=== PATIENT | female | born 1955 | race Caucasian/White ===

== ENCOUNTER 2023-05-03 12:42 | Emergency (ER) | payer MEDICARE, SELFPAY ==
[2023-05-03 12:50] VITALS: BP 169/110; PULSE 67; RESP 20; TEMP 36.6; O2SAT 98; BMI 42.6
--- NOTE | 2023-05-03 12:56 | ED.GENADUL1 ---
HPI - General Adult General Chief complaint: Recheck/Abnormal Lab/Rx Stated complaint: ABNORMAL LAB READING Time Seen by Provider: 05/03/23 12:55 Source: patient Mode of arrival: walk-in History of Present Illness HPI narrative: Was sent to us by her primary care doctor after her blood work-up shows abnormalities but she has been complaining of generalized weakness tiredness and fogginess that is new, there was no acute symptoms of cough fever chills or any other complaint there was no abdominal pain or diarrhea The patient have a history of breast cancer that got treated few years ago no active cancer at the moment showed he had radiation and surgery The patient denies any other complaints She mentioned that she had this weakness noticed when she was having her vacation a week ago Related Data Home Medications Medication Instructions Recorded Confirmed Lactobacillus acidophilus 100 mg PO DAILY 05/03/23 05/03/23 (Acidophilus capsule) ascorbic acid (vitamin C) 500 mg 500 mg PO DAILY 05/03/23 05/03/23 capsule ashwagandha extract PO 05/03/23 biotin 5,000 mcg sublingual tablet 5,000 mcg sublingual DAILY 05/03/23 05/03/23 bupropion HCl 75 mg tablet 75 mg PO DAILY 05/03/23 05/03/23 calcium carb-ergocalciferol (vit tab PO DAILY 05/03/23 D2) 600 mg calcium-200 unit tablet calcium polycarbophil 625 mg 1,250 mg PO DAILY 05/03/23 05/03/23 tablet (Fiber-Lax) cartilage 40 mg-collagen II 10 tab PO DAILY 05/03/23 mg-boron 5 mg-hyaluronate 3.3 mg tablet ([facility]) cholecalciferol (vitamin D3) 25 5,000 unit PO DAILY 05/03/23 05/03/23 mcg (1,000 unit) capsule omeprazole 20 mg capsule,delayed 20 mg PO DAILY 05/03/23 05/03/23 release zinc sulfate 25 mg zinc (110 mg) 25 mg PO DAILY 05/03/23 05/03/23 tablet (Orazinc) Review of Systems ROS Status of ROS 10 or more systems reviewed and unremarkable except as noted in history and below Exam Narrative Exam Narrative: Nurses notes and vital signs reviewed and patient is not hypoxic. General: Well-appearing and in no apparent distress. Skin: Warm, dry, no pallor noted. No rash. Head: Normocephalic, atraumatic. Neck: Supple, non-tender. Eye: Pupils are equal, round and EOMI. No scleral icterus. Ears, Nose, Mouth, and Throat: TM are clear, no nasal mucosal hypertrophy. Oral mucosa is moist, no posterior oropharynx erythema, uvula is mid-line Cardiovascular: Regular Rate and Rhythm without murmur, gallop or rub. Respiratory: No accessory muscle use or respiratory distress. Lungs are clear to auscultation, no wheezing, rales or rhonchi Chest Wall: no tenderness Back: No midline thoracic or lumbar vertebral tenderness. No CVA tenderness Musculoskeletal: normal ROM, no calf or popliteal tenderness, no lower extremity edema/swelling GI: Abdomen is soft, non-distended. Normal bowel sounds. No masses appreciated. No tenderness to palpation. No rebound, guarding, or rigidity noted. Neurological: A&O x4. No cranial nerve dysfunction observed. No truncal ataxia. Moves all extremities. Sensation intact. Psychiatric: Cooperative and interactive. Normal mood and affect. Constitutional Vital Signs, click to edit/add: Last Vital Signs Temp 98 F 05/03/23 12:50 Pulse 78 05/03/23 15:16 Resp 18 05/03/23 15:16 BP 129/98 H 05/03/23 15:16 Pulse Ox 97 05/03/23 15:16 O2 Del Method Room Air 05/03/23 15:16 Course Vital Signs Vital signs: Vital Signs Temperature 98 F 05/03/23 12:50 Pulse Rate 67 05/03/23 12:50 Respiratory Rate 20 05/03/23 12:50 Blood Pressure 169/110 H 05/03/23 12:50 Pulse Oximetry 98 05/03/23 12:50 Temperature 98 F 05/03/23 12:50 Pulse Rate 78 05/03/23 15:16 Respiratory Rate 18 05/03/23 15:16 Blood Pressure 129/98 H 05/03/23 15:16 Pulse Oximetry 97 05/03/23 15:16 Oxygen Delivery Method Room Air 05/03/23 15:16 Medical Decision Making MDM Narrative Medical decision making narrative: The patient presenting to us with generalized weakness and fogginess and shortness of breath on exertion that is the main reason for the patient to come, she already had a blood work-up done yesterday that showed that her hemoglobin dropped from around 12 as per the pt to 8.9 Platelets of 24 and white blood cells of 1.5 and hg is just above 8 I did speak with the hematology service , Dr Sanabria in hematology service was consulted and he requested that the patient be transferred to [facility] as she might need bone marrow biopsy And I spoke with in [facility] and he requested CAT scan head which came up normal The patient orthostatic negative as well Lab Data Labs: Lab Results 05/03/23 05/03/23 Range/Units 13:11 14:36 WBC 1.5 L (4.0-11.0) 10^3/uL RBC 2.36 L (4.20-5.40) 10^6/uL Hgb 8.4 L (12.0-16.0) g/dL Hct 24.8 L (36.0-48.0) % MCV 105.1 H (81.0-99.0) fL MCH 35.6 H (26.7-34.0) pg MCHC 33.9 (29.9-35.2) g/dL RDW 17.7 H (11.0-15.0) % Plt Count 24 L* (150-450) 10^3/uL Seg Neuts % (Manual) 15.0 Lymphocytes % (Manual) 79.0 H (20.5-60.0) % Monocytes % (Manual) 6.0 (1.7-12.0) % Eosinophils % (Manual) 0.0 L (0.9-7.0) % Basophils % (Manual) 0.0 L (0.2-2.0) % Neutrophils # (Manual) 0.22 L (1.4-6.5) 10^3/uL Lymphocytes # (Manual) 1.18 L (1.20-3.80) 10^3/uL Monocytes # (Manual) 0.09 L (0.30-0.80) 10^3/uL Eosinophils # (Manual) 0.00 (0.00-0.70) 10^3/uL Basophils # (Manual) 0.00 (0.00-0.10) 10^3/uL Poikilocytosis 1+ Anisocytosis 1+ Ovalocytes 1+ Acanthocytes (Spur) 1+ PT 10.7 (9.0-11.6) sec INR 1.01 Sodium 134 L (136-145) mmol/L Potassium 3.7 (3.5-5.1) mmol/L Chloride 104 (98-107) mmol/L Carbon Dioxide 26.1 (21.0-32.0) mmol/L Anion Gap 7.6 BUN 16.0 (7.0-18.0) mg/dL Creatinine 1.04 H (0.55-1.02) mg/dL Est GFR ( Amer) >60 (>=60) Est GFR (Non-Af Amer) 53 L (>=60) BUN/Creatinine Ratio 15.4 Glucose 120 H (74-106) mg/dL Calcium 8.9 (8.5-10.1) mg/dL Total Bilirubin 0.3 (0.2-1.0) mg/dL AST 22 (15-37) U/L ALT 40 (14-59) U/L Alkaline Phosphatase 62 (46-116) U/L Troponin I High Sens 4.8 (4.0-51.3) pg/mL Total Protein 7.3 (6.4-8.2) g/dL Albumin 3.9 (3.4-5.0) g/dL Globulin 3.4 g/dL Albumin/Globulin Ratio 1.1 Stool Occult Blood Negative Blood Type O Positive Antibody Screen Negative Discharge Plan Discharge Chief Complaint: Recheck/Abnormal Lab/Rx Clinical Impression: Pancytopenia, Symptomatic anemia Patient Disposition: [facility]
--- NOTE | 2023-05-03 12:57 | ECG_ITS ---
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
--- NOTE | 2023-05-03 13:04 | XR_ITS ---
The [address] [address] Patient Name: NABIL THOMPSON MRN: [id number] date: 1955 Sex: F Assigned Patient Location: ER Current Patient Location: ER Accession/Order Number: [id number] Exam Date: 05/03/2023 13:15 Report Date: 05/03/2023 13:37 At the request of: ELHAM ESTES Procedure: XR chest 1V EXAMINATION: XR chest 1V 05/03/2023 10:36 AM PDT HISTORY: sob TECHNIQUE: Single frontal view of the chest acquired. COMPARISONS: None. FINDINGS: Lines/tubes/other: None. Heart and mediastinum: The heart and the mediastinum are within normal limits for technique. Bones: No acute osseous abnormality. Lungs: The lungs are clear. There is no evidence of pneumonia or pulmonary edema. Pleura: There is no significant pleural effusion or pneumothorax. Other: None. XR/XR chest 1V IMPRESSION: No acute cardiopulmonary abnormality. Electronically authenticated by: BONNY VALLE Date: 05/03/2023 13:37
[2023-05-03 13:24] LABS: Hematocrit 24.8 % (36.0-48.0); Hemoglobin 8.4 g/dL (12.0-16.0); Mean Corpuscular HGB Conc 33.9 g/dL (29.9-35.2); Mean Corpuscular Hemoglobin 35.6 pg (26.7-34.0); Mean Corpuscular Volume 105.1 fL (81.0-99.0); Red Blood Count 2.36 10^6/uL (4.20-5.40); Red Cell Distribution Width 17.7 % (11.0-15.0); White Blood Count 1.5 10^3/uL (4.0-11.0)
[2023-05-03 13:42] LABS: Alanine Aminotransferase 40 U/L (14-59); Albumin Globulin Ratio 1.1; Albumin Level 3.9 g/dL (3.4-5.0); Alkaline Phosphatase 62 U/L (46-116); Anion Gap 7.6; Aspartate Amino Transferase 22 U/L (15-37); BUN Creatinine Ratio 15.4; Bilirubin Total 0.3 mg/dL (0.2-1.0); Calcium 8.9 mg/dL (8.5-10.1); Carbon Dioxide 26.1 mmol/L (21.0-32.0); Chloride 104 mmol/L (98-107); Estimated GFR (African America >60 (>=60); Estimated GFR (Non-African Ame 53 (>=60); Globulin 3.4 g/dL; Glucose 120 mg/dL (74-106); Potassium 3.7 mmol/L (3.5-5.1); Sodium 134 mmol/L (136-145); Total Protein 7.3 g/dL (6.4-8.2); Troponin I High Sensitivity 4.8 pg/mL (4.0-51.3)
[2023-05-03 14:04] LABS: Platelet Count 24 10^3/uL (150-450)
[2023-05-03 14:21] LABS: Lymphocytes Absolute Manual 1.18 10^3/uL (1.20-3.80); Monocytes Absolute Manual 0.09 10^3/uL (0.30-0.80); Segmented Neut Absolute Manual 0.22 10^3/uL (1.4-6.5)
[2023-05-03 14:23] LABS: Acanthocytes 1+; Anisocytosis 1+; Ovalocytes 1+; Poikilocytosis 1+
[2023-05-03 14:38] LABS: INR 1.01; Prothrombin Time 10.7 sec (9.0-11.6)
[2023-05-03 15:16] VITALS: BP 129/98; PULSE 78; RESP 18; O2SAT 97
[2023-05-03 15:28] LABS: Occult Blood Negative
--- NOTE | 2023-05-03 16:02 | CT_ITS ---
The [address] [address] Patient Name: NABIL THOMPSON MRN: [id number] date: 1955 Sex: F Assigned Patient Location: ER Current Patient Location: ER Accession/Order Number: [id number] Exam Date: 05/03/2023 16:21 Report Date: 05/03/2023 16:35 At the request of: ELHAM ESTES Procedure: CT head/brain wo con EXAM: CT head/brain wo con HISTORY: dizziness COMPARISON: None. TECHNIQUE: Axial CT images were obtained of the head without intravenous contrast. Multiplanar reconstructions were performed. FINDINGS: No acute intracranial hemorrhage. No acute loss of rodriguez/white differentiation. The ventricles and sulci are prominent due to mild parenchymal volume loss The osseous structures are unremarkable. No soft tissue abnormality identified. The paranasal sinuses and mastoid air cells are clear. CT/CT head/brain wo con IMPRESSION: 1. No acute intracranial abnormality. 2. Mild atrophy. Electronically authenticated by: NELSON HAWK Date: 05/03/2023 16:35
[2023-05-03 20:49] VITALS: BP 158/93; PULSE 85; RESP 18; O2SAT 97
== END 2023-05-03 22:04 | disposition short-term general hospital (02) ==
PROVIDERS: Emergency Provider Emergency Medicine; PCP Family Medicine
DX: D61.818 Other pancytopenia (principal); D64.9 Anemia, unspecified; Z85.3 Personal history of malignant neoplasm of breast; Z79.899 Other long term (current) drug therapy; R06.02 Shortness of breath
CPT/HCPCS: 36415; 70450; 71045; 80053; 84484; 85027; 85610; 86850; 86900; 86901; 93005; 99285; G0328

== ENCOUNTER 2023-05-11 10:45 | Outpatient (OUT) | payer MEDICARE, SELFPAY ==
[2023-05-11 11:34] LABS: Hemoglobin 8.4 g/dL (12.0-16.0); Mean Corpuscular HGB Conc 35.3 g/dL (29.9-35.2); Mean Corpuscular Volume 99.2 fL (81.0-99.0); Red Cell Distribution Width 18.4 % (11.0-15.0); White Blood Count 1.6 10^3/uL (4.0-11.0)
[2023-05-11 15:43] LABS: Hematocrit 23.8 % (36.0-48.0); Platelet Count 26 10^3/uL (150-450)
[2023-05-11 15:44] LABS: Eosinophils Absolute Manual 0.03 10^3/uL (0.00-0.70); Lymphocytes Absolute Manual 1.37 10^3/uL (1.20-3.80); Monocytes Absolute Manual 0.06 10^3/uL (0.30-0.80); Segmented Neut Absolute Manual 0.12 10^3/uL (1.4-6.5)
[2023-05-11 15:45] LABS: Polychromasia 1+
[2023-05-11 15:46] LABS: Hypochromasia 1+; Poikilocytosis 2+
[2023-05-11 15:47] LABS: Acanthocytes 1+; Anisocytosis 2+; Ovalocytes 1+; Tear Drop Cells 1+
== END 2023-05-11 23:59 | disposition home or self-care (01) ==
PROVIDERS: PCP Family Medicine
DX: C92.00 Acute myeloblastic leukemia, not having achieved remission (principal)
CPT/HCPCS: 36415; 85027

== ENCOUNTER 2023-05-25 10:50 | Day surgery (SDC) | payer MEDICARE, SELFPAY ==
[2023-05-25] VITALS (12 sets, daily range): BP systolic 134–176; BP diastolic 79–98; PULSE 66–82; RESP 10–19; TEMP 36.1–36.2; O2SAT 96–100; BMI 41.5
[2023-05-25 10:50] LABS: Hematocrit 24.5 % (36.0-48.0); Hemoglobin 8.5 g/dL (12.0-16.0); Mean Corpuscular HGB Conc 34.7 g/dL (29.9-35.2); Mean Corpuscular Hemoglobin 35.1 pg (26.7-34.0); Mean Corpuscular Volume 101.2 fL (81.0-99.0); Platelet Count 59 10^3/uL (150-450); Red Blood Count 2.42 10^6/uL (4.20-5.40); Red Cell Distribution Width 18.1 % (11.0-15.0); White Blood Count 1.4 10^3/uL (4.0-11.0)
[2023-05-25 11:39] LABS: Segmented Neut Absolute Manual 0.07 10^3/uL (1.4-6.5)
[2023-05-25 11:40] LABS: Lymphocytes Absolute Manual 1.26 10^3/uL (1.20-3.80); Monocytes Absolute Manual 0.05 10^3/uL (0.30-0.80)
[2023-05-25] MEDS: LACTATED RINGER'S SOLUTION 1,000 ML 50 ML IV (11:40)
[2023-05-25 11:41] LABS: Anisocytosis 1+; Poikilocytosis 1+
[2023-05-25 11:42] LABS: Acanthocytes 1+; Tear Drop Cells 1+
[2023-05-25] MEDS: CEFAZOLIN SODIUM/DEXTROSE,ISO 2 GM/50 ML PIGGYBACK IV (12:51)
[2023-05-25] MEDS: LIDOCAINE HCL 1%-EPINEPHRINE 1:100,000 10 ML MDV INJ (14:08)
--- NOTE | 2023-05-25 15:29 | XR_ITS ---
The [address] [address] Patient Name: NABIL THOMPSON MRN: [id number] date: 1955 Sex: F Assigned Patient [facility] Current Patient Location: [facility] Accession/Order Number: [id number] Exam Date: 05/25/2023 15:45 Report Date: 05/25/2023 15:58 At the request of: PREM HAWTHORNE Procedure: XR chest 1V EXAM: XR chest 1V at 1511 hours HISTORY: port placement COMPARISON: 05/03/2023 TECHNIQUE: AP upright portable chest x-ray FINDINGS: The heart remains borderline enlarged without evidence of cardiac decompensation. No acute infiltrate, effusion or pneumothorax is identified. There has been interval placement of a right internal jugular central venous catheter with the tip projecting over the upper aspect of the superior vena cava. The osseous structures are grossly intact. XR/XR chest 1V IMPRESSION: No acute infiltrate or evidence of cardiac decompensation. The right-sided central venous catheter has been place without an apparent, a process. The overall appearance of the chest is otherwise unchanged. Electronically authenticated by: ROSALIO SON Date: 05/25/2023 15:58
--- NOTE | 2023-05-25 15:34 | P.GSPRC_ITS ---
Date of procedure: 05/25/23 Indications for Procedure: This patient is a 14-year-old female who was recently diagnosed with acute myelogenous leukemia. She was seen by medical oncology and was recommended to initiate chemotherapy and therefore port placement was requested. The risks benefits options and potential complications of the procedure were discussed in detail with the patient and her and she agreed to proceed and consent was signed. Pre-op diagnosis: acute leukemia, need for long-term IV access Post-op diagnosis: same as pre-op Procedure: port placement with fluoroscopy and intraoperative ultrasound Anesthesia: ARACELISA Surgeon: Neville Lagos Procedure Summary: Patient brought to the operating room placed in the supine position. Gen. anesthesia was induced the patient was intubated. The chest and neck area was prepped and draped in usual sterile fashion. Patient received IV antibiotics preoperatively. Access to the right subclavian vein was initially attempted. Patient's clavicle was quite deep and I was unable to pass the needle below this and attempted this only twice with planned access of the right internal jugular vein. Initial attempts with a twenty-two needle were unsuccessful to localize the vein. At this point intraoperative ultrasound was performed. The vein was identified and appeared to be easily collapsible. This subsequently was able to be accessed and a guidewire placed through the access needle into the superior vena cava with fluoroscopy confirming its position. At this point a site in the right chest was infiltrated with one percent lidocaine with epinephrine. An incision was made and a subcutaneous change pocket for the port reservoir was created with cautery and blunt dissection. The port was then placed into this subcutaneous pocket. A small incision is made at the wire exit site. A tunneling device brought the port catheter from the chest incision out through the neck incision. The catheter was then cut to appropriate length. At this point the dilator and tear-away sheath were placed over the guidewire and advanced. Once again due to a very difficult steep angle I was unable to pass the dilator over the wire. We then obtained a smaller stiffer dilator from a triple-lumen kit which I was able to pass its entire length over the wire passed dilating the tract to some degree. We then obtained a new dilator from a 2nd port kit and this time I was able to advance the dilator completely to its length over the wire. The wire and dilator were then removed and the catheter threaded into the tear-away sheath. The sheath was gradually withdrawn the catheter appearing to be in proper position. I then accessed the port and unfortunately there was no blood return and it did not flush. Using fluoroscopy there appeared to be possibly a slight kink in the neck region. I attempted to loosen this at the neck site. This was unsuccessful. I removed the port from the subcutaneous po cket and retracted the catheter a couple centimeters. I then accessed the port and at this time good blood return and easy flush was noted. We then shortened the catheter at the reservoir site and placed it back into the subcutaneous pocket. Once again we accessed it with good blood return and it flushed easily. The subcutaneous tissue of the chest incision was reapproximated with interrupted sutures of 3-0 Vicryl. The neck incision was closed with interrupted sutures of 4-0 Vicryl. Subcuticular running sutures were placed in the chest incision of 4-0 Vicryl. Sponge and needle instrument counts were correct at the end of the procedure. The patient tolerated the procedure well and was transferred to the recovery area where a chest x-ray will be obtained. Estimated blood loss (mL): 15 Specimens: none Complications: No
[2023-05-25] MEDS: ACETAMINOPHEN 1,000 MG/100 ML PREMIX 400 MG IV (16:21)
== END 2023-05-25 17:37 | disposition home or self-care (01) ==
LOC: SURGOUT 05-28 08:39
PROVIDERS: Anesthesiology; PCP Family Medicine; Visit Provider Surgery
PROC: (CPT 36561; principal; 2023-05-25 10:15)
DX: C92.00 Acute myeloblastic leukemia, not having achieved remission (principal); Z79.899 Other long term (current) drug therapy; Z90.710 Acquired absence of both cervix and uterus; Z85.3 Personal history of malignant neoplasm of breast; D61.818 Other pancytopenia; C92.92 Myeloid leukemia, unspecified in relapse
CPT/HCPCS: 36561; 36415; 36430; 71045; 76000; 85027; 99211; C1778; J2704; P9038

== ENCOUNTER 2023-05-27 08:42 | Emergency (ER) | payer MEDICARE, SELFPAY ==
[2023-05-27] VITALS (19 sets, daily range): BP systolic 130–160; BP diastolic 79–92; PULSE 61–86; RESP 12–26; TEMP 36.7; O2SAT 92–99; BMI 42.3
--- NOTE | 2023-05-27 08:57 | ECG_ITS ---
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
--- NOTE | 2023-05-27 08:57 | XR_ITS ---
The [address] [address] Patient Name: NABIL THOMPSON MRN: [id number] date: 1955 Sex: F Assigned Patient Location: ER Current Patient Location: ER Accession/Order Number: [id number] Exam Date: 05/27/2023 09:05 Report Date: 05/27/2023 09:36 At the request of: SHERMAN PUCKETT Procedure: XR chest 1V HISTORY: General body pain and Weakness. Status post port placement. XR chest 1V: 05/27/2023 9:05 AM EDT COMPARISON: Portable AP chest 05/25/2023 at 3:11 PM FINDINGS: The heart appears negative limits of normal in size allowing for the portable technique. No focal consolidation, pleural effusion, pneumothorax or evidence of congestive heart failure seen. Mild elevation of the right hemidiaphragm is again seen. A right internal jugular port catheter is again seen. The tip of this catheter has pulled back slightly since the prior study and appears to be probably coiled in the region of the right internal jugular vein in the supraclavicular region. XR/XR chest 1V IMPRESSION: 1. The tip of the right internal jugular port catheter has pulled back since the prior study and now appears to be in an abnormal position and is probably coiled in the region of the right internal jugular vein in the supraclavicular region. 2. No radiographic evidence of active cardiopulmonary disease is seen. Electronically authenticated by: COURT MCCURDY Date: 05/27/2023 09:36
--- NOTE | 2023-05-27 08:58 | ED.WEAKNESS1 ---
HPI - Weakness General Chief complaint: Weakness Stated complaint: GENERAL WEAKNESS Time Seen by Provider: 05/27/23 08:45 Source: patient Mode of arrival: walk-in Limitations: no limitations History of Present Illness HPI Narrative: 67-year-old female presents to the emergency department for weakness. 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 She is scheduled to start chemotherapy tomorrow. Last week she had blood transfusion and a platelet transfusion. No fever. No cough or shortness of breath or chest pain. She feels stiff. Related Data Home Medications Medication Instructions Recorded Confirmed Lactobacillus acidophilus 100 mg PO DAILY 05/03/23 05/03/23 (Acidophilus capsule) ascorbic acid (vitamin C) 500 mg 500 mg PO DAILY 05/03/23 05/25/23 capsule ashwagandha extract PO 05/03/23 biotin 5,000 mcg sublingual tablet 5,000 mcg sublingual DAILY 05/03/23 05/03/23 bupropion HCl 75 mg tablet 75 mg PO DAILY 05/03/23 05/03/23 calcium carb-ergocalciferol (vit tab PO DAILY 05/03/23 D2) 600 mg calcium-200 unit tablet calcium polycarbophil 625 mg 1,250 mg PO DAILY 05/03/23 05/03/23 tablet (Fiber-Lax) cartilage 40 mg-collagen II 10 tab PO DAILY 05/03/23 mg-boron 5 mg-hyaluronate 3.3 mg tablet ([facility]) cholecalciferol (vitamin D3) 25 5,000 unit PO DAILY 05/03/23 05/03/23 mcg (1,000 unit) capsule omeprazole 20 mg capsule,delayed 20 mg PO DAILY 05/03/23 05/25/23 release zinc sulfate 25 mg zinc (110 mg) 25 mg PO DAILY 05/03/23 05/03/23 tablet (Orazinc) acyclovir 400 mg tablet 400 mg PO BID 05/25/23 05/25/23 ciprofloxacin HCl 500 mg tablet 500 mg PO BID 05/25/23 05/25/23 (Cipro) Previous Rx's Medication Instructions Recorded acetaminophen 300 mg-codeine 30 mg 1 tab PO Q6H PRN pain #20 tabs 05/27/23 tablet ondansetron 4 mg disintegrating 4 mg PO Q6H PRN nausea and 05/27/23 tablet vomiting #20 tabs Allergies Allergy/AdvReac Type Severity Reaction Status Date / Time acetaminophen [From Vicodin] AdvReac Verified 05/25/23 10:40 hydrocodone [From Vicodin] AdvReac Verified 05/25/23 10:40 [facility] Medical History (Updated 05/27/23 @ 11:49 by Jay Hendricks MD) Surgical History (Updated 05/24/23 @ 15:05 by Steffanie Rutherford) Family History (Updated 05/24/23 @ 15:07 by Steffanie Rutherford) Father Family history of cancer Family history of hypertension Mother Family history of hypertension Grandfather Family history of cancer Grandmother Family history of cancer Aunt Family history of cancer Social History (Updated 05/25/23 @ 10:37 by John Galindo) Within the past year, how often did you have a drink containing alcohol: monthly or less Within the past year, how many standard drinks containing alcohol did you have on a typical day: 1 or 2 Total score: 0 Score interpretation: A score less than 3 is consistent with normal alcohol consumption. Smoking status: Never smoker Exam Narrative Exam Narrative: Nurses note and vital signs reviewed and patient is not hypoxic. General: The patient appears well and in no apparent distress. Patient is resting comfortably on cart. Skin: Warm, dry, no pallor noted. There is no rash noted. Head: Normocephalic, atraumatic Eye: Normal conjunctiva, no drainage Ears, Nose, Mouth, and Throat: oral mucosa is moist. Nares patent. Cardiovascular: Regular Rate and Rhythm Respiratory: Patient is in no distress, no accessory muscle use, lungs are clear to auscultation, no wheezing, rales or rhonchi, port site appears clean without erythema Back: non-tender GI: soft and nontender Musculoskeletal: The patient has no evidence of calf tenderness, no pitting edema, symmetrical pulses noted bilaterally Neurological: A&O, normal speech Psychiatric: Cooperative Constitutional Vital Signs, click to edit/add: Last Vital Signs Temp 98.1 F 05/27/23 08:45 Pulse 66 05/27/23 11:40 Resp 23 05/27/23 11:40 BP 130/81 05/27/23 11:00 Pulse Ox 99 05/27/23 11:40 O2 Del Method Room Air 05/27/23 08:57 Course Vital Signs Vital signs: Vital Signs Temperature 98.1 F 05/27/23 08:45 Pulse Rate 86 05/27/23 08:45 Respiratory Rate 18 05/27/23 08:45 Blood Pressure 160/80 H 05/27/23 08:45 Pulse Oximetry 98 05/27/23 08:45 Oxygen Delivery Method Room Air 05/27/23 08:45 Temperature 98.1 F 05/27/23 08:45 Pulse Rate 66 05/27/23 11:40 Respiratory Rate 23 05/27/23 11:40 Blood Pressure 130/81 05/27/23 11:00 Pulse Oximetry 99 05/27/23 11:40 Oxygen Delivery Method Room Air 05/27/23 08:57 MDM - Weakness MDM Narrative Medical decision making narrative: Hemoglobin is 7.7 and platelet count is thirty-four. It appears that the tip of her porch has migrated to the supraclavicular internal jugular vein. This finding was discussed with the patient and her . I've discussed the case with her oncologist. She'll be discharged home today and she will come back tomorrow for her 1st round of chemotherapy. I've explained to the patient that they may need to use a peripheral IV for the chemotherapy. She does not require admission to the hospital at this point. Treatment diagnosis and follow-up were discussed thoroughly. Differential Diagnosis Differential diagnosis: Likely anemia, hypoglycemia, dehydration and other (urinary tract infection, pneumonia) Lab Data Attestation: I reviewed the patient's lab results. Labs: Lab Results 05/27/23 05/27/23 Range/Units 08:50 09:57 WBC 1.4 L (4.0-11.0) 10^3/uL RBC 2.19 L (4.20-5.40) 10^6/uL Hgb 7.7 L (12.0-16.0) g/dL Hct 22.2 L* (36.0-48.0) % MCV 101.4 H (81.0-99.0) fL MCH 35.2 H (26.7-34.0) pg MCHC 34.7 (29.9-35.2) g/dL RDW 19.2 H (11.0-15.0) % Plt Count 31 L (150-450) 10^3/uL MPV 11.0 (9.5-13.5) fL Seg Neuts % (Manual) Not Reportable Lymphocytes % (Manual) Not Reportable Monocytes % (Manual) Not Reportable Eosinophils % (Manual) Not Reportable Basophils % (Manual) Not Reportable Neutrophils # (Manual) 16.00 H (1.4-6.5) 10^3/uL Lymphocytes # (Manual) 80.00 H (1.20-3.80) 10^3/uL Monocytes # (Manual) 4.00 H (0.30-0.80) 10^3/uL Eosinophils # (Manual) 0.00 (0.00-0.70) 10^3/uL Basophils # (Manual) 0.00 (0.00-0.10) 10^3/uL Hypochromasia 1+ Anisocytosis 2+ Macrocytosis 1+ Sodium 143 (136-145) mmol/L Potassium 3.4 L (3.5-5.1) mmol/L Chloride 107 (98-107) mmol/L Carbon Dioxide 27.2 (21.0-32.0) mmol/L Anion Gap 12.2 BUN 20.0 H (7.0-18.0) mg/dL Creatinine 0.99 (0.55-1.02) mg/dL Est GFR ( Amer) >60 (>=60) Est GFR (Non-Af Amer) 56 L (>=60) BUN/Creatinine Ratio 20.2 Glucose 103 (74-106) mg/dL Calcium 8.6 (8.5-10.1) mg/dL Urine Color Lt. yellow (YELLOW) Urine Clarity Clear (CLEAR) Urine pH 6.0 (5.0-9.0) Ur Specific [place] 1.010 (1.005-1.025) Urine Protein Negative (NEG/TRACE) mg/dL Urine Glucose (UA) Negative (NEGATIVE) mg/dL Urine Ketones Negative (NEGATIVE) mg/dL Urine Occult Blood Negative (NEGATIVE) Urine Nitrite Negative (NEGATIVE) Urine Bilirubin Negative (NEGATIVE) Urine Urobilinogen 0.2 (0.2-1.0) EU/dL Ur Leukocyte Esterase Negative (NEGATIVE) Urine RBC None seen (0-2) #/HPF Urine WBC None seen (NONE SEEN) #/HPF Ur Squamous Epith Cells Rare (NONE/RARE) #/LPF Urine Crystals None seen (None Seen) #/HPF Urine Bacteria None seen (NONE SEEN) #/HPF Urine Casts None seen (NONE SEEN) #/LPF Urine Mucus None seen (NONE SEEN) Ur Culture Indicated? No Imaging Data Chest x-ray: Radiologist's impression: Procedure: XR chest 1V HISTORY: General body pain and Weakness. Status post port placement. XR chest 1V: 05/27/2023 9:05 AM EDT COMPARISON: Portable AP chest 05/25/2023 at 3:11 PM FINDINGS: The heart appears negative limits of normal in size allowing for the portable technique. No focal consolidation, pleural effusion, pneumothorax or evidence of congestive heart failure seen. Mild elevation of the right hemidiaphragm is again seen. A right internal jugular port catheter is again seen. The tip of this catheter has pulled back slightly since the prior study and appears to be probably coiled in the region of the right internal jugular vein in the supraclavicular region. IMPRESSION: 1. The tip of the right internal jugular port catheter has pulled back since the prior study and now appears to be in an abnormal position and is probably coiled in the region of the right internal jugular vein in the supraclavicular region. 2. No radiographic evidence of active cardiopulmonary disease is seen. Electronically authenticated by: COURT MCCURDY Date: 05/27/2023 09:36 Discharge Plan Discharge Chief Complaint: Weakness Clinical Impression: Anemia, Thrombocytopenia, Generalized pain Patient Disposition: Home, Self-Care Time of Disposition Decision: 11:45 Condition: Good Mode of Transportation: Private Vehicle Prescriptions / Home Meds: New acetaminophen-codeine 300-30 mg tablet 1 tab PO Q6H PRN (Reason: pain) Qty: 20 0RF ondansetron 4 mg tablet,disintegrating 4 mg PO Q6H PRN (Reason: nausea and vomiting) Qty: 20 0RF No Action ascorbic acid (vitamin C) 500 mg capsule 500 mg PO DAILY Hold Instructions: hold ashwagandha extract capsule PO Hold Instructions: hold biotin 5,000 mcg tablet, sublingual 5,000 mcg sublingual DAILY bupropion HCl 75 mg tablet 75 mg PO DAILY calcium carbonate-vitamin D2 600 mg calcium- 200 unit tablet PO DAILY cholecalciferol (vitamin D3) 25 mcg (1,000 unit) capsule 5,000 unit PO DAILY Acidophilus Capsule 100 mg PO DAILY [facility] 40-10-5-3.3 mg tablet PO DAILY omeprazole 20 mg capsule,delayed release(DR/EC) 20 mg PO DAILY calcium polycarbophil [Fiber-Lax] 625 mg tablet 1,250 mg PO DAILY Orazinc 25 mg zinc (110 mg) tablet 25 mg PO DAILY acyclovir 400 mg tablet 400 mg PO BID ciprofloxacin HCl [Cipro] 500 mg tablet 500 mg PO BID Instructions: Anemia (ED), Thrombocytopenia (ED) Stand Alone Forms: Portal Instructions Referrals: PEDRO PIERCE [Primary Care Provider] - 1 week
[2023-05-27 09:11] LABS: Anion Gap 12.2; BUN Creatinine Ratio 20.2; Calcium 8.6 mg/dL (8.5-10.1); Carbon Dioxide 27.2 mmol/L (21.0-32.0); Chloride 107 mmol/L (98-107); Estimated GFR (African America >60 (>=60); Estimated GFR (Non-African Ame 56 (>=60); Glucose 103 mg/dL (74-106); Hemoglobin 7.7 g/dL (12.0-16.0); Mean Corpuscular HGB Conc 34.7 g/dL (29.9-35.2); Mean Corpuscular Hemoglobin 35.2 pg (26.7-34.0); Mean Corpuscular Volume 101.4 fL (81.0-99.0); Platelet Count 31 10^3/uL (150-450); Potassium 3.4 mmol/L (3.5-5.1); Red Blood Count 2.19 10^6/uL (4.20-5.40); Red Cell Distribution Width 19.2 % (11.0-15.0); Sodium 143 mmol/L (136-145); White Blood Count 1.4 10^3/uL (4.0-11.0)
[2023-05-27 09:19] LABS: Hematocrit 22.2 % (36.0-48.0)
[2023-05-27 09:25] LABS: Anisocytosis 2+; Macrocytosis 1+
[2023-05-27 09:26] LABS: Hypochromasia 1+
[2023-05-27 10:05] LABS: Bilirubin Urine NEGATIVE (NEGATIVE); Blood Urine NEGATIVE (NEGATIVE); Clarity Urine CLEAR (CLEAR); Color Urine LT. YELLOW (YELLOW); Glucose Urine UA NEGATIVE (NEGATIVE); Ketones Urine NEGATIVE (NEGATIVE); Leukocyte Esterase Urine NEGATIVE (NEGATIVE); Nitrite Urine NEGATIVE (NEGATIVE); Protein Urine NEGATIVE (NEG/TRACE); Urobilinogen Urine 0.2 EU/dL (0.2-1.0)
[2023-05-27 10:10] LABS: Bacteria Urine NONE SEEN #/HPF (NONE SEEN); Crystals Seen? None Seen #/HPF (None Seen); Mucus Urine NONE SEEN (NONE SEEN); RBC Urine NONE SEEN #/HPF (0-2); Squamous Epithelial Cell Urine RARE #/LPF (NONE/RARE); WBC Urine NONE SEEN #/HPF (NONE SEEN)
[2023-05-27 10:11] LABS: Cast Seen? NONE SEEN #/LPF (NONE SEEN); Urine Culture Indicated NO
[2023-05-27] MEDS: 0.9 % SODIUM CHLORIDE 1,000 ML 1000 ML IV (10:20)
[2023-05-27] MEDS: MORPHINE SULFATE 4 MG/ML VIAL IV (10:21)
== END 2023-05-27 12:12 | disposition home or self-care (01) ==
PROVIDERS: Emergency Provider Emergency Medicine; PCP Family Medicine
DX: D64.9 Anemia, unspecified (principal); D69.6 Thrombocytopenia, unspecified; R52 Pain, unspecified; C92.00 Acute myeloblastic leukemia, not having achieved remission; Z79.899 Other long term (current) drug therapy
CPT/HCPCS: 36415; 71045; 80048; 81001; 85027; 93005; 96374; 99285

== ENCOUNTER 2023-05-28 07:33 | Outpatient (RCR) | payer MEDICARE, SELFPAY ==
[2023-05-22 11:51] LABS: Hemoglobin 8.9 g/dL (12.0-16.0); Mean Corpuscular HGB Conc 35.6 g/dL (29.9-35.2); Mean Corpuscular Hemoglobin 36.8 pg (26.7-34.0); Mean Corpuscular Volume 103.3 fL (81.0-99.0); Red Blood Count 2.42 10^6/uL (4.20-5.40); White Blood Count 1.5 10^3/uL (4.0-11.0)
[2023-05-22 11:57] LABS: Platelet Count 15 10^3/uL (150-450)
[2023-05-22 11:59] LABS: Alanine Aminotransferase 18 U/L (14-59); Albumin Globulin Ratio 1.1; Alkaline Phosphatase 66 U/L (46-116); Anion Gap 14.2; Aspartate Amino Transferase 15 U/L (15-37); BUN Creatinine Ratio 16.3; Bilirubin Total 0.4 mg/dL (0.2-1.0); Calcium 8.8 mg/dL (8.5-10.1); Carbon Dioxide 24.5 mmol/L (21.0-32.0); Chloride 105 mmol/L (98-107); Estimated GFR (African America >60 (>=60); Estimated GFR (Non-African Ame >60 (>=60); Globulin 3.5 g/dL; Glucose 109 mg/dL (74-106); Lactate Dehydrogenase 188 U/L (81-234); Potassium 3.7 mmol/L (3.5-5.1); Sodium 140 mmol/L (136-145); Total Protein 7.5 g/dL (6.4-8.2); Uric Acid 4.1 mg/dL (2.6-6.0)
[2023-05-22 12:55] LABS: Atypical Lymphocytes Abs Man 0.2; Eosinophils Absolute Manual 0.01 10^3/uL (0.00-0.70); Lymphocytes Absolute Manual 1.23 10^3/uL (1.20-3.80); Monocytes Absolute Manual 0.03 10^3/uL (0.30-0.80); Segmented Neut Absolute Manual 0.07 10^3/uL (1.4-6.5)
[2023-05-22 12:56] LABS: Anisocytosis 2+; Hypochromasia 2+; Macrocytosis 1+
[2023-05-22 12:57] LABS: Ovalocytes 1+; Poikilocytosis 1+
[2023-05-23 05:07] LABS: HBsAg Screen Negative (Negative); Hep B Core Ab, Tot Negative (Negative); Hep B Surface Ab Non Reactive (.)
[2023-05-24] MEDS: ACETAMINOPHEN 325 MG TABLET 650 MG PO (12:32)
[2023-05-24] MEDS: DIPHENHYDRAMINE HCL 25 MG CAPSULE PO (12:33)
[2023-05-24] MEDS: 0.9 % SODIUM CHLORIDE 250 ML 20 ML IV (12:35)
[2023-05-24 12:58] VITALS: BP 149/88; PULSE 85; RESP 16; TEMP 36.6; O2SAT 95
[2023-05-24 13:56] VITALS: BP 124/78; PULSE 73; RESP 16; TEMP 36.8; O2SAT 98
[2023-05-24 14:55] VITALS: BP 149/88; PULSE 87; RESP 16; TEMP 36.9; O2SAT 95
--- NOTE | 2023-05-24 14:55 | PC.NURSE ---
1210: Pt. to [facility] amb. accompanied by . Seated in recliner. VSS. #22 gauge IV initiated to right AC on first attempt without difficulty. Flushes easily with good blood return. Pt. tolerated without c/o. Pt. given water and warm blanket. Consent obtained for platelet infusion. Pt. denies questions. 1301: First unit platelets initiated at this time. 1316: Pt. without s&s of transfusion reaction. Denies needs or c/o. Chemo teach done at this time. Both patient and relay understanding. Multiple questions addressed. Consent for chemo will be obtained on Sunday05/28/2023. Pt. education packet provided regarding medications, chemotherapy, potential adverse reactions and information on supportive care. 1346: First unit platelets completed without s&s of reaction. VSS. 1400: Second unit platelets initiated at this time. Pt. teaching continues. More questions addressed. 1448: Second unit platelets completed without s&s of reaction. VSS. Blood drawn from IV for ordered labs. IV d/c'd, pressure to site. 1455: Pt. without c/o. Pt. d/c'd amb. to home with .
[2023-05-24 15:11] LABS: Eosinophils Percent Auto 0.7 % (0.9-7.0); Lymphocytes Absolute Auto 1.1 10^3/uL (1.2-3.8); Lymphocytes Percent Auto 75.3 % (20.5-60.0); Mean Corpuscular HGB Conc 34.7 g/dL (29.9-35.2); Mean Corpuscular Hemoglobin 36.1 pg (26.7-34.0); Mean Corpuscular Volume 103.8 fL (81.0-99.0); Mean Platelet Volume 9.6 fL (9.5-13.5); Monocytes Absolute Auto 0.1 10^3/uL (0.3-0.8); Monocytes Percent Auto 3.4 % (1.7-12.0); Neutrophils Absolute Auto 0.3 10^3/uL (1.4-6.5); Neutrophils Percent Auto 20.6 % (43.0-75.0); Platelet Count 48 10^3/uL (150-450); Red Blood Count 1.83 10^6/uL (4.20-5.40); Red Cell Distribution Width 18.1 % (11.0-15.0); White Blood Count 1.5 10^3/uL (4.0-11.0)
[2023-05-24 16:46] LABS: Hemoglobin 6.6 g/dL (12.0-16.0)
[2023-05-25] MEDS: ACETAMINOPHEN 325 MG TABLET 650 MG PO (07:54)
[2023-05-25] MEDS: 0.9 % SODIUM CHLORIDE 250 ML 20 ML IV (07:54)
[2023-05-25] MEDS: DIPHENHYDRAMINE HCL 25 MG CAPSULE PO (07:54)
[2023-05-25 08:15] VITALS: BP 136/84; PULSE 84; RESP 18; TEMP 36.6; O2SAT 93
[2023-05-25 08:17] VITALS: BP 136/84; PULSE 84; RESP 18; TEMP 36.6; O2SAT 93
[2023-05-25 08:31] VITALS: BP 139/78; PULSE 74; RESP 18; TEMP 36.9; O2SAT 95
[2023-05-25 09:29] VITALS: BP 132/82; RESP 18; TEMP 36.8; O2SAT 94
--- NOTE | 2023-05-25 10:35 | PC.NURSE ---
unit of irradiated PRBC's initiated at 0800 and transfusion completed [id number]. blood product verified per protocol per jigna/roberto unable to get TAR to initiate transfusion. all vital signs obtained per protocol, see vs section. patient tolerated transfusion without any problems. Lungs clear throughout posteriorly. IV to SLF and released by wheelchair to PACU.
== END 2023-06-02 23:59 | disposition home or self-care (01) ==
LOC: INF 07:33
PROVIDERS: PCP Family Medicine; Visit Provider Internal Medicine Hematology & Oncology
DX: C92.00 Acute myeloblastic leukemia, not having achieved remission (principal); D61.818 Other pancytopenia
CPT/HCPCS: 36415; 36430; 80053; 83615; 84550; 85025; 85027; 86704; 86706; 86850; 86900; 86901; 87340; 99195; 99211; G0463; P9035; P9038

== ENCOUNTER 2023-06-18 09:29 | Inpatient (IN) | payer MEDICARE, SELFPAY ==
[2023-06-18] VITALS (9 sets, daily range): BP systolic 120–162; BP diastolic 68–101; PULSE 66–82; RESP 18–20; TEMP 36.3–36.7; O2SAT 93–97; BMI 41.6; BMI 41.4
[2023-06-18 09:59] LABS: Bilirubin Urine NEGATIVE (NEGATIVE); Blood Urine TRACE-I (NEGATIVE); Clarity Urine CLEAR (CLEAR); Color Urine LT. YELLOW (YELLOW); Glucose Urine UA NEGATIVE (NEGATIVE); Ketones Urine NEGATIVE (NEGATIVE); Leukocyte Esterase Urine NEGATIVE (NEGATIVE); Nitrite Urine NEGATIVE (NEGATIVE); Protein Urine NEGATIVE (NEG/TRACE); Specific Gravity Urine 1.015 (1.005-1.025); Urobilinogen Urine 0.2 EU/dL (0.2-1.0); pH Urine 6.5 (5.0-9.0)
[2023-06-18 10:02] LABS: Urine Microscopic Indicated YES
--- NOTE | 2023-06-18 10:03 | CT_ITS ---
[address] [address] Patient Name: NABIL THOMPSON MRN: [id number] date: 1955 Sex: F Assigned Patient Location: ER Current Patient Location: ER Accession/Order Number: [id number] Exam Date: 06/18/2023 10:30 Report Date: 06/18/2023 11:39 At the request of: NICOLE BREAUX Procedure: CT abdomen pelvis w con EXAM: CT abdomen pelvis w con HISTORY: left lower quadrant pain rule out diverticulitis COMPARISON: None. TECHNIQUE: Axial CT images were obtained of the abdomen and pelvis with intravenous contrast. Multiplanar reconstructions were performed. ABDOMEN/PELVIS FINDINGS: Lower Chest: Unremarkable. Liver: Normal enhancement and contour. There is a tiny cyst in the left hepatic lobe. Biliary/Gallbladder: Numerous gallstones are present in the gallbladder lumen. Pancreas: Unremarkable. Spleen: Unremarkable. Adrenal Glands: Unremarkable. Kidneys: There is a punctate nonobstructive calculus in the left kidney. Gastrointestinal/Peritoneum: No acute abnormality. Mild colonic diverticulosis is present. The appendix is unremarkable. No free air or free fluid. Vascular: Unremarkable. Lymph Nodes: No enlarged lymph nodes by CT size criteria. Pelvic Organs: Unremarkable. Bladder: Unremarkable. Bones: No acute osseous abnormality. 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 Moderate degenerative changes are present at L5-S1. There is a mild chronic vertebral compression fracture at the superior endplate of T12. Soft tissues: Unremarkable. CT/CT abdomen pelvis w con IMPRESSION: 1. No acute abnormality of the abdomen and pelvis. 2. Cholelithiasis. 3. Punctate nonobstructive calculus in the left kidney. 4. Mild colonic diverticulosis. 5. 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 Electronically authenticated by: NELSON HAWK Date: 06/18/2023 11:39
--- NOTE | 2023-06-18 10:04 | ED_ITS ---
HPI - Abdominal Pain General Chief Complaint: Abdominal Pain Stated Complaint: ABDOMINAL PAIN Time Seen by Provider: 06/18/23 10:03 Source: patient and family Mode of arrival: walk-in Limitations: no limitations History of Present Illness HPI narrative: patient's here for evaluation of left lower quadrant pain. Began yesterday. She currently is undergoing treatment for AML at the [facility]. Our local oncologist also follows her clinically. She has routine outpatient lab and her white blood cell count today is 1.1. Last it was actually low but lower. Her hemoglobin today is 8.3. Platelet count is six. She has had several colonoscopies in the past and has a history of diverticular disease. She is not vomiting or having diarrhea. Normal bowel movements were noted. She's not seen any blood. She also has had left breast cancer. She currently has a PICC line in the right arm does placed by the [facility]. A port had been placed here but it had to be removed. She is not had a surgery on her abdomen previously. After further discussion the family disclosed that she's been taking Levaquin since she had her port removed the [facility]. I was not aware that when we initiated Cipro therapy. Related Data Home Medications Medication Instructions Recorded Confirmed bupropion HCl 75 mg tablet 75 mg PO DAILY 05/03/23 06/18/23 omeprazole 20 mg capsule,delayed 20 mg PO DAILY 05/03/23 06/18/23 release acyclovir 400 mg tablet 400 mg PO BID 05/25/23 06/18/23 levofloxacin 500 mg tablet 500 mg PO DAILY 06/18/23 06/18/23 olanzapine 2.5 mg tablet 2.5 mg PO DAILY 06/18/23 06/18/23 posaconazole 100 mg tablet,delayed 300 mg PO DAILY 06/18/23 06/18/23 release (Noxafil) Previous Rx's Medication Instructions Recorded acetaminophen 300 mg-codeine 30 mg 1 tab PO Q6H PRN pain #20 tabs 05/27/23 tablet ondansetron 4 mg disintegrating 4 mg PO Q6H PRN nausea and 05/27/23 tablet vomiting #20 tabs Allergies Allergy/AdvReac Type Severity Reaction Status Date / Time acetaminophen [From Vicodin] AdvReac Verified 05/25/23 10:40 hydrocodone [From Vicodin] AdvReac Verified 05/25/23 10:40 [facility] Medical History (Updated 06/18/23 @ 12:45 by Lenin Jc MD) History of blood transfusion ?Z92.89 - Personal history of other medical treatment (ICD-10) 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 - Intraductal carcinoma in situ of left breast (ICD-10) Myeloid leukemia ?C92.90 - Myeloid leukemia, unspecified, not having achieved remission (ICD- 10) Pancytopenia ?D61.818 - Other pancytopenia (ICD-10) Symptomatic anemia ?D64.9 - Anemia, unspecified (ICD-10) Surgical History (Updated 05/24/23 @ 15:05 by Steffanie Rutherford) History of bone marrow biopsy ?Z98.890 - Other specified postprocedural states (ICD-10) History of hysterectomy ?Z90.710 - Acquired absence of both cervix and uterus (ICD-10) S/P excision of lipoma ?Z98.890 - Other specified postprocedural states (ICD-10) ?Z86.018 - Personal history of other benign neoplasm (ICD-10) Family History (Updated 05/24/23 @ 15:07 by Steffanie Rutherford) Father Family history of cancer Family history of hypertension Mother Family history of hypertension Grandfather Family history of cancer Grandmother Family history of cancer Aunt Family history of cancer Social History (Updated 05/25/23 @ 10:37 by John Galindo) Within the past year, how often did you have a drink containing alcohol: monthly or less Within the past year, how many standard drinks containing alcohol did you have on a typical day: 1 or 2 Total score: 0 Score interpretation: A score less than 3 is consistent with normal alcohol consumption. Smoking status: Never smoker Exam Narrative Exam Narrative: awake alert good historian as is her . She does not appear ill or toxic. She does have discomfort when she lies down to the left lower quadrant. Constitutional asscleral icterus but there is mild pallor of the conjunctival areas. He has memories are moist and pink. Neck is soft and supple no meningeal irritation she has no neck pain. Respiratory her lungs are clear with no wheeze rales rhonchi or labored respiratory effort. Heart sounds are normal no click rub or murmur. Abdomen no surgical incisions are noted. There is no peritoneal findings but she does have mild to moderate tenderness to palpation left lower quadrant. The bowel sounds are noted. Extremities show no evidence of cellulitis or other infectious process. Constitutional Vital Signs, click to edit/add: Last Vital Signs Temp 97.4 F L 06/18/23 09:32 Pulse 82 06/18/23 09:32 Resp 20 06/18/23 09:32 BP 162/92 H 06/18/23 11:05 Pulse Ox 97 06/18/23 09:32 Course Vital Signs Vital signs: Vital Signs Temperature 97.4 F L 06/18/23 09:32 Pulse Rate 82 06/18/23 09:32 Respiratory Rate 20 06/18/23 09:32 Blood Pressure 120/101 H 06/18/23 09:32 Pulse Oximetry 97 06/18/23 09:32 Temperature 97.4 F L 06/18/23 09:32 Pulse Rate 82 06/18/23 09:32 Respiratory Rate 20 06/18/23 09:32 Blood Pressure 162/92 H 06/18/23 11:05 Pulse Oximetry 97 06/18/23 09:32 MDM - Abdominal Pain MDM Narrative Medical decision making narrative: this patient presents with history of AML and currently has severe neutropenia and thrombocytopenia. I spoke with her local oncologist Dr. Ansari here and I also spoke with the on-call hospitalist. We've tried calling the [facility] to consider transfer to that facility but they have no beds available for several days. She was started on IV antibiotic therapy here in the Emergency Room. She is in agreement the treatment recommendations. Lab Data Labs: Lab Results 06/18/23 Range/Units 09:41 Urine Color Lt. yellow (YELLOW) Urine Clarity Clear (CLEAR) Urine pH 6.5 (5.0-9.0) Ur Specific [place] 1.015 (1.005-1.025) Urine Protein Negative (NEG/TRACE) mg/dL Urine Glucose (UA) Negative (NEGATIVE) mg/dL Urine Ketones Negative (NEGATIVE) mg/dL Urine Occult Blood Trace-i (NEGATIVE) Urine Nitrite Negative (NEGATIVE) Urine Bilirubin Negative (NEGATIVE) Urine Urobilinogen 0.2 (0.2-1.0) EU/dL Ur Leukocyte Esterase Negative (NEGATIVE) Urine RBC 0-2 (0-2) #/HPF Urine WBC None seen (NONE SEEN) #/HPF Ur Squamous Epith Cells Few A (NONE/RARE) #/LPF Urine Crystals None seen (None Seen) #/HPF Urine Bacteria Trace A (NONE SEEN) #/HPF Urine Casts None seen (NONE SEEN) #/LPF Urine Mucus None seen (NONE SEEN) Ur Culture Indicated? No Discharge Plan Discharge Chief Complaint: Abdominal Pain Clinical Impression: AML (acute myeloblastic leukemia), Abdominal pain Patient Disposition: Admitted as Observation Time of Disposition Decision: 12:45 Prescriptions / Home Meds: No Action bupropion HCl 75 mg tablet 75 mg PO DAILY omeprazole 20 mg capsule,delayed release(DR/EC) 20 mg PO DAILY levofloxacin 500 mg tablet 500 mg PO DAILY posaconazole [Noxafil] 100 mg tablet,delayed release (DR/EC) 300 mg PO DAILY olanzapine 2.5 mg tablet 2.5 mg PO DAILY acyclovir 400 mg tablet 400 mg PO BID acetaminophen-codeine 300-30 mg tablet 1 tab PO Q6H PRN (Reason: pain) Qty: 20 0RF ondansetron 4 mg tablet,disintegrating 4 mg PO Q6H PRN (Reason: nausea and vomiting) Qty: 20 0RF Referrals: PEDRO PIERCE [Primary Care Provider] - 1 week
[2023-06-18 10:31] LABS: Bacteria Urine TRACE #/HPF (NONE SEEN); Cast Seen? NONE SEEN #/LPF (NONE SEEN); Crystals Seen? None Seen #/HPF (None Seen); Mucus Urine NONE SEEN (NONE SEEN); RBC Urine 0-2 #/HPF (0-2); Squamous Epithelial Cell Urine FEW #/LPF (NONE/RARE); Urine Culture Indicated NO; WBC Urine NONE SEEN #/HPF (NONE SEEN)
[2023-06-18] MEDS: CIPROFLOXACIN IN 5 % DEXTROSE 400 MG/200 ML PIGGYBACK IV (12:17)
[2023-06-18] MEDS: MORPHINE SULFATE 4 MG/ML VIAL IV (12:17)
[2023-06-18] MEDS: ONDANSETRON PF 4 MG/2 ML VIAL IV (14:01)
--- NOTE | 2023-06-18 14:03 | P.HP_ITS ---
patient also seen and evaluated by me at time of admission. I have reviewed patient's chart including lab findings, radiology studies, and H&P. I agree with findings and Assessment & Plan. H&P: HPI History of Present Illness Chief complaint: ABDOMINAL PAIN R/O DIVERTICULITIS Narrative: DateTime of Exam: 06/18/23 0495 This is a 68-year-old female patient with a past medical history as outlined below including recent diagnosis with acute myelogenous leukemia currently undergoing chemotherapy per the [facility] (Dr Hughes) and pancytopenia management per Dr. Macdonald at [facility] Heme/Onc Infusion clinic, who presented to the ED earlier today complaining of acute LLQ abdominal pain with onset yesterday at noon after eating lunch. The patient presented to the infusion clinic for her routine labs this morning which revealed pancytopenia, predominantly leukocytopenia and thrombocytopenia. A platelet transfusion was ordered for this morning but as the patient was experiencing worsening abdominal discomfort she was sent to the ED for further work-up. A CT of the abdomen obtained in the ED was nonspecific but did note diverticulosis and cholelithiasis without acute cholecystitis. Outpatient labs this morning were significant for leukocytopenia (1.1), Anemia (8.3), Thrombocytopenia (6). As the patient's symptoms are consistent with acute diverticulitis she is being admitted as an inpatient with pancytopenia and suspected diverticulitis in an immunocompromise patient by the hospitalist service. Of note, the patient was recently admitted to the [facility] for a an infected port. This port was discontinued during that admission and a dual PICC line was placed to the RUE. She was initiated on chemotherapy treatment during that admission and was discharged approximately 10 days ago. She was prescribed p.o. Levaquin at discharge for the port infection which she reports taking as prescribed. At the time of my exam the patient is resting in bed, she is complaining of new onset nausea and vomiting since arrival on the floor from the ED. She denies any fevers or chills, diarrhea, chest pain, shortness of breath or any other acute complaint not already noted. Her abdominal pain is to the low lateral left lower quadrant. She describes the pain as sharp and constant but waxing and waning in intensity. It is exacerbated by movement. A narrow area of focal tenderness is identified on exam without rebound or guarding noted. We will order transfusion of platelets as previously ordered as an outpatient per Dr. Macdonald. We will monitor her blood counts closely during this admission and consult Dr Macdonald for further management of her pancytopenia/AML. We will initiate antibacterial therapy with Zosyn for broader gram neg and anaerobic coverage in an immunocompromised pt. BCx2 have been drawn and are pending. The pt has been placed in neutropenic precautions. Review of Systems ROS Status of ROS 10 or more systems reviewed and unremarkable except as noted in history and below [facility] Medical History (Updated 06/18/23 @ 14:54 by Ranjana Jenkins NP) Depression ?F32.A - Depression, unspecified (ICD-10) GERD (gastroesophageal reflux disease) ?K21.9 - Gastro-esophageal reflux disease without esophagitis (ICD-10) History of blood transfusion ?Z92.89 - Personal history of other medical treatment (ICD-10) 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 - Intraductal carcinoma in situ of left breast (ICD-10) Myeloid leukemia ?C92.90 - Myeloid leukemia, unspecified, not having achieved remission (ICD- 10) Symptomatic anemia ?D64.9 - Anemia, unspecified (ICD-10) Surgical History History of bone marrow biopsy ?Z98.890 - Other specified postprocedural states (ICD-10) History of hysterectomy ?Z90.710 - Acquired absence of both cervix and uterus (ICD-10) S/P excision of lipoma ?Z98.890 - Other specified postprocedural states (ICD-10) ?Z86.018 - Personal history of other benign neoplasm (ICD-10) Family History Father Family history of cancer Family history of hypertension Mother Family history of hypertension Grandfather Family history of cancer Grandmother Family history of cancer Aunt Family history of cancer Social History Within the past year, how often did you have a drink containing alcohol: monthly or less Within the past year, how many standard drinks containing alcohol did you have on a typical day: 1 or 2 Total score: 0 Score interpretation: A score less than 3 is consistent with normal alcohol consumption. Smoking status: Never smoker Gender Identity: female Meds Home Medications and Allergies Home Medications Medication Instructions Recorded Confirmed Type bupropion HCl 75 mg tablet 75 mg PO DAILY 05/03/23 06/18/23 History omeprazole 20 mg capsule,delayed 20 mg PO DAILY 05/03/23 06/18/23 History release acyclovir 400 mg tablet 400 mg PO BID 05/25/23 06/18/23 History levofloxacin 500 mg tablet 500 mg PO DAILY 06/18/23 06/18/23 History olanzapine 2.5 mg tablet 2.5 mg PO .QHS 06/18/23 06/18/23 History posaconazole 100 mg tablet,delayed 300 mg PO DAILY 06/18/23 06/18/23 History release (Noxafil) Allergies Allergy/AdvReac Type Severity Reaction Status Date / Time acetaminophen [From Vicodin] AdvReac Verified 05/25/23 10:40 hydrocodone [From Vicodin] AdvReac Verified 05/25/23 10:40 Exam Constitutional Vital Signs, click to edit/add: Last Vital Signs Temp 98.1 F 06/18/23 13:13 Pulse 67 06/18/23 13:13 Resp 20 06/18/23 13:13 BP 135/83 06/18/23 13:13 Pulse Ox 94 L 06/18/23 13:13 O2 Del Method Room Air 06/18/23 13:13 Common normals: no apparent distress, oriented x3, alert and well nourished General appearance: cooperative Orientation/consciousness: Yes awake [facility] Common normals: normocephalic, head/scalp atraumatic, hearing grossly normal bilaterally, external ears normal, external nose normal and moist oral mucous membranes Head and scalp: normocephalic and atraumatic Face and sinus: normal facial exam Nose: external nose normal External ear: external ears normal Eye Common normals: PERRL, EOMs intact bilaterally and no scleral icterus General eye: normal appearance of both eyes Alignment: alignment normal Eyelid: eyelids normal Conjunctiva: conjunctiva abnormal (Pale, anicteric) Pupil: PERRL Neck & C-Spine Common normals: full ROM, supple and no JVD Chest Common normals: inspection of chest normal Chest: symmetrical chest wall rise Respiratory Common normals: normal respiratory effort, no retractions, no use of accessory muscles and clear to auscultation bilaterally Effort & inspection: able to speak in complete sentences Auscultation: clear to auscultation bilaterally Cardio Common normals: no JVD, regular rate, regular rhythm, S1 normal heart sound, S2 normal heart sound, no gallops, no clicks, no murmurs, no rub and peripheral pulses 2+ throughout Rate: regular rate Rhythm: regular rhythm Heart sounds: S1 normal and S2 normal Peripheral pulses: pulses 2+ throughout GI Common normals: Normal to inspection, nondistended, normoactive bowel sounds present, soft to palpation, no hepatosplenomegaly, no masses and no bruits Palpation: soft, tender Details: LLQ (Low, far lateral); negative for Brandt's sign and no hepatosplenomegaly; no guarding, not rigid and no rebound tenderness present Bladder/kidney exam: bladder normal to palpation Back & Pelvis Common normals: thoracic and lumbar spine normal to inspection Extremity Common normals: normal capillary refill General: normal exam except as noted and edema (tr-1+ bilat insteps); no clubbing and no cyanosis Neuro [place] Coma Scale: GCS not evaluated Common normals: oriented x3, CN's II-XII intact bilaterally, moves all extremities, no focal motor deficits and no sensory deficits noted Sensorium/orientation: awake and alert Speech: speech normal Motor exam: strength 5/5 throughout Psych Common normals: mental status grossly normal, thought process normal, affect normal and activity/motor behavior normal Thought process: normal thought process Results Labs Labs: Urine 06/18/23 Range/Units 09:41 Urine Color Lt. yellow (YELLOW) Urine Clarity Clear (CLEAR) Urine pH 6.5 (5.0-9.0) Ur Specific [place] 1.015 (1.005-1.025) Urine Protein Negative (NEG/TRACE) mg/dL Urine Glucose (UA) Negative (NEGATIVE) mg/dL Pulse Oximetry Attestation: I have reviewed the pertinent pulse oximetry results. Imaging CT scan - abdomen: Attestation: I have reviewed the pertinent imaging results. Radiologist's impression: IMPRESSION: 1. No acute abnormality of the abdomen and pelvis. 2. Cholelithiasis. 3. Punctate nonobstructive calculus in the left kidney. 4. Mild colonic diverticulosis. 5. 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 Assessment and Plan Assessment and Plan (1) Diverticulitis: Assessment and Plan: SUSPECTED, ACUTE * Adm inpatient * Sx concerning for diverticulitis in setting of known diverticulosis in an immunocompromised pt * Stop PO Levaquin - consider failed OP as she has been taking this for > 10 days * Initiate IVPB Zosyn for broader gram neg & anaerobic coverage * Consider repeat imaging pending clinical course * Consider general surgery consult pending clinical course * CBC, CMP daily (2) Pancytopenia: Assessment and Plan: CHRONIC * Predominant leukocytopenia (1.1) and thrombocytopenia (6) * Neutropenic precautions for pt protection * Transfuse [address] Macdonald AM outpatient order * c/s Dr Macdonald, hem/onc - we appreciate his assistance with this pt's care * Monitor w/ CBC daily * Consider PRBC transfusion for Hgb < 7 (3) AML (acute myeloblastic leukemia): Assessment and Plan: CHRONIC * Defer to Dr Macdonald managment and outpatient tx per [facility] * Continue Acyclovir, olanzapine, posaconazole as recently added by heme/onc * Levaquin PO has been replaced w/ IVPB Zosyn * PO Zofran replaced w/ IVP zofran (4) Depression: Assessment and Plan: CHRONIC * Continue home bupropion (5) GERD (gastroesophageal reflux disease): Assessment and Plan: CHRONIC * Continue home PPI
[2023-06-18] MEDS: PIPERACILLIN SODIUM/TAZOBACTAM 3.375 GM in 0.9 % SODIUM CHLORIDE 50 ML IV ×2 (14:26→21:03)
[2023-06-18 14:56] LABS: Hemoglobin 7.8 g/dL (12.0-16.0); Mean Corpuscular HGB Conc 35.5 g/dL (29.9-35.2); Mean Corpuscular Hemoglobin 32.9 pg (26.7-34.0); Mean Corpuscular Volume 92.8 fL (81.0-99.0); Red Blood Count 2.37 10^6/uL (4.20-5.40); Red Cell Distribution Width 16.1 % (11.0-15.0)
[2023-06-18 15:02] LABS: Platelet Count 10 10^3/uL (150-450); White Blood Count 1.2 10^3/uL (4.0-11.0)
[2023-06-18 15:34] LABS: Monocytes Absolute Manual 0.01 10^3/uL (0.30-0.80); Segmented Neut Absolute Manual 0.08 10^3/uL (1.4-6.5)
[2023-06-18] MEDS: DIPHENHYDRAMINE HCL 25 MG CAPSULE PO (15:41)
[2023-06-18] MEDS: ACETAMINOPHEN 325 MG TABLET 650 MG PO ×2 (15:41→23:04)
[2023-06-18] MEDS: ACYCLOVIR 200 MG CAPSULE 400 MG PO (20:41)
[2023-06-18] MEDS: OLANZapine 5 MG TABLET 2.5 MG PO (21:03)
[2023-06-19] VITALS (7 sets, daily range): BP systolic 108–164; BP diastolic 64–89; PULSE 66–71; RESP 16–18; TEMP 36.4–37.1; O2SAT 93–99
[2023-06-19 04:47] LABS: Lymphocytes Absolute Auto 1.2 10^3/uL (1.2-3.8); Lymphocytes Percent Auto 92.5 % (20.5-60.0); Mean Corpuscular Hemoglobin 30.9 pg (26.7-34.0); Mean Corpuscular Volume 93.6 fL (81.0-99.0); Neutrophils Absolute Auto 0.1 10^3/uL (1.4-6.5); Neutrophils Percent Auto 7.5 % (43.0-75.0); Red Cell Distribution Width 15.9 % (11.0-15.0)
[2023-06-19 05:00] LABS: Hematocrit 20.6 % (36.0-48.0); Hemoglobin 6.8 g/dL (12.0-16.0); Platelet Count 15 10^3/uL (150-450); White Blood Count 1.3 10^3/uL (4.0-11.0)
[2023-06-19 05:18] LABS: Alanine Aminotransferase 54 U/L (14-59); Albumin Level 2.7 g/dL (3.4-5.0); Alkaline Phosphatase 65 U/L (46-116); Anion Gap 9.9; Aspartate Amino Transferase 25 U/L (15-37); Bilirubin Total 0.4 mg/dL (0.2-1.0); Calcium 8.3 mg/dL (8.5-10.1); Carbon Dioxide 26.7 mmol/L (21.0-32.0); Chloride 109 mmol/L (98-107); Estimated GFR (African America >60 (>=60); Estimated GFR (Non-African Ame >60 (>=60); Globulin 2.7 g/dL; Glucose 93 mg/dL (74-106); Potassium 3.6 mmol/L (3.5-5.1); Sodium 142 mmol/L (136-145); Total Protein 5.4 g/dL (6.4-8.2)
[2023-06-19] MEDS: OMEPRAZOLE 20 MG CAPSULE.DR PO (05:37)
[2023-06-19] MEDS: PIPERACILLIN SODIUM/TAZOBACTAM 3.375 GM in 0.9 % SODIUM CHLORIDE 50 ML IV ×3 (05:37→21:02)
[2023-06-19] MEDS: BUPROPION HCL 75 MG TABLET PO (08:29)
[2023-06-19] MEDS: ACYCLOVIR 200 MG CAPSULE 400 MG PO ×2 (08:29→20:04)
[2023-06-19 08:34] LABS: A. calcoaceticus-baumannii Cpx NOT DETECTED (NOT DETECTE); Bacteroides fragilis NOT DETECTED (NOT DETECTE); Candida albicans NOT DETECTED (NOT DETECTE); Candida auris NOT DETECTED (NOT DETECTE); Candida glabrata NOT DETECTED (NOT DETECTE); Candida krusei NOT DETECTED (NOT DETECTE); Candida parapsilosis NOT DETECTED (NOT DETECTE); Candida tropicalis NOT DETECTED (NOT DETECTE); Cryptococcus neoformans/gattii NOT DETECTED (NOT DETECTE); Enterobacter cloacae complex NOT DETECTED (NOT DETECTE); Enterobacterales NOT DETECTED (NOT DETECTE); Enterococcus faecalis NOT DETECTED (NOT DETECTE); Enterococcus faecium NOT DETECTED (NOT DETECTE); Haemophilus influenzae NOT DETECTED (NOT DETECTE); Klebsiella aerogenes NOT DETECTED (NOT DETECTE); Klebsiella pneumoniae group NOT DETECTED (NOT DETECTE); Listeria monocytogenes NOT DETECTED (NOT DETECTE); Neisseria meningitidis NOT DETECTED (NOT DETECTE); Proteus spp. NOT DETECTED (NOT DETECTE); Pseudomonas aeruginosa NOT DETECTED (NOT DETECTE); Salmonella spp. NOT DETECTED (NOT DETECTE); Serratia marcescens NOT DETECTED (NOT DETECTE); Staphylococcus epidermidis NOT DETECTED (NOT DETECTE); Staphylococcus lugdunensis NOT DETECTED (NOT DETECTE); Staphylococcus spp. NOT DETECTED (NOT DETECTE); Stenotrophomonas maltophilia NOT DETECTED (NOT DETECTE); Streptococcus agalactiae NOT DETECTED (NOT DETECTE); Streptococcus pneumoniae NOT DETECTED (NOT DETECTE); Streptococcus pyogenes NOT DETECTED (NOT DETECTE); Streptococcus spp. NOT DETECTED (NOT DETECTE)
--- NOTE | 2023-06-19 08:42 | PM.CN ---
Consult Note: HPI Data of Consult Requesting Physician: Deanna Mason DO Primary Care Provider: PEDRO PIERCE Consult Narrative Reason for consult: AML, on chemotherapy with Vidaza and Venclexta Narrative: This is a 68-year-old female patient who notes a remote hx of breast cancer, dx in Aug 2013. She underwent lumpectomy and radiation therapy. She did not require chemotherapy. She completed 5 years of letrozole therapy. She also reports hx of JE-BSO. She developed fairly rapid onset fatigue and exhaustion. She noted prominent decline in her activity level. She developed DE [place] CRUZ and ecchymoses. Her blood work from late Apr 2023 showed WBC 1.5, Hgb 8.4, MCV 105.1, plt 24K. She had severely abnormal differential. She underwent bone marrow biopsy coordinated by our office, on May 08, 2023. 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 Her case was discussed with Dr Hughes at [facility]. She initiated cycle #1 Vidaza and Venclexta on 06/01/2023 via PICC line. She receives prophylaxis with levaquin, acyclovir, and posaconazole antifungal. Her plans involve day 21 bone marrow on 06/25/2023. She will receive cycle #2 with us locally, at [place]. She presented to [place] ER acutely, complaining of acute LLQ abdominal pain after eating lunch. The patient presented to the infusion clinic for her routine labs which revealed pancytopenia, predominantly leukocytopenia and thrombocytopenia. A platelet transfusion was ordered for this morning but as the patient was experiencing worsening abdominal discomfort she was sent to the ED for further work-up. A CT of the abdomen obtained in the ED was nonspecific but did note diverticulosis and cholelithiasis without acute cholecystitis. Outpatient labs this morning were significant for leukocytopenia (1.1), Anemia (8.3), Thrombocytopenia (6). As the patient's symptoms are consistent with acute diverticulitis she is being admitted as an inpatient with pancytopenia and suspected diverticulitis in an immunocompromise patient by the hospitalist service. Of note, the patient was recently admitted to the [facility] for a an infected port. This port was discontinued during that admission and a dual PICC line was placed to the RUE. As above, she was initiated on chemotherapy treatment during that admission and was discharged approximately 10 days ago. As above, she has been on Levaquin for neutropenia prophylaxis, prior to admission. Today, at the bedside, patient notes significant improvement in her pain with IV Zosyn. She reports to me that she was eating popcorn, during the football game, prior to her development of left sided abdominal pain. She does have positive blood culture, and is awaiting identification. She is on neutropenic precautions. I discussed that we will likely transition to oral Abx on discharge (e.g. augmentin), and then eventually back to her ppx levofloxacin. She will receive irradiated blood / platelets to maintain Hgb > 7 g/dL, and plt > 10K. She will see us on , for repeat labs, and again, has BM biopsy planned next week. Her cycle #2 is planned tentatively for 07/02/2023, with us locally in [place]. ECOG PS 2. cc:: CC: Deanna Mason, DO Review of Systems ROS Narrative A comprehensive 12 point review of systems was conducted and is negative other than that reported in the history of present illness. [facility] Medical History (Updated 06/18/23 @ 14:54 by Ranjana Jenkins NP) Depression ?F32.A - Depression, unspecified (ICD-10) GERD (gastroesophageal reflux disease) ?K21.9 - Gastro-esophageal reflux disease without esophagitis (ICD-10) History of blood transfusion ?Z92.89 - Personal history of other medical treatment (ICD-10) 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 - Intraductal carcinoma in situ of left breast (ICD-10) Myeloid leukemia ?C92.90 - Myeloid leukemia, unspecified, not having achieved remission (ICD-10) Symptomatic anemia ?D64.9 - Anemia, unspecified (ICD-10) Surgical History History of bone marrow biopsy ?Z98.890 - Other specified postprocedural states (ICD-10) History of hysterectomy ?Z90.710 - Acquired absence of both cervix and uterus (ICD-10) S/P excision of lipoma ?Z98.890 - Other specified postprocedural states (ICD-10) ?Z86.018 - Personal history of other benign neoplasm (ICD-10) Family History Father Family history of cancer Family history of hypertension Mother Family history of hypertension Grandfather Family history of cancer Grandmother Family history of cancer Aunt Family history of cancer Social History Within the past year, how often did you have a drink containing alcohol: monthly or less Within the past year, how many standard drinks containing alcohol did you have on a typical day: 1 or 2 Total score: 0 Score interpretation: A score less than 3 is consistent with normal alcohol consumption. Smoking status: Never smoker Gender Identity: female Meds Home Medications and Allergies Home Medications Medication Instructions Recorded Confirmed Type bupropion HCl 75 mg tablet 75 mg PO DAILY 05/03/23 06/18/23 History omeprazole 20 mg capsule,delayed 20 mg PO DAILY 05/03/23 06/18/23 History release acyclovir 400 mg tablet 400 mg PO BID 05/25/23 06/18/23 History levofloxacin 500 mg tablet 500 mg PO DAILY 06/18/23 06/18/23 History olanzapine 2.5 mg tablet 2.5 mg PO .QHS 06/18/23 06/18/23 History posaconazole 100 mg tablet,delayed 300 mg PO DAILY 06/18/23 06/18/23 History release (Noxafil) Allergies Allergy/AdvReac Type Severity Reaction Status Date / Time acetaminophen [From Vicodin] AdvReac Verified 05/25/23 10:40 hydrocodone [From Vicodin] AdvReac Verified 05/25/23 10:40 Exam Narrative Exam Narrative: Common normals: no apparent distress, oriented x3, alert and well nourished General appearance: cooperative Orientation/consciousness: Yes awake [facility] Common normals: normocephalic, head/scalp atraumatic, hearing grossly normal bilaterally, external ears normal, external nose normal and moist oral mucous membranes Head and scalp: normocephalic and atraumatic Face and sinus: normal facial exam Nose: external nose normal External ear: external ears normal Eye Common normals: PERRL, EOMs intact bilaterally and no scleral icterus General eye: normal appearance of both eyes Alignment: alignment normal Eyelid: eyelids normal Conjunctiva: conjunctiva abnormal (Pale, anicteric) Pupil: PERRL Neck & C-Spine Common normals: full ROM, supple and no JVD Chest Common normals: inspection of chest normal Chest: symmetrical chest wall rise Respiratory Common normals: normal respiratory effort, no retractions, no use of accessory muscles and clear to auscultation bilaterally Effort & inspection: able to speak in complete sentences Auscultation: clear to auscultation bilaterally Cardio Common normals: no JVD, regular rate, regular rhythm, S1 normal heart sound, S2 normal heart sound, no gallops, no clicks, no murmurs, no rub and peripheral pulses 2+ throughout Rate: regular rate Rhythm: regular rhythm Heart sounds: S1 normal and S2 normal Peripheral pulses: pulses 2+ throughout GI Common normals: Normal to inspection, nondistended, normoactive bowel sounds present, soft to palpation, no hepatosplenomegaly, no masses and no bruits Palpation: soft, tender Details: LLQ (Low, far lateral); negative for Brandt's sign and no hepatosplenomegaly; no guarding, not rigid and no rebound tenderness present Bladder/kidney exam: bladder normal to palpation Back & Pelvis Common normals: thoracic and lumbar spine normal to inspection Extremity Common normals: normal capillary refill General: normal exam except as noted and edema (tr-1+ bilat insteps); no clubbing and no cyanosis Neuro [place] Coma Scale: GCS not evaluated Common normals: oriented x3, CN's II-XII intact bilaterally, moves all extremities, no focal motor deficits and no sensory deficits noted Sensorium/orientation: awake and alert Speech: speech normal Motor exam: strength 5/5 throughout Psych Common normals: mental status grossly normal, thought process normal, affect normal and activity/motor behavior normal Thought process: normal thought process Constitutional Vital Signs, click to edit/add: Last Vital Signs Temp 98.1 F 06/19/23 03:55 Pulse 71 06/19/23 03:55 Resp 18 06/19/23 03:55 BP 108/64 06/19/23 03:55 Pulse Ox 93 L 06/19/23 03:55 O2 Del Method Room Air 06/19/23 03:55 Results Labs Labs: Short CBC 06/18/23 06/19/23 Range/Units 13:35 04:04 WBC 1.2 L* 1.3 L* (4.0-11.0) 10^3/uL Hgb 7.8 L 6.8 L* (12.0-16.0) g/dL Hct 22.0 L* 20.6 L* (36.0-48.0) % Plt Count 10 L* 15 L* (150-450) 10^3/uL BMP 06/19/23 04:04 Sodium 142 Potassium 3.6 Chloride 109 H Carbon Dioxide 26.7 BUN 12.0 Creatinine 0.92 Glucose 93 Calcium 8.3 L Liver Function 06/19/23 Range/Units 04:04 Total Bilirubin 0.4 (0.2-1.0) mg/dL AST 25 (15-37) U/L ALT 54 (14-59) U/L Alkaline Phosphatase 65 (46-116) U/L Albumin 2.7 L (3.4-5.0) g/dL Urine 06/18/23 Range/Units 09:41 Urine Color Lt. yellow (YELLOW) Urine Clarity Clear (CLEAR) Urine pH 6.5 (5.0-9.0) Ur Specific [place] 1.015 (1.005-1.025) Urine Protein Negative (NEG/TRACE) mg/dL Urine Glucose (UA) Negative (NEGATIVE) mg/dL Assessment and Plan Assessment and Plan (1) Diverticulitis: (2) Pancytopenia: (3) AML (acute myeloblastic leukemia): (4) Depression: (5) GERD (gastroesophageal reflux disease): Plan Princess Wilkes is a 68-year-old female with remote hx of breast cancer (in remission), now undergoing treatment for AML leukemia (with complex cytogenetics), with Vidaza and Venclexta. She has pancytopenia from leukemia (and chemotherapy), and is now admitted with LLQ pain / probable diverticulitis. Impression: # AML leukemia, with complex cytogenetics # Pancytopenia from AML # LLQ pain / diverticulitis # Hx of breast cancer in remission # Positive blood culture, awaiting identification PLAN: - labs, imaging, microbiology data reviewed. - discussed with Dr Hughes at [facility], and also RN at the bedside. - agree with IV Zosyn as ordered - await identification of bacteria on positive blood culture - can likely transition to oral Abx on discharge tomorrow (e.g. augmentin, total 10-14 days) - she can hold levaquin while on augmentin. When she completes augmentin, return to ppx levaquin dosing - continue other ppx meds, including acyclovir and posaconazole antifungal - she will have labs checked with us 06/21/2023 - she has bone marrow biopsy planned on 06/25/2023. This is called day 21 bone marrow and will guide cycle #2 - she will receive cycle #2 with us locally, at [place]. I will coordinate her Vidaza and Venclexta dosing. Tentative start date = 07/02/2023 - agree with irradiated blood / platelets to maintain Hgb > 7 g/dL, and plt > 10K. - i informed her to eliminate foods that can increase risk of diverticulitis, including popcorn and nuts Thank you for the consult. Will continue to follow. Sherry Macdonald MD Hematology Oncology
--- NOTE | 2023-06-19 09:50 | P.PN_ITS ---
patient also seen and examined by me. Note, labs and results also reviewed. I agree with the above findings. Progress Note: Subjective Subjective Interval history: Date/time of exam: 06/19/23 0920 The patient is resting in bed visiting with her . She reports feeling much improved today with significant reduction in left lower quadrant pain. She reports that her pain is very mild today and not significantly worsened with movement. She has experienced no further episodes of nausea and vomiting since my exam yesterday. She continues to feel somewhat fatigued and she is slightly pale. Her hemoglobin dropped to 6.8 today and we will transfuse 1 unit irradiated PRBCs. Platelets are up to 15. Dr. Macdonald's standing orders require platelet transfusion for less than 10. We defer any further platelet transfusion to Dr. Macdonald if he feels it is indicated today. Exam Constitutional Vital Signs, click to edit/add: Last Vital Signs Temp 98.1 F 06/19/23 03:55 Pulse 71 06/19/23 03:55 Resp 18 06/19/23 03:55 BP 108/64 06/19/23 03:55 Pulse Ox 93 L 06/19/23 03:55 O2 Del Method Room Air 06/19/23 03:55 Common normals: no apparent distress, oriented x3 and alert General appearance: cooperative Orientation/consciousness: Yes awake HENIA Common normals: normocephalic, head/scalp atraumatic and hearing grossly normal bilaterally Head and scalp: normocephalic and atraumatic Eye Common normals: PERRL, EOMs intact bilaterally, conjunctivae normal and no scleral icterus General eye: normal appearance of both eyes Conjunctiva: conjunctiva(e) normal Pupil: PERRL Neck & C-Spine Common normals: no JVD Chest Common normals: inspection of chest normal Chest: symmetrical chest wall rise Respiratory Common normals: normal respiratory effort, no use of accessory muscles and clear to auscultation bilaterally Effort & inspection: able to speak in complete sentences Auscultation: clear to auscultation bilaterally Cardio Common normals: no JVD, regular rate, regular rhythm, S1 normal heart sound, S2 normal heart sound, no gallops, no clicks, no murmurs, no rub and peripheral pulses 2+ throughout Rate: regular rate Rhythm: regular rhythm Heart sounds: S1 normal and S2 normal Peripheral pulses: pulses 2+ throughout GI Common normals: Normal to inspection, nondistended, normoactive bowel sounds present, soft to palpation and no hepatosplenomegaly Palpation: soft, tender (Mild LLQ) and no hepatosplenomegaly; no guarding, not rigid and no rebound tenderness present Bladder/kidney exam: bladder normal to palpation Extremity Common normals: normal to inspection and no calf tenderness General: edema (Trace bilat insteps); no clubbing and no cyanosis Neuro Common normals: oriented x3, CN's II-XII intact bilaterally, moves all extremities, no focal motor deficits and no sensory deficits noted Sensorium/orientation: awake and alert Psych Common normals: mental status grossly normal Progress Note: Objective Labs Labs: Short CBC 06/18/23 06/19/23 Range/Units 13:35 04:04 WBC 1.2 L* 1.3 L* (4.0-11.0) 10^3/uL Hgb 7.8 L 6.8 L* (12.0-16.0) g/dL Hct 22.0 L* 20.6 L* (36.0-48.0) % Plt Count 10 L* 15 L* (150-450) 10^3/uL BMP 06/19/23 04:04 Sodium 142 Potassium 3.6 Chloride 109 H Carbon Dioxide 26.7 BUN 12.0 Creatinine 0.92 Glucose 93 Calcium 8.3 L Liver Function 06/19/23 Range/Units 04:04 Total Bilirubin 0.4 (0.2-1.0) mg/dL AST 25 (15-37) U/L ALT 54 (14-59) U/L Alkaline Phosphatase 65 (46-116) U/L Albumin 2.7 L (3.4-5.0) g/dL Urine 06/18/23 Range/Units 09:41 Urine Color Lt. yellow (YELLOW) Urine Clarity Clear (CLEAR) Urine pH 6.5 (5.0-9.0) Ur Specific [place] 1.015 (1.005-1.025) Urine Protein Negative (NEG/TRACE) mg/dL Urine Glucose (UA) Negative (NEGATIVE) mg/dL Progress Note: A&P Assessment and Plan (1) Diverticulitis: Assessment and Plan: SUSPECTED, ACUTE * Improving * Sx concerning for diverticulitis in setting of known diverticulosis in an immunocompromised pt * Stop PO Levaquin - consider failed OP as she has been taking this for > 10 days * Continue IVPB Zosyn for broader gram neg & anaerobic coverage * Consider repeat imaging pending clinical course * Consider general surgery consult pending clinical course * CBC, CMP daily (2) Pancytopenia: Assessment and Plan: CHRONIC Laboratory Tests 06/18/23 06/19/23 09:24 04:04 WBC 1.1 L* 1.3 L* Hgb 8.3 L 6.8 L* Plt Count 6 L* 15 L* * Worsening anemia today * Transfuse 1 un irradiated PRBCs as soon as blood bank can procure * Improved leukocytopenia and thrombocytopenia today * Continue neutropenic precautions for pt protection (Reverse isolation) * Defer further platelet transfusions to Dr Macdonald. 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
--- NOTE | 2023-06-19 11:43 | CM.NOTE ---
Rounds made with Dr. Mason, pt up ad livia in room. Pt voices feeling better today, will await recommendations from Dr. Macdonald (oncologist).
[2023-06-19] MEDS: ACETAMINOPHEN 325 MG TABLET 650 MG PO ×2 (12:17→20:04)
[2023-06-19] MEDS: DIPHENHYDRAMINE HCL 25 MG CAPSULE PO (12:17)
--- NOTE | 2023-06-19 12:36 | CM.NOTE ---
Important Message From Medicare discussed with pt, pt verbalizes understanding and signs paper. Original given to pt and copy placed on pt's chart.
[2023-06-19] MEDS: OLANZapine 5 MG TABLET 2.5 MG PO (20:03)
[2023-06-20 04:42] LABS: Hemoglobin 7.5 g/dL (12.0-16.0); Lymphocytes Absolute Auto 1.3 10^3/uL (1.2-3.8); Lymphocytes Percent Auto 93.6 % (20.5-60.0); Mean Corpuscular HGB Conc 34.9 g/dL (29.9-35.2); Mean Corpuscular Hemoglobin 31.6 pg (26.7-34.0); Mean Corpuscular Volume 90.7 fL (81.0-99.0); Monocytes Percent Auto 0.7 % (1.7-12.0); Neutrophils Absolute Auto 0.1 10^3/uL (1.4-6.5); Neutrophils Percent Auto 5.7 % (43.0-75.0); Red Blood Count 2.37 10^6/uL (4.20-5.40); Red Cell Distribution Width 16.5 % (11.0-15.0); White Blood Count 1.4 10^3/uL (4.0-11.0)
[2023-06-20 04:47] VITALS: BP 168/88; PULSE 68; RESP 18; TEMP 36.6; O2SAT 94
[2023-06-20 05:04] LABS: Hematocrit 21.5 % (36.0-48.0)
[2023-06-20 05:06] LABS: Platelet Count 7 10^3/uL (150-450)
[2023-06-20 05:09] LABS: Alanine Aminotransferase 36 U/L (14-59); Albumin Level 2.7 g/dL (3.4-5.0); Alkaline Phosphatase 69 U/L (46-116); Anion Gap 10.6; Aspartate Amino Transferase 30 U/L (15-37); BUN Creatinine Ratio 16.1; Bilirubin Total 0.6 mg/dL (0.2-1.0); Calcium 8.3 mg/dL (8.5-10.1); Chloride 108 mmol/L (98-107); Estimated GFR (African America >60 (>=60); Estimated GFR (Non-African Ame 60 (>=60); Globulin 2.7 g/dL; Glucose 92 mg/dL (74-106); Potassium 3.6 mmol/L (3.5-5.1); Sodium 142 mmol/L (136-145); Total Protein 5.4 g/dL (6.4-8.2)
[2023-06-20] MEDS: PIPERACILLIN SODIUM/TAZOBACTAM 3.375 GM in 0.9 % SODIUM CHLORIDE 50 ML IV ×2 (05:31→13:31)
[2023-06-20] MEDS: OMEPRAZOLE 20 MG CAPSULE.DR PO (05:31)
[2023-06-20] MEDS: ACETAMINOPHEN 325 MG TABLET 650 MG PO ×2 (05:32→14:23)
[2023-06-20 08:00] VITALS: RESP 18
[2023-06-20] MEDS: ACYCLOVIR 200 MG CAPSULE 400 MG PO (08:36)
[2023-06-20] MEDS: BUPROPION HCL 75 MG TABLET PO (08:43)
--- NOTE | 2023-06-20 09:44 | P.DS_ITS ---
patient was also seen and examined by me at the time of discharge. Notes, labs, results reviewed. I agree with findings above. DS: Providers Provider Date of admission: 06/18/23 13:18 Primary care physician: PEDRO PIERCE Admitting clinician: Ranjana Jenkins Attending physician on admission: Deanna Mason Consults: 06/18/23 13:15 Consult to Oncology Routine Consulting Provider: Sherry Macdonald Reason for consultation: Pancytopenia. Hx of AML Has provider been notified: No 06/18/23 13:21 Physical Therapy Eval and Treat Routine Reason for consultation: generalized weakness Has provider been notified: No Attending physician on discharge: Deanna Mason Discharging clinician: Ranjana Jenkins Anticipated date of discharge: 06/20/23 DS: Diagnosis Discharge Diagnosis (1) Diverticulitis: (2) Pancytopenia: (3) Bacteremia: Assessment and plan: Suspect contaminant - / bottles acinetobacter lwoffii, BCID - no pathogen detected (4) AML (acute myeloblastic leukemia): DS: Summary Hospital Course Hospital Course: The patient was admitted with acute left lower quadrant abdominal pain suspected to indicate acute diverticulitis in an immunocompromise patient despite unremarkable CT imaging of the abdomen. She was initiated on IVPB Zosyn for broad gram-negative and anaerobic coverage as her condition developed while taking prophylactic Levaquin. Her symptoms significantly improved during her stay and in fact her pain has resolved and she has had a normal bowel movement today. In addition she had persistent pancytopenia secondary to her known AML. She received PRBC and platelet transfusions during this admission. She was seen in consult by Dr. Macdonald, oncologist, and he managed her pancytopenia. She will follow-up with Dr. Macdonald as an outpatient tomorrow for further close management and transfusions if indicated. Of note, 1 out of 4 bottles of blood cultures has grown gram-positive bacteria, but the pathogen was identified as acinetobacter lwoffii on day of discharge which is actually gram neg. The BC ID test has shown no pathogen growth to date. This is still most likely a skin pathogen contaminant but repeat BC x2 were drawn on the day of discharge for difinitive diagnosis. Final cultures w/ I&D are still pending. She has adequate gram neg coverage on her current antibiotic regimen and will be followed closely by Dr Macdonald. The patient is being discharged home in stable but guarded condition considering her severely immunocompromise state. She has been instructed to monitor her PICC line site closely for any signs of infection as the insertion site is slightly reddened during this stay, but no significant tenderness, warmth noted and no sign of purulence. She's prescribed Augmentin BID x 12 more days (14 day total course) for full treatment of diverticulitis. She should follow-up with her PCP within 5 to [address] Macdonald as previously scheduled tomorrow. Status at Discharge Overall status at discharge: patient is back to baseline Time Spent with Patient Time attestation: Total time spent providing and/or coordinating discharge services: Time spent: greater than 30 minutes Specific discharge activities: Discharge medications and plan of care. Follow up with oncology clinic. Questions regarding persistent pancytopenia. Exam Constitutional Vital Signs, click to edit/add: Last Vital Signs Temp 97.8 F 06/20/23 04:47 Pulse 68 06/20/23 04:47 Resp 18 06/20/23 04:47 BP 168/88 H 06/20/23 04:47 Pulse Ox 94 L 06/20/23 04:47 O2 Del Method Room Air 06/20/23 04:47 Common normals: no apparent distress, oriented x3 and alert General appearance: cooperative Orientation/consciousness: Yes awake HENMT Common normals: normocephalic and head/scalp atraumatic Head and scalp: normocephalic and atraumatic Eye Common normals: PERRL, EOMs intact bilaterally, conjunctivae normal and no scleral icterus Conjunctiva: conjunctiva(e) normal Pupil: PERRL Neck & C-Spine Common normals: no JVD Respiratory Common normals: normal respiratory effort, no use of accessory muscles and clear to auscultation bilaterally Effort & inspection: able to speak in complete sentences and symmetric chest movement Auscultation: clear to auscultation bilaterally Cardio Common normals: no JVD, regular rate, regular rhythm, S1 normal heart sound, S2 normal heart sound, no gallops, no clicks, no murmurs, no rub and peripheral pulses 2+ throughout Rate: regular rate Rhythm: regular rhythm Heart sounds: S1 normal and S2 normal Peripheral pulses: pulses 2+ throughout GI Common normals: Normal to inspection, nondistended, normoactive bowel sounds present, soft to palpation and non-tender Palpation: soft Bladder/kidney exam: bladder normal to palpation Bimanual exam- vagina & uterus: bladder normal to palpation Extremity Common normals: normal to inspection, full ROM and normal capillary refill General: edema (Trace bilat insteps); no clubbing and no cyanosis Neuro Common normals: oriented x3, CN's II-XII intact bilaterally, moves all extremities, no focal motor deficits and no sensory deficits noted Sensorium/orientation: awake and alert Speech: speech normal Psych Common normals: mental status grossly normal and activity/motor behavior normal Appearance: grossly normal DS: Data Data Completed and Pending Completed studies during hospitalization: CT Abdomen/Pelvis Labs on day of discharge: Labs from last 24 hours 06/20/23 06/18/23 06/18/23 04:10 13:28 09:24 WBC 1.4 L RBC 2.37 L Hgb 7.5 L Hct 21.5 L* MCV 90.7 MCH 31.6 MCHC 34.9 RDW 16.5 H Plt Count 7 L* MPV 0.0 L Neut % (Auto) 5.7 L Lymph % (Auto) 93.6 H [place] % (Auto) 0.7 L Eos % (Auto) 0.0 L Baso % (Auto) 0.0 L Neut # (Auto) 0.1 L Lymph # (Auto) 1.3 [place] # (Auto) 0.0 L Eos # (Auto) 0.0 Baso # (Auto) 0.0 Abs Immat Gran (auto) 0.00 Imm/Tot Granulo (auto) 0.0 Sodium 142 Potassium 3.6 Chloride 108 H Carbon Dioxide 27.0 Anion Gap 10.6 BUN 15.0 Creatinine 0.93 Est GFR ( Amer) >60 Est GFR (Non-Af Amer) 60 BUN/Creatinine Ratio 16.1 Glucose 92 Calcium 8.3 L Total Bilirubin 0.6 AST 30 ALT 36 Alkaline Phosphatase 69 Total Protein 5.4 L Albumin 2.7 L Globulin 2.7 Albumin/Globulin Ratio 1.0 Ry H. influenza (PCR) Not detected A.calcoaceticus-baumannii cmplx PCR Not detected Bacteroides fragilis Not detected Liliane albicans (PCR) Not detected Liliane auris (PCR) Not detected C. glabrata (PCR) Not detected C. krusei (PCR) Not detected C. parapsilosis (PCR) Not detected C. tropicalis (PCR) Not detected C. neoform/gattii (PCR) Not detected Enterobacterales (PCR) Not detected E. cloacae complex PCR Not detected Enterococc faecalis PCR Not detected Enterococc faecium PCR Not detected E. coli (PCR) Not detected Klebsiella aerogenes (PCR) Not detected Klebsiella oxytoca PCR Not detected K. pneumoniae group (PCR) Not detected List. monocytogenes PCR Not detected N. meningitidis (PCR) Not detected Proteus spp. (copies/mL) Not detected Salmonella spp. (PCR) Not detected Serratia marcescens PCR Not detected Staphylococcus sp PCR Not detected Staph aureus (PCR) Not detected mecA/C & MREJ Resist Gene Not applicable mecA/C-Methicil Resis Gene Not applicable mcr-1 Colistin Res Gene PCR Not applicable Staph epidermidis (PCR) Not detected Staph lugdunensis (TEM-PCR) Not detected S. maltophilia (PCR) Not detected Streptococcus sp PCR Not detected Strep agalactiae (PCR) Not detected Strep pneumoniae (PCR) Not detected S. pyogenes (PCR) Not detected P. aeruginosa (PCR) Not detected Cirilo/B-Vanco Res Genes Not applicable blaIMP Car res Gene PCR Not applicable KPC (blaKPC) Detect PCR Not applicable NDM (blaNDM) Detect PCR Not applicable OXA-48 Carbapenem Resis Gene (PCR) Not applicable blaVIM Car Res Gene PCR Not applicable CTX-M ESBL (PCR) Not applicable Blood Type O Positive Antibody Screen Negative Crossmatch See Detail Preliminary micro results at discharge 06/18/23 13:28 - Preliminary Blood Imaging CT scan - abdomen: Attestation: I have reviewed the pertinent imaging results. Radiologist's impression: IMPRESSION: 1. No acute abnormality of the abdomen and pelvis. 2. Cholelithiasis. 3. Punctate nonobstructive calculus in the left kidney. 4. Mild colonic diverticulosis. 5. 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 Discharge Plan Discharge Disposition: Home, Self-Care Condition: Fair Discharge Medications: New amoxicillin-pot clavulanate 875-125 mg tablet 1 tab PO BID 12 Days Qty: 24 0RF Continued bupropion HCl 75 mg tablet 75 mg PO DAILY omeprazole 20 mg capsule,delayed release(DR/EC) 20 mg PO DAILY posaconazole [Noxafil] 100 mg tablet,delayed release (DR/EC) 300 mg PO DAILY olanzapine 2.5 mg tablet 2.5 mg PO .QHS acyclovir 400 mg tablet 400 mg PO BID Held levofloxacin 500 mg tablet 500 mg PO DAILY Hold Instructions: Until instructed to resume by Dr Macdonald Forms: Portal Instructions Follow Up Appointments: - Patient has appt. with a leukemia specialist at [facility] on - Patient has appt. with Dr. Macdonald on - Follow up with PCP in 5-7 days
--- NOTE | 2023-06-20 10:46 | CM.NOTE ---
Rounds made with yuri Romo for discharge after platelets infused. Pt will f/u with oncology and family doctor. No discharge needs identified.
[2023-06-20 14:00] VITALS: BP 131/75; PULSE 63; RESP 16; TEMP 36.4; O2SAT 94
[2023-06-20] MEDS: DIPHENHYDRAMINE HCL 25 MG CAPSULE PO (14:23)
[2023-06-20 14:32] VITALS: BP 131/75; PULSE 63; RESP 16; TEMP 36.4; O2SAT 94
[2023-06-20 14:48] VITALS: BP 148/83; PULSE 71; RESP 16; TEMP 36.4; O2SAT 92
[2023-06-20 15:47] VITALS: BP 119/71; PULSE 68; RESP 18; TEMP 36.7
--- NOTE | 2023-06-21 15:47 | CM.DCFOLLOWU ---
No answer 1st attempt.
--- NOTE | 2023-06-22 13:07 | CM.DCFOLLOWU ---
No answer 3rd attempt
--- NOTE | 2023-06-25 14:05 | CM.DCFOLLOWU ---
Person spoke with: Princess How are you feeling? Better How is your pain? No pain Did you understand your discharge instructions? Yes Do you have any questions about your discharge instructions? No Were you given any prescriptions at discharge? Yes Were you able to get your prescriptions filled? Yes Do you understand how to take your medications as ordered? Yes Do you have any questions about your follow up appointment and do you plan to keep your follow up appointment? Just leaving [facility] had Bone Marrow Biopsy, and heading to [place] for more blood work. Pt will see Renae adame. Is there anything else that you would like to discuss? Not at this time Questions/Comments/Concerns/Other:
== END 2023-06-20 16:30 | disposition home or self-care (01) | DRG 392 ==
LOC: ER 12:45 → MS 12:51
PROVIDERS: Nurse Practitioner; Admitting Provider Family Medicine; Emergency Provider Emergency Medicine Emergency Medical Services; PCP Family Medicine
DX: K57.92 Diverticulitis of intestine, part unspecified, without perforation or abscess without bleeding (principal); C92.00 Acute myeloblastic leukemia, not having achieved remission; R78.81 Bacteremia; D61.818 Other pancytopenia; F32.A Depression, unspecified; K21.9 Gastro-esophageal reflux disease without esophagitis; K80.20 Calculus of gallbladder without cholecystitis without obstruction; Z79.899 Other long term (current) drug therapy; Z85.3 Personal history of malignant neoplasm of breast; Z86.018 Personal history of other benign neoplasm; Z90.710 Acquired absence of both cervix and uterus; Z90.722 Acquired absence of ovaries, bilateral; Z92.3 Personal history of irradiation; Z88.5 Allergy status to narcotic agent; Z80.9 Family history of malignant neoplasm, unspecified; Z82.49 Family history of ischemic heart disease and other diseases of the circulatory system
CPT/HCPCS: 36415; 36430; 36591; 36592; 74177; 80053; 81001; 83735; 84100; 85025; 85027; 86850; 86900; 86901; 87040; 87150; 87186; 96365; 96366; 96375; 96376; 99285; P9035; P9038; Q9967

== ENCOUNTER 2023-07-03 07:27 | Outpatient (RCR) | payer MEDICARE, SELFPAY ==
[2023-06-08 09:20] VITALS: BP 120/75; PULSE 78; RESP 18; TEMP 36.6; O2SAT 96
[2023-06-08 09:56] LABS: Alanine Aminotransferase 16 U/L (14-59); Albumin Level 3.2 g/dL (3.4-5.0); Alkaline Phosphatase 66 U/L (46-116); Anion Gap 8.5; Aspartate Amino Transferase 17 U/L (15-37); BUN Creatinine Ratio 9.9; Bilirubin Total 0.4 mg/dL (0.2-1.0); Calcium 8.4 mg/dL (8.5-10.1); Carbon Dioxide 26.2 mmol/L (21.0-32.0); Chloride 106 mmol/L (98-107); Estimated GFR (African America 53 (>=60); Estimated GFR (Non-African Ame 44 (>=60); Globulin 3.1 g/dL; Glucose 119 mg/dL (74-106); Phosphorus 2.8 mg/dL (2.6-4.7); Potassium 3.7 mmol/L (3.5-5.1); Sodium 137 mmol/L (136-145); Total Protein 6.3 g/dL (6.4-8.2)
[2023-06-08 10:00] LABS: Hematocrit 26.5 % (36.0-48.0); Mean Corpuscular Hemoglobin 32.7 pg (26.7-34.0); Mean Corpuscular Volume 96.4 fL (81.0-99.0); Platelet Count 52 10^3/uL (150-450); Red Blood Count 2.75 10^6/uL (4.20-5.40); Red Cell Distribution Width 17.2 % (11.0-15.0)
--- NOTE | 2023-06-08 10:01 | PC.NURSE ---
0915 Arrival ambulatory to chair 3 with accompanying. Alert oriented, cheerful, talkative. Rt PICC intact Site clear, patient and state he is flushing PICC at home daily. noted chlorhexadine caps on both ports of picc. states he didn't flush purple port because he met resistance, Both port able to obtain excellent blood return, labs drawn and sent to lab. Both ports flushed with 20 ml of NSS solution. Reinforced PICC care with patient and . Patient and state she due for chemo the end of the month and at this port they would like to have the chemo here at [place]. Educated patient and that we will notify them of blood work results if and when they need to return if either platelets of PRBC's need to be transfused. Verbalize understanding. Released ambulatory
[2023-06-08 10:12] LABS: White Blood Count 0.8 10^3/uL (4.0-11.0)
[2023-06-08 10:37] LABS: Eosinophils Absolute Manual 0.01 10^3/uL (0.00-0.70); Lymphocytes Absolute Manual 0.57 10^3/uL (1.20-3.80); Monocytes Absolute Manual 0.01 10^3/uL (0.30-0.80); Segmented Neut Absolute Manual 0.16 10^3/uL (1.4-6.5)
[2023-06-08 10:38] LABS: Anisocytosis 1+; Hypochromasia 2+; Ovalocytes 1+; Poikilocytosis 1+
[2023-06-12 09:28] LABS: Hematocrit 27.1 % (36.0-48.0); Hemoglobin 9.3 g/dL (12.0-16.0); Mean Corpuscular HGB Conc 34.3 g/dL (29.9-35.2); Mean Corpuscular Hemoglobin 32.3 pg (26.7-34.0); Mean Corpuscular Volume 94.1 fL (81.0-99.0); Red Blood Count 2.88 10^6/uL (4.20-5.40); Red Cell Distribution Width 16.2 % (11.0-15.0)
[2023-06-12 09:29] LABS: White Blood Count 0.9 10^3/uL (4.0-11.0)
[2023-06-12 09:30] LABS: Platelet Count 10 10^3/uL (150-450)
--- NOTE | 2023-06-12 09:43 | PC.NURSE ---
0905: Pt. to [facility] amb. accompanied by . Pt. with PICC line in place to right arm. Site without s&s of infiltration. Flushes easily with good blood returned. Blood obtained for ordered labs. Picc ports flushed with saline, CHG caps placed. Pt. tolerates without c/o.
[2023-06-12 09:48] LABS: Segmented Neut Absolute Manual 0.09 10^3/uL (1.4-6.5)
[2023-06-12 09:49] LABS: Anisocytosis 1+; Hypochromasia 2+; Ovalocytes 1+; Poikilocytosis 1+
[2023-06-12 09:50] LABS: Alanine Aminotransferase 40 U/L (14-59); Albumin Level 3.1 g/dL (3.4-5.0); Alkaline Phosphatase 81 U/L (46-116); Anion Gap 12.6; Aspartate Amino Transferase 26 U/L (15-37); BUN Creatinine Ratio 14.7; Bilirubin Total 0.5 mg/dL (0.2-1.0); Calcium 8.9 mg/dL (8.5-10.1); Carbon Dioxide 25.5 mmol/L (21.0-32.0); Chloride 107 mmol/L (98-107); Estimated GFR (African America >60 (>=60); Estimated GFR (Non-African Ame 58 (>=60); Globulin 3.1 g/dL; Glucose 111 mg/dL (74-106); Lactate Dehydrogenase 190 U/L (81-234); Potassium 3.1 mmol/L (3.5-5.1); Sodium 142 mmol/L (136-145); Total Protein 6.2 g/dL (6.4-8.2); Uric Acid 2.9 mg/dL (2.6-6.0)
[2023-06-13 12:37] VITALS: BP 134/82; PULSE 73; RESP 16; TEMP 36.6; O2SAT 97
[2023-06-13] MEDS: DIPHENHYDRAMINE HCL 25 MG CAPSULE PO (12:45)
[2023-06-13] MEDS: 0.9 % SODIUM CHLORIDE 250 ML 10 ML IV (13:00)
[2023-06-13] MEDS: ACETAMINOPHEN 325 MG TABLET 650 MG PO (13:00)
[2023-06-13 13:17] VITALS: BP 134/82; PULSE 73; RESP 18; TEMP 36.6
--- NOTE | 2023-06-13 13:22 | PC.NURSE ---
1320 prbc initiated patient instructed on s/s of rxn. Notify nurse for chest pain shortness of breath itching hives back pain etc. verbalizes understanding
[2023-06-13 13:35] VITALS: BP 159/96; PULSE 69; RESP 18; TEMP 36.6; O2SAT 93
[2023-06-13 14:42] VITALS: BP 140/63; PULSE 64; RESP 18; TEMP 36.6; O2SAT 95
--- NOTE | 2023-06-14 07:38 | PC.NURSE ---
06/13/2023 1445 platelets transfused, flushed with remainder of 250 cc ns. Blood warmer used for transfusion
[2023-06-14 09:48] LABS: Hematocrit 24.5 % (36.0-48.0); Hemoglobin 8.4 g/dL (12.0-16.0); Mean Corpuscular HGB Conc 34.3 g/dL (29.9-35.2); Mean Corpuscular Hemoglobin 32.3 pg (26.7-34.0); Mean Corpuscular Volume 94.2 fL (81.0-99.0); Platelet Count 35 10^3/uL (150-450); Red Cell Distribution Width 16.1 % (11.0-15.0)
[2023-06-14 09:52] LABS: Alanine Aminotransferase 49 U/L (14-59); Albumin Level 3.2 g/dL (3.4-5.0); Alkaline Phosphatase 78 U/L (46-116); Anion Gap 8.9; Aspartate Amino Transferase 32 U/L (15-37); BUN Creatinine Ratio 13.2; Bilirubin Total 0.4 mg/dL (0.2-1.0); Calcium 8.5 mg/dL (8.5-10.1); Carbon Dioxide 27.8 mmol/L (21.0-32.0); Chloride 107 mmol/L (98-107); Estimated GFR (African America >60 (>=60); Estimated GFR (Non-African Ame >60 (>=60); Globulin 3.1 g/dL; Glucose 96 mg/dL (74-106); Magnesium 2.1 mg/dL (1.8-2.4); Phosphorus 3.8 mg/dL (2.6-4.7); Potassium 3.7 mmol/L (3.5-5.1); Sodium 140 mmol/L (136-145); Total Protein 6.3 g/dL (6.4-8.2)
[2023-06-14 11:59] LABS: Lymphocytes Absolute Manual 0.92 10^3/uL (1.20-3.80); Monocytes Absolute Manual 0.02 10^3/uL (0.30-0.80); Segmented Neut Absolute Manual 0.06 10^3/uL (1.4-6.5)
--- NOTE | 2023-06-14 12:23 | PC.NURSE ---
CBC AND CMP FAXED TO [facility].
--- NOTE | 2023-06-14 13:48 | PC.NURSE ---
labs from 06/12/23 and 06/14/[address] Hughes at [facility] as per patient request
[2023-06-18 09:18] VITALS: BP 142/78; PULSE 72; RESP 18; TEMP 37.2; O2SAT 96
[2023-06-18 09:32] LABS: Hemoglobin 8.3 g/dL (12.0-16.0); Mean Corpuscular HGB Conc 35.3 g/dL (29.9-35.2); Mean Corpuscular Hemoglobin 32.5 pg (26.7-34.0); Mean Corpuscular Volume 92.2 fL (81.0-99.0); Red Blood Count 2.55 10^6/uL (4.20-5.40); Red Cell Distribution Width 15.9 % (11.0-15.0)
--- NOTE | 2023-06-18 09:33 | PC.NURSE ---
0918: Pt. to [facility] amb. accompanied by . Seated in recliner. VSS. Pt. c/o pain in left groin with ambulation only. Rates 9 /10. Denies pain elsewhere. Denies c/o dyspnea or weakness in extremities. Encouraged pt. to go to ED after blood draw. Pt. with existing PICC line to right upper arm. Site without redness or edema or s&s of infection. Flushes easily, able to aspirate blood easily. Blood drawn for labs. PICC flushed with saline. CHG cap applied. 0924: Pt. d/c'd amb. with . States she is going to ED to have left groin pain assessed.
[2023-06-18 09:37] LABS: Hematocrit 23.5 % (36.0-48.0); Platelet Count 6 10^3/uL (150-450); White Blood Count 1.1 10^3/uL (4.0-11.0)
[2023-06-18 09:49] LABS: Alanine Aminotransferase 60 U/L (14-59); Albumin Globulin Ratio 1.1; Albumin Level 3.3 g/dL (3.4-5.0); Alkaline Phosphatase 85 U/L (46-116); Anion Gap 13.2; Aspartate Amino Transferase 34 U/L (15-37); BUN Creatinine Ratio 14.8; Bilirubin Total 0.5 mg/dL (0.2-1.0); Calcium 8.8 mg/dL (8.5-10.1); Carbon Dioxide 26.4 mmol/L (21.0-32.0); Chloride 107 mmol/L (98-107); Estimated GFR (African America >60 (>=60); Estimated GFR (Non-African Ame >60 (>=60); Globulin 3.1 g/dL; Glucose 102 mg/dL (74-106); Magnesium 2.1 mg/dL (1.8-2.4); Phosphorus 3.8 mg/dL (2.6-4.7); Potassium 3.6 mmol/L (3.5-5.1); Sodium 143 mmol/L (136-145); Total Protein 6.4 g/dL (6.4-8.2)
[2023-06-18 10:21] LABS: Lymphocytes Absolute Manual 0.99 10^3/uL (1.20-3.80); Segmented Neut Absolute Manual 0.11 10^3/uL (1.4-6.5)
[2023-06-21 09:36] LABS: Alanine Aminotransferase 55 U/L (14-59); Albumin Level 3.1 g/dL (3.4-5.0); Alkaline Phosphatase 81 U/L (46-116); Anion Gap 12.7; Aspartate Amino Transferase 29 U/L (15-37); BUN Creatinine Ratio 13.3; Bilirubin Total 0.3 mg/dL (0.2-1.0); Calcium 8.4 mg/dL (8.5-10.1); Carbon Dioxide 25.4 mmol/L (21.0-32.0); Chloride 105 mmol/L (98-107); Estimated GFR (African America >60 (>=60); Estimated GFR (Non-African Ame >60 (>=60); Glucose 113 mg/dL (74-106); Magnesium 1.8 mg/dL (1.8-2.4); Potassium 3.1 mmol/L (3.5-5.1); Sodium 140 mmol/L (136-145); Total Protein 6.1 g/dL (6.4-8.2)
[2023-06-21 09:40] LABS: Mean Corpuscular HGB Conc 35.4 g/dL (29.9-35.2); Mean Corpuscular Hemoglobin 32.3 pg (26.7-34.0); Mean Corpuscular Volume 91.1 fL (81.0-99.0); Red Blood Count 2.48 10^6/uL (4.20-5.40); Red Cell Distribution Width 16.1 % (11.0-15.0)
[2023-06-21 09:46] VITALS: BP 170/77; PULSE 72; RESP 20; TEMP 36.6; O2SAT 95
--- NOTE | 2023-06-21 09:49 | PC.NURSE ---
0854: Pt. to [facility] amb accompanied by . Seated in recliner. VSS. PICC line intact to right arm. [place] in color around insertion site. Blood drawn easily for lab work as ordered. Both PICC lines flushed with saline. Using sterile technique, PICC line dressing changed and CHG dressing applied over insertion site. Pt. tolerated with no c/o discomfort. Remains in dept. until labs resulted. Pt. given coffee. 0944: Labs resulted, need for PRBC or PLT transfusion per standing order. Pt. and d/c'd amb. to home.
[2023-06-21 09:52] LABS: White Blood Count 0.9 10^3/uL (4.0-11.0)
[2023-06-21 09:53] LABS: Hematocrit 22.6 % (36.0-48.0); Platelet Count 19 10^3/uL (150-450)
[2023-06-21 10:06] LABS: Lymphocytes Absolute Manual 0.77 10^3/uL (1.20-3.80)
[2023-06-21 10:07] LABS: Monocytes Absolute Manual 0.01 10^3/uL (0.30-0.80)
--- NOTE | 2023-06-25 15:03 | PC.NURSE ---
1453: Pt. to [facility] amb. accompanied by for routine blood draw. PICC line in place to right upper arm. Slightly pink at insertion site. Flushes easily with good blood return. Blood drawn for labs. PICC flushed with saline. CHG cap applied to end of port. 1500: Pt. d/c'd amb. to home with .
[2023-06-25 15:35] LABS: Hemoglobin 7.7 g/dL (12.0-16.0); Lymphocytes Absolute Auto 1.4 10^3/uL (1.2-3.8); Lymphocytes Percent Auto 90.3 % (20.5-60.0); Mean Corpuscular HGB Conc 34.5 g/dL (29.9-35.2); Mean Corpuscular Hemoglobin 31.2 pg (26.7-34.0); Mean Corpuscular Volume 90.3 fL (81.0-99.0); Monocytes Percent Auto 1.9 % (1.7-12.0); Neutrophils Absolute Auto 0.1 10^3/uL (1.4-6.5); Neutrophils Percent Auto 7.8 % (43.0-75.0); Red Blood Count 2.47 10^6/uL (4.20-5.40); Red Cell Distribution Width 15.2 % (11.0-15.0); White Blood Count 1.6 10^3/uL (4.0-11.0)
--- NOTE | 2023-06-25 15:39 | PC.NURSE ---
1539: Ruth from lab calls with critical labs. HCT 22.3 and Platelets 8. Standing orders in place to transfuse platelets if less than 10. supply tech notified, will have irradiated platelets by tomorrow 06/26/23.
[2023-06-25 15:40] LABS: Hematocrit 22.3 % (36.0-48.0); Platelet Count 8 10^3/uL (150-450)
[2023-06-25 15:54] LABS: Alanine Aminotransferase 51 U/L (14-59); Albumin Globulin Ratio 1.1; Albumin Level 3.2 g/dL (3.4-5.0); Alkaline Phosphatase 89 U/L (46-116); Anion Gap 12.3; Aspartate Amino Transferase 26 U/L (15-37); BUN Creatinine Ratio 22.7; Bilirubin Total 0.2 mg/dL (0.2-1.0); Calcium 8.4 mg/dL (8.5-10.1); Carbon Dioxide 26.4 mmol/L (21.0-32.0); Chloride 108 mmol/L (98-107); Estimated GFR (African America >60 (>=60); Estimated GFR (Non-African Ame >60 (>=60); Glucose 88 mg/dL (74-106); Phosphorus 4.2 mg/dL (2.6-4.7); Potassium 3.7 mmol/L (3.5-5.1); Sodium 143 mmol/L (136-145); Total Protein 6.2 g/dL (6.4-8.2)
[2023-06-26 09:30] VITALS: BP 165/98; PULSE 76; RESP 16; TEMP 36.1; O2SAT 97
[2023-06-26 09:34] VITALS: BP 131/84; PULSE 78; RESP 18; TEMP 36.3; O2SAT 98
[2023-06-26] MEDS: 0.9 % SODIUM CHLORIDE 250 ML 120 ML IV (09:49)
--- NOTE | 2023-06-26 09:51 | PC.NURSE ---
0930 Arrive chair 2 from oncology appt. Alert oriented, no complaints. with patient. Alert oriented. PICC intact rt upper arm, site without reddness or edema. [id number]
[2023-06-26 09:53] VITALS: BP 152/92; PULSE 65; RESP 16; TEMP 36.6; O2SAT 98
[2023-06-26] MEDS: DIPHENHYDRAMINE HCL 25 MG CAPSULE PO (09:54)
[2023-06-26] MEDS: ACETAMINOPHEN 325 MG TABLET 650 MG PO (09:55)
--- NOTE | 2023-06-26 10:09 | PC.NURSE ---
platelets transfusing without difficulty. at bedside. Instructed on on s/s of rxn. ie chest pait ithing chills etc.
[2023-06-26 10:53] VITALS: BP 148/84; PULSE 63; RESP 94; TEMP 36.4
--- NOTE | 2023-06-26 11:18 | PC.NURSE ---
1100 Platelets infused. ns flush began 1120 ns flush finished. Both ports of picc flushed. Released ambulatory
[2023-06-28 08:52] LABS: Anion Gap 12.3; BUN Creatinine Ratio 14.3; Calcium 8.2 mg/dL (8.5-10.1); Carbon Dioxide 26.4 mmol/L (21.0-32.0); Chloride 107 mmol/L (98-107); Estimated GFR (African America >60 (>=60); Estimated GFR (Non-African Ame >60 (>=60); Glucose 99 mg/dL (74-106); Potassium 3.7 mmol/L (3.5-5.1); Sodium 142 mmol/L (136-145)
[2023-06-28 08:54] LABS: Hemoglobin 7.4 g/dL (12.0-16.0); Mean Corpuscular HGB Conc 35.1 g/dL (29.9-35.2); Mean Corpuscular Hemoglobin 31.4 pg (26.7-34.0); Mean Corpuscular Volume 89.4 fL (81.0-99.0); Platelet Count 31 10^3/uL (150-450); Red Blood Count 2.36 10^6/uL (4.20-5.40)
[2023-06-28 09:01] LABS: Hematocrit 21.1 % (36.0-48.0); White Blood Count 1.1 10^3/uL (4.0-11.0)
[2023-06-28 09:17] LABS: Lymphocytes Absolute Manual 0.99 10^3/uL (1.20-3.80); Monocytes Absolute Manual 0.02 10^3/uL (0.30-0.80); Segmented Neut Absolute Manual 0.08 10^3/uL (1.4-6.5)
--- NOTE | 2023-06-28 09:48 | PC.NURSE ---
0826: Pt. to [facility] for blood draw and PICC dressing change. PICC line intact and secure to right arm. Flushes easily with good blood return. Blood drawn for ordered labs. Using sterile technique, PICC line insertion site cleansed with chlorhexadine. Site pink in color without drainage or edema. Pt. denies pain to site. Sterile CHG and stat lock applied. Caps changed and lines flushed with saline. Pt. tolerated without c/o discomfort. 0910: Lab work resulted and relayed to pt. and . No need for plt or prbc transfusion at this time. Pt. d/c'd to home with .
[2023-07-02 09:39] VITALS: BP 166/87; PULSE 73; RESP 16; TEMP 36.1; O2SAT 98
[2023-07-02 09:54] LABS: Hemoglobin 7.4 g/dL (12.0-16.0); Mean Corpuscular HGB Conc 35.6 g/dL (29.9-35.2); Mean Corpuscular Hemoglobin 31.4 pg (26.7-34.0); Mean Corpuscular Volume 88.1 fL (81.0-99.0); Red Blood Count 2.36 10^6/uL (4.20-5.40); Red Cell Distribution Width 14.8 % (11.0-15.0)
[2023-07-02] MEDS: 0.9 % SODIUM CHLORIDE 250 ML 10 ML IV (10:00)
[2023-07-02 10:02] LABS: Hematocrit 20.8 % (36.0-48.0)
[2023-07-02 10:03] LABS: Platelet Count 13 10^3/uL (150-450)
[2023-07-02 10:14] LABS: Alanine Aminotransferase 64 U/L (14-59); Albumin Globulin Ratio 1.1; Albumin Level 3.4 g/dL (3.4-5.0); Alkaline Phosphatase 91 U/L (46-116); Aspartate Amino Transferase 31 U/L (15-37); BUN Creatinine Ratio 11.9; Bilirubin Total 0.4 mg/dL (0.2-1.0); Calcium 8.5 mg/dL (8.5-10.1); Carbon Dioxide 24.3 mmol/L (21.0-32.0); Chloride 106 mmol/L (98-107); Estimated GFR (African America >60 (>=60); Estimated GFR (Non-African Ame >60 (>=60); Globulin 3.2 g/dL; Glucose 100 mg/dL (74-106); Lactate Dehydrogenase 185 U/L (81-234); Potassium 3.3 mmol/L (3.5-5.1); Sodium 140 mmol/L (136-145); Total Protein 6.6 g/dL (6.4-8.2); Uric Acid 3.1 mg/dL (2.6-6.0)
[2023-07-02 10:56] LABS: Segmented Neut Absolute Manual 0.08 10^3/uL (1.4-6.5)
[2023-07-02 10:57] LABS: Band Neutrophils Absolute 0.1 10^3/uL (0.0-0.3); Lymphocytes Absolute Manual 0.88 10^3/uL (1.20-3.80)
[2023-07-02] MEDS: PALONOSETRON HCL 0.25 MG/5 ML VIAL IV (11:18)
[2023-07-02] MEDS: DEXAMETHASONE SODIUM PHOSPHATE 10 MG in 0.9 % SODIUM CHLORIDE 100 ML 200 MG IV (11:23)
--- NOTE | 2023-07-02 14:21 | PC.NURSE ---
0939: Pt. to [facility] amb. accompanied by . Weight obtained. Seated in recliner. VSS. Pt. denie c/o. Assessment complete. PICC line intact to right upper arm and without s&s of infiltration or infection. Flushes easily with good blood return on aspiration. Blood obtained for ordered labs. Pt. tolerates without c/o pain or burning to PICC site. 1000: Critical labs called. Dr. Macdonald notified. New orders obtained. Gives OK to proceed with chemo. 1118: Pt. medicated with Aloxi 0.25mg IVP as ordered. 1123: Medicated with Decadron 10mg IVPB. Pt declines wanting food or beverage. Warm blankets provided. 1201: IV Vidaza 100mg initiated at this time. Pt. instructed to notify this RN if chills, dyspnea, N/V or other adverse effects occur. Pt. relays understanding. 1211: Pt without c/o. Denies needs. 1231: IV Vidaza completed without s&s of adverse reaction. Reminded pt. and pt.'s to observe for any adverse reaction and to seek medical help if needed. Both relay understanding. PICC line flushed with saline. VSS. 1240: Pt d/c'd amb to home with . Prescriptions provided for Ondansetron and Olanzapine due to pharmacy not receiving script via computer. Reminded of oral potassium called in per Dr. Macdonald for low K+.
[2023-07-03 11:12] LABS: Hemoglobin 7.1 g/dL (12.0-16.0); Mean Corpuscular HGB Conc 35.5 g/dL (29.9-35.2); Mean Corpuscular Hemoglobin 31.3 pg (26.7-34.0); Mean Corpuscular Volume 88.1 fL (81.0-99.0); Red Blood Count 2.27 10^6/uL (4.20-5.40); Red Cell Distribution Width 14.7 % (11.0-15.0)
[2023-07-03 11:18] LABS: Platelet Count 7 10^3/uL (150-450)
[2023-07-03 11:20] LABS: Alanine Aminotransferase 55 U/L (14-59); Albumin Globulin Ratio 1.1; Albumin Level 3.4 g/dL (3.4-5.0); Alkaline Phosphatase 89 U/L (46-116); Anion Gap 18.1; Aspartate Amino Transferase 28 U/L (15-37); BUN Creatinine Ratio 14.2; Bilirubin Total 0.3 mg/dL (0.2-1.0); Calcium 8.7 mg/dL (8.5-10.1); Carbon Dioxide 22.2 mmol/L (21.0-32.0); Chloride 102 mmol/L (98-107); Estimated GFR (African America 50 (>=60); Estimated GFR (Non-African Ame 42 (>=60); Globulin 3.2 g/dL; Glucose 170 mg/dL (74-106); Potassium 3.3 mmol/L (3.5-5.1); Sodium 139 mmol/L (136-145); Total Protein 6.6 g/dL (6.4-8.2)
[2023-07-03 11:23] LABS: Band Neutrophils Absolute 0.1 10^3/uL (0.0-0.3); Segmented Neut Absolute Manual 0.92 10^3/uL (1.4-6.5)
[2023-07-03 11:24] LABS: Anisocytosis 1+; Lymphocytes Absolute Manual 0.84 10^3/uL (1.20-3.80); Monocytes Absolute Manual 0.12 10^3/uL (0.30-0.80)
[2023-07-03 11:45] VITALS: BP 156/96; PULSE 84; RESP 16; TEMP 36.6; O2SAT 96
[2023-07-03] MEDS: DEXAMETHASONE SODIUM PHOSPHATE 10 MG in 0.9 % SODIUM CHLORIDE 100 ML 303 MG IV (11:50)
[2023-07-03 12:50] VITALS: BP 144/81; PULSE 84; RESP 16; TEMP 36.6; O2SAT 94
--- NOTE | 2023-07-03 13:41 | PC.NURSE ---
1145: Pt. to [facility] amb. accompanied by . Seated in recliner. Pt. just ended office visit with Dr. Macdonald. No new changes in overall status. Dr. Macdonald aware of todays lab results. PICC line intact to right upper arm. Covered with CHG transparent dressing. No edema or drainage to site. Flushes easily with good blood return. 1150: IV Decadron initiated at this time. Pt. given warm blanket and bottled water. 1213: Decadron completed at this time. 1216: IV Vidaza initiated as ordered. Pt. cont. to deny needs or c/o. 1250: IV Vidaza completed without s&s of adverse reaction. VSS. PICC flushed with saline, and to SLF. Reminded pt to watch closely for elevated temp., chills, n/v or other adverse reactions. Instructed to seek medical help for chest pain, dyspnea or anaphylaxis. Pt. relays understanding. 1300: Pt. and pt's d/c'd amb to home.
== END 2023-07-03 23:59 | disposition home or self-care (01) ==
LOC: INF 07:27
PROVIDERS: PCP Family Medicine; Visit Provider Internal Medicine Hematology & Oncology
DX: Z51.11 Encounter for antineoplastic chemotherapy (principal); D61.818 Other pancytopenia; C92.00 Acute myeloblastic leukemia, not having achieved remission; R11.2 Nausea with vomiting, unspecified; Z85.3 Personal history of malignant neoplasm of breast; Z90.710 Acquired absence of both cervix and uterus; Z90.721 Acquired absence of ovaries, unilateral
CPT/HCPCS: 36415; 36430; 36591; 36592; 80048; 80053; 83615; 83735; 84100; 84550; 85025; 85027; 86850; 86900; 86901; 96361; 96367; 96375; 96413; G0463; J1100; J2469; J9025; P9035

== ENCOUNTER 2023-07-09 13:09 | Outpatient (OUT) | payer MEDICARE, SELFPAY ==
--- NOTE | 2023-07-09 13:37 | CT_ITS ---
The [address] [address] Patient Name: NABIL THOMPSON MRN: [id number] date: 1955 Sex: F Assigned Patient Location: CT Current Patient Location: CT Accession/Order Number: [id number] Exam Date: 07/09/2023 13:30 Report Date: 07/09/2023 13:52 At the request of: DEMETRI ALAS Procedure: CT head/brain wo con CT head/brain wo con, 07/09/2023 1:30 PM EST, OH001 INDICATION: Dizziness COMPARISON: Head CT from 05/03/2023 TECHNIQUE: CT images of the brain from skull base to vertex, including portions of the face and sinuses, were obtained without contrast. Supplemental 2D reformatted images were generated and reviewed as needed. Dose reduction techniques were achieved by using automated exposure control and/or adjustment of mA and/or kV according to patient size and/or use of iterative reconstruction technique. FINDINGS: The ventricles and sulci appear unchanged. No significant white matter disease or acute ischemia. No mass effect, acute hemorrhage, midline shift, hydrocephalus or exta-axial fluid collection. The basal cisterns are patent. The calvarium appears intact. The visualized paranasal sinuses are clear. The mastoids are clear. CT/CT head/brain wo con IMPRESSION: No CT evidence of acute intracranial abnormality. No significant interval change is seen. Electronically authenticated by: BRITTNEE OTERO Date: 07/09/2023 13:52
== END 2023-07-09 13:10 | disposition home or self-care (01) ==
LOC: CT 13:09
PROVIDERS: PCP Family Medicine; Visit Provider Internal Medicine Hematology & Oncology
DX: C92.00 Acute myeloblastic leukemia, not having achieved remission (principal); C92.92 Myeloid leukemia, unspecified in relapse
CPT/HCPCS: 70450

== ENCOUNTER 2023-07-11 17:19 | Inpatient (IN) | payer MEDICARE, SELFPAY ==
[2023-07-11] VITALS (36 sets, daily range): BP systolic 122–138; BP diastolic 84–89; PULSE 68–90; RESP 7–28; TEMP 36.4; O2SAT 76–99; BMI 41.3
--- NOTE | 2023-07-11 17:34 | CT_ITS ---
The [address] [address] Patient Name: NABIL THOMPSON MRN: [id number] date: 1955 Sex: F Assigned Patient Location: ER Current Patient Location: .[facility] Accession/Order Number: [id number] Exam Date: 07/11/2023 18:53 Report Date: 07/11/2023 20:01 At the request of: SHERMAN PUCKETT Procedure: CT abdomen pelvis w con EXAM: CT abdomen pelvis w con HISTORY: low abd pain COMPARISON: 06/18/2023. TECHNIQUE: Axial CT imaging was performed through the abdomen and pelvis with intravenous contrast. Multiplanar reformats were performed. Dose reduction techniques were achieved by using automated exposure control and/or adjustment of mA and/or kV according to patient size and/or use of iterative reconstruction technique. FINDINGS: Lung bases: Lung bases are clear. No pleural effusion. GI upper: Small hiatal hernia. Liver: Normal size and contour. A small left hepatic cyst is again noted. Gallbladder: Cholelithiasis. Biliary system: No intra or extrahepatic biliary ductal dilatation. Pancreas: Unremarkable. Spleen: Normal size. Adrenal glands: Normal adrenal glands. Kidneys/ureters: Normal contours. No hydronephrosis or visible mass. There is a 3 mm nonobstructing left intrarenal calculus, stable in appearance. Both ureters are normal in caliber and course to the bladder. Vessels: No aneurysm. Retroperitoneum: No lymphadenopathy. Small bowel: No wall thickening or dilatation. Colon: There is wall thickening of the descending colon with associated adjacent fat stranding. Scattered colonic diverticuli are noted. Appendix: Appendix is identified with normal appearance. Peritoneal cavity: No free fluid or pneumoperitoneum. Lower : Unremarkable. Bones:L5-S1 degenerative disc disease. Early spondylosis at other levels. Left L5 pars defect, stable in appearance. No acute bony abnormality. Soft tissues: No acute finding. Additional findings: None. CT/CT abdomen pelvis w con IMPRESSION: 1. Wall thickening of the descending colon with adjacent fat stranding. This is an interval development since prior study of 3 weeks ago. The appearance is compatible with colitis, either infectious or inflammatory. 2. Cholelithiasis. 3. Nonobstructing left intrarenal calculus. Electronically authenticated by: Alberto LANDA Date: 07/11/2023 20:01
--- NOTE | 2023-07-11 17:34 | ECG_ITS ---
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
--- NOTE | 2023-07-11 17:36 | ED_ITS ---
HPI - Abdominal Pain General Chief Complaint: Abdominal Pain Stated Complaint: ABD PAIN Time Seen by Provider: 07/11/23 17:23 Source: patient and family Mode of arrival: Wheelchair History of Present Illness HPI narrative: 68-year-old female presents for lower abdominal pain and cramping. She just finished a round of chemotherapy, she has AML. No persistent vomiting but she's been nauseous. No constipation or diarrhea or fever. the pain is moderate to severe and continuous. No blood in her stool. Related Data Home Medications Medication Instructions Recorded Confirmed bupropion HCl 75 mg tablet 75 mg PO DAILY 05/03/23 06/18/23 omeprazole 20 mg capsule,delayed 20 mg PO DAILY 05/03/23 06/18/23 release acyclovir 400 mg tablet 400 mg PO BID 05/25/23 06/18/23 levofloxacin 500 mg tablet 500 mg PO DAILY 06/18/23 06/18/23 olanzapine 2.5 mg tablet 2.5 mg PO .QHS 06/18/23 06/18/23 posaconazole 100 mg tablet,delayed 300 mg PO DAILY 06/18/23 06/18/23 release (Noxafil) Previous Rx's Medication Instructions Recorded amoxicillin 875 mg-potassium 1 tab PO BID 12 days #24 tabs 06/20/23 clavulanate 125 mg tablet Allergies Allergy/AdvReac Type Severity Reaction Status Date / Time hydrocodone [From Vicodin] AdvReac Verified 07/11/23 17:31 Review of Systems ROS Narrative A ten point review of systems is negative except as noted above. 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 - Intraductal carcinoma in situ of left breast (ICD-10) Myeloid leukemia ?C92.90 - Myeloid leukemia, unspecified, not having achieved remission (ICD- 10) Symptomatic anemia ?D64.9 - Anemia, unspecified (ICD-10) Surgical History History of bone marrow biopsy ?Z98.890 - Other specified postprocedural states (ICD-10) History of hysterectomy ?Z90.710 - Acquired absence of both cervix and uterus (ICD-10) S/P excision of lipoma ?Z98.890 - Other specified postprocedural states (ICD-10) ?Z86.018 - Personal history of other benign neoplasm (ICD-10) Family History Father Family history of cancer Family history of hypertension Mother Family history of hypertension Grandfather Family history of cancer Grandmother Family history of cancer Aunt Family history of cancer Social History Within the past year, how often did you have a drink containing alcohol: monthly or less Within the past year, how many standard drinks containing alcohol did you have on a typical day: 1 or 2 Total score: 0 Score interpretation: A score less than 3 is consistent with normal alcohol consumption. Smoking status: Never smoker Gender Identity: female Exam Narrative Exam Narrative: Nurses note and vital signs reviewed and patient is not hypoxic. General: The patient seems to prefer to keep her eyes closed. She is in no distress. She appears uncomfortable. Skin: Warm, dry, no pallor noted. There is no rash noted. Head: Normocephalic, atraumatic Eye: Normal conjunctiva, no drainage Ears, Nose, Mouth, and Throat: oral mucosa is moist. Nares patent. Cardiovascular: Regular Rate and Rhythm Respiratory: Patient is in no distress, no accessory muscle use, lungs are clear to auscultation, no wheezing, rales or rhonchi Back: non-tender GI: low abdominal tenderness present Musculoskeletal: The patient has no evidence of calf tenderness, no pitting kenny ma, symmetrical pulses noted bilaterally Neurological: A&O, normal speech Psychiatric: Cooperative Constitutional Vital Signs, click to edit/add: Last Vital Signs Temp 97.6 F 07/11/23 17:25 Pulse 79 07/11/23 17:25 Resp 18 07/11/23 17:25 BP 138/89 07/11/23 17:25 Pulse Ox 99 07/11/23 17:25 O2 Del Method Room Air 07/11/23 17:25 Course Vital Signs Vital signs: Vital Signs Temperature 97.6 F 07/11/23 17:25 Pulse Rate 79 07/11/23 17:25 Respiratory Rate 18 07/11/23 17:25 Blood Pressure 138/89 07/11/23 17:25 Pulse Oximetry 99 07/11/23 17:25 Oxygen Delivery Method Room Air 07/11/23 17:25 Temperature 97.6 F 07/11/23 17:25 Pulse Rate 79 07/11/23 17:25 Respiratory Rate 18 07/11/23 17:25 Blood Pressure 138/89 07/11/23 17:25 Pulse Oximetry 99 07/11/23 17:25 Oxygen Delivery Method Room Air 07/11/23 17:25 MDM - Abdominal Pain MDM Narrative Medical decision making narrative: tests are ordered including CAT scan and the patient signout to Dr. Nunez at change of shift at 7 PM. Differential Diagnosis Differential diagnosis: Likely abdominal pain, constipation, diverticulitis, gastroenteritis and small bowel obstruction Lab Data Attestation: I reviewed the patient's lab results. Labs: Lab Results 07/11/23 Range/Units 18:00 WBC 0.9 L* (4.0-11.0) 10^3/uL RBC 2.96 L (4.20-5.40) 10^6/uL Hgb 9.1 L (12.0-16.0) g/dL Hct 26.4 L (36.0-48.0) % MCV 89.2 (81.0-99.0) fL MCH 30.7 (26.7-34.0) pg MCHC 34.5 (29.9-35.2) g/dL RDW 15.1 H (11.0-15.0) % Plt Count 9 L* (150-450) 10^3/uL Sodium 133 L (136-145) mmol/L Potassium 3.4 L (3.5-5.1) mmol/L Chloride 100 (98-107) mmol/L Carbon Dioxide 23.2 (21.0-32.0) mmol/L Anion Gap 13.2 BUN 31.0 H (7.0-18.0) mg/dL Creatinine 1.19 H (0.55-1.02) mg/dL Est GFR ( Amer) 54 L (>=60) Est GFR (Non-Af Amer) 45 L (>=60) BUN/Creatinine Ratio 26.1 Glucose 146 H (74-106) mg/dL Calcium 9.1 (8.5-10.1) mg/dL Total Bilirubin 0.6 (0.2-1.0) mg/dL Direct Bilirubin 0.2 (0.0-0.2) mg/dL AST 16 (15-37) U/L ALT 33 (14-59) U/L Alkaline Phosphatase 77 (46-116) U/L Total Protein 5.8 L (6.4-8.2) g/dL Albumin 3.1 L (3.4-5.0) g/dL Globulin 2.7 g/dL Albumin/Globulin Ratio 1.1 Amylase 79 (25-115) U/L Discharge Plan Discharge Patient Disposition: Still a Patient
--- NOTE | 2023-07-11 17:37 | XR_ITS ---
The [address] [address] Patient Name: NABIL THOMPSON MRN: [id number] date: 1955 Sex: F Assigned Patient Location: ER Current Patient Location: ER Accession/Order Number: [id number] Exam Date: 07/11/2023 17:40 Report Date: 07/11/2023 17:56 At the request of: SHERMAN PUCKETT Procedure: XR chest 1V Exam: Radiographs: XR chest 1V Reason for exam: aml, abd pain Comparison: Chest x-ray dated 05/27/2023 XR/XR chest 1V IMPRESSION: Right PICC with tip in the low SVC. Left chest wall surgical clips. Remainder of the chest is unremarkable. Electronically authenticated by: LOBITO HUERTA Date: 07/11/2023 17:56
[2023-07-11] MEDS: 0.9 % SODIUM CHLORIDE 1,000 ML 1000 ML IV (18:11)
[2023-07-11] MEDS: ONDANSETRON PF 4 MG/2 ML VIAL IV ×2 (18:13→20:17)
[2023-07-11] MEDS: MORPHINE SULFATE 4 MG/ML VIAL IV (18:13)
[2023-07-11 18:26] LABS: Hematocrit 26.4 % (36.0-48.0); Hemoglobin 9.1 g/dL (12.0-16.0); Mean Corpuscular HGB Conc 34.5 g/dL (29.9-35.2); Mean Corpuscular Hemoglobin 30.7 pg (26.7-34.0); Mean Corpuscular Volume 89.2 fL (81.0-99.0); Red Blood Count 2.96 10^6/uL (4.20-5.40); Red Cell Distribution Width 15.1 % (11.0-15.0)
[2023-07-11 18:30] LABS: Platelet Count 9 10^3/uL (150-450); White Blood Count 0.9 10^3/uL (4.0-11.0)
[2023-07-11 18:43] LABS: Alanine Aminotransferase 33 U/L (14-59); Albumin Globulin Ratio 1.1; Albumin Level 3.1 g/dL (3.4-5.0); Alkaline Phosphatase 77 U/L (46-116); Amylase 79 U/L (25-115); Anion Gap 13.2; Aspartate Amino Transferase 16 U/L (15-37); BUN Creatinine Ratio 26.1; Bilirubin Direct 0.2 mg/dL (0.0-0.2); Bilirubin Total 0.6 mg/dL (0.2-1.0); Calcium 9.1 mg/dL (8.5-10.1); Carbon Dioxide 23.2 mmol/L (21.0-32.0); Chloride 100 mmol/L (98-107); Estimated GFR (African America 54 (>=60); Estimated GFR (Non-African Ame 45 (>=60); Globulin 2.7 g/dL; Glucose 146 mg/dL (74-106); Potassium 3.4 mmol/L (3.5-5.1); Sodium 133 mmol/L (136-145); Total Protein 5.8 g/dL (6.4-8.2)
[2023-07-11 18:46] LABS: Segmented Neut Absolute Manual 0.33 10^3/uL (1.4-6.5)
[2023-07-11 18:47] LABS: Band Neutrophils Absolute 0.1 10^3/uL (0.0-0.3); Lymphocytes Absolute Manual 0.45 10^3/uL (1.20-3.80); Monocytes Absolute Manual 0.05 10^3/uL (0.30-0.80)
[2023-07-11] MEDS: HYDROMORPHONE HCL 2 MG/ML VIAL 1 MG IV (20:45)
[2023-07-11] MEDS: BISACODYL 10 MG RECTAL SUPPOSITORY PR (22:04)
[2023-07-11] MEDS: 0.9 % SODIUM CHLORIDE 1,000 ML 125 ML IV (22:28)
--- NOTE | 2023-07-11 22:47 | ED_ITS ---
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 Macdonald, presents for evaluation of lower abdominal pain with nausea. She states that her last bowel movement was approximately 3 days ago. During her last chemotherapy treatment she received IV steroids which was something new for her according to her . He thinks this may have caused her to have become constipated. The patient states she started feeling something hard in her abdomen 2 days ago and has not had a bowel movement since that time. She has not had a fever. Routine labs showed a platelet count of 9 and white count of 0.9. This is apparently not new for her and she is scheduled to have platelets tomorrow. The patient was seen and evaluated. She is uncomfortable after receiving morphine and still nauseated despite getting Zofran. She was remedicated with a dose of Dilaudid and Zofran and is continually receiving IV fluids. CT scan of the abdomen and pelvis shows wall thickening of the descending colon with adjacent fat stranding which was an interval development since the prior study 3 weeks ago. The appearance was noted to be compatible with colitis either infectious or inflammatory. It also showed cholelithiasis and a nonobstructing left intrarenal calculus. it does not show a bowel obstruction. I discussed the results of this can and labs with Dr. Macdonald, he requests that she be given a suppository and something orally to stimulate her bowels and admitted for further treatment. He suggested IV Zosyn antibiotic as she is on Levaquin prophylactically. Platelets are ordered for tomorrow morning but i called and ordered them to be given HATTIE. This was discussed with the hospitalist who does not feel comfortable admitting her to his service due to her thrombocytopenia and neutropenia. He suggests that she be transferred to a tertiary care center for her treatment. Dr Macdonald was updated and [facility], oncology was consulted for transfer I spoke with Dr Mccrary who disagrees with the suppository due to the patient's neutropenia, as it could introduce infection, but otherwise agrees with her management. She was accepted for transfer to the Leukemia floor at [facility], however there is a wait at this time for a bed. Platelets were available at 0230: she was given 650 mg po tylenol and 25 mo benadryl and the platelets were transfused. signed consent at patients request. She has remained stable during the night without any development of fever and platelets were administered in the ER 0605: Case discussed with DR VARGAS who will accept the patient until a bed is available at [facility]. Critical care time 60 minutes Related Data Home Medications Medication Instructions Recorded Confirmed bupropion HCl 75 mg tablet 75 mg PO DAILY 05/03/23 07/11/23 omeprazole 20 mg capsule,delayed 20 mg PO DAILY 05/03/23 07/11/23 release acyclovir 400 mg tablet 400 mg PO BID 05/25/23 07/11/23 levofloxacin 500 mg tablet 500 mg PO DAILY 06/18/23 07/11/23 olanzapine 2.5 mg tablet 2.5 mg PO .QHS 06/18/23 07/11/23 posaconazole 100 mg tablet,delayed 300 mg PO DAILY 06/18/23 07/11/23 release (Noxafil) loratadine 10 mg tablet (Claritin) 10 mg PO Q24H 07/11/23 07/11/23 ondansetron 4 mg disintegrating 4 mg PO Q6H PRN nausea and vomiting 07/11/23 07/11/23 tablet Allergies Allergy/AdvReac Type Severity Reaction Status Date / Time hydrocodone [From Vicodin] AdvReac Verified 07/11/23 17:31 [facility] Medical History (Updated 07/12/23 @ 06:14 by Melvi Nunez MD) Depression ?F32.A - Depression, unspecified (ICD-10) GERD (gastroesophageal reflux disease) ?K21.9 - Gastro-esophageal reflux disease without esophagitis (ICD-10) History of blood transfusion ?Z92.89 - Personal history of other medical treatment (ICD-10) 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 - Intraductal carcinoma in situ of left breast (ICD-10) Myeloid leukemia ?C92.90 - Myeloid leukemia, unspecified, not having achieved remission (ICD- 10) Symptomatic anemia ?D64.9 - Anemia, unspecified (ICD-10) Surgical History History of bone marrow biopsy ?Z98.890 - Other specified postprocedural states (ICD-10) History of hysterectomy ?Z90.710 - Acquired absence of both cervix and uterus (ICD-10) S/P excision of lipoma ?Z98.890 - Other specified postprocedural states (ICD-10) ?Z86.018 - Personal history of other benign neoplasm (ICD-10) Family History Father Family history of cancer Family history of hypertension Mother Family history of hypertension Grandfather Family history of cancer Grandmother Family history of cancer Aunt Family history of cancer Social History Within the past year, how often did you have a drink containing alcohol: monthly or less Within the past year, how many standard drinks containing alcohol did you have on a typical day: 1 or 2 Total score: 0 Score interpretation: A score less than 3 is consistent with normal alcohol consumption. Smoking status: Never smoker Gender Identity: female Exam Constitutional Vital Signs, click to edit/add: Last Vital Signs Temp 97.3 F L 07/12/23 06:05 Pulse 108 H 07/12/23 06:05 Resp 18 07/12/23 06:05 BP 159/89 H 07/12/23 06:05 Pulse Ox 97 07/12/23 06:05 O2 Del Method Nasal Cannula 07/12/23 03:08 O2 Flow Rate 2 07/12/23 03:08 Course Vital Signs Vital signs: Vital Signs Temperature 97.6 F 07/11/23 17:25 Pulse Rate 79 07/11/23 17:25 Respiratory Rate 18 07/11/23 17:25 Blood Pressure 138/89 07/11/23 17:25 Pulse Oximetry 99 07/11/23 17:25 Oxygen Delivery Method Room Air 07/11/23 17:25 Temperature 97.3 F L 07/12/23 06:05 Pulse Rate 108 H 07/12/23 06:05 Respiratory Rate 18 07/12/23 06:05 Blood Pressure 159/89 H 07/12/23 06:05 Pulse Oximetry 97 07/12/23 06:05 Oxygen Delivery Method Nasal Cannula 07/12/23 03:08 Oxygen Delivery Flow Rate 2 07/12/23 03:08 MDM - Abdominal Pain Lab Data Labs: Lab Results 07/11/23 07/12/23 07/12/23 Range/Units 18:00 00:10 04:40 WBC 0.9 L* (4.0-11.0) 10^3/uL RBC 2.96 L (4.20-5.40) 10^6/uL Hgb 9.1 L (12.0-16.0) g/dL Hct 26.4 L (36.0-48.0) % MCV 89.2 (81.0-99.0) fL MCH 30.7 (26.7-34.0) pg MCHC 34.5 (29.9-35.2) g/dL RDW 15.1 H (11.0-15.0) % Plt Count 9 L* (150-450) 10^3/uL Seg Neuts % (Manual) 37.0 Band Neutrophils % 6.0 H (0-5) % Lymphocytes % (Manual) 51.0 (20.5-60.0) % Monocytes % (Manual) 6.0 (1.7-12.0) % Eosinophils % (Manual) 0.0 L (0.9-7.0) % Basophils % (Manual) 0.0 L (0.2-2.0) % Neutrophils # (Manual) 0.33 L (1.4-6.5) 10^3/uL Band Neutrophils # 0.1 (0.0-0.3) 10^3/uL Lymphocytes # (Manual) 0.45 L (1.20-3.80) 10^3/uL Monocytes # (Manual) 0.05 L (0.30-0.80) 10^3/uL Eosinophils # (Manual) 0.00 (0.00-0.70) 10^3/uL Basophils # (Manual) 0.00 (0.00-0.10) 10^3/uL Sodium 133 L (136-145) mmol/L Potassium 3.4 L (3.5-5.1) mmol/L Chloride 100 (98-107) mmol/L Carbon Dioxide 23.2 (21.0-32.0) mmol/L Anion Gap 13.2 BUN 31.0 H (7.0-18.0) mg/dL Creatinine 1.19 H (0.55-1.02) mg/dL Est GFR ( Amer) 54 L (>=60) Est GFR (Non-Af Amer) 45 L (>=60) BUN/Creatinine Ratio 26.1 Glucose 146 H (74-106) mg/dL Calcium 9.1 (8.5-10.1) mg/dL Total Bilirubin 0.6 (0.2-1.0) mg/dL Direct Bilirubin 0.2 (0.0-0.2) mg/dL AST 16 (15-37) U/L ALT 33 (14-59) U/L Alkaline Phosphatase 77 (46-116) U/L Total Protein 5.8 L (6.4-8.2) g/dL Albumin 3.1 L (3.4-5.0) g/dL Globulin 2.7 g/dL Albumin/Globulin Ratio 1.1 Amylase 79 (25-115) U/L Lipase 60.0 (16.0-77.0) U/L Urine Color Yellow (YELLOW) Urine Clarity Clear (CLEAR) Urine pH 5.5 (5.0-9.0) Ur Specific [place] 1.025 (1.005-1.025) Urine Protein Negative (NEG/TRACE) mg/dL Urine Glucose (UA) Negative (NEGATIVE) mg/dL Urine Ketones Negative (NEGATIVE) mg/dL Urine Occult Blood Negative (NEGATIVE) Urine Nitrite Negative (NEGATIVE) Urine Bilirubin Negative (NEGATIVE) Urine Urobilinogen 0.2 (0.2-1.0) EU/dL Ur Leukocyte Esterase Negative (NEGATIVE) Urine RBC 0-2 (0-2) #/HPF Urine WBC 2-5 A (NONE SEEN) #/HPF Ur Squamous Epith Cells Moderate A (NONE/RARE) #/LPF Ur Transition Epith Cell Rare A (NONE SEEN) #/LPF Urine Crystals None seen (None Seen) #/HPF Urine Bacteria None seen (NONE SEEN) #/HPF Urine Casts None seen (NONE SEEN) #/LPF Urine Mucus None seen (NONE SEEN) Ur Culture Indicated? No Blood Type O Positive Antibody Screen Negative Discharge Plan Discharge Chief Complaint: Abdominal Pain Clinical Impression: Abdominal pain, AML (acute myeloblastic leukemia), Colitis, Pancytopenia, Thrombocytopenia Patient Disposition: Admitted as Observation Time of Disposition Decision: :13 Condition: Fair
[2023-07-11] MEDS: PROMETHAZINE HCL 25 MG/ML VIAL 12.5 MG IV (23:50)
[2023-07-12] VITALS (61 sets, daily range): BP systolic 109–159; BP diastolic 63–105; PULSE 84–127; RESP 9–42; TEMP 36.3–37.1; O2SAT 86–98; BMI 42.7
[2023-07-12] MEDS: PIPERACILLIN SODIUM/TAZOBACTAM 3.375 GM in 0.9 % SODIUM CHLORIDE 50 ML IV ×3 (00:13→17:08)
[2023-07-12 00:44] LABS: Bilirubin Urine NEGATIVE (NEGATIVE); Blood Urine NEGATIVE (NEGATIVE); Clarity Urine CLEAR (CLEAR); Color Urine YELLOW (YELLOW); Glucose Urine UA NEGATIVE (NEGATIVE); Ketones Urine NEGATIVE (NEGATIVE); Leukocyte Esterase Urine NEGATIVE (NEGATIVE); Nitrite Urine NEGATIVE (NEGATIVE); Protein Urine NEGATIVE (NEG/TRACE); Specific Gravity Urine 1.025 (1.005-1.025); Urobilinogen Urine 0.2 EU/dL (0.2-1.0); pH Urine 5.5 (5.0-9.0)
[2023-07-12 00:53] LABS: Bacteria Urine NONE SEEN #/HPF (NONE SEEN); Cast Seen? NONE SEEN #/LPF (NONE SEEN); Crystals Seen? None Seen #/HPF (None Seen); Mucus Urine NONE SEEN (NONE SEEN); RBC Urine 0-2 #/HPF (0-2); Squamous Epithelial Cell Urine MODERATE #/LPF (NONE/RARE); Transitional Epi Cells Urine RARE #/LPF (NONE SEEN)
[2023-07-12 00:54] LABS: Urine Culture Indicated NO
[2023-07-12] MEDS: ACETAMINOPHEN 325 MG TABLET 650 MG PO (02:41)
[2023-07-12] MEDS: DIPHENHYDRAMINE HCL 50 MG/ML (1ML) VIAL 25 MG IV (03:02)
--- NOTE | 2023-07-12 03:09 | PC.NURSE ---
Pt had small soft BM at this time time
[2023-07-12] MEDS: MAGNESIUM HYDROXIDE 2,400 MG/10 ML ORAL.SUSP 2400 MG PO (06:46)
[2023-07-12] MEDS: LACTATED RINGER'S SOLUTION 1,000 ML 125 ML IV ×2 (09:19→17:08)
[2023-07-12] MEDS: MORPHINE SULFATE 2 MG/ML SYRINGE IV (09:19)
--- NOTE | 2023-07-12 10:15 | CM.NOTE ---
Important Message From Medicare discussed with pt, pt verbalizes understanding and signs paper. Original given to pt and copy placed on pt's chart.
--- NOTE | 2023-07-12 11:41 | CM.NOTE ---
Rounded with Dr. Osuna this AM. Pt. continues to [facility]. Pt. very lethargic and uncomfortable at this time.
--- NOTE | 2023-07-12 12:23 | P.HP_ITS ---
H&P: HPI History of Present Illness Chief complaint: Abdominal pain Narrative: 68 y o female with hx of AML, finished second course of chemo past sunday. Was doing well until last morning when she started to feel nauseous, abdominal discomfort and inability to pass stools. She called her oncologist who recommen ded her to go to ED. In ED, W/u indicated sepsis sec to left sided colitis, pancytopenia. Patient was accepted for transfer to [facility] but due to bed availability, admitted until a bed becomes available at [facility] She reports feeling tired, weak, nauseous with poor appetite, persistent abdominal pain along with constipation. No diarrhea. no vomiting. Review of Systems ROS Status of ROS 10 or more systems reviewed and unremarkable except as noted in history and below [facility] Medical History (Updated 07/12/23 @ 12:32 by Shaikh Enrrique MD) Depression ?F32.A - Depression, unspecified (ICD-10) GERD (gastroesophageal reflux disease) ?K21.9 - Gastro-esophageal reflux disease without esophagitis (ICD-10) History of blood transfusion ?Z92.89 - Personal history of other medical treatment (ICD-10) 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 - Intraductal carcinoma in situ of left breast (ICD-10) Myeloid leukemia ?C92.90 - Myeloid leukemia, unspecified, not having achieved remission (ICD- 10) Symptomatic anemia ?D64.9 - Anemia, unspecified (ICD-10) Surgical History History of bone marrow biopsy ?Z98.890 - Other specified postprocedural states (ICD-10) History of hysterectomy ?Z90.710 - Acquired absence of both cervix and uterus (ICD-10) S/P excision of lipoma ?Z98.890 - Other specified postprocedural states (ICD-10) ?Z86.018 - Personal history of other benign neoplasm (ICD-10) Family History Father Family history of cancer Family history of hypertension Mother Family history of hypertension Grandfather Family history of cancer Grandmother Family history of cancer Aunt Family history of cancer Social History Within the past year, how often did you have a drink containing alcohol: monthly or less Within the past year, how many standard drinks containing alcohol did you have on a typical day: 1 or 2 Total score: 0 Score interpretation: A score less than 3 is consistent with normal alcohol consumption. Smoking status: Never smoker Do you think of yourself as: straight/heterosexual Gender Identity: female Meds Home Medications and Allergies Home Medications Medication Instructions Recorded Confirmed Type bupropion HCl 75 mg tablet 75 mg PO DAILY 05/03/23 07/11/23 History omeprazole 20 mg capsule,delayed 20 mg PO DAILY 05/03/23 07/11/23 History release acyclovir 400 mg tablet 400 mg PO BID 05/25/23 07/11/23 History levofloxacin 500 mg tablet 500 mg PO DAILY 06/18/23 07/11/23 History olanzapine 2.5 mg tablet 2.5 mg PO .QHS 06/18/23 07/11/23 History posaconazole 100 mg tablet,delayed 300 mg PO DAILY 06/18/23 07/11/23 History release (Noxafil) loratadine 10 mg tablet (Claritin) 10 mg PO Q24H 07/11/23 07/11/23 History ondansetron 4 mg disintegrating 4 mg PO Q6H PRN nausea and vomiting 07/11/23 07/11/23 History tablet Allergies Allergy/AdvReac Type Severity Reaction Status Date / Time hydrocodone [From Vicodin] AdvReac Verified 07/11/23 17:31 Exam Constitutional Vital Signs, click to edit/add: Last Vital Signs Temp 98.8 F 07/12/23 06:43 Pulse 127 H 07/12/23 11:54 Resp 20 07/12/23 06:43 BP 150/99 H 07/12/23 06:43 Pulse Ox 86 L 07/12/23 11:54 O2 Del Method Room Air 07/12/23 06:43 O2 Flow Rate 2 07/12/23 06:16 Documenting provider has reviewed patient's vital signs: yes Common normals: oriented x3 General appearance: cooperative, lethargic and ill appearing Nutritional appearance: obese HENMT Common normals: normocephalic and head/scalp atraumatic Respiratory Common normals: normal respiratory effort and no use of accessory muscles Effort & inspection: able to speak in complete sentences Cardio Common normals: regular rhythm, S1 normal heart sound and S2 normal heart sound Rate: tachycardic GI Common normals: Normal to inspection, nondistended, normoactive bowel sounds present Palpation: soft Extremity Common normals: no clubbing, cyanosis or edema Neuro Common normals: oriented x3, moves all extremities and no focal motor deficits Psych Common normals: mental status grossly normal, denies homicidal ideation and denies suicidal ideation Results Labs Labs: Short CBC 07/11/23 Range/Units 18:00 WBC 0.9 L* (4.0-11.0) 10^3/uL Hgb 9.1 L (12.0-16.0) g/dL Hct 26.4 L (36.0-48.0) % Plt Count 9 L* (150-450) 10^3/uL BMP 07/11/23 18:00 Sodium 133 L Potassium 3.4 L Chloride 100 Carbon Dioxide 23.2 BUN 31.0 H Creatinine 1.19 H Glucose 146 H Calcium 9.1 Liver Function 07/11/23 Range/Units 18:00 Total Bilirubin 0.6 (0.2-1.0) mg/dL Direct Bilirubin 0.2 (0.0-0.2) mg/dL AST 16 (15-37) U/L ALT 33 (14-59) U/L Alkaline Phosphatase 77 (46-116) U/L Albumin 3.1 L (3.4-5.0) g/dL Urine 07/12/23 Range/Units 00:10 Urine Color Yellow (YELLOW) Urine Clarity Clear (CLEAR) Urine pH 5.5 (5.0-9.0) Ur Specific [place] 1.025 (1.005-1.025) Urine Protein Negative (NEG/TRACE) mg/dL Urine Glucose (UA) Negative (NEGATIVE) mg/dL Assessment and Plan Assessment and Plan (1) Sepsis: Assessment and Plan: HR > 120, RR > 3O, WBC less than 1, source is colitis. Still tachycardic - c/w IVF. BP is stable. C/w IV zosyn. Qualifiers: Sepsis type: sepsis due to unspecified organism Sepsis acute organ dysfunction status: without acute organ dysfunction Qualified Code(s): A41.9 - Sepsis, unspecified organism (2) Colitis: Assessment and Plan: Left sided colitis on CT. Has nausea, poor appetite and abdominal pain. C/w zosyn, use zofran as needed. (3) Pancytopenia: Assessment and Plan: due to chemotherapy. on neutrophilic precautions. On acyclovir, pesconazole and levaquin for px. C/w same, switch from Levaquin to zosyn. No active bleeding - had platelet tx last night. Consult oncology. (4) AML (acute myeloblastic leukemia): Assessment and Plan: finished second round of chemo past sunday. Oncology consulted. (5) Depression: Assessment and Plan: C/w home meds Plan C/w IVF, IV abx. Awaiting bed at [facility]. Close monitoring, at high risk of clinical detioriation.
[2023-07-12] MEDS: HYDROMORPHONE HCL 0.5 MG/0.5 ML SYRINGE IV ×2 (13:00→17:09)
[2023-07-12] MEDS: PANTOPRAZOLE SODIUM 40 MG VIAL IV (14:27)
[2023-07-12] MEDS: CETIRIZINE HCL 10 MG TABLET PO (21:12)
[2023-07-12] MEDS: ONDANSETRON PF 4 MG/2 ML VIAL IV (21:12)
[2023-07-12] MEDS: ACYCLOVIR 200 MG CAPSULE 400 MG PO (21:12)
[2023-07-12] MEDS: OLANZapine 5 MG TABLET 2.5 MG PO (21:12)
[2023-07-12] MEDS: HYDROMORPHONE HCL 1 MG/ML CARTRIDGE IVP (21:12)
[2023-07-13] VITALS (17 sets, daily range): BP systolic 117–138; BP diastolic 73–79; PULSE 82–113; RESP 18–20; TEMP 36.4–36.8; O2SAT 91–97
[2023-07-13] MEDS: PIPERACILLIN SODIUM/TAZOBACTAM 3.375 GM in 0.9 % SODIUM CHLORIDE 50 ML IV ×2 (01:52→09:11)
[2023-07-13] MEDS: LACTATED RINGER'S SOLUTION 1,000 ML 125 ML IV ×2 (01:53→08:47)
[2023-07-13] MEDS: ONDANSETRON PF 4 MG/2 ML VIAL IV ×2 (03:51→09:11)
[2023-07-13] MEDS: HYDROMORPHONE HCL 1 MG/ML CARTRIDGE IVP ×3 (03:51→14:16)
[2023-07-13 05:13] LABS: Immature Granulocytes Abs Auto 0.11 10^3/uL (0.00-0.03); Immature Granulocytes Pct Auto 15.9 % (0.0-0.5); Lymphocytes Absolute Auto 0.3 10^3/uL (1.2-3.8); Lymphocytes Percent Auto 39.1 % (20.5-60.0); Mean Corpuscular HGB Conc 33.7 g/dL (29.9-35.2); Mean Corpuscular Hemoglobin 30.7 pg (26.7-34.0); Mean Corpuscular Volume 91.1 fL (81.0-99.0); Monocytes Absolute Auto 0.1 10^3/uL (0.3-0.8); Neutrophils Absolute Auto 0.2 10^3/uL (1.4-6.5); Red Blood Count 2.25 10^6/uL (4.20-5.40); Red Cell Distribution Width 15.7 % (11.0-15.0)
[2023-07-13 05:32] LABS: Alanine Aminotransferase 23 U/L (14-59); Albumin Globulin Ratio 0.7; Albumin Level 2.1 g/dL (3.4-5.0); Alkaline Phosphatase 50 U/L (46-116); Anion Gap 8.2; Aspartate Amino Transferase 15 U/L (15-37); BUN Creatinine Ratio 28.9; Bilirubin Total 0.7 mg/dL (0.2-1.0); Calcium 8.3 mg/dL (8.5-10.1); Carbon Dioxide 26.1 mmol/L (21.0-32.0); Chloride 102 mmol/L (98-107); Estimated GFR (African America 53 (>=60); Estimated GFR (Non-African Ame 44 (>=60); Globulin 2.9 g/dL; Glucose 140 mg/dL (74-106); Potassium 4.3 mmol/L (3.5-5.1); Sodium 132 mmol/L (136-145)
[2023-07-13 06:08] LABS: Hematocrit 20.5 % (36.0-48.0); Hemoglobin 6.9 g/dL (12.0-16.0); White Blood Count 0.7 10^3/uL (4.0-11.0)
[2023-07-13 06:09] LABS: Platelet Count 19 10^3/uL (150-450)
[2023-07-13] MEDS: BUPROPION HCL 75 MG TABLET PO (08:47)
[2023-07-13] MEDS: ACYCLOVIR 200 MG CAPSULE 400 MG PO (08:47)
--- NOTE | 2023-07-13 12:02 | CM.NOTE ---
Rounds made with Dr. Osuna. Awaiting bed at [facility] for transfer. Discharge when bed available.
--- NOTE | 2023-07-13 12:16 | P.IMPN_ITS ---
Progress Note: A&P Assessment and Plan (1) Sepsis: Assessment and Plan: Stable hemodynamics now. Decrease IVF to 100 ml/hr C/w zosyn for colitis. Qualifiers: Sepsis type: sepsis due to unspecified organism Sepsis acute organ dysfunction status: without acute organ dysfunction Qualified Code(s): A41.9 - Sepsis, unspecified organism (2) Colitis: Assessment and Plan: Descending colon colitis on CT scan. Pain and nausea is better. Patient now drinking liquid. Still feels nauseous but improved from before. C/w IVF, Anti emetics as needed, c/w zosyn (3) MANOJ (acute kidney injury): Assessment and Plan: Normal renal function at baseline. Cr above baseline likley due to sepsis, colitis and poor PO intake resulting in pre renal MANOJ Monitor I/O, c/w IVF. (4) Pancytopenia: Assessment and Plan: due to chemotherapy. Monitor. Hb below 7 today - ordered one unit PRBC. Repeat H&H later today. On acyclovir and antifungal for px because of neutropenia (5) AML (acute myeloblastic leukemia): Assessment and Plan: s/p second round of chemo past Sunday. (6) Depression: Assessment and Plan: C/w home meds. Internal Medicine - PN: Subj Subjective Interval history: Seen and examined. Feeling better than before. no overnight events. Still only can barely drink liquid. has poor PO intake due to nausea. Exam Constitutional Vital Signs, click to edit/add: Last Vital Signs Temp 97.6 F 07/13/23 04:06 Pulse 87 07/13/23 10:12 Resp 20 07/13/23 04:06 BP 120/73 07/13/23 04:06 Pulse Ox 91 L 07/13/23 10:12 O2 Del Method Nasal Cannula 07/13/23 04:45 O2 Flow Rate 1 07/13/23 04:45 Documenting provider has reviewed patient's vital signs: yes Common normals: oriented x3 General appearance: cooperative and ill appearing Nutritional appearance: obese Respiratory Common normals: normal respiratory effort and no use of accessory muscles Effort & inspection: able to speak in complete sentences Cardio Common normals: regular rhythm, S1 normal heart sound and S2 normal heart sound Rate: tachycardic GI Inspection: abdominal distension Palpation: soft and tender Details: LLQ Neuro Common normals: oriented x3, moves all extremities and no focal motor deficits Internal Medicine - PN: Obj Da Labs Labs: Laboratory Results - last 24 hr 07/12/23 07/13/23 04:40 05:04 WBC 0.7 L* RBC 2.25 L Hgb 6.9 L* D Hct 20.5 L* MCV 91.1 MCH 30.7 MCHC 33.7 RDW 15.7 H Plt Count 19 L* MPV 0.0 L Neut % (Auto) 32.0 L Lymph % (Auto) 39.1 [place] % (Auto) 13.0 H Eos % (Auto) 0.0 L Baso % (Auto) 0.0 L Neut # (Auto) 0.2 L Lymph # (Auto) 0.3 L [place] # (Auto) 0.1 L Eos # (Auto) 0.0 Baso # (Auto) 0.0 Abs Immat Gran (auto) 0.11 H Imm/Tot Granulo (auto) 15.9 H Sodium 132 L Potassium 4.3 Chloride 102 Carbon Dioxide 26.1 Anion Gap 8.2 BUN 35.0 H Creatinine 1.21 H Est GFR ( Amer) 53 L Est GFR (Non-Af Amer) 44 L BUN/Creatinine Ratio 28.9 Glucose 140 H Calcium 8.3 L Total Bilirubin 0.7 AST 15 ALT 23 Alkaline Phosphatase 50 Total Protein 5.0 L Albumin 2.1 L Globulin 2.9 Albumin/Globulin Ratio 0.7 Blood Type O Positive Antibody Screen Negative Crossmatch See Detail Urinary Catheter Management Urinary Catheter Management Urethral: Cath placed during this visit: yes Urethral indwelling: Yes Reason for continuing: measure accurate output Insertion date: 07/12/23 Insertion time: 13:00
[2023-07-13] MEDS: DIPHENHYDRAMINE HCL 50 MG/ML (1ML) VIAL 25 MG IV (14:15)
[2023-07-13] MEDS: ACETAMINOPHEN 500 MG TABLET 1000 MG PO (14:15)
--- NOTE | 2023-07-13 17:41 | PC.NURSE ---
Report called to MAMTA Sidhu at the [facility]. RN gave full report with estimated departure time from hospital.
--- OUTSIDE RECORDS SUMMARY | 2023-08-21 16:09 | XMS_ITS | CCD ---
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 Name Role Phone KARI, MELISSA SHAHID Primary Care Unavailable WONDERHOUSTON, MELISSA SHAHID Consulting Unavailable ELE PANIAGUA Attending Brenna vailable WONDERLY, DR MELISSA Banuelos Attending Unavailable WONDERLY, DR MELISSA Banuelos Consulting Unavailable WONDERLY, DR MELISSA Banuelos Primary Care Unavailable WONDERLY, DR MELISSA Banuelos Admitting Unavailable Melissa Pierce MD Primary Care Provider MARTHA MALIK I Admitting Unavailable MARTHA MALIK I Attending Unavailable WONDERMELISSA CONRAD Primary Care Unavailable Melissa Pierce MD Primary Care Provider [phone] Saul DANG, Mike Joseph Unavailable Liz OLEARY, Dania Unavailable Unavailable Stacy OLEARY, Georgina Unavailable Brianna Pham MD Unavailable Sharmaine OLEARY, Sofya Unavailable Fidelina Dominguez Unavailable Liz OLEARY, Dania Unavailable Unavailable MIKE HUGHES Attending Unavailable MIKE HUGHES Referring Unavailable WONDERLY, [facility] Primary Care Unavailable BISHOP, SHERRY Referring Unavailable WONDERLY, [facility] Primary Care Unavailable WONDERLY, [facility] Primary Care Unavailable LJ LIZ Admitting Unavailable LJ LIZ Attending Unavailable BISHOP, SHERRY Referring Unavailable WONDERLY, [facility] Primary Care Unavailable BRIANNA PHAM Attending Unavailable BISHOP, SHERRY Referring Unavailable WONDERLY, [facility] Primary Care Unavailable WONDERLY, [facility] Primary Care Unavailable BISHOP, SHERRY Referring Unavailable MIKE HUGHES Attending Unavailable WONDERLY, [facility] Primary Care Unavailable GERDCINDI Rosales Attending Unavailable SMITH HDEZ Admitting Unavailabl e WONDERLY, [facility] Primary Care Unavailable WONDERLY, [facility] Referring Unavailable ABDI CONTEH Referring Unavailable MARY, ZAID S Admitting Unavailable MARY, ZAID S Attending Unavailable WONDERLY, [facility] Primary Care Unavailable MIKE HUGHES Attending Unavailable WONDERLY, [facility] Primary Care Unavailable WONDERLY, [facility] Primary Care Unavailable MIKE HUGHES Attending Unavailable WONDERLY, [facility] Primary Care Unavailable HUGHES, MIKE JOSEPH Attending Unavailable HUGHES, ORALIARILYLA JOSEPH Referring Unavailable Allergies Allergy Classification Reported Allergen(s) Allergy Type Date of Onset Reaction(s) Facility (20 sources) Acetaminophen / HYDROcodone; Translations: [HYDROCODONE-ACET AMINOPHEN] Drug Allergy 4 Other (See Comments), Mental Status Change [facility] (1 source) Acetaminophen / HYDROcodone; Translations: [Vicodin] Drug Allergy [facility] Repository Medications Current Medications Medication Drug Class(es) Dates Sig (Normalized) Sig (Original) calcium chloride 0.0014 meq/ml / potassium chloride 0.004 meq/ml / sodium chloride 0.103 meq/ml / sodium lactate 0.028 meq/ml injectable solution (1 source) Start: 12-22-2022 lactated ringers IV soln infusion loperamide hydrochloride 2 mg oral capsule (11 sources) Opioid Agonist Start: 07-18-2023 End: 08-17-2023 take 1 capsule by mouth every twelve hours as needed loperamide (IMODIUM) 2 mg cap(s) Take 1 capsule by mouth two times a day as needed for diarrhea. 60 capsule 0 07/18/2023 08/17/2023 Active Comment on above: Take 1 capsule by [facility] two times a day as needed for diarrhea. Multiple Vitamins-Minerals (THERAPEUTIC MULTIVITAMIN-MINERALS) tablet (1 source) take 1 tablet by mouth once daily Multiple Vitamins-Minerals (THERAPEUTIC MULTIVITAMIN-MINERALS) tablet Take 1 tablet by mouth daily 0 Active posaconazole 100 mg delayed release oral tablet (20 sources) Azole Antifungal Start : 06-01 End: 11-06 take 3 tablets by mouth once daily posaconazole DR (NOXAFIL) 100 mg tablet Take 3 tablets by mouth once daily. 90 tablet 2 08/09/2023 11/07/2023 Active Comment on above: Take 3 tablets by mo [facility] once daily. simethicone 80 mg chewable tablet (11 sources) Start: 07-18-2023 End: 08-17-2023 take 1 tablet by mouth every six hours as needed simethicone, chewable (MYLICON) 80 mg chewable tablet Take 1 tablet by mouth every 6 hours as needed. 60 tablet 0 07/18/2023 08/17/2023 Active Comment on above: Take 1 tablet by teto every 6 hours as needed. traMADol hydrochloride 50 mg oral tablet (1 source) Opioid Agonist Start: 12-22-2022 End: 12-26-2022 take 1 tablet by mouth every eight hours as needed for pain traMADol (ULTRAM) 50 MG tablet Indications: Acute postoperative pain Take 1 tablet by mouth every 8 hours as needed for Pain for up to 4 days. Intended supply: 3 days. Take lowest dose possible to manage pain Max Daily Amount: 150 mg 12 tablet 0 12/22/2022 12/26/2022 Active Completed/Discontinued Medications Medication Drug Class(es) Dates Sig (Normalized) Sig (Original) acetaminophen 325 mg oral tablet (1 source) Start: 12-22-2022 End: 12-22-2022 acetaminophen (TYLENOL) tablet 650 mg acetaminophen 300 mg / codeine phosphate 30 mg oral tablet (3 sources) Opioid Agonist take 1 tablet by mouth every four hours as needed acetaminophen-codei ne (TYLENOL-COD #3) 300-30 mg per tablet Take 1 tablet by mouth every 4 hours as needed. 0 Suspended Comment on above: Take 1 tablet by teto every 4 hours as needed. acyclovir 400 mg oral tablet (20 sources) Herpesvirus Nucleoside Analog DNA Polymerase Inhibitor, Herpes Simplex Virus Nucleoside Analog DNA Polymerase Inhibitor, Herpes Zoster Virus Nucleoside Analog DNA Polymerase Inhibitor Start: 06-07-2023 End: 06-25-2023 take 1 tablet by mouth twice daily acyclovir (ZOVIRAX) 400 mg tablet Take 1 tablet by mouth two times a day. 60 tablet 0 06/25/2023 Active Start: 05-08-2023 take 1 tablet by teto th twice daily acyclovir (ZOVIRAX) 400 mg tablet Take 400 mg by mouth twice daily. 0 05/08/2023 Suspended Comment on above: Take 400 mg by mouth twice daily. Take 1 tablet by teto th two times a day. buPROPion hydrochloride 75 mg oral tablet (20 sources) Aminoketone take 1 tablet by mouth once daily buPROPion (WELLBUTRIN) 75 mg tablet Take 75 mg by mouth once daily. 0 Active Comment on above: Take 75 mg by mouth once daily. ceFAZolin (ANCEF) 3000 mg in sodium chloride 0.9% 100 mL IVPB (1 source) Start: 12-22-2022 End: 12-22-2022 ceFAZolin (ANCEF) 3000 mg in sodium chloride 0.9% 100 mL IVPB ciprofloxacin 500 mg oral tablet (3 sources) Quinolone Antimicrobial Start: 05-08-2023 take 1 tablet by mouth twice daily ciprofloxacin HCl (CIPRO) 500 mg tablet Take 500 mg by mouth twice daily. 0 05/08/2023 Suspended Comment on above: Take 500 mg by mouth twice daily. dimenhyDRINATE 50 mg oral tablet (1 source) Start: 12-22-2022 End: 12-22-2022 dimenhyDRINATE (DRAMAMINE) tablet 50 mg ibuprofen 200 mg oral capsule (3 sources) Nonsteroidal Anti-inflammatory Drug Ibuprofen 200 mg cap Take 200 mg by mouth as needed. 0 Suspended Comment on above: Take 200 mg by mouth as needed. Lactobac no.41/Bifidobact no.7 (PROBIOTIC-10 ORAL) (3 sources) Start: 09-22-2020 Lactobac no.41/Bifidobact no.7 (PROBIOTIC-10 ORAL) levoFLOXacin 500 mg oral tablet (20 sources) Quinolone Antimicrobial Start: 07-18-2023 take 1 tablet by mouth once daily levoFLOXacin (LEVAQUIN) 500 mg tablet Take 1 tablet by mouth once daily. Do not take while taking the 750mg tablets, resume this dose on 07/29/23 30 tablet 1 07/18/2023 Active Start: 06-07-2023 End: 06-25-2023 take 1 tablet by mouth once daily levoFLOXacin (LEVAQUIN) 500 mg tablet Take 1 tablet by mouth once daily. 30 tablet 1 06/25/2023 Active Comment on above: Take 1 tablet by teto th once daily. Take 1 tablet by teto th once daily. Do not take while taking the 750mg tablets, resume this dose on 07/29/23 Multivitamin capsule (3 sources) take 1 capsule by mo ut once daily Multivitamin capsule Take 1 capsule by mouth once daily. 0 Suspended Comment on above: Take 1 capsule by mo uth once daily. OLANZapine 2.5 mg oral tablet (19 sources) Atypical Antipsychotic Start: 06-07-2023 take 1 tablet by mouth once daily at bedtime OLANZapine (ZYPREXA) 2.5 mg tablet Take 1 tablet by mouth daily at bedtime. 30 tablet 0 06/07/2023 Active Comment on above: Take 1 tablet by teto th daily at bedtime. omeprazole 20 mg delayed release oral capsule (20 sources) Proton Pump Inhibitor Start: 09-22-2022 take 1 capsule by mouth once daily omeprazole (PRILOSEC) 20 mg capsule Take 20 mg by mouth once daily. 0 09/22/2022 Active Comment on above: Take 20 mg by mouth once daily. ondansetron 4 mg disintegrating oral tablet (20 sources) Serotonin-3 Receptor Antagonist take 1 tablet by mouth every eight hours as needed ondansetron orally disintegrating (ZOFRAN ODT) 4 mg disintegrating tablet Take 4 mg by mouth every 8 hours as needed for nausea/vomiting. 0 Active Comment on above: Take 4 mg by mouth e very 8 hours as needed for nausea/vomiting. 125 ml sodium chloride 9 mg/ml prefilled syringe (19 sources) Start: 07-18-2023 inject 10 mL intravenously once daily, then inject 10 mL intravenously once daily sodium chloride 0.9 %, flush, (BD POSIFLUSH) syringe Inject 10 mL intravenously once daily. Flush each lumen with 10mL NS once daily. 600 mL 2 07/18/2023 Active Start: 06-07-2023 inject 10 mL intrave nously once daily, then inject 10 mL intravenously once daily sodium chloride 0.9 %, flush, (BD POSIFLUSH) syringe Inject 10 mL intravenously once daily. Flush each lumen with 10mL NS once daily. 600 mL 2 06/07/2023 Active Comment on above: Inject 10 mL intrave nously once daily. Flush each lumen with 10mL NS once daily. Problems Active Problems Problem Classification Problem Date Documented Da te Episodic/Chronic Cancer of breast (20 sources) History of malignant neoplasm of breast; Translations: [Personal history of malignant neoplasm of breast] Onset: 10-17-2017 10-17-2017 Episodic Complications of surgical procedures or medical care (20 sources) Infection associated with totally implantable venous access device; Translations: [Unspecified infection due to central venous catheter, initial encounter] Onset: 05-28-2023 05-28-2023 Episodic Deficiency and other anemia (20 sources) Pancytopenia; Translations: [Other pancytopenia] Onset: 05-29-2023 05-31-2023 Chronic Fever of unknown origin (1 source) Fever, unspecified; Translations: [Fever, unspecified fever cause] Onset: 05-28-2023 Episodic Immunity disorders (20 sources) Patient immunocompromised; Translations: [Immunodeficiency, unspecified] Onset: 05-29-2023 05-31-2023 Chronic Immunizations and screening for infectious disease (1 source) Encounter for immunization; Translations: [ENCOUNTER FOR IMMUNIZATION] Onset: 08-16-2021 Episodic Leukemias (20 sources) Acute myeloid leukemia, disease; 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, not having achieved remission] Onset: 05-28-2023 05-28-2023 Chronic Mood disorders (20 sources) Depressive disorder; Translations: [Depression] Onset: 02-26-2023 05-28-2023 Chronic Nausea and vomiting (19 sources) Chemotherapy-induced nausea and vomiting; Translations: [Nausea with vomiting, unspecified] Onset: 06-02-2023 06-07-2023 Episodic Noninfectious gastroenteritis (13 sources) Colitis; Translations: [Noninfective gastroenteritis and colitis, unspecified] Onset: 07-13-2023 07-30-2023 Episodic Other aftercare (20 sources) Post-discharge follow-up; Translations: [Encounter for follow-up examination after completed treatment for conditions other than malignant neoplasm] Onset: 05-29-2023 05-31-2023 Episodic Other and unspecified benign neoplasm (1 source) Lipoma of forearm; Translations: [Benign lipomatous neoplasm of skin and subcutaneous tissue of left arm] Episodic Other and unspecified benign neoplasm (1 source) Benign lipomatous neoplasm of skin and subcutaneous tissue of left arm; Translations: [Benign lipomatous neoplasm of skin and subcutaneous tissue of left arm] Onset: 12-22-2022 Episodic Other gastrointestinal disorders (1 source) Diarrhea; Translations: [Diarrhea, unspecified] Onset: 05-31-2023 05-31-2023 Episodic Other nervous system disorders (1 source) Acute postoperative pain; Translations: [Other acute postprocedural pain] Episodic Other nervous system disorders (1 source) Other acute postprocedural pain; Translations: [Other acute postprocedural pain] Onset: 12-22-2022 Episodic Other nutritional; endocrine; and metabolic disorders (20 sources) Body mass index 40+ - severely obese; Translations: [Morbid (severe) obesity due to excess calories] Onset: 05-30-2023 05-31-2023 Chronic Residual codes; unclassified (11 sources) At risk of disease; Translations: [Other specified personal risk factors, not elsewhere classified] Onset: 07-14-2023 07-18-2023 Episodic Skin and subcutaneous tissue infections (1 source) Cellulitis of chest wall; Translations: [Cellulitis of chest wall] Onset: 05-28-2023 Episodic Viral infection (4 sources) COVID-19; Translations: [COVID-19] Onset: 08-11-2021 Past or Other Problems Problem Classification Problem Date Documented Da te Episodic/Chronic Other bone disease and musculoskeletal deformities (20 sources) Osteopenia; Translations: [Other specified disorders of bone density and structure, unspecified site] Onset: 06-15-2016 06-15-2016 Episodic Other lower respiratory disease (20 sources) Nodule of lung; Translations: [Solitary pulmonary nodule] Onset: 09-29-2013 09-29-2013 Episodic Results Test Name Value Interpretation Reference Range Facil ity CNPNon 08-15-2023 CNPN Normal [facility] CNSWon 08-15-2023 CNSW Normal [facility] CNPNon 08-13-2023 CNPN Normal [facility] CNPNon 08-09-2023 CNPN Normal [facility] CNPNon 08-08-2023 CNPN Normal [facility] CNPNon 08-07-2023 CNPN Normal [facility] CNCOon 08-06-2023 CNCO [facility] CASE MANAGEMon 07-18-2023 CASE MANAGEM [facility] [place] CBC W Auto Differential pane l (Bld)on 07-18-2023 Basophils (Bld) [#/Vol] Normal [facility] Comment on above: Order Comment: Speci men Type: BLOOD SPECIMENOrdering Facility: [facility] Address: [address] [place] [address] Result Comment: Too Few Cells To Do Differential. Performed By: #### 5 7021-8 ####[facility] LABCLIA [id number] [place] [address] [place] Basophils/100 WBC (Bld) Normal [facility] Comment on above: Order Comment: Speci men Type: BLOOD SPECIMENOrdering Facility: [facility] Address: [address] [place] [address] Result Comment: Too Few Cells To Do Differential. Performed By: #### 5 7021-8 ####[facility] LABCLIA [id number] [place] [address] [place] Differential cell count method Nom (Bld) Auto Normal [facility] Comment on above: Order Comment: Speci men Type: BLOOD SPECIMENOrdering Facility: [facility] Address: [address] [place] [address] Performed By: #### 5 7021-8 ####[facility] LABCLIA [id number] [place] [address] [place] Eosinophils (Bld) [#/Vol] Normal [facility] Comment on above: Order Comment: Speci men Type: BLOOD SPECIMENOrdering Facility: [facility] Address: [address] [place] [address] Result Comment: Too Few Cells To Do Differential. Performed By: #### 5 7021-8 ####[facility] LABCLIA [id number] [place] [address] [place] Eosinophils/100 WBC (Bld) Normal [facility] Comment on above: Order Comment: Speci men Type: BLOOD SPECIMENOrdering Facility: [facility] Address: [address] [place] [address] Result Comment: Too Few Cells To Do Differential. Performed By: #### 5 7021-8 ####[facility] LABIA [id number] [place] [address] [place] Erythrocyte distribution wid th (RBC) [Ratio] 15.8 % High 11.5-15.0 [facility] Comment on above: Order Comment: Speci men Type: BLOOD SPECIMENOrdering Facility: [facility] Address: [address] [place] [address] Performed By: #### 5 7021-8 ####[facility] LABIA [id number] [place] [address] [place] Hematocrit (Bld) [Volume fraction] 22.8 % Low 3 6.0-46.0 [facility] Comment on above: Order Comment: Speci men Type: BLOOD SPECIMENOrdering Facility: [facility] Address: [address] [place] [address] Performed By: #### 5 7021-8 ####[facility] LABIA [id number] [place] [address] [place] Hemoglobin (Bld) [Mass/Vol] 7.8 g/dL Low 11.5-15. 5 [facility] Comment on above: Order Comment: Speci men Type: BLOOD SPECIMENOrdering Facility: [facility] Address: [address] [place] [address] Performed By: #### 5 7021-8 ####[facility] LABIA [id number] [place] [address] [place] Immature granulocytes (Bld) [#/Vol] Normal [facility] Comment on above: Order Comment: Speci men Type: BLOOD SPECIMENOrdering Facility: [facility] Address: [address] [place] [address] Result Comment: Too Few Cells To Do Differential. Performed By: #### 5 7021-8 ####[facility] LABIA [id number] [place] [address] [place] Immature granulocytes/100 WBC (Bld) Normal [facility] Comment on above: Order Comment: Speci men Type: BLOOD SPECIMENOrdering Facility: [facility] Address: [address] [place] [address] Result Comment: Too Few Cells To Do Differential. Performed By: #### 5 7021-8 ####[facility] LABCLIA [id number] [place] [address] [place] Lymphocytes (Bld) [#/Vol] Normal [facility] Comment on above: Order Comment: Speci men Type: BLOOD SPECIMENOrdering Facility: [facility] Address: [address] [place] [address] Result Comment: Too Few Cells To Do Differential. Performed By: #### 5 7021-8 ####[facility] LABCLIA [id number] [place] [address] [place] Lymphocytes/100 WBC (Bld) Normal [facility] Comment on above: Order Comment: Speci men Type: BLOOD SPECIMENOrdering Facility: [facility] Address: [address] [place] [address] Result Comment: Too Few Cells To Do Differential. Performed By: #### 5 7021-8 ####[facility] LABCLIA [id number] [place] [address] [place] MCH (RBC) [Entitic mass] 30.1 pg Normal 26.0-34.0 [facility] Comment on above: Order Comment: Speci men Type: BLOOD SPECIMENOrdering Facility: [facility] Address: [address] [place] [address] Performed By: #### 5 7021-8 ####[facility] LABCLIA [id number] [place] [address] [place] MCHC (RBC) [Mass/Vol] 34.2 g/dL Normal 30.5-36.0 [facility] Comment on above: Order Comment: Speci men Type: BLOOD SPECIMENOrdering Facility: [facility] Address: [address] [place] [address] Performed By: #### 5 7021-8 ####[facility] LABCLIA [id number] [place] [address] [place] MCV (RBC) [Entitic vol] 88.0 fL Normal 80.0-100.0 [facility] Comment on above: Order Comment: Speci men Type: BLOOD SPECIMENOrdering Facility: [facility] Address: [address] [place] [address] Performed By: #### 5 7021-8 ####[facility] LABCLIA [id number] [place] [address] [place] Monocytes (Bld) [#/Vol] Normal C [facility] Comment on above: Order Comment: Speci men Type: BLOOD SPECIMENOrdering Facility: [facility] Address: [address] [place] [address] Result Comment: Too Few Cells To Do Differential. Performed By: #### 5 7021-8 ####[facility] LABCLIA [id number] [place] [address] [place] Monocytes/100 WBC (Bld) [facility] Comment on above: Order Comment: Speci men Type: BLOOD SPECIMENOrdering Facility: [facility] Address: [address] [place] [address] Result Comment: Too Few Cells To Do Differential. Performed By: #### 5 7021-8 ####[facility] LABCLIA [id number] [place] [address] [place] Neutrophils (Bld) [#/Vol] Normal [facility] Comment on above: Order Comment: Speci men Type: BLOOD SPECIMENOrdering Facility: [facility] Address: [address] [place] [address] Result Comment: Too Few Cells To Do Differential. Performed By: #### 5 7021-8 ####[facility] LABCLIA [id number] [place] [address] [place] Neutrophils/100 WBC (Bld) Normal [facility] Comment on above: Order Comment: Speci men Type: BLOOD SPECIMENOrdering Facility: [facility] Address: [address] [place] [address] Result Comment: Too Few Cells To Do Differential. Performed By: #### 5 7021-8 ####[facility] LABCLIA [id number] [place] [address] [place] Nucleated RBC (Bld) [#/Vol] 10*3/uL Normal <0.01 [facility] Comment on above: Order Comment: Speci men Type: BLOOD SPECIMENOrdering Facility: [facility] Address: [address] [place] [address] Performed By: #### 5 7021-8 ####[facility] LABCLIA [id number] [place] [address] [place] Nucleated RBC/100 WBC (Bld) [Ratio] 0.0 /100 WBC Normal [facility] Comment on above: Order Comment: Speci men Type: BLOOD SPECIMENOrdering Facility: [facility] Address: [address] [place] [address] Performed By: #### 5 7021-8 ####[facility] LABCLIA [id number] [place] [address] [place] Platelet mean volume (Bld) [Entitic vol] Normal [facility] Comment on above: Order Comment: Speci men Type: BLOOD SPECIMENOrdering Facility: [facility] Address: [address] [place] [address] Result Comment: Unab le to Report. Performed By: #### 5 7021-8 ####[facility] LABCLIA [id number] [place] [address] [place] Platelets (Bld) [#/Vol] 18 10*3/uL Low 150-400 C [facility] Comment on above: Order Comment: Speci men Type: BLOOD SPECIMENOrdering Facility: [facility] Address: [address] [place] [address] Result Comment: Resu lts checked and verified.No clot detected. Performed By: #### 5 7021-8 ####[facility] LABCLIA [id number] [place] [address] [place] RBC (Bld) [#/Vol] 2.59 10*6/uL Low 3.90-5.20 [facility] Comment on above: Order Comment: Speci men Type: BLOOD SPECIMENOrdering Facility: [facility] Address: [address] [place] [address] Performed By: #### 5 7021-8 ####[facility] LABCLIA [id number] [place] [address] [place] WBC (Bld) [#/Vol] 0.47 10*3/uL Low 3.70-11.00 [facility] Comment on above: Order Comment: Speci men Type: BLOOD SPECIMENOrdering Facility: [facility] Address: [address] [place] [address] Result Comment: No c lot detected. Too Few Cells To Do Differential Performed By: #### 5 7021-8 ####[facility] LABCLIA [id number] [place] [address] [place] CNCOon 07-18-2023 CNCO Letter Text Normal [facility] CNDSon 07-18-2023 CNDS Normal [place] [facility] [place] CONSULT PROGon 07-18-2023 CONSULT PROG Normal [place] [facility] [place] Comprehensive metabolic 2000 panelon 07-18-2023 Albumin [Mass/Vol] 2.3 g/dL Low 3.9-4.[address] [facility] Comment on above: Order Comment: Speci men Type: BLOOD SPECIMENOrdering Facility: [facility] Address: [address] [place] [address] Performed By: #### 2 4323-8, 63739-6 ####[facility] LABCLIA [id number] [place] [address] [place] ALP [Catalytic activity/Vol] 50 U/L Normal 34-123 [facility] Comment on above: Order Comment: Speci men Type: BLOOD SPECIMENOrdering Facility: [facility] Address: [address] [place] [address] Performed By: #### 2 4323-8, ####[facility] LABCLIA [id number] [place] [address] [place] ALT [Catalytic activity/Vol] 14 U/L Normal 7-38 [facility] Comment on above: Order Comment: Speci men Type: BLOOD SPECIMENOrdering Facility: [facility] Address: [address] [place] [address] Performed By: #### 2 4323-8, ####[facility] LABCLIA [id number] [place] [address] [place] Anion gap [Moles/Vol] 8 mmol/L Low 9-18 [facility] Comment on above: Order Comment: Speci men Type: BLOOD SPECIMENOrdering Facility: [facility] Address: [address] [place] [address] Performed By: #### 2 4323-8, ####[facility] LABCLIA [id number] [place] [address] [place] AST [Catalytic activity/Vol] 14 U/L Normal 13-35 [facility] Comment on above: Order Comment: Speci men Type: BLOOD SPECIMENOrdering Facility: [facility] Address: [address] [place] [address] Performed By: #### 2 4323-8, ####[facility] LABCLIA [id number] [place] [id number] [place] Bilirubin [Mass/Vol] 0.3 mg/dL Normal 0.2-1.3 [facility] Comment on above: Order Comment: Speci men Type: BLOOD SPECIMENOrdering Facility: [facility] Address: [address] [place] [address] Performed By: #### 2 432-8, ####[facility] LABCLIA [id number] [address] [address] [place] Calcium [Mass/Vol] 7.2 mg/dL Low 8.5-10.[address] [facility] Comment on above: Order Comment: Speci men Type: BLOOD SPECIMENOrdering Facility: [facility] Address: [address] [place] [address] Performed By: #### 2 432-8, ####[facility] LABCLIA [id number] [place] [address] [place] Chloride [Moles/Vol] 110 mmol/L High 97-105 [facility] Comment on above: Order Comment: Speci men Type: BLOOD SPECIMENOrdering Facility: [facility] Address: [address] [place] [address] Performed By: #### 2 432-8, ####[facility] LABCLIA [id number] [place] [address] [place] CO2 [Moles/Vol] 23 mmol/L Normal 22-30 [facility] Comment on above: Order Comment: Speci men Type: BLOOD SPECIMENOrdering Facility: [facility] Address: [address] [place] [address] Performed By: #### 2 4323-8, ####[facility] LABCLIA [id number] [place] [address] [place] Creatinine [Mass/Vol] 0.66 mg/dL Normal 0.58-0.96 [facility] Comment on above: Order Comment: Speci men Type: BLOOD SPECIMENOrdering Facility: [facility] Address: [address] [place] [id number] Performed By: #### 2 4323-8, ####[facility] LABCLIA [id number] [place] [address] [place] Creatinine and Glomerular filtration rate.predicted panel (S/P/Bld) 95 mL/min/1.73m??? Normal >=60 [facility] Comment on above: Order Comment: Elvia escobar Type: BLOOD SPECIMENOrdering Facility: [facility] Address: [address] [place] [address] Result Comment: Berenice mated Glomerular Filtration Rate (eGFR) is calculated using the 2020 CKD-EPI creatinine equation. This equation utilizes serum creatinine, sex, and age as parameters. The creatinine assay has traceable calibration to isotope dilution-mass spectrometry. Refer to KDIGO guidelines for clinical interpretation. In patients with unstable renal function, e.g. those with acute kidney injury, the eGFR may not accurately reflect actual GFR. Performed By: #### 2 4323-8, ####[facility] LABIA [id number] [place] [address] [place] Glucose [Mass/Vol] 85 mg/dL Normal 74-[address] [facility] Comment on above: Order Comment: Elvia escobar Type: BLOOD SPECIMENOrdering Facility: [facility] Address: [address] [place] [address] Result Comment: The [place] Diabetes [employer] (ADA) provides guidance for cutoff values for fasting glucose and random glucose. The ADA defines fasting as no caloric intake for at least 8 hours. Fasting plasma glucose results between 100 to 125 mg/dL indicate increased risk for diabetes (prediabetes).Fasting plasma glucose results greater than or equal to 126 mg/dL meet the criteria for diagnosis of diabetes. In the absence of unequivocal hyperglycemia, results should be confirmed by repeat testing. In a patient with classic symptoms of hyperglycemia or hyperglycemic crisis, random plasma glucose results greater than or equal to 200 mg/dL meet the criteria for diagnosis of diabetes.Reference: Standards of Medical Care in Diabetes 2016, [place] [employer]. Diabetes Care. 2016.39(Suppl 1). Performed By: #### 2 4323-8, ####[facility] LABCLIA [id number] [place] [address] [place] Potassium [Moles/Vol] 2.9 mmol/L Low 3.7-5.1 [facility] Comment on above: Order Comment: Speci men Type: BLOOD SPECIMENOrdering Facility: [facility] Address: [address] [place] [address] Performed By: #### 2 4323-8, ####[facility] LABCLIA [id number] [place] [address] [place] Protein [Mass/Vol] 4.1 g/dL Low 6.3-8.[address] [facility] Comment on above: Order Comment: Speci men Type: BLOOD SPECIMENOrdering Facility: [facility] Address: [address] [place] [address] Performed By: #### 2 4323-8, ####[facility] LABCLIA [id number] [place] [address] [place] Sodium [Moles/Vol] 141 mmol/L Normal 136-[address] [facility] Comment on above: Order Comment: Speci men Type: BLOOD SPECIMENOrdering Facility: [facility] Address: [address] [place] [address] Performed By: #### 2 432-8, ####[facility] LABCLIA [id number] [place] [address] [place] Urea nitrogen [Mass/Vol] 5 mg/dL Low 7-21 [facility] Comment on above: Order Comment: Speci men Type: BLOOD SPECIMENOrdering Facility: [facility] Address: [address] [place] [address] Performed By: #### 2 432-8, ####[facility] LABCLIA [id number] [place] [id number] [place] Magnesium [facility] Magnesium [Mass/Vol] 1.9 mg/dL Normal 1.7-2.3 [facility] Comment on above: Order Comment: Speci men Type: BLOOD SPECIMENOrdering Facility: [facility] Address: [address] [place] [address] Performed By: #### 2 4323-8, 49989-9 ####[facility] LABCLIA [id number] [place] [address] [place] POTASSIUM BLDon 07-18-2023 Potassium [Moles/Vol] 4.0 mmol/L Normal 3.7-5.1 [facility] Comment on above: Order Comment: Speci men Type: BLOOD SPECIMENOrdering Facility: [facility] Address: [address] [place] [address] Performed By: #### K 1 ####[facility] LABCLIA [id number] [place] [address] [place] CASE MGT INIT ASSESon 2022 CASE MGT INIT ASSES Normal [facility] CASE MGT INIT ASSES Normal [facility] CBC W Auto Differential pane l (Bld)on 07-17-2023 Basophils (Bld) [#/Vol] Normal C [facility] Comment on above: Order Comment: Speci men Type: BLOOD SPECIMENOrdering Facility: [facility] Address: [address] [place] [address] Result Comment: Too Few Cells To Do Differential. Performed By: #### 5 7021-8 ####[facility] LABCLIA [id number] [place] [address] [place] Basophils/100 WBC (Bld) Normal C [facility] Comment on above: Order Comment: Speci men Type: BLOOD SPECIMENOrdering Facility: [facility] Address: [address] [place] [address] Result Comment: Too Few Cells To Do Differential. Performed By: #### 5 7021-8 ####[facility] LABCLIA [id number] [place] [address] [place] Differential cell count method Nom (Bld) Auto Normal [facility] Comment on above: Order Comment: Speci men Type: BLOOD SPECIMENOrdering Facility: [facility] Address: [address] [place] [address] Performed By: #### 5 7021-8 ####[facility] LABCLIA [id number] [place] [address] [place] Eosinophils (Bld) [#/Vol] Normal [facility] Comment on above: Order Comment: Speci men Type: BLOOD SPECIMENOrdering Facility: [facility] Address: [address] [place] [address] Result Comment: Too Few Cells To Do Differential. Performed By: #### 5 7021-8 ####[facility] LABCLIA [id number] [place] [address] [place] Eosinophils/100 WBC (Bld) Normal [facility] Comment on above: Order Comment: Speci men Type: BLOOD SPECIMENOrdering Facility: [facility] Address: [address] [place] [address] Result Comment: Too Few Cells To Do Differential. Performed By: #### 5 7021-8 ####[facility] LABCLIA [id number] [place] [address] [place] Erythrocyte distribution wid th (RBC) [Ratio] 15.9 % High 11.5-15.0 [facility] Comment on above: Order Comment: Speci men Type: BLOOD SPECIMENOrdering Facility: [facility] Address: [address] [place] [address] Performed By: #### 5 7021-8 ####[facility] LABCLIA [id number] [place] [address] [place] Hematocrit (Bld) [Volume fraction] 23.0 % Low 3 6.0-46.0 [facility] Comment on above: Order Comment: Speci men Type: BLOOD SPECIMENOrdering Facility: [facility] Address: [address] [place] [address] Performed By: #### 5 7021-8 ####[facility] LABCLIA [id number] [place] [address] [place] Hemoglobin (Bld) [Mass/Vol] 7.9 g/dL Low 11.5-15. 5 [facility] Comment on above: Order Comment: Speci men Type: BLOOD SPECIMENOrdering Facility: [facility] Address: [address] [place] [address] Performed By: #### 5 7021-8 ####[facility] LABCLIA [id number] [place] [address] [place] Immature granulocytes (Bld) [#/Vol] Normal [facility] Comment on above: Order Comment: Speci men Type: BLOOD SPECIMENOrdering Facility: [facility] Address: [address] [place] [address] Result Comment: Too Few Cells To Do Differential. Performed By: #### 5 7021-8 ####[facility] LABCLIA [id number] [place] [address] [place] Immature granulocytes/100 WBC (Bld) Normal [facility] Comment on above: Order Comment: Speci men Type: BLOOD SPECIMENOrdering Facility: [facility] Address: [address] [place] [address] Result Comment: Too Few Cells To Do Differential. Performed By: #### 5 7021-8 ####[facility] LABCLIA [id number] [place] [address] [place] Lymphocytes (Bld) [#/Vol] Normal [facility] Comment on above: Order Comment: Speci men Type: BLOOD SPECIMENOrdering Facility: [facility] Address: [address] [place] [address] Result Comment: Too Few Cells To Do Differential. Performed By: #### 5 7021-8 ####[facility] LABCLIA [id number] [place] [address] [place] Lymphocytes/100 WBC (Bld) Normal [facility] Comment on above: Order Comment: Speci men Type: BLOOD SPECIMENOrdering Facility: [facility] Address: [address] [place] [address] Result Comment: Too Few Cells To Do Differential. Performed By: #### 5 7021-8 ####[facility] LABIA [id number] [place] [address] [place] MCH (RBC) [Entitic mass] 29.9 pg Normal 26.0-34.0 [facility] Comment on above: Order Comment: Speci men Type: BLOOD SPECIMENOrdering Facility: [facility] Address: [address] [place] [address] Performed By: #### 5 7021-8 ####[facility] LABIA [id number] [place] [address] [place] MCHC (RBC) [Mass/Vol] 34.3 g/dL Normal 30.5-36.0 [facility] Comment on above: Order Comment: Speci men Type: BLOOD SPECIMENOrdering Facility: [facility] Address: [address] [place] [address] Performed By: #### 5 7021-8 ####[facility] LABIA [id number] [place] [address] [place] MCV (RBC) [Entitic vol] 87.1 fL Normal 80.0-100.0 C [facility] Comment on above: Order Comment: Speci men Type: BLOOD SPECIMENOrdering Facility: [facility] Address: [address] [place] [address] Performed By: #### 5 7021-8 ####[facility] LABCLIA [id number] [place] [address] [place] Monocytes (Bld) [#/Vol] Normal C [facility] Comment on above: Order Comment: Speci men Type: BLOOD SPECIMENOrdering Facility: [facility] Address: [address] [place] [address] Result Comment: Too Few Cells To Do Differential. Performed By: #### 5 7021-8 ####[facility] LABCLIA [id number] [place] [address] [place] Monocytes/100 WBC (Bld) Normal [facility] Comment on above: Order Comment: Speci men Type: BLOOD SPECIMENOrdering Facility: [facility] Address: [address] [place] [address] Result Comment: Too Few Cells To Do Differential. Performed By: #### 5 7021-8 ####[facility] LABCLIA [id number] [place] [address] [place] Neutrophils (Bld) [#/Vol] Normal [facility] Comment on above: Order Comment: Speci men Type: BLOOD SPECIMENOrdering Facility: [facility] Address: [address] [place] [address] Result Comment: Too Few Cells To Do Differential. Performed By: #### 5 7021-8 ####[facility] LABCLIA [id number] [place] [address] [place] Neutrophils/100 WBC (Bld) Normal [facility] Comment on above: Order Comment: Speci men Type: BLOOD SPECIMENOrdering Facility: [facility] Address: [address] [place] [address] Result Comment: Too Few Cells To Do Differential. Performed By: #### 5 7021-8 ####[facility] LABCLIA [id number] [place] [address] [place] Nucleated RBC (Bld) [#/Vol] 10*3/uL Normal <0.01 [facility] Comment on above: Order Comment: Speci men Type: BLOOD SPECIMENOrdering Facility: [facility] Address: [address] [place] [address] Performed By: #### 5 7021-8 ####[facility] LABCLIA [id number] [place] [address] [place] Nucleated RBC/100 WBC (Bld) [Ratio] 0.0 /100 WBC Normal [facility] Comment on above: Order Comment: Speci men Type: BLOOD SPECIMENOrdering Facility: [facility] Address: [address] [place] [address] Performed By: #### 5 7021-8 ####[facility] [id number] [place] [address] [place] Platelet mean volume (Bld) [Entitic vol] Normal [facility] Comment on above: Order Comment: Speci men Type: BLOOD SPECIMENOrdering Facility: [facility] Address: [address] [place] [address] Result Comment: Unab le to Report. Performed By: #### 5 7021-8 ####[facility] [id number] [place] [address] [place] Platelets (Bld) [#/Vol] 8 10*3/uL Critically low 150-400 [facility] Comment on above: Order Comment: Speci men Type: BLOOD SPECIMENOrdering Facility: [facility] Address: [address] [place] [address] Result Comment: Resu lts checked and verified.No clot detected. Performed By: #### 5 7021-8 ####[facility] [id number] [place] [address] [place] RBC (Bld) [#/Vol] 2.64 10*6/uL Low 3.90-5.20 [facility] Comment on above: Order Comment: Speci men Type: BLOOD SPECIMENOrdering Facility: [facility] Address: [address] [place] [address] Performed By: #### 5 7021-8 ####[facility] [id number] [place] [address] [place] WBC (Bld) [#/Vol] 0.48 10*3/uL Low 3.70-11.00 [facility] Comment on above: Order Comment: Speci men Type: BLOOD SPECIMENOrdering Facility: [facility] Address: [address] [place] [address] Result Comment: Resu lts checked and verified.No clot detected. Too Few Cells To Do Differential Performed By: #### 5 7021-8 ####[facility] LABCLIA [id number] [place] [address] [place] Comprehensive metabolic 2000 panelon 07-17-2023 Albumin [Mass/Vol] 2.3 g/dL Low 3.9-4.[address] [facility] Comment on above: Order Comment: Speci men Type: BLOOD SPECIMENOrdering Facility: [facility] Address: [address] [place] [address] Performed By: #### 2 4323-8, 31659-4 ####[facility] LABCLIA [id number] [place] [address] [place] ALP [Catalytic activity/Vol] 61 U/L Normal 34-123 [facility] Comment on above: Order Comment: Speci men Type: BLOOD SPECIMENOrdering Facility: [facility] Address: [address] [place] [address] Performed By: #### 2 4323-8, ####[facility] LABCLIA [id number] [place] [address] [place] ALT [Catalytic activity/Vol] 15 U/L Normal 7-38 [facility] Comment on above: Order Comment: Speci men Type: BLOOD SPECIMENOrdering Facility: [facility] Address: [address] [place] [address] Performed By: #### 2 4323-8, ####[facility] LABCLIA [id number] [place] [id number] [place] Anion gap [Moles/Vol] 11 mmol/L Normal 9-18 [facility] Comment on above: Order Comment: Speci men Type: BLOOD SPECIMENOrdering Facility: [facility] Address: [address] [place] [address] Performed By: #### 2 4323-8, ####[facility] LABCLIA [id number] [address] [address] [place] AST [Catalytic activity/Vol] 15 U/L Normal 13-35 [facility] Comment on above: Order Comment: Speci men Type: BLOOD SPECIMENOrdering Facility: [facility] Address: [address] [place] [address] Performed By: #### 2 8, ####[facility] LABCLIA [id number] [place] [address] [place] Bilirubin [Mass/Vol] 0.6 mg/dL Normal 0.2-1.3 [facility] Comment on above: Order Comment: Speci men Type: BLOOD SPECIMENOrdering Facility: [facility] Address: [address] [place] [address] Performed By: #### 2 8, ####[facility] LABCLIA [id number] [place] [address] [place] Calcium [Mass/Vol] 8.1 mg/dL Low 8.5-10.[address] [facility] Comment on above: Order Comment: Speci men Type: BLOOD SPECIMENOrdering Facility: [facility] Address: [address] [place] [address] Performed By: #### 2 4323-8, ####[facility] LABCLIA [id number] [place] [id number] [place] Chloride [Moles/Vol] 106 mmol/L High 97-105 [facility] Comment on above: Order Comment: Speci men Type: BLOOD SPECIMENOrdering Facility: [facility] Address: [address] [place] [address] Performed By: #### 2 4323-8, ####[facility] LABCLIA [id number] [place] [id number] [place] CO2 [Moles/Vol] 21 mmol/L Low 22-30 [facility] Comment on above: Order Comment: Speci men Type: BLOOD SPECIMENOrdering Facility: [facility] Address: [address] [place] [address] Performed By: #### 2 43211-08, ####[facility] LABIA [id number] [place] [address] [place] Creatinine [Mass/Vol] 0.78 mg/dL Normal 0.58-0.96 [facility] Comment on above: Order Comment: Speci men Type: BLOOD SPECIMENOrdering Facility: [facility] Address: [address] [place] [address] Performed By: #### 2 43211-08, ####[facility] LABIA [id number] [place] [address] [place] Creatinine and Glomerular filtration rate.predicted panel (S/P/Bld) 82 mL/min/1.73m??? Normal >=60 [facility] Comment on above: Order Comment: Speci men Type: BLOOD SPECIMENOrdering Facility: [facility] Address: [address] [place] [address] Result Comment: Berenice mated Glomerular Filtration Rate (eGFR) is calculated using the 2020 CKD-EPI creatinine equation. This equation utilizes serum creatinine, sex, and age as parameters. The creatinine assay has traceable calibration to isotope dilution-mass spectrometry. Refer to KDIGO guidelines for clinical interpretation. In patients with unstable renal function, e.g. those with acute kidney injury, the eGFR may not accurately reflect actual GFR. Performed By: #### 2 4323-8, ####[facility] LABIA [id number] [place] [id number] [place] Glucose [Mass/Vol] 104 mg/dL High 74-[address] [facility] Comment on above: Order Comment: Speci men Type: BLOOD SPECIMENOrdering Facility: [facility] Address: [address] [place] [address] Result Comment: The [place] [employer] (ADA) provides guidance for cutoff values for fasting glucose and random glucose. The ADA defines fasting as no caloric intake for at least 8 hours. Fasting plasma glucose results between 100 to 125 mg/dL indicate increased risk for diabetes (prediabetes).Fasting plasma glucose results greater than or equal to 126 mg/dL meet the criteria for diagnosis of diabetes. In the absence of unequivocal hyperglycemia, results should be confirmed by repeat testing. In a patient with classic symptoms of hyperglycemia or hyperglycemic crisis, random plasma glucose results greater than or equal to 200 mg/dL meet the criteria for diagnosis of diabetes.Reference: Standards of Medical Care in Diabetes 2016, [place] Diabetes Association. Diabetes Care. 2016.39(Suppl 1). Performed By: #### 2 43211-08, ####[facility] LABCLIA [id number] [place] [address] [place] Potassium [Moles/Vol] 3.5 mmol/L Low 3.7-5.1 [facility] Comment on above: Order Comment: Speci men Type: BLOOD SPECIMENOrdering Facility: [facility] Address: [address] [place] [address] Performed By: #### 2 43211-08, ####[facility] LABCLIA [id number] [place] [address] [place] Protein [Mass/Vol] 4.5 g/dL Low 6.3-8.[address] [facility] Comment on above: Order Comment: Speci men Type: BLOOD SPECIMENOrdering Facility: [facility] Address: [address] [place] [address] Performed By: #### 2 43211-08, ####[facility] LABCLIA [id number] [place] [address] [place] Sodium [Moles/Vol] 138 mmol/L Normal 136-[address] [facility] Comment on above: Order Comment: Speci men Type: BLOOD SPECIMENOrdering Facility: [facility] Address: [address] [place] [address] Performed By: #### 2 4323-8, ####[facility] LABCLIA [id number] [place] [address] [place] Urea nitrogen [Mass/Vol] 7 mg/dL Normal 7-21 [facility] Comment on above: Order Comment: Speci men Type: BLOOD SPECIMENOrdering Facility: [facility] Address: [address] [place] [address] Performed By: #### 2 4323-8, ####[facility] LABCLIA [id number] [place] [address] [place] Magnesium SerPl-mCncon 07-17 Magnesium [Mass/Vol] 2.0 mg/dL Normal 1.7-2.3 [facility] Comment on above: Order Comment: Speci men Type: BLOOD SPECIMENOrdering Facility: [facility] Address: [address] [place] [address] Performed By: #### 2 4323-8, ####[facility] LABCLIA [id number] [place] [address] [place] SOCIAL WORKon 07-17-2023 SOCIAL WORK Normal [place] [facility] [place] THERAPY NTon 07-17-2023 THERAPY NT Normal [facility] CBC W Auto Differential pane l (Bld)on 07-16-2023 Basophils (Bld) [#/Vol] Normal C [facility] Comment on above: Order Comment: Speci men Type: BLOOD SPECIMENOrdering Facility: [facility] Address: [address] [place] [address] Result Comment: Too Few Cells To Do Differential. Performed By: #### 5 7021-8 ####[facility] LABCLIA [id number] [place] [address] [place] Basophils/100 WBC (Bld) Normal C [facility] Comment on above: Order Comment: Speci men Type: BLOOD SPECIMENOrdering Facility: [facility] Address: [address] [place] [address] Result Comment: Too Few Cells To Do Differential. Performed By: #### 5 7021-8 ####[facility] LABCLIA [id number] [place] [address] [place] Differential cell count method Nom (Bld) Auto Normal [facility] Comment on above: Order Comment: Speci men Type: BLOOD SPECIMENOrdering Facility: [facility] Address: [address] [place] [address] Performed By: #### 5 7021-8 ####[facility] LABCLIA [id number] [place] [address] [place] Eosinophils (Bld) [#/Vol] Normal [facility] Comment on above: Order Comment: Speci men Type: BLOOD SPECIMENOrdering Facility: [facility] Address: [address] [place] [address] Result Comment: Too Few Cells To Do Differential. Performed By: #### 5 7021-8 ####[facility] LABCLIA [id number] [place] [address] [place] Eosinophils/100 WBC (Bld) Normal [facility] Comment on above: Order Comment: Speci men Type: BLOOD SPECIMENOrdering Facility: [facility] Address: [address] [place] [address] Result Comment: Too Few Cells To Do Differential. Performed By: #### 5 7021-8 ####[facility] LABCLIA [id number] [place] [address] [place] Erythrocyte distribution wid th (RBC) [Ratio] 14.8 % Normal 11.5-15.0 [facility] Comment on above: Order Comment: Speci men Type: BLOOD SPECIMENOrdering Facility: [facility] Address: [address] [place] [address] Performed By: #### 5 7021-8 ####[facility] LABCLIA [id number] [place] [address] [place] Hematocrit (Bld) [Volume fraction] 20.0 % Low 3 6.0-46.0 [facility] Comment on above: Order Comment: Speci men Type: BLOOD SPECIMENOrdering Facility: [facility] Address: [address] [place] [address] Performed By: #### 5 7021-8 ####[facility] LABCLIA [id number] [place] [address] [place] Hemoglobin (Bld) [Mass/Vol] 6.9 g/dL Low 11.5-15. 5 [facility] Comment on above: Order Comment: Speci men Type: BLOOD SPECIMENOrdering Facility: [facility] Address: [address] [place] [address] Performed By: #### 5 7021-8 ####[facility] LABIA [id number] [place] [address] [place] Immature granulocytes (Bld) [#/Vol] Normal [facility] Comment on above: Order Comment: Speci men Type: BLOOD SPECIMENOrdering Facility: [facility] Address: [address] [place] [address] Result Comment: Too Few Cells To Do Differential. Performed By: #### 5 7021-8 ####[facility] LABCLIA [id number] [place] [address] [place] Immature granulocytes/100 WBC (Bld) Normal [facility] Comment on above: Order Comment: Speci men Type: BLOOD SPECIMENOrdering Facility: [facility] Address: [address] [place] [address] Result Comment: Too Few Cells To Do Differential. Performed By: #### 5 7021-8 ####[facility] LABCLIA [id number] [place] [address] [place] Lymphocytes (Bld) [#/Vol] Normal [facility] Comment on above: Order Comment: Speci men Type: BLOOD SPECIMENOrdering Facility: [facility] Address: [address] [place] [address] Result Comment: Too Few Cells To Do Differential. Performed By: #### 5 7021-8 ####[facility] LABCLIA [id number] [place] [address] [place] Lymphocytes/100 WBC (Bld) Normal [facility] Comment on above: Order Comment: Speci men Type: BLOOD SPECIMENOrdering Facility: [facility] Address: [address] [place] [address] Result Comment: Too Few Cells To Do Differential. Performed By: #### 5 7021-8 ####[facility] LABCLIA [id number] [place] [address] [place] MCH (RBC) [Entitic mass] 30.4 pg Normal 26.0-34.0 [facility] Comment on above: Order Comment: Speci men Type: BLOOD SPECIMENOrdering Facility: [facility] Address: [address] [place] [address] Performed By: #### 5 7021-8 ####[facility] LABIA [id number] [place] [address] [place] MCHC (RBC) [Mass/Vol] 34.5 g/dL Normal 30.5-36.0 [facility] Comment on above: Order Comment: Speci men Type: BLOOD SPECIMENOrdering Facility: [facility] Address: [address] [place] [address] Performed By: #### 5 7021-8 ####[facility] LABCLIA [id number] [place] [address] [place] MCV (RBC) [Entitic vol] 88.1 fL Normal 80.0-100.0 C [facility] Comment on above: Order Comment: Speci men Type: BLOOD SPECIMENOrdering Facility: [facility] Address: [address] [place] [address] Performed By: #### 5 7021-8 ####[facility] LABCLIA [id number] [place] [address] [place] Monocytes (Bld) [#/Vol] Normal C [facility] Comment on above: Order Comment: Speci men Type: BLOOD SPECIMENOrdering Facility: [facility] Address: [address] [place] [address] Result Comment: Too Few Cells To Do Differential. Performed By: #### 5 7021-8 ####[facility] LABCLIA [id number] [place] [address] [place] Monocytes/100 WBC (Bld) Normal C [facility] Comment on above: Order Comment: Speci men Type: BLOOD SPECIMENOrdering Facility: [facility] Address: [address] [place] [address] Result Comment: Too Few Cells To Do Differential. Performed By: #### 5 7021-8 ####[facility] LABCLIA [id number] [place] [address] [place] Neutrophils (Bld) [#/Vol] Normal [facility] Comment on above: Order Comment: Speci men Type: BLOOD SPECIMENOrdering Facility: [facility] Address: [address] [place] [address] Result Comment: Too Few Cells To Do Differential. Performed By: #### 5 7021-8 ####[facility] LABCLIA [id number] [place] [id number] [place] Neutrophils/100 WBC (Bld) Normal [facility] Comment on above: Order Comment: Speci men Type: BLOOD SPECIMENOrdering Facility: [facility] Address: [address] [place] [address] Result Comment: Too Few Cells To Do Differential. Performed By: #### 5 7021-8 ####[facility] LABCLIA [id number] [place] [address] [place] Nucleated RBC (Bld) [#/Vol] 10*3/uL Normal <0.01 [facility] Comment on above: Order Comment: Speci men Type: BLOOD SPECIMENOrdering Facility: [facility] Address: [address] [place] [address] Performed By: #### 5 7021-8 ####[facility] LABIA [id number] [place] [address] [place] Nucleated RBC/100 WBC (Bld) [Ratio] 0.0 /100 WBC Normal [facility] Comment on above: Order Comment: Speci men Type: BLOOD SPECIMENOrdering Facility: [facility] Address: [address] [place] [address] Performed By: #### 5 7021-8 ####[facility] [id number] [place] [address] [place] Platelet mean volume (Bld) [Entitic vol] Normal [facility] Comment on above: Order Comment: Speci men Type: BLOOD SPECIMENOrdering Facility: [facility] Address: [address] [place] [address] Result Comment: Unab le to Report. Performed By: #### 5 7021-8 ####[facility] LABIA [id number] [place] [address] [place] Platelets (Bld) [#/Vol] 10 10*3/uL Low 150-400 C [facility] Comment on above: Order Comment: Speci men Type: BLOOD SPECIMENOrdering Facility: [facility] Address: [address] [place] [address] Result Comment: No c lot detected.Results checked and verified. Performed By: #### 5 7021-8 ####[facility] LABIA [id number] [place] [address] [place] RBC (Bld) [#/Vol] 2.27 10*6/uL Low 3.90-5.20 [facility] Comment on above: Order Comment: Speci men Type: BLOOD SPECIMENOrdering Facility: [facility] Address: [address] [place] [address] Performed By: #### 5 7021-8 ####[facility] LABCLIA [id number] [place] [address] [place] WBC (Bld) [#/Vol] 0.38 10*3/uL Low 3.70-11.00 [facility] Comment on above: Order Comment: Speci men Type: BLOOD SPECIMENOrdering Facility: [facility] Address: [address] [place] [address] Result Comment: No c lot detected. Too Few Cells To Do Differential Performed By: #### 5 7021-8 ####[facility] LABCLIA [id number] [place] [address] [place] Comprehensive metabolic 2000 panelon 07-16-2023 Albumin [Mass/Vol] 2.5 g/dL Low 3.9-4.[address] [facility] Comment on above: Order Comment: Speci men Type: BLOOD SPECIMENOrdering Facility: [facility] Address: [address] [place] [address] Performed By: #### 1 9123-9, 11589-2 ####[facility] LABCLIA [id number] [place] [address] [place] ALP [Catalytic activity/Vol] 60 U/L Normal 34-123 [facility] Comment on above: Order Comment: Speci men Type: BLOOD SPECIMENOrdering Facility: [facility] Address: [address] [place] [address] Performed By: #### 1 9123-9, 49251-5 ####[facility] LABCLIA [id number] [place] [address] [place] ALT [Catalytic activity/Vol] 12 U/L Normal 7-38 [facility] Comment on above: Order Comment: Speci men Type: BLOOD SPECIMENOrdering Facility: [facility] Address: [address] [place] [address] Performed By: #### 1 9123-9, ####[facility] LABCLIA [id number] [address] [address] [place] Anion gap [Moles/Vol] 9 mmol/L Normal 9-18 [facility] Comment on above: Order Comment: Speci men Type: BLOOD SPECIMENOrdering Facility: [facility] Address: [address] [place] [address] Performed By: #### 1 9123-9, 82122-1 ####[facility] LABCLIA [id number] [place] [address] [place] AST [Catalytic activity/Vol] 12 U/L Low 13-35 [facility] Comment on above: Order Comment: Speci men Type: BLOOD SPECIMENOrdering Facility: [facility] Address: [address] [place] [address] Performed By: #### 1 9123-9, 10334-3 ####[facility] LABCLIA [id number] [place] [address] [place] Bilirubin [Mass/Vol] 0.5 mg/dL Normal 0.2-1.3 [facility] Comment on above: Order Comment: Speci men Type: BLOOD SPECIMENOrdering Facility: [facility] Address: [address] [place] [address] Performed By: #### 1 9123-9, 59800-5 ####[facility] LABCLIA [id number] [place] [address] [place] Calcium [Mass/Vol] 7.8 mg/dL Low 8.5-10.[address] [facility] Comment on above: Order Comment: Speci men Type: BLOOD SPECIMENOrdering Facility: [facility] Address: [address] [place] [address] Performed By: #### 1 9123-9, 97610-9 ####[facility] LABCLIA [id number] [place] [address] [place] Chloride [Moles/Vol] 105 mmol/L Normal 97-105 [facility] Comment on above: Order Comment: Speci men Type: BLOOD SPECIMENOrdering Facility: [facility] Address: [address] [place] [address] Performed By: #### 1 9123-9, ####[facility] LABIA [id number] [place] [address] [place] CO2 [Moles/Vol] 23 mmol/L Normal 22-30 [facility] Comment on above: Order Comment: Speci men Type: BLOOD SPECIMENOrdering Facility: [facility] Address: [address] [place] [address] Performed By: #### 1 9123-9, ####[facility] LABIA [id number] [place] [address] [place] Creatinine [Mass/Vol] 0.79 mg/dL Normal 0.58-0.96 [facility] Comment on above: Order Comment: Speci men Type: BLOOD SPECIMENOrdering Facility: [facility] Address: [address] [place] [address] Performed By: #### 1 9123-9, ####[facility] LABIA [id number] [place] [address] [place] Creatinine and Glomerular filtration rate.predicted panel (S/P/Bld) 81 mL/min/1.73m??? Normal >=60 [facility] Comment on above: Order Comment: Speci men Type: BLOOD SPECIMENOrdering Facility: [facility] Address: [address] [place] [address] Result Comment: Berenice mated Glomerular Filtration Rate (eGFR) is calculated using the 2020 CKD-EPI creatinine equation. This equation utilizes serum creatinine, sex, and age as parameters. The creatinine assay has traceable calibration to isotope dilution-mass spectrometry. Refer to KDIGO guidelines for clinical interpretation. In patients with unstable renal function, e.g. those with acute kidney injury, the eGFR may not accurately reflect actual GFR. Performed By: #### 1 23-9, ####[facility] LABCLIA [id number] [address] [address] [place] Glucose [Mass/Vol] 96 mg/dL Normal 74-[address] [facility] Comment on above: Order Comment: Specmaria eugenia escobar Type: BLOOD SPECIMENOrdering Facility: [facility] Address: [address] [place] [address] Result Comment: The [place] [employer] (ADA) provides guidance for cutoff values for fasting glucose and random glucose. The ADA defines fasting as no caloric intake for at least 8 hours. Fasting plasma glucose results between 100 to 125 mg/dL indicate increased risk for diabetes (prediabetes).Fasting plasma glucose results greater than or equal to 126 mg/dL meet the criteria for diagnosis of diabetes. In the absence of unequivocal hyperglycemia, results should be confirmed by repeat testing. In a patient with classic symptoms of hyperglycemia or hyperglycemic crisis, random plasma glucose results greater than or equal to 200 mg/dL meet the criteria for diagnosis of diabetes.Reference: Standards of Medical Care in Diabetes 2016, [place] [employer]. Diabetes Care. 2016.39(Suppl 1). Performed By: #### 1 239, ####[facility] LABCLIA [id number] [place] [id number] [place] Potassium [Moles/Vol] 3.2 mmol/L Low 3.7-5.1 [facility] Comment on above: Order Comment: Elvia men Type: BLOOD SPECIMENOrdering Facility: [facility] Address: [address] [place] [address] Performed By: #### 1 91239, ####[facility] LABCLIA [id number] [address] [address] [place] Protein [Mass/Vol] 4.5 g/dL Low 6.3-8.[address] [facility] Comment on above: Order Comment: Speci men Type: BLOOD SPECIMENOrdering Facility: [facility] Address: [address] [place] [address] Performed By: #### 1 9123-9, ####[facility] LABCLIA [id number] [address] [address] [place] Sodium [Moles/Vol] 137 mmol/L Normal 136-[address] [facility] Comment on above: Order Comment: Speci men Type: BLOOD SPECIMENOrdering Facility: [facility] Address: [address] [place] [address] Performed By: #### 1 9123-9, ####[facility] LABCLIA [id number] [place] [address] [place] Urea nitrogen [Mass/Vol] 9 mg/dL Normal 7-21 [facility] Comment on above: Order Comment: Speci men Type: BLOOD SPECIMENOrdering Facility: [facility] Address: [address] [place] [address] Performed By: #### 1 9123-9, ####[facility] LABCLIA [id number] [place] [address] [place] Gastrointestinal pathogens p jordan KIAH+probe (Stl)on 07-16-2023 ADENOVIRUS F 40/41 Not detected Normal Not Detected Cl [facility] Comment on above: Order Comment: Speci men Type: STOOL SPECIMENOrdering Facility: [facility] Address: [address] [place] [address] Performed By: #### 7 9381-0 ####[facility] LABCLIA [id number] [place] [address] [place] ASTROVIRUS Not detected Normal Not Detected [facility] Comment on above: Order Comment: Speci men Type: STOOL SPECIMENOrdering Facility: [facility] Address: [address] [place] [address] Performed By: #### 7 9381-0 ####[facility] LABCLIA [id number] [place] [address] [place] C. cayetanensis DNA KIAH+probe Ql (Unsp spec) Not detected Normal Not Detected [facility] Comment on above: Order Comment: Speci men Type: STOOL SPECIMENOrdering Facility: [facility] Address: [address] [place] [address] Performed By: #### 7 9381-0 ####[facility] LABCLIA [id number] [place] [address] [place] Campylobacter sp DNA.diarrheagenic KIAH+probe Ql (Stl) Not detected Normal Not Detected [facility] Comment on above: Order Comment: Speci men Type: STOOL SPECIMENOrdering Facility: [facility] Address: [address] [place] [address] Performed By: #### 7 9381-0 ####[facility] LABCLIA [id number] [place] [address] [place] Cryptosporidium sp DNA KIAH+probe Ql (Unsp spec) Not detected Normal Not detected [facility] Comment on above: Order Comment: Speci men Type: STOOL SPECIMENOrdering Facility: [facility] Address: [address] [place] [address] Performed By: #### 7 9381-0 ####[facility] LABCLIA [id number] [place] [address] [place] E. COLI (EAEC) Not detected Normal Not Detected [facility] Comment on above: Order Comment: Speci men Type: STOOL SPECIMENOrdering Facility: [facility] Address: [address] [place] [address] Performed By: #### 7 9381-0 ####[facility] LABCLIA [id number] [place] [address] [place] E. COLI (EPEC) Not detected Normal Not Detected [facility] Comment on above: Order Comment: Speci men Type: STOOL SPECIMENOrdering Facility: [facility] Address: [address] [place] [address] Performed By: #### 7 9381-0 ####[facility] LABCLIA [id number] [place] [address] [place] E. COLI (ETEC) Not detected Normal Not Detected [facility] Comment on above: Order Comment: Speci men Type: STOOL SPECIMENOrdering Facility: [facility] Address: [address] [place] [address] Performed By: #### 7 9381-0 ####[facility] LABCLIA [id number] [place] [address] [place] E. COLI (STEC) Not detected Normal Not Detected [facility] Comment on above: Order Comment: Speci men Type: STOOL SPECIMENOrdering Facility: [facility] Address: [address] [place] [address] Performed By: #### 7 9381-0 ####[facility] LABCLIA [id number] [place] [address] [place] E. coli O157:H7 DNA KIAH+probe Ql (Unsp spec) Not Applicable Normal Not Detected [facility] Comment on above: Order Comment: Speci men Type: STOOL SPECIMENOrdering Facility: [facility] Address: [address] [place] [address] Performed By: #### 7 9381-0 ####[facility] LABCLIA [id number] [place] [address] [place] E. histolytica DNA KIAH+probe Ql (Unsp spec) Not detected Normal Not Detected [facility] Comment on above: Order Comment: Speci men Type: STOOL SPECIMENOrdering Facility: [facility] Address: [address] [place] [address] Performed By: #### 7 9381-0 ####[facility] LABCLIA [id number] [place] [address] [place] G. lamblia DNA KIAH+probe Ql (Unsp spec) Not detected Normal Not Detected [facility] Comment on above: Order Comment: Speci men Type: STOOL SPECIMENOrdering Facility: [facility] Address: [address] [place] [address] Performed By: #### 7 9381-0 ####[facility] LABCLIA [id number] [place] [address] [place] NOROVIRUS GI/GII Not detected Normal Not Detected [facility] Comment on above: Order Comment: Speci men Type: STOOL SPECIMENOrdering Facility: [facility] Address: [address] [place] [address] Performed By: #### 7 9381-0 ####[facility] LABCLIA [id number] [place] [address] [place] PLESIOMONAS SHIGELLOIDES Not detected Normal Not Detec evelyn [facility] Comment on above: Order Comment: Speci men Type: STOOL SPECIMENOrdering Facility: [facility] Address: [address] [place] [address] Performed By: #### 7 9381-0 ####[facility] LABCLIA [id number] [place] [address] [place] ROTOVIRUS A Not detected Normal Not Detected [facility] Comment on above: Order Comment: Speci men Type: STOOL SPECIMENOrdering Facility: [facility] Address: [address] [place] [address] Performed By: #### 7 9381-0 ####[facility] LABCLIA [id number] [place] [address] [place] Salmonella sp DNA KIAH+probe Ql (Unsp spec) Not detected Normal Not Detected [facility] Comment on above: Order Comment: Speci men Type: STOOL SPECIMENOrdering Facility: [facility] Address: [address] [place] [address] Performed By: #### 7 9381-0 ####[facility] LABCLIA [id number] [place] [address] [place] SAPOVIRUS I,II,IV,V Not detected Normal Not Detected [facility] Comment on above: Order Comment: Speci men Type: STOOL SPECIMENOrdering Facility: [facility] Address: [address] [place] [address] Performed By: #### 7 9381-0 ####[facility] LABIA [id number] [place] [address] [place] Shigella species+EIEC invasion plasmid antigen H ipaH gene KIAH+probe Ql (Stl) Not detected Normal Not Detected [facility] Comment on above: Order Comment: Speci men Type: STOOL SPECIMENOrdering Facility: [facility] Address: [address] [place] [address] Performed By: #### 7 9381-0 ####[facility] LABIA [id number] [place] [address] [place] V. cholerae DNA KIAH+probe Ql (Unsp spec) Not detected Normal Not Detected [facility] Comment on above: Order Comment: Speci men Type: STOOL SPECIMENOrdering Facility: [facility] Address: [address] [place] [address] Performed By: #### 7 9381-0 ####[facility] LABCLIA [id number] [place] [address] [place] Vibrio sp DNA KIAH+probe Nom (Unsp spec) Not detected Normal Not Detected [facility] Comment on above: Order Comment: Speci men Type: STOOL SPECIMENOrdering Facility: [facility] Address: [address] [place] [address] Performed By: #### 7 9381-0 ####[facility] LABCLIA [id number] [place] [address] [place] Yersinia sp DNA KIAH+probe Nom (Unsp spec) Not detected Normal Not Detected [facility] Comment on above: Order Comment: Speci men Type: STOOL SPECIMENOrdering Facility: [facility] Address: [address] [place] [address] Performed By: #### 7 9381-0 ####[facility] LABCLIA [id number] [place] [address] [place] Magnesium SerPl-mCncon 07-16 Magnesium [Mass/Vol] 2.0 mg/dL Normal 1.7-2.3 [facility] Comment on above: Order Comment: Speci men Type: BLOOD SPECIMENOrdering Facility: [facility] Address: [address] [place] [address] Performed By: #### 1 9123-9, 25859-8 ####[facility] LABCLIA [id number] [place] [address] [place] SOCIAL WORKon 07-16-2023 SOCIAL WORK Normal [place] [place] THERAPY NTon 07-16-2023 THERAPY NT Normal [facility] THERAPY NT Normal [facility] C diff Tox gens Stl Ql KIAH+p robeon 07-15-2023 C. difficile toxin genes KIAH+probe Ql (Stl) Negative Normal Negative for C. difficile toxin by PCR [facility] Comment on above: Order Comment: Speci men Type: STOOL SPECIMENOrdering Facility: [facility] Address: [address] [place] [address] Performed By: #### 5 4067-4 ####[facility] LABCLIA [id number] [place] [address] [place] CBC W Auto Differential pane l (Bld)on 07-15-2023 Basophils (Bld) [#/Vol] Normal C [facility] Comment on above: Order Comment: Speci men Type: BLOOD SPECIMENOrdering Facility: [facility] Address: [address] [place] [address] Result Comment: Too Few Cells To Do Differential. Performed By: #### 5 7021-8 ####[facility] LABCLIA [id number] [place] [address] [place] Basophils/100 WBC (Bld) Normal C [facility] Comment on above: Order Comment: Speci men Type: BLOOD SPECIMENOrdering Facility: [facility] Address: [address] [place] [address] Result Comment: Too Few Cells To Do Differential. Performed By: #### 5 7021-8 ####[facility] LABCLIA [id number] [place] [address] [place] Differential cell count method Nom (Bld) Auto Normal [facility] Comment on above: Order Comment: Speci men Type: BLOOD SPECIMENOrdering Facility: [facility] Address: [address] [place] [address] Performed By: #### 5 7021-8 ####[facility] LABCLIA [id number] [place] [address] [place] Eosinophils (Bld) [#/Vol] Normal [facility] Comment on above: Order Comment: Speci men Type: BLOOD SPECIMENOrdering Facility: [facility] Address: [address] [place] [address] Result Comment: Too Few Cells To Do Differential. Performed By: #### 5 7021-8 ####[facility] LABCLIA [id number] [place] [address] [place] Eosinophils/100 WBC (Bld) Normal [facility] Comment on above: Order Comment: Speci men Type: BLOOD SPECIMENOrdering Facility: [facility] Address: [address] [place] [address] Result Comment: Too Few Cells To Do Differential. Performed By: #### 5 7021-8 ####[facility] LABCLIA [id number] [place] [address] [place] Erythrocyte distribution wid th (RBC) [Ratio] 15.5 % High 11.5-15.0 [facility] Comment on above: Order Comment: Speci men Type: BLOOD SPECIMENOrdering Facility: [facility] Address: [address] [place] [address] Performed By: #### 5 7021-8 ####[facility] LABCLIA [id number] [place] [address] [place] Hematocrit (Bld) [Volume fraction] 18.5 % Low 3 6.0-46.0 [facility] Comment on above: Order Comment: Speci men Type: BLOOD SPECIMENOrdering Facility: [facility] Address: [address] [place] [address] Performed By: #### 5 7021-8 ####[facility] LABIA [id number] [place] [address] [place] Hemoglobin (Bld) [Mass/Vol] 6.4 g/dL Low 11.5-15. 5 [facility] Comment on above: Order Comment: Speci men Type: BLOOD SPECIMENOrdering Facility: [facility] Address: [address] [place] [address] Performed By: #### 5 7021-8 ####[facility] LABIA [id number] [place] [address] [place] Immature granulocytes (Bld) [#/Vol] Normal [facility] Comment on above: Order Comment: Speci men Type: BLOOD SPECIMENOrdering Facility: [facility] Address: [address] [place] [address] Result Comment: Too Few Cells To Do Differential. Performed By: #### 5 7021-8 ####[facility] LABIA [id number] [place] [address] [place] Immature granulocytes/100 WBC (Bld) Normal [facility] Comment on above: Order Comment: Speci men Type: BLOOD SPECIMENOrdering Facility: [facility] Address: [address] [place] [address] Result Comment: Too Few Cells To Do Differential. Performed By: #### 5 7021-8 ####[facility] LABCLIA [id number] [place] [address] [place] Lymphocytes (Bld) [#/Vol] Normal [facility] Comment on above: Order Comment: Speci men Type: BLOOD SPECIMENOrdering Facility: [facility] Address: [address] [place] [address] Result Comment: Too Few Cells To Do Differential. Performed By: #### 5 7021-8 ####[facility] LABCLIA [id number] [place] [address] [place] Lymphocytes/100 WBC (Bld) Normal [facility] Comment on above: Order Comment: Speci men Type: BLOOD SPECIMENOrdering Facility: [facility] Address: [address] [place] [address] Result Comment: Too Few Cells To Do Differential. Performed By: #### 5 7021-8 ####[facility] LABCLIA [id number] [place] [address] [place] MCH (RBC) [Entitic mass] 30.9 pg Normal 26.0-34.0 [facility] Comment on above: Order Comment: Speci men Type: BLOOD SPECIMENOrdering Facility: [facility] Address: [address] [place] [address] Performed By: #### 5 7021-8 ####[facility] LABCLIA [id number] [place] [address] [place] MCHC (RBC) [Mass/Vol] 34.6 g/dL Normal 30.5-36.0 [facility] Comment on above: Order Comment: Speci men Type: BLOOD SPECIMENOrdering Facility: [facility] Address: [address] [place] [address] Performed By: #### 5 7021-8 ####[facility] LABCLIA [id number] [place] [address] [place] MCV (RBC) [Entitic vol] 89.4 fL Normal 80.0-100.0 C [facility] Comment on above: Order Comment: Speci men Type: BLOOD SPECIMENOrdering Facility: [facility] Address: [address] [place] [address] Performed By: #### 5 7021-8 ####[facility] LABCLIA [id number] [place] [address] [place] Monocytes (Bld) [#/Vol] Normal C [facility] Comment on above: Order Comment: Speci men Type: BLOOD SPECIMENOrdering Facility: [facility] Address: [address] [place] [address] Result Comment: Too Few Cells To Do Differential. Performed By: #### 5 7021-8 ####[facility] LABCLIA [id number] [place] [address] [place] Monocytes/100 WBC (Bld) Normal C [facility] Comment on above: Order Comment: Speci men Type: BLOOD SPECIMENOrdering Facility: [facility] Address: [address] [place] [address] Result Comment: Too Few Cells To Do Differential. Performed By: #### 5 7021-8 ####[facility] LABCLIA [id number] [place] [address] [place] Neutrophils (Bld) [#/Vol] Normal [facility] Comment on above: Order Comment: Speci men Type: BLOOD SPECIMENOrdering Facility: [facility] Address: [address] [place] [address] Result Comment: Too Few Cells To Do Differential. Performed By: #### 5 7021-8 ####[facility] LABCLIA [id number] [place] [address] [place] Neutrophils/100 WBC (Bld) Normal [facility] Comment on above: Order Comment: Speci men Type: BLOOD SPECIMENOrdering Facility: [facility] Address: [address] [place] [address] Result Comment: Too Few Cells To Do Differential. Performed By: #### 5 7021-8 ####[facility] LABCLIA [id number] [place] [address] [place] Nucleated RBC (Bld) [#/Vol] 0.02 10*3/uL High <0.01 [facility] Comment on above: Order Comment: Speci men Type: BLOOD SPECIMENOrdering Facility: [facility] Address: [address] [place] [address] Performed By: #### 5 7021-8 ####[facility] LABIA [id number] [place] [address] [place] Nucleated RBC/100 WBC (Bld) [Ratio] 4.7 /100 WBC Normal [facility] Comment on above: Order Comment: Speci men Type: BLOOD SPECIMENOrdering Facility: [facility] Address: [address] [place] [address] Performed By: #### 5 7021-8 ####[facility] LABIA [id number] [place] [address] [place] Platelet mean volume (Bld) [Entitic vol] Normal [facility] Comment on above: Order Comment: Speci men Type: BLOOD SPECIMENOrdering Facility: [facility] Address: [address] [place] [address] Result Comment: Unab le to Report. Performed By: #### 5 7021-8 ####[facility] LABIA [id number] [place] [address] [place] Platelets (Bld) [#/Vol] 8 10*3/uL Critically low 150-400 [facility] Comment on above: Order Comment: Speci men Type: BLOOD SPECIMENOrdering Facility: [facility] Address: [address] [place] [address] Result Comment: Plat elet count confirmed by manual review of peripheral blood smear. Results checked and verified.No clot detected. Performed By: #### 5 7021-8 ####[facility] LABCLIA [id number] [place] [address] [place] RBC (Bld) [#/Vol] 2.07 10*6/uL Low 3.90-5.20 [facility] Comment on above: Order Comment: Speci men Type: BLOOD SPECIMENOrdering Facility: [facility] Address: [address] [place] [address] Performed By: #### 5 7021-8 ####[facility] LABCLIA [id number] [place] [address] [place] WBC (Bld) [#/Vol] 0.43 10*3/uL Low 3.70-11.00 [facility] Comment on above: Order Comment: Speci men Type: BLOOD SPECIMENOrdering Facility: [facility] Address: [address] [place] [address] Result Comment: Resu lts checked and verified.No clot detected. Too Few Cells To Do Differential Performed By: #### 5 7021-8 ####[facility] LABCLIA [id number] [place] [address] [place] Comprehensive metabolic 2000 panelon 07-15-2023 Albumin [Mass/Vol] 2.3 g/dL Low 3.9-4.[address] [facility] Comment on above: Order Comment: Speci men Type: BLOOD SPECIMENOrdering Facility: [facility] Address: [address] [place] [address] Performed By: #### 1 9123-9, 47270-2 ####[facility] LABCLIA [id number] [place] [address] [place] ALP [Catalytic activity/Vol] 56 U/L Normal 34-123 [facility] Comment on above: Order Comment: Speci men Type: BLOOD SPECIMENOrdering Facility: [facility] Address: [address] [place] [address] Performed By: #### 1 9123-9, 52361-4 ####[facility] LABCLIA [id number] [place] [address] [place] ALT [Catalytic activity/Vol] 13 U/L Normal 7-38 [facility] Comment on above: Order Comment: Speci men Type: BLOOD SPECIMENOrdering Facility: [facility] Address: [address] [place] [address] Performed By: #### 1 9123-9, 98762-3 ####[facility] LABCLIA [id number] [place] [address] [place] Anion gap [Moles/Vol] 8 mmol/L Low 9-18 [facility] Comment on above: Order Comment: Speci men Type: BLOOD SPECIMENOrdering Facility: [facility] Address: [address] [place] [address] Performed By: #### 1 9123-9, ####[facility] LABCLIA [id number] [place] [address] [place] AST [Catalytic activity/Vol] 12 U/L Low 13-35 [facility] Comment on above: Order Comment: Speci men Type: BLOOD SPECIMENOrdering Facility: [facility] Address: [address] [place] [address] Performed By: #### 1 9123-9, 97415-7 ####[facility] LABCLIA [id number] [place] [address] [place] Bilirubin [Mass/Vol] 0.7 mg/dL Normal 0.2-1.3 [facility] Comment on above: Order Comment: Speci men Type: BLOOD SPECIMENOrdering Facility: [facility] Address: [address] [place] [address] Performed By: #### 1 9123-9, ####[facility] LABCLIA [id number] [place] [address] [place] Calcium [Mass/Vol] 7.9 mg/dL Low 8.5-10.[address] [facility] Comment on above: Order Comment: Speci men Type: BLOOD SPECIMENOrdering Facility: [facility] Address: [address] [place] [address] Performed By: #### 1 9123-9, ####[facility] LABCLIA [id number] [address] [address] [place] Chloride [Moles/Vol] 103 mmol/L Normal 97-105 [facility] Comment on above: Order Comment: Speci men Type: BLOOD SPECIMENOrdering Facility: [facility] Address: [address] [place] [address] Performed By: #### 1 9123-9, 73408-3 ####[facility] LABCLIA [id number] [place] [address] [place] CO2 [Moles/Vol] 23 mmol/L Normal 22-30 [facility] Comment on above: Order Comment: Speci men Type: BLOOD SPECIMENOrdering Facility: [facility] Address: [address] [place] [address] Performed By: #### 1 9123-9, ####[facility] LABIA [id number] [place] [address] [place] Creatinine [Mass/Vol] 0.81 mg/dL Normal 0.58-0.96 [facility] Comment on above: Order Comment: Speci men Type: BLOOD SPECIMENOrdering Facility: [facility] Address: [address] [place] [address] Performed By: #### 1 9123-9, ####[facility] LABIA [id number] [place] [address] [place] Creatinine and Glomerular filtration rate.predicted panel (S/P/Bld) 78 mL/min/1.73m??? Normal >=60 [facility] Comment on above: Order Comment: Speci men Type: BLOOD SPECIMENOrdering Facility: [facility] Address: [address] [place] [address] Result Comment: Berenice mated Glomerular Filtration Rate (eGFR) is calculated using the 2020 CKD-EPI creatinine equation. This equation utilizes serum creatinine, sex, and age as parameters. The creatinine assay has traceable calibration to isotope dilution-mass spectrometry. Refer to KDIGO guidelines for clinical interpretation. In patients with unstable renal function, e.g. those with acute kidney injury, the eGFR may not accurately reflect actual GFR. Performed By: #### 1 9123-9, 58652-3 ####[facility] LABIA [id number] [place] [address] [place] Glucose [Mass/Vol] 94 mg/dL Normal 74-[address] [facility] Comment on above: Order Comment: Elvia escobar Type: BLOOD SPECIMENOrdering Facility: [facility] Address: [address] [place] [address] Result Comment: The [place] [employer] (ADA) provides guidance for cutoff values for fasting glucose and random glucose. The ADA defines fasting as no caloric intake for at least 8 hours. Fasting plasma glucose results between 100 to 125 mg/dL indicate increased risk for diabetes (prediabetes).Fasting plasma glucose results greater than or equal to 126 mg/dL meet the criteria for diagnosis of diabetes. In the absence of unequivocal hyperglycemia, results should be confirmed by repeat testing. In a patient with classic symptoms of hyperglycemia or hyperglycemic crisis, random plasma glucose results greater than or equal to 200 mg/dL meet the criteria for diagnosis of diabetes.Reference: Standards of Medical Care in Diabetes 2016, [place] [employer]. Diabetes Care. 2016.39(Suppl 1). Performed By: #### 1 9123-9, ####[facility] LABIA [id number] [place] [id number] [place] Potassium [Moles/Vol] 3.6 mmol/L Low 3.7-5.1 [facility] Comment on above: Order Comment: Elvia escobar Type: BLOOD SPECIMENOrdering Facility: [facility] Address: [address] [place] [address] Performed By: #### 1 9123-9, 07299-9 ####[facility] LABCLIA [id number] [place] [address] [place] Protein [Mass/Vol] 4.6 g/dL Low 6.3-8.[address] [facility] Comment on above: Order Comment: Speci men Type: BLOOD SPECIMENOrdering Facility: [facility] Address: [address] [place] [address] Performed By: #### 1 9123-9, 55258-7 ####[facility] LABCLIA [id number] [place] [address] [place] Sodium [Moles/Vol] 134 mmol/L Low 136-[address] [facility] Comment on above: Order Comment: Speci men Type: BLOOD SPECIMENOrdering Facility: [facility] Address: [address] [place] [address] Performed By: #### 1 9123-9, 93161-3 ####[facility] LABCLIA [id number] [place] [address] [place] Urea nitrogen [Mass/Vol] 14 mg/dL Normal 7-21 [facility] Comment on above: Order Comment: Speci men Type: BLOOD SPECIMENOrdering Facility: [facility] Address: [address] [place] [address] Performed By: #### 1 9123-9, 12299-1 ####[facility] LABCLIA [id number] [place] [address] [place] Magnesium SerPl-mCncon 07-15 Magnesium [Mass/Vol] 2.1 mg/dL Normal 1.7-2.3 [facility] Comment on above: Order Comment: Speci men Type: BLOOD SPECIMENOrdering Facility: [facility] Address: [address] [place] [address] Performed By: #### 1 9123-9, 72825-1 ####[facility] LABCLIA [id number] [place] [address] [place] THERAPY NTon 07-15-2023 THERAPY NT Normal [facility] CT ABD/PEL W IVCONon 023 CT ABD/PEL W IVCON Normal [facility] CT CHEST W IVCONon 3 CT CHEST W IVCON Normal [facility] NURSING PROGon 07-14-2023 NURSING PROG [facility] W Auto Differential pane l (Bld)on 07-13-2023 Anisocytosis Ql (Bld) Present Normal [facility] Comment on above: Order Comment: Speci men Type: BLOOD SPECIMENOrdering Facility: [facility] Address: [address] [place] [address] Performed By: #### 5 7021-8 ####[facility] LABCLIA [id number] [place] [address] [place] Basophils (Bld) [#/Vol] 0.00 10*3/uL Normal <0.11 [facility] Comment on above: Order Comment: Speci men Type: BLOOD SPECIMENOrdering Facility: [facility] Address: [address] [place] [address] Performed By: #### 5 7021-8 ####[facility] LABCLIA [id number] [place] [address] [place] Basophils/100 WBC (Bld) 0.0 % Normal [facility] Comment on above: Order Comment: Speci men Type: BLOOD SPECIMENOrdering Facility: [facility] Address: [address] [place] [address] Performed By: #### 5 7021-8 ####[facility] LABCLIA [id number] [place] [address] [place] BLAST% 1.8 % High <=0.0 [facility] Comment on above: Order Comment: Speci men Type: BLOOD SPECIMENOrdering Facility: [facility] Address: [address] [place] [address] Performed By: #### 5 7021-8 ####[facility] LABCLIA [id number] [place] [address] [place] Differential cell count method Nom (Bld) Manual Normal [facility] Comment on above: Order Comment: Speci men Type: BLOOD SPECIMENOrdering Facility: [facility] Address: [address] [place] [address] Performed By: #### 5 7021-8 ####[facility] LABCLIA [id number] [place] [address] [place] Eosinophils (Bld) [#/Vol] 0.00 10*3/uL Normal <0.46 [facility] Comment on above: Order Comment: Speci men Type: BLOOD SPECIMENOrdering Facility: [facility] Address: [address] [place] [address] Performed By: #### 5 7021-8 ####[facility] LABIA [id number] [place] [address] [place] Eosinophils/100 WBC (Bld) 0.0 % Normal [facility] Comment on above: Order Comment: Speci men Type: BLOOD SPECIMENOrdering Facility: [facility] Address: [address] [place] [address] Performed By: #### 5 7021-8 ####[facility] LABIA [id number] [place] [address] [place] Erythrocyte distribution wid th (RBC) [Ratio] 15.3 % High 11.5-15.0 [facility] Comment on above: Order Comment: Speci men Type: BLOOD SPECIMENOrdering Facility: [facility] Address: [address] [place] [address] Performed By: #### 5 7021-8 ####[facility] LABCLIA [id number] [place] [address] [place] Hematocrit (Bld) [Volume fraction] 20.6 % Low 3 6.0-46.0 [facility] Comment on above: Order Comment: Speci men Type: BLOOD SPECIMENOrdering Facility: [facility] Address: [address] [place] [address] Performed By: #### 5 7021-8 ####[facility] LABCLIA [id number] [place] [address] [place] Hemoglobin (Bld) [Mass/Vol] 7.3 g/dL Low 11.5-15. 5 [facility] Comment on above: Order Comment: Speci men Type: BLOOD SPECIMENOrdering Facility: [facility] Address: [address] [place] [address] Performed By: #### 5 7021-8 ####[facility] LABIA [id number] [place] [address] [place] Lymphocytes (Bld) [#/Vol] 0.29 10*3/uL Low 1.00-4.0 0 [facility] Comment on above: Order Comment: Speci men Type: BLOOD SPECIMENOrdering Facility: [facility] Address: [address] [place] [address] Performed By: #### 5 7021-8 ####[facility] LABIA [id number] [place] [address] [place] Lymphocytes/100 WBC (Bld) 47.8 % Normal [facility] Comment on above: Order Comment: Speci men Type: BLOOD SPECIMENOrdering Facility: [facility] Address: [address] [place] [address] Performed By: #### 5 7021-8 ####[facility] LABCLIA [id number] [place] [address] [place] MCH (RBC) [Entitic mass] 30.9 pg Normal 26.0-34.0 [facility] Comment on above: Order Comment: Speci men Type: BLOOD SPECIMENOrdering Facility: [facility] Address: [address] [place] [address] Performed By: #### 5 7021-8 ####[facility] LABCLIA [id number] [place] [address] [place] MCHC (RBC) [Mass/Vol] 35.4 g/dL Normal 30.5-36.0 [facility] Comment on above: Order Comment: Speci men Type: BLOOD SPECIMENOrdering Facility: [facility] Address: [address] [place] [address] Performed By: #### 5 7021-8 ####[facility] LABIA [id number] [place] [address] [place] MCV (RBC) [Entitic vol] 87.3 fL Normal 80.0-100.0 [facility] Comment on above: Order Comment: Speci men Type: BLOOD SPECIMENOrdering Facility: [facility] Address: [address] [place] [address] Performed By: #### 5 7021-8 ####[facility] LABIA [id number] [place] [address] [place] Monocytes (Bld) [#/Vol] 0.07 10*3/uL Normal <0.87 [facility] Comment on above: Order Comment: Speci men Type: BLOOD SPECIMENOrdering Facility: [facility] Address: [address] [place] [address] Performed By: #### 5 7021-8 ####[facility] LABIA [id number] [place] [address] [place] Monocytes/100 WBC (Bld) 10.8 % Normal C [facility] Comment on above: Order Comment: Speci men Type: BLOOD SPECIMENOrdering Facility: [facility] Address: [address] [place] [address] Performed By: #### 5 7021-8 ####[facility] LABCLIA [id number] [place] [address] [place] Neutrophils (Bld) [#/Vol] 0.24 10*3/uL Low 1.45-7.5 0 [facility] Comment on above: Order Comment: Speci men Type: BLOOD SPECIMENOrdering Facility: [facility] Address: [address] [place] [address] Performed By: #### 5 7021-8 ####[facility] LABCLIA [id number] [place] [address] [place] Neutrophils/100 WBC (Bld) 39.6 % Normal [facility] Comment on above: Order Comment: Speci men Type: BLOOD SPECIMENOrdering Facility: [facility] Address: [address] [place] [address] Performed By: #### 5 7021-8 ####[facility] LABCLIA [id number] [place] [address] [place] Nucleated RBC (Bld) [#/Vol] 0.02 10*3/uL High <0.01 [facility] Comment on above: Order Comment: Speci men Type: BLOOD SPECIMENOrdering Facility: [facility] Address: [address] [place] [address] Performed By: #### 5 7021-8 ####[facility] LABIA [id number] [place] [address] [place] Nucleated RBC/100 WBC (Bld) [Ratio] 2.7 /100 WBC Normal [facility] Comment on above: Order Comment: Speci men Type: BLOOD SPECIMENOrdering Facility: [facility] Address: [address] [place] [address] Performed By: #### 5 7021-8 ####[facility] LABCLIA [id number] [place] [address] [place] Ovalocytes LM Ql (Bld) Few Normal [facility] Comment on above: Order Comment: Speci men Type: BLOOD SPECIMENOrdering Facility: [facility] Address: [address] [place] [address] Performed By: #### 5 7021-8 ####[facility] LABCLIA [id number] [place] [address] [place] Platelet mean volume (Bld) [Entitic vol] Normal [facility] Comment on above: Order Comment: Speci men Type: BLOOD SPECIMENOrdering Facility: [facility] Address: [address] [place] [address] Result Comment: Unab le to Report. Performed By: #### 5 7021-8 ####[facility] LABCLIA [id number] [place] [address] [place] Platelets (Bld) [#/Vol] 10 10*3/uL Low 150-400 C [facility] Comment on above: Order Comment: Speci men Type: BLOOD SPECIMENOrdering Facility: [facility] Address: [address] [place] [address] Performed By: #### 5 7021-8 ####[facility] LABCLIA [id number] [place] [address] [place] Platelets Estimate (Bld) [#/Vol] Decreased Normal [facility] Comment on above: Order Comment: Speci men Type: BLOOD SPECIMENOrdering Facility: [facility] Address: [address] [place] [address] Performed By: #### 5 7021-8 ####[facility] LABCLIA [id number] [place] [address] [place] Polychromasia LM Ql (Bld) Slight Normal [facility] Comment on above: Order Comment: Speci men Type: BLOOD SPECIMENOrdering Facility: [facility] Address: [address] [place] [address] Performed By: #### 5 7021-8 ####[facility] LABCLIA [id number] [place] [address] [place] RBC (Bld) [#/Vol] 2.36 10*6/uL Low 3.90-5.20 [facility] Comment on above: Order Comment: Speci men Type: BLOOD SPECIMENOrdering Facility: [facility] Address: [address] [place] [address] Performed By: #### 5 7021-8 ####[facility] LABCLIA [id number] [place] [address] [place] RBC FRAGMENTS Few Abnormal None [facility] [place] Comment on above: Order Comment: Speci men Type: BLOOD SPECIMENOrdering Facility: [facility] Address: [address] [place] [address] Performed By: #### 5 7021-8 ####[facility] LABIA [id number] [place] [address] [place] RED CELL MORPH Reviewed: see result s of individual morphologies Normal [facility] Comment on above: Order Comment: Speci men Type: BLOOD SPECIMENOrdering Facility: [facility] Address: [address] [place] [address] Performed By: #### 5 7021-8 ####[facility] LABIA [id number] [place] [address] [place] WBC (Bld) [#/Vol] 0.61 10*3/uL Low 3.70-11.00 [facility] Comment on above: Order Comment: Speci men Type: BLOOD SPECIMENOrdering Facility: [facility] Address: [address] [place] [address] Result Comment: Resu lts checked and verified.No clot detected. Performed By: #### 5 7021-8 ####[facility] LABIA [id number] [place] [address] [place] Comprehensive metabolic 2000 panelon 07-13-2023 Albumin [Mass/Vol] 2.6 g/dL Low 3.9-4.[address] [facility] Comment on above: Order Comment: Speci men Type: BLOOD SPECIMENOrdering Facility: [facility] Address: [address] [place] [address] Performed By: #### 2 777-1, 65874-7, ####[facility] LABCLIA [id number] [place] [address] [place] ALP [Catalytic activity/Vol] 49 U/L Normal 34-123 [facility] Comment on above: Order Comment: Speci men Type: BLOOD SPECIMENOrdering Facility: [facility] Address: [address] [place] [address] Performed By: #### 2 777-1, , ####[facility] LABCLIA [id number] [place] [address] [place] ALT [Catalytic activity/Vol] 16 U/L Normal 7-38 [facility] Comment on above: Order Comment: Speci men Type: BLOOD SPECIMENOrdering Facility: [facility] Address: [address] [place] [address] Performed By: #### 2 777-1, , ####[facility] LABCLIA [id number] [place] [address] [place] Anion gap [Moles/Vol] 6 mmol/L Low 9-18 [facility] Comment on above: Order Comment: Speci men Type: BLOOD SPECIMENOrdering Facility: [facility] Address: [address] [place] [address] Performed By: #### 2 777-1, , ####[facility] LABCLIA [id number] [place] [address] [place] AST [Catalytic activity/Vol] 13 U/L Normal 13-35 [facility] Comment on above: Order Comment: Speci men Type: BLOOD SPECIMENOrdering Facility: [facility] Address: [address] [place] [address] Performed By: #### 2 777-1, , ####[facility] LABCLIA [id number] [place] [id number] [place] Bilirubin [Mass/Vol] 0.8 mg/dL Normal 0.2-1.3 [facility] Comment on above: Order Comment: Speci men Type: BLOOD SPECIMENOrdering Facility: [facility] Address: [address] [place] [address] Performed By: #### 2 777-1, , ####[facility] LABCLIA [id number] [place] [address] [place] Calcium [Mass/Vol] 8.1 mg/dL Low 8.5-10.[address] [facility] Comment on above: Order Comment: Speci men Type: BLOOD SPECIMENOrdering Facility: [facility] Address: [address] [place] [address] Performed By: #### 2 777-1, , ####[facility] LABCLIA [id number] [place] [address] [place] Chloride [Moles/Vol] 103 mmol/L Normal 97-105 [facility] Comment on above: Order Comment: Speci men Type: BLOOD SPECIMENOrdering Facility: [facility] Address: [address] [place] [address] Performed By: #### 2 777-1, , ####[facility] LABCLIA [id number] [place] [address] [place] CO2 [Moles/Vol] 25 mmol/L Normal 22-30 [facility] Comment on above: Order Comment: Speci men Type: BLOOD SPECIMENOrdering Facility: [facility] Address: [address] [place] [address] Performed By: #### 2 777-1, , ####[facility] LABCLIA [id number] [place] [address] [place] Creatinine [Mass/Vol] 0.82 mg/dL Normal 0.58-0.96 [facility] Comment on above: Order Comment: Elvia escobar Type: BLOOD SPECIMENOrdering Facility: [facility] Address: [address] [place] [address] Performed By: #### 2 777-1, , ####[facility] LABCLIA [id number] [place] [address] [place] Creatinine and Glomerular filtration rate.predicted panel (S/P/Bld) 77 mL/min/1.73m??? Normal >=60 [facility] Comment on above: Order Comment: Elvia escobar Type: BLOOD SPECIMENOrdering Facility: [facility] Address: [address] [place] [address] Result Comment: Berenice mated Glomerular Filtration Rate (eGFR) is calculated using the 2020 CKD-EPI creatinine equation. This equation utilizes serum creatinine, sex, and age as parameters. The creatinine assay has traceable calibration to isotope dilution-mass spectrometry. Refer to KDIGO guidelines for clinical interpretation. In patients with unstable renal function, e.g. those with acute kidney injury, the eGFR may not accurately reflect actual GFR. Performed By: #### 2 777-1, , ####[facility] LABCLIA [id number] [place] [address] [place] Glucose [Mass/Vol] 112 mg/dL High 74-[address] [facility] Comment on above: Order Comment: Elvia escobar Type: BLOOD SPECIMENOrdering Facility: [facility] Address: [address] [place] [address] Result Comment: The [place] [employer] (ADA) provides guidance for cutoff values for fasting glucose and random glucose. The ADA defines fasting as no caloric intake for at least 8 hours. Fasting plasma glucose results between 100 to 125 mg/dL indicate increased risk for diabetes (prediabetes).Fasting plasma glucose results greater than or equal to 126 mg/dL meet the criteria for diagnosis of diabetes. In the absence of unequivocal hyperglycemia, results should be confirmed by repeat testing. In a patient with classic symptoms of hyperglycemia or hyperglycemic crisis, random plasma glucose results greater than or equal to 200 mg/dL meet the criteria for diagnosis of diabetes.Reference: Standards of Medical Care in Diabetes 2016, [place] [employer]. Diabetes Care. 2016.39(Suppl 1). Performed By: #### 2 777-1, , ####[facility] LABCLIA [id number] [address] [address] [place] Potassium [Moles/Vol] 3.9 mmol/L Normal 3.7-5.1 [facility] Comment on above: Order Comment: Speci men Type: BLOOD SPECIMENOrdering Facility: [facility] Address: [address] [place] [address] Performed By: #### 2 777-1, , ####[facility] LABCLIA [id number] [address] [address] [place] Protein [Mass/Vol] 4.8 g/dL Low 6.3-8.[address] [facility] Comment on above: Order Comment: Speci men Type: BLOOD SPECIMENOrdering Facility: [facility] Address: [address] [place] [address] Performed By: #### 2 777-1, , ####[facility] LABIA [id number] [address] [address] [place] Sodium [Moles/Vol] 134 mmol/L Low 136-[address] [facility] Comment on above: Order Comment: Speci men Type: BLOOD SPECIMENOrdering Facility: [facility] Address: [address] [place] [address] Performed By: #### 2 777-1, , ####[facility] LABCLIA [id number] [address] [address] [place] Urea nitrogen [Mass/Vol] 26 mg/dL High 7-21 [facility] Comment on above: Order Comment: Speci men Type: BLOOD SPECIMENOrdering Facility: [facility] Address: [address] [place] [address] Performed By: #### 2 777-1, , ####[facility] LABCLIA [id number] [place] [address] [place] HISTORY PHYSICALon 3 HISTORY PHYSICAL Normal [facility] Magnesium SerPl-[facility] of Americaon 07-13 Magnesium [Mass/Vol] 2.2 mg/dL Normal 1.7-2.3 [facility] Comment on above: Order Comment: Speci men Type: BLOOD SPECIMENOrdering Facility: [facility] Address: [address] [place] [address] Performed By: #### 2 777-1, , ####[facility] LABCLIA [id number] [place] [address] [place] Phosphate SerPl-ncon 07-13 Phosphate [Mass/Vol] 2.8 mg/dL Normal 2.7-4.8 [facility] Comment on above: Order Comment: Speci men Type: BLOOD SPECIMENOrdering Facility: [facility] Address: [address] [place] [address] Performed By: #### 2 777-1, , ####[facility] LABCLIA [id number] [place] [address] [place] TYPE + SCREENon 07-13-2023 ABO O Normal [facility] Comment on above: Order Comment: Speci men Type: BLOOD SPECIMENOrdering Facility: [facility] Address: [address] [place] [address] Performed By: #### T SCR ####[facility] BLOOD BANKCLIA [id number] [place] [address] [place] HISTORICAL AB SCR STATUS Negative Normal [facility] Comment on above: Order Comment: Speci men Type: BLOOD SPECIMENOrdering Facility: [facility] Address: [address] [place] [address] Performed By: #### T SCR ####[facility] BLOOD BANKCLIA [id number] [address] [address] [place] Rh Nom (Bld) Positive Normal [facility] [place] Comment on above: Order Comment: Speci men Type: BLOOD SPECIMENOrdering Facility: [facility] Address: [address] [place] [address] Performed By: #### T SCR ####[facility] BLOOD BANKIA [id number] [address] [address] [place] TYPE AND SCREEN EXPIRATION 07/16/2023 23:59 Normal [facility] Comment on above: Order Comment: Speci men Type: BLOOD SPECIMENOrdering Facility: [facility] Address: [address] [place] [address] Performed By: #### T SCR ####[facility] BLOOD BANKIA [id number] [address] [address] [place] CNPNon 07-06-2023 CNPN Normal [facility] AML MRD BY FCon 06-25-2023 AML MRD BY FC View results in Scan talia Documents link when available. Normal [facility] Comment on above: Order Comment: Speci men Type: BONE MARROW SPECIMENOrdering Facility: [facility] Address: [address] [place] [address] Performed By: #### A MLMRD ####[facility] MOLECULAR MICROCLIA [id number] [place] [address] BONE MARROW ANALYSISon 06-25 ADDENDUM 1: [facility] Comment on above: Order Comment: Speci men Type: BONE MARROW SPECIMENOrdering Facility: [facility] Address: [address] [place] [address] Result Comment: Conv entional cytogenetic studies showed a complex female karyotype.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 In addition, the variant of unknown clinical significance was found in DDX41.The flow cytometry based minimal residual disease (MRD) studies performed on the bone marrow aspirate at [facility], [place], [place] are reported to show an abnormal myeloid blast population (6.4% of white cells) and were overall consistent with persistent acute myeloid leukemia by flow cytometry.These results are consistent with persistent acute myeloid leukemia and do not change the previously rendered final diagnosis.See separate scanned reports in [facility] for detailed results.July 17ddendum electronically signed by Mihaela Flowers MD on 07/17/2023 at 10:10 AM Performed By: #### B MRT ####[facility] LABIA [id number] [address] [place] CASE REPORT Normal [facility] Comment on above: Order Comment: Speci men Type: BONE MARROW SPECIMENOrdering Facility: [facility] Address: [address] [place] [address] Result Comment: Bone Marrow Pathology Report Case: [id number] Provider: Miek Hughes MD Collected: 06/25/2023 08:55 AMOrdering Location: [place] [address] Received: 06/25/2023 09:18 AMPathologist: Mihaela Flowers MDSpecimens: A) - BONE MARROW ASPIRATE RIGHT POSTERIOR ILIAC CREST B) - BONE MARROW BIOPSY RIGHT POSTERIOR ILIAC CREST C) - BONE MARROW CLOT RIGHT POSTERIOR ILIAC CREST Performed By: #### B MRT ####[facility] LABIA [id number] [address] [place] DIAGNOSIS COMMENT Normal [facility] Comment on above: Order Comment: Speci men Type: BONE MARROW SPECIMENOrdering Facility: [facility] Address: [address] [place] [address] Result Comment: The patient is a 68-year-old female with history of acute myeloid leukemia with mutated TP53, therapy-related (ICC 2021), status post therapy.Evaluation is limited due to the very suboptimal aspicular and hemodilute aspirate smears. Morphologic review demonstrates a relatively normocellular to mildly hypercellular marrow (~30-40%) showing trilineage hematopoiesis with dysmegakaryopoiesis and left shifted granulopoiesis including increased blasts, estimated to be 7% on manual differential counts and approximately 5-10% on the CD34 immunohistochemical stain. 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 Correlation with the clinical findings and the results of the pending cytogenetic, molecular NGS and the send out flow cytometry based acute myeloid leukemia minimal residual disease (AML MRD) studies is recommended.Parts of this case were also reviewed by Dr.James Hernandez from the hematopathology section at the [facility], and he concurs with the above rendered final diagnosis and interpretation.Laboratory Developed Test (LDT) Disclaimer:Performance characteristics of immunohistochemical, immunofluorescent and chromogenic in-situ hybridization tests have been determined by the performing laboratory within [facility]???s Aurelio Dominguez [facility] [place] [facility] [place] ([facility], [facility], [facility], [facility], [facility], [facility], or [facility]) in a manner consistent with CLIA requirements. One or more of these tests have not been cleared or approved by the FDA. RT-PLMI is regulated under CLIA as qualified to perform high-complexity testing. These tests are used for clinical purposes. They should not be regarded as investigational or for research. Positive and negative controls stain appropriately. Performed By: #### B MRT ####[facility] LABCLIA [id number] [facility] [id number] [place] [address] [place] FINAL DIAGNOSIS Normal [facility] Comment on above: Order Comment: Speci men Type: BONE MARROW SPECIMENOrdering Facility: [facility] Address: [address] [place] [address] Result Comment: A-C. 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).- Cellular marrow (~30-40%) showing trilineage hematopoiesis with dysmegakaryopoiesis.- See comment./ June 26, 2023 Performed By: #### B MRT ####[facility] LABCLIA [id number] [place] [address] [place] FINAL PERFORMING LAB Normal [facility] Comment on above: Order Comment: Speci men Type: BONE MARROW SPECIMENOrdering Facility: [facility] Address: [address] [place] [address] Result Comment: Diag nostic interpretation performed at [facility], [address] [address] CLIA# [id number] Director: Boris Wood M.D. Performed By: #### B MRT ####[facility] LABCLIA [id number] [place] [address] [place] GROSS DESCRIPTION Normal [facility] Comment on above: Order Comment: Speci men Type: BONE MARROW SPECIMENOrdering Facility: [facility] Address: [address] [place] [address] Result Comment: A. B ONE MARROW ASPIRATE RIGHT POSTERIOR ILIAC CRESTReceived are air-dried bone marrow aspirate smears. Submitted for light microscopy.B. BONE MARROW BIOPSY RIGHT POSTERIOR ILIAC CRESTReceived in formalin are two segments of cylindrical tissue aggregating to 2.5 x 0.3 x 0.3 cm, payne to red-brown and of a firm consistency. Totally submitted in formalin in one cassette after decalcification. Bone marrow touch imprints also received. Submitted for light microscopy.C. BONE MARROW CLOT RIGHT POSTERIOR ILIAC CRESTReceived in formalin is a segment of red- brown hemorrhagic material measuring 2.0 x 1.4 x 0.6 cm. Totally submitted in one cassette. Performed By: #### B MRT ####[facility] LABCLIA [id number] [place] [address] [place] MICROSCOPIC DESCRIPTION Normal [facility] Comment on above: Order Comment: Speci men Type: BONE MARROW SPECIMENOrdering Facility: [facility] Address: [address] [place] [address] Result Comment: GENNY PHERAL BLOOD: N0 CBC data or peripheral blood smear available for review.BONE MARROW ASPIRATE: Differential counts performed on the aspicular, hemodilute touch imprint may not be entirely auto claim representative of the true marrow cellularity.Result Normal Range7 % Blasts 0-21 % Promyelocytes 1-530 % Myelos/Metas/Bands/Segs 32-720 % Eosinophils 1-61 % Basophils 0-11 % Monocytes 0-415 % Erythroid precursors 13-3743 % Lymphocytes 7-232 % Plasma cells 0-2 Myeloid/Erythro (1.5-4): 2.6. Cells counted: 300. Iron stain result: Aspicular, hypocellular iron stain smear is inadequate for evaluation of stainable iron and ring sideroblasts. Specimen Quality: Markedly hemodilute, aspicular and hypocellular aspirate smears and touch imprint. Differential count performed on the touch imprint Megakaryocytes: Not seen. Erythropoiesis: Too few erythroid precursors seen to assess morphology and maturation. Granulopoiesis: Left shifted with increased blasts, abnormally granulated and hypogranular myeloid precursors seen. Other: Scattered plasma cells.BONE MARROW BIOPSY: Adequacy: Suboptimal (fragmented, crush and aspiration artifact. Cellularity: Normal , approximately 30-40%. ME ratio: Normal. Hematopoiesis: Trilineage hematopoiesis. Megakaryocytes: Decreased. Megakaryocyte morphology: Very few megakaryocytes are seen showing unremarkable morphology. Lymphoid infiltrate: Very small interstitial lymphoid aggregate is seen predominantly mostly small lymphocytes Bone trabeculae: Bone remodeling changes present in few areas. Other: Scattered macrophages, including pigment laden macrophages and plasma cells present.Immunohistochemical and special stains were performed on sections from the core biopsy (block B1) for further evaluation of the bone marrow. CD34 highlights increased scattered positive blasts, approximately 5-10%. CD61 highlights many positive megakaryocytic cells, including many very small hypolobated forms and micromegkaryoctes, with possible coexpression on some of the CD34 positive cells. Reticulin stain highlights increased reticulin fibrosis, MF-1 (scale 0-3).CLOT SECTION: Marrow particles: Rare small cellular particle is seen. Morphology: Not evaluable.ANCILLARY TESTS: Flow cytometry: In-house flow cytometry not performed. Send out AML MRD studies pending Cytogenetics: Pending. FISH: Not performed. Molecular: Buffy coat stored. Performed By: #### B MRT ####[facility] LABIA [id number] [address] [id number], [place] [address] [place] BONE MARROW CHROMOSOME ANALo n 06-25-2023 CHROMOSOME BM Normal [place] Margie arreola [place] Comment on above: Order Comment: Order ing Facility: [facility] Address: [place] [address] Result Comment: Edel knight Accession Number: [id number]: Yara Hughesologist: Janki Pathology No: [id number] diagnosis: Acute Myeloid Leukemia Not Having AchievedRemissionSpecimen Type: Bone MarrowReceived Date: 06/25/2023Number of cells counted: 10Number of cells analyzed: 10Number of cells karyotyped: 10Banding resolution: <375Banding method: G- bandingDIAGNOSIS: 44,XX,-5,add(7)(q32),-12,-16,+mar[1]/43,idem,nehemiah(1)add(1)(q22)inv(1)(p13q21),add (2)(q37),add(3)(q21),ad d(4)(q12),nehemiah(6)add(6)(p11.2)del(6)(q23q25),-add(7)(q32),add(7)(q11.2),-9,nehemiah(11 )t(1;11)(q21;q23),+mar[ 7]/46,XX[2]INTERPRETATION: Abnormal, female karyotypeCOMMENT: Ten metaphase cells were analyzed from the culturesupplemented with GM-CSF. A mixture of apparently normal cells and anabnormal clone was observed. Two out of the 10 cells analyzed showed a46,XX karyotype or had random chromosomal loss, attributed to cultureartifact. In the remaining eight cells, there were two relatedabnormal clones. One of the abnormal cell was characterized by a lossof one chromosome 5, additional material of unknown origin on the longarm of one chromosome 7 with the breakpoint estimated to be in 7q32,losses of chromosomes 12, 16, and gain of a marker. In seven of theabnormal cells, they were characterized by both numerical andstructural rearrangements. The numerical changes included: losses ofchromosomes 5, 9, 12, 16, and gains of two markers. The structuralchanges included: a derivative chromosome 1 with additional materialof unknown origin on the long arm and a pericentric inversion,additional material of unknown origin on the long arm of onechromosome 2, additional material of unknown origin on the long arm ofone chromosome 3, additional material of unknown origin on the longarm of one chromosome 4, a derivative chromosome 6 with additionalmaterial of unknown origin on the short arm and an interstitialdeletion on the long arm, additional material of unknown origin on thelong arm of one chromosome 7 with the breakpoint estimated to be in7q11.2, a derivative chromosome 11 consisting of an unbalancedtranslocation between the long arms of one chromosome 1 and onechromosome 11.The same abnormal clones were observed in the May 2023 analysis.The presence of these abnormalities in the current analysis isconsistent with persistence or recurrence of disease.Clinical and pathologic correlation is recommended.As reviewed by Jovanny Hooper, PhD, FACMGPerformed by [facility]Pathology and Laboratory Medicine InstituteDivision of Molecular PathologyCytogenetics Lab, [id number] [place], [place] [address]Phone: Toll free: Performed By: #### C [facility] ####[facility] [id number] [place] [address] [place] BRIEF OP NOTon 06-25-2023 BRIEF OP NOT Normal [place] [facility] [place] CNOVSPon 06-25-2023 CNOVSP Normal [facility] CT BIOPSY BONE MARROW (HEMO) on 06-25-2023 CT BIOPSY BONE MARROW (HEMO) Normal [facility] DNA EXTRACTION BONE MARROW ( BUFFY COAT)on 06-25-2023 DNA EXTRACTION BONE MARROW (BUFFY COAT) Normal [facility] Comment on above: Order Comment: Speci men Type: BONE MARROW SPECIMENOrdering Facility: [facility] Address: [address] [place] [address] Result Comment: This specimen was received and successfully processed for future DNA purification should molecular testing be needed. Specimens will be available for 3 years from date of collection.To order testing on this specimen for [facility] patients, please place an [facility] order for DNA and RNA Clinical Testing ([id number]). To order testing for patients outside of the [facility] system, please request DNA and RNA for Clinical Testing, order code [id number].If additional paperwork is required for testing, please send completed forms via secure email to [email or web address]. Performed By: #### N UCBUF ####[facility] LIMSCLIA [id number] [address] [place] FLOW CYTOMETRY FOR LEUKEMIA/ LYMPHOMA (FCLL) PERFORMABLEon 06-25-2023 FLOW CYTOMETRY ORDER STATUS A bone marrow sample was received for potential flow cytometry studies. Following morphologic review, flow cytometric studies will be ordered by the hematopathologist if testing is indicated. Normal [facility] Comment on above: Order Comment: Speci men Type: BONE MARROW SPECIMENOrdering Facility: [facility] Address: [address] [place] [address] Performed By: #### F CLLP ####[facility] LABCLIA [id number] [address] Flow Cytometry Order Status A bone marro w sample was received for potential flow cytometry studies. Following morphologic review, flow cytometric studies will be ordered by the hematopathologist if testing is indicated. [place] [facility] FLT3 ITD HN BONE MARROWon [facility] SIGNOUT PATHOLOGIST [id number] Normal [facility] Comment on above: Order Comment: Elvia escobar Type: BONE MARROW SPECIMENOrdering Facility: [facility] Address: [address] [place] [address] Performed By: #### F 3IM, MYNGSM ####[facility] LIMSCLIA [id number] [address] STATES OF [facility] FLT3 ITD HN PANEL BONE MARROW Normal [facility] Comment on above: Order Comment: Elvia escobar Type: BONE MARROW SPECIMENOrdering Facility: [facility] Address: [address] [place] [address] Result Comment: FLT3 Internal Tandem Duplication (ITD) Mutation TestingLaboratory Accession Number: [id number] Internal Tandem Duplication (ITD) mutation: Not DetectedComment:FLT3/ITD is found in approx. 20-30% of adult patients and in approx.5-12% of infants and children with acute myeloid leukemia (AML).FLT3/ITD are most often associated with a normal karyotype, t(15;17),and t(6;9). FLT3/ITD is associated with leukocytosis and a poorprognosis in both children and adults. In cytogenetically normal AML,FLT3/ITD has been associated with a poor prognosis. FLT3 mutationstatus has been reported to change between diagnosis and relapse; thismay relate to the instability of FLT3 mutations.Methodology:DNA is isolated from the specimen provided. Regions of the QJE0iicvvdlw kinase receptor gene are subjected to the polymerase chainreaction (PCR) using fluorescently labeled forward PCR primers. PCRproducts are analyzed by capillary gel electrophoresis for in- framelength mutations (ITD mutations). This assay can detect ITD mutantalleles which represent approx. 5-10% of the total alleles. The ITDratio is calculated as the area under the curve of the ITD signal tothe area under the curve of the wild type signal.Limitations:Due to the diversity of potential ITD mutations, standardizedcalibration material is not available and calculated ITD peak ratiosmay therefore not be directly comparable across laboratories. As PCRefficiency varies with the size of the insertion mutation, calculatedpeak ratios may not necessarily correlate with percentage of mutantalleles. ITD ratio information should be interpreted with caution, inconjunction with other cytogenetic and molecular findings to assessprognosis within myeloid neoplasms.References:1) Veda MP, Lisbeth P, Tiacci E, et al. Mutational landscapeof AML with normal cytogenetics: biological and clinical implications.Blood Rev.2013;27:13-22.2) Juan KRISHNA, Ros M, Aly ME, et al. Prognostic relevance ofintegrated genetic profiling in acute myeloid leukemia. N Engl J Med.2012 Nov 22;366 (12):1079-89.3) Sandra H, Dee E, Sharon Vaughan, et al. Diagnosis and mangement ofAML in adults: 2017 ELN recommendations from an international expertpanel. Blood 129,424-448 (2017).Disclaimer:This test was developed and its performance characteristics determinedby [facility]'s [facility] LaboratoryMedicine [place] ([facility]-PLTX). It has not been cleared or approved bythe FDA. RT[facility] is regulated under CLIA as certified to perform high-complexity testing. This test is used for clinical purposes. It shouldnot be regarded as investigational or for research.Testing and interpretation performed at [facility], [address] [place] [address]. CLIA Number: [id number] reviewed by Zenia Mae, PhD, HCLD Performed By: #### F 3IM, IVONNE ####[facility] LIMSCLIA [id number] [place] [address] [place] HISTORY PHYSICALon HISTORY PHYSICAL Normal [facility] MYELOID NGS PANEL BONE MARRO Won 06-25-2023 MYELOID NGS PANEL BONE MARROW Normal [facility] Comment on above: Order Comment: Speci men Type: BONE MARROW SPECIMENOrdering Facility: [facility] Address: [address] [place] [address] Result Comment: Myel oid NGS Panel Bone MarrowLaboratory Accession Number: [id number]:Please see linked document and/or separate report for full result whenavailable.As reviewed by Zenia Mae, PhD, HCLD Performed By: #### F 3IM, IVONNE ####[facility] LIMSCLIA [id number] [place] [address] [place] NURSING PROGon 06-25-2023 NURSING PROG Normal [facility] PT EDon 06-25-2023 PT ED Normal [facility] CNPNon 06-22-2023 CNPN Normal [facility] NURSING PROGon 06-20-2023 NURSING PROG Normal [place] [facility] CNPNon 06-14-2023 CNPN Normal [facility] CNCOon 06-08-2023 CNCO Letter Text [facility] CASE MANAGEMon 06-07-2023 CASE MANAGEM Normal [facility] CBC W Auto Differential pane l (Bld)on 06-07-2023 Anisocytosis Ql (Bld) Present Normal [facility] Comment on above: Order Comment: Speci men Type: BLOOD SPECIMENOrdering Facility: [facility] Address: [address] [place] [address] Performed By: #### 5 7021-8 ####[facility] LABCLIA [id number] [place] [address] [place] Basophils (Bld) [#/Vol] 0.00 10*3/uL Normal <0.11 [facility] Comment on above: Order Comment: Speci men Type: BLOOD SPECIMENOrdering Facility: [facility] Address: [address] [place] [address] Performed By: #### 5 7021-8 ####[facility] LABCLIA [id number] [place] [address] [place] Basophils/100 WBC (Bld) 0.0 % Normal [facility] Comment on above: Order Comment: Speci men Type: BLOOD SPECIMENOrdering Facility: [facility] Address: [address] [place] [address] Performed By: #### 5 7021-8 ####[facility] LABCLIA [id number] [place] [address] [place] Dacrocytes LM Ql (Bld) Few Normal Cl [facility] Comment on above: Order Comment: Speci men Type: BLOOD SPECIMENOrdering Facility: [facility] Address: [address] [place] [address] Performed By: #### 5 7021-8 ####[facility] LABCLIA [id number] [place] [address] [place] Differential cell count method Nom (Bld) Manual Normal [facility] Comment on above: Order Comment: Speci men Type: BLOOD SPECIMENOrdering Facility: [facility] Address: [address] [place] [address] Performed By: #### 5 7021-8 ####[facility] LABCLIA [id number] [place] [address] [place] Eosinophils (Bld) [#/Vol] 0.07 10*3/uL Normal <0.46 [facility] Comment on above: Order Comment: Speci men Type: BLOOD SPECIMENOrdering Facility: [facility] Address: [address] [place] [address] Performed By: #### 5 7021-8 ####[facility] LABCLIA [id number] [place] [address] [place] Eosinophils/100 WBC (Bld) 6.0 % Normal [facility] Comment on above: Order Comment: Speci men Type: BLOOD SPECIMENOrdering Facility: [facility] Address: [address] [place] [address] Performed By: #### 5 7021-8 ####[facility] LABCLIA [id number] [place] [address] [place] Erythrocyte distribution wid th (RBC) [Ratio] 18.3 % High 11.5-15.0 [facility] Comment on above: Order Comment: Speci men Type: BLOOD SPECIMENOrdering Facility: [facility] Address: [address] [place] [address] Performed By: #### 5 7021-8 ####[facility] LABCLIA [id number] [place] [address] [place] Hematocrit (Bld) [Volume fraction] 21.4 % Low 3 6.0-46.0 [facility] Comment on above: Order Comment: Speci men Type: BLOOD SPECIMENOrdering Facility: [facility] Address: [address] [place] [address] Performed By: #### 5 7021-8 ####[facility] LABCLIA [id number] [place] [address] [place] Hemoglobin (Bld) [Mass/Vol] 7.3 g/dL Low 11.5-15. 5 [facility] Comment on above: Order Comment: Speci men Type: BLOOD SPECIMENOrdering Facility: [facility] Address: [address] [place] [address] Performed By: #### 5 7021-8 ####[facility] LABCLIA [id number] [place] [address] [place] Lymphocytes (Bld) [#/Vol] 0.96 10*3/uL Low 1.00-4.0 0 [facility] Comment on above: Order Comment: Speci men Type: BLOOD SPECIMENOrdering Facility: [facility] Address: [address] [place] [address] Performed By: #### 5 7021-8 ####[facility] LABCLIA [id number] [place] [address] [place] Lymphocytes/100 WBC (Bld) 82.0 % Normal [facility] Comment on above: Order Comment: Speci men Type: BLOOD SPECIMENOrdering Facility: [facility] Address: [address] [place] [address] Performed By: #### 5 7021-8 ####[facility] LABCLIA [id number] [place] [address] [place] MCH (RBC) [Entitic mass] 32.2 pg Normal 26.0-34.0 [facility] Comment on above: Order Comment: Speci men Type: BLOOD SPECIMENOrdering Facility: [facility] Address: [address] [place] [address] Performed By: #### 5 7021-8 ####[facility] LABCLIA [id number] [place] [address] [place] MCHC (RBC) [Mass/Vol] 34.1 g/dL Normal 30.5-36.0 [facility] Comment on above: Order Comment: Speci men Type: BLOOD SPECIMENOrdering Facility: [facility] Address: [address] [place] [address] Performed By: #### 5 7021-8 ####[facility] LABCLIA [id number] [place] [address] [place] MCV (RBC) [Entitic vol] 94.3 fL Normal 80.0-100.0 C [facility] Comment on above: Order Comment: Speci men Type: BLOOD SPECIMENOrdering Facility: [facility] Address: [address] [place] [address] Performed By: #### 5 7021-8 ####[facility] LABIA [id number] [place] [address] [place] Monocytes (Bld) [#/Vol] 0.00 10*3/uL Normal <0.87 [facility] Comment on above: Order Comment: Speci men Type: BLOOD SPECIMENOrdering Facility: [facility] Address: [address] [place] [address] Performed By: #### 5 7021-8 ####[facility] LABIA [id number] [place] [address] [place] Monocytes/100 WBC (Bld) 0.0 % Normal C [facility] Comment on above: Order Comment: Speci men Type: BLOOD SPECIMENOrdering Facility: [facility] Address: [address] [place] [address] Performed By: #### 5 7021-8 ####[facility] LABIA [id number] [place] [address] [place] Neutrophils (Bld) [#/Vol] 0.14 10*3/uL Low 1.45-7.5 0 [facility] Comment on above: Order Comment: Speci men Type: BLOOD SPECIMENOrdering Facility: [facility] Address: [address] [place] [address] Performed By: #### 5 7021-8 ####[facility] LABCLIA [id number] [place] [address] [place] Neutrophils/100 WBC (Bld) 12.0 % Normal [facility] Comment on above: Order Comment: Speci men Type: BLOOD SPECIMENOrdering Facility: [facility] Address: [address] [place] [address] Performed By: #### 5 7021-8 ####[facility] LABCLIA [id number] [place] [address] [place] Nucleated RBC (Bld) [#/Vol] 10*3/uL Normal <0.01 [facility] Comment on above: Order Comment: Speci men Type: BLOOD SPECIMENOrdering Facility: [facility] Address: [address] [place] [address] Performed By: #### 5 7021-8 ####[facility] LABIA [id number] [place] [address] [place] Nucleated RBC/100 WBC (Bld) [Ratio] 0.0 /100 WBC Normal [facility] Comment on above: Order Comment: Speci men Type: BLOOD SPECIMENOrdering Facility: [facility] Address: [address] [place] [address] Performed By: #### 5 7021-8 ####[facility] LABCLIA [id number] [place] [address] [place] Ovalocytes LM Ql (Bld) Few Normal [facility] Comment on above: Order Comment: Speci men Type: BLOOD SPECIMENOrdering Facility: [facility] Address: [address] [place] [address] Performed By: #### 5 7021-8 ####[facility] LABCLIA [id number] [place] [address] [place] Platelet mean volume (Bld) [Entitic vol] Normal [facility] Comment on above: Order Comment: Speci men Type: BLOOD SPECIMENOrdering Facility: [facility] Address: [address] [place] [address] Result Comment: Unab le to Report. Performed By: #### 5 7021-8 ####[facility] LABCLIA [id number] [place] [address] [place] Platelets (Bld) [#/Vol] 9 10*3/uL Critically low 150-400 [facility] Comment on above: Order Comment: Speci men Type: BLOOD SPECIMENOrdering Facility: [facility] Address: [address] [place] [address] Result Comment: Resu lts checked and verified.No clot detected. Performed By: #### 5 7021-8 ####[facility] LABCLIA [id number] [place] [address] [place] Platelets Estimate (Bld) [#/Vol] Decreased Normal [facility] Comment on above: Order Comment: Speci men Type: BLOOD SPECIMENOrdering Facility: [facility] Address: [address] [place] [address] Performed By: #### 5 7021-8 ####[facility] LABCLIA [id number] [place] [address] [place] Polychromasia LM Ql (Bld) Slight Normal [facility] Comment on above: Order Comment: Speci men Type: BLOOD SPECIMENOrdering Facility: [facility] Address: [address] [place] [address] Performed By: #### 5 7021-8 ####[facility] LABCLIA [id number] [place] [address] [place] RBC (Bld) [#/Vol] 2.27 10*6/uL Low 3.90-5.20 [facility] Comment on above: Order Comment: Speci men Type: BLOOD SPECIMENOrdering Facility: [facility] Address: [address] [place] [address] Performed By: #### 5 7021-8 ####[facility] LABCLIA [id number] [place] [address] [place] RBC FRAGMENTS Few Abnormal None Seen [facility] Comment on above: Order Comment: Speci men Type: BLOOD SPECIMENOrdering Facility: [facility] Address: [address] [place] [address] Performed By: #### 5 7021-8 ####[facility] LABIA [id number] [place] [address] [place] RED CELL MORPH Reviewed: see result s of individual morphologies Normal [facility] Comment on above: Order Comment: Speci men Type: BLOOD SPECIMENOrdering Facility: [facility] Address: [address] [place] [address] Performed By: #### 5 7021-8 ####[facility] [id number] [place] [address] [place] WBC (Bld) [#/Vol] 1.17 10*3/uL Low 3.70-11.00 [facility] Comment on above: Order Comment: Speci men Type: BLOOD SPECIMENOrdering Facility: [facility] Address: [address] [place] [address] Result Comment: No c lot detected. Performed By: #### 5 7021-8 ####[facility] [id number] [place] [address] [place] CNDSon 06-07-2023 CNDS Normal [facility] Comprehensive metabolic 2000 panelon 06-07-2023 Albumin [Mass/Vol] 3.2 g/dL Low 3.9-4.[address] [facility] Comment on above: Order Comment: Speci men Type: BLOOD SPECIMENOrdering Facility: [facility] Address: [address] [place] [address] Performed By: #### 2 4323-8, 16561-8, 3084-1, 2777-1 ####[facility] [id number] [place] [address] [place] ALP [Catalytic activity/Vol] 63 U/L Normal 34-123 [facility] Comment on above: Order Comment: Speci men Type: BLOOD SPECIMENOrdering Facility: [facility] Address: [address] [place] [address] Performed By: #### 2 4323-8, 40016-8, 3084-1, 2777-1 ####[facility] LABCLIA [id number] [place] [address] [place] ALT [Catalytic activity/Vol] 18 U/L Normal 7-38 [facility] Comment on above: Order Comment: Speci men Type: BLOOD SPECIMENOrdering Facility: [facility] Address: [address] [place] [address] Performed By: #### 2 4323-8, 24808-9, 3084-1, 2777-1 ####[facility] LABIA [id number] [place] [address] [place] Anion gap [Moles/Vol] 10 mmol/L Normal 9-18 [facility] Comment on above: Order Comment: Speci men Type: BLOOD SPECIMENOrdering Facility: [facility] Address: [address] [place] [address] Performed By: #### 2 4323-8, 59240-0, 3084-1, 2777-1 ####[facility] LABIA [id number] [place] [address] [place] AST [Catalytic activity/Vol] 15 U/L Normal 13-35 [facility] Comment on above: Order Comment: Speci men Type: BLOOD SPECIMENOrdering Facility: [facility] Address: [address] [place] [address] Performed By: #### 2 4323-8, 57153-2, 3084-1, 2777-1 ####[facility] LABIA [id number] [place] [address] [place] Bilirubin [Mass/Vol] 0.3 mg/dL Normal 0.2-1.3 [facility] Comment on above: Order Comment: Speci men Type: BLOOD SPECIMENOrdering Facility: [facility] Address: [address] [place] [address] Performed By: #### 2 4323-8, 96708-1, 3084-1, 2777-1 ####[facility] LABCLIA [id number] [address] [address] [place] Calcium [Mass/Vol] 8.7 mg/dL Normal 8.5-10.[address] [facility] Comment on above: Order Comment: Speci men Type: BLOOD SPECIMENOrdering Facility: [facility] Address: [address] [place] [address] Performed By: #### 2 4323-8, 35972-0, 3084-1, 2777-1 ####[facility] LABIA [id number] [place] [address] [place] Chloride [Moles/Vol] 110 mmol/L High 97-105 [facility] Comment on above: Order Comment: Speci men Type: BLOOD SPECIMENOrdering Facility: [facility] Address: [address] [place] [address] Performed By: #### 2 4323-8, 50125-7, 3084-1, 2777-1 ####[facility] LABIA [id number] [place] [address] [place] CO2 [Moles/Vol] 21 mmol/L Low 22-30 [facility] Comment on above: Order Comment: Speci men Type: BLOOD SPECIMENOrdering Facility: [facility] Address: [address] [place] [address] Performed By: #### 2 4323-8, 59811-4, 3084-1, 2777-1 ####[facility] LABIA [id number] [place] [address] [place] Creatinine [Mass/Vol] 1.09 mg/dL High 0.58-0.96 [facility] Comment on above: Order Comment: Speci men Type: BLOOD SPECIMENOrdering Facility: [facility] Address: [address] [place] [address] Performed By: #### 2 4323-8, 01421-8, 3084-1, 2777-1 ####[facility] LABIA [id number] [place] [address] [place] Creatinine and Glomerular filtration rate.predicted panel (S/P/Bld) 55 mL/min/1.73m??? Low >=60 [facility] Comment on above: Order Comment: Elvia escobar Type: BLOOD SPECIMENOrdering Facility: [facility] Address: [address] [place] [address] Result Comment: Berenice mated Glomerular Filtration Rate (eGFR) is calculated using the 2020 CKD-EPI creatinine equation. This equation utilizes serum creatinine, sex, and age as parameters. The creatinine assay has traceable calibration to isotope dilution-mass spectrometry. Refer to KDIGO guidelines for clinical interpretation. In patients with unstable renal function, e.g. those with acute kidney injury, the eGFR may not accurately reflect actual GFR. Performed By: #### 2 4323-8, 28252-7, 3084-1, 2777-1 ####[facility] LABIA [id number] [place] [address] [place] Glucose [Mass/Vol] 107 mg/dL High 74-[address] [facility] Comment on above: Order Comment: Elvia escobar Type: BLOOD SPECIMENOrdering Facility: [facility] Address: [address] [place] [address] Result Comment: The [place] [employer] (ADA) provides guidance for cutoff values for fasting glucose and random glucose. The ADA defines fasting as no caloric intake for at least 8 hours. Fasting plasma glucose results between 100 to 125 mg/dL indicate increased risk for diabetes (prediabetes).Fasting plasma glucose results greater than or equal to 126 mg/dL meet the criteria for diagnosis of diabetes. In the absence of unequivocal hyperglycemia, results should be confirmed by repeat testing. In a patient with classic symptoms of hyperglycemia or hyperglycemic crisis, random plasma glucose results greater than or equal to 200 mg/dL meet the criteria for diagnosis of diabetes.Reference: Standards of Medical Care in Diabetes 2016, [place] [employer]. Diabetes Care. 2016.39(Suppl 1). Performed By: #### 2 4323-8, 25363-5, 3084-1, 2777-1 ####[facility] LABCLIA [id number] [address] [address] [place] Potassium [Moles/Vol] 3.8 mmol/L Normal 3.7-5.1 [facility] Comment on above: Order Comment: Speci men Type: BLOOD SPECIMENOrdering Facility: [facility] Address: [address] [place] [address] Performed By: #### 2 4323-8, 13962-8, 3084-1, 277-1 ####[facility] LABIA [id number] [place] [address] [place] Protein [Mass/Vol] 5.4 g/dL Low 6.3-8.[address] [facility] Comment on above: Order Comment: Speci men Type: BLOOD SPECIMENOrdering Facility: [facility] Address: [address] [place] [address] Performed By: #### 2 4323-8, 33447-0, 3084-1, 277-1 ####[facility] LABIA [id number] [place] [id number] [place] Sodium [Moles/Vol] 141 mmol/L Normal 136-[address] [facility] Comment on above: Order Comment: Speci men Type: BLOOD SPECIMENOrdering Facility: [facility] Address: [address] [place] [address] Performed By: #### 2 4323-8, 49488-5, 3084-1, 277-1 ####[facility] LABIA [id number] [place] [id number] [place] Urea nitrogen [Mass/Vol] 14 mg/dL Normal 7-21 [facility] Comment on above: Order Comment: Speci men Type: BLOOD SPECIMENOrdering Facility: [facility] Address: [address] [place] [address] Performed By: #### 2 4323-8, 94044-0, 3084-1, 2776-1 ####[facility] LABCLIA [id number] [address] [address] [place] Magnesium SerPl-mCncon 06-07 Magnesium [Mass/Vol] 2.1 mg/dL Normal 1.7-2.3 [facility] Comment on above: Order Comment: Speci men Type: BLOOD SPECIMENOrdering Facility: [facility] Address: [address] [place] [address] Performed By: #### 2 4323-8, 96225-9, 3083-1, 2776- ####[facility] LABCLIA [id number] [place] [address] [place] Phosphate SerPl-mCncon 06-07 Phosphate [Mass/Vol] 2.5 mg/dL Low 2.7-4.8 [facility] Comment on above: Order Comment: Speci men Type: BLOOD SPECIMENOrdering Facility: [facility] Address: [address] [place] [address] Performed By: #### 2 4323-8, 27266-4, 3083-09, 2776- ####[facility] LABCLIA [id number] [place] [address] [place] SOCIAL WORKon 06-07-2023 SOCIAL WORK Normal [place] [facility] [place] SOCIAL WORK Normal [place] [facility] [place] Urate SerPl-ncon Urate [Mass/Vol] 2.8 mg/dL Normal 2.5-6.6 [facility] Comment on above: Order Comment: Speci men Type: BLOOD SPECIMENOrdering Facility: [facility] Address: [address] [place] [address] Performed By: #### 2 4323-8, 69280-5, 3084-1, 277-1 ####[facility] LABCLIA [id number] [place] [address] [place] CBC W Auto Differential pane l (Bld)on 06-06-2023 Anisocytosis Ql (Bld) Present Normal [facility] Comment on above: Order Comment: Speci men Type: BLOOD SPECIMENOrdering Facility: [facility] Address: [address] [place] [address] Performed By: #### 5 7021-8 ####[facility] LABIA [id number] [place] [address] [place] Basophils (Bld) [#/Vol] 0.00 10*3/uL Normal <0.11 [facility] Comment on above: Order Comment: Speci men Type: BLOOD SPECIMENOrdering Facility: [facility] Address: [address] [place] [address] Performed By: #### 5 7021-8 ####[facility] LABCLIA [id number] [place] [address] [place] Basophils/100 WBC (Bld) 0.0 % Normal [facility] Comment on above: Order Comment: Speci men Type: BLOOD SPECIMENOrdering Facility: [facility] Address: [address] [place] [address] Performed By: #### 5 7021-8 ####[facility] LABIA [id number] [place] [address] [place] Dacrocytes LM Ql (Bld) Few Normal Cl [facility] Comment on above: Order Comment: Speci men Type: BLOOD SPECIMENOrdering Facility: [facility] Address: [address] [place] [address] Performed By: #### 5 7021-8 ####[facility] LABIA [id number] [place] [address] [place] Differential cell count method Nom (Bld) Manual Normal [facility] Comment on above: Order Comment: Speci men Type: BLOOD SPECIMENOrdering Facility: [facility] Address: [address] [place] [address] Performed By: #### 5 7021-8 ####[facility] LABCLIA [id number] [place] [address] [place] Eosinophils (Bld) [#/Vol] 0.00 10*3/uL Normal <0.46 [facility] Comment on above: Order Comment: Speci men Type: BLOOD SPECIMENOrdering Facility: [facility] Address: [address] [place] [address] Performed By: #### 5 7021-8 ####[facility] LABCLIA [id number] [place] [address] [place] Eosinophils/100 WBC (Bld) 0.4 % Normal [facility] Comment on above: Order Comment: Speci men Type: BLOOD SPECIMENOrdering Facility: [facility] Address: [address] [place] [address] Performed By: #### 5 7021-8 ####[facility] LABIA [id number] [place] [address] [place] Erythrocyte distribution wid th (RBC) [Ratio] 18.8 % High 11.5-15.0 [facility] Comment on above: Order Comment: Speci men Type: BLOOD SPECIMENOrdering Facility: [facility] Address: [address] [place] [address] Performed By: #### 5 7021-8 ####[facility] LABIA [id number] [place] [address] [place] Hematocrit (Bld) [Volume fraction] 28.5 % Low 3 6.0-46.0 [facility] Comment on above: Order Comment: Speci men Type: BLOOD SPECIMENOrdering Facility: [facility] Address: [address] [place] [address] Performed By: #### 5 7021-8 ####[facility] LABCLIA [id number] [id number] [address] [place] Hemoglobin (Bld) [Mass/Vol] 9.6 g/dL Low 11.5-15. 5 [facility] Comment on above: Order Comment: Speci men Type: BLOOD SPECIMENOrdering Facility: [facility] Address: [address] [place] [address] Performed By: #### 5 7021-8 ####[facility] LABCLIA [id number] [place] [address] [place] Lymphocytes (Bld) [#/Vol] 0.86 10*3/uL Low 1.00-4.0 0 [facility] Comment on above: Order Comment: Speci men Type: BLOOD SPECIMENOrdering Facility: [facility] Address: [address] [place] [address] Performed By: #### 5 7021-8 ####[facility] LABCLIA [id number] [place] [address] [place] Lymphocytes/100 WBC (Bld) 91.2 % Normal [facility] Comment on above: Order Comment: Speci men Type: BLOOD SPECIMENOrdering Facility: [facility] Address: [address] [place] [address] Performed By: #### 5 7021-8 ####[facility] LABCLIA [id number] [place] [address] [place] MCH (RBC) [Entitic mass] 32.0 pg Normal 26.0-34.0 [facility] Comment on above: Order Comment: Speci men Type: BLOOD SPECIMENOrdering Facility: [facility] Address: [address] [place] [address] Performed By: #### 5 7021-8 ####[facility] LABCLIA [id number] [place] [address] [place] MCHC (RBC) [Mass/Vol] 33.7 g/dL Normal 30.5-36.0 [facility] Comment on above: Order Comment: Speci men Type: BLOOD SPECIMENOrdering Facility: [facility] Address: [address] [place] [address] Performed By: #### 5 7021-8 ####[facility] LABIA [id number] [place] [address] [place] MCV (RBC) [Entitic vol] 95.0 fL Normal 80.0-100.0 C [facility] Comment on above: Order Comment: Speci men Type: BLOOD SPECIMENOrdering Facility: [facility] Address: [address] [place] [address] Performed By: #### 5 7021-8 ####[facility] LABIA [id number] [place] [address] [place] Monocytes (Bld) [#/Vol] 0.00 10*3/uL Normal <0.87 [facility] Comment on above: Order Comment: Speci men Type: BLOOD SPECIMENOrdering Facility: [facility] Address: [address] [place] [address] Performed By: #### 5 7021-8 ####[facility] LABIA [id number] [place] [address] [place] Monocytes/100 WBC (Bld) 0.0 % Normal C [facility] Comment on above: Order Comment: Speci men Type: BLOOD SPECIMENOrdering Facility: [facility] Address: [address] [place] [address] Performed By: #### 5 7021-8 ####[facility] LABCLIA [id number] [place] [address] [place] Neutrophils (Bld) [#/Vol] 0.08 10*3/uL Low 1.45-7.5 0 [facility] Comment on above: Order Comment: Speci men Type: BLOOD SPECIMENOrdering Facility: [facility] Address: [address] [place] [address] Performed By: #### 5 7021-8 ####[facility] LABCLIA [id number] [place] [address] [place] Neutrophils/100 WBC (Bld) 8.4 % Normal [facility] Comment on above: Order Comment: Speci men Type: BLOOD SPECIMENOrdering Facility: [facility] Address: [address] [place] [address] Performed By: #### 5 7021-8 ####[facility] LABCLIA [id number] [place] [address] [place] Nucleated RBC (Bld) [#/Vol] 10*3/uL Normal <0.01 [facility] Comment on above: Order Comment: Speci men Type: BLOOD SPECIMENOrdering Facility: [facility] Address: [address] [place] [address] Performed By: #### 5 7021-8 ####[facility] LABCLIA [id number] [place] [address] [place] Nucleated RBC/100 WBC (Bld) [Ratio] 0.0 /100 WBC Normal [facility] Comment on above: Order Comment: Speci men Type: BLOOD SPECIMENOrdering Facility: [facility] Address: [address] [place] [address] Performed By: #### 5 7021-8 ####[facility] LABCLIA [id number] [place] [address] [place] Ovalocytes LM Ql (Bld) Few Normal Cl [facility] Comment on above: Order Comment: Speci men Type: BLOOD SPECIMENOrdering Facility: [facility] Address: [address] [place] [address] Performed By: #### 5 7021-8 ####[facility] LABCLIA [id number] [place] [address] [place] Platelet mean volume (Bld) [Entitic vol] Normal [facility] Comment on above: Order Comment: Speci men Type: BLOOD SPECIMENOrdering Facility: [facility] Address: [address] [place] [address] Result Comment: Unab le to Report. Performed By: #### 5 7021-8 ####[facility] LABCLIA [id number] [place] [address] [place] Platelets (Bld) [#/Vol] 12 10*3/uL Low 150-400 C [facility] Comment on above: Order Comment: Speci men Type: BLOOD SPECIMENOrdering Facility: [facility] Address: [address] [place] [address] Result Comment: Resu lts checked and verified.No clot detected. Performed By: #### 5 7021-8 ####[facility] LABCLIA [id number] [place] [address] [place] Platelets Estimate (Bld) [#/Vol] Decreased Normal [facility] Comment on above: Order Comment: Speci men Type: BLOOD SPECIMENOrdering Facility: [facility] Address: [address] [place] [address] Performed By: #### 5 7021-8 ####[facility] LABIA [id number] [place] [address] [place] RBC (Bld) [#/Vol] 3.00 10*6/uL Low 3.90-5.20 [facility] Comment on above: Order Comment: Speci men Type: BLOOD SPECIMENOrdering Facility: [facility] Address: [address] [place] [address] Performed By: #### 5 7021-8 ####[facility] LABCLIA [id number] [place] [id number] [place] RBC FRAGMENTS Few Abnormal None Seen [facility] Comment on above: Order Comment: Speci men Type: BLOOD SPECIMENOrdering Facility: [facility] Address: [address] [place] [address] Performed By: #### 5 7021-8 ####[facility] LABCLIA [id number] [place] [address] [place] RED CELL MORPH Reviewed: see result s of individual morphologies Normal [facility] Comment on above: Order Comment: Speci men Type: BLOOD SPECIMENOrdering Facility: [facility] Address: [address] [place] [address] Performed By: #### 5 7021-8 ####[facility] LABCLIA [id number] [place] [address] [place] WBC (Bld) [#/Vol] 0.94 10*3/uL Low 3.70-11.00 [facility] Comment on above: Order Comment: Speci men Type: BLOOD SPECIMENOrdering Facility: [facility] Address: [address] [place] [address] Result Comment: No c lot detected. Performed By: #### 5 7021-8 ####[facility] LABCLIA [id number] [place] [address] [place] CBC panel Auto (Bld)on 06-06 Erythrocyte distribution wid th (RBC) [Ratio] 18.6 % High 11.5-15.0 [facility] Comment on above: Order Comment: Speci men Type: BLOOD SPECIMENOrdering Facility: [facility] Address: [address] [place] [address] Performed By: #### 5 8410-2 ####[facility] LABCLIA [id number] [place] [address] [place] Hematocrit (Bld) [Volume fraction] 21.7 % Low 3 6.0-46.0 [facility] Comment on above: Order Comment: Speci men Type: BLOOD SPECIMENOrdering Facility: [facility] Address: [address] [place] [address] Performed By: #### 5 8410-2 ####[facility] LABCLIA [id number] [place] [address] [place] Hemoglobin (Bld) [Mass/Vol] 7.3 g/dL Low 11.5-15. 5 [facility] Comment on above: Order Comment: Speci men Type: BLOOD SPECIMENOrdering Facility: [facility] Address: [address] [place] [address] Performed By: #### 5 8410-2 ####[facility] LABIA [id number] [address] [place] MCH (RBC) [Entitic mass] 32.2 pg Normal 26.0-34.0 [facility] Comment on above: Order Comment: Speci men Type: BLOOD SPECIMENOrdering Facility: [facility] Address: [address] [place] [address] Performed By: #### 5 8410-2 ####[facility] LABIA [id number] [address] [place] MCHC (RBC) [Mass/Vol] 33.6 g/dL Normal 30.5-36.0 [facility] Comment on above: Order Comment: Speci men Type: BLOOD SPECIMENOrdering Facility: [facility] Address: [address] [place], [place] [address] Performed By: #### 5 8410-2 ####[facility] LABIA [id number] [address] [place] MCV (RBC) [Entitic vol] 95.6 fL Normal 80.0-100.0 C [facility] Comment on above: Order Comment: Speci men Type: BLOOD SPECIMENOrdering Facility: [facility] Address: [address] Performed By: #### 5 8410-2 ####[facility] LABIA [id number] [address] [place] Nucleated RBC (Bld) [#/Vol] 0.02 10*3/uL High <0.01 [facility] Comment on above: Order Comment: Speci men Type: BLOOD SPECIMENOrdering Facility: [facility] Address: [address] Performed By: #### 5 8410-2 ####[facility] LABIA [id number] [place] [address] [place] Platelet mean volume (Bld) [Entitic vol] Normal [facility] Comment on above: Order Comment: Speci men Type: BLOOD SPECIMENOrdering Facility: [facility] Address: [address] [place] [address] Result Comment: Unab le to Report. Performed By: #### 5 8410-2 ####[facility] LABIA [id number] [place] [address] [place] Platelets (Bld) [#/Vol] 14 10*3/uL Low 150-400 C [facility] Comment on above: Order Comment: Speci men Type: BLOOD SPECIMENOrdering Facility: [facility] Address: [address] [place] [address] Result Comment: Resu lts checked and verified.No clot detected. Performed By: #### 5 8410-2 ####[facility] LABIA [id number] [place] [address] [place] RBC (Bld) [#/Vol] 2.27 10*6/uL Low 3.90-5.20 [facility] Comment on above: Order Comment: Speci men Type: BLOOD SPECIMENOrdering Facility: [facility] Address: [address] [place], [place] [address] Performed By: #### 5 8410-2 ####[facility] [id number] [place] [address] [place] WBC (Bld) [#/Vol] 1.17 10*3/uL Low 3.70-11.00 [facility] Comment on above: Order Comment: Speci men Type: BLOOD SPECIMENOrdering Facility: [facility] Address: [address] [place] [address] Result Comment: No c lot detected. Performed By: #### 5 8410-2 ####[facility] LABIA [id number] [place] [address] [place] Comprehensive metabolic 2000 panelon 06-06-2023 Albumin [Mass/Vol] 3.6 g/dL Low 3.9-4.[address] [facility] Comment on above: Order Comment: Speci men Type: BLOOD SPECIMENOrdering Facility: [facility] Address: [address] [place] [address] Performed By: #### 3 084-1, 2777-1, 34346-6, 99576-0 ####[facility] LABIA [id number] [place] [address] [place] ALP [Catalytic activity/Vol] 59 U/L Normal 34-123 [facility] Comment on above: Order Comment: Speci men Type: BLOOD SPECIMENOrdering Facility: [facility] Address: [address] [place] [address] Performed By: #### 3 084-1, 2777-1, 63599-8, 67881-5 ####[facility] [id number] [address] [place] ALT [Catalytic activity/Vol] 21 U/L Normal 7-38 [facility] Comment on above: Order Comment: Speci men Type: BLOOD SPECIMENOrdering Facility: [facility] Address: [address] [place] [address] Performed By: #### 3 084-1, 2777-1, 22684-2, 50798-4 ####[facility] LABIA [id number] [address] [place] Anion gap [Moles/Vol] 11 mmol/L Normal 9-18 [facility] Comment on above: Order Comment: Speci men Type: BLOOD SPECIMENOrdering Facility: [facility] Address: [address] [place] [address] Performed By: #### 3 084-1, 2777-1, 63024-6, 44571-2 ####[facility] LABCLIA [id number] [place] [address] [place] AST [Catalytic activity/Vol] 15 U/L Normal 13-35 [facility] Comment on above: Order Comment: Speci men Type: BLOOD SPECIMENOrdering Facility: [facility] Address: [address] [place], [place] [address] Performed By: #### 3 084-1, 2777-1, 64825-1, 63404-8 ####[facility] LABIA [id number] [place] [address] [place] Bilirubin [Mass/Vol] 0.4 mg/dL Normal 0.2-1.3 [facility] Comment on above: Order Comment: Speci men Type: BLOOD SPECIMENOrdering Facility: [facility] Address: [address] [place], [place] [address] Performed By: #### 3 084-1, 2777-1, 49932-5, 71373-8 ####[facility] LABIA [id number] [place] [address] [place] Calcium [Mass/Vol] 8.8 mg/dL Normal 8.5-10.[address] [facility] Comment on above: Order Comment: Speci men Type: BLOOD SPECIMENOrdering Facility: [facility] Address: [address] [place] [address] Performed By: #### 3 084-1, 2777-1, 89006-9, 82138-7 ####[facility] [id number] [place] [address] [place] Chloride [Moles/Vol] 108 mmol/L High 97-105 [facility] Comment on above: Order Comment: Speci men Type: BLOOD SPECIMENOrdering Facility: [facility] Address: [address] Performed By: #### 3 084-1, 2777-1, , 85108-4 ####[facility] [id number] [place] [address] [place] CO2 [Moles/Vol] 21 mmol/L Low 22-30 [facility] Comment on above: Order Comment: Speci men Type: BLOOD SPECIMENOrdering Facility: [facility] Address: [address] [place] [address] Performed By: #### 3 084-1, 2777-1, , ####[facility] [id number] [address] [place] Creatinine [Mass/Vol] 1.06 mg/dL High 0.58-0.96 [facility] Comment on above: Order Comment: Speci men Type: BLOOD SPECIMENOrdering Facility: [facility] Address: [address] [place] [address] Performed By: #### 3 084-1, 2777-, , ####[facility] [id number] [address] [place] Creatinine and Glomerular filtration rate.predicted panel (S/P/Bld) 57 mL/min/1.73m??? Low >=60 [facility] Comment on above: Order Comment: Speci men Type: BLOOD SPECIMENOrdering Facility: [facility] Address: [address] [place] [address] Result Comment: Berenice mated Glomerular Filtration Rate (eGFR) is calculated using the 2020 CKD-EPI creatinine equation. This equation utilizes serum creatinine, sex, and age as parameters. The creatinine assay has traceable calibration to isotope dilution-mass spectrometry. Refer to KDIGO guidelines for clinical interpretation. In patients with unstable renal function, e.g. those with acute kidney injury, the eGFR may not accurately reflect actual GFR. Performed By: #### 3 084-1, 2776-1, , ####[facility] LABCLIA [id number] [place] [id number] [place] Glucose [Mass/Vol] 107 mg/dL High 74-[address] [facility] Comment on above: Order Comment: Speci men Type: BLOOD SPECIMENOrdering Facility: [facility] Address: [address] [place], [place] [address] Result Comment: The [place] [employer] (ADA) provides guidance for cutoff values for fasting glucose and random glucose. The ADA defines fasting as no caloric intake for at least 8 hours. Fasting plasma glucose results between 100 to 125 mg/dL indicate increased risk for diabetes (prediabetes).Fasting plasma glucose results greater than or equal to 126 mg/dL meet the criteria for diagnosis of diabetes. In the absence of unequivocal hyperglycemia, results should be confirmed by repeat testing. In a patient with classic symptoms of hyperglycemia or hyperglycemic crisis, random plasma glucose results greater than or equal to 200 mg/dL meet the criteria for diagnosis of diabetes.Reference: Standards of Medical Care in Diabetes 2016, [place] [employer]. Diabetes Care. 2016.39(Suppl 1). Performed By: #### 3 084-1, 2777-, , ####[facility] LABCLIA [id number] [place] [id number] [place] Potassium [Moles/Vol] 3.4 mmol/L Low 3.7-5.1 [facility] Comment on above: Order Comment: Speci men Type: BLOOD SPECIMENOrdering Facility: [facility] Address: [address] [place] [phone] Performed By: #### 3 084-1, 2777-, , ####[facility] LABIA [id number] [place] [id number] [place] Protein [Mass/Vol] 5.6 g/dL Low 6.3-8.[address] [facility] Comment on above: Order Comment: Speci men Type: BLOOD SPECIMENOrdering Facility: [facility] Address: [address] [place] [address] Performed By: #### 3 084-1, 277-1, , ####[facility] LABCLIA [id number] [place] [address] [place] Sodium [Moles/Vol] 140 mmol/L Normal 136-[address] [facility] Comment on above: Order Comment: Speci men Type: BLOOD SPECIMENOrdering Facility: [facility] Address: [address] [place] [address] Performed By: #### 3 084-1, 277-, , ####[facility] LABCLIA [id number] [place] [address] [place] Urea nitrogen [Mass/Vol] 16 mg/dL Normal 7-21 [facility] Comment on above: Order Comment: Speci men Type: BLOOD SPECIMENOrdering Facility: [facility] Address: [address] [place] [address] Performed By: #### 3 084-1, 27703-03, , ####[facility] LABCLIA [id number] [place] [address] [place] Magnesium SerPl-mCncon 06-06 Magnesium [Mass/Vol] 2.0 mg/dL Normal 1.7-2.3 [facility] Comment on above: Order Comment: Speci men Type: BLOOD SPECIMENOrdering Facility: [facility] Address: [address] Performed By: #### 3 084-1, 2776-09, , ####[facility] LABCLIA [id number] [place] [address] [place] Phosphate SerPl-mCncon 06-06 Phosphate [Mass/Vol] 2.8 mg/dL Normal 2.7-4.8 [facility] Comment on above: Order Comment: Speci men Type: BLOOD SPECIMENOrdering Facility: [facility] Address: [address] [place] [address] Performed By: #### 3 084-1, 2777-1, 84371-6, 85944-7 ####[facility] LABCLIA [id number] [place] [address] [place] TYPE + SCREENon 06-06-2023 ABO O Normal [facility] Comment on above: Order Comment: Speci men Type: BLOOD SPECIMENOrdering Facility: [facility] Address: [address] [place] [address] Performed By: #### T SCR ####[facility] BLO[facility] BANKCLIA [id number] [place] [address] [place] HISTORICAL AB SCR STATUS Negative Normal [facility] Comment on above: Order Comment: Speci men Type: BLOOD SPECIMENOrdering Facility: [facility] Address: [address] [place] [address] Performed By: #### T SCR ####[facility] BLOOD BANKCLIA [id number] [place] [address] [place] Rh Nom (Bld) Positive Normal [facility] Comment on above: Order Comment: Speci men Type: BLOOD SPECIMENOrdering Facility: [facility] Address: [address] [place], [place] [address] Performed By: #### T SCR ####[facility] BLOOD BANKCLIA [id number] [place] [address] [place] TYPE AND SCREEN EXPIRATION 06/09/2023 23:59 Normal [facility] Comment on above: Order Comment: Speci men Type: BLOOD SPECIMENOrdering Facility: [facility] Address: [address] [place] [address] Performed By: #### T SCR ####[facility] BLOOD BANKCLIA [id number] [address] [place] Urate SerPl-mCncon Urate [Mass/Vol] 2.9 mg/dL Normal 2.5-6.6 [facility] Comment on above: Order Comment: Speci men Type: BLOOD SPECIMENOrdering Facility: [facility] Address: [address] [place] [address] Performed By: #### 3 084-1, 2777-1, 52255-2, 00985-5 ####[facility] LABCLIA [id number] [place] [address] [place] CBC W Auto Differential pane l (Bld)on 06-05-2023 Anisocytosis Ql (Bld) Present Normal [facility] Comment on above: Order Comment: Speci men Type: BLOOD SPECIMENOrdering Facility: [facility] Address: [address] [place], [place] [address] Performed By: #### 5 7021-8 ####[facility] LABCLIA [id number] [place] [address] [place] Basophils (Bld) [#/Vol] 0.00 10*3/uL Normal <0.11 [facility] Comment on above: Order Comment: Speci men Type: BLOOD SPECIMENOrdering Facility: [facility] Address: [address] [place], [place] [address] Performed By: #### 5 7021-8 ####[facility] LABCLIA [id number] [address] [place] Basophils/100 WBC (Bld) 0.0 % Normal [facility] Comment on above: Order Comment: Speci men Type: BLOOD SPECIMENOrdering Facility: [facility] Address: [address] Performed By: #### 5 7021-8 ####[facility] LABCLIA [id number] [place] [id number] [place] Dacrocytes LM Ql (Bld) Few Normal Cl [facility] Comment on above: Order Comment: Speci men Type: BLOOD SPECIMENOrdering Facility: [facility] Address: [address] [place] [address] Performed By: #### 5 7021-8 ####[facility] LABCLIA [id number] [place] [address] [place] Differential cell count method Nom (Bld) Manual Normal [facility] Comment on above: Order Comment: Speci men Type: BLOOD SPECIMENOrdering Facility: [facility] Address: [address] [place] [address] Performed By: #### 5 7021-8 ####[facility] LABCLIA [id number] [place] [address] [place] Eosinophils (Bld) [#/Vol] 0.02 10*3/uL Normal <0.46 [facility] Comment on above: Order Comment: Speci men Type: BLOOD SPECIMENOrdering Facility: [facility] Address: [address] [place] [address] Performed By: #### 5 7021-8 ####[facility] LABCLIA [id number] [address] [place] Eosinophils/100 WBC (Bld) 1.7 % Normal [facility] Comment on above: Order Comment: Speci men Type: BLOOD SPECIMENOrdering Facility: [facility] Address: [address] Performed By: #### 5 7021-8 ####[facility] LABIA [id number] [place] [address] [place] Erythrocyte distribution wid th (RBC) [Ratio] 19.0 % High 11.5-15.0 [facility] Comment on above: Order Comment: Speci men Type: BLOOD SPECIMENOrdering Facility: [facility] Address: [address] [place], [place] [address] Performed By: #### 5 7021-8 ####[facility] LABCLIA [id number] [place] [address] [place] Hematocrit (Bld) [Volume fraction] 21.7 % Low 3 6.0-46.0 [facility] Comment on above: Order Comment: Speci men Type: BLOOD SPECIMENOrdering Facility: [facility] Address: [address] Performed By: #### 5 7021-8 ####[facility] LABIA [id number] [place] [address] [place] Hemoglobin (Bld) [Mass/Vol] 7.4 g/dL Low 11.5-15. 5 [facility] Comment on above: Order Comment: Speci men Type: BLOOD SPECIMENOrdering Facility: [facility] Address: [address] Performed By: #### 5 7021-8 ####[facility] LABIA [id number] [place] [address] [place] Lymphocytes (Bld) [#/Vol] 1.09 10*3/uL Normal 1.00-4.0 0 [facility] Comment on above: Order Comment: Speci men Type: BLOOD SPECIMENOrdering Facility: [facility] Address: [address] [place] [address] Performed By: #### 5 7021-8 ####[facility] LABIA [id number] [place] [address] [place] Lymphocytes/100 WBC (Bld) 85.2 % Normal [facility] Comment on above: Order Comment: Speci men Type: BLOOD SPECIMENOrdering Facility: [facility] Address: [address] Performed By: #### 5 7021-8 ####[facility] LABCLIA [id number] [address] MCH (RBC) [Entitic mass] 32.2 pg Normal 26.0-34.0 [facility] Comment on above: Order Comment: Speci men Type: BLOOD SPECIMENOrdering Facility: [facility] Address: [address] [place] [address] Performed By: #### 5 7021-8 ####[facility] LABCLIA [id number] [address] [place] OF [facility] MCHC (RBC) [Mass/Vol] 34.1 g/dL Normal 30.5-36.0 [facility] Comment on above: Order Comment: Speci men Type: BLOOD SPECIMENOrdering Facility: [facility] Address: [address] [place] [address] Performed By: #### 5 7021-8 ####[facility] LABCLIA [id number] [place] [address] [place] MCV (RBC) [Entitic vol] 94.3 fL Normal 80.0-100.0 C [facility] Comment on above: Order Comment: Speci men Type: BLOOD SPECIMENOrdering Facility: [facility] Address: [address] [place] [address] Performed By: #### 5 7021-8 ####[facility] LABCLIA [id number] [place] [address] [place] Monocytes (Bld) [#/Vol] 0.01 10*3/uL Normal <0.87 [facility] Comment on above: Order Comment: Speci men Type: BLOOD SPECIMENOrdering Facility: [facility] Address: [address] [place], [place] [address] Performed By: #### 5 7021-8 ####[facility] LABCLIA [id number] [address] [place] Monocytes/100 WBC (Bld) 0.9 % Normal C [facility] Comment on above: Order Comment: Speci men Type: BLOOD SPECIMENOrdering Facility: [facility] Address: [address] Performed By: #### 5 7021-8 ####[facility] LABCLIA [id number] [place] [address] [place] Neutrophils (Bld) [#/Vol] 0.16 10*3/uL Low 1.45-7.5 0 [facility] Comment on above: Order Comment: Speci men Type: BLOOD SPECIMENOrdering Facility: [facility] Address: [address] Performed By: #### 5 7021-8 ####[facility] LABCLIA [id number] [place] [address] [place] Neutrophils/100 WBC (Bld) 12.2 % Normal [facility] Comment on above: Order Comment: Speci men Type: BLOOD SPECIMENOrdering Facility: [facility] Address: [address] Performed By: #### 5 7021-8 ####[facility] LABIA [id number] [place] [address] [place] Nucleated RBC (Bld) [#/Vol] 0.01 10*3/uL High <0.01 [facility] Comment on above: Order Comment: Speci men Type: BLOOD SPECIMENOrdering Facility: [facility] Address: [address] Performed By: #### 5 7021-8 ####[facility] LABCLIA [id number] [place] [address] [place] Nucleated RBC/100 WBC (Bld) [Ratio] 0.9 /100 WBC Normal [facility] Comment on above: Order Comment: Speci men Type: BLOOD SPECIMENOrdering Facility: [facility] Address: [address] Performed By: #### 5 7021-8 ####[facility] LABCLIA [id number] [place] [address] [place] Ovalocytes LM Ql (Bld) Few Normal Cl [facility] Comment on above: Order Comment: Speci men Type: BLOOD SPECIMENOrdering Facility: [facility] Address: [address] [place] [address] Performed By: #### 5 7021-8 ####[facility] LABIA [id number] [place] [address] [place] Platelet mean volume (Bld) [Entitic vol] Normal [facility] Comment on above: Order Comment: Speci men Type: BLOOD SPECIMENOrdering Facility: [facility] Address: [address] [place] [address] Result Comment: Unab le to Report. Performed By: #### 5 7021-8 ####[facility] [id number] [place] [address] [place] Platelets (Bld) [#/Vol] 7 10*3/uL Critically low 150-400 [facility] Comment on above: Order Comment: Speci men Type: BLOOD SPECIMENOrdering Facility: [facility] Address: [address] [place], [place] [address] Result Comment: Plat elet count confirmed by manual review of peripheral blood smear. No clot detected.Results checked and verified. Performed By: #### 5 7021-8 ####[facility] LABIA [id number] [place] [address] [place] Platelets Estimate (Bld) [#/Vol] Adequate Normal [facility] Comment on above: Order Comment: Speci men Type: BLOOD SPECIMENOrdering Facility: [facility] Address: [address] [place], [place] [address] Performed By: #### 5 7021-8 ####[facility] LABIA [id number] [place] [address] [place] RBC (Bld) [#/Vol] 2.30 10*6/uL Low 3.90-5.20 [facility] Comment on above: Order Comment: Speci men Type: BLOOD SPECIMENOrdering Facility: [facility] Address: [address] [place] [address] Performed By: #### 5 7021-8 ####[facility] LABCLIA [id number] [place] [address] [place] RED CELL MORPH Reviewed: see result s of individual morphologies Normal [facility] Comment on above: Order Comment: Speci men Type: BLOOD SPECIMENOrdering Facility: [facility] Address: [address] [place] [address] Performed By: #### 5 7021-8 ####[facility] LABCLIA [id number] [place] [address] [place] WBC (Bld) [#/Vol] 1.28 10*3/uL Low 3.70-11.00 [facility] Comment on above: Order Comment: Speci men Type: BLOOD SPECIMENOrdering Facility: [facility] Address: [address] [place] [address] Result Comment: No c lot detected. Performed By: #### 5 7021-8 ####[facility] LABIA [id number] [place] [address] [place] Comprehensive metabolic 2000 panelon 06-05-2023 Albumin [Mass/Vol] 3.3 g/dL Low 3.9-4.[address] [facility] Comment on above: Order Comment: Speci men Type: BLOOD SPECIMENOrdering Facility: [facility] Address: [address] [place] [address] Performed By: #### 1 9123-9, 69936-0, 2777-1, 3084-1 ####[facility] LABCLIA [id number] [place] [address] [place] ALP [Catalytic activity/Vol] 51 U/L Normal 34-123 [facility] Comment on above: Order Comment: Speci men Type: BLOOD SPECIMENOrdering Facility: [facility] Address: [address] [place] [address] Performed By: #### 1 9123-9, 65798-1, 2777-1, 3084-1 ####[facility] LABCLIA [id number] [address] STATES OF [facility] ALT [Catalytic activity/Vol] 19 U/L Normal 7-38 [facility] Comment on above: Order Comment: Speci men Type: BLOOD SPECIMENOrdering Facility: [facility] Address: [address] [place] [address] Performed By: #### 1 9123-9, 45464-0, 7-1, 3084-1 ####[facility] LABCLIA [id number] [place] [address] [place] Anion gap [Moles/Vol] 11 mmol/L Normal 9-18 [facility] Comment on above: Order Comment: Speci men Type: BLOOD SPECIMENOrdering Facility: [facility] Address: [address] [place], [place] [address] Performed By: #### 1 9123-9, 40898-3, 7-1, 3084-1 ####[facility] LABCLIA [id number] [address] [place] AST [Catalytic activity/Vol] 21 U/L Normal 13-35 [facility] Comment on above: Order Comment: Speci men Type: BLOOD SPECIMENOrdering Facility: [facility] Address: [address] [place], [place] [address] Performed By: #### 1 9123-9, 24772-4, 2777-1, 3084-1 ####[facility] LABCLIA [id number] [place] [address] [place] Bilirubin [Mass/Vol] 0.4 mg/dL Normal 0.2-1.3 [facility] Comment on above: Order Comment: Speci men Type: BLOOD SPECIMENOrdering Facility: [facility] Address: [address] [place] [address] Performed By: #### 1 9123-9, 21739-6, 2777-1, 3084-1 ####[facility] LABCLIA [id number] [place] [address] [place] Calcium [Mass/Vol] 8.7 mg/dL Normal 8.5-10.[address] [facility] Comment on above: Order Comment: Speci men Type: BLOOD SPECIMENOrdering Facility: [facility] Address: [address] [place] [address] Performed By: #### 1 9123-9, 49035-0, 7-1, 3084-1 ####[facility] LABCLIA [id number] [place] [address] [place] Chloride [Moles/Vol] 108 mmol/L High 97-105 [facility] Comment on above: Order Comment: Speci men Type: BLOOD SPECIMENOrdering Facility: [facility] Address: [address] [place] [address] Performed By: #### 1 9123-9, 22155-1, 2777-1, 3084-1 ####[facility] LABCLIA [id number] [place] [address] [place] CO2 [Moles/Vol] 22 mmol/L Normal 22-30 [facility] Comment on above: Order Comment: Speci men Type: BLOOD SPECIMENOrdering Facility: [facility] Address: [address] [place], [place] [address] Performed By: #### 1 9123-9, 09201-4, 2777-1, 3084-1 ####[facility] LABCLIA [id number] [place] [address] [place] Creatinine [Mass/Vol] 1.06 mg/dL High 0.58-0.96 [facility] Comment on above: Order Comment: Elvia escobar Type: BLOOD SPECIMENOrdering Facility: [facility] Address: [address] [id number] Performed By: #### 1 9123-9, 29975-0, 7-1, 3084-1 ####[facility] LABIA [id number] [place] [address] [place] [facility] Creatinine and Glomerular filtration rate.predicted panel (S/P/Bld) 57 mL/min/1.73m??? Low >=60 [facility] Comment on above: Order Comment: Elvia escobar Type: BLOOD SPECIMENOrdering Facility: [facility] Address: [address] [id number] Result Comment: Berenice mated Glomerular Filtration Rate (eGFR) is calculated using the 2020 CKD-EPI creatinine equation. This equation utilizes serum creatinine, sex, and age as parameters. The creatinine assay has traceable calibration to isotope dilution-mass spectrometry. Refer to KDIGO guidelines for clinical interpretation. In patients with unstable renal function, e.g. those with acute kidney injury, the eGFR may not accurately reflect actual GFR. Performed By: #### 1 9123-9, 12503-0, 2776-, 3083-1 ####[facility] LABIA [id number] [place] [id number] [place] Glucose [Mass/Vol] 99 mg/dL Normal 74-[address] [facility] Comment on above: Order Comment: Elvia escobar Type: BLOOD SPECIMENOrdering Facility: [facility] Address: [address] [id number] Result Comment: The [place] Diabetes Association (ADA) provides guidance for cutoff values for fasting glucose and random glucose. The ADA defines fasting as no caloric intake for at least 8 hours. Fasting plasma glucose results between 100 to 125 mg/dL indicate increased risk for diabetes (prediabetes).Fasting plasma glucose results greater than or equal to 126 mg/dL meet the criteria for diagnosis of diabetes. In the absence of unequivocal hyperglycemia, results should be confirmed by repeat testing. In a patient with classic symptoms of hyperglycemia or hyperglycemic crisis, random plasma glucose results greater than or equal to 200 mg/dL meet the criteria for diagnosis of diabetes.Reference: Standards of Medical Care in Diabetes 2016, [place] [employer]. Diabetes Care. 2016.39(Suppl 1). Performed By: #### 1 9123-9, 84277-5, 2777-1, 3084-1 ####[facility] LABCLIA [id number] [place] [address] [place] Potassium [Moles/Vol] 3.5 mmol/L Low 3.7-5.1 [facility] Comment on above: Order Comment: Elvia escobar Type: BLOOD SPECIMENOrdering Facility: [facility] Address: [address] [place] [address] Performed By: #### 1 9123-9, 62692-2, 2776-, 3083-1 ####[facility] LABIA [id number] [place] [address] [place] Protein [Mass/Vol] 5.5 g/dL Low 6.3-8.[address] [facility] Comment on above: Order Comment: Elvia escobar Type: BLOOD SPECIMENOrdering Facility: [facility] Address: [address] [place] [address] Performed By: #### 1 9123-9, 96711-9, 2776-, 3083- ####[facility] LABCLIA [id number] [place] [address] [place] Sodium [Moles/Vol] 141 mmol/L Normal 136-[address] [facility] Comment on above: Order Comment: Elvia escobar Type: BLOOD SPECIMENOrdering Facility: [facility] Address: [address] [place] [address] Performed By: #### 1 9123-9, 35958-7, 2777-1, 3084-1 ####[facility] LABCLIA [id number] [place] [address] [place] Urea nitrogen [Mass/Vol] 12 mg/dL Normal 7-21 [facility] Comment on above: Order Comment: Speci men Type: BLOOD SPECIMENOrdering Facility: [facility] Address: [address] [place] [address] Performed By: #### 1 9123-9, 35898-6, 2777-1, 3084-1 ####[facility] LABCLIA [id number] [place] [address] [place] Magnesium SerPl-mCncon 06-05 Magnesium [Mass/Vol] 2.0 mg/dL Normal 1.7-2.3 [facility] Comment on above: Order Comment: Speci men Type: BLOOD SPECIMENOrdering Facility: [facility] Address: [address] [place] [address] Performed By: #### 1 9123-9, 96256-4, 2777-1, 3084-1 ####[facility] LABCLIA [id number] [place] [address] [place] NURSING PROGon 06-05-2023 NURSING PROG [facility] [place] NUTRITION[place] 06-05-2023 NUTRITION Normal [facility] OUTSIDE BONE MARROW SLIDE RE VIEWon 06-05-2023 CASE REPORT Normal [place] [facility] [place] Comment on above: Order Comment: Speci men Type: FORMALIN-FIXED PARAFFIN-EMBEDDED TISSUE SPECIMENOrdering Facility: AP Outside Review Address: , , Result Comment: Bone Marrow Pathology Report Case: [id number] Provider: Mike Hughes MD Collected: 06/05/2023 04:00 PMOrdering Location: [facility] Received: 06/05/2023 03:57 PMPathologist: Mihaela Flowers MDSpecimen: SLIDE(S), 26 SLIDES (BM23-11) Performed By: #### L [id number] ####[facility] LABCLIA [id number] [place] [address] [address] DIAGNOSIS COMMENT Normal [facility] Comment on above: Order Comment: Speci men Type: FORMALIN-FIXED PARAFFIN-EMBEDDED TISSUE SPECIMENOrdering Facility: AP Outside Review Address: , , Result Comment: The patient is a 67-year-old female with history of breast cancer, status post resection and adjuvant radiation therapy (2013) who was noted to have leukopenia in November 2022 during a routine physical exam.Evaluation is limited on the suboptimal aspirate smears and core biopsy specimens. Morphologic review demonstrates a variably cellular bone marrow (~30- 40% based on the clot section) showing trilineage hematopoiesis with left shift and increased blasts, as supported by the CD34 and CD117 immunohistochemical stains. Flow cytometric immunophenotypic studies performed outside showed a 29.8% CD34 positive myeloid blasts. 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 Correlation with the clinical findings is suggested.This case was also reviewed by Dr.Claudiu Dixon from the hematopathology section at the [facility], and he concurs with the above rendered final diagnosis and interpretation. 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 2016)- Increased stainable iron.- Lymphoid aggregates present, favor benign.Peripheral blood smear:- Pancytopenia with macrocytic anemia, absolute neutropenia and few circulating blasts./ June 13, 2023 Performed By: #### L [id number] ####[facility] LABCLIA [id number] [address] [place] FINAL PERFORMING LAB Normal [facility] Comment on above: Order Comment: Speci men Type: FORMALIN-FIXED PARAFFIN-EMBEDDED TISSUE SPECIMENOrdering Facility: AP Outside Review Address: , , Result Comment: Diag nostic interpretation performed at [facility], [address] [id number] CLIA# [id number] Director: Boris Wood M.D. Performed By: #### L [id number] ####[facility] LABCLIA [id number] [address] [place] MICROSCOPIC DESCRIPTION Normal C [facility] Comment on above: Order Comment: Speci men Type: FORMALIN-FIXED PARAFFIN-EMBEDDED TISSUE SPECIMENOrdering Facility: AP Outside Review Address: , , Result Comment: GENNY PHERAL BLOOD:CBC (05/08/23) Diff: ManualWBC 1.42 k/uL Neutrophils % 12Hemoglobin 8.3 g/dL Lymphocytes % 82MCV 102.2 fL Monocytes % 3RDW-SD 62.3 fL Eosinophils % 0Platelet Count 20 k/uL Basophils % 0 Blasts % 3Morphology/Interpretation: Macrocytic anemia with anisocytosis and few ovalocytes. Leukopenia with absolute neutropenia, few circulating blasts and few hypogranular neutrophils. Thrombocytopenia.BONE MARROW ASPIRATE:Result Normal Range20 % Blasts 0-21 % Promyelocytes 1-526 % Myelos/Metas/Bands/Segs 32-721 % Eosinophils 1-60 % Basophils 0-11 % Monocytes 0-433 % Erythroid precursors 13-3717 % Lymphocytes 7-231 % Plasma cells 0-2 Myeloid/Erythro (1.5-4): 1.4. Cells counted: 500. Iron stain result: Increased stainable iron with few ring sideroblasts (~3/100 erythroid precursors). Specimen Quality: Spicular and cellular aspirate smears, but the staining is suboptimal and the morphology is poorly preserved is large areas, making morphologic evaluation very challenging. Megakaryocytes: Few seen. Morphology cannot be adequately assessed. Erythropoiesis: Progressive maturation. Few abnormal forms with nuclear budding and nuclear membrane irregularity are seen. Granulopoiesis: Left shift granulopoiesis with increased blasts that are small to intermediate in size with high N:C ratio, fine chromatin and scant cytoplasm.BONE MARROW BIOPSY: Adequacy: Inadequate predominantly showing blood and very scant evaluable marrow. Deeper sections on IHC have few evaluable marrow elements. Cellularity: Not evaluable ME ratio: Not evaluable Hematopoiesis: Not evaluable Megakaryocytes: Not seen Megakaryocyte morphology: Cannot be assessed. Lymphoid infiltrate: Not seen. Bone trabeculae: Not evaluable Other: Immunohistochemical and special stains received from the outside institution performed on the core biopsy (block [id number]) were reviewed at the [facility]. CD34 is difficult to interpret due to variable number of positive cells, but shows increased blasts with some areas showing greater than 20% blasts. CD117 shows greater than 20% positive cells including immature myeloid and erythroid precursors. CD3 shows scattered positive small T cells. CD20 shows a small aggregate of B cells. Stainable iron is present on the iron stain performed on the core biopsy.CLOT SECTION: Marrow particles: Many. Morphology: Superior to biopsy. Variably cellular bone marrow (~30-40%) showing trilineage hematopoiesis with left shift showing increased immature appearing mononuclear cells with fine nuclear chromatin and scant cytoplasm. Megakaryocytes are decreased and include morphologically normal forms and few small and hyperchromatic forms. Other: Immunohistochemical and special stains received from the outside institution performed on the clot section (block [id number]) were reviewed at the [facility]. CD3 highlights moderate numbers scattered positive T cells. CD20 highlights a small lymphoid aggregate and few scattered positive B cells otherwise. CD117 highlights approximately 20 to 25% positive cells, including immature mononuclear cells. CD34 is difficult to interpret due to variable staining and variable number of positive cells in different areas, overall at least greater than 10%. Stainable iron is present on the iron stain performed on the clot section.ANCILLARY TESTS: Ancillary studies were performed at [facility] (see complete scanned reports in [facility] for detailed results). Flow cytometry: ([id number]) Reported to show CD34 positive blasts, comprising 29.8% of total cells that show expression of CD13, CD33, CD34 mod, CD117, HLA-DR, dim CD123, and are negative for cMPO, cCD3, cCD22, cCD79a, Tdt and CD11b. 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 FISH: N/A. Molecular: ([id number]) Molecular NGS studies were reported to show the following clinically significant variants:DNMT3A R635W (VAF 34.4%)RUNX1 F40Wfs*14 (VAF 20.9%)TP53 C238Y (VAF 63.9%) Performed By: #### L [id number] ####[facility] [id number] [place] [address] [place] Phosphate SerPl-mCncon 06-05 Phosphate [Mass/Vol] 2.6 mg/dL Low 2.7-4.8 [facility] Comment on above: Order Comment: Speci luz Type: BLOOD SPECIMENOrdering Facility: [facility] Address: [address] [address] Performed By: #### 1 9123-9, 35464-8, 2777-1, 3084-1 ####[facility] [id number] [place] [address] [place] Urate SerPl-mCncon 3 Urate [Mass/Vol] 3.0 mg/dL Normal 2.5-6.6 [facility] Comment on above: Order Comment: Elvia [facility] Type: BLOOD SPECIMENOrdering Facility: [facility] Address: [address] [address] Performed By: #### 1 9123-9, 20715-8, 2777-1, 3084-1 ####[facility] LABCLIA [id number] [place] [address] [place] CASE MANAGEMon 06-04-2023 CASE MANAGEM [facility] [place] W Auto Differential pane l (Bld)on 06-04-2023 Anisocytosis Ql (Bld) Present Normal [facility] Comment on above: Order Comment: Speci men Type: BLOOD SPECIMENOrdering Facility: [facility] Address: [address] [address] Performed By: #### 5 7021-8 ####[facility] LABCLIA [id number] [place] [address] [place] Basophils (Bld) [#/Vol] 0.00 10*3/uL Normal <0.11 [facility] Comment on above: Order Comment: Speci men Type: BLOOD SPECIMENOrdering Facility: [facility] Address: [address] [address] Performed By: #### 5 7021-8 ####[facility] LABCLIA [id number] [place] [address] [place] Basophils/100 WBC (Bld) 0.0 % Normal [facility] Comment on above: Order Comment: Speci men Type: BLOOD SPECIMENOrdering Facility: [facility] Address: [address] Performed By: #### 5 7021-8 ####[facility] LABCLIA [id number] [place] [address] [place] BLAST% 1.0 % High <=0.0 [facility] Comment on above: Order Comment: Speci men Type: BLOOD SPECIMENOrdering Facility: [facility] Address: [address] Performed By: #### 5 7021-8 ####[facility] LABCLIA [id number] [place] [address] [place] Differential cell count method Nom (Bld) Manual Normal [facility] Comment on above: Order Comment: Speci men Type: BLOOD SPECIMENOrdering Facility: [facility] Address: [address] [place] [address] Performed By: #### 5 7021-8 ####[facility] LABIA [id number] [place] [address] [place] Eosinophils (Bld) [#/Vol] 0.01 10*3/uL Normal <0.46 [facility] Comment on above: Order Comment: Speci men Type: BLOOD SPECIMENOrdering Facility: [facility] Address: [address] [place] [address] Performed By: #### 5 7021-8 ####[facility] [id number] [place] [address] [place] Eosinophils/100 WBC (Bld) 1.0 % Normal [facility] Comment on above: Order Comment: Speci men Type: BLOOD SPECIMENOrdering Facility: [facility] Address: [address] [place] [address] Performed By: #### 5 7021-8 ####[facility] [id number] [place] [address] [place] Erythrocyte distribution wid th (RBC) [Ratio] 19.4 % High 11.5-15.0 [facility] Comment on above: Order Comment: Speci men Type: BLOOD SPECIMENOrdering Facility: [facility] Address: [address] [place] [address] Performed By: #### 5 7021-8 ####[facility] LABIA [id number] [place] [address] [place] Hematocrit (Bld) [Volume fraction] 22.8 % Low 3 6.0-46.0 [facility] Comment on above: Order Comment: Speci men Type: BLOOD SPECIMENOrdering Facility: [facility] Address: [address] Performed By: #### 5 7021-8 ####[facility] LABIA [id number] [place] [address] [place] Hemoglobin (Bld) [Mass/Vol] 7.9 g/dL Low 11.5-15. 5 [facility] Comment on above: Order Comment: Speci men Type: BLOOD SPECIMENOrdering Facility: [facility] Address: [address] Performed By: #### 5 7021-8 ####[facility] LABIA [id number] [place] [address] [place] Lymphocytes (Bld) [#/Vol] 1.06 10*3/uL Normal 1.00-4.0 0 [facility] Comment on above: Order Comment: Speci men Type: BLOOD SPECIMENOrdering Facility: [facility] Address: [address] Performed By: #### 5 7021-8 ####[facility] LABIA [id number] [address] [place] Lymphocytes/100 WBC (Bld) 87.0 % Normal [facility] Comment on above: Order Comment: Speci men Type: BLOOD SPECIMENOrdering Facility: [facility] Address: [address] Performed By: #### 5 7021-8 ####[facility] LABIA [id number] [place] [address] [place] MCH (RBC) [Entitic mass] 32.6 pg Normal 26.0-34.0 [facility] Comment on above: Order Comment: Speci men Type: BLOOD SPECIMENOrdering Facility: [facility] Address: [address] Performed By: #### 5 7021-8 ####[facility] LABCLIA [id number] [place] [address] [place] MCHC (RBC) [Mass/Vol] 34.6 g/dL Normal 30.5-36.0 [facility] Comment on above: Order Comment: Speci men Type: BLOOD SPECIMENOrdering Facility: [facility] Address: [address] [place] [address] Performed By: #### 5 7021-8 ####[facility] LABIA [id number] [place] [address] [place] MCV (RBC) [Entitic vol] 94.2 fL Normal 80.0-100.0 C [facility] Comment on above: Order Comment: Speci men Type: BLOOD SPECIMENOrdering Facility: [facility] Address: [address] [place] [address] Performed By: #### 5 7021-8 ####[facility] LABIA [id number] [place] [address] [place] Monocytes (Bld) [#/Vol] 0.00 10*3/uL Normal <0.87 [facility] Comment on above: Order Comment: Speci men Type: BLOOD SPECIMENOrdering Facility: [facility] Address: [address] [place], [place] [address] Performed By: #### 5 7021-8 ####[facility] LABIA [id number] [place] [address] [place] Monocytes/100 WBC (Bld) 0.0 % Normal C [facility] Comment on above: Order Comment: Speci men Type: BLOOD SPECIMENOrdering Facility: [facility] Address: [address] [place], [place] [address] Performed By: #### 5 7021-8 ####[facility] LABIA [id number] [place] [address] [place] Neutrophils (Bld) [#/Vol] 0.13 10*3/uL Low 1.45-7.5 0 [facility] Comment on above: Order Comment: Speci men Type: BLOOD SPECIMENOrdering Facility: [facility] Address: [address] [address] Performed By: #### 5 7021-8 ####[facility] LABCLIA [id number] [address] [place] Neutrophils/100 WBC (Bld) 11.0 % Normal [facility] Comment on above: Order Comment: Speci men Type: BLOOD SPECIMENOrdering Facility: [facility] Address: [address] [place] [address] Performed By: #### 5 7021-8 ####[facility] LABCLIA [id number] [place] [address] [place] Nucleated RBC (Bld) [#/Vol] 0.01 10*3/uL High <0.01 [facility] Comment on above: Order Comment: Speci men Type: BLOOD SPECIMENOrdering Facility: [facility] Address: [address] [place], [place] [address] Performed By: #### 5 7021-8 ####[facility] LABCLIA [id number] [address] [place] Nucleated RBC/100 WBC (Bld) [Ratio] 1.0 /100 WBC Normal [facility] Comment on above: Order Comment: Speci men Type: BLOOD SPECIMENOrdering Facility: [facility] Address: [address] Performed By: #### 5 7021-8 ####[facility] LABCLIA [id number] [place] [address] [place] Ovalocytes LM Ql (Bld) Few Normal [facility] Comment on above: Order Comment: Speci men Type: BLOOD SPECIMENOrdering Facility: [facility] Address: [address] [place], [place] [address] Performed By: #### 5 7021-8 ####[facility] LABCLIA [id number] [place] [address] [place] Platelet mean volume (Bld) [Entitic vol] Normal [facility] Comment on above: Order Comment: Speci men Type: BLOOD SPECIMENOrdering Facility: [facility] Address: [address] [place], [place] [address] Result Comment: Unab le to Report. Performed By: #### 5 7021-8 ####[facility] LABIA [id number] [place] [address] [place] Platelets (Bld) [#/Vol] 11 10*3/uL Low 150-400 C [facility] Comment on above: Order Comment: Speci men Type: BLOOD SPECIMENOrdering Facility: [facility] Address: [address] [place], [place] [address] Result Comment: No c lot detected.Results checked and verified. Performed By: #### 5 7021-8 ####[facility] LABIA [id number] [place] [address] [place] Platelets Estimate (Bld) [#/Vol] Decreased Normal [facility] Comment on above: Order Comment: Speci men Type: BLOOD SPECIMENOrdering Facility: [facility] Address: [address] [place], [place] [address] Performed By: #### 5 7021-8 ####[facility] LABIA [id number] [place] [address] [place] RBC (Bld) [#/Vol] 2.42 10*6/uL Low 3.90-5.20 [facility] Comment on above: Order Comment: Speci men Type: BLOOD SPECIMENOrdering Facility: [facility] Address: [address] [place] [address] Performed By: #### 5 7021-8 ####[facility] LABCLIA [id number] [place] [address] [place] RBC FRAGMENTS Few Abnormal None Seen [place] [facility] [place] Comment on above: Order Comment: Speci men Type: BLOOD SPECIMENOrdering Facility: [facility] Address: [address] [place] [address] Performed By: #### 5 7021-8 ####[facility] LABCLIA [id number] [place] [address] [place] RED CELL MORPH Reviewed: see result s of individual morphologies Normal [facility] Comment on above: Order Comment: Speci men Type: BLOOD SPECIMENOrdering Facility: [facility] Address: [address] [place] [address] Performed By: #### 5 7021-8 ####[facility] LABCLIA [id number] [place] [address] [place] WBC (Bld) [#/Vol] 1.22 10*3/uL Low 3.70-11.00 [facility] Comment on above: Order Comment: Speci men Type: BLOOD SPECIMENOrdering Facility: [facility] Address: [address] [place] [address] Result Comment: No c lot detected. Performed By: #### 5 7021-8 ####[facility] LABCLIA [id number] [place] [address] [place] Comprehensive metabolic 2000 panelon 06-04-2023 Albumin [Mass/Vol] 3.7 g/dL Low 3.9-4.[address] [facility] Comment on above: Order Comment: Speci men Type: BLOOD SPECIMENOrdering Facility: [facility] Address: [address] [place] [address] Performed By: #### 1 9123-9, 2777-1, 3084-1, 34443-4 ####[facility] LABCLIA [id number] [place] [address] [place] ALP [Catalytic activity/Vol] 55 U/L Normal 34-123 [facility] Comment on above: Order Comment: Speci men Type: BLOOD SPECIMENOrdering Facility: [facility] Address: [place] [address] Performed By: #### 1 9123-9, 2777-1, 308-1, 41834-0 ####[facility] LABCLIA [id number] [place] [address] [place] ALT [Catalytic activity/Vol] 17 U/L Normal 7-38 [facility] Comment on above: Order Comment: Speci men Type: BLOOD SPECIMENOrdering Facility: [facility] Address: [address] [place] [address] Performed By: #### 1 9123-9, 277-1, 308-, 30348-7 ####[facility] LABCLIA [id number] [place] [address] [place] Anion gap [Moles/Vol] 11 mmol/L Normal 9-18 [facility] Comment on above: Order Comment: Speci men Type: BLOOD SPECIMENOrdering Facility: [facility] Address: [address] [place], [place] [address] Performed By: #### 1 9123-9, 277-1, 308-, 56391-0 ####[facility] LABCLIA [id number] [place] [address] [place] AST [Catalytic activity/Vol] 14 U/L Normal 13-35 [facility] Comment on above: Order Comment: Speci men Type: BLOOD SPECIMENOrdering Facility: [facility] Address: [address] [place], [place] [address] Performed By: #### 1 9123-9, 277-1, 3084-1, 63027-1 ####[facility] LABCLIA [id number] [place] [address] [place] Bilirubin [Mass/Vol] 0.5 mg/dL Normal 0.2-1.3 [facility] Comment on above: Order Comment: Speci men Type: BLOOD SPECIMENOrdering Facility: [facility] Address: [address] [place] [address] Performed By: #### 1 9123-9, 2777-1, 3084-1, 72240-2 ####[facility] LABCLIA [id number] [place] [address] [place] Calcium [Mass/Vol] 9.0 mg/dL Normal 8.5-10.[address] [facility] Comment on above: Order Comment: Speci men Type: BLOOD SPECIMENOrdering Facility: [facility] Address: [address] [place] [address] Performed By: #### 1 9123-9, 277-1, 308-, 04907-8 ####[facility] LABCLIA [id number] [place] [address] [place] Chloride [Moles/Vol] 107 mmol/L High 97-105 [facility] Comment on above: Order Comment: Speci men Type: BLOOD SPECIMENOrdering Facility: [facility] Address: [address] [place] [address] Performed By: #### 1 9123-9, 277-1, 308-, 99750-9 ####[facility] LABCLIA [id number] [place] [address] [place] CO2 [Moles/Vol] 23 mmol/L Normal 22-30 [facility] Comment on above: Order Comment: Speci men Type: BLOOD SPECIMENOrdering Facility: [facility] Address: [address] [place], [place] [address] Performed By: #### 1 9123-9, 2777-1, 3084-, 01553-3 ####[facility] LABCLIA [id number] [place] [address] [place] Creatinine [Mass/Vol] 0.99 mg/dL High 0.58-0.96 [facility] Comment on above: Order Comment: Elvia escobar Type: BLOOD SPECIMENOrdering Facility: [facility] Address: [address] [id number] Performed By: #### 1 9123-9, 2777-1, 3084-1, 13554-3 ####[facility] LABIA [id number] [place] [id number] [place] [facility] Creatinine and Glomerular filtration rate.predicted panel (S/P/Bld) 62 mL/min/1.73m??? Normal >=60 [facility] Comment on above: Order Comment: Elvia escobar Type: BLOOD SPECIMENOrdering Facility: [facility] Address: [address] [id number] Result Comment: Berenice mated Glomerular Filtration Rate (eGFR) is calculated using the 2020 CKD-EPI creatinine equation. This equation utilizes serum creatinine, sex, and age as parameters. The creatinine assay has traceable calibration to isotope dilution-mass spectrometry. Refer to KDIGO guidelines for clinical interpretation. In patients with unstable renal function, e.g. those with acute kidney injury, the eGFR may not accurately reflect actual GFR. Performed By: #### 1 9123-9, 2777-1, 3084-1, 94044-3 ####[facility] LABIA [id number] [place] [id number] [place] Glucose [Mass/Vol] 106 mg/dL High 74-[address] [facility] Comment on above: Order Comment: Elvia escobar Type: BLOOD SPECIMENOrdering Facility: [facility] Address: [address] [phone] Result Comment: The [place] Diabetes [employer] (ADA) provides guidance for cutoff values for fasting glucose and random glucose. The ADA defines fasting as no caloric intake for at least 8 hours. Fasting plasma glucose results between 100 to 125 mg/dL indicate increased risk for diabetes (prediabetes).Fasting plasma glucose results greater than or equal to 126 mg/dL meet the criteria for diagnosis of diabetes. In the absence of unequivocal hyperglycemia, results should be confirmed by repeat testing. In a patient with classic symptoms of hyperglycemia or hyperglycemic crisis, random plasma glucose results greater than or equal to 200 mg/dL meet the criteria for diagnosis of diabetes.Reference: Standards of Medical Care in Diabetes 2016, [place] [employer]. Diabetes Care. 2016.39(Suppl 1). Performed By: #### 1 9123-9, 2777-1, 3084-1, 89120-5 ####[facility] LABCLIA [id number] [place] [address] [place] Potassium [Moles/Vol] 3.3 mmol/L Low 3.7-5.1 [facility] Comment on above: Order Comment: Elvia escobar Type: BLOOD SPECIMENOrdering Facility: [facility] Address: [address] [place] [address] Performed By: #### 1 9123-9, 277-, 3083-09, 62858-5 ####[facility] LABIA [id number] [place] [address] [place] Protein [Mass/Vol] 5.7 g/dL Low 6.3-8.[address] [facility] Comment on above: Order Comment: Elvia escobar Type: BLOOD SPECIMENOrdering Facility: [facility] Address: [address] [place] [address] Performed By: #### 1 9123-9, 277-, 3083-09, 71081-2 ####[facility] LABCLIA [id number] [place] [address] [place] Sodium [Moles/Vol] 141 mmol/L Normal 136-[address] [facility] Comment on above: Order Comment: Elvia escobar Type: BLOOD SPECIMENOrdering Facility: [facility] Address: [address] [place] [address] Performed By: #### 1 9123-9, 2777-1, 3084-, 35040-5 ####[facility] LABCLIA [id number] [place] [address] [place] Urea nitrogen [Mass/Vol] 11 mg/dL Normal 7-21 [facility] Comment on above: Order Comment: Speci men Type: BLOOD SPECIMENOrdering Facility: [facility] Address: [address] [place] [address] Performed By: #### 1 9123-9, 2777-1, 3084-1, 67143-6 ####[facility] LABCLIA [id number] [place] [address] [place] ECG COMPLETEon 06-04-2023 ECG COMPLETE Normal [place] [facility] [place] Magnesium SerPl-mCncon 06-04 Magnesium [Mass/Vol] 2.0 mg/dL Normal 1.7-2.3 [facility] Comment on above: Order Comment: Speci men Type: BLOOD SPECIMENOrdering Facility: [facility] Address: [address] [place] [address] Performed By: #### 1 9123-9, 2777-1, 3084-1, 06645-4 ####[facility] LABCLIA [id number] [place] [address] [place] Phosphate SerPl-ncon 06-04 Phosphate [Mass/Vol] 2.7 mg/dL Normal 2.7-4.8 [facility] Comment on above: Order Comment: Speci men Type: BLOOD SPECIMENOrdering Facility: [facility] Address: [address] [place] [address] Performed By: #### 1 9123-9, 2777-1, 3084-1, 00915-8 ####[facility] LABCLIA [id number] [place] [id number] [place] SOCIAL WORKon 06-04-2023 SOCIAL WORK Normal [place] [facility] chris [place] Urate SerPl-mCncon Urate [Mass/Vol] 3.1 mg/dL Normal 2.5-6.6 [facility] Comment on above: Order Comment: Elvia escobar Type: BLOOD SPECIMENOrdering Facility: [facility] Address: [address] [place] [address] Performed By: #### 1 9123-9, 2777-1, 3084-1, 57341-1 ####[facility] LABCLIA [id number] [address] BLOOD BANK PLACEHOLDER, CHANDLER [employer] REACTION PATHOLOGY REPORTon 06-03-2023 BLOOD BANK REPORT, TRANSFUSION REACTION PATHOLOGY REPORT See Pathology Report Normal [facility] Comment on above: Order Comment: Elvia escobar Type: BLOOD SPECIMENOrdering Facility: [facility] Address: [address] [place] [address] Performed By: #### T SCR, [id number], [id number] ####[facility] BLOOD BANKCLIA [id number] [address]#### [id number] ####[facility] LABCLIA [id number] [address] BLOOD BANK REPORT, TRANSFUSI ON REACTION PATHOLOGY REPORTon 06-03-2023 PATHOLOGY INTERPRETATION Normal [facility] Comment on above: Order Comment: Elvia escobar Type: BLOOD SPECIMENOrdering Facility: [facility] Address: [address] [place] [address] Result Comment: Date of symptom onset:June 05ertinent medical history:67-year-old female with past medical history of breast cancer status post lumpectomy and adjuvant radiation therapy and recent diagnosis of acute myeloid leukemia. Patient labs demonstrate pancytopenia and need for platelet transfusion.Transfusion Information:Date Component DIN Start time (h) End time (h) Amount transfused (mL)Monday, June 05, 2023 Platelet [id number] 0328 0440 300 mLSymptoms, signs, and onset:Itching around neck and a hive around lips were noted at 0440 on 06/05/2023. Vital signs remain stable.Treatment and post-transfusion course:50mg IV diphenhydramine was given at 0443 on 06/05/2023. At 0510 per chart review, patient stated ???I believe the hives are going away.??? Vitals remain stable at time of written report.Dr. Cali Porter MD, discussed this case with Rashawn Kinsey RN, at 0455h on Monday, June 05, 2023.Results of Investigation:A clerical check shows no discrepancies. Further workup is not indicated.Diagnosis:Allergic transfusion reaction (non- severe)Summary prepared by Dr. Neo Gunderson DO, Pathology Resident.Discussed with, reviewed, and revised by Dr. Javier Koenig MD, Transfusion Medicine Staff Physician. Performed By: #### T SCR, [id number], [id number] ####[facility] BLOOD BANKIA [id number] [address] [place]#### [id number] ####[facility] LABCLIA [id number] [place] [address] [place] C diff Tox gens Stl Ql KIAH+p robeon 06-03-2023 C. difficile toxin genes KIAH+probe Ql (Stl) Negative Normal Negative for C. difficile toxin by PCR [facility] Comment on above: Order Comment: Speci men Type: STOOL SPECIMENOrdering Facility: [facility] Address: [address] [place] [address] Performed By: #### 5 4067-4 ####[facility] LABIA [id number] [place] [address] [place] CBC W Auto Differential pane l (Bld)on 06-03-2023 Anisocytosis Ql (Bld) Present Normal [facility] Comment on above: Order Comment: Speci men Type: BLOOD SPECIMENOrdering Facility: [facility] Address: [address] [place] [address] Performed By: #### 5 7021-8 ####[facility] LABCLIA [id number] [place] [address] [place] Basophils (Bld) [#/Vol] 0.00 10*3/uL Normal <0.11 [facility] Comment on above: Order Comment: Speci men Type: BLOOD SPECIMENOrdering Facility: [facility] Address: [address] [place] [address] Performed By: #### 5 7021-8 ####[facility] LABCLIA [id number] [place] [address] [place] Basophils/100 WBC (Bld) 0.0 % Normal [facility] Comment on above: Order Comment: Speci men Type: BLOOD SPECIMENOrdering Facility: [facility] Address: [address] [place] [address] Performed By: #### 5 7021-8 ####[facility] LABCLIA [id number] [place] [address] [place] BLAST% 3.0 % High <=0.0 [facility] Comment on above: Order Comment: Speci men Type: BLOOD SPECIMENOrdering Facility: [facility] Address: [address] [place] [address] Performed By: #### 5 7021-8 ####[facility] LABCLIA [id number] [place] [address] [place] Differential cell count method Nom (Bld) Manual Normal [facility] Comment on above: Order Comment: Speci men Type: BLOOD SPECIMENOrdering Facility: [facility] Address: [address] [place] [address] Performed By: #### 5 7021-8 ####[facility] LABCLIA [id number] [place] [address] [place] Eosinophils (Bld) [#/Vol] 0.02 10*3/uL Normal <0.46 [facility] Comment on above: Order Comment: Speci men Type: BLOOD SPECIMENOrdering Facility: [facility] Address: [address] [place] [address] Performed By: #### 5 7021-8 ####[facility] LABIA [id number] [address] [place] Eosinophils/100 WBC (Bld) 2.0 % Normal [facility] Comment on above: Order Comment: Speci men Type: BLOOD SPECIMENOrdering Facility: [facility] Address: [address] Performed By: #### 5 7021-8 ####[facility] LABIA [id number] [place] [address] [place] Erythrocyte distribution wid th (RBC) [Ratio] 19.9 % High 11.5-15.0 [facility] Comment on above: Order Comment: Speci men Type: BLOOD SPECIMENOrdering Facility: [facility] Address: [address] Performed By: #### 5 7021-8 ####[facility] LABIA [id number] [place] [address] [place] Hematocrit (Bld) [Volume fraction] 19.0 % Low 3 6.0-46.0 [facility] Comment on above: Order Comment: Speci men Type: BLOOD SPECIMENOrdering Facility: [facility] Address: [address] Performed By: #### 5 7021-8 ####[facility] LABIA [id number] [place] [address] [place] Hemoglobin (Bld) [Mass/Vol] 6.5 g/dL Low 11.5-15. 5 [facility] Comment on above: Order Comment: Speci men Type: BLOOD SPECIMENOrdering Facility: [facility] Address: [address] Performed By: #### 5 7021-8 ####[facility] LABCLIA [id number] [place] [address] [place] Lymphocytes (Bld) [#/Vol] 0.90 10*3/uL Low 1.00-4.0 0 [facility] Comment on above: Order Comment: Speci men Type: BLOOD SPECIMENOrdering Facility: [facility] Address: [address] [place] [address] Performed By: #### 5 7021-8 ####[facility] LABIA [id number] [place] [address] [place] Lymphocytes/100 WBC (Bld) 76.0 % Normal [facility] Comment on above: Order Comment: Speci men Type: BLOOD SPECIMENOrdering Facility: [facility] Address: [address] [place] [address] Performed By: #### 5 7021-8 ####[facility] LABIA [id number] [place] [address] [place] MCH (RBC) [Entitic mass] 33.2 pg Normal 26.0-34.0 [facility] Comment on above: Order Comment: Speci men Type: BLOOD SPECIMENOrdering Facility: [facility] Address: [address] [place] [address] Performed By: #### 5 7021-8 ####[facility] LABIA [id number] [place] [address] [place] MCHC (RBC) [Mass/Vol] 34.2 g/dL Normal 30.5-36.0 [facility] Comment on above: Order Comment: Speci men Type: BLOOD SPECIMENOrdering Facility: [facility] Address: [address] [place] [address] Performed By: #### 5 7021-8 ####[facility] LABIA [id number] [place] [address] [place] MCV (RBC) [Entitic vol] 96.9 fL Normal 80.0-100.0 C [facility] Comment on above: Order Comment: Speci men Type: BLOOD SPECIMENOrdering Facility: [facility] Address: [address] [place], [place] [address] Performed By: #### 5 7021-8 ####[facility] LABCLIA [id number] [place] [address] [place] Monocytes (Bld) [#/Vol] 0.02 10*3/uL Normal <0.87 [facility] Comment on above: Order Comment: Speci men Type: BLOOD SPECIMENOrdering Facility: [facility] Address: [address] [place] [address] Performed By: #### 5 7021-8 ####[facility] LABCLIA [id number] [address] [place] Monocytes/100 WBC (Bld) 2.0 % Normal C [facility] Comment on above: Order Comment: Speci men Type: BLOOD SPECIMENOrdering Facility: [facility] Address: [address] [place], [place] [address] Performed By: #### 5 7021-8 ####[facility] LABCLIA [id number] [place] [address] [place] Neutrophils (Bld) [#/Vol] 0.20 10*3/uL Low 1.45-7.5 0 [facility] Comment on above: Order Comment: Speci men Type: BLOOD SPECIMENOrdering Facility: [facility] Address: [address] [place], [place] [address] Performed By: #### 5 7021-8 ####[facility] LABCLIA [id number] [place] [address] [place] Neutrophils/100 WBC (Bld) 17.0 % Normal [facility] Comment on above: Order Comment: Speci men Type: BLOOD SPECIMENOrdering Facility: [facility] Address: [address] [place] [address] Performed By: #### 5 7021-8 ####[facility] LABCLIA [id number] [place] [address] [place] Nucleated RBC (Bld) [#/Vol] 10*3/uL Normal <0.01 [facility] Comment on above: Order Comment: Speci men Type: BLOOD SPECIMENOrdering Facility: [facility] Address: [address] Performed By: #### 5 7021-8 ####[facility] LABIA [id number] [address] OF [facility] Nucleated RBC/100 WBC (Bld) [Ratio] 0.0 /100 WBC Normal [facility] Comment on above: Order Comment: Speci men Type: BLOOD SPECIMENOrdering Facility: [facility] Address: [address] [place], [place] [address] Performed By: #### 5 7021-8 ####[facility] LABIA [id number] [place] [address] [place] Ovalocytes LM Ql (Bld) Few Normal Cl [facility] Comment on above: Order Comment: Speci men Type: BLOOD SPECIMENOrdering Facility: [facility] Address: [address] [place], [place] [address] Performed By: #### 5 7021-8 ####[facility] LABIA [id number] [place] [address] [place] Platelet mean volume (Bld) [Entitic vol] Normal [facility] Comment on above: Order Comment: Speci men Type: BLOOD SPECIMENOrdering Facility: [facility] Address: [address] [place], [place] [address] Result Comment: Unab le to Report. Performed By: #### 5 7021-8 ####[facility] LABIA [id number] [place] [address] [place] Platelets (Bld) [#/Vol] 14 10*3/uL Low 150-400 [facility] [facility] Comment on above: Order Comment: Speci men Type: BLOOD SPECIMENOrdering Facility: [facility] Address: [address] [place], [place] [address] Result Comment: Resu lts checked and verified.No clot detected. Performed By: #### 5 7021-8 ####[facility] LABCLIA [id number] [place] [address] [place] Platelets Estimate (Bld) [#/Vol] Decreased Normal [facility] Comment on above: Order Comment: Speci men Type: BLOOD SPECIMENOrdering Facility: [facility] Address: [address] [place] [address] Performed By: #### 5 7021-8 ####[facility] LABIA [id number] [place] [address] [place] RBC (Bld) [#/Vol] 1.96 10*6/uL Low 3.90-5.20 [facility] Comment on above: Order Comment: Speci men Type: BLOOD SPECIMENOrdering Facility: [facility] Address: [address] [place] [address] Performed By: #### 5 7021-8 ####[facility] LABCLIA [id number] [address] [place] RBC FRAGMENTS Few Abnormal None Seen [facility] Comment on above: Order Comment: Speci men Type: BLOOD SPECIMENOrdering Facility: [facility] Address: [address] [place] [address] Performed By: #### 5 7021-8 ####[facility] LABIA [id number] [address] [place] Reviewed: see result s of individual morphologies Normal [facility] Comment on above: Order Comment: Speci men Type: BLOOD SPECIMENOrdering Facility: [facility] Address: [address] [place] [address] Performed By: #### 5 7021-8 ####[facility] LABIA [id number] [place] [address] [place] WBC (Bld) [#/Vol] 1.18 10*3/uL Low 3.70-11.00 [facility] Comment on above: Order Comment: Speci men Type: BLOOD SPECIMENOrdering Facility: [facility] Address: [address] [place] [address] Result Comment: No c lot detected. Performed By: #### 5 7021-8 ####[facility] LABIA [id number] [place] [address] [place] [facility] [place] Comprehensive metabolic 2000 panelon 06-03-2023 Albumin [Mass/Vol] 3.3 g/dL Low 3.9-4.[address] [facility] Comment on above: Order Comment: Speci men Type: BLOOD SPECIMENOrdering Facility: [facility] Address: [address] [place] [address] Performed By: #### 2 777-1, 3084-1, 03919-4, 97622-4 ####[facility] LABIA [id number] [address] [place] ALP [Catalytic activity/Vol] 50 U/L Normal 34-123 [facility] Comment on above: Order Comment: Speci men Type: BLOOD SPECIMENOrdering Facility: [facility] Address: [address] [place] [address] Performed By: #### 2 777-1, 3084-1, 67957-6, 36841-5 ####[facility] LABIA [id number] [address] [place] ALT [Catalytic activity/Vol] 12 U/L Normal 7-38 [facility] Comment on above: Order Comment: Speci men Type: BLOOD SPECIMENOrdering Facility: [facility] Address: [address] [place], [place] [address] Performed By: #### 2 777-1, 3084-1, 30487-8, ####[facility] LABCLIA [id number] [place] [address] [place] Anion gap [Moles/Vol] 12 mmol/L Normal 9-18 [facility] Comment on above: Order Comment: Speci men Type: BLOOD SPECIMENOrdering Facility: [facility] Address: [address] [place], [place] [address] Performed By: #### 2 777-1, 3084-1, 98238-6, ####[facility] LABCLIA [id number] [place] [address] [place] AST [Catalytic activity/Vol] 12 U/L Low 13-35 [facility] Comment on above: Order Comment: Speci men Type: BLOOD SPECIMENOrdering Facility: [facility] Address: [address] [place], [place] [address] Performed By: #### 2 777-1, 3084-1, 82479-8, ####[facility] LABCLIA [id number] [place] [address] [place] Bilirubin [Mass/Vol] 0.4 mg/dL Normal 0.2-1.3 [facility] Comment on above: Order Comment: Speci men Type: BLOOD SPECIMENOrdering Facility: [facility] Address: [address] [place], [place] [address] Performed By: #### 2 777-1, 3084-1, 05132-9, ####[facility] LABCLIA [id number] [address] [address] [place] Calcium [Mass/Vol] 9.0 mg/dL Normal 8.5-10.[address] [facility] Comment on above: Order Comment: Speci men Type: BLOOD SPECIMENOrdering Facility: [facility] Address: [address] [id number] Performed By: #### 2 777-1, 3084-1, 77093-5, 01400-2 ####[facility] LABCLIA [id number] [place] [address] [place] Chloride [Moles/Vol] 108 mmol/L High 97-105 [facility] Comment on above: Order Comment: Speci men Type: BLOOD SPECIMENOrdering Facility: [facility] Address: [address] [place], [place] [address] Performed By: #### 2 777-1, 3084-1, 75848-2, ####[facility] LABCLIA [id number] [place] [address] [place] CO2 [Moles/Vol] 21 mmol/L Low 22-30 [facility] Comment on above: Order Comment: Speci men Type: BLOOD SPECIMENOrdering Facility: [facility] Address: [address] [place] [address] Performed By: #### 2 777-1, 3084-1, 46799-6, ####[facility] LABCLIA [id number] [place] [address] [place] Creatinine [Mass/Vol] 0.93 mg/dL Normal 0.58-0.96 [facility] Comment on above: Order Comment: Speci men Type: BLOOD SPECIMENOrdering Facility: [facility] Address: [address] [place], [place] [address] Performed By: #### 2 777-1, 3084-1, 34036-1, 58198-3 ####[facility] LABCLIA [id number] [place] [address] [place] Creatinine and Glomerular filtration rate.predicted panel (S/P/Bld) 67 mL/min/1.73m??? Normal >=60 [facility] Comment on above: Order Comment: Elvia escobar Type: BLOOD SPECIMENOrdering Facility: [facility] Address: [address] [place], [place] [address] Result Comment: Berenice mated Glomerular Filtration Rate (eGFR) is calculated using the 2020 CKD-EPI creatinine equation. This equation utilizes serum creatinine, sex, and age as parameters. The creatinine assay has traceable calibration to isotope dilution-mass spectrometry. Refer to KDIGO guidelines for clinical interpretation. In patients with unstable renal function, e.g. those with acute kidney injury, the eGFR may not accurately reflect actual GFR. Performed By: #### 2 777-1, 3084-1, 82618-6, 22175-0 ####[facility] [id number] [place] [address] [place] Glucose [Mass/Vol] 111 mg/dL High 74-[address] [facility] Comment on above: Order Comment: Elvia escobar Type: BLOOD SPECIMENOrdering Facility: [facility] Address: [address] [place] [address] Result Comment: The [place] [employer] (ADA) provides guidance for cutoff values for fasting glucose and random glucose. The ADA defines fasting as no caloric intake for at least 8 hours. Fasting plasma glucose results between 100 to 125 mg/dL indicate increased risk for diabetes (prediabetes).Fasting plasma glucose results greater than or equal to 126 mg/dL meet the criteria for diagnosis of diabetes. In the absence of unequivocal hyperglycemia, results should be confirmed by repeat testing. In a patient with classic symptoms of hyperglycemia or hyperglycemic crisis, random plasma glucose results greater than or equal to 200 mg/dL meet the criteria for diagnosis of diabetes.Reference: Standards of Medical Care in Diabetes 2016, [place] [employer]. Diabetes Care. 2016.39(Suppl 1). Performed By: #### 2 777-1, 3084-1, 03572-1, 73865-9 ####[facility] LABIA [id number] [place] [id number] [place] Potassium [Moles/Vol] 3.3 mmol/L Low 3.7-5.1 [facility] Comment on above: Order Comment: Speci men Type: BLOOD SPECIMENOrdering Facility: [facility] Address: [address] [phone] Performed By: #### 2 777-1, 3084-1, 45048-3, ####[facility] LABCLIA [id number] [place] [id number] [place] Protein [Mass/Vol] 5.3 g/dL Low 6.3-8.[address] [facility] Comment on above: Order Comment: Speci men Type: BLOOD SPECIMENOrdering Facility: [facility] Address: [address] [address] Performed By: #### 2 777-1, 3084-1, 37755-2, ####[facility] LABIA [id number] [place] [address] [place] Sodium [Moles/Vol] 141 mmol/L Normal 136-[address] [facility] Comment on above: Order Comment: Speci men Type: BLOOD SPECIMENOrdering Facility: [facility] Address: [address] [address] Performed By: #### 2 777-1, 3084-1, , ####[facility] LABIA [id number] [place] [address] [place] Urea nitrogen [Mass/Vol] 9 mg/dL Normal 7-21 [facility] Comment on above: Order Comment: Speci men Type: BLOOD SPECIMENOrdering Facility: [facility] Address: [address] [phone] Performed By: #### 2 777-1, 308-1, 09967-6, ####[facility] LABIA [id number] [address] [address] [place] Magnesium SerPl-mCncon 06-03 Magnesium [Mass/Vol] 1.9 mg/dL Normal 1.7-2.3 [facility] Comment on above: Order Comment: Speci men Type: BLOOD SPECIMENOrdering Facility: [facility] Address: [address] [place] [address] Performed By: #### 2 777-1, 3084-1, 19260-8, 58384-8 ####[facility] LABCLIA [id number] [place] [address] [place] Phosphate SerPl-mCncon 06-03 Phosphate [Mass/Vol] 3.0 mg/dL Normal 2.7-4.8 [facility] Comment on above: Order Comment: Speci men Type: BLOOD SPECIMENOrdering Facility: [facility] Address: [address] [place] [address] Performed By: #### 2 777-1, 3084-1, 07560-4, 39376-9 ####[facility] LABCLIA [id number] [place] [address] [place] TYPE + SCREENon 06-03-2023 ABO O Normal [facility] Comment on above: Order Comment: Speci men Type: BLOOD SPECIMENOrdering Facility: [facility] Address: [address] [place] [address] Performed By: #### T SCR, [id number], [id number] ####[facility] BLOOD BANKCLIA [id number] [place] [address] [place]#### [id number] ####[facility] LABCLIA [id number] [place] [address] [place] HISTORICAL AB SCR STATUS Negative Normal [facility] Comment on above: Order Comment: Speci men Type: BLOOD SPECIMENOrdering Facility: [facility] Address: [address] [place] [address] Performed By: #### T SCR, [id number], [id number] ####[facility] BLOOD BANKCLIA [id number] [place] [address] [place]#### [id number] ####[facility] LABCLIA [id number] [place] [address] [place] Rh Nom (Bld) Positive Normal [facility] Comment on above: Order Comment: Speci men Type: BLOOD SPECIMENOrdering Facility: [facility] Address: [address] [place], [place] [address] Performed By: #### T SCR, [id number], [id number] ####[facility] BLOOD BANKCLIA [id number] [place] [address] [place]#### [id number] ####[facility] LABCLIA [id number] [place] [address] [place] TYPE AND SCREEN EXPIRATION 06/06/2023 23:59 Normal [facility] Comment on above: Order Comment: Speci men Type: BLOOD SPECIMENOrdering Facility: [facility] Address: [address] [place] [address] Performed By: #### T SCR, [id number], [id number] ####[facility] BLOOD BANKCLIA [id number] [place] [address] [place]#### [id number] ####[facility] LABCLIA [id number] [place] [address] [place] URTICARIAL REACTIONon 2022 OK TO TRANSFUSE Yes Normal [facility] Comment on above: Order Comment: Speci men Type: BLOOD SPECIMENOrdering Facility: [facility] Address: [address] [place] [address] Performed By: #### T SCR, [id number], [id number] ####[facility] BLOOD BANKCLIA [id number] [place] [address] [place]#### [id number] ####[facility] LABCLIA [id number] [address] [place] Urate SerPl-mCncon 3 Urate [Mass/Vol] 3.4 mg/dL Normal 2.5-6.6 [facility] Comment on above: Order Comment: Speci men Type: BLOOD SPECIMENOrdering Facility: [facility] Address: [address] [place] [address] Performed By: #### 2 777-1, 3084-1, 63209-2, 08617-7 ####[facility] LABCLIA [id number] [place] [address] [place] BMT REC INIT W/Uon 3 ALLOGEN RESULTS TO FOLLOW See Allogen re port to follow Normal [facility] Comment on above: Order Comment: Speci men Type: BLOOD SPECIMENOrdering Facility: [facility] Address: [address] [place] [address] Performed By: #### B MTRIW ####[facility] [id number] [place] [address] [place] CBC W Auto Differential pane l (Bld)on 06-02-2023 Anisocytosis Ql (Bld) Present Normal [facility] Comment on above: Order Comment: Speci men Type: BLOOD SPECIMENOrdering Facility: [facility] Address: [address] [place] [address] Performed By: #### 5 7021-8 ####[facility] LABCLIA [id number] [place] [address] [place] Basophils (Bld) [#/Vol] 0.00 10*3/uL Normal <0.11 [facility] Comment on above: Order Comment: Speci men Type: BLOOD SPECIMENOrdering Facility: [facility] Address: [address] [place] [address] Performed By: #### 5 7021-8 ####[facility] LABCLIA [id number] [place] [address] [place] Basophils/100 WBC (Bld) 0.0 % Normal [facility] Comment on above: Order Comment: Speci men Type: BLOOD SPECIMENOrdering Facility: [facility] Address: [address] [address] Performed By: #### 5 7021-8 ####[facility] LABCLIA [id number] [place] [address] [place] BLAST% 2.0 % High <=0.0 [facility] Comment on above: Order Comment: Speci men Type: BLOOD SPECIMENOrdering Facility: [facility] Address: [address] [place] [address] Performed By: #### 5 7021-8 ####[facility] LABCLIA [id number] [place] [address] [place] Differential cell count method Nom (Bld) Manual Normal [facility] Comment on above: Order Comment: Speci men Type: BLOOD SPECIMENOrdering Facility: [facility] Address: [address] [place] [address] Performed By: #### 5 7021-8 ####[facility] LABCLIA [id number] [place] [address] [place] Eosinophils (Bld) [#/Vol] 0.02 10*3/uL Normal <0.46 [facility] Comment on above: Order Comment: Speci men Type: BLOOD SPECIMENOrdering Facility: [facility] Address: [address] [place] [address] Performed By: #### 5 7021-8 ####[facility] LABCLIA [id number] [place] [address] [place] Eosinophils/100 WBC (Bld) 1.0 % Normal [facility] Comment on above: Order Comment: Speci men Type: BLOOD SPECIMENOrdering Facility: [facility] Address: [address] Performed By: #### 5 7021-8 ####[facility] LABCLIA [id number] [place] [address] [place] Erythrocyte distribution wid th (RBC) [Ratio] 20.5 % High 11.5-15.0 [facility] Comment on above: Order Comment: Speci men Type: BLOOD SPECIMENOrdering Facility: [facility] Address: [address] Performed By: #### 5 7021-8 ####[facility] LABIA [id number] [place] [address] [place] Hematocrit (Bld) [Volume fraction] 20.6 % Low 3 6.0-46.0 [facility] Comment on above: Order Comment: Speci men Type: BLOOD SPECIMENOrdering Facility: [facility] Address: [address] Performed By: #### 5 7021-8 ####[facility] LABIA [id number] [place] [address] [place] Hemoglobin (Bld) [Mass/Vol] 7.0 g/dL Low 11.5-15. 5 [facility] Comment on above: Order Comment: Speci men Type: BLOOD SPECIMENOrdering Facility: [facility] Address: [address] Performed By: #### 5 7021-8 ####[facility] LABCLIA [id number] [place] [address] [place] Lymphocytes (Bld) [#/Vol] 1.46 10*3/uL Normal 1.00-4.0 0 [facility] Comment on above: Order Comment: Speci men Type: BLOOD SPECIMENOrdering Facility: [facility] Address: [address] Performed By: #### 5 7021-8 ####[facility] LABCLIA [id number] [place] [address] [place] Lymphocytes/100 WBC (Bld) 87.0 % Normal [facility] Comment on above: Order Comment: Speci men Type: BLOOD SPECIMENOrdering Facility: [facility] Address: [address] [place] [address] Performed By: #### 5 7021-8 ####[facility] LABIA [id number] [address] [place] MCH (RBC) [Entitic mass] 33.0 pg Normal 26.0-34.0 [facility] Comment on above: Order Comment: Speci men Type: BLOOD SPECIMENOrdering Facility: [facility] Address: [address] [place] [address] Performed By: #### 5 7021-8 ####[facility] LABIA [id number] [address] [place] [facility] MCHC (RBC) [Mass/Vol] 34.0 g/dL Normal 30.5-36.0 [facility] Comment on above: Order Comment: Speci men Type: BLOOD SPECIMENOrdering Facility: [facility] Address: [address] [place], [place] [address] Performed By: #### 5 7021-8 ####[facility] LABIA [id number] [place] [address] [place] MCV (RBC) [Entitic vol] 97.2 fL Normal 80.0-100.0 C [facility] Comment on above: Order Comment: Speci men Type: BLOOD SPECIMENOrdering Facility: [facility] Address: [address] [place], [place] [address] Performed By: #### 5 7021-8 ####[facility] LABIA [id number] [address] [place] Monocytes (Bld) [#/Vol] 0.00 10*3/uL Normal <0.87 [facility] Comment on above: Order Comment: Speci men Type: BLOOD SPECIMENOrdering Facility: [facility] Address: [address] Performed By: #### 5 7021-8 ####[facility] LABCLIA [id number] [place] [address] [place] Monocytes/100 WBC (Bld) 0.0 % Normal [facility] Comment on above: Order Comment: Speci men Type: BLOOD SPECIMENOrdering Facility: [facility] Address: [address] Performed By: #### 5 7021-8 ####[facility] LABIA [id number] [place] [address] [place] Neutrophils (Bld) [#/Vol] 0.17 10*3/uL Low 1.45-7.5 0 [facility] Comment on above: Order Comment: Speci men Type: BLOOD SPECIMENOrdering Facility: [facility] Address: [address] Performed By: #### 5 7021-8 ####[facility] LABIA [id number] [place] [address] [place] Neutrophils/100 WBC (Bld) 10.0 % Normal [facility] Comment on above: Order Comment: Speci men Type: BLOOD SPECIMENOrdering Facility: [facility] Address: [address] Performed By: #### 5 7021-8 ####[facility] LABIA [id number] [place] [address] [place] Nucleated RBC (Bld) [#/Vol] 10*3/uL Normal <0.01 [facility] Comment on above: Order Comment: Speci men Type: BLOOD SPECIMENOrdering Facility: [facility] Address: [address] Performed By: #### 5 7021-8 ####[facility] LABCLIA [id number] [address] [place] Nucleated RBC/100 WBC (Bld) [Ratio] 0.0 /100 WBC Normal [facility] Comment on above: Order Comment: Speci men Type: BLOOD SPECIMENOrdering Facility: [facility] Address: [address] [place] [address] Performed By: #### 5 7021-8 ####[facility] LABCLIA [id number] [place] [address] [place] Ovalocytes LM Ql (Bld) Few Normal Cl [facility] Comment on above: Order Comment: Speci men Type: BLOOD SPECIMENOrdering Facility: [facility] Address: [address] [place] [address] Performed By: #### 5 7021-8 ####[facility] [id number] [place] [address] [place] Platelet mean volume (Bld) [Entitic vol] Normal [facility] Comment on above: Order Comment: Speci men Type: BLOOD SPECIMENOrdering Facility: [facility] Address: [address] [place] [address] Result Comment: Unab le to Report. Performed By: #### 5 7021-8 ####[facility] LABIA [id number] [place] [address] [place] Platelets (Bld) [#/Vol] 26 10*3/uL Low 150-400 C [facility] Comment on above: Order Comment: Speci men Type: BLOOD SPECIMENOrdering Facility: [facility] Address: [address] [place] [address] Result Comment: Resu lts checked and verified.No clot detected. Performed By: #### 5 7021-8 ####[facility] LABIA [id number] [address] [place] Platelets Estimate (Bld) [#/Vol] Decreased Normal [facility] Comment on above: Order Comment: Speci men Type: BLOOD SPECIMENOrdering Facility: [facility] Address: [address] Performed By: #### 5 7021-8 ####[facility] LABCLIA [id number] [place] [address] [place] Polychromasia LM Ql (Bld) Slight Normal [facility] Comment on above: Order Comment: Speci men Type: BLOOD SPECIMENOrdering Facility: [facility] Address: [address] Performed By: #### 5 7021-8 ####[facility] LABCLIA [id number] [place] [address] [place] RBC (Bld) [#/Vol] 2.12 10*6/uL Low 3.90-5.20 [facility] Comment on above: Order Comment: Speci men Type: BLOOD SPECIMENOrdering Facility: [facility] Address: [address] Performed By: #### 5 7021-8 ####[facility] LABCLIA [id number] [place] [address] [place] RBC FRAGMENTS Few Abnormal None Seen [facility] Comment on above: Order Comment: Speci men Type: BLOOD SPECIMENOrdering Facility: [facility] Address: [address] [place] [address] Performed By: #### 5 7021-8 ####[facility] LABCLIA [id number] [address] [place] RED CELL MORPH Reviewed: see result s of individual morphologies Normal [facility] Comment on above: Order Comment: Speci men Type: BLOOD SPECIMENOrdering Facility: [facility] Address: [address] Performed By: #### 5 7021-8 ####[facility] LABCLIA [id number] [place] [address] [place] WBC (Bld) [#/Vol] 1.68 10*3/uL Low 3.70-11.00 [facility] Comment on above: Order Comment: Speci men Type: BLOOD SPECIMENOrdering Facility: [facility] Address: [address] [place] [address] Result Comment: No c lot detected. Performed By: #### 5 7021-8 ####[facility] LABCLIA [id number] [place] [address] [place] CMV IgG Qnon 06-02-2023 CMV IGG QUAL Negative Normal Negative [facility] Comment on above: Order Comment: Speci men Type: BLOOD SPECIMENOrdering Facility: [facility] Address: [address] [place] [address] Result Comment: No s erological evidence of past exposure to Cytomegalovirus. Cannot exclude recent infection if the specimen collected within 4-6 weeks after infection. Performed By: #### 7 852-7 ####[facility] LABIA [id number] [place] [address] [place] CMV IgG SerPl-aCncon 023 CMV IgG Qn <0.20 Normal [facility] Comment on above: Order Comment: Speci men Type: BLOOD SPECIMENOrdering Facility: [facility] Address: [address] [place] [address] Result Comment: The magnitude of the measured result is not indicative of the amount of antibody present.U/mL values are interpreted as follows:Negative <0.6Equivocal 0.6 to <0.70Positive >=0.70 Performed By: #### 7 852-7 ####[facility] LABCLIA [id number] [place] [address] [place] Comprehensive metabolic 2000 panelon 06-02-2023 Albumin [Mass/Vol] 3.4 g/dL Low 3.9-4.[address] [facility] Comment on above: Order Comment: Speci men Type: BLOOD SPECIMENOrdering Facility: [facility] Address: [address] [place] [address] Performed By: #### 1 9123-9, 2777-1, 21998-1, 3084-1 ####[facility] LABCLIA [id number] [place] [address] [place] ALP [Catalytic activity/Vol] 58 U/L Normal 34-123 [facility] Comment on above: Order Comment: Speci men Type: BLOOD SPECIMENOrdering Facility: [facility] Address: [address] [place] [address] Performed By: #### 1 9123-9, 2777-1, 66965-4, 3084-1 ####[facility] LABCLIA [id number] [place] [address] [place] ALT [Catalytic activity/Vol] 15 U/L Normal 7-38 [facility] Comment on above: Order Comment: Speci men Type: BLOOD SPECIMENOrdering Facility: [facility] Address: [address] [place] [address] Performed By: #### 1 9123-9, 2777-1, 66083-4, 3084-1 ####[facility] LABCLIA [id number] [place] [address] [place] Anion gap [Moles/Vol] 11 mmol/L Normal 9-18 [facility] Comment on above: Order Comment: Speci men Type: BLOOD SPECIMENOrdering Facility: [facility] Address: [address] [place] [address] Performed By: #### 1 9123-9, 2777-1, 07356-7, 3084-1 ####[facility] LABCLIA [id number] [place] [address] [place] AST [Catalytic activity/Vol] 15 U/L Normal 13-35 [facility] Comment on above: Order Comment: Speci men Type: BLOOD SPECIMENOrdering Facility: [facility] Address: [address] [place] [address] Performed By: #### 1 9123-9, 2777-1, 94921-6, 3084-1 ####[facility] LABCLIA [id number] [place] [address] [place] Bilirubin [Mass/Vol] 0.3 mg/dL Normal 0.2-1.3 [facility] Comment on above: Order Comment: Speci men Type: BLOOD SPECIMENOrdering Facility: [facility] Address: [address] [place] [address] Performed By: #### 1 9123-9, 2777-1, 06516-3, 3083- ####[facility] LABCLIA [id number] [place] [address] [place] Calcium [Mass/Vol] 8.2 mg/dL Low 8.5-10.[address] [facility] Comment on above: Order Comment: Speci men Type: BLOOD SPECIMENOrdering Facility: [facility] Address: [address] [place] [address] Performed By: #### 1 9123-9, 2777-1, 42711-5, 3083- ####[facility] LABCLIA [id number] [place] [address] [place] Chloride [Moles/Vol] 107 mmol/L High 97-105 [facility] Comment on above: Order Comment: Speci men Type: BLOOD SPECIMENOrdering Facility: [facility] Address: [address] [place] [address] Performed By: #### 1 9123-9, 2777-1, 60339-1, 3084-1 ####[facility] LABCLIA [id number] [place] [address] [place] CO2 [Moles/Vol] 22 mmol/L Normal 22-30 [facility] Comment on above: Order Comment: Elvia escobar Type: BLOOD SPECIMENOrdering Facility: [facility] Address: [address] [place] [address] Performed By: #### 1 9123-9, 2777-1, 03588-8, 3083- ####[facility] LABCLIA [id number] [place] [address] [place] Creatinine [Mass/Vol] 0.96 mg/dL Normal 0.58-0.96 [facility] Comment on above: Order Comment: Elvia escobar Type: BLOOD SPECIMENOrdering Facility: [facility] Address: [address] [place] [address] Performed By: #### 1 9123-9, 277-1, 29599-7, 3083- ####[facility] LABIA [id number] [place] [address] [place] Creatinine and Glomerular filtration rate.predicted panel (S/P/Bld) 64 mL/min/1.73m??? Normal >=60 [facility] Comment on above: Order Comment: Elvia escobar Type: BLOOD SPECIMENOrdering Facility: [facility] Address: [address] [place] [address] Result Comment: Berenice mated Glomerular Filtration Rate (eGFR) is calculated using the 2020 CKD-EPI creatinine equation. This equation utilizes serum creatinine, sex, and age as parameters. The creatinine assay has traceable calibration to isotope dilution-mass spectrometry. Refer to KDIGO guidelines for clinical interpretation. In patients with unstable renal function, e.g. those with acute kidney injury, the eGFR may not accurately reflect actual GFR. Performed By: #### 1 9123-9, 2777-1, 41178-8, 3083- ####[facility] LABCLIA [id number] [place] [id number] [place] Glucose [Mass/Vol] 105 mg/dL High 74-[address] [facility] Comment on above: Order Comment: Speci men Type: BLOOD SPECIMENOrdering Facility: [facility] Address: [address] [place], [place] [address] Result Comment: The [place] Diabetes Association (ADA) provides guidance for cutoff values for fasting glucose and random glucose. The ADA defines fasting as no caloric intake for at least 8 hours. Fasting plasma glucose results between 100 to 125 mg/dL indicate increased risk for diabetes (prediabetes).Fasting plasma glucose results greater than or equal to 126 mg/dL meet the criteria for diagnosis of diabetes. In the absence of unequivocal hyperglycemia, results should be confirmed by repeat testing. In a patient with classic symptoms of hyperglycemia or hyperglycemic crisis, random plasma glucose results greater than or equal to 200 mg/dL meet the criteria for diagnosis of diabetes.Reference: Standards of Medical Care in Diabetes 2016, [place] [employer]. Diabetes Care. 2016.39(Suppl 1). Performed By: #### 1 9123-9, 2777-1, 98640-8, 3084-1 ####[facility] LABCLIA [id number] [place] [address] [place] Potassium [Moles/Vol] 3.3 mmol/L Low 3.7-5.1 [facility] Comment on above: Order Comment: Elvia escobar Type: BLOOD SPECIMENOrdering Facility: [facility] Address: [address] [place] [address] Performed By: #### 1 9123-9, 2777-1, 09325-6, 3084-1 ####[facility] LABCLIA [id number] [place] [address] [place] Protein [Mass/Vol] 5.4 g/dL Low 6.3-8.[address] [facility] Comment on above: Order Comment: Rochellei luz Type: BLOOD SPECIMENOrdering Facility: [facility] Address: [address] [place], [place] [address] Performed By: #### 1 9123-9, 2777-1, 70849-2, 3084-1 ####[facility] LABCLIA [id number] [place] [id number] [place] Sodium [Moles/Vol] 140 mmol/L Normal 136-[address] [facility] Comment on above: Order Comment: Speci men Type: BLOOD SPECIMENOrdering Facility: [facility] Address: [address] [place] [address] Performed By: #### 1 9123-9, 2777-1, 27152-2, 308-1 ####[facility] LABCLIA [id number] [place] [address] [place] Urea nitrogen [Mass/Vol] 13 mg/dL Normal 7-21 [facility] Comment on above: Order Comment: Speci men Type: BLOOD SPECIMENOrdering Facility: [facility] Address: [address] [place] [address] Performed By: #### 1 9123-9, 2777-1, 27628-1, 308-1 ####[facility] LABCLIA [id number] [place] [address] [place] Magnesium SerPl-mCncon 06-02 Magnesium [Mass/Vol] 2.0 mg/dL Normal 1.7-2.3 [facility] Comment on above: Order Comment: Speci men Type: BLOOD SPECIMENOrdering Facility: [facility] Address: [address] [place] [address] Performed By: #### 1 9123-9, 2777-1, 98063-8, 308-1 ####[facility] LABCLIA [id number] [place] [address] [place] Phosphate SerPl-mCncon 06-02 Phosphate [Mass/Vol] 3.8 mg/dL Normal 2.7-4.8 [facility] Comment on above: Order Comment: Speci men Type: BLOOD SPECIMENOrdering Facility: [facility] Address: [address] [place] [address] Performed By: #### 1 9123-9, 2777-1, 06237-5, 3084-1 ####[facility] LABCLIA [id number] [place] [address] [place] Urate SerPl-mCncon 3 Urate [Mass/Vol] 3.1 mg/dL Normal 2.5-6.6 [facility] Comment on above: Order Comment: Speci men Type: BLOOD SPECIMENOrdering Facility: [facility] Address: [address] [place] [address] Performed By: #### 1 9123-9, 2777-1, 63532-1, 3084-1 ####[facility] LABCLIA [id number] [address] OF [facility] ACUTE LEUKEMIA NGS PANEL, ZEENAT NE MARROWon 06-01-2023 ACUTE LEUK NGS PANEL, BONE MARROW Normal [facility] Comment on above: Order Comment: Speci men Type: BONE MARROW SPECIMENOrdering Facility: [facility] Address: [address] [place] [address] Result Comment: Acut e Leukemia NGS Panel, Bone MarrowLaboratory Accession Number: [id number]:Please see linked document and/or separate report for full result whenavailable.As reviewed by Zenia Mae, PhD, [facility] Performed By: #### H DMNGS, F3IM ####[facility] LIMSCLIA [id number] [address] [place] AML MRD BY FCon 06-01-2023 AML MRD BY FC View results in Scan talia Documents link when available. Normal [facility] Comment on above: Order Comment: Speci men Type: BONE MARROW SPECIMENOrdering Facility: [facility] Address: [address] [place] [address] Performed By: #### A MLMRD ####[facility] MOLECULAR MICROCLIA [id number] [place] [address] BONE MARROW ANALYSISon 06-01 ADDENDUM 1: [facility] Comment on above: Order Comment: Speci men Type: BONE MARROW SPECIMENOrdering Facility: [facility] Address: [address] [place] [address] Result Comment: Markus tional immunohistochemistry is performed to evaluate the B- cell rich lymphoid aggregates. The B-cells show no abnormal co-expression of CD5, LEF1, or cyclinD1. Bcl-2 stains the majority of the lymphocytes but does not show an abnormal intensity. BCL6 is negative.In summary, the lymphoid aggregates are considered to be reactive. There is no evidence of lymphoma.Note: Immunohistochemical stains were performed in addition to flow cytometry in this case to further characterize the hematolymphoid elements in the context of cell morphology and tissue architecture. Discrepancies between flow cytometric results and morphology can occur due to sampling differences, preferential loss of specific cell populations, or hemodilution.Addendum electronically signed by Janet Saba DO on 06/07/2023 at 3:24 PM Performed By: #### B MRT ####[facility] LABCLIA [id number] [address] [place] CASE REPORT Normal [facility] Comment on above: Order Comment: Elvia escobar Type: BONE MARROW SPECIMENOrdering Facility: [facility] Address: [address] [place] [address] Result Comment: Bone Marrow Pathology Report Case: [id number] Provider: Smith Hdez MD Collected: 06/01/2023 09:00 AMOrdering Location: [place] [address] Received: 06/01/2023 09:20 AMPathologist: Janet Saba, DOSpecimens: A) - BONE MARROW ASPIRATE RIGHT POSTERIOR ILIAC CREST B) - BONE MARROW BIOPSY RIGHT POSTERIOR ILIAC CREST C) - BONE MARROW CLOT RIGHT POSTERIOR ILIAC CREST D) - Peripheral blood smear Performed By: #### B MRT ####[facility] LABCLIA [id number] [address] DIAGNOSIS COMMENT Normal [facility] Comment on above: Order Comment: Elvia escobar Type: BONE MARROW SPECIMENOrdering Facility: [facility] Address: [address] [place] [address] Result Comment: The patient is 67 years old female with past medical history of breast cancer status post treatment and recent diagnosis of acute myeloid leukemia with complex cytogenetics. According to the clinical note on [facility], NGS showed mutation in RUNX1 (VAF 20.9%), TP53 (VAF 63.9%) and DNMT3A (VAF 34.4%). The treatment for the acute myeloid leukemia was not started yet on the day of bone marrow biopsy.The hypercellular bone marrow shows increased blasts (28% by manual count) and multilineage dysplasia. Flow cytometry on this bone marrow (MRD; send out) reported an increased CD34 positive myeloid blast population (~24%; see separate report).There are few small lymphoid aggregates, which are more B-cells than T-cells. Flow cytometry on this specimen shows no immunophenotypic evidence of lymphoprolfierative disorder (see flow report). Additional immunostains remain pending and will be reported as a separate addendum.Overall, the findings are consistent with the diagnosis of acute myeloid leukemia with mutated TP53, therapy related (ICC 2021). However, correlation with the clinical findings and the pending cytogenetic result is suggested.Laboratory Developed Test (LDT) Disclaimer:Performance characteristics of immunohistochemical, immunofluorescent and chromogenic in-situ hybridization tests have been determined by the performing laboratory within [facility]???s Aurelio Dominguez [facility] [place] [facility] [place] ([facility], [facility], [facility], [facility], [facility], [facility], or [facility]) in a manner consistent with CLIA requirements. One or more of these tests have not been cleared or approved by the FDA. [facility] is regulated under CLIA as qualified to perform high-complexity testing. These tests are used for clinical purposes. They should not be regarded as investigational or for research. Positive and negative controls stain appropriately. Performed By: #### B MRT ####[facility] LABCLIA [id number] [facility] [place] [address] [place] FINAL DIAGNOSIS Normal [facility] Comment on above: Order Comment: Speci men Type: BONE MARROW SPECIMENOrdering Facility: [facility] Address: [address] [place] [address] Result Comment: A-C: Bone marrow, aspirate smears, touch imprint, clot section and biopsy:- Acute myeloid leukemia.- Hypercellular marrow (50-60%) with trilineage hematopoiesis, granulocytic left shift, 28% blasts and multilineage dysplasia.- Few B-cell rich lymphoid aggregates.- See comment.D: Peripheral blood smear:- Pancytopenia with circulating blasts.HJR/AMENA 06/05/2023 Performed By: #### B MRT ####[facility] LABCLIA [id number] [address] FINAL PERFORMING LAB Normal [facility] Comment on above: Order Comment: Elvia escobar Type: BONE MARROW SPECIMENOrdering Facility: [facility] Address: [address] [place] [address] Result Comment: Diag nostic interpretation performed at [facility], [address] [place] [address] CLIA# [id number] Director: Boris Wood M.D. Performed By: #### B MRT ####[facility] LABIA [id number] [address] Order Comment: Elvia escobar Type: BONE MARROW SPECIMENOrdering Facility: [facility] Address: [address] [place] [address] Performed By: #### F CLLP, FCLLRFLX ####[facility] LABIA [id number] [address] GROSS DESCRIPTION Normal [facility] Comment on above: Order Comment: Elvia escobar Type: BONE MARROW SPECIMENOrdering Facility: [facility] Address: [address] [place] [address] Result Comment: A. B ONE MARROW ASPIRATE RIGHT POSTERIOR ILIAC CRESTReceived are air-dried bone marrow aspirate smears. Submitted for light microscopy.B. BONE MARROW BIOPSY RIGHT POSTERIOR ILIAC CRESTReceived in formalin is one segment of cylindrical tissue admixed with hemorrhagic material aggregating to 2.8 x 0.3 x 0.3 cm, red-brown and of a firm consistency. Totally submitted in formalin in one cassette after decalcification.C. BONE MARROW CLOT RIGHT POSTERIOR ILIAC CRESTReceived in formalin is a segment of red-brown hemorrhagic material measuring 2.0 x 1.5 x 0.7 cm. Totally submitted in one cassette.D. Peripheral blood smearReceived is a peripheral blood smear. Submitted for light microscopy.Gross examination performed at [facility], [address] June 01, 2023 7:34 PM Performed By: #### B MRT ####[facility] LABCLIA [id number] [place] [id number] [place] MICROSCOPIC DESCRIPTION Normal [facility] Comment on above: Order Comment: Speci men Type: BONE MARROW SPECIMENOrdering Facility: [facility] Address: [address] [place] [address] Result Comment: GENNY PHERAL BLOOD:CBC (06/01/2023 12:35 AM) Diff: ManualWBC 1.73 k/uL Neutrophils % 10Hemoglobin 6.6 g/dL Lymphocytes % 87MCV 101.1 fL Monocytes % 0RDW-CV 18.3 % Eosinophils % 10Platelet Count 10 k/uL Basophils % 0 Blasts % 2Morphology/Interpretation: Pancytopenia with circulating blasts. Microcytic red cells with anisopoikilocytosis. Few ovalocytes and teardrop cells seen.BONE MARROW ASPIRATE:Result Normal Range28 % Blasts 0-20 % Promyelocytes 1-518 % Myelos/Metas/Bands/Segs 32-721 % Eosinophils 1-60 % Basophils 0-12 % Monocytes 0-414 % Erythroid precursors 13- 3737 % Lymphocytes 7-230 % Plasma cells 0-2 Myeloid/Erythro (1.5-4): 3.5 cells counted: 500. Iron stain result: Cannot be evaluated due to absence of spicules. Ring sideroblasts are seen (<5%). Specimen Quality: Hemodiluted and aspicular aspirate. Megakaryocytes: Rare megakaryocytes seen on touch imprints. Hypolobated forms present. Erythropoiesis: Progressive maturation with dysplastic budding nuclei or irregular nuclear outlines. Granulopoiesis: Left shift with increased blasts. Hypogranular adhered and hypolobated neutrophils are seen. Other: The blasts are intermediate in size with scant to moderate amount of cytoplasm and fine chromatin with variably prominent nucleoli.BONE MARROW BIOPSY: Adequacy: Adequate. Cellularity: Increased (50-60%). ME ratio: Normal. Hematopoiesis: Trilineage maturation. Granulocytic left shift and increased blasts Megakaryocytes: Increased and clustered. Megakaryocyte morphology: Abnormal with small and hypolobated forms Lymphoid infiltrate: Few small lymphoid aggregates composed of small lymphocytes are seen. Bone trabeculae: Normal. Other: Blasts are increased in number.Immunohistochemical stains were performed at the [facility] with appropriate controls for further characterization of the process. CD34 highlights blasts occupying 30% of the total bone marrow cellularity. CD117 also stains few scattered mast cells and erythroid precurosrs. CD61 highlights increased abnormal and normal megakaryocytes. Lymphoid aggregates show more CD20 positive B cells than CD3 positive T cells. CD20 and CD3 also highlights background scattered B and T cells respectively.Immunostains for CD5, Bcl-2, BCL6, cyclin D1 and LEF1 are additionally requested and will be reported as a separate addendum.CLOT SECTION: Marrow particles: Many. Morphology: Similar to biopsy.ANCILLARY TESTS: Flow cytometry: Performed. AML MRD by flow cytometry (send out test). Cytogenetics: Pending. FISH: N/A. Molecular: FLT ITD assay. Buffy coat stored. Performed By: #### B MRT ####[facility] LABCLIA [id number] [place] [address] [place] BONE MARROW CHROMOSOME ANALo n 06-01-2023 CHROMOSOME BM Normal [facility] [place] Comment on above: Order Comment: Order ing Facility: [facility] Address: [address] [place] [address] Result Comment: Edel knight Accession Number: [id number]: Hortencia Hdezathologist: Beatrice Pathology No: [id number] diagnosis: AMLSpecimen Type: Bone MarrowReceived Date: 06/01/2023Number of cells counted: 20Number of cells analyzed: 20Number of cells karyotyped: 20Banding resolution: 400Banding method: G-bandingDIAGNOSIS: 44,XX,-5,add(7)(q32),-12,-16,+mar[4]/44,idem,nehemiah(1)add(1)(q22)inv(1)(p13q21),add (2)(q37),add(3)(q21),ad d(4)(q12),nehemiah(6)add(6)(p11.2)del(6)(q23q25),-add(7)(q32),add(7)(q11.2),-9,nehemiah(11 )t(1;11)(q21;q23),+mar[ 16]INTERPRETATION: Abnormal, female karyotypeCOMMENT: Ten metaphase cells were analyzed from the culturesupplemented with GM-CSF and ten metaphase cells were analyzed fromthe 24 hour unstimulated culture. All twenty cells were abnormal. Fourof these cells were characterized by a loss of one chromosome 5,additional material of unknown origin on the long arm of onechromosome 7 with the breakpoint estimated to be in 7q32, losses ofchromosomes 12, 16, and gain of a marker. In sixteen of these abnormalcells, there were characterized by both numerical and structuralrearrangements. The numerical changes included: losses of chromosomes5, 9, 12, 16, and gains of two markers. The structural changesincluded: a derivative chromosome 1 with additional material ofunknown origin on the long arm and a pericentric inversion, additionalmaterial of unknown origin on the long arm of one chromosome 2,additional material of unknown origin on the long arm of onechromosome 3, additional material of unknown origin on the long arm ofone chromosome 4, a derivative chromosome 6 with additional materialof unknown origin on the short arm and an interstitial deletion on thelong arm, additional material of unknown origin on the long arm of onechromosome 7 with the breakpoint estimated to be in 7q11.2, aderivative chromosome 11 consisting of an unbalanced translocationbetween the long arms of one chromosome 1 and one chromosome 11.These findings may be classified as both a monosomal karyotype(defined as the presence of at least 2 autosomal monosomies or asingle autosomal monosomy associated with at least one structuralabnormality) and a complex karyotype (defined as greater than or equalto 3 or more unrelated anomalies). In the context of acute myeloidleukemia, these findings often involving abnormalities of chromosomes5 and 7, are associated with a very poor prognosis.Clinical and pathologic correlation is recommended.As reviewed by Jovanny Hooper, PhD, FACMGPerformed by [facility] CampusPathology and Laboratory Medicine InstituteDivision of Molecular PathologyCytogenetics Lab, [facility]-[id number] [place], [place] [address]Phone: Toll free: Performed By: #### C [facility] ####[facility] LIMSCLIA [id number] [place] [address] [place] CBC W Auto Differential pane l (Bld)on 06-01-2023 Anisocytosis Ql (Bld) Present Normal [facility] Comment on above: Order Comment: Speci men Type: BLOOD SPECIMENOrdering Facility: [facility] Address: [address] [place] [address] Performed By: #### 5 7021-8 ####[facility] LABIA [id number] [place] [address] [place] Basophils (Bld) [#/Vol] 0.00 10*3/uL Normal <0.11 [facility] Comment on above: Order Comment: Speci men Type: BLOOD SPECIMENOrdering Facility: [facility] Address: [address] [address] Performed By: #### 5 7021-8 ####[facility] LABCLIA [id number] [address] [place] Basophils/100 WBC (Bld) 0.0 % Normal [facility] Comment on above: Order Comment: Speci men Type: BLOOD SPECIMENOrdering Facility: [facility] Address: [address] [place] [address] Performed By: #### 5 7021-8 ####[facility] LABCLIA [id number] [place] [address] [place] BLAST% 7.1 % High <=0.0 [facility] Comment on above: Order Comment: Speci men Type: BLOOD SPECIMENOrdering Facility: [facility] Address: [address] [place] [address] Performed By: #### 5 7021-8 ####[facility] LABCLIA [id number] [place] [address] [place] Differential cell count method Nom (Bld) Manual Normal [facility] Comment on above: Order Comment: Speci men Type: BLOOD SPECIMENOrdering Facility: [facility] Address: [address] [place] [address] Performed By: #### 5 7021-8 ####[facility] LABCLIA [id number] [place] [address] [place] Eosinophils (Bld) [#/Vol] 0.03 10*3/uL Normal <0.46 [facility] Comment on above: Order Comment: Speci men Type: BLOOD SPECIMENOrdering Facility: [facility] Address: [address] [place], [place] [address] Performed By: #### 5 7021-8 ####[facility] LABCLIA [id number] [place] [address] [place] Eosinophils/100 WBC (Bld) 1.8 % Normal [facility] Comment on above: Order Comment: Speci men Type: BLOOD SPECIMENOrdering Facility: [facility] Address: [address] [place], [place] [address] Performed By: #### 5 7021-8 ####[facility] LABCLIA [id number] [place] [address] [place] Erythrocyte distribution wid th (RBC) [Ratio] 18.3 % High 11.5-15.0 [facility] Comment on above: Order Comment: Speci men Type: BLOOD SPECIMENOrdering Facility: [facility] Address: [address] [place] [address] Performed By: #### 5 7021-8 ####[facility] LABIA [id number] [place] [address] [place] Hematocrit (Bld) [Volume fraction] 19.2 % Low 3 6.0-46.0 [facility] Comment on above: Order Comment: Speci men Type: BLOOD SPECIMENOrdering Facility: [facility] Address: [address] [place] [address] Performed By: #### 5 7021-8 ####[facility] LABIA [id number] [place] [address] [place] Hemoglobin (Bld) [Mass/Vol] 6.6 g/dL Low 11.5-15. 5 [facility] Comment on above: Order Comment: Speci men Type: BLOOD SPECIMENOrdering Facility: [facility] Address: [address] [place] [address] Performed By: #### 5 7021-8 ####[facility] LABIA [id number] [place] [address] [place] HYPOGRANULATED PMNS Present Normal [facility] Comment on above: Order Comment: Speci men Type: BLOOD SPECIMENOrdering Facility: [facility] Address: [address] [place] [address] Performed By: #### 5 7021-8 ####[facility] LABIA [id number] [place] [address] [place] Lymphocytes (Bld) [#/Vol] 1.33 10*3/uL Normal 1.00-4.0 0 [facility] Comment on above: Order Comment: Speci men Type: BLOOD SPECIMENOrdering Facility: [facility] Address: [address] [place] [address] Performed By: #### 5 7021-8 ####[facility] LABCLIA [id number] [address] [place] Lymphocytes/100 WBC (Bld) 76.8 % Normal [facility] Comment on above: Order Comment: Speci men Type: BLOOD SPECIMENOrdering Facility: [facility] Address: [address] [place] [address] Performed By: #### 5 7021-8 ####[facility] LABCLIA [id number] [address] [place] [facility] MCH (RBC) [Entitic mass] 34.7 pg High 26.0-34.0 [facility] Comment on above: Order Comment: Speci men Type: BLOOD SPECIMENOrdering Facility: [facility] Address: [address] [place] [address] Performed By: #### 5 7021-8 ####[facility] LABIA [id number] [address] [place] MCHC (RBC) [Mass/Vol] 34.4 g/dL Normal 30.5-36.0 [facility] Comment on above: Order Comment: Speci men Type: BLOOD SPECIMENOrdering Facility: [facility] Address: [address] [place], [place] [address] Performed By: #### 5 7021-8 ####[facility] LABIA [id number] [address] [place] MCV (RBC) [Entitic vol] 101.1 fL High 80.0-100.0 C [facility] Comment on above: Order Comment: Speci men Type: BLOOD SPECIMENOrdering Facility: [facility] Address: [address] [place], [place] [address] Performed By: #### 5 7021-8 ####[facility] LABCLIA [id number] [address] [place] Monocytes (Bld) [#/Vol] 0.00 10*3/uL Normal <0.87 [facility] Comment on above: Order Comment: Speci men Type: BLOOD SPECIMENOrdering Facility: [facility] Address: [address] [address] Performed By: #### 5 7021-8 ####[facility] LABCLIA [id number] [place] [address] [place] Monocytes/100 WBC (Bld) 0.0 % Normal [facility] Comment on above: Order Comment: Speci men Type: BLOOD SPECIMENOrdering Facility: [facility] Address: [address] Performed By: #### 5 7021-8 ####[facility] LABCLIA [id number] [place] [address] [place] MYELO% 0.9 % Normal [facility] Comment on above: Order Comment: Speci men Type: BLOOD SPECIMENOrdering Facility: [facility] Address: [address] Performed By: #### 5 7021-8 ####[facility] LABCLIA [id number] [place] [address] [place] Neutrophils (Bld) [#/Vol] 0.23 10*3/uL Low 1.45-7.5 0 [facility] Comment on above: Order Comment: Speci men Type: BLOOD SPECIMENOrdering Facility: [facility] Address: [address] Performed By: #### 5 7021-8 ####[facility] LABCLIA [id number] [address] [place] Neutrophils/100 WBC (Bld) 13.4 % Normal [facility] Comment on above: Order Comment: Speci men Type: BLOOD SPECIMENOrdering Facility: [facility] Address: [address] Performed By: #### 5 7021-8 ####[facility] LABCLIA [id number] [place] [address] [place] Nucleated RBC (Bld) [#/Vol] 10*3/uL Normal <0.01 [facility] Comment on above: Order Comment: Speci men Type: BLOOD SPECIMENOrdering Facility: [facility] Address: [address] [place] [address] Performed By: #### 5 7021-8 ####[facility] LABCLIA [id number] [place] [address] [place] Nucleated RBC/100 WBC (Bld) [Ratio] 0.0 /100 WBC Normal [facility] Comment on above: Order Comment: Speci men Type: BLOOD SPECIMENOrdering Facility: [facility] Address: [address] [place] [address] Performed By: #### 5 7021-8 ####[facility] LABCLIA [id number] [place] [address] [place] Ovalocytes LM Ql (Bld) Few Normal [facility] Comment on above: Order Comment: Speci men Type: BLOOD SPECIMENOrdering Facility: [facility] Address: [address] [place] [address] Performed By: #### 5 7021-8 ####[facility] LABCLIA [id number] [place] [address] [place] Platelet mean volume (Bld) [Entitic vol] Normal [facility] Comment on above: Order Comment: Speci men Type: BLOOD SPECIMENOrdering Facility: [facility] Address: [address] [place], [place] [address] Result Comment: Unab le to Report. Performed By: #### 5 7021-8 ####[facility] LABCLIA [id number] [place] [address] [place] Platelets (Bld) [#/Vol] 10 10*3/uL Low 150-400 C [facility] Comment on above: Order Comment: Speci men Type: BLOOD SPECIMENOrdering Facility: [facility] Address: [address] [address] Result Comment: Resu lts checked and verified.No clot detected. Performed By: #### 5 7021-8 ####[facility] LABCLIA [id number] [place] [address] [place] Platelets Estimate (Bld) [#/Vol] Decreased Normal [facility] Comment on above: Order Comment: Speci men Type: BLOOD SPECIMENOrdering Facility: [facility] Address: [address] [address] Performed By: #### 5 7021-8 ####[facility] LABCLIA [id number] [place] [address] [place] Polychromasia LM Ql (Bld) Slight Normal [facility] Comment on above: Order Comment: Speci men Type: BLOOD SPECIMENOrdering Facility: [facility] Address: [address] [address] Performed By: #### 5 7021-8 ####[facility] LABCLIA [id number] [place] [address] [place] RBC (Bld) [#/Vol] 1.90 10*6/uL Low 3.90-5.20 [facility] Comment on above: Order Comment: Speci men Type: BLOOD SPECIMENOrdering Facility: [facility] Address: [address] Performed By: #### 5 7021-8 ####[facility] LABCLIA [id number] [place] [address] [place] RBC FRAGMENTS Few Abnormal None Seen [facility] Comment on above: Order Comment: Speci men Type: BLOOD SPECIMENOrdering Facility: [facility] Address: [address] [address] Performed By: #### 5 7021-8 ####[facility] LABCLIA [id number] [place] [address] [place] RED CELL MORPH Reviewed: see result s of individual morphologies Normal [facility] Comment on above: Order Comment: Speci men Type: BLOOD SPECIMENOrdering Facility: [facility] Address: [address] [place] [address] Performed By: #### 5 7021-8 ####[facility] LABIA [id number] [place] [address] [place] WBC (Bld) [#/Vol] 1.73 10*3/uL Low 3.70-11.00 [facility] Comment on above: Order Comment: Speci men Type: BLOOD SPECIMENOrdering Facility: [facility] Address: [address] [place] [address] Performed By: #### 5 7021-8 ####[facility] LABNORTHEAST[facility] [id number] [address] [place] WBC Left Shift Ql (Bld) Present [facility] Comment on above: Order Comment: Speci men Type: BLOOD SPECIMENOrdering Facility: [facility] Address: [address] [place] [address] Performed By: #### 5 7021-8 ####[facility] [id number] [place] [address] [place] CONSULT PROGon 06-01-2023 CONSULT PROG Normal [facility] [place] [facility] BIOPSY BONE MARROW (HEMO) on 06-01-2023 CT BIOPSY BONE MARROW (HEMO) Normal [facility] Comprehensive metabolic 2000 panelon 06-01-2023 Albumin [Mass/Vol] 3.4 g/dL Low 3.9-4.[address] [facility] Comment on above: Order Comment: Speci men Type: BLOOD SPECIMENOrdering Facility: [facility] Address: [address] [place] [address] Performed By: #### 2 777-1, 01767-9, 3084-1, ####[facility] LABCLIA [id number] [place] [address] [place] ALP [Catalytic activity/Vol] 53 U/L Normal 34-123 [facility] Comment on above: Order Comment: Speci men Type: BLOOD SPECIMENOrdering Facility: [facility] Address: [address] [address] Performed By: #### 2 777-1, 20012-6, 3083-09, ####[facility] LABIA [id number] [place] [address] [place] ALT [Catalytic activity/Vol] 14 U/L Normal 7-38 [facility] Comment on above: Order Comment: Speci men Type: BLOOD SPECIMENOrdering Facility: [facility] Address: [address] [place] [address] Performed By: #### 2 777-1, 54895-1, 3083-09, ####[facility] LABIA [id number] [place] [address] [place] Anion gap [Moles/Vol] 11 mmol/L Normal 9-18 [facility] Comment on above: Order Comment: Speci men Type: BLOOD SPECIMENOrdering Facility: [facility] Address: [address] [place] [address] Performed By: #### 2 777-1, 48847-7, 3083-09, ####[facility] LABIA [id number] [address] [id number] [place] AST [Catalytic activity/Vol] 12 U/L Low 13-35 [facility] Comment on above: Order Comment: Speci men Type: BLOOD SPECIMENOrdering Facility: [facility] Address: [address] [place] [address] Performed By: #### 2 777-1, 00961-8, 3083-09, ####[facility] LABCLIA [id number] [place] [id number] [place] Bilirubin [Mass/Vol] 0.2 mg/dL Normal 0.2-1.3 [facility] Comment on above: Order Comment: Speci men Type: BLOOD SPECIMENOrdering Facility: [facility] Address: [address] [place], [place] [address] Performed By: #### 2 777-1, 66382-3, 3083-09, ####[facility] LABCLIA [id number] [place] [address] [place] Calcium [Mass/Vol] 8.7 mg/dL Normal 8.5-10.[address] [facility] Comment on above: Order Comment: Speci men Type: BLOOD SPECIMENOrdering Facility: [facility] Address: [address] [place], [place] [address] Performed By: #### 2 777-1, 62843-9, 3083-09, ####[facility] LABCLIA [id number] [place] [id number] [place] Chloride [Moles/Vol] 109 mmol/L High 97-105 [facility] Comment on above: Order Comment: Speci men Type: BLOOD SPECIMENOrdering Facility: [facility] Address: [address] [place] [address] Performed By: #### 2 777-1, 26162-5, 3083-09, ####[facility] LABCLIA [id number] [place] [id number] [place] CO2 [Moles/Vol] 21 mmol/L Low 22-30 [facility] Comment on above: Order Comment: Speci men Type: BLOOD SPECIMENOrdering Facility: [facility] Address: [address] [place], [place] [address] Performed By: #### 2 777-1, 95885-2, 3083-09, ####[facility] LABIA [id number] [place] [address] [place] Creatinine [Mass/Vol] 1.03 mg/dL High 0.58-0.96 [facility] Comment on above: Order Comment: Elvia escobar Type: BLOOD SPECIMENOrdering Facility: [facility] Address: [address] [address] Performed By: #### 2 777-1, 85158-5, 3083-09, ####[facility] LABIA [id number] [place] [address] [place] Creatinine and Glomerular filtration rate.predicted panel (S/P/Bld) 59 mL/min/1.73m??? Low >=60 [facility] Comment on above: Order Comment: Elvia escobar Type: BLOOD SPECIMENOrdering Facility: [facility] Address: [address] [place] [address] Result Comment: Berenice mated Glomerular Filtration Rate (eGFR) is calculated using the 2020 CKD-EPI creatinine equation. This equation utilizes serum creatinine, sex, and age as parameters. The creatinine assay has traceable calibration to isotope dilution-mass spectrometry. Refer to KDIGO guidelines for clinical interpretation. In patients with unstable renal function, e.g. those with acute kidney injury, the eGFR may not accurately reflect actual GFR. Performed By: #### 2 777-1, 79738-0, 3083-09, ####[facility] LABIA [id number] [place] [id number] [place] Glucose [Mass/Vol] 106 mg/dL High 74-[address] [facility] Comment on above: Order Comment: Elvia escobar Type: BLOOD SPECIMENOrdering Facility: [facility] Address: [address] [address] Result Comment: The [place] [employer] (ADA) provides guidance for cutoff values for fasting glucose and random glucose. The ADA defines fasting as no caloric intake for at least 8 hours. Fasting plasma glucose results between 100 to 125 mg/dL indicate increased risk for diabetes (prediabetes).Fasting plasma glucose results greater than or equal to 126 mg/dL meet the criteria for diagnosis of diabetes. In the absence of unequivocal hyperglycemia, results should be confirmed by repeat testing. In a patient with classic symptoms of hyperglycemia or hyperglycemic crisis, random plasma glucose results greater than or equal to 200 mg/dL meet the criteria for diagnosis of diabetes.Reference: Standards of Medical Care in Diabetes 2016, [place] [employer]. Diabetes Care. 2016.39(Suppl 1). Performed By: #### 2 777-1, 83255-6, 3084-1, ####[facility] LABIA [id number] [place] [address] [place] Potassium [Moles/Vol] 3.7 mmol/L Normal 3.7-5.1 [facility] Comment on above: Order Comment: Speci men Type: BLOOD SPECIMENOrdering Facility: [facility] Address: [address] [place] [address] Performed By: #### 2 777-1, 64750-9, 3083-09, ####[facility] [id number] [place] [address] [place] Protein [Mass/Vol] 5.4 g/dL Low 6.3-8.[address] [facility] Comment on above: Order Comment: Elvia escobar Type: BLOOD SPECIMENOrdering Facility: [facility] Address: [address] [place] [address] Performed By: #### 2 777-1, 51807-5, 30812-02, ####[facility] LABNORT[facility] [id number] [place] [address] [place] Sodium [Moles/Vol] 141 mmol/L Normal 136-[address] [facility] Comment on above: Order Comment: Speci men Type: BLOOD SPECIMENOrdering Facility: [facility] Address: [address] [address] Performed By: #### 2 777-1, 39678-6, 3084-1, 25148-5 ####[facility] LABCLIA [id number] [place] [address] [place] Urea nitrogen [Mass/Vol] 16 mg/dL Normal 7-21 [facility] Comment on above: Order Comment: Speci men Type: BLOOD SPECIMENOrdering Facility: [facility] Address: [address] [place] [address] Performed By: #### 2 777-1, 00915-4, 3084-1, 92083-6 ####[facility] LABCLIA [id number] [address] [place] DNA EXTRACTION BONE MARROW ( BUFFY COAT)on 06-01-2023 DNA EXTRACTION BONE MARROW (BUFFY COAT) Normal [facility] Comment on above: Order Comment: Speci men Type: BONE MARROW SPECIMENOrdering Facility: [facility] Address: [address] [place] [address] Result Comment: This specimen was received and successfully processed for future DNA purification should molecular testing be needed. Specimens will be available for 3 years from date of collection.To order testing on this specimen for [facility] patients, please place an [facility] order for DNA and RNA Clinical Testing ([id number]). To order testing for patients outside of the [facility] system, please request DNA and RNA for Clinical Testing, order code [id number].If additional paperwork is required for testing, please send completed forms via secure email to . Performed By: #### N UCBUF ####[facility] LIMSCLIA [id number] [place] [id number] [place] FLOW CYTOMETRY FOR LEUKEMIA/ LYMPHOMA (FCLL) PERFORMABLEon 06-01-2023 FLOW CYTOMETRY ORDER STATUS See Results in chart under F case ID Normal [facility] Comment on above: Order Comment: Speci men Type: BONE MARROW SPECIMENOrdering Facility: [facility] Address: [address] [place], [place] [address] Result Comment: Vero ected result: Previously reported as A bone marrow sample was received for potential flow cytometry studies. Following morphologic review, flow cytometric studies will be ordered by the hematopathologist if testing is indicated. on 06/01/2023 at9:31 AM EDT. Performed By: #### F CLLP, FCLLRFLX ####[facility] LABCLIA [id number] [address] OF [facility] FLOW CYTOMETRY FOR LEUKEMIA/ LYMPHOMA (FCLL) REFLEXon 06-01-[address] [facility] Comment on above: Order Comment: Elvia escobar Type: BONE MARROW SPECIMENOrdering Facility: [facility] Address: [address] [place] [address] Performed By: #### F CLLP, FCLLRFLX ####[facility] LABCLIA [id number] [address] FLOW CYTOMETRY RESULTS Normal [facility] Comment on above: Order Comment: Elvia men Type: BONE MARROW SPECIMENOrdering Facility: [facility] Address: [address] [address] Result Comment: Spec imen type: Bone marrow aspirateViability: 99%Morphology comments: See associated bone marrow biopsy report.Results:Marker Normal Cell Result (Lymph) Type CD2 T-cell Normal patternCD3 T-cell Normal patternCD4 T-cell subset Normal patternCD5 T-cell Normal patternCD7 T-cell Normal patternCD8 T-cell subset Normal dhfjifhUS31 B-cell Normal ehiekdrJL12 Myeloid Normal diwojypPU65/56 NK-cell Normal ywomkrfEV13 B-cell Normal dxgmxtvWT11 B-cell Normal imanpwiOM86 B-cell Normal zygfbifMT09 Hough-leukocyte Normal ykydwmdGD803 B-cell Normal xigbnjdYP113 B-cell Normal patternKappa/Lambda B-cell subset PolytypicTRBC1 T-cell Normal, polytypicFlow cytometric analysis of the bone marrow aspirate reveals that 13% of total events have the CD45 and light scatter properties of lymphocytes. The lymphocytes are composed of T-cells (91%, CD4:CD8 ratio = 3.2), NK cells (1%), and polytypic B- cells (8%). Performed By: #### F CLLP, FCLLRFLX ####[facility] LABCLIA [id number] [place] [address] [place] GROSS DESCRIPTION A. Bone Marrow Normal [facility] Comment on above: Order Comment: Specmaria eugenia escobar Type: BONE MARROW SPECIMENOrdering Facility: [facility] Address: [address] [place] [address] Result Comment: Rece ived 3 ml BM in heparin. Performed By: #### F CLLP, FCLLRFLX ####[facility] LABCLIA [id number] [address] [place] INTERPRETATION Normal [facility] Comment on above: Order Comment: Elvia escobar Type: BONE MARROW SPECIMENOrdering Facility: [facility] Address: [address] [place] [address] Result Comment: The lymphoproliferative disorder panel is performed on this bone marrow by flow cytometry. There is no immunophenotypic evidence of involvement by a lymphoproliferative disorder. Correlation with the clinical and bone marrow histopathologic findings is suggested. Performed By: #### F CLLJose, FCLLRFLX ####[facility] LABCLIA [id number] [address] [place] FLT3 ITD HN BONE MARROWon CLARITY SIGNOUT PATHOLOGIST [id number] Normal [facility] Comment on above: Order Comment: Elvia escobar Type: BONE MARROW SPECIMENOrdering Facility: [facility] Address: [address] [place] [address] Performed By: #### H DMNGS, F3IM ####[facility] LIMSCLIA [id number] [address] [place] FLT3 ITD HN PANEL BONE MARROW Normal [facility] Comment on above: Order Comment: Speci men Type: BONE MARROW SPECIMENOrdering Facility: [facility] Address: [address], [place] [address] Result Comment: FLT3 Internal Tandem Duplication (ITD) Mutation TestingLaboratory Accession Number: [id number] Internal Tandem Duplication (ITD) mutation: Not DetectedComment:FLT3/ITD is found in approx. 20-30% of adult patients and in approx.5-12% of infants and children with acute myeloid leukemia (AML).FLT3/ITD are most often associated with a normal karyotype, t(15;17),and t(6;9). FLT3/ITD is associated with leukocytosis and a poorprognosis in both children and adults. In cytogenetically normal AML,FLT3/ITD has been associated with a poor prognosis. FLT3 mutationstatus has been reported to change between diagnosis and relapse; thismay relate to the instability of FLT3 mutations.Methodology:DNA is isolated from the specimen provided. Regions of the EZE7buvuzaby kinase receptor gene are subjected to the polymerase chainreaction (PCR) using fluorescently labeled forward PCR primers. PCRproducts are analyzed by capillary gel electrophoresis for in- framelength mutations (ITD mutations). This assay can detect ITD mutantalleles which represent approx. 5-10% of the total alleles. The ITDratio is calculated as the area under the curve of the ITD signal tothe area under the curve of the wild type signal.Limitations:Due to the diversity of potential ITD mutations, standardizedcalibration material is not available and calculated ITD peak ratiosmay therefore not be directly comparable across laboratories. As PCRefficiency varies with the size of the insertion mutation, calculatedpeak ratios may not necessarily correlate with percentage of mutantalleles. ITD ratio information should be interpreted with caution, inconjunction with other cytogenetic and molecular findings to assessprognosis within myeloid neoplasms.References:1) Veda MP, Lisbeth P, Susie E, et al. Mutational landscapeof AML with normal cytogenetics: biological and clinical implications.Blood Rev.2013;27:13-22.2) Juan KRISHNA, Ros M, Aly ME, et al. Prognostic relevance ofintegrated genetic profiling in acute myeloid leukemia. N Engl J Med.2012 Mar 22;366 (12):1079-89.3) Sandra H, Dee E, Sharon Vaughan, et al. Diagnosis and mangement ofAML in adults: 2017 ELN recommendations from an international expertpanel. Blood [phone] (2017).Disclaimer:This test was developed and its performance characteristics determinedby [facility] [place] ([facility]). It has not been cleared or approved bythe FDA. [facility] is regulated under CLIA as certified to perform high-complexity testing. This test is used for clinical purposes. It shouldnot be regarded as investigational or for research.[place] [address]. [place] Number: [id number] reviewed by Leslye Ha MD, PhD Performed By: #### H DMNGS, F3 ####[facility] LIMSCLIA [id number] [address] [place] HISTORY PHYSICALon 3 HISTORY PHYSICAL Normal [facility] Magnesium SerPl-ncon 06-01 Magnesium [Mass/Vol] 2.1 mg/dL Normal 1.7-2.3 [facility] Comment on above: Order Comment: Speci men Type: BLOOD SPECIMENOrdering Facility: [facility] Address: [address] [place] [address] Performed By: #### 2 777-1, 74205-4, 3084-1, 71968-1 ####[facility] LABCLIA [id number] [address] [place] PT EDon 06-01-2023 PT ED Normal [facility] [place] Phosphate SerPl-mCncon 06-01 Phosphate [Mass/Vol] 4.4 mg/dL Normal 2.7-4.8 [facility] Comment on above: Order Comment: Speci men Type: BLOOD SPECIMENOrdering Facility: [facility] Address: [address] [place] [address] Performed By: #### 2 777-1, 20848-5, 308-1, 90131-3 ####[facility] LABCLIA [id number] [place] [address] [place] Urate SerPl-mCncon 3 Urate [Mass/Vol] 3.2 mg/dL Normal 2.5-6.6 [facility] Comment on above: Order Comment: Speci men Type: BLOOD SPECIMENOrdering Facility: [facility] Address: [address] [address] Performed By: #### 2 777-1, 89930-8, 3083-1, ####[facility] LABCLIA [id number] [place] [address] [place] ALLIED HEALTHon 05-31-2023 ALLIED HEALTH Normal [facility] CBC W Auto Differential pane l (Bld)on 05-31-2023 Anisocytosis Ql (Bld) Present Normal [facility] Comment on above: Order Comment: Speci men Type: BLOOD SPECIMENOrdering Facility: [facility] Address: [address] [address] Performed By: #### 5 7021-8 ####[facility] LABCLIA [id number] [place] [address] [place] Basophils (Bld) [#/Vol] 0.00 10*3/uL Normal <0.11 [facility] Comment on above: Order Comment: Speci men Type: BLOOD SPECIMENOrdering Facility: [facility] Address: [address] [address] Performed By: #### 5 7021-8 ####[facility] LABCLIA [id number] [place] [address] [place] Basophils/100 WBC (Bld) 0.0 % Normal [facility] Comment on above: Order Comment: Speci men Type: BLOOD SPECIMENOrdering Facility: [facility] Address: [address] Performed By: #### 5 7021-8 ####[facility] LABCLIA [id number] [place] [address] [place] BLAST% 1.8 % High <=0.0 [facility] Comment on above: Order Comment: Speci men Type: BLOOD SPECIMENOrdering Facility: [facility] Address: [address] Performed By: #### 5 7021-8 ####[facility] LABCLIA [id number] [place] [address] [place] Differential cell count method Nom (Bld) Manual Normal [facility] Comment on above: Order Comment: Speci men Type: BLOOD SPECIMENOrdering Facility: [facility] Address: [address] Performed By: #### 5 7021-8 ####[facility] LABCLIA [id number] [place] [address] [place] Eosinophils (Bld) [#/Vol] 0.06 10*3/uL Normal <0.46 [facility] Comment on above: Order Comment: Speci men Type: BLOOD SPECIMENOrdering Facility: [facility] Address: [address] Performed By: #### 5 7021-8 ####[facility] LABCLIA [id number] [place] [address] [place] Eosinophils/100 WBC (Bld) 3.5 % Normal [facility] Comment on above: Order Comment: Speci men Type: BLOOD SPECIMENOrdering Facility: [facility] Address: [address] Performed By: #### 5 7021-8 ####[facility] LABCLIA [id number] [place] [id number] [place] Erythrocyte distribution wid th (RBC) [Ratio] 17.7 % High 11.5-15.0 [facility] Comment on above: Order Comment: Speci men Type: BLOOD SPECIMENOrdering Facility: [facility] Address: [address] [place] [address] Performed By: #### 5 7021-8 ####[facility] LABIA [id number] [place] [address] [place] Hematocrit (Bld) [Volume fraction] 21.1 % Low 3 6.0-46.0 [facility] Comment on above: Order Comment: Speci men Type: BLOOD SPECIMENOrdering Facility: [facility] Address: [address] [place] [address] Performed By: #### 5 7021-8 ####[facility] LABIA [id number] [place] [address] [place] Hemoglobin (Bld) [Mass/Vol] 7.2 g/dL Low 11.5-15. 5 [facility] Comment on above: Order Comment: Speci men Type: BLOOD SPECIMENOrdering Facility: [facility] Address: [address] [place] [address] Performed By: #### 5 7021-8 ####[facility] LABIA [id number] [place] [address] [place] HYPOGRANULATED PMNS Present Normal [facility] Comment on above: Order Comment: Speci men Type: BLOOD SPECIMENOrdering Facility: [facility] Address: [address] [place] [address] Performed By: #### 5 7021-8 ####[facility] LABIA [id number] [place] [address] [place] Lymphocytes (Bld) [#/Vol] 1.43 10*3/uL Normal 1.00-4.0 0 [facility] Comment on above: Order Comment: Speci men Type: BLOOD SPECIMENOrdering Facility: [facility] Address: [address] Performed By: #### 5 7021-8 ####[facility] LABCLIA [id number] [address] STATES [facility] Lymphocytes/100 WBC (Bld) 85.9 % Normal [facility] Comment on above: Order Comment: Speci men Type: BLOOD SPECIMENOrdering Facility: [facility] Address: [address] Performed By: #### 5 7021-8 ####[facility] LABCLIA [id number] [place] [address] [place] MCH (RBC) [Entitic mass] 34.0 pg Normal 26.0-34.0 [facility] Comment on above: Order Comment: Speci men Type: BLOOD SPECIMENOrdering Facility: [facility] Address: [address] [place], [place] [address] Performed By: #### 5 7021-8 ####[facility] LABCLIA [id number] [address] [place] MCHC (RBC) [Mass/Vol] 34.1 g/dL Normal 30.5-36.0 [facility] Comment on above: Order Comment: Speci men Type: BLOOD SPECIMENOrdering Facility: [facility] Address: [address] [place] [address] Performed By: #### 5 7021-8 ####[facility] LABCLIA [id number] [place] [address] [place] MCV (RBC) [Entitic vol] 99.5 fL Normal 80.0-100.0 C [facility] Comment on above: Order Comment: Speci men Type: BLOOD SPECIMENOrdering Facility: [facility] Address: [address] [place], [place] [address] Performed By: #### 5 7021-8 ####[facility] LABCLIA [id number] [place] [address] [place] Monocytes (Bld) [#/Vol] 0.00 10*3/uL Normal <0.87 [facility] Comment on above: Order Comment: Speci men Type: BLOOD SPECIMENOrdering Facility: [facility] Address: [address] [place] [address] Performed By: #### 5 7021-8 ####[facility] LABCLIA [id number] [place] [address] [place] Monocytes/100 WBC (Bld) 0.0 % Normal [facility] Comment on above: Order Comment: Speci men Type: BLOOD SPECIMENOrdering Facility: [facility] Address: [address] [place] [address] Performed By: #### 5 7021-8 ####[facility] LABCLIA [id number] [place] [address] [place] Neutrophils (Bld) [#/Vol] 0.15 10*3/uL Low 1.45-7.5 0 [facility] Comment on above: Order Comment: Speci men Type: BLOOD SPECIMENOrdering Facility: [facility] Address: [address] [place], [place] [address] Performed By: #### 5 7021-8 ####[facility] LABIA [id number] [place] [address] [place] Neutrophils/100 WBC (Bld) 8.8 % Normal [facility] Comment on above: Order Comment: Speci men Type: BLOOD SPECIMENOrdering Facility: [facility] Address: [address] [place], [place] [address] Performed By: #### 5 7021-8 ####[facility] LABCLIA [id number] [place] [address] [place] Nucleated RBC (Bld) [#/Vol] 0.01 10*3/uL High <0.01 [facility] Comment on above: Order Comment: Speci men Type: BLOOD SPECIMENOrdering Facility: [facility] Address: [address] Performed By: #### 5 7021-8 ####[facility] LABIA [id number] [address] [place] Nucleated RBC/100 WBC (Bld) [Ratio] 0.9 /100 WBC Normal [facility] Comment on above: Order Comment: Speci men Type: BLOOD SPECIMENOrdering Facility: [facility] Address: [address] [place] [address] Performed By: #### 5 7021-8 ####[facility] LABIA [id number] [place] [address] [place] Ovalocytes LM Ql (Bld) Few Normal Cl [facility] Comment on above: Order Comment: Speci men Type: BLOOD SPECIMENOrdering Facility: [facility] Address: [address] [place], [place] [address] Performed By: #### 5 7021-8 ####[facility] LABIA [id number] [place] [address] [place] Platelet mean volume (Bld) [Entitic vol] Normal [facility] Comment on above: Order Comment: Speci men Type: BLOOD SPECIMENOrdering Facility: [facility] Address: [address] [place], [place] [address] Result Comment: Unab le to Report. Performed By: #### 5 7021-8 ####[facility] LABIA [id number] [place] [address] [place] Platelets (Bld) [#/Vol] 13 10*3/uL Low 150-400 C [facility] Comment on above: Order Comment: Speci men Type: BLOOD SPECIMENOrdering Facility: [facility] Address: [address] [place], [place] [address] Result Comment: No c lot detected.Results checked and verified. Performed By: #### 5 7021-8 ####[facility] LABCLIA [id number] [place] [address] [place] Platelets Estimate (Bld) [#/Vol] Decreased Normal [facility] Comment on above: Order Comment: Speci men Type: BLOOD SPECIMENOrdering Facility: [facility] Address: [address] [place] [address] Performed By: #### 5 7021-8 ####[facility] LABCLIA [id number] [place] [address] [place] Polychromasia LM Ql (Bld) Slight Normal [facility] Comment on above: Order Comment: Speci men Type: BLOOD SPECIMENOrdering Facility: [facility] Address: [address] [place] [address] Performed By: #### 5 7021-8 ####[facility] LABCLIA [id number] [place] [address] [place] RBC (Bld) [#/Vol] 2.12 10*6/uL Low 3.90-5.20 [facility] Comment on above: Order Comment: Speci men Type: BLOOD SPECIMENOrdering Facility: [facility] Address: [address] [place], [place] [address] Performed By: #### 5 7021-8 ####[facility] LABIA [id number] [place] [address] [place] RBC FRAGMENTS Few Abnormal None [facility] [place] Comment on above: Order Comment: Speci men Type: BLOOD SPECIMENOrdering Facility: [facility] Address: [address] [place], [place] [address] Performed By: #### 5 7021-8 ####[facility] LABCLIA [id number] [place] [address] [place] RED CELL MORPH Reviewed: see result s of individual morphologies Normal [facility] Comment on above: Order Comment: Speci men Type: BLOOD SPECIMENOrdering Facility: [facility] Address: [address] [address] Performed By: #### 5 7021-8 ####[facility] LABCLIA [id number] [place] [address] [place] WBC (Bld) [#/Vol] 1.66 10*3/uL Low 3.70-11.00 [facility] Comment on above: Order Comment: Speci men Type: BLOOD SPECIMENOrdering Facility: [facility] Address: [address] [address] Result Comment: No c lot detected. Performed By: #### 5 7021-8 ####[facility] LABCLIA [id number] [place] [address] [place] CNPNon 05-31-2023 CNPN Normal [facility] [place] CONSULT PROGon 05-31-2023 CONSULT PROG Normal [place] [facility] metabolic 2000 panelon 05-31-2023 Albumin [Mass/Vol] 3.5 g/dL Low 3.9-4.[address] [facility] Comment on above: Order Comment: Speci men Type: BLOOD SPECIMENOrdering Facility: [facility] Address: [address] [address] Performed By: #### 2 4323-8, 84478-6, 3084-1, 2777-1 ####[facility] LABCLIA [id number] [place] [address] [place] ALP [Catalytic activity/Vol] 53 U/L Normal 34-123 [facility] Comment on above: Order Comment: Speci men Type: BLOOD SPECIMENOrdering Facility: [facility] Address: [address] [address] Performed By: #### 2 4323-8, 56987-7, 3084-1, 2777-1 ####[facility] LABCLIA [id number] [place] [address] [place] ALT [Catalytic activity/Vol] 17 U/L Normal 7-38 [facility] Comment on above: Order Comment: Speci men Type: BLOOD SPECIMENOrdering Facility: [facility] Address: [address] [place] [address] Performed By: #### 2 4323-8, 78596-4, 308-1, 277-1 ####[facility] LABCLIA [id number] [place] [address] [place] Anion gap [Moles/Vol] 10 mmol/L Normal 9-18 [facility] Comment on above: Order Comment: Speci men Type: BLOOD SPECIMENOrdering Facility: [facility] Address: [address] [place] [address] Performed By: #### 2 4323-8, 03838-1, 3083-, 2776- ####[facility] LABCLIA [id number] [place] [address] [place] AST [Catalytic activity/Vol] 16 U/L Normal 13-35 [facility] Comment on above: Order Comment: Speci men Type: BLOOD SPECIMENOrdering Facility: [facility] Address: [address] [place] [address] Performed By: #### 2 4323-8, 14020-5, 3083-, 277- ####[facility] LABCLIA [id number] [place] [address] [place] Bilirubin [Mass/Vol] 0.3 mg/dL Normal 0.2-1.3 [facility] Comment on above: Order Comment: Speci men Type: BLOOD SPECIMENOrdering Facility: [facility] Address: [address] [place] [address] Performed By: #### 2 4323-8, 05530-9, 3083-1, 277-1 ####[facility] LABCLIA [id number] [address] [address] [place] Calcium [Mass/Vol] 9.2 mg/dL Normal 8.5-10.[address] [facility] Comment on above: Order Comment: Speci men Type: BLOOD SPECIMENOrdering Facility: [facility] Address: [address] [place] [address] Performed By: #### 2 4323-8, 17763-4, 3083-, 277-1 ####[facility] LABCLIA [id number] [place] [address] [place] Chloride [Moles/Vol] 108 mmol/L High 97-105 [facility] Comment on above: Order Comment: Speci men Type: BLOOD SPECIMENOrdering Facility: [facility] Address: [address] [place] [address] Performed By: #### 2 4323-8, , 3083-, 277- ####[facility] LABCLIA [id number] [place] [address] [place] CO2 [Moles/Vol] 23 mmol/L Normal 22-30 [facility] Comment on above: Order Comment: Speci men Type: BLOOD SPECIMENOrdering Facility: [facility] Address: [address] [place] [address] Performed By: #### 2 4323-8, 50202-5, 3083-09, 277- ####[facility] LABCLIA [id number] [address] [address] [place] Creatinine [Mass/Vol] 0.96 mg/dL Normal 0.58-0.96 [facility] Comment on above: Order Comment: Speci men Type: BLOOD SPECIMENOrdering Facility: [facility] Address: [address] [place] [address] Performed By: #### 2 4323-8, 85445-5, 3083-1, 277-1 ####[facility] LABCLIA [id number] [place] [address] [place] Creatinine and Glomerular filtration rate.predicted panel (S/P/Bld) 64 mL/min/1.73m??? Normal >=60 [facility] Comment on above: Order Comment: Elvia escobar Type: BLOOD SPECIMENOrdering Facility: [facility] Address: [address] [address] Result Comment: Berenice mated Glomerular Filtration Rate (eGFR) is calculated using the 2020 CKD-EPI creatinine equation. This equation utilizes serum creatinine, sex, and age as parameters. The creatinine assay has traceable calibration to isotope dilution-mass spectrometry. Refer to KDIGO guidelines for clinical interpretation. In patients with unstable renal function, e.g. those with acute kidney injury, the eGFR may not accurately reflect actual GFR. Performed By: #### 2 4323-8, 22630-8, 3084-1, 2777-1 ####[facility] [id number] [place] [address] [place] Glucose [Mass/Vol] 106 mg/dL High 74-[address] [facility] Comment on above: Order Comment: Elvia escobar Type: BLOOD SPECIMENOrdering Facility: [facility] Address: [address] [place] [address] Result Comment: The [place] [employer] (ADA) provides guidance for cutoff values for fasting glucose and random glucose. The ADA defines fasting as no caloric intake for at least 8 hours. Fasting plasma glucose results between 100 to 125 mg/dL indicate increased risk for diabetes (prediabetes).Fasting plasma glucose results greater than or equal to 126 mg/dL meet the criteria for diagnosis of diabetes. In the absence of unequivocal hyperglycemia, results should be confirmed by repeat testing. In a patient with classic symptoms of hyperglycemia or hyperglycemic crisis, random plasma glucose results greater than or equal to 200 mg/dL meet the criteria for diagnosis of diabetes.Reference: Standards of Medical Care in Diabetes 2016, [place] [employer]. Diabetes Care. 2016.39(Suppl 1). Performed By: #### 2 4323-8, 71305-2, 3084-1, 2777-1 ####[facility] LABCLIA [id number] [address] [address] [place] Potassium [Moles/Vol] 4.0 mmol/L Normal 3.7-5.1 [facility] Comment on above: Order Comment: Speci men Type: BLOOD SPECIMENOrdering Facility: [facility] Address: [address] [place] [address] Performed By: #### 2 4323-8, 69463-8, 3083-1, 2776-1 ####[facility] LABCLIA [id number] [place] [address] [place] Protein [Mass/Vol] 5.7 g/dL Low 6.3-8.[address] [facility] Comment on above: Order Comment: Speci men Type: BLOOD SPECIMENOrdering Facility: [facility] Address: [address] [place] [address] Performed By: #### 2 4323-8, 07684-6, 3083-, 277-1 ####[facility] LABIA [id number] [place] [address] [place] Sodium [Moles/Vol] 141 mmol/L Normal 136-[address] [facility] Comment on above: Order Comment: Speci men Type: BLOOD SPECIMENOrdering Facility: [facility] Address: [address] [place] [address] Performed By: #### 2 4323-8, 85134-5, 308-1, 277- ####[facility] LABIA [id number] [address] [address] [place] Urea nitrogen [Mass/Vol] 13 mg/dL Normal 7-21 [facility] Comment on above: Order Comment: Speci men Type: BLOOD SPECIMENOrdering Facility: [facility] Address: [address] [place] [address] Performed By: #### 2 4323-8, 60793-9, 308-1, 277-1 ####[facility] LABCLIA [id number] [place] [id number] [place] Magnesium SerPl-mCncon 05-31 Magnesium [Mass/Vol] 2.1 mg/dL Normal 1.7-2.3 [facility] Comment on above: Order Comment: Speci men Type: BLOOD SPECIMENOrdering Facility: [facility] Address: [address] [place] [address] Performed By: #### 2 4323-8, 77461-5, 3084-1, 2777-1 ####[facility] LABCLIA [id number] [place] [address] [place] PT EDon 05-31-2023 PT ED Normal [facility] PT panel Coag (PPP)on 2022 INR Coag (PPP) [Relative time] 1.1 {INR} Normal 0.9-1 .3 [facility] Comment on above: Order Comment: Speci men Type: BLOOD SPECIMENOrdering Facility: [facility] Address: [address] [place] [address] Result Comment: Rajwinder min K Antagonist (VKA) Therapeutic Range: INR 2 to 3 (Target INR of 2.5)Note: For patients treated with VKA drugs, such as warfarin, the [place] [employer] 2012 Guideline recommends a therapeutic INR range of 2 to 3 (target INR of 2.5). This recommendation includes high-risk patients with antiphospholipid syndrome with previous arterial or venous thromboembolism, current-generation mechanical or bioprosthetic aortic heart valve replacement.Note: Patients with mechanical aortic valve replacement and additional risk factors for thromboembolic events (atrial fibrillation, previous thromboembolism, LV dysfunction, hypercoagulable conditions) or an older generation mechanical AVR (i.e., ball in-Cage) or any mechanical MVR should have a INR therapeutic range of 2.5 to 3.5 (target INR of 3).Beltran CASTELLANOS, et al. Chest 2012, 141:7S-47SMargo RA, et al. JACC 2017, 70: 252-289 Performed By: #### 3 4528-0 ####[facility] LABCLIA [id number] [place] [address] [place] PT Coag (PPP) [Time] 11.3 s Normal 9.7-13.0 [facility] Comment on above: Order Comment: Speci men Type: BLOOD SPECIMENOrdering Facility: [facility] Address: [address] [place] [address] Performed By: #### 3 4528-0 ####[facility] LABCLIA [id number] [place] [address] [place] Phosphate SerPl-mCncon 05-31 Phosphate [Mass/Vol] 4.0 mg/dL Normal 2.7-4.8 [facility] Comment on above: Order Comment: Speci men Type: BLOOD SPECIMENOrdering Facility: [facility] Address: [address] [place] [address] Performed By: #### 2 4323-8, 27088-2, 3084-1, 2777-1 ####[facility] LABCLIA [id number] [place] [address] [place] SOCIAL WORKon 05-31-2023 SOCIAL WORK Normal [place] [facility] [place] TYPE + SCREENon 05-31-2023 ABO O Normal [facility] Comment on above: Order Comment: Speci men Type: BLOOD SPECIMENOrdering Facility: [facility] Address: [address] [place] [address] Performed By: #### T SCR ####[facility] BLOOD BANKIA [id number] [place] [address] [place] HISTORICAL AB SCR STATUS Negative Normal [facility] Comment on above: Order Comment: Speci men Type: BLOOD SPECIMENOrdering Facility: [facility] Address: [address] [place] [address] Performed By: #### T SCR ####[facility] BLOOD BANKIA [id number] [place] [address] [place] Rh Nom (Bld) Positive [facility] [place] [facility] Comment on above: Order Comment: Speci men Type: BLOOD SPECIMENOrdering Facility: [facility] Address: [address] [place] [address] Performed By: #### T SCR ####[facility] BLOOD BANKCLIA [id number] [address] STATES OF [facility] TYPE AND SCREEN EXPIRATION 06/03/2023 23:59 Normal [facility] Comment on above: Order Comment: Speci men Type: BLOOD SPECIMENOrdering Facility: [facility] Address: [address] [place] [address] Performed By: #### T SCR ####[facility] BLOOD BANKCLIA [id number] [place] [address] [place] Urate SerPl-ncon Urate [Mass/Vol] 2.4 mg/dL Low 2.5-6.6 [facility] Comment on above: Order Comment: Speci men Type: BLOOD SPECIMENOrdering Facility: [facility] Address: [address] [place] [address] Performed By: #### 2 4323-8, 50852-1, 3084-1, 2777-1 ####[facility] LABCLIA [id number] [place] [address] [place] Vancomycin [place] SerPl-mCncon 05-31-2023 Vancomycin random [Mass/Vol] 19.2 ug/mL Normal 10.0-20 .0 [facility] Comment on above: Order Comment: Speci men Type: BLOOD SPECIMENOrdering Facility: [facility] Address: [address] [place] [address] Result Comment: Refe rence ranges and high/low indicator flags are provided as general guidelines only. The treating physician must determine appropriate target levels/dosing based on the specific clinical situation. Performed By: #### 4 091-5 ####[facility] LABCLIA [id number] [place] [address] [place] XR CHEST 1V PORT POST PICC - NBon 05-31-2023 XR CHEST 1V PORT POST PICC -NB Normal [facility] CBC W Auto Differential pane l (Bld)on 05-30-2023 Anisocytosis Ql (Bld) Present Normal [facility] Comment on above: Order Comment: Speci men Type: BLOOD SPECIMENOrdering Facility: [facility] Address: [address] [place] [address] Performed By: #### 5 7021-8 ####[facility] LABCLIA [id number] [place] [address] [place] Basophils (Bld) [#/Vol] 0.00 10*3/uL Normal <0.11 [facility] Comment on above: Order Comment: Speci men Type: BLOOD SPECIMENOrdering Facility: [facility] Address: [address] [place] [address] Performed By: #### 5 7021-8 ####[facility] LABCLIA [id number] [place] [address] [place] Basophils/100 WBC (Bld) 0.0 % Normal [facility] Comment on above: Order Comment: Speci men Type: BLOOD SPECIMENOrdering Facility: [facility] Address: [address] Performed By: #### 5 7021-8 ####[facility] LABCLIA [id number] [place] [address] [place] BLAST% 2.3 % High <=0.0 [facility] Comment on above: Order Comment: Speci men Type: BLOOD SPECIMENOrdering Facility: [facility] Address: [address] Performed By: #### 5 7021-8 ####[facility] LABCLIA [id number] [place] [address] [place] Differential cell count method Nom (Bld) Manual Normal [facility] Comment on above: Order Comment: Speci men Type: BLOOD SPECIMENOrdering Facility: [facility] Address: [address] [place] [address] Performed By: #### 5 7021-8 ####[facility] LABCLIA [id number] [place] [address] [place] Eosinophils (Bld) [#/Vol] 0.01 10*3/uL Normal <0.46 [facility] Comment on above: Order Comment: Speci men Type: BLOOD SPECIMENOrdering Facility: [facility] Address: [address] [place] [address] Performed By: #### 5 7021-8 ####[facility] LABIA [id number] [place] [address] [place] Eosinophils/100 WBC (Bld) 0.6 % Normal [facility] Comment on above: Order Comment: Speci men Type: BLOOD SPECIMENOrdering Facility: [facility] Address: [address] [place] [address] Performed By: #### 5 7021-8 ####[facility] LABIA [id number] [place] [address] [place] Erythrocyte distribution wid th (RBC) [Ratio] 17.8 % High 11.5-15.0 [facility] Comment on above: Order Comment: Speci men Type: BLOOD SPECIMENOrdering Facility: [facility] Address: [address] [place], [place] [address] Performed By: #### 5 7021-8 ####[facility] LABCLIA [id number] [place] [address] [place] Hematocrit (Bld) [Volume fraction] 20.9 % Low 3 6.0-46.0 [facility] Comment on above: Order Comment: Speci men Type: BLOOD SPECIMENOrdering Facility: [facility] Address: [address] Performed By: #### 5 7021-8 ####[facility] LABCLIA [id number] [place] [address] [place] Hemoglobin (Bld) [Mass/Vol] 7.1 g/dL Low 11.5-15. 5 [facility] Comment on above: Order Comment: Speci men Type: BLOOD SPECIMENOrdering Facility: [facility] Address: [address] [place], [place] [address] Performed By: #### 5 7021-8 ####[facility] LABCLIA [id number] [place] [address] [place] Lymphocytes (Bld) [#/Vol] 1.29 10*3/uL Normal 1.00-4.0 0 [facility] Comment on above: Order Comment: Speci men Type: BLOOD SPECIMENOrdering Facility: [facility] Address: [address] [place], [place] [address] Performed By: #### 5 7021-8 ####[facility] LABCLIA [id number] [place] [address] [place] Lymphocytes/100 WBC (Bld) 77.2 % Normal [facility] Comment on above: Order Comment: Speci men Type: BLOOD SPECIMENOrdering Facility: [facility] Address: [address] [place] [address] Performed By: #### 5 7021-8 ####[facility] LABCLIA [id number] [place] [address] [place] MCH (RBC) [Entitic mass] 33.5 pg Normal 26.0-34.0 [facility] Comment on above: Order Comment: Speci men Type: BLOOD SPECIMENOrdering Facility: [facility] Address: [address] [place], [place] [address] Performed By: #### 5 7021-8 ####[facility] LABCLIA [id number] [place] [address] [place] MCHC (RBC) [Mass/Vol] 34.0 g/dL Normal 30.5-36.0 [facility] Comment on above: Order Comment: Speci men Type: BLOOD SPECIMENOrdering Facility: [facility] Address: [address] [place], [place] [address] Performed By: #### 5 7021-8 ####[facility] LABCLIA [id number] [place] [address] [place] MCV (RBC) [Entitic vol] 98.6 fL Normal 80.0-100.0 [facility] Comment on above: Order Comment: Speci men Type: BLOOD SPECIMENOrdering Facility: [facility] Address: [address] [place] [address] Performed By: #### 5 7021-8 ####[facility] LABIA [id number] [place] [address] [place] Metamyelocytes/100 WBC (Bld) 4.0 % Normal [facility] Comment on above: Order Comment: Speci men Type: BLOOD SPECIMENOrdering Facility: [facility] Address: [address] [place], [place] [address] Performed By: #### 5 7021-8 ####[facility] LABIA [id number] [place] [address] [place] Monocytes (Bld) [#/Vol] 0.02 10*3/uL Normal <0.87 [facility] Comment on above: Order Comment: Speci men Type: BLOOD SPECIMENOrdering Facility: [facility] Address: [address] [place], [place] [address] Performed By: #### 5 7021-8 ####[facility] LABCLIA [id number] [place] [address] [place] Monocytes/100 WBC (Bld) 1.1 % Normal C [facility] Comment on above: Order Comment: Speci men Type: BLOOD SPECIMENOrdering Facility: [facility] Address: [address] Performed By: #### 5 7021-8 ####[facility] LABCLIA [id number] [place] [address] [place] Neutrophils (Bld) [#/Vol] 0.25 10*3/uL Low 1.45-7.5 0 [facility] Comment on above: Order Comment: Speci men Type: BLOOD SPECIMENOrdering Facility: [facility] Address: [address] Performed By: #### 5 7021-8 ####[facility] LABCLIA [id number] [address] [place] Neutrophils/100 WBC (Bld) 14.8 % Normal [facility] Comment on above: Order Comment: Speci men Type: BLOOD SPECIMENOrdering Facility: [facility] Address: [address] Performed By: #### 5 7021-8 ####[facility] LABCLIA [id number] [place] [address] [place] Nucleated RBC (Bld) [#/Vol] 0.03 10*3/uL High <0.01 [facility] Comment on above: Order Comment: Speci men Type: BLOOD SPECIMENOrdering Facility: [facility] Address: [address] Performed By: #### 5 7021-8 ####[facility] LABCLIA [id number] [place] [address] [place] Nucleated RBC/100 WBC (Bld) [Ratio] 1.7 /100 WBC Normal [facility] Comment on above: Order Comment: Speci men Type: BLOOD SPECIMENOrdering Facility: [facility] Address: [address] [place], [place] [address] Performed By: #### 5 7021-8 ####[facility] LABCLIA [id number] [place] [address] [place] Ovalocytes LM Ql (Bld) Few Normal Cl [facility] Comment on above: Order Comment: Speci men Type: BLOOD SPECIMENOrdering Facility: [facility] Address: [address] [place] [address] Performed By: #### 5 7021-8 ####[facility] LABIA [id number] [place] [address] [place] Platelet mean volume (Bld) [Entitic vol] Normal [facility] Comment on above: Order Comment: Speci men Type: BLOOD SPECIMENOrdering Facility: [facility] Address: [address] [place] [address] Result Comment: Unab le to Report. Performed By: #### 5 7021-8 ####[facility] [id number] [address] Platelets (Bld) [#/Vol] 16 10*3/uL Low 150-400 C [facility] Comment on above: Order Comment: Speci men Type: BLOOD SPECIMENOrdering Facility: [facility] Address: [address] [place] [address] Result Comment: No c lot detected.Results checked and verified. Performed By: #### 5 7021-8 ####[facility] LABIA [id number] [place] [address] [place] Platelets Estimate (Bld) [#/Vol] Decreased Normal [facility] Comment on above: Order Comment: Speci men Type: BLOOD SPECIMENOrdering Facility: [facility] Address: [address] [place] [address] Performed By: #### 5 7021-8 ####[facility] LABIA [id number] [place] [address] [place] Polychromasia LM Ql (Bld) Slight Normal [facility] Comment on above: Order Comment: Speci men Type: BLOOD SPECIMENOrdering Facility: [facility] Address: [address] [place], [place] [address] Performed By: #### 5 7021-8 ####[facility] LABCLIA [id number] [place] [address] [place] RBC (Bld) [#/Vol] 2.12 10*6/uL Low 3.90-5.20 [facility] Comment on above: Order Comment: Speci men Type: BLOOD SPECIMENOrdering Facility: [facility] Address: [address] [place], [place] [address] Performed By: #### 5 7021-8 ####[facility] LABCLIA [id number] [place] [address] [place] RBC FRAGMENTS Few Abnormal None Seen [facility] Comment on above: Order Comment: Speci men Type: BLOOD SPECIMENOrdering Facility: [facility] Address: [address] [place], [place] [address] Performed By: #### 5 7021-8 ####[facility] LABCLIA [id number] [place] [address] [place] RED CELL MORPH Reviewed: see result s of individual morphologies Normal [facility] Comment on above: Order Comment: Speci men Type: BLOOD SPECIMENOrdering Facility: [facility] Address: [address] [place], [place] [address] Performed By: #### 5 7021-8 ####[facility] LABCLIA [id number] [place] [address] [place] WBC (Bld) [#/Vol] 1.67 10*3/uL Low 3.70-11.00 [facility] Comment on above: Order Comment: Speci men Type: BLOOD SPECIMENOrdering Facility: [facility] Address: [address] [place], [place] [address] Result Comment: No c lot detected. Performed By: #### 5 7021-8 ####[facility] LABCLIA [id number] [place] [address] [place] WBC Left Shift Ql (Bld) Present [facility] Comment on above: Order Comment: Speci men Type: BLOOD SPECIMENOrdering Facility: [facility] Address: [address] Performed By: #### 5 7021-8 ####[facility] LABCLIA [id number] [place] [address] [place] CNCOon 05-30-2023 CNCO Letter Text Normal [place] CONSULT PROGon 05-30-2023 CONSULT PROG Normal [place] [facility] inic [place] Comprehensive metabolic 2000 panelon 05-30-2023 Albumin [Mass/Vol] 3.5 g/dL Low 3.9-4.[address] [facility] Comment on above: Order Comment: Speci men Type: BLOOD SPECIMENOrdering Facility: [facility] Address: [address] [place] [address] Performed By: #### 2 4323-8, 81204-5, 2777-1, 3084-1 ####[facility] LABIA [id number] [place] [address] [place] ALP [Catalytic activity/Vol] 54 U/L Normal 34-123 [facility] Comment on above: Order Comment: Speci men Type: BLOOD SPECIMENOrdering Facility: [facility] Address: [address] Performed By: #### 2 4323-8, 08097-1, 2776-1, 3084-1 ####[facility] LABCLIA [id number] [place] [id number] [place] ALT [Catalytic activity/Vol] 18 U/L Normal 7-38 [facility] Comment on above: Order Comment: Speci men Type: BLOOD SPECIMENOrdering Facility: [facility] Address: [address] [place], [place] [address] Performed By: #### 2 4323-8, 41185-1, 2776-1, 3084-1 ####[facility] LABCLIA [id number] [place] [address] [place] Anion gap [Moles/Vol] 9 mmol/L Normal 9-18 [facility] Comment on above: Order Comment: Speci men Type: BLOOD SPECIMENOrdering Facility: [facility] Address: [address] [place] [address] Performed By: #### 2 4323-8, 59896-9, 2776-, 3084-1 ####[facility] LABCLIA [id number] [place] [address] [place] AST [Catalytic activity/Vol] 17 U/L Normal 13-35 [facility] Comment on above: Order Comment: Speci men Type: BLOOD SPECIMENOrdering Facility: [facility] Address: [address] [place] [address] Performed By: #### 2 4323-8, 30335-1, 2776-, 3084-1 ####[facility] LABCLIA [id number] [place] [address] [place] Bilirubin [Mass/Vol] 0.4 mg/dL Normal 0.2-1.3 [facility] Comment on above: Order Comment: Speci men Type: BLOOD SPECIMENOrdering Facility: [facility] Address: [address] [place], [place] [address] Performed By: #### 2 4323-8, 38165-2, 2776-, 3084-1 ####[facility] LABCLIA [id number] [place] [address] [place] Calcium [Mass/Vol] 8.7 mg/dL Normal 8.5-10.[address] [facility] Comment on above: Order Comment: Speci men Type: BLOOD SPECIMENOrdering Facility: [facility] Address: [address] [id number] Performed By: #### 2 4323-8, 27845-5, 2776-, 308-1 ####[facility] LABCLIA [id number] [address] [address] [place] Chloride [Moles/Vol] 107 mmol/L High 97-105 [facility] Comment on above: Order Comment: Speci men Type: BLOOD SPECIMENOrdering Facility: [facility] Address: [address] [place], [place] [address] Performed By: #### 2 4323-8, 74271-4, 2776-, 308-1 ####[facility] LABCLIA [id number] [place] [address] [place] CO2 [Moles/Vol] 25 mmol/L Normal 22-30 [facility] Comment on above: Order Comment: Speci men Type: BLOOD SPECIMENOrdering Facility: [facility] Address: [address] Performed By: #### 2 4323-8, 64531-3, 2776-09, 308-1 ####[facility] LABCLIA [id number] [place] [address] [place] Creatinine [Mass/Vol] 0.93 mg/dL Normal 0.58-0.96 [facility] Comment on above: Order Comment: Speci men Type: BLOOD SPECIMENOrdering Facility: [facility] Address: [address] [place] [address] Performed By: #### 2 4323-8, 17393-7, 2776-09, 308-1 ####[facility] LABCLIA [id number] [address] [address] [place] Creatinine and Glomerular filtration rate.predicted panel (S/P/Bld) 67 mL/min/1.73m??? Normal >=60 [facility] Comment on above: Order Comment: Elvia escobar Type: BLOOD SPECIMENOrdering Facility: [facility] Address: [address] [place] [address] Result Comment: Berenice mated Glomerular Filtration Rate (eGFR) is calculated using the 2020 CKD-EPI creatinine equation. This equation utilizes serum creatinine, sex, and age as parameters. The creatinine assay has traceable calibration to isotope dilution-mass spectrometry. Refer to KDIGO guidelines for clinical interpretation. In patients with unstable renal function, e.g. those with acute kidney injury, the eGFR may not accurately reflect actual GFR. Performed By: #### 2 4323-8, 30454-4, 2776-, 3083- ####[facility] LABIA [id number] [place] [address] [place] Glucose [Mass/Vol] 119 mg/dL High 74-[address] [facility] Comment on above: Order Comment: Elvia escobar Type: BLOOD SPECIMENOrdering Facility: [facility] Address: [address] [place], [place] [address] Result Comment: The [place] Diabetes Association (ADA) provides guidance for cutoff values for fasting glucose and random glucose. The ADA defines fasting as no caloric intake for at least 8 hours. Fasting plasma glucose results between 100 to 125 mg/dL indicate increased risk for diabetes (prediabetes).Fasting plasma glucose results greater than or equal to 126 mg/dL meet the criteria for diagnosis of diabetes. In the absence of unequivocal hyperglycemia, results should be confirmed by repeat testing. In a patient with classic symptoms of hyperglycemia or hyperglycemic crisis, random plasma glucose results greater than or equal to 200 mg/dL meet the criteria for diagnosis of diabetes.Reference: Standards of Medical Care in Diabetes 2016, [place] [employer] Association. Diabetes Care. 2016.39(Suppl 1). Performed By: #### 2 4323-8, 40446-8, 2776-, 3083- ####[facility] LABIA [id number] [address] [address] [place] Potassium [Moles/Vol] 3.9 mmol/L Normal 3.7-5.1 [facility] Comment on above: Order Comment: Speci men Type: BLOOD SPECIMENOrdering Facility: [facility] Address: [place] [address] Performed By: #### 2 4323-8, 22268-6, 2776-, 3084-1 ####[facility] LABCLIA [id number] [place] [address] [place] Protein [Mass/Vol] 5.7 g/dL Low 6.3-8.[address] [facility] Comment on above: Order Comment: Speci men Type: BLOOD SPECIMENOrdering Facility: [facility] Address: [place] [address] Performed By: #### 2 4323-8, 93129-9, 2776-, 3084-1 ####[facility] LABIA [id number] [place] [address] [place] Sodium [Moles/Vol] 141 mmol/L Normal 136-[address] [facility] Comment on above: Order Comment: Speci men Type: BLOOD SPECIMENOrdering Facility: [facility] Address: [place] [address] Performed By: #### 2 4323-8, 06419-3, 2776-, 3084-1 ####[facility] LABIA [id number] [place] [address] [place] Urea nitrogen [Mass/Vol] 15 mg/dL Normal 7-21 [facility] Comment on above: Order Comment: Speci men Type: BLOOD SPECIMENOrdering Facility: [facility] Address: [place] [address] Performed By: #### 2 4323-8, 05173-7, 2776-, 3084-1 ####[facility] LABIA [id number] [address] [address] [place] MEDICAL EMERon 05-30-2023 MEDICAL RUFUS [facility] Magn[facility] SerPl-mCncon 05-30 Magnesium [Mass/Vol] 2.1 mg/dL Normal 1.7-2.3 [facility] Comment on above: Order Comment: Speci men Type: BLOOD SPECIMENOrdering Facility: [facility] Address: [place] [id number] Performed By: #### 2 4323-8, 95431-8, 2776-1, 3084-1 ####[facility] LABCLIA [id number] [address] [address] [place] NUTRITIONon 05-30-2023 NUTRITION Normal [facility] ic De PT EDon 05-30-2023 PT ED Normal [facility] Phosphate SerPl-mCncon 05-30 Phosphate [Mass/Vol] 4.0 mg/dL Normal 2.7-4.8 [facility] Comment on above: Order Comment: Speci men Type: BLOOD SPECIMENOrdering Facility: [facility] Address: [place] [address] Performed By: #### 2 4323-8, 30608-4, 2776-09, 3084-1 ####[facility] LABCLIA [id number] [address] [address] [place] SOCIAL WORKon 05-30-2023 SOCIAL WORK Normal [place] [facility] [place] SOCIAL WORK Normal [place] [facility] [place] Urate SerPl-mCncon Urate [Mass/Vol] 2.2 mg/dL Low 2.5-6.6 [facility] Comment on above: Order Comment: Speci men Type: BLOOD SPECIMENOrdering Facility: [facility] Address: [place] [id number] Performed By: #### 2 4323-8, 77299-6, 2776-1, 3084-1 ####[facility] LABCLIA [id number] [address] [address] [place] BMT REC INIT W/Uon ALLOGEN RESULTS TO FOLLOW See Allogen re port to follow Normal [facility] Comment on above: Order Comment: Speci men Type: BLOOD SPECIMENOrdering Facility: [facility] Address: [address] [place] [address] Performed By: #### B MTRIW ####[facility] LABCLIA [id number] [place] [address] [place] BRIEF OP NOTon 05-29-2023 BRIEF OP NOT Normal [place] [facility] [place] CASE MGT INIT ASSESon 2022 CASE MGT INIT ASSES Normal [facility] CBC W Auto Differential pane l (Bld)on 05-29-2023 Anisocytosis Ql (Bld) Present Normal [facility] Comment on above: Order Comment: Speci men Type: BLOOD SPECIMENOrdering Facility: [facility] Address: [address] [place] [address] Performed By: #### 5 7021-8 ####[facility] LABCLIA [id number] [place] [address] [place] Basophils (Bld) [#/Vol] 0.00 10*3/uL Normal <0.11 [facility] Comment on above: Order Comment: Speci men Type: BLOOD SPECIMENOrdering Facility: [facility] Address: [address] [place] [address] Performed By: #### 5 7021-8 ####[facility] LABCLIA [id number] [place] [address] [place] Basophils/100 WBC (Bld) 0.0 % Normal [facility] Comment on above: Order Comment: Speci men Type: BLOOD SPECIMENOrdering Facility: [facility] Address: [address] [place] [address] Performed By: #### 5 7021-8 ####[facility] LABCLIA [id number] [address] [place] BLAST% 4.9 % High <=0.0 [facility] Comment on above: Order Comment: Speci men Type: BLOOD SPECIMENOrdering Facility: [facility] Address: [address] Performed By: #### 5 7021-8 ####[facility] LABCLIA [id number] [place] [address] [place] Dacrocytes LM Ql (Bld) Few Normal Cl [facility] Comment on above: Order Comment: Speci men Type: BLOOD SPECIMENOrdering Facility: [facility] Address: [address] Performed By: #### 5 7021-8 ####[facility] LABCLIA [id number] [place] [address] [place] Differential cell count method Nom (Bld) Manual Normal [facility] Comment on above: Order Comment: Speci men Type: BLOOD SPECIMENOrdering Facility: [facility] Address: [address] Performed By: #### 5 7021-8 ####[facility] LABCLIA [id number] [place] [address] [place] Eosinophils (Bld) [#/Vol] 0.03 10*3/uL Normal <0.46 [facility] Comment on above: Order Comment: Speci men Type: BLOOD SPECIMENOrdering Facility: [facility] Address: [address] Performed By: #### 5 7021-8 ####[facility] LABCLIA [id number] [place] [address] [place] Eosinophils/100 WBC (Bld) 2.2 % Normal [facility] Comment on above: Order Comment: Speci men Type: BLOOD SPECIMENOrdering Facility: [facility] Address: [address] Performed By: #### 5 7021-8 ####[facility] LABIA [id number] [place] [address] [place] Erythrocyte distribution wid th (RBC) [Ratio] 18.3 % High 11.5-15.0 [facility] Comment on above: Order Comment: Speci men Type: BLOOD SPECIMENOrdering Facility: [facility] Address: [address] [place] [address] Performed By: #### 5 7021-8 ####[facility] [id number] [place] [address] [place] Hematocrit (Bld) [Volume fraction] 18.6 % Low 3 6.0-46.0 [facility] Comment on above: Order Comment: Speci men Type: BLOOD SPECIMENOrdering Facility: [facility] Address: [address] [place] [address] Performed By: #### 5 7021-8 ####[facility] [id number] [place] [address] [place] Hemoglobin (Bld) [Mass/Vol] 6.6 g/dL Low 11.5-15. 5 [facility] Comment on above: Order Comment: Speci men Type: BLOOD SPECIMENOrdering Facility: [facility] Address: [address] [place], [place] [address] Performed By: #### 5 7021-8 ####[facility] [id number] [place] [address] [place] Lymphocytes (Bld) [#/Vol] 1.08 10*3/uL Normal 1.00-4.0 0 [facility] Comment on above: Order Comment: Speci men Type: BLOOD SPECIMENOrdering Facility: [facility] Address: [address] [place], [place] [address] Performed By: #### 5 7021-8 ####[facility] [id number] [place] [address] [place] [facility] Lymphocytes/100 WBC (Bld) 75.2 % Normal [facility] Comment on above: Order Comment: Speci men Type: BLOOD SPECIMENOrdering Facility: [facility] Address: [address] [place] [address] Performed By: #### 5 7021-8 ####[facility] LABCLIA [id number] [address] [place] MCH (RBC) [Entitic mass] 35.1 pg High 26.0-34.0 [facility] Comment on above: Order Comment: Speci men Type: BLOOD SPECIMENOrdering Facility: [facility] Address: [address] [place], [place] [address] Performed By: #### 5 7021-8 ####[facility] LABCLIA [id number] [address] [place] MCHC (RBC) [Mass/Vol] 35.5 g/dL Normal 30.5-36.0 [facility] Comment on above: Order Comment: Speci men Type: BLOOD SPECIMENOrdering Facility: [facility] Address: [address] [place], [place] [address] Performed By: #### 5 7021-8 ####[facility] LABCLIA [id number] [address] [place] MCV (RBC) [Entitic vol] 98.9 fL Normal 80.0-100.0 C [facility] Comment on above: Order Comment: Speci men Type: BLOOD SPECIMENOrdering Facility: [facility] Address: [address] [place], [place] [address] Performed By: #### 5 7021-8 ####[facility] LABCLIA [id number] [place] [address] [place] Monocytes (Bld) [#/Vol] 0.01 10*3/uL Normal <0.87 [facility] Comment on above: Order Comment: Speci men Type: BLOOD SPECIMENOrdering Facility: [facility] Address: [address] Performed By: #### 5 7021-8 ####[facility] LABCLIA [id number] [place] [address] [place] Monocytes/100 WBC (Bld) 0.4 % Normal [facility] Comment on above: Order Comment: Speci men Type: BLOOD SPECIMENOrdering Facility: [facility] Address: [address] Performed By: #### 5 7021-8 ####[facility] LABIA [id number] [place] [address] [place] MYELO% 0.4 % Normal [facility] Comment on above: Order Comment: Speci men Type: BLOOD SPECIMENOrdering Facility: [facility] Address: [address] [place], [place] [address] Performed By: #### 5 7021-8 ####[facility] LABIA [id number] [place] [address] [place] Neutrophils (Bld) [#/Vol] 0.24 10*3/uL Low 1.45-7.5 0 [facility] Comment on above: Order Comment: Speci men Type: BLOOD SPECIMENOrdering Facility: [facility] Address: [address] Performed By: #### 5 7021-8 ####[facility] LABCLIA [id number] [address] [place] Neutrophils/100 WBC (Bld) 16.9 % Normal [facility] Comment on above: Order Comment: Speci men Type: BLOOD SPECIMENOrdering Facility: [facility] Address: [address] Performed By: #### 5 7021-8 ####[facility] LABCLIA [id number] [place] [address] [place] Nucleated RBC (Bld) [#/Vol] 0.02 10*3/uL High <0.01 [facility] Comment on above: Order Comment: Speci men Type: BLOOD SPECIMENOrdering Facility: [facility] Address: [address] [place] [address] Performed By: #### 5 7021-8 ####[facility] LABCLIA [id number] [place] [address] [place] Nucleated RBC/100 WBC (Bld) [Ratio] 1.3 /100 WBC Normal [facility] Comment on above: Order Comment: Speci men Type: BLOOD SPECIMENOrdering Facility: [facility] Address: [address] [place] [address] Performed By: #### 5 7021-8 ####[facility] LABCLIA [id number] [place] [address] [place] Ovalocytes LM Ql (Bld) Few Normal Cl [facility] Comment on above: Order Comment: Speci men Type: BLOOD SPECIMENOrdering Facility: [facility] Address: [address] [place] [address] Performed By: #### 5 7021-8 ####[facility] LABCLIA [id number] [place] [address] [place] Platelet mean volume (Bld) [Entitic vol] Normal [facility] Comment on above: Order Comment: Speci men Type: BLOOD SPECIMENOrdering Facility: [facility] Address: [address] [place], [place] [address] Result Comment: Unab le to Report. Performed By: #### 5 7021-8 ####[facility] LABCLIA [id number] [place] [address] [place] Platelets (Bld) [#/Vol] 14 10*3/uL Low 150-400 C [facility] Comment on above: Order Comment: Speci men Type: BLOOD SPECIMENOrdering Facility: [facility] Address: [address] [place] [address] Result Comment: Resu lts checked and verified.No clot detected. Performed By: #### 5 7021-8 ####[facility] LABCLIA [id number] [place] [address] [place] Platelets Estimate (Bld) [#/Vol] Decreased Normal [facility] Comment on above: Order Comment: Speci men Type: BLOOD SPECIMENOrdering Facility: [facility] Address: [address] [place] [address] Performed By: #### 5 7021-8 ####[facility] LABCLIA [id number] [place] [address] [place] Polychromasia LM Ql (Bld) Slight Normal [facility] Comment on above: Order Comment: Speci men Type: BLOOD SPECIMENOrdering Facility: [facility] Address: [address] [place] [address] Performed By: #### 5 7021-8 ####[facility] LABCLIA [id number] [place] [address] [place] RBC (Bld) [#/Vol] 1.88 10*6/uL Low 3.90-5.20 [facility] Comment on above: Order Comment: Speci men Type: BLOOD SPECIMENOrdering Facility: [facility] Address: [address] [place] [address] Performed By: #### 5 7021-8 ####[facility] LABCLIA [id number] [place] [address] [place] RBC FRAGMENTS Few Abnormal None Seen [facility] Comment on above: Order Comment: Speci men Type: BLOOD SPECIMENOrdering Facility: [facility] Address: [address] [place] [address] Performed By: #### 5 7021-8 ####[facility] LABCLIA [id number] [place] [address] [place] RED CELL MORPH Reviewed: see result s of individual morphologies Normal [facility] Comment on above: Order Comment: Speci men Type: BLOOD SPECIMENOrdering Facility: [facility] Address: [address] [place] [address] Performed By: #### 5 7021-8 ####[facility] LABIA [id number] [place] [address] [place] WBC (Bld) [#/Vol] 1.43 10*3/uL Low 3.70-11.00 [facility] Comment on above: Order Comment: Speci men Type: BLOOD SPECIMENOrdering Facility: [facility] Address: [address] [place] [address] Result Comment: No c lot detected. Performed By: #### 5 7021-8 ####[facility] LABIA [id number] [address] [place] WBC Left Shift Ql (Bld) Present [facility] Comment on above: Order Comment: Speci men Type: BLOOD SPECIMENOrdering Facility: [facility] Address: [address] [place] [address] Performed By: #### 5 7021-8 ####[facility] LABIA [id number] [place] [address] [place] CMV IgG Qnon 05-29-2023 CMV IGG QUAL Negative Normal Negative [facility] Comment on above: Order Comment: Speci men Type: BLOOD SPECIMENOrdering Facility: [facility] Address: [address] [place] [address] Result Comment: No s erological evidence of past exposure to Cytomegalovirus. Cannot exclude recent infection if the specimen collected within 4-6 weeks after infection. Performed By: #### 7 852-7 ####[facility] LABCLIA [id number] [place] [address] [place] [address] [place] CMV IgG SerPl-aCncon 023 CMV IgG Qn 0.24 U/mL Normal [facility] Comment on above: Order Comment: Speci men Type: BLOOD SPECIMENOrdering Facility: [facility] Address: [address] [place] [address] Result Comment: The magnitude of the measured result is not indicative of the amount of antibody present.U/mL values are interpreted as follows:Negative <0.6Equivocal 0.6 to <0.70Positive >=0.70 Performed By: #### 7 852-7 ####[facility] LABCLIA [id number] [address] [place] CONSULTon 05-29-2023 CONSULT Normal [facility] metabolic 2000 panelon 05-29-2023 Albumin [Mass/Vol] 3.5 g/dL Low 3.9-4.[address] [facility] Comment on above: Order Comment: Speci men Type: BLOOD SPECIMENOrdering Facility: [facility] Address: [address] [place], [place] [address] Performed By: #### 2 4323-8 ####[facility] LABCLIA [id number] [place] [address] [place] ALP [Catalytic activity/Vol] 50 U/L Normal 34-123 [facility] Comment on above: Order Comment: Speci men Type: BLOOD SPECIMENOrdering Facility: [facility] Address: [address] [place], [place] [address] Performed By: #### 2 4323-8 ####[facility] LABCLIA [id number] [place] [address] [place] ALT [Catalytic activity/Vol] 11 U/L Normal 7-38 [facility] Comment on above: Order Comment: Speci men Type: BLOOD SPECIMENOrdering Facility: [facility] Address: [address] [place] [address] Performed By: #### 2 4323-8 ####[facility] LABCLIA [id number] [place] [address] [place] Anion gap [Moles/Vol] 10 mmol/L Normal 9-18 [facility] Comment on above: Order Comment: Speci men Type: BLOOD SPECIMENOrdering Facility: [facility] Address: [address] [place] [address] Performed By: #### 2 4323-8 ####[facility] LABCLIA [id number] [place] [address] [place] AST [Catalytic activity/Vol] 12 U/L Low 13-35 [facility] Comment on above: Order Comment: Speci men Type: BLOOD SPECIMENOrdering Facility: [facility] Address: [address] [place] [address] Performed By: #### 2 4323-8 ####[facility] LABCLIA [id number] [place] [address] [place] Bilirubin [Mass/Vol] 0.4 mg/dL Normal 0.2-1.3 [facility] Comment on above: Order Comment: Speci men Type: BLOOD SPECIMENOrdering Facility: [facility] Address: [address] [place] [address] Performed By: #### 2 4323-8 ####[facility] LABCLIA [id number] [place] [address] [place] Calcium [Mass/Vol] 8.5 mg/dL Normal 8.5-10.[address] [facility] Comment on above: Order Comment: Speci men Type: BLOOD SPECIMENOrdering Facility: [facility] Address: [address] [place], [place] [address] Performed By: #### 2 4323-8 ####[facility] LABCLIA [id number] [place] [address] [place] Chloride [Moles/Vol] 107 mmol/L High 97-105 [facility] Comment on above: Order Comment: Speci men Type: BLOOD SPECIMENOrdering Facility: [facility] Address: [address] [place] [address] Performed By: #### 2 4323-8 ####[facility] LABCLIA [id number] [address] CO2 [Moles/Vol] 25 mmol/L Normal 22-30 [facility] Comment on above: Order Comment: Speci men Type: BLOOD SPECIMENOrdering Facility: [facility] Address: [address] [place] [address] Performed By: #### 2 4323-8 ####[facility] LABIA [id number] [address] Creatinine [Mass/Vol] 0.92 mg/dL Normal 0.58-0.96 [facility] Comment on above: Order Comment: Speci men Type: BLOOD SPECIMENOrdering Facility: [facility] Address: [address] [place] [address] Performed By: #### 2 4323-8 ####[facility] LABIA [id number] [address] Creatinine and Glomerular filtration rate.predicted panel (S/P/Bld) 68 mL/min/1.73m??? Normal >=60 [facility] Comment on above: Order Comment: Speci men Type: BLOOD SPECIMENOrdering Facility: [facility] Address: [address] [place] [address] Result Comment: Berenice mated Glomerular Filtration Rate (eGFR) is calculated using the 2020 CKD-EPI creatinine equation. This equation utilizes serum creatinine, sex, and age as parameters. The creatinine assay has traceable calibration to isotope dilution-mass spectrometry. Refer to KDIGO guidelines for clinical interpretation. In patients with unstable renal function, e.g. those with acute kidney injury, the eGFR may not accurately reflect actual GFR. Performed By: #### 2 4323-8 ####[facility] LABCLIA [id number] [place] [address] [place] Glucose [Mass/Vol] 110 mg/dL High 74-[address] [facility] Comment on above: Order Comment: Speci men Type: BLOOD SPECIMENOrdering Facility: [facility] Address: [address] [place] [address] Result Comment: The [place] [employer] (ADA) provides guidance for cutoff values for fasting glucose and random glucose. The ADA defines fasting as no caloric intake for at least 8 hours. Fasting plasma glucose results between 100 to 125 mg/dL indicate increased risk for diabetes (prediabetes).Fasting plasma glucose results greater than or equal to 126 mg/dL meet the criteria for diagnosis of diabetes. In the absence of unequivocal hyperglycemia, results should be confirmed by repeat testing. In a patient with classic symptoms of hyperglycemia or hyperglycemic crisis, random plasma glucose results greater than or equal to 200 mg/dL meet the criteria for diagnosis of diabetes.Reference: Standards of Medical Care in Diabetes 2016, [place] [employer]. Diabetes Care. 2016.39(Suppl 1). Performed By: #### 2 4323-8 ####[facility] LABIA [id number] [place] [address] [place] Potassium [Moles/Vol] 3.9 mmol/L Normal 3.7-5.1 [facility] Comment on above: Order Comment: Speci men Type: BLOOD SPECIMENOrdering Facility: [facility] Address: [address] [place] [address] Performed By: #### 2 4323-8 ####[facility] LABCLIA [id number] [place] [address] [place] Protein [Mass/Vol] 5.6 g/dL Low 6.3-8.[address] [facility] Comment on above: Order Comment: Speci men Type: BLOOD SPECIMENOrdering Facility: [facility] Address: [address] [address] Performed By: #### 2 4323-8 ####[facility] LABIA [id number] [address] [id number] [address] [place] Sodium [Moles/Vol] 142 mmol/L Normal 136-[address] [facility] Comment on above: Order Comment: Speci men Type: BLOOD SPECIMENOrdering Facility: [facility] Address: [address] [place] [address] Performed By: #### 2 4323-8 ####[facility] LABCLIA [id number] [place] [address] [place] Urea nitrogen [Mass/Vol] 16 mg/dL Normal 7-21 [facility] Comment on above: Order Comment: Speci men Type: BLOOD SPECIMENOrdering Facility: [facility] Address: [address] [place] [address] Performed By: #### 2 4323-8 ####[facility] LABCLIA [id number] [place] [address] [place] IR CENTRAL LINE REMOVALon IR CENTRAL LINE REMOVAL Normal C [facility] MEDICAL EMERon 05-29-2023 MEDICAL RUFUS Normal [place] [facility] [place] SOCIAL WORKon 05-29-2023 SOCIAL WORK Normal [place] [facility]ris [place] SURGICAL PATHOLOGYon 023 CASE REPORT Normal [place] [facility] Comment on above: Order Comment: Speci men Type: TISSUE SPECIMENOrdering Facility: [facility] Address: [address] [place] [address] Result Comment: Surg ical Pathology Report Case: [id number] Provider: Brandy Castro, Collected: 05/29/2023 03:21 PM CRYPTOGRAPHIC VULNERABILITY ANALYST.CNPOrdering Location: [place] [address] Received: 05/29/2023 10:53 PMPathologist: Rosalia Gaytan MDSpecimen: HARDWARE Performed By: #### S ####[facility] LABCLIA [id number] [place] [address] [place] CLINICAL HISTORY infected port Normal [facility] Comment on above: Order Comment: Speci men Type: TISSUE SPECIMENOrdering Facility: [facility] Address: [address] [address] Performed By: #### S ####[facility] LABCLIA [id number] [address] FINAL DIAGNOSIS Normal [facility] Comment on above: Order Comment: Speci men Type: TISSUE SPECIMENOrdering Facility: [facility] Address: [address] [place] [address] Result Comment: A. S ite not specified, port removal:-Unremarkable port (gross diagnosis only).ME/JXKim 05/30/2023 Performed By: #### S ####[facility] LABCLIA [id number] [address] FINAL PERFORMING LAB Normal [facility] Comment on above: Order Comment: Speci men Type: TISSUE SPECIMENOrdering Facility: [facility] Address: [address] [address] Result Comment: Diag nostic interpretation performed at [facility], [address] [place] [address] CLIA# [id number] Director: Boris Wood M.D. Performed By: #### S ####[facility] LABIA [id number] [address] GROSS DESCRIPTION A. HARDWARE Normal [facility] Comment on above: Order Comment: Speci men Type: TISSUE SPECIMENOrdering Facility: [facility] Address: [address] [address] Result Comment: Rece ived fresh labeled hardware a 3.0 x 2.8 x 1.6 cm port inscribed with the following: Bard [id number] . A 25.5 cm in length, 0.3 cm in diameter patent, flexible segment of tubing is attached to the port. No tissue is present. No sections are submitted. The specimen is reviewed with Dr. Cesar Massey and is for gross examination only.Gross examination performed at [address] [id number] [place], [place] [address]N[place] 05/30/23 10:43 AM Performed By: #### S ####[facility] LABCLIA [id number] [place] [id number] [place] TYPE + SCREENon 05-29-2023 ABO O Normal [facility] Comment on above: Order Comment: Speci men Type: BLOOD SPECIMENOrdering Facility: [facility] Address: [address] [place] [address] Performed By: #### T SCR ####[facility] BLOOD BANKCLIA [id number] [place] [address] [place] HISTORICAL AB SCR STATUS Negative Normal [facility] Comment on above: Order Comment: Speci men Type: BLOOD SPECIMENOrdering Facility: [facility] Address: [address] [place] [address] Performed By: #### T SCR ####[facility] BLOOD BANKCLIA [id number] [place] [address] [place] Rh Nom (Bld) Positive Normal [facility] Comment on above: Order Comment: Speci men Type: BLOOD SPECIMENOrdering Facility: [facility] Address: [address] [place] [address] Performed By: #### T SCR ####[facility] BLOOD BANKCLIA [id number] [place] [address] [place] TYPE AND SCREEN EXPIRATION 06/01/2023 23:59 Normal [facility] Comment on above: Order Comment: Speci men Type: BLOOD SPECIMENOrdering Facility: [facility] Address: [address] [place] [address] Performed By: #### T SCR ####[facility] BLOOD BANKCLIA [id number] [place] [address] [place] Bacteria Bld Culton 05-28-20 23 Bacteria identified Cx Nom (Bld) CULTURE, BLOOD: No growth 5 days Normal [facility] Comment on above: Performed By: #### 6 00-7 ####[facility] LABCLIA [id number] [address] STATES OF [facility] Bacteria identified Cx Nom (Bld) CULTURE, BLOOD: No growth 5 days Normal [facility] Comment on above: Performed By: #### 6 00-7 ####[facility] LABCLIA [id number] [place] [address] [place] CBC W Auto Differential pane l (Bld)on 05-28-2023 Anisocytosis Ql (Bld) Present Normal [facility] Comment on above: Order Comment: Speci men Type: BLOOD SPECIMENOrdering Facility: [facility] Address: [address] [place] [address] Performed By: #### 5 7021-8, [id number] ####[facility] LABCLIA [id number] [address] STATES OF [facility] Basophils (Bld) [#/Vol] 0.00 10*3/uL Normal <0.11 [facility] Comment on above: Order Comment: Speci men Type: BLOOD SPECIMENOrdering Facility: [facility] Address: [address] [place] [address] Performed By: #### 5 7021-8, [id number] ####[facility] LABCLIA [id number] [address] OF [place] Basophils/100 WBC (Bld) 0.0 % Normal [facility] Comment on above: Order Comment: Speci men Type: BLOOD SPECIMENOrdering Facility: [facility] Address: [address] [place] [address] Performed By: #### 5 7021-8, [id number] ####[facility] LABCLIA [id number] [address] STATES [place] BLAST% 7.0 % High <=0.0 [facility] Comment on above: Order Comment: Speci men Type: BLOOD SPECIMENOrdering Facility: [facility] Address: [address] Performed By: #### 5 7021-8, [id number] ####[facility] LABCLIA [id number] [place] [address] [place] Differential cell count method Nom (Bld) Manual Normal [facility] Comment on above: Order Comment: Speci men Type: BLOOD SPECIMENOrdering Facility: [facility] Address: [address] Performed By: #### 5 7021-8, [id number] ####[facility] LABCLIA [id number] [place] [address] [place] Eosinophils (Bld) [#/Vol] 0.03 10*3/uL Normal <0.46 [facility] Comment on above: Order Comment: Speci men Type: BLOOD SPECIMENOrdering Facility: [facility] Address: [address] [place], [place] [address] Performed By: #### 5 7021-8, [id number] ####[facility] LABCLIA [id number] [place] [address] [place] Eosinophils/100 WBC (Bld) 2.0 % Normal [facility] Comment on above: Order Comment: Speci men Type: BLOOD SPECIMENOrdering Facility: [facility] Address: [address] [place] [address] Performed By: #### 5 7021-8, [id number] ####[facility] LABCLIA [id number] [place] [address] [place] Erythrocyte distribution wid th (RBC) [Ratio] 18.3 % High 11.5-15.0 [facility] Comment on above: Order Comment: Speci men Type: BLOOD SPECIMENOrdering Facility: [facility] Address: [address] Performed By: #### 5 7021-8, [id number] ####[facility] LABCLIA [id number] [place] [address] [place] Hematocrit (Bld) [Volume fraction] 21.7 % Low 3 6.0-46.0 [facility] Comment on above: Order Comment: Speci men Type: BLOOD SPECIMENOrdering Facility: [facility] Address: [address] [place], [place] [address] Performed By: #### 5 7021-8, [id number] ####[facility] LABCLIA [id number] [place] [address] [place] Hemoglobin (Bld) [Mass/Vol] 7.5 g/dL Low 11.5-15. 5 [facility] Comment on above: Order Comment: Speci men Type: BLOOD SPECIMENOrdering Facility: [facility] Address: [address] [place], [place] [address] Performed By: #### 5 7021-8, [id number] ####[facility] LABCLIA [id number] [place] [address] [place] HYPOGRANULATED PMNS Present Normal [facility] Comment on above: Order Comment: Speci men Type: BLOOD SPECIMENOrdering Facility: [facility] Address: [address] [place], [place] [address] Performed By: #### 5 7021-8, [id number] ####[facility] LABCLIA [id number] [place] [address] [place] Lymphocytes (Bld) [#/Vol] 0.94 10*3/uL Low 1.00-4.0 0 [facility] Comment on above: Order Comment: Speci men Type: BLOOD SPECIMENOrdering Facility: [facility] Address: [address] Performed By: #### 5 7021-8, [id number] ####[facility] LABCLIA [id number] [place] [address] [place] Lymphocytes/100 WBC (Bld) 62.0 % Normal [facility] Comment on above: Order Comment: Speci men Type: BLOOD SPECIMENOrdering Facility: [facility] Address: [address] [place] [address] Performed By: #### 5 7021-8, [id number] ####[facility] LABIA [id number] [place] [address] [place] MCH (RBC) [Entitic mass] 34.9 pg High 26.0-34.0 [facility] Comment on above: Order Comment: Speci men Type: BLOOD SPECIMENOrdering Facility: [facility] Address: [address] [place] [address] Performed By: #### 5 7021-8, [id number] ####[facility] LABIA [id number] [place] [address] [place] MCHC (RBC) [Mass/Vol] 34.6 g/dL Normal 30.5-36.0 [facility] Comment on above: Order Comment: Speci men Type: BLOOD SPECIMENOrdering Facility: [facility] Address: [address] [place], [place] [address] Performed By: #### 5 7021-8, [id number] ####[facility] LABIA [id number] [place] [address] [place] MCV (RBC) [Entitic vol] 100.9 fL High 80.0-100.0 C [facility] Comment on above: Order Comment: Speci men Type: BLOOD SPECIMENOrdering Facility: [facility] Address: [address] [place], [place] [address] Performed By: #### 5 7021-8, [id number] ####[facility] LABCLIA [id number] [place] [address] [place] Monocytes (Bld) [#/Vol] 0.03 10*3/uL Normal <0.87 [facility] Comment on above: Order Comment: Speci men Type: BLOOD SPECIMENOrdering Facility: [facility] Address: [address] [place], [place] [address] Performed By: #### 5 7021-8, [id number] ####[facility] LABCLIA [id number] [place] [address] [place] Monocytes/100 WBC (Bld) 2.0 % Normal C [facility] Comment on above: Order Comment: Speci men Type: BLOOD SPECIMENOrdering Facility: [facility] Address: [address] [place], [place] [address] Performed By: #### 5 7021-8, [id number] ####[facility] LABCLIA [id number] [place] [address] [place] Neutrophils (Bld) [#/Vol] 0.41 10*3/uL Low 1.45-7.5 0 [facility] Comment on above: Order Comment: Speci men Type: BLOOD SPECIMENOrdering Facility: [facility] Address: [address] [place], [place] [address] Performed By: #### 5 7021-8, [id number] ####[facility] LABCLIA [id number] [place] [address] [place] Neutrophils/100 WBC (Bld) 27.0 % Normal [facility] Comment on above: Order Comment: Speci men Type: BLOOD SPECIMENOrdering Facility: [facility] Address: [address] [place] [address] Performed By: #### 5 7021-8, [id number] ####[facility] LABCLIA [id number] [place] [address] [place] Nucleated RBC (Bld) [#/Vol] 0.02 10*3/uL High <0.01 [facility] Comment on above: Order Comment: Speci men Type: BLOOD SPECIMENOrdering Facility: [facility] Address: [address] Performed By: #### 5 7021-8, [id number] ####[facility] LABCLIA [id number] [place] [address] [place] Nucleated RBC/100 WBC (Bld) [Ratio] 1.0 /100 WBC Normal [facility] Comment on above: Order Comment: Speci men Type: BLOOD SPECIMENOrdering Facility: [facility] Address: [address] [place] [address] Performed By: #### 5 7021-8, [id number] ####[facility] LABCLIA [id number] [place] [address] [place] Ovalocytes LM Ql (Bld) Few Normal Cl [facility] Comment on above: Order Comment: Speci men Type: BLOOD SPECIMENOrdering Facility: [facility] Address: [address] [place] [address] Performed By: #### 5 7021-8, [id number] ####[facility] LABCLIA [id number] [place] [address] [place] Platelet mean volume (Bld) [Entitic vol] Normal [facility] Comment on above: Order Comment: Speci men Type: BLOOD SPECIMENOrdering Facility: [facility] Address: [address] [place] [address] Result Comment: Unab le to Report. Performed By: #### 5 7021-8, [id number] ####[facility] LABCLIA [id number] [place] [address] [place] Platelets (Bld) [#/Vol] 17 10*3/uL Low 150-400 C [facility] Comment on above: Order Comment: Speci men Type: BLOOD SPECIMENOrdering Facility: [facility] Address: [address] [place], [place] [address] Result Comment: Resu lts checked and verified.No clot detected. Performed By: #### 5 7021-8, [id number] ####[facility] LABCLIA [id number] [place] [address] [place] Platelets Estimate (Bld) [#/Vol] Decreased Normal [facility] Comment on above: Order Comment: Speci men Type: BLOOD SPECIMENOrdering Facility: [facility] Address: [address] [place] [address] Performed By: #### 5 7021-8, [id number] ####[facility] LABCLIA [id number] [place] [address] [place] Polychromasia LM Ql (Bld) Slight Normal [facility] Comment on above: Order Comment: Speci men Type: BLOOD SPECIMENOrdering Facility: [facility] Address: [address] Performed By: #### 5 7021-8, [id number] ####[facility] LABCLIA [id number] [place] [address] [place] RBC (Bld) [#/Vol] 2.15 10*6/uL Low 3.90-5.20 [facility] Comment on above: Order Comment: Speci men Type: BLOOD SPECIMENOrdering Facility: [facility] Address: [address] [place] [address] Performed By: #### 5 7021-8, [id number] ####[facility] LABCLIA [id number] [place] [address] [place] RBC FRAGMENTS Few Abnormal None Seen [facility] Comment on above: Order Comment: Speci men Type: BLOOD SPECIMENOrdering Facility: [facility] Address: [address] [place] [address] Performed By: #### 5 7021-8, [id number] ####[facility] LABCLIA [id number] [place] [id number] [place] RED CELL MORPH Reviewed: see result s of individual morphologies Normal [facility] Comment on above: Order Comment: Speci men Type: BLOOD SPECIMENOrdering Facility: [facility] Address: [address] Performed By: #### 5 7021-8, [id number] ####[facility] LABCLIA [id number] [place] [address] [place] Target cells LM Ql (Bld) Few Normal [facility] Comment on above: Order Comment: Speci men Type: BLOOD SPECIMENOrdering Facility: [facility] Address: [address] Performed By: #### 5 7021-8, [id number] ####[facility] LABCLIA [id number] [place] [address] [place] WBC (Bld) [#/Vol] 1.52 10*3/uL Low 3.70-11.00 [facility] Comment on above: Order Comment: Speci men Type: BLOOD SPECIMENOrdering Facility: [facility] Address: [address] [place] [address] Performed By: #### 5 7021-8, [id number] ####[facility] LABCLIA [id number] [place] [address] [place] CNNURSEon 05-28-2023 CNNURSE Normal [facility] CNOVSPon 05-28-2023 CNOVSP Normal [facility] CONSULT PROGon 05-28-2023 CONSULT PROG Normal [place] [facility] metabolic 2000 panelon 05-28-2023 Albumin [Mass/Vol] 4.1 g/dL Normal 3.9-4.[address] [facility] Comment on above: Order Comment: Speci men Type: BLOOD SPECIMENOrdering Facility: [facility] Address: [address] Performed By: #### 2 4323-8 ####[facility] LABCLIA [id number] [place] [address] [place] ALP [Catalytic activity/Vol] 60 U/L Normal 34-123 [facility] Comment on above: Order Comment: Speci men Type: BLOOD SPECIMENOrdering Facility: [facility] Address: [address] [place] [address] Performed By: #### 2 4323-8 ####[facility] LABCLIA [id number] [place] [address] [place] ALT [Catalytic activity/Vol] 12 U/L Normal 7-38 [facility] Comment on above: Order Comment: Speci men Type: BLOOD SPECIMENOrdering Facility: [facility] Address: [address] [place] [address] Performed By: #### 2 4323-8 ####[facility] LABCLIA [id number] [place] [address] [place] Anion gap [Moles/Vol] 10 mmol/L Normal 9-18 [facility] Comment on above: Order Comment: Speci men Type: BLOOD SPECIMENOrdering Facility: [facility] Address: [address] [place] [address] Performed By: #### 2 4323-8 ####[facility] LABCLIA [id number] [place] [address] [place] AST [Catalytic activity/Vol] 12 U/L Low 13-35 [facility] Comment on above: Order Comment: Speci men Type: BLOOD SPECIMENOrdering Facility: [facility] Address: [address] [place] [address] Performed By: #### 2 4323-8 ####[facility] LABCLIA [id number] [place] [address] [place] Bilirubin [Mass/Vol] 0.4 mg/dL Normal 0.2-1.3 [facility] Comment on above: Order Comment: Speci men Type: BLOOD SPECIMENOrdering Facility: [facility] Address: [address] [place] [address] Performed By: #### 2 4323-8 ####[facility] LABCLIA [id number] [place] [address] [place] Calcium [Mass/Vol] 9.0 mg/dL Normal 8.5-10.[address] [facility] Comment on above: Order Comment: Speci men Type: BLOOD SPECIMENOrdering Facility: [facility] Address: [address] Performed By: #### 2 4323-8 ####[facility] LABCLIA [id number] [place] [address] [place] Chloride [Moles/Vol] 104 mmol/L Normal 97-105 [facility] Comment on above: Order Comment: Speci men Type: BLOOD SPECIMENOrdering Facility: [facility] Address: [address] Performed By: #### 2 4323-8 ####[facility] LABCLIA [id number] [place] [address] [place] CO2 [Moles/Vol] 24 mmol/L Normal 22-30 [facility] Comment on above: Order Comment: Speci men Type: BLOOD SPECIMENOrdering Facility: [facility] Address: [address] Performed By: #### 2 4323-8 ####[facility] LABCLIA [id number] [place] [address] [place] Creatinine [Mass/Vol] 0.84 mg/dL Normal 0.58-0.96 [facility] Comment on above: Order Comment: Speci men Type: BLOOD SPECIMENOrdering Facility: [facility] Address: [address] Performed By: #### 2 4323-8 ####[facility] LABCLIA [id number] [place] [address] [place] Creatinine and Glomerular filtration rate.predicted panel (S/P/Bld) 75 mL/min/1.73m??? Normal >=60 [facility] Comment on above: Order Comment: Elvia escobar Type: BLOOD SPECIMENOrdering Facility: [facility] Address: [address] [place] [address] Result Comment: Berenice mated Glomerular Filtration Rate (eGFR) is calculated using the 2020 CKD-EPI creatinine equation. This equation utilizes serum creatinine, sex, and age as parameters. The creatinine assay has traceable calibration to isotope dilution-mass spectrometry. Refer to KDIGO guidelines for clinical interpretation. In patients with unstable renal function, e.g. those with acute kidney injury, the eGFR may not accurately reflect actual GFR. Performed By: #### 2 4323-8 ####[facility] [id number] [place] [address] [place] Glucose [Mass/Vol] 130 mg/dL High 74-[address] [facility] Comment on above: Order Comment: Elvia escobar Type: BLOOD SPECIMENOrdering Facility: [facility] Address: [address] [place] [address] Result Comment: The [place] Diabetes Association (ADA) provides guidance for cutoff values for fasting glucose and random glucose. The ADA defines fasting as no caloric intake for at least 8 hours. Fasting plasma glucose results between 100 to 125 mg/dL indicate increased risk for diabetes (prediabetes).Fasting plasma glucose results greater than or equal to 126 mg/dL meet the criteria for diagnosis of diabetes. In the absence of unequivocal hyperglycemia, results should be confirmed by repeat testing. In a patient with classic symptoms of hyperglycemia or hyperglycemic crisis, random plasma glucose results greater than or equal to 200 mg/dL meet the criteria for diagnosis of diabetes.Reference: Standards of Medical Care in Diabetes 2016, [place] [employer] Association. Diabetes Care. 2016.39(Suppl 1). Performed By: #### 2 4323-8 ####[facility] [id number] [place] [address] [place] Potassium [Moles/Vol] 3.7 mmol/L Normal 3.7-5.1 [facility] Comment on above: Order Comment: Speci men Type: BLOOD SPECIMENOrdering Facility: [facility] Address: [address] [place] [address] Performed By: #### 2 4323-8 ####[facility] LABCLIA [id number] [place] [address] [place] Protein [Mass/Vol] 6.4 g/dL Normal 6.3-8.[address] [facility] Comment on above: Order Comment: Speci men Type: BLOOD SPECIMENOrdering Facility: [facility] Address: [address] [place] [address] Performed By: #### 2 4323-8 ####[facility] LABCLIA [id number] [address] [place] Sodium [Moles/Vol] 138 mmol/L Normal 136-[address] [facility] Comment on above: Order Comment: Speci men Type: BLOOD SPECIMENOrdering Facility: [facility] Address: [address] [place] [address] Performed By: #### 2 4323-8 ####[facility] LABCLIA [id number] [address] [place] Urea nitrogen [Mass/Vol] 17 mg/dL Normal 7-21 [facility] Comment on above: Order Comment: Speci men Type: BLOOD SPECIMENOrdering Facility: [facility] Address: [address] [place], [place] [address] Performed By: #### 2 4323-8 ####[facility] LABCLIA [id number] [place] [address] [place] ED NOTEon 05-28-2023 ED NOTE HNO ID: [id number] Author: Whit Herron RN Service: Emergency Medicine Author Type: Registered Nurse Type: ED Notes Filed: 05/28/2023 8:24 PM Note Text: Report Given to Daysi OLEARY Normal [facility] ED NOTE HNO ID: [id number] Author: Alyce James, MAMTA Service: Emergency Medicine Author Type: Registered Nurse Type: ED Notes Filed: 05/28/2023 7:08 PM Note Text: Report to Whit OLEARY Normal [facility] ED NOTE Normal [facility] ED NOTE Normal [facility] ED NOTE HNO ID: [id number] Author: Sam Andre RN Service: ? Author Type: Registered Nurse Type: ED Notes Filed: 05/28/2023 3:59 PM Note Text: Bed: E12-17 Expected date: 05/28/23 Expected time: Means of arrival: Comments: Normal [facility] ED PROV NOTEon 05-28-2023 ED PROV NOTE Normal [facility] HISTORY PHYSICALon HISTORY PHYSICAL Normal [facility] PATH INTERP CBCDIF (LAB REFL EX ORDER-NO BILL)on 05-28-2023 Compliance Advisor review Pino (Unsp spec) [Interp] Reviewed by Vikki Griffin M.D., Ph.D Normal [facility] Comment on above: Order Comment: Speci men Type: BLOOD SPECIMENOrdering Facility: [facility] Address: [address] [place] [address] Performed By: #### 5 7021-8, [id number] ####[facility] LABCLIA [id number] [address] [place] STAFF REVIEW, CBCDIF Normal [facility] Comment on above: Order Comment: Speci men Type: BLOOD SPECIMENOrdering Facility: [facility] Address: [address] [place] [address] Result Comment: Macr ocytic anemia without hypersegmented PMNsLeukopenia with absolute neutropeniaThrombocytopeniaCirculating blasts, consistent with patient's known history diagnosis of AML. Performed By: #### 5 7021-8, [id number] ####[facility] LABCLIA [id number] [place] [address] [place] Lab Reportson 05-23-2023 Lab Reports [id number]#1.00CD :127 Normal [facility] Lab Reportson 05-22-2023 Lab Reports [id number] D:127 Normal [facility] Operative Reporton 3 Operative Report [id number]:127 Normal [facility] Outside Hospital Correspo ndenceon 05-22-2023 Outside Hospital Correspondence [id number]:127 Normal [facility] Physician Referralon 023 Physician Referral [id number]:127 Normal [facility] Surgical Pathologyon 023 Surgical Pathology (NOTE) -- Diagnosis -- LIPOMA, LEFT ARM, EXCISION:-LIPOMA. Marnie Joseph Electronically Signed Out ag/12/26/2022 Clinical Information Pre-op Diagnosis: LARGE LIPOMA Operative Findings: INNER LEFT ARM Operation Performed: EXCISION tm Source of Specimen A: LIPOMA LARGE LEFT ARM Gross Description PRINCESS WILKES, LIPOMA LARGE LEFT ARM 5.8 x 4.5 x 3.8 cm circumscribed portion of fatty tissue with a few small areas of possible hemorrhage. There is no necrosis. Veterinary Milk Specialist sections 1cs. tm Microscopic Description Microscopic examination performed. SURGICAL PATHOLOGY CONSULTATION Patient Name: PRINCESS WILKES Med Rec: [id number] Path Number: [id number] CONS[facility] PATHOLOGISTS [employer] ANATOMIC PATHOLOGY [address] [place] [id number] [facility] Comment on above: Performed By: #### P PPVS #### [employer] [address] [place] [id number] Food Cooking Machine Operator: Nghia Casas MD VL Extremity Venous Duplex L monika Herrera 06-14-2021 VL Extremity Venous Duplex Lower Left Preliminary Technologist Report Right comparison appeared normal Left lower extremity: There appeared to be no evidence of acute or chronic DVT, all vessels appeared compressible and patent. Results called to Deanna in [facility] [place] office at 4:00pm Pacs Administrator: Beau Rocha, RVT Radiologist Report CLINICAL HISTORY: Left lower extremity swelling. EXAMINATION: Real-time sonogram of the left lower extremity was performed and supplemented with compression, augmentation and color flow Doppler. FINDINGS: Deep Veins: No thrombus. Compression and augmentation: Normal. Venous blood flow: Normal phasic flow. Superficial Veins: No superficial thrombus. Varicosities: None. Collaterals: Unremarkable. Other: Unremarkable. CONCLUSIONS: Negative study for acute or chronic deep vein thrombosis on the left. Final Signed by: Rocael Moreno MD Signed (Electronic Signature): 06.14.2021 5:11 pm Transcribed by: Beau Rocha Transcribed DT/TM: 06.14.2021 4:02 (If Report is Signed, Electronically Signed in Other Vendor System) Normal [facility] Vital Signs Date Time Vital Sign Value Performing Clinician Facility 06-25-2023 11:29040 Body temperature 97.7 [degF] Mike Hughes MD Work Phone: [facility] 06-25-2023 11:29040 Body weight 116.1 kg Mike Hughes MD Work Phone: [facility] 06-25-2023 11:290400 Diastolic blood pressure 54 mm[Hg] Mike Hughes MD Work Phone: [facility] 06-25-2023 11:29040 Heart rate 77 /min Mike Hughes MD Work Phone: [facility] 06-25-2023 11:29-0400 Respiratory rate 18 /min Mike Hughes MD Work Phone: [facility] 06-25-2023 11:29-0400 Systolic blood pressure 134 mm[Hg] Mike Hughes MD Work Phone: [facility] 06-25-2023 10:00-0400 Diastolic blood pressure 80 mm[Hg] Lj Liz MD Work Phone: [facility] 06-25-2023 10:00-0400 Heart rate 71 /min Lj Liz MD Work Phone: [facility] 06-25-2023 10:00-0400 Respiratory rate 16 /min Lj Liz MD Work Phone: [facility] 06-25-2023 10:00-0400 SaO2% (BldA) [Mass fraction] 97 % Lj Liz MD Work Phone: [facility] 06-25-2023 10:00-0400 Systolic blood pressure 153 mm[Hg] Lj Liz MD Work Phone: [facility] 06-25-2023 06:40-0400 Body temperature 97.7 [degF] Lj Liz MD Work Phone: [facility] 12-22-2022 15:00-0400 Diastolic blood pressure 88 mm[Hg] Martha Nazemi DO Work Phone: [employer] 12-22-2022 15:00-0400 Heart rate 62 /min Martha Nazemi DO Work Phone: [facility] [employer] 12-22-2022 15:00-0400 Respiratory rate 16 /min Martha Nazemi DO Work Phone: [facility] [employer] 12-22-2022 15:00-0400 SaO2% (BldA) [Mass fraction] 96 % Martha Nazemi DO Work Phone: [employer] 12-22-2022 15:00-0400 Systolic blood pressure 129 mm[Hg] Martha Malik DO Work Phone: [employer] 12-22-2022 14:32-0400 Body temperature 96.91 [degF] Martha Malik DO Work Phone: [employer] 12-22-2022 11:47-0400 Body height 166.4 cm Martha Malik DO Work Phone: [employer] 12-22-2022 11:47-0400 Body mass index (BMI) [Ratio] 43.43 kg/m2 Martha Malik DO Work Phone: [employer] 12-22-2022 11:47-0400 Body weight 120.2 kg Martha Malik DO Work Phone: [employer] Encounters Encounter Date Encounter Type Care Provider Facility Start: 08-15-2023 Social Work Britany DRAKE W Work Phone: Hematology/Oncology Start: 08-13-2023 Telephone encounter Georgina armas RN Work Phone: Hematology/Oncology Comment on above: Appointment Start: 08-09-2023 Refill Mike valencia MD Work Phone: Hematology/Oncology Comment on above: Refill Request Consent Presentation (IRB [phone] [id number]) Start: 08-08-2023 Telephone encounter Georgina armas RN Work Phone: Hematology/Oncology Comment on above: Patient Education (T ransplant) (BMT Planning) 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) Start: 08-07-2023 Refill Mike valencia MD Work Phone: Hematology/Oncology Comment on above: Refill Request Transplant Info Biopsy Request Start: 07-30-2023 End: 07-30-2023 ambulatory MIKE HUGHES Facility:[facility] Start: 07-30-2023 End: 07-30-2023 Follow-up encounter Mike Hughes MD Work Phone: Hematology/Oncology Comment on above: 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); Immunocompromised (HCC); Hospital discharge follow-up; Pancytopenia (HCC); Colitis Start: 07-30-2023 End: 07-30-2023 Telemedicine consultation with patient Mike Hughes MD Work Phone: [facility] Start: 07-18-2023 End: 07-18-2023 Evaluation and management of inpatient MELISSA PIERCE Facility:[facility] Start: 07-13-2023 End: 07-18-2023 Evaluation and management of inpatient ABDI CONTEH Facility:[facility] Start: 07-06-2023 Telephone encounter Aurelia valerio RN Work Phone: Hematology/Oncology Start: 07-02-2023 End: 07-02-2023 ambulatory MABELShelley PIERCE Facility:[facility] Start: 07-02-2023 End: 07-02-2023 ambulatory Mike Hughes MD Work Phone: Hematology/Oncology Comment on above: 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); Immunocompromised (HCC); Pancytopenia (HCC) Start: 07-02-2023 End: 07-02-2023 Telemedicine consultation with patient iMke Hughes MD Work Phone: [facility] Start: 06-27-2023 Orders Only Mike valencia MD Work Phone: Hematology/Oncology Comment on above: 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) Start: 06-25-2023 End: 06-25-2023 Patient encounter procedure Mike Hughes MD Work Phone: [facility] Start: 06-25-2023 End: 06-25-2023 ambulatory Mike Hughes MD Work Phone: Hematology/Oncology Comment on above: 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); Pancytopenia (HCC); History of breast cancer; Immunocompromised (HCC) Start: 06-25-2023 End: 06-25-2023 Subsequent hospital visit by physician Lj Liz MD Work Phone: [phone] Comment on above: 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) [C92.00] Start: 06-22-2023 Telephone encounter Agustina Quevedo MS W Hematology/Oncology Comment on above: Patient Question Start: 06-14-2023 End: 06-14-2023 ambulatory MIKE HUGHES Facility:[facility] Start: 06-14-2023 Telephone encounter Mary ramachandran [facility] Work Phone: [facility] Comment on above: Biopsy Request Start: 05-31-2023 Telephone encounter Chika Lagos Hem atology/Oncology Start: 05-28-2023 End: 06-07-2023 Evaluation and management of inpatient CINDI GONZALES Facility:[facility] Start: 05-28-2023 End: 05-29-2023 ambulatory Brianna Pham MD Work Phone: Hematology/Oncology Comment on above: 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); Infection due to Port-A-Cath, initial encounter Start: 05-28-2023 End: 05-28-2023 Patient encounter procedure Brianna Pham MD Work Phone: [facility] Start: 05-28-2023 End: 05-28-2023 Nursing evaluation of patient and report Aurelia Hines RN Work Phone: Hematology/Oncology Comment on above: 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) Start: 05-22-2023 ambulatory Facility:[facility] Start: 05-18-2023 ambulatory Facility:[facility] Start: 12-22-2022 End: 12-22-2022 ambulatory [facility] Start: 12-22-2022 End: 04-21-2023 Subsequent hospital visit by physician Martha Malik DO Work Phone: [facility] Comment on above: Acute postoperative pain (Primary Dx); Lipoma of left forearm Start: 08-11-2021 End: 08-11-[address] MELISSA PIERCE Facility:[facility] Start: 06-14-2021 End: 06-15-2021 ambulatory MELISSA PIERCE Facility:[facility] Procedures Date Procedure Procedure Detail Performing Clinician Start: 07-13-2023 Antibody screen MIKE HUGHES Comment on above: Order Comment: Speci men Type: BLOOD SPECIMENOrdering Facility: [facility] Address: [address] [place] [address] Performed By: #### T SCR ####[facility] BLOOD BANKCLIA [id number] [address] Start: 06-25-2023 FLOW CYTOMETRY FOR L EUKEMIA/LYMPHOMA (FCLL) PERFORMABLE Mike Hughes MD Work Phone: Start: 06-06-2023 Antibody screen MIKE HUGHES Comment on above: Order Comment: Speci men Type: BLOOD SPECIMENOrdering Facility: [facility] Address: [address] [place] [address] Performed By: #### T SCR ####[facility] BLOOD BANKCLIA [id number] [address] Start: 06-03-2023 Antibody screen MIKE HUGHES Comment on above: Order Comment: Speci men Type: BLOOD SPECIMENOrdering Facility: [facility] Address: [address] [address] Performed By: #### T SCR, [id number] ####CC [facility] BLOOD BANKCLIA [id number] [address] [place]#### [id number] ####[facility] LABCLIA [id number] [address] [place] Start: 05-31-2023 Antibody screen MIKE HUGHES Comment on above: Order Comment: Speci men Type: BLOOD SPECIMENOrdering Facility: [facility] Address: [address] [address] Performed By: #### T SCR ####CC [facility] BLOOD BANKCLIA [id number] [address] Start: 05-29-2023 Antibody screen MIKE HUGHES Comment on above: Order Comment: Speci men Type: BLOOD SPECIMENOrdering Facility: [facility] Address: [address] [address] Performed By: #### T SCR ####CC [facility] BLOOD BANKIA [id number] [address] Start: 05-02-2023 Lipid 1996 panel - Serum or Plasma Aurelia Hines RN Work Phone: Plan of Treatment Date Care Activity Detail Author Start: 05-22-2033 Urine microalbumin profile DTaP,Tdap,Td Vaccine (2 - Td or Tdap) [facility] Start: 05-02-2028 Lipid 1996 panel - S efra or Plasma Lipid Screening [facility] Start: 05-02-2028 Lipid panel Lipid Screening [facility] Start: 07-18-2026 Diabetes Screening Diabetes Screenin [facility] Start: 06-07-2026 [facility] Start: 05-31-2026 [facility] Start: 05-28-2026 Diabetes Screening Diabetes Screenin g [facility] Start: 11-22-2023 Mammography Mammogram Screening [facility] Start: 11-22-2023 Screening for malign ant neoplasm of breast Mammogram Screening [facility] Start: 08-28-2023 End: 11-27-2023 ACUTE LEUKEMIA NGS PANEL, BONE MARROW ACUTE LEUKEMIA NGS PANEL, BONE MARROW Lab Routine 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) Expected: 08/28/2023, Expires: 11/27/2023 [facility] Work Phone: Comment on above: Expected: 08/28/2023 , Expires: 11/27/2023 Start: 08-28-2023 End: 11-27-2023 BONE MARROW ANALYSIS BONE MARROW ANALYSIS Lab Routine 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) Expected: 08/28/2023, Expires: 11/27/2023 [facility] Work Phone: Comment on above: Expected: 08/28/2023 , Expires: 11/27/2023 Start: 08-28-2023 End: 11-27-2023 CBC W Auto Differential panel - Blood CBC + DIFF Lab Routine 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) Expected: 08/28/2023, Expires: 11/27/2023 [facility] Work Phone: Comment on above: Expected: 08/28/2023 , Expires: 11/27/2023 Start: 04-03-2023 Influenza vaccination Flu vacc ine (Season Ended) [facility] Start: 01-03-2023 End: 01-03-2023 Patient encounter procedure 01/03/2023 Office Visit General Surgery Martha Malik I, [address] [place] [address] [place] [phone] [facility] Start: 12-22-2022 End: 12-22-2022 Exc b9 lesion mrgn xcp sk tg t/a/l 0.5 cm/< ARM LESION BIOPSY EXCISION Lipoma of left forearm 12/22/2022 1:52 PM EDT [facility] Start: 11-17-2022 Annual Wellness Visi t (AWV) Annual Wellness Visit (AWV) [facility] Start: 09-03-2022 Advance Directive Discussion Advance Directive Discussion [facility] Start: 01-13-2021 COVID-19 Vaccine (3 - Booster for Pfizer series) COVID-19 Vaccine (3 - Booster for Pfizer series) [facility] Start: 12-16-2020 Covid-19 Vaccine (3 - Pfizer risk series) Covid-19 Vaccine (3 - Pfizer risk series) [facility] Start: 2018 Bone Density Screening Bone Density Screening [facility] Start: 2018 Screening for osteoporosis Bone Density Screening [facility] Start: 05-22-2016 Shingles vaccine (2 of 3) Shingles vaccine (2 of 3) [facility] Start: 05-22-2016 Shingrix Vaccine (1 of 2) Shingrix Vaccine (1 of 2) [facility] Start: 2013 RSV Vaccine (1 - 1-d ose 60+ series) RSV Vaccine (1 - 1-dose 60+ series) [facility] Start: 2008 Screening for osteoporosis DEXA (modify frequency per FRAX score) [facility] Start: 2003 Screening for malign ant neoplasm of breast Breast cancer screen [facility] Start: 1998 Cologuard (FIT-DNA) Cologuard (FIT-D NA) [facility] Start: 1998 Colonoscopy Colonoscopy [facility] Start: 1998 Colorectal Cancer Screening Colorectal Cancer Screening [facility] Start: [address] COLONOGRAPHY [facility] Start: 1998 Fecal Occult Blood Fecal Occult Bloo d [facility] Start: 1998 Screening for malign ant neoplasm of colon [facility] Start: 1998 SIGMOIDOSCOPY SIGMOIDOSCOPY [facility] Start: 1993 Lipid panel Lipids [facility] Start: 1988 Diabetes screen Diabetes screen [facility] Start: 1972 DTaP/Tdap/Td vaccine (1 - Tdap) DTaP/Tdap/Td vaccine (1 - Tdap) [facility] Start: 1971 Hepatitis C screening Hepatitis C sc reen [facility] Start: 1965 Depression Screen Depression Screen [facility] AML MRD BY FC AML MRD BY FC La b Routine 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) 06/25/2023 8:27 AM EDT [facility] Work Phone: BONE MARROW ANALYSIS BONE MARROW ANALYSIS Lab Routine 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) 06/25/2023 8:55 AM EDT [facility] Work Phone: BONE MARROW CHROMOSO ME ANAL BONE MARROW CHROMOSOME ANAL Lab Routine 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) 06/25/2023 8:27 AM EDT [facility] Work Phone: Diagnostic bone jaylon ow biopsies IMAGING GUIDED BIOPSY BONE MARROW (HEMATOLOGY) Radiology Routine 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) Ordered: 08/08/2023 [facility] Work Phone: Comment on above: Ordered: 08/08/2023 DNA EXTRACTION BONE MARROW (BUFFY COAT) DNA EXTRACTION BONE MARROW (BUFFY COAT) Lab Routine 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) 06/25/2023 8:27 AM EDT [facility] Work Phone: FLT3 ITD HN BONE MARROW FLT3 ITD HN BONE MARROW Lab Routine 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) 06/25/2023 8:27 AM EDT [facility] Work Phone: MYELOID NGS PANEL ZEENAT NE MARROW MYELOID NGS PANEL BONE MARROW Lab Routine 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) 06/25/2023 8:27 AM EDT [facility] Work Phone: Surgical Pathology Surgical Path ology Lab Routine Lipoma of left forearm Release Upon Ordering for 1 Occurrences starting 12/22/2022 [facility] Work Phone: Comment on above: Release Upon Orderin g for 1 Occurrences starting 12/22/2022 [facility] MC ANGIO HB6 [facility] Immunizations Immunization Date Immunization Notes Care Provider Fa [facility] 05-22-2023 influenza (HD-IIV4) vaccine, age 65+ yr, high dose, quadrivalent, PF (FLUZONE HIGH-DOSE) Aurelia Hines RN Work Phone: [facility] 05-22-2023 tetanus toxoid, redu armaan diphtheria toxoid, and acellular pertussis vaccine, adsorbed Aurelia Hines RN Work Phone: [facility] 08-04-2019 pneumococcal polysaccharide vaccine, 23 valent Aurelia Hines RN Work Phone: [facility] 06-17-2018 influenza, injectabl e, quadrivalent, preservative free Aurelia Hines RN Work Phone: [facility] 06-17-2018 pneumococcal conjuga te vaccine, 13 valent Aurelia Hines RN Work Phone: [facility] 06-03-2017 influenza, injectabl e, quadrivalent, preservative free Aurelia Hines RN Work Phone: [facility] 07-17-2016 influenza, injectabl e, quadrivalent, preservative free Aurelia Hines RN Work Phone: [facility] 06-03-2016 seasonal influenza, intradermal, preservative free Aurelia Hines RN Work Phone: [facility] 03-27-2016 zoster vaccine, live Aurelia moser RN Work Phone: [facility] Payers Date Payer Category Payer Medicare [id number] 2023 Private Health Insurance AET[employer] A ETNA MEDICARE SUPPLEMENT [id number] 2023-Present [phone] [address] [address] [place] [address] Indemnity [id number] 2021 Unknown 2018 Medicare 1961 Medicare [id number] 1959 Unknown [id number] 1955 Unknown [id number] 1955 Unknown [id number] 1955 Unknown [id number] Social History Date Type Detail Facility Start: 12-07-2022 Tobacco smoking stat us [facility] Tobacco smoking consumption unknown [facility] [employer] Start: 09-04-2013 End: 12-07-2022 Tobacco use and exposure Smokeless tobacco non-user [employer] Phone: Start: 12-22-2022 End: 07-16-2023 Alcohol intake Current drinker of alcohol (finding) [employer] Phone: Start: 12-22-2022 End: 05-28-2023 Alcohol intake [facility] Start: 1955 Sex Assigned At Not on file [facility] [employer] Phone: Start: 12-12-2022 End: 12-22-2022 Exposure to SARS-CoV-2 (event) Not sure [employer] Start: 09-04-2013 Tobacco smoking stat [facility] Never smoked tobacco [facility] Start: 05-28-2023 End: 06-11-2023 Tobacco use panel [facility] Adult Depression Screening Assessment 0 [facility] Start: 09-04-2013 Alcohol Comment social [facility] Start: 1955 Sex Assigned At Female C [facility] Start: 05-22-2023 Gender identity Identifies as female gender (finding) [facility] Clinical Notes 09-11-2013 to 08-15-2023 Britany Lozada LSW - 08/15/2023 1:38 PM ESTTelephone Encounter - Amrita Pelaez - 08/14/2023 8:56 AM ESTTelephone Encounter - Robinson Benito MD - 08/08/2023 5:09 PM EST Note Date & Type Note Facility 08-15-2023 Note [facility] 08-15-2023 History of Present illness Narrative SOCIAL WORK FOLLOW UP NOTE: [facility] Date of service:07/16/2023 Princess Wilkes is being seen for a follow up social work visit. Today's visit includes: spouse and patient TOPICS ADDRESSED: coping/support and community resources PLAN: Provide emotional support to patient/family, Referral to community resource , and Monitor patient response to treatment F/U APPOINTMENT: PRN Assigned SW listed in Care Team tab: Yes Recieved message from team asking that we reach out to patient for lodging concerns. Patient is a 68 year old female with AML. Spoke with patient and . Both stated they stayed at [facility] in the past and needed to stay for the visit in August (message sent to network operations manager regarding same). stated a referral has been sent to [facility] for the September stay. Mickie will meet with the BMT social insurance specialist at the August visit. Therefore, message sent to her regarding above. Provided support and encouragement. FREDRICK Morgan documented in this encounter [facility] 08-14-2023 Miscellaneous Notes Spoke to pt and scheduled biopsy for 08/30/23. RADIOLOGIST REQUEST / APPROVAL FORM STAFF RADIOLOGIST:Dr. Chauhan PROCEDURE TO BE DONE UNDER: CT PROCEDURE REQUESTED: CORE Requested PROCEDURE: Approved TIME SLOT NEEDED: 1 Hour NOTES: Bone marrow biopsy SPECIAL LABS/ PROCESSING: To be placed by heme/onc Pre-procedure labs: CBC: not needed INR: not needed COVID: not needed SIR Bleeding risk category for this procedure: low risk. Reference from [facility] Paralegal: [email or web address].[email or web address] STAFF SIGNATURE: Robinson Benito MD DATE: August 08, 2023 TIME: 5:09 PM BX. COORDINATOR INFORMATION LAB RESULTS: PT INR (no units) Date Value 10/30/2013 1.0 INR (no units) Date Value 05/31/2023 1.1 APTT (sec) Date Value 10/30/2013 32.2 Platelet Count (k/uL) Date Value 07/18/2023 18 12/25/2013 235 Current Outpatient Medications Medication Sig posaconazole DR (NOXAFIL) 100 mg tablet Take 3 tablets by mouth once daily. sodium chloride 0.9 %, flush, (BD POSIFLUSH) syringe Inject 10 mL intravenously once daily. Flush each lumen with 10mL NS once daily. loperamide (IMODIUM) 2 mg cap(s) Take 1 capsule by mouth two times a day as needed for diarrhea. simethicone, chewable (MYLICON) 80 mg chewable tablet Take 1 tablet by mouth every 6 hours as needed. levoFLOXacin (LEVAQUIN) 500 mg tablet Take 1 tablet by mouth once daily. Do not take while taking the 750mg tablets, resume this dose on 07/29/23 acyclovir (ZOVIRAX) 400 mg tablet Take 1 tablet by mouth two times a day. OLANZapine (ZYPREXA) 2.5 mg tablet Take 1 tablet by mouth daily at bedtime. omeprazole (PRILOSEC) 20 mg capsule Take 20 mg by mouth once daily. ondansetron orally disintegrating (ZOFRAN ODT) 4 mg disintegrating tablet Take 4 mg by mouth every 8 hours as needed for nausea/vomiting. buPROPion (WELLBUTRIN) 75 mg tablet Take 75 mg by mouth once daily. No current facility-administered medications for this visit. ALLERGIES Allergen Reactions Vicodin [Hydrocodon* Mental Status Change FILMS SENT TO WORKSTATION: GUIDELINES FOR HOLDING ANTI-PLATELET AND ANTI- COAGULATION THERAPY: none on file NURSE SIGNATURE: Edel Hobbs LPN DATE: August 08, 2023 TIME: 7:16 AM STAFF-INITIATED RADIOLOGY BIOPSY / ASPIRATION / DRAIN REQUEST FORM Date: August 07, 2023 Time: 3:23 PM PATIENT CONTACT INFORMATION: Best way to reach patient [phone]. SCHEDULING: Date: 08/28/23 (Specific requests must be greater than 10 business days from the date of request) RADIOLOGY SERVICE GROUP (Abdominal / Thoracic / MSK / Neuro): Bone- Biopsy Site: Bone, iliac crest SPECIFICS OF THE REQUEST (Please be as detailed as possible): BIOPSY of MASS - BONE (Specify) iliac crest / Biopsy Type: Core Biopsy, 11cm/fine needle aspiration SPECIAL REQUESTS: TISSUE SAMPLE, LABWORK: Routine Evaluation MEDICAL DIAGNOSIS: Acute Myeloid Leukemia (i.e. Known primary cancer or suspected diagnosis) IMAGING STUDY AND DATE THAT IS THE BASIS OF THE REQUEST: CT Date: 08/28/23 (Note: Requests for random organ biopsies, specifically liver and kidney random biopsies do not need imaging.) IMAGING: [facility] (If the imaging was obtained outside the [facility] system, PLEASE upload for review prior to approval.) Note to all persons requesting biopsies: All biopsy requests will be scheduled as quickly as possible, based on the clinical urgency, availability of appointment times, the need to hold anti-thrombolytic therapy (aspirin and other blood thinners) and the patient s schedule, including the need for an available full service vending driver. If a percutaneous biopsy or drainage is not felt to be safe or an alternative method for establishing a diagnosis is possible, this will be discussed directly with the requesting physician. documented in this encounter [facility] 08-13-2023 Miscellaneous Notes Princess's , De, called to clarify lab needed the week of 09/04/2023. He is aware the lab will be scheduled on the same day Princess paula's Dr. Pham. Also informed De that per BMT BUSINESS ANALYSIS SPECIALIST, Princess's bone density done in October 2021 will be her baseline prior to BMT. De confirmed Princess has received and been reading through the [facility] BMT study consent, and they do not have questions at this time. He verbalized understanding of all the above and is aware to call with questions or concerns. Georgina Kumar RN documented in this encounter [facility] 08-09-2023 Miscellaneous Notes Pt's copay to get posaconazole through [facility] is $4k. Previously it was sent through [employer], will change script to [employer] instead. Estephanie Parada RN documented in this encounter [facility] 08-08-2023 Miscellaneous Notes [facility] INITIAL TELEPHONE CONTACT Spoke with Princess Wilkes and her , De, on the telephone on 08/08/2023 at 10:10. Princess Wilkes informed that hard copy of education binder will be given to patient at pre-transplant evaluation and link to education binder provided to patient via [employer] secure patient message. Princess Wilkes is currently receiving chemotherapy. Cycle 3 of Vidaza/Milton began on 08/06/2023. Princess Wilkes is aware to call me if there are any changes in health condition or scheduled chemotherapy dates. Reviewed pre-transplant screening tests, need to meet BMT criteria, and insurance approval process. Princess Wilkes aware to contact us if there are any updates or changes to her health insurance. Her De confirmed insurance will be Medicare A&B for and they also have picked up prescription coverage for 2023. Princess Wilkes agrees to HIV testing. Reinforced need to see dentist for dental clearance, and that all dental work needs to be completed prior to transplant admission. She will be seeing her local dentist on 08/15/23 and discussed need for antibiotic prophylaxis with any cleaning or dental work. Also reviewed that when her WBC or platelets are low, dental cleaning or dental work might be contraindicated. Discussed central line placement (CYR OR PORT) and NPO requirements. Discussed requirement to have 24 hour caregiver post-transplant and to reside within one hour driving distance from [facility] for at least 100 days post-transplant. Her De will be her primary caregiver and they might stay at [facility] post BMT. Female fertile? No Ovarian suppression indicated? No Received blood products? Yes Blood product reactions? Yes, 1 tiny hive. Gets benadryl and tylenol premeds. HTN?No Any type of line? Yes, type: PICC Anticoagulations? No CPAP? No Patient instructed to bring nausea medications and pain medications to outpatient appointments just in case they are needed. Notified Princess Wilkes that she will be receiving a treatment calendar in the mail. Contact information for RN was given. All questions answered and patient verbalized understanding. Georgina Kumar RN documented in this encounter [facility] 07-30-2023 Note [facility] 07-30-2023 History of Present illness Narrative Images from the original note were not included. This is a virtual visit using The [employer] Video Visit. It required patient-provider interaction for the medical decision making as documented below. I have communicated my name and active licensure. The patient's identity and physical location were verified at the time of this visit. Either the patient or their legal auto claim representative has been informed of the risks and benefits of -- and alternatives to -- treatment through a remote evaluation and consents to proceed with the evaluation remotely. 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 RUNX1 (F40Wfs*14; 20.9%); TP53 (C238Y; 63.9%); DNMT3A (R635W; 34.4%) 06/01/23 - C1D1 Aza (7days) + Milton 100 mg (7 days) with concomitant Posa (WBC 1.73, Hb 6.6, Plt 10, ANC 0.23) 07/02/23 - C2D1 Aza (7days) + Milton 100 mg (7 days) with concomitant Posa (WBC 1.0, Hb 7.4, plt 13, ANC 0.18) Complications: - Aza/Milton was initiated inpatient at [facility] main (admitted due to concern for port infection) - Diverticulitis - hospitalized 06/18/23 - treated with abx - discharged on 06/20/23 - platelet transfusions 06/13/23 and 06/26/23 - After C2 was admitted again for fever, abdominal infection, transferred to [facility] And was treated with Zosyn, needed PRBCs and platelets when hospitalized Interval history: Today Princess is C2D29 of Aza + Milton (7 days). She was scheduled to start C3 today however her ANC last week was 0.[address] Macdonald and I discussed delaying her next cycle by a week. After C2 she had another bout of fever and was admitted (transferred to [facility]) and treated with Zosyn. She needed platelet transfusions and RBC while hospitalized - last 07/17/23 - has not needed transfusions since then. Labs at Dr. Escobar office - 07/24/23 - WBC 0.6, ANC 0.1, Plt 69 and Hb 8.7. She is set up for twice weekly labs with Dr. Macdonald. History Of Present Illness: Ms. Princess Wilkes is a 67 year old female with prior Stage 1 ([id number]) L breast invasive and DCIS, 1.5 cm, grade 2, ER/VA positive and HER2 negative s/p L lumpectomy Sep 2013 followed by adjuvant RT to L breast completed 01/06/14. Oncotype Dx 13 - so no chemo was offered. She then completed 5 years of endocrine therapy from 01/2014 - 01/2019 - letrozole followed by tamoxifen (x1 year). She presented to the ER on 05/03/23 at [facility] with generalized weakness, dizziness, exertional dyspnea for a few weeks. Prior to this she was feeling well, did take a couple extra naps during the summer. Work up including CXR, trop, COVID/flu swab, Hep panel, HIV was negative. She remained afebrile. CBC showed WBC 2.1 with no blasts, 89% lymphocytes, Hb 8.9, plt 20. CT TAP was done, CT chest was negative for any metastatic disease to thorax and showed L breast postoperative changes. R breast inferior medial soft tissue nodule was seen 1.2 cm - indeterminate. CT AP was normal. She was discharged with a plan to get OP BMBx. She was discharged on cipro 500 mg BID. She then saw Dr. Sherry Macdonald outpatient and a BM Bx was done on 05/08/23. BMBx - 05/08/23 - hemodilute specimen, clot sections with foci of hematopoietic marrow effaced by an immature/blastic population (morphologic eval) and flow cytometry significant for 29.8% CD34 positive myeloblasts, consistent with AML. CBC WBC 1.42, ANC 0.14, Hb 8.3, plt 20 Cytogenetics 43~45,XX,add(1)(q21),del(3)(q21q25 ),add(4)(q21),-5,add(7)(q11.2),del (7)(q32),-9,add(9)(q13),nehemiah(11)t(1 ;11)(q21;q23),-12,-16,+mar[cp17] NGS showed RUNX1 (F40Wfs*14; 20.9%); TP53 (C238Y; 63.9%); DNMT3A (R635W; 34.4%) After she had the bone marrow bx on 05/08/23 - she had another ER visit for syncope. CBC showed WBC 1.2, Hb 7.3, plt 20. She was transfused one unit PRBC and discharged home. 05/03/23 2.1 0.1 8.9 20 05/11/23 1.6 0.12 8.4 26 05/25/23 1.4 8.5 59 She presented on 05/28/23 to establish care with us. There was concern for line related infection so she was admitted, her port was removed and treatment was initiated inpatient. 06/01/32 - C1D1 of Aza + Milton (7 days) Labs: 06/12/23 CBC - 0.9 0.09 9.3 10 Darlyn - [phone] Past MHx: PAST MEDICAL HISTORY Diagnosis Date AML (acute myeloid leukemia) (HCC) 05/28/2023 Ankle fracture Depression Hypoxia 07/14/2023 -Patient with new oxygen requirement 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 -On physical exam, diminished lung sounds in the lower lobes -CT Chest - bibasilar atelectasis, no signs of infection -Now weaned to RA Plan: -Continue to monitor ---now resolved Malignant neoplasm of breast (female), unspecified site 09/2013 left breast Prolapsed uterus ALLERGIES Allergen Reactions Vicodin [Hydrocodon* Mental Status Change Current Medications: sodium chloride 0.9 %, flush, (BD POSIFLUSH) syringe Inject 10 mL intravenously once daily. Flush each lumen with 10mL NS once daily. loperamide (IMODIUM) 2 mg cap(s) Take 1 capsule by mouth two times a day as needed for diarrhea. simethicone, chewable (MYLICON) 80 mg chewable tablet Take 1 tablet by mouth every 6 hours as needed. levoFLOXacin (LEVAQUIN) 500 mg tablet Take 1 tablet by mouth once daily. Do not take while taking the 750mg tablets, resume this dose on 07/29/23 acyclovir (ZOVIRAX) 400 mg tablet Take 1 tablet by mouth two times a day. OLANZapine (ZYPREXA) 2.5 mg tablet Take 1 tablet by mouth daily at bedtime. posaconazole DR (NOXAFIL) 100 mg tablet Take 3 tablets by mouth once daily. omeprazole (PRILOSEC) 20 mg capsule Take 20 mg by mouth once daily. ondansetron orally disintegrating (ZOFRAN ODT) 4 mg disintegrating tablet Take 4 mg by mouth every 8 hours as needed for nausea/vomiting. buPROPion (WELLBUTRIN) 75 mg tablet Take 75 mg by mouth once daily. ROS: 12 point ROS negative other than HPI. Physical Exam: Performance Status: 0- Fully active, able to carry on all pre-disease performance w/o restriction. General appearance: alert, in no acute distress Skin: No rashes, no lumps Head: normocephalic, atraumatic Eyes: Anicteric sclera. Labs Imaging/ Pathology Reports: CBC Latest Ref Rng & Units 07/18/2023 WBC 3.70 - 11.00 k/uL 0.47(L) RBC 3.90 - 5.20 m/uL 2.59(L) HEMOGLOBIN 11.5 - 15.5 g/dL 7.8(L) HEMATOCRIT 36.0 - 46.0 % 22.8(L) MCV 80.0 - 100.0 fL 88.0 MCH 26.0 - 34.0 pg 30.1 MCHC 30.5 - 36.0 g/dL 34.2 RDW-CV 11.5 - 15.0 % 15.8(H) PLATELETS 150 - 400 k/uL 18(L) MPV 9.0 - 12.7 fL - BASO% % - ABS NEUT (ANC) 1.45 - 7.50 k/uL - ABS LYMPH 1.00 - 4.00 k/uL - ABS MONO <0.87 k/uL - ABS EOSIN <0.46 k/uL - ABS BASO <0.11 k/uL - NRBC /100 WBC 0.0 META% % - MYELO% % - ANISOCYTOSIS - - LEFT SHIFT - - OVALOCYTES - - POLYCHROMASIA - - RBC FRAGMENTS None Seen - TARGET CELLS - - PLATELET ESTIMATE - - CMP Latest Ref Rng & Units 07/18/2023 SODIUM 136 - 144 mmol/L - POTASSIUM 3.7 - 5.1 mmol/L 4.0 CHLORIDE 97 - 105 mmol/L - CO2 22 - 30 mmol/L - GLUCOSE 74 - 99 mg/dL - BUN 7 - 21 mg/dL - CREATININE 0.58 - 0.96 mg/dL - EGFR >=60 mL/min/1.73m - EGFR-ALL OTHER RACES . - EGFR- - - PROTEIN, TOTAL 6.3 - 8.0 g/dL - ALBUMIN 3.9 - 4.9 g/dL - CALCIUM, TOTAL 8.5 - 10.2 mg/dL - BILIRUBIN, TOTAL 0.2 - 1.3 mg/dL - AST 13 - 35 U/L - ALT 7 - 38 U/L - ALKALINE PHOSPHATASE 34 - 123 U/L - INR Date Value Ref Range Status 05/31/2023 1.1 0.9 - 1.3 Final Comment: Vitamin K Antagonist (VKA) Therapeutic Range: INR 2 to 3 (Target INR of 2.5) Note: For patients treated with VKA drugs, such as warfarin, the [place] [employer] 2012 Guideline recommends a therapeutic INR range of 2 to 3 (target INR of 2.5). This recommendation includes high-risk patients with antiphospholipid syndrome with previous arterial or venous thromboembolism, current-generation mechanical or bioprosthetic aortic heart valve replacement. Note: Patients with mechanical aortic valve replacement and additional risk factors for thromboembolic events (atrial fibrillation, previous thromboembolism, LV dysfunction, hypercoagulable conditions) or an older generation mechanical AVR (i.e., ball in-Cage) or any mechanical MVR should have a INR therapeutic range of 2.5 to 3.5 (target INR of 3). Beltran GH, et al. Chest 2012, 141:7S-47S Margo RA, et al. [facility] 2017, 70: 252-289 BONE MARROW ANALYSIS: [id number] Order: [id number] Collected 06/25/2023 8:55 AM Status: Final result Visible to patient: No (scheduled for 07/02/2023 4:43 PM) Dx: 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 ach... 0 Result Notes Component FINAL DIAGNOSIS A-C. Bone marrow, aspirate smear, touch imprint and core biopsy, with clot section: - Persistent acute myeloid leukemia with 7% blasts and increased reticulin fibrosis (MF-1). - Cellular marrow (~30-40%) showing trilineage hematopoiesis with dysmegakaryopoiesis. - See comment. / June 26, 2023 Diagnosis Comment The patient is a 68-year-old female with history of acute myeloid leukemia with mutated TP53, therapy-related (ICC 2021), status post therapy. Evaluation is limited due to the very suboptimal aspicular and hemodilute aspirate smears. Morphologic review demonstrates a relatively normocellular to mildly hypercellular marrow (~30-40%) showing trilineage hematopoiesis with dysmegakaryopoiesis and left shifted granulopoiesis including increased blasts, estimated to be 7% on manual differential counts and approximately 5-10% on the CD34 immunohistochemical stain. Reticulin stain highlights increased reticulin fibrosis (MF-1, scale 0-3). Overall, the findings are consistent with persistent acute myeloid leukemia. Correlation with the clinical findings and the results of the pending cytogenetic, molecular NGS and the send out flow cytometry based acute myeloid leukemia minimal residual disease (AML MRD) studies is recommended. Parts of this case were also reviewed by Dr.James Hernandez from the hematopathology section at the [facility], and he concurs with the above rendered final diagnosis and interpretation. Laboratory Developed Test (LDT) Disclaimer: Performance characteristics of immunohistochemical, immunofluorescent and chromogenic in-situ hybridization tests have been determined by the performing laboratory within [facility] s Aurelio Alberto [facility] [place] [facility] [place] ([facility], [facility], [facility], [facility], [facility], [facility], or [facility]) in a manner consistent with CLIA requirements. One or more of these tests have not been cleared or approved by the FDA. [facility] is regulated under CLIA as qualified to perform high-complexity testing. These tests are used for clinical purposes. They should not be regarded as investigational or for research. Positive and negative controls stain appropriately. Microscopic Description PERIPHERAL BLOOD: N0 CBC data or peripheral blood smear available for review. BONE MARROW ASPIRATE: Differential counts performed on the aspicular, hemodilute touch imprint may not be entirely auto claim representative of the true marrow cellularity. Result Normal Range 7 % Blasts 0-2 1 % Promyelocytes 1-5 30 % Myelos/Metas/Bands/Segs 32-72 0 % Eosinophils 1-6 1 % Basophils 0-1 1 % Monocytes 0-4 15 % Erythroid precursors 13-37 43 % Lymphocytes 7-23 2 % Plasma cells 0-2 Myeloid/Erythro (1.5-4): 2.6. Cells counted: 300. Iron stain result: Aspicular, hypocellular iron stain smear is inadequate for evaluation of stainable iron and ring sideroblasts. Specimen Quality: Markedly hemodilute, aspicular and hypocellular aspirate smears and touch imprint. Differential count performed on the touch imprint Megakaryocytes: Not seen. Erythropoiesis: Too few erythroid precursors seen to assess morphology and maturation. Granulopoiesis: Left shifted with increased blasts, abnormally granulated and hypogranular myeloid precursors seen. Other: Scattered plasma cells. BONE MARROW BIOPSY: Adequacy: Suboptimal (fragmented, crush and aspiration artifact. Cellularity: Normal , approximately 30-40%. ME ratio: Normal. Hematopoiesis: Trilineage hematopoiesis. Megakaryocytes: Decreased. Megakaryocyte morphology: Very few megakaryocytes are seen showing unremarkable morphology. Lymphoid infiltrate: Very small interstitial lymphoid aggregate is seen predominantly mostly small lymphocytes Bone trabeculae: Bone remodeling changes present in few areas. Other: Scattered macrophages, including pigment laden macrophages and plasma cells present. Immunohistochemical and special stains were performed on sections from the core biopsy (block B1) for further evaluation of the bone marrow. CD34 highlights increased scattered positive blasts, approximately 5-10%. CD61 highlights many positive megakaryocytic cells, including many very small hypolobated forms and micromegkaryoctes, with possible coexpression on some of the CD34 positive cells. Reticulin stain highlights increased reticulin fibrosis, MF-1 (scale 0-3). CLOT SECTION: Marrow particles: Rare small cellular particle is seen. Morphology: Not evaluable. ANCILLARY TESTS: Flow cytometry: In-house flow cytometry not performed. Send out AML MRD studies pending Cytogenetics: Pending. FISH: Not performed. Molecular: Buffy coat stored. Gross Description A. BONE MARROW ASPIRATE RIGHT POSTERIOR ILIAC CREST Received are air-dried bone marrow aspirate smears. Submitted for light microscopy. B. BONE MARROW BIOPSY RIGHT POSTERIOR ILIAC CREST Received in formalin are two segments of cylindrical tissue aggregating to 2.5 x 0.3 x 0.3 cm, payne to red-brown and of a firm consistency. Totally submitted in formalin in one cassette after decalcification. Bone marrow touch imprints also received. Submitted for light microscopy. C. BONE MARROW CLOT RIGHT POSTERIOR ILIAC CREST Received in formalin is a segment of red-brown hemorrhagic material measuring 2.0 x 1.4 x 0.6 cm. Totally submitted in one cassette. Performing Lab Diagnostic interpretation performed at [facility], [facility] [address] [facility]# [id number] Disease Education Specialist: Boris Wood M.D. Assessment and Plan: Ms. Princess Wilkes is a 67 year old female with prior Stage 1 ([id number]) L breast invasive and DCIS, 1.5 cm, grade 2, ER/VA positive and HER2 negative s/p L lumpectomy Sep 2013 followed by adjuvant RT to L breast completed 01/06/14. Oncotype Dx 13 - so no chemo was offered. She then completed 5 years of endocrine therapy from 01/2014 - 01/2019 - letrozole followed by tamoxifen. # t-AML with TP53 Complex cytogenetics, NGS showed RUNX1 (F40Wfs*14; 20.9%); TP53 (C238Y; 63.9%); DNMT3A (R635W; 34.4%) ELN 2021 - Adverse Risk Reviewed repeat BMBx from 06/05/23, cytogenetics and NGS results with the patient 20% blasts on aspirate. Same TP53 was again noted on our NGS panel Patient was admitted to our hospital for concern for line related infection and discharged on 06/07/23. 06/01/23 C1D1 Aza (7 days) + Milton 100 mg (7 days) with concomitant Posaconazole She has been doing well since discharge and has not required any blood since discharge, she did get a unit of platelets on 06/13/23 and another unit of platelets on 06/26/23 06/25/23 - C1D25 - bone marrow bx showed reduction in blasts from 20-28% to 7% - >50% reduction however still persistent disease 07/02/23 - C2D1 Aza (7days) + Milton 100 mg (7 days) with concomitant Posa (WBC 1.0, Hb 7.4, plt 13, ANC 0.18) Labs 07/24 - WBC 0.6, ANC 0.1, Plt 69 and Hb 8.7. Last platelet transfusion was 07/17 - platelets are showing recovery, discussed. Plan: We discussed continuing Azacitidine and Venetoclax locally with Dr. Macdonald - next planned cycle delayed by a week (awaiting count recovery - especially ANC at least a 0.5), dose and recommendations for Venetoclax were discussed in details Recommendations as noted prior include: - Further marrows depending on count recovery - Dose of venetoclax should be based on concurrent antimicrobials, our recommendations include posaconazole 300 mg qday, levofloxacin 500 mg qday and acyclovir 400 mg BID along with 100 mg of Venetoclax - Continue twice weekly labs with transfusion support to maintain PRBC>8 and Plt>10. Patient was seen by our BMT team as well - recommend BMT based on MRD negative status RTC in 5 weeks via virtual visit prior to C4 We will also have her see our genetic counselor given TP53 >50% - pending # Infectious: - Patient is immunocompromised - We discussed that if Ms. Sánchez develops single oral temperature of ?38.3 C (101 F) or a temperature of ?38.0 C (100.4 F) sustained over a one-hour period, she should seek medical attention urgently. - Hospitalized two weeks ago and treated with Zosyn, has been afebrile since discharge. Plan: - Anti-bacterial: Levofloxacin - Anti-viral: Acyclovir - Anti-fungal: Posaconazole # Pancytopenia 2/2 to AML Transfuse as needed # Constipation # Colitis Discussed bowel regimen - Senna S and/or miralax Avoid probiotics given neutropenic status # Prior Breast CA Stage 1 ([id number]) L breast invasive and DCIS, 1.5 cm, grade 2, ER/VA positive and HER2 negative s/p L lumpectomy Sep 2013 followed by adjuvant RT to L breast completed 01/06/14. Oncotype Dx 13 - so no chemo was offered. She then completed 5 years of endocrine therapy from 01/2014 - 01/2019 - letrozole followed by tamoxifen (x1 year). F/u with local onc I answered Ms. Wilkes questions. she verbalized understanding the plan, including alternatives. Ms. Wilkes agreed with these recommendations and plan. I spent a total of 40 minutes on the date of the service which included preparing to see the patient, [id number] patient care, completing clinical documentation, obtaining and/or reviewing separately obtained history, and performing a medically appropriate examination. Mike Hughes MD Hematology and Medical Oncology, Leukemia Division 06/25/23 cc: Mike Hughes [address] [place] [address] Melissa Pierce MD [address] [facility] [id number] documented in this encounter [facility] 07-18-2023 Note [facility] 07-17-2023 Note [facility] 07-16-2023 Note [facility] 07-16-2023 Note [facility] 07-15-2023 Note [facility] 07-14-2023 Note [facility] 07-14-2023 History of Past i llness Narrative Problem Noted Date Diagnosed Date Resolved Date Hypoxia 07/14/2023 07/16/2023 Overview: -Patient with new oxygen requirement 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 -On physical exam, diminished lung sounds in the lower lobes -CT Chest - bibasilar atelectasis, no signs of infection -Now weaned to RA Plan: -Continue to monitor ---now resolved Diarrhea 05/31/2023 06/07/2023 Overview: > Reporting diarrhea starting 05/30 > no abd pain or fevers > C diff negative 06/03 >Improving with imodium as of 06/05/23 Plan: - Imodium PRN Central line infection, initial encounter 05/28/2023 06/07/2023 Overview: > port placed at OSH on 05/25/23; pain, redness tracking up neck noted on 05/26 -- presented to OSH ED on 05/27, given pain medication, Tylenol and d/c'd home > seen at [facility] on 05/28 by heme/onc and BMT who recommended admission for concerns for port infection > blood cxs x2 obtained -- NGTD > no fevers BLOOD TYPER, 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; 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 > ID consulted, appreciate assistance; now signed off > started vanc and Zosyn 05/28; Zosyn d/c'd 05/30 per ID recs > port removed 05/29 > port site now much improved w/remaining erythema and tenderness at venotomy site > Vanc (05/28-06/01) transitioned to PO doxy on 06/01 in setting of rising sCr. Completed course of abx 06/03/23. > Site improved w/abx w/mild residual erythema at venotomy site Plan: - monitor port site - Has completed full course of abx Breast cancer 09/11/2013 05/28/2023 documented as of this encounter (statuses as of 07/30/2023) [facility]11-11-2023 History of Past illness Narrative* Problem Noted Date Diagnosed Date Resolved Date Hypoxia 07/14/2023 07/16/2023 Overview: -Patient with new oxygen requirement 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 -On physical exam, diminished lung sounds in the lower lobes -CT Chest - bibasilar atelectasis, no signs of infection -Now weaned to RA Plan: -Continue to monitor ---now resolved Diarrhea 05/31/2023 06/07/2023 Overview: > Reporting diarrhea starting 05/30 > no abd pain or fevers > C diff negative 06/03 >Improving with imodium as of 06/05/23 Plan: - Imodium PRN Central line infection, initial encounter 05/28/2023 06/07/2023 Overview: > port placed at OSH on 05/25/23; pain, redness tracking up neck noted on 05/26 -- presented to OSH ED on 05/27, given pain medication, Tylenol and d/c'd home > seen at [facility] on 05/28 by heme/onc and BMT who recommended admission for concerns for port infection > blood cxs x2 obtained -- NGTD > no fevers BLOOD TYPER, 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; 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 > ID consulted, appreciate assistance; now signed off > started vanc and Zosyn 05/28; Zosyn d/c'd 05/30 per ID recs > port removed 05/29 > port site now much improved w/remaining erythema and tenderness at venotomy site > Vanc (05/28-06/01) transitioned to PO doxy on 06/01 in setting of rising sCr. Completed course of abx 06/03/23. > Site improved w/abx w/mild residual erythema at venotomy site Plan: - monitor port site - Has completed full course of abx Breast cancer 09/11/2013 05/28/2023 documented as of this encounter (statuses as of 08/08/2023) [facility]11-11-2023 History of Past illness Narrative* Problem Noted Date Diagnosed Date Resolved Date Hypoxia 07/14/2023 07/16/2023 Overview: -Patient with new oxygen requirement 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 -On physical exam, diminished lung sounds in the lower lobes -CT Chest - bibasilar atelectasis, no signs of infection -Now weaned to RA Plan: -Continue to monitor ---now resolved Diarrhea 05/31/2023 06/07/2023 Overview: > Reporting diarrhea starting 05/30 > no abd pain or fevers > C diff negative 06/03 >Improving with imodium as of 06/05/23 Plan: - Imodium PRN Central line infection, initial encounter 05/28/2023 06/07/2023 Overview: > port placed at OSH on 05/25/23; pain, redness tracking up neck noted on 05/26 -- presented to OSH ED on 05/27, given pain medication, Tylenol and d/c'd home > seen at [facility] on 05/28 by heme/onc and BMT who recommended admission for concerns for port infection > blood cxs x2 obtained -- NGTD > no fevers BLOOD TYPER, 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; 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 > ID consulted, appreciate assistance; now signed off > started vanc and Zosyn 05/28; Zosyn d/c'd 05/30 per ID recs > port removed 05/29 > port site now much improved w/remaining erythema and tenderness at venotomy site > Vanc (05/28-06/01) transitioned to PO doxy on 06/01 in setting of rising sCr. Completed course of abx 06/03/23. > Site improved w/abx w/mild residual erythema at venotomy site Plan: - monitor port site - Has completed full course of abx Breast cancer 09/11/2013 05/28/2023 documented as of this encounter (statuses as of 08/08/2023) [facility]11-[facility] History of Past illness Narrative* Problem Noted Date Diagnosed Date Resolved Date Hypoxia 07/14/2023 07/16/2023 Overview: -Patient with new oxygen requirement 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 -On physical exam, diminished lung sounds in the lower lobes -CT Chest - bibasilar atelectasis, no signs of infection -Now weaned to RA Plan: -Continue to monitor ---now resolved Diarrhea 05/31/2023 06/07/2023 Overview: > Reporting diarrhea starting 05/30 > no abd pain or fevers > C diff negative 06/03 >Improving with imodium as of 06/05/23 Plan: - Imodium PRN Central line infection, initial encounter 05/28/2023 06/07/2023 Overview: > port placed at OSH on 05/25/23; pain, redness tracking up neck noted on 05/26 -- presented to OSH ED on 05/27, given pain medication, Tylenol and d/c'd home > seen at [facility] on 05/28 by heme/onc and BMT who recommended admission for concerns for port infection > blood cxs x2 obtained -- NGTD > no fevers BLOOD TYPER, 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; 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 > ID consulted, appreciate assistance; now signed off > started vanc and Zosyn 05/28; Zosyn d/c'd 05/30 per ID recs > port removed 05/29 > port site now much improved w/remaining erythema and tenderness at venotomy site > Vanc (05/28-06/01) transitioned to PO doxy on 06/01 in setting of rising sCr. Completed course of abx 06/03/23. > Site improved w/abx w/mild residual erythema at venotomy site Plan: - monitor port site - Has completed full course of abx Breast cancer 09/11/2013 05/28/2023 documented as of this encounter (statuses as of 08/08/2023) [facility]11-11-2023 History of Past illness Narrative* Problem Noted Date Diagnosed Date Resolved Date Hypoxia 07/14/2023 07/16/2023 Overview: -Patient with new oxygen requirement 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 -On physical exam, diminished lung sounds in the lower lobes -CT Chest - bibasilar atelectasis, no signs of infection -Now weaned to RA Plan: -Continue to monitor ---now resolved Diarrhea 05/31/2023 06/07/2023 Overview: > Reporting diarrhea starting 05/30 > no abd pain or fevers > C diff negative 06/03 >Improving with imodium as of 06/05/23 Plan: - Imodium PRN Central line infection, initial encounter 05/28/2023 06/07/2023 Overview: > port placed at OSH on 05/25/23; pain, redness tracking up neck noted on 05/26 -- presented to OSH ED on 05/27, given pain medication, Tylenol and d/c'd home > seen at [facility] on 05/28 by heme/onc and BMT who recommended admission for concerns for port infection > blood cxs x2 obtained -- NGTD > no fevers BLOOD TYPER, 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; 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 > ID consulted, appreciate assistance; now signed off > started vanc and Zosyn 05/28; Zosyn d/c'd 05/30 per ID recs > port removed 05/29 > port site now much improved w/remaining erythema and tenderness at venotomy site > Vanc (05/28-06/01) transitioned to PO doxy on 06/01 in setting of rising sCr. Completed course of abx 06/03/23. > Site improved w/abx w/mild residual erythema at venotomy site Plan: - monitor port site - Has completed full course of abx Breast cancer 09/11/2013 05/28/2023 documented as of this encounter (statuses as of 08/09/2023) [facility]11-[facility] History of Past illness Narrative* Problem Noted Date Diagnosed Date Resolved Date Hypoxia 07/14/2023 07/16/2023 Overview: -Patient with new oxygen requirement 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 -On physical exam, diminished lung sounds in the lower lobes -CT Chest - bibasilar atelectasis, no signs of infection -Now weaned to RA Plan: -Continue to monitor ---now resolved Diarrhea 05/31/2023 06/07/2023 Overview: > Reporting diarrhea starting 05/30 > no abd pain or fevers > C diff negative 06/03 >Improving with imodium as of 06/05/23 Plan: - Imodium PRN Central line infection, initial encounter 05/28/2023 06/07/2023 Overview: > port placed at OSH on 05/25/23; pain, redness tracking up neck noted on 05/26 -- presented to OSH ED on 05/27, given pain medication, Tylenol and d/c'd home > seen at [facility] on 05/28 by heme/onc and BMT who recommended admission for concerns for port infection > blood cxs x2 obtained -- NGTD > no fevers BLOOD TYPER, 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; 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 > ID consulted, appreciate assistance; now signed off > started vanc and Zosyn 05/28; Zosyn d/c'd 05/30 per ID recs > port removed 05/29 > port site now much improved w/remaining erythema and tenderness at venotomy site > Vanc (05/28-06/01) transitioned to PO doxy on 06/01 in setting of rising sCr. Completed course of abx 06/03/23. > Site improved w/abx w/mild residual erythema at venotomy site Plan: - monitor port site - Has completed full course of abx Breast cancer 09/11/2013 05/28/2023 documented as of this encounter (statuses as of 08/09/2023) [facility]11-11-[facility] History of Past illness Narrative* Problem Noted Date Diagnosed Date Resolved Date Hypoxia 07/14/2023 07/16/2023 Overview: -Patient with new oxygen requirement 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 -On physical exam, diminished lung sounds in the lower lobes -CT Chest - bibasilar atelectasis, no signs of infection -Now weaned to RA Plan: -Continue to monitor ---now resolved Diarrhea 05/31/2023 06/07/2023 Overview: > Reporting diarrhea starting 05/30 > no abd pain or fevers > C diff negative 06/03 >Improving with imodium as of 06/05/23 Plan: - Imodium PRN Central line infection, initial encounter 05/28/2023 06/07/2023 Overview: > port placed at OSH on 05/25/23; pain, redness tracking up neck noted on 05/26 -- presented to OSH ED on 05/27, given pain medication, Tylenol and d/c'd home > seen at [facility] on 05/28 by heme/onc and BMT who recommended admission for concerns for port infection > blood cxs x2 obtained -- NGTD > no fevers BLOOD TYPER, 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; 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 > ID consulted, appreciate assistance; now signed off > started vanc and Zosyn 05/28; Zosyn d/c'd 05/30 per ID recs > port removed 05/29 > port site now much improved w/remaining erythema and tenderness at venotomy site > Vanc (05/28-06/01) transitioned to PO doxy on 06/01 in setting of rising sCr. Completed course of abx 06/03/23. > Site improved w/abx w/mild residual erythema at venotomy site Plan: - monitor port site - Has completed full course of abx Breast cancer 09/11/2013 05/28/2023 documented as of this encounter (statuses as of 08/10/2023) [facility]11-11-[facility] History of Past illness Narrative* Problem Noted Date Diagnosed Date Resolved Date Hypoxia 07/14/2023 07/16/2023 Overview: -Patient with new oxygen requirement 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 -On physical exam, diminished lung sounds in the lower lobes -CT Chest - bibasilar atelectasis, no signs of infection -Now weaned to RA Plan: -Continue to monitor ---now resolved Diarrhea 05/31/2023 06/07/2023 Overview: > Reporting diarrhea starting 05/30 > no abd pain or fevers > C diff negative 06/03 >Improving with imodium as of 06/05/23 Plan: - Imodium PRN Central line infection, initial encounter 05/28/2023 06/07/2023 Overview: > port placed at OSH on 05/25/23; pain, redness tracking up neck noted on 05/26 -- presented to OSH ED on 05/27, given pain medication, Tylenol and d/c'd home > seen at [facility] on 05/28 by heme/onc and BMT who recommended admission for concerns for port infection > blood cxs x2 obtained -- NGTD > no fevers BLOOD TYPER, 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; 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 > ID consulted, appreciate assistance; now signed off > started vanc and Zosyn 05/28; Zosyn d/c'd 05/30 per ID recs > port removed 05/29 > port site now much improved w/remaining erythema and tenderness at venotomy site > Vanc (05/28-06/01) transitioned to PO doxy on 06/01 in setting of rising sCr. Completed course of abx 06/03/23. > Site improved w/abx w/mild residual erythema at venotomy site Plan: - monitor port site - Has completed full course of abx Breast cancer 09/11/2013 05/28/2023 documented as of this encounter (statuses as of 08/10/2023) [facility]11-11-[facility] History of Past illness Narrative* Problem Noted Date Diagnosed Date Resolved Date Hypoxia 07/14/2023 07/16/2023 Overview: -Patient with new oxygen requirement 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 -On physical exam, diminished lung sounds in the lower lobes -CT Chest - bibasilar atelectasis, no signs of infection -Now weaned to RA Plan: -Continue to monitor ---now resolved Diarrhea 05/31/2023 06/07/2023 Overview: > Reporting diarrhea starting 05/30 > no abd pain or fevers > C diff negative 06/03 >Improving with imodium as of 06/05/23 Plan: - Imodium PRN Central line infection, initial encounter 05/28/2023 06/07/2023 Overview: > port placed at OSH on 05/25/23; pain, redness tracking up neck noted on 05/26 -- presented to OSH ED on 05/27, given pain medication, Tylenol and d/c'd home > seen at [facility] on 05/28 by heme/onc and BMT who recommended admission for concerns for port infection > blood cxs x2 obtained -- NGTD > no fevers BLOOD TYPER, 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; 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 > ID consulted, appreciate assistance; now signed off > started vanc and Zosyn 05/28; Zosyn d/c'd 05/30 per ID recs > port removed 05/29 > port site now much improved w/remaining erythema and tenderness at venotomy site > Vanc (05/28-06/01) transitioned to PO doxy on 06/01 in setting of rising sCr. Completed course of abx 06/03/23. > Site improved w/abx w/mild residual erythema at venotomy site Plan: - monitor port site - Has completed full course of abx Breast cancer 09/11/2013 05/28/2023 documented as of this encounter (statuses as of 08/13/2023) [facility] History of Past illness Narrative* Problem Noted Date Diagnosed Date Resolved Date Hypoxia 07/14/2023 07/16/2023 Overview: -Patient with new oxygen requirement 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 -On physical exam, diminished lung sounds in the lower lobes -CT Chest - bibasilar atelectasis, no signs of infection -Now weaned to RA Plan: -Continue to monitor ---now resolved Diarrhea 05/31/2023 06/07/2023 Overview: > Reporting diarrhea starting 05/30 > no abd pain or fevers > C diff negative 06/03 >Improving with imodium as of 06/05/23 Plan: - Imodium PRN Central line infection, initial encounter 05/28/2023 06/07/2023 Overview: > port placed at OSH on 05/25/23; pain, redness tracking up neck noted on 05/26 -- presented to OSH ED on 05/27, given pain medication, Tylenol and d/c'd home > seen at [facility] on 05/28 by heme/onc and BMT who recommended admission for concerns for port infection > blood cxs x2 obtained -- NGTD > no fevers BLOOD TYPER, 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; 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 > ID consulted, appreciate assistance; now signed off > started vanc and Zosyn 05/28; Zosyn d/c'd 05/30 per ID recs > port removed 05/29 > port site now much improved w/remaining erythema and tenderness at venotomy site > Vanc (05/28-06/01) transitioned to PO doxy on 06/01 in setting of rising sCr. Completed course of abx 06/03/23. > Site improved w/abx w/mild residual erythema at venotomy site Plan: - monitor port site - Has completed full course of abx Breast cancer 09/11/2013 05/28/2023 documented as of this encounter (statuses as of 08/14/2023) [facility] History of Past illness Narrative* Problem Noted Date Diagnosed Date Resolved Date Hypoxia 07/14/2023 07/16/2023 Overview: -Patient with new oxygen requirement 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 -On physical exam, diminished lung sounds in the lower lobes -CT Chest - bibasilar atelectasis, no signs of infection -Now weaned to RA Plan: -Continue to monitor ---now resolved Diarrhea 05/31/2023 06/07/2023 Overview: > Reporting diarrhea starting 05/30 > no abd pain or fevers > C diff negative 06/03 >Improving with imodium as of 06/05/23 Plan: - Imodium PRN Central line infection, initial encounter 05/28/2023 06/07/2023 Overview: > port placed at OSH on 05/25/23; pain, redness tracking up neck noted on 05/26 -- presented to OSH ED on 05/27, given pain medication, Tylenol and d/c'd home > seen at [facility] on 05/28 by heme/onc and BMT who recommended admission for concerns for port infection > blood cxs x2 obtained -- NGTD > no fevers BLOOD TYPER, 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; 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 > ID consulted, appreciate assistance; now signed off > started vanc and Zosyn 05/28; Zosyn d/c'd 05/30 per ID recs > port removed 05/29 > port site now much improved w/remaining erythema and tenderness at venotomy site > Vanc (05/28-06/01) transitioned to PO doxy on 06/01 in setting of rising sCr. Completed course of abx 06/03/23. > Site improved w/abx w/mild residual erythema at venotomy site Plan: - monitor port site - Has completed full course of abx Breast cancer 09/11/2013 05/28/2023 documented as of this encounter (statuses as of 08/16/2023) [facility] Miscellaneous Notes* Telephone Encounter - Aurelia Hines RN - 07/06/2023 12:17 PM EDT HLA match notification: Ms. Wilkes was notified that a suitably matched donor has been identified. Donor is sibling name, Pierre Ferrari who is an 08/14 DNA HLA match. Patient verbalized understandingof above. Brianna Pham MD has been notified via electronic chart documentation. Ms. Wilkes is aware that if a match meeting has been requested with the BMT physician they will receive a call with the appointment information. Order Date: 06/26/2023 Physician of Record: Efrem Sheth Reported Date: 06/27/2023 8:55:33 AM Test Name: Bone Marrow with Donor Patient Name: PRINCESS WILKES Donor Name: PIERRE FERRARI Donor ID: [id number] Relationship: Sibling Report Status: Final Patient HLA Specimen Date: 05/29/2023 DNA ID: [id number] Patient HLA Typing: HLA-A* 02:01 , 68:02 HLA-B* 14:02 , 15:01 HLA-C* 03:04 , 08:02 HLA-DRB1* 01:01 , 13:03 HLA-DRB3* 01:01 , - HLA-DRB4* - , - HLA-DRB5* - , - HLA-DQA1* 01:01 , 05:05 HLA-DQB1* 03:01 , 05:01 HLA-DPA1* 01:03 , - HLA-DPB1* 02:/416:01 , 04:02/105:01 COMMENTS: none Donor HLA Specimen Date: 06/19/2023 DNA ID: [id number] Donor HLA Typing: HLA-A* 02:01 , 68:02 HLA-B* 14:02 , 15:01 HLA-C* 03:04 , 08:02 HLA-DRB1* 01:01 , 13:03 HLA-DRB3* 01:01 , - HLA-DRB4* - , - HLA-DRB5* - , - HLA-DQA1* 01:01 , 05:05 HLA-DQB1* 03:01 , 05:01 HLA-DPA1* 01:03 , - HLA-DPB1* 02:/416:01 , 04:02/105:01 COMMENTS: none NOT RULED OUT: A*02:614; A*68:278 Match Grade: A - A , A B - A , A Cw - A , A DRB1 - A , A DRB3 - A , DRB4 - , DRB5 - , DQA1 - A , A DQB1 - A , A DPA1 - A , DPB1 - P , P ANTIBODY SUMMARY: Serum date: 05/29/2023 Combined Class I & II cPRA: 31 Combined Strong Class I & II cPRA: 0 Class I cPRA: 31 Class I specificities: A23, A24, A32, B49 Strong Class I cPRA: 0 Strong Class I specificities: none Comments: none Class II cPRA: 0 Class II specificities: none Strong Class II cPRA: 0 Strong Class II specificities: none Comments: none ANTIBODY CONCLUSION: No Donor Specific Antibody (DSA) present. Patient Samples: Sample Date SpecimenTypeCd Status Code Comments 06/01/2023 WB Active 05/29/2023 WE Active 05/29/2023 WB Active Donor Samples: Sample Date SpecimenTypeCd Status Code Comments 06/19/2023 WE Active Comments: Testing is complete on the patient and the donor. Conclusion: The patient and the donor appear to be HLA identical at all tested loci. Validated By: Ugo Huang Date: 06/27/2023 Aurelia Hines RN documented in this encounterSumma Health Barberton Campus10-30-2023 NoteMain [facility] Center10-30-2023 History of Present illness Narrative* Mike Hughes MD - 07/02/2023 8:49 AM EDT Images from the original note were not included. This is a virtual visit using The [employer] Video Visit. It required patient- provider interaction for the medical decision making as documented below. I have communicated my name and active licensure. The patient's identity and physical location wereverified at the time of this visit. Either the patient or their legal auto claim representative has been informed of the risks and benefits of -- and alternatives to -- treatment through a remote evaluation andconsents to proceed with the evaluation remotely. 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 She is scheduled to start C2 of Aza Milton today. She feelswell. She denies any pain today. No bleeding bruising, fatigue, no fever. Her last platelet transfusion on 06/16/23. She has not required blood since discharge from [facility] (06/07/23) She is set up for twice weekly labs with Dr. Macdonald. History Of Present Illness: Ms. 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 Oncotype Dx 13 - so no chemo was offered. She then completed 5 years of endocrine therapy from 01/2014 - 01/2019 - letrozole followed by tamoxifen (x1 year). She presented to the ER on 05/03/23 at [facility] with generalized weakness, dizziness, exertional dyspnea for a few weeks. Prior to this she was feeling well, did take a couple extra naps duringthe summer. Work up including CXR, trop, COVID/flu swab, Hep panel, HIV was negative. She remained afebrile. CBC showed WBC 2.1 with no blasts, 89% lymphocytes, Hb 8.9, plt 20. CT TAP was done, CT chest was negative for any metastatic disease to thorax and showed L breast postoperative changes. R breast inferior medial soft tissue nodule was seen 1.2 cm - indeterminate. CT AP was normal. She was discharged with a plan to get OP BMBx. She was discharged on cipro 500 mg BID. She then saw Dr. Sherry Macdonald outpatient and a BM Bx was done on 05/08/23. BMBx - 05/08/23 - hemodilute specimen, clot sections with foci of hematopoietic marrow effaced by an immature/blastic population (morphologic eval) and flow cytometry significant for 29.8% CD34 positive myeloblasts, consistent with AML. CBC WBC 1.42, ANC 0.14, Hb 8.3, plt 20 Cytogenetics 43~45,XX,add(1)(q21),del(3)(q21q25),add(4)(q21),-5,add(7)(q11.2),del(7)(q32),-9, add(9)(q13),nehemiah(11)t(1;11)(q21;q23),-12,-16,+mar[cp17] NGS showed RUNX1 (F40Wfs*14; 20.9%); TP53 (C238Y; 63.9%); DNMT3A (R635W; 34.4%) After she had the bone marrow bx on 05/08/23 - she had another ER visit for syncope. CBC showed WBC 1.2, Hb 7.3, plt 20. She was transfused one unit PRBC and discharged home. 05/03/23 2.1 0.1 8.9 20 05/11/23 1.6 0.12 8.4 26 05/25/23 1.4 8.5 59 She presented on 05/28/23 to establish care with us. There was concern for line related infection soshe was admitted, her port was removed and treatment was initiated inpatient. 06/01/32 - C1D1 of Aza + Milton (7 days) Since discharge on 06/07/23 she has been doing well and being followed by Dr. Macdonald. Labs: 06/12/23 CBC - 0.9 0.09 9.3 10 [facility] [phone] Past MHx: PAST MEDICAL HISTORY Diagnosis Date AML (acute myeloid leukemia) (HCC) 05/28/2023 Ankle fracture Depression Malignant neoplasm of breast (female), unspecified site 09/2013 left breast Prolapsed uterus ALLERGIES Allergen Reactions Vicodin [Hydrocodon* Mental Status Change Current Medications: levoFLOXacin (LEVAQUIN) 500 mg tablet Take 1 tablet by mouth once daily. acyclovir (ZOVIRAX) 400 mg tablet Take 1 tablet by mouth two times a day. OLANZapine (ZYPREXA) 2.5 mg tablet Take 1 tablet by mouth daily at bedtime. sodium chloride 0.9 %, flush, (BD POSIFLUSH) syringe Inject 10 mL intravenously once daily. Flush each lumen with 10mL NS once daily. posaconazole DR (NOXAFIL) 100 mg tablet Take 3 tablets by mouth once daily. omeprazole (PRILOSEC) 20 mg capsule Take 20 mg by mouth once daily. ondansetron orally disintegrating (ZOFRAN ODT) 4 mg disintegrating tablet Take 4 mg by mouth every 8 hours as needed for nausea/vomiting. buPROPion (WELLBUTRIN) 75 mg tablet Take 75 mg by mouth once daily. ROS: 12 point ROS negative other than HPI. Physical Exam: Performance Status: 0- Fully active, able to carry on all pre-disease performance w/o restriction. General appearance: alert, in no acute distress Skin: No rashes, no lumps Head: normocephalic, atraumatic Eyes: Anicteric sclera. Labs Imaging/ Pathology Reports: CBC Latest Ref Rng & Units 06/07/2023 WBC 3.70 - 11.00 k/uL 1.17(L) RBC 3.90 - 5.20 m/uL 2.27(L) HEMOGLOBIN 11.5 - 15.5 g/dL 7.3(L) HEMATOCRIT 36.0 - 46.0 % 21.4(L) MCV 80.0 - 100.0 fL 94.3 MCH 26.0 - 34.0 pg 32.2 MCHC 30.5 - 36.0 g/dL 34.1 RDW-CV 11.5 - 15.0 % 18.3(H) PLATELETS 150 - 400 k/uL 9(LL) MPV 9.0 - 12.7 fL - BASO% % 0.0 ABS NEUT (ANC) 1.45 - 7.50 k/uL 0.14(L) ABS LYMPH 1.00 - 4.00 k/uL 0.96(L) ABS MONO <0.87 k/uL 0.00 ABS EOSIN <0.46 k/uL 0.07 ABS BASO <0.11 k/uL 0.00 NRBC /100 WBC 0.0 META% % - MYELO% % - ANISOCYTOSIS - Present LEFT SHIFT - - OVALOCYTES - Few POLYCHROMASIA - Slight RBC FRAGMENTS None Seen Few(A) TARGET CELLS - - PLATELET ESTIMATE - Decreased CMP Latest Ref Rng & Units 06/07/2023 SODIUM 136 - 144 mmol/L 141 POTASSIUM 3.7 - 5.1 mmol/L 3.8 CHLORIDE 97 - 105 mmol/L 110(H) CO2 22 - 30 mmol/L 21(L) GLUCOSE 74 - 99 mg/dL 107(H) BUN 7 - 21 mg/dL 14 CREATININE 0.58 - 0.96 mg/dL 1.09(H) EGFR >=60 mL/min/1.73m 55(L) EGFR-ALL OTHER RACES . - EGFR- - - PROTEIN, TOTAL 6.3 - 8.0 g/dL 5.4(L) ALBUMIN 3.9 - 4.9 g/dL 3.2(L) CALCIUM, TOTAL 8.5 - 10.2 mg/dL 8.7 BILIRUBIN, TOTAL 0.2 - 1.3 mg/dL 0.3 AST 13 - 35 U/L 15 ALT 7 - 38 U/L 18 ALKALINE PHOSPHATASE 34 - 123 U/L 63 INR Date Value Ref Range Status 05/31/2023 1.1 0.9 - 1.3 Final Comment: Vitamin K Antagonist (VKA) Therapeutic Range: INR 2 to 3 (Target INR of 2.5) Note: For patients treated with VKA drugs, such as warfarin, the [employer] 2012 Guideline recommends a therapeutic INR range of 2 to 3 (target INR of 2.5). This recommendation includes high-risk patients with antiphospholipid syndrome with previous arterial or venous thromboembolism, current-generation mechanical or bioprosthetic aortic heart valve replacement. Note: Patients with mechanical aortic valve replacement and additional risk factors for thromboembolic events (atrial fibrillation, previous thromboembolism, LV dysfunction, hypercoagulable conditions) or an older generation mechanical AVR (i.e., ball in-Cage) or any mechanical MVR should have a INR therapeutic range of 2.5 to 3.5 (target INR of 3). Beltran GH, et al. Chest 2012, 141:7S-47S Margo RA, et al. [facility] 2017, 70: 252-289 BONE MARROW ANALYSIS: [id number] Order: [id number] Collected 06/25/2023 8:55 AM Status: Final result Visible to patient: No (scheduled for 07/02/2023 4:43 PM) Dx: 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 ach... 0 Result Notes Component FINAL DIAGNOSIS A-C. Bone marrow, aspirate smear, touch imprint and core biopsy, with clot section: - Persistent acute myeloid leukemia with 7% blasts and increased reticulin fibrosis (MF-1). - Cellular marrow (~30-40%) showing trilineage hematopoiesis with dysmegakaryopoiesis. - See comment. June 26, 2023 Diagnosis Comment The patient is a 68-year-old female with history of acute myeloid leukemia with mutated TP53, therapy-related (ICC 2021), status post therapy. Evaluation is limited due to the very suboptimal aspicular and hemodilute aspirate smears. Morphologic review demonstrates a relatively normocellular to mildly hypercellular marrow (~30-40%) showing trilineage hematopoiesis with dysmegakaryopoiesis and left shifted granulopoiesis including increased blasts, estimated to be 7% on manual differential counts and approximately 5-10% on the CD34 immunohistochemical stain. Reticulin stain highlights increased reticulin fibrosis (MF-1, scale 0-3). Overall, the findings are consistent with persistent acute myeloid leukemia. Correlation with the clinical findings and the results of the pending cytogenetic, molecular NGS and the send out flow cytometry based acute myeloid leukemia minimal residual disease (AML MRD) studies is recommended. Parts of this case were also reviewed by Dr.James Hernandez from the hematopathology section at the [facility], and he concurs with the above rendered final diagnosis and interpretation. Laboratory Developed Test (LDT) Disclaimer: Performance characteristics of immunohistochemical, immunofluorescent and chromogenic in-situ hybridization tests have been determined by the performing laboratory within [facility] [place] [facility] [place] ([facility], [facility], [facility], [facility], [facility], [facility], or [facility]) in a manner consistent with CLIA requirements. One or more of these tests have not been cleared or approved by the FDA. [facility] is regulated under CLIA as qualified to perform high-complexity testing. These tests are used for clinical purposes. They should not be regarded as invest igational or for research. Positive and negative controls stain appropriately. Microscopic Description PERIPHERAL BLOOD: N0 CBC data or peripheral blood smear available for review. BONE MARROW ASPIRATE: Differential counts performed on the aspicular, hemodilute touch imprint may not be entirely auto claim representative of the true marrow cellularity. Result Normal Range 7 % Blasts 0-2 1 % Promyelocytes 1-5 30 % Myelos/Metas/Bands/Segs 32-72 0 % Eosinophils 1-6 1 % Basophils 0-1 1 % Monocytes 0-4 15 % Erythroid precursors 13-37 43 % Lymphocytes 7-23 2 % Plasma cells 0-2 Myeloid/Erythro (1.5-4): 2.6. Cells counted: 300. Iron stain result: Aspicular, hypocellular iron stain smear is inadequate for evaluation of stainable iron and ring sideroblasts. Specimen Quality: Markedly hemodilute, aspicular and hypocellular aspirate smears and touch imprint. Differential count performed on the touch imprint Megakaryocytes: Not seen. Erythropoiesis: Too few erythroid precursors seen to assess morphology and maturation. Granulopoiesis: Left shifted with increased blasts, abnormally granulated and hypogranular myeloid precursors seen. Other: Scattered plasma cells. BONE MARROW BIOPSY: Adequacy: Suboptimal (fragmented, crush and aspiration artifact. Cellularity: Normal , approximately 30-40%. ME ratio: Normal. Hematopoiesis: Trilineage hematopoiesis. Megakaryocytes: Decreased. Megakaryocyte morphology: Very few megakaryocytes are seen showing unremarkable morphology. Lymphoid infiltrate: Very small interstitial lymphoid aggregate is seen predominantly mostly small lymphocytes Bone trabeculae: Bone remodeling changes present in few areas. Other: Scattered macrophages, including pigment laden macrophages and plasma cells present. Immunohistochemical and special stains were performed on sections from the core biopsy (block B1) for further evaluation of the bone marrow. CD34 highlights increased scattered positive blasts, approximately 5-10%. CD61 highlights many positive megakaryocytic cells, including many very small hypolobated forms and micromegkaryoctes, with possible coexpression on some of the CD34 positive cells. Reticulin stain highlights increased reticulin fibrosis, MF-1 (scale 0-3). CLOT SECTION: Marrow particles: Rare small cellular particle is seen. Morphology: Not evaluable. ANCILLARY TESTS: Flow cytometry: In-house flow cytometry not performed. Send out AML MRD studies pending Cytogenetics: Pending. FISH: Not performed. Molecular: Buffy coat stored. Gross Description A. BONE MARROW ASPIRATE RIGHT POSTERIOR ILIAC CREST Received are air-dried bone marrow aspirate smears. Submitted for light microscopy. B. BONE MARROW BIOPSY RIGHT POSTERIOR ILIAC CREST Received in formalin are two segments of cylindrical tissue aggregating to 2.5 x 0.3 x 0.3 cm, payne to red-brown and of a firm consistency. Totally submitted in formalin in one cassette after decalcification. Bone marrow touch imprints also received. Submitted for light microscopy. C. BONE MARROW CLOT RIGHT POSTERIOR ILIAC CREST Received in formalin is a segment of red-brown hemorrhagic material measuring 2.0 x 1.4 x 0.6 cm. Totally submitted in one cassette. Performing Lab Diagnostic interpretation performed at [facility], [address] [place] [id number] [place] [address]# [id number] Disease Education Specialist: Boris Wood M.D. Assessment and Plan: Ms. Princess Wilkes is a 67 year old female with prior Stage 1 ([id number]) L breast invasive and DCIS,1.5 cm, grade 2, ER/VA positive and HER2 negative s/p L lumpectomy Sep 2013 followed by adjuvant RTto L breast completed 01/06/14. Oncotype Dx 13 - so no chemo was offered. She then completed 5 years of endocrine therapy from 01/2014 - 01/2019 - letrozole followed by tamoxifen. # t-AML with TP53 Complex cytogenetics, NGS showed RUNX1 (F40Wfs*14; 20.9%); TP53 (C238Y; 63.9%); DNMT3A (R635W; 34.4%) ELN 2021 - Adverse Risk Reviewed repeat BMBx from 06/05/23, cytogenetics and NGS results with the patient 20% blasts on aspirate. Same TP53 was again noted on our NGS panel Patient was admitted to our hospital for concern for line related infection and discharged on 06/07/23. 06/01/23 C1D1 Aza (7 days) + Milton 100 mg (7 days) with concomitant Posaconazole She has been doing well since discharge and has not required any blood since discharge, she did geta unit of platelets on 06/13/23 and another unit of platelets on 06/26/23 06/25/23 - C1D25 - bone marrow bx showed reduction in blasts from 20-28% to 7% - >50% reduction however still persistent disease, we discussed the bone marrow in details today and the patient willstart C2 today with Dr. Macdonald, CBC from today pending. Plan: We discussed continuing Azacitidine and Venetoclax locally with Dr. Macdonald - next planned for 07/02/23 (today), dose and recommendations for Venetoclax were discussed in details Recommendations as noted prior include: - Bone Marrow (BMBx) Assessment done, 06/25/23 BMBx showed residual disease, commence the next cycle without treatment dose interruption - on 07/02/23 (today) - Further marrows depending on count recovery - Dose of venetoclax should be based on concurrent antimicrobials, our recommendations include posaconazole 300 mg qday, levofloxacin 500 mg qday and acyclovir 400 mg BID along with 100 mg of Venetoclax (no ramp up) - Continue twice weekly labs with transfusion support to maintain PRBC>8 and Plt>10. Patient was seen by our BMT team as well - recommend BMT based on MRD negative status RTC in 4 weeks via virtual visit prior to C3 We will also have her see our genetic counselor given TP53 >50% - pending # Infectious: - Patient is immunocompromised - We discussed that if Ms. Sánchez develops single oral temperature of ?38.3 C (101 F) or a temperature of ?38.0 C (100.4 F) sustained over a one-hour period, she should seek medical attention urgently. 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 Oncotype Dx 13 - so nochemo was offered. She then completed 5 years of endocrine therapy from 01/2014 - 01/2019 - letrozolefollowed by tamoxifen (x1 year). F/u with local onc I answered Ms. Wilkes questions. she verbalized understanding the plan, including alternatives. Ms. Wilkes agreed with these recommendations and plan. I spent a total of 30 minutes on the date of the service which included preparing to see the patient, [id number] patient care, completing clinical documentation, obtaining and/or reviewing separately obtained history, and performing a medically appropriate examination. Mike Hughes MD Hematology and Medical Oncology, Leukemia Division 06/25/23 cc: Mike Hughes [id number] [facility] [id number] Melissa Pierce MD [address] [place] [id number] documented in this encounterSumma Health Barberton Campus10-23-2023 NoteMain Campus Medical Center10-23-2023 Nurse Note* Neo Ruiz LPN - 06/25/2023 11:28 AM EDT Additional intake questions: Has the patient had fever, nausea, vomiting, diarrhea, constipation, fatigue for > 1 week? Yes, vomiting Does the patient have a decreased appetite? No Does patient want to see a Diesel Bus Mechanic? No (yes to any of above refer patient to schedulers for dietitian appointment) ) Does patient have any new or increased numbness or tingling of extremities? No Is patient interested in fertility information? NA Does patient need any prescription refills? No Does patient have an advanced directive in place? Yes, no copy found in [facility] Patient referred to Social Work and Patient referred to [facility] documented in this encounterSumma Health [facility]10-23-2023 NoteMain Campus [facility] Center10-23-2023 Surgical operation note* Brief Op Note - Robinson Benito MD - 06/25/2023 9:06 AM EDT BRIEF OPERATIVE / PROCEDURE NOTE LOG ID: [id number] SURGERY/PROCEDURE DATE: 06/25/2023 INCISION/PROCEDURE START TIME: 8:40 AM INCISION CLOSE/PROCEDURE END TIME: 8:59 AM SURGEON(S)/PROCEDURALIST(S) AND EXPANDING MACHINE OPERATOR(S): Surgeon(s) and Role: * Lj Liz MD - Primary * Robinson Benito MD No Additional Staff SURGERY/PROCEDURE(S): Bone marrow biopsy and aspiration ANESTHESIA: Procedural Sedation FINDINGS: none ESTIMATED BLOOD LOSS: 0 ml SPECIMENS: 20 cc bone marrow aspirate and one 1.8 cm core sample COMPLICATIONS: None PRE-OP/PRE-PROCEDURE DIAGNOSIS: AML POST-OP/POST-PROCEDURE DIAGNOSIS: Same as Preop SIGNATURE: Robinson Benito MD PATIENT NAME: Princess Wilkes DATE: June 25, 2023 TIME: 9:06 AM documented in this encounterSumma Health Barberton Campus10-23-2023 History of Present illness Narrative* Marry Modi, RT(R) - 06/25/2023 8:33 AM EDT Radiology Service Progress Note PATIENT NAME: Princess Wilkes DATE OF SERVICE: June 25, 2023 TIME: 8:33 AM PATIENT IDENTITY VERIFICATION COMPLETED USING TWO (2) IDENTIFIERS: Name and Date of confirmedby patient verbally and Name and Date of confirmed by identification band. FALL SCREENING: Has the patient had 2 falls in the last year or 1 fall with injury or currently using an Ambulatory Assistive Device (Walker, Cane, Wheelchair, Crutches, etc.)? Yes, Patient High Riskfor Falls What interventions were put in place to prevent falls during this visit? Yellow Falls Risk Wristband Applied PATIENT GENDER DATA: Female. status: : No status: NO. PATIENT RELEVANT IMPLANT DATA REVIEWED: Yes RADIOLOGY DEPARTMENT: Biopsy PERIPHERAL IV DATA: Not applicable SIGNED BY: KRISHNA Oneil RT(R) June 25, 2023 8:33 AM documented in this encounterSumma Health Barberton Campus10-23-2023 Miscellaneous Notes* Patient Education - Carmen Agudelo RN - 06/25/2023 8:13 AM EDT AMBULATORY PATIENT EDUCATION TOPIC: Survival Skills: Procedure, bone marrow biopsy READINESS TO LEARN COGNITIVE ABILITY: Alert and oriented MOTIVATION TO LEARN: Interested FAMILY SUPPORT: High - Very involved in pt care INSTRUCTION PROVIDED TO: Patient PATIENT LEARNS BEST BY: Individual Instruction FACTORS AFFECTING LEARNING: Unable to assess PHYSICAL LIMITATIONS AFFECTING LEARNING: Fatigue LEARNING RESPONSE DIAGNOSIS: AML, not having achieved remissioin METHOD OF INSTRUCTION: Individual instruction PATIENT / FAMILY RESPONSE: Information received as demonstrated by interest and questions FOLLOW-UP PLAN: Patient instructed to call with any further issues SUPPLEMENTAL MATERIAL: None REFERRAL (RECOMMENDATION): None Electronically Signed By: Carmen Aguiar RN In Department: HOSP MAIN [id number] documented in this encounterSumma Health [facility] Campus10-23-2023 History and physical note * Robinson Benito MD - 06/25/2023 8:01 AM EDT UPDATED PROCEDURAL SEDATION HISTORY AND PHYSICAL EXAMINATION SERVICE DATE: 06/25/2023 SERVICE TIME: 8:02 AM PHYSICAL EXAM MUST BE COMPLETED ON ADMISSION PROCEDURE SCHEDULED: Procedure(s) with comments: DIAGNOSTIC BONE MARROW BIOPSY(IES) (N/A) - CT BONE MARROW BIOPSY / DR. HUGHES / LABS- PLT- 9 INR - WNL / RADIOLOGY ORDER PLACED: Radiology (1440h ago, onward) Start Ordered 06/14/23 0000 IMAGING GUIDED BIOPSY BONE MARROW (HEMATOLOGY) Routine 06/14/23 1527 The History and Physical (completed in the past 30 days) has been reviewed and the patient has beenexamined. The contents accurately reflect the patient's condition with the following additions or revisions since the H&P was completed. ASA Class: ASA Class:: Patient with mild systemic disease Examination indicates no changes. AIRWAY: Airway Visualization of Uvula: Yes Mouth opening greater than 2 fingerbreadths: Yes Neck Full Range of Motion: Yes LUNGS: Lungs clear to auscultation CARDIAC: Regular rhythm,Regular rate Provisional Diagnosis/Treatment Plan: AML SEDATION GOAL: Moderate This H&P can be found in the Electronic Medical Record dated 06/21/2023. SIGNATURE: Robinson Benito MD PATIENT NAME: Princess Wilkes DATE: June 25, 2023 TIME: 8:01 AM PAGER: documented in this encounterSumma Health Barberton Campus10-23-2023 History of Present illness Narrative* Mike Hughes MD - 06/25/2023 12:00 AM EDT Images from the original note were not included. [facility] Department of Hematology and Medical Oncology Leukemia Program Princess Wilkes ID: [id number] 06/26/2023 PRIMARY CARE PHYSICIAN: Melissa Pierce MD Chief Complaint: f/u AML Diagnosis: AML, therapy related (prior XRT for breast CA) Complex cytogenetics RUNX1 (F40Wfs*14; 20.9%); TP53 (C238Y; 63.9%); DNMT3A (R635W; 34.4%) 9/29/23 - C1D1 Aza (7days) + Milton 100 mg (7 days) with concomitant Posa Complications: - Aza/Milton was initiated inpatient at [facility] main (admitted due to concern for port infection) - Diverticulitis - hospitalized 06/18/23 - treated with abx - discharged on 06/20/23 Interval history: Today Princess is C1D25 of Aza + Milton (7 days). She got a CT guided bone marrow bx today. She feels well. She celebrated her birthday with her son this past week and did well except that one night she was eating popcorn and she had pain in her L lower abdomen and needed to go to the ER. She was found to have diverticulitis which was treated with abx. She denies any pain today. No bleeding bruising, fatigue, no fever. Her last platelet transfusion on 06/13/23. She has not required blood since discharge from [facility] (06/07/23) She is set up for twice weekly labs with Dr. Macdonald. History Of Present Illness: Ms. Princess Wilkes is a 67 year old female with prior Stage 1 ([id number]) L breast invasive and DCIS,1.5 cm, grade 2, ER/VA positive and HER2 negative s/p L lumpectomy Sep 2013 followed by adjuvant RTto L breast completed 01/06/14. Oncotype Dx 13 - so no chemo was offered. She then completed 5 years of endocrine therapy from 01/2014 - 01/2019 - letrozole followed by tamoxifen (x1 year). She presented to the ER on 05/03/23 at [facility] with generalized weakness, dizziness, exertional dyspnea for a few weeks. Prior to this she was feeling well, did take a couple extra naps duringthe summer. Work up including CXR, trop, COVID/flu swab, Hep panel, HIV was negative. She remained afebrile. CBC showed WBC 2.1 with no blasts, 89% lymphocytes, Hb 8.9, plt 20. CT TAP was done, CT chest was negative for any metastatic disease to thorax and showed L breast postoperative changes. R breast inferior medial soft tissue nodule was seen 1.2 cm - indeterminate. CT AP was normal. She was discharged with a plan to get OP BMBx. She was discharged on cipro 500 mg BID. She then saw Dr. Sherry Macdonald outpatient and a BM Bx was done on 05/08/23. BMBx - 05/08/23 - hemodilute specimen, clot sections with foci of hematopoietic marrow effaced by an immature/blastic population (morphologic eval) and flow cytometry significant for 29.8% CD34 positive myeloblasts, consistent with AML. CBC WBC 1.42, ANC 0.14, Hb 8.3, plt 20 Cytogenetics 43~45,XX,add(1)(q21),del(3)(q21q25),add(4)(q21),-5,add(7)(q11.2),del(7)(q32),-9, add(9)(q13),nehemiah(11)t(1;11)(q21;q23),-12,-16,+mar[cp17] NGS showed RUNX1 (F40Wfs*14; 20.9%); TP53 (C238Y; 63.9%); DNMT3A (R635W; 34.4%) After she had the bone marrow bx on 05/08/23 - she had another ER visit for syncope. CBC showed WBC 1.2, Hb 7.3, plt 20. She was transfused one unit PRBC and discharged home. 05/03/23 2.1 0.1 8.9 20 05/11/23 1.6 0.12 8.4 26 05/25/23 1.4 8.5 59 She presented on 05/28/23 to establish care with us. There was concern for line related infection soshe was admitted, her port was removed and treatment was initiated inpatient. 06/01/32 - C1D1 of Aza + Milton (7 days) Since discharge on 06/07/23 she has been doing well and being followed by Dr. Macdonald. Labs: 06/12/23 CBC - 0.9 0.09 9.3 10 Darlyn [phone] [id number] Past MHx: PAST MEDICAL HISTORY Diagnosis Date AML (acute myeloid leukemia) (HCC) 05/28/2023 Ankle fracture Depression Malignant neoplasm of breast (female), unspecified site 09/2013 left breast Prolapsed uterus ALLERGIES Allergen Reactions Vicodin [Hydrocodon* Mental Status Change Current Medications: OLANZapine (ZYPREXA) 2.5 mg tablet Take 1 tablet by mouth daily at bedtime. sodium chloride 0.9 %, flush, (BD POSIFLUSH) syringe Inject 10 mL intravenously once daily. Flush each lumen with 10mL NS once daily. posaconazole DR (NOXAFIL) 100 mg tablet Take 3 tablets by mouth once daily. omeprazole (PRILOSEC) 20 mg capsule Take 20 mg by mouth once daily. ondansetron orally disintegrating (ZOFRAN ODT) 4 mg disintegrating tablet Take 4 mg by mouth every 8 hours as needed for nausea/vomiting. buPROPion (WELLBUTRIN) 75 mg tablet Take 75 mg by mouth once daily. levoFLOXacin (LEVAQUIN) 500 mg tablet Take 1 tablet by mouth once daily. acyclovir (ZOVIRAX) 400 mg tablet Take 1 tablet by mouth two times a day. ROS: 12 point ROS negative other than HPI. Physical Exam: BP 134/54 Pulse 77 Temp 36.5 C (97.7 F) (Oral) Resp 18 Wt 116.1 kg (255 lb 15.3 oz) BMI 43.70 kg/m Performance Status: 0- Fully active, able to carry on all pre-disease performance w/o restriction. General appearance: alert, in no acute distress Skin: No rashes, no lumps Head: normocephalic, atraumatic Eyes: Anicteric sclera. Oropharynx: MMM Neck: Supple, no adenopathy Lungs: clear to auscultation, no wheezing or rhonchi Heart: RRR without murmur, gallop, or rubs. No ectopy Extremities: Extremities normal. No deformities or edema. Neuro: Oriented X 3, non-focal Psych: normal insight, normal perception, normal affect Hem/Lymph: No lymphoadenopathy, no splenomegaly. Labs Imaging/ Pathology Reports: CBC Latest Ref Rng & Units 06/07/2023 WBC 3.70 - 11.00 k/uL 1.17(L) RBC 3.90 - 5.20 m/uL 2.27(L) HEMOGLOBIN 11.5 - 15.5 g/dL 7.3(L) HEMATOCRIT 36.0 - 46.0 % 21.4(L) MCV 80.0 - 100.0 fL 94.3 MCH 26.0 - 34.0 pg 32.2 MCHC 30.5 - 36.0 g/dL 34.1 RDW-CV 11.5 - 15.0 % 18.3(H) PLATELETS 150 - 400 k/uL 9(LL) MPV 9.0 - 12.7 fL - BASO% % 0.0 ABS NEUT (ANC) 1.45 - 7.50 k/uL 0.14(L) ABS LYMPH 1.00 - 4.00 k/uL 0.96(L) ABS MONO <0.87 k/uL 0.00 ABS EOSIN <0.46 k/uL 0.07 ABS BASO <0.11 k/uL 0.00 NRBC /100 WBC 0.0 META% % - MYELO% % - ANISOCYTOSIS - Present LEFT SHIFT - - OVALOCYTES - Few POLYCHROMASIA - Slight RBC FRAGMENTS None Seen Few(A) TARGET CELLS - - PLATELET ESTIMATE - Decreased CMP Latest Ref Rng & Units 06/07/2023 SODIUM 136 - 144 mmol/L 141 POTASSIUM 3.7 - 5.1 mmol/L 3.8 CHLORIDE 97 - 105 mmol/L 110(H) CO2 22 - 30 mmol/L 21(L) GLUCOSE 74 - 99 mg/dL 107(H) BUN 7 - 21 mg/dL 14 CREATININE 0.58 - 0.96 mg/dL 1.09(H) EGFR >=60 mL/min/1.73m 55(L) EGFR-ALL OTHER RACES . - EGFR- - - PROTEIN, TOTAL 6.3 - 8.0 g/dL 5.4(L) ALBUMIN 3.9 - 4.9 g/dL 3.2(L) CALCIUM, TOTAL 8.5 - 10.2 mg/dL 8.7 BILIRUBIN, TOTAL 0.2 - 1.3 mg/dL 0.3 AST 13 - 35 U/L 15 ALT 7 - 38 U/L 18 ALKALINE PHOSPHATASE 34 - 123 U/L 63 INR Date Value Ref Range Status 05/31/2023 1.1 0.9 - 1.3 Final Comment: Vitamin K Antagonist (VKA) Therapeutic Range: INR 2 to 3 (Target INR of 2.5) Note: For patients treated with VKA drugs, such as warfarin, the [place] 2012 Guideline recommends a therapeutic INR range of 2 to 3 (target INR of 2.5). This recommendation includes high-risk patients with antiphospholipid syndrome with previous arterial or venous thromboembolism, current-generation mechanical or bioprosthetic aortic heart valve replacement. Note: Patients with mechanical aortic valve replacement and additional risk factors for thromboembolic events (atrial fibrillation, previous thromboembolism, LV dysfunction, hypercoagulable conditions) or an older generation mechanical AVR (i.e., ball in-Cage) or any mechanical MVR should have a INR therapeutic range of 2.5 to 3.5 (target INR of 3). Beltran GH, et al. Chest 2012, 141:7S-47S Margo RA, et al. [facility] 2017, 70: 252-289 Assessment and Plan: Ms. Princess Wilkes is a 67 year old female with prior Stage 1 ([id number]) L breast invasive and DCIS,1.5 cm, grade 2, ER/VA positive and HER2 negative s/p L lumpectomy Sep 2013 followed by adjuvant RTto L breast completed 01/06/14. Oncotype Dx 13 - so no chemo was offered. She then completed 5 years of endocrine therapy from 01/2014 - 01/2019 - letrozole followed by tamoxifen. # t-AML with TP53 Complex cytogenetics, NGS showed RUNX1 (F40Wfs*14; 20.9%); TP53 (C238Y; 63.9%); DNMT3A (R635W; 34.4%) ELN 2021 - Adverse Risk Reviewed repeat BMBx from 06/05/23, cytogenetics and NGS results with the patient 20% blasts on aspirate. Same TP53 was again noted on our NGS panel Patient was admitted to our hospital for concern for line related infection and discharged on 06/07/23. 06/01/23 C1D1 Aza (7 days) + Milton 100 mg (7 days) with concomitant Posaconazole She has been doing well since discharge and has not required any blood since discharge, she did geta unit of platelets on 06/13/23 06/25/23 - C1D25 - bone marrow bx was done today Plan: We discussed continuing Azacitidine and Venetoclax locally with Dr. Macdonald - next planned for 07/02/23, dose and recommendations for Venetoclax were discussed in details Recommendations as noted prior include: - Bone Marrow (BMBx) Assessment done today, 06/25/23 If cellularity ? 10% and/or blasts ? 5%, then treatment until count recovery. For those who have responded to venetoclax based therapy, Cycle 2 should not be started until ANC ?500/mcL and platelets ? 50,000/mcL. For subsequent cycles monitor blood counts (minimum weekly; can increase frequency based on provider preference). If treatment-related grade 4 neutropenia persists for ? 7 days or severe complications develop (i.e. febrile neutropenia), interrupt venetoclax dosing If BMBx shows residual disease, commence the next cycle without treatment dose interruption - on 07/02/23 - Further marrows depending on results of the BMBx done on 07/02/23 and count recovery - Dose of venetoclax should be based on concurrent antimicrobials, our recommendations include posaconazole 300 mg qday, levofloxacin 500 mg qday and acyclovir 400 mg BID along with 100 mg of Venetoclax (no ramp up) - In addition patient will need twice weekly labs with transfusion support to maintain PRBC>8 and Plt>10. Patient was seen by our BMT team as well - recommend BMT based on MRD negative status RTC in 1 weeks via virtual visit to discuss results of BMBx prior to initiating next cycle on 07/02/23 We will also have her see our genetic counselor given TP53 >50% - pending # Infectious: - Patient is immunocompromised - We discussed that if Ms. Sánchez develops single oral temperature of ?38.3 C (101 F) or a temperature of ?38.0 C (100.4 F) sustained over a one-hour period, she should seek medical attention urgently. 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 Oncotype Dx 13 - so nochemo was offered. She then completed 5 years of endocrine therapy from 01/2014 - 01/2019 - letrozolefollowed by tamoxifen (x1 year). F/u with local onc I answered Ms. Wilkes questions. she verbalized understanding the plan, including alternatives. Ms. Wilkes agreed with these recommendations and plan. I spent a total of 40 minutes on the date of the service which included preparing to see the patient, [id number] patient care, completing clinical documentation, obtaining and/or reviewing separately obtained history, and performing a medically appropriate examination. Mike Hughes MD Hematology and Medical Oncology, Leukemia Division 06/25/23 cc: Mike Hughes [phone] [id number] Melissa Pierce MD [address] [place] [phone] documented in this encounterSumma Health Barber[facility]10-20-2023 Miscellaneous Notes* Telephone Encounter - Agustina Quevedo MSW - 06/22/2023 2:17 PM EDT SW returned phone call from patient's spouse, De, regarding difficulties they were having using patient's [employer] copay assistance card. SW learned that patient still does not have Rx coverage via Medicare. SW reminded spouse that the giacomo only covers copays, not the cost of the drug before insurance. Spouse acknowledged his understanding of same. Spouse expressed concern that patient will not have any relevant copays before the 90-day expiration (if not used within the first 90 days of approval, the giacomo can be closed). SW opened patient's [employer]LS account and informed spouse that it appeared that $45 of the giacomo had already been used, so he shouldn't have to be concerned about patient's account being closed early. SW also encouraged the spouse to call LLS directly, if he has any further questions about use of the giacomo. SW also informed spouse that she would make a referral to a [employer] PFN for future assistance with claims. Spouse thanked REEMA for her assistance. documented in this encounterSumma Health Barberton Campus10-18-2023 Nurse Note* Edel Hobbs LPN - 06/20/2023 11:11 AM EDT Pre- e instructions: Contacted patient and confirmed appt. for bone marrow biopsy scheduled on 06/25/23, at [facility]. Diet: Do not eat solid food after midnight the night before your procedure. You may have water until your arrival time. Medications: IF ok with your Prescribing Provider: RADIOLOGY RECOMMENDS THESE MEDICATION RESTRICTIONS : None Medication pumps: Insulin pumps must be removed before entering the procedure room. Do you wear Neulasta Onpro? No If yes, the devise must be removed before entering the procedure room. Contrast Dye Prep: Do you have a contrast dye allergy? No Labs: Labs completed on 06/07/23 Arrival: Please bring your Photo ID and Insurance Card. A general consent may need to be signed. Arrival at 6:30am to desk [id number] ([facility]) and check in for your procedure. Chief Solution Architect/Transportation: How will you be arriving for your procedure? Private car. If you will be arriving [facility] via ambulance or public transportation, please call to discuss. You will need a responsible adult to accompany you to and from the procedure. Your full service vending driver is required to stay with you until you are taken into the Procedure room. Recovery expectations: You can expect to be at the hospital for the majority of the day. Please do not schedule any other appointments the day of your procedure. Written instructions provided to patient via [employer] If you have any questions please call [phone] documented in this encounterSumma Health Barberton Campus10-17-2023 Miscellaneous Notes* Telephone Encounter - Amrita Pelaez - 06/19/2023 4:00 PM EDT Spoke to pt and scheduled biopsy for 06/25/23. * Telephone Encounter - Gurmeet Webb MD, PhD - 06/15/2023 5:00 PM EDT RADIOLOGIST REQUEST / APPROVAL FORM STAFF RADIOLOGIST: Saumya PROCEDURE TO BE DONE UNDER: CT PROCEDURE REQUESTED: CORE Requested PROCEDURE: Approved TIME SLOT NEEDED: 1 Hour NOTES: Platelet count 9 on most recent labs FYI SPECIAL LABS/ PROCESSING: N/A Pre-procedure labs: CBC: not needed INR: not needed COVID: not needed SIR Bleeding risk category for this procedure: low risk. Reference from [facility] Immigration Paralegal: [email or web address] STAFF SIGNATURE: Gurmeet Webb MD DATE: June 15, 2023 TIME: 5:00 PM * Telephone Encounter - Edel Hobbs LPN - 06/15/2023 8:53 AM EDT BX. COORDINATOR INFORMATION LAB RESULTS: PT INR (no units) Date Value 10/30/2013 1.0 INR (no units) Date Value 05/31/2023 1.1 APTT (sec) Date Value 10/30/2013 32.2 Platelet Count (k/uL) Date Value 06/07/2023 9 12/25/2013 235 Current Outpatient Medications Medication Sig acyclovir (ZOVIRAX) 400 mg tablet Take 1 tablet by mouth two times a day. buPROPion (WELLBUTRIN) 75 mg tablet Take 75 mg by mouth once daily. levoFLOXacin (LEVAQUIN) 500 mg tablet Take 1 tablet by mouth once daily. OLANZapine (ZYPREXA) 2.5 mg tablet Take 1 tablet by mouth daily at bedtime. omeprazole (PRILOSEC) 20 mg capsule Take 20 mg by mouth once daily. ondansetron orally disintegrating (ZOFRAN ODT) 4 mg disintegrating tablet Take 4 mg by mouth every 8 hours as needed for nausea/vomiting. posaconazole DR (NOXAFIL) 100 mg tablet Take 3 tablets by mouth once daily. sodium chloride 0.9 %, flush, (BD POSIFLUSH) syringe Inject 10 mL intravenously once daily. Flush each lumen with 10mL NS once daily. No current facility-administered medications for this visit. ALLERGIES Allergen Reactions Vicodin [Hydrocodon* Mental Status Change FILMS SENT TO WORKSTATION: GUIDELINES FOR HOLDING ANTI-PLATELET AND ANTI- COAGULATION THERAPY: none on file NURSE SIGNATURE: Edel Hobbs LPN DATE: June 15, 2023 TIME: 8:53 AM * Telephone Encounter - Estephanie Parada RN - 06/14/2023 1:06 PM EDT STAFF-INITIATED RADIOLOGY BIOPSY / ASPIRATION / DRAIN REQUEST FORM Date: June 14, 2023 Time: 1:06 PM PATIENT CONTACT INFORMATION: Best way to reach [phone] SCHEDULING: Date: 06/25/2023 patient is scheduled for a standard marrow this day but required CT guided last time. Please call Estephanie OLEARY at [phone] if any questions. (Specific requests must be greater than 10 business days from the date of request) RADIOLOGY SERVICE GROUP (Abdominal / Thoracic / MSK / Neuro): Bone marrow biopsy SPECIFICS OF THE REQUEST (Please be as detailed as possible): FLUID COLLECTION - ASPIRATION/DRAINAGE CATHETER PLACEMENT (Location) bone marrow biopsy and aspirate SPECIAL REQUESTS: TISSUE SAMPLE, LABWORK: Special Requests: biopsy orders placed on 05/28 MEDICAL DIAGNOSIS: AML (i.e. Known primary cancer or suspected diagnosis) IMAGING STUDY AND DATE THAT IS THE BASIS OF THE REQUEST: CT Date: CT guided biopsy done on 06/01 dueto failed bedside biopsy (Note: Requests for random organ biopsies, specifically liver and kidney random biopsies do not need imaging.) IMAGING: [facility] (If the imaging was obtained outside the [facility] system, PLEASE upload for review prior to approval.) Note to all persons requesting biopsies: All biopsy requests will be scheduled as quickly as possible, based on the clinical urgency, availability of appointment times, the need to hold anti-thrombolytic therapy (aspirin and other blood thinners) and the patient s schedule, including the need for an available full service vending driver. If a percutaneous biopsy or drainage is not felt to be safe or an alternative method for establishing a diagnosis is possible, this will be discussed directly with the requesting physician. documented in this encounterSumma Health Barber[facility] Campus10-14-2023 NoteHNO ID: [id number] Author: Note, Interface Service: ? Author Type: ? Type: Progress Notes Filed: 2023 2:15 AM Note Text: Epic Scheduled Downtime: 2023 1:00:00 AM to 2023 1:28:00 [facility]10-12-2023 NoteMain [facility]10-12-2023 Miscellaneous Notes* Telephone Encounter - Mary Ohara LGC - 06/14/2023 1:24 PM EDT I left a voicemail for the patient including my contact information requesting that she return my call to discuss options for scheduling a genetic counseling visit. Mary Ohara MS, [facility], PhD Licensed, Certified Genetic Counselor documented in this encounterSumma Health Barber[facility] Campus10-05-2023 NoteMain [facility]10-04-2023 [facility]10-03-2023 Note[facility]10-03-2023 [facility]10-02-2023 Note [facility]-02-20[facility]10-01-2023 [facility]09-30-2023 [facility] 06-01-2023 [facility]09-29-2023 [facility]09-29-2023 [facility]09-29-2023 Note[facility]09-28-2023 Miscellaneous Notes* Telephone Encounter - Chika Lagos - 05/31/2023 2:54 PM EDT THE COMPLETED [employer] PATIENT ASSISTANCE APPLICATION FOR POSACONAZOLE WAS FAXED FOR CONSIDERATION. RECEIVED CALL FROM [employer] AND MORENITA SEARS, THE PATIENT WAS APPROVED FOR ASSISTANCE UNDER FOR THE DATES: 05/31/2023 - AT NO COST TO THE PATIENT. THE MEDICATION WILL BE MAILED DIRECTLY TO THE PATIENTS HOME ADDRESS WITHIN 3 TO 5 BUSINESS DAYS. EMAILED THE INFORMATION TO PRESCRIBER. documented in this encounterSumma Health Barberton Campus09-28-2023 NoteMain [facility] Center09-28-2023 Note[facility]09-28-2023 History of Past illness Narrative* Problem Noted Date Diagnosed Date Resolved Date Diarrhea 05/31/2023 06/07/2023 Overview: > Reporting diarrhea starting 05/30 > no abd pain or fevers > C diff negative 06/03 >Improving with imodium as of 06/05/23 Plan: - Imodium PRN Central line infection, initial encounter 05/28/2023 06/07/2023 Overview: > port placed at OSH on 05/25/23; pain, redness tracking up neck noted on 05/26 -- presented to OSH ED on 05/27, given pain medication, Tylenol and d/c'd home > [facility] by heme/onc and BMT who recommended admission for concerns for port infection > blood cxs x2 obtained -- NGTD > no fevers BLOOD TYPER, 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; 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 > ID consulted, appreciate assistance; now signed off > started vanc and Zosyn 05/28; Zosyn d/c'd 05/30 per ID recs > port removed 05/29 > port site now much improved w/remaining erythema and tenderness at venotomy site > Vanc (05/28-06/01) transitioned to PO doxy on 06/01 in setting of rising sCr. Completed course of abx 06/03/23. > Site improved w/abx w/mild residual erythema at venotomy site Plan: - monitor port site - Has completed full course of abx Breast cancer 09/11/2013 05/28/2023 documented as of this encounter (statuses as of 06/14/2023) [facility]09-28-2023 History of Past illness Narrative* Problem Noted Date Diagnosed Date Resolved Date Diarrhea 05/31/2023 06/07/2023 Overview: > Reporting diarrhea starting 05/30 > no abd pain or fevers > C diff negative 06/03 >Improving with imodium as of 06/05/23 Plan: - Imodium PRN Central line infection, initial encounter 05/28/2023 06/07/2023 Overview: > port placed at OSH on 05/25/23; pain, redness tracking up neck noted on 05/26 -- presented to OSH ED on 05/27, given pain medication, Tylenol and d/c'd home > seen at [facility] on 05/28 by heme/onc and BMT who recommended admission for concerns for port infection > blood cxs x2 obtained -- NGTD > no fevers BLOOD TYPER, 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; 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 > ID consulted, appreciate assistance; now signed off > started vanc and Zosyn 05/28; Zosyn d/c'd 05/30 per ID recs > port removed 05/29 > port site now much improved w/remaining erythema and tenderness at venotomy site > Vanc (05/28-06/01) transitioned to PO doxy on 06/01 in setting of rising sCr. Completed course of abx 06/03/23. > Site improved w/abx w/mild residual erythema at venotomy site Plan: - monitor port site - Has completed full course of abx Breast cancer 09/11/2013 05/28/2023 documented as of this encounter (statuses as of 06/20/2023) [facility]09-28-[facility] History of Past illness Narrative* Problem Noted Date Diagnosed Date Resolved Date Diarrhea 05/31/2023 06/07/2023 Overview: > Reporting diarrhea starting 05/30 > no abd pain or fevers > C diff negative 06/03 >Improving with imodium as of 06/05/23 Plan: - Imodium PRN Central line infection, initial encounter 05/28/2023 06/07/2023 Overview: > port placed at OSH on 05/25/23; pain, redness tracking up neck noted on 05/26 -- presented to OSH ED on 05/27, given pain medication, Tylenol and d/c'd home > seen at [facility] on 05/28 by heme/onc and BMT who recommended admission for concerns for port infection > blood cxs x2 obtained -- NGTD > no fevers BLOOD TYPER, 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; 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 > ID consulted, appreciate assistance; now signed off > started vanc and Zosyn 05/28; Zosyn d/c'd 05/30 per ID recs > port removed 05/29 > port site now much improved w/remaining erythema and tenderness at venotomy site > Vanc (05/28-06/01) transitioned to PO doxy on 06/01 in setting of rising sCr. Completed course of abx 06/03/23. > Site improved w/abx w/mild residual erythema at venotomy site Plan: - monitor port site - Has completed full course of abx Breast cancer 09/11/2013 05/28/2023 documented as of this encounter (statuses as of 06/22/2023) [facility] History of Past illness Narrative* Problem Noted Date Diagnosed Date Resolved Date Diarrhea 05/31/2023 06/07/2023 Overview: > Reporting diarrhea starting 05/30 > no abd pain or fevers > C diff negative 06/03 >Improving with imodium as of 06/05/23 Plan: - Imodium PRN Central line infection, initial encounter 05/28/2023 06/07/2023 Overview: > port placed at OSH on 05/25/23; pain, redness tracking up neck noted on 05/26 -- presented to OSH ED on 05/27, given pain medication, Tylenol and d/c'd home > seen at [facility] on 05/28 by heme/onc and BMT who recommended admission for concerns for port infection > blood cxs x2 obtained -- NGTD > no fevers BLOOD TYPER, 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; 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 > ID consulted, appreciate assistance; now signed off > started vanc and Zosyn 05/28; Zosyn d/c'd 05/30 per ID recs > port removed 05/29 > port site now much improved w/remaining erythema and tenderness at venotomy site > Vanc (05/28-06/01) transitioned to PO doxy on 06/01 in setting of rising sCr. Completed course of abx 06/03/23. > Site improved w/abx w/mild residual erythema at venotomy site Plan: - monitor port site - Has completed full course of abx Breast cancer 09/11/2013 05/28/2023 documented as of this encounter (statuses as of 06/26/2023) [facility] History of Past illness Narrative* Problem Noted Date Diagnosed Date Resolved Date Diarrhea 05/31/2023 06/07/2023 Overview: > Reporting diarrhea starting 05/30 > no abd pain or fevers > C diff negative 06/03 >Improving with imodium as of 06/05/23 Plan: - Imodium PRN Central line infection, initial encounter 05/28/2023 06/07/2023 Overview: > port placed at OSH on 05/25/23; pain, redness tracking up neck noted on 05/26 -- presented to OSH ED on 05/27, given pain medication, Tylenol and d/c'd home > seen at [facility] on 05/28 by heme/onc and BMT who recommended admission for concerns for port infection > blood cxs x2 obtained -- NGTD > no fevers BLOOD TYPER, 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; 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 > ID consulted, appreciate assistance; now signed off > started vanc and Zosyn 05/28; Zosyn d/c'd 05/30 per ID recs > port removed 05/29 > port site now much improved w/remaining erythema and tenderness at venotomy site > Vanc (05/28-06/01) transitioned to PO doxy on 06/01 in setting of rising sCr. Completed course of abx 06/03/23. > Site improved w/abx w/mild residual erythema at venotomy site Plan: - monitor port site - Has completed full course of abx Breast cancer 09/11/2013 05/28/2023 documented as of this encounter (statuses as of 06/26/2023) [facility] History of Past illness Narrative* Problem Noted Date Diagnosed Date Resolved Date Diarrhea 05/31/2023 06/07/2023 Overview: > Reporting diarrhea starting 05/30 > no abd pain or fevers > C diff negative 06/03 >Improving with imodium as of 06/05/23 Plan: - Imodium PRN Central line infection, initial encounter 05/28/2023 06/07/2023 Overview: > port placed at OSH on 05/25/23; pain, redness tracking up neck noted on 05/26 -- presented to OSH ED on 05/27, given pain medication, Tylenol and d/c'd home > seen at [facility] on 05/28 by heme/onc and BMT who recommended admission for concerns for port infection > blood cxs x2 obtained -- NGTD > no fevers BLOOD TYPER, 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; 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 > ID consulted, appreciate assistance; now signed off > started vanc and Zosyn 05/28; Zosyn d/c'd 05/30 per ID recs > port removed 05/29 > port site now much improved w/remaining erythema and tenderness at venotomy site > Vanc (05/28-06/01) transitioned to PO doxy on 06/01 in setting of rising sCr. Completed course of abx 06/03/23. > Site improved w/abx w/mild residual erythema at venotomy site Plan: - monitor port site - Has completed full course of abx Breast cancer 09/11/2013 05/28/2023 documented as of this encounter (statuses as of 07/02/2023) [facility] History of Past illness Narrative* Problem Noted Date Diagnosed Date Resolved Date Diarrhea 05/31/2023 06/07/2023 Overview: > Reporting diarrhea starting 05/30 > no abd pain or fevers > C diff negative 06/03 >Improving with imodium as of 06/05/23 Plan: - Imodium PRN Central line infection, initial encounter 05/28/2023 06/07/2023 Overview: > port placed at OSH on 05/25/23; pain, redness tracking up neck noted on 05/26 -- presented to OSH ED on 05/27, given pain medication, Tylenol and d/c'd home > seen at [facility] on 05/28 by heme/onc and BMT who recommended admission for concerns for port infection > blood cxs x2 obtained -- NGTD > no fevers BLOOD TYPER, 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; 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 > ID consulted, appreciate assistance; now signed off > started vanc and Zosyn 05/28; Zosyn d/c'd 05/30 per ID recs > port removed 05/29 > port site now much improved w/remaining erythema and tenderness at venotomy site > Vanc (05/28-06/01) transitioned to PO doxy on 06/01 in setting of rising sCr. Completed course of abx 06/03/23. > Site improved w/abx w/mild residual erythema at venotomy site Plan: - monitor port site - Has completed full course of abx Breast cancer 09/11/2013 05/28/2023 documented as of this encounter (statuses as of 07/07/2023) [facility] History of Past illness Narrative* Problem Noted Date Diagnosed Date Resolved Date Diarrhea 05/31/2023 06/07/2023 Overview: > Reporting diarrhea starting 05/30 > no abd pain or fevers > C diff negative 06/03 >Improving with imodium as of 06/05/23 Plan: - Imodium PRN Central line infection, initial encounter 05/28/2023 06/07/2023 Overview: > port placed at OSH on 05/25/23; pain, redness tracking up neck noted on 05/26 -- presented to OSH ED on 05/27, given pain medication, Tylenol and d/c'd home > seen at [facility] on 05/28 by heme/onc and BMT who recommended admission for concerns for port infection > blood cxs x2 obtained -- NGTD > no fevers BLOOD TYPER, 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; 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 > ID consulted, appreciate assistance; now signed off > started vanc and Zosyn 05/28; Zosyn d/c'd 05/30 per ID recs > port removed 05/29 > port site now much improved w/remaining erythema and tenderness at venotomy site > Vanc (05/28-06/01) transitioned to PO doxy on 06/01 in setting of rising sCr. Completed course of abx 06/03/23. > Site improved w/abx w/mild residual erythema at venotomy site Plan: - monitor port site - Has completed full course of abx Breast cancer 09/11/2013 05/28/2023 documented as of this encounter (statuses as of 07/11/2023) [facility] History of Present illness Narrative* Brianna Pham MD - 05/28/2023 3:51 PM EDT Chief complaint: 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 Oncotype Dx 13 and therefore she did not receive chemotherapy. She completed 5 years of end ocrine therapy from January 2014 through January 2019 with letrozole followed by tamoxifen for 1 year. She noted in November 2022 at the time of her routine physical she had some leukopenia. In February and March 2023 she reportedly experienced some bronchitis for which she received 2 courses of antibiotics. The patient noted having further fatigue and increased by May 03, 2023 at which time she also experienced easy bruising. She initially presented to [place] emergency department and was subsequently transferred to [facility] for further evaluation. She was noted to have a WBC of 2.1 with no circulating blasts, 89% lymphocytes, hemoglobin 8.9 and platelet count 20. A chest x-ray reportedly was unrevealing. Testing for COVID-19 and influenza along with viral hepatitis and HIV were negative. A CT scan of the chest was without evidence to suggest metastatic disease, but showed left breast postoperative changes. A 1.2 cm indeterminate soft tissue nodule was noted in the inferior medial right breast. A CT scan of the abdomen/pelvis reportedly was unremarkable. She has been discharged on a course of ciprofloxacin. The patient later had a bone marrow examination performed on 05/08/2023 that was hemodilute, but the outside pathology report indicated clot sections with foci of hematopoietic marrow replaced by an immature/blastic population and flow cytometric analysis revealed 29.8% CD34 positive myeloblasts consistent with AML. The bone marrow cytogenetics revealed complex cytogenetics/an NGS AML profile by [employer] revealed the following mutations:RUNK1 F40Wfs*14, TP53 C238Y, and DNMT3A R635W. The patient had a right sided Port-A-Cath placed on 05/26/2023 and was initially anticipated to start Vidaza and venetoclax next week. However, the Port-A-Cath site became extremely tender with surrounding erythema. She was evaluated earlier today by Dr. Mike Hughes and our Leukemia Program here at the [facility] and subsequently was referred to me for a transplant regarding allogenic hematopoietic cell transplantation. At the time of her visit she noted having some prior diffuse pain for which she had been in [facility]'s emergency department yesterday and received an injection of morphine and was dischargedon Tylenol #3. She has had an occasional cough as well as some residual fatigue that improves afterblood transfusions. She has some residual contusions on her extremities as well, but denied having o ther complaints. Past medical history: Therapy-related AML Left breast carcinoma status post lumpectomy and radiation therapy followed by letrozole and tamoxifen as above (2013) Status post vaginal hysterectomy/BSO for fibroids and endometriosis (2011) Left ankle fracture status post surgical placement of a plate and screws (2008) were subsequently removed Right wrist fracture status post surgery (2019) Status post left knee arthroscopic surgery Status post right Port-A-Cath placement (05/26/2023) Allergies: NKDA, but she noted having an intolerance to Vicodin Medications: See list in epic Social history: The patient is and previously worked as a [employer] for 42 years and has been retired more recently. She occasionally consumes alcohol but denied any cigarette or illicit drug use. Family history: The patient's brother has a chronic leukemia (age 75), her father had prostate carcinoma in his 60s. Her paternal grandfather had gastric carcinoma at age 84 and her paternal grandmother had ovarian carcinoma at age 69 while a paternal aunt had breast carcinoma age 76. She has 3 sisters (ages 65, 61 and 58) as well as a 46-year-old daughter and a 41-year-old son. KPS: 70% ECOG PS: 1 REVIEW OF SYSTEMS: Constitutional: + Fatigue no fevers, chills, night sweats, or weight loss. HEENT: unremarkable. Neck: No pain. Pulmonary: Has experienced some dyspnea on exertion with worsening anemia, but currently no complaints of shortness of breath; occasional cough after her recent Port-A-Cath placement. Cardiac: No chest pain. GI: No nausea, vomiting, diarrhea, or blood loss. Back: No pain. Lymphatics: No palpable lymphadenopathy. : No hematuria or dysuria. Extremities: No edema. Neurologic:unremarkable. Skin: Few scattered contusions on her extremities, erythema/tenderness around the right Port-A-Cath site tracking down to the right upper breast but no other rash. PHYSICAL EXAMINATION: GENERAL: Pleasant, obese white woman alert in no apparent distress. HEENT: Atraumatic, PERRLA/EOMI, no epistaxis and a normal oral mucosa. NECK: Supple without lymphadenopathy. LUNGS: Clear to auscultation. CARDIAC: Regular rate and rhythm. ABDOMEN: Active bowel sounds, soft, nondistended, nontender, without appreciable hepatosplenomegaly. BACK: No tenderness. LYMPHATICS: No appreciable lymphadenopathy. EXTREMITIES: No edema. NEUROLOGIC: Alert and oriented, without gross focal deficits. SKIN: Few scattered contusions on her extremities, erythema/tenderness around the right Fmok-O-Ruslqglx tracking down to the right upper breast but no other rash. . Impression/recommendation: In summary, Mrs. Wilkes is a woman with a history of stage I ([id number]) invasive breast carcinoma and DCIS of the left breast, 1.5 cm, grade 2, ER/VA positive and HER2 negative status post lumpectomy in September 2013 followed by adjuvant radiation therapy completed on January 06, 2014. Oncotype Dx 13 and therefore she did not receive chemotherapy. She completed 5 years of endocrine therapy from January 2014 through January 2019 with letrozole followed by tamoxifen for 1 year. In November 2022 she was noted to have some leukopenia and subsequently developed increasing fatigue and easybruising. Due to the development of worsening cytopenias a bone marrow examination had been obtained on 05/08/2023 that per the outside report established a diagnosis of AML with complex cytogenetics and the following mutations:RUNK1 F40Wfs*14, TP53 C238Y, and DNMT3A R635W. She has received some blood product transfusion support and initially was planned to locally start Vidaza today and venetoclax, but she did not receive this therapy yet. At the time of my consultation I discussed the nature of her therapy-related AML and the potential role of an allogeneic hematopoietic cell transplant with the associated risks, benefits, alternatives, equipment and personnel involved of which she and her expressed a good understanding. We will obtain HLA typing on the patient and potentially her younger siblings and children. We also maysearch the National Marrow Donor Program/ [employer] registry for a potential matched unrelated donor. If she has no HLA matched related or unrelated donors then alternative donor sources for transplant would include either an HLA mismatched unrelated donor or a haploidentical or umbilical cord blood unit(s) graft. Given her very poor risk disease with complex cytogenetics and a TP53 mutation she is at very high risk of relapse after transplant, particularly with a reduced intensity conditioning approach given her older age. As such, for this to even be a consideration she will need to achieve a complete remission with AML MRD negative testing. Her case will need to be presented at and approved by our Transplant Selection Committee and she will need to have acceptable pre-transplant test results before she may proceed with a transplant at our institution. We will be in contact with the patient when the HLA results are available. For now she will continue to follow with Dr. Macdonald and her other physicians for the remainder of her non-transplant medical care. She and her hadtheir questions answered, they understand my recommendations and are in agreement with the proposedplan. If they have further questions they may contact me, the BMT office or one of his other physicians. Of note, since her new right Port-A-Cath site was extremely tender with erythema tracking down through her right breast consistent with a cellulitis I sent the patient to our emergency department forfurther evaluation and management. She potentially may be admitted to our inpatient Leukemia service. I discussed her case today with her local oncologist, Dr. Sherry Macdonald, as well as with Dr. Hughes here in our Leukemia program who saw the patient today and Dr. Mahesh Cantor the attending physicianon our inpatient Leukemia service. Brianna Pham MD CC: Sherry Macdonald MD office phone: , cell: office MD Melissa Hill MD (PCP) documented in this encounter[facility]09-[facility]-2023 History of Present illness Narrative* Aurelia Hines RN - 05/28/2023 1:50 PM EDT HLA initial tissue typing: Met with Princess Wilkes on May 28, 2023 to discuss the test of HLA tissue typing requested by Dr Hughes . Patient identified by name and date of : yes. I discussed the need to obtain blood from them today as well as from any siblings to try to identify a blood or marrow donor. Patient was given printed information regarding tissue typing (ie: about the tissue typing test) as well as planning for a potential allogeneic BMT and the transplant basics book provided by [facility]. Instructions provided to have siblings register online or call with provided information. Patient instructed to call Aurelia Hines RN , pager [phone] with any questions. Business card provided. Patient verbalized understanding of above. Brianna Pham M.D. notified via electronic chart documentation that contact has been made. Princess Wilkes has 1 siblings and 2 children. If the BMT physician recommends a search for an unrelated blood or marrow donor via the National Marrow Donor Program and any other donor registries because there are no suitable related donors available, the patient has given verbal permission to initiate this unrelated donor search. Aurelia Hines RN documented in this encounter[facility] Nurse Note* Cathleen Schuster LPN - 05/28/2023 1:26 PM EDT Reviewed and discussed nursing notes,vital signs,recent tests,,medications with the patient. documented in this encounterSum[facility]09-25-2023 [facility]04-21-2023 History of Present illness Narrative* Lynnette Malcolm RN - 12/22/2022 3:15 PM EDT Patient verbalizes readiness for discharge. Discharge instructions given to patient and responsibleadult, answered all questions, and verbalized understanding of discharge instructions. Discharge Criteria Inpatients must meet Criteria 1 through 7. All other patients are either YES or N/A. If a NO is chosen then Anesthesia or Surgeon must be notified. 1. Minimum 30 minutes after last dose of sedative medication, minimum 120 minutes after last dose of reversal agent. Yes 2. Systolic BP stable within 20 mmHg for 30 minutes & systolic BP between 90 & 180 or within 10 mmHg of baseline. Yes 3. Pulse between 60 and 100 or within 10 bpm of baseline. Yes 4. Spontaneous respiratory rate >/= 10 per minute. Yes 5. SaO2 >/= 95 or >/= baseline. Yes 6. Able to cough and swallow or return to baseline function. Yes 7. Alert and oriented or return to baseline mental status. Yes 8. Demonstrates controlled, coordinated movements, ambulates with steady gait, or return to baseline activity function. Yes 9. Minimal or no pain or nausea, or at a level tolerable and acceptable to patient. Yes 10. Takes and retains oral fluids as allowed. Yes 11. Procedural / perioperative site stable. Minimal or no bleeding. Yes 12. If GI endoscopy procedure, minimal or no abdominal distention or passing flatus. N/A 13. Written discharge instructions and emergency telephone number provided. Yes 14. Accompanied by a responsible adult. Yes * Lynnette Malcolm RN - 12/22/2022 2:[address] Malik at bedside to speak with patient and . Small amount of oozing noted in between steri-strips. Dr. Malik held pressure to incision, folded 4x4 dressing placed, and secured with coban. Dr. Malik instructed patient and to leave dressing on until tomorrow, then okay to removeand shower. * New Marks RN - 12/07/2022 1:42 PM EDT Patient instructed per phone interview on the pre-operative, intra-operative, and post-operative process, as well as NPO status. Pre-operative instruction sheet reviewed as well as G skin prep instructions. Verbalizes understanding. Patient had wellness lab and EKG completed 12/06/22 at [facility]. * New Marks RN - 12/07/2022 1:28 PM EDT Attempted PAT phone call; no answer; message left to return PAT phone call. [facility] [employer] Phone: 1(679) 287-771404-21-2023 Hospital Discharge instructions* Discharge Instructions* Lynnette Malcolm RN - 12/22/2022 2:49 PM EDT SAME DAY SURGERY DISCHARGE INSTRUCTIONS 1. Do not drive or operate hazardous machinery for 24 hours. 2. Do not make important personal or business decisions for 24 hours. 3. Do not drink alcoholic beverages for 24 hours. 4. Do not smoke tobacco products for 24 hours. 5. Eat light foods (Jell-O, soups, etc....) and drink plenty of fluids (water, Sprite, etc...) up to 8 glasses per day, as you can tolerate. 6. If your bandages become soaked with bright red blood, place another dressing pad over your bandages. (DO NOT remove original bandage.) Call your surgeon for further instructions. A small amount ofbright red blood is to be expected. 7. Limit your activities for 24 hours. Do not engage in heavy work until your surgeon gives you permission. 8. Patient should not be left alone for 12-24 hours following surgical procedure. 9. Report the following signs or any questions regarding your physical condition to your surgeon immediately: Excessive swelling of, or around the wound area. Redness. Temperature of 100 degrees (F) or above. Excessive pain. 10. Call your surgeon for any questions regarding your surgery. 11. Wash hands before and after incision care. It is important to practice good personal hygiene during the post op period. 12. Keep your appointment to see your surgeon for follow-up. Dr. Malik's Instructions: Remove the outer wrap dressing tomorrow at anytime. Leave the steristrips on. Ok to shower with thesteristrips. No heavy lifting with the left arm over 20 pounds for 2 weeks. Ice pack to area as needed. Ok to lay on the wound. Expect bruising, swelling, numbness, tenderness for 1-2 weeks. Call the office if questions [phone] documented [facility] [employer] Phone: 1(153) 775-781801-09-2014 History of Past illness Narrative* Problem Noted Date Diagnosed Date Resolved Date Breast cancer 09/11/2013 05/28/2023 documented as of this encounter (statuses as of 05/28/2023) [facility]01[facility] History of Past illness Narrative* Problem Noted Date Diagnosed Date Resolved Date Breast cancer 09/11/2013 05/28/2023 documented as of this encounter (statuses as of 05/29/2023) [facility] History of Past illness Narrative* Problem Noted Date Diagnosed Date Resolved Date Breast cancer 09/11/2013 05/28/2023 documented as of this encounter (statuses as of 06/01/2023) [facility] note* Diagnosis Acute postoperative pain- Primary Other acute postoperative pain Lipoma of left forearm documented in this encounter [facility] [employer] 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 Pancytopenia (HCC) Other pancytopenia History of breast cancer Personal history of malignant neoplasm of breast 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) [facility] Diagnosis 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 Pancytopenia (HCC) Other pancytopenia [facility]* Diagnosis 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) [facility] Diagnosis 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 Hospital discharge follow-up Other follow-up examination Pancytopenia (HCC) Other pancytopenia Colitis Other and unspecified noninfectious gastroenteritis and colitis [facility] Diagnosis 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 [facility] Diagnosis 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 documented in this [facility] Diagnosis 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) documented in this encounter [facility] Summary Purpose Family History No Family History Records FoundNo Family History Records FoundNo Family History Records FoundNo Family History Records FoundNo Family History Records Found Advance Directives No Advanced Directives Records FoundNo Advanced Directives Records FoundNo Advanced Directives Records FoundNo Advanced Directives Records FoundNo Advanced Directives Records Found Medications Administered Section Inactive Administered Medications - up to 3 most recent administrations Medication Order MAR Action Action Date Dose Rate Site ondansetron (PF) 4 mg injection (ZOFRAN) 4 mg, INTRAVENOUS, EVERY 6 HOURS NEEDED, Starting on Sun06/25/23 at 0925, Until Sun06/26/23 at 0303, Nausea/Vomiting - First Line - Parenteral, Give IV push over 2 minutes Additional Source Comments INFORMATION SOURCE (unrecogn ized section and content) DATE CREATED AUTHOR 06/15/2021 [facility] DATE CREATED AUTHOR AUTHOR'S ORGANIZ ATION 08/17/2021 [facility] DATE CREATED AUTHOR AUTHOR'S ORGANIZ ATION [facility] DATE CREATED AUTHOR AUTHOR'S ORGANIZ ATION 05/25/2023 [facility] DATE CREATED AUTHOR AUTHOR'S ORGANIZ ATION 08/18/2023 [facility] Reason for Visit (unrecogniz ed section and content) Specialty Diagnoses / Procedures Referred By Katerin james Referred To Contact Diagnoses 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 Procedures VA EXC B9 LESION MRGN XCP SK TG T/A/L 0.5 CM/< ARM LESION BIOPSY EXCISION-INNER ARM LIPOMA Martha Malik DO [address] [place] [address] [facility] [address] [place] [address] Referral ID Status Reason Start Date Expiration Date Visits Re quested Visits Authorized [id number] 1 1 Reason Comments Consult Reason Comments Biopsy Request Reason Comments Patient Question Reason Comments Established Patient Reason Comments Leukemia Reason Onset Date Comments Refill Request 08/07/2023 Reason Comments Patient Education (Transplant) BMT Plann ing Reason Onset Date Comments Refill Request 08/09/2023 Reason Comments Consent Presentation IRB [id number] Reason Comments Appointment Ordered Prescriptions (unrec ognized section and content) Prescription Sig Dispensed Refills Start Date End Da te traMADol (ULTRAM) 50 MG tabletIndications:Acute postoperative pain Take 1 tablet by mouth every 8 hours as needed for Pain for up to 4 days. Intended supply: 3 days. Take lowest dose possible to manage pain Max Daily Amount: 150 mg 12 tablet 0 12/22/2022 12/26/2022 Scheduled Active and Recently Administ ered Medications (unrecognized section and content) Medication Order 12/20/2022 12/21/2022 12/22/2022 acetaminophen (TYLENOL) tablet 650 mg (COMPLETED) 650 mg, Oral, ONCE, 1 dose, On Sun12/22/22 at 1145, Maximum dose of acetaminophen is 4000 mg from all sources in 24 hours., Pre-op (day of surgery) 1153 (Given - Provid er: Charity Ge RN) ceFAZolin (ANCEF) 3000 mg in sodium chloride 0.9% 100 mL IVPB (COMPLETED) 3,000 mg, IntraVENous, ONCE, 1 dose, On Sun12/22/22 at 1145, Antimicrobial Indications: Surgical Prophylaxis, Pre-op (day of surgery) 1338 (New Bag - Prov ider: Faye Larsen, RN)1408 (Due: Stopped - Provider: Faye Larsen RN) dimenhyDRINATE (DRAMAMINE) tablet 50 mg (COMPLETED) 50 mg, Oral, ONCE, 1 dose, On Sun12/22/22 at 1145, Pre-op (day of surgery) 1153 (Given - Provid er: Charity Ge RN) Continuous Medication Order 12/20/2022 12/21/2022 12/22/2022 lactated ringers IV soln infusion IntraVENous, at 100 mL/hr, CONTINUOUS, Starting on Sun12/22/22 at 1145, Pre-op (day of surgery) 1154 (New Bag - Prov ider: Charity Ge RN)1505 (Stopped - Provider: Lynnette Malcolm RN) PRN Medication Order 12/20/2022 12/21/2022 12/22/2022 bupivacaine-EPINEPHrine PF (MARCAINE-w/EPINEPHRINE) 0.5% -[id number] injection (CANCELED) PRN, Starting on Sun12/22/22 at 1425, Until Sun12/22/22 at 1430, Intra-op 1425 (Given - Provid er: Martha Malik DO) PRN Medication Order 06/23/2023 06/24/2023 06/25/2023 fentaNYL 50 mcg/mL injection (SUBLIMAZE) (CANCELED) INTRAVENOUS, X (OR/PROCEDURE) PRN, Starting on Sun06/25/23 at 0838, Until Sun06/25/23 at 0910, Intraprocedure 0838 (Given - Provid er: Carmen Agudelo RN)0847 (Given - Provider: Carmen Agudelo RN) lidocaine (PF) 20 mg/mL (2 %) injection (XYLOCAINE) (CANCELED) SUBCUTANEOUS, X (OR/PROCEDURE) PRN, Starting on Sun06/25/23 at 0840, Until Sun06/25/23 at 0910, Intraprocedure 0840 (Given - Provid er: Robinson Benito MD - Comment: site) midazolam (PF) injection (VERSED) (CANCELED) INTRAVENOUS, X (OR/PROCEDURE) PRN, Starting on Sun06/25/23 at 0838, Until Sun06/25/23 at 0910, Intraprocedure 0838 (Given - Provid er: Carmen Agudelo, MAMTA)0847 (Given - Provider: Carmen Agudelo, MAMTA) ondansetron (PF) 4 mg injection (ZOFRAN) 4 mg, INTRAVENOUS, EVERY 6 HOURS NEEDED, Starting on Sun06/25/23 at 0925, Until Sun06/26/23 at 0303, Nausea/Vomiting - First Line - Parenteral, Give IV push over 2 minutes Care Teams (unrecognized sec tion and content) Tape Folding Machine Operator Relationship Specialty Start Date End Date Wonderly, Melissa Banuelos MD [address] [place] [address] PCP - General Family Medicine 11/17/22 Tape Folding Machine Operator Relationship Specialty Start Date End Date Wonderly, Melissa Shahid MD PCP - General Family Medicine 08/25/13 Tape Folding Machine Operator Relationship Specialty Start Date End Date Wonderly, Melissa Shahid MD PCP - General Family Medicine 08/25/13 Tape Folding Machine Operator Relationship Specialty Start Date End Date Wonderly, Melissa Shahid MD PCP - General Family Medicine 08/25/13 Tape Folding Machine Operator Relationship Specialty Start Date End Date Wonderly, Melissa Shahid MD PCP - General Family Medicine 08/25/13 Tape Folding Machine Operator Relationship Specialty Start Date End Date Wonderly, Melissa Shahid MD PCP - General Family Medicine 08/25/13 Mike Hughes MD [address] [place] [address] Physician Hematology/Oncology 06/19/23 Tape Folding Machine Operator Relationship Specialty Start Date End Date WonderMelissa conrad MD PCP - General Family Medicine 08/25/13 Mike Hughes MD [address] [place] [address] Physician Hematology/Oncology 06/19/23 Tape Folding Machine Operator Relationship Specialty Start Date End Date Wonderhouston, Melissa Shahid MD PCP - General Family Medicine 08/25/13 Mike Hughes MD [address] [place] [address] Physician Hematology/Oncology 06/19/23 Tape Folding Machine Operator Relationship Specialty Start Date End Date Melissa Pierce MD PCP - General Family Medicine 08/25/13 Mike Hughes MD [address] [place] [address] Physician Hematology/Oncology 06/19/23 Tape Folding Machine Operator Relationship Specialty Start Date End Date Melissa Pierce MD PCP - General Family Medicine 08/25/13 Mike Hughes MD [address] [place] [address] Physician Hematology/Oncology 06/19/23 Dania Hill, MAMTA Specialty Commercial Cleaner Hematology/Oncology 06/28/23 Tape Folding Machine Operator Relationship Specialty Start Date End Date Melissa Pierce MD PCP - General Family Medicine 08/25/13 Mike Hughes MD [address] [place], [place] [phone] Physician Hematology/Oncology 06/19/23 Dania Hill, MAMTA Specialty Commercial Cleaner Hematology/Oncology 06/28/23 Tape Folding Machine Operator Relationship Specialty Start Date End Date Melissa Pierce MD PCP - General Family Medicine 08/25/13 Mike Hughes MD [address] [place], [place] [phone] Physician Hematology/Oncology 06/19/23 Dania Hill RN Specialty Commercial Cleaner Hematology/Oncology 06/28/23 Tape Folding Machine Operator Relationship Specialty Start Date End Date Melissa Pierce MD PCP - General Family Medicine 08/25/13 Mike Hughes MD [address] [place] [address] Physician Hematology/Oncology 06/19/23 Dania Hill, RN Specialty Commercial Cleaner Hematology/Oncology 06/28/23 [place] [address] [place] [id number] Specialty Commercial Cleaner Blood and Marrow Transplant 08/06/23 [place] [address] [place] [id number] Transplant Physician Blood and Marrow Transplant 08/06/23 Tape Folding Machine Operator Relationship Specialty Start Date End Date Melissa Pierce MD PCP - General Family Medicine 08/25/13 Mike Hughes MD [address] [place], [place] [id number] Physician Hematology/Oncology 06/19/23 Dania Hill, MAMTA Specialty Commercial Cleaner Hematology/Oncology 06/28/23 Georgina Kumar, MAMAT [address] [place] [address] Specialty Commercial Cleaner Blood and Marrow Transplant 08/06/23 [place] [address] [place] [address] Transplant Physician Blood and Marrow Transplant 08/06/23 Tape Folding Machine Operator Relationship Specialty Start Date End Date Melissa Pierce MD PCP - General Family Medicine 08/25/13 Mike Hughes MD [address] [place] [id number] Physician Hematology/Oncology 06/19/23 Dania Hill, MAMTA Specialty Commercial Cleaner Hematology/Oncology 06/28/23 Georgina Kumar, MAMTA [address] [place] [address] Specialty Commercial Cleaner Blood and Marrow Transplant 08/06/23 [place] [address] [place] [address] Transplant Physician Blood and Marrow Transplant 08/06/23 Tape Folding Machine Operator Relationship Specialty Start Date End Date Melissa Pierce MD PCP - General Family Medicine 08/25/13 Mike Hughes MD [address] [place], [place] [id number] Physician Hematology/Oncology 06/19/23 Dania Hill RN Specialty Commercial Cleaner Hematology/Oncology 06/28/23 [place] [address] [place] [address] Specialty Commercial Cleaner Blood and Marrow Transplant 08/06/23 [place] Ph[place] [id number] [place] [address] Transplant Physician Blood and Marrow Transplant 08/06/23 Tape Folding Machine Operator Relationship Specialty Start Date End Date Melissa Pierce MD PCP - General Family Medicine 08/25/13 Mike Hughes MD [address] [place] [address] Physician Hematology/Oncology 06/19/23 Dania Hill RN Specialty Commercial Cleaner Hematology/Oncology 06/28/23 Georgina Kumar, MAMTA [address] [place] [address] Specialty Commercial Cleaner Blood and Marrow Transplant 08/06/23 Brianna Pham MD [address] [place] [address] Transplant Physician Blood and Marrow Transplant 08/06/23 Tape Folding Machine Operator Relationship Specialty Start Date End Date Melissa Pierce MD PCP - General Family Medicine 08/25/13 Mike Hughes MD [address] [place], [place] [phone] Physician Hematology/Oncology 06/19/23 [place] [address] [place] [address] Specialty Commercial Cleaner Blood and Marrow Transplant 08/06/23 Brianna Pham MD [address] [place] [address] Transplant Physician Blood and Marrow Transplant 08/06/23 Sofya Schmdi RN Specialty Commercial Cleaner Hematology/Oncology 08/09/23 Fidelina Shearer LISW [address] [place] [address] Blood and Marrow Transplant 08/09/23 Tape Folding Machine Operator Relationship Specialty Start Date End Date Melissa Pierce MD PCP - General Family Medicine 08/25/13 [place] [address] [place] [address] Physician Hematology/Oncology 06/19/23 [place] [address] [place] [address] Specialty Commercial Cleaner Blood and Marrow Transplant 08/06/23 Brianna Pham MD [address] [place] [address] Transplant Physician Blood and Marrow Transplant 08/06/23 Sofya Schmid RN Specialty Commercial Cleaner Hematology/Oncology 08/09/23 Fidelina Shearer LISW [address] [place] [address] Blood and Marrow Transplant 08/09/23 Tape Folding Machine Operator Relationship Specialty Start Date End Date Melissa Pierce MD PCP - General Family Medicine 08/25/13 Mike Hughes MD [address] [place] [address] Physician Hematology/Oncology 06/19/23 Georgina Kumar, MAMTA [address] [place] [address] Specialty Commercial Cleaner Blood and Marrow Transplant 08/06/23 [place] [address] [place] [address] Transplant Physician Blood and Marrow Transplant 08/06/23 Sofya Schmid RN Specialty Commercial Cleaner Hematology/Oncology 08/09/23 Fidelina Shearer LISW [address] [place], [place] [phone] Blood and Marrow Transplant 08/09/23 Tape Folding Machine Operator Relationship Specialty Start Date End Date Wonderly, Melissa Shhaid MD PCP - General Family Medicine 08/25/13 Mike Hughes MD [address] [place] [address] Physician Hematology/Oncology 06/19/23 Dania Hill, RN Specialty Commercial Cleaner Hematology/Oncology 06/28/23 08/08/23 Georgina Kumar, MAMTA [address] [place] [address] Specialty Commercial Cleaner Blood and Marrow Transplant 08/06/23 [place] [address] [place] [address] Transplant Physician Blood and Marrow Transplant 08/06/23 Sofya Schmid, MAMTA Specialty Commercial Cleaner Hematology/Oncology 08/09/23 Fidelina Shearer LISW [address] [place], [place] [id number] Blood and Marrow Transplant 08/09/23 Tape Folding Machine Operator Relationship Specialty Start Date End Date Kari, Melissa Shahid MD PCP - General Family Medicine 08/25/13 Mike Hughes MD [address] [place] [address] Physician Hematology/Oncology 06/19/23 [place] [address] [place] [address] Specialty Commercial Cleaner Blood and Marrow Transplant 08/06/23 [place] [address] [place], [place] [phone] Transplant Physician Blood and Marrow Transplant 08/06/23 Sofya Schmid, MAMTA Specialty Commercial Cleaner Hematology/Oncology 08/09/23 Fidelina Shearer LISW [address] [place] [address] Blood and Marrow Transplant 08/09/23 Source Comments (unrecognize d section and content) In the event this informatio n is protected by the Federal Confidentiality of Alcohol and Drug Abuse Patient Records regulations: The Federal rules restrict any use of the information to criminally investigate or prosecute any alcohol or drug abuse patient.[facility] the event this information is protected by the Federal Confidentiality of Alcohol and Drug Abuse Patient Records regulations: The Federal rules restrict any use of the information to criminally investigate or prosecute any alcohol or drug abuse patient.[facility] the event this information is protected by the Federal Confidentiality of Alcohol and Drug Abuse Patient Records regulations: The Federal rules restrict any use of the information to criminally investigate or prosecute any alcohol or drug abuse patient.[facility] Campus[facility] the event this information is protected by the Federal Confidentiality of Alcohol and Drug Abuse Patient Records regulations: The Federal rules restrict any use of the information to criminally investigate or prosecute any alcohol or drug abuse patient.[facility] CampusIn the event this information is protected by the Federal Confidentiality of Alcohol and Drug Abuse Patient Records regulations: The Federal rules restrict any use of the information to criminally investigate or prosecute any alcohol or drug abuse patient.[facility] CampusIn the event this information is protected by the Federal Confidentiality of Alcohol and Drug Abuse Patient Records regulations: The Federal rules restrict any use of the information to criminally investigate or prosecute any alcohol or drug abuse patient.[facility] CampusIn the event this information is protected by the Federal Confidentiality of Alcohol and Drug Abuse Patient Records regulations: The Federal rules restrict any use of the information to criminally investigate or prosecute any alcohol or drug abuse patient.[facility] the event this information is protected by the Federal Confidentiality of Alcohol and Drug Abuse Patient Records regulations: The Federal rules restrict any use of the information to criminally investigate or prosecute any alcohol or drug abuse patient.[facility] Campus[facility] the event this information is protected by the Federal Confidentiality of Alcohol and Drug Abuse Patient Records regulations: The Federal rules restrict any use of the information to criminally investigate or prosecute any alcohol or drug abuse patient.[facility] Campus[facility] the event this information is protected by the Federal Confidentiality of Alcohol and Drug Abuse Patient Records regulations: The Federal rules restrict any use of the information to criminally investigate or prosecute any alcohol or drug abuse patient.[facility] Campus[facility] the event this information is protected by the Federal Confidentiality of Alcohol and Drug Abuse Patient Records regulations: The Federal rules restrict any use of the information to criminally investigate or prosecute any alcohol or drug abuse patient.[facility] CampusIn the event this information is protected by the Federal Confidentiality of Alcohol and Drug Abuse Patient Records regulations: The Federal rules restrict any use of the information to criminally investigate or prosecute any alcohol or drug abuse patient.[facility] CampusIn the event this information is protected by the Federal Confidentiality of Alcohol and Drug Abuse Patient Records regulations: The Federal rules restrict any use of the information to criminally investigate or prosecute any alcohol or drug abuse patient.[facility] CampusIn the event this information is protected by the Federal Confidentiality of Alcohol and Drug Abuse Patient Records regulations: The Federal rules restrict any use of the information to criminally investigate or prosecute any alcohol or drug abuse patient.[facility] CampusIn the event this information is protected by the Federal Confidentiality of Alcohol and Drug Abuse Patient Records regulations: The Federal rules restrict any use of the information to criminally investigate or prosecute any alcohol or drug abuse patient.[facility] CampusIn the event this information is protected by the Federal Confidentiality of Alcohol and Drug Abuse Patient Records regulations: The Federal rules restrict any use of the information to criminally investigate or prosecute any alcohol or drug abuse patient.[facility] CampusIn the event this information is protected by the Federal Confidentiality of Alcohol and Drug Abuse Patient Records regulations: The Federal rules restrict any use of the information to criminally investigate or prosecute any alcohol or drug abuse patient.[facility] CampusIn the event this information is protected by the Federal Confidentiality of Alcohol and Drug Abuse Patient Records regulations: The Federal rules restrict any use of the information to criminally investigate or prosecute any alcohol or drug abuse patient.[facility] CampusIn the event this information is protected by the Federal Confidentiality of Alcohol and Drug Abuse Patient Records regulations: The Federal rules restrict any use of the information to criminally investigate or prosecute any alcohol or drug abuse patient.[facility] CampusIn the event this information is protected by the Federal Confidentiality of Alcohol and Drug Abuse Patient Records regulations: The Federal rules restrict any use of the information to criminally investigate or prosecute any alcohol or drug abuse patient.[facility] CampusIn the event this information is protected by the Federal Confidentiality of Alcohol and Drug Abuse Patient Records regulations: The Federal rules restrict any use of the information to criminally investigate or prosecute any alcohol or drug abuse patient.[facility] CampusIn the event this information is protected by the Federal Confidentiality of Alcohol and Drug Abuse Patient Records regulations: The Federal rules restrict any use of the information to criminally investigate or prosecute any alcohol or drug abuse patient.[facility] FOR RECORDS PERTAINING TO PATIENTS WHO ARE OR HAVE BEEN ENROLLED IN A CHEMICAL DEPENDENCY/SUBSTANCEABUSE PROGRAM, SOME INFORMATION MAY BE OMITTED. This clinical summary was aggregated from multiple sources. Caution should be exercised in using it in the provision of clinical care. This summary normalizes information from multiple sources, and as a consequence, information in this document may materially change the coding, format and clinical context of patient data. In addition, data may be omitted in some cases. CLINICAL DECISIONS SHOULD BE BASED ON THE PRIMARY CLINICAL RECORDS. [facility] [employer] [facility]. provides no warranty or guarantee of the accuracy or completeness of information in this document.
== END 2023-07-13 18:25 | disposition short-term general hospital (02) | DRG 871 ==
LOC: ER 07-12 06:14 → MS 07-12 08:30
PROVIDERS: Emergency Medicine; Admitting Provider Internal Medicine; Emergency Provider Emergency Medicine; PCP Family Medicine; Visit Provider Internal Medicine
DX: A41.9 Sepsis, unspecified organism (principal); D61.810 Antineoplastic chemotherapy induced pancytopenia; C92.00 Acute myeloblastic leukemia, not having achieved remission; N17.9 Acute kidney failure, unspecified; A09 Infectious gastroenteritis and colitis, unspecified; T45.1X5A Adverse effect of antineoplastic and immunosuppressive drugs, initial encounter; K21.9 Gastro-esophageal reflux disease without esophagitis; Z90.710 Acquired absence of both cervix and uterus; F32.A Depression, unspecified; Z88.5 Allergy status to narcotic agent; Z82.49 Family history of ischemic heart disease and other diseases of the circulatory system; Z79.899 Other long term (current) drug therapy
CPT/HCPCS: 36415; 36430; 36591; 36592; 51702; 70450; 71045; 74177; 80048; 80053; 80076; 81001; 81003; 82150; 83615; 83690; 84439; 84443; 84550; 85014; 85018; 85025; 85027; 86850; 86900; 86901; 87086; 93005; 94761; 96361; 96365; 96366; 96367; 96375; 96376; 96413; 97165; 97530; 99285; G0463; J1170; J2469; J9025; P9035; P9038; Q9967

== ENCOUNTER 2023-08-02 07:28 | Outpatient (RCR) | payer MEDICARE, SELFPAY ==
[2023-07-04] VITALS (7 sets, daily range): BP systolic 128–144; BP diastolic 65–83; PULSE 60–70; RESP 16–18; TEMP 36.1–36.6; O2SAT 95–97
[2023-07-04 11:09] LABS: Mean Corpuscular HGB Conc 34.8 g/dL (29.9-35.2); Mean Corpuscular Hemoglobin 30.8 pg (26.7-34.0); Mean Corpuscular Volume 88.4 fL (81.0-99.0); Red Blood Count 2.24 10^6/uL (4.20-5.40); Red Cell Distribution Width 15.2 % (11.0-15.0); White Blood Count 2.2 10^3/uL (4.0-11.0)
[2023-07-04 11:13] LABS: Hematocrit 19.8 % (36.0-48.0); Hemoglobin 6.9 g/dL (12.0-16.0); Platelet Count 10 10^3/uL (150-450)
[2023-07-04 11:19] LABS: Anion Gap 11.2; BUN Creatinine Ratio 21.6; Calcium 8.9 mg/dL (8.5-10.1); Carbon Dioxide 25.5 mmol/L (21.0-32.0); Chloride 105 mmol/L (98-107); Estimated GFR (African America >60 (>=60); Estimated GFR (Non-African Ame 54 (>=60); Glucose 130 mg/dL (74-106); Potassium 3.7 mmol/L (3.5-5.1); Sodium 138 mmol/L (136-145)
[2023-07-04] MEDS: DEXAMETHASONE SODIUM PHOSPHATE 8 MG in 0.9 % SODIUM CHLORIDE 100 ML 306 MG IV (11:31)
[2023-07-04] MEDS: 0.9 % SODIUM CHLORIDE 250 ML 10 ML IV (11:34)
[2023-07-04 11:37] LABS: Lymphocytes Absolute Manual 0.46 10^3/uL (1.20-3.80); Monocytes Absolute Manual 0.06 10^3/uL (0.30-0.80); Segmented Neut Absolute Manual 1.67 10^3/uL (1.4-6.5)
--- NOTE | 2023-07-04 11:40 | PC.NURSE ---
1100: Pt. to [facility] amb. accompanied by . Weight obtained, seated in recliner. PICC line to right upper arm intact and without s&s of infection or infiltration. Flushes easily with good blood return. Blood obtained for labs. 0.9%NS initiated at [facility]. Pt. tolerates without c/o. 1117: Dr. Macdonald notified of current Hgb and Plt. count. Instructs to infuse 1unit of PRBC and 1 unit Platelets. OK to proceed with chemo. Pt. aware. Platelets to be given tomorrow due to unavailable at this time. 1131: IV Decadron initiated at this time. Pt. given warm blanket and water.
[2023-07-04] MEDS: ACETAMINOPHEN 325 MG TABLET 650 MG PO (12:30)
[2023-07-04] MEDS: DIPHENHYDRAMINE HCL 25 MG CAPSULE PO (12:32)
--- NOTE | 2023-07-04 17:04 | PC.NURSE ---
1217: IV Vidaza initiated as ordered. Pt. without c/o. Warm blankets provided. Drinking water. 1230: Pt medicated with tylenol 650mg and Benadryl 25mg po pre-blood transfusion. 1247: Vidaza infusion completed with no signs or symptoms of adverse reaction. VSS. 1318: 1 unit PRBC initiated at this time. Instructed pt on s&s of transfusion reaction and to notify this RN if occurs. Pt relays understanding. remains at chairside. Pt. given lunch tray. 1333: VSS. Denies c/o. Warm blanket provided. 1418: No new changes. VSS. 1509: PRBC completed. No transfusion reaction observed. 1515: 1 Unit Platelets started at this time. No changes in overall status. 1530: VSS: Pt. without c/o or needs. 1615: Platelet infusion completed. Pt. denies chills, dyspnea or n/v. Picc line flushed with saline, chg cap applied. 1625: Pt d/c'd to home amb with
[2023-07-05 11:07] LABS: Hemoglobin 8.2 g/dL (12.0-16.0); Mean Corpuscular HGB Conc 35.2 g/dL (29.9-35.2); Mean Corpuscular Hemoglobin 31.2 pg (26.7-34.0); Mean Corpuscular Volume 88.6 fL (81.0-99.0); Red Blood Count 2.63 10^6/uL (4.20-5.40); Red Cell Distribution Width 15.2 % (11.0-15.0); White Blood Count 1.6 10^3/uL (4.0-11.0)
[2023-07-05] MEDS: DEXAMETHASONE SODIUM PHOSPHATE 8 MG in 0.9 % SODIUM CHLORIDE 100 ML 306 MG IV (11:09)
[2023-07-05 11:11] LABS: Hematocrit 23.3 % (36.0-48.0)
[2023-07-05 11:12] LABS: Platelet Count 16 10^3/uL (150-450)
[2023-07-05] MEDS: PALONOSETRON HCL 0.25 MG/5 ML VIAL IV (11:29)
[2023-07-05 11:39] LABS: Segmented Neut Absolute Manual 1.28 10^3/uL (1.4-6.5)
[2023-07-05 11:40] LABS: Lymphocytes Absolute Manual 0.25 10^3/uL (1.20-3.80); Monocytes Absolute Manual 0.06 10^3/uL (0.30-0.80)
[2023-07-05 11:41] LABS: Anisocytosis 1+
[2023-07-05] MEDS: 0.9 % SODIUM CHLORIDE 250 ML 30 ML IV (12:15)
[2023-07-05 12:34] VITALS: BP 140/68; PULSE 58; RESP 16; TEMP 36.6; O2SAT 91
[2023-07-05 13:40] VITALS: BP 137/68; PULSE 58; RESP 16; TEMP 36.5; O2SAT 92
--- NOTE | 2023-07-05 13:44 | PC.NURSE ---
1045: Pt to [facility] amb accompanied by . Weight obtained. Seated in recliner. VSS. Blood drawn from PICC line to right upper arm, without difficulty. Blood sent to lab. Picc line flushed with saline. 0.9% NS intitiated at [facility]. Using sterile technique, PICC line dressing changed. Insertion site pink in color with small amount dried blood noted on catheter. Site cleansed with CHG. Sterile CHG dressing applied after PICC secured with stat lock. Pt. tolerated with no c/o discomfort. 1109: IV Decadron initiated as ordered and pt. medicated with Aloxi as ordered. Pt. given warm blanket and water. 1146: Vidaza infusion initiated at this time. Will continue to monitor closely. Pt. given lunch tray. 1216: Vidaza completed without pt. c/o. Denies n/v, dyspnea, chills or other adverse effects.VSS. PICC line to F. Pt. up to bathroom. 1234: Pt. without changes denies needs or c/o. D/c'd amb. to home with .
[2023-07-06 11:01] LABS: Hemoglobin 8.3 g/dL (12.0-16.0); Mean Corpuscular HGB Conc 35.8 g/dL (29.9-35.2); Mean Corpuscular Hemoglobin 31.7 pg (26.7-34.0); Mean Corpuscular Volume 88.5 fL (81.0-99.0); Red Blood Count 2.62 10^6/uL (4.20-5.40)
[2023-07-06] MEDS: DEXAMETHASONE SODIUM PHOSPHATE 8 MG in 0.9 % SODIUM CHLORIDE 100 ML 306 MG IV (11:06)
[2023-07-06 11:13] LABS: Hematocrit 23.2 % (36.0-48.0); Platelet Count 18 10^3/uL (150-450); White Blood Count 1.1 10^3/uL (4.0-11.0)
[2023-07-06 11:18] LABS: Lymphocytes Absolute Manual 0.38 10^3/uL (1.20-3.80); Monocytes Absolute Manual 0.05 10^3/uL (0.30-0.80)
[2023-07-06 11:19] LABS: Anisocytosis 1+; Band Neutrophils Absolute 0.1 10^3/uL (0.0-0.3); Rouleaux SEEN
[2023-07-06 11:36] VITALS: BP 146/69; PULSE 67; RESP 16; TEMP 36.2; O2SAT 94
--- NOTE | 2023-07-06 11:38 | PC.NURSE ---
1045: Pt. to [facility] amb. accompanied by . Weight obtained. Seated in recliner. VSS. PICC line to right upper arm intact with CHG dressing in place. Flushes easily with good blood return. Slightly pink at insertion site. No drainage observed. Pt. denies pain to site. Blood drawn for ordered labs. Pt. given warm blankets and water.
[2023-07-06] MEDS: 0.9 % SODIUM CHLORIDE 250 ML 30 ML IV (11:49)
--- NOTE | 2023-07-06 11:52 | PC.NURSE ---
1106: IV Decadron initiated at this time. Pt. without c/o. Relays fatigue.
--- NOTE | 2023-07-06 11:53 | PC.NURSE ---
1126: IV Decadron complete. Pt. without change. 1144: IV Vidaza started after double check with MAMTA Becerra.
[2023-07-06 12:31] VITALS: BP 134/68; PULSE 66; RESP 16; TEMP 36.6; O2SAT 94
--- NOTE | 2023-07-06 12:33 | PC.NURSE ---
1220: Vidaza infusion completed at this time. Pt without s&s of adverse reaction. VSS. Picc line flushed with saline. 1230: Pt d/c'd amb to home with . Instructed to call or come to ED if delayed reactions occur. Both relay understanding.
[2023-07-09 11:13] LABS: Hemoglobin 8.3 g/dL (12.0-16.0); Lymphocytes Absolute Auto 0.5 10^3/uL (1.2-3.8); Lymphocytes Percent Auto 59.3 % (20.5-60.0); Mean Corpuscular HGB Conc 34.6 g/dL (29.9-35.2); Mean Corpuscular Hemoglobin 30.7 pg (26.7-34.0); Mean Corpuscular Volume 88.9 fL (81.0-99.0); Monocytes Absolute Auto 0.1 10^3/uL (0.3-0.8); Monocytes Percent Auto 12.3 % (1.7-12.0); Neutrophils Absolute Auto 0.2 10^3/uL (1.4-6.5); Neutrophils Percent Auto 28.4 % (43.0-75.0); Red Cell Distribution Width 14.7 % (11.0-15.0)
[2023-07-09 11:16] LABS: Platelet Count 9 10^3/uL (150-450); White Blood Count 0.8 10^3/uL (4.0-11.0)
[2023-07-09 11:29] LABS: Lactate Dehydrogenase 152 U/L (81-234); Uric Acid 2.8 mg/dL (2.6-6.0)
[2023-07-09] MEDS: DEXAMETHASONE SODIUM PHOSPHATE 8 MG in 0.9 % SODIUM CHLORIDE 100 ML 309 MG IV (11:55)
[2023-07-09] MEDS: PALONOSETRON HCL 0.25 MG/5 ML VIAL IV (11:55)
[2023-07-09] MEDS: 0.9 % SODIUM CHLORIDE 250 ML 50 ML IV (12:25)
[2023-07-09 13:00] VITALS: BP 120/74; PULSE 76; RESP 16; TEMP 36.4; O2SAT 92
[2023-07-09 13:23] LABS: Thyroid Stimulating Hormone 2.419 uIU/mL (0.358-3.740)
[2023-07-09 13:36] LABS: Free T4 0.85 ng/dL (0.76-1.46)
[2023-07-09 14:29] VITALS: BP 145/88; PULSE 74; RESP 16; TEMP 36.4; O2SAT 97
--- NOTE | 2023-07-09 14:34 | PC.NURSE ---
1045: Pt. to [facility] amb. accompanied by . Weight obtained, seated in recliner. Pt. relays feeling extremely fatigued and dizzy over the weekend. VSS. Denies c/o pain, dyspnea, neuropathy, blurred vision, or nausea. Relays eating and drinking without difficulty and no problems with urinating or bowel movements. PICC line to right upper arm intact with small amount red blood noted around insertion site. Denies pain with flushing and able to aspirate blood easily. Blood drawn for ordered labs. 1125: Dr. Macdonald notified of labs and current condition. New orders obtained. Instructs this RN to proceed with chemo as ordered. Pt. aware.
--- NOTE | 2023-07-09 14:42 | PC.NURSE ---
1155: Pre-meds given at this time. Pt. orders lunch. a chair side. 1214: IV Vidaza initiated at this time. Pt without needs or c/o. 1245: Vidaza infused. Pt. without adverse reaction at this time. PICC line flushed with saline. Reminded pt. to seek medical help if fever develops, pain, increased dizziness or dyspnea. Pt. relays understanding. 1303: Pt. d/c'd via w/c and taken to radiology for CT scan of brain as ordered.
[2023-07-10 11:01] LABS: Hematocrit 24.6 % (36.0-48.0); Hemoglobin 8.7 g/dL (12.0-16.0); Mean Corpuscular HGB Conc 35.4 g/dL (29.9-35.2); Mean Corpuscular Hemoglobin 31.1 pg (26.7-34.0); Mean Corpuscular Volume 87.9 fL (81.0-99.0); Red Cell Distribution Width 14.7 % (11.0-15.0)
[2023-07-10 11:06] LABS: Platelet Count 10 10^3/uL (150-450); White Blood Count 1.2 10^3/uL (4.0-11.0)
[2023-07-10 11:45] LABS: Lymphocytes Absolute Manual 0.36 10^3/uL (1.20-3.80); Monocytes Absolute Manual 0.02 10^3/uL (0.30-0.80)
[2023-07-10 13:30] LABS: Bilirubin Urine NEGATIVE (NEGATIVE); Blood Urine NEGATIVE (NEGATIVE); Clarity Urine CLEAR (CLEAR); Color Urine YELLOW (YELLOW); Glucose Urine UA NEGATIVE (NEGATIVE); Ketones Urine NEGATIVE (NEGATIVE); Leukocyte Esterase Urine NEGATIVE (NEGATIVE); Nitrite Urine NEGATIVE (NEGATIVE); Protein Urine TRACE mg/dL (NEG/TRACE); Specific Gravity Urine 1.025 (1.005-1.025); Urobilinogen Urine 0.2 EU/dL (0.2-1.0); pH Urine 6.5 (5.0-9.0)
[2023-07-10 14:08] VITALS: BP 141/84; PULSE 80; RESP 20; TEMP 36.5; O2SAT 92
--- NOTE | 2023-07-10 14:17 | PC.NURSE ---
1150: Pt. to [facility] amb. accompanied by after visit completed with Dr. Macdonald. Seated in recliner. PICC line to right upper arm intact. Small amount dried blood noted around insertion site. Pt. denies pain. Flushes easily with good blood return. IV NS infusing at KVO. 1212: IV dexamethasone d/c'd this day per Dr. Macdonald. IV Vidaza initiated at this time as ordered. Pt. given water and warm blanket. Denies needs. 1242:Vidaza completed at this time. Pt. without s&s of adverse reaction. VSS. PICC line flushed. 1255: Pt. d/c'd amb. to home with .
[2023-07-19 12:05] VITALS: BP 123/74; PULSE 73; RESP 18; TEMP 36.7; O2SAT 95
[2023-07-19 12:09] LABS: Hematocrit 25.5 % (36.0-48.0); Hemoglobin 8.4 g/dL (12.0-16.0); Mean Corpuscular HGB Conc 32.9 g/dL (29.9-35.2); Mean Corpuscular Hemoglobin 29.8 pg (26.7-34.0); Mean Corpuscular Volume 90.4 fL (81.0-99.0); Mean Platelet Volume 13.7 fL (9.5-13.5); Red Blood Count 2.82 10^6/uL (4.20-5.40); Red Cell Distribution Width 15.7 % (11.0-15.0)
[2023-07-19 12:13] LABS: Anion Gap 14.1; BUN Creatinine Ratio 7.5; Carbon Dioxide 25.7 mmol/L (21.0-32.0); Chloride 105 mmol/L (98-107); Estimated GFR (African America >60 (>=60); Estimated GFR (Non-African Ame >60 (>=60); Glucose 103 mg/dL (74-106); Platelet Count 28 10^3/uL (150-450); Potassium 3.8 mmol/L (3.5-5.1); Sodium 141 mmol/L (136-145); White Blood Count 0.4 10^3/uL (4.0-11.0)
[2023-07-19 12:32] LABS: Monocytes Absolute Manual 0.02 10^3/uL (0.30-0.80); Segmented Neut Absolute Manual 0.07 10^3/uL (1.4-6.5)
[2023-07-19 12:34] LABS: Anisocytosis 1+; Hypochromasia 2+
--- NOTE | 2023-07-19 12:44 | PC.NURSE ---
1130 Arrival ambulatory to chair 1. picc intacct rt arm, labs drawn from picc, sent to lab. both ports of picc have an excellent blood return, both flushed with 20 ml of normal saline. Picc site dressing intact. patient has no complaints complaints.Released ambulatory. 1230 Called patient to inform her that she did not need to come for transfusion tomorrow. She should return next Sunday for lab draw.
[2023-07-23] MEDS: ALTEPLASE 2 MG VIAL IVP (10:43)
[2023-07-23 10:53] VITALS: BP 142/80; PULSE 72; RESP 16; TEMP 36.6; O2SAT 97
--- NOTE | 2023-07-23 10:55 | PC.NURSE ---
1020: Pt. to [facility] amb. accompanied by for bi-weekly blood draw. Seated in recliner. VSS. PICC line in place to right upper arm and site without s&s of redness, edema or infection. Attempt made to flush purple PICC line port without success. Unable to aspirate blood from same port. Able to flush red port easily, unable to aspirate blood after several attempts and several flushes with Normal saline. Pt denies pain with flushing. 1024: Dr. Macdonald messaged regarding PICC line, gives order to use Cath juan pablo. Order placed per this RN. 1043: Unable to instill Cath Juan Pablo into purple port. Cath Juan Pablo instilled into red port. Informed pt. med must dwell x's 30min. Pt. given blanket and water.
[2023-07-23 11:51] LABS: Hemoglobin 8.7 g/dL (12.0-16.0); Mean Corpuscular HGB Conc 33.5 g/dL (29.9-35.2); Mean Corpuscular Hemoglobin 30.6 pg (26.7-34.0); Mean Corpuscular Volume 91.5 fL (81.0-99.0); Mean Platelet Volume 9.9 fL (9.5-13.5); Platelet Count 46 10^3/uL (150-450); Red Blood Count 2.84 10^6/uL (4.20-5.40); Red Cell Distribution Width 15.9 % (11.0-15.0)
[2023-07-23 12:00] LABS: Alanine Aminotransferase 66 U/L (14-59); Albumin Globulin Ratio 0.8; Albumin Level 2.5 g/dL (3.4-5.0); Alkaline Phosphatase 68 U/L (46-116); Anion Gap 12.2; Aspartate Amino Transferase 52 U/L (15-37); BUN Creatinine Ratio 8.5; Bilirubin Total 0.3 mg/dL (0.2-1.0); Calcium 8.5 mg/dL (8.5-10.1); Carbon Dioxide 25.3 mmol/L (21.0-32.0); Chloride 106 mmol/L (98-107); Estimated GFR (African America >60 (>=60); Estimated GFR (Non-African Ame >60 (>=60); Globulin 3.2 g/dL; Glucose 96 mg/dL (74-106); Phosphorus 3.2 mg/dL (2.6-4.7); Potassium 3.5 mmol/L (3.5-5.1); Sodium 140 mmol/L (136-145); Total Protein 5.7 g/dL (6.4-8.2)
--- NOTE | 2023-07-23 12:19 | PC.NURSE ---
1115: Attempt made to aspirate blood from red port. Able to obtain 5mL only. Port flushed with saline, unable to obtain any blood return with aspiration. Purple port remains completely occluded. Unable to flush or aspirate. analytical tech called for peripheral blood draw at this time. 1145: Discussed with patient potential need for new PICC line or port placement as indicated. Pt. jen understanding. Pt. in tomorrow to see Dr. Macdonald. Will discuss options with M.Alexus. at scheduled appt. Pt. jen understanding. Departs unit with to home. Tolerated all with no c/o.
[2023-07-23 12:21] LABS: White Blood Count 0.5 10^3/uL (4.0-11.0)
[2023-07-23 12:31] LABS: Segmented Neut Absolute Manual 0.03 10^3/uL (1.4-6.5)
[2023-07-23 12:32] LABS: Lymphocytes Absolute Manual 0.39 10^3/uL (1.20-3.80); Metamyelocytes Absolute Manual 0.01; Monocytes Absolute Manual 0.06 10^3/uL (0.30-0.80); Myelocytes Absolute Manual 0
[2023-07-25 13:15] LABS: Hematocrit 25.9 % (36.0-48.0); Hemoglobin 8.7 g/dL (12.0-16.0); Lymphocytes Absolute Auto 0.5 10^3/uL (1.2-3.8); Lymphocytes Percent Auto 71.9 % (20.5-60.0); Mean Corpuscular HGB Conc 33.6 g/dL (29.9-35.2); Mean Corpuscular Hemoglobin 30.9 pg (26.7-34.0); Mean Corpuscular Volume 91.8 fL (81.0-99.0); Mean Platelet Volume 10.7 fL (9.5-13.5); Monocytes Absolute Auto 0.1 10^3/uL (0.3-0.8); Monocytes Percent Auto 12.5 % (1.7-12.0); Neutrophils Absolute Auto 0.1 10^3/uL (1.4-6.5); Neutrophils Percent Auto 15.6 % (43.0-75.0); Platelet Count 69 10^3/uL (150-450); Red Blood Count 2.82 10^6/uL (4.20-5.40); Red Cell Distribution Width 16.8 % (11.0-15.0)
[2023-07-25 13:21] LABS: White Blood Count 0.6 10^3/uL (4.0-11.0)
[2023-07-25 13:30] LABS: Anion Gap 11.3; Carbon Dioxide 25.5 mmol/L (21.0-32.0); Chloride 106 mmol/L (98-107); Potassium 3.8 mmol/L (3.5-5.1); Sodium 139 mmol/L (136-145)
[2023-07-25 13:31] LABS: Calcium 8.6 mg/dL (8.5-10.1); Estimated GFR (African America >60 (>=60); Estimated GFR (Non-African Ame >60 (>=60); Glucose 105 mg/dL (74-106)
--- NOTE | 2023-07-25 14:06 | PC.NURSE ---
1250: Pt. to [facility] for blood draw and possible new PICC line placement. Pt. changes into gown and to semi-fowlers position on bed. Yobani Miguel RN from [employer] to bedside. Pt. with existing PICC line in place to RUE. Attempt made per. MAMTA Lerner to flush both ports with saline. Able to flush and aspirate both ports without difficulty. Cathflo instilled into line 2 days ago per this RN. MAMTA Lerner states it may have cleared clots or occlusions that prevented ability to flush or aspirate blood from line. New PICC line not needed at this time. This RN aspirates blood for ordered labs. Both ports flushed with Saline. Old dressing removed from PICC line to right upper arm. Using sterile technique, site cleansed with CHG. Slight redness at insertion site. No drainage or edema observed. Stat lock and CHG opsite dressing applied. Pt. tolerates all without c/o pain. 1330: Labs resulted and reported to patient and patients . Will not need blood or platelet transfusion this week per protocol. Both pt. and express understanding and d/c'd home amb.
--- NOTE | 2023-07-30 10:01 | PC.NURSE ---
0943: Pt. to [facility] amb. for bi-weekly lab draw. Picc line intact to right upper arm. Insertion site slightly pink. No edema or drainage observed. Flushes easily and able to aspirate blood without difficulty. Labs obtained. Picc line flushed with NSS. New caps applied to both ports. Pt. tolerated without c/o. D/c'd to home with .
[2023-07-30 10:07] LABS: Hematocrit 27.3 % (36.0-48.0); Hemoglobin 8.9 g/dL (12.0-16.0); Mean Corpuscular HGB Conc 32.6 g/dL (29.9-35.2); Mean Corpuscular Hemoglobin 30.4 pg (26.7-34.0); Mean Corpuscular Volume 93.2 fL (81.0-99.0); Mean Platelet Volume 11.1 fL (9.5-13.5); Platelet Count 78 10^3/uL (150-450); Red Blood Count 2.93 10^6/uL (4.20-5.40); Red Cell Distribution Width 18.3 % (11.0-15.0)
[2023-07-30 10:15] LABS: White Blood Count 0.7 10^3/uL (4.0-11.0)
[2023-07-30 10:22] LABS: Alanine Aminotransferase 52 U/L (14-59); Albumin Level 2.8 g/dL (3.4-5.0); Alkaline Phosphatase 79 U/L (46-116); Anion Gap 10.8; Aspartate Amino Transferase 35 U/L (15-37); Bilirubin Total 0.3 mg/dL (0.2-1.0); Calcium 8.2 mg/dL (8.5-10.1); Carbon Dioxide 28.4 mmol/L (21.0-32.0); Chloride 107 mmol/L (98-107); Estimated GFR (African America >60 (>=60); Estimated GFR (Non-African Ame >60 (>=60); Globulin 2.8 g/dL; Glucose 122 mg/dL (74-106); Phosphorus 3.3 mg/dL (2.6-4.7); Potassium 3.2 mmol/L (3.5-5.1); Sodium 143 mmol/L (136-145); Total Protein 5.6 g/dL (6.4-8.2)
[2023-07-30 11:12] LABS: Lymphocytes Absolute Manual 0.42 10^3/uL (1.20-3.80); Metamyelocytes Absolute Manual 0.01; Monocytes Absolute Manual 0.09 10^3/uL (0.30-0.80); Myelocytes Absolute Manual 0.01; Segmented Neut Absolute Manual 0.15 10^3/uL (1.4-6.5)
[2023-08-02 09:49] LABS: Hematocrit 27.3 % (36.0-48.0); Hemoglobin 8.9 g/dL (12.0-16.0); Immature Granulocytes Abs Auto 0.01 10^3/uL (0.00-0.03); Immature Granulocytes Pct Auto 1.1 % (0.0-0.5); Lymphocytes Absolute Auto 0.5 10^3/uL (1.2-3.8); Lymphocytes Percent Auto 56.7 % (20.5-60.0); Mean Corpuscular HGB Conc 32.6 g/dL (29.9-35.2); Mean Corpuscular Volume 95.1 fL (81.0-99.0); Mean Platelet Volume 9.5 fL (9.5-13.5); Monocytes Absolute Auto 0.2 10^3/uL (0.3-0.8); Monocytes Percent Auto 23.3 % (1.7-12.0); Neutrophils Absolute Auto 0.2 10^3/uL (1.4-6.5); Neutrophils Percent Auto 18.9 % (43.0-75.0); Platelet Count 57 10^3/uL (150-450); Red Blood Count 2.87 10^6/uL (4.20-5.40); Red Cell Distribution Width 19.5 % (11.0-15.0)
[2023-08-02 09:59] LABS: Anion Gap 12.6; BUN Creatinine Ratio 10.2; Calcium 8.3 mg/dL (8.5-10.1); Carbon Dioxide 27.6 mmol/L (21.0-32.0); Chloride 106 mmol/L (98-107); Estimated GFR (African America >60 (>=60); Estimated GFR (Non-African Ame >60 (>=60); Glucose 125 mg/dL (74-106); Potassium 3.2 mmol/L (3.5-5.1); Sodium 143 mmol/L (136-145); White Blood Count 0.9 10^3/uL (4.0-11.0)
--- NOTE | 2023-08-02 10:12 | PC.NURSE ---
1110 repositioned from abdomen to rt side
--- NOTE | 2023-08-02 10:26 | PC.NURSE ---
0935: Pt. to [facility] amb. for blood draw and PICC line dressing change. Accompanied by . Seated in recliner. Picc line in place to right upper arm. Slightly red/pink at insertion site. Pt. denies c/o pain or irritation. Able to flush and aspirate blood easily from picc. Blood obtained for labs. Both lumens flushed with saline. Using sterile technique, Picc line dressing changed. Pt. tolerated without c/o. 0950: Pt. d/c'd amb. to home with .
--- NOTE | 2023-08-02 10:32 | PC.NURSE ---
1025 Repositioned, tolerating procedure well.
== END 2023-08-02 23:59 | disposition home or self-care (01) ==
LOC: INF 07:28
PROVIDERS: PCP Family Medicine; Visit Provider Internal Medicine Hematology & Oncology
DX: Z51.11 Encounter for antineoplastic chemotherapy (principal); C92.00 Acute myeloblastic leukemia, not having achieved remission; C92.92 Myeloid leukemia, unspecified in relapse; D61.818 Other pancytopenia; R11.2 Nausea with vomiting, unspecified; C92.02 Acute myeloblastic leukemia, in relapse; Z90.710 Acquired absence of both cervix and uterus; Z85.3 Personal history of malignant neoplasm of breast
CPT/HCPCS: 36415; 36430; 36591; 36592; 36593; 70450; 80048; 80053; 81003; 83615; 83735; 84100; 84439; 84443; 84550; 85007; 85025; 85027; 86850; 86900; 86901; 87086; 96367; 96368; 96372; 96375; 96413; G0463; J2469; J2997; J9025; P9035; P9038

== ENCOUNTER 2023-08-30 14:00 | Outpatient (RCR) | payer MEDICARE, SELFPAY ==
[2023-08-06 11:04] LABS: Hematocrit 28.1 % (36.0-48.0); Hemoglobin 9.3 g/dL (12.0-16.0); Mean Corpuscular HGB Conc 33.1 g/dL (29.9-35.2); Mean Corpuscular Hemoglobin 31.5 pg (26.7-34.0); Mean Corpuscular Volume 95.3 fL (81.0-99.0); Mean Platelet Volume 8.5 fL (9.5-13.5); Platelet Count 42 10^3/uL (150-450); Red Blood Count 2.95 10^6/uL (4.20-5.40); Red Cell Distribution Width 20.9 % (11.0-15.0)
[2023-08-06 11:09] LABS: White Blood Count 1.2 10^3/uL (4.0-11.0)
[2023-08-06 11:18] LABS: Alanine Aminotransferase 47 U/L (14-59); Alkaline Phosphatase 86 U/L (46-116); Anion Gap 12.4; Aspartate Amino Transferase 32 U/L (15-37); Bilirubin Total 0.4 mg/dL (0.2-1.0); Calcium 8.5 mg/dL (8.5-10.1); Carbon Dioxide 27.1 mmol/L (21.0-32.0); Chloride 106 mmol/L (98-107); Estimated GFR (African America >60 (>=60); Estimated GFR (Non-African Ame >60 (>=60); Globulin 3.1 g/dL; Glucose 113 mg/dL (74-106); Lactate Dehydrogenase 219 U/L (81-234); Potassium 3.5 mmol/L (3.5-5.1); Sodium 142 mmol/L (136-145); Total Protein 6.1 g/dL (6.4-8.2); Uric Acid 3.5 mg/dL (2.6-6.0)
[2023-08-06 11:31] LABS: Anisocytosis 3+; Lymphocytes Absolute Manual 0.79 10^3/uL (1.20-3.80); Monocytes Absolute Manual 0.19 10^3/uL (0.30-0.80); Segmented Neut Absolute Manual 0.21 10^3/uL (1.4-6.5)
[2023-08-06] MEDS: PALONOSETRON HCL 0.25 MG/5 ML VIAL IV (11:57)
[2023-08-06 13:44] VITALS: BP 148/85; PULSE 77; RESP 16; TEMP 36.6; O2SAT 95
--- NOTE | 2023-08-06 13:48 | PC.NURSE ---
1048: Pt. to [facility] amb. accompanied by . Weight obtained. Seated in recliner. VSS. PICC line in place to right upper arm. [place] in color around insertion site. Pt. denies c/o discomfort. Flushes easily with good blood return. Labs obtained. Pt. given blanket, pillow and water. Denies further needs or c/o. 1138: Labs reviewed, OK to proceed with chemo treatment. 1157: Medicated with Aloxi IVP slow as ordered. 1214: IV Vidaza initiated at this time after double checked with Carola Becerra. 1225: Pt. denies c/o. Offered snack, pt. declines. 1250: IV Vidaza completed at this time. Pt. without s&s of adverse reaction. PICC line flushed with saline. End caps changed. Reminded pt. to watch for delayed adverse reactions. Pt. relays understanding. 1300: Pt. d/c'd amb. to home with .
[2023-08-07] MEDS: 0.9 % SODIUM CHLORIDE 250 ML 20 ML IV (10:15)
[2023-08-07 11:20] VITALS: BP 133/87; PULSE 73; RESP 18; TEMP 36.2; O2SAT 95
--- NOTE | 2023-08-07 11:21 | PC.NURSE ---
1002: Pt. to [facility] after appointment with Dr. Macdonald. Seated in recliner. VSS. Picc line intact to right upper arm. [place] around insertion site. Denies c/o pain or irritation at site. Flushes easily and able to aspirate blood easily. IV Normal saline at kvo. 1015: IV Vidaza initiated at this time. Pt. given warm blanket and pillow. Drinking water. 1025: Tolerating infusion without c/o. Denies need. 1050: IV Vidaza completed at this time. Pt. without s&s of adverse reaction. Reminded to watch for temp. or delayed reaction later in day. Pt. relays understanding. 1055: Pt. d/c'd amb. to home with .
[2023-08-08 11:41] VITALS: BP 146/90; PULSE 74; RESP 18; TEMP 36.5; O2SAT 97
--- NOTE | 2023-08-08 11:48 | PC.NURSE ---
1120 Arrival ambulatory to chair 1. alert oriented, no complaints offered. Patient and state they were contacted regarding bone marrow transplant, currently planning for september. PICC intact rt upper arm. site sl reddened around insertion site, patient and say this is its normal. denies any pain, no induration noted. both ports flushed withoutdifficulty. NS initated at kvo.
[2023-08-08] MEDS: 0.9 % SODIUM CHLORIDE 250 ML 20 ML IV (11:51)
--- NOTE | 2023-08-08 12:00 | PC.NURSE ---
1200 chemo infusion initiated. watches tablet,no complaints offered.
--- NOTE | 2023-08-08 12:40 | PC.NURSE ---
1235 infusion completed, PICC flushed with NSS, cap change, tolerated well.Released ambulatory
[2023-08-09] MEDS: PALONOSETRON HCL 0.25 MG/5 ML VIAL IV (11:04)
[2023-08-09] MEDS: 0.9 % SODIUM CHLORIDE 250 ML 20 ML IV (11:05)
[2023-08-09 11:12] LABS: Hematocrit 26.5 % (36.0-48.0); Hemoglobin 8.7 g/dL (12.0-16.0); Mean Corpuscular HGB Conc 32.8 g/dL (29.9-35.2); Mean Corpuscular Volume 97.4 fL (81.0-99.0); Mean Platelet Volume 10.2 fL (9.5-13.5); Platelet Count 36 10^3/uL (150-450); Red Blood Count 2.72 10^6/uL (4.20-5.40); Red Cell Distribution Width 21.4 % (11.0-15.0)
[2023-08-09 11:21] LABS: Anion Gap 14.5; Calcium 8.6 mg/dL (8.5-10.1); Carbon Dioxide 26.9 mmol/L (21.0-32.0); Chloride 104 mmol/L (98-107); Estimated GFR (African America >60 (>=60); Estimated GFR (Non-African Ame 55 (>=60); Glucose 135 mg/dL (74-106); Potassium 3.4 mmol/L (3.5-5.1); Sodium 142 mmol/L (136-145)
[2023-08-09 11:34] LABS: Segmented Neut Absolute Manual 0.36 10^3/uL (1.4-6.5)
[2023-08-09 11:35] LABS: Lymphocytes Absolute Manual 0.56 10^3/uL (1.20-3.80); Monocytes Absolute Manual 0.08 10^3/uL (0.30-0.80)
[2023-08-09 11:37] VITALS: BP 135/76; PULSE 82; RESP 16; TEMP 36.8; O2SAT 93
--- NOTE | 2023-08-09 11:41 | PC.NURSE ---
1050: Pt. to [facility] amb. accompanied by . Weight obtained. Seated in recliner. VSS. PICC line to right upper arm intact. Blood drawn easily for ordered labs. Both ports flush easily and able to aspirate blood from both ports. Using sterile technique, PICC line dressing changed. Site cleansed with CHG prep and sterile CHG tegaderm applied over insertion site. Slightly red around site. No edema, drainage or c/o pain noted. Pt. tolerates without c/o. 1104: Medicated with Aloxi 0.25mg ivp slow as ordered pre-chemo. 1124: IV Vidaza initiated at this time. Pt. given water and warm blanket. Denies further needs or c/o.
--- NOTE | 2023-08-09 12:12 | PC.NURSE ---
1210: infusion completed at this time. Pt. without s&s of adverse reaction. Reminded pt. to watch for delayed reaction and temp. Pt. relays understanding. Picc line flushed with saline. D/c'd amb. to home with .
[2023-08-10] MEDS: 0.9 % SODIUM CHLORIDE 250 ML 20 ML IV (11:00)
[2023-08-10 11:02] VITALS: BP 142/88; PULSE 70; RESP 18; TEMP 36.4; O2SAT 93
[2023-08-13] MEDS: 0.9 % SODIUM CHLORIDE 250 ML 30 ML IV (11:19)
[2023-08-13] MEDS: PALONOSETRON HCL 0.25 MG/5 ML VIAL IV (11:19)
[2023-08-13 11:23] LABS: Hemoglobin 8.7 g/dL (12.0-16.0); Mean Corpuscular HGB Conc 33.5 g/dL (29.9-35.2); Mean Corpuscular Hemoglobin 32.1 pg (26.7-34.0); Mean Corpuscular Volume 95.9 fL (81.0-99.0); Mean Platelet Volume 10.9 fL (9.5-13.5); Platelet Count 31 10^3/uL (150-450); Red Blood Count 2.71 10^6/uL (4.20-5.40); Red Cell Distribution Width 20.6 % (11.0-15.0)
[2023-08-13 11:44] LABS: BUN Creatinine Ratio 10.6; Calcium 8.9 mg/dL (8.5-10.1); Carbon Dioxide 26.5 mmol/L (21.0-32.0); Chloride 107 mmol/L (98-107); Estimated GFR (African America >60 (>=60); Estimated GFR (Non-African Ame >60 (>=60); Glucose 113 mg/dL (74-106); Potassium 3.5 mmol/L (3.5-5.1); Sodium 141 mmol/L (136-145)
[2023-08-13 11:55] LABS: Band Neutrophils Absolute 0.1 10^3/uL (0.0-0.3); Lymphocytes Absolute Manual 0.53 10^3/uL (1.20-3.80); Monocytes Absolute Manual 0.06 10^3/uL (0.30-0.80); Segmented Neut Absolute Manual 0.65 10^3/uL (1.4-6.5); White Blood Count 1.3 10^3/uL (4.0-11.0)
[2023-08-13 12:18] VITALS: BP 130/78; PULSE 75; RESP 16; TEMP 36.6; O2SAT 94
--- NOTE | 2023-08-13 12:24 | PC.NURSE ---
1050: Pt. to [facility] amb. accompanied by . Weight obtained. Seated in recliner. PICC line in place to right upper arm. Site without redness or edema. Slightly pink around insertion site. Pt. denies c/o. Both ports flush easily. Able to aspirate blood easily from PICC. Labs obtained as ordered. VSS. 1119: Medicated with Aloxi IVP as ordered. Given warm blanket and water. 1143: IV Vidaza initiated at this time. Denies c/o or needs. 1153: Pt. without c/o or needs. 1225: IV Vidaza completed without s&s of adverse effects. VSS. Port flushed with normal saline. 1238: Pt.d/c'd amb to home with .
[2023-08-13 12:37] VITALS: BP 145/82; PULSE 73; RESP 16; TEMP 36.6; O2SAT 96
[2023-08-14 10:57] VITALS: BP 138/80; PULSE 74; RESP 18; TEMP 36.7; O2SAT 96
--- NOTE | 2023-08-14 11:47 | PC.NURSE ---
tolerating infusion without difficulty.
--- NOTE | 2023-08-14 12:12 | PC.NURSE ---
1200 infusion completed. PICC flushed with NSS both ports. Released ambulatory
[2023-08-16 11:38] LABS: Hematocrit 25.5 % (36.0-48.0); Hemoglobin 8.4 g/dL (12.0-16.0); Mean Corpuscular HGB Conc 32.9 g/dL (29.9-35.2); Mean Corpuscular Hemoglobin 31.7 pg (26.7-34.0); Mean Corpuscular Volume 96.2 fL (81.0-99.0); Mean Platelet Volume 10.5 fL (9.5-13.5); Red Blood Count 2.65 10^6/uL (4.20-5.40); Red Cell Distribution Width 21.2 % (11.0-15.0)
[2023-08-16 11:44] LABS: Anion Gap 9.7; BUN Creatinine Ratio 10.5; Calcium 8.7 mg/dL (8.5-10.1); Carbon Dioxide 28.6 mmol/L (21.0-32.0); Chloride 104 mmol/L (98-107); Estimated GFR (African America >60 (>=60); Estimated GFR (Non-African Ame 58 (>=60); Glucose 127 mg/dL (74-106); Lactate Dehydrogenase 224 U/L (81-234); Potassium 3.3 mmol/L (3.5-5.1); Sodium 139 mmol/L (136-145); Uric Acid 3.6 mg/dL (2.6-6.0)
[2023-08-16 12:05] LABS: Platelet Count 28 10^3/uL (150-450)
[2023-08-16 12:09] VITALS: BP 132/86; PULSE 79; RESP 18; TEMP 36.8; O2SAT 96
--- NOTE | 2023-08-16 12:10 | PC.NURSE ---
1100 arrival ambulatory. Picc rt upper arm accessedusing sterile techinique, excellent blood return from both ports, 10 ml waste, labs drawn and sent to laboratory. both ports flushed with 20 ml of NS. both port caps changed, chlorhexadine capsapplipicc dressing changed using sterile technique, sl reddened around insertion site, only under chlorhexadine patch. Released ambulatory
[2023-08-16 13:00] LABS: Monocytes Absolute Manual 0.08 10^3/uL (0.30-0.80); Segmented Neut Absolute Manual 0.52 10^3/uL (1.4-6.5)
[2023-08-16 13:01] LABS: Anisocytosis 2+; Hypochromasia 2+; Ovalocytes 1+
[2023-08-20 10:20] LABS: Mean Corpuscular HGB Conc 33.8 g/dL (29.9-35.2); Mean Corpuscular Hemoglobin 32.5 pg (26.7-34.0); Mean Corpuscular Volume 96.3 fL (81.0-99.0); Mean Platelet Volume 10.2 fL (9.5-13.5); Red Blood Count 2.46 10^6/uL (4.20-5.40); Red Cell Distribution Width 20.9 % (11.0-15.0)
[2023-08-20 10:31] LABS: Hematocrit 23.7 % (36.0-48.0)
[2023-08-20 10:32] LABS: Platelet Count 20 10^3/uL (150-450)
[2023-08-20 10:38] LABS: Alanine Aminotransferase 27 U/L (14-59); Alkaline Phosphatase 75 U/L (46-116); Anion Gap 13.1; Aspartate Amino Transferase 23 U/L (15-37); BUN Creatinine Ratio 8.2; Bilirubin Total 0.5 mg/dL (0.2-1.0); Calcium 8.7 mg/dL (8.5-10.1); Carbon Dioxide 26.5 mmol/L (21.0-32.0); Chloride 106 mmol/L (98-107); Estimated GFR (African America >60 (>=60); Estimated GFR (Non-African Ame >60 (>=60); Glucose 109 mg/dL (74-106); Phosphorus 3.8 mg/dL (2.6-4.7); Potassium 3.6 mmol/L (3.5-5.1); Sodium 142 mmol/L (136-145)
[2023-08-20 10:53] LABS: Lymphocytes Absolute Manual 0.48 10^3/uL (1.20-3.80); Monocytes Absolute Manual 0.06 10^3/uL (0.30-0.80); Segmented Neut Absolute Manual 0.42 10^3/uL (1.4-6.5)
[2023-08-20 10:55] LABS: Anisocytosis 1+; Poikilocytosis 1+
[2023-08-20 10:56] LABS: Ovalocytes 1+
[2023-08-20 10:57] LABS: Acanthocytes 1+; Tear Drop Cells 1+
[2023-08-20 11:28] VITALS: BP 134/84; PULSE 78; RESP 16; TEMP 36.9; O2SAT 95
--- NOTE | 2023-08-20 11:38 | PC.NURSE ---
1005: Pt. to [facility] for scheduled blood draw. Accompanied by . Pt. relays area around right upper arm PICC line insertion site mauricio and itches. Area very red and irritated with purulent drainage noted under dressing. Blood drawn and sent for ordered labs. Dressing removed from PICC line site. Mod amount of mucopurulent drainage noted around insertion site. Skin flaming red with notable breakdown in multiple areas. Dr. Macdonald notified of assessment. Culture of drainage around insertion site sent to lab. Site gently cleansed with soap and water. Pt. relays tenderness and mild pain to area. Order received from Dr. Macdonald to remove PICC and obtain cultures. Blood obtained peripherally and from PICC line for cultures as ordered. Explained procedure of removal of PICC line to pt. Denies questions.Pt. placed in supine position. Using sterile technique PICC line removed while pt. performs Valsalva maneuver. Pressure held to site approximately 1minute. Sterile Vaseline gauze, telfa and 4x4 dressing applied over site. Secured with Coban. Pt. tolerated with no c/o discomfort. Length of PICC line 43cm and no breakdown of integrity of line observed. Tip of PICC sent for culture. 1114: VSS. Pt. without needs or c/o. D/c'd home with amb.
[2023-08-23 10:45] VITALS: BP 155/79; PULSE 85; RESP 18; TEMP 36.9; O2SAT 97
[2023-08-23 11:13] LABS: Hemoglobin 7.7 g/dL (12.0-16.0); Mean Corpuscular HGB Conc 33.3 g/dL (29.9-35.2); Mean Corpuscular Hemoglobin 32.8 pg (26.7-34.0); Mean Corpuscular Volume 98.3 fL (81.0-99.0); Red Blood Count 2.35 10^6/uL (4.20-5.40); Red Cell Distribution Width 21.8 % (11.0-15.0)
--- NOTE | 2023-08-23 11:14 | PC.NURSE ---
1045 Arrival amblatory to chair 1. alert oriented no complaints offered. 1050 vs obtained. 1055 labs drawn peripherally, tolerated.1110 released ambulatory.
[2023-08-23 11:16] LABS: Hematocrit 23.1 % (36.0-48.0); White Blood Count 0.6 10^3/uL (4.0-11.0)
[2023-08-23 11:17] LABS: Mean Platelet Volume 10.2 fL (9.5-13.5); Platelet Count 21 10^3/uL (150-450)
[2023-08-23 11:23] LABS: BUN Creatinine Ratio 10.9; Calcium 8.9 mg/dL (8.5-10.1); Carbon Dioxide 25.4 mmol/L (21.0-32.0); Chloride 106 mmol/L (98-107); Estimated GFR (African America >60 (>=60); Estimated GFR (Non-African Ame >60 (>=60); Glucose 127 mg/dL (74-106); Lactate Dehydrogenase 220 U/L (81-234); Potassium 3.4 mmol/L (3.5-5.1); Sodium 140 mmol/L (136-145); Uric Acid 3.6 mg/dL (2.6-6.0)
[2023-08-23 11:29] LABS: Atypical Lymphocytes Abs Man 0.02; Lymphocytes Absolute Manual 0.38 10^3/uL (1.20-3.80); Monocytes Absolute Manual 0.03 10^3/uL (0.30-0.80); Segmented Neut Absolute Manual 0.15 10^3/uL (1.4-6.5)
[2023-08-23 11:30] LABS: Anisocytosis 1+
[2023-08-28 10:49] LABS: Hemoglobin 7.8 g/dL (12.0-16.0); Mean Corpuscular HGB Conc 34.1 g/dL (29.9-35.2); Mean Corpuscular Hemoglobin 33.9 pg (26.7-34.0); Mean Corpuscular Volume 99.6 fL (81.0-99.0); Mean Platelet Volume 11.8 fL (9.5-13.5)
[2023-08-28 10:52] LABS: Anion Gap 11.8; Calcium 8.8 mg/dL (8.5-10.1); Carbon Dioxide 27.5 mmol/L (21.0-32.0); Chloride 107 mmol/L (98-107); Estimated GFR (African America >60 (>=60); Estimated GFR (Non-African Ame >60 (>=60); Glucose 116 mg/dL (74-106); Potassium 3.3 mmol/L (3.5-5.1); Sodium 143 mmol/L (136-145)
[2023-08-28 11:27] LABS: White Blood Count 0.6 10^3/uL (4.0-11.0)
[2023-08-28 11:28] LABS: Hematocrit 22.9 % (36.0-48.0); Platelet Count 27 10^3/uL (150-450)
[2023-08-28 12:30] LABS: Lymphocytes Absolute Manual 0.46 10^3/uL (1.20-3.80); Segmented Neut Absolute Manual 0.09 10^3/uL (1.4-6.5)
[2023-08-28 12:31] LABS: Monocytes Absolute Manual 0.03 10^3/uL (0.30-0.80)
[2023-08-28 12:32] LABS: Anisocytosis 1+; Ovalocytes 1+; Poikilocytosis 1+; Tear Drop Cells 1+
[2023-08-30 14:24] LABS: Hemoglobin 7.6 g/dL (12.0-16.0); Mean Corpuscular HGB Conc 33.5 g/dL (29.9-35.2); Mean Corpuscular Hemoglobin 33.8 pg (26.7-34.0); Mean Corpuscular Volume 100.9 fL (81.0-99.0); Red Blood Count 2.25 10^6/uL (4.20-5.40)
[2023-08-30 14:33] LABS: Hematocrit 22.7 % (36.0-48.0); Platelet Count 22 10^3/uL (150-450); White Blood Count 0.8 10^3/uL (4.0-11.0)
[2023-08-30 14:37] LABS: Alanine Aminotransferase 40 U/L (14-59); Albumin Globulin Ratio 1.1; Albumin Level 3.1 g/dL (3.4-5.0); Alkaline Phosphatase 78 U/L (46-116); Anion Gap 13.3; Aspartate Amino Transferase 28 U/L (15-37); BUN Creatinine Ratio 13.3; Bilirubin Total 0.4 mg/dL (0.2-1.0); Calcium 8.9 mg/dL (8.5-10.1); Carbon Dioxide 27.2 mmol/L (21.0-32.0); Chloride 109 mmol/L (98-107); Estimated GFR (African America >60 (>=60); Estimated GFR (Non-African Ame >60 (>=60); Globulin 2.9 g/dL; Glucose 138 mg/dL (74-106); Magnesium 1.8 mg/dL (1.8-2.4); Phosphorus 3.8 mg/dL (2.6-4.7); Potassium 3.5 mmol/L (3.5-5.1); Sodium 146 mmol/L (136-145)
[2023-08-30 15:09] LABS: Segmented Neut Absolute Manual 0.06 10^3/uL (1.4-6.5)
[2023-08-30 15:10] LABS: Anisocytosis 2+; Monocytes Absolute Manual 0.03 10^3/uL (0.30-0.80)
== END 2023-09-02 23:59 | disposition home or self-care (01) ==
LOC: INF 14:00
PROVIDERS: PCP Family Medicine; Visit Provider Internal Medicine Hematology & Oncology
DX: Z51.11 Encounter for antineoplastic chemotherapy (principal); C92.00 Acute myeloblastic leukemia, not having achieved remission; C92.92 Myeloid leukemia, unspecified in relapse; D61.818 Other pancytopenia; Z85.3 Personal history of malignant neoplasm of breast; Z90.710 Acquired absence of both cervix and uterus; Z90.722 Acquired absence of ovaries, bilateral; T80.218A Other infection due to central venous catheter, initial encounter
CPT/HCPCS: 36415; 36591; 36592; 80048; 80053; 83615; 83735; 84100; 84550; 85007; 85025; 85027; 87040; 87070; 96375; 96413; G0463; J2469; J9025

== ENCOUNTER 2023-09-21 08:50 | Outpatient (OUT) | payer MEDICARE, SELFPAY ==
--- OUTSIDE RECORDS SUMMARY | 2023-10-18 08:11 | XMS_ITS | CCD ---
Author Name Unknown Address [address] [facility] [place] [address] Organization [facility] Care Team Providers Care Claim Approver Name Role Phone MELISSA PIERCE Primary Care Unavailable MELISSA PIERCE Consulting Unavailable ELE PANIAGUA Attending Brenna vailable WONDERCECELIA, DR MELISSA Banuelos Attending Unavailable WONDERCECELIA, DR MELISAS Banuelos Consulting Unavailable DR MELISSA PIERCE Primary Care Unavailable DR MELISSA PIERCE Admitting Unavailable Melissa Pierce MD Primary Care Provider MARTHA MALIK I Admitting Unavailable MARTHA MALIK I Attending Unavailable MELISSA PIERCE Primary Care Unavailable Melissa Pierce MD Primary Care Provider [phone] Saul DANG, Mike Joseph Unavailable Dania Hill RN Unavailable Unavailable Georgina Kumar RN Unavailable Brianna Pham MD Unavailable Sofya Schmid RN Unavailable Fidelina Dominguez Unavailable [phone] Liz OLEARY, Dania Unavailable Unavailable Melissa Pierce MD Primary Care Provider MELISSA PIERCE Attending Unavailable CHARITY PAGE Attending Unavailable ANANDA MARIEE Attending Unavailable ANANDA MARIEE Admitting Unavailable KARI [facility] Primary Care Unavailable KARI [facility] Primary Care Unavailable BISHOP, SHERRY Referring Unavailable KARI [facility] Primary Care Unavailable BISHOP, SHERRY Referring Unavailable KARI [facility] Primary Care Unavailable MIKE HUGHES Referring Unavailable MIKE HUGHES Attending Unavailable WONDERLY, [facility] Primary Care Unavailable KALAYCIO, BETH Referring Unavailable WONDERLY, [facility] Primary Care Unavailable HUGHES, MIKE JOSEPH Attending Unavailable WONDERLY, [facility] Care Unavailable HUGHES, AKRITI JOSEPH Referring Unavailable WONDERLY, [facility] Care Unavailable LJ LIZ Attending Unavailable LJ LIZ Admitting Unavailable WONDERLY, [facility] Primary Care Unavailable KALWILLIAMCIO, BETH Referring Unavailable CHARLENE MARTINEZ Attending Unavailable CHARLENE MARTINEZ Admitting Unavailable HUGHES, ORALIARILYLA JOSEPH Attending Unavailable WONDERLY, [facility] Primary Care Unavailable WONDERLY, [facility] Primary Care Unavailable HUGHES, ORALIARILYLA MARIEPTA Attending Unavailable WONDERLY, [facility] Care Unavailable HUGHES, ORALIARILYLA MARIEPTA Attending Unavailable WONDERLY, [facility] Care Unavailable HUGHES, ORALIARITI JOSEPH Attending Unavailable WONDERLY, [facility] Care Unavailable WONDERLY, [facility] Referring Unavailable SMITH HDEZ Admitting UnavailCINDI Ordoñez Attending Unavailable ZAID HERNANDEZ Attending Unavailable ZAID HERNANDEZ Admitting Unavailable WONDERLY, [facility] Care Unavailable WERO ABDI WRIGHT Referring Unavailable WONDERLY, [facility] Care Unavailable HUHGES, ORALIARILYLA MARIEPTA Attending Unavailable WONDERLY, [facility] Care Unavailable HUGHES, ORALIARILYLA MARIEPTA Attending Unavailable WONDERLY, [facility] Care Unavailable BISHOP, SHERRY Referring Unavailable HUGHES, ORALIARILYLA MARIEPTA Attending Unavailable WONDERLY, [facility] Care Unavailable BRIANNA PHAM Attending Unavailable BISHOP, SHERRY Referring Unavailable Allergies Allergy Classification Reported Allergen(s) Allergy Type Date of Onset Reaction(s) Facility (20 sources) Acetaminophen / HYDROcodone; Translations: [HYDROCODONE-ACET AMINOPHEN] Drug Allergy 4 Other (See Comments), Mental Status Change, Other [facility] (1 source) Acetaminophen / HYDROcodone; Translations: [Vicodin] Drug Allergy [facility] (4 sources) Melatonin Drug Allergy 3 GI intolerance [facility] Medications Current Medications Medication Drug Class(es) Dates Sig (Normalized) Sig (Original) acyclovir 400 mg oral tablet (20 sources) Herpesvirus Nucleoside Analog DNA Polymerase Inhibitor, Herpes Simplex Virus Nucleoside Analog DNA Polymerase Inhibitor, Herpes Zoster Virus Nucleoside Analog DNA Polymerase Inhibitor Start: 06-07-2023 End: 06-25-2023 take 1 tablet by mouth in the morning acyclovir (Zovirax) 400 MG tablet Take 400 mg by mouth in the morning and 400 mg in the evening. 0 06/07/2023 Active Start: 05-08-2023 take 1 tablet by teto th twice daily acyclovir (ZOVIRAX) 400 mg tablet Take 400 mg by mouth twice daily. 0 05/08/2023 Suspended Comment on above: Take 400 mg by mouth twice daily. Take 1 tablet by teto th two times a day. buPROPion hydrochloride 75 mg oral tablet (20 sources) Aminoketone Start: End: take 2 tablets by mouth in the morning buPROPion (Wellbutrin) 75 MG tablet Indications: Reactive depression (CMS/HCC) , Anxiety Take 2 tablets (150 mg) by mouth in the morning for 360 doses. 90 tablet 1 10/11/2023 10/05/2024 Active Start: 04-09-2023 End: 07-06-2024 take 1 tablet by mouth in the morning buPROPion (Wellbutrin) 75 MG tablet Indications: Reactive depression (CMS/HCC) , Anxiety Take 1 tablet (75 mg) by mouth in the morning and 1 tablet (75 mg) before bedtime. 270 tablet 0 10/10/2023 10/11/2023 Discontinued (Dose adjustment) Comment on above: Take 75 mg by mouth once daily. calcium chloride 0.0014 meq/ml / potassium chloride 0.004 meq/ml / sodium chloride 0.103 meq/ml / sodium lactate 0.028 meq/ml injectable solution (1 source) Start: lactated ringers IV soln infusion levoFLOXacin 500 mg oral tablet (20 sources) Quinolone Antimicrobial Start: End: take 1 tablet by mouth in the morning levoFLOXacin (Levaquin) 500 MG tablet Take 500 mg by mouth in the morning. 0 06/07/2023 Active Comment on above: Take 1 tablet by teto th once daily. Take 1 tablet by teto th once daily. Do not take while taking the 750mg tablets, resume this dose on 07/29/23 loperamide hydrochloride 2 mg oral capsule (11 sources) Opioid Agonist Start: End: take 1 capsule by mouth every twelve hours as needed loperamide (IMODIUM) 2 mg cap(s) Take 1 capsule by mouth two times a day as needed for diarrhea. 60 capsule 0 07/18/2023 08/17/2023 Active Comment on above: Take 1 capsule by mo uth two times a day as needed for diarrhea. loratadine 10 mg disintegrating oral tablet (4 sources) take 1 tablet by mouth in the morning as needed loratadine (Claritin Reditabs) 10 MG disintegrating tablet Take 10 mg by mouth in the morning. prn. 0 Active Multiple Vitamins-Minerals (THERAPEUTIC MULTIVITAMIN-MINERALS) tablet (1 source) take 1 tablet by mouth once daily Multiple Vitamins-Minerals (THERAPEUTIC MULTIVITAMIN-MINERALS ) tablet Take 1 tablet by mouth daily 0 Active OLANZapine 2.5 mg oral tablet (20 sources) Atypical Antipsychotic Start: take 1 tablet by mouth at bedtime OLANZapine (ZyPREXA) 2.5 MG tablet Take 2.5 mg by mouth at bedtime. 0 06/07/2023 Active Comment on above: Take 1 tablet by teto daily at bedtime. ondansetron 4 mg disintegrating oral tablet (20 sources) Serotonin-3 Receptor Antagonist take 1 tablet by mouth every eight hours as needed for nausea and vomiting ondansetron ODT (Zofran-ODT) 4 MG disintegrating tablet Take 4 mg by mouth every 8 (eight) hours if needed for nausea or vomiting. 0 Active Comment on above: Take 4 mg by mouth e very 8 hours as needed for nausea/vomiting. posaconazole 100 mg delayed release oral tablet (20 sources) Azole Antifungal Start: End: take 3 tablets by mouth in the morning posaconazole (Noxafil) [address] tablet Take 300 mg by mouth in the morning. 0 06/01/2023 Active Comment on above: Take 3 tablets by mo ut once daily. simethicone 80 mg chewable tablet (11 sources) Start: End: take 1 tablet by mouth every six hours as needed simethicone, chewable (MYLICON) 80 mg chewable tablet Take 1 tablet by mouth every 6 hours as needed. 60 tablet 0 07/18/2023 08/17/2023 Active Comment on above: Take 1 tablet by teto th every 6 hours as needed. traMADol hydrochloride 50 mg oral tablet (1 source) Opioid Agonist Start: End: take 1 tablet by mouth every eight [...] teto th every 4 hours as needed. ceFAZolin (ANCEF) 3000 mg in sodium chloride [...] Start: 09-22-2020 Lactobac no.41/Bifidobact no.7 (PROBIOTIC-10 ORAL) Multivitamin capsule (3 sources) take 1 capsule by mouth once daily Multivitamin capsule Take 1 capsule by mouth once daily. 0 Suspended Comment on above: Take 1 capsule by [facility] once daily. omeprazole 20 mg delayed release oral capsule (20 sources) Proton Pump Inhibitor Start: 09-22-2022 take 1 capsule by mouth once daily omeprazole (PRILOSEC) 20 mg capsule Take 20 mg by mouth once daily. 0 09/22/2022 Active Comment on above: Take 20 mg by mouth once daily. 125 ml sodium chloride 9 mg/ml prefilled syringe (20 sources) Start: 07-18-2023 inject 10 mL intravenously once daily, then inject 10 mL intravenously once daily sodium chloride 0.9 %, flush, (BD POSIFLUSH) syringe Inject 10 mL intravenously once daily. Flush each lumen with 10mL NS once daily. 600 mL 2 07/18/2023 Active Start: 06-07-2023 sodium chlorid e (NS) 0.9 % flush Infuse 10 mL into a venous catheter in the morning. 0 06/07/2023 Active Start: 06-07-2023 inject 10 mL intrave [...] Active Problems Problem Classification Problem Date Documented Date Episodic/Chronic Acquired foot deformities (4 sources) Hammer toe; Translations: [Other hammer toe(s) (acquired), right foot] Onset: 02-26-2023 02-26-2023 Chronic Anxiety disorders (5 sources) Anxiety; Translations: [Anxiety disorder, unspecified] Onset: 02-26-2023 02-26-2023 Chronic Cancer of breast (4 sources) Infiltrating duct carcinoma of breast; Translations: [Malignant neoplasm of unspecified site of unspecified female breast] Onset: 02-26-2023 02-26-2023 Chronic Cancer of breast (20 sources) History of malignant neoplasm of breast; Translations: [Personal history of malignant neoplasm of breast] Onset: 10-17-2017 10-17-2017 Episodic Cardiac dysrhythmias (1 source) Ventricular premature complex; Translations: [Ventricular premature depolarization] Onset: 10-16-2023 10-16-2023 Chronic Deficiency and other anemia (20 sources) Pancytopenia; Translations: [Other pancytopenia] Onset: 05-03-2023 05-31-2023 Chronic Deficiency and other anemia (1 source) Other pancytopenia; Translations: [Pancytopenia (HCC)] Onset: 07-18-2023 Chronic Disorders of lipid metabolism (4 sources) Hyperlipidemia; Translations: [Hyperlipidemia, unspecified] Onset: 02-26-2023 02-26-2023 Chronic Diverticulosis and diverticulitis (8 sources) Diverticular disease; Translations: [Diverticulosis of intestine, part unspecified, without perforation or abscess without bleeding] Onset: 02-26-2023 02-26-2023 Chronic Esophageal disorders (5 sources) Gastroesophageal reflux disease; Translations: [Gastro-esophageal reflux disease without esophagitis] Onset: 02-26-2023 02-26-2023 Chronic Genitourinary symptoms and ill-defined conditions (4 sources) Incontinence; Translations: [Unspecified urinary incontinence] Onset: 02-26-2023 02-26-2023 Chronic Immunity disorders (20 sources) Patient immunocompromised; Translations: [Immunodeficiency, unspecified] Onset: 05-29-2023 05-31-2023 Chronic Immunizations and screening for infectious disease (1 source) Encounter for immunization; Translations: [ENCOUNTER FOR IMMUNIZATION] Onset: 08-16-2021 Episodic Joint disorders and dislocations; trauma-related (4 sources) Derangement of posterior horn of medial meniscus; Translations: [Other meniscus derangements, posterior horn of medial meniscus, unspecified knee] Onset: 02-26-2023 02-26-2023 Chronic Leukemias (20 sources) Acute myeloid leukemia, disease; 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, not having achieved remission] Onset: 05-28-2023 05-28-2023 Chronic Menopausal disorders (4 sources) Menopausal syndrome; Translations: [Menopausal and female climacteric states] Onset: 02-26-2023 02-26-2023 Chronic Mood disorders (20 sources) Depressive disorder; Translations: [Depression] Onset: 02-26-2023 05-28-2023 Chronic Nutritional deficiencies (4 sources) Vitamin D deficiency; Translations: [Vitamin D deficiency, unspecified] Onset: 02-26-2023 02-26-2023 Chronic Osteoarthritis (4 sources) Osteoarthritis of left knee joint; Translations: [Unilateral primary osteoarthritis, left knee] Onset: 02-26-2023 02-26-2023 Chronic Other and unspecified benign neoplasm (1 source) Lipoma of forearm; Translations: [Benign lipomatous neoplasm of skin and subcutaneous tissue of left arm] Episodic Other and unspecified benign neoplasm (1 source) Benign lipomatous neoplasm of skin and subcutaneous tissue of left arm; Translations: [Benign lipomatous neoplasm of skin and subcutaneous tissue of left arm] Onset: 12-22-2022 Episodic Other inflammatory condition of skin (4 sources) Rosacea; Translations: [Rosacea, unspecified] Onset: 02-26-2023 02-26-2023 Chronic Other lower respiratory disease (1 source) Other [...] to excess calories] Onset: 05-30-2023 05-31-2023 Chronic Other nutritional; endocrine; and metabolic disorders (4 sources) Obesity caused by energy imbalance; Translations: [Morbid (severe) obesity due to excess calories] Onset: 02-26-2023 02-26-2023 Chronic Regional enteritis and ulcerative colitis (1 source) Crohn's disease of large intestine without complications; Translations: [Segmental colitis without complication (HCC)] Onset: 08-30-2023 Chronic Spondylosis; intervertebral disc disorders; other back problems (4 sources) Degeneration of lumbar intervertebral disc; Translations: [Other intervertebral disc degeneration, lumbar region] Onset: 06-28-2023 06-28-2023 Chronic Viral infection (4 sources) COVID-19; Translations: [COVID-19] Onset: 08-11-2021 Past or Other Problems Problem Classification Problem Date Documented Da te Episodic/Chronic Anal and rectal conditions (4 sources) Rectal polyp; Translations: [Rectal polyp] Onset: 02-26-2023 02-26-2023 Episodic Biliary tract disease (4 sources) Cholelithiasis without obstruction; Translations: [Calculus of gallbladder without cholecystitis without obstruction] Onset: 06-28-2023 06-28-2023 Episodic Calculus of urinary tract (4 sources) Kidney stone; Translations: [Calculus of kidney] Onset: 06-28-2023 06-28-2023 Episodic Complications of surgical procedures or medical care (20 sources) Infection associated with totally implantable venous access device; Translations: [Unspecified infection due to central venous catheter, initial encounter] Onset: 05-28-2023 Resolved: 09-06-2023 05-28-2023 Episodic Fever of unknown origin (1 source) Fever, unspecified; Translations: [Fever, unspecified fever cause] Onset: 05-28-2023 Episodic Fracture of upper limb (4 sources) Closed fracture of right wrist; Translations: [Fracture of unspecified carpal bone, right wrist, initial encounter for closed fracture] Onset: 02-26-2023 02-26-2023 Episodic Nausea and vomiting (20 sources) Chemotherapy-induced nausea and vomiting; Translations: [Nausea with vomiting, unspecified] Onset: 06-02-2023 06-07-2023 Episodic Noninfectious gastroenteritis (18 sources) Colitis; Translations: [Noninfective gastroenteritis and colitis, unspecified] Onset: 07-13-2023 07-30-2023 Episodic Other aftercare (20 sources) Post-discharge follow-up; Translations: [Encounter for follow-up examination after completed treatment for conditions other than malignant neoplasm] Onset: 05-29-2023 05-31-2023 Episodic Other and unspecified benign neoplasm (4 sources) Melanocytic nevus of trunk; Translations: [Melanocytic nevi of trunk] Onset: 02-26-2023 02-26-2023 Episodic Other and unspecified benign neoplasm (4 sources) Polyp of transverse colon; Translations: [Polyp of colon] Onset: 02-26-2023 02-26-2023 Episodic Other bone disease and musculoskeletal deformities (20 sources) Osteopenia; Translations: [Other specified disorders of bone density and structure, unspecified site] Onset: 06-15-2016 06-15-2016 Episodic Other gastrointestinal disorders (5 sources) Diarrhea; Translations: [Diarrhea, unspecified] Onset: 05-31-2023 05-31-2023 Episodic Other lower respiratory disease (20 sources) Nodule of lung; Translations: [Solitary pulmonary nodule] Onset: 09-29-2013 09-29-2013 Episodic Other skin disorders (4 sources) Seborrheic keratosis; Translations: [Other seborrheic keratosis] Onset: 02-26-2023 02-26-2023 Episodic Residual codes; unclassified (16 sources) At risk of disease; Translations: [Other specified personal risk factors, not elsewhere classified] Onset: 07-14-2023 07-18-2023 Episodic Skin and subcutaneous tissue infections (1 source) Cellulitis of chest wall; Translations: [Cellulitis of chest wall] Onset: 05-28-2023 Episodic Results Test Name Value Interpretation Reference Range Facility BONE MARROW ANALYSISon 10-[address] [facility] Comment on above: Order Comment: Elvia escobar Type: BONE MARROW SPECIMEN Ordering Facility: [facility] Address: [address] [place] [address] Result Comment: Bone Marrow Pathology Report Case: [id number] Authorizing Provider: Mike Hughes MD Collected: 10/11/2023 12:06 PM Ordering Location: Hematology/Oncology Received: 10/11/2023 01:05 PM Pathologist: Fabricio Hernandez MD, PhD Specimens: A) - BONE MARROW ASPIRATE RIGHT POSTERIOR ILIAC CREST B) - BONE MARROW BIOPSY RIGHT POSTERIOR ILIAC CREST C) - BONE MARROW CLOT RIGHT POSTERIOR ILIAC CREST D) - Peripheral blood smear Performed By: #### B MRT #### [facility] CLIA [id number] [address] [place] [address] [place] DIAGNOSIS COMMENT [facility] Comment on above: Order Comment: Elvia escobar Type: BONE MARROW SPECIMEN Ordering Facility: [facility] Address: [address] [place] [address] Result Comment: The patient has a history of an acute myeloid leukemia with mutated TP53, therapy related (see report [id number]). The morphologic findings show persistent/recurrent disease with approximately 30% blasts noted by immunohistochemistry performed on the core biopsy. Send out MRD flow cytometry studies remain pending, as well as myeloid NGS and metaphase cytogenetic analysis. An addendum will follow upon completion of the ancillary studies. Laboratory Developed Test (LDT) Disclaimer: Performance characteristics of immunohistochemical, immunofluorescent and chromogenic in-situ hybridization tests have been determined by the performing laboratory within [facility]???s [facility] Pathology and Laboratory Medicine [place] ([facility], [facility], [facility], [facility], [facility], [facility], [facility], or [facility]) in a manner consistent with CLIA requirements. One or more of these tests have not been cleared or approved by the FDA. [facility] is regulated under CLIA as qualified to perform high-complexity testing. These tests are used for clinical purposes. They should not be regarded as investigational or for research. Positive and negative controls stain appropriately. Performed By: #### B MRT #### [facility] CLIA [id number] [address] [place] [address] OF [facility] FINAL DIAGNOSIS Normal [facility] Comment on above: Order Comment: Speci men Type: BONE MARROW SPECIMEN Ordering Facility: [facility] Address: [address] [place] [address] Result Comment: A-C. Bone marrow, aspirate smear and core biopsy, with clot section: - Persistent/recurrent acute myeloid leukemia with approximately 30% blasts. - Variably cellular bone marrow (overall 10%) with decreased trilineage hematopoiesis. - Stainable iron present. - See comment. D. Peripheral blood smear: - Pancytopenia. [facility] 10/12/2023 Performed By: #### B MRT #### [facility] CLIA [id number] [address] [place] [address] STATES OF [facility] FINAL PERFORMING LAB [facility] Comment on above: Order Comment: Speci men Type: BONE MARROW SPECIMEN Ordering Facility: [facility] Address: [address] [place] [address] Result Comment: Diag nostic interpretation performed at [facility], [address] [place] [address] CLIA# [id number] Information Systems Project Manager: Boris Wood M.D. Performed By: #### B MRT #### [facility] CLIA [id number] [address] [place] [address] [place] GROSS DESCRIPTION Normal [facility] Comment on above: Order Comment: Speci men Type: BONE MARROW SPECIMEN Ordering Facility: [facility] Address: [address] [place] [address] Result Comment: A. B ONE MARROW ASPIRATE RIGHT POSTERIOR ILIAC CREST Received are air-dried bone marrow aspirate smears. Submitted for light microscopy. B. BONE MARROW BIOPSY RIGHT POSTERIOR ILIAC CREST Received in formalin is one segment of cylindrical tissue measuring to 2.2 x 0.4 x 0.3 cm, red-brown and of a firm consistency. Totally submitted in formalin in one cassette after decalcification. C. BONE MARROW CLOT RIGHT POSTERIOR ILIAC CREST Received in formalin is a segment of red-brown hemorrhagic material measuring to 2.0 x 1.7 x 0.7 cm. Totally submitted in one cassette. D. Peripheral blood smear Received is a peripheral blood smear. Submitted for light microscopy. Gross examination performed at [facility], [address] [place] [address] October 11, 2023 7:12 PM Performed By: #### B MRT #### [facility] CLIA [id number] [address] [place] [address] [place] MICROSCOPIC DESCRIPTION Normal [facility] Comment on above: Order Comment: Speci men Type: BONE MARROW SPECIMEN Ordering Facility: [facility] Address: [address] [place] [address] Result Comment: GENNY PHERAL BLOOD: CBC (10/11/2023 8:33 AM) Diff WBC 0.41 k/uL Neutrophils % Too few Hemoglobin 10.1 g/dL Lymphocytes % Too few MCV 88.8 fL Monocytes % Too few RDW-CV 15.2 % Eosinophils % Too few Platelet Count 16 k/uL Basophils % Too few Immature Granulocytes % Too few Morphology/Interpretation: There is pancytopenia. Too few white cells are present for a differential count. BONE MARROW ASPIRATE: Iron stain result: Increased storage iron is present. Ring sideroblasts are not identified. Specimen Quality: The aspirate smears are a particulate with thick preparation, precluding a differential count. Megakaryocytes: Cannot assess. Erythropoiesis: Cannot assess. Granulopoiesis: Cannot assess. BONE MARROW BIOPSY: Adequacy: Suboptimal (fragmented with aspiration artifact). Cellularity: Decreased for age (variable from 5-30%, overall 10%). ME ratio: Normal. Hematopoiesis: Trilineage maturation with increased immature mononuclear cells. Megakaryocytes: Present. Megakaryocyte morphology: Small hypolobated forms are identified. Lymphoid infiltrate: Interstitial lymphoid aggregates present composed predominantly of small lymphocytes. Bone trabeculae: Normal. Other: An immunostain for CD34 demonstrates numerous positive mononuclear cells representing approximately 30% of the total cellularity. A CD61 stain is similar to the CD34, highlighting numerous small mononuclear cells as well as occasional hypolobated megakaryocytes. CLOT SECTION: Marrow particles: Absent. Morphology: N/A. ANCILLARY TESTS: Flow cytometry: Send out MRD flow cytometry pending. Cytogenetics: Pending. FISH: N/A. Molecular: Myeloid NGS pending. Performed By: #### B MRT #### [facility] CLIA [id number] [address] [place] [address] [place] CBC W Auto Differential pane l (Bld)on 10-11-2023 Anisocytosis Ql (Bld) Present Normal [facility] Comment on above: Order Comment: Specmaria eugenia escobar Type: BLOOD SPECIMEN Ordering Facility: [facility] Address: [address] [place] [address] Performed By: #### 5 7021-8 #### [facility] CLIA [id number] [address] [place] [address] [place] Basophils (Bld) [#/Vol] Normal [facility] Comment on above: Order Comment: Elvia escobar Type: BLOOD SPECIMEN Ordering Facility: [facility] Address: [address] [place] [address] Result Comment: Too Few Cells To Do Differential. Performed By: #### 5 7021-8 #### [facility] CLIA [id number] [place] [address] [place] Basophils/100 WBC (Bld) [facility] Comment on above: Order Comment: Speci men Type: BLOOD SPECIMEN Ordering Facility: [facility] Address: [address] [place] [address] Result Comment: Too Few Cells To Do Differential. Performed By: #### 5 7021-8 #### [facility] CLIA [id number] [place] [address] [place] Dacrocytes LM Ql (Bld) Few [facility] Comment on above: Order Comment: Speci men Type: BLOOD SPECIMEN Ordering Facility: [facility] Address: [address] [place] [address] Performed By: #### 5 7021-8 #### [facility] CLIA [id number] [place] [address] [place] Differential cell count method Nom (Bld) Auto [facility] Comment on above: Order Comment: Speci men Type: BLOOD SPECIMEN Ordering Facility: [facility] Address: [address] [place] [address] Performed By: #### 5 7021-8 #### [facility] CLIA [id number] [place] [address] [place] Eosinophils (Bld) [#/Vol] [facility] Comment on above: Order Comment: Speci men Type: BLOOD SPECIMEN Ordering Facility: [facility] Address: [address] [place] [address] Result Comment: Too Few Cells To Do Differential. Performed By: #### 5 7021-8 #### [facility] CLIA [id number] [place] [address] [place] Eosinophils/100 WBC (Bld) [facility] Comment on above: Order Comment: Speci men Type: BLOOD SPECIMEN Ordering Facility: [facility] Address: [address] [place] [address] Result Comment: Too Few Cells To Do Differential. Performed By: #### 5 7021-8 #### [facility] CLIA [id number] [place] [address] [place] Erythrocyte distribution width (RBC) [Ratio] 15.2 % High 11.5-15.0 [facility] Comment on above: Order Comment: Speci men Type: BLOOD SPECIMEN Ordering Facility: [facility] Address: [address] [place] [address] Performed By: #### 5 7021-8 #### [facility] CLIA [id number] [place] [address] [place] Hematocrit (Bld) [Volume fraction] 29.4 % Low 36.0-46.0 [facility] Comment on above: Order Comment: Speci men Type: BLOOD SPECIMEN Ordering Facility: [facility] Address: [address] [place] [address] Performed By: #### 5 7021-8 #### [facility] CLIA [id number] [place] [address] [place] Hemoglobin (Bld) [Mass/Vol] 10.1 g/dL Low 11.5-15.5 [facility] Comment on above: Order Comment: Speci men Type: BLOOD SPECIMEN Ordering Facility: [facility] Address: [address] [place] [address] Performed By: #### 5 7021-8 #### [facility] CLIA [id number] [place] [address] [place] Immature granulocytes (Bld) [#/Vol] Normal [facility] Comment on above: Order Comment: Speci men Type: BLOOD SPECIMEN Ordering Facility: [facility] Address: [address] [place] [address] Result Comment: Too Few Cells To Do Differential. Performed By: #### 5 7021-8 #### [facility] CLIA [id number] [place] [address] [place] Immature granulocytes/100 WBC (Bld) Normal [facility] Comment on above: Order Comment: Speci men Type: BLOOD SPECIMEN Ordering Facility: [facility] Address: [address] [place] [address] Result Comment: Too Few Cells To Do Differential. Performed By: #### 5 7021-8 #### [facility] CLIA [id number] [place] [address] [place] Lymphocytes (Bld) [#/Vol] Normal [facility] Comment on above: Order Comment: Speci men Type: BLOOD SPECIMEN Ordering Facility: [facility] Address: [address] [place] [address] Result Comment: Too Few Cells To Do Differential. Performed By: #### 5 7021-8 #### [facility] CLIA [id number] [place] [address] [place] [facility] Lymphocytes/100 WBC (Bld) Normal [facility] Comment on above: Order Comment: Speci men Type: BLOOD SPECIMEN Ordering Facility: [facility] Address: [address] [place] [address] Result Comment: Too Few Cells To Do Differential. Performed By: #### 5 7021-8 #### [facility] CLIA [id number] [place] [address] [place] MCH (RBC) [Entitic mass] 30.5 pg Normal 26.0-34.0 [facility] Comment on above: Order Comment: Speci men Type: BLOOD SPECIMEN Ordering Facility: [facility] Address: [address] [place] [address] Performed By: #### 5 7021-8 #### [facility] CLIA [id number] [place] [address] [place] MCHC (RBC) [Mass/Vol] 34.4 g/dL Normal 30.5-36.0 [facility] Comment on above: Order Comment: Speci men Type: BLOOD SPECIMEN Ordering Facility: [facility] Address: [address] [place] [address] Performed By: #### 5 7021-8 #### [facility] CLIA [id number] [place] [address] [place] MCV (RBC) [Entitic vol] 88.8 fL Normal 80.0-100.0 [facility] Comment on above: Order Comment: Speci men Type: BLOOD SPECIMEN Ordering Facility: [facility] Address: [address] [place] [address] Performed By: #### 5 7021-8 #### [facility] CLIA [id number] [place] [address] [place] Monocytes (Bld) [#/Vol] Normal [facility] Comment on above: Order Comment: Speci men Type: BLOOD SPECIMEN Ordering Facility: [facility] Address: [address] [place] [address] Result Comment: Too Few Cells To Do Differential. Performed By: #### 5 7021-8 #### [facility] CLIA [id number] [place] [address] [place] Monocytes/100 WBC (Bld) Normal [facility] Comment on above: Order Comment: Speci men Type: BLOOD SPECIMEN Ordering Facility: [facility] Address: [address] [place] [address] Result Comment: Too Few Cells To Do Differential. Performed By: #### 5 7021-8 #### [facility] CLIA [id number] [place] [address] [place] Neutrophils (Bld) [#/Vol] Normal [facility] Comment on above: Order Comment: Speci men Type: BLOOD SPECIMEN Ordering Facility: [facility] Address: [address] [place] [address] Result Comment: Too Few Cells To Do Differential. Performed By: #### 5 7021-8 #### [facility] CLIA [id number] [place] [address] [place] Neutrophils/100 WBC (Bld) Normal [facility] Comment on above: Order Comment: Speci men Type: BLOOD SPECIMEN Ordering Facility: [facility] Address: [address] [place] [address] Result Comment: Too Few Cells To Do Differential. Performed By: #### 5 7021-8 #### [facility] CLIA [id number] [place] [address] [place] Nucleated RBC (Bld) [#/Vol] 10*3/uL Normal <0.01 [facility] Comment on above: Order Comment: Speci men Type: BLOOD SPECIMEN Ordering Facility: [facility] Address: [address] [place] [address] Performed By: #### 5 7021-8 #### [facility] CLIA [id number] [place] [address] [place] Nucleated RBC/100 WBC (Bld) [Ratio] 0.0 /100 WBC Normal [facility] Comment on above: Order Comment: Speci men Type: BLOOD SPECIMEN Ordering Facility: [facility] Address: [address] [place] [address] Performed By: #### 5 7021-8 #### [facility] CLIA [id number] [place] [address] [place] Platelet mean volume (Bld) [Entitic vol] 10.9 fL Normal 9.0-12.7 [facility] Comment on above: Order Comment: Speci men Type: BLOOD SPECIMEN Ordering Facility: [facility] Address: [address] [place] [address] Performed By: #### 5 7021-8 #### [facility] CLIA [id number] [place] [address] [place] Platelets (Bld) [#/Vol] 16 10*3/uL Low 150-400 [facility] Comment on above: Order Comment: Speci men Type: BLOOD SPECIMEN Ordering Facility: [facility] Address: [address] [place] [address] Result Comment: Resu lts checked and verified.No clot detected. Performed By: #### 5 7021-8 #### [facility] CLIA [id number] [place] [address] [place] Platelets Estimate (Bld) [#/Vol] Decreased Normal [facility] Comment on above: Order Comment: Speci men Type: BLOOD SPECIMEN Ordering Facility: [facility] Address: [address] [place] [address] Performed By: #### 5 7021-8 #### [facility] CLIA [id number] [place] [address] [place] [facility] RBC (Bld) [#/Vol] 3.31 10*6/uL Low 3.90-5.20 [facility] Comment on above: Order Comment: Speci men Type: BLOOD SPECIMEN Ordering Facility: [facility] Address: [address] [place] [address] Performed By: #### 5 7021-8 #### [facility] CLIA [id number] [address] [place] [facility] RBC FRAGMENTS Few Abnormal None Seen [facility] Comment on above: Order Comment: Speci men Type: BLOOD SPECIMEN Ordering Facility: [facility] Address: [address] [place] [address] Performed By: #### 5 7021-8 #### [facility] CLIA [id number] [address] [place]PH Reviewed: see result s of individual morphologies Normal [facility] Comment on above: Order Comment: Speci men Type: BLOOD SPECIMEN Ordering Facility: [facility] Address: [address] [place] [address] Performed By: #### 5 7021-8 #### [facility] CLIA [id number] [place] [address] [place] WBC (Bld) [#/Vol] 0.41 10*3/uL Low 3.70-11.00 [facility] Comment on above: Order Comment: Speci men Type: BLOOD SPECIMEN Ordering Facility: [facility] Address: [address] [place] [address] Result Comment: Too Few Cells To Do Differential Performed By: #### 5 7021-8 #### [facility] CLIA [id number] [place] [address] [place] CBC W Ordered Manual Differe ntial panel (Bld)on 10-11-2023 ANISOCYTOSIS Present Normal [facility] Comment on above: Order Comment: Speci men Type: BLOOD SPECIMEN Ordering Facility: [facility] Address: [address] [place] [address] Performed By: #### 5 7782-5, STFREV #### [facility] CLIA [id number] [address] [place] [address] [place] Basophils (Bld) [#/Vol] Normal [facility] Comment on above: Order Comment: Speci men Type: BLOOD SPECIMEN Ordering Facility: [facility] Address: [address] [place] [address] Result Comment: Too few cells to do differential. Performed By: #### 5 7782-5, STFREV #### [facility] CLIA [id number] [address] [place] [address] [place] Basophils/100 WBC (Bld) Normal [facility] Comment on above: Order Comment: Speci men Type: BLOOD SPECIMEN Ordering Facility: [facility] Address: [address] [place] [address] Result Comment: Too few cells to do differential. Performed By: #### 5 7782-5, STFREV #### [facility] CLIA [id number] [address] [place] [address] [place] Dacrocytes LM Ql (Bld) Few Normal [facility] Comment on above: Order Comment: Speci men Type: BLOOD SPECIMEN Ordering Facility: [facility] Address: [address] [place] [address] Performed By: #### 5 7782-5, STFREV #### [facility] CLIA [id number] [address] [place] [address] [place] Eosinophils (Bld) [#/Vol] [facility] Comment on above: Order Comment: Speci men Type: BLOOD SPECIMEN Ordering Facility: [facility] Address: [address] [place] [address] Result Comment: Too few cells to do differential. Performed By: #### 5 7782-5, STFREV #### [facility] CLIA [id number] [address] [place] [address] [place] Eosinophils/100 WBC (Bld) Normal [facility] Comment on above: Order Comment: Speci men Type: BLOOD SPECIMEN Ordering Facility: [facility] Address: [address] [place] [address] Result Comment: Too few cells to do differential. Performed By: #### 5 7782-5, STFREV #### [facility] CLIA [id number] [address] [place] [address] [place] Erythrocyte distribution width (RBC) [Ratio] 15.2 % High 11.5-15.0 [facility] Comment on above: Order Comment: Speci men Type: BLOOD SPECIMEN Ordering Facility: [facility] Address: [address] [place] [address] Performed By: #### 5 7782-5, STFREV #### [facility] CLIA [id number] [address] [place] [address] [place] Hematocrit (Bld) [Volume fraction] 29.4 % Low 36.0-46.0 [facility] Comment on above: Order Comment: Speci men Type: BLOOD SPECIMEN Ordering Facility: [facility] Address: [address] [place] [address] Performed By: #### 5 7782-5, STFREV #### [facility] CLIA [id number] [address] [place] [address] [place] Hemoglobin (Bld) [Mass/Vol] 10.1 g/dL Low 11.5-15.5 [facility] Comment on above: Order Comment: Speci men Type: BLOOD SPECIMEN Ordering Facility: [facility] Address: [address] [place] [address] Performed By: #### 5 7782-5, STFREV #### [facility] CLIA [id number] [address] [place] [address] [place] Immature granulocytes (Bld) [#/Vol] Normal [facility] Comment on above: Order Comment: Speci men Type: BLOOD SPECIMEN Ordering Facility: [facility] Address: [address] [place] [address] Result Comment: Too few cells to do differential. Performed By: #### 5 7782-5, STFREV #### [facility] CLIA [id number] [address] [place] [address] [place] Immature granulocytes/100 WBC (Bld) Normal [facility] Comment on above: Order Comment: Speci men Type: BLOOD SPECIMEN Ordering Facility: [facility] Address: [address] [place] [address] Result Comment: Too few cells to do differential. Performed By: #### 5 7782-5, STFREV #### [facility] CLIA [id number] [address] [place] [address] [place] Lymphocytes (Bld) [#/Vol] Normal [facility] Comment on above: Order Comment: Speci men Type: BLOOD SPECIMEN Ordering Facility: [facility] Address: [address] [place] [address] Result Comment: Too few cells to do differential. Performed By: #### 5 7782-5, STFREV #### [facility] CLIA [id number] [address] [place] [address] [place] Lymphocytes/100 WBC (Bld) Normal [facility] Comment on above: Order Comment: Speci men Type: BLOOD SPECIMEN Ordering Facility: [facility] Address: [address] [place] [address] Result Comment: Too few cells to do differential. Performed By: #### 5 7782-5, STFREV #### [facility] CLIA [id number] [address] [place] [address] [place] MCH (RBC) [Entitic mass] 30.5 pg Normal 26.0-34.0 [facility] Comment on above: Order Comment: Speci men Type: BLOOD SPECIMEN Ordering Facility: [facility] Address: [address] [place] [address] Performed By: #### 5 7782-5, STFRBHAVIN #### [facility] CLIA [id number] [address] [place] [address] [place] MCHC (RBC) [Mass/Vol] 34.4 g/dL Normal 30.5-36.0 [facility] Comment on above: Order Comment: Speci men Type: BLOOD SPECIMEN Ordering Facility: [facility] Address: [address] [place] [address] Performed By: #### 5 7782-5, STJAVI #### [facility] CLIA [id number] [address] [place] [address] [place] MCV (RBC) [Entitic vol] 88.8 fL Normal 80.0-100.0 [facility] Comment on above: Order Comment: Speci men Type: BLOOD SPECIMEN Ordering Facility: [facility] Address: [address] [place] [address] Performed By: #### 5 7782-5, STFREV #### [facility] CLIA [id number] [address] [place] [address] [place] Monocytes (Bld) [#/Vol] Normal [facility] Comment on above: Order Comment: Speci men Type: BLOOD SPECIMEN Ordering Facility: [facility] Address: [address] [place] [address] Result Comment: Too few cells to do differential. Performed By: #### 5 7782-5, STFREV #### [facility] CLIA [id number] [address] [place] [address] [place] Monocytes/100 WBC (Bld) Normal [facility] Comment on above: Order Comment: Speci men Type: BLOOD SPECIMEN Ordering Facility: [facility] Address: [address] [place] [address] Result Comment: Too few cells to do differential. Performed By: #### 5 7782-5, STFREV #### [facility] CLIA [id number] [address] [place] [address] [place] Neutrophils (Bld) [#/Vol] Normal [facility] Comment on above: Order Comment: Speci men Type: BLOOD SPECIMEN Ordering Facility: [facility] Address: [address] [place] [address] Result Comment: Too few cells to do differential. Performed By: #### 5 7782-5, STFREV #### [facility] CLIA [id number] [address] [place] [address] [place] Neutrophils/100 WBC (Bld) Normal [facility] Comment on above: Order Comment: Speci men Type: BLOOD SPECIMEN Ordering Facility: [facility] Address: [address] [place] [address] Result Comment: Too few cells to do differential. Performed By: #### 5 7782-5, STFREV #### [facility] CLIA [id number] [address] [place] [address] [place] Platelet mean volume (Bld) [Entitic vol] 10.9 fL Normal 9.0-12.7 [facility] Comment on above: Order Comment: Speci men Type: BLOOD SPECIMEN Ordering Facility: [facility] Address: [address] [place] [address] Performed By: #### 5 7782-5, STFREV #### [facility] CLIA [id number] [address] [place] [address] [place] Platelets (Bld) [#/Vol] 16 10*3/uL Low 150-400 [facility] Comment on above: Order Comment: Speci men Type: BLOOD SPECIMEN Ordering Facility: [facility] Address: [address] [place] [address] Performed By: #### 5 7782-5, STFREV #### [facility] CLIA [id number] [address] [place] [address] [place] Platelets Estimate (Bld) [#/Vol] Decreased Normal [facility] Comment on above: Order Comment: Speci men Type: BLOOD SPECIMEN Ordering Facility: [facility] Address: [address] [place] [address] Performed By: #### 5 7782-5, STFREV #### [facility] CLIA [id number] [address] [place] [address] [place] RBC (Bld) [#/Vol] 3.31 10*6/uL Low 3.90-5.20 [facility] Comment on above: Order Comment: Speci men Type: BLOOD SPECIMEN Ordering Facility: [facility] Address: [address] [place] [address] Performed By: #### 5 7782-5, STFREV #### [facility] CLIA [id number] [address] [place] [address] [place] RBC FRAGMENTS Few Abnormal None Seen [facility] Comment on above: Order Comment: Speci men Type: BLOOD SPECIMEN Ordering Facility: [facility] Address: [address] [place] [address] Performed By: #### 5 7782-5, STFREV #### [facility] CLIA [id number] [address] [place] [address] [place] RED CELL MORPH Reviewed: see result s of individual morphologies Normal [facility] Comment on above: Order Comment: Speci men Type: BLOOD SPECIMEN Ordering Facility: [facility] Address: [address] [place] [address] Performed By: #### 5 7782-5, STFREV #### [facility] CLIA [id number] [address] [place] [address] [place] WBC (Bld) [#/Vol] 0.41 10*3/uL Low 3.70-11.00 [facility] Comment on above: Order Comment: Speci men Type: BLOOD SPECIMEN Ordering Facility: [facility] Address: [address] [place] [address] Performed By: #### 5 7782-5, RAMON #### [facility] CLIA [id number] [address] [facility] [place] [address] [place] [facility] CBC W AUTO DIFF BLDon [facility] ANISOCYTOSIS Present [facility] BASOPHILS # BLD AUTO [facility] Comment on above: Too Few Cells To Do Differential. [facility] BASOPHILS/LE[place] NFR BLD AUTO [facility] Comment on above: Too Few Cells To Do Differential. [facility] DACRYOCYTES BLD QL SMEAR Few [facility] DIFFERENTIAL METHOD BLD Auto [facility] EOSINOPHIL # BLD AUTO [facility] Comment on above: Too Few Cells To Do Differential. [facility] EOSINOPHIL/[place] NFR BLD AUTO [facility] Comment on above: Too Few Cells To Do Differential. [facility] LYMPHOCYTES # BLD AUTO [facility] Comment on above: Too Few Cells To Do Differential. [facility] LYMPHOCYTES/[place] NFR BLD AUTO [facility] Comment on above: Too Few Cells To Do Differential. [facility] MONOCYTES # BLD AUTO [facility] Comment on above: Too Few Cells To Do Differential. [facility] MONOCYTES/[place] NFR BLD AUTO [facility] Comment on above: Too Few Cells To Do Differential. [facility] NEUTROPHILS # BLD AUTO [facility] Comment on above: Too Few Cells To Do Differential. [facility] NEUTROPHILS/[place] NFR BLD AUTO [facility] Comment on above: Too Few Cells To Do Differential. [facility] NRBC # BLD AUTO <0.01 NINF [facility] NRBC/100 WBC BLD-RTO 0.0 /100 WBC [facility] PLATELET # BLD AUTO 16 Low [facility] Comment on above: Results checked and verified.No clot detected. [facility] PMV BLD AUTO 10.9 fL 9.0 - 12.7 fL [facility] RBC FRAGMENTS Few Abnormal None Seen [facility] RED CELL MORPH Reviewed: see results of individual morphologies [facility] WBC # BLD AUTO 0.41 Low [facility] Comment on above: Too Few Cells To Do Differential Erythrocyte distribution width (RBC) [Ratio] 15.2 % High 11.5 - 15.0 % [facility] Hematocrit (Bld) [Volume fraction] 29.4 % Low 36.0 - 46.0 % [facility] Hemoglobin (Bld) [Mass/Vol] 10.1 g/dL Low 11.5 - 15.5 g/dL [facility] IMM GRANULOCYTES # BLD AUTO [facility] Comment on above: Too Few Cells To Do Differential. IMM GRANULOCYTES/LEUK NFR BLD AUTO [facility] Comment on above: Too Few Cells To Do Differential. Interpretation and review of laboratory results Abnormal [facility] MCH (RBC) [Entitic mass] 30.5 pg 26.0 - 34.0 pg [facility] MCHC (RBC) [Mass/Vol] 34.4 g/dL 30.5 - 36.0 g/dL [facility] MCV (RBC) [Entitic vol] 88.8 fL 80.0 - 100.0 fL [facility] PLATELET # BLD EST Decreased [facility] RBC (Bld) [#/Vol] 3.31 10*6/uL Low 3.90 - 5.20 m/uL [facility] Specimen Type: BLOOD SPECIMEN Ordering Facility: [facility] Address: [address] [place] [address] Original Ordering Provider: ANANDA HUMMEL [facility] CT BIOPSY BONE MARROW (HEMO) on 10-11-2023 CT BIOPSY BONE MARROW (HEMO) * * *Final Report* * * DATE OF EXAM: Oct 11 2023 12:15PM [facility] 2037 - CT BIOPSY BONE MARROW (HEMO) / PROCEDURE REASON: Hematologic malignancy, assess treatment response * * * * Physician Interpretation * * * * RESULT: CT GUIDED GUIDED BONE MARROW BIOPSY 1. INDICATION: The patient is a 68-year-old female with hematologic malignancy, assess treatment response; here for bone biopsy. 2. CONSENT: The risks, benefits, treatment options, potential complications and personnel to be involved were discussed (including the risks of radiation exposure, contrast and anesthesia administration) with the All questions were answered and consent was obtained from the patient. The patient indicated willingness to proceed. 3. GENERAL: a) Medication Reconciliation: The patient's medications and allergies were reviewed in the electronic medical record and reconciled to the proposed procedure/treatment. Pre-procedure Sign-in: Safety Checklist Performed Yes b) Positioning: The patient was placed on the table. c) The posterior upper pelvis was then sterilely prepped and draped. d) Time Out: A time out was performed immediately prior to procedure start with the nursing, anesthesia and interventional team, correctly identifying the patient name, date of , procedure, anatomy (including marking of site and side), patient position, procedure consent form, relevant diagnostic and radiology test results, antibiotic administration, safety precautions, and procedure-specific equipment needs. Time Out: 1147 hours Procedure Start Time: 1156 hours Procedure End Time: 1209 hours e) Anesthesia Type: moderate procedural sedation. Local anesthesia: 10 mL 1% lidocaine. f) Anesthesia was administered for a total of None using 2 mg of Versed and 100 mcg of Fentanyl. g) Patient monitoring: Performed by registered nurse. 4. PROCEDURE: a) Procedure Details: Under CT guidance an 11 gauge On-control was advanced into the posterior superior iliac spine bone. Bone marrow aspiration was performed and using same 11 gauge needle, a single core biopsy sample of obtained in single pass b) Devices used: Biopsy/Aspiration Needle: 11 Gauge On Control c) Estimated Blood Loss: Minimal mL d) Number and Type of Removed Specimens: 11 cc of bone marrow aspirate and 2 cm bone core. 6. CONTRAST CT Contrast CT imaging was performed without contrast. 7. RADIATION DOSE a) Image guidance: CT guidance b) Radiation: CT Radiation dose: Integrated Dose-length product (DLP) for this visit = 187 mGy*cm. CT Dose Reduction Employed: Automated exposure control(AEC) and iterative recon 8. POST PROCEDURE: a) Hemostasis: Hemostasis was achieved using light manual compression. c) Sign-out: Communication Performed Yes d) Conclusion: The patient was transferred to the biopsy recovery room in stable condition. 9. COMPLICATIONS: a) Significant Patient Complication: None If other, explain: b) Complications during the procedure: None If other, explain: 10. RESULTS: CT-guided bone marrow aspiration and biopsy performed. 11. IMPRESSION: CT-guided bone marrow aspiration and core biopsy as described. Additional procedure details described in the report. Transcribed Using Voice Recognition Transcribe Date/Time: Oct 11 2023 12:36P Dictated by: ANADNA MARIEE MD This examination was interpreted and the report reviewed and electronically signed by: ANANDA MARIEE MD on Oct 11 2023 12:38PM EST [id number] [facility] FLOW CYTOMETRY FOR LEUKEMIA/ LYMPHOMA (FCLL) PERFORMABLEon 10-11-2023 FLOW CYTOMETRY ORDER STATUS A bone marrow sample was received for potential flow cytometry studies. Following morphologic review, flow cytometric studies will be ordered by the hematopathologist if testing is indicated. [facility] Comment on above: Order Comment: Speci men Type: BONE MARROW SPECIMEN [facility]ing Facility: [facility] Address: [address] [place] [address] Performed By: #### F CLLP #### [facility] CLIA [id number] [address] [place] [address] [place] [address] [place] HISTORY PHYSICALon HISTORY PHYSICAL HNO ID: [id number] Author: JUAN SIMS PA-C Service: Radiology Author Type: Physician Supervisor Sanding Type: H&P Filed: 10/11/2023 08:47 Note Text: HISTORY AND PHYSICAL EXAMINATION SERVICE DATE: 10/11/2023 SERVICE TIME: 8:25 AM PRIMARY CARE PHYSICIAN: Melissa Pierce MD HPI: This is a 68 year old female who presents with a PMH significant for AML and Hypoxia who presents for a planned DIAGNOSTIC BONE MARROW BIOPSY(IES) AND ASPIRATION(S). Patient currently being treated for Bacteremia. Discharged from hospital on 10/04/2023. She currently denies any Chest Pain, palpitations, SOB, headache, dizziness, lightheadedness, change in vision or hearing, numbness or tingling in the hands or feet, abdominal pain, N/V/C/D, dysuria or hematuria, seizures or syncope. PAST MEDICAL HISTORY Diagnosis Date AML (acute [...] unspecified site 09/2013 left breast Prolapsed uterus PAST SURGICAL HISTORY Procedure Laterality Date COLONOSCOPY PAST SURGICAL HISTORY OF 09/2012 JE/BSO/ pelvic sling PAST SURGICAL HISTORY OF 02/2013 Left compound fracture - ankle PAST SURGICAL HISTORY OF 09/2012 hysterectomy/oophrectomy PICC LINE INSERT/CONSULT 05/31/2023 FAMILY HISTORY Problem Relation Age of Onset Hypertension Mother Prostate Cancer Father Hypertension Father Venous Thromboembolism Sister other (chronic myeloid leukemia) Brother Ovarian cancer Paternal Grandmother 65 other (Gastric Cancer [Other]) Paternal Grandfather 70 Breast Cancer Paternal Aunt 66 Social History Tobacco Use Smoking status: Never Smokeless tobacco: Never Substance Use Topics Alcohol use: Yes Alcohol/week: 2.0 standard drinks of alcohol Types: 2 Glasses of wine per week Comment: social Drug use: No posaconazole DR (NOXAFIL) 100 mg tablet, Take 3 tablets by mouth once daily., Disp: 90 tablet, Rfl: 2, 10/10/2023 levoFLOXacin (LEVAQUIN) 500 mg tablet, Take 1 tablet by mouth once daily. Do not take while taking the 750mg tablets, resume this dose on 07/29/23, Disp: 30 tablet, Rfl: 1, 10/10/2023 acyclovir (ZOVIRAX) 400 mg tablet, Take 1 tablet by mouth two times a day., Disp: 60 tablet, Rfl: 0, 10/11/2023 OLANZapine (ZYPREXA) 2.5 mg tablet, Take 1 tablet by mouth daily at bedtime., Disp: 30 tablet, Rfl: 0, 10/10/2023 omeprazole (PRILOSEC) 20 mg capsule, Take 20 mg by mouth once daily., Disp: , Rfl: , 10/10/2023 ondansetron orally disintegrating (ZOFRAN ODT) 4 mg disintegrating tablet, Take 4 mg by mouth every 8 hours as needed for nausea/vomiting., Disp: , Rfl: , 10/11/2023 buPROPion (WELLBUTRIN) 75 mg tablet, Take 75 mg by mouth once daily., Disp: , Rfl: , 10/11/2023 sodium chloride 0.9 %, flush, (BD POSIFLUSH) syringe, Inject 10 mL intravenously once daily. Flush each lumen with 10mL NS once daily., Disp: 600 mL, Rfl: 2 loperamide (IMODIUM) 2 mg cap(s), Take 1 capsule by mouth two times a day as needed for diarrhea., Disp: 60 capsule, Rfl: 0 ALLERGIES Allergen Reactions Vicodin [Hydrocodon* Mental Status Change Current Facility-Administered Medications Medication Dose Route Frequency Provider Last Rate Last Admin NaCl 0.9% iv infusion 5-30 mL/hr INTRAVENOUS Pre-Op Once Amanda Valadez PA COMPLETE REVIEW OF SYSTEMS: REVIEW OF SYSTEMS: GENERAL: No weight loss, malaise or fevers HEENT: Negative for frequent or significant headaches, No changes in hearing or vision, no nose bleeds or other nasal problems NECK: Negative for lumps, goiter, pain and significant neck swelling RESPIRATORY: Negative for cough, hemoptysis, wheezing, dyspnea or shortness of breath CARDIOVASCULAR: Negative for chest pain, leg swelling, claudication, palpitations GI: No abdominal pain, nausea, vomiting, black or tarry stools, diarrhea, or heartburn. : No history of dysuria, frequency or incontinence MUSCULOSKELETAL: Negative for joint pain or swelling, back pain or muscle pain SKIN: Negative for lesions, rash, and itching PSYCH: Negative for hallucination, depression, anxiety. HEMATOLOGY/LYMPHOLOGY: Negative for prolonged bleeding, bruising easily or swollen nodes ENDOCRINE: Negative for cold or heat intolerance, polyuria, polydipsia and goiter NEURO: No history of headaches, syncope, paralysis, seizures or tremors OBJECTIVE BP 134/85 Pulse 85 Temp 36.2 ?C (97.2 ?F) (Temporal) Resp 16 Ht 152.4 cm (5') Wt 102.5 kg (226 lb) SpO2 95% BMI 44.14 kg/m? PHYSICAL EXAM: GENERAL: AANDOx3, No Acute distress, cooperative SKIN: Skin color, texture, turgor normal. No rashes or lesions HEAD/SINUSES: No significant findings LUNGS: Lungs clear to auscultation bilate (more content not included)... Normal [facility] PATHOLOGIST INTERPRETATION C BC/DIFFon 10-11-2023 Complaints Coordinator review Pino (Unsp spec) [Interp] Reviewed by Dilan Frazier MD Normal So [facility] Comment on above: Order Comment: Speci men Type: BLOOD SPECIMEN Ordering Facility: [facility] Address: [address] [place], [place] [address] Performed By: #### 5 7782-5, RAMON #### [facility] CLIA [id number] [place] STAFF REVIEW, CBCDIF Normal [facility] Comment on above: Order Comment: Elvia escobar Type: BLOOD SPECIMEN Ordering Facility: [facility] Address: [address] [place] [address] Result Comment: Norm ocytic anemia without polychromasia Leukopenia with absolute neutropenia and lymphopenia Thrombocytopenia Performed By: #### 5 7782-5, STJAVI #### [facility] CLIA [id number] [address] [place] [address] [place] PT panel Coag (PPP)on 2023 INR Coag (PPP) [Relative time] 1.0 {INR} Normal 0.9-1.3 [facility] Comment on above: Order Comment: Elvia escobar Type: BLOOD SPECIMEN Ordering Facility: [facility] Address: [address] [place] [address] Result Comment: Rajwinder min K Antagonist (VKA) Therapeutic Range: INR 2 to 3 (Target INR of 2.5) Note: For patients treated with VKA drugs, such as warfarin, the [place] [employer] 2012 Guideline recommends [...] Chest 2012, 141:7S-47S Margo RA, et al. JAC 2017, 70: 252-289 Performed By: #### 3 4528-0 #### [facility] CLIA [id number] [place] PT Coag (PPP) [Time] 11.4 s Normal 9.7-13.0 [facility] Comment on above: Order Comment: Speci men Type: BLOOD SPECIMEN Order[facility] Facility: [facility] Address: [address] [place] [address] Performed By: #### 3 4528-0 #### [facility] CLIA [id number] [place] [address] [place] TYPE + SCREENon 10-11-[address] [facility] Comment on above: Order Comment: Speci men Type: BLOOD SPECIMEN Ordering Facility: [facility] Address: [address] [place] [address] Performed By: #### T SCR #### [facility] CLIA [id number] [place] [address] [place] HISTORICAL AB SCR STATUS Negative [facility] Comment on above: Order Comment: Speci men Type: BLOOD SPECIMEN Order[facility] Facility: [facility] Address: [address] [place] [address] Performed By: #### T SCR #### [facility] CLIA [id number] [place] [address] [place] Rh Nom (Bld) Positive [facility] Comment on above: Order Comment: Speci men Type: BLOOD SPECIMEN Order[facility] Facility: [facility] Address: [address] [place] [address] Performed By: #### T SCR #### [facility] CLIA [id number] [place] [address] [place] TYPE AND SCREEN EXPIRATION 10/14/2023 23:59 [facility] Comment on above: Order Comment: Speci men Type: BLOOD SPECIMEN Order[facility] Facility: [facility] Address: [address] [place] [address] Performed By: #### T SCR #### [facility] CLIA [id number] [place] [id number] [place] CNPNon 10-03-2023 CNPN Normal [facility] CNPNon 09-28-2023 CNPN Normal [facility] CNPNon 09-25-2023 CNPN Normal [facility] CNPNon 09-19-2023 CNPN Normal [facility] CNPNon 09-13-2023 CNPN Normal [facility] CNSWon 09-13-2023 CNSW Normal [facility] CNPNon 09-06-2023 CNPN Normal [facility] ACUTE LEUKEMIA NGS PANEL, ZEENAT NE MARROWon 08-30-2023 ACUTE LEUK NGS PANEL, BONE MARROW Normal [facility] Comment on above: Order Comment: Order ing Facility: [facility] Address: [address] [place] [address] Result Comment: Acut e Leukemia NGS Panel, Bone MarrowLaboratory Accession Number: [id number]:Please see linked document and/or separate report for full result whenavailable.As reviewed by Leslye Ha MD, PhD Performed By: #### F 3IM, HDMNGS ####[facility] LIMSCLIA [id number] [place] [address] [place] [facility] AML MRD BY FCon 08-30-2023 AML MRD BY FC View results in Scan talia Documents link when available. Normal [facility] Comment on above: Order Comment: Speci men Type: BONE MARROW SPECIMENOrdering Facility: [facility] Address: [address] [place] [address] Performed By: #### A MLMRD ####[facility] MICROCLIA [id number] [place] [address] BONE MARROW ANALYSISon 08-30 ADDENDUM 1: Normal [facility] Comment on above: Order Comment: Speci men Type: BONE MARROW SPECIMENOrdering Facility: [facility] Address: [address] [place] [address] Result Comment: Markus tional stains were performed [...] 4:58 PM Performed By: #### B MRT ####[facility] [id number] [address] ADDENDUM 2: Normal [facility] Comment on above: Order Comment: Speci men Type: BONE MARROW SPECIMENOrdering Facility: [facility] Address: [address] [place] [address] Result Comment: Stai ns were performed on both block B1, as described in the prior addendum, and block C1. The CD34 stain on block C1 shows increased staining, at least 10% of cellularity. 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 Flow cytometry MRD testing performed outside shows an abnormal myeloid blast population comprising ~6% of white cells.QDOI6Ta.R635W, NM_022552.4, c.1903C>TVAF: 17.3%RUNX1p.F40Wfs*14, NM_001754.4, c.119_173del55VAF: 9.4%TP53p.C238Y, NM_000546.5, c.713G>AVAF: 27.7%Addendum electronically signed by Phyllis Montanez MD, PhD on 09/10/2023 at 7:16 PM Performed By: #### B MRT ####[facility] LABCLIA [id number] [address] CASE REPORT Normal [facility] Comment on above: Order Comment: Speci men Type: BONE MARROW SPECIMENOrdering Facility: [facility] Address: [address] [place] [address] Result Comment: Bone Marrow Pathology Report Case: [id number] Provider: Mike Hughes MD Collected: 08/30/2023 09:12 AMOrdering Location: Hematology/Oncology Received: 08/30/2023 09:41 AMPathologist: Phyllis Montanez MD, PhDSpecimens: A) - BONE MARROW ASPIRATE RIGHT POSTERIOR ILIAC CREST B) - BONE MARROW BIOPSY RIGHT POSTERIOR ILIAC CREST C) - BONE MARROW CLOT RIGHT POSTERIOR ILIAC CREST Performed By: #### B MRT ####[facility]IA [id number] [place] [address] [place] DIAGNOSIS COMMENT Normal [facility] Comment on above: Order Comment: Rochellei luz Type: BONE MARROW SPECIMENOrdering Facility: [facility] Address: [address] [place] [address] Result Comment: The patient is a 68-year-old [...] been determined by the performing laboratory within [facility]???s Aurelio Noguera [facility] [place] ([facility], [facility], [facility], [facility], [facility], [facility], [facility], or [facility]) in a manner consistent with CLIA requirements. One or more of these tests have not been cleared or approved by the FDA. [facility] is regulated under CLIA as qualified to perform high-complexity testing. These tests are used for clinical purposes. They should not be regarded as investigational or for research. Positive and negative controls stain appropriately. Performed By: #### B MRT ####[facility] LABCLIA [id number] [place] [address] [place] FINAL DIAGNOSIS Normal [facility] Comment on above: Order Comment: Speci men Type: BONE MARROW SPECIMENOrdering Facility: [facility] Address: [address] [place] [address] Result Comment: A-C. 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, [address] [place] [address] CLIA# [id number] Director: Boris Wood M.D. Performed By: #### B MRT ####[facility] LABCLIA [id number] [address] [place] GROSS DESCRIPTION Normal [facility] Comment on above: Order Comment: Speci men Type: BONE MARROW SPECIMENOrdering Facility: [facility] Address: [address] [place] [address] Result Comment: A. B ONE MARROW ASPIRATE [...] submitted in one cassette.Gross examination performed at [facility], [address] [place] [id number] August 30, 2023 6:48 PM Performed By: #### B MRT ####[facility] LABCLIA [id number] [facility] [id number] [address] [place] MICROSCOPIC DESCRIPTION Normal [facility] Comment on above: Order Comment: Speci men Type: BONE MARROW SPECIMENOrdering Facility: [facility] Address: [address] [place] [address] Result Comment: GENNY PHERAL BLOOD: Not providedBONE [...] panel pending. Performed By: #### B MRT ####[facility] LABCLIA [id number] [facility] [id number] [address] [place] BONE MARROW CHROMOSOME ANALo n 08-30-2023 CHROMOSOME BM Normal [facility] Comment on above: Order Comment: Order ing Facility: [facility] Address: [address] [place] [address] Result Comment: Edel knight Accession Number: [id number]: Avila MoorePathologist: Jeet Pathology No: [id number] diagnosis: AMLSpecimen Type: Bone MarrowReceived Date: 08/30/2023Number [...] recommended.As reviewed by Dilan Frazier MDPerformed by [facility] CenterPathology and Laboratory Medicine InstituteDivision of Molecular PathologyCytogenetics Lab, [id number] [place], [place] [address]Phone: Toll free: Performed By: #### C HRBM ####[facility] LIMSCLIA [id number] [place] [address] [place] BRIEF OP NOTon 08-30-2023 BRIEF OP NOT Normal [facility] CT ABD/PEL WO IVCONon 2022 CT ABD/PEL WO IVCON Normal [facility] CT BIOPSY BONE MARROW (HEMO) on 08-30-2023 CT BIOPSY BONE MARROW (HEMO) Normal [facility] CT CHEST WO IVCONon 08-30-20 CT CHEST WO IVCON Normal [facility] DNA EXTRACTION BONE MARROW ( BUFFY COAT)on 08-30-2023 DNA EXTRACTION BONE MARROW (BUFFY COAT) Normal [facility] Comment on above: Order Comment: Speci men Type: BONE MARROW SPECIMENOrdering Facility: [facility] Address: [address] [place] [address] Result Comment: This specimen was received and successfully processed for future DNA purification should molecular testing be needed. Specimens will be available for 3 years from date of collection.To order testing on this specimen for [facility] patients, please place an [facility] order for DNA and RNA Clinical Testing ([id number]). To order testing for patients outside of the [facility] system, please request DNA and RNA for Clinical Testing, order code [id number].If additional paperwork is required for testing, please send completed forms via secure email to . Performed By: #### N UCBUF ####[facility] LIMSCLIA [id number] [place] [id number] [place] FLOW CYTOMETRY FOR LEUKEMIA/ LYMPHOMA (FCLL) PERFORMABLEon 08-30-2023 FLOW CYTOMETRY ORDER STATUS See Results in chart under F case ID Normal [facility] Comment on above: Order Comment: Speci men Type: BONE MARROW SPECIMENOrdering Facility: [facility] Address: [address] [place] [address] Performed By: #### F CLLP, FCLLRFLX ####[facility] LABCLIA [id number] [place] [address] [place] FLOW CYTOMETRY FOR LEUKEMIA/ LYMPHOMA (FCLL) REFLEXon 08-30-2023 DIAGNOSIS COMMENT Normal [facility] Comment on above: Order Comment: Speci men Type: BONE MARROW SPECIMENOrdering Facility: [facility] Address: [address] [place] [address] Result Comment: This test was developed and its performance characteristics determined by [facility]'s [facility] Pathology and Laboratory Medicine [place] ([facility]). It has not been cleared or approved by the FDA. -[facility] is regulated under CLIA as qualified to perform high-complexity testing. This test is used for clinical purposes. It should not be regarded as investigational or for research. Performed By: #### F CLLP, FCLLRFLX ####[facility] LABCLIA [id number] [address] [place] FINAL PERFORMING LAB Normal [facility] Comment on above: Order Comment: Speci men Type: BONE MARROW SPECIMENOrdering Facility: [facility] Address: [address] [place] [address] Result Comment: Diag nostic interpretation performed at [facility], [address] [address] CLIA# [id number] Director: Boris Wood M.D. Performed By: #### F CLLP, FCLLRFLX ####[facility] LABCLIA [id number] [place] [address] [place] FLOW CYTOMETRY RESULTS Normal [facility] Comment on above: Order Comment: Speci men Type: BONE MARROW SPECIMENOrdering Facility: [facility] Address: [address] [place] [address] Result Comment: Spec imen type: Bone marrow aspirateViability: 96%Results: % total eventsLymphocyte gate: 66Granulocyte gate: 5Monocyte gate: 1Blast gate: 6Flow Cytometry Bone Marrow ImmunophenotypingMarker Normal Cell Type Result (Blasts)CD2 T/NK cells NegativeCD3 T-cells NegativeCD4 T-cell subset NegativeCD5 T-cells NegativeCD7 T/NK-cells Dim (subset)CD8 T-cell subset AjdpzormCE82 B-cell subset FjlowkhsBU54c Myeloid KvbaougdGH33 Myeloid UprkvqvcUQ91 Monocytes ShbueagmSV90 Myeloid XvevyocpAZ16 B-cells IwyiquccWC12 B-cells NbcfuhnkCJ44 B-cells UwgajxymHF09 Myeloid FygwdmvhLH66 Blasts WfwwxzwcDT12 Activation UjredvktOM90 Hough-leukocyte Positive (dim)CD56 T/NK-cells DzqjlrduTV33 Myeloid IkfnvwtxLR45 Myeloid AdiotfxrRL596 Blasts Positive (subset)HLA-DR B-cells Positivekappa/lambda B-cells NegativeFlow [...] assay. Performed By: #### F CLLP, FCLLRFLX ####[facility] LABIA [id number] [place] [address] [place] GROSS DESCRIPTION A. Bone Marrow Normal [facility] Comment on above: Order Comment: Speci men Type: BONE MARROW SPECIMENOrdering Facility: [facility] Address: [address] [place] [address] Result Comment: Rece ived 1 mL of bone marrow in heparin. Clots removed. Performed By: #### F CLLP, FCLLRFLX ####[facility] LABCLIA [id number] [place] [address] [place] INTERPRETATION Normal [facility] Comment on above: Order Comment: Elvia escobar Type: BONE MARROW SPECIMENOrdering Facility: [facility] Address: [address] [place] [address] Result Comment: An i ncreased, atypical myeloid [...] 08/30/2023 Performed By: #### F CLLP, FCLLRFLX ####[facility] LABCLIA [id number] [place] [address] [place] FLT3 ITD HN BONE MARROWon CLARITY SIGNOUT PATHOLOGIST [id number] Normal [facility] Comment on above: Order Comment: Elvia escobar Type: BONE MARROW SPECIMENOrdering Facility: [facility] Address: [address] [place] [address] Performed By: #### F 3IM, HDMNGS ####[facility] LIMSCLIA [id number] [place] [address] [place] FLT3 ITD HN PANEL BONE MARROW Normal [facility] Comment on above: Order Comment: Elvia escobar Type: BONE MARROW SPECIMENOrdering Facility: [facility] Address: [address] [place] [address] Result Comment: FLT3 Internal Tandem Duplication (ITD) Mutation TestingLaboratory Accession Number: [id number] Internal Tandem Duplication (ITD) mutation: Not DetectedComment:FLT3/ITD [...] from the specimen provided. Regions of the YTK6oqhmeueq kinase receptor gene are subjected to the [...] within myeloid neoplasms.References:1) Veda MP, Lisbeth P, Rosa Mariai E, et al. Mutational landscapeof AML with normal cytogenetics: biological and clinical implications.Blood Rev.2013;27:13-22.2) Juan KRISHNA, Ros M, Lu ME, et al. Prognostic relevance ofintegrated genetic profiling in acute myeloid leukemia. N Engl J Med.2011Nov 22;366 (12):1079-89.3) Cristianer H, Dee E, Sharon D, et al. Diagnosis and mangement ofAML in adults: 2017 ELN recommendations from an international expertpanel. Blood 129,424-448 (2017).Disclaimer:This test was developed and its performance characteristics determinedby [facility]'s [facility] Pathology and LaboratoryMedicine [place] ([facility]). It has not been cleared or approved bythe FDA. -[facility] is regulated under CLIA as certified to perform high-complexity testing. This test is used for clinical purposes. It shouldnot be regarded as investigational or for research.Testing and interpretation performed at [facility], [address] [place] [address]. CLIA Number: [id number] reviewed by Mihaela Flowers MD Performed By: #### F 3IM, HDMNGS ####[facility] LIMSCLIA [id number] [place] [address] [place] HISTORY PHYSICALon HISTORY PHYSICAL Normal [facility] NURSING PROGon 08-30-2023 NURSING PROG Normal [facility] PT EDon 08-30-2023 PT ED Normal [facility] CNPNon 08-22-2023 CNPN Normal [facility] NURSING PROGon 08-22-2023 NURSING PROG Normal [facility] CNPNon 08-20-2023 CNPN Normal [facility] CNCOon 08-15-2023 CNCO Clinical report post ed in error Void Comment: BMT CALENDAR Letter Text Letter Text Normal [facility] CNPNon 08-15-2023 CNPN Normal [facility] CNSWon 08-15-2023 CNSW Normal [facility] CNPNon 08-13-2023 CNPN Normal [facility] CNPNon 08-09-2023 CNPN Normal [facility] CNPNon 08-08-2023 CNPN Normal [facility] CNPNon 08-07-2023 CNPN Normal [facility] CNCOon 08-06-2023 CNCO Clinical report post ed in error Void Comment: HPC Transplant LMN Letter Text Letter Text Normal [facility] CNCO Letter Text Normal [facility] CASE MANAGEMon 07-18-2023 CASE MANAGEM Normal [facility] CBC W Auto Differential pane l (Bld)on 07-18-2023 Basophils (Bld) [#/Vol] Normal [facility] Comment on above: Order Comment: Speci men Type: BLOOD SPECIMENOrdering Facility: [facility] Address: [address] [place] [address] Result Comment: Too Few Cells To Do Differential. Performed By: #### 5 7021-8 ####[facility] LABCLIA [id number] [place] [address] [place] Basophils/100 WBC (Bld) Normal [facility] Comment on above: Order Comment: Speci men Type: BLOOD SPECIMENOrdering Facility: [facility] Address: [address] [place] [address] Result Comment: Too Few Cells To Do Differential. Performed By: #### 5 7021-8 ####[facility] LABCLIA [id number] [place] [address] [place] Differential cell count method Nom (Bld) Auto Normal [facility] Comment on above: Order Comment: Speci men Type: BLOOD SPECIMENOrdering Facility: [facility] Address: [address] [place] [address] Performed By: #### 5 7021-8 ####[facility] LABCLIA [id number] [place] [address] [place] Eosinophils (Bld) [#/Vol] Normal [facility] Comment on above: Order Comment: Speci men Type: BLOOD SPECIMENOrdering Facility: [facility] Address: [address] [place] [address] Result Comment: Too Few Cells To Do Differential. Performed By: #### 5 7021-8 ####[facility] LABCLIA [id number] [place] [address] [place] Eosinophils/100 WBC (Bld) Normal [facility] Comment on above: Order Comment: Speci men Type: BLOOD SPECIMENOrdering Facility: [facility] Address: [address] [place] [address] Result Comment: Too Few Cells To Do Differential. Performed By: #### 5 7021-8 ####[facility] LABCLIA [id number] [place] [address] [place] Erythrocyte distribution width (RBC) [Ratio] 15.8 % High 11.5-15.0 [facility] Comment on above: Order Comment: Speci men Type: BLOOD SPECIMENOrdering Facility: [facility] Address: [address] [place] [address] Performed By: #### 5 7021-8 ####[facility] LABCLIA [id number] [place] [address] [place] Hematocrit (Bld) [Volume fraction] 22.8 % Low 36.0-46.0 [facility] Comment on above: Order Comment: Speci men Type: BLOOD SPECIMENOrdering Facility: [facility] Address: [address] [place] [address] Performed By: #### 5 7021-8 ####[facility] LABCLIA [id number] [place] [address] [place] Hemoglobin (Bld) [Mass/Vol] 7.8 g/dL Low 11.5-15.5 [facility] Comment on above: Order Comment: Speci men Type: BLOOD SPECIMENOrdering Facility: [facility] Address: [address] [place] [address] Performed By: #### 5 7021-8 ####[facility] LABCLIA [id number] [place] [address] [place] Immature granulocytes (Bld) [#/Vol] Normal [facility] Comment on above: Order Comment: Speci men Type: BLOOD SPECIMENOrdering Facility: [facility] Address: [address] [place] [address] Result Comment: Too Few Cells To Do Differential. Performed By: #### 5 7021-8 ####[facility] LABIA [id number] [place] [address] [place] Immature granulocytes/100 WBC (Bld) Normal [facility] Comment on above: Order Comment: Speci men Type: BLOOD SPECIMENOrdering Facility: [facility] Address: [address] [place] [address] Result Comment: Too Few Cells To Do Differential. Performed By: #### 5 7021-8 ####[facility] LABCLIA [id number] [place] [address] [place] Lymphocytes (Bld) [#/Vol] Normal [facility] Comment on above: Order Comment: Speci men Type: BLOOD SPECIMENOrdering Facility: [facility] Address: [address] [place] [address] Result Comment: Too Few Cells To Do Differential. Performed By: #### 5 7021-8 ####[facility] LABCLIA [id number] [place] [address] [place] Lymphocytes/100 WBC (Bld) Normal [facility] Comment on above: Order Comment: Speci men Type: BLOOD SPECIMENOrdering Facility: [facility] Address: [address] [place] [address] Result Comment: Too Few Cells To Do Differential. Performed By: #### 5 7021-8 ####[facility] LABCLIA [id number] [place] [address] [place] MCH (RBC) [Entitic mass] 30.1 pg Normal 26.0-34.0 [facility] Comment on above: Order Comment: Speci men Type: BLOOD SPECIMENOrdering Facility: [facility] Address: [address] [place] [address] Performed By: #### 5 7021-8 ####[facility] LABIA [id number] [place] [address] [place] MCHC (RBC) [Mass/Vol] 34.2 g/dL Normal 30.5-36.0 [facility] Comment on above: Order Comment: Speci men Type: BLOOD SPECIMENOrdering Facility: [facility] Address: [address] [place] [address] Performed By: #### 5 7021-8 ####[facility] LABIA [id number] [place] [address] [place] MCV (RBC) [Entitic vol] 88.0 fL Normal 80.0-100.0 [facility] Comment on above: Order Comment: Speci men Type: BLOOD SPECIMENOrdering Facility: [facility] Address: [address] [place] [address] Performed By: #### 5 7021-8 ####[facility] LABCLIA [id number] [place] [address] [place] Monocytes (Bld) [#/Vol] Normal [facility] Comment on above: Order Comment: Speci men Type: BLOOD SPECIMENOrdering Facility: [facility] Address: [address] [place] [address] Result Comment: Too Few Cells To Do Differential. Performed By: #### 5 7021-8 ####[facility] LABCLIA [id number] [place] [address] [place] Monocytes/100 WBC (Bld) Normal [facility] Comment on above: Order Comment: Speci men Type: BLOOD SPECIMENOrdering Facility: [facility] Address: [address] [place] [address] Result Comment: Too Few Cells To Do Differential. Performed By: #### 5 7021-8 ####[facility] LABCLIA [id number] [place] [address] [place] Neutrophils (Bld) [#/Vol] Normal [facility] Comment on above: Order Comment: Speci men Type: BLOOD SPECIMENOrdering Facility: [facility] Address: [address] [place] [address] Result Comment: Too Few Cells To Do Differential. Performed By: #### 5 7021-8 ####[facility] LABCLIA [id number] [place] [address] [place] Neutrophils/100 WBC (Bld) Normal [facility] Comment on above: Order Comment: Speci men Type: BLOOD SPECIMENOrdering Facility: [facility] Address: [address] [place] [address] Result Comment: Too Few Cells To Do Differential. Performed By: #### 5 7021-8 ####[facility] LABCLIA [id number] [place] [address] [place] Nucleated RBC (Bld) [#/Vol] 10*3/uL Normal <0.01 [facility] Comment on above: Order Comment: Speci men Type: BLOOD SPECIMENOrdering Facility: [facility] Address: [address] [place] [address] Performed By: #### 5 7021-8 ####[facility] LABCLIA [id number] [place] [address] [place] Nucleated RBC/100 WBC (Bld) [Ratio] 0.0 /100 WBC Normal [facility] Comment on above: Order Comment: Speci men Type: BLOOD SPECIMENOrdering Facility: [facility] Address: [address] [place] [address] Performed By: #### 5 7021-8 ####[facility] LABIA [id number] [place] [address] [place] Platelet mean volume (Bld) [Entitic vol] Normal [facility] Comment on above: Order Comment: Speci men Type: BLOOD SPECIMENOrdering Facility: [facility] Address: [address] [place] [address] Result Comment: Unab le to Report. Performed By: #### 5 7021-8 ####[facility] LABIA [id number] [place] [address] [place] Platelets (Bld) [#/Vol] 18 10*3/uL Low 150-400 [facility] Comment on above: Order Comment: Speci men Type: BLOOD SPECIMENOrdering Facility: [facility] Address: [address] [place] [address] Result Comment: Resu lts checked and verified.No clot detected. Performed By: #### 5 7021-8 ####[facility] LABIA [id number] [place] [address] [place] RBC (Bld) [#/Vol] 2.59 10*6/uL Low 3.90-5.20 [facility] Comment on above: Order Comment: Speci men Type: BLOOD SPECIMENOrdering Facility: [facility] Address: [address] [place] [address] Performed By: #### 5 7021-8 ####[facility] LABCLIA [id number] [place] [address] [place] WBC (Bld) [#/Vol] 0.47 10*3/uL Low 3.70-11.00 [facility] Comment on above: Order Comment: Speci men Type: BLOOD SPECIMENOrdering Facility: [facility] Address: [address] [place] [address] Result Comment: No c lot detected. Too Few Cells To Do Differential Performed By: #### 5 7021-8 ####[facility] LABIA [id number] [place] [address] [place] CNCOon 07-18-2023 CNCO Letter Text Normal [facility] CNDSon 07-18-2023 CNDS Normal [facility] CONSULT PROGon 07-18-2023 CONSULT PROG Normal [facility] Comprehensive metabolic 2000 panelon 07-18-2023 Albumin [Mass/Vol] 2.3 g/dL Low 3.9-4.9 [facility] Comment on above: Order Comment: Speci men Type: BLOOD SPECIMENOrdering Facility: [facility] Address: [address] [place] [address] Performed By: #### 2 4323-8, ####[facility] LABCLIA [id number] [place] [address] [place] ALP [Catalytic activity/Vol] 50 U/L Normal 34-123 [facility] Comment on above: Order Comment: Speci men Type: BLOOD SPECIMENOrdering Facility: [facility] Address: [address] [place] [address] Performed By: #### 2 4323-8, ####[facility] LABCLIA [id number] [place] [address] [place] ALT [Catalytic activity/Vol] 14 U/L Normal 7-38 [facility] Comment on above: Order Comment: Speci men Type: BLOOD SPECIMENOrdering Facility: [facility] Address: [address] [place] [address] Performed By: #### 2 432-8, ####[facility] LABCLIA [id number] [address] [address] [place] Anion gap [Moles/Vol] 8 mmol/L Low 9-18 [facility] Comment on above: Order Comment: Speci men Type: BLOOD SPECIMENOrdering Facility: [facility] Address: [address] [place] [address] Performed By: #### 2 432-8, ####[facility] LABCLIA [id number] [place] [address] [place] AST [Catalytic activity/Vol] 14 U/L Normal 13-35 [facility] Comment on above: Order Comment: Speci men Type: BLOOD SPECIMENOrdering Facility: [facility] Address: [address] [place] [address] Performed By: #### 2 432-8, ####[facility] LABCLIA [id number] [place] [address] [place] Bilirubin [Mass/Vol] 0.3 mg/dL Normal 0.2-1.3 [facility] Comment on above: Order Comment: Speci men Type: BLOOD SPECIMENOrdering Facility: [facility] Address: [address] [place] [address] Performed By: #### 2 4323-8, ####[facility] LABCLIA [id number] [place] [id number] [place] Calcium [Mass/Vol] 7.2 mg/dL Low 8.5-10.2 [facility] Comment on above: Order Comment: Speci men Type: BLOOD SPECIMENOrdering Facility: [facility] Address: [address] [place] [address] Performed By: #### 2 4323-8, ####[facility] LABCLIA [id number] [address] [address] [place] Chloride [Moles/Vol] 110 mmol/L High 97-105 [facility] Comment on above: Order Comment: Speci men Type: BLOOD SPECIMENOrdering Facility: [facility] Address: [address] [place] [address] Performed By: #### 2 4323-8, ####[facility] LABCLIA [id number] [place] [address] [place] CO2 [Moles/Vol] 23 mmol/L Normal 22-30 [facility] Comment on above: Order Comment: Speci men Type: BLOOD SPECIMENOrdering Facility: [facility] Address: [address] [place] [address] Performed By: #### 2 4323-8, ####[facility] LABCLIA [id number] [place] [address] [place] Creatinine [Mass/Vol] 0.66 mg/dL Normal 0.58-0.96 [facility] Comment on above: Order Comment: Speci men Type: BLOOD SPECIMENOrdering Facility: [facility] Address: [address] [place] [address] Performed By: #### 2 4323-8, ####[facility] LABCLIA [id number] [place] [id number] [place] Creatinine and Glomerular filtration rate.predicted panel (S/P/Bld) 95 mL/min/1.73m??? Normal >=60 [facility] Comment on above: Order Comment: Speci men Type: BLOOD SPECIMENOrdering Facility: [facility] Address: [address] [place] [address] Result Comment: Berenice mated Glomerular Filtration Rate [...] reflect actual GFR. Performed By: #### 2 432-8, ####[facility] LABCLIA [id number] [place] [address] [place] Glucose [Mass/Vol] 85 mg/dL Normal 74-99 [facility] Comment on above: Order Comment: Speci men Type: BLOOD SPECIMENOrdering Facility: [facility] Address: [address] [place] [address] Result Comment: The [place] Diabetes Association (ADA) provides guidance for cutoff [...] Standards of Medical Care in Diabetes 2016, [place] Diabetes Association. Diabetes Care. 2016.39(Suppl 1). Performed By: #### 2 43211-08, ####[facility] LABCLIA [id number] [place] [id number] [place] Potassium [Moles/Vol] 2.9 mmol/L Low 3.7-5.1 [facility] Comment on above: Order Comment: Speci men Type: BLOOD SPECIMENOrdering Facility: [facility] Address: [address] [place] [address] Performed By: #### 2 43211-08, ####[facility] LABCLIA [id number] [place] [id number] [place] Protein [Mass/Vol] 4.1 g/dL Low 6.3-8.0 [facility] Comment on above: Order Comment: Speci men Type: BLOOD SPECIMENOrdering Facility: [facility] Address: [address] [place] [address] Performed By: #### 2 4323-8, ####[facility] LABCLIA [id number] [place] [address] [place] Sodium [Moles/Vol] 141 mmol/L Normal 136-144 [facility] Comment on above: Order Comment: Speci men Type: BLOOD SPECIMENOrdering Facility: [facility] Address: [address] [place] [address] Performed By: #### 2 4323-8, ####[facility] LABCLIA [id number] [place] [address] [place] Urea nitrogen [Mass/Vol] 5 mg/dL Low 7-21 [facility] Comment on above: Order Comment: Speci men Type: BLOOD SPECIMENOrdering Facility: [facility] Address: [address] [place] [address] Performed By: #### 2 432-8, ####[facility] LABCLIA [id number] [place] [address] [place] Magnesium SerPl-mCncon 07-18 Magnesium [Mass/Vol] 1.9 mg/dL Normal 1.7-2.3 [facility] Comment on above: Order Comment: Speci men Type: BLOOD SPECIMENOrdering Facility: [facility] Address: [address] [place] [address] Performed By: #### 2 4323-8, ####[facility] LABCLIA [id number] [place] [address] [place] POTASSIUM BLDon 07-18-2023 Potassium [Moles/Vol] 4.0 mmol/L Normal 3.7-5.1 [facility] Comment on above: Order Comment: Speci men Type: BLOOD SPECIMENOrdering Facility: [facility] Address: [address] [place] [address] Performed By: #### K 1 ####[facility] LABCLIA [id number] [place] [address] [place] CASE MGT INIT ASSESon 2022 CASE MGT INIT ASSES Normal [facility] CASE MGT INIT ASSES Normal [facility] CBC W Auto Differential pane l (Bld)on 07-17-2023 Basophils (Bld) [#/Vol] Normal [facility] Comment on above: Order Comment: Speci men Type: BLOOD SPECIMENOrdering Facility: [facility] Address: [address] [place] [address] Result Comment: Too Few Cells To Do Differential. Performed By: #### 5 7021-8 ####[facility] LABCLIA [id number] [place] [address] [place] Basophils/100 WBC (Bld) Normal [facility] Comment on above: Order Comment: Speci men Type: BLOOD SPECIMENOrdering Facility: [facility] Address: [address] [place] [address] Result Comment: Too Few Cells To Do Differential. Performed By: #### 5 7021-8 ####[facility] LABCLIA [id number] [place] [address] [place] Differential cell count method Nom (Bld) Auto Normal [facility] Comment on above: Order Comment: Speci men Type: BLOOD SPECIMENOrdering Facility: [facility] Address: [address] [place] [address] Performed By: #### 5 7021-8 ####[facility] LABCLIA [id number] [place] [address] [place] Eosinophils (Bld) [#/Vol] Normal [facility] Comment on above: Order Comment: Speci men Type: BLOOD SPECIMENOrdering Facility: [facility] Address: [address] [place] [address] Result Comment: Too Few Cells To Do Differential. Performed By: #### 5 7021-8 ####[facility] LABCLIA [id number] [place] [address] [place] Eosinophils/100 WBC (Bld) Normal [facility] Comment on above: Order Comment: Speci men Type: BLOOD SPECIMENOrdering Facility: [facility] Address: [address] [place] [address] Result Comment: Too Few Cells To Do Differential. Performed By: #### 5 7021-8 ####[facility] LABCLIA [id number] [place] [address] [place] Erythrocyte distribution width (RBC) [Ratio] 15.9 % High 11.5-15.0 [facility] Comment on above: Order Comment: Speci men Type: BLOOD SPECIMENOrdering Facility: [facility] Address: [address] [place] [address] Performed By: #### 5 7021-8 ####[facility] LABIA [id number] [place] [address] [place] Hematocrit (Bld) [Volume fraction] 23.0 % Low 36.0-46.0 [facility] Comment on above: Order Comment: Speci men Type: BLOOD SPECIMENOrdering Facility: [facility] Address: [address] [place] [address] Performed By: #### 5 7021-8 ####[facility] LABCLIA [id number] [place] [address] [place] Hemoglobin (Bld) [Mass/Vol] 7.9 g/dL Low 11.5-15.5 [facility] Comment on above: Order Comment: Speci men Type: BLOOD SPECIMENOrdering Facility: [facility] Address: [address] [place] [address] Performed By: #### 5 7021-8 ####[facility] LABCLIA [id number] [place] [address] [place] Immature granulocytes (Bld) [#/Vol] Normal [facility] Comment on above: Order Comment: Speci men Type: BLOOD SPECIMENOrdering Facility: [facility] Address: [address] [place] [address] Result Comment: Too Few Cells To Do Differential. Performed By: #### 5 7021-8 ####[facility] LABCLIA [id number] [place] [address] [place] Immature granulocytes/100 WBC (Bld) Normal [facility] Comment on above: Order Comment: Speci men Type: BLOOD SPECIMENOrdering Facility: [facility] Address: [address] [place] [address] Result Comment: Too Few Cells To Do Differential. Performed By: #### 5 7021-8 ####[facility] LABCLIA [id number] [place] [address] [place] Lymphocytes (Bld) [#/Vol] Normal [facility] Comment on above: Order Comment: Speci men Type: BLOOD SPECIMENOrdering Facility: [facility] Address: [address] [place] [address] Result Comment: Too Few Cells To Do Differential. Performed By: #### 5 7021-8 ####[facility] LABCLIA [id number] [place] [address] [place] Lymphocytes/100 WBC (Bld) Normal [facility] Comment on above: Order Comment: Speci men Type: BLOOD SPECIMENOrdering Facility: [facility] Address: [address] [place] [address] Result Comment: Too Few Cells To Do Differential. Performed By: #### 5 7021-8 ####[facility] LABCLIA [id number] [place] [address] [place] MCH (RBC) [Entitic mass] 29.9 pg Normal 26.0-34.0 [facility] Comment on above: Order Comment: Speci men Type: BLOOD SPECIMENOrdering Facility: [facility] Address: [address] [place] [address] Performed By: #### 5 7021-8 ####[facility] LABCLIA [id number] [place] [address] [place] MCHC (RBC) [Mass/Vol] 34.3 g/dL Normal 30.5-36.0 [facility] Comment on above: Order Comment: Speci men Type: BLOOD SPECIMENOrdering Facility: [facility] Address: [address] [place] [address] Performed By: #### 5 7021-8 ####[facility] LABIA [id number] [place] [address] [place] MCV (RBC) [Entitic vol] 87.1 fL Normal 80.0-100.0 [facility] Comment on above: Order Comment: Speci men Type: BLOOD SPECIMENOrdering Facility: [facility] Address: [address] [place] [address] Performed By: #### 5 7021-8 ####[facility] LABCLIA [id number] [place] [address] [place] Monocytes (Bld) [#/Vol] Normal [facility] Comment on above: Order Comment: Speci men Type: BLOOD SPECIMENOrdering Facility: [facility] Address: [address] [place] [address] Result Comment: Too Few Cells To Do Differential. Performed By: #### 5 7021-8 ####[facility] LABCLIA [id number] [place] [address] [place] Monocytes/100 WBC (Bld) Normal [facility] Comment on above: Order Comment: Speci men Type: BLOOD SPECIMENOrdering Facility: [facility] Address: [address] [place] [address] Result Comment: Too Few Cells To Do Differential. Performed By: #### 5 7021-8 ####[facility] LABCLIA [id number] [place] [address] [place] Neutrophils (Bld) [#/Vol] Normal [facility] Comment on above: Order Comment: Speci men Type: BLOOD SPECIMENOrdering Facility: [facility] Address: [address] [place] [address] Result Comment: Too Few Cells To Do Differential. Performed By: #### 5 7021-8 ####[facility] LABIA [id number] [place] [address] [place] Neutrophils/100 WBC (Bld) Normal [facility] Comment on above: Order Comment: Speci men Type: BLOOD SPECIMENOrdering Facility: [facility] Address: [address] [place] [address] Result Comment: Too Few Cells To Do Differential. Performed By: #### 5 7021-8 ####[facility] LABIA [id number] [place] [address] [place] Nucleated RBC (Bld) [#/Vol] 10*3/uL Normal <0.01 [facility] Comment on above: Order Comment: Speci men Type: BLOOD SPECIMENOrdering Facility: [facility] Address: [address] [place] [address] Performed By: #### 5 7021-8 ####[facility] LABIA [id number] [place] [address] [place] Nucleated RBC/100 WBC (Bld) [Ratio] 0.0 /100 WBC Normal [facility] Comment on above: Order Comment: Speci men Type: BLOOD SPECIMENOrdering Facility: [facility] Address: [address] [place] [address] Performed By: #### 5 7021-8 ####[facility] LABIA [id number] [place] [address] [place] Platelet mean volume (Bld) [Entitic vol] Normal [facility] Comment on above: Order Comment: Speci men Type: BLOOD SPECIMENOrdering Facility: [facility] Address: [address] [place] [address] Result Comment: Unab le to Report. Performed By: #### 5 7021-8 ####[facility] LABCLIA [id number] [place] [address] [place] Platelets (Bld) [#/Vol] 8 10*3/uL Critically low 150-400 [facility] Comment on above: Order Comment: Speci men Type: BLOOD SPECIMENOrdering Facility: [facility] Address: [address] [place] [address] Result Comment: Resu lts checked and verified.No clot detected. Performed By: #### 5 7021-8 ####[facility] LABCLIA [id number] [place] [address] [place] RBC (Bld) [#/Vol] 2.64 10*6/uL Low 3.90-5.20 [facility] Comment on above: Order Comment: Speci men Type: BLOOD SPECIMENOrdering Facility: [facility] Address: [address] [place] [address] Performed By: #### 5 7021-8 ####[facility] LABCLIA [id number] [place] [address] [place] WBC (Bld) [#/Vol] 0.48 10*3/uL Low 3.70-11.00 [facility] Comment on above: Order Comment: Speci men Type: BLOOD SPECIMENOrdering Facility: [facility] Address: [address] [place] [address] Result Comment: Resu lts checked and verified.No clot detected. Too Few Cells To Do Differential Performed By: #### 5 7021-8 ####[facility] LABCLIA [id number] [place] [address] [place] Comprehensive metabolic 2000 panelon 07-17-2023 Albumin [Mass/Vol] 2.3 g/dL Low 3.9-4.9 [facility] Comment on above: Order Comment: Speci men Type: BLOOD SPECIMENOrdering Facility: [facility] Address: [address] [place] [address] Performed By: #### 1 9123-9, ####[facility] LABCLIA [id number] [place] [address] [place] ALP [Catalytic activity/Vol] 61 U/L Normal 34-123 [facility] Comment on above: Order Comment: Speci men Type: BLOOD SPECIMENOrdering Facility: [facility] Address: [address] [place] [address] Performed By: #### 1 9123-9, ####[facility] LABCLIA [id number] [place] [address] [place] ALT [Catalytic activity/Vol] 15 U/L Normal 7-38 [facility] Comment on above: Order Comment: Speci men Type: BLOOD SPECIMENOrdering Facility: [facility] Address: [address] [place] [address] Performed By: #### 1 9123-9, ####[facility] LABCLIA [id number] [place] [address] [place] Anion gap [Moles/Vol] 11 mmol/L Normal 9-18 [facility] Comment on above: Order Comment: Speci men Type: BLOOD SPECIMENOrdering Facility: [facility] Address: [address] [place] [address] Performed By: #### 1 9123-9, ####[facility] LABCLIA [id number] [place] [address] [place] AST [Catalytic activity/Vol] 15 U/L Normal 13-35 [facility] Comment on above: Order Comment: Speci men Type: BLOOD SPECIMENOrdering Facility: [facility] Address: [address] [place] [address] Performed By: #### 1 9123-9, ####[facility] LABCLIA [id number] [place] [address] [place] Bilirubin [Mass/Vol] 0.6 mg/dL Normal 0.2-1.3 [facility] Comment on above: Order Comment: Speci men Type: BLOOD SPECIMENOrdering Facility: [facility] Address: [address] [place] [address] Performed By: #### 1 23-9, ####[facility] LABCLIA [id number] [place] [address] [place] Calcium [Mass/Vol] 8.1 mg/dL Low 8.5-10.2 [facility] Comment on above: Order Comment: Speci men Type: BLOOD SPECIMENOrdering Facility: [facility] Address: [address] [place] [address] Performed By: #### 1 239, ####[facility] LABCLIA [id number] [place] [address] [place] Chloride [Moles/Vol] 106 mmol/L High 97-105 [facility] Comment on above: Order Comment: Speci men Type: BLOOD SPECIMENOrdering Facility: [facility] Address: [address] [place] [address] Performed By: #### 1 23-9, ####[facility] LABCLIA [id number] [place] [address] [place] CO2 [Moles/Vol] 21 mmol/L Low 22-30 [facility] Comment on above: Order Comment: Speci men Type: BLOOD SPECIMENOrdering Facility: [facility] Address: [address] [place] [address] Performed By: #### 1 9123-9, ####[facility] LABCLIA [id number] [place] [address] [place] Creatinine [Mass/Vol] 0.78 mg/dL Normal 0.58-0.96 [facility] Comment on above: Order Comment: Elvia escobar Type: BLOOD SPECIMENOrdering Facility: [facility] Address: [address] [place] [address] Performed By: #### 1 9123-9, 65634-5 ####[facility] LABCLIA [id number] [place] [address] [place] Creatinine and Glomerular filtration rate.predicted panel (S/P/Bld) 82 mL/min/1.73m??? Normal >=60 [facility] Comment on above: Order Comment: Elvia escobar Type: BLOOD SPECIMENOrdering Facility: [facility] Address: [address] [place] [address] Result Comment: Berenice mated Glomerular Filtration Rate [...] actual GFR. Performed By: #### 1 9123-9, 11500-8 ####[facility] LABCLIA [id number] [place] [address] [place] Glucose [Mass/Vol] 104 mg/dL High 74-99 [facility] Comment on above: Order Comment: Elvia escobar Type: BLOOD SPECIMENOrdering Facility: [facility] Address: [address] [place] [address] Result Comment: The [place] [employer] Association (ADA) provides guidance for cutoff [...] Standards of Medical Care in Diabetes 2016, [place] [employer] Association. Diabetes Care. 2016.39(Suppl 1). Performed By: #### 1 23-9, ####[facility] LABCLIA [id number] [place] [address] [place] Potassium [Moles/Vol] 3.5 mmol/L Low 3.7-5.1 [facility] Comment on above: Order Comment: Speci men Type: BLOOD SPECIMENOrdering Facility: [facility] Address: [address] [place] [address] Performed By: #### 1 9122-9, ####[facility] LABIA [id number] [place] [address] [place] Protein [Mass/Vol] 4.5 g/dL Low 6.3-8.0 [facility] Comment on above: Order Comment: Speci men Type: BLOOD SPECIMENOrdering Facility: [facility] Address: [address] [place] [address] Performed By: #### 1 239, ####[facility] LABIA [id number] [place] [address] [place] Sodium [Moles/Vol] 138 mmol/L Normal 136-144 [facility] Comment on above: Order Comment: Speci men Type: BLOOD SPECIMENOrdering Facility: [facility] Address: [address] [place] [address] Performed By: #### 1 239, ####[facility] LABIA [id number] [place] [address] [place] Urea nitrogen [Mass/Vol] 7 mg/dL Normal 7-21 [facility] Comment on above: Order Comment: Speci men Type: BLOOD SPECIMENOrdering Facility: [facility] Address: [address] [place] [address] Performed By: #### 1 239, ####[facility] LABCLIA [id number] [place] [address] [place] Magnesium SerPl-mCncon 07-17 Magnesium [Mass/Vol] 2.0 mg/dL Normal 1.7-2.3 [facility] Comment on above: Order Comment: Speci men Type: BLOOD SPECIMENOrdering Facility: [facility] Address: [address] [place] [address] Performed By: #### 1 9123-9, ####[facility] LABCLIA [id number] [place] [address] [place] SOCIAL WORKon 07-17-2023 SOCIAL WORK Normal [facility] THERAPY NTon 07-17-2023 THERAPY NT Normal [facility] CBC W Auto Differential pane l (Bld)on 07-16-2023 Basophils (Bld) [#/Vol] Normal [facility] Comment on above: Order Comment: Speci men Type: BLOOD SPECIMENOrdering Facility: [facility] Address: [address] [place] [address] Result Comment: Too Few Cells To Do Differential. Performed By: #### 5 7021-8 ####[facility] LABIA [id number] [place] [address] [place] Basophils/100 WBC (Bld) Normal [facility] Comment on above: Order Comment: Speci men Type: BLOOD SPECIMENOrdering Facility: [facility] Address: [address] [place] [address] Result Comment: Too Few Cells To Do Differential. Performed By: #### 5 7021-8 ####[facility] LABCLIA [id number] [place] [address] [place] Differential cell count method Nom (Bld) Auto Normal [facility] Comment on above: Order Comment: Speci men Type: BLOOD SPECIMENOrdering Facility: [facility] Address: [address] [place] [address] Performed By: #### 5 7021-8 ####[facility] LABCLIA [id number] [place] [address] [place] Eosinophils (Bld) [#/Vol] Normal [facility] Comment on above: Order Comment: Speci men Type: BLOOD SPECIMENOrdering Facility: [facility] Address: [address] [place] [address] Result Comment: Too Few Cells To Do Differential. Performed By: #### 5 7021-8 ####[facility] LABCLIA [id number] [place] [address] [place] Eosinophils/100 WBC (Bld) Normal [facility] Comment on above: Order Comment: Speci men Type: BLOOD SPECIMENOrdering Facility: [facility] Address: [address] [place] [address] Result Comment: Too Few Cells To Do Differential. Performed By: #### 5 7021-8 ####[facility] LABIA [id number] [place] [address] [place] Erythrocyte distribution width (RBC) [Ratio] 14.8 % Normal 11.5-15.0 [facility] Comment on above: Order Comment: Speci men Type: BLOOD SPECIMENOrdering Facility: [facility] Address: [address] [place] [address] Performed By: #### 5 7021-8 ####[facility] LABIA [id number] [place] [address] [place] Hematocrit (Bld) [Volume fraction] 20.0 % Low 36.0-46.0 [facility] Comment on above: Order Comment: Speci men Type: BLOOD SPECIMENOrdering Facility: [facility] Address: [address] [place] [address] Performed By: #### 5 7021-8 ####[facility] LABIA [id number] [place] [address] [place] Hemoglobin (Bld) [Mass/Vol] 6.9 g/dL Low 11.5-15.5 [facility] Comment on above: Order Comment: Speci men Type: BLOOD SPECIMENOrdering Facility: [facility] Address: [address] [place] [address] Performed By: #### 5 7021-8 ####[facility] LABCLIA [id number] [place] [address] [place] Immature granulocytes (Bld) [#/Vol] Normal [facility] Comment on above: Order Comment: Speci men Type: BLOOD SPECIMENOrdering Facility: [facility] Address: [address] [place] [address] Result Comment: Too Few Cells To Do Differential. Performed By: #### 5 7021-8 ####[facility] LABCLIA [id number] [place] [address] [place] Immature granulocytes/100 WBC (Bld) Normal [facility] Comment on above: Order Comment: Speci men Type: BLOOD SPECIMENOrdering Facility: [facility] Address: [address] [place] [address] Result Comment: Too Few Cells To Do Differential. Performed By: #### 5 7021-8 ####[facility] LABCLIA [id number] [place] [address] [place] Lymphocytes (Bld) [#/Vol] Normal [facility] Comment on above: Order Comment: Speci men Type: BLOOD SPECIMENOrdering Facility: [facility] Address: [address] [place] [address] Result Comment: Too Few Cells To Do Differential. Performed By: #### 5 7021-8 ####[facility] LABCLIA [id number] [place] [address] [place] Lymphocytes/100 WBC (Bld) Normal [facility] Comment on above: Order Comment: Speci men Type: BLOOD SPECIMENOrdering Facility: [facility] Address: [address] [place] [address] Result Comment: Too Few Cells To Do Differential. Performed By: #### 5 7021-8 ####[facility] LABCLIA [id number] [place] [address] [place] MCH (RBC) [Entitic mass] 30.4 pg Normal 26.0-34.0 [facility] Comment on above: Order Comment: Speci men Type: BLOOD SPECIMENOrdering Facility: [facility] Address: [address] [place] [address] Performed By: #### 5 7021-8 ####[facility] LABIA [id number] [place] [address] [place] MCHC (RBC) [Mass/Vol] 34.5 g/dL Normal 30.5-36.0 [facility] Comment on above: Order Comment: Speci men Type: BLOOD SPECIMENOrdering Facility: [facility] Address: [address] [place] [address] Performed By: #### 5 7021-8 ####[facility] LABIA [id number] [place] [address] [place] MCV (RBC) [Entitic vol] 88.1 fL Normal 80.0-100.0 [facility] Comment on above: Order Comment: Speci men Type: BLOOD SPECIMENOrdering Facility: [facility] Address: [address] [place] [address] Performed By: #### 5 7021-8 ####[facility] LABIA [id number] [place] [address] [place] Monocytes (Bld) [#/Vol] Normal [facility] Comment on above: Order Comment: Speci men Type: BLOOD SPECIMENOrdering Facility: [facility] Address: [address] [place] [address] Result Comment: Too Few Cells To Do Differential. Performed By: #### 5 7021-8 ####[facility] LABIA [id number] [place] [address] [place] Monocytes/100 WBC (Bld) Normal [facility] Comment on above: Order Comment: Speci men Type: BLOOD SPECIMENOrdering Facility: [facility] Address: [address] [place] [address] Result Comment: Too Few Cells To Do Differential. Performed By: #### 5 7021-8 ####[facility] LABCLIA [id number] [place] [address] [place] Neutrophils (Bld) [#/Vol] Normal [facility] Comment on above: Order Comment: Speci men Type: BLOOD SPECIMENOrdering Facility: [facility] Address: [address] [place] [address] Result Comment: Too Few Cells To Do Differential. Performed By: #### 5 7021-8 ####[facility] LABCLIA [id number] [place] [address] [place] Neutrophils/100 WBC (Bld) Normal [facility] Comment on above: Order Comment: Speci men Type: BLOOD SPECIMENOrdering Facility: [facility] Address: [address] [place] [address] Result Comment: Too Few Cells To Do Differential. Performed By: #### 5 7021-8 ####[facility] LABCLIA [id number] [place] [address] [place] Nucleated RBC (Bld) [#/Vol] 10*3/uL Normal <0.01 [facility] Comment on above: Order Comment: Speci men Type: BLOOD SPECIMENOrdering Facility: [facility] Address: [address] [place] [address] Performed By: #### 5 7021-8 ####[facility] LABCLIA [id number] [place] [address] [place] Nucleated RBC/100 WBC (Bld) [Ratio] 0.0 /100 WBC Normal [facility] Comment on above: Order Comment: Speci men Type: BLOOD SPECIMENOrdering Facility: [facility] Address: [address] [place] [address] Performed By: #### 5 7021-8 ####[facility] LABIA [id number] [place] [address] [place] Platelet mean volume (Bld) [Entitic vol] Normal [facility] Comment on above: Order Comment: Speci men Type: BLOOD SPECIMENOrdering Facility: [facility] Address: [address] [place] [address] Result Comment: Unab le to Report. Performed By: #### 5 7021-8 ####[facility] [id number] [place] [address] [place] Platelets (Bld) [#/Vol] 10 10*3/uL Low 150-400 [facility] Comment on above: Order Comment: Speci men Type: BLOOD SPECIMENOrdering Facility: [facility] Address: [address] [place] [address] Result Comment: No c lot detected.Results checked and verified. Performed By: #### 5 7021-8 ####[facility] [id number] [place] [address] [place] RBC (Bld) [#/Vol] 2.27 10*6/uL Low 3.90-5.20 [facility] Comment on above: Order Comment: Speci men Type: BLOOD SPECIMENOrdering Facility: [facility] Address: [address] [place] [address] Performed By: #### 5 7021-8 ####[facility] [id number] [place] [address] [place] WBC (Bld) [#/Vol] 0.38 10*3/uL Low 3.70-11.00 [facility] Comment on above: Order Comment: Speci men Type: BLOOD SPECIMENOrdering Facility: [facility] Address: [address] [place] [address] Result Comment: No c lot detected. Too Few Cells To Do Differential Performed By: #### 5 7021-8 ####[facility] LABCLIA [id number] [place] [address] [place] Comprehensive metabolic 2000 panelon 07-16-2023 Albumin [Mass/Vol] 2.5 g/dL Low 3.9-4.9 [facility] Comment on above: Order Comment: Speci men Type: BLOOD SPECIMENOrdering Facility: [facility] Address: [address] [place] [address] Performed By: #### 2 432-8, ####[facility] LABCLIA [id number] [place] [address] [place] ALP [Catalytic activity/Vol] 60 U/L Normal 34-123 [facility] Comment on above: Order Comment: Speci men Type: BLOOD SPECIMENOrdering Facility: [facility] Address: [address] [place] [address] Performed By: #### 2 432-8, ####[facility] LABCLIA [id number] [place] [address] [place] ALT [Catalytic activity/Vol] 12 U/L Normal 7-38 [facility] Comment on above: Order Comment: Speci men Type: BLOOD SPECIMENOrdering Facility: [facility] Address: [address] [place] [address] Performed By: #### 2 4323-8, ####[facility] LABCLIA [id number] [place] [id number] [place] Anion gap [Moles/Vol] 9 mmol/L Normal 9-18 [facility] Comment on above: Order Comment: Speci men Type: BLOOD SPECIMENOrdering Facility: [facility] Address: [address] [place] [address] Performed By: #### 2 4323-8, ####[facility] LABCLIA [id number] [place] [id number] [place] AST [Catalytic activity/Vol] 12 U/L Low 13-35 [facility] Comment on above: Order Comment: Speci men Type: BLOOD SPECIMENOrdering Facility: [facility] Address: [address] [place] [address] Performed By: #### 2 4323-8, ####[facility] LABCLIA [id number] [place] [address] [place] Bilirubin [Mass/Vol] 0.5 mg/dL Normal 0.2-1.3 [facility] Comment on above: Order Comment: Speci men Type: BLOOD SPECIMENOrdering Facility: [facility] Address: [address] [place] [address] Performed By: #### 2 432-8, ####[facility] LABCLIA [id number] [place] [address] [place] Calcium [Mass/Vol] 7.8 mg/dL Low 8.5-10.2 [facility] Comment on above: Order Comment: Speci men Type: BLOOD SPECIMENOrdering Facility: [facility] Address: [address] [place] [address] Performed By: #### 2 4328, ####[facility] LABCLIA [id number] [place] [address] [place] Chloride [Moles/Vol] 105 mmol/L Normal 97-105 [facility] Comment on above: Order Comment: Speci men Type: BLOOD SPECIMENOrdering Facility: [facility] Address: [address] [place] [address] Performed By: #### 2 4323-8, ####[facility] LABCLIA [id number] [place] [address] [place] CO2 [Moles/Vol] 23 mmol/L Normal 22-30 [facility] Comment on above: Order Comment: Speci men Type: BLOOD SPECIMENOrdering Facility: [facility] Address: [address] [place] [address] Performed By: #### 2 4323-8, ####[facility] LABIA [id number] [place] [address] [place] Creatinine [Mass/Vol] 0.79 mg/dL Normal 0.58-0.96 [facility] Comment on above: Order Comment: Speci men Type: BLOOD SPECIMENOrdering Facility: [facility] Address: [address] [place] [address] Performed By: #### 2 4323-8, ####[facility] LABIA [id number] [place] [address] [place] Creatinine and Glomerular filtration rate.predicted panel (S/P/Bld) 81 mL/min/1.73m??? Normal >=60 [facility] Comment on above: Order Comment: Elvia men Type: BLOOD SPECIMENOrdering Facility: [facility] Address: [address] [place] [address] Result Comment: Berenice mated Glomerular Filtration Rate [...] actual GFR. Performed By: #### 2 4323-8, ####[facility] LABIA [id number] [place] [address] [place] Glucose [Mass/Vol] 96 mg/dL Normal 74-99 [facility] Comment on above: Order Comment: Speci men Type: BLOOD SPECIMENOrdering Facility: [facility] Address: [address] [place] [address] Result Comment: The [place] Diabetes Association (ADA) provides guidance for cutoff [...] Standards of Medical Care in Diabetes 2016, [place] Diabetes Association. Diabetes Care. 2016.39(Suppl 1). Performed By: #### 2 4323-04, ####[facility] LABCLIA [id number] [place] [address] [place] Potassium [Moles/Vol] 3.2 mmol/L Low 3.7-5.1 [facility] Comment on above: Order Comment: Speci men Type: BLOOD SPECIMENOrdering Facility: [facility] Address: [address] [place] [address] Performed By: #### 2 4323-04, ####[facility] LABCLIA [id number] [place] [address] [place] Protein [Mass/Vol] 4.5 g/dL Low 6.3-8.0 [facility] Comment on above: Order Comment: Rochellei men Type: BLOOD SPECIMENOrdering Facility: [facility] Address: [address] [place] [address] Performed By: #### 2 4323-04, ####[facility] LABCLIA [id number] [place] [id number] [place] Sodium [Moles/Vol] 137 mmol/L Normal 136-144 [facility] Comment on above: Order Comment: Speci men Type: BLOOD SPECIMENOrdering Facility: [facility] Address: [address] [place] [address] Performed By: #### 2 4323-04, ####[facility] LABCLIA [id number] [address] [address] [place] Urea nitrogen [Mass/Vol] 9 mg/dL Normal 7-21 [facility] Comment on above: Order Comment: Speci men Type: BLOOD SPECIMENOrdering Facility: [facility] Address: [address] [place] [address] Performed By: #### 2 4323-8, 89804-5 ####[facility] LABCLIA [id number] [place] [address] [place] Gastrointestinal pathogens p jordan KIAH+probe (Stl)on 07-16-2023 ADENOVIRUS F 40/41 Not detected Normal Not Detected [facility] Comment on above: Order Comment: Speci men Type: STOOL SPECIMENOrdering Facility: [facility] Address: [address] [place] [address] Performed By: #### 7 9381-0 ####[facility] LABCLIA [id number] [place] [address] [place] ASTROVIRUS Not detected Normal Not Detected [facility] Comment on above: Order Comment: Speci men Type: STOOL SPECIMENOrdering Facility: [facility] Address: [address] [place] [address] Performed By: #### 7 9381-0 ####[facility] LABCLIA [id number] [place] [address] [place] C. cayetanensis DNA KIAH+probe Ql (Unsp spec) Not detected Normal Not Detected [facility] Comment on above: Order Comment: Speci men Type: STOOL SPECIMENOrdering Facility: [facility] Address: [address] [place] [address] Performed By: #### 7 9381-0 ####[facility] LABCLIA [id number] [place] [address] [place] Campylobacter sp DNA.diarrheagenic KIAH+probe Ql (Stl) Not detected Normal Not Detected [facility] Comment on above: Order Comment: Speci men Type: STOOL SPECIMENOrdering Facility: [facility] Address: [address] [place] [address] Performed By: #### 7 9381-0 ####[facility] LABCLIA [id number] [place] [address] [place] Cryptosporidium sp DNA KIAH+probe Ql (Unsp spec) Not detected Normal Not detected [facility] Comment on above: Order Comment: Speci men Type: STOOL SPECIMENOrdering Facility: [facility] Address: [address] [place] [address] Performed By: #### 7 9381-0 ####[facility] LABCLIA [id number] [place] [address] [place] E. COLI (EAEC) Not detected Normal Not Detected [facility] Comment on above: Order Comment: Speci men Type: STOOL SPECIMENOrdering Facility: [facility] Address: [address] [place] [address] Performed By: #### 7 9381-0 ####[facility] LABCLIA [id number] [place] [address] [place] E. COLI (EPEC) Not detected Normal Not Detected [facility] Comment on above: Order Comment: Speci men Type: STOOL SPECIMENOrdering Facility: [facility] Address: [address] [place] [address] Performed By: #### 7 9381-0 ####[facility] LABCLIA [id number] [place] [address] [place] E. COLI (ETEC) Not detected Normal Not Detected [facility] Comment on above: Order Comment: Speci men Type: STOOL SPECIMENOrdering Facility: [facility] Address: [address] [place] [address] Performed By: #### 7 9381-0 ####[facility] LABCLIA [id number] [place] [address] [place] E. COLI (STEC) Not detected Normal Not Detected [facility] Comment on above: Order Comment: Speci men Type: STOOL SPECIMENOrdering Facility: [facility] Address: [address] [place] [address] Performed By: #### 7 9381-0 ####[facility] LABCLIA [id number] [place] [address] [place] E. coli O157:H7 DNA KIAH+probe Ql (Unsp spec) Not Applicable Normal Not Detected [facility] Comment on above: Order Comment: Speci men Type: STOOL SPECIMENOrdering Facility: [facility] Address: [address] [place] [address] Performed By: #### 7 9381-0 ####[facility] LABCLIA [id number] [place] [address] [place] E. histolytica DNA KIAH+probe Ql (Unsp spec) Not detected Normal Not Detected [facility] Comment on above: Order Comment: Speci men Type: STOOL SPECIMENOrdering Facility: [facility] Address: [address] [place] [address] Performed By: #### 7 9381-0 ####[facility] LABCLIA [id number] [place] [address] [place] G. lamblia DNA KIAH+probe Ql (Unsp spec) Not detected Normal Not Detected [facility] Comment on above: Order Comment: Speci men Type: STOOL SPECIMENOrdering Facility: [facility] Address: [address] [place] [address] Performed By: #### 7 9381-0 ####[facility] LABCLIA [id number] [place] [address] [place] NOROVIRUS GI/GII Not detected Normal Not Detected [facility] Comment on above: Order Comment: Speci men Type: STOOL SPECIMENOrdering Facility: [facility] Address: [address] [place] [address] Performed By: #### 7 9381-0 ####[facility] LABCLIA [id number] [place] [address] [place] PLESIOMONAS SHIGELLOIDES Not detected Normal Not Detected [facility] Comment on above: Order Comment: Speci men Type: STOOL SPECIMENOrdering Facility: [facility] Address: [address] [place] [address] Performed By: #### 7 9381-0 ####[facility] LABCLIA [id number] [place] [address] [place] ROTOVIRUS A Not detected Normal Not Detected [facility] Comment on above: Order Comment: Speci men Type: STOOL SPECIMENOrdering Facility: [facility] Address: [address] [place] [address] Performed By: #### 7 9381-0 ####[facility] LABCLIA [id number] [place] [address] [place] Salmonella sp DNA KIAH+probe Ql (Unsp spec) Not detected Normal Not Detected [facility] Comment on above: Order Comment: Speci men Type: STOOL SPECIMENOrdering Facility: [facility] Address: [address] [place] [address] Performed By: #### 7 9381-0 ####[facility] LABCLIA [id number] [place] [address] [place] SAPOVIRUS I,II,IV,V Not detected Normal Not Detected [facility] Comment on above: Order Comment: Speci men Type: STOOL SPECIMENOrdering Facility: [facility] Address: [address] [place] [address] Performed By: #### 7 9381-0 ####[facility] LABCLIA [id number] [place] [address] [place] Shigella species+EIEC invasion plasmid antigen H ipaH gene KIAH+probe Ql (Stl) Not detected Normal Not Detected [facility] Comment on above: Order Comment: Speci men Type: STOOL SPECIMENOrdering Facility: [facility] Address: [address] [place] [address] Performed By: #### 7 9381-0 ####[facility] LABCLIA [id number] [place] [address] [place] V. cholerae DNA KIAH+probe Ql (Unsp spec) Not detected Normal Not Detected [facility] Comment on above: Order Comment: Speci men Type: STOOL SPECIMENOrdering Facility: [facility] Address: [address] [place] [address] Performed By: #### 7 9381-0 ####[facility] LABCLIA [id number] [place] [address] [place] Vibrio sp DNA KIAH+probe Nom (Unsp spec) Not detected Normal Not Detected [facility] Comment on above: Order Comment: Speci men Type: STOOL SPECIMENOrdering Facility: [facility] Address: [address] [place] [address] Performed By: #### 7 9381-0 ####[facility] LABCLIA [id number] [place] [address] [place] Yersinia sp DNA KIAH+probe Nom (Unsp spec) Not detected Normal Not Detected [facility] Comment on above: Order Comment: Speci men Type: STOOL SPECIMENOrdering Facility: [facility] Address: [address] [place] [address] Performed By: #### 7 9381-0 ####[facility] LABIA [id number] [place] [address] [place] Magnesium SerPl-mCncon 07-16 Magnesium [Mass/Vol] 2.0 mg/dL Normal 1.7-2.3 [facility] Comment on above: Order Comment: Speci men Type: BLOOD SPECIMENOrdering Facility: [facility] Address: [address] [place] [address] Performed By: #### 2 4323-8, 30943-1 ####[facility] LABCLIA [id number] [place] [address] [place] SOCIAL WORKon 07-16-2023 SOCIAL WORK Normal [facility] THERAPY NTon 07-16-2023 THERAPY NT Normal [facility] THERAPY NT Normal [facility] C diff Tox gens Stl Ql KIAH+p robeon 07-15-2023 C. difficile toxin genes KIAH+probe Ql (Stl) Negative Normal Negative for C. difficile toxin by PCR [facility] Comment on above: Order Comment: Speci men Type: STOOL SPECIMENOrdering Facility: [facility] Address: [address] [place] [address] Performed By: #### 5 4067-4 ####[facility] LABCLIA [id number] [place] [address] [place] CBC W Auto Differential pane l (Bld)on 07-15-2023 Basophils (Bld) [#/Vol] Normal [facility] Comment on above: Order Comment: Speci men Type: BLOOD SPECIMENOrdering Facility: [facility] Address: [address] [place] [address] Result Comment: Too Few Cells To Do Differential. Performed By: #### 5 7021-8 ####[facility] LABCLIA [id number] [place] [address] [place] Basophils/100 WBC (Bld) Normal [facility] Comment on above: Order Comment: Speci men Type: BLOOD SPECIMENOrdering Facility: [facility] Address: [address] [place] [address] Result Comment: Too Few Cells To Do Differential. Performed By: #### 5 7021-8 ####[facility] LABCLIA [id number] [place] [address] [place] Differential cell count method Nom (Bld) Auto Normal [facility] Comment on above: Order Comment: Speci men Type: BLOOD SPECIMENOrdering Facility: [facility] Address: [address] [place] [address] Performed By: #### 5 7021-8 ####[facility] LABCLIA [id number] [place] [address] [place] Eosinophils (Bld) [#/Vol] Normal [facility] Comment on above: Order Comment: Speci men Type: BLOOD SPECIMENOrdering Facility: [facility] Address: [address] [place] [address] Result Comment: Too Few Cells To Do Differential. Performed By: #### 5 7021-8 ####[facility] LABCLIA [id number] [place] [address] [place] Eosinophils/100 WBC (Bld) Normal [facility] Comment on above: Order Comment: Speci men Type: BLOOD SPECIMENOrdering Facility: [facility] Address: [address] [place] [address] Result Comment: Too Few Cells To Do Differential. Performed By: #### 5 7021-8 ####[facility] LABCLIA [id number] [place] [address] [place] Erythrocyte distribution width (RBC) [Ratio] 15.5 % High 11.5-15.0 [facility] Comment on above: Order Comment: Speci men Type: BLOOD SPECIMENOrdering Facility: [facility] Address: [address] [place] [address] Performed By: #### 5 7021-8 ####[facility] LABCLIA [id number] [place] [address] [place] Hematocrit (Bld) [Volume fraction] 18.5 % Low 36.0-46.0 [facility] Comment on above: Order Comment: Speci men Type: BLOOD SPECIMENOrdering Facility: [facility] Address: [address] [place] [address] Performed By: #### 5 7021-8 ####[facility] LABCLIA [id number] [place] [address] [place] Hemoglobin (Bld) [Mass/Vol] 6.4 g/dL Low 11.5-15.5 [facility] Comment on above: Order Comment: Speci men Type: BLOOD SPECIMENOrdering Facility: [facility] Address: [address] [place] [address] Performed By: #### 5 7021-8 ####[facility] LABCLIA [id number] [place] [address] [place] Immature granulocytes (Bld) [#/Vol] Normal [facility] Comment on above: Order Comment: Speci men Type: BLOOD SPECIMENOrdering Facility: [facility] Address: [address] [place] [address] Result Comment: Too Few Cells To Do Differential. Performed By: #### 5 7021-8 ####[facility] LABCLIA [id number] [place] [address] [place] Immature granulocytes/100 WBC (Bld) Normal [facility] Comment on above: Order Comment: Speci men Type: BLOOD SPECIMENOrdering Facility: [facility] Address: [address] [place] [address] Result Comment: Too Few Cells To Do Differential. Performed By: #### 5 7021-8 ####[facility] LABCLIA [id number] [place] [address] [place] Lymphocytes (Bld) [#/Vol] Normal [facility] Comment on above: Order Comment: Speci men Type: BLOOD SPECIMENOrdering Facility: [facility] Address: [address] [place] [address] Result Comment: Too Few Cells To Do Differential. Performed By: #### 5 7021-8 ####[facility] LABCLIA [id number] [place] [address] [place] Lymphocytes/100 WBC (Bld) Normal [facility] Comment on above: Order Comment: Speci men Type: BLOOD SPECIMENOrdering Facility: [facility] Address: [address] [place] [address] Result Comment: Too Few Cells To Do Differential. Performed By: #### 5 7021-8 ####[facility] LABCLIA [id number] [place] [address] [place] MCH (RBC) [Entitic mass] 30.9 pg Normal 26.0-34.0 [facility] Comment on above: Order Comment: Speci men Type: BLOOD SPECIMENOrdering Facility: [facility] Address: [address] [place] [address] Performed By: #### 5 7021-8 ####[facility] LABIA [id number] [place] [address] [place] MCHC (RBC) [Mass/Vol] 34.6 g/dL Normal 30.5-36.0 [facility] Comment on above: Order Comment: Speci men Type: BLOOD SPECIMENOrdering Facility: [facility] Address: [address] [place] [address] Performed By: #### 5 7021-8 ####[facility] LABIA [id number] [place] [address] [place] MCV (RBC) [Entitic vol] 89.4 fL Normal 80.0-100.0 [facility] Comment on above: Order Comment: Speci men Type: BLOOD SPECIMENOrdering Facility: [facility] Address: [address] [place] [address] Performed By: #### 5 7021-8 ####[facility] LABIA [id number] [place] [address] [place] Monocytes (Bld) [#/Vol] Normal [facility] Comment on above: Order Comment: Speci men Type: BLOOD SPECIMENOrdering Facility: [facility] Address: [address] [place] [address] Result Comment: Too Few Cells To Do Differential. Performed By: #### 5 7021-8 ####[facility] LABCLIA [id number] [place] [address] [place] Monocytes/100 WBC (Bld) Normal [facility] Comment on above: Order Comment: Speci men Type: BLOOD SPECIMENOrdering Facility: [facility] Address: [address] [place] [address] Result Comment: Too Few Cells To Do Differential. Performed By: #### 5 7021-8 ####[facility] LABCLIA [id number] [place] [address] [place] Neutrophils (Bld) [#/Vol] Normal [facility] Comment on above: Order Comment: Speci men Type: BLOOD SPECIMENOrdering Facility: [facility] Address: [address] [place] [address] Result Comment: Too Few Cells To Do Differential. Performed By: #### 5 7021-8 ####[facility] LABCLIA [id number] [place] [address] [place] Neutrophils/100 WBC (Bld) Normal [facility] Comment on above: Order Comment: Speci men Type: BLOOD SPECIMENOrdering Facility: [facility] Address: [address] [place] [address] Result Comment: Too Few Cells To Do Differential. Performed By: #### 5 7021-8 ####[facility] LABCLIA [id number] [place] [address] [place] Nucleated RBC (Bld) [#/Vol] 0.02 10*3/uL High <0.01 [facility] Comment on above: Order Comment: Speci men Type: BLOOD SPECIMENOrdering Facility: [facility] Address: [address] [place] [address] Performed By: #### 5 7021-8 ####[facility] LABCLIA [id number] [place] [address] [place] Nucleated RBC/100 WBC (Bld) [Ratio] 4.7 /100 WBC Normal [facility] Comment on above: Order Comment: Speci men Type: BLOOD SPECIMENOrdering Facility: [facility] Address: [address] [place] [address] Performed By: #### 5 7021-8 ####[facility] LABCLIA [id number] [place] [address] [place] Platelet mean volume (Bld) [Entitic vol] Normal [facility] Comment on above: Order Comment: Speci men Type: BLOOD SPECIMENOrdering Facility: [facility] Address: [address] [place] [address] Result Comment: Unab le to Report. Performed By: #### 5 7021-8 ####[facility] [id number] [place] [address] [place] Platelets (Bld) [#/Vol] 8 10*3/uL Critically low 150-400 [facility] Comment on above: Order Comment: Speci men Type: BLOOD SPECIMENOrdering Facility: [facility] Address: [address] [place] [address] Result Comment: Plat elet count confirmed by manual review of peripheral blood smear. Results checked and verified.No clot detected. Performed By: #### 5 7021-8 ####[facility] [id number] [place] [address] [place] RBC (Bld) [#/Vol] 2.07 10*6/uL Low 3.90-5.20 [facility] Comment on above: Order Comment: Speci men Type: BLOOD SPECIMENOrdering Facility: [facility] Address: [address] [place] [address] Performed By: #### 5 7021-8 ####[facility] [id number] [place] [address] [place] WBC (Bld) [#/Vol] 0.43 10*3/uL Low 3.70-11.00 [facility] Comment on above: Order Comment: Speci men Type: BLOOD SPECIMENOrdering Facility: [facility] Address: [address] [place] [address] Result Comment: Resu lts checked and verified.No clot detected. Too Few Cells To Do Differential Performed By: #### 5 7021-8 ####[facility] LABCLIA [id number] [place] [id number] [place] Comprehensive metabolic 2000 panelon 07-15-2023 Albumin [Mass/Vol] 2.3 g/dL Low 3.9-4.9 [facility] Comment on above: Order Comment: Speci men Type: BLOOD SPECIMENOrdering Facility: [facility] Address: [address] [place] [address] Performed By: #### 2 4323-8, ####[facility] LABCLIA [id number] [place] [address] [place] ALP [Catalytic activity/Vol] 56 U/L Normal 34-123 [facility] Comment on above: Order Comment: Speci men Type: BLOOD SPECIMENOrdering Facility: [facility] Address: [address] [place] [address] Performed By: #### 2 432-8, ####[facility] LABIA [id number] [place] [address] [place] ALT [Catalytic activity/Vol] 13 U/L Normal 7-38 [facility] Comment on above: Order Comment: Speci men Type: BLOOD SPECIMENOrdering Facility: [facility] Address: [address] [place] [address] Performed By: #### 2 4323-8, ####[facility] LABCLIA [id number] [place] [id number] [place] Anion gap [Moles/Vol] 8 mmol/L Low 9-18 [facility] Comment on above: Order Comment: Speci men Type: BLOOD SPECIMENOrdering Facility: [facility] Address: [address] [place] [address] Performed By: #### 2 4323-8, ####[facility] LABCLIA [id number] [place] [id number] [place] AST [Catalytic activity/Vol] 12 U/L Low 13-35 [facility] Comment on above: Order Comment: Speci men Type: BLOOD SPECIMENOrdering Facility: [facility] Address: [address] [place] [address] Performed By: #### 2 432-8, ####[facility] LABCLIA [id number] [place] [address] [place] Bilirubin [Mass/Vol] 0.7 mg/dL Normal 0.2-1.3 [facility] Comment on above: Order Comment: Speci men Type: BLOOD SPECIMENOrdering Facility: [facility] Address: [address] [place] [address] Performed By: #### 2 432-8, ####[facility] LABCLIA [id number] [place] [address] [place] Calcium [Mass/Vol] 7.9 mg/dL Low 8.5-10.2 [facility] Comment on above: Order Comment: Speci men Type: BLOOD SPECIMENOrdering Facility: [facility] Address: [address] [place] [address] Performed By: #### 2 432-8, ####[facility] LABCLIA [id number] [place] [address] [place] Chloride [Moles/Vol] 103 mmol/L Normal 97-105 [facility] Comment on above: Order Comment: Speci men Type: BLOOD SPECIMENOrdering Facility: [facility] Address: [address] [place] [address] Performed By: #### 2 4323-8, ####[facility] LABCLIA [id number] [place] [address] [place] CO2 [Moles/Vol] 23 mmol/L Normal 22-30 [facility] Comment on above: Order Comment: Speci men Type: BLOOD SPECIMENOrdering Facility: [facility] Address: [address] [place] [id number] Performed By: #### 2 4323-8, ####[facility] LABCLIA [id number] [place] [id number] [place] Creatinine [Mass/Vol] 0.81 mg/dL Normal 0.58-0.96 [facility] Comment on above: Order Comment: Elvia escobar Type: BLOOD SPECIMENOrdering Facility: [facility] Address: [address] [place] [address] Performed By: #### 2 4323-8, ####[facility] LABIA [id number] [place] [address] [place] Creatinine and Glomerular filtration rate.predicted panel (S/P/Bld) 78 mL/min/1.73m??? Normal >=60 [facility] Comment on above: Order Comment: Elvia escobar Type: BLOOD SPECIMENOrdering Facility: [facility] Address: [address] [place] [address] Result Comment: Berenice mated Glomerular Filtration Rate [...] actual GFR. Performed By: #### 2 4323-8, ####[facility] LABIA [id number] [place] [id number] [place] Glucose [Mass/Vol] 94 mg/dL Normal 74-99 [facility] Comment on above: Order Comment: Elvia escobar Type: BLOOD SPECIMENOrdering Facility: [facility] Address: [address] [place] [address] Result Comment: The [place] Diabetes Association (ADA) provides guidance for cutoff [...] Standards of Medical Care in Diabetes 2016, [place] Diabetes Association. Diabetes Care. 2016.39(Suppl 1). Performed By: #### 2 4323-04, ####[facility] LABCLIA [id number] [address] [address] [place] Potassium [Moles/Vol] 3.6 mmol/L Low 3.7-5.1 [facility] Comment on above: Order Comment: Speci men Type: BLOOD SPECIMENOrdering Facility: [facility] Address: [address] [place] [address] Performed By: #### 2 4323-04, ####[facility] LABCLIA [id number] [place] [address] [place] Protein [Mass/Vol] 4.6 g/dL Low 6.3-8.0 [facility] Comment on above: Order Comment: Rochellei men Type: BLOOD SPECIMENOrdering Facility: [facility] Address: [address] [place] [address] Performed By: #### 2 4323-04, ####[facility] LABCLIA [id number] [place] [id number] [place] Sodium [Moles/Vol] 134 mmol/L Low 136-144 [facility] Comment on above: Order Comment: Speci men Type: BLOOD SPECIMENOrdering Facility: [facility] Address: [address] [place] [address] Performed By: #### 2 4323-04, ####[facility] LABCLIA [id number] [address] [address] [place] Urea nitrogen [Mass/Vol] 14 mg/dL Normal 7-21 [facility] Comment on above: Order Comment: Speci men Type: BLOOD SPECIMENOrdering Facility: [facility] Address: [place] [address] Performed By: #### 2 4323-8, 94013-5 ####[facility] LABCLIA [id number] [place] [address] [place] Magnesium SerPl-mCncon 07-15 Magnesium [Mass/Vol] 2.1 mg/dL Normal 1.7-2.3 [facility] Comment on above: Order Comment: Speci men Type: BLOOD SPECIMENOrdering Facility: [facility] Address: [address] [place] [address] Performed By: #### 2 4323-8, ####[facility] LABCLIA [id number] [place] [address] [place] THERAPY NTon 07-15-2023 THERAPY NT Normal [facility] CT ABD/PEL W IVCONon 023 CT ABD/PEL W IVCON Normal [facility] CT CHEST W IVCONon 3 CT CHEST W IVCON Normal [facility] NURSING PROGon 07-14-2023 NURSING PROG Normal [facility] CBC W Auto Differential pane l (Bld)on 07-13-2023 Anisocytosis Ql (Bld) Present Normal [facility] Comment on above: Order Comment: Speci men Type: BLOOD SPECIMENOrdering Facility: [facility] Address: [address] [place] [address] Performed By: #### 5 7021-8 ####[facility] LABCLIA [id number] [place] [address] [place] Basophils (Bld) [#/Vol] 0.00 10*3/uL Normal <0.11 [facility] Comment on above: Order Comment: Speci men Type: BLOOD SPECIMENOrdering Facility: [facility] Address: [address] [place] [address] Performed By: #### 5 7021-8 ####[facility] LABCLIA [id number] [place] [address] [place] Basophils/100 WBC (Bld) 0.0 % Normal [facility] Comment on above: Order Comment: Speci men Type: BLOOD SPECIMENOrdering Facility: [facility] Address: [address] [place] [address] Performed By: #### 5 7021-8 ####[facility] LABCLIA [id number] [place] [address] [place] BLAST% 1.8 % High <=0.0 [facility] Comment on above: Order Comment: Speci men Type: BLOOD SPECIMENOrdering Facility: [facility] Address: [address] [place] [address] Performed By: #### 5 7021-8 ####[facility] LABCLIA [id number] [place] [address] [place] Differential cell count method Nom (Bld) Manual Normal [facility] Comment on above: Order Comment: Speci men Type: BLOOD SPECIMENOrdering Facility: [facility] Address: [address] [place] [address] Performed By: #### 5 7021-8 ####[facility] LABCLIA [id number] [place] [address] [place] Eosinophils (Bld) [#/Vol] 0.00 10*3/uL Normal <0.46 [facility] Comment on above: Order Comment: Speci men Type: BLOOD SPECIMENOrdering Facility: [facility] Address: [address] [place] [address] Performed By: #### 5 7021-8 ####[facility] LABCLIA [id number] [place] [address] [place] Eosinophils/100 WBC (Bld) 0.0 % Normal [facility] Comment on above: Order Comment: Speci men Type: BLOOD SPECIMENOrdering Facility: [facility] Address: [address] [place] [address] Performed By: #### 5 7021-8 ####[facility] LABIA [id number] [place] [address] [place] Erythrocyte distribution width (RBC) [Ratio] 15.3 % High 11.5-15.0 [facility] Comment on above: Order Comment: Speci men Type: BLOOD SPECIMENOrdering Facility: [facility] Address: [address] [place] [address] Performed By: #### 5 7021-8 ####[facility] LABIA [id number] [place] [address] [place] Hematocrit (Bld) [Volume fraction] 20.6 % Low 36.0-46.0 [facility] Comment on above: Order Comment: Speci men Type: BLOOD SPECIMENOrdering Facility: [facility] Address: [address] [place] [address] Performed By: #### 5 7021-8 ####[facility] LABIA [id number] [place] [address] [place] Hemoglobin (Bld) [Mass/Vol] 7.3 g/dL Low 11.5-15.5 [facility] Comment on above: Order Comment: Speci men Type: BLOOD SPECIMENOrdering Facility: [facility] Address: [address] [place] [address] Performed By: #### 5 7021-8 ####[facility] LABIA [id number] [place] [address] [place] Lymphocytes (Bld) [#/Vol] 0.29 10*3/uL Low 1.00-4.00 [facility] Comment on above: Order Comment: Speci men Type: BLOOD SPECIMENOrdering Facility: [facility] Address: [address] [place] [address] Performed By: #### 5 7021-8 ####[facility] LABCLIA [id number] [place] [address] [place] Lymphocytes/100 WBC (Bld) 47.8 % Normal [facility] Comment on above: Order Comment: Speci men Type: BLOOD SPECIMENOrdering Facility: [facility] Address: [address] [place] [address] Performed By: #### 5 7021-8 ####[facility] LABIA [id number] [place] [address] [place] MCH (RBC) [Entitic mass] 30.9 pg Normal 26.0-34.0 [facility] Comment on above: Order Comment: Speci men Type: BLOOD SPECIMENOrdering Facility: [facility] Address: [address] [place] [address] Performed By: #### 5 7021-8 ####[facility] LABIA [id number] [place] [address] [place] MCHC (RBC) [Mass/Vol] 35.4 g/dL Normal 30.5-36.0 [facility] Comment on above: Order Comment: Speci men Type: BLOOD SPECIMENOrdering Facility: [facility] Address: [address] [place] [address] Performed By: #### 5 7021-8 ####[facility] LABIA [id number] [place] [address] [place] MCV (RBC) [Entitic vol] 87.3 fL Normal 80.0-100.0 [facility] Comment on above: Order Comment: Speci men Type: BLOOD SPECIMENOrdering Facility: [facility] Address: [address] [place] [address] Performed By: #### 5 7021-8 ####[facility] LABCLIA [id number] [place] [address] [place] Monocytes (Bld) [#/Vol] 0.07 10*3/uL Normal <0.87 [facility] Comment on above: Order Comment: Speci men Type: BLOOD SPECIMENOrdering Facility: [facility] Address: [address] [place] [address] Performed By: #### 5 7021-8 ####[facility] LABCLIA [id number] [place] [address] [place] Monocytes/100 WBC (Bld) 10.8 % Normal [facility] Comment on above: Order Comment: Speci men Type: BLOOD SPECIMENOrdering Facility: [facility] Address: [address] [place] [address] Performed By: #### 5 7021-8 ####[facility] LABCLIA [id number] [place] [address] [place] Neutrophils (Bld) [#/Vol] 0.24 10*3/uL Low 1.45-7.50 [facility] Comment on above: Order Comment: Speci men Type: BLOOD SPECIMENOrdering Facility: [facility] Address: [address] [place] [address] Performed By: #### 5 7021-8 ####[facility] LABIA [id number] [place] [address] [place] Neutrophils/100 WBC (Bld) 39.6 % Normal [facility] Comment on above: Order Comment: Speci men Type: BLOOD SPECIMENOrdering Facility: [facility] Address: [address] [place] [address] Performed By: #### 5 7021-8 ####[facility] LABCLIA [id number] [place] [address] [place] Nucleated RBC (Bld) [#/Vol] 0.02 10*3/uL High <0.01 [facility] Comment on above: Order Comment: Speci men Type: BLOOD SPECIMENOrdering Facility: [facility] Address: [address] [place] [address] Performed By: #### 5 7021-8 ####[facility] LABCLIA [id number] [place] [address] [place] Nucleated RBC/100 WBC (Bld) [Ratio] 2.7 /100 WBC Normal [facility] Comment on above: Order Comment: Speci men Type: BLOOD SPECIMENOrdering Facility: [facility] Address: [address] [place] [address] Performed By: #### 5 7021-8 ####[facility] LABCLIA [id number] [place] [address] [place] Ovalocytes LM Ql (Bld) Few Normal [facility] Comment on above: Order Comment: Speci men Type: BLOOD SPECIMENOrdering Facility: [facility] Address: [address] [place] [address] Performed By: #### 5 7021-8 ####[facility] LABCLIA [id number] [place] [address] [place] Platelet mean volume (Bld) [Entitic vol] Normal [facility] Comment on above: Order Comment: Speci men Type: BLOOD SPECIMENOrdering Facility: [facility] Address: [address] [place] [address] Result Comment: Unab le to Report. Performed By: #### 5 7021-8 ####[facility] LABCLIA [id number] [place] [address] [place] Platelets (Bld) [#/Vol] 10 10*3/uL Low 150-400 [facility] Comment on above: Order Comment: Speci men Type: BLOOD SPECIMENOrdering Facility: [facility] Address: [address] [place] [address] Performed By: #### 5 7021-8 ####[facility] LABCLIA [id number] [place] [address] [place] Platelets Estimate (Bld) [#/Vol] Decreased Normal [facility] Comment on above: Order Comment: Speci men Type: BLOOD SPECIMENOrdering Facility: [facility] Address: [address] [place] [address] Performed By: #### 5 7021-8 ####[facility] LABCLIA [id number] [place] [address] [place] Polychromasia LM Ql (Bld) Slight Normal [facility] Comment on above: Order Comment: Speci men Type: BLOOD SPECIMENOrdering Facility: [facility] Address: [address] [place] [address] Performed By: #### 5 7021-8 ####[facility] LABCLIA [id number] [place] [address] [place] RBC (Bld) [#/Vol] 2.36 10*6/uL Low 3.90-5.20 [facility] Comment on above: Order Comment: Speci men Type: BLOOD SPECIMENOrdering Facility: [facility] Address: [address] [place] [address] Performed By: #### 5 7021-8 ####[facility] LABCLIA [id number] [place] [address] [place] RBC FRAGMENTS Few Abnormal None Seen [facility] Comment on above: Order Comment: Speci men Type: BLOOD SPECIMENOrdering Facility: [facility] Address: [address] [place] [address] Performed By: #### 5 7021-8 ####[facility] LABCLIA [id number] [place] [address] [place] RED CELL MORPH Reviewed: see result s of individual morphologies Normal [facility] Comment on above: Order Comment: Speci men Type: BLOOD SPECIMENOrdering Facility: [facility] Address: [address] [place] [address] Performed By: #### 5 7021-8 ####[facility] LABCLIA [id number] [place] [address] [place] WBC (Bld) [#/Vol] 0.61 10*3/uL Low 3.70-11.00 [facility] Comment on above: Order Comment: Speci men Type: BLOOD SPECIMENOrdering Facility: [facility] Address: [address] [place] [address] Result Comment: Resu lts checked and verified.No clot detected. Performed By: #### 5 7021-8 ####[facility] LABCLIA [id number] [place] [address] [place] [facility] Comprehensive metabolic 2000 panelon 07-13-2023 Albumin [Mass/Vol] 2.6 g/dL Low 3.9-4.9 [facility] Comment on above: Order Comment: Speci men Type: BLOOD SPECIMENOrdering Facility: [facility] Address: [address] [place] [address] Performed By: #### 1 9123-9, 2777-, 41290-9 ####[facility] LABCLIA [id number] [place] [address] [place] ALP [Catalytic activity/Vol] 49 U/L Normal 34-123 [facility] Comment on above: Order Comment: Speci men Type: BLOOD SPECIMENOrdering Facility: [facility] Address: [address] [place] [address] Performed By: #### 1 9123-9, 2777-, 94357-8 ####[facility] LABCLIA [id number] [place] [address] [place] ALT [Catalytic activity/Vol] 16 U/L Normal 7-38 [facility] Comment on above: Order Comment: Speci men Type: BLOOD SPECIMENOrdering Facility: [facility] Address: [address] [place] [address] Performed By: #### 1 9123-9, 2777-, 79175-2 ####[facility] LABCLIA [id number] [place] [address] [place] Anion gap [Moles/Vol] 6 mmol/L Low 9-18 [facility] Comment on above: Order Comment: Speci men Type: BLOOD SPECIMENOrdering Facility: [facility] Address: [address] [place] [address] Performed By: #### 1 9123-9, 2776-09, ####[facility] LABCLIA [id number] [place] [address] [place] AST [Catalytic activity/Vol] 13 U/L Normal 13-35 [facility] Comment on above: Order Comment: Speci men Type: BLOOD SPECIMENOrdering Facility: [facility] Address: [address] [place] [address] Performed By: #### 1 9123-9, 2776-09, ####[facility] LABCLIA [id number] [place] [address] [place] Bilirubin [Mass/Vol] 0.8 mg/dL Normal 0.2-1.3 [facility] Comment on above: Order Comment: Speci men Type: BLOOD SPECIMENOrdering Facility: [facility] Address: [address] [place] [address] Performed By: #### 1 9123-9, 2776-09, ####[facility] LABCLIA [id number] [place] [address] [place] Calcium [Mass/Vol] 8.1 mg/dL Low 8.5-10.2 [facility] Comment on above: Order Comment: Speci men Type: BLOOD SPECIMENOrdering Facility: [facility] Address: [address] [place] [address] Performed By: #### 1 9123-9, 2776-09, ####[facility] LABCLIA [id number] [place] [id number] [place] Chloride [Moles/Vol] 103 mmol/L Normal 97-105 [facility] Comment on above: Order Comment: Speci men Type: BLOOD SPECIMENOrdering Facility: [facility] Address: [address] [place] [address] Performed By: #### 1 9123-9, 2776-09, ####[facility] LABCLIA [id number] [place] [address] [place] CO2 [Moles/Vol] 25 mmol/L Normal 22-30 [facility] Comment on above: Order Comment: Speci men Type: BLOOD SPECIMENOrdering Facility: [facility] Address: [address] [place] [address] Performed By: #### 1 9123-9, 27703-03, ####[facility] LABIA [id number] [place] [address] [place] Creatinine [Mass/Vol] 0.82 mg/dL Normal 0.58-0.96 [facility] Comment on above: Order Comment: Speci men Type: BLOOD SPECIMENOrdering Facility: [facility] Address: [address] [place] [address] Performed By: #### 1 9123-9, 27703-03, ####[facility] LABIA [id number] [address] [place] Creatinine and Glomerular filtration rate.predicted panel (S/P/Bld) 77 mL/min/1.73m??? Normal >=60 [facility] Comment on above: Order Comment: Speci men Type: BLOOD SPECIMENOrdering Facility: [facility] Address: [address] [place] [address] Result Comment: Berenice mated Glomerular Filtration Rate [...] GFR. Performed By: #### 1 9123-9, 2776-09, ####[facility] LABCLIA [id number] [place] [address] [place] Glucose [Mass/Vol] 112 mg/dL High 74-99 [facility] Comment on above: Order Comment: Speci men Type: BLOOD SPECIMENOrdering Facility: [facility] Address: [address] [place] [address] Result Comment: The [place] Diabetes Association (ADA) provides guidance for cutoff [...] Standards of Medical Care in Diabetes 2016, [place] Diabetes Association. Diabetes Care. 2016.39(Suppl 1). Performed By: #### 1 9123-9, 2777-, 77314-0 ####[facility] LABIA [id number] [place] [address] [place] Potassium [Moles/Vol] 3.9 mmol/L Normal 3.7-5.1 [facility] Comment on above: Order Comment: Speci men Type: BLOOD SPECIMENOrdering Facility: [facility] Address: [address] [place] [address] Performed By: #### 1 9123-9, 2777-, 76266-2 ####[facility] LABIA [id number] [place] [id number] [place] Protein [Mass/Vol] 4.8 g/dL Low 6.3-8.0 [facility] Comment on above: Order Comment: Speci men Type: BLOOD SPECIMENOrdering Facility: [facility] Address: [address] [place] [address] Performed By: #### 1 9123-9, 2777-1, 34936-8 ####[facility] LABCLIA [id number] [place] [id number] [place] Sodium [Moles/Vol] 134 mmol/L Low 136-144 [facility] Comment on above: Order Comment: Speci men Type: BLOOD SPECIMENOrdering Facility: [facility] Address: [address] [place] [address] Performed By: #### 1 9123-9, 2777, 21087-7 ####[facility] LABIA [id number] [place] [address] [place] Urea nitrogen [Mass/Vol] 26 mg/dL High 7-21 [facility] Comment on above: Order Comment: Speci men Type: BLOOD SPECIMENOrdering Facility: [facility] Address: [address] [place] [address] Performed By: #### 1 9123-9, 2777, 09156-7 ####[facility] LABIA [id number] [place] [id number] [place] HISTORY PHYSICALon HISTORY PHYSICAL Normal [facility] Magnesium SerPl-mCncon 07-13 Magnesium [Mass/Vol] 2.2 mg/dL Normal 1.7-2.3 [facility] Comment on above: Order Comment: Speci men Type: BLOOD SPECIMENOrdering Facility: [facility] Address: [address] [place] [address] Performed By: #### 1 9123-9, 2777-, 29275-0 ####[facility] LABIA [id number] [place] [id number] [place] Phosphate SerPl-mCncon 07-13 Phosphate [Mass/Vol] 2.8 mg/dL Normal 2.7-4.8 [facility] Comment on above: Order Comment: Speci men Type: BLOOD SPECIMENOrdering Facility: [facility] Address: [address] [place] [address] Performed By: #### 1 9123-9, 2777-1, 76721-4 ####[facility] LABCLIA [id number] [place] [address] [place] TYPE + SCREENon 07-13-2023 ABO O Normal [facility] Comment on above: Order Comment: Speci men Type: BLOOD SPECIMENOrdering Facility: [facility] Address: [address] [place] [address] Performed By: #### T SCR ####[facility] BLOOD BANKCLIA [id number] [place] [address] [place] HISTORICAL AB SCR STATUS Negative Normal [facility] Comment on above: Order Comment: Speci men Type: BLOOD SPECIMENOrdering Facility: [facility] Address: [address] [place] [address] Performed By: #### T SCR ####[facility] BLOOD BANKCLIA [id number] [place] [address] [place] Rh Nom (Bld) Positive Normal [facility] Comment on above: Order Comment: Speci men Type: BLOOD SPECIMENOrdering Facility: [facility] Address: [address] [place] [address] Performed By: #### T SCR ####[facility] BLOOD BANKCLIA [id number] [place] [address] [place] TYPE AND SCREEN EXPIRATION 07/16/2023 23:59 Normal [facility] Comment on above: Order Comment: Speci men Type: BLOOD SPECIMENOrdering Facility: [facility] Address: [address] [place] [address] Performed By: #### T SCR ####CC [facility] BLOOD BANKCLIA [id number] [place] [id number] [place] CNPNon 07-06-2023 CNPN Normal [facility] AML MRD BY FCon 06-25-2023 AML MRD BY FC View results in Scan talia Documents link when available. Normal [facility] Comment on above: Order Comment: Speci men Type: BONE MARROW SPECIMENOrdering Facility: [facility] Address: [address] [place] [address] Performed By: #### A MLMRD ####[facility] MOLECULAR MICROCLIA [id number] [place] [address] BONE MARROW ANALYSISon 06-25 ADDENDUM 1: Normal [facility] Comment on above: Order Comment: Speci men Type: BONE MARROW SPECIMENOrdering Facility: [facility] Address: [address] [place] [address] Result Comment: Conv entional cytogenetic studies showed a complex female karyotype.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 In addition, the variant of unknown clinical significance was found in DDX41.The flow cytometry based minimal residual disease (MRD) studies performed on the bone marrow aspirate at [facility], [place], [place] are reported to show an abnormal [...] 10:10 AM Performed By: #### B MRT ####[facility] LABCLIA [id number] [address] [place] CASE REPORT Normal [facility] Comment on above: Order Comment: Speci men Type: BONE MARROW SPECIMENOrdering Facility: [facility] Address: [address] [place] [address] Result Comment: Bone Marrow Pathology Report Case: [id number] Provider: Mike Hughes MD Collected: 06/25/2023 08:55 AMOrdering Location: [place] [address] Received: 06/25/2023 09:18 AMPathologist: Mihaela Flowers MDSpecimens: A) - BONE MARROW ASPIRATE RIGHT POSTERIOR ILIAC CREST B) - BONE MARROW BIOPSY RIGHT POSTERIOR ILIAC CREST C) - BONE MARROW CLOT RIGHT POSTERIOR ILIAC CREST Performed By: #### B MRT ####[facility] LABCLIA [id number] [facility] SOLIMAN [id number] [place] [address] [place] DIAGNOSIS COMMENT Normal [facility] Comment on above: Order Comment: Speci men Type: BONE MARROW SPECIMENOrdering Facility: [facility] Address: [address] [place] [address] Result Comment: The patient is a 68-year-old [...] Hernandez from the hematopathology section at the [facility], and he concurs with the above rendered final diagnosis and interpretation.Laboratory Developed Test (LDT) Disclaimer:Performance characteristics of immunohistochemical, immunofluorescent and chromogenic in-situ hybridization tests have been determined by the performing laboratory within [facility]???s Aurelio Noguera Pathology and Laboratory Medicine [place] ([facility], [facility], [facility], [facility], [facility], [facility], [facility], or [facility]) in a manner consistent with CLIA requirements. One or more of these tests have not been cleared or approved by the FDA. [facility] is regulated under CLIA as qualified to perform high-complexity testing. These tests are used for clinical purposes. They should not be regarded as investigational or for research. Positive and negative controls stain appropriately. Performed By: #### B MRT ####[facility] LABCLIA [id number] [address] OF [place] FINAL DIAGNOSIS Normal [facility] Comment on above: Order Comment: Elvia escobar Type: BONE MARROW SPECIMENOrdering Facility: [facility] Address: [address] [place] [address] Result Comment: A-C. 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, [address] [place] [address] CLIA# [id number] Director: Boris Wood M.D. Performed By: #### B MRT ####[facility] LABCLIA [id number] [address] [place] GROSS DESCRIPTION Normal [facility] Comment on above: Order Comment: Rochellei luz Type: BONE MARROW SPECIMENOrdering Facility: [facility] Address: [address] [place] [address] Result Comment: A. B ONE MARROW ASPIRATE [...] one cassette. Performed By: #### B MRT ####[facility] LABCLIA [id number] [facility] [id number] STATES [place] MICROSCOPIC DESCRIPTION Normal [facility] Comment on above: Order Comment: Speci men Type: BONE MARROW SPECIMENOrdering Facility: [facility] Address: [address] [place] [address] Result Comment: GENNY PHERAL BLOOD: N0 CBC data or peripheral blood smear available for review.BONE MARROW ASPIRATE: Differential counts performed on the aspicular, hemodilute touch imprint may not be entirely advertising account representative of the true marrow cellularity.Result Normal [...] coat stored. Performed By: #### B MRT ####[facility] LABCLIA [id number] [place] [address] [place] BONE MARROW CHROMOSOME ANALo n 06-25-2023 CHROMOSOME BM Normal [facility] Comment on above: Order Comment: Order ing Facility: [facility] Address: [address] [place] [address] Result Comment: Edel knight Accession Number: [id number]: Yara Hughesologist: Janki Pathology No: [id number] diagnosis: Acute Myeloid Leukemia Not Having AchievedRemissionSpecimen [...] reviewed by Jovanny Hooper, PhD, FACMGPerformed by [facility] CenterPathology and Laboratory Medicine InstituteDivision of Molecular PathologyCytogenetics Lab, [id number] [facility]. [place], [place] [address]Phone: Toll free: Performed By: #### C [facility] ####[facility] [id number] [address] OF [facility] BRIEF OP NOTon 06-25-2023 BRIEF OP NOT Normal [facility] CNOVSPon 06-25-2023 CNOVSP Normal [facility] CT BIOPSY BONE MARROW (HEMO) on 06-25-2023 CT BIOPSY BONE MARROW (HEMO) Normal [facility] DNA EXTRACTION BONE MARROW ( BUFFY COAT)on 06-25-2023 DNA EXTRACTION BONE MARROW (BUFFY COAT) Normal [facility] Comment on above: Order Comment: Speci men Type: BONE MARROW SPECIMENOrdering Facility: [facility] Address: [address] [place] [address] Result Comment: This specimen was received and successfully processed for future DNA purification should molecular testing be needed. Specimens will be available for 3 years from date of collection.To order testing on this specimen for [facility] patients, please place an [facility] order for DNA and RNA Clinical Testing (SQNUCADD). To order testing for patients outside of the [facility] system, please request DNA and RNA for Clinical Testing, order code [id number].If additional paperwork is required for testing, please send completed forms via secure email to . Performed By: #### N UCBUF ####[facility]LLUMINA LIMSCLIA [id number] [address] FLOW CYTOMETRY FOR LEUKEMIA/ LYMPHOMA (FCLL) PERFORMABLEon 06-25-2023 FLOW CYTOMETRY ORDER STATUS A bone marrow sample was received for potential flow cytometry studies. Following morphologic review, flow cytometric studies will be ordered by the hematopathologist if testing is indicated. Normal [facility] Comment on above: Order Comment: Speci men Type: BONE MARROW SPECIMENOrdering Facility: [facility] Address: [address] [place] [address] Performed By: #### F CLLP ####[facility] LABCLIA [id number] [address] Flow Cytometry Order Status A bone marrow sample was received for potential flow cytometry studies. Following morphologic review, flow cytometric studies will be ordered by the hematopathologist if testing is indicated. [facility] FLT3 ITD HN BONE MARROWon [facility] SIGNOUT PATHOLOGIST [id number] Normal [facility] Comment on above: Order Comment: Speci men Type: BONE MARROW SPECIMENOrdering Facility: [facility] Address: [address] [place] [address] Performed By: #### F IVONNE FRANKLIN ####[facility] ILLUM[facility] LIMSCLIA [id number] [place] [address] [place] FLT3 ITD HN PANEL BONE MARROW Normal [facility] Comment on above: Order Comment: Specmaria eugenia men Type: BONE MARROW SPECIMENOrdering Facility: [facility] Address: [address] [place] [address] Result Comment: FLT3 Internal Tandem Duplication (ITD) Mutation TestingLaboratory Accession Number: [id number] Internal Tandem Duplication (ITD) mutation: Not DetectedComment:FLT3/ITD [...] from the specimen provided. Regions of the GZN8icsoqssz kinase receptor gene are subjected to the [...] was developed and its performance characteristics determinedby [facility]'s [facility] Pathology and LaboratoryMedicine [place] ([facility]ITALPLWY). It has not been cleared or approved bythe FDA. -[facility] is regulated under CLIA as certified to perform high-complexity testing. This test is used for clinical purposes. It shouldnot be regarded as investigational or for research.Testing and interpretation performed at [facility], [address] [place] [address]. CLIA Number: [id number] reviewed by Zenia Mae, PhD, HCLD Performed By: #### F 3IKim, IVONNE ####[facility] [address] GiveSCLIA [id number] [place] [address] [place] HISTORY PHYSICALon HISTORY PHYSICAL Normal [facility] MYELOID NGS PANEL BONE MARRO Won 06-25-2023 MYELOID NGS PANEL BONE MARROW Normal [facility] Comment on above: Order Comment: Speci men Type: BONE MARROW SPECIMENOrdering Facility: [facility] Address: [address] [place] [address] Result Comment: Myel oid NGS Panel Bone MarrowLaboratory Accession Number: [id number]:Please see linked document and/or separate report for full result whenavailable.As reviewed by Zenia Mae, PhD, HCLD Performed By: #### F 3IM, PATELSM ####[facility] Instagram LIMSCLIA [id number] [place] [address] [place] NURSING PROGon 06-25-2023 NURSING PROG Normal [facility] PT EDon 06-25-2023 PT ED Normal [facility] CNPNon 06-22-2023 CNPN Normal [facility] NURSING PROGon 06-20-2023 NURSING PROG Normal [facility] CNPNon 06-14-2023 CNPN Normal [facility] CNCOon 06-08-2023 CNCO Letter Text Normal [facility] CASE MANAGEMon 06-07-2023 CASE MANAGEM Normal [facility] CBC W Auto Differential pane l (Bld)on 06-07-2023 Anisocytosis Ql (Bld) Present Normal [facility] Comment on above: Order Comment: Speci men Type: BLOOD SPECIMENOrdering Facility: [facility] Address: [address] [place] [address] Performed By: #### 5 7021-8 ####[facility] LABCLIA [id number] [place] [address] [place] Basophils (Bld) [#/Vol] 0.00 10*3/uL Normal <0.11 [facility] Comment on above: Order Comment: Speci men Type: BLOOD SPECIMENOrdering Facility: [facility] Address: [address] [place] [address] Performed By: #### 5 7021-8 ####[facility] LABCLIA [id number] [place] [address] [place] Basophils/100 WBC (Bld) 0.0 % Normal [facility] Comment on above: Order Comment: Speci men Type: BLOOD SPECIMENOrdering Facility: [facility] Address: [address] [place] [address] Performed By: #### 5 7021-8 ####[facility] LABCLIA [id number] [place] [address] [place] Dacrocytes LM Ql (Bld) Few Normal [facility] Comment on above: Order Comment: Speci men Type: BLOOD SPECIMENOrdering Facility: [facility] Address: [address] [place] [address] Performed By: #### 5 7021-8 ####[facility] LABCLIA [id number] [place] [address] [place] Differential cell count method Nom (Bld) Manual Normal [facility] Comment on above: Order Comment: Speci men Type: BLOOD SPECIMENOrdering Facility: [facility] Address: [address] [place] [address] Performed By: #### 5 7021-8 ####[facility] LABCLIA [id number] [place] [address] [place] Eosinophils (Bld) [#/Vol] 0.07 10*3/uL Normal <0.46 [facility] Comment on above: Order Comment: Speci men Type: BLOOD SPECIMENOrdering Facility: [facility] Address: [address] [place] [address] Performed By: #### 5 7021-8 ####[facility] LABCLIA [id number] [place] [address] [place] Eosinophils/100 WBC (Bld) 6.0 % Normal [facility] Comment on above: Order Comment: Speci men Type: BLOOD SPECIMENOrdering Facility: [facility] Address: [address] [place] [address] Performed By: #### 5 7021-8 ####[facility] LABCLIA [id number] [place] [address] [place] Erythrocyte distribution width (RBC) [Ratio] 18.3 % High 11.5-15.0 [facility] Comment on above: Order Comment: Speci men Type: BLOOD SPECIMENOrdering Facility: [facility] Address: [address] [place] [address] Performed By: #### 5 7021-8 ####[facility] LABCLIA [id number] [place] [address] [place] Hematocrit (Bld) [Volume fraction] 21.4 % Low 36.0-46.0 [facility] Comment on above: Order Comment: Speci men Type: BLOOD SPECIMENOrdering Facility: [facility] Address: [address] [place] [address] Performed By: #### 5 7021-8 ####[facility] LABIA [id number] [place] [address] [place] Hemoglobin (Bld) [Mass/Vol] 7.3 g/dL Low 11.5-15.5 [facility] Comment on above: Order Comment: Speci men Type: BLOOD SPECIMENOrdering Facility: [facility] Address: [address] [place] [address] Performed By: #### 5 7021-8 ####[facility] LABIA [id number] [place] [address] [place] Lymphocytes (Bld) [#/Vol] 0.96 10*3/uL Low 1.00-4.00 [facility] Comment on above: Order Comment: Speci men Type: BLOOD SPECIMENOrdering Facility: [facility] Address: [address] [place] [address] Performed By: #### 5 7021-8 ####[facility] LABIA [id number] [place] [address] [place] Lymphocytes/100 WBC (Bld) 82.0 % Normal [facility] Comment on above: Order Comment: Speci men Type: BLOOD SPECIMENOrdering Facility: [facility] Address: [address] [place] [address] Performed By: #### 5 7021-8 ####[facility] LABIA [id number] [place] [address] [place] MCH (RBC) [Entitic mass] 32.2 pg Normal 26.0-34.0 [facility] Comment on above: Order Comment: Speci men Type: BLOOD SPECIMENOrdering Facility: [facility] Address: [address] [place] [address] Performed By: #### 5 7021-8 ####[facility] LABCLIA [id number] [place] [address] [place] MCHC (RBC) [Mass/Vol] 34.1 g/dL Normal 30.5-36.0 [facility] Comment on above: Order Comment: Speci men Type: BLOOD SPECIMENOrdering Facility: [facility] Address: [address] [place] [address] Performed By: #### 5 7021-8 ####[facility] LABIA [id number] [place] [address] [place] MCV (RBC) [Entitic vol] 94.3 fL Normal 80.0-100.0 [facility] Comment on above: Order Comment: Speci men Type: BLOOD SPECIMENOrdering Facility: [facility] Address: [address] [place] [address] Performed By: #### 5 7021-8 ####[facility] LABIA [id number] [place] [address] [place] Monocytes (Bld) [#/Vol] 0.00 10*3/uL Normal <0.87 [facility] Comment on above: Order Comment: Speci men Type: BLOOD SPECIMENOrdering Facility: [facility] Address: [address] [place] [address] Performed By: #### 5 7021-8 ####[facility] LABCLIA [id number] [place] [address] [place] Monocytes/100 WBC (Bld) 0.0 % Normal [facility] Comment on above: Order Comment: Speci men Type: BLOOD SPECIMENOrdering Facility: [facility] Address: [address] [place] [address] Performed By: #### 5 7021-8 ####[facility] LABCLIA [id number] [place] [address] [place] Neutrophils (Bld) [#/Vol] 0.14 10*3/uL Low 1.45-7.50 [facility] Comment on above: Order Comment: Speci men Type: BLOOD SPECIMENOrdering Facility: [facility] Address: [address] [place] [address] Performed By: #### 5 7021-8 ####[facility] LABCLIA [id number] [place] [address] [place] Neutrophils/100 WBC (Bld) 12.0 % Normal [facility] Comment on above: Order Comment: Speci men Type: BLOOD SPECIMENOrdering Facility: [facility] Address: [address] [place] [address] Performed By: #### 5 7021-8 ####[facility] LABCLIA [id number] [place] [address] [place] Nucleated RBC (Bld) [#/Vol] 10*3/uL Normal <0.01 [facility] Comment on above: Order Comment: Speci men Type: BLOOD SPECIMENOrdering Facility: [facility] Address: [address] [place] [address] Performed By: #### 5 7021-8 ####[facility] LABCLIA [id number] [place] [address] [place] Nucleated RBC/100 WBC (Bld) [Ratio] 0.0 /100 WBC Normal [facility] Comment on above: Order Comment: Speci men Type: BLOOD SPECIMENOrdering Facility: [facility] Address: [address] [place] [address] Performed By: #### 5 7021-8 ####[facility] LABCLIA [id number] [place] [address] [place] Ovalocytes LM Ql (Bld) Few Normal [facility] Comment on above: Order Comment: Speci men Type: BLOOD SPECIMENOrdering Facility: [facility] Address: [address] [place] [address] Performed By: #### 5 7021-8 ####[facility] LABCLIA [id number] [place] [address] [place] Platelet mean volume (Bld) [Entitic vol] Normal [facility] Comment on above: Order Comment: Speci men Type: BLOOD SPECIMENOrdering Facility: [facility] Address: [address] [place] [address] Result Comment: Unab le to Report. Performed By: #### 5 7021-8 ####[facility] LABIA [id number] [place] [address] [place] Platelets (Bld) [#/Vol] 9 10*3/uL Critically low 150-400 [facility] Comment on above: Order Comment: Speci men Type: BLOOD SPECIMENOrdering Facility: [facility] Address: [address] [place] [address] Result Comment: Resu lts checked and verified.No clot detected. Performed By: #### 5 7021-8 ####[facility] LABIA [id number] [place] [address] [place] Platelets Estimate (Bld) [#/Vol] Decreased Normal [facility] Comment on above: Order Comment: Speci men Type: BLOOD SPECIMENOrdering Facility: [facility] Address: [address] [place] [address] Performed By: #### 5 7021-8 ####[facility] LABCLIA [id number] [place] [address] [place] Polychromasia LM Ql (Bld) Slight Normal [facility] Comment on above: Order Comment: Speci men Type: BLOOD SPECIMENOrdering Facility: [facility] Address: [address] [place] [address] Performed By: #### 5 7021-8 ####[facility] LABCLIA [id number] [place] [address] [place] RBC (Bld) [#/Vol] 2.27 10*6/uL Low 3.90-5.20 [facility] Comment on above: Order Comment: Speci men Type: BLOOD SPECIMENOrdering Facility: [facility] Address: [address] [place] [address] Performed By: #### 5 7021-8 ####[facility] LABCLIA [id number] [place] [address] [place] RBC FRAGMENTS Few Abnormal None Seen [facility] Comment on above: Order Comment: Speci men Type: BLOOD SPECIMENOrdering Facility: [facility] Address: [address] [place] [address] Performed By: #### 5 7021-8 ####[facility] LABCLIA [id number] [place] [address] [place] RED CELL MORPH Reviewed: see result s of individual morphologies Normal [facility] Comment on above: Order Comment: Speci men Type: BLOOD SPECIMENOrdering Facility: [facility] Address: [address] [place] [address] Performed By: #### 5 7021-8 ####[facility] LABCLIA [id number] [place] [address] [place] WBC (Bld) [#/Vol] 1.17 10*3/uL Low 3.70-11.00 [facility] Comment on above: Order Comment: Speci men Type: BLOOD SPECIMENOrdering Facility: [facility] Address: [address] [place] [address] Result Comment: No c lot detected. Performed By: #### 5 7021-8 ####[facility] LABCLIA [id number] [place] [address] [place] CNDSon 06-07-2023 CNDS Normal [facility] Comprehensive metabolic 2000 panelon 06-07-2023 Albumin [Mass/Vol] 3.2 g/dL Low 3.9-4.9 [facility] Comment on above: Order Comment: Speci men Type: BLOOD SPECIMENOrdering Facility: [facility] Address: [address] [place] [address] Performed By: #### 2 4323-8, 34028-2, 3083-, 2776- ####[facility] LABCLIA [id number] [place] [address] [place] ALP [Catalytic activity/Vol] 63 U/L Normal 34-123 [facility] Comment on above: Order Comment: Speci men Type: BLOOD SPECIMENOrdering Facility: [facility] Address: [address] [place] [address] Performed By: #### 2 4323-8, 23996-6, 3083-, 2776- ####[facility] LABCLIA [id number] [place] [address] [place] ALT [Catalytic activity/Vol] 18 U/L Normal 7-38 [facility] Comment on above: Order Comment: Speci men Type: BLOOD SPECIMENOrdering Facility: [facility] Address: [address] [place] [address] Performed By: #### 2 4323-8, 92349-2, 3083-, 2776-09 ####[facility] LABCLIA [id number] [place] [address] [place] Anion gap [Moles/Vol] 10 mmol/L Normal 9-18 [facility] Comment on above: Order Comment: Speci men Type: BLOOD SPECIMENOrdering Facility: [facility] Address: [address] [place] [address] Performed By: #### 2 4323-8, 06269-6, 3083-, 2776- ####[facility] LABCLIA [id number] [place] [id number] [place] AST [Catalytic activity/Vol] 15 U/L Normal 13-35 [facility] Comment on above: Order Comment: Speci men Type: BLOOD SPECIMENOrdering Facility: [facility] Address: [address] [place] [address] Performed By: #### 2 4323-8, 07761-3, 3083-, 2776- ####[facility] LABCLIA [id number] [address] [address] [place] Bilirubin [Mass/Vol] 0.3 mg/dL Normal 0.2-1.3 [facility] Comment on above: Order Comment: Speci men Type: BLOOD SPECIMENOrdering Facility: [facility] Address: [address] [place] [address] Performed By: #### 2 4323-8, 01828-0, 3083-, 2776- ####[facility] LABCLIA [id number] [place] [address] [place] Calcium [Mass/Vol] 8.7 mg/dL Normal 8.5-10.2 [facility] Comment on above: Order Comment: Speci men Type: BLOOD SPECIMENOrdering Facility: [facility] Address: [address] [place] [address] Performed By: #### 2 4323-8, 70949-0, 3083-09, 2776-09 ####[facility] LABCLIA [id number] [place] [address] [place] Chloride [Moles/Vol] 110 mmol/L High 97-105 [facility] Comment on above: Order Comment: Speci men Type: BLOOD SPECIMENOrdering Facility: [facility] Address: [address] [place] [address] Performed By: #### 2 4323-8, 47925-8, 3083-, 2776-09 ####[facility] LABCLIA [id number] [place] [id number] [place] CO2 [Moles/Vol] 21 mmol/L Low 22-30 [facility] Comment on above: Order Comment: Speci men Type: BLOOD SPECIMENOrdering Facility: [facility] Address: [address] [place] [address] Performed By: #### 2 4323-8, 14607-2, 3083-1, 2776- ####[facility] LABCLIA [id number] [place] [address] [place] Creatinine [Mass/Vol] 1.09 mg/dL High 0.58-0.96 [facility] Comment on above: Order Comment: Speci men Type: BLOOD SPECIMENOrdering Facility: [facility] Address: [address] [place] [address] Performed By: #### 2 4323-8, 53694-9, 3083-, 2776- ####[facility] LABIA [id number] [place] [address] [place] Creatinine and Glomerular filtration rate.predicted panel (S/P/Bld) 55 mL/min/1.73m??? Low >=60 [facility] Comment on above: Order Comment: Speci men Type: BLOOD SPECIMENOrdering Facility: [facility] Address: [address] [place] [address] Result Comment: Berenice mated Glomerular Filtration Rate [...] actual GFR. Performed By: #### 2 4323-8, 42101-6, 3083-, 2776- ####[facility] LABIA [id number] [place] [id number] [place] Glucose [Mass/Vol] 107 mg/dL High 74-99 [facility] Comment on above: Order Comment: Speci men Type: BLOOD SPECIMENOrdering Facility: [facility] Address: [address] [place] [address] Result Comment: The [place] Diabetes Association (ADA) provides guidance for cutoff [...] Standards of Medical Care in Diabetes 2016, [place] Diabetes Association. Diabetes Care. 2016.39(Suppl 1). Performed By: #### 2 4323-8, 86831-1, 3083-, 2776-09 ####[facility] LABCLIA [id number] [place] [address] [place] Potassium [Moles/Vol] 3.8 mmol/L Normal 3.7-5.1 [facility] Comment on above: Order Comment: Speci men Type: BLOOD SPECIMENOrdering Facility: [facility] Address: [address] [place] [address] Performed By: #### 2 4323-8, , 3083-09, 2776-09 ####[facility] LABIA [id number] [place] [address] [place] Protein [Mass/Vol] 5.4 g/dL Low 6.3-8.0 [facility] Comment on above: Order Comment: Speci men Type: BLOOD SPECIMENOrdering Facility: [facility] Address: [address] [place] [address] Performed By: #### 2 4323-8, 62237-7, 3083-09, 2776-09 ####[facility] LABIA [id number] [place] [address] [place] Sodium [Moles/Vol] 141 mmol/L Normal 136-144 [facility] Comment on above: Order Comment: Speci men Type: BLOOD SPECIMENOrdering Facility: [facility] Address: [address] [place] [address] Performed By: #### 2 4323-8, 25247-2, 3083-09, 2776-09 ####[facility] LABCLIA [id number] [address] [address] [place] Urea nitrogen [Mass/Vol] 14 mg/dL Normal 7-21 [facility] Comment on above: Order Comment: Speci men Type: BLOOD SPECIMENOrdering Facility: [facility] Address: [address] [place], [place] [address] Performed By: #### 2 4323-8, 78397-2, 3083-09, 2776-09 ####[facility] LABCLIA [id number] [address] [address] [place] Magnesium SerPl-nc 06-07 Magnesium [Mass/Vol] 2.1 mg/dL Normal 1.7-2.3 [facility] Comment on above: Order Comment: Speci men Type: BLOOD SPECIMENOrdering Facility: [facility] Address: [address] [place], [place] [address] Performed By: #### 2 4323-8, 08879-8, 3083-09, 2776-09 ####[facility] LABCLIA [id number] [place] [id number] [place] Phosphate SerPl-mCncon 06-07 Phosphate [Mass/Vol] 2.5 mg/dL Low 2.7-4.8 [facility] Comment on above: Order Comment: Speci men Type: BLOOD SPECIMENOrdering Facility: [facility] Address: [address] [place], [place] [address] Performed By: #### 2 4323-8, 97225-2, 3083-09, 2776- ####[facility] LABCLIA [id number] [address] [address] [place] SOCIAL WORKon 06-07-2023 SOCIAL WORK Normal [facility] SOCIAL WORK Normal [facility] Urate SerPl-mCncon Urate [Mass/Vol] 2.8 mg/dL Normal 2.5-6.6 [facility] Comment on above: Order Comment: Speci men Type: BLOOD SPECIMENOrdering Facility: [facility] Address: [address] [place] [address] Performed By: #### 2 4323-8, 72040-9, 3084-1, 2777-1 ####[facility] LABCLIA [id number] [place] [address] [place] CBC W Auto Differential pane l (Bld)on 06-06-2023 Anisocytosis Ql (Bld) Present Normal [facility] Comment on above: Order Comment: Speci men Type: BLOOD SPECIMENOrdering Facility: [facility] Address: [address] [place] [address] Performed By: #### 5 7021-8 ####[facility] LABCLIA [id number] [place] [address] [place] Basophils (Bld) [#/Vol] 0.00 10*3/uL Normal <0.11 [facility] Comment on above: Order Comment: Speci men Type: BLOOD SPECIMENOrdering Facility: [facility] Address: [address] [place] [address] Performed By: #### 5 7021-8 ####[facility] LABCLIA [id number] [place] [address] [place] Basophils/100 WBC (Bld) 0.0 % Normal [facility] Comment on above: Order Comment: Speci men Type: BLOOD SPECIMENOrdering Facility: [facility] Address: [address] [place] [address] Performed By: #### 5 7021-8 ####[facility] LABCLIA [id number] [place] [address] [place] Dacrocytes LM Ql (Bld) Few Normal [facility] Comment on above: Order Comment: Speci men Type: BLOOD SPECIMENOrdering Facility: [facility] Address: [address] [place] [address] Performed By: #### 5 7021-8 ####[facility] LABCLIA [id number] [place] [address] [place] Differential cell count method Nom (Bld) Manual Normal [facility] Comment on above: Order Comment: Speci men Type: BLOOD SPECIMENOrdering Facility: [facility] Address: [address] [place] [address] Performed By: #### 5 7021-8 ####[facility] LABCLIA [id number] [place] [address] [place] Eosinophils (Bld) [#/Vol] 0.00 10*3/uL Normal <0.46 [facility] Comment on above: Order Comment: Speci men Type: BLOOD SPECIMENOrdering Facility: [facility] Address: [address] [place] [address] Performed By: #### 5 7021-8 ####[facility] LABCLIA [id number] [place] [address] [place] Eosinophils/100 WBC (Bld) 0.4 % Normal [facility] Comment on above: Order Comment: Speci men Type: BLOOD SPECIMENOrdering Facility: [facility] Address: [address] [place] [address] Performed By: #### 5 7021-8 ####[facility] LABCLIA [id number] [place] [address] [place] Erythrocyte distribution width (RBC) [Ratio] 18.8 % High 11.5-15.0 [facility] Comment on above: Order Comment: Speci men Type: BLOOD SPECIMENOrdering Facility: [facility] Address: [address] [place] [address] Performed By: #### 5 7021-8 ####[facility] LABCLIA [id number] [place] [address] [place] Hematocrit (Bld) [Volume fraction] 28.5 % Low 36.0-46.0 [facility] Comment on above: Order Comment: Speci men Type: BLOOD SPECIMENOrdering Facility: [facility] Address: [address] [place] [address] Performed By: #### 5 7021-8 ####[facility] LABIA [id number] [place] [address] [place] Hemoglobin (Bld) [Mass/Vol] 9.6 g/dL Low 11.5-15.5 [facility] Comment on above: Order Comment: Speci men Type: BLOOD SPECIMENOrdering Facility: [facility] Address: [address] [place] [address] Performed By: #### 5 7021-8 ####[facility] LABIA [id number] [place] [address] [place] Lymphocytes (Bld) [#/Vol] 0.86 10*3/uL Low 1.00-4.00 [facility] Comment on above: Order Comment: Speci men Type: BLOOD SPECIMENOrdering Facility: [facility] Address: [address] [place] [address] Performed By: #### 5 7021-8 ####[facility] LABIA [id number] [place] [address] [place] Lymphocytes/100 WBC (Bld) 91.2 % Normal [facility] Comment on above: Order Comment: Speci men Type: BLOOD SPECIMENOrdering Facility: [facility] Address: [address] [place] [address] Performed By: #### 5 7021-8 ####[facility] LABIA [id number] [place] [address] [place] MCH (RBC) [Entitic mass] 32.0 pg Normal 26.0-34.0 [facility] Comment on above: Order Comment: Speci men Type: BLOOD SPECIMENOrdering Facility: [facility] Address: [address] [place] [address] Performed By: #### 5 7021-8 ####[facility] LABIA [id number] [place] [address] [place] MCHC (RBC) [Mass/Vol] 33.7 g/dL Normal 30.5-36.0 [facility] Comment on above: Order Comment: Speci men Type: BLOOD SPECIMENOrdering Facility: [facility] Address: [address] [place] [address] Performed By: #### 5 7021-8 ####[facility] LABIA [id number] [place] [address] [place] MCV (RBC) [Entitic vol] 95.0 fL Normal 80.0-100.0 [facility] Comment on above: Order Comment: Speci men Type: BLOOD SPECIMENOrdering Facility: [facility] Address: [address] [place] [address] Performed By: #### 5 7021-8 ####[facility] LABIA [id number] [place] [address] [place] Monocytes (Bld) [#/Vol] 0.00 10*3/uL Normal <0.87 [facility] Comment on above: Order Comment: Speci men Type: BLOOD SPECIMENOrdering Facility: [facility] Address: [address] [place] [address] Performed By: #### 5 7021-8 ####[facility] LABCLIA [id number] [place] [address] [place] Monocytes/100 WBC (Bld) 0.0 % Normal [facility] Comment on above: Order Comment: Speci men Type: BLOOD SPECIMENOrdering Facility: [facility] Address: [address] [place] [address] Performed By: #### 5 7021-8 ####[facility] LABCLIA [id number] [place] [address] [place] Neutrophils (Bld) [#/Vol] 0.08 10*3/uL Low 1.45-7.50 [facility] Comment on above: Order Comment: Speci men Type: BLOOD SPECIMENOrdering Facility: [facility] Address: [address] [place] [address] Performed By: #### 5 7021-8 ####[facility] LABCLIA [id number] [place] [address] [place] Neutrophils/100 WBC (Bld) 8.4 % Normal [facility] Comment on above: Order Comment: Speci men Type: BLOOD SPECIMENOrdering Facility: [facility] Address: [address] [place] [address] Performed By: #### 5 7021-8 ####[facility] LABCLIA [id number] [place] [address] [place] Nucleated RBC (Bld) [#/Vol] 10*3/uL Normal <0.01 [facility] Comment on above: Order Comment: Speci men Type: BLOOD SPECIMENOrdering Facility: [facility] Address: [address] [place] [address] Performed By: #### 5 7021-8 ####[facility] LABCLIA [id number] [place] [address] [place] Nucleated RBC/100 WBC (Bld) [Ratio] 0.0 /100 WBC Normal [facility] Comment on above: Order Comment: Speci men Type: BLOOD SPECIMENOrdering Facility: [facility] Address: [address] [place] [address] Performed By: #### 5 7021-8 ####[facility] LABCLIA [id number] [place] [address] [place] Ovalocytes LM Ql (Bld) Few Normal [facility] Comment on above: Order Comment: Speci men Type: BLOOD SPECIMENOrdering Facility: [facility] Address: [address] [place] [address] Performed By: #### 5 7021-8 ####[facility] LABIA [id number] [place] [address] [place] Platelet mean volume (Bld) [Entitic vol] Normal [facility] Comment on above: Order Comment: Speci men Type: BLOOD SPECIMENOrdering Facility: [facility] Address: [address] [place] [address] Result Comment: Unab le to Report. Performed By: #### 5 7021-8 ####[facility] LABIA [id number] [place] [address] [place] Platelets (Bld) [#/Vol] 12 10*3/uL Low 150-400 [facility] Comment on above: Order Comment: Speci men Type: BLOOD SPECIMENOrdering Facility: [facility] Address: [address] [place] [address] Result Comment: Resu lts checked and verified.No clot detected. Performed By: #### 5 7021-8 ####[facility] LABIA [id number] [place] [address] [place] Platelets Estimate (Bld) [#/Vol] Decreased Normal [facility] Comment on above: Order Comment: Speci men Type: BLOOD SPECIMENOrdering Facility: [facility] Address: [address] [place] [address] Performed By: #### 5 7021-8 ####[facility] LABIA [id number] [place] [address] [place] RBC (Bld) [#/Vol] 3.00 10*6/uL Low 3.90-5.20 [facility] Comment on above: Order Comment: Speci men Type: BLOOD SPECIMENOrdering Facility: [facility] Address: [address] [place] [address] Performed By: #### 5 7021-8 ####[facility] LABCLIA [id number] [place] [address] [place] RBC FRAGMENTS Few Abnormal None Seen [facility] Comment on above: Order Comment: Speci men Type: BLOOD SPECIMENOrdering Facility: [facility] Address: [address] [place] [address] Performed By: #### 5 7021-8 ####[facility] LABCLIA [id number] [place] [address] [place] RED CELL MORPH Reviewed: see result s of individual morphologies Normal [facility] Comment on above: Order Comment: Speci men Type: BLOOD SPECIMENOrdering Facility: [facility] Address: [address] [place] [address] Performed By: #### 5 7021-8 ####[facility] LABIA [id number] [place] [address] [place] WBC (Bld) [#/Vol] 0.94 10*3/uL Low 3.70-11.00 [facility] Comment on above: Order Comment: Speci men Type: BLOOD SPECIMENOrdering Facility: [facility] Address: [address] [place] [address] Result Comment: No c lot detected. Performed By: #### 5 7021-8 ####[facility] LABIA [id number] [place] [address] [place] CBC panel Auto (Bld)on 06-06 Erythrocyte distribution width (RBC) [Ratio] 18.6 % High 11.5-15.0 [facility] Comment on above: Order Comment: Speci men Type: BLOOD SPECIMENOrdering Facility: [facility] Address: [address] [place] [address] Performed By: #### 5 8410-2 ####[facility] LABCLIA [id number] [place] [address] [place] Hematocrit (Bld) [Volume fraction] 21.7 % Low 36.0-46.0 [facility] Comment on above: Order Comment: Speci men Type: BLOOD SPECIMENOrdering Facility: [facility] Address: [address] [place] [address] Performed By: #### 5 8410-2 ####[facility] LABIA [id number] [place] [address] [place] Hemoglobin (Bld) [Mass/Vol] 7.3 g/dL Low 11.5-15.5 [facility] Comment on above: Order Comment: Speci men Type: BLOOD SPECIMENOrdering Facility: [facility] Address: [address] [place] [address] Performed By: #### 5 8410-2 ####[facility] LABIA [id number] [address] [place] MCH (RBC) [Entitic mass] 32.2 pg Normal 26.0-34.0 [facility] Comment on above: Order Comment: Speci men Type: BLOOD SPECIMENOrdering Facility: [facility] Address: [address] [place] [address] Performed By: #### 5 8410-2 ####[facility] LABIA [id number] [address] [place] MCHC (RBC) [Mass/Vol] 33.6 g/dL Normal 30.5-36.0 [facility] Comment on above: Order Comment: Speci men Type: BLOOD SPECIMENOrdering Facility: [facility] Address: [address] [place], [place] [address] Performed By: #### 5 8410-2 ####[facility] LABIA [id number] [address] [place] MCV (RBC) [Entitic vol] 95.6 fL Normal 80.0-100.0 [facility] Comment on above: Order Comment: Speci men Type: BLOOD SPECIMENOrdering Facility: [facility] Address: [address] [place] [address] Performed By: #### 5 8410-2 ####[facility] [id number] [place] [address] [place] Nucleated RBC (Bld) [#/Vol] 0.02 10*3/uL High <0.01 [facility] Comment on above: Order Comment: Speci men Type: BLOOD SPECIMENOrdering Facility: [facility] Address: [address] [place] [address] Performed By: #### 5 8410-2 ####[facility] [id number] [place] [address] [place] Platelet mean volume (Bld) [Entitic vol] Normal [facility] Comment on above: Order Comment: Speci men Type: BLOOD SPECIMENOrdering Facility: [facility] Address: [address] [place] [address] Result Comment: Unab le to Report. Performed By: #### 5 8410-2 ####[facility] [id number] [place] [address] [place] Platelets (Bld) [#/Vol] 14 10*3/uL Low 150-400 [facility] Comment on above: Order Comment: Speci men Type: BLOOD SPECIMENOrdering Facility: [facility] Address: [address] [place] [address] Result Comment: Resu lts checked and verified.No clot detected. Performed By: #### 5 8410-2 ####[facility] [id number] [place] [address] [place] RBC (Bld) [#/Vol] 2.27 10*6/uL Low 3.90-5.20 [facility] Comment on above: Order Comment: Speci men Type: BLOOD SPECIMENOrdering Facility: [facility] Address: [address] [place] [address] Performed By: #### 5 8410-2 ####[facility] LABCLIA [id number] [place] [address] [place] WBC (Bld) [#/Vol] 1.17 10*3/uL Low 3.70-11.00 [facility] Comment on above: Order Comment: Speci men Type: BLOOD SPECIMENOrdering Facility: [facility] Address: [address] [place] [address] Result Comment: No c lot detected. Performed By: #### 5 8410-2 ####[facility] LABCLIA [id number] [place] [address] [facility] Comprehensive metabolic 2000 panelon 06-06-2023 Albumin [Mass/Vol] 3.6 g/dL Low 3.9-4.9 [facility] Comment on above: Order Comment: Speci men Type: BLOOD SPECIMENOrdering Facility: [facility] Address: [address] [place] [address] Performed By: #### 2 777-1, 3084-1, 31849-4, 52108-9 ####[facility] LABIA [id number] [place] [address] [place] ALP [Catalytic activity/Vol] 59 U/L Normal 34-123 [facility] Comment on above: Order Comment: Speci men Type: BLOOD SPECIMENOrdering Facility: [facility] Address: [address] [place], [place] [address] Performed By: #### 2 777-1, 3084-1, 97973-4, 91953-4 ####[facility] LABCLIA [id number] [address] [place] ALT [Catalytic activity/Vol] 21 U/L Normal 7-38 [facility] Comment on above: Order Comment: Speci men Type: BLOOD SPECIMENOrdering Facility: [facility] Address: [address] [place] [address] Performed By: #### 2 777-1, 3084-1, 20814-4, 84663-8 ####[facility] LABCLIA [id number] [address] [address] [place] Anion gap [Moles/Vol] 11 mmol/L Normal 9-18 [facility] Comment on above: Order Comment: Speci men Type: BLOOD SPECIMENOrdering Facility: [facility] Address: [address] [place], [place] [address] Performed By: #### 2 777-1, 3084-1, 30765-6, ####[facility] LABCLIA [id number] [place] [address] [place] AST [Catalytic activity/Vol] 15 U/L Normal 13-35 [facility] Comment on above: Order Comment: Speci men Type: BLOOD SPECIMENOrdering Facility: [facility] Address: [address] [place], [place] [address] Performed By: #### 2 777-1, 3084-1, 81475-0, ####[facility] LABCLIA [id number] [place] [address] [place] Bilirubin [Mass/Vol] 0.4 mg/dL Normal 0.2-1.3 [facility] Comment on above: Order Comment: Speci men Type: BLOOD SPECIMENOrdering Facility: [facility] Address: [address] [place], [place] [address] Performed By: #### 2 777-1, 3084-1, 15688-2, ####[facility] LABCLIA [id number] [place] [id number] [place] Calcium [Mass/Vol] 8.8 mg/dL Normal 8.5-10.2 [facility] Comment on above: Order Comment: Speci men Type: BLOOD SPECIMENOrdering Facility: [facility] Address: [address] [place], [place] [address] Performed By: #### 2 777-1, 3084-1, 02085-2, 41077-6 ####[facility] LABCLIA [id number] [place] [id number] [place] Chloride [Moles/Vol] 108 mmol/L High 97-105 [facility] Comment on above: Order Comment: Speci men Type: BLOOD SPECIMENOrdering Facility: [facility] Address: [address] [place] [address] Performed By: #### 2 777-1, 3084-1, 27969-3, 31391-4 ####[facility] LABCLIA [id number] [place] [address] [place] CO2 [Moles/Vol] 21 mmol/L Low 22-30 [facility] Comment on above: Order Comment: Speci men Type: BLOOD SPECIMENOrdering Facility: [facility] Address: [address] [place] [address] Performed By: #### 2 777-1, 3084-1, 63899-7, 41174-6 ####[facility] LABCLIA [id number] [place] [address] [place] Creatinine [Mass/Vol] 1.06 mg/dL High 0.58-0.96 [facility] Comment on above: Order Comment: Speci men Type: BLOOD SPECIMENOrdering Facility: [facility] Address: [address] [place], [place] [address] Performed By: #### 2 777-1, 3084-1, 63287-0, 57047-9 ####[facility] LABCLIA [id number] [place] [id number] [place] Creatinine and Glomerular filtration rate.predicted panel (S/P/Bld) 57 mL/min/1.73m??? Low >=60 [facility] Comment on above: Order Comment: Speci men Type: BLOOD SPECIMENOrdering Facility: [facility] Address: [address] [place] [address] Result Comment: Berenice mated Glomerular Filtration Rate [...] GFR. Performed By: #### 2 777-1, 3084-1, 11302-8, ####[facility] LABIA [id number] [address] [address] [place] Glucose [Mass/Vol] 107 mg/dL High 74-99 [facility] Comment on above: Order Comment: Elvia escobar Type: BLOOD SPECIMENOrdering Facility: [facility] Address: [address] Result Comment: The [place] Diabetes Association (ADA) provides guidance for cutoff [...] Standards of Medical Care in Diabetes 2016, [place] Diabetes Association. Diabetes Care. 2016.39(Suppl 1). Performed By: #### 2 777-1, 3084-1, 90461-8, ####[facility] LABIA [id number] [place] [id number] [place] Potassium [Moles/Vol] 3.4 mmol/L Low 3.7-5.1 [facility] Comment on above: Order Comment: Specmaria eugenia men Type: BLOOD SPECIMENOrdering Facility: [facility] Address: [address] [place] [phone] Performed By: #### 2 777-1, 3084-1, 54971-7, 31880-3 ####[facility] LABIA [id number] [place] [id number] [place] Protein [Mass/Vol] 5.6 g/dL Low 6.3-8.0 [facility] Comment on above: Order Comment: Speci men Type: BLOOD SPECIMENOrdering Facility: [facility] Address: [address] [place] [address] Performed By: #### 2 777-1, 3084-1, 47125-2, 99003-1 ####[facility] [id number] [place] [address] [place] Sodium [Moles/Vol] 140 mmol/L Normal 136-144 [facility] Comment on above: Order Comment: Speci men Type: BLOOD SPECIMENOrdering Facility: [facility] Address: [address] [place] [address] Performed By: #### 2 777-1, 3084-1, 65206-5, 68025-0 ####[facility] [id number] [place] [address] [place] Urea nitrogen [Mass/Vol] 16 mg/dL Normal 7-21 [facility] Comment on above: Order Comment: Speci men Type: BLOOD SPECIMENOrdering Facility: [facility] Address: [address] [place], [place] [address] Performed By: #### 2 777-1, 3084-1, 73453-9, 05679-3 ####[facility] [id number] [place] [id number] [place] Magnesium SerPl-mCncon 06-06 Magnesium [Mass/Vol] 2.0 mg/dL Normal 1.7-2.3 [facility] Comment on above: Order Comment: Speci men Type: BLOOD SPECIMENOrdering Facility: [facility] Address: [address] [place] [address] Performed By: #### 2 777-1, 3084-1, 65682-8, ####[facility] LABCLIA [id number] [place] [address] [place] Phosphate SerPl-mCncon 06-06 Phosphate [Mass/Vol] 2.8 mg/dL Normal 2.7-4.8 [facility] Comment on above: Order Comment: Speci men Type: BLOOD SPECIMENOrdering Facility: [facility] Address: [address] [place] [address] Performed By: #### 2 777-1, 3084-1, 13572-8, ####[facility] LABCLIA [id number] [place] [address] [place] TYPE + SCREENon 06-06-2023 ABO O Normal [facility] Comment on above: Order Comment: Speci men Type: BLOOD SPECIMENOrdering Facility: [facility] Address: [address] [place] [address] Performed By: #### T SCR ####[facility] BANKCL[facility] [id number] [place] [address] [place] HISTORICAL AB SCR STATUS Negative Normal [facility] Comment on above: Order Comment: Speci men Type: BLOOD SPECIMENOrdering Facility: [facility] Address: [address] [place] [address] Performed By: #### T SCR ####[facility] BANKCLIA [id number] [place] [address] [place] Rh Nom (Bld) Positive Normal [facility] Comment on above: Order Comment: Speci men Type: BLOOD SPECIMENOrdering Facility: [facility] Address: [address] [place] [address] Performed By: #### T SCR ####[facility] BLO[facility] BANKCLIA [id number] [address] STATES OF [facility] TYPE AND SCREEN EXPIRATION 06/09/2023 23:59 Normal [facility] Comment on above: Order Comment: Speci men Type: BLOOD SPECIMENOrdering Facility: [facility] Address: [address] [place] [address] Performed By: #### T SCR ####[facility] BLOOD BANKCLIA [id number] [place] [address] [place] Urate SerPl-mCncon 3 Urate [Mass/Vol] 2.9 mg/dL Normal 2.5-6.6 [facility] Comment on above: Order Comment: Speci men Type: BLOOD SPECIMENOrdering Facility: [facility] Address: [address] [place] [address] Performed By: #### 2 777-1, 3084-1, 30855-8, 01470-9 ####[facility] LABCLIA [id number] [place] [address] [place] CBC W Auto Differential pane l (Bld)on 06-05-2023 Anisocytosis Ql (Bld) Present Normal [facility] Comment on above: Order Comment: Speci men Type: BLOOD SPECIMENOrdering Facility: [facility] Address: [address] [place] [address] Performed By: #### 5 7021-8 ####[facility] LABCLIA [id number] [address] [place] Basophils (Bld) [#/Vol] 0.00 10*3/uL Normal <0.11 [facility] Comment on above: Order Comment: Speci men Type: BLOOD SPECIMENOrdering Facility: [facility] Address: [address] [place] [address] Performed By: #### 5 7021-8 ####[facility] LABCLIA [id number] [address] Basophils/100 WBC (Bld) 0.0 % Normal [facility] Comment on above: Order Comment: Speci men Type: BLOOD SPECIMENOrdering Facility: [facility] Address: [address] Performed By: #### 5 7021-8 ####[facility] LABCLIA [id number] [place] [address] [place] Dacrocytes LM Ql (Bld) Few Normal [facility] Comment on above: Order Comment: Speci men Type: BLOOD SPECIMENOrdering Facility: [facility] Address: [address] [place], [place] [address] Performed By: #### 5 7021-8 ####[facility] LABCLIA [id number] [address] [place] Differential cell count method Nom (Bld) Manual Normal [facility] Comment on above: Order Comment: Speci men Type: BLOOD SPECIMENOrdering Facility: [facility] Address: [address] [place], [place] [address] Performed By: #### 5 7021-8 ####[facility] LABCLIA [id number] [address] [place] Eosinophils (Bld) [#/Vol] 0.02 10*3/uL Normal <0.46 [facility] Comment on above: Order Comment: Speci men Type: BLOOD SPECIMENOrdering Facility: [facility] Address: [address] Performed By: #### 5 7021-8 ####[facility] LABCLIA [id number] [address] [place] Eosinophils/100 WBC (Bld) 1.7 % Normal [facility] Comment on above: Order Comment: Speci men Type: BLOOD SPECIMENOrdering Facility: [facility] Address: [address] [place], [place] [address] Performed By: #### 5 7021-8 ####[facility] LABCLIA [id number] [place] [address] [place] Erythrocyte distribution width (RBC) [Ratio] 19.0 % High 11.5-15.0 [facility] Comment on above: Order Comment: Speci men Type: BLOOD SPECIMENOrdering Facility: [facility] Address: [address] [place] [address] Performed By: #### 5 7021-8 ####[facility] LABIA [id number] [place] [address] [place] Hematocrit (Bld) [Volume fraction] 21.7 % Low 36.0-46.0 [facility] Comment on above: Order Comment: Speci men Type: BLOOD SPECIMENOrdering Facility: [facility] Address: [address] [place] [address] Performed By: #### 5 7021-8 ####[facility] LABIA [id number] [place] [address] [place] Hemoglobin (Bld) [Mass/Vol] 7.4 g/dL Low 11.5-15.5 [facility] Comment on above: Order Comment: Speci men Type: BLOOD SPECIMENOrdering Facility: [facility] Address: [address] [place] [address] Performed By: #### 5 7021-8 ####[facility] LABIA [id number] [place] [address] [place] Lymphocytes (Bld) [#/Vol] 1.09 10*3/uL Normal 1.00-4.00 [facility] Comment on above: Order Comment: Speci men Type: BLOOD SPECIMENOrdering Facility: [facility] Address: [address] [place] [address] Performed By: #### 5 7021-8 ####[facility] LABIA [id number] [place] [address] [place] Lymphocytes/100 WBC (Bld) 85.2 % Normal [facility] Comment on above: Order Comment: Speci men Type: BLOOD SPECIMENOrdering Facility: [facility] Address: [address] [place], [place] [address] Performed By: #### 5 7021-8 ####[facility] LABIA [id number] [address] STATES [facility] MCH (RBC) [Entitic mass] 32.2 pg Normal 26.0-34.0 [facility] Comment on above: Order Comment: Speci men Type: BLOOD SPECIMENOrdering Facility: [facility] Address: [address] [place], [place] [address] Performed By: #### 5 7021-8 ####[facility] LABIA [id number] [address] [place] MCHC (RBC) [Mass/Vol] 34.1 g/dL Normal 30.5-36.0 [facility] Comment on above: Order Comment: Speci men Type: BLOOD SPECIMENOrdering Facility: [facility] Address: [address] [place], [place] [address] Performed By: #### 5 7021-8 ####[facility] LABIA [id number] [place] [address] [place] MCV (RBC) [Entitic vol] 94.3 fL Normal 80.0-100.0 [facility] Comment on above: Order Comment: Speci men Type: BLOOD SPECIMENOrdering Facility: [facility] Address: [address] [place], [place] [address] Performed By: #### 5 7021-8 ####[facility] LABIA [id number] [place] [address] [place] Monocytes (Bld) [#/Vol] 0.01 10*3/uL Normal <0.87 [facility] Comment on above: Order Comment: Speci men Type: BLOOD SPECIMENOrdering Facility: [facility] Address: [address] Performed By: #### 5 7021-8 ####[facility] LABCLIA [id number] [address] [place] Monocytes/100 WBC (Bld) 0.9 % Normal [facility] Comment on above: Order Comment: Speci men Type: BLOOD SPECIMENOrdering Facility: [facility] Address: [address] Performed By: #### 5 7021-8 ####[facility] LABIA [id number] [place] [address] [place] Neutrophils (Bld) [#/Vol] 0.16 10*3/uL Low 1.45-7.50 [facility] Comment on above: Order Comment: Speci men Type: BLOOD SPECIMENOrdering Facility: [facility] Address: [address] Performed By: #### 5 7021-8 ####[facility] LABIA [id number] [address] [place] Neutrophils/100 WBC (Bld) 12.2 % Normal [facility] Comment on above: Order Comment: Speci men Type: BLOOD SPECIMENOrdering Facility: [facility] Address: [address] Performed By: #### 5 7021-8 ####[facility] LABIA [id number] [place] [address] [place] Nucleated RBC (Bld) [#/Vol] 0.01 10*3/uL High <0.01 [facility] Comment on above: Order Comment: Speci men Type: BLOOD SPECIMENOrdering Facility: [facility] Address: [address] Performed By: #### 5 7021-8 ####[facility] LABCLIA [id number] [address] [place] Nucleated RBC/100 WBC (Bld) [Ratio] 0.9 /100 WBC Normal [facility] Comment on above: Order Comment: Speci men Type: BLOOD SPECIMENOrdering Facility: [facility] Address: [address] [place] [address] Performed By: #### 5 7021-8 ####[facility] LABCLIA [id number] [place] [address] [place] Ovalocytes LM Ql (Bld) Few Normal [facility] Comment on above: Order Comment: Speci men Type: BLOOD SPECIMENOrdering Facility: [facility] Address: [address] [place] [address] Performed By: #### 5 7021-8 ####[facility] [id number] [place] [address] [place] Platelet mean volume (Bld) [Entitic vol] Normal [facility] Comment on above: Order Comment: Speci men Type: BLOOD SPECIMENOrdering Facility: [facility] Address: [address] [place] [address] Result Comment: Unab le to Report. Performed By: #### 5 7021-8 ####[facility] LABIA [id number] [place] [address] [place] Platelets (Bld) [#/Vol] 7 10*3/uL Critically low 150-400 [facility] Comment on above: Order Comment: Speci men Type: BLOOD SPECIMENOrdering Facility: [facility] Address: [address] [place] [address] Result Comment: Plat elet count confirmed by manual review of peripheral blood smear. No clot detected.Results checked and verified. Performed By: #### 5 7021-8 ####[facility] LABIA [id number] [place] [address] [place] Platelets Estimate (Bld) [#/Vol] Adequate Normal [facility] Comment on above: Order Comment: Speci men Type: BLOOD SPECIMENOrdering Facility: [facility] Address: [address] [place] [address] Performed By: #### 5 7021-8 ####[facility] LABCLIA [id number] [address] [place] RBC (Bld) [#/Vol] 2.30 10*6/uL Low 3.90-5.20 [facility] Comment on above: Order Comment: Speci men Type: BLOOD SPECIMENOrdering Facility: [facility] Address: [address] [place] [address] Performed By: #### 5 7021-8 ####[facility] LABIA [id number] [address] STATES OF [facility] RED CELL MORPH Reviewed: see result s of individual morphologies Normal [facility] Comment on above: Order Comment: Speci men Type: BLOOD SPECIMENOrdering Facility: [facility] Address: [address] [place] [address] Performed By: #### 5 7021-8 ####[facility] LABIA [id number] [address] WBC (Bld) [#/Vol] 1.28 10*3/uL Low 3.70-11.00 [facility] Comment on above: Order Comment: Speci men Type: BLOOD SPECIMENOrdering Facility: [facility] Address: [address] [place], [place] [address] Result Comment: No c lot detected. Performed By: #### 5 7021-8 ####[facility] LABIA [id number] [place] [address] [place] Comprehensive metabolic 2000 panelon 06-05-2023 Albumin [Mass/Vol] 3.3 g/dL Low 3.9-4.9 [facility] Comment on above: Order Comment: Speci men Type: BLOOD SPECIMENOrdering Facility: [facility] Address: [address] Performed By: #### 2 4323-8, 72229-3, 2776-, 3084-1 ####[facility] LABCLIA [id number] [place] [address] [place] ALP [Catalytic activity/Vol] 51 U/L Normal 34-123 [facility] Comment on above: Order Comment: Speci men Type: BLOOD SPECIMENOrdering Facility: [facility] Address: [address] [place] [address] Performed By: #### 2 4323-8, 11930-5, 2776-, 3084- ####[facility] LABCLIA [id number] [place] [address] [place] ALT [Catalytic activity/Vol] 19 U/L Normal 7-38 [facility] Comment on above: Order Comment: Speci men Type: BLOOD SPECIMENOrdering Facility: [facility] Address: [address] [place] [address] Performed By: #### 2 4323-8, 45203-4, 2776-, 308- ####[facility] LABCLIA [id number] [place] [address] [place] Anion gap [Moles/Vol] 11 mmol/L Normal 9-18 [facility] Comment on above: Order Comment: Speci men Type: BLOOD SPECIMENOrdering Facility: [facility] Address: [address] [place] [address] Performed By: #### 2 4323-8, 16306-7, 2776-, 308- ####[facility] LABCLIA [id number] [place] [address] [place] AST [Catalytic activity/Vol] 21 U/L Normal 13-35 [facility] Comment on above: Order Comment: Speci men Type: BLOOD SPECIMENOrdering Facility: [facility] Address: [address] Performed By: #### 2 4323-8, 99885-2, 2776-1, 3084-1 ####[facility] LABCLIA [id number] [place] [address] [place] Bilirubin [Mass/Vol] 0.4 mg/dL Normal 0.2-1.3 [facility] Comment on above: Order Comment: Speci men Type: BLOOD SPECIMENOrdering Facility: [facility] Address: [address] [place] [address] Performed By: #### 2 4323-8, 92801-4, 2776-, 3084-1 ####[facility] LABIA [id number] [place] [address] [place] Calcium [Mass/Vol] 8.7 mg/dL Normal 8.5-10.2 [facility] Comment on above: Order Comment: Speci men Type: BLOOD SPECIMENOrdering Facility: [facility] Address: [address] [place] [address] Performed By: #### 2 4323-8, 17444-0, 2776-, 308-1 ####[facility] LABIA [id number] [place] [address] [place] Chloride [Moles/Vol] 108 mmol/L High 97-105 [facility] Comment on above: Order Comment: Speci men Type: BLOOD SPECIMENOrdering Facility: [facility] Address: [address] [place], [place] [address] Performed By: #### 2 4323-8, 55055-8, 2776-, 3084-1 ####[facility] LABCLIA [id number] [place] [address] [place] CO2 [Moles/Vol] 22 mmol/L Normal 22-30 [facility] Comment on above: Order Comment: Speci men Type: BLOOD SPECIMENOrdering Facility: [facility] Address: [address] [place], [place] [address] Performed By: #### 2 4323-8, 73722-8, 2776-, 3083- ####[facility] LABIA [id number] [place] [address] [place] Creatinine [Mass/Vol] 1.06 mg/dL High 0.58-0.96 [facility] Comment on above: Order Comment: Speci men Type: BLOOD SPECIMENOrdering Facility: [facility] Address: [address] [place] [address] Performed By: #### 2 4323-8, 31962-3, 2776-09, 3083- ####[facility] [id number] [place] [address] [place] Creatinine and Glomerular filtration rate.predicted panel (S/P/Bld) 57 mL/min/1.73m??? Low >=60 [facility] Comment on above: Order Comment: Speci men Type: BLOOD SPECIMENOrdering Facility: [facility] Address: [address] [place] [address] Result Comment: Berenice mated Glomerular Filtration Rate [...] actual GFR. Performed By: #### 2 4323-8, 31972-2, 2776-09, 3083- ####[facility] LABIA [id number] [place] [address] [place] Glucose [Mass/Vol] 99 mg/dL Normal 74-99 [facility] Comment on above: Order Comment: Speci men Type: BLOOD SPECIMENOrdering Facility: [facility] Address: [address] [place] [address] Result Comment: The [place] Diabetes Association (ADA) provides guidance for cutoff [...] Standards of Medical Care in Diabetes 2016, [place] Diabetes Association. Diabetes Care. 2016.39(Suppl 1). Performed By: #### 2 4323-8, 84960-7, 2776-, 3083- ####[facility] LABCLIA [id number] [address] [address] [place] Potassium [Moles/Vol] 3.5 mmol/L Low 3.7-5.1 [facility] Comment on above: Order Comment: Elvia men Type: BLOOD SPECIMENOrdering Facility: [facility] Address: [address] [place] [address] Performed By: #### 2 4323-8, 45596-3, 2776-09, 3083-09 ####[facility] LABIA [id number] [place] [address] [place] Protein [Mass/Vol] 5.5 g/dL Low 6.3-8.0 [facility] Comment on above: Order Comment: Elvia escobar Type: BLOOD SPECIMENOrdering Facility: [facility] Address: [address] [place] [phone] Performed By: #### 2 4323-8, 11945-0, 2776-09, 3083- ####[facility] LABCLIA [id number] [address] [address] [place] Sodium [Moles/Vol] 141 mmol/L Normal 136-144 [facility] Comment on above: Order Comment: Rochellei men Type: BLOOD SPECIMENOrdering Facility: [facility] Address: [address] [place], [place] [address] Performed By: #### 2 4323-8, 47497-3, 2776-, 3084-1 ####[facility] LABCLIA [id number] [place] [id number] [place] Urea nitrogen [Mass/Vol] 12 mg/dL Normal 7-21 [facility] Comment on above: Order Comment: Speci men Type: BLOOD SPECIMENOrdering Facility: [facility] Address: [address] [place] [address] Performed By: #### 2 4323-8, 72071-9, 2776-, 3084-1 ####[facility] LABCLIA [id number] [place] [address] [place] Magnesium SerPl-mCncon 06-05 Magnesium [Mass/Vol] 2.0 mg/dL Normal 1.7-2.3 [facility] Comment on above: Order Comment: Speci men Type: BLOOD SPECIMENOrdering Facility: [facility] Address: [address] [place] [address] Performed By: #### 2 4323-8, 01441-4, 27703-03, 308-1 ####[facility] LABCLIA [id number] [place] [address] [place] NURSING PROGon 06-05-2023 NURSING PROG Normal [facility] NUTRITIONon 06-05-2023 NUTRITION Normal [facility] OUTSIDE BONE MARROW SLIDE RE VIEWon 06-05-2023 CASE REPORT Normal [facility] Comment on above: Order Comment: Speci men Type: FORMALIN-FIXED PARAFFIN-EMBEDDED TISSUE SPECIMENOrdering Facility: [facility] Review Address: , , Result Comment: Bone Marrow Pathology Report Case: [id number] Provider: Mike Hughes MD Collected: 06/05/2023 04:00 PMOrdering Location: [facility] Received: 06/05/2023 03:57 PMPathologist: Mihaela Flowers MDSpecimen: SLIDE(S), 26 SLIDES (BM23-11) Performed By: #### L [id number] ####[facility] LABIA [id number] [place] [id number] [place] DIAGNOSIS COMMENT Normal [facility] Comment on above: Order Comment: Speci [...] Dixon from the hematopathology section at the [facility], and he concurs with the above rendered final diagnosis and interpretation. 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)- Increased stainable iron.- Lymphoid aggregates present, favor benign.Peripheral blood smear:- Pancytopenia with macrocytic anemia, absolute neutropenia and few circulating blasts.June 13, 2023 Performed By: #### L [id number] ####[facility] LABCLIA [id number] [address] OF [place] FINAL PERFORMING LAB Normal [facility] Comment on above: Order Comment: Speci men Type: FORMALIN-FIXED PARAFFIN-EMBEDDED TISSUE SPECIMENOrdering Facility: [facility] Review Address: , , Result Comment: Diag nostic interpretation performed at [facility], [address] [place] [address] CLIA# [id number] Director: Boris Wood M.D. Performed By: #### L [id number] ####[facility] LABCLIA [id number] [address] MICROSCOPIC DESCRIPTION Normal [facility] Comment on above: Order Comment: Speci men [...] institution performed on the core biopsy (block [id number]) were reviewed at the [facility]. CD34 is difficult to interpret due to [...] institution performed on the clot section (block [id number]) were reviewed at the [facility]. CD3 highlights moderate numbers scattered positive T [...] section.ANCILLARY TESTS: Ancillary studies were performed at [facility] (see complete scanned reports in [facility] for detailed results). Flow cytometry: ([id number]) Reported to show CD34 positive blasts, comprising 29.8% of total cells that show expression of CD13, CD33, CD34 mod, CD117, HLA-DR, dim CD123, and are negative for cMPO, cCD3, cCD22, cCD79a, Tdt and CD11b. Cytogenetics: ([id number], 05/08/2023) were reported to show an abnormal complex female karyotype.43~45,XX,add(1)(q21),del(3)(q21q25),add(4)(q21),-5,add(7)( q11.2),del(7)(q32),-9,add(9)(q13),nehemiah(11)t(1;11)(q21;q23).-12.-16,+m ar[cp17]. FISH: N/A. Molecular: ([id number]) Molecular NGS studies were reported to show the following clinically significant variants:DNMT3A R635W (VAF 34.4%)RUNX1 F40Wfs*14 (VAF 20.9%)TP53 C238Y (VAF 63.9%) Performed By: #### L [id number] ####[facility] [id number] [place] [address] [place] Phosphate SerPl-mCncon 06-05 Phosphate [Mass/Vol] 2.6 mg/dL Low 2.7-4.8 [facility] Comment on above: Order Comment: Speci men Type: BLOOD SPECIMENOrdering Facility: [facility] Address: [address] [place], [place] [phone] Performed By: #### 2 4323-8, 00207-3, 2777-1, 3084-1 ####[facility] LABIA [id number] [place] [address] [place] Urate SerPl-mCncon 3 Urate [Mass/Vol] 3.0 mg/dL Normal 2.5-6.6 [facility] Comment on above: Order Comment: Speci men Type: BLOOD SPECIMENOrdering Facility: [facility] Address: [address] [place] [address] Performed By: #### 2 4323-8, 45747-2, 2777-1, 3084-1 ####[facility] LABCLIA [id number] [place] [address] [place] CASE MANAGEMon 06-04-2023 CASE MANAGEM Normal [facility] CBC W Auto Differential pane l (Bld)on 06-04-2023 Anisocytosis Ql (Bld) Present Normal [facility] Comment on above: Order Comment: Speci men Type: BLOOD SPECIMENOrdering Facility: [facility] Address: [address] [place] [address] Performed By: #### 5 7021-8 ####[facility] LABCLIA [id number] [place] [address] [place] Basophils (Bld) [#/Vol] 0.00 10*3/uL Normal <0.11 [facility] Comment on above: Order Comment: Speci men Type: BLOOD SPECIMENOrdering Facility: [facility] Address: [address] [place] [address] Performed By: #### 5 7021-8 ####[facility] LABCLIA [id number] [place] [address] [place] Basophils/100 WBC (Bld) 0.0 % Normal [facility] Comment on above: Order Comment: Speci men Type: BLOOD SPECIMENOrdering Facility: [facility] Address: [address] [place] [address] Performed By: #### 5 7021-8 ####[facility] LABCLIA [id number] [address] [place] BLAST% 1.0 % High <=0.0 [facility] Comment on above: Order Comment: Speci men Type: BLOOD SPECIMENOrdering Facility: [facility] Address: [address] Performed By: #### 5 7021-8 ####[facility] LABCLIA [id number] [place] [address] [place] Differential cell count method Nom (Bld) Manual Normal [facility] Comment on above: Order Comment: Speci men Type: BLOOD SPECIMENOrdering Facility: [facility] Address: [address] [place], [place] [address] Performed By: #### 5 7021-8 ####[facility] LABCLIA [id number] [place] [address] [place] Eosinophils (Bld) [#/Vol] 0.01 10*3/uL Normal <0.46 [facility] Comment on above: Order Comment: Speci men Type: BLOOD SPECIMENOrdering Facility: [facility] Address: [address] [place], [place] [address] Performed By: #### 5 7021-8 ####[facility] LABCLIA [id number] [place] [address] [place] Eosinophils/100 WBC (Bld) 1.0 % Normal [facility] Comment on above: Order Comment: Speci men Type: BLOOD SPECIMENOrdering Facility: [facility] Address: [address] [place], [place] [address] Performed By: #### 5 7021-8 ####[facility] LABCLIA [id number] [place] [address] [place] Erythrocyte distribution width (RBC) [Ratio] 19.4 % High 11.5-15.0 [facility] Comment on above: Order Comment: Speci men Type: BLOOD SPECIMENOrdering Facility: [facility] Address: [address] [place], [place] [address] Performed By: #### 5 7021-8 ####[facility] LABCLIA [id number] [place] [address] [place] Hematocrit (Bld) [Volume fraction] 22.8 % Low 36.0-46.0 [facility] Comment on above: Order Comment: Speci men Type: BLOOD SPECIMENOrdering Facility: [facility] Address: [address] [place] [address] Performed By: #### 5 7021-8 ####[facility] LABIA [id number] [place] [address] [place] Hemoglobin (Bld) [Mass/Vol] 7.9 g/dL Low 11.5-15.5 [facility] Comment on above: Order Comment: Speci men Type: BLOOD SPECIMENOrdering Facility: [facility] Address: [address] [place] [address] Performed By: #### 5 7021-8 ####[facility] LABIA [id number] [place] [address] [place] Lymphocytes (Bld) [#/Vol] 1.06 10*3/uL Normal 1.00-4.00 [facility] Comment on above: Order Comment: Speci men Type: BLOOD SPECIMENOrdering Facility: [facility] Address: [address] [place] [address] Performed By: #### 5 7021-8 ####[facility] LABIA [id number] [place] [address] [place] Lymphocytes/100 WBC (Bld) 87.0 % Normal [facility] Comment on above: Order Comment: Speci men Type: BLOOD SPECIMENOrdering Facility: [facility] Address: [address] [place], [place] [address] Performed By: #### 5 7021-8 ####[facility] LABIA [id number] [place] [address] [place] MCH (RBC) [Entitic mass] 32.6 pg Normal 26.0-34.0 [facility] Comment on above: Order Comment: Speci men Type: BLOOD SPECIMENOrdering Facility: [facility] Address: [address] Performed By: #### 5 7021-8 ####[facility] LABCLIA [id number] [place] [address] [place] MCHC (RBC) [Mass/Vol] 34.6 g/dL Normal 30.5-36.0 [facility] Comment on above: Order Comment: Speci men Type: BLOOD SPECIMENOrdering Facility: [facility] Address: [address] [place], [place] [address] Performed By: #### 5 7021-8 ####[facility] LABIA [id number] [place] [address] [place] MCV (RBC) [Entitic vol] 94.2 fL Normal 80.0-100.0 [facility] Comment on above: Order Comment: Speci men Type: BLOOD SPECIMENOrdering Facility: [facility] Address: [address] [place], [place] [address] Performed By: #### 5 7021-8 ####[facility] LABIA [id number] [place] [address] [place] Monocytes (Bld) [#/Vol] 0.00 10*3/uL Normal <0.87 [facility] Comment on above: Order Comment: Speci men Type: BLOOD SPECIMENOrdering Facility: [facility] Address: [address] Performed By: #### 5 7021-8 ####[facility] LABIA [id number] [address] [place] Monocytes/100 WBC (Bld) 0.0 % Normal [facility] Comment on above: Order Comment: Speci men Type: BLOOD SPECIMENOrdering Facility: [facility] Address: [address] [place], [place] [address] Performed By: #### 5 7021-8 ####[facility] LABCLIA [id number] [place] [address] [place] Neutrophils (Bld) [#/Vol] 0.13 10*3/uL Low 1.45-7.50 [facility] Comment on above: Order Comment: Speci men Type: BLOOD SPECIMENOrdering Facility: [facility] Address: [address] [place], [place] [address] Performed By: #### 5 7021-8 ####[facility] LABCLIA [id number] [place] [address] [place] Neutrophils/100 WBC (Bld) 11.0 % Normal [facility] Comment on above: Order Comment: Speci men Type: BLOOD SPECIMENOrdering Facility: [facility] Address: [address] [place], [place] [address] Performed By: #### 5 7021-8 ####[facility] LABCLIA [id number] [place] [address] [place] Nucleated RBC (Bld) [#/Vol] 0.01 10*3/uL High <0.01 [facility] Comment on above: Order Comment: Speci men Type: BLOOD SPECIMENOrdering Facility: [facility] Address: [address] [place], [place] [address] Performed By: #### 5 7021-8 ####[facility] LABCLIA [id number] [place] [address] [place] Nucleated RBC/100 WBC (Bld) [Ratio] 1.0 /100 WBC Normal [facility] Comment on above: Order Comment: Speci men Type: BLOOD SPECIMENOrdering Facility: [facility] Address: [address] [place], [place] [address] Performed By: #### 5 7021-8 ####[facility] LABCLIA [id number] [place] [address] [place] Ovalocytes LM Ql (Bld) Few Normal [facility] Comment on above: Order Comment: Speci men Type: BLOOD SPECIMENOrdering Facility: [facility] Address: [address] [place] [address] Performed By: #### 5 7021-8 ####[facility] LABCLIA [id number] [place] [address] [place] Platelet mean volume (Bld) [Entitic vol] Normal [facility] Comment on above: Order Comment: Speci men Type: BLOOD SPECIMENOrdering Facility: [facility] Address: [address] [place] [address] Result Comment: Unab le to Report. Performed By: #### 5 7021-8 ####[facility] LABCLIA [id number] [place] [address] [place] Platelets (Bld) [#/Vol] 11 10*3/uL Low 150-400 [facility] Comment on above: Order Comment: Speci men Type: BLOOD SPECIMENOrdering Facility: [facility] Address: [address] [place] [address] Result Comment: No c lot detected.Results checked and verified. Performed By: #### 5 7021-8 ####[facility] LABCLIA [id number] [place] [address] [place] Platelets Estimate (Bld) [#/Vol] Decreased Normal [facility] Comment on above: Order Comment: Speci men Type: BLOOD SPECIMENOrdering Facility: [facility] Address: [address] [place] [address] Performed By: #### 5 7021-8 ####[facility] LABCLIA [id number] [place] [address] [place] RBC (Bld) [#/Vol] 2.42 10*6/uL Low 3.90-5.20 [facility] Comment on above: Order Comment: Speci men Type: BLOOD SPECIMENOrdering Facility: [facility] Address: [address] [address] Performed By: #### 5 7021-8 ####[facility] LABCLIA [id number] [place] [address] [place] RBC FRAGMENTS Few Abnormal None Seen [facility] Comment on above: Order Comment: Speci men Type: BLOOD SPECIMENOrdering Facility: [facility] Address: [address] [place] [address] Performed By: #### 5 7021-8 ####[facility] LABIA [id number] [place] [address] [place] RED CELL MORPH Reviewed: see result s of individual morphologies Normal [facility] Comment on above: Order Comment: Speci men Type: BLOOD SPECIMENOrdering Facility: [facility] Address: [address] [place] [address] Performed By: #### 5 7021-8 ####[facility] LABIA [id number] [place] [address] [place] WBC (Bld) [#/Vol] 1.22 10*3/uL Low 3.70-11.00 [facility] Comment on above: Order Comment: Speci men Type: BLOOD SPECIMENOrdering Facility: [facility] Address: [address] [place] [address] Result Comment: No c lot detected. Performed By: #### 5 7021-8 ####[facility] LABIA [id number] [place] [address] [place] Comprehensive metabolic 2000 panelon 06-04-2023 Albumin [Mass/Vol] 3.7 g/dL Low 3.9-4.9 [facility] Comment on above: Order Comment: Speci men Type: BLOOD SPECIMENOrdering Facility: [facility] Address: [address] [place] [address] Performed By: #### 1 9123-9, 2777-1, 30812-02, 98575-6 ####[facility] LABCLIA [id number] [place] [address] [place] ALP [Catalytic activity/Vol] 55 U/L Normal 34-123 [facility] Comment on above: Order Comment: Speci men Type: BLOOD SPECIMENOrdering Facility: [facility] Address: [address] [place] [address] Performed By: #### 1 9123-9, 277-, 3083-09, 23063-4 ####[facility] LABCLIA [id number] [place] [address] [place] ALT [Catalytic activity/Vol] 17 U/L Normal 7-38 [facility] Comment on above: Order Comment: Speci men Type: BLOOD SPECIMENOrdering Facility: [facility] Address: [address] [place] [address] Performed By: #### 1 9123-9, 277-, 3083-09, 94566-2 ####[facility] LABIA [id number] [place] [address] [place] Anion gap [Moles/Vol] 11 mmol/L Normal 9-18 [facility] Comment on above: Order Comment: Speci men Type: BLOOD SPECIMENOrdering Facility: [facility] Address: [address] [place], [place] [address] Performed By: #### 1 9123-9, 277-, 3083-09, 65336-6 ####[facility] LABCLIA [id number] [place] [id number] [place] AST [Catalytic activity/Vol] 14 U/L Normal 13-35 [facility] Comment on above: Order Comment: Speci men Type: BLOOD SPECIMENOrdering Facility: [facility] Address: [address] [place], [place] [address] Performed By: #### 1 9123-9, 277-1, 3083-09, 16402-2 ####[facility] LABCLIA [id number] [place] [address] [place] Bilirubin [Mass/Vol] 0.5 mg/dL Normal 0.2-1.3 [facility] Comment on above: Order Comment: Speci men Type: BLOOD SPECIMENOrdering Facility: [facility] Address: [address] [place] [address] Performed By: #### 1 9123-9, 277-, 3083-09, 02184-9 ####[facility] LABIA [id number] [place] [address] [place] Calcium [Mass/Vol] 9.0 mg/dL Normal 8.5-10.2 [facility] Comment on above: Order Comment: Speci men Type: BLOOD SPECIMENOrdering Facility: [facility] Address: [address] [place] [address] Performed By: #### 1 9123-9, 277-, 3083-09, 98918-6 ####[facility] [id number] [place] [address] [place] Chloride [Moles/Vol] 107 mmol/L High 97-105 [facility] Comment on above: Order Comment: Speci men Type: BLOOD SPECIMENOrdering Facility: [facility] Address: [address] [place], [place] [address] Performed By: #### 1 9123-9, 277-, 3083-09, 20736-7 ####[facility] LABIA [id number] [place] [id number] [place] CO2 [Moles/Vol] 23 mmol/L Normal 22-30 [facility] Comment on above: Order Comment: Speci men Type: BLOOD SPECIMENOrdering Facility: [facility] Address: [address] [place] [address] Performed By: #### 1 9123-9, 277-1, 3083-09, 94536-7 ####[facility] LABIA [id number] [place] [id number] [place] Creatinine [Mass/Vol] 0.99 mg/dL High 0.58-0.96 [facility] Comment on above: Order Comment: Elvia escobar Type: BLOOD SPECIMENOrdering Facility: [facility] Address: [address] [address] Performed By: #### 1 9123-9, 2777-1, 3083-09, ####[facility] LABIA [id number] [place] [address] [place] Creatinine and Glomerular filtration rate.predicted panel (S/P/Bld) 62 mL/min/1.73m??? Normal >=60 [facility] Comment on above: Order Comment: Elvia escobar Type: BLOOD SPECIMENOrdering Facility: [facility] Address: [address] [place] [address] Result Comment: Berenice mated Glomerular Filtration Rate [...] actual GFR. Performed By: #### 1 9123-9, 2777-, 3083-09, ####[facility] LABIA [id number] [place] [id number] [place] Glucose [Mass/Vol] 106 mg/dL High 74-99 [facility] Comment on above: Order Comment: Elvia escobar Type: BLOOD SPECIMENOrdering Facility: [facility] Address: [address] [address] Result Comment: The [place] Diabetes Association (ADA) provides guidance for cutoff [...] Standards of Medical Care in Diabetes 2016, [place] Diabetes Association. Diabetes Care. 2016.39(Suppl 1). Performed By: #### 1 9123-9, 277-, 3083-09, ####[facility] LABIA [id number] [place] [address] [place] Potassium [Moles/Vol] 3.3 mmol/L Low 3.7-5.1 [facility] Comment on above: Order Comment: Speci men Type: BLOOD SPECIMENOrdering Facility: [facility] Address: [address] [place] [address] Performed By: #### 1 9123-9, 27703-03, 3083-09, 12531-4 ####[facility] [id number] [place] [address] [place] Protein [Mass/Vol] 5.7 g/dL Low 6.3-8.0 [facility] Comment on above: Order Comment: Elvia escobar Type: BLOOD SPECIMENOrdering Facility: [facility] Address: [address] [place] [address] Performed By: #### 1 9123-9, 27703-03, 3083-09, 95790-5 ####[facility] [id number] [place] [address] [place] Sodium [Moles/Vol] 141 mmol/L Normal 136-144 [facility] Comment on above: Order Comment: Rochellei men Type: BLOOD SPECIMENOrdering Facility: [facility] Address: [address] [address] Performed By: #### 1 9123-9, 277-1, 308-, 85432-8 ####[facility] LABCLIA [id number] [place] [address] [place] Urea nitrogen [Mass/Vol] 11 mg/dL Normal 7-21 [facility] Comment on above: Order Comment: Speci men Type: BLOOD SPECIMENOrdering Facility: [facility] Address: [address] [address] Performed By: #### 1 9123-9, 2777-1, 308-, 32963-2 ####[facility] LABIA [id number] [place] [address] [place] ECG COMPLETEon 06-04-2023 ECG COMPLETE Normal [facility] Magnesium SerPl-mCncon 06-04 Magnesium [Mass/Vol] 2.0 mg/dL Normal 1.7-2.3 [facility] Comment on above: Order Comment: Speci men Type: BLOOD SPECIMENOrdering Facility: [facility] Address: [address] [place], [place] [address] Performed By: #### 1 9123-9, 2777-1, 308-, 74821-7 ####[facility] LABIA [id number] [place] [address] [place] Phosphate SerPl-mCncon 06-04 Phosphate [Mass/Vol] 2.7 mg/dL Normal 2.7-4.8 [facility] Comment on above: Order Comment: Speci men Type: BLOOD SPECIMENOrdering Facility: [facility] Address: [address] Performed By: #### 1 9123-9, 2777-1, 308-, 75318-6 ####[facility] LABCLIA [id number] [place] [id number] [place] SOCIAL WORKon 06-04-2023 SOCIAL WORK Normal [facility] Urate SerPl-mCncon Urate [Mass/Vol] 3.1 mg/dL Normal 2.5-6.6 [facility] Comment on above: Order Comment: Elvia escobar Type: BLOOD SPECIMENOrdering Facility: [facility] Address: [address] [place] [address] Performed By: #### 1 9123-9, 2777-1, 3084-1, 06885-8 ####[facility] LABCLIA [id number] [address] BLOOD BANK PLACEHOLDER, CHANDLER SFUSION REACTION PATHOLOGY REPORTon 06-03-2023 BLOOD BANK REPORT, TRANSFUSION REACTION PATHOLOGY REPORT See Pathology Report Normal [facility] Comment on above: Order Comment: Elvia escobar Type: BLOOD SPECIMENOrdering Facility: [facility] Address: [address] [place] [address] Performed By: #### T SCR, [id number], [id number] ####[facility]ANKCL[facility] [id number] [address]#### [id number] ####[facility] LABCLIA [id number] [address] BLOOD BANK REPORT, TRANSFUSI ON REACTION PATHOLOGY REPORTon 06-03-2023 PATHOLOGY INTERPRETATION Normal [facility] Comment on above: Order Comment: Elvia escobar Type: BLOOD SPECIMENOrdering Facility: [facility] Address: [address] [place] [address] Result Comment: Date of symptom onset:June 05ertinent medical history:67-year-old female with past medical history of breast cancer status post lumpectomy and adjuvant radiation therapy and recent diagnosis of acute myeloid leukemia. Patient labs demonstrate pancytopenia and need for platelet transfusion.Transfusion Information:Date Component DIN Start time (h) End time (h) Amount transfused (mL)Monday, June 05, 2023 Platelet [id number] 0328 0440 300 mLSymptoms, signs, and onset:Itching [...] Physician. Performed By: #### T SCR, TRXNU, [id number] ####[facility] BANKCLIA [id number] [place] [address] [place]#### [id number] ####[facility] LABCLIA [id number] [place] [address] [place] C diff Tox gens Stl Ql KIAH+p robeon 06-03-2023 C. difficile toxin genes KIAH+probe Ql (Stl) Negative Normal Negative for C. difficile toxin by PCR [facility] Comment on above: Order Comment: Speci men Type: STOOL SPECIMENOrdering Facility: [facility] Address: [address] [place] [address] Performed By: #### 5 4067-4 ####[facility] LABCLIA [id number] [place] [address] [place] CBC W Auto Differential pane l (Bld)on 06-03-2023 Anisocytosis Ql (Bld) Present Normal [facility] Comment on above: Order Comment: Speci men Type: BLOOD SPECIMENOrdering Facility: [facility] Address: [address] [place] [address] Performed By: #### 5 7021-8 ####[facility] LABCLIA [id number] [place] [address] [place] Basophils (Bld) [#/Vol] 0.00 10*3/uL Normal <0.11 [facility] Comment on above: Order Comment: Speci men Type: BLOOD SPECIMENOrdering Facility: [facility] Address: [address] [address] Performed By: #### 5 7021-8 ####[facility] LABCLIA [id number] [address] [place] Basophils/100 WBC (Bld) 0.0 % Normal [facility] Comment on above: Order Comment: Speci men Type: BLOOD SPECIMENOrdering Facility: [facility] Address: [address] [place], [place] [address] Performed By: #### 5 7021-8 ####[facility] LABCLIA [id number] [place] [address] [place] BLAST% 3.0 % High <=0.0 [facility] Comment on above: Order Comment: Speci men Type: BLOOD SPECIMENOrdering Facility: [facility] Address: [address] [place] [address] Performed By: #### 5 7021-8 ####[facility] LABCLIA [id number] [place] [address] [place] Differential cell count method Nom (Bld) Manual Normal [facility] Comment on above: Order Comment: Speci men Type: BLOOD SPECIMENOrdering Facility: [facility] Address: [address] Performed By: #### 5 7021-8 ####[facility] LABCLIA [id number] [place] [address] [place] Eosinophils (Bld) [#/Vol] 0.02 10*3/uL Normal <0.46 [facility] Comment on above: Order Comment: Speci men Type: BLOOD SPECIMENOrdering Facility: [facility] Address: [address] Performed By: #### 5 7021-8 ####[facility] LABCLIA [id number] [place] [address] [place] Eosinophils/100 WBC (Bld) 2.0 % Normal [facility] Comment on above: Order Comment: Speci men Type: BLOOD SPECIMENOrdering Facility: [facility] Address: [address] Performed By: #### 5 7021-8 ####[facility] LABIA [id number] [place] [address] [place] Erythrocyte distribution width (RBC) [Ratio] 19.9 % High 11.5-15.0 [facility] Comment on above: Order Comment: Speci men Type: BLOOD SPECIMENOrdering Facility: [facility] Address: [address] [place], [place] [address] Performed By: #### 5 7021-8 ####[facility] LABIA [id number] [place] [address] [place] Hematocrit (Bld) [Volume fraction] 19.0 % Low 36.0-46.0 [facility] Comment on above: Order Comment: Speci men Type: BLOOD SPECIMENOrdering Facility: [facility] Address: [address] Performed By: #### 5 7021-8 ####[facility] LABIA [id number] [place] [address] [place] Hemoglobin (Bld) [Mass/Vol] 6.5 g/dL Low 11.5-15.5 [facility] Comment on above: Order Comment: Speci men Type: BLOOD SPECIMENOrdering Facility: [facility] Address: [address] [place], [place] [address] Performed By: #### 5 7021-8 ####[facility] LABCLIA [id number] [place] [address] [place] Lymphocytes (Bld) [#/Vol] 0.90 10*3/uL Low 1.00-4.00 [facility] Comment on above: Order Comment: Speci men Type: BLOOD SPECIMENOrdering Facility: [facility] Address: [address] Performed By: #### 5 7021-8 ####[facility] LABIA [id number] [address] [place] Lymphocytes/100 WBC (Bld) 76.0 % Normal [facility] Comment on above: Order Comment: Speci men Type: BLOOD SPECIMENOrdering Facility: [facility] Address: [address] [place], [place] [address] Performed By: #### 5 7021-8 ####[facility] LABIA [id number] [place] [address] [place] MCH (RBC) [Entitic mass] 33.2 pg Normal 26.0-34.0 [facility] Comment on above: Order Comment: Speci men Type: BLOOD SPECIMENOrdering Facility: [facility] Address: [address] [place] [address] Performed By: #### 5 7021-8 ####[facility] LABCLIA [id number] [place] [address] [place] MCHC (RBC) [Mass/Vol] 34.2 g/dL Normal 30.5-36.0 [facility] Comment on above: Order Comment: Speci men Type: BLOOD SPECIMENOrdering Facility: [facility] Address: [address] [address] Performed By: #### 5 7021-8 ####[facility] LABIA [id number] [place] [id number] [place] MCV (RBC) [Entitic vol] 96.9 fL Normal 80.0-100.0 [facility] Comment on above: Order Comment: Speci men Type: BLOOD SPECIMENOrdering Facility: [facility] Address: [address] [place] [address] Performed By: #### 5 7021-8 ####[facility] LABCLIA [id number] [place] [address] [place] Monocytes (Bld) [#/Vol] 0.02 10*3/uL Normal <0.87 [facility] Comment on above: Order Comment: Speci men Type: BLOOD SPECIMENOrdering Facility: [facility] Address: [address] [place] [address] Performed By: #### 5 7021-8 ####[facility] LABCLIA [id number] [address] [place] Monocytes/100 WBC (Bld) 2.0 % Normal [facility] Comment on above: Order Comment: Speci men Type: BLOOD SPECIMENOrdering Facility: [facility] Address: [address] [place], [place] [address] Performed By: #### 5 7021-8 ####[facility] LABCLIA [id number] [place] [address] [place] Neutrophils (Bld) [#/Vol] 0.20 10*3/uL Low 1.45-7.50 [facility] Comment on above: Order Comment: Speci men Type: BLOOD SPECIMENOrdering Facility: [facility] Address: [address] [place], [place] [address] Performed By: #### 5 7021-8 ####[facility] LABCLIA [id number] [place] [address] [place] Neutrophils/100 WBC (Bld) 17.0 % Normal [facility] Comment on above: Order Comment: Speci men Type: BLOOD SPECIMENOrdering Facility: [facility] Address: [address] Performed By: #### 5 7021-8 ####[facility] LABCLIA [id number] [address] Nucleated RBC (Bld) [#/Vol] 10*3/uL Normal <0.01 [facility] Comment on above: Order Comment: Speci men Type: BLOOD SPECIMENOrdering Facility: [facility] Address: [address] [place], [place] [address] Performed By: #### 5 7021-8 ####[facility] LABIA [id number] [place] [address] [place] Nucleated RBC/100 WBC (Bld) [Ratio] 0.0 /100 WBC Normal [facility] Comment on above: Order Comment: Speci men Type: BLOOD SPECIMENOrdering Facility: [facility] Address: [address] [place], [place] [address] Performed By: #### 5 7021-8 ####[facility] LABCLIA [id number] [place] [address] [place] Ovalocytes LM Ql (Bld) Few Normal [facility] Comment on above: Order Comment: Speci men Type: BLOOD SPECIMENOrdering Facility: [facility] Address: [address] [place], [place] [address] Performed By: #### 5 7021-8 ####[facility] LABCLIA [id number] [address] [place] Platelet mean volume (Bld) [Entitic vol] Normal [facility] Comment on above: Order Comment: Speci men Type: BLOOD SPECIMENOrdering Facility: [facility] Address: [address] [place], [place] [address] Result Comment: Unab le to Report. Performed By: #### 5 7021-8 ####[facility] LABCLIA [id number] [place] [address] [place] Platelets (Bld) [#/Vol] 14 10*3/uL Low 150-400 [facility] Comment on above: Order Comment: Speci men Type: BLOOD SPECIMENOrdering Facility: [facility] Address: [address] [place] [address] Result Comment: Resu lts checked and verified.No clot detected. Performed By: #### 5 7021-8 ####[facility] LABCLIA [id number] [place] [address] [place] Platelets Estimate (Bld) [#/Vol] Decreased Normal [facility] Comment on above: Order Comment: Speci men Type: BLOOD SPECIMENOrdering Facility: [facility] Address: [address] [place] [address] Performed By: #### 5 7021-8 ####[facility] LABIA [id number] [place] [address] [place] RBC (Bld) [#/Vol] 1.96 10*6/uL Low 3.90-5.20 [facility] Comment on above: Order Comment: Speci men Type: BLOOD SPECIMENOrdering Facility: [facility] Address: [address] [place] [address] Performed By: #### 5 7021-8 ####[facility] LABCLIA [id number] [place] [address] [place] RBC FRAGMENTS Few Abnormal None Seen [facility] Comment on above: Order Comment: Speci men Type: BLOOD SPECIMENOrdering Facility: [facility] Address: [address] [place] [address] Performed By: #### 5 7021-8 ####[facility] LABIA [id number] [place] [address] [place] RED CELL MORPH Reviewed: see result s of individual morphologies Normal [facility] Comment on above: Order Comment: Speci men Type: BLOOD SPECIMENOrdering Facility: [facility] Address: [address] [place] [address] Performed By: #### 5 7021-8 ####[facility] LABIA [id number] [place] [address] [facility] [place] WBC (Bld) [#/Vol] 1.18 10*3/uL Low 3.70-11.00 [facility] Comment on above: Order Comment: Speci men Type: BLOOD SPECIMENOrdering Facility: [facility] Address: [address] [place] [address] Result Comment: No c lot detected. Performed By: #### 5 7021-8 ####[facility] LABIA [id number] [address] OF [facility] Comprehensive metabolic 2000 panelon 06-03-2023 Albumin [Mass/Vol] 3.3 g/dL Low 3.9-4.9 [facility] Comment on above: Order Comment: Speci men Type: BLOOD SPECIMENOrdering Facility: [facility] Address: [address] [place] [address] Performed By: #### 2 777-1, 3084-1, 47959-9, 13843-5 ####[facility] LABIA [id number] [address] [place] ALP [Catalytic activity/Vol] 50 U/L Normal 34-123 [facility] Comment on above: Order Comment: Speci men Type: BLOOD SPECIMENOrdering Facility: [facility] Address: [address] [place] [address] Performed By: #### 2 777-1, 3084-1, 89231-3, 63988-0 ####[facility] LABIA [id number] [address] [place] ALT [Catalytic activity/Vol] 12 U/L Normal 7-38 [facility] Comment on above: Order Comment: Speci men Type: BLOOD SPECIMENOrdering Facility: [facility] Address: [address] [place], [place] [address] Performed By: #### 2 777-1, 3084-1, 25096-8, ####[facility] LABCLIA [id number] [place] [address] [place] Anion gap [Moles/Vol] 12 mmol/L Normal 9-18 [facility] Comment on above: Order Comment: Speci men Type: BLOOD SPECIMENOrdering Facility: [facility] Address: [address] [place], [place] [address] Performed By: #### 2 777-1, 3084-1, 13542-3, ####[facility] LABCLIA [id number] [place] [address] [place] AST [Catalytic activity/Vol] 12 U/L Low 13-35 [facility] Comment on above: Order Comment: Speci men Type: BLOOD SPECIMENOrdering Facility: [facility] Address: [address] [place], [place] [address] Performed By: #### 2 777-1, 3084-1, 22581-0, ####[facility] LABCLIA [id number] [address] [address] [place] Bilirubin [Mass/Vol] 0.4 mg/dL Normal 0.2-1.3 [facility] Comment on above: Order Comment: Speci men Type: BLOOD SPECIMENOrdering Facility: [facility] Address: [address] [place], [place] [address] Performed By: #### 2 777-1, 3084-1, 42177-8, ####[facility] LABCLIA [id number] [address] [address] [place] Calcium [Mass/Vol] 9.0 mg/dL Normal 8.5-10.2 [facility] Comment on above: Order Comment: Speci men Type: BLOOD SPECIMENOrdering Facility: [facility] Address: [address] [place], [place] [address] Performed By: #### 2 777-1, 3084-1, 04236-5, ####[facility] LABCLIA [id number] [place] [address] [place] Chloride [Moles/Vol] 108 mmol/L High 97-105 [facility] Comment on above: Order Comment: Speci men Type: BLOOD SPECIMENOrdering Facility: [facility] Address: [address] [place] [address] Performed By: #### 2 777-1, 3084-1, 55942-0, ####[facility] LABCLIA [id number] [place] [address] [place] CO2 [Moles/Vol] 21 mmol/L Low 22-30 [facility] Comment on above: Order Comment: Speci men Type: BLOOD SPECIMENOrdering Facility: [facility] Address: [address] [place] [address] Performed By: #### 2 777-1, 3084-1, 96124-2, ####[facility] LABCLIA [id number] [place] [address] [place] Creatinine [Mass/Vol] 0.93 mg/dL Normal 0.58-0.96 [facility] Comment on above: Order Comment: Speci men Type: BLOOD SPECIMENOrdering Facility: [facility] Address: [address] [place] [address] Performed By: #### 2 777-1, 3084-1, 11417-5, ####[facility] LABCLIA [id number] [place] [address] [place] Creatinine and Glomerular filtration rate.predicted panel (S/P/Bld) 67 mL/min/1.73m??? Normal >=60 [facility] Comment on above: Order Comment: Elvia escobar Type: BLOOD SPECIMENOrdering Facility: [facility] Address: [address] [place], [place] [address] Result Comment: Berenice mated Glomerular Filtration Rate [...] GFR. Performed By: #### 2 777-1, 3084-1, 35942-4, 66492-6 ####[facility] LABIA [id number] [place] [address] [place] Glucose [Mass/Vol] 111 mg/dL High 74-99 [facility] Comment on above: Order Comment: Elvia escobar Type: BLOOD SPECIMENOrdering Facility: [facility] Address: [address] [place] [address] Result Comment: The [place] Diabetes Association (ADA) provides guidance for cutoff [...] Standards of Medical Care in Diabetes 2016, [place] Diabetes Association. Diabetes Care. 2016.39(Suppl 1). Performed By: #### 2 777-1, 3084-1, 44752-5, ####[facility] LABCLIA [id number] [address] [address] [place] Potassium [Moles/Vol] 3.3 mmol/L Low 3.7-5.1 [facility] Comment on above: Order Comment: Speci men Type: BLOOD SPECIMENOrdering Facility: [facility] Address: [address] [place], [place] [phone] Performed By: #### 2 777-1, 3084-1, 18384-2, ####[facility] LABCLIA [id number] [place] [address] [place] Protein [Mass/Vol] 5.3 g/dL Low 6.3-8.0 [facility] Comment on above: Order Comment: Speci men Type: BLOOD SPECIMENOrdering Facility: [facility] Address: [address] [place] [address] Performed By: #### 2 777-1, 3084-1, 96409-4, ####[facility] [id number] [place] [address] [place] Sodium [Moles/Vol] 141 mmol/L Normal 136-144 [facility] Comment on above: Order Comment: Speci men Type: BLOOD SPECIMENOrdering Facility: [facility] Address: [address] [place] [address] Performed By: #### 2 777-1, 3084-1, 03576-1, ####[facility] [id number] [place] [address] [place] Urea nitrogen [Mass/Vol] 9 mg/dL Normal 7-21 [facility] Comment on above: Order Comment: Speci men Type: BLOOD SPECIMENOrdering Facility: [facility] Address: [address] [place], [place] [address] Performed By: #### 2 777-1, 3084-1, 19674-8, 90789-0 ####[facility] LABIA [id number] [place] [id number] [place] Magnesium SerPl-mCncon 06-03 Magnesium [Mass/Vol] 1.9 mg/dL Normal 1.7-2.3 [facility] Comment on above: Order Comment: Speci men Type: BLOOD SPECIMENOrdering Facility: [facility] Address: [address] [place] [address] Performed By: #### 2 777-1, 3084-1, 21412-0, 97401-1 ####[facility] LABCLIA [id number] [address] [place] Phosphate SerPl-mCncon 06-03 Phosphate [Mass/Vol] 3.0 mg/dL Normal 2.7-4.8 [facility] Comment on above: Order Comment: Speci men Type: BLOOD SPECIMENOrdering Facility: [facility] Address: [address] [place] [address] Performed By: #### 2 777-1, 3084-1, 28155-8, 25729-1 ####[facility] LABCLIA [id number] [address] OF [facility] TYPE + SCREENon 06-03-2023 ABO O Normal [facility] Comment on above: Order Comment: Speci men Type: BLOOD SPECIMENOrdering Facility: [facility] Address: [address] [place] [address] Performed By: #### T SCR, TRXNU, [id number] ####[facility]ANKCL[facility] [id number] [address] [place]#### [id number] ####[facility] LABCLIA [id number] [place] [address] [place] HISTORICAL AB SCR STATUS Negative Normal [facility] Comment on above: Order Comment: Speci men Type: BLOOD SPECIMENOrdering Facility: [facility] Address: [address] [place] [address] Performed By: #### T SCR, TRXNU, [id number] ####[facility]CL[facility] [id number] [address] [place]#### [id number] ####[facility] LABCLIA [id number] [place] [address] [place] Rh Nom (Bld) Positive Normal [facility] Comment on above: Order Comment: Speci men Type: BLOOD SPECIMENOrdering Facility: [facility] Address: [address] [place] [address] Performed By: #### T SCR, TRXNU, [id number] ####[facility]ANKCL[facility] [id number] [place] [address] [place]#### [id number] ####[facility] LABCLIA [id number] [place] [address] [place] TYPE AND SCREEN EXPIRATION 06/06/2023 23:59 Normal [facility] Comment on above: Order Comment: Speci men Type: BLOOD SPECIMENOrdering Facility: [facility] Address: [address] [place] [address] Performed By: #### T SCR, TRXNU, [id number] ####[facility] [id number] [place] [address] [place]#### [id number] ####[facility] LABCLIA [id number] [place] [address] [place] URTICARIAL REACTIONon 2022 OK TO TRANSFUSE Yes Normal [facility] Comment on above: Order Comment: Speci men Type: BLOOD SPECIMENOrdering Facility: [facility] Address: [address] [place] [phone] Performed By: #### T SCR, TRXNU, [id number] ####[facility]CL[facility] [id number] [place] [address] [place]#### [id number] ####[facility] LABCLIA [id number] [address] OF [place] Urate SerPl-mCncon 3 Urate [Mass/Vol] 3.4 mg/dL Normal 2.5-6.6 [facility] Comment on above: Order Comment: Speci men Type: BLOOD SPECIMENOrdering Facility: [facility] Address: [address] [place] [address] Performed By: #### 2 777-1, 3084-1, 91671-3, 20200-2 ####[facility] LABCLIA [id number] [place] [address] [place] BMT REC INIT W/Uon 3 ALLOGEN RESULTS TO FOLLOW See Allogen report to follow Normal [facility] Comment on above: Order Comment: Speci men Type: BLOOD SPECIMENOrdering Facility: [facility] Address: [address] [place] [address] Performed By: #### B MTRIW ####[facility]IES[facility]IA [id number] [address] [place] CBC W Auto Differential pane l (Bld)on 06-02-2023 Anisocytosis Ql (Bld) Present Normal [facility] Comment on above: Order Comment: Speci men Type: BLOOD SPECIMENOrdering Facility: [facility] Address: [address] [place] [address] Performed By: #### 5 7021-8 ####[facility] LABCLIA [id number] [address] STATES OF [facility] Basophils (Bld) [#/Vol] 0.00 10*3/uL Normal <0.11 [facility] Comment on above: Order Comment: Speci men Type: BLOOD SPECIMENOrdering Facility: [facility] Address: [address] [place], [place] [address] Performed By: #### 5 7021-8 ####[facility] LABCLIA [id number] [place] [address] [place] Basophils/100 WBC (Bld) 0.0 % Normal [facility] Comment on above: Order Comment: Speci men Type: BLOOD SPECIMENOrdering Facility: [facility] Address: [address] [place] [address] Performed By: #### 5 7021-8 ####[facility] LABCLIA [id number] [place] [address] [place] BLAST% 2.0 % High <=0.0 [facility] Comment on above: Order Comment: Speci men Type: BLOOD SPECIMENOrdering Facility: [facility] Address: [address] [place] [address] Performed By: #### 5 7021-8 ####[facility] LABCLIA [id number] [place] [address] [place] Differential cell count method Nom (Bld) Manual Normal [facility] Comment on above: Order Comment: Speci men Type: BLOOD SPECIMENOrdering Facility: [facility] Address: [address] [place], [place] [address] Performed By: #### 5 7021-8 ####[facility] LABCLIA [id number] [place] [address] [place] Eosinophils (Bld) [#/Vol] 0.02 10*3/uL Normal <0.46 [facility] Comment on above: Order Comment: Speci men Type: BLOOD SPECIMENOrdering Facility: [facility] Address: [address] Performed By: #### 5 7021-8 ####[facility] LABCLIA [id number] [place] [address] [place] Eosinophils/100 WBC (Bld) 1.0 % Normal [facility] Comment on above: Order Comment: Speci men Type: BLOOD SPECIMENOrdering Facility: [facility] Address: [address] [place], [place] [address] Performed By: #### 5 7021-8 ####[facility] LABIA [id number] [place] [address] [place] Erythrocyte distribution width (RBC) [Ratio] 20.5 % High 11.5-15.0 [facility] Comment on above: Order Comment: Speci men Type: BLOOD SPECIMENOrdering Facility: [facility] Address: [address] [place], [place] [address] Performed By: #### 5 7021-8 ####[facility] LABIA [id number] [place] [address] [place] Hematocrit (Bld) [Volume fraction] 20.6 % Low 36.0-46.0 [facility] Comment on above: Order Comment: Speci men Type: BLOOD SPECIMENOrdering Facility: [facility] Address: [address] [place], [place] [address] Performed By: #### 5 7021-8 ####[facility] LABIA [id number] [place] [address] [place] Hemoglobin (Bld) [Mass/Vol] 7.0 g/dL Low 11.5-15.5 [facility] Comment on above: Order Comment: Speci men Type: BLOOD SPECIMENOrdering Facility: [facility] Address: [address] [place], [place] [address] Performed By: #### 5 7021-8 ####[facility] LABIA [id number] [place] [address] [place] Lymphocytes (Bld) [#/Vol] 1.46 10*3/uL Normal 1.00-4.00 [facility] Comment on above: Order Comment: Speci men Type: BLOOD SPECIMENOrdering Facility: [facility] Address: [address] [place] [address] Performed By: #### 5 7021-8 ####[facility] LABIA [id number] [place] [address] [place] Lymphocytes/100 WBC (Bld) 87.0 % Normal [facility] Comment on above: Order Comment: Speci men Type: BLOOD SPECIMENOrdering Facility: [facility] Address: [address] [place], [place] [address] Performed By: #### 5 7021-8 ####[facility] LABCLIA [id number] [address] STATES [facility] MCH (RBC) [Entitic mass] 33.0 pg Normal 26.0-34.0 [facility] Comment on above: Order Comment: Speci men Type: BLOOD SPECIMENOrdering Facility: [facility] Address: [address] [place], [place] [address] Performed By: #### 5 7021-8 ####[facility] LABCLIA [id number] [address] [place] MCHC (RBC) [Mass/Vol] 34.0 g/dL Normal 30.5-36.0 [facility] Comment on above: Order Comment: Speci men Type: BLOOD SPECIMENOrdering Facility: [facility] Address: [address] [place], [place] [address] Performed By: #### 5 7021-8 ####[facility] LABCLIA [id number] [address] [place] MCV (RBC) [Entitic vol] 97.2 fL Normal 80.0-100.0 [facility] Comment on above: Order Comment: Speci men Type: BLOOD SPECIMENOrdering Facility: [facility] Address: [address] [place], [place] [address] Performed By: #### 5 7021-8 ####[facility] LABCLIA [id number] [place] [address] [place] Monocytes (Bld) [#/Vol] 0.00 10*3/uL Normal <0.87 [facility] Comment on above: Order Comment: Speci men Type: BLOOD SPECIMENOrdering Facility: [facility] Address: [address] Performed By: #### 5 7021-8 ####[facility] LABCLIA [id number] [address] STATES OF [facility] Monocytes/100 WBC (Bld) 0.0 % Normal [facility] Comment on above: Order Comment: Speci men Type: BLOOD SPECIMENOrdering Facility: [facility] Address: [address] Performed By: #### 5 7021-8 ####[facility] LABCLIA [id number] [place] [address] [place] Neutrophils (Bld) [#/Vol] 0.17 10*3/uL Low 1.45-7.50 [facility] Comment on above: Order Comment: Speci men Type: BLOOD SPECIMENOrdering Facility: [facility] Address: [address] [place], [place] [address] Performed By: #### 5 7021-8 ####[facility] LABCLIA [id number] [address] [place] Neutrophils/100 WBC (Bld) 10.0 % Normal [facility] Comment on above: Order Comment: Speci men Type: BLOOD SPECIMENOrdering Facility: [facility] Address: [address] [place], [place] [address] Performed By: #### 5 7021-8 ####[facility] LABCLIA [id number] [place] [address] [place] Nucleated RBC (Bld) [#/Vol] 10*3/uL Normal <0.01 [facility] Comment on above: Order Comment: Speci men Type: BLOOD SPECIMENOrdering Facility: [facility] Address: [address] [place], [place] [address] Performed By: #### 5 7021-8 ####[facility] LABCLIA [id number] [address] [place] Nucleated RBC/100 WBC (Bld) [Ratio] 0.0 /100 WBC Normal [facility] Comment on above: Order Comment: Speci men Type: BLOOD SPECIMENOrdering Facility: [facility] Address: [address] [place] [address] Performed By: #### 5 7021-8 ####[facility] LABCLIA [id number] [place] [address] [place] Ovalocytes LM Ql (Bld) Few Normal [facility] Comment on above: Order Comment: Speci men Type: BLOOD SPECIMENOrdering Facility: [facility] Address: [address] [place] [address] Performed By: #### 5 7021-8 ####[facility] LABCLIA [id number] [place] [address] [place] Platelet mean volume (Bld) [Entitic vol] Normal [facility] Comment on above: Order Comment: Speci men Type: BLOOD SPECIMENOrdering Facility: [facility] Address: [address] [place] [address] Result Comment: Unab le to Report. Performed By: #### 5 7021-8 ####[facility] LABCLIA [id number] [place] [address] [place] Platelets (Bld) [#/Vol] 26 10*3/uL Low 150-400 [facility] Comment on above: Order Comment: Speci men Type: BLOOD SPECIMENOrdering Facility: [facility] Address: [address] [place] [address] Result Comment: Resu lts checked and verified.No clot detected. Performed By: #### 5 7021-8 ####[facility] LABCLIA [id number] [place] [address] [place] Platelets Estimate (Bld) [#/Vol] Decreased Normal [facility] Comment on above: Order Comment: Speci men Type: BLOOD SPECIMENOrdering Facility: [facility] Address: [address] [place] [address] Performed By: #### 5 7021-8 ####[facility] LABCLIA [id number] [place] [address] [place] Polychromasia LM Ql (Bld) Slight Normal [facility] Comment on above: Order Comment: Speci men Type: BLOOD SPECIMENOrdering Facility: [facility] Address: [address] Performed By: #### 5 7021-8 ####[facility] LABIA [id number] [place] [address] [place] RBC (Bld) [#/Vol] 2.12 10*6/uL Low 3.90-5.20 [facility] Comment on above: Order Comment: Speci men Type: BLOOD SPECIMENOrdering Facility: [facility] Address: [address] [place] [address] Performed By: #### 5 7021-8 ####[facility] LABIA [id number] [place] [address] [place] RBC FRAGMENTS Few Abnormal None Seen [facility] Comment on above: Order Comment: Speci men Type: BLOOD SPECIMENOrdering Facility: [facility] Address: [address] [place] [address] Performed By: #### 5 7021-8 ####[facility] LABCLIA [id number] [place] [address] [place] RED CELL MORPH Reviewed: see result s of individual morphologies Normal [facility] Comment on above: Order Comment: Speci men Type: BLOOD SPECIMENOrdering Facility: [facility] Address: [address] [place] [address] Performed By: #### 5 7021-8 ####[facility] LABCLIA [id number] [place] [address] [place] WBC (Bld) [#/Vol] 1.68 10*3/uL Low 3.70-11.00 [facility] Comment on above: Order Comment: Speci men Type: BLOOD SPECIMENOrdering Facility: [facility] Address: [address] [place] [address] Result Comment: No c lot detected. Performed By: #### 5 7021-8 ####[facility] LABCLIA [id number] [place] [address] [place] CMV IgG Qnon 06-02-2023 CMV IGG QUAL Negative Normal Negative [facility] Comment on above: Order Comment: Speci men Type: BLOOD SPECIMENOrdering Facility: [facility] Address: [address] [place] [address] Result Comment: No s erological evidence of past exposure to Cytomegalovirus. Cannot exclude recent infection if the specimen collected within 4-6 weeks after infection. Performed By: #### 7 852-7 ####[facility] LABCLIA [id number] [place] [address] [place] CMV IgG SerPl-aCncon 023 CMV IgG Qn <0.20 Normal [facility] Comment on above: Order Comment: Speci men Type: BLOOD SPECIMENOrdering Facility: [facility] Address: [address] [place] [address] Result Comment: The magnitude of the measured result is not indicative of the amount of antibody present.U/mL values are interpreted as follows:Negative <0.6Equivocal 0.6 to <0.70Positive >=0.70 Performed By: #### 7 852-7 ####[facility] LABCLIA [id number] [place] [address] [place] Comprehensive metabolic 2000 panelon 06-02-2023 Albumin [Mass/Vol] 3.4 g/dL Low 3.9-4.9 [facility] Comment on above: Order Comment: Speci men Type: BLOOD SPECIMENOrdering Facility: [facility] Address: [address] [place] [address] Performed By: #### 2 4323-8, 36014-5, 2776-09, 308-1 ####[facility] LABCLIA [id number] [place] [address] [place] ALP [Catalytic activity/Vol] 58 U/L Normal 34-123 [facility] Comment on above: Order Comment: Speci men Type: BLOOD SPECIMENOrdering Facility: [facility] Address: [address] [place] [address] Performed By: #### 2 4323-8, 91613-7, 2776-, 308- ####[facility] LABCLIA [id number] [place] [address] [place] ALT [Catalytic activity/Vol] 15 U/L Normal 7-38 [facility] Comment on above: Order Comment: Speci men Type: BLOOD SPECIMENOrdering Facility: [facility] Address: [address] [place] [address] Performed By: #### 2 4323-8, 86324-9, 2776-09, 308- ####[facility] LABIA [id number] [place] [address] [place] Anion gap [Moles/Vol] 11 mmol/L Normal 9-18 [facility] Comment on above: Order Comment: Speci men Type: BLOOD SPECIMENOrdering Facility: [facility] Address: [address] [place] [address] Performed By: #### 2 4323-8, 12157-9, 2776-09, 308- ####[facility] LABIA [id number] [place] [address] [place] AST [Catalytic activity/Vol] 15 U/L Normal 13-35 [facility] Comment on above: Order Comment: Speci men Type: BLOOD SPECIMENOrdering Facility: [facility] Address: [address] [place], [place] [address] Performed By: #### 2 4323-8, 22029-7, 2776-, 308-1 ####[facility] LABIA [id number] [place] [address] [place] Bilirubin [Mass/Vol] 0.3 mg/dL Normal 0.2-1.3 [facility] Comment on above: Order Comment: Speci men Type: BLOOD SPECIMENOrdering Facility: [facility] Address: [address] [place], [place] [address] Performed By: #### 2 4323-8, 02744-9, 2776-, 3083- ####[facility] LABIA [id number] [place] [address] [place] Calcium [Mass/Vol] 8.2 mg/dL Low 8.5-10.2 [facility] Comment on above: Order Comment: Speci men Type: BLOOD SPECIMENOrdering Facility: [facility] Address: [address] [place] [address] Performed By: #### 2 4323-8, 68924-7, 2776-09, 3083- ####[facility] LABIA [id number] [place] [address] [place] Chloride [Moles/Vol] 107 mmol/L High 97-105 [facility] Comment on above: Order Comment: Speci men Type: BLOOD SPECIMENOrdering Facility: [facility] Address: [address] [place], [place] [address] Performed By: #### 2 4323-8, 62538-6, 2776-09, 308- ####[facility] LABIA [id number] [place] [address] [place] CO2 [Moles/Vol] 22 mmol/L Normal 22-30 [facility] Comment on above: Order Comment: Speci men Type: BLOOD SPECIMENOrdering Facility: [facility] Address: [address] [address] Performed By: #### 2 4323-8, 72681-9, 2776-, 3083- ####[facility] LABIA [id number] [place] [address] [place] Creatinine [Mass/Vol] 0.96 mg/dL Normal 0.58-0.96 [facility] Comment on above: Order Comment: Speci men Type: BLOOD SPECIMENOrdering Facility: [facility] Address: [address] Performed By: #### 2 4323-8, 85477-7, 2776-09, 3083- ####[facility] [id number] [address] [place] Creatinine and Glomerular filtration rate.predicted panel (S/P/Bld) 64 mL/min/1.73m??? Normal >=60 [facility] Comment on above: Order Comment: Speci men Type: BLOOD SPECIMENOrdering Facility: [facility] Address: [address] [address] Result Comment: Berenice mated Glomerular Filtration Rate [...] actual GFR. Performed By: #### 2 4323-8, 24641-8, 2776-09, 3083- ####[facility] LABIA [id number] [place] [address] [place] Glucose [Mass/Vol] 105 mg/dL High 74-99 [facility] Comment on above: Order Comment: Speci men Type: BLOOD SPECIMENOrdering Facility: [facility] Address: [address] [address] Result Comment: The [place] Diabetes Association (ADA) provides guidance for cutoff [...] Standards of Medical Care in Diabetes 2016, [place] Diabetes Association. Diabetes Care. 2016.39(Suppl 1). Performed By: #### 2 4323-8, 79924-9, 2776-09, 3083- ####[facility] LABCLIA [id number] [place] [address] [place] Potassium [Moles/Vol] 3.3 mmol/L Low 3.7-5.1 [facility] Comment on above: Order Comment: Speci men Type: BLOOD SPECIMENOrdering Facility: [facility] Address: [address] [place] [address] Performed By: #### 2 4323-8, 33460-6, 2776-09, 3083-09 ####[facility] LABIA [id number] [place] [address] [place] Protein [Mass/Vol] 5.4 g/dL Low 6.3-8.0 [facility] Comment on above: Order Comment: Speci men Type: BLOOD SPECIMENOrdering Facility: [facility] Address: [address] [place] [address] Performed By: #### 2 4323-8, 41866-8, 2776-09, 3083-09 ####[facility] LABCLIA [id number] [address] [address] [place] Sodium [Moles/Vol] 140 mmol/L Normal 136-144 [facility] Comment on above: Order Comment: Speci men Type: BLOOD SPECIMENOrdering Facility: [facility] Address: [address] [place] [address] Performed By: #### 2 3-8, , 2776-09, 3083- ####[facility] LABCLIA [id number] [place] [address] [place] Urea nitrogen [Mass/Vol] 13 mg/dL Normal 7-21 [facility] Comment on above: Order Comment: Speci men Type: BLOOD SPECIMENOrdering Facility: [facility] Address: [address] [place] [address] Performed By: #### 2 4322-8, , 2776-09, 308- ####[facility] LABCLIA [id number] [place] [address] [place] Magnesium SerPl-mCncon 06-02 Magnesium [Mass/Vol] 2.0 mg/dL Normal 1.7-2.3 [facility] Comment on above: Order Comment: Speci men Type: BLOOD SPECIMENOrdering Facility: [facility] Address: [address] [place] [address] Performed By: #### 2 4322-8, , 2776-09, 308- ####[facility] LABCLIA [id number] [place] [address] [place] Phosphate SerPl-mCncon 06-02 Phosphate [Mass/Vol] 3.8 mg/dL Normal 2.7-4.8 [facility] Comment on above: Order Comment: Speci men Type: BLOOD SPECIMENOrdering Facility: [facility] Address: [address] [place], [place] [address] Performed By: #### 2 4323-8, 91919-6, 2776-09, 308-1 ####[facility] LABCLIA [id number] [place] [address] [place] Urate SerPl-mCncon 3 Urate [Mass/Vol] 3.1 mg/dL Normal 2.5-6.6 [facility] Comment on above: Order Comment: Elvia escobar Type: BLOOD SPECIMENOrdering Facility: [facility] Address: [address] [place] [address] Performed By: #### 2 4323-8, 93771-2, 2777-1, 3084-1 ####[facility] LABCLIA [id number] [place] [address] [place] ACUTE LEUKEMIA NGS PANEL, ZEENAT NE MARROWon 06-01-2023 ACUTE LEUK NGS PANEL, BONE MARROW Normal [facility] Comment on above: Order Comment: Elvia escobar Type: BONE MARROW SPECIMENOrdering Facility: [facility] Address: [address] [place] [address] Result Comment: Acut e Leukemia NGS Panel, Bone MarrowLaboratory Accession Number: [id number]:Please see linked document and/or separate report for full result whenavailable.As reviewed by Zenia Mae, PhD, HCLD Performed By: #### H DMNGS, F3IM ####[facility] LIMSCLIA [id number] [address] [place] AML MRD BY FCon 06-01-2023 AML MRD BY FC View results in Scan talia Documents link when available. Normal [facility] Comment on above: Order Comment: Elvia escobar Type: BONE MARROW SPECIMENOrdering Facility: [facility] Address: [address] [place] [address] Performed By: #### A MLMRD ####[facility] MOLECULAR MICROCLIA [id number] [place] [address] BONE MARROW ANALYSISon 06-01 ADDENDUM 1: Normal [facility] Comment on above: Order Comment: Elvia escobar Type: BONE MARROW SPECIMENOrdering Facility: [facility] Address: [address] [place] [address] Result Comment: Markus tional immunohistochemistry is performed [...] 3:24 PM Performed By: #### B MRT ####[facility] [id number] [address] [place] CASE REPORT Normal [facility] Comment on above: Order Comment: Speci men Type: BONE MARROW SPECIMENOrdering Facility: [facility] Address: [address] [place] [address] Result Comment: Bone Marrow Pathology Report Case: [id number] Provider: Smith Hdez MD Collected: 06/01/2023 09:00 AMOrdering Location: [place] [address] Received: 06/01/2023 09:20 AMPathologist: Janet Saba, DOSpecimens: A) - BONE MARROW ASPIRATE RIGHT POSTERIOR ILIAC CREST B) - BONE MARROW BIOPSY RIGHT POSTERIOR ILIAC CREST C) - BONE MARROW CLOT RIGHT POSTERIOR ILIAC CREST D) - Peripheral blood smear Performed By: #### B MRT ####[facility] LABIA [id number] [address] [place] DIAGNOSIS COMMENT Normal [facility] Comment on above: Order Comment: Speci men Type: BONE MARROW SPECIMENOrdering Facility: [facility] Address: [address] [place] [address] Result Comment: The patient is 67 years old female with past medical history of breast cancer status post treatment and recent diagnosis of acute myeloid leukemia with complex cytogenetics. 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???s Aurelio Dominguez [facility] Pathology and Laboratory Medicine [place] ([facility], [facility], [facility], [facility], [facility], [facility], [facility], or [facility]) in a manner consistent with CLIA requirements. One or more of these tests have not been cleared or approved by the FDA. [facility] is regulated under CLIA as qualified to perform high-complexity testing. These tests are used for clinical purposes. They should not be regarded as investigational or for research. Positive and negative controls stain appropriately. Performed By: #### B MRT ####[facility] LABCLIA [id number] [facility] [id number] [place] [address] [place] FINAL DIAGNOSIS Normal [facility] Comment on above: Order Comment: Speci men Type: BONE MARROW SPECIMENOrdering Facility: [facility] Address: [address] [place] [address] Result Comment: A-C: Bone marrow, aspirate smears, touch imprint, clot section and biopsy:- Acute myeloid leukemia.- Hypercellular marrow (50-60%) with trilineage hematopoiesis, granulocytic left shift, 28% blasts and multilineage dysplasia.- Few B-cell rich lymphoid aggregates.- See comment.D: Peripheral blood smear:- Pancytopenia with circulating blasts.HJR/AMENA 06/05/2023 Performed By: #### B MRT ####[facility] LABCLIA [id number] [address] OF [facility] FINAL PERFORMING LAB Normal [facility] Comment on above: Order Comment: Speci men Type: BONE MARROW SPECIMENOrdering Facility: [facility] Address: [address] [place] [address] Result Comment: Diag nostic interpretation performed at [facility], [address] [address] CLIA# [id number] Director: Boris Wood M.D. Performed By: #### B MRT ####[facility] LABCLIA [id number] [address] Order Comment: Speci men Type: BONE MARROW SPECIMENOrdering Facility: [facility] Address: [address] [place] [address] Performed By: #### F CLLP, FCLLRFLX ####[facility] LABCLIA [id number] [address] GROSS DESCRIPTION Normal [facility] Comment on above: Order Comment: Speci men Type: BONE MARROW SPECIMENOrdering Facility: [facility] Address: [address] [place] [address] Result Comment: A. B ONE MARROW ASPIRATE [...] Submitted for light microscopy.Gross examination performed at [facility], [address], [place] [id number] June 01, 2023 7:34 PM Performed By: #### B MRT ####[facility] LABCLIA [id number] [facility] [id number] [place] MICROSCOPIC DESCRIPTION Normal [facility] Comment on above: Order Comment: Speci men Type: BONE MARROW SPECIMENOrdering Facility: [facility] Address: [address] [place] [address] Result Comment: GENNY PHERAL BLOOD:CBC (06/01/2023 12:35 [...] in number.Immunohistochemical stains were performed at the [facility] with appropriate controls for further characterization of [...] coat stored. Performed By: #### B MRT ####[facility] LABMATTHEW [id number] [place] [address] [place] BONE MARROW CHROMOSOME ANALo n 06-01-2023 CHROMOSOME BM Normal [facility] Comment on above: Order Comment: Order ing Facility: [facility] Address: [address] [place] [address] Result Comment: Edel knight Accession Number: [id number]: Hortencia Hdezathologist: Beatrice Pathology No: [id number] diagnosis: AMLSpecimen Type: Bone MarrowReceived Date: 06/01/2023Number [...] reviewed by Jovanny Hooper, PhD, FACMGPerformed by [facility] CenterPathology and Laboratory Medicine InstituteDivision of Molecular PathologyCytogenetics Lab, [facility]-[id number] [place], [place] [address]Phone: Toll free: Performed By: #### C [facility] ####[facility] LIMSCLIA [id number] [place] [address] [place] CBC W Auto Differential pane l (Bld)on 06-01-2023 Anisocytosis Ql (Bld) Present Normal [facility] Comment on above: Order Comment: Speci men Type: BLOOD SPECIMENOrdering Facility: [facility] Address: [address] [place] [address] Performed By: #### 5 7021-8 ####[facility] LABCLIA [id number] [place] [address] [place] Basophils (Bld) [#/Vol] 0.00 10*3/uL Normal <0.11 [facility] Comment on above: Order Comment: Speci men Type: BLOOD SPECIMENOrdering Facility: [facility] Address: [address] [place] [address] Performed By: #### 5 7021-8 ####[facility] LABCLIA [id number] [address] [place] Basophils/100 WBC (Bld) 0.0 % Normal [facility] Comment on above: Order Comment: Speci men Type: BLOOD SPECIMENOrdering Facility: [facility] Address: [address] [place] [address] Performed By: #### 5 7021-8 ####[facility] LABCLIA [id number] [address] [place] BLAST% 7.1 % High <=0.0 [facility] Comment on above: Order Comment: Speci men Type: BLOOD SPECIMENOrdering Facility: [facility] Address: [address] Performed By: #### 5 7021-8 ####[facility] LABCLIA [id number] [place] [address] [place] Differential cell count method Nom (Bld) Manual Normal [facility] Comment on above: Order Comment: Speci men Type: BLOOD SPECIMENOrdering Facility: [facility] Address: [address] [place], [place] [address] Performed By: #### 5 7021-8 ####[facility] LABCLIA [id number] [place] [address] [place] Eosinophils (Bld) [#/Vol] 0.03 10*3/uL Normal <0.46 [facility] Comment on above: Order Comment: Speci men Type: BLOOD SPECIMENOrdering Facility: [facility] Address: [address] [place], [place] [address] Performed By: #### 5 7021-8 ####[facility] LABIA [id number] [place] [address] [place] Eosinophils/100 WBC (Bld) 1.8 % Normal [facility] Comment on above: Order Comment: Speci men Type: BLOOD SPECIMENOrdering Facility: [facility] Address: [address] [place], [place] [address] Performed By: #### 5 7021-8 ####[facility] LABIA [id number] [place] [address] [place] Erythrocyte distribution width (RBC) [Ratio] 18.3 % High 11.5-15.0 [facility] Comment on above: Order Comment: Speci men Type: BLOOD SPECIMENOrdering Facility: [facility] Address: [address] [place], [place] [address] Performed By: #### 5 7021-8 ####[facility] LABCLIA [id number] [place] [address] [place] Hematocrit (Bld) [Volume fraction] 19.2 % Low 36.0-46.0 [facility] Comment on above: Order Comment: Speci men Type: BLOOD SPECIMENOrdering Facility: [facility] Address: [address] [place] [address] Performed By: #### 5 7021-8 ####[facility] LABCLIA [id number] [place] [address] [place] Hemoglobin (Bld) [Mass/Vol] 6.6 g/dL Low 11.5-15.5 [facility] Comment on above: Order Comment: Speci men Type: BLOOD SPECIMENOrdering Facility: [facility] Address: [address] [place] [address] Performed By: #### 5 7021-8 ####[facility] LABCLIA [id number] [place] [address] [place] HYPOGRANULATED PMNS Present Normal [facility] Comment on above: Order Comment: Speci men Type: BLOOD SPECIMENOrdering Facility: [facility] Address: [address] [place], [place] [address] Performed By: #### 5 7021-8 ####[facility] LABCLIA [id number] [place] [address] [place] Lymphocytes (Bld) [#/Vol] 1.33 10*3/uL Normal 1.00-4.00 [facility] Comment on above: Order Comment: Speci men Type: BLOOD SPECIMENOrdering Facility: [facility] Address: [address] [place], [place] [address] Performed By: #### 5 7021-8 ####[facility] LABCLIA [id number] [address] [place] Lymphocytes/100 WBC (Bld) 76.8 % Normal [facility] Comment on above: Order Comment: Speci men Type: BLOOD SPECIMENOrdering Facility: [facility] Address: [address] [place] [address] Performed By: #### 5 7021-8 ####[facility] [id number] [address] MCH (RBC) [Entitic mass] 34.7 pg High 26.0-34.0 [facility] Comment on above: Order Comment: Speci men Type: BLOOD SPECIMENOrdering Facility: [facility] Address: [address] Performed By: #### 5 7021-8 ####[facility] [id number] [address] [place] MCHC (RBC) [Mass/Vol] 34.4 g/dL Normal 30.5-36.0 [facility] Comment on above: Order Comment: Speci men Type: BLOOD SPECIMENOrdering Facility: [facility] Address: [address] Performed By: #### 5 7021-8 ####[facility] [id number] [address] [place] MCV (RBC) [Entitic vol] 101.1 fL High 80.0-100.0 [facility] Comment on above: Order Comment: Speci men Type: BLOOD SPECIMENOrdering Facility: [facility] Address: [address] Performed By: #### 5 7021-8 ####[facility] [id number] [place] [address] [place] Monocytes (Bld) [#/Vol] 0.00 10*3/uL Normal <0.87 [facility] Comment on above: Order Comment: Speci men Type: BLOOD SPECIMENOrdering Facility: [facility] Address: [address] Performed By: #### 5 7021-8 ####[facility] [id number] [place] [address] [place] Monocytes/100 WBC (Bld) 0.0 % Normal [facility] Comment on above: Order Comment: Speci men Type: BLOOD SPECIMENOrdering Facility: [facility] Address: [address] [place] [address] Performed By: #### 5 7021-8 ####[facility] LABCLIA [id number] [place] [address] [place] MYELO% 0.9 % Normal [facility] Comment on above: Order Comment: Speci men Type: BLOOD SPECIMENOrdering Facility: [facility] Address: [address] [place] [address] Performed By: #### 5 7021-8 ####[facility] LABCLIA [id number] [place] [address] [place] Neutrophils (Bld) [#/Vol] 0.23 10*3/uL Low 1.45-7.50 [facility] Comment on above: Order Comment: Speci men Type: BLOOD SPECIMENOrdering Facility: [facility] Address: [address] [place], [place] [address] Performed By: #### 5 7021-8 ####[facility] LABCLIA [id number] [place] [address] [place] Neutrophils/100 WBC (Bld) 13.4 % Normal [facility] Comment on above: Order Comment: Speci men Type: BLOOD SPECIMENOrdering Facility: [facility] Address: [address] [place], [place] [address] Performed By: #### 5 7021-8 ####[facility] LABCLIA [id number] [place] [address] [place] Nucleated RBC (Bld) [#/Vol] 10*3/uL Normal <0.01 [facility] Comment on above: Order Comment: Speci men Type: BLOOD SPECIMENOrdering Facility: [facility] Address: [address] [place] [address] Performed By: #### 5 7021-8 ####[facility] LABCLIA [id number] [place] [address] [place] Nucleated RBC/100 WBC (Bld) [Ratio] 0.0 /100 WBC Normal [facility] Comment on above: Order Comment: Speci men Type: BLOOD SPECIMENOrdering Facility: [facility] Address: [address] [place] [address] Performed By: #### 5 7021-8 ####[facility] LABIA [id number] [place] [address] [place] Ovalocytes LM Ql (Bld) Few Normal [facility] Comment on above: Order Comment: Speci men Type: BLOOD SPECIMENOrdering Facility: [facility] Address: [address] [place] [address] Performed By: #### 5 7021-8 ####[facility] LABIA [id number] [place] [address] [place] Platelet mean volume (Bld) [Entitic vol] Normal [facility] Comment on above: Order Comment: Speci men Type: BLOOD SPECIMENOrdering Facility: [facility] Address: [address] [place] [address] Result Comment: Unab le to Report. Performed By: #### 5 7021-8 ####[facility] LABIA [id number] [place] [address] [place] Platelets (Bld) [#/Vol] 10 10*3/uL Low 150-400 [facility] Comment on above: Order Comment: Speci men Type: BLOOD SPECIMENOrdering Facility: [facility] Address: [address] [place] [address] Result Comment: Resu lts checked and verified.No clot detected. Performed By: #### 5 7021-8 ####[facility] LABCLIA [id number] [place] [address] [place] Platelets Estimate (Bld) [#/Vol] Decreased Normal [facility] Comment on above: Order Comment: Speci men Type: BLOOD SPECIMENOrdering Facility: [facility] Address: [address] [place] [address] Performed By: #### 5 7021-8 ####[facility] LABCLIA [id number] [place] [address] [place] Polychromasia LM Ql (Bld) Slight Normal [facility] Comment on above: Order Comment: Speci men Type: BLOOD SPECIMENOrdering Facility: [facility] Address: [address] [place], [place] [address] Performed By: #### 5 7021-8 ####[facility] LABCLIA [id number] [place] [address] [place] RBC (Bld) [#/Vol] 1.90 10*6/uL Low 3.90-5.20 [facility] Comment on above: Order Comment: Speci men Type: BLOOD SPECIMENOrdering Facility: [facility] Address: [address] [place] [address] Performed By: #### 5 7021-8 ####[facility] LABCLIA [id number] [address] [place] RBC FRAGMENTS Few Abnormal None Seen [facility] Comment on above: Order Comment: Speci men Type: BLOOD SPECIMENOrdering Facility: [facility] Address: [address] [place] [address] Performed By: #### 5 7021-8 ####[facility] LABCLIA [id number] [address] [place] RED CELL MORPH Reviewed: see result s of individual morphologies Normal [facility] Comment on above: Order Comment: Speci men Type: BLOOD SPECIMENOrdering Facility: [facility] Address: [address] [place], [place] [address] Performed By: #### 5 7021-8 ####[facility] LABCLIA [id number] [place] [address] [place] WBC (Bld) [#/Vol] 1.73 10*3/uL Low 3.70-11.00 [facility] Comment on above: Order Comment: Speci men Type: BLOOD SPECIMENOrdering Facility: [facility] Address: [address] Performed By: #### 5 7021-8 ####[facility] LABIA [id number] [place] [address] [place] WBC Left Shift Ql (Bld) Present Normal [facility] Comment on above: Order Comment: Speci men Type: BLOOD SPECIMENOrdering Facility: [facility] Address: [address] [place], [place] [address] Performed By: #### 5 7021-8 ####[facility] LABIA [id number] [place] [address] [place] CONSULT PROGon 06-01-2023 CONSULT PROG Normal [facility] CT BIOPSY BONE MARROW (HEMO) on 06-01-2023 CT BIOPSY BONE MARROW (HEMO) Normal [facility] Comprehensive metabolic 2000 panelon 06-01-2023 Albumin [Mass/Vol] 3.4 g/dL Low 3.9-4.9 [facility] Comment on above: Order Comment: Speci men Type: BLOOD SPECIMENOrdering Facility: [facility] Address: [address] Performed By: #### 2 777-1, 20240-9, 3084-1, 37813-0 ####[facility] LABIA [id number] [place] [address] [place] ALP [Catalytic activity/Vol] 53 U/L Normal 34-123 [facility] Comment on above: Order Comment: Speci men Type: BLOOD SPECIMENOrdering Facility: [facility] Address: [address] Performed By: #### 2 777-1, 81929-1, 3083-, ####[facility] LABCLIA [id number] [place] [address] [place] ALT [Catalytic activity/Vol] 14 U/L Normal 7-38 [facility] Comment on above: Order Comment: Speci men Type: BLOOD SPECIMENOrdering Facility: [facility] Address: [address] [place] [address] Performed By: #### 2 777-1, 30955-6, 3083-, ####[facility] LABCLIA [id number] [place] [address] [place] Anion gap [Moles/Vol] 11 mmol/L Normal 9-18 [facility] Comment on above: Order Comment: Speci men Type: BLOOD SPECIMENOrdering Facility: [facility] Address: [address] [place] [address] Performed By: #### 2 777-1, 87576-6, 3083-09, ####[facility] LABCLIA [id number] [place] [address] [place] AST [Catalytic activity/Vol] 12 U/L Low 13-35 [facility] Comment on above: Order Comment: Speci men Type: BLOOD SPECIMENOrdering Facility: [facility] Address: [address] [place], [place] [address] Performed By: #### 2 777-1, 21152-0, 3083-09, ####[facility] LABCLIA [id number] [place] [address] [place] Bilirubin [Mass/Vol] 0.2 mg/dL Normal 0.2-1.3 [facility] Comment on above: Order Comment: Speci men Type: BLOOD SPECIMENOrdering Facility: [facility] Address: [address] [place], [place] [address] Performed By: #### 2 777-1, 55233-5, 3083-09, ####[facility] LABCLIA [id number] [place] [address] [place] Calcium [Mass/Vol] 8.7 mg/dL Normal 8.5-10.2 [facility] Comment on above: Order Comment: Speci men Type: BLOOD SPECIMENOrdering Facility: [facility] Address: [address] [place], [place] [address] Performed By: #### 2 777-1, 07874-4, 3083-09, ####[facility] LABIA [id number] [place] [address] [place] Chloride [Moles/Vol] 109 mmol/L High 97-105 [facility] Comment on above: Order Comment: Speci men Type: BLOOD SPECIMENOrdering Facility: [facility] Address: [address] [place], [place] [address] Performed By: #### 2 777-1, 90030-3, 3083-09, ####[facility] LABIA [id number] [place] [address] [place] CO2 [Moles/Vol] 21 mmol/L Low 22-30 [facility] Comment on above: Order Comment: Speci men Type: BLOOD SPECIMENOrdering Facility: [facility] Address: [address] [place], [place] [address] Performed By: #### 2 777-1, 80077-7, 3083-09, 71257-6 ####[facility] LABCLIA [id number] [place] [id number] [place] Creatinine [Mass/Vol] 1.03 mg/dL High 0.58-0.96 [facility] Comment on above: Order Comment: Speci men Type: BLOOD SPECIMENOrdering Facility: [facility] Address: [address] [address] Performed By: #### 2 777-1, 80512-9, 3084-1, 43315-7 ####[facility] LABIA [id number] [address] [place] Creatinine and Glomerular filtration rate.predicted panel (S/P/Bld) 59 mL/min/1.73m??? Low >=60 [facility] Comment on above: Order Comment: Elvia escobar Type: BLOOD SPECIMENOrdering Facility: [facility] Address: [address] Result Comment: Berenice mated Glomerular Filtration Rate [...] actual GFR. Performed By: #### 2 777-1, 64473-1, 3084-1, 85657-3 ####[facility] LABCLIA [id number] [place] [address] [place] Glucose [Mass/Vol] 106 mg/dL High 74-99 [facility] Comment on above: Order Comment: Elvia escobar Type: BLOOD SPECIMENOrdering Facility: [facility] Address: [address] [place] [address] Result Comment: The [place] Diabetes Association (ADA) provides guidance for cutoff [...] Standards of Medical Care in Diabetes 2016, [place] Diabetes Association. Diabetes Care. 2016.39(Suppl 1). Performed By: #### 2 777-1, 14761-7, 3083-09, ####[facility] LABCLIA [id number] [address] [address] [place] Potassium [Moles/Vol] 3.7 mmol/L Normal 3.7-5.1 [facility] Comment on above: Order Comment: Speci men Type: BLOOD SPECIMENOrdering Facility: [facility] Address: [address] [place] [address] Performed By: #### 2 777-1, 42165-2, 3083-09, ####[facility] LABIA [id number] [place] [address] [place] Protein [Mass/Vol] 5.4 g/dL Low 6.3-8.0 [facility] Comment on above: Order Comment: Speci men Type: BLOOD SPECIMENOrdering Facility: [facility] Address: [address] [place] [address] Performed By: #### 2 777-1, 62259-3, 3083-09, ####[facility] LABIA [id number] [place] [address] [place] Sodium [Moles/Vol] 141 mmol/L Normal 136-144 [facility] Comment on above: Order Comment: Speci men Type: BLOOD SPECIMENOrdering Facility: [facility] Address: [address] [place], [place] [address] Performed By: #### 2 777-1, 35320-9, 3083-09, ####[facility] LABCLIA [id number] [address] [address] [place] Urea nitrogen [Mass/Vol] 16 mg/dL Normal 7-21 [facility] Comment on above: Order Comment: Speci men Type: BLOOD SPECIMENOrdering Facility: [facility] Address: [address] [place] [address] Performed By: #### 2 777-1, 95350-9, 3084-1, 35858-5 ####[facility] LABCLIA [id number] [address] [place] DNA EXTRACTION BONE MARROW ( BUFFY COAT)on 06-01-2023 DNA EXTRACTION BONE MARROW (BUFFY COAT) Normal [facility] Comment on above: Order Comment: Rochellei [facility] Type: BONE MARROW SPECIMENOrdering Facility: [facility] Address: [address] [place] [address] Result Comment: This specimen was received and successfully processed for future DNA purification should molecular testing be needed. Specimens will be available for 3 years from date of collection.To order testing on this specimen for [facility] patients, please place an [facility] order for DNA and RNA Clinical Testing (SQNUCADD). To order testing for patients outside of the [facility] system, please request DNA and RNA for Clinical Testing, order code [id number].If additional paperwork is required for testing, please send completed forms via secure email to . Performed By: #### N UCBUF ####[facility] LIMSCLIA [id number] [address] FLOW CYTOMETRY FOR LEUKEMIA/ LYMPHOMA (FCLL) PERFORMABLEon 06-01-2023 FLOW CYTOMETRY ORDER STATUS See Results in chart under F case ID Normal [facility] Comment on above: Order Comment: Speci men Type: BONE MARROW SPECIMENOrdering Facility: [facility] Address: [address] [place] [address] Result Comment: Vero ected result: Previously reported as A bone marrow sample was received for potential flow cytometry studies. Following morphologic review, flow cytometric studies will be ordered by the hematopathologist if testing is indicated. on 06/01/2023 at9:31 AM EDT. Performed By: #### F CLLP, FCLLRFLX ####[facility] LABCLIA [id number] [address] [place] FLOW CYTOMETRY FOR LEUKEMIA/ LYMPHOMA (FCLL) REFLEXon 06-01-2023 DIAGNOSIS COMMENT Normal [facility] Comment on above: Order Comment: Speci men Type: BONE MARROW SPECIMENOrdering Facility: [facility] Address: [address] [place] [address] Performed By: #### F CLLP, FCLLRFLX ####[facility] LABCLIA [id number] [address] FLOW CYTOMETRY RESULTS Normal [facility] Comment on above: Order Comment: Speci men Type: BONE MARROW SPECIMENOrdering Facility: [facility] Address: [address] [place] [address] Result Comment: Spec imen type: Bone marrow aspirateViability: 99%Morphology comments: See associated bone marrow biopsy report.Results:Marker Normal Cell Result (Lymph) Type CD2 T-cell Normal patternCD3 T-cell Normal patternCD4 T-cell subset Normal patternCD5 T-cell Normal patternCD7 T-cell Normal patternCD8 T-cell subset Normal dcrqwurCZ18 B-cell Normal msbzujcCU09 Myeloid Normal hobugtzHL64/56 NK-cell Normal khxbmhrSS91 B-cell Normal fzepszqAF17 B-cell Normal atntfopRG38 B-cell Normal whibzogTR64 Hough-leukocyte Normal xvgbfmbHN781 B-cell Normal auhgkyhDK473 B-cell Normal patternKappa/Lambda B-cell subset PolytypicTRBC1 T-cell Normal, polytypicFlow cytometric analysis of the bone marrow aspirate reveals that 13% of total events have the CD45 and light scatter properties of lymphocytes. The lymphocytes are composed of T-cells (91%, CD4:CD8 ratio = 3.2), NK cells (1%), and polytypic B-cells (8%). Performed By: #### F CLLP, FCLLRFLX ####[facility] LABCLIA [id number] [place] [address] [place] GROSS DESCRIPTION A. Bone Marrow Normal [facility] Comment on above: Order Comment: Elvia escobar Type: BONE MARROW SPECIMENOrdering Facility: [facility] Address: [address] [place] [address] Result Comment: Rece ived 3 ml BM in heparin. Performed By: #### F CLLP, FCLLRFLX ####[facility] LABCLIA [id number] [place] [address] [place] INTERPRETATION Normal [facility] Comment on above: Order Comment: Elvia escobar Type: BONE MARROW SPECIMENOrdering Facility: [facility] Address: [address] [place] [address] Result Comment: The lymphoproliferative disorder panel is performed on this bone marrow by flow cytometry. There is no immunophenotypic evidence of involvement by a lymphoproliferative disorder. Correlation with the clinical and bone marrow histopathologic findings is suggested. Performed By: #### F CLLP, FCLLRFLX ####[facility] LABCLIA [id number] [place] [address] [place] FLT3 ITD HN BONE MARROWon CLARITY SIGNOUT PATHOLOGIST [id number] Normal [facility] Comment on above: Order Comment: Elvia escobar Type: BONE MARROW SPECIMENOrdering Facility: [facility] Address: [address] [place] [address] Performed By: #### H DMNGS, F3IM ####[facility] LIMSCLIA [id number] [place] [address] [place] FLT3 ITD HN PANEL BONE MARROW Normal [facility] Comment on above: Order Comment: Elvia escobar Type: BONE MARROW SPECIMENOrdering Facility: [facility] Address: [address] [place] [address] Result Comment: FLT3 Internal Tandem Duplication (ITD) Mutation TestingLaboratory Accession Number: [id number] Internal Tandem Duplication (ITD) mutation: Not DetectedComment:FLT3/ITD [...] from the specimen provided. Regions of the JJZ1hbrdmkkm kinase receptor gene are subjected to the [...] was developed and its performance characteristics determinedby [facility]'s [facility] Pathology and LaboratoryMedicine [place] (-PLWY). It has not been cleared or approved bythe FDA. RT-PLMI is regulated under CLIA as certified to perform high-complexity testing. This test is used for clinical purposes. It shouldnot be regarded as investigational or for research.Testing and interpretation performed at [facility], [address] [place] [address]. CLIA Number: [id number] reviewed by Leslye Ha MD, PhD Performed By: #### H DMN, F3 ####[facility] LIMSCLIA [id number] [place] [address] [place] HISTORY PHYSICALon 3 HISTORY PHYSICAL Normal [facility] Magnesium SerPl-mCncon 06-01 Magnesium [Mass/Vol] 2.1 mg/dL Normal 1.7-2.3 [facility] Comment on above: Order Comment: Speci men Type: BLOOD SPECIMENOrdering Facility: [facility] Address: [address] [address] Performed By: #### 2 777-1, 13571-2, 308-1, 04474-7 ####[facility] LABCLIA [id number] [place] [address] [place] PT EDon 06-01-2023 PT ED Normal [facility] Phosphate SerPl-mCncon 06-01 Phosphate [Mass/Vol] 4.4 mg/dL Normal 2.7-4.8 [facility] Comment on above: Order Comment: Speci men Type: BLOOD SPECIMENOrdering Facility: [facility] Address: [address] [address] Performed By: #### 2 777-1, 34347-4, 3084-1, 77871-4 ####[facility] LABCLIA [id number] [place] [address] [place] Urate SerPl-mCncon 3 Urate [Mass/Vol] 3.2 mg/dL Normal 2.5-6.6 [facility] Comment on above: Order Comment: Speci men Type: BLOOD SPECIMENOrdering Facility: [facility] Address: [address] [place] [address] Performed By: #### 2 777-1, 08476-8, 3084-1, 07406-5 ####[facility] LABCLIA [id number] [place] [address] [place] ALLIED HEALTHon 05-31-2023 ALLIED HEALTH Normal [facility] CBC W Auto Differential pane l (Bld)on 05-31-2023 Anisocytosis Ql (Bld) Present Normal [facility] Comment on above: Order Comment: Speci men Type: BLOOD SPECIMENOrdering Facility: [facility] Address: [address] [place] [address] Performed By: #### 5 7021-8 ####[facility] LABCLIA [id number] [place] [address] [place] Basophils (Bld) [#/Vol] 0.00 10*3/uL Normal <0.11 [facility] Comment on above: Order Comment: Speci men Type: BLOOD SPECIMENOrdering Facility: [facility] Address: [address] [place] [address] Performed By: #### 5 7021-8 ####[facility] LABCLIA [id number] [place] [address] [place] Basophils/100 WBC (Bld) 0.0 % Normal [facility] Comment on above: Order Comment: Speci men Type: BLOOD SPECIMENOrdering Facility: [facility] Address: [address] [place] [address] Performed By: #### 5 7021-8 ####[facility] LABCLIA [id number] [address] [place] BLAST% 1.8 % High <=0.0 [facility] Comment on above: Order Comment: Speci men Type: BLOOD SPECIMENOrdering Facility: [facility] Address: [address] [place], [place] [address] Performed By: #### 5 7021-8 ####[facility] LABCLIA [id number] [place] [address] [place] Differential cell count method Nom (Bld) Manual Normal [facility] Comment on above: Order Comment: Speci men Type: BLOOD SPECIMENOrdering Facility: [facility] Address: [address] [place], [place] [address] Performed By: #### 5 7021-8 ####[facility] LABCLIA [id number] [place] [address] [place] Eosinophils (Bld) [#/Vol] 0.06 10*3/uL Normal <0.46 [facility] Comment on above: Order Comment: Speci men Type: BLOOD SPECIMENOrdering Facility: [facility] Address: [address] [place], [place] [address] Performed By: #### 5 7021-8 ####[facility] LABCLIA [id number] [place] [address] [place] Eosinophils/100 WBC (Bld) 3.5 % Normal [facility] Comment on above: Order Comment: Speci men Type: BLOOD SPECIMENOrdering Facility: [facility] Address: [address] [place], [place] [address] Performed By: #### 5 7021-8 ####[facility] LABCLIA [id number] [place] [address] [place] Erythrocyte distribution width (RBC) [Ratio] 17.7 % High 11.5-15.0 [facility] Comment on above: Order Comment: Speci men Type: BLOOD SPECIMENOrdering Facility: [facility] Address: [address] [place], [place] [address] Performed By: #### 5 7021-8 ####[facility] LABCLIA [id number] [place] [address] [place] Hematocrit (Bld) [Volume fraction] 21.1 % Low 36.0-46.0 [facility] Comment on above: Order Comment: Speci men Type: BLOOD SPECIMENOrdering Facility: [facility] Address: [address] [place] [address] Performed By: #### 5 7021-8 ####[facility] LABCLIA [id number] [place] [address] [place] Hemoglobin (Bld) [Mass/Vol] 7.2 g/dL Low 11.5-15.5 [facility] Comment on above: Order Comment: Speci men Type: BLOOD SPECIMENOrdering Facility: [facility] Address: [address] [place] [address] Performed By: #### 5 7021-8 ####[facility] LABCLIA [id number] [place] [address] [place] HYPOGRANULATED PMNS Present Normal [facility] Comment on above: Order Comment: Speci men Type: BLOOD SPECIMENOrdering Facility: [facility] Address: [address] [place] [address] Performed By: #### 5 7021-8 ####[facility] LABIA [id number] [place] [address] [place] Lymphocytes (Bld) [#/Vol] 1.43 10*3/uL Normal 1.00-4.00 [facility] Comment on above: Order Comment: Speci men Type: BLOOD SPECIMENOrdering Facility: [facility] Address: [address] [place], [place] [address] Performed By: #### 5 7021-8 ####[facility] LABCLIA [id number] [place] [address] [place] Lymphocytes/100 WBC (Bld) 85.9 % Normal [facility] Comment on above: Order Comment: Speci men Type: BLOOD SPECIMENOrdering Facility: [facility] Address: [address] Performed By: #### 5 7021-8 ####[facility] [id number] [address] MCH (RBC) [Entitic mass] 34.0 pg Normal 26.0-34.0 [facility] Comment on above: Order Comment: Speci men Type: BLOOD SPECIMENOrdering Facility: [facility] Address: [address] Performed By: #### 5 7021-8 ####[facility] [id number] [address] [place] [facility] MCHC (RBC) [Mass/Vol] 34.1 g/dL Normal 30.5-36.0 [facility] Comment on above: Order Comment: Speci men Type: BLOOD SPECIMENOrdering Facility: [facility] Address: [address] [place], [place] [address] Performed By: #### 5 7021-8 ####[facility] [id number] [address] [place] MCV (RBC) [Entitic vol] 99.5 fL Normal 80.0-100.0 [facility] Comment on above: Order Comment: Speci men Type: BLOOD SPECIMENOrdering Facility: [facility] Address: [address] [place], [place] [address] Performed By: #### 5 7021-8 ####[facility] [id number] [place] [address] [place] Monocytes (Bld) [#/Vol] 0.00 10*3/uL Normal <0.87 [facility] Comment on above: Order Comment: Speci men Type: BLOOD SPECIMENOrdering Facility: [facility] Address: [address] [place], [place] [address] Performed By: #### 5 7021-8 ####[facility] LABCLIA [id number] [place] [address] [place] Monocytes/100 WBC (Bld) 0.0 % Normal [facility] Comment on above: Order Comment: Speci men Type: BLOOD SPECIMENOrdering Facility: [facility] Address: [address] [place] [address] Performed By: #### 5 7021-8 ####[facility] LABCLIA [id number] [place] [address] [place] Neutrophils (Bld) [#/Vol] 0.15 10*3/uL Low 1.45-7.50 [facility] Comment on above: Order Comment: Speci men Type: BLOOD SPECIMENOrdering Facility: [facility] Address: [address] [place] [address] Performed By: #### 5 7021-8 ####[facility] LABCLIA [id number] [place] [address] [place] Neutrophils/100 WBC (Bld) 8.8 % Normal [facility] Comment on above: Order Comment: Speci men Type: BLOOD SPECIMENOrdering Facility: [facility] Address: [address] [place], [place] [address] Performed By: #### 5 7021-8 ####[facility] LABCLIA [id number] [place] [address] [place] Nucleated RBC (Bld) [#/Vol] 0.01 10*3/uL High <0.01 [facility] Comment on above: Order Comment: Speci men Type: BLOOD SPECIMENOrdering Facility: [facility] Address: [address] [place], [place] [address] Performed By: #### 5 7021-8 ####[facility] LABCLIA [id number] [place] [address] [place] Nucleated RBC/100 WBC (Bld) [Ratio] 0.9 /100 WBC Normal [facility] Comment on above: Order Comment: Speci men Type: BLOOD SPECIMENOrdering Facility: [facility] Address: [address] [place] [address] Performed By: #### 5 7021-8 ####[facility] LABIA [id number] [place] [address] [place] Ovalocytes LM Ql (Bld) Few Normal [facility] Comment on above: Order Comment: Speci men Type: BLOOD SPECIMENOrdering Facility: [facility] Address: [address] [place] [address] Performed By: #### 5 7021-8 ####[facility] LABIA [id number] [place] [address] [place] Platelet mean volume (Bld) [Entitic vol] Normal [facility] Comment on above: Order Comment: Speci men Type: BLOOD SPECIMENOrdering Facility: [facility] Address: [address] [place], [place] [address] Result Comment: Unab le to Report. Performed By: #### 5 7021-8 ####[facility] [id number] [place] [address] [place] Platelets (Bld) [#/Vol] 13 10*3/uL Low 150-400 [facility] Comment on above: Order Comment: Speci men Type: BLOOD SPECIMENOrdering Facility: [facility] Address: [address] [place], [place] [address] Result Comment: No c lot detected.Results checked and verified. Performed By: #### 5 7021-8 ####[facility] LABIA [id number] [place] [address] [place] Platelets Estimate (Bld) [#/Vol] Decreased Normal [facility] Comment on above: Order Comment: Speci men Type: BLOOD SPECIMENOrdering Facility: [facility] Address: [address] [place] [address] Performed By: #### 5 7021-8 ####[facility] LABCLIA [id number] [place] [address] [place] Polychromasia LM Ql (Bld) Slight Normal [facility] Comment on above: Order Comment: Speci men Type: BLOOD SPECIMENOrdering Facility: [facility] Address: [address] [place] [address] Performed By: #### 5 7021-8 ####[facility] LABCLIA [id number] [address] [place] RBC (Bld) [#/Vol] 2.12 10*6/uL Low 3.90-5.20 [facility] Comment on above: Order Comment: Speci men Type: BLOOD SPECIMENOrdering Facility: [facility] Address: [address] [place] [address] Performed By: #### 5 7021-8 ####[facility] LABCLIA [id number] [place] [address] [place] RBC FRAGMENTS Few Abnormal None Seen [facility] Comment on above: Order Comment: Speci men Type: BLOOD SPECIMENOrdering Facility: [facility] Address: [address] [place] [address] Performed By: #### 5 7021-8 ####[facility] LABIA [id number] [place] [address] [place] RED CELL MORPH Reviewed: see result s of individual morphologies Normal [facility] Comment on above: Order Comment: Speci men Type: BLOOD SPECIMENOrdering Facility: [facility] Address: [address] [place] [address] Performed By: #### 5 7021-8 ####[facility] LABCLIA [id number] [place] [address] [place] WBC (Bld) [#/Vol] 1.66 10*3/uL Low 3.70-11.00 [facility] Comment on above: Order Comment: Speci men Type: BLOOD SPECIMENOrdering Facility: [facility] Address: [address] [place] [address] Result Comment: No c lot detected. Performed By: #### 5 7021-8 ####[facility] LABCLIA [id number] [place] [address] [place] CNPNon 05-31-2023 CNPN Normal [facility] CONSULT PROGon 05-31-2023 CONSULT PROG Normal [facility] metabolic 2000 panelon 05-31-2023 Albumin [Mass/Vol] 3.5 g/dL Low 3.9-4.9 [facility] Comment on above: Order Comment: Speci men Type: BLOOD SPECIMENOrdering Facility: [facility] Address: [address] [place] [address] Performed By: #### 2 4323-8, 70889-7, 277-1, 3084-1 ####[facility] LABCLIA [id number] [place] [address] [place] ALP [Catalytic activity/Vol] 53 U/L Normal 34-123 [facility] Comment on above: Order Comment: Speci men Type: BLOOD SPECIMENOrdering Facility: [facility] Address: [address] [place] [address] Performed By: #### 2 4323-8, 60556-2, 277-1, 3084-1 ####[facility] LABCLIA [id number] [place] [id number] [place] ALT [Catalytic activity/Vol] 17 U/L Normal 7-38 [facility] Comment on above: Order Comment: Speci men Type: BLOOD SPECIMENOrdering Facility: [facility] Address: [address] [place] [address] Performed By: #### 2 4323-8, 68262-9, 277-1, 3084-1 ####[facility] LABCLIA [id number] [place] [address] [place] Anion gap [Moles/Vol] 10 mmol/L Normal 9-18 [facility] Comment on above: Order Comment: Speci men Type: BLOOD SPECIMENOrdering Facility: [facility] Address: [address] [place] [address] Performed By: #### 2 4323-8, 82732-1, 2776-, 3083-1 ####[facility] LABCLIA [id number] [place] [address] [place] AST [Catalytic activity/Vol] 16 U/L Normal 13-35 [facility] Comment on above: Order Comment: Speci men Type: BLOOD SPECIMENOrdering Facility: [facility] Address: [address] [place] [address] Performed By: #### 2 4323-8, 89508-0, 2776-09, 3083-1 ####[facility] LABCLIA [id number] [place] [address] [place] Bilirubin [Mass/Vol] 0.3 mg/dL Normal 0.2-1.3 [facility] Comment on above: Order Comment: Speci men Type: BLOOD SPECIMENOrdering Facility: [facility] Address: [address] [place] [address] Performed By: #### 2 4323-8, 94106-7, 2776-09, 3083-1 ####[facility] LABCLIA [id number] [place] [address] [place] Calcium [Mass/Vol] 9.2 mg/dL Normal 8.5-10.2 [facility] Comment on above: Order Comment: Speci men Type: BLOOD SPECIMENOrdering Facility: [facility] Address: [address] [place] [address] Performed By: #### 2 4323-8, 03192-4, 2776-, 3083-1 ####[facility] LABCLIA [id number] [place] [address] [place] Chloride [Moles/Vol] 108 mmol/L High 97-105 [facility] Comment on above: Order Comment: Speci men Type: BLOOD SPECIMENOrdering Facility: [facility] Address: [address] [place] [address] Performed By: #### 2 4323-8, 69455-6, 2776-, 3084-1 ####[facility] LABIA [id number] [place] [address] [place] CO2 [Moles/Vol] 23 mmol/L Normal 22-30 [facility] Comment on above: Order Comment: Speci men Type: BLOOD SPECIMENOrdering Facility: [facility] Address: [address] [place] [address] Performed By: #### 2 4323-8, 17438-3, 2776-, 3084-1 ####[facility] LABIA [id number] [place] [address] [place] Creatinine [Mass/Vol] 0.96 mg/dL Normal 0.58-0.96 [facility] Comment on above: Order Comment: Speci men Type: BLOOD SPECIMENOrdering Facility: [facility] Address: [address] [place] [address] Performed By: #### 2 4323-8, 31550-7, 277-, 3084-1 ####[facility] LABIA [id number] [place] [address] [place] Creatinine and Glomerular filtration rate.predicted panel (S/P/Bld) 64 mL/min/1.73m??? Normal >=60 [facility] Comment on above: Order Comment: Speci men Type: BLOOD SPECIMENOrdering Facility: [facility] Address: [address] [place] [address] Result Comment: Berenice mated Glomerular Filtration Rate [...] GFR. Performed By: #### 2 4323-8, , 2776-, 3083- ####[facility] LABCLIA [id number] [place] [address] [place] Glucose [Mass/Vol] 106 mg/dL High 74-99 [facility] Comment on above: Order Comment: Elvia escobar Type: BLOOD SPECIMENOrdering Facility: [facility] Address: [address] [address] Result Comment: The [place] Diabetes Association (ADA) provides guidance for cutoff [...] Standards of Medical Care in Diabetes 2016, [place] Diabetes Association. Diabetes Care. 2016.39(Suppl 1). Performed By: #### 2 4323-8, , 2776-09, 3083-09 ####[facility] LABCLIA [id number] [place] [id number] [place] Potassium [Moles/Vol] 4.0 mmol/L Normal 3.7-5.1 [facility] Comment on above: Order Comment: Elvia escobar Type: BLOOD SPECIMENOrdering Facility: [facility] Address: [address] [phone] Performed By: #### 2 4323-8, , 2776-09, 3083- ####[facility] LABCLIA [id number] [address] [address] [place] Protein [Mass/Vol] 5.7 g/dL Low 6.3-8.0 [facility] Comment on above: Order Comment: Speci men Type: BLOOD SPECIMENOrdering Facility: [facility] Address: [address] [place] [address] Performed By: #### 2 4323-8, 49179-6, 2776-, 3083-1 ####[facility] LABIA [id number] [place] [address] [place] Sodium [Moles/Vol] 141 mmol/L Normal 136-144 [facility] Comment on above: Order Comment: Speci men Type: BLOOD SPECIMENOrdering Facility: [facility] Address: [address] [place] [address] Performed By: #### 2 4323-8, 02876-1, 2776-, 308-1 ####[facility] LABIA [id number] [place] [address] [place] Urea nitrogen [Mass/Vol] 13 mg/dL Normal 7-21 [facility] Comment on above: Order Comment: Speci men Type: BLOOD SPECIMENOrdering Facility: [facility] Address: [address] [place] [address] Performed By: #### 2 4323-8, 84536-4, 2776-09, 3083-1 ####[facility] LABIA [id number] [address] [address] [place] Magnesium SerPl-mCncon 05-31 Magnesium [Mass/Vol] 2.1 mg/dL Normal 1.7-2.3 [facility] Comment on above: Order Comment: Speci men Type: BLOOD SPECIMENOrdering Facility: [facility] Address: [address] [place] [address] Performed By: #### 2 4323-8, 34852-4, 2776-1, 3084-1 ####[facility] LABCLIA [id number] [place] [address] [place] PT EDon 05-31-2023 PT ED Normal [facility] PT panel Coag (PPP)on 2022 INR Coag (PPP) [Relative time] 1.1 {INR} Normal 0.9-1.3 [facility] Comment on above: Order Comment: Speci men Type: BLOOD SPECIMENOrdering Facility: [facility] Address: [address] [address] Result Comment: Rajwinder min K Antagonist (VKA) Therapeutic Range: INR 2 to 3 (Target INR of 2.5)Note: For patients treated with VKA drugs, such as warfarin, the [place] [employer] 2012 Guideline recommends [...] of 3).Beltran GH, et al. Chest 2012, 141:7S-47SNishcristina RA, et al. [facility] 2017, 70: 252-289 Performed By: #### 3 4528-0 ####[facility] LABCLIA [id number] [place] [id number] [place] PT Coag (PPP) [Time] 11.3 s Normal 9.7-13.0 [facility] Comment on above: Order Comment: Speci men Type: BLOOD SPECIMENOrdering Facility: [facility] Address: [address] [phone] Performed By: #### 3 4528-0 ####[facility] LABCLIA [id number] [place] [address] [place] Phosphate SerPl-mCncon 05-31 Phosphate [Mass/Vol] 4.0 mg/dL Normal 2.7-4.8 [facility] Comment on above: Order Comment: Speci men Type: BLOOD SPECIMENOrdering Facility: [facility] Address: [address] [place] [address] Performed By: #### 2 4323-8, 25032-8, 2777-1, 3084-1 ####[facility] LABCLIA [id number] [place] [address] [place] SOCIAL WORKon 05-31-2023 SOCIAL WORK Normal [facility] TYPE + SCREENon 05-31-2023 ABO O Normal [facility] Comment on above: Order Comment: Speci men Type: BLOOD SPECIMENOrdering Facility: [facility] Address: [address] [place] [address] Performed By: #### T SCR ####CC MAIN BLOOD BANKCLIA [id number] [place] [address] [place] HISTORICAL AB SCR STATUS Negative Normal [facility] Comment on above: Order Comment: Speci men Type: BLOOD SPECIMENOrdering Facility: [facility] Address: [address] [place] [address] Performed By: #### T SCR ####CC MA[facility] BLOOD BANKCLIA [id number] [place] [address] [place] Rh Nom (Bld) Positive Normal [facility] Comment on above: Order Comment: Speci men Type: BLOOD SPECIMENOrdering Facility: [facility] Address: [address] [place] [address] Performed By: #### T SCR ####CC MA[facility] BLOOD BANKCLIA [id number] [place] [address] [place] TYPE AND SCREEN EXPIRATION 06/03/2023 23:59 Normal [facility] Comment on above: Order Comment: Speci men Type: BLOOD SPECIMENOrdering Facility: [facility] Address: [address] [address] Performed By: #### T SCR ####CC [facility] BLOOD BANKCLIA [id number] [place] [address] [place] Urate SerPl-mCncon Urate [Mass/Vol] 2.4 mg/dL Low 2.5-6.6 [facility] Comment on above: Order Comment: Speci men Type: BLOOD SPECIMENOrdering Facility: [facility] Address: [address] [address] Performed By: #### 2 4323-8, 85847-0, 2777-1, 3084-1 ####[facility] LABCLIA [id number] [place] [address] [place] Vancomycin [place] SerPl-mCncon 05-31-2023 Vancomycin random [Mass/Vol] 19.2 ug/mL Normal 10.0-20.0 [facility] Comment on above: Order Comment: Speci men Type: BLOOD SPECIMENOrdering Facility: [facility] Address: [address] [place] [address] Result Comment: Refe rence ranges and high/low indicator flags are provided as general guidelines only. The treating physician must determine appropriate target levels/dosing based on the specific clinical situation. Performed By: #### 4 091-5 ####[facility] LABCLIA [id number] [place] [address] [place] XR CHEST 1V PORT POST PICC - NBon 05-31-2023 XR CHEST 1V PORT POST PICC -NB Normal [facility] CBC W Auto Differential pane l (Bld)on 05-30-2023 Anisocytosis Ql (Bld) Present Normal [facility] Comment on above: Order Comment: Speci men Type: BLOOD SPECIMENOrdering Facility: [facility] Address: [address] [address] Performed By: #### 5 7021-8 ####[facility] LABCLIA [id number] [place] [address] [place] Basophils (Bld) [#/Vol] 0.00 10*3/uL Normal <0.11 [facility] Comment on above: Order Comment: Speci men Type: BLOOD SPECIMENOrdering Facility: [facility] Address: [address] [place] [address] Performed By: #### 5 7021-8 ####[facility] LABCLIA [id number] [place] [address] [place] Basophils/100 WBC (Bld) 0.0 % Normal [facility] Comment on above: Order Comment: Speci men Type: BLOOD SPECIMENOrdering Facility: [facility] Address: [address] [place] [address] Performed By: #### 5 7021-8 ####[facility] LABCLIA [id number] [place] [address] [place] BLAST% 2.3 % High <=0.0 [facility] Comment on above: Order Comment: Speci men Type: BLOOD SPECIMENOrdering Facility: [facility] Address: [address] [place] [address] Performed By: #### 5 7021-8 ####[facility] LABCLIA [id number] [place] [address] [place] Differential cell count method Nom (Bld) Manual Normal [facility] Comment on above: Order Comment: Speci men Type: BLOOD SPECIMENOrdering Facility: [facility] Address: [address] [place], [place] [address] Performed By: #### 5 7021-8 ####[facility] LABCLIA [id number] [place] [address] [place] Eosinophils (Bld) [#/Vol] 0.01 10*3/uL Normal <0.46 [facility] Comment on above: Order Comment: Speci men Type: BLOOD SPECIMENOrdering Facility: [facility] Address: [address] [address] Performed By: #### 5 7021-8 ####[facility] LABCLIA [id number] [place] [address] [place] Eosinophils/100 WBC (Bld) 0.6 % Normal [facility] Comment on above: Order Comment: Speci men Type: BLOOD SPECIMENOrdering Facility: [facility] Address: [address] [address] Performed By: #### 5 7021-8 ####[facility] LABIA [id number] [place] [address] [place] Erythrocyte distribution width (RBC) [Ratio] 17.8 % High 11.5-15.0 [facility] Comment on above: Order Comment: Speci men Type: BLOOD SPECIMENOrdering Facility: [facility] Address: [address] Performed By: #### 5 7021-8 ####[facility] LABIA [id number] [place] [address] [place] Hematocrit (Bld) [Volume fraction] 20.9 % Low 36.0-46.0 [facility] Comment on above: Order Comment: Speci men Type: BLOOD SPECIMENOrdering Facility: [facility] Address: [address] [place], [place] [address] Performed By: #### 5 7021-8 ####[facility] LABIA [id number] [place] [address] [place] Hemoglobin (Bld) [Mass/Vol] 7.1 g/dL Low 11.5-15.5 [facility] Comment on above: Order Comment: Speci men Type: BLOOD SPECIMENOrdering Facility: [facility] Address: [address] Performed By: #### 5 7021-8 ####[facility] LABCLIA [id number] [place] [address] [place] Lymphocytes (Bld) [#/Vol] 1.29 10*3/uL Normal 1.00-4.00 [facility] Comment on above: Order Comment: Speci men Type: BLOOD SPECIMENOrdering Facility: [facility] Address: [address] [place] [address] Performed By: #### 5 7021-8 ####[facility] LABIA [id number] [place] [address] [place] Lymphocytes/100 WBC (Bld) 77.2 % Normal [facility] Comment on above: Order Comment: Speci men Type: BLOOD SPECIMENOrdering Facility: [facility] Address: [address] [place] [address] Performed By: #### 5 7021-8 ####[facility] LABIA [id number] [address] [place] MCH (RBC) [Entitic mass] 33.5 pg Normal 26.0-34.0 [facility] Comment on above: Order Comment: Speci men Type: BLOOD SPECIMENOrdering Facility: [facility] Address: [address] [place] [address] Performed By: #### 5 7021-8 ####[facility] LABIA [id number] [address] [place] MCHC (RBC) [Mass/Vol] 34.0 g/dL Normal 30.5-36.0 [facility] Comment on above: Order Comment: Speci men Type: BLOOD SPECIMENOrdering Facility: [facility] Address: [address] [place] [address] Performed By: #### 5 7021-8 ####[facility] LABIA [id number] [place] [address] [place] MCV (RBC) [Entitic vol] 98.6 fL Normal 80.0-100.0 [facility] Comment on above: Order Comment: Speci men Type: BLOOD SPECIMENOrdering Facility: [facility] Address: [address] [place], [place] [address] Performed By: #### 5 7021-8 ####[facility] LABCLIA [id number] [place] [address] [place] Metamyelocytes/10 0 WBC (Bld) 4.0 % Normal [facility] Comment on above: Order Comment: Speci men Type: BLOOD SPECIMENOrdering Facility: [facility] Address: [address] [place], [place] [address] Performed By: #### 5 7021-8 ####[facility] LABCLIA [id number] [place] [address] [place] Monocytes (Bld) [#/Vol] 0.02 10*3/uL Normal <0.87 [facility] Comment on above: Order Comment: Speci men Type: BLOOD SPECIMENOrdering Facility: [facility] Address: [address] [place], [place] [address] Performed By: #### 5 7021-8 ####[facility] LABIA [id number] [place] [address] [place] Monocytes/100 WBC (Bld) 1.1 % Normal [facility] Comment on above: Order Comment: Speci men Type: BLOOD SPECIMENOrdering Facility: [facility] Address: [address] [place], [place] [address] Performed By: #### 5 7021-8 ####[facility] LABIA [id number] [place] [address] [place] Neutrophils (Bld) [#/Vol] 0.25 10*3/uL Low 1.45-7.50 [facility] Comment on above: Order Comment: Speci men Type: BLOOD SPECIMENOrdering Facility: [facility] Address: [address] [place] [address] Performed By: #### 5 7021-8 ####[facility] LABCLIA [id number] [place] [address] [place] Neutrophils/100 WBC (Bld) 14.8 % Normal [facility] Comment on above: Order Comment: Speci men Type: BLOOD SPECIMENOrdering Facility: [facility] Address: [address] Performed By: #### 5 7021-8 ####[facility] LABCLIA [id number] [place] [address] [place] Nucleated RBC (Bld) [#/Vol] 0.03 10*3/uL High <0.01 [facility] Comment on above: Order Comment: Speci men Type: BLOOD SPECIMENOrdering Facility: [facility] Address: [address] Performed By: #### 5 7021-8 ####[facility] LABIA [id number] [place] [address] [place] Nucleated RBC/100 WBC (Bld) [Ratio] 1.7 /100 WBC Normal [facility] Comment on above: Order Comment: Speci men Type: BLOOD SPECIMENOrdering Facility: [facility] Address: [address] Performed By: #### 5 7021-8 ####[facility] LABCLIA [id number] [place] [address] [place] Ovalocytes LM Ql (Bld) Few Normal [facility] Comment on above: Order Comment: Speci men Type: BLOOD SPECIMENOrdering Facility: [facility] Address: [address] Performed By: #### 5 7021-8 ####[facility] LABCLIA [id number] [place] [address] [place] Platelet mean volume (Bld) [Entitic vol] Normal [facility] Comment on above: Order Comment: Speci men Type: BLOOD SPECIMENOrdering Facility: [facility] Address: [address] [place] [address] Result Comment: Unab le to Report. Performed By: #### 5 7021-8 ####[facility] LABCLIA [id number] [place] [address] [place] Platelets (Bld) [#/Vol] 16 10*3/uL Low 150-400 [facility] Comment on above: Order Comment: Speci men Type: BLOOD SPECIMENOrdering Facility: [facility] Address: [address] [place] [address] Result Comment: No c lot detected.Results checked and verified. Performed By: #### 5 7021-8 ####[facility] LABCLIA [id number] [place] [address] [place] Platelets Estimate (Bld) [#/Vol] Decreased Normal [facility] Comment on above: Order Comment: Speci men Type: BLOOD SPECIMENOrdering Facility: [facility] Address: [address] [place] [address] Performed By: #### 5 7021-8 ####[facility] LABCLIA [id number] [place] [address] [place] Polychromasia LM Ql (Bld) Slight Normal [facility] Comment on above: Order Comment: Speci men Type: BLOOD SPECIMENOrdering Facility: [facility] Address: [address] [place] [address] Performed By: #### 5 7021-8 ####[facility] LABCLIA [id number] [place] [address] [place] RBC (Bld) [#/Vol] 2.12 10*6/uL Low 3.90-5.20 [facility] Comment on above: Order Comment: Speci men Type: BLOOD SPECIMENOrdering Facility: [facility] Address: [address] Performed By: #### 5 7021-8 ####[facility] LABCLIA [id number] [place] [address] [place] RBC FRAGMENTS Few Abnormal None Seen [facility] Comment on above: Order Comment: Speci men Type: BLOOD SPECIMENOrdering Facility: [facility] Address: [address] [place], [place] [address] Performed By: #### 5 7021-8 ####[facility] LABCLIA [id number] [place] [address] [place] RED CELL MORPH Reviewed: see result s of individual morphologies Normal [facility] Comment on above: Order Comment: Speci men Type: BLOOD SPECIMENOrdering Facility: [facility] Address: [address] [place] [address] Performed By: #### 5 7021-8 ####[facility] LABCLIA [id number] [place] [address] [place] WBC (Bld) [#/Vol] 1.67 10*3/uL Low 3.70-11.00 [facility] Comment on above: Order Comment: Speci men Type: BLOOD SPECIMENOrdering Facility: [facility] Address: [address] [place], [place] [address] Result Comment: No c lot detected. Performed By: #### 5 7021-8 ####[facility] LABCLIA [id number] [address] [place] WBC Left Shift Ql (Bld) Present Normal [facility] Comment on above: Order Comment: Speci men Type: BLOOD SPECIMENOrdering Facility: [facility] Address: [address] [place], [place] [address] Performed By: #### 5 7021-8 ####[facility] LABCLIA [id number] [place] [address] [place] CNCOon 05-30-2023 CNCO Letter Text Normal [facility] CONSULT PROGon 05-30-2023 CONSULT PROG Normal [facility] Comprehensive metabolic 2000 panelon 05-30-2023 Albumin [Mass/Vol] 3.5 g/dL Low 3.9-4.9 [facility] Comment on above: Order Comment: Speci men Type: BLOOD SPECIMENOrdering Facility: [facility] Address: [address] [place], [place] [address] Performed By: #### 1 9123-9, 3084-1, 47223-3, 7- ####[facility] LABIA [id number] [place] [address] [place] ALP [Catalytic activity/Vol] 54 U/L Normal 34-123 [facility] Comment on above: Order Comment: Speci men Type: BLOOD SPECIMENOrdering Facility: [facility] Address: [address] [place], [place] [address] Performed By: #### 1 9123-9, 3084-1, 57373-2, 2776- ####[facility] LABIA [id number] [place] [address] [place] ALT [Catalytic activity/Vol] 18 U/L Normal 7-38 [facility] Comment on above: Order Comment: Speci men Type: BLOOD SPECIMENOrdering Facility: [facility] Address: [address] [place] [address] Performed By: #### 1 9123-9, 3084-1, 14568-8, 2776- ####[facility] LABIA [id number] [place] [address] [place] Anion gap [Moles/Vol] 9 mmol/L Normal 9-18 [facility] Comment on above: Order Comment: Speci men Type: BLOOD SPECIMENOrdering Facility: [facility] Address: [address] [place], [place] [address] Performed By: #### 1 9123-9, 3084-1, 62331-1, 2776-09 ####[facility] LABCLIA [id number] [place] [address] [place] AST [Catalytic activity/Vol] 17 U/L Normal 13-35 [facility] Comment on above: Order Comment: Speci men Type: BLOOD SPECIMENOrdering Facility: [facility] Address: [address] [place] [address] Performed By: #### 1 9123-9, 3083-, 53013-2, 2776- ####[facility] LABIA [id number] [place] [address] [place] Bilirubin [Mass/Vol] 0.4 mg/dL Normal 0.2-1.3 [facility] Comment on above: Order Comment: Speci men Type: BLOOD SPECIMENOrdering Facility: [facility] Address: [address] [place] [address] Performed By: #### 1 9123-9, 3083-09, 69924-1, 2776-09 ####[facility] [id number] [place] [address] [place] Calcium [Mass/Vol] 8.7 mg/dL Normal 8.5-10.2 [facility] Comment on above: Order Comment: Speci men Type: BLOOD SPECIMENOrdering Facility: [facility] Address: [address] [place] [address] Performed By: #### 1 9123-9, 3083-09, 90930-3, 2776-09 ####[facility] LABIA [id number] [place] [address] [place] Chloride [Moles/Vol] 107 mmol/L High 97-105 [facility] Comment on above: Order Comment: Speci men Type: BLOOD SPECIMENOrdering Facility: [facility] Address: [address] [place] [address] Performed By: #### 1 9123-9, 3084-1, 63629-3, 2776-09 ####[facility] LABCLIA [id number] [place] [address] [place] CO2 [Moles/Vol] 25 mmol/L Normal 22-30 [facility] Comment on above: Order Comment: Speci men Type: BLOOD SPECIMENOrdering Facility: [facility] Address: [address] [place] [address] Performed By: #### 1 9123-9, 3083-, 66899-1, 2776- ####[facility] LABIA [id number] [place] [address] [place] Creatinine [Mass/Vol] 0.93 mg/dL Normal 0.58-0.96 [facility] Comment on above: Order Comment: Speci men Type: BLOOD SPECIMENOrdering Facility: [facility] Address: [address] [place] [address] Performed By: #### 1 9123-9, 3083-, 31001-7, 2776-09 ####[facility] LABIA [id number] [address] [place] Creatinine and Glomerular filtration rate.predicted panel (S/P/Bld) 67 mL/min/1.73m??? Normal >=60 [facility] Comment on above: Order Comment: Speci men Type: BLOOD SPECIMENOrdering Facility: [facility] Address: [address] [place] [address] Result Comment: Berenice mated Glomerular Filtration Rate [...] actual GFR. Performed By: #### 1 9123-9, 4-1, 25231-4, 2776- ####[facility] LABCLIA [id number] [place] [address] [place] Glucose [Mass/Vol] 119 mg/dL High 74-99 [facility] Comment on above: Order Comment: Rochellei men Type: BLOOD SPECIMENOrdering Facility: [facility] Address: [address] [place] [address] Result Comment: The [place] Diabetes Association (ADA) provides guidance for cutoff [...] Standards of Medical Care in Diabetes 2016, [place] Diabetes Association. Diabetes Care. 2016.39(Suppl 1). Performed By: #### 1 9123-9, 3084-1, 28725-0, 2777-1 ####[facility] LABIA [id number] [place] [address] [place] Potassium [Moles/Vol] 3.9 mmol/L Normal 3.7-5.1 [facility] Comment on above: Order Comment: Speci men Type: BLOOD SPECIMENOrdering Facility: [facility] Address: [address] [place] [address] Performed By: #### 1 9123-9, 3084-1, 17773-8, 2777-1 ####[facility] LABIA [id number] [place] [address] [place] Protein [Mass/Vol] 5.7 g/dL Low 6.3-8.0 [facility] Comment on above: Order Comment: Speci men Type: BLOOD SPECIMENOrdering Facility: [facility] Address: [address] [place] [address] Performed By: #### 1 9123-9, 3084-1, 59883-6, 2776- ####[facility] LABCLIA [id number] [place] [id number] [place] Sodium [Moles/Vol] 141 mmol/L Normal 136-144 [facility] Comment on above: Order Comment: Speci men Type: BLOOD SPECIMENOrdering Facility: [facility] Address: [address] [address] Performed By: #### 1 9123-9, 3084-1, 73479-9, 2776- ####[facility] LABCLIA [id number] [place] [address] [place] Urea nitrogen [Mass/Vol] 15 mg/dL Normal 7-21 [facility] Comment on above: Order Comment: Speci men Type: BLOOD SPECIMENOrdering Facility: [facility] Address: [place] [address] Performed By: #### 1 9123-9, 3084-1, 08198-8, 2776- ####[facility] LABCLIA [id number] [place] [id number] [place] MEDICAL EMERon 05-30-2023 MEDICAL RUFUS Normal [facility] Magnesium SerPl-mCncon 05-30 Magnesium [Mass/Vol] 2.1 mg/dL Normal 1.7-2.3 [facility] Comment on above: Order Comment: Speci men Type: BLOOD SPECIMENOrdering Facility: [facility] Address: [address] [place] [address] Performed By: #### 1 9123-9, 3084-1, 32288-0, 277- ####[facility] LABCLIA [id number] [address] [address] [place] NUTRITIONon 05-30-2023 NUTRITION Normal [facility] PT EDon 05-30-2023 PT ED Normal [facility] Phosphate SerPl-mCncon 05-30 Phosphate [Mass/Vol] 4.0 mg/dL Normal 2.7-4.8 [facility] Comment on above: Order Comment: Speci men Type: BLOOD SPECIMENOrdering Facility: [facility] Address: [address] [place] [address] Performed By: #### 1 9123-9, 3084-1, 16492-7, 2777-1 ####[facility] LABCLIA [id number] [address] [place] SOCIAL WORKon 05-30-2023 SOCIAL WORK Normal [facility] SOCIAL WORK Normal [facility] Urate [facility] 3 Urate [Mass/Vol] 2.2 mg/dL Low 2.5-6.6 [facility] Comment on above: Order Comment: Speci men Type: BLOOD SPECIMENOrdering Facility: [facility] Address: [address] [place] [address] Performed By: #### 1 9123-9, 3084-1, 48867-3, 2777-1 ####[facility] LABIA [id number] [place] [address] [place] BMT REC INIT W/Uon 3 ALLOGEN RESULTS TO FOLLOW See Allogen report to follow Normal [facility] Comment on above: Order Comment: Speci men Type: BLOOD SPECIMENOrdering Facility: [facility] Address: [address] [place] [address] Performed By: #### B MTRIW ####[facility] LABIA [id number] [address] [place] BRIEF OP NOTon 05-29-2023 BRIEF OP NOT Normal [facility] CASE MGT INIT ASSESon 2022 CASE MGT INIT ASSES Normal [facility] CBC W Auto Differential pane l (Bld)on 05-29-2023 Anisocytosis Ql (Bld) Present Normal [facility] Comment on above: Order Comment: Speci men Type: BLOOD SPECIMENOrdering Facility: [facility] Address: [address] [address] Performed By: #### 5 7021-8 ####[facility] LABCLIA [id number] [address] [place] Basophils (Bld) [#/Vol] 0.00 10*3/uL Normal <0.11 [facility] Comment on above: Order Comment: Speci men Type: BLOOD SPECIMENOrdering Facility: [facility] Address: [address] Performed By: #### 5 7021-8 ####[facility] LABCLIA [id number] [address] [place] Basophils/100 WBC (Bld) 0.0 % Normal [facility] Comment on above: Order Comment: Speci men Type: BLOOD SPECIMENOrdering Facility: [facility] Address: [address] Performed By: #### 5 7021-8 ####[facility] LABCLIA [id number] [address] [place] BLAST% 4.9 % High <=0.0 [facility] Comment on above: Order Comment: Speci men Type: BLOOD SPECIMENOrdering Facility: [facility] Address: [address] Performed By: #### 5 7021-8 ####[facility] LABCLIA [id number] [place] [address] [place] Dacrocytes LM Ql (Bld) Few Normal [facility] Comment on above: Order Comment: Speci men Type: BLOOD SPECIMENOrdering Facility: [facility] Address: [address] Performed By: #### 5 7021-8 ####[facility] LABCLIA [id number] [place] [address] [place] Differential cell count method Nom (Bld) Manual Normal [facility] Comment on above: Order Comment: Speci men Type: BLOOD SPECIMENOrdering Facility: [facility] Address: [address] [place] [address] Performed By: #### 5 7021-8 ####[facility] LABCLIA [id number] [place] [address] [place] Eosinophils (Bld) [#/Vol] 0.03 10*3/uL Normal <0.46 [facility] Comment on above: Order Comment: Speci men Type: BLOOD SPECIMENOrdering Facility: [facility] Address: [address] [place] [address] Performed By: #### 5 7021-8 ####[facility] LABCLIA [id number] [place] [address] [place] Eosinophils/100 WBC (Bld) 2.2 % Normal [facility] Comment on above: Order Comment: Speci men Type: BLOOD SPECIMENOrdering Facility: [facility] Address: [address] [place] [address] Performed By: #### 5 7021-8 ####[facility] LABCLIA [id number] [place] [address] [place] Erythrocyte distribution width (RBC) [Ratio] 18.3 % High 11.5-15.0 [facility] Comment on above: Order Comment: Speci men Type: BLOOD SPECIMENOrdering Facility: [facility] Address: [address] [place], [place] [address] Performed By: #### 5 7021-8 ####[facility] LABCLIA [id number] [place] [address] [place] Hematocrit (Bld) [Volume fraction] 18.6 % Low 36.0-46.0 [facility] Comment on above: Order Comment: Speci men Type: BLOOD SPECIMENOrdering Facility: [facility] Address: [address] Performed By: #### 5 7021-8 ####[facility] LABCLIA [id number] [place] [address] [place] Hemoglobin (Bld) [Mass/Vol] 6.6 g/dL Low 11.5-15.5 [facility] Comment on above: Order Comment: Speci men Type: BLOOD SPECIMENOrdering Facility: [facility] Address: [address] Performed By: #### 5 7021-8 ####[facility] LABCLIA [id number] [place] [address] [place] Lymphocytes (Bld) [#/Vol] 1.08 10*3/uL Normal 1.00-4.00 [facility] Comment on above: Order Comment: Speci men Type: BLOOD SPECIMENOrdering Facility: [facility] Address: [address] [place], [place] [address] Performed By: #### 5 7021-8 ####[facility] LABCLIA [id number] [place] [address] [place] Lymphocytes/100 WBC (Bld) 75.2 % Normal [facility] Comment on above: Order Comment: Speci men Type: BLOOD SPECIMENOrdering Facility: [facility] Address: [address] [place] [address] Performed By: #### 5 7021-8 ####[facility] LABCLIA [id number] [place] [address] [place] MCH (RBC) [Entitic mass] 35.1 pg High 26.0-34.0 [facility] Comment on above: Order Comment: Speci men Type: BLOOD SPECIMENOrdering Facility: [facility] Address: [address] Performed By: #### 5 7021-8 ####[facility] LABCLIA [id number] [place] [address] [place] MCHC (RBC) [Mass/Vol] 35.5 g/dL Normal 30.5-36.0 [facility] Comment on above: Order Comment: Speci men Type: BLOOD SPECIMENOrdering Facility: [facility] Address: [address] [place] [address] Performed By: #### 5 7021-8 ####[facility] LABCLIA [id number] [place] [address] [place] MCV (RBC) [Entitic vol] 98.9 fL Normal 80.0-100.0 [facility] Comment on above: Order Comment: Speci men Type: BLOOD SPECIMENOrdering Facility: [facility] Address: [address] [place] [address] Performed By: #### 5 7021-8 ####[facility] LABIA [id number] [place] [address] [place] Monocytes (Bld) [#/Vol] 0.01 10*3/uL Normal <0.87 [facility] Comment on above: Order Comment: Speci men Type: BLOOD SPECIMENOrdering Facility: [facility] Address: [address] [place] [address] Performed By: #### 5 7021-8 ####[facility] LABCLIA [id number] [address] [place] Monocytes/100 WBC (Bld) 0.4 % Normal [facility] Comment on above: Order Comment: Speci men Type: BLOOD SPECIMENOrdering Facility: [facility] Address: [address] [place], [place] [address] Performed By: #### 5 7021-8 ####[facility] LABCLIA [id number] [place] [address] [place] MYELO% 0.4 % Normal [facility] Comment on above: Order Comment: Speci men Type: BLOOD SPECIMENOrdering Facility: [facility] Address: [address] [address] Performed By: #### 5 7021-8 ####[facility] LABCLIA [id number] [place] [address] [place] Neutrophils (Bld) [#/Vol] 0.24 10*3/uL Low 1.45-7.50 [facility] Comment on above: Order Comment: Speci men Type: BLOOD SPECIMENOrdering Facility: [facility] Address: [address] [address] Performed By: #### 5 7021-8 ####[facility] LABCLIA [id number] [place] [address] [place] Neutrophils/100 WBC (Bld) 16.9 % Normal [facility] Comment on above: Order Comment: Speci men Type: BLOOD SPECIMENOrdering Facility: [facility] Address: [address] Performed By: #### 5 7021-8 ####[facility] LABCLIA [id number] [place] [address] [place] Nucleated RBC (Bld) [#/Vol] 0.02 10*3/uL High <0.01 [facility] Comment on above: Order Comment: Speci men Type: BLOOD SPECIMENOrdering Facility: [facility] Address: [address] Performed By: #### 5 7021-8 ####[facility] LABCLIA [id number] [place] [address] [place] Nucleated RBC/100 WBC (Bld) [Ratio] 1.3 /100 WBC Normal [facility] Comment on above: Order Comment: Speci men Type: BLOOD SPECIMENOrdering Facility: [facility] Address: [address] [place], [place] [address] Performed By: #### 5 7021-8 ####[facility] LABCLIA [id number] [place] [address] [place] Ovalocytes LM Ql (Bld) Few Normal [facility] Comment on above: Order Comment: Speci men Type: BLOOD SPECIMENOrdering Facility: [facility] Address: [address] [place] [address] Performed By: #### 5 7021-8 ####[facility] LABCLIA [id number] [place] [address] [place] Platelet mean volume (Bld) [Entitic vol] Normal [facility] Comment on above: Order Comment: Speci men Type: BLOOD SPECIMENOrdering Facility: [facility] Address: [address] [place] [address] Result Comment: Unab le to Report. Performed By: #### 5 7021-8 ####[facility] LABIA [id number] [place] [address] [place] Platelets (Bld) [#/Vol] 14 10*3/uL Low 150-400 [facility] Comment on above: Order Comment: Speci men Type: BLOOD SPECIMENOrdering Facility: [facility] Address: [address] [place] [address] Result Comment: Resu lts checked and verified.No clot detected. Performed By: #### 5 7021-8 ####[facility] LABCLIA [id number] [place] [address] [place] Platelets Estimate (Bld) [#/Vol] Decreased Normal [facility] Comment on above: Order Comment: Speci men Type: BLOOD SPECIMENOrdering Facility: [facility] Address: [address] [place] [address] Performed By: #### 5 7021-8 ####[facility] LABCLIA [id number] [place] [address] [place] Polychromasia LM Ql (Bld) Slight Normal [facility] Comment on above: Order Comment: Speci men Type: BLOOD SPECIMENOrdering Facility: [facility] Address: [address] Performed By: #### 5 7021-8 ####[facility] LABCLIA [id number] [place] [address] [place] RBC (Bld) [#/Vol] 1.88 10*6/uL Low 3.90-5.20 [facility] Comment on above: Order Comment: Speci men Type: BLOOD SPECIMENOrdering Facility: [facility] Address: [address] [place], [place] [address] Performed By: #### 5 7021-8 ####[facility] LABCLIA [id number] [place] [address] [place] RBC FRAGMENTS Few Abnormal None Seen [facility] Comment on above: Order Comment: Speci men Type: BLOOD SPECIMENOrdering Facility: [facility] Address: [address] [place] [address] Performed By: #### 5 7021-8 ####[facility] LABCLIA [id number] [address] [place] [facility] RED CELL MORPH Reviewed: see result s of individual morphologies Normal [facility] Comment on above: Order Comment: Speci men Type: BLOOD SPECIMENOrdering Facility: [facility] Address: [address] Performed By: #### 5 7021-8 ####[facility] LABCLIA [id number] [place] [address] [place] WBC (Bld) [#/Vol] 1.43 10*3/uL Low 3.70-11.00 [facility] Comment on above: Order Comment: Speci men Type: BLOOD SPECIMENOrdering Facility: [facility] Address: [address] [place], [place] [address] Result Comment: No c lot detected. Performed By: #### 5 7021-8 ####[facility] LABCLIA [id number] [place] [address] [place] WBC Left Shift Ql (Bld) Present Normal [facility] Comment on above: Order Comment: Speci men Type: BLOOD SPECIMENOrdering Facility: [facility] Address: [address] [place] [address] Performed By: #### 5 7021-8 ####[facility] LABCLIA [id number] [place] [address] [place] CMV IgG Qnon 05-29-2023 CMV IGG QUAL Negative Normal Negative [facility] Comment on above: Order Comment: Speci men Type: BLOOD SPECIMENOrdering Facility: [facility] Address: [address] [place] [address] Result Comment: No s erological evidence of past exposure to Cytomegalovirus. Cannot exclude recent infection if the specimen collected within 4-6 weeks after infection. Performed By: #### 7 852-7 ####[facility] LABCLIA [id number] [place] [address] [place] CMV IgG SerPl-aCncon 023 CMV IgG Qn 0.24 U/mL Normal [facility] Comment on above: Order Comment: Speci men Type: BLOOD SPECIMENOrdering Facility: [facility] Address: [address] [place] [address] Result Comment: The magnitude of the measured result is not indicative of the amount of antibody present.U/mL values are interpreted as follows:Negative <0.6Equivocal 0.6 to <0.70Positive >=0.70 Performed By: #### 7 852-7 ####[facility] LABCLIA [id number] [place] [address] [place] CONSULTon 05-29-2023 CONSULT Normal [facility] Comprehensive metabolic 2000 panelon 05-29-2023 Albumin [Mass/Vol] 3.5 g/dL Low 3.9-4.9 [facility] Comment on above: Order Comment: Speci men Type: BLOOD SPECIMENOrdering Facility: [facility] Address: [address] Performed By: #### 2 4323-8 ####[facility] LABCLIA [id number] [place] [address] [place] ALP [Catalytic activity/Vol] 50 U/L Normal 34-123 [facility] Comment on above: Order Comment: Speci men Type: BLOOD SPECIMENOrdering Facility: [facility] Address: [address] Performed By: #### 2 4323-8 ####[facility] LABCLIA [id number] [place] [address] [place] ALT [Catalytic activity/Vol] 11 U/L Normal 7-38 [facility] Comment on above: Order Comment: Speci men Type: BLOOD SPECIMENOrdering Facility: [facility] Address: [address] Performed By: #### 2 4323-8 ####[facility] LABCLIA [id number] [place] [address] [place] Anion gap [Moles/Vol] 10 mmol/L Normal 9-18 [facility] Comment on above: Order Comment: Speci men Type: BLOOD SPECIMENOrdering Facility: [facility] Address: [address] Performed By: #### 2 4323-8 ####[facility] LABCLIA [id number] [place] [address] [place] AST [Catalytic activity/Vol] 12 U/L Low 13-35 [facility] Comment on above: Order Comment: Speci men Type: BLOOD SPECIMENOrdering Facility: [facility] Address: [address] Performed By: #### 2 4323-8 ####[facility] LABCLIA [id number] [place] [address] [place] Bilirubin [Mass/Vol] 0.4 mg/dL Normal 0.2-1.3 [facility] Comment on above: Order Comment: Speci men Type: BLOOD SPECIMENOrdering Facility: [facility] Address: [address] [place] [address] Performed By: #### 2 4323-8 ####[facility] LABCLIA [id number] [place] [address] [place] Calcium [Mass/Vol] 8.5 mg/dL Normal 8.5-10.2 [facility] Comment on above: Order Comment: Speci men Type: BLOOD SPECIMENOrdering Facility: [facility] Address: [address] [place] [address] Performed By: #### 2 4323-8 ####[facility] LABCLIA [id number] [place] [address] [place] Chloride [Moles/Vol] 107 mmol/L High 97-105 [facility] Comment on above: Order Comment: Speci men Type: BLOOD SPECIMENOrdering Facility: [facility] Address: [address] [place] [address] Performed By: #### 2 4323-8 ####[facility] LABCLIA [id number] [place] [address] [place] CO2 [Moles/Vol] 25 mmol/L Normal 22-30 [facility] Comment on above: Order Comment: Speci men Type: BLOOD SPECIMENOrdering Facility: [facility] Address: [address] [place] [address] Performed By: #### 2 4323-8 ####[facility] LABCLIA [id number] [place] [address] [place] Creatinine [Mass/Vol] 0.92 mg/dL Normal 0.58-0.96 [facility] Comment on above: Order Comment: Speci men Type: BLOOD SPECIMENOrdering Facility: [facility] Address: [address] [address] Performed By: #### 2 4323-8 ####[facility] LABCLIA [id number] [place] [address] [place] Creatinine and Glomerular filtration rate.predicted panel (S/P/Bld) 68 mL/min/1.73m??? Normal >=60 [facility] Comment on above: Order Comment: Elvia escobar Type: BLOOD SPECIMENOrdering Facility: [facility] Address: [address] [address] [address] Result Comment: Berenice mated Glomerular Filtration Rate [...] actual GFR. Performed By: #### 2 4323-8 ####[facility] LABCLIA [id number] [place] [address] [place] Glucose [Mass/Vol] 110 mg/dL High 74-99 [facility] Comment on above: Order Comment: Elvia escobar Type: BLOOD SPECIMENOrdering Facility: [facility] Address: [address] [place] [address] Result Comment: The [place] Diabetes Association (ADA) provides guidance for cutoff [...] Standards of Medical Care in Diabetes 2016, [place] Diabetes Association. Diabetes Care. 2016.39(Suppl 1). Performed By: #### 2 4323-8 ####[facility] LABCLIA [id number] [place] [address] [place] Potassium [Moles/Vol] 3.9 mmol/L Normal 3.7-5.1 [facility] Comment on above: Order Comment: Speci men Type: BLOOD SPECIMENOrdering Facility: [facility] Address: [address] [place], [place] [address] Performed By: #### 2 4323-8 ####[facility] LABCLIA [id number] [place] [address] [place] Protein [Mass/Vol] 5.6 g/dL Low 6.3-8.0 [facility] Comment on above: Order Comment: Speci men Type: BLOOD SPECIMENOrdering Facility: [facility] Address: [address] [place] [address] Performed By: #### 2 4323-8 ####[facility] LABIA [id number] [place] [address] [place] Sodium [Moles/Vol] 142 mmol/L Normal 136-144 [facility] Comment on above: Order Comment: Speci men Type: BLOOD SPECIMENOrdering Facility: [facility] Address: [address] [place], [place] [address] Performed By: #### 2 4323-8 ####[facility] LABIA [id number] [place] [address] [place] Urea nitrogen [Mass/Vol] 16 mg/dL Normal 7-21 [facility] Comment on above: Order Comment: Speci men Type: BLOOD SPECIMENOrdering Facility: [facility] Address: [address] [place], [place] [address] Performed By: #### 2 4323-8 ####[facility] LABIA [id number] [place] [address] [place] IR CENTRAL LINE REMOVALon IR CENTRAL LINE REMOVAL Normal [facility] MEDICAL EMERon 05-29-2023 MEDICAL RUFUS Normal [facility] SOCIAL WORKon 05-29-2023 SOCIAL WORK Normal [facility] SURGICAL PATHOLOGYon 023 CASE REPORT Normal [facility] Comment on above: Order Comment: Speci men Type: TISSUE SPECIMENOrdering Facility: [facility] Address: [address] [place], [place] [address] Result Comment: Surg ical Pathology Report Case: [id number] Provider: Brandy Castro, Collected: 05/29/2023 03:21 PM [employer].CNPOrdering Location: [place] [address] Received: 05/29/2023 10:53 PMPathologist: Rosalia Gaytan MDSpecimen: HARDWARE Performed By: #### S ####[facility] LABCLIA [id number] [place] [address] [place] CLINICAL HISTORY infected port Normal [facility] Comment on above: Order Comment: Speci men Type: TISSUE SPECIMENOrdering Facility: [facility] Address: [address] [place] [address] Performed By: #### S ####[facility] LABCLIA [id number] [address] [place] FINAL DIAGNOSIS Normal [facility] Comment on above: Order Comment: Speci men Type: TISSUE SPECIMENOrdering Facility: [facility] Address: [address] [place] [address] Result Comment: A. S ite not specified, port removal:-Unremarkable port (gross diagnosis only).ME/JXM 05/30/2023 Performed By: #### S ####[facility] LABCLIA [id number] [place] [address] [place] FINAL PERFORMING LAB Normal [facility] Comment on above: Order Comment: Speci men Type: TISSUE SPECIMENOrdering Facility: [facility] Address: [address] [address] Result Comment: Diag nostic interpretation performed at [facility] [address] CLIA# [id number] Director: Boris Wood M.D. Performed By: #### S ####[facility] LABCLIA [id number] [address] [place] GROSS DESCRIPTION A. HARDWARE Normal [facility] Comment on above: Order Comment: Speci men Type: TISSUE SPECIMENOrdering Facility: [facility] Address: [address] [address] Result Comment: Rece ived fresh labeled hardware [...] for gross examination only.Gross examination performed at [facility] [address] [id number] 05/30/23 10:43 AM Performed By: #### S ####[facility] LABCLIA [id number] [address] [place] TYPE + SCREENon 05-29-2023 ABO O Normal [facility] Comment on above: Order Comment: Speci men Type: BLOOD SPECIMENOrdering Facility: [facility] Address: [address] [address] Performed By: #### T SCR ####[facility] BLOOD BANKIA [id number] [place] [address] [place] HISTORICAL AB SCR STATUS Negative Normal [facility] Comment on above: Order Comment: Speci men Type: BLOOD SPECIMENOrdering Facility: [facility] Address: [address] [address] Performed By: #### T SCR ####CC [facility] BLOOD BANKCLIA [id number] [address] Rh Nom (Bld) Positive Normal [facility] Comment on above: Order Comment: Speci men Type: BLOOD SPECIMENOrdering Facility: [facility] Address: [address] [place] [address] Performed By: #### T SCR ####CC [facility] BLOOD BANKCLIA [id number] [address] TYPE AND SCREEN EXPIRATION 06/01/2023 23:59 Normal [facility] Comment on above: Order Comment: Speci men Type: BLOOD SPECIMENOrdering Facility: [facility] Address: [address] [place] [address] Performed By: #### T SCR ####[facility] BLOOD BANKCLIA [id number] [address] [place] Bacteria Bld Culton 05-28-20 23 Bacteria identified Cx Nom (Bld) CULTURE, BLOOD: No growth 5 days Normal [facility] Comment on above: Performed By: #### 6 00-7 ####[facility] LABCLIA [id number] [address] Bacteria identified Cx Nom (Bld) CULTURE, BLOOD: No growth 5 days Normal [facility] Comment on above: Performed By: #### 6 00-7 ####[facility] LABCLIA [id number] [address] [place] CBC W Auto Differential pane l (Bld)on 05-28-2023 Anisocytosis Ql (Bld) Present Normal [facility] Comment on above: Order Comment: Speci men Type: BLOOD SPECIMENOrdering Facility: [facility] Address: [address] [place] [address] Performed By: #### 5 7021-8, [id number] ####[facility] LABCLIA [id number] [place] [address] [place] Basophils (Bld) [#/Vol] 0.00 10*3/uL Normal <0.11 [facility] Comment on above: Order Comment: Speci men Type: BLOOD SPECIMENOrdering Facility: [facility] Address: [address] [place] [address] Performed By: #### 5 7021-8, [id number] ####[facility] LABCLIA [id number] [place] [address] [place] Basophils/100 WBC (Bld) 0.0 % Normal [facility] Comment on above: Order Comment: Speci men Type: BLOOD SPECIMENOrdering Facility: [facility] Address: [address] [place] [address] Performed By: #### 5 7021-8, [id number] ####[facility] LABCLIA [id number] [place] [address] [place] BLAST% 7.0 % High <=0.0 [facility] Comment on above: Order Comment: Speci men Type: BLOOD SPECIMENOrdering Facility: [facility] Address: [address] [place] [address] Performed By: #### 5 7021-8, [id number] ####[facility] LABCLIA [id number] [place] [address] [place] Differential cell count method Nom (Bld) Manual Normal [facility] Comment on above: Order Comment: Speci men Type: BLOOD SPECIMENOrdering Facility: [facility] Address: [address] [place] [address] Performed By: #### 5 7021-8, [id number] ####[facility] LABCLIA [id number] [place] [address] [place] Eosinophils (Bld) [#/Vol] 0.03 10*3/uL Normal <0.46 [facility] Comment on above: Order Comment: Speci men Type: BLOOD SPECIMENOrdering Facility: [facility] Address: [address] [address] Performed By: #### 5 7021-8, [id number] ####[facility] LABCLIA [id number] [place] [address] [place] Eosinophils/100 WBC (Bld) 2.0 % Normal [facility] Comment on above: Order Comment: Speci men Type: BLOOD SPECIMENOrdering Facility: [facility] Address: [address] [address] Performed By: #### 5 7021-8, [id number] ####[facility] LABCLIA [id number] [place] [address] [place] Erythrocyte distribution width (RBC) [Ratio] 18.3 % High 11.5-15.0 [facility] Comment on above: Order Comment: Speci men Type: BLOOD SPECIMENOrdering Facility: [facility] Address: [address] [place] [address] Performed By: #### 5 7021-8, [id number] ####[facility] LABCLIA [id number] [place] [address] [place] Hematocrit (Bld) [Volume fraction] 21.7 % Low 36.0-46.0 [facility] Comment on above: Order Comment: Speci men Type: BLOOD SPECIMENOrdering Facility: [facility] Address: [address] Performed By: #### 5 7021-8, [id number] ####[facility] LABCLIA [id number] [place] [address] [place] Hemoglobin (Bld) [Mass/Vol] 7.5 g/dL Low 11.5-15.5 [facility] Comment on above: Order Comment: Speci men Type: BLOOD SPECIMENOrdering Facility: [facility] Address: [address] [place], [place] [address] Performed By: #### 5 7021-8, [id number] ####[facility] LABCLIA [id number] [place] [address] [place] HYPOGRANULATED PMNS Present Normal [facility] Comment on above: Order Comment: Speci men Type: BLOOD SPECIMENOrdering Facility: [facility] Address: [address] [place] [address] Performed By: #### 5 7021-8, [id number] ####[facility] LABCLIA [id number] [place] [address] [place] Lymphocytes (Bld) [#/Vol] 0.94 10*3/uL Low 1.00-4.00 [facility] Comment on above: Order Comment: Speci men Type: BLOOD SPECIMENOrdering Facility: [facility] Address: [address] Performed By: #### 5 7021-8, [id number] ####[facility] LABIA [id number] [place] [address] [place] Lymphocytes/100 WBC (Bld) 62.0 % Normal [facility] Comment on above: Order Comment: Speci men Type: BLOOD SPECIMENOrdering Facility: [facility] Address: [address] [place] [address] Performed By: #### 5 7021-8, [id number] ####[facility] LABCLIA [id number] [place] [address] [place] MCH (RBC) [Entitic mass] 34.9 pg High 26.0-34.0 [facility] Comment on above: Order Comment: Speci men Type: BLOOD SPECIMENOrdering Facility: [facility] Address: [address] Performed By: #### 5 7021-8, [id number] ####[facility] LABCLIA [id number] [place] MCHC (RBC) [Mass/Vol] 34.6 g/dL Normal 30.5-36.0 [facility] Comment on above: Order Comment: Speci men Type: BLOOD SPECIMENOrdering Facility: [facility] Address: [address] [place] [address] Performed By: #### 5 7021-8, [id number] ####[facility] LABCLIA [id number] [address] [place] MCV (RBC) [Entitic vol] 100.9 fL High 80.0-100.0 [facility] Comment on above: Order Comment: Speci men Type: BLOOD SPECIMENOrdering Facility: [facility] Address: [address] [place] [address] Performed By: #### 5 7021-8, [id number] ####[facility] LABCLIA [id number] [place] [address] [place] Monocytes (Bld) [#/Vol] 0.03 10*3/uL Normal <0.87 [facility] Comment on above: Order Comment: Speci men Type: BLOOD SPECIMENOrdering Facility: [facility] Address: [address] [place], [place] [address] Performed By: #### 5 7021-8, [id number] ####[facility] LABCLIA [id number] [place] [address] [place] Monocytes/100 WBC (Bld) 2.0 % Normal [facility] Comment on above: Order Comment: Speci men Type: BLOOD SPECIMENOrdering Facility: [facility] Address: [address] [place], [place] [address] Performed By: #### 5 7021-8, [id number] ####[facility] LABCLIA [id number] [place] [address] [place] Neutrophils (Bld) [#/Vol] 0.41 10*3/uL Low 1.45-7.50 [facility] Comment on above: Order Comment: Speci men Type: BLOOD SPECIMENOrdering Facility: [facility] Address: [address] [address] Performed By: #### 5 7021-8, [id number] ####[facility] LABCLIA [id number] [place] [address] [place] Neutrophils/100 WBC (Bld) 27.0 % Normal [facility] Comment on above: Order Comment: Speci men Type: BLOOD SPECIMENOrdering Facility: [facility] Address: [address] [address] Performed By: #### 5 7021-8, [id number] ####[facility] LABCLIA [id number] [place] [address] [place] Nucleated RBC (Bld) [#/Vol] 0.02 10*3/uL High <0.01 [facility] Comment on above: Order Comment: Speci men Type: BLOOD SPECIMENOrdering Facility: [facility] Address: [address] [place] [address] Performed By: #### 5 7021-8, [id number] ####[facility] LABCLIA [id number] [place] [address] [place] Nucleated RBC/100 WBC (Bld) [Ratio] 1.0 /100 WBC Normal [facility] Comment on above: Order Comment: Speci men Type: BLOOD SPECIMENOrdering Facility: [facility] Address: [address] Performed By: #### 5 7021-8, [id number] ####[facility] LABCLIA [id number] [place] [address] [place] Ovalocytes LM Ql (Bld) Few Normal [facility] Comment on above: Order Comment: Speci men Type: BLOOD SPECIMENOrdering Facility: [facility] Address: [address] [address] Performed By: #### 5 7021-8, [id number] ####[facility] LABCLIA [id number] [place] [address] [place] Platelet mean volume (Bld) [Entitic vol] Normal [facility] Comment on above: Order Comment: Speci men Type: BLOOD SPECIMENOrdering Facility: [facility] Address: [address] [place], [place] [address] Result Comment: Unab le to Report. Performed By: #### 5 7021-8, [id number] ####[facility] LABCLIA [id number] [place] [address] [place] Platelets (Bld) [#/Vol] 17 10*3/uL Low 150-400 [facility] Comment on above: Order Comment: Speci men Type: BLOOD SPECIMENOrdering Facility: [facility] Address: [address] [place] [address] Result Comment: Resu lts checked and verified.No clot detected. Performed By: #### 5 7021-8, [id number] ####[facility] LABCLIA [id number] [place] [address] [place] Platelets Estimate (Bld) [#/Vol] Decreased Normal [facility] Comment on above: Order Comment: Speci men Type: BLOOD SPECIMENOrdering Facility: [facility] Address: [address] [place] [address] Performed By: #### 5 7021-8, [id number] ####[facility] LABCLIA [id number] [place] [address] [place] Polychromasia LM Ql (Bld) Slight Normal [facility] Comment on above: Order Comment: Speci men Type: BLOOD SPECIMENOrdering Facility: [facility] Address: [address] Performed By: #### 5 7021-8, [id number] ####[facility] LABCLIA [id number] [place] [address] [place] RBC (Bld) [#/Vol] 2.15 10*6/uL Low 3.90-5.20 [facility] Comment on above: Order Comment: Speci men Type: BLOOD SPECIMENOrdering Facility: [facility] Address: [address] [place] [address] Performed By: #### 5 7021-8, [id number] ####[facility] LABCLIA [id number] [place] [address] [place] RBC FRAGMENTS Few Abnormal None Seen [facility] Comment on above: Order Comment: Speci men Type: BLOOD SPECIMENOrdering Facility: [facility] Address: [address] [place] [address] Performed By: #### 5 7021-8, [id number] ####[facility] LABCLIA [id number] [place] [address] [place] RED CELL MORPH Reviewed: see result s of individual morphologies Normal [facility] Comment on above: Order Comment: Speci men Type: BLOOD SPECIMENOrdering Facility: [facility] Address: [address] [place] [address] Performed By: #### 5 7021-8, [id number] ####[facility] LABCLIA [id number] [place] [address] [place] Target cells LM Ql (Bld) Few Normal [facility] Comment on above: Order Comment: Speci men Type: BLOOD SPECIMENOrdering Facility: [facility] Address: [address] [place] [address] Performed By: #### 5 7021-8, [id number] ####[facility] LABCLIA [id number] [place] [address] [place] WBC (Bld) [#/Vol] 1.52 10*3/uL Low 3.70-11.00 [facility] Comment on above: Order Comment: Speci men Type: BLOOD SPECIMENOrdering Facility: [facility] Address: [address] [place] [address] Performed By: #### 5 7021-8, [id number] ####[facility] LABCLIA [id number] [place] [address] [place] CNNURSEon 05-28-2023 CNNURSE Normal [facility] CNOVSPon 05-28-2023 CNOVSP Normal [facility] CONSULT PROGon 05-28-2023 CONSULT PROG Normal [facility] Comprehensive metabolic 2000 panelon 05-28-2023 Albumin [Mass/Vol] 4.1 g/dL Normal 3.9-4.9 [facility] Comment on above: Order Comment: Speci men Type: BLOOD SPECIMENOrdering Facility: [facility] Address: [address] [place] [address] Performed By: #### 2 4323-8 ####[facility] LABCLIA [id number] [place] [address] [place] ALP [Catalytic activity/Vol] 60 U/L Normal 34-123 [facility] Comment on above: Order Comment: Speci men Type: BLOOD SPECIMENOrdering Facility: [facility] Address: [address] [place] [address] Performed By: #### 2 4323-8 ####[facility] LABCLIA [id number] [place] [address] [place] ALT [Catalytic activity/Vol] 12 U/L Normal 7-38 [facility] Comment on above: Order Comment: Speci men Type: BLOOD SPECIMENOrdering Facility: [facility] Address: [address] [place], [place] [address] Performed By: #### 2 4323-8 ####[facility] LABCLIA [id number] [place] [address] [place] Anion gap [Moles/Vol] 10 mmol/L Normal 9-18 [facility] Comment on above: Order Comment: Speci men Type: BLOOD SPECIMENOrdering Facility: [facility] Address: [address] Performed By: #### 2 4323-8 ####[facility] LABCLIA [id number] [place] [address] [place] AST [Catalytic activity/Vol] 12 U/L Low 13-35 [facility] Comment on above: Order Comment: Speci men Type: BLOOD SPECIMENOrdering Facility: [facility] Address: [address] Performed By: #### 2 4323-8 ####[facility] LABIA [id number] [place] [address] [place] Bilirubin [Mass/Vol] 0.4 mg/dL Normal 0.2-1.3 [facility] Comment on above: Order Comment: Speci men Type: BLOOD SPECIMENOrdering Facility: [facility] Address: [address] Performed By: #### 2 4323-8 ####[facility] LABIA [id number] [place] [address] [place] Calcium [Mass/Vol] 9.0 mg/dL Normal 8.5-10.2 [facility] Comment on above: Order Comment: Speci men Type: BLOOD SPECIMENOrdering Facility: [facility] Address: [address] Performed By: #### 2 4323-8 ####[facility] LABCLIA [id number] [place] [address] [place] Chloride [Moles/Vol] 104 mmol/L Normal 97-105 [facility] Comment on above: Order Comment: Speci men Type: BLOOD SPECIMENOrdering Facility: [facility] Address: [address] Performed By: #### 2 4323-8 ####[facility] LABCLIA [id number] [place] [address] [place] CO2 [Moles/Vol] 24 mmol/L Normal 22-30 [facility] Comment on above: Order Comment: Speci men Type: BLOOD SPECIMENOrdering Facility: [facility] Address: [address] [place] [address] Performed By: #### 2 4323-8 ####[facility] LABCLIA [id number] [address] [place] Creatinine [Mass/Vol] 0.84 mg/dL Normal 0.58-0.96 [facility] Comment on above: Order Comment: Speci men Type: BLOOD SPECIMENOrdering Facility: [facility] Address: [address] [place] [address] Performed By: #### 2 4323-8 ####[facility] LABIA [id number] [address] STATES OF [facility] Creatinine and Glomerular filtration rate.predicted panel (S/P/Bld) 75 mL/min/1.73m??? Normal >=60 [facility] Comment on above: Order Comment: Speci men Type: BLOOD SPECIMENOrdering Facility: [facility] Address: [address] [place] [address] Result Comment: Berenice mated Glomerular Filtration Rate [...] actual GFR. Performed By: #### 2 4323-8 ####[facility] LABCLIA [id number] [place] [address] [place] Glucose [Mass/Vol] 130 mg/dL High 74-99 [facility] Comment on above: Order Comment: Speci men Type: BLOOD SPECIMENOrdering Facility: [facility] Address: [address] [place] [address] Result Comment: The [place] Diabetes Association (ADA) provides guidance for cutoff [...] Standards of Medical Care in Diabetes 2016, [place] Diabetes Association. Diabetes Care. 2016.39(Suppl 1). Performed By: #### 2 4323-8 ####[facility] LABCLIA [id number] [place] [address] [place] Potassium [Moles/Vol] 3.7 mmol/L Normal 3.7-5.1 [facility] Comment on above: Order Comment: Speci men Type: BLOOD SPECIMENOrdering Facility: [facility] Address: [address] [place] [address] Performed By: #### 2 4323-8 ####[facility] LABCLIA [id number] [place] [address] [place] Protein [Mass/Vol] 6.4 g/dL Normal 6.3-8.0 [facility] Comment on above: Order Comment: Speci men Type: BLOOD SPECIMENOrdering Facility: [facility] Address: [address] [place] [address] Performed By: #### 2 4323-8 ####[facility] LABCLIA [id number] [place] [address] [place] Sodium [Moles/Vol] 138 mmol/L Normal 136-144 [facility] Comment on above: Order Comment: Speci men Type: BLOOD SPECIMENOrdering Facility: [facility] Address: [address] [place] [address] Performed By: #### 2 4323-8 ####[facility] LABCLIA [id number] [address] Urea nitrogen [Mass/Vol] 17 mg/dL Normal 7-21 [facility] Comment on above: Order Comment: Speci men Type: BLOOD SPECIMENOrdering Facility: [facility] Address: [address] [address] Performed By: #### 2 4323-8 ####[facility] LABCLIA [id number] [address] ED NOTEon 05-28-2023 ED NOTE HNO ID: [id number] Author: Whit Herron RN Service: Emergency Medicine Author Type: Registered Nurse Type: ED Notes Filed: 05/28/2023 8:24 PM Note Text: Report Given to Daysi OLEARY Normal [facility] ED NOTE HNO ID: [id number] Author: Alyce James RN Service: Emergency Medicine Author Type: Registered Nurse Type: ED Notes Filed: 05/28/2023 7:08 PM Note Text: Report to Whit OLEARY Normal [facility] ED NOTE Normal [facility] ED NOTE Normal [facility] ED NOTE HNO ID: [id number] Author: Sam Andre RN Service: ? Author Type: Registered Nurse Type: ED Notes Filed: 05/28/2023 3:59 PM Note Text: Bed: E12-17 Expected date: 05/28/23 Expected time: Means of arrival: Comments: Normal [facility] ED PROV NOTEon 05-28-2023 ED PROV NOTE Normal [facility] HISTORY PHYSICALon HISTORY PHYSICAL Normal [facility] PATH INTERP CBCDIF (LAB REFL EX ORDER-NO BILL)on 05-28-2023 Complaints Coordinator review Pino (Unsp spec) [Interp] Reviewed by Vikki Griffin M.D., Ph.D Normal [facility] Comment on above: Order Comment: Speci men Type: BLOOD SPECIMENOrdering Facility: [facility] Address: [address] [address] Performed By: #### 5 7021-8, [id number] ####[facility] LABCLIA [id number] [place] [address] [place] STAFF REVIEW, CBCDIF Normal [facility] Comment on above: Order Comment: Speci men Type: BLOOD SPECIMENOrdering Facility: [facility] Address: [address] [address] Result Comment: Macr ocytic anemia without hypersegmented PMNsLeukopenia with absolute neutropeniaThrombocytopeniaCirculating blasts, consistent with patient's known history diagnosis of AML. Performed By: #### 5 7021-8, [id number] ####[facility] LABCLIA [id number] [place] [address] [place] Lab Reportson 05-23-2023 Lab Reports [id number]#1.00CD:127 Normal [facility] Lab Reportson 05-22-2023 Lab Reports [id number]#1.00CD:127 Normal [facility] Operative Reporton Operative Report [id number]#1.00CD:127 Normal [facility] Outside [facility] Correspo ndenceon 05-22-2023 Outside [facility] Correspondence [id number]#1.00CD:127 Normal [facility] Physician Referralon 023 Physician Referral [id number]#1.00CD:127 Normal [facility] Surgical Pathologyon 023 Surgical Pathology (NOTE) -- Diagnosis -- LIPOMA, LEFT ARM, EXCISION:-LIPOMA. Marnie Joseph Electronically Signed Out /12/26/2022 Clinical Information Pre-op Diagnosis: LARGE LIPOMA Operative Findings: INNER LEFT ARM Operation Performed: EXCISION tm Source of Specimen A: LIPOMA LARGE LEFT ARM Gross Description PRINCESS WILKES, LIPOMA LARGE LEFT ARM 5.8 x 4.5 x 3.8 cm circumscribed portion of fatty tissue with a few small areas of possible hemorrhage. There is no necrosis. Mental Health Assistant sections 1cs. tm Microscopic Description Microscopic examination performed. SURGICAL PATHOLOGY CONSULTATION Patient Name: PRINCESS WILKES [facility] Rec: [id number] Path Number: [id number] [facility] ANATOMIC PATHOLOGY [address] [place] [id number] [facility] Comment on above: Performed By: #### P PPVS #### [employer] [address] [id number] Drum Puller: Nghia Casas MD VL Extremity Venous Duplex L [facility] 06-14-2021 VL Extremity Venous Duplex Lower Left Preliminary Technologist Report Right comparison appeared normal Left lower extremity: There appeared to be no evidence of acute or chronic DVT, all vessels appeared compressible and patent. Results called to Deanna in [place] office at 4:00pm Mill Oiler: Beau Rocha RVT Radiologist Report CLINICAL HISTORY: [...] thrombosis on the left. Final Signed by: Tiffanie DANG, Rocael Alvarez Signed (Electronic Signature): 06.14.2021 5:11 pm Transcribed by: Beau Rocha Transcribed DT/TM: 06.14.2021 4:02 (If Report is Signed, Electronically Signed in Other Vendor System) Normal [facility] Vital Signs Date Time Vital Sign Value Performing Clinician Facility 06-25-2023 11:29-0400 Body temperature 97.7 [degF] Mike Hughes MD Work Phone: [facility] 06-25-2023 11:29-0400 Body weight 116.1 kg Mike Hughes MD Work Phone: [facility] 06-25-2023 11:29-0400 Diastolic blood pressure 54 mm[Hg] Mike Hughes MD Work Phone: [facility] 06-25-2023 11:29-0400 Heart rate 77 /min Mike Hughes MD Work Phone: [facility] 06-25-2023 11:29-0400 Respiratory rate 18 /min Mike Hughes MD Work Phone: [facility] 06-25-2023 11:29-0400 Systolic blood pressure 134 mm[Hg] Mike Hughes MD Work Phone: [facility] 06-25-2023 10:00-0400 Diastolic blood pressure 80 mm[Hg] Lj Liz MD Work Phone: [facility] 06-25-2023 10:00-0400 Heart rate 71 /min Lj Liz MD Work Phone: [facility] 06-25-2023 10:00-0400 Respiratory rate 16 /min Lj Liz MD Work Phone: [facility] 06-25-2023 10:00-0400 SaO2% (BldA) [Mass fraction] 97 % Lj Liz MD Work Phone: [facility] 06-25-2023 10:00-0400 Systolic blood pressure 153 mm[Hg] Lj Liz MD Work Phone: [facility] 06-25-2023 06:40-0400 Body temperature 97.7 [degF] Lj Liz MD Work Phone: [facility] 12-22-2022 15:00-0400 Diastolic blood pressure 88 mm[Hg] Martha Nazemi DO Work Phone: [facility] 12-22-2022 15:00-0400 Heart rate 62 /min Martha Nazemi DO Work Phone: [facility] 12-22-2022 15:00-0400 Respiratory rate 16 /min Martha Nazemi DO Work Phone: [facility] 12-22-2022 15:00-0400 SaO2% (BldA) [Mass fraction] 96 % Martha Nazemi DO Work Phone: [facility] 12-22-2022 15:00-0400 Systolic blood pressure 129 mm[Hg] Martha Nazemi DO Work Phone: [facility] 12-22-2022 14:32-0400 Body temperature 96.91 [degF] Martha Nazemi DO Work Phone: [facility] 12-22-2022 11:47-0400 Body height 166.4 cm Martha Nazemi DO Work Phone: [facility] 12-22-2022 11:47-0400 Body mass index (BMI) [Ratio] 43.43 kg/m2 Martha Nazemi DO Work Phone: [facility] 12-22-2022 11:47-0400 Body weight 120.2 kg Martha Nazemi DO Work Phone: [facility] Encounters Encounter Date Encounter Type Care Provider Facility Start: 10-12-2023 End: 10-13-2023 [facility] BETH KARI Facility:[facility] Start: 10-11-2023 [facility] Result Encounter Generic External Data Provider [facility] External Department Unsolicited Start: 10-11-2023 Clinisync Result Encounter Generic External Data Provider [facility] External Department Unsolicited Start: 10-11-2023 End: 10-11-2023 ambulatory ANANDA MARIEE Facility:[facility] Start: 10-10-2023 Bamboo flowsheet Charity hernadez TOLL LINE REPAIRER Work Phone: [facility] Start: 10-10-2023 Bamboo flowsheet Charity hernadez TOLL LINE REPAIRER Work Phone: [facility] Start: 10-10-2023 End: 10-11-2023 ambulatory CHARITY PAGE Not Available Start: 10-10-2023 End: 10-10-2023 Phys/qhp telephone evaluation 11-20 min Charity Page TOLL LINE REPAIRER Work Phone: [facility] Comment on above: Reactive depression (CMS/HCC) (Primary Dx); Anxiety; 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); Pancytopenia (CMS/HCC); Immunocompromised (CMS/HCC); Gastroesophageal reflux disease, unspecified whether esophagitis present Start: 10-09-2023 ambulatory Mike valencia MD Work Phone: Hematology/Oncology Comment on above: [id number] Start: 10-08-2023 Telephone encounter Melissa puri MD Work Phone: [facility] Start: 09-20-2023 ambulatory MELISSA PIERCE Faci lity:[facility] Start: 09-07-2023 End: 09-08-2023 ambulatory MELISSA PIERCE Facility:[facility] Start: 09-06-2023 End: 09-06-2023 ambulatory MELISSA PIERCE Not Available Start: 08-31-2023 End: 09-01-2023 ambulatory MABELShelley PIERCE Facility:[facility] Start: 08-30-2023 End: 08-30-2023 ambulatory MABELZEHRA PIERCE Facility:[facility] Start: 08-30-2023 End: 08-30-2023 ambulatory MABELShelley PIERCE Facility:[facility] Start: 08-15-2023 Social Work Britany DRAKE W Work Phone: Hematology/Oncology Start: 08-13-2023 Telephone encounter Georgina armas RN Work Phone: Hematology/Oncology Comment on above: Appointment Start: 08-09-2023 Refill Mike valencia MD Work Phone: Hematology/Oncology Comment on above: Refill Request Consent Presentation (IRB [id number]) Start: 08-08-2023 Telephone encounter Georgina armas RN Work Phone: Hematology/Oncology Comment on above: Patient Education (T ransplant) (BMT Planning) 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) Start: 08-07-2023 Refill Mike valencia MD Work Phone: Hematology/Oncology Comment on above: Refill Request Transplant Info Biopsy Request Start: 07-30-2023 End: 07-30-2023 ambulatory [facility] Facility:[facility] Start: 07-30-2023 End: 07-30-2023 Follow-up encounter Mike Hughes MD Work Phone: Hematology/Oncology Comment on above: 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); Immunocompromised (HCC); Hospital discharge follow-up; Pancytopenia (HCC); Colitis Start: 07-30-2023 End: 07-30-2023 Telemedicine consultation with patient Mike Hughes MD Work Phone: [facility] Start: 07-18-2023 End: 07-18-2023 Evaluation and management of inpatient [facility] Facility:[facility] Start: 07-13-2023 End: 07-18-2023 Evaluation and management of inpatient ZADI HERNANDEZ Facility:[facility] Start: 07-06-2023 Telephone encounter Aurelia valerio RN Work Phone: Hematology/Oncology Start: 07-02-2023 End: 07-02-2023 ambulatory MIKE HUGHES Facility:[facility] Start: 07-02-2023 End: 07-02-2023 ambulatory Mike Hughes MD Work Phone: Hematology/Oncology Comment on above: 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); Immunocompromised (HCC); Pancytopenia (HCC) Start: 07-02-2023 End: 07-02-2023 Telemedicine consultation with patient Mike Hughes MD Work Phone: [facility] Start: 06-27-2023 Orders Only Mike valencia MD Work Phone: Hematology/Oncology Comment on above: 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) Start: 06-25-2023 End: 06-25-2023 Patient encounter procedure Mike Hughes MD Work Phone: [facility] Start: 06-25-2023 End: 06-25-2023 ambulatory Mike Hughes MD Work Phone: Hematology/Oncology Comment on above: 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); Pancytopenia (HCC); History of breast cancer; Immunocompromised (HCC) Start: 06-25-2023 End: 06-25-2023 Subsequent hospital visit by physician Lj Liz MD Work Phone: [facility] [phone] Comment on above: 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) [C92.00] Start: 06-22-2023 Telephone encounter Agustina Quevedo MS W Hematology/Oncology Comment on above: Patient Question Start: 06-14-2023 End: 06-14-2023 ambulatory [facility] Facility:[facility] Start: 06-14-2023 Telephone encounter Mary ramachandran [facility] Work Phone: [facility] Comment on above: Biopsy Request Start: 05-31-2023 Telephone encounter Chika Burns atology/Oncology Start: 05-28-2023 End: 06-07-2023 Evaluation and management of inpatient [facility] Facility:[facility] Start: 05-28-2023 End: 05-29-2023 ambulatory Brianna Pham MD Work Phone: Hematology/Oncology Comment on above: 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); Infection due to Port-A-Cath, initial encounter Start: 05-28-2023 End: 05-28-2023 Patient encounter procedure Brianna Pham MD Work Phone: [facility] Start: 05-28-2023 End: 05-28-2023 Nursing evaluation of patient and report Aurelia Hines RN Work Phone: Hematology/Oncology Comment on above: 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) Start: 05-22-2023 ambulatory Facility:[facility] Start: 05-18-2023 ambulatory Facility:[facility] Start: 12-22-2022 End: 12-22-2022 [facility] Start: 12-22-2022 End: 12-22-2022 Subsequent hospital visit by physician Martha Malik DO Work Phone: [facility] Comment on above: Acute postoperative pain (Primary Dx); Lipoma of left forearm Start: 08-11-2021 End: 08-11-[address] MELISSA PIERCE Facility: Start: 06-14-2021 End: 06-15-2021 ambulatory MELISSA PIERCE Facility:[facility] Procedures Date Procedure Procedure Detail Performing Clinician Start: 10-11-2023 Antibody screen ANANDA MCKOY Comment on above: Order Comment: Speci men Type: BLOOD SPECIMEN Ordering Facility: [facility] Address: [address] [place] [address] Performed By: #### T [facility] #### [facility] BLOOD BANK [facility] [id number] [address] [place] [address] [place] Start: 10-11-2023 [facility] CBC W AUTO DIFF BLD Generic External Data Provider Start: 07-13-2023 Antibody screen MELISSA TEAGUE Comment on above: Order Comment: Speci men Type: BLOOD SPECIMENOrdering Facility: [facility] Address: [address] [place] [address] Performed By: #### T SCR ####CC [facility] BLOOD BANKCLIA [id number] [address] Start: 06-25-2023 FLOW CYTOMETRY FOR LEUKEMIA/LYMPHOMA (FCLL) PERFORMABLE Mike Hughes MD Work Phone: Start: 06-06-2023 Antibody screen MELISSA TEAGUE Comment on above: Order Comment: Speci men Type: BLOOD SPECIMENOrdering Facility: [facility] Address: [address] [place] [address] Performed By: #### T SCR ####CC [facility] BLOOD BANKCLIA [id number] [address] Start: 06-03-2023 Antibody screen MELISSA TEAGUE Comment on above: Order Comment: Speci men Type: BLOOD SPECIMENOrdering Facility: [facility] Address: [address] [place], [place] [id number] Performed By: #### T SCR, [facility], [id number] ####CC [facility] BLOOD BANKCLIA [id number] [address]#### [id number] ####[facility] LABCLIA [id number] [address] Start: 05-31-2023 Antibody screen MELISSA TEAGUE Comment on above: Order Comment: Speci men Type: BLOOD SPECIMENOrdering Facility: [facility] Address: [address] Performed By: #### T SCR ####CC [facility] BLOOD BANKCLIA [id number] [address] Start: 05-29-2023 Antibody screen MELISSA TEAGUE Comment on above: Order Comment: Speci men Type: BLOOD SPECIMENOrdering Facility: [facility] Address: [address] [place] [id number] Performed By: #### T SCR ####CC [facility]IN BLOOD BANKCLIA [id number] [address] OF [facility] Start: 05-02-2023 Lipid 1996 panel - S efra or Plasma Aurelia Hines RN Work Phone: Start: 02-26-2023 History of total hysterectomy Status post total hysterectomy Charity Page TOLL LINE REPAIRER Work Phone: Start: 04-22-2019 Colonoscopy Charity Page TOLL LINE REPAIRER Work Phone: Plan of Treatment Date Care Activity Detail Author Start: 05-22-2033 Urine microalbumin profile DTaP,Tdap,Td Vaccine (2 - Td or Tdap) [facility] Start: 04-22-2029 Screening for malign ant neoplasm of colon [facility] Start: 05-02-2028 Lipid 1996 panel - S efra or Plasma Lipid Screening [facility] Start: 05-02-2028 Lipid panel Lipid Screening [facility] Start: 07-18-2026 [facility] Start: 06-07-2026 [facility] Start: 05-31-2026 Diabetes Screening Diabetes [facility] Start: 05-28-2026 Diabetes Screening [facility] Start: 12-07-2023 Medicare Annual Well ness (AWV) Medicare Annual Wellness (AWV) [facility] Start: 11-22-[address] [facility] Start: 11-22-2023 Screening for malign ant neoplasm of breast Mammogram Screening [facility] Start: 09-03-2023 Advance Directive Discussion Advance Directive Discussion [facility] Start: 08-28-2023 End: 11-27-2023 ACUTE LEUKEMIA NGS PANEL, BONE MARROW ACUTE LEUKEMIA NGS PANEL, BONE MARROW Lab Routine 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) Expected: 08/28/2023, Expires: 11/27/2023 [facility] Work Phone: Comment on above: Expected: 08/28/2023 , Expires: 11/27/2023 Start: 08-28-2023 End: 11-27-2023 BONE MARROW ANALYSIS BONE MARROW ANALYSIS Lab Routine 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) Expected: 08/28/2023, Expires: 11/27/2023 [facility] Work Phone: Comment on above: Expected: 08/28/2023 , Expires: 11/27/2023 Start: 08-28-2023 End: 11-27-2023 CBC W Auto Differential panel - Blood CBC + DIFF Lab Routine 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) Expected: 08/28/2023, Expires: 11/27/2023 [facility] Work Phone: Comment on above: Expected: 08/28/2023 , Expires: 11/27/2023 Start: 04-03-2023 Influenza vaccination Flu vacc ine (Season Ended) [facility] Start: 01-03-2023 End: 01-03-2023 Patient encounter procedure 01/03/2023 Office Visit General Surgery Martha Malik I, DO [address] [place] [address] [place] [id number] [facility] GENERAL SURGERY Part of [facility] Start: 12-22-2022 End: 12-22-2022 Exc b9 lesion mrgn xcp sk tg t/a/l 0.5 cm/< ARM LESION BIOPSY EXCISION Lipoma of left forearm 12/22/2022 1:52 PM EDT [facility] Start: 11-17-2022 Annual Wellness Visi t (AWV) Annual Wellness Visit (AWV) [facility] Start: 09-03-2022 Advance Directive Discussion Advance Directive Discussion [facility] Start: 01-13-2021 COVID-19 Vaccine (3 - Booster for Pfizer series) COVID-19 Vaccine (3 - Booster for Pfizer series) [facility] Start: 12-16-2020 Covid-19 Vaccine (3 - Pfizer risk series) Covid-19 Vaccine (3 - Pfizer risk series) [facility] Start: 03-07-2020 Screening for malign ant neoplasm of colon [facility] Start: 2018 Bone Density Screening Bone Density Screening [facility] Start: 2018 Screening for osteoporosis Bone Density Screening [facility] Start: 05-22-2016 Shingles vaccine (2 of 3) Shingles vaccine (2 of 3) [facility] Start: 05-22-2016 Shingrix Vaccine (1 of 2) Shingrix Vaccine (1 of 2) [facility] Start: 2013 RSV Vaccine (1 - 1-d ose 60+ series) RSV Vaccine (1 - 1-dose 60+ series) [facility] Start: 2008 Screening for osteoporosis DEXA (modify frequency per FRAX score) [facility] Start: 2003 Screening for malign ant neoplasm of breast Breast cancer screen [facility] Start: 1998 Cologuard (FIT-DNA) Cologuard (FIT-D NA) [facility] Start: 1998 Colonoscopy Colonoscopy [facility] Start: 1998 Colorectal Cancer Screening Colorectal Cancer Screening [facility] Start: [address] COLONOGRAPHY [facility] Start: 1998 Fecal Occult Blood Fecal Occult Bloo d [facility] Start: 1998 Screening for malign ant neoplasm of colon [facility] Start: 1998 SIGMOIDOSCOPY SIGMOIDOSCOPY [facility] Start: 1993 Lipid panel Lipids [place] [employer] Start: 1988 Diabetes screen Diabetes screen [facility] Start: 1972 DTaP/Tdap/Td vaccine (1 - Tdap) DTaP/Tdap/Td vaccine (1 - Tdap) [facility] Start: 1971 Hepatitis C screening Hepatitis C sc reen [facility] Start: 1965 Depression Screen Depression Screen [facility] [employer] Start: 1953 Screening for malign ant neoplasm of colon [facility] AML MRD BY FC AML MRD BY FC La b Routine 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) 06/25/2023 8:27 AM EDT [facility] Work Phone: BONE MARROW ANALYSIS BONE MARROW ANALYSIS Lab Routine 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) 06/25/2023 8:55 AM [facility] Work Phone: BONE MARROW CHROMOSO ME ANAL BONE MARROW CHROMOSOME ANAL Lab Routine 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) 06/25/2023 8:27 AM [facility] Work Phone: Diagnostic bone jaylon ow biopsies IMAGING GUIDED BIOPSY BONE MARROW (HEMATOLOGY) Radiology Routine 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) Ordered: 08/08/2023 [facility] Work Phone: Comment on above: Ordered: 08/08/2023 DNA EXTRACTION BONE MARROW (BUFFY COAT) DNA EXTRACTION BONE MARROW (BUFFY COAT) Lab Routine 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) 06/25/2023 8:27 AM [facility] Work Phone: FLT3 ITD HN BONE MARROW FLT3 ITD HN BONE MARROW Lab Routine 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) 06/25/2023 8:27 AM [facility] Work Phone: MYELOID NGS PANEL ZEENAT NE MARROW MYELOID NGS PANEL BONE MARROW Lab Routine 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) 06/25/2023 8:27 AM [facility] Work Phone: Surgical Pathology Surgical Path ology Lab Routine Lipoma of left forearm Release Upon Ordering for 1 Occurrences starting 12/22/2022 [facility] Work Phone: Comment on above: Release Upon Orderin g for 1 Occurrences starting 12/22/2022 [facility] ANGIO HB6 [facility] SP IR Immunizations Immunization Date Immunization Notes Care Provider Sagrario bowen 05-22-2023 influenza (HD-IIV4) vaccine, age 65+ yr, high dose, quadrivalent, PF (FLUZONE HIGH-DOSE) Aurelia Hines RN Work Phone: [facility] 05-22-2023 tetanus toxoid, redu armaan diphtheria toxoid, and acellular pertussis vaccine, adsorbed Aurelia Hines RN Work Phone: [facility] 08-04-2019 pneumococcal polysaccharide vaccine, 23 valent Aurelia Hines RN Work Phone: [facility] 06-17-2018 influenza, injectabl e, quadrivalent, preservative free Aurelia Hines RN Work Phone: [facility] 06-17-2018 pneumococcal conjuga te vaccine, 13 valent Aurelia Hines RN Work Phone: [facility] 06-03-2017 influenza, injectabl e, quadrivalent, preservative free Aurelia Hines RN Work Phone: [facility] 07-17-2016 influenza, injectabl e, quadrivalent, preservative free Aurelia Hines RN Work Phone: [facility] 06-03-2016 seasonal influenza, intradermal, preservative free Aurelia Hines RN Work Phone: [facility] 03-27-2016 zoster vaccine, live Aurelia moser RN Work Phone: [facility] 07-15-2015 seasonal influenza, intradermal, preservative free Charity Page NP Work Phone: [facility] 05-26-2014 influenza, injectabl e, quadrivalent, preservative free Charity Page TOLL LINE REPAIRER Work Phone: [facility] 02-02-2008 tetanus and diphther ia toxoids, adsorbed, preservative free, for adult use (2 Lf of tetanus toxoid and 2 Lf of diphtheria toxoid) Charity Page TOLL LINE REPAIRER Work Phone: [facility] Payers Date Payer Category Payer Private Health Insurance [id number] 2023 Private Health Insurance CLI [id number] 2021 [facility] 2018 Medicare 1959 Medicare [id number] 1961 Unknown [id number] 1955 Unknown [id number] 1955 Unknown [id number] 1955 Unknown [id number] 1955 Unknown [id number] 1953 Unknown [id number] Social History Date Type Detail Facility Start: 12-07-2022 Tobacco smoking stat [facility] Tobacco smoking consumption unknown [employer] Start: 12-07-2022 End: 05-02-2023 Tobacco use and exposure Smokeless tobacco non-user [employer] Phone: Start: 12-22-2022 End: 09-06-2023 Alcohol intake Current drinker of alcohol (finding) [employer] Phone: Start: 12-22-2022 End: 10-11-2023 Alcohol intake [facility] Start: 1955 Sex Assigned At Not on file B [employer] Phone: Start: 12-12-2022 End: 12-22-2022 Exposure to SARS-CoV-2 (event) Not sure [employer] Start: 09-04-2013 End: 05-02-2023 Tobacco smoking status NHIS Never smoked tobacco [facility] Start: 05-28-2023 End: 10-11-2023 Tobacco use panel [facility] Adult Depression Screening Assessment [address] [facility] Start: 09-04-2013 Alcohol Comment social [facility] Start: 1955 Sex Assigned At Female [facility] Start: 11-15-2022 Gender identity Identifies as female gender (finding) [facility] How often to you hav e a drink containing alcohol? 2-3 time sa week [facility] How many standard drinks containing alcohol do you have on a typical day? 1 or 2 [facility] How often do you hav e 6 or more drinks on 1 occasion? Never [facility] Start: 03-08-2023 Alcohol Comment 1-2 drinks 2-3 x a week in the past year, Caffeine intake: 1-2 cups per day coffee [facility] Clinical Notes 09-11-2013 to 10-16-2023 Telephone Encounter - Leonel Olivares - 10/16/2023 1:53 PM ESTTelephone Encounter - Leonel Olivares - 10/16/2023 1:53 PM ESTTelephone Encounter - Jen Chacko MA - 10/08/2023 4:06 PM EST Note Date & Type Note Facility 10-16-2023 Telephone encounter Note Im so very sorry but I could not understand the Drs name Tammy left on our the voicemail .. But He or she would like to talk to you concerning Princess [phone] . That was all of the message [facility] 10-16-2023 Miscellaneous Notes Im so very sorry but I could not understand the Drs name Tammy left on our the voicemail .. But He or she would like to talk to you concerning Princess [phone] . That was all of the message I checked into pt's chart. Wonderly saw her a month ago for a telephone visit and increased her wellbutrin from 75 mg once a day to BID. Pt was scheduled for an appt tomorrow with Zehra for a recheck, but had to cancel that due to her oncology appt's and treatments. Pt states she is doing well on this dose but is ok with rescheduling appt for a telephone visit due to her schedule with oncology. I rescheduled pt for Sunday morning with Zehra for a telephone call appt. Pt does have enough wellbutrin to get her through to this appt. LA Shahid Pt would like call to discuss her wellbutrin. documented in this encounter [facility] 10-12-2023 Note [facility] 10-11-[address] Hughes, she and Dr. Macdonald spoke on Sunday and confirmed the patient move forward with the bone marrow biopsy. This was communicated to the patient/spouse after the message below was sent. Called and spoke with patient's spouse, De, who confirmed they are at [facility] preparing for the biopsy. Sofya Schmid RN October 11, 2023 10:04 AM documented in this encounter [facility] 10-10-2023 History of Present illness Narrative Images from the original note were not included. Subjective Patient ID: Princess Wilkes is a 68 y.o. female who presents for No chief complaint on file.. HPI: Did phone visit today. Had been in the hospital for Bacteremia last week, doing better now. Yesterday Hgb 10.3 platelets 9. Doing Chemo-will start round Sunday, Stem cell in the future. Today going to [place] for 3rd PICC, had to remove last one r/t thought had bacteria, but it was ok on culture. Tomorrow going to [place] for 5th bone marrow Bx. Appetite average, eats a meal a day. [employer] snacks rest of day ie orange or shake. ENT-nose bloody occ, using gel. Tooth issue-sees Dr Vance above left 2nd tooth from back crown, didn't want to do root canal, prefers extracted. Plans to see Dr Barnett. Bowels ok 2 senna cot a day, while on chemo MOM used and works wll. Taking Wellbutrin 75mg BID helped approx 50%. Leveled her out except when has certain appts. has been very supportive, keeps great notes Review of Systems Constitutional: Positive for appetite change. Negative for chills and fever. Fair appetite , drinking fluids well HENT: WNL except See HPI Respiratory: Negative for cough. Cardiovascular: Negative for chest pain. Gastrointestinal: Negative for abdominal pain. See HPI for bowels Genitourinary: Negative for difficulty urinating and dysuria. Psychiatric/Behavioral: Mood has been anxious r/t dealing with cancer-See HPI Objective Physical Exam Constitutional: General: She is not in acute distress. Pulmonary: Comments: Talking in full sentences, no cough Neurological: Mental Status: She is alert and oriented to person, place, and time. Psychiatric: Comments: Calm and cooperative, pleasant. close by during appt Assessment/Plan Diagnoses and all orders for this visit: Reactive depression (CMS/HCC) Comments: Had increased Wellbutrin to 75mg BID at last appt Orders: - buPROPion (Wellbutrin) 75 MG tablet; Take 1 tablet (75 mg) by mouth in the morning and 1 tablet (75 mg) before bedtime. Anxiety - buPROPion (Wellbutrin) 75 MG tablet; Take 1 tablet (75 mg) by mouth in the morning and 1 tablet (75 mg) before bedtime. 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) Comments: Pt is seeing Oncology Pancytopenia (CMS/HCC) Comments: Stable (last in Jul WBC 0.47), RBC 2.59, Hgb 7.8/Hct 22.8) Immunocompromised (CMS/HCC): Hx of Gastroesophageal reflux disease, unspecified whether esophagitis present: denies at this time Pt will update us on mood in approx 1-2 months-can do telephone visit if desired. 13 in telephone visit today documented in this encounter [facility] 10-08-2023 Telephone encounter Note I checked into pt's chart. Dr. Pierce saw her a month ago for a telephone visit and increased her wellbutrin from 75 mg once a day to BID. Pt was scheduled for an appt tomorrow with Zehra for a recheck, but had to cancel that due to her oncology appt's and treatments. Pt states she is doing well on this dose but is ok with rescheduling appt for a telephone visit due to her schedule with oncology. I rescheduled pt for Sunday morning with Zehra for a telephone call appt. Pt does have enough wellbutrin to get her through to this appt. [facility] 10-08-2023 Telephone encounter Note Pt would like call to discuss her wellbutrin. [facility]2023 Note [facility] 09-13-2023 Note [facility] 09-07-2023 Note [facility] 08-31-2023 Note [facility] 08-30-2023 Note [facility] 08-30-2023 Note [facility] 08-15-2023 Note [facility] 08-15-2023 History of Present illness Narrative SOCIAL [...] . Both stated they stayed at [facility] in the past and needed to stay for the visit in August (message sent to director of hotel regarding same). stated a referral has been sent to [facility] for the September stay. Mickie will meet with the BMT health and social care teacher at the August visit. Therefore, message sent to her regarding above. Provided support and encouragement. FREDRICK Morgan documented in this encounter [facility] 08-14-2023 Miscellaneous Notes Spoke to pt and [...] for this procedure: low risk. Reference from [facility] Service Desk Associate: [email or web address] STAFF SIGNATURE: Robinson Benito MD DATE: August [...] CONTACT INFORMATION: Best way to reach patient [phone]. SCHEDULING: Date: 08/28/23 (Specific requests must be [...] random biopsies do not need imaging.) IMAGING: [facility] (If the imaging was obtained outside the [facility] system, PLEASE upload for review prior to approval.) Note to all persons requesting biopsies: All biopsy requests will be scheduled as quickly as possible, based on the clinical urgency, availability of appointment times, the need to hold anti-thrombolytic therapy (aspirin and other blood thinners) and the patient s schedule, including the need for an available non emergency services ambulance driver. If a percutaneous biopsy or drainage is not felt to be safe or an alternative method for establishing a diagnosis is possible, this will be discussed directly with the requesting physician. documented in this encounter [facility] 08-13-2023 Miscellaneous Notes Princess's , De, called to clarify lab needed the week of 09/04/2023. He is aware the lab will be scheduled on the same day Princess see's Dr. Pham. Also informed De that per BMT TOLL LINE REPAIRER, Princess's bone density done in October 2021 will be her baseline prior to BMT. De confirmed Princess has received and been reading through the [facility] BMT study consent, and they do not have questions at this time. He verbalized understanding of all the above and is aware to call with questions or concerns. Georgina Kumar RN documented in this encounter [facility] 08-09-2023 Miscellaneous Notes Pt's copay to get posaconazole through [facility] home delivery is $4k. Previously it was sent through [facility], will change script to [facility] instead. Estephanie Parada RN documented in this encounter [facility] 08-08-2023 Miscellaneous Notes [facility] INITIAL TELEPHONE CONTACT Spoke with Princess Wilkes and her , De, on the telephone on 08/08/2023 at 10:10. Princess Wilkes informed that hard copy of education binder will be given to patient at pre-transplant evaluation and link to education binder provided to patient via [employer] secure patient message. Princess Wilkes is currently [...] reside within one hour driving distance from [facility] for at least 100 days post-transplant. Her De will be her primary caregiver and they might stay at [facility] post BMT. Female fertile? No Ovarian [...] Georgina Kumar RN documented in this encounter [facility] 07-30-2023 Note [facility] 07-30-2023 History of Present illness Narrative Images from the original note were not included. This is a virtual visit using [employer] Zoom Video Visit. It required patient-provider interaction for the medical decision making as documented below. I have communicated my name and active licensure. The patient's identity and physical location were verified at the time of this visit. Either the patient or their legal advertising account representative has been informed of the risks and benefits of -- and alternatives to -- treatment through a remote evaluation and consents to proceed with the evaluation remotely. [facility] Department of Hematology and Medical Oncology Leukemia Program Princess Wilkes ID: [id number] 07/30/2023 PRIMARY CARE PHYSICIAN: Melissa Pierce MD [...] Complications: - Aza/Milton was initiated inpatient at [facility] main (admitted due to concern for port infection) - Diverticulitis - hospitalized 06/18/23 - treated with abx - discharged on 06/20/23 - platelet transfusions 06/13/23 and 06/26/23 - After C2 was admitted again for fever, abdominal infection, transferred to [facility] And was treated with Zosyn, needed PRBCs and platelets when hospitalized Interval history: Today Princess is C2D29 of Aza + Milton (7 days). She was scheduled to start C3 today however her ANC last week was 0.[address] Macdonald and I discussed delaying her next cycle by a week. After C2 she had another bout of fever and was admitted (transferred to [facility]) and treated with Zosyn. 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 Oncotype Dx 13 - so no chemo was offered. She then completed 5 years of endocrine therapy from 01/2014 - 01/2019 - letrozole followed by tamoxifen (x1 year). 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 Chest 2012, 141:7S-47S Margo HORN et al. [facility] 2017, 70: 252-289 BONE MARROW ANALYSIS: [id number] Order: [id number] Collected 06/25/2023 8:55 AM Status: Final result [...] Hernandez from the hematopathology section at the [facility], and he concurs with the above rendered final diagnosis and interpretation. Laboratory Developed Test (LDT) Disclaimer: Performance characteristics of immunohistochemical, immunofluorescent and chromogenic in-situ hybridization tests have been determined by the performing laboratory within [facility] s [facility] Pathology and Laboratory Medicine [place] ([facility], [facility], [facility], [facility], [facility], [facility], [facility], or [facility]) in a manner consistent with CLIA [...] hemodilute touch imprint may not be entirely advertising account representative of the true marrow cellularity. Result [...] cassette. Performing Lab Diagnostic interpretation performed at [facility], [address] [place], [place] [address]IA# [id number] Information Systems Project Manager: Boris Wood M.D. Assessment and Plan: Ms. Princess Wilkes is a 67 year old female with prior Stage 1 (aE1aU3R6) L breast invasive and DCIS, 1.5 cm, grade 2, ER/WY positive and HER2 negative s/p L lumpectomy [...] status # Prior Breast CA Stage 1 (nF6sR2M3) L breast invasive and DCIS, 1.5 cm, grade 2, ER/WY positive and HER2 negative s/p L lumpectomy [...] which included preparing to see the patient, [id number] patient care, completing clinical documentation, obtaining and/or reviewing separately obtained history, and performing a medically appropriate examination. Mike Hughes MD Hematology and Medical Oncology, Leukemia Division 06/25/23 cc: Mike Hughes [address] [facility] [id number] Melissa Pierce MD [address] [place] [id number] documented in this encounter [facility] 07-18-2023 Note [facility] 07-17-2023 Note [facility] 07-16-2023 Note [facility] 07-16-2023 Note [facility] 07-15-2023 Note [facility] 07-14-2023 Note [facility] 07-14-2023 History of Past i llness Narrative [...] Tylenol and d/c'd home > seen at 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 History of Past illness Narrative* Problem Noted [...] Tylenol and d/c'd home > seen at 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 History of Past illness Narrative* Problem Noted [...] Tylenol and d/c'd home > seen at 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 History of Past illness Narrative* Problem Noted [...] Tylenol and d/c'd home > seen at 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 History of Past illness Narrative* Problem Noted [...] Tylenol and d/c'd home > seen at 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 History of Past illness Narrative* Problem Noted [...] Tylenol and d/c'd home > seen at 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 History of Past illness Narrative* Problem Noted [...] Tylenol and d/c'd home > seen at 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 History of Past illness Narrative* Problem Noted [...] Tylenol and d/c'd home > seen at 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 History of Past illness Narrative* Problem Noted [...] Tylenol and d/c'd home > seen at 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 History of Past illness Narrative* Problem Noted [...] Tylenol and d/c'd home > seen at 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 History of Past illness Narrative* Problem Noted [...] Tylenol and d/c'd home > seen at 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 History of Past illness Narrative* Problem Noted [...] Tylenol and d/c'd home > seen at 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 Miscellaneous Notes* Telephone Encounter - Aurelia Hines, MAMTA - 07/06/2023 12:17 PM EDT HLA match [...] WILKES Donor Name: PIERRE FERRARI Donor ID: [id number] Relationship: Sibling Report Status: Final Patient HLA Specimen Date: 05/29/2023 DNA ID: [id number] Patient HLA Typing: HLA-A* 02:01 , 68:02 HLA-B* 14:02 , 15:01 HLA-C* 03:04 , 08:02 HLA-DRB1* 01:01 , 13:03 HLA-DRB3* 01:01 , - HLA-DRB4* - , - HLA-DRB5* - , - HLA-DQA1* 01:01 , 05:05 HLA-DQB1* 03:01 , 05:01 HLA-DPA1* 01:03 , - HLA-DPB1* 02:01/416:01 , 04:02/105:01 COMMENTS: none Donor HLA Specimen Date: 06/19/2023 DNA ID: [id number] Donor HLA Typing: HLA-A* 02:01 , 68:02 HLA-B* 14:02 , 15:01 HLA-C* 03:04 , 08:02 HLA-DRB1* 01:01 , 13:03 HLA-DRB3* 01:01 , - HLA-DRB4* - , - HLA-DRB5* - , - HLA-DQA1* 01:01 , 05:05 HLA-DQB1* 03:01 , 05:01 HLA-DPA1* 01:03 , - HLA-DPB1* 02:01/416:01 , 04:02/105:01 COMMENTS: none NOT RULED OUT: [...] 06/27/2023 Aurelia Hines RN documented [facility] History of Present illness Narrative* Mike Hughes MD - 07/02/2023 8:49 AM EDT Images from the original note were not included. This is a virtual visit using Lap[employer]om Video Visit. It required patient- provider interaction for the medical decision making as documented below. I have communicated my name and active licensure. The patient's identity and physical location wereverified at the time of this visit. Either the patient or their legal advertising account representative has been informed of the risks and benefits of -- and alternatives to -- treatment through a remote evaluation andconsents to proceed with the evaluation remotely. 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 Macdonald. History Of Present Illness: Ms. Princess Wilkes is a 67 year old female with prior Stage 1 (fM3jI4D0) L breast invasive and DCIS,1.5 cm, grade 2, ER/WY positive and HER2 negative s/p L lumpectomy Sep 2013 followed by adjuvant RTto L breast completed 01/06/14. Oncotype Dx 13 - so no chemo was offered. She then completed 5 years of endocrine therapy from 01/2014 - 01/2019 - letrozole followed by tamoxifen (x1 year). She presented to the ER on 05/03/23 at [facility] with generalized weakness, dizziness, exertional dyspnea [...] CBC - 0.9 0.09 9.3 10 Darlyn [phone] Past MHx: PAST MEDICAL HISTORY Diagnosis Date [...] with VKA drugs, such as warfarin, the [place] [employer] 2012 Guideline recommends [...] Chest 2012, 141:7S-47S Margo RA, et al. [facility] 2017, 70: 252-289 BONE MARROW ANALYSIS: [id number] Order: [id number] Collected 06/25/2023 8:55 AM Status: Final result [...] Hernandez from the hematopathology section at the [facility], and he concurs with the above rendered final diagnosis and interpretation. Laboratory Developed Test (LDT) Disclaimer: Performance characteristics of immunohistochemical, immunofluorescent and chromogenic in-situ hybridization tests have been determined by the performing laboratory within [facility] s [facility] [place] ([facility], [facility], [facility], [facility], [facility], [facility], [facility], or [facility]) in a manner consistent with CLIA [...] hemodilute touch imprint may not be entirely advertising account representative of the true marrow cellularity. Result [...] cassette. Performing Lab Diagnostic interpretation performed at [facility], [address] [place] [address]# [id number] Information Systems Project Manager: Boris Wood M.D. Assessment and Plan: Ms. Princess Wilkes is a 67 year old female with prior Stage 1 (aV6xT9G9) L breast invasive and DCIS,1.5 cm, grade 2, ER/WY positive and HER2 negative s/p L lumpectomy [...] needed # Prior Breast CA Stage 1 (nD3cQ7C1) L breast invasive and DCIS, 1.5 cm, grade 2, ER/WY positive and HER2 negative s/p L lumpectomy [...] which included preparing to see the patient, [id number] patient care, completing clinical documentation, obtaining and/or reviewing separately obtained history, and performing a medically appropriate examination. Mike Hughes MD Hematology and Medical Oncology, Leukemia Division 06/25/23 cc: Mike Hughes [id number] [address] Melissa Pierce MD [address] [place] [address] documented in [address] [facility]23 [facility]10-23-2023 Nurse Note* Charlene Ruiz LPN - 06/25/2023 11:28 AM EDT Additional intake questions: Has the patient had fever, nausea, vomiting, diarrhea, constipation, fatigue for > 1 week? Yes, vomiting Does the patient have a decreased appetite? No Does patient want to see a Maintenance Shop Clerk? No (yes to any of above refer patient to schedulers for dietitian appointment) ) Does patient have any new or increased numbness or tingling of extremities? No Is patient interested in fertility information? NA Does patient need any prescription refills? No Does patient have an advanced directive in place? Yes, no copy found in [facility] Patient referred to Social Work and Patient referred to Resource Center documented in this encounter[facility] Surgical operation note* Brief Op Note - Robinson Benito MD - 06/25/2023 9:06 AM EDT BRIEF OPERATIVE / PROCEDURE NOTE LOG ID: [id number] SURGERY/PROCEDURE DATE: 06/25/2023 INCISION/PROCEDURE START TIME: 8:40 AM INCISION CLOSE/PROCEDURE END TIME: 8:59 AM SURGEON(S)/PROCEDURALIST(S) AND ABSTRACTOR(S): Surgeon(s) and Role: * Lj Liz MD [...] 2023 TIME: 9:06 AM documented in this [facility] History of Present illness Narrative* Marry Modi [...] 25, 2023 8:33 AM documented in this encounter[facility]-2023 Miscellaneous Notes* Patient Education - Carmen Agudelo [...] Department: HOSP MAIN [id number] documented in this encounterMer[facility]23 History and physical note * Robinson Benito [...] TIME: 8:01 AM PAGER: documented in this encounterMer[facility]10[facility] History of Present illness Narrative* Mike Hughes MD - 06/25/2023 12:00 AM EDT Images from the original note were not included. 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 Macdonald. History Of Present Illness: Ms. Princess Wilkes is a 67 year old female with prior Stage 1 (yL3aI6L3) L breast invasive and DCIS,1.5 cm, grade 2, ER/WY positive and HER2 negative s/p L lumpectomy Sep 2013 followed by adjuvant RTto L breast completed 01/06/14. Oncotype Dx 13 - so no chemo was offered. She then completed 5 years of endocrine therapy from 01/2014 - 01/2019 - letrozole followed by tamoxifen (x1 year). She presented to the ER on 05/03/23 at [facility] with generalized weakness, dizziness, exertional dyspnea [...] - 0.9 0.09 9.3 10 Darlyn - [phone] Past MHx: PAST MEDICAL HISTORY Diagnosis [...] with VKA drugs, such as warfarin, the [place] [employer]icians 2012 Guideline recommends [...] Chest 2012, 141:7S-47S Margo RA, et al. [facility] 2017, 70: 252-289 Assessment and Plan: Ms. Princess Wilkes is a 67 year old female with prior Stage 1 (vN6bF6M1) L breast invasive and DCIS,1.5 cm, grade 2, ER/WY positive and HER2 negative s/p L lumpectomy [...] needed # Prior Breast CA Stage 1 ([id number]) L breast invasive and DCIS, 1.5 cm, grade 2, ER/WY positive and HER2 negative s/p L lumpectomy [...] which included preparing to see the patient, [id number] patient care, completing clinical documentation, obtaining and/or reviewing separately obtained history, and performing a medically appropriate examination. Mike Hughes MD Hematology and Medical Oncology, Leukemia Division 06/25/23 cc: Mike Hughes [address] [facility] [address] Melissa Pierce MD [address] [place] [address] documented in this encounterMercy Health St. [facility]10-20-2023 Miscellaneous Notes* Telephone Encounter - Agustina Quevedo [...] REEMA for her assistance. documented in this encounterMercy Health St. [facility]10-18-2023 Nurse Note* Edel Hobbs LPN - 06/20/2023 11:11 AM EDT Pre- e instructions: Contacted patient and confirmed appt. for bone marrow biopsy scheduled on 06/25/23, at [facility]. Diet: Do not eat solid food after [...] signed. Arrival at 6:30am to desk QB-1 ([facility]) and check in for your procedure. [employer] Supervisor/Transportation: How will you be arriving for your procedure? Private car. If you will be arriving at [facility] via ambulance or public transportation, please call to discuss. You will need a responsible adult to accompany you to and from the procedure. Your non emergency services ambulance driver is required to stay with you until you are taken into the Procedure room. Recovery expectations: You can expect to be at the hospital for the majority of the day. Please do not schedule any other appointments the day of your procedure. Written instructions provided to patient via [employer] If you have any questions please call [phone] documented in [address] encounterMercy Health [address]. [facility]10-17-2023 Miscellaneous Notes* Telephone Encounter - Amrita Pelaez - 06/19/2023 4:00 PM EDT Spoke to pt and scheduled biopsy for 06/25/23. * Telephone Encounter - Gurmeet Webb MD, PhD - 06/15/2023 5:00 PM EDT RADIOLOGIST REQUEST / APPROVAL FORM STAFF RADIOLOGIST: Arnaldos PROCEDURE TO BE DONE UNDER: CT PROCEDURE REQUESTED: CORE Requested PROCEDURE: Approved TIME SLOT NEEDED: 1 Hour NOTES: Platelet count 9 on most recent labs FYI SPECIAL LABS/ PROCESSING: N/A Pre-procedure labs: CBC: not needed INR: not needed COVID: not needed SIR Bleeding risk category for this procedure: low risk. Reference from [facility] Service Desk Associate: [email or web address]://[facility].policytech.com/dotNet/[email or web address] STAFF SIGNATURE: Gurmeet Webb MD DATE: June [...] PATIENT CONTACT INFORMATION: Best way to reach [phone] SCHEDULING: Date: 06/25/2023 patient is scheduled for a standard marrow this day but required CT guided last time. Please call Estephanie RN at [phone] if any questions. (Specific requests must be [...] random biopsies do not need imaging.) IMAGING: [facility] (If the imaging was obtained outside the [facility] system, PLEASE upload for review prior to approval.) Note to all persons requesting biopsies: All biopsy requests will be scheduled as quickly as possible, based on the clinical urgency, availability of appointment times, the need to hold anti-thrombolytic therapy (aspirin and other blood thinners) and the patient s schedule, including the need for an available non emergency services ambulance driver. If a percutaneous biopsy or drainage is not felt to be safe or an alternative method for establishing a diagnosis is possible, this will be discussed directly with the requesting physician. documented in this encounterMercy Health St. [facility]10-14-2023 NoteHNO ID: [id number] Author: Note, Interface Service: ? Author Type: ? Type: Progress Notes Filed: 2023 2:15 AM Note Text: Epic Scheduled Downtime: 2023 1:00:00 AM to 2023 1:28:00 [facility]10-12-2023 [facility]10-12-2023 Miscellaneous Notes* Telephone Encounter - Mary Ohara LGC - 06/14/2023 1:24 PM EDT I left a voicemail for the patient including my contact information requesting that she return my call to discuss options for scheduling a genetic counseling visit. Mary Ohara MS, [facility], PhD Licensed, Certified Genetic Counselor documented in this encounterMercy Health St. [facility]10-05-2023 [facility]20[facility]-03-2023 Note[facility]-03-2023 [facility]10-02-2023 Note [facility]-02-2023 [facility]10[facility]01-2023 Note[facility]09-30-2023 [facility] 06-01-2023 Note[facility]09-29-2023 Note[facility]09-29-2023 Note[facility]09-29-2023 Note[facility]09-28-2023 Miscellaneous Notes* Telephone Encounter - Chika Lagos - 05/31/2023 2:54 PM EDT THE COMPLETED [employer] PATIENT ASSISTANCE APPLICATION FOR POSACONAZOLE WAS FAXED FOR CONSIDERATION. RECEIVED CALL FROM [employer] AND MORENITA SEARS, THE PATIENT WAS APPROVED FOR ASSISTANCE UNDER FOR THE DATES: 05/31/2023 - AT NO COST TO THE PATIENT. THE MEDICATION WILL BE MAILED DIRECTLY TO THE PATIENTS HOME ADDRESS WITHIN 3 TO 5 BUSINESS DAYS. EMAILED THE INFORMATION TO PRESCRIBER. documented in this encounterMercy Health St. [facility]09-28-2023 [facility]09-28-2023 NoteSelect [facility]09-28-2023 History of Past illness Narrative* Problem Noted [...] Tylenol and d/c'd home > 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-28-[facility]23 History of Past illness Narrative* [...] Tylenol and d/c'd home > seen at 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-28-[facility] History of Past illness Narrative* [...] Tylenol and d/c'd home > seen at 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09-28-2023 History of Past illness Narrative* [...] Tylenol and d/c'd home > seen at 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-28-[facility] History of Past illness Narrative* [...] Tylenol and d/c'd home > seen at 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-28-[facility] History of Past illness Narrative* [...] Tylenol and d/c'd home > seen at 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 History of Past illness Narrative* [...] Tylenol and d/c'd home > seen at 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 History of Past illness Narrative* [...] Tylenol and d/c'd home > seen at 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09-28-2023 NoteSelect [facility]09-28-2023 Note [facility]09-28-2023 NoteSelect [facility] [place]09-27-2023 NoteSelect [facility] [place]09-26-2023 NoteSelect [facility] [place] 05-28-2023 NoteSelect [facility]09-25-2023 History of Present illness Narrative* Brianna Pham MD - 05/28/2023 3:51 PM EDT Chief complaint: 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 Sherry Macdonald) History of present illness: The patient is a 67-year-old woman with a history of stage I ([id number])invasive breast carcinoma and DCIS of the left breast, 1.5 cm, grade 2, ER/WY positive and HER2 negative status post lumpectomy [...] experienced easy bruising. She initially presented to [place] emergency department and was subsequently transferred to [facility] for further evaluation. She was noted [...] revealed complex cytogenetics/an NGS AML profile by [employer] revealed the following mutations:RUNK1 F40Wfs*14, TP53 C238Y, and DNMT3A R635W. The patient had a right sided Port-A-Cath placed on 05/26/2023 and was initially anticipated to start Vidaza and venetoclax next week. However, the Port-A-Cath site became extremely tender with surrounding erythema. She was evaluated earlier today by Dr. Mike Hughes and our Leukemia Program here at the [facility] and subsequently was referred to me for a transplant regarding allogenic hematopoietic cell transplantation. At the time of her visit she noted having some prior diffuse pain for which she had been in [facility]'s emergency department yesterday and received an injection [...] patient is and previously worked as a [employer] for 42 years and has been retired [...] on her extremities, erythema/tenderness around the right Dkrr-Q-Pgvoshog tracking down to the right upper breast but no other rash. . Impression/recommendation: In summary, Mrs. Wilkes is a woman with a history of stage I ([id number]) invasive breast carcinoma and DCIS of the left breast, 1.5 cm, grade 2, ER/WY positive and HER2 negative status post lumpectomy [...] Melissa Hill MD (PCP) documented in this encounterMercy Health St. [facility]09-25-2023 NoteSelect [facility] [place]09-25-2023 History of Present illness Narrative* Aurelia Hines [...] transplant basics book provided by [facility]. Instructions provided to have siblings register online or call with provided information. Patient instructed to call Aurelia Hines RN , pager [phone] with any questions. Business card provided. Patient [...] search. Aurelia Hines RN documented in this encounterMercy Health St. [facility]09-25-2023 Nurse Note* Cathleen Schuster LPN - 05/28/2023 1:26 PM EDT Reviewed and discussed nursing notes,vital signs,recent tests,,medications with the patient. documented in this encounterMercy Health St. [facility]09-25-2023 NoteSelect [facility]ty [facility] [place]04-21-2023 History of Present illness Narrative* Lynnette Malcolm [...] wellness lab and EKG completed 12/06/22 at [facility]. * New Marks RN - 12/07/2022 1:28 PM EDT Attempted PAT phone call; no answer; message left to return PAT phone call. documented in [facility] encounterB[facility] [place] Phone: 1(877) 929-485804-21-2023 Hospital Discharge instructions* Discharge Instructions* Lynnette Malcolm [...] 1-2 weeks. Call the office if questions [phone] documented in this encounterBON [facility] WESTBioAssets Development Phone: [phone] 851-998301-09-2014 History of Past illness Narrative* Problem Noted Date Diagnosed Date Resolved Date Breast cancer 09/11/2013 05/28/2023 documented as of this encounter (statuses as of 05/28/2023) [facility]01-[facility] History of Past illness Narrative* Problem Noted Date Diagnosed Date Resolved Date Breast cancer 09/11/2013 05/28/2023 documented as of this encounter (statuses as of 05/29/2023) 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* Diagnosis 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) documented in this encounter 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* Diagnosis Reactive depression (CMS/HCC)- Primary Anxiety Anxiety state, unspecified 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) Pancytopenia (CMS/HCC) Immunocompromised (CMS/HCC) Unspecified immunity deficiency Gastroesophageal reflux disease, unspecified whether esophagitis present documented in this encounter [facility] Summary Purpose Family History No Family History [...] section and content) DATE CREATED AUTHOR 06/15/2021 [facility] DATE CREATED AUTHOR AUTHOR'S ORGANIZ ATION 08/17/2021 [facility] DATE CREATED AUTHOR AUTHOR'S ORGANIZ ATION 12/27/2022 [facility] DATE CREATED AUTHOR AUTHOR'S ORGANIZ ATION 05/25/2023 [facility] DATE CREATED AUTHOR AUTHOR'S ORGANIZ ATION 10/15/2023 [facility] EPIC DATE CREATED AUTHOR AUTHOR'S ORGANIZ ATION 10/16/2023 [facility] DATE CREATED AUTHOR AUTHOR'S ORGANIZ ATION 10/17/2023 [facility] Reason for Visit (unrecogniz ed section and content) Specialty Diagnoses / Procedures Referred By Contac t Referred To Contact Diagnoses 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 Procedures WY EXC B9 LESION MRGN XCP SK TG T/A/L 0.5 CM/< ARM LESION BIOPSY EXCISION-INNER ARM LIPOMA Martha Malik DO [address] [place] [address] [facility] [address] [place] [address] Referral ID Status Reason Start Date Expiration Date Visits Re quested Visits Authorized [id number] 1 1 Reason Comments Consult Reason Comments Biopsy Request Reason Comments Patient Question Reason Comments Established Patient Reason Comments Leukemia Reason Onset Date Comments Refill Request 08/07/2023 Reason Comments Patient Education (Transplant) BMT Plann ing Reason Onset Date Comments Refill Request 08/09/2023 Reason Comments Consent Presentation IRB [id number] Reason Comments Appointment Ordered Prescriptions (unrec ognized [...] 12/20/2022 12/21/2022 12/22/2022 bupivacaine-EPINEPHrine PF (MARCAINE-w/EPINEPHRINE) 0.5% -[id number] injection (CANCELED) PRN, Starting on Sun12/22/22 at [...] Care Teams (unrecognized sec tion and content) Claim Approver Relationship Specialty Start Date End Date Wonderly, Melissa Banuelos MD [address] [place] [address] PCP - General Family Medicine 11/17/22 Claim Approver Relationship Specialty Start Date End Date Wonderly, Melissa Shahid MD PCP - General Family Medicine 08/25/13 Claim Approver Relationship Specialty Start Date End Date Wonderly, Melissa Shahid MD PCP - General Family Medicine 08/25/13 Claim Approver Relationship Specialty Start Date End Date Wonderly, Melissa Shahid MD PCP - General Family Medicine 08/25/13 Claim Approver Relationship Specialty Start Date End Date Wonderly, Melissa Shahid MD PCP - General Family Medicine 08/25/13 Claim Approver Relationship Specialty Start Date End Date Wonderly, Melissa Shahid MD PCP - General Family Medicine 08/25/13 Mike Hughes MD [address] [place] [address] Physician Hematology/Oncology 06/19/23 Claim Approver Relationship Specialty Start Date End Date Wonderly, Melissa Shahid MD PCP - General Family Medicine 08/25/13 Mike Hughes MD [address] [place] [address] Physician Hematology/Oncology 06/19/23 Claim Approver Relationship Specialty Start Date End Date Melissa Pierce MD PCP - General Family Medicine 08/25/13 Mike Hughes MD [address] [place] [id number] Physician Hematology/Oncology 06/19/23 Claim Approver Relationship Specialty Start Date End Date Melissa Pierce MD PCP - General Family Medicine 08/25/13 Mike Hughes MD [address] [place] [address] Physician Hematology/Oncology 06/19/23 Claim Approver Relationship Specialty Start Date End Date Melissa Pierce MD PCP - General Family Medicine 08/25/13 Mike Hughes MD [address] [place] [address] Physician Hematology/Oncology 06/19/23 Dania Hill, MAMTA Specialty Motorcycle Racer Hematology/Oncology 06/28/23 Claim Approver Relationship Specialty Start Date End Date Melissa Pierce MD PCP - General Family Medicine 08/25/13 Mike Hughes MD [address] [place] [id number] Physician Hematology/Oncology 06/19/23 Dania Hill, RN Specialty Motorcycle Racer Hematology/Oncology 06/28/23 Claim Approver Relationship Specialty Start Date End Date Melissa Pierce MD PCP - General Family Medicine 08/25/13 Mike Hughes MD [address] [place] [id number] Physician Hematology/Oncology 06/19/23 Dania Hill, RN Specialty Motorcycle Racer Hematology/Oncology 06/28/23 Claim Approver Relationship Specialty Start Date End Date Melissa Pierce MD PCP - General Family Medicine 08/25/13 [place] [address] [place], [place] [phone] Physician Hematology/Oncology 06/19/23 Dania Hill, RN Specialty Motorcycle Racer Hematology/Oncology 06/28/23 [place] [address] [place] [phone] Specialty Motorcycle Racer Blood and Marrow Transplant 08/06/23 [place] [address] [place] [phone] Transplant Physician Blood and Marrow Transplant 08/06/23 Claim Approver Relationship Specialty Start Date End Date Melissa Pierce MD PCP - General Family Medicine 08/25/13 Miek Hughes MD [address] [place], [place] [phone] Physician Hematology/Oncology 06/19/23 Dania Hill, MAMTA Specialty Motorcycle Racer Hematology/Oncology 06/28/23 Georgina Kumar, MAMTA [address] [place] [address] Specialty Motorcycle Racer Blood and Marrow Transplant 08/06/23 [place] [id number] [place] [address] Transplant Physician Blood and Marrow Transplant 08/06/23 Claim Approver Relationship Specialty Start Date End Date Melissa Pierce MD PCP - General Family Medicine 08/25/13 Mike Hughes MD [address] [place], [place] [phone] Physician Hematology/Oncology 06/19/23 Dania Hill RN Specialty Motorcycle Racer Hematology/Oncology 06/28/23 Georgina Kumar, MAMTA [address] [place] [phone] Specialty Motorcycle Racer Blood and Marrow Transplant 08/06/23 Brianna Phma [place] [id number] [place] [address] Transplant Physician Blood and Marrow Transplant 08/06/23 Claim Approver Relationship Specialty Start Date End Date Melissa Pierce MD PCP - General Family Medicine 08/25/13 Mike Hughes MD [address] [place] [id number] Physician Hematology/Oncology 06/19/23 Dania Hill, MAMTA Specialty Motorcycle Racer Hematology/Oncology 06/28/23 Georgina Kumar, MAMTA [address] [place] [address] Specialty Motorcycle Racer Blood and Marrow Transplant 08/06/23 [place] [address] [place] [address] Transplant Physician Blood and Marrow Transplant 08/06/23 Claim Approver Relationship Specialty Start Date End Date Melissa Pierce MD PCP - General Family Medicine 08/25/13 [place] [address] [place] [address] Physician Hematology/Oncology 06/19/23 Dania Hill, MAMTA Specialty Motorcycle Racer Hematology/Oncology 06/28/23 eGorgina Kumar, MAMTA [address] [place] [phone] Specialty Motorcycle Racer Blood and Marrow Transplant 08/06/23 Brianna Pham MD [id number] [place], [place] [id number] Transplant Physician Blood and Marrow Transplant 08/06/23 Claim Approver Relationship Specialty Start Date End Date Melissa Pierce MD PCP - General Family Medicine 08/25/13 Mike Hughes MD [address] [place] [address] Physician Hematology/Oncology 06/19/23 Georgina Kumar, MAMTA [address] [place] [address] Specialty Motorcycle Racer Blood and Marrow Transplant 08/06/23 Brianna Pham MD [id number] [place], [place] [phone] Transplant Physician Blood and Marrow Transplant 08/06/23 Sofya Schmid RN Specialty Motorcycle Racer Hematology/Oncology 08/09/23 Fidelina Shearer LISW [address] [place] [address] Blood and Marrow Transplant 08/09/23 Claim Approver Relationship Specialty Start Date End Date Melissa Pierce MD PCP - General Family Medicine 08/25/13 Mike Hughes MD [address] [place], [place] [id number] Physician Hematology/Oncology 06/19/23 [place] [address] [place] [address] Specialty Motorcycle Racer Blood and Marrow Transplant 08/06/23 [place] [address] [place] [address] Transplant Physician Blood and Marrow Transplant 08/06/23 Sofya Schmid RN Specialty Motorcycle Racer Hematology/Oncology 08/09/23 Fidelina Shearer LISW [address] [place] [address] Blood and Marrow Transplant 08/09/23 Claim Approver Relationship Specialty Start Date End Date Melissa Pierce MD PCP - General Family Medicine 08/25/13 Mike Hughes MD [address] [place] [address] Physician Hematology/Oncology 06/19/23 Georgina Kumar, MAMTA [address] [place] [address] Specialty Motorcycle Racer Blood and Marrow Transplant 08/06/23 [place] [address] [place] [address] Transplant Physician Blood and Marrow Transplant 08/06/23 Sofya Schmid RN Specialty Motorcycle Racer Hematology/Oncology 08/09/23 Fidelina Shearer LISW [address] [place], [place] [id number] Blood and Marrow Transplant 08/09/23 Claim Approver Relationship Specialty Start Date End Date Melissa Pierce MD PCP - General Family Medicine 08/25/13 Mike Hughes MD [address] [place], [place] [id number] Physician Hematology/Oncology 06/19/23 Dania Hill, RN Specialty Motorcycle Racer Hematology/Oncology 06/28/23 08/08/23 Georgina Kumar, MAMTA [address] [place] [address] Specialty Motorcycle Racer Blood and Marrow Transplant 08/06/23 [place] [address] [place], [place] [id number] Transplant Physician Blood and Marrow Transplant 08/06/23 Sofya Schmid RN Specialty Motorcycle Racer Hematology/Oncology 08/09/23 Fidelina Shearer LISW [address] [place], [place] [id number] Blood and Marrow Transplant 08/09/23 Claim Approver Relationship Specialty Start Date End Date Melissa Pierce MD PCP - General Family Medicine 08/25/13 Mike Hughes MD [address] [place], [place] [id number] Physician Hematology/Oncology 06/19/23 [place] [address] [place] [address] Specialty Motorcycle Racer Blood and Marrow Transplant 08/06/23 [place] [address] [place] [address] Transplant Physician Blood and Marrow Transplant 08/06/23 Sofya Schmid RN Specialty Motorcycle Racer Hematology/Oncology 08/09/23 Fidelina Shearer LISW [address] [place] [address] Blood and Marrow Transplant 08/09/23 Claim Approver Relationship Specialty Start Date End Date Melissa Pierce MD PCP - General Family Medicine 08/25/13 Mike Hughes MD [address] [place] [address] Physician Hematology/Oncology 06/19/23 [place] [address] [place] [address] Specialty Motorcycle Racer Blood and Marrow Transplant 08/06/23 [place] [address] [place] [address] Transplant Physician Blood and Marrow Transplant 08/06/23 Sofya Schmid RN Specialty Motorcycle Racer Hematology/Oncology 08/09/23 Fidelina Shearer, JAQUELIN [address] [place] [id number] Blood and Marrow Transplant 08/09/23 Claim Approver Relationship Specialty Start Date End Date Wonderly, Melissa Banuelos MD [address] [place] [address] PCP - General Family Medicine 02/26/23 Claim Approver Relationship Specialty Start Date End Date Wonderly, Melissa Banuelos MD [address] [facility] [place] [address] PCP - General Family Medicine 02/26/23 Claim Approver Relationship Specialty Start Date End Date WonderMelissa conrad MD [address] [place] [address] PCP - General Family Medicine 02/26/23 Claim Approver Relationship Specialty Start Date End Date Wonderly, Melissa Banuelos MD [address] [place] [address] PCP - General Family Medicine 02/26/23 Source Comments (unrecognize d section and content) In the event this informatio n is protected by the Federal Confidentiality of Alcohol and Drug Abuse Patient Records regulations: The Federal rules restrict any use of the information to criminally investigate or prosecute any alcohol or drug abuse patient.[facility] Center[facility] the event this information is protected by the Federal Confidentiality of Alcohol and Drug Abuse Patient Records regulations: The Federal rules restrict any use of the information to criminally investigate or prosecute any alcohol or drug abuse patient.[facility] CenterIn the event this information is protected by the Federal Confidentiality of Alcohol and Drug Abuse Patient Records regulations: The Federal rules restrict any use of the information to criminally investigate or prosecute any alcohol or drug abuse patient.[facility] CenterIn the event this information is protected by the Federal Confidentiality of Alcohol and Drug Abuse Patient Records regulations: The Federal rules restrict any use of the information to criminally investigate or prosecute any alcohol or drug abuse patient.[facility] CenterIn the event this information is protected by the Federal Confidentiality of Alcohol and Drug Abuse Patient Records regulations: The Federal rules restrict any use of the information to criminally investigate or prosecute any alcohol or drug abuse patient.[facility] CenterIn the event this information is protected by the Federal Confidentiality of Alcohol and Drug Abuse Patient Records regulations: The Federal rules restrict any use of the information to criminally investigate or prosecute any alcohol or drug abuse patient.[facility] CenterIn the event this information is protected by the Federal Confidentiality of Alcohol and Drug Abuse Patient Records regulations: The Federal rules restrict any use of the information to criminally investigate or prosecute any alcohol or drug abuse patient.[facility] CenterIn the event this information is protected by the Federal Confidentiality of Alcohol and Drug Abuse Patient Records regulations: The Federal rules restrict any use of the information to criminally investigate or prosecute any alcohol or drug abuse patient.[facility] CenterIn the event this information is protected by the Federal Confidentiality of Alcohol and Drug Abuse Patient Records regulations: The Federal rules restrict any use of the information to criminally investigate or prosecute any alcohol or drug abuse patient.[facility] CenterIn the event this information is protected by the Federal Confidentiality of Alcohol and Drug Abuse Patient Records regulations: The Federal rules restrict any use of the information to criminally investigate or prosecute any alcohol or drug abuse patient.[facility] CenterIn the event this information is protected by the Federal Confidentiality of Alcohol and Drug Abuse Patient Records regulations: The Federal rules restrict any use of the information to criminally investigate or prosecute any alcohol or drug abuse patient.[facility] CenterIn the event this information is protected by the Federal Confidentiality of Alcohol and Drug Abuse Patient Records regulations: The Federal rules restrict any use of the information to criminally investigate or prosecute any alcohol or drug abuse patient.[facility] CenterIn the event this information is protected by the Federal Confidentiality of Alcohol and Drug Abuse Patient Records regulations: The Federal rules restrict any use of the information to criminally investigate or prosecute any alcohol or drug abuse patient.[facility] CenterIn the event this information is protected by the Federal Confidentiality of Alcohol and Drug Abuse Patient Records regulations: The Federal rules restrict any use of the information to criminally investigate or prosecute any alcohol or drug abuse patient.[facility] CenterIn the event this information is protected by the Federal Confidentiality of Alcohol and Drug Abuse Patient Records regulations: The Federal rules restrict any use of the information to criminally investigate or prosecute any alcohol or drug abuse patient.[facility] CenterIn the event this information is protected by the Federal Confidentiality of Alcohol and Drug Abuse Patient Records regulations: The Federal rules restrict any use of the information to criminally investigate or prosecute any alcohol or drug abuse patient.[facility] CenterIn the event this information is protected by the Federal Confidentiality of Alcohol and Drug Abuse Patient Records regulations: The Federal rules restrict any use of the information to criminally investigate or prosecute any alcohol or drug abuse patient.[facility] CenterIn the event this information is protected by the Federal Confidentiality of Alcohol and Drug Abuse Patient Records regulations: The Federal rules restrict any use of the information to criminally investigate or prosecute any alcohol or drug abuse patient.[facility] CenterIn the event this information is protected by the Federal Confidentiality of Alcohol and Drug Abuse Patient Records regulations: The Federal rules restrict any use of the information to criminally investigate or prosecute any alcohol or drug abuse patient.[facility] CenterIn the event this information is protected by the Federal Confidentiality of Alcohol and Drug Abuse Patient Records regulations: The Federal rules restrict any use of the information to criminally investigate or prosecute any alcohol or drug abuse patient.[facility] CenterIn the event this information is protected by the Federal Confidentiality of Alcohol and Drug Abuse Patient Records regulations: The Federal rules restrict any use of the information to criminally investigate or prosecute any alcohol or drug abuse patient.[facility] CenterIn the event this information is protected by the [facility] Confidentiality of Alcohol and Drug Abuse Patient Records regulations: The Federal rules restrict any use of the information to criminally investigate or prosecute any alcohol or drug abuse patient.[facility] CenterIn the event this information is protected by the Federal Confidentiality of Alcohol and Drug Abuse Patient Records regulations: The Federal rules restrict any use of the information to criminally investigate or prosecute any alcohol or drug abuse patient.[facility] FOR RECORDS PERTAINING TO PATIENTS WHO ARE [...] BE BASED ON THE PRIMARY CLINICAL RECORDS. [facility]. provides no warranty or guarantee of the accuracy or completeness of information in this document.
--- OUTSIDE RECORDS SUMMARY | 2023-10-18 08:23 | XMS_ITS | CCD ---
Author Name Unknown Address [address] [place] [address] Organization [facility] Care Team Providers Care Telephone Sales Representative Name Role Phone MELISSA PIERCE Primary Care Unavailable MELISSA PIERCE Consulting Unavailable ELE PANIAGUA Attending Brenna vailable WONDERCECELIA, DR MELISSA Banuelos Attending Unavailable WONDERCECELIA, DR MELISSA Banuelos Consulting Unavailable DR MELISSA PIERCE Primary Care Unavailable DR MELISSA PIERCE Admitting Unavailable Melissa Pierce MD Primary Care Provider MARTHA MALIK I Admitting Unavailable MARTHA MALIK I Attending Unavailable MELISSA PIERCE Primary Care Unavailable Melissa Pierce MD Primary Care Provider [phone] Saul DANG, Mike Joseph Unavailable Dania Hill RN Unavailable Unavailable Georgina Kumar RN Unavailable [phone] Brianna Pham MD Unavailable [phone] Sofya Schmid RN Unavailable Fidelina Dominguez Unavailable [phone] Liz OLEARY, Dania Unavailable Unavailable Melissa Pierce MD Primary Care Provider MELISSA PIERCE Attending Unavailable CHARITY PAGE Attending Unavailable ANANDA MARIEE Attending Unavailable ANANDA MARIEE Admitting Unavailable [facility] Primary Care Unavailable [facility] Primary Care Unavailable BISHOP, SHERRY Referring Unavailable [facility] Primary Care Unavailable BISHOP, SHERRY Referring Unavailable [facility] Primary Care Unavailable MIKE HUGHES Referring Unavailable MIKE HUGHES Attending Unavailable WONDERLY, [facility] Primary Care Unavailable KALAYCIO, BETH Referring Unavailable [facility]ONDER[facility], [facility] Primary Care Unavailable HUGHES, MIKE JOSEPH Attending Unavailable WONDERLY, [facility] Unavailable HUGHES, AKRITI JOSEPH Referring Unavailable WONDERLY, [facility] Unavailable LJ LIZ Attending Unavailable LJ LIZ Admitting Unavailable WONDER[facility], [facility] Primary Care Unavailable KALWILLIAMCIO, BETH Referring Unavailable CHARLENE MARTINEZ Attending Unavailable CHARLENE MARTINEZ Admitting Unavailable HUGHES, ORALIARILYLA JOSEPH Attending Unavailable WONDERLY, [facility] Primary Care Unavailable WONDERLY, [facility] Primary Care Unavailable HUGHES, ORALIARILYLA MARIEPTA Attending Unavailable WONDERLY, [facility] Unavailable HUGHES, ORALIARILYLA MARIEPTA Attending Unavailable WONDERLY, [facility] Unavailable HUGHES, ORALIARITI JOSEPH Attending Unavailable WONDERLY, [facility] Unavailable [facility], [facility] Referring Unavailable SMITH HDEZ Admitting UnavailCINDI Ordoñez Attending Unavailable ZAID HERNANDEZ Attending Unavailable ZAID HERNANDEZ Admitting Unavailable WONDERLY, [facility] Unavailable WERO ABDI WRIGHT Referring Unavailable WONDERLY, [facility] Unavailable HUGHES, ORALIARILYLA MARIEPTA Attending Unavailable WONDERLY, [facility] Unavailable HUGHES, ORALIARILYLA MARIEPTA Attending Unavailable WONDERLY, [facility] Unavailable BISHOP, SHRERY Referring Unavailable HUGHES, ORALIARILYLA MARIEPTA Attending Unavailable WONDERLY, [facility] Unavailable BRIANNA PHAM Attending Unavailable BISHOP, SHERRY Referring Unavailable Allergies Allergy Classification Reported Allergen(s) Allergy Type Date of Onset Reaction(s) Facility (20 sources) Acetaminophen / HYDROcodone; Translations: [HYDROCODONE-ACET AMINOPHEN] Drug Allergy 4 Other (See Comments), Mental Status Change, Other [facility] (1 source) Acetaminophen / HYDROcodone; Translations: [Vicodin] Drug Allergy [facility] Repository (4 sources) Melatonin Drug [...] Comment on above: Take 1 capsule by [facility] once daily. omeprazole 20 mg delayed release [...] Facility BONE MARROW ANALYSISon 10-11 CASE REPORT [facility] Comment on above: Order Comment: Elvia escobar Type: BONE MARROW SPECIMEN Ordering Facility: [facility] Address: [address] [place] [address] Result Comment: Bone Marrow Pathology Report Case: [id number] Authorizing Provider: Mike Hughes MD Collected: 10/11/2023 12:06 PM Ordering Location: Hematology/Oncology Received: 10/11/2023 01:05 PM Pathologist: Fabricio Hernandez MD, PhD Specimens: A) - BONE MARROW ASPIRATE RIGHT POSTERIOR ILIAC CREST B) - BONE MARROW BIOPSY RIGHT POSTERIOR ILIAC CREST C) - BONE MARROW CLOT RIGHT POSTERIOR ILIAC CREST D) - Peripheral blood smear Performed By: #### B MRT #### [facility] CLIA [id number] [address] [place] [address] [place] DIAGNOSIS COMMENT [facility] Comment on above: Order Comment: Elvia escobar Type: BONE MARROW SPECIMEN Ordering Facility: [facility] Address: [address] [place] [address] Result Comment: The patient has a history of an acute myeloid leukemia with mutated TP53, therapy related (see report [id number]). The morphologic findings show persistent/recurrent disease with [...] been determined by the performing laboratory within [facility]???[facility] Pathology and Laboratory Medicine [place] ([facility], [facility], [facility], [facility], [facility], [facility], or [facility]) in a manner consistent with CLIA requirements. One or more of these tests have not been cleared or approved by the FDA. [facility] is regulated under CLIA as qualified to perform high-complexity testing. These tests are used for clinical purposes. They should not be regarded as investigational or for research. Positive and negative controls stain appropriately. Performed By: #### B MRT #### [facility] CLIA [id number] [address] [place] [address] OF [facility] FINAL DIAGNOSIS Normal [facility] Comment on above: Order Comment: Speci men Type: BONE MARROW SPECIMEN Ordering Facility: [facility] Address: [address] [place] [address] Result Comment: A-C. Bone marrow, aspirate smear and core biopsy, with clot section: - Persistent/recurrent acute myeloid leukemia with approximately 30% blasts. - Variably cellular bone marrow (overall 10%) with decreased trilineage hematopoiesis. - Stainable iron present. - See comment. D. Peripheral blood smear: - Pancytopenia. [facility] 10/12/2023 Performed By: #### B MRT #### [facility] CLIA [id number] [address] [place] [address] STATES OF [facility] FINAL PERFORMING LAB [facility] Comment on above: Order Comment: Speci men Type: BONE MARROW SPECIMEN Ordering Facility: [facility] Address: [address] [place] [address] Result Comment: Diag nostic interpretation performed at [facility], [address] [place] [address] CLIA# [id number] Process Plant Operator: Boris Wood M.D. Performed By: #### B MRT #### [facility] CLIA [id number] [address] [place] [address] [place] GROSS DESCRIPTION Normal [facility] Comment on above: Order Comment: Speci men Type: BONE MARROW SPECIMEN Ordering Facility: [facility] Address: [address] [place] [address] Result Comment: A. B ONE MARROW ASPIRATE [...] for light microscopy. Gross examination performed at [facility], [address] [place] [address] October 11, 2023 7:12 PM Performed By: #### B MRT #### [facility] CLIA [id number] [address] [place] [address] [place] MICROSCOPIC DESCRIPTION Normal [facility] Comment on above: Order Comment: Speci men Type: BONE MARROW SPECIMEN Ordering Facility: [facility] Address: [address] [place] [address] Result Comment: GENNY PHERAL BLOOD: CBC (10/11/2023 [...] pending. Performed By: #### B MRT #### [facility] CLIA [id number] [address] [place] [address] [place] CBC W Auto Differential pane l (Bld)on 10-11-2023 Anisocytosis Ql (Bld) Present Normal [facility] Comment on above: Order Comment: Specmaria eugenia escobar Type: BLOOD SPECIMEN Ordering Facility: [facility] Address: [address] [place] [address] Performed By: #### 5 7021-8 #### [facility] CLIA [id number] [address] [place] [address] [place] Basophils (Bld) [#/Vol] Normal [facility] Comment on above: Order Comment: Elvia escobar Type: BLOOD SPECIMEN Ordering Facility: [facility] Address: [address] [place] [address] Result Comment: Too Few Cells To Do Differential. Performed By: #### 5 7021-8 #### [facility] CLIA [id number] [place] [address] [place] Basophils/100 WBC (Bld) [facility] Comment on above: Order Comment: Speci men Type: BLOOD SPECIMEN Ordering Facility: [facility] Address: [address] [place] [address] Result Comment: Too Few Cells To Do Differential. Performed By: #### 5 7021-8 #### [facility] CLIA [id number] [place] [address] [place] Dacrocytes LM Ql (Bld) Few [facility] Comment on above: Order Comment: Speci men Type: BLOOD SPECIMEN Ordering Facility: [facility] Address: [address] [place] [address] Performed By: #### 5 7021-8 #### [facility] CLIA [id number] [place] [address] [place] Differential cell count method Nom (Bld) Auto [facility] Comment on above: Order Comment: Speci men Type: BLOOD SPECIMEN Ordering Facility: [facility] Address: [address] [place] [address] Performed By: #### 5 7021-8 #### [facility] CLIA [id number] [place] [address] [place] Eosinophils (Bld) [#/Vol] [facility] Comment on above: Order Comment: Speci men Type: BLOOD SPECIMEN Ordering Facility: [facility] Address: [address] [place] [address] Result Comment: Too Few Cells To Do Differential. Performed By: #### 5 7021-8 #### [facility] CLIA [id number] [place] [address] [place] Eosinophils/100 WBC (Bld) [facility] Comment on above: Order Comment: Speci men Type: BLOOD SPECIMEN Ordering Facility: [facility] Address: [address] [place] [address] Result Comment: Too Few Cells To Do Differential. Performed By: #### 5 7021-8 #### [facility] CLIA [id number] [place] [address] [place] Erythrocyte distribution width (RBC) [Ratio] 15.2 % High 11.5-15.0 [facility] Comment on above: Order Comment: Speci men Type: BLOOD SPECIMEN Ordering Facility: [facility] Address: [address] [place] [address] Performed By: #### 5 7021-8 #### [facility] CLIA [id number] [place] [address] [place] Hematocrit (Bld) [Volume fraction] 29.4 % Low 36.0-46.0 [facility] Comment on above: Order Comment: Speci men Type: BLOOD SPECIMEN Ordering Facility: [facility] Address: [address] [place] [address] Performed By: #### 5 7021-8 #### [facility] CLIA [id number] [place] [address] [place] Hemoglobin (Bld) [Mass/Vol] 10.1 g/dL Low 11.5-15.5 [facility] Comment on above: Order Comment: Speci men Type: BLOOD SPECIMEN Ordering Facility: [facility] Address: [address] [place] [address] Performed By: #### 5 7021-8 #### [facility] CLIA [id number] [place] [address] [place] Immature granulocytes (Bld) [#/Vol] Normal [facility] Comment on above: Order Comment: Speci men Type: BLOOD SPECIMEN Ordering Facility: [facility] Address: [address] [place] [address] Result Comment: Too Few Cells To Do Differential. Performed By: #### 5 7021-8 #### [facility] CLIA [id number] [place] [address] [place] Immature granulocytes/100 WBC (Bld) Normal [facility] Comment on above: Order Comment: Speci men Type: BLOOD SPECIMEN Ordering Facility: [facility] Address: [address] [place] [address] Result Comment: Too Few Cells To Do Differential. Performed By: #### 5 7021-8 #### [facility] CLIA [id number] [place] [address] [place] Lymphocytes (Bld) [#/Vol] Normal [facility] Comment on above: Order Comment: Speci men Type: BLOOD SPECIMEN Ordering Facility: [facility] Address: [address] [place] [address] Result Comment: Too Few Cells To Do Differential. Performed By: #### 5 7021-8 #### [facility] CLIA [id number] [place] [address] [place] [facility] Lymphocytes/100 WBC (Bld) Normal [facility] Comment on above: Order Comment: Speci men Type: BLOOD SPECIMEN Ordering Facility: [facility] Address: [address] [place] [address] Result Comment: Too Few Cells To Do Differential. Performed By: #### 5 7021-8 #### [facility] CLIA [id number] [place] [address] [place] MCH (RBC) [Entitic mass] 30.5 pg Normal 26.0-34.0 [facility] Comment on above: Order Comment: Speci men Type: BLOOD SPECIMEN Ordering Facility: [facility] Address: [address] [place] [address] Performed By: #### 5 7021-8 #### [facility] CLIA [id number] [place] [address] [place] MCHC (RBC) [Mass/Vol] 34.4 g/dL Normal 30.5-36.0 [facility] Comment on above: Order Comment: Speci men Type: BLOOD SPECIMEN Ordering Facility: [facility] Address: [address] [place] [address] Performed By: #### 5 7021-8 #### [facility] CLIA [id number] [place] [address] [place] MCV (RBC) [Entitic vol] 88.8 fL Normal 80.0-100.0 [facility] Comment on above: Order Comment: Speci men Type: BLOOD SPECIMEN Ordering Facility: [facility] Address: [address] [place] [address] Performed By: #### 5 7021-8 #### [facility] CLIA [id number] [place] [address] [place] Monocytes (Bld) [#/Vol] Normal [facility] Comment on above: Order Comment: Speci men Type: BLOOD SPECIMEN Ordering Facility: [facility] Address: [address] [place] [address] Result Comment: Too Few Cells To Do Differential. Performed By: #### 5 7021-8 #### [facility] CLIA [id number] [place] [address] [place] Monocytes/100 WBC (Bld) Normal [facility] Comment on above: Order Comment: Speci men Type: BLOOD SPECIMEN Ordering Facility: [facility] Address: [address] [place] [address] Result Comment: Too Few Cells To Do Differential. Performed By: #### 5 7021-8 #### [facility] CLIA [id number] [place] [address] [place] Neutrophils (Bld) [#/Vol] Normal [facility] Comment on above: Order Comment: Speci men Type: BLOOD SPECIMEN Ordering Facility: [facility] Address: [address] [place] [address] Result Comment: Too Few Cells To Do Differential. Performed By: #### 5 7021-8 #### [facility] CLIA [id number] [place] [address] [place] Neutrophils/100 WBC (Bld) Normal [facility] Comment on above: Order Comment: Speci men Type: BLOOD SPECIMEN Ordering Facility: [facility] Address: [address] [place] [address] Result Comment: Too Few Cells To Do Differential. Performed By: #### 5 7021-8 #### [facility] CLIA [id number] [place] [address] [place] Nucleated RBC (Bld) [#/Vol] 10*3/uL Normal <0.01 [facility] Comment on above: Order Comment: Speci men Type: BLOOD SPECIMEN Ordering Facility: [facility] Address: [address] [place] [address] Performed By: #### 5 7021-8 #### [facility] CLIA [id number] [place] [address] [place] Nucleated RBC/100 WBC (Bld) [Ratio] 0.0 /100 WBC Normal [facility] Comment on above: Order Comment: Speci men Type: BLOOD SPECIMEN Ordering Facility: [facility] Address: [address] [place] [address] Performed By: #### 5 7021-8 #### [facility] CLIA [id number] [place] [address] [place] Platelet mean volume (Bld) [Entitic vol] 10.9 fL Normal 9.0-12.7 [facility] Comment on above: Order Comment: Speci men Type: BLOOD SPECIMEN Ordering Facility: [facility] Address: [address] [place] [address] Performed By: #### 5 7021-8 #### [facility] CLIA [id number] [place] [address] [place] Platelets (Bld) [#/Vol] 16 10*3/uL Low 150-400 [facility] Comment on above: Order Comment: Speci men Type: BLOOD SPECIMEN Ordering Facility: [facility] Address: [address] [place] [address] Result Comment: Resu lts checked and verified.No clot detected. Performed By: #### 5 7021-8 #### [facility] CLIA [id number] [place] [address] [place] Platelets Estimate (Bld) [#/Vol] Decreased Normal [facility] Comment on above: Order Comment: Speci men Type: BLOOD SPECIMEN Ordering Facility: [facility] Address: [address] [place] [address] Performed By: #### 5 7021-8 #### [facility] CLIA [id number] [place] [address] [place] [facility] RBC (Bld) [#/Vol] 3.31 10*6/uL Low 3.90-5.20 [facility] Comment on above: Order Comment: Speci men Type: BLOOD SPECIMEN Ordering Facility: [facility] Address: [address] [place] [address] Performed By: #### 5 7021-8 #### [facility] CLIA [id number] [address] [place] [facility] RBC FRAGMENTS Few Abnormal None Seen [facility] Comment on above: Order Comment: Speci men Type: BLOOD SPECIMEN Ordering Facility: [facility] Address: [address] [place] [address] Performed By: #### 5 7021-8 #### [facility] CLIA [id number] [address] [place]ORPH Reviewed: see result s of individual morphologies Normal [facility] Comment on above: Order Comment: Speci men Type: BLOOD SPECIMEN Ordering Facility: [facility] Address: [address] [place] [address] Performed By: #### 5 7021-8 #### [facility] CLIA [id number] [place] [address] [place] WBC (Bld) [#/Vol] 0.41 10*3/uL Low 3.70-11.00 [facility] Comment on above: Order Comment: Speci men Type: BLOOD SPECIMEN Ordering Facility: [facility] Address: [address] [place] [address] Result Comment: Too Few Cells To Do Differential Performed By: #### 5 7021-8 #### [facility] CLIA [id number] [place] [address] [place] CBC W Ordered Manual Differe ntial panel (Bld)on 10-11-2023 ANISOCYTOSIS Present Normal [facility] Comment on above: Order Comment: Speci men Type: BLOOD SPECIMEN Ordering Facility: [facility] Address: [address] [place] [address] Performed By: #### 5 7782-5, STFREV #### [facility] CLIA [id number] [address] [place] [address] [place] Basophils (Bld) [#/Vol] Normal [facility] Comment on above: Order Comment: Speci men Type: BLOOD SPECIMEN Ordering Facility: [facility] Address: [address] [place] [address] Result Comment: Too few cells to do differential. Performed By: #### 5 7782-5, STFREV #### [facility] CLIA [id number] [address] [place] [address] [place] Basophils/100 WBC (Bld) Normal [facility] Comment on above: Order Comment: Speci men Type: BLOOD SPECIMEN Ordering Facility: [facility] Address: [address] [place] [address] Result Comment: Too few cells to do differential. Performed By: #### 5 7782-5, STFREV #### [facility] CLIA [id number] [address] [place] [address] [place] Dacrocytes LM Ql (Bld) Few Normal [facility] Comment on above: Order Comment: Speci men Type: BLOOD SPECIMEN Ordering Facility: [facility] Address: [address] [place] [address] Performed By: #### 5 7782-5, STFREV #### [facility] CLIA [id number] [address] [place] [address] [place] Eosinophils (Bld) [#/Vol] [facility] Comment on above: Order Comment: Speci men Type: BLOOD SPECIMEN Ordering Facility: [facility] Address: [address] [place] [address] Result Comment: Too few cells to do differential. Performed By: #### 5 7782-5, STFREV #### [facility] CLIA [id number] [address] [place] [address] [place] Eosinophils/100 WBC (Bld) Normal [facility] Comment on above: Order Comment: Speci men Type: BLOOD SPECIMEN Ordering Facility: [facility] Address: [address] [place] [address] Result Comment: Too few cells to do differential. Performed By: #### 5 7782-5, STFREV #### [facility] CLIA [id number] [address] [place] [address] [place] Erythrocyte distribution width (RBC) [Ratio] 15.2 % High 11.5-15.0 [facility] Comment on above: Order Comment: Speci men Type: BLOOD SPECIMEN Ordering Facility: [facility] Address: [address] [place] [address] Performed By: #### 5 7782-5, STFREV #### [facility] CLIA [id number] [address] [place] [address] [place] Hematocrit (Bld) [Volume fraction] 29.4 % Low 36.0-46.0 [facility] Comment on above: Order Comment: Speci men Type: BLOOD SPECIMEN Ordering Facility: [facility] Address: [address] [place] [address] Performed By: #### 5 7782-5, STFREV #### [facility] CLIA [id number] [address] [place] [address] [place] Hemoglobin (Bld) [Mass/Vol] 10.1 g/dL Low 11.5-15.5 [facility] Comment on above: Order Comment: Speci men Type: BLOOD SPECIMEN Ordering Facility: [facility] Address: [address] [place] [address] Performed By: #### 5 7782-5, STFREV #### [facility] CLIA [id number] [address] [place] [address] [place] Immature granulocytes (Bld) [#/Vol] Normal [facility] Comment on above: Order Comment: Speci men Type: BLOOD SPECIMEN Ordering Facility: [facility] Address: [address] [place] [address] Result Comment: Too few cells to do differential. Performed By: #### 5 7782-5, STFREV #### [facility] CLIA [id number] [address] [place] [address] [place] Immature granulocytes/100 WBC (Bld) Normal [facility] Comment on above: Order Comment: Speci men Type: BLOOD SPECIMEN Ordering Facility: [facility] Address: [address] [place] [address] Result Comment: Too few cells to do differential. Performed By: #### 5 7782-5, STFREV #### [facility] CLIA [id number] [address] [place] [address] [place] Lymphocytes (Bld) [#/Vol] Normal [facility] Comment on above: Order Comment: Speci men Type: BLOOD SPECIMEN Ordering Facility: [facility] Address: [address] [place] [address] Result Comment: Too few cells to do differential. Performed By: #### 5 7782-5, STFREV #### [facility] CLIA [id number] [address] [place] [address] [place] Lymphocytes/100 WBC (Bld) Normal [facility] Comment on above: Order Comment: Speci men Type: BLOOD SPECIMEN Ordering Facility: [facility] Address: [address] [place] [address] Result Comment: Too few cells to do differential. Performed By: #### 5 7782-5, STFREV #### [facility] CLIA [id number] [address] [place] [address] [place] MCH (RBC) [Entitic mass] 30.5 pg Normal 26.0-34.0 [facility] Comment on above: Order Comment: Speci men Type: BLOOD SPECIMEN Ordering Facility: [facility] Address: [address] [place] [address] Performed By: #### 5 7782-5, STFRBHAVIN #### [facility] CLIA [id number] [address] [place] [address] [place] MCHC (RBC) [Mass/Vol] 34.4 g/dL Normal 30.5-36.0 [facility] Comment on above: Order Comment: Speci men Type: BLOOD SPECIMEN Ordering Facility: [facility] Address: [address] [place] [address] Performed By: #### 5 7782-5, STJAVI #### [facility] CLIA [id number] [address] [place] [address] [place] MCV (RBC) [Entitic vol] 88.8 fL Normal 80.0-100.0 [facility] Comment on above: Order Comment: Speci men Type: BLOOD SPECIMEN Ordering Facility: [facility] Address: [address] [place] [address] Performed By: #### 5 7782-5, STFREV #### [facility] CLIA [id number] [address] [place] [address] [place] Monocytes (Bld) [#/Vol] Normal [facility] Comment on above: Order Comment: Speci men Type: BLOOD SPECIMEN Ordering Facility: [facility] Address: [address] [place] [address] Result Comment: Too few cells to do differential. Performed By: #### 5 7782-5, STFREV #### [facility] CLIA [id number] [address] [place] [address] [place] Monocytes/100 WBC (Bld) Normal [facility] Comment on above: Order Comment: Speci men Type: BLOOD SPECIMEN Ordering Facility: [facility] Address: [address] [place] [address] Result Comment: Too few cells to do differential. Performed By: #### 5 7782-5, STFREV #### [facility] CLIA [id number] [address] [place] [address] [place] Neutrophils (Bld) [#/Vol] Normal [facility] Comment on above: Order Comment: Speci men Type: BLOOD SPECIMEN Ordering Facility: [facility] Address: [address] [place] [address] Result Comment: Too few cells to do differential. Performed By: #### 5 7782-5, STFREV #### [facility] CLIA [id number] [address] [place] [address] [place] Neutrophils/100 WBC (Bld) Normal [facility] Comment on above: Order Comment: Speci men Type: BLOOD SPECIMEN Ordering Facility: [facility] Address: [address] [place] [address] Result Comment: Too few cells to do differential. Performed By: #### 5 7782-5, STFREV #### [facility] CLIA [id number] [address] [place] [address] [place] Platelet mean volume (Bld) [Entitic vol] 10.9 fL Normal 9.0-12.7 [facility] Comment on above: Order Comment: Speci men Type: BLOOD SPECIMEN Ordering Facility: [facility] Address: [address] [place] [address] Performed By: #### 5 7782-5, STFREV #### [facility] CLIA [id number] [address] [place] [address] [place] Platelets (Bld) [#/Vol] 16 10*3/uL Low 150-400 [facility] Comment on above: Order Comment: Speci men Type: BLOOD SPECIMEN Ordering Facility: [facility] Address: [address] [place] [address] Performed By: #### 5 7782-5, STFREV #### [facility] CLIA [id number] [address] [place] [address] [place] Platelets Estimate (Bld) [#/Vol] Decreased Normal [facility] Comment on above: Order Comment: Speci men Type: BLOOD SPECIMEN Ordering Facility: [facility] Address: [address] [place] [address] Performed By: #### 5 7782-5, STFREV #### [facility] CLIA [id number] [address] [place] [address] [place] RBC (Bld) [#/Vol] 3.31 10*6/uL Low 3.90-5.20 [facility] Comment on above: Order Comment: Speci men Type: BLOOD SPECIMEN Ordering Facility: [facility] Address: [address] [place] [address] Performed By: #### 5 7782-5, STFREV #### [facility] CLIA [id number] [address] [place] [address] [place] RBC FRAGMENTS Few Abnormal None Seen [facility] Comment on above: Order Comment: Speci men Type: BLOOD SPECIMEN Ordering Facility: [facility] Address: [address] [place] [address] Performed By: #### 5 7782-5, STFREV #### [facility] CLIA [id number] [address] [place] [address] [place] RED CELL MORPH Reviewed: see result s of individual morphologies Normal [facility] Comment on above: Order Comment: Speci men Type: BLOOD SPECIMEN Ordering Facility: [facility] Address: [address] [place] [address] Performed By: #### 5 7782-5, STFREV #### [facility] CLIA [id number] [address] [place] [address] [place] WBC (Bld) [#/Vol] 0.41 10*3/uL Low 3.70-11.00 [facility] Comment on above: Order Comment: Speci men Type: BLOOD SPECIMEN Ordering Facility: [facility] Address: [address] [place] [address] Performed By: #### 5 7782-5, RAMON #### [facility] CLIA [id number] [address] [facility] [place] [place] [address] [place] C[facility] CBC W [...] [facility] NRBC/100 WBC BLD-RTO 0.0 /100 WBC [facility] PLATELET # BLD AUTO 16 Low [facility] Comment on above: Results checked and verified.No clot detected. [facility] PMV BLD AUTO 10.9 fL 9.0 - 12.7 fL [facility] RBC FRAGMENTS Few Abnormal None Seen [facility] CCF RED CELL MORPH Reviewed: see results of individual morphologies [facility] WBC # BLD AUTO 0.41 Low [facility] Comment on above: Too Few Cells To Do Differential Erythrocyte distribution width (RBC) [Ratio] 15.2 % High 11.5 - 15.0 % [facility] Hematocrit (Bld) [Volume fraction] 29.4 % Low 36.0 - 46.0 % [facility] Hemoglobin (Bld) [Mass/Vol] 10.1 g/dL Low 11.5 - 15.5 g/dL [facility] IMM GRANULOCYTES # BLD AUTO [facility] Comment on above: Too Few Cells To Do Differential. IMM GRANULOCYTES/LEUK NFR BLD AUTO [facility] Comment on above: Too Few Cells To Do Differential. Interpretation and review of laboratory results Abnormal [facility] MCH (RBC) [Entitic mass] 30.5 pg 26.0 - 34.[address] [facility] MCHC (RBC) [Mass/Vol] 34.4 g/dL 30.5 - 36.0 g/dL [facility] MCV (RBC) [Entitic vol] 88.8 fL 80.0 - 100.[address] [facility] PLATELET # BLD EST Decreased [facility] RBC (Bld) [#/Vol] 3.31 10*6/uL Low 3.90 - 5.20 m/uL [facility] Specimen Type: BLOOD SPECIMEN Ordering Facility: [facility] Address: [address] [place] [address] Original Ordering Provider: ANANDA HUMMEL [facility] CT BIOPSY BONE MARROW (HEMO) on 10-11-2023 CT BIOPSY BONE MARROW (HEMO) * * *Final Report* * * DATE OF EXAM: Oct 11 2023 12:15PM [facility] 2037 - CT BIOPSY BONE MARROW (HEMO) [...] Date/Time: Oct 11 2023 12:36P Dictated by: ANANDA MARIEE MD This examination was interpreted and the report reviewed and electronically signed by: ANANDA MARIEE MD on Oct 11 2023 12:38PM EST [id number] [facility] FLOW CYTOMETRY FOR LEUKEMIA/ LYMPHOMA (FCLL) PERFORMABLEon 10-11-2023 FLOW CYTOMETRY ORDER STATUS A bone marrow sample was received for potential flow cytometry studies. Following morphologic review, flow cytometric studies will be ordered by the hematopathologist if testing is indicated. [facility] Comment on above: Order Comment: Speci men Type: BONE MARROW SPECIMEN Ordering Facility: [facility] Address: [address] [place] [address] Performed By: #### F CLLP #### [facility] CLIA [id number] [address] [place] [address] [place] [address] [place] HISTORY PHYSICALon HISTORY PHYSICAL HNO ID: [id number] Author: JUAN SIMS PA-C Service: Radiology Author Type: Physician Seo Associate Type: H&P Filed: 10/11/2023 08:47 Note Text: [...] auscultation bilate (more content not included)... Normal [facility] PATHOLOGIST INTERPRETATION C BC/DIFFon 10-11-2023 Burner Technician review Pino (Unsp spec) [Interp] Reviewed by Dilan Frazier MD Normal So [facility] Comment on above: Order Comment: Speci men Type: BLOOD SPECIMEN Ordering Facility: [facility] Address: [address] [place], [place] [address] Performed By: #### 5 7782-5, RAMON #### [facility] CLIA [id number] [address] [place] STAFF REVIEW, CBCDIF Normal [facility] Comment on above: Order Comment: Elvia escobar Type: BLOOD SPECIMEN Ordering Facility: [facility] Address: [address] [place] [address] Result Comment: Norm ocytic anemia without polychromasia Leukopenia with absolute neutropenia and lymphopenia Thrombocytopenia Performed By: #### 5 7782-5, STJAVI #### [facility] CLIA [id number] [address] [place] [address] [place] PT panel Coag (PPP)on 2023 INR Coag (PPP) [Relative time] 1.0 {INR} Normal 0.9-1.3 [facility] Comment on above: Order Comment: Elvia escobar Type: BLOOD SPECIMEN Ordering Facility: [facility] Address: [address] [place] [address] Result Comment: Rajwinder min K Antagonist (VKA) [...] [phone] Performed By: #### 3 4528-0 #### [facility] CLIA [id number] [address] [place] PT Coag (PPP) [Time] 11.4 s Normal 9.7-13.0 [facility] Comment on above: Order Comment: Speci men Type: BLOOD SPECIMEN Ordering Facility: [facility] Address: [address] [place] [address] Performed By: #### 3 4528-0 #### [facility] CLIA [id number] [place] [address] [place] TYPE + SCREENon 10-11-2023 ABO O [facility] Comment on above: Order Comment: Speci men Type: BLOOD SPECIMEN Ordering Facility: [facility] Address: [address] [place] [address] Performed By: #### T SCR #### [facility] CLIA [id number] [place] [address] [place] HISTORICAL AB SCR STATUS Negative [facility] Comment on above: Order Comment: Speci men Type: BLOOD SPECIMEN Ordering Facility: [facility] Address: [address] [place] [address] Performed By: #### T SCR #### [facility] CLIA [id number] [place] [address] [place] Rh Nom (Bld) Positive [facility] Comment on above: Order Comment: Speci men Type: BLOOD SPECIMEN Ordering Facility: [facility] Address: [address] [place] [address] Performed By: #### T SCR #### [facility] CLIA [id number] [place] [address] [place] TYPE AND SCREEN EXPIRATION 10/14/2023 23:59 [facility] Comment on above: Order Comment: Speci men Type: BLOOD SPECIMEN Ordering Facility: [facility] Address: [address] [place] [address] Performed By: #### T SCR #### [facility] CLIA [id number] [place] [address] [place] CNPNon 10-03-2023 CNPN Normal [facility] CNPNon 09-28-2023 CNPN Normal [facility] CNPNon 09-25-2023 CNPN Normal [facility] CNPNon 09-19-2023 CNPN Normal [facility] CNPNon 09-13-2023 CNPN Normal [facility] CNSWon 09-13-2023 CNSW Normal [facility] CNPNon 09-06-2023 CNPN Normal [facility] ACUTE LEUKEMIA NGS PANEL, ZEENAT NE MARROWon 08-30-2023 ACUTE LEUK NGS PANEL, BONE MARROW Normal [facility] Comment on above: Order Comment: Order ing Facility: [facility] Address: [address] [place] [address] Result Comment: Acut e Leukemia NGS Panel, Bone MarrowLaboratory Accession Number: [id number]:Please see linked document and/or separate report for full result whenavailable.As reviewed by Leslye Ha MD, PhD Performed By: #### F 3IM, HDMNGS ####[facility] LIMSCLIA [id number] [place] [address] [place] [facility] AML MRD BY FCon 08-30-2023 AML MRD BY FC View results in Scan talia Documents link when available. Normal [facility] Comment on above: Order Comment: Speci men Type: BONE MARROW SPECIMENOrdering Facility: [facility] Address: [address] [place] [address] Performed By: #### A MLMRD ####[facility] MOLECULAR MICROCLIA [id number] [place] [address] BONE MARROW ANALYSISon 08-30 ADDENDUM 1: Normal [facility] Comment on above: Order Comment: Speci men Type: BONE MARROW SPECIMENOrdering Facility: [facility] Address: [address] [place] [address] Result Comment: Markus tional stains were performed [...] Performed By: #### B MRT ####[facility] [id number] [address] ADDENDUM 2: Normal [facility] Comment on above: Order Comment: Speci men Type: BONE MARROW SPECIMENOrdering Facility: [facility] Address: [address] [place] [address] Result Comment: Stai ns were performed on both block B1, as described in the prior addendum, and block C1. The CD34 stain on block C1 shows increased staining, at least 10% of cellularity. 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 Flow cytometry MRD testing performed outside shows an abnormal myeloid blast population comprising ~6% of white cells.WJNX8Mo.R635W, NM_022552.4, c.1903C>TVAF: 17.3%RUNX1p.F40Wfs*14, NM_001754.4, c.119_173del55VAF: 9.4%TP53p.C238Y, NM_000546.5, c.713G>AVAF: 27.7%Addendum electronically signed by Phyllis Montanez MD, PhD on 09/10/2023 at 7:16 PM Performed By: #### B MRT ####[facility] [id number] [address] CASE REPORT Normal [facility] Comment on above: Order Comment: Speci men Type: BONE MARROW SPECIMENOrdering Facility: [facility] Address: [address] [place] [address] Result Comment: Bone Marrow Pathology Report Case: [id number] Provider: Mike Hughes MD Collected: 08/30/2023 09:12 AMOrdering Location: Hematology/Oncology Received: 08/30/2023 09:41 AMPathologist: Phyllis Montanez MD, PhDSpecimens: A) - BONE MARROW ASPIRATE RIGHT POSTERIOR ILIAC CREST B) - BONE MARROW BIOPSY RIGHT POSTERIOR ILIAC CREST C) - BONE MARROW CLOT RIGHT POSTERIOR ILIAC CREST Performed By: #### B MRT ####[facility] [id number] [place] [address] [place] DIAGNOSIS COMMENT Normal [facility] Comment on above: Order Comment: Rochellei luz Type: BONE MARROW SPECIMENOrdering Facility: [facility] Address: [address] [place] [address] Result Comment: The patient is a 68-year-old [...] been determined by the performing laboratory within [facility]???s [facility] [place] ([facility], [facility], [facility], [facility], [facility], [facility], or [facility]) in a manner consistent with CLIA requirements. One or more of these tests have not been cleared or approved by the FDA. [facility] is regulated under CLIA as qualified to perform high-complexity testing. These tests are used for clinical purposes. They should not be regarded as investigational or for research. Positive and negative controls stain appropriately. Performed By: #### B MRT ####[facility] [id number] [place] [address] [place] FINAL DIAGNOSIS Normal [facility] Comment on above: Order Comment: Speci men Type: BONE MARROW SPECIMENOrdering Facility: [facility] Address: [address] [place] [address] Result Comment: A-C. 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 Performed By: #### B MRT ####[facility] LAB[facility] [id number] [address] [place] GROSS DESCRIPTION Normal [facility] Comment on above: Order Comment: Speci men Type: BONE MARROW SPECIMENOrdering Facility: [facility] Address: [address] [place] [address] Result Comment: A. B ONE MARROW ASPIRATE [...] submitted in one cassette.Gross examination performed at [facility], [address] [place] [id number] August 30, 2023 6:48 PM Performed By: #### B MRT ####[facility] LABCLIA [id number] [facility] INCDESK [id number] [address] [place] MICROSCOPIC DESCRIPTION Normal [facility] Comment on above: Order Comment: Speci men Type: BONE MARROW SPECIMENOrdering Facility: [facility] Address: [address] [place] [address] Result Comment: GENNY PHERAL BLOOD: Not providedBONE [...] panel pending. Performed By: #### B MRT ####[facility] LABCLIA [id number] [facility] [id number] [address] [place] BONE MARROW CHROMOSOME ANALo n 08-30-2023 CHROMOSOME BM Normal [facility] Comment on above: Order Comment: Order ing Facility: [facility] Address: [address] [place] [address] Result Comment: Edel knight Accession Number: [id number]: Avila MoorePathologist: Jeet Pathology No: [id number] diagnosis: AMLSpecimen Type: Bone MarrowReceived Date: 08/30/2023Number [...] recommended.As reviewed by Dilan Frazier MDPerformed by [facility] Laboratory Medicine InstituteDivision of Molecular PathologyCytogenetics Lab, [id number] [place], [place] [address]Phone: Toll free: Performed By: #### C HRBM ####[facility] LIMSCLIA [id number] [place] [address] [place] BRIEF OP NOTon 08-30-2023 BRIEF OP NOT Normal [facility] CT ABD/PEL WO IVCONon 2022 CT ABD/PEL WO IVCON Normal [facility] CT BIOPSY BONE MARROW (HEMO) on 08-30-2023 CT BIOPSY BONE MARROW (HEMO) Normal [facility] CT CHEST WO IVCONon 08-30-20 CT CHEST WO IVCON Normal [facility] DNA EXTRACTION BONE MARROW ( BUFFY COAT)on 08-30-2023 DNA EXTRACTION BONE MARROW (BUFFY COAT) Normal [facility] Comment on above: Order Comment: Speci men Type: BONE MARROW SPECIMENOrdering Facility: [facility] Address: [address] [place] [address] Result Comment: This specimen was received and successfully processed for future DNA purification should molecular testing be needed. Specimens will be available for 3 years from date of collection.To order testing on this specimen for [facility] patients, please place an [facility] order for DNA and RNA Clinical Testing ([id number]). To order testing for patients outside of the [facility] system, please request DNA and RNA for Clinical Testing, order code [id number].If additional paperwork is required for testing, please send completed forms via secure email to . Performed By: #### N UCBUF ####[facility] LIMSCLIA [id number] [place] [id number] [place] FLOW CYTOMETRY FOR LEUKEMIA/ LYMPHOMA (FCLL) PERFORMABLEon 08-30-2023 FLOW CYTOMETRY ORDER STATUS See Results in chart under F case ID Normal [facility] Comment on above: Order Comment: Speci men Type: BONE MARROW SPECIMENOrdering Facility: [facility] Address: [address] [place] [address] Performed By: #### F CLLP, FCLLRFLX ####[facility] LABCLIA [id number] [place] [address] [place] FLOW CYTOMETRY FOR LEUKEMIA/ LYMPHOMA (FCLL) REFLEXon 08-30-2023 DIAGNOSIS COMMENT Normal [facility] Comment on above: Order Comment: Speci men Type: BONE MARROW SPECIMENOrdering Facility: [facility] Address: [address] [place] [address] Result Comment: This test was developed and its performance characteristics determined by [facility] [place] ([facility] It has not been cleared or approved by the FDA. -[facility] is regulated under CLIA as qualified to perform high-complexity testing. This test is used for clinical purposes. It should not be regarded as investigational or for research. Performed By: #### F CLLP, FCLLRFLX ####[facility] LABCLIA [id number] [address] [place] FINAL PERFORMING LAB Normal [facility] Comment on above: Order Comment: Speci men Type: BONE MARROW SPECIMENOrdering Facility: [facility] Address: [address] [place] [address] Result Comment: Diag nostic interpretation performed at [facility], [address] [address] CLIA# [id number] Director: Boris Wood M.D. Performed By: #### F CLLP, FCLLRFLX ####[facility] LABCLIA [id number] [place] [address] [place] FLOW CYTOMETRY RESULTS Normal [facility] Comment on above: Order Comment: Speci men Type: BONE MARROW SPECIMENOrdering Facility: [facility] Address: [address] [place] [address] Result Comment: Spec imen type: Bone marrow aspirateViability: 96%Results: % total eventsLymphocyte gate: 66Granulocyte gate: 5Monocyte gate: 1Blast gate: 6Flow Cytometry Bone Marrow ImmunophenotypingMarker Normal Cell Type Result (Blasts)CD2 T/NK cells NegativeCD3 T-cells NegativeCD4 T-cell subset NegativeCD5 T-cells NegativeCD7 T/NK-cells Dim (subset)CD8 T-cell subset IwaecgbgAV79 B-cell subset UlmvlchuDY15p Myeloid FcvndrlnFV42 Myeloid GglxcsqwDW45 Monocytes MzgfahqsAA00 Myeloid KxgqzbpsQK05 B-cells SyypbjkfDB53 B-cells PaqsdftfLV82 B-cells YphvdpekZS32 Myeloid LleyzdulBZ48 Blasts TqwdmbmqKD23 Activation IadnamvkQJ11 Hough-leukocyte Positive (dim)CD56 T/NK-cells JegfuhdwCR33 Myeloid FutwhaewIF83 Myeloid PgzdyvuxXS878 Blasts Positive (subset)HLA-DR B-cells Positivekappa/lambda B-cells NegativeFlow [...] assay. Performed By: #### F CLLP, FCLLRFLX ####[facility] LABIA [id number] [place] [address] [place] GROSS DESCRIPTION A. Bone Marrow Normal [facility] Comment on above: Order Comment: Speci men Type: BONE MARROW SPECIMENOrdering Facility: [facility] Address: [address] [place] [address] Result Comment: Rece ived 1 mL of bone marrow in heparin. Clots removed. Performed By: #### F CLLP, FCLLRFLX ####[facility] LABCLIA [id number] [place] [address] [place] INTERPRETATION Normal [facility] Comment on above: Order Comment: Elvia escobar Type: BONE MARROW SPECIMENOrdering Facility: [facility] Address: [address] [place] [address] Result Comment: An i ncreased, atypical myeloid [...] 08/30/2023 Performed By: #### F CLLP, FCLLRFLX ####[facility] LABCLIA [id number] [place] [address] [place] FLT3 ITD HN BONE MARROWon CLARITY SIGNOUT PATHOLOGIST [id number] Normal [facility] Comment on above: Order Comment: Elvia escobar Type: BONE MARROW SPECIMENOrdering Facility: [facility] Address: [address] [place] [address] Performed By: #### F 3IM, HDMNGS ####[facility] LIMSCLIA [id number] [place] [address] [place] FLT3 ITD HN PANEL BONE MARROW Normal [facility] Comment on above: Order Comment: Elvia escobar Type: BONE MARROW SPECIMENOrdering Facility: [facility] Address: [address] [place] [address] Result Comment: FLT3 Internal Tandem Duplication (ITD) Mutation TestingLaboratory Accession Number: [id number] Internal Tandem Duplication (ITD) mutation: Not DetectedComment:FLT3/ITD [...] from the specimen provided. Regions of the LCF9pgzzioxe kinase receptor gene are subjected to the [...] was developed and its performance characteristics determinedby [facility] [place] ([facility]). It has not been cleared or approved bythe FDA. -[facility] is regulated under CLIA as certified to perform high-complexity testing. This test is used for clinical purposes. It shouldnot be regarded as investigational or for research.Testing and interpretation performed at [facility], [address] [place] [address]. CLIA Number: [id number] reviewed by Mihaela Flowers MD Performed By: #### F 3IM, HDMNGS ####[facility] LIMSCLIA [id number] [place] [address] [place] HISTORY PHYSICALon HISTORY PHYSICAL Normal [facility] NURSING PROGon 08-30-2023 NURSING PROG Normal [facility] PT EDon 08-30-2023 PT ED Normal [facility] CNPNon 08-22-2023 CNPN Normal [facility] NURSING PROGon 08-22-2023 NURSING PROG Normal [facility] CNPNon 08-20-2023 CNPN Normal [facility] CNCOon 08-15-2023 CNCO Clinical report post ed in error Void Comment: BMT CALENDAR Letter Text Letter Text Normal [facility] CNPNon 08-15-2023 CNPN Normal [facility] CNSWon 08-15-2023 CNSW Normal [facility] CNPNon 08-13-2023 CNPN Normal [facility] CNPNon 08-09-2023 CNPN Normal [facility] CNPNon 08-08-2023 CNPN Normal [facility] CNPNon 08-07-2023 CNPN Normal [facility] CNCOon 08-06-2023 CNCO Clinical report post ed in error Void Comment: HPC Transplant LMN Letter Text Letter Text Normal [facility] CNCO Letter Text Normal [facility] CASE MANAGEMon 07-18-2023 CASE MANAGEM Normal [facility] CBC W Auto Differential pane l (Bld)on 07-18-2023 Basophils (Bld) [#/Vol] Normal [facility] Comment on above: Order Comment: Speci men Type: BLOOD SPECIMENOrdering Facility: [facility] Address: [address] [place] [address] Result Comment: Too Few Cells To Do Differential. Performed By: #### 5 7021-8 ####[facility] LABCLIA [id number] [place] [address] [place] Basophils/100 WBC (Bld) Normal [facility] Comment on above: Order Comment: Speci men Type: BLOOD SPECIMENOrdering Facility: [facility] Address: [address] [place] [address] Result Comment: Too Few Cells To Do Differential. Performed By: #### 5 7021-8 ####[facility] LABCLIA [id number] [place] [address] [place] Differential cell count method Nom (Bld) Auto Normal [facility] Comment on above: Order Comment: Speci men Type: BLOOD SPECIMENOrdering Facility: [facility] Address: [address] [place] [address] Performed By: #### 5 7021-8 ####[facility] LABCLIA [id number] [place] [address] [place] Eosinophils (Bld) [#/Vol] Normal [facility] Comment on above: Order Comment: Speci men Type: BLOOD SPECIMENOrdering Facility: [facility] Address: [address] [place] [address] Result Comment: Too Few Cells To Do Differential. Performed By: #### 5 7021-8 ####[facility] LABCLIA [id number] [place] [address] [place] Eosinophils/100 WBC (Bld) Normal [facility] Comment on above: Order Comment: Speci men Type: BLOOD SPECIMENOrdering Facility: [facility] Address: [address] [place] [address] Result Comment: Too Few Cells To Do Differential. Performed By: #### 5 7021-8 ####[facility] LABCLIA [id number] [place] [address] [place] Erythrocyte distribution width (RBC) [Ratio] 15.8 % High 11.5-15.0 [facility] Comment on above: Order Comment: Speci men Type: BLOOD SPECIMENOrdering Facility: [facility] Address: [address] [place] [address] Performed By: #### 5 7021-8 ####[facility] LABCLIA [id number] [place] [address] [place] Hematocrit (Bld) [Volume fraction] 22.8 % Low 36.0-46.0 [facility] Comment on above: Order Comment: Speci men Type: BLOOD SPECIMENOrdering Facility: [facility] Address: [address] [place] [address] Performed By: #### 5 7021-8 ####[facility] LABCLIA [id number] [place] [address] [place] Hemoglobin (Bld) [Mass/Vol] 7.8 g/dL Low 11.5-15.5 [facility] Comment on above: Order Comment: Speci men Type: BLOOD SPECIMENOrdering Facility: [facility] Address: [address] [place] [address] Performed By: #### 5 7021-8 ####[facility] LABCLIA [id number] [place] [address] [place] Immature granulocytes (Bld) [#/Vol] Normal [facility] Comment on above: Order Comment: Speci men Type: BLOOD SPECIMENOrdering Facility: [facility] Address: [address] [place] [address] Result Comment: Too Few Cells To Do Differential. Performed By: #### 5 7021-8 ####[facility] LABIA [id number] [place] [address] [place] Immature granulocytes/100 WBC (Bld) Normal [facility] Comment on above: Order Comment: Speci men Type: BLOOD SPECIMENOrdering Facility: [facility] Address: [address] [place] [address] Result Comment: Too Few Cells To Do Differential. Performed By: #### 5 7021-8 ####[facility] LABCLIA [id number] [place] [address] [place] Lymphocytes (Bld) [#/Vol] Normal [facility] Comment on above: Order Comment: Speci men Type: BLOOD SPECIMENOrdering Facility: [facility] Address: [address] [place] [address] Result Comment: Too Few Cells To Do Differential. Performed By: #### 5 7021-8 ####[facility] LABCLIA [id number] [place] [address] [place] Lymphocytes/100 WBC (Bld) Normal [facility] Comment on above: Order Comment: Speci men Type: BLOOD SPECIMENOrdering Facility: [facility] Address: [address] [place] [address] Result Comment: Too Few Cells To Do Differential. Performed By: #### 5 7021-8 ####[facility] LABCLIA [id number] [place] [address] [place] MCH (RBC) [Entitic mass] 30.1 pg Normal 26.0-34.0 [facility] Comment on above: Order Comment: Speci men Type: BLOOD SPECIMENOrdering Facility: [facility] Address: [address] [place] [address] Performed By: #### 5 7021-8 ####[facility] LABIA [id number] [place] [address] [place] MCHC (RBC) [Mass/Vol] 34.2 g/dL Normal 30.5-36.0 [facility] Comment on above: Order Comment: Speci men Type: BLOOD SPECIMENOrdering Facility: [facility] Address: [address] [place] [address] Performed By: #### 5 7021-8 ####[facility] LABIA [id number] [place] [address] [place] MCV (RBC) [Entitic vol] 88.0 fL Normal 80.0-100.0 [facility] Comment on above: Order Comment: Speci men Type: BLOOD SPECIMENOrdering Facility: [facility] Address: [address] [place] [address] Performed By: #### 5 7021-8 ####[facility] LABCLIA [id number] [place] [address] [place] Monocytes (Bld) [#/Vol] Normal [facility] Comment on above: Order Comment: Speci men Type: BLOOD SPECIMENOrdering Facility: [facility] Address: [address] [place] [address] Result Comment: Too Few Cells To Do Differential. Performed By: #### 5 7021-8 ####[facility] LABCLIA [id number] [place] [address] [place] Monocytes/100 WBC (Bld) Normal [facility] Comment on above: Order Comment: Speci men Type: BLOOD SPECIMENOrdering Facility: [facility] Address: [address] [place] [address] Result Comment: Too Few Cells To Do Differential. Performed By: #### 5 7021-8 ####[facility] LABCLIA [id number] [place] [address] [place] Neutrophils (Bld) [#/Vol] Normal [facility] Comment on above: Order Comment: Speci men Type: BLOOD SPECIMENOrdering Facility: [facility] Address: [address] [place] [address] Result Comment: Too Few Cells To Do Differential. Performed By: #### 5 7021-8 ####[facility] LABCLIA [id number] [place] [address] [place] Neutrophils/100 WBC (Bld) Normal [facility] Comment on above: Order Comment: Speci men Type: BLOOD SPECIMENOrdering Facility: [facility] Address: [address] [place] [address] Result Comment: Too Few Cells To Do Differential. Performed By: #### 5 7021-8 ####[facility] LABCLIA [id number] [place] [address] [place] Nucleated RBC (Bld) [#/Vol] 10*3/uL Normal <0.01 [facility] Comment on above: Order Comment: Speci men Type: BLOOD SPECIMENOrdering Facility: [facility] Address: [address] [place] [address] Performed By: #### 5 7021-8 ####[facility] LABCLIA [id number] [place] [address] [place] Nucleated RBC/100 WBC (Bld) [Ratio] 0.0 /100 WBC Normal [facility] Comment on above: Order Comment: Speci men Type: BLOOD SPECIMENOrdering Facility: [facility] Address: [address] [place] [address] Performed By: #### 5 7021-8 ####[facility] LABIA [id number] [place] [address] [place] Platelet mean volume (Bld) [Entitic vol] Normal [facility] Comment on above: Order Comment: Speci men Type: BLOOD SPECIMENOrdering Facility: [facility] Address: [address] [place] [address] Result Comment: Unab le to Report. Performed By: #### 5 7021-8 ####[facility] LABIA [id number] [place] [address] [place] Platelets (Bld) [#/Vol] 18 10*3/uL Low 150-400 [facility] Comment on above: Order Comment: Speci men Type: BLOOD SPECIMENOrdering Facility: [facility] Address: [address] [place] [address] Result Comment: Resu lts checked and verified.No clot detected. Performed By: #### 5 7021-8 ####[facility] LABIA [id number] [place] [address] [place] RBC (Bld) [#/Vol] 2.59 10*6/uL Low 3.90-5.20 [facility] Comment on above: Order Comment: Speci men Type: BLOOD SPECIMENOrdering Facility: [facility] Address: [address] [place] [address] Performed By: #### 5 7021-8 ####[facility] LABCLIA [id number] [place] [address] [place] WBC (Bld) [#/Vol] 0.47 10*3/uL Low 3.70-11.00 [facility] Comment on above: Order Comment: Speci men Type: BLOOD SPECIMENOrdering Facility: [facility] Address: [address] [place] [address] Result Comment: No c lot detected. Too Few Cells To Do Differential Performed By: #### 5 7021-8 ####[facility] LABIA [id number] [place] [address] [place] CNCOon 07-18-2023 CNCO Letter Text Normal [facility] CNDSon 07-18-2023 CNDS Normal [facility] CONSULT PROGon 07-18-2023 CONSULT PROG Normal [facility] Comprehensive metabolic 2000 panelon 07-18-2023 Albumin [Mass/Vol] 2.3 g/dL Low 3.9-4.9 [facility] Comment on above: Order Comment: Speci men Type: BLOOD SPECIMENOrdering Facility: [facility] Address: [address] [place] [address] Performed By: #### 2 4323-8, ####[facility] LABCLIA [id number] [place] [address] [place] ALP [Catalytic activity/Vol] 50 U/L Normal 34-123 [facility] Comment on above: Order Comment: Speci men Type: BLOOD SPECIMENOrdering Facility: [facility] Address: [address] [place] [address] Performed By: #### 2 4323-8, ####[facility] LABCLIA [id number] [place] [address] [place] ALT [Catalytic activity/Vol] 14 U/L Normal 7-38 [facility] Comment on above: Order Comment: Speci men Type: BLOOD SPECIMENOrdering Facility: [facility] Address: [address] [place] [address] Performed By: #### 2 432-8, ####[facility] LABCLIA [id number] [address] [address] [place] Anion gap [Moles/Vol] 8 mmol/L Low 9-18 [facility] Comment on above: Order Comment: Speci men Type: BLOOD SPECIMENOrdering Facility: [facility] Address: [address] [place] [address] Performed By: #### 2 432-8, ####[facility] LABCLIA [id number] [place] [address] [place] AST [Catalytic activity/Vol] 14 U/L Normal 13-35 [facility] Comment on above: Order Comment: Speci men Type: BLOOD SPECIMENOrdering Facility: [facility] Address: [address] [place] [address] Performed By: #### 2 432-8, ####[facility] LABCLIA [id number] [place] [address] [place] Bilirubin [Mass/Vol] 0.3 mg/dL Normal 0.2-1.3 [facility] Comment on above: Order Comment: Speci men Type: BLOOD SPECIMENOrdering Facility: [facility] Address: [address] [place] [address] Performed By: #### 2 4323-8, ####[facility] LABCLIA [id number] [place] [id number] [place] Calcium [Mass/Vol] 7.2 mg/dL Low 8.5-10.2 [facility] Comment on above: Order Comment: Speci men Type: BLOOD SPECIMENOrdering Facility: [facility] Address: [address] [place] [address] Performed By: #### 2 4323-8, ####[facility] LABCLIA [id number] [address] [address] [place] Chloride [Moles/Vol] 110 mmol/L High 97-105 [facility] Comment on above: Order Comment: Speci men Type: BLOOD SPECIMENOrdering Facility: [facility] Address: [address] [place] [address] Performed By: #### 2 4323-8, ####[facility] LABCLIA [id number] [place] [address] [place] CO2 [Moles/Vol] 23 mmol/L Normal 22-30 [facility] Comment on above: Order Comment: Speci men Type: BLOOD SPECIMENOrdering Facility: [facility] Address: [address] [place] [address] Performed By: #### 2 4323-8, ####[facility] LABCLIA [id number] [place] [address] [place] Creatinine [Mass/Vol] 0.66 mg/dL Normal 0.58-0.96 [facility] Comment on above: Order Comment: Speci men Type: BLOOD SPECIMENOrdering Facility: [facility] Address: [address] [place] [address] Performed By: #### 2 4323-8, ####[facility] LABCLIA [id number] [place] [id number] [place] Creatinine and Glomerular filtration rate.predicted panel (S/P/Bld) 95 mL/min/1.73m??? Normal >=60 [facility] Comment on above: Order Comment: Speci men Type: BLOOD SPECIMENOrdering Facility: [facility] Address: [address] [place] [address] Result Comment: Berenice mated Glomerular Filtration Rate [...] actual GFR. Performed By: #### 2 432-8, ####[facility] LABCLIA [id number] [place] [address] [place] Glucose [Mass/Vol] 85 mg/dL Normal 74-99 [facility] Comment on above: Order Comment: Speci men Type: BLOOD SPECIMENOrdering Facility: [facility] Address: [address] [place] [address] Result Comment: [place] [...] 2016.39(Suppl 1). Performed By: #### 2 43211-08, ####[facility] LABCLIA [id number] [place] [id number] [place] Potassium [Moles/Vol] 2.9 mmol/L Low 3.7-5.1 [facility] Comment on above: Order Comment: Speci men Type: BLOOD SPECIMENOrdering Facility: [facility] Address: [address] [place] [address] Performed By: #### 2 43211-08, ####[facility] LABCLIA [id number] [place] [id number] [place] Protein [Mass/Vol] 4.1 g/dL Low 6.3-8.0 [facility] Comment on above: Order Comment: Speci men Type: BLOOD SPECIMENOrdering Facility: [facility] Address: [address] [place] [address] Performed By: #### 2 4323-8, ####[facility] LABCLIA [id number] [place] [address] [place] Sodium [Moles/Vol] 141 mmol/L Normal 136-144 [facility] Comment on above: Order Comment: Speci men Type: BLOOD SPECIMENOrdering Facility: [facility] Address: [address] [place] [address] Performed By: #### 2 4323-8, ####[facility] LABCLIA [id number] [place] [address] [place] Urea nitrogen [Mass/Vol] 5 mg/dL Low 7-21 [facility] Comment on above: Order Comment: Speci men Type: BLOOD SPECIMENOrdering Facility: [facility] Address: [address] [place] [address] Performed By: #### 2 432-8, ####[facility] LABCLIA [id number] [place] [address] [place] Magnesium SerPl-mCncon 07-18 Magnesium [Mass/Vol] 1.9 mg/dL Normal 1.7-2.3 [facility] Comment on above: Order Comment: Speci men Type: BLOOD SPECIMENOrdering Facility: [facility] Address: [address] [place] [address] Performed By: #### 2 4323-8, ####[facility] LABCLIA [id number] [place] [address] [place] POTASSIUM BLDon 07-18-2023 Potassium [Moles/Vol] 4.0 mmol/L Normal 3.7-5.1 [facility] Comment on above: Order Comment: Speci men Type: BLOOD SPECIMENOrdering Facility: [facility] Address: [address] [place] [address] Performed By: #### K 1 ####[facility] LABCLIA [id number] [place] [address] [place] CASE MGT INIT ASSESon 2022 CASE MGT INIT ASSES Normal [facility] CASE MGT INIT ASSES Normal [facility] CBC W Auto Differential pane l (Bld)on 07-17-2023 Basophils (Bld) [#/Vol] Normal [facility] Comment on above: Order Comment: Speci men Type: BLOOD SPECIMENOrdering Facility: [facility] Address: [address] [place] [address] Result Comment: Too Few Cells To Do Differential. Performed By: #### 5 7021-8 ####[facility] LABCLIA [id number] [place] [address] [place] Basophils/100 WBC (Bld) Normal [facility] Comment on above: Order Comment: Speci men Type: BLOOD SPECIMENOrdering Facility: [facility] Address: [address] [place] [address] Result Comment: Too Few Cells To Do Differential. Performed By: #### 5 7021-8 ####[facility] LABCLIA [id number] [place] [address] [place] Differential cell count method Nom (Bld) Auto Normal [facility] Comment on above: Order Comment: Speci men Type: BLOOD SPECIMENOrdering Facility: [facility] Address: [address] [place] [address] Performed By: #### 5 7021-8 ####[facility] LABCLIA [id number] [place] [address] [place] Eosinophils (Bld) [#/Vol] Normal [facility] Comment on above: Order Comment: Speci men Type: BLOOD SPECIMENOrdering Facility: [facility] Address: [address] [place] [address] Result Comment: Too Few Cells To Do Differential. Performed By: #### 5 7021-8 ####[facility] LABCLIA [id number] [place] [address] [place] Eosinophils/100 WBC (Bld) Normal [facility] Comment on above: Order Comment: Speci men Type: BLOOD SPECIMENOrdering Facility: [facility] Address: [address] [place] [address] Result Comment: Too Few Cells To Do Differential. Performed By: #### 5 7021-8 ####[facility] LABCLIA [id number] [place] [address] [place] Erythrocyte distribution width (RBC) [Ratio] 15.9 % High 11.5-15.0 [facility] Comment on above: Order Comment: Speci men Type: BLOOD SPECIMENOrdering Facility: [facility] Address: [address] [place] [address] Performed By: #### 5 7021-8 ####[facility] LABIA [id number] [place] [address] [place] Hematocrit (Bld) [Volume fraction] 23.0 % Low 36.0-46.0 [facility] Comment on above: Order Comment: Speci men Type: BLOOD SPECIMENOrdering Facility: [facility] Address: [address] [place] [address] Performed By: #### 5 7021-8 ####[facility] LABCLIA [id number] [place] [address] [place] Hemoglobin (Bld) [Mass/Vol] 7.9 g/dL Low 11.5-15.5 [facility] Comment on above: Order Comment: Speci men Type: BLOOD SPECIMENOrdering Facility: [facility] Address: [address] [place] [address] Performed By: #### 5 7021-8 ####[facility] LABCLIA [id number] [place] [address] [place] Immature granulocytes (Bld) [#/Vol] Normal [facility] Comment on above: Order Comment: Speci men Type: BLOOD SPECIMENOrdering Facility: [facility] Address: [address] [place] [address] Result Comment: Too Few Cells To Do Differential. Performed By: #### 5 7021-8 ####[facility] LABCLIA [id number] [place] [address] [place] Immature granulocytes/100 WBC (Bld) Normal [facility] Comment on above: Order Comment: Speci men Type: BLOOD SPECIMENOrdering Facility: [facility] Address: [address] [place] [address] Result Comment: Too Few Cells To Do Differential. Performed By: #### 5 7021-8 ####[facility] LABCLIA [id number] [place] [address] [place] Lymphocytes (Bld) [#/Vol] Normal [facility] Comment on above: Order Comment: Speci men Type: BLOOD SPECIMENOrdering Facility: [facility] Address: [address] [place] [address] Result Comment: Too Few Cells To Do Differential. Performed By: #### 5 7021-8 ####[facility] LABCLIA [id number] [place] [address] [place] Lymphocytes/100 WBC (Bld) Normal [facility] Comment on above: Order Comment: Speci men Type: BLOOD SPECIMENOrdering Facility: [facility] Address: [address] [place] [address] Result Comment: Too Few Cells To Do Differential. Performed By: #### 5 7021-8 ####[facility] LABCLIA [id number] [place] [address] [place] MCH (RBC) [Entitic mass] 29.9 pg Normal 26.0-34.0 [facility] Comment on above: Order Comment: Speci men Type: BLOOD SPECIMENOrdering Facility: [facility] Address: [address] [place] [address] Performed By: #### 5 7021-8 ####[facility] LABCLIA [id number] [place] [address] [place] MCHC (RBC) [Mass/Vol] 34.3 g/dL Normal 30.5-36.0 [facility] Comment on above: Order Comment: Speci men Type: BLOOD SPECIMENOrdering Facility: [facility] Address: [address] [place] [address] Performed By: #### 5 7021-8 ####[facility] LABIA [id number] [place] [address] [place] MCV (RBC) [Entitic vol] 87.1 fL Normal 80.0-100.0 [facility] Comment on above: Order Comment: Speci men Type: BLOOD SPECIMENOrdering Facility: [facility] Address: [address] [place] [address] Performed By: #### 5 7021-8 ####[facility] LABCLIA [id number] [place] [address] [place] Monocytes (Bld) [#/Vol] Normal [facility] Comment on above: Order Comment: Speci men Type: BLOOD SPECIMENOrdering Facility: [facility] Address: [address] [place] [address] Result Comment: Too Few Cells To Do Differential. Performed By: #### 5 7021-8 ####[facility] LABCLIA [id number] [place] [address] [place] Monocytes/100 WBC (Bld) Normal [facility] Comment on above: Order Comment: Speci men Type: BLOOD SPECIMENOrdering Facility: [facility] Address: [address] [place] [address] Result Comment: Too Few Cells To Do Differential. Performed By: #### 5 7021-8 ####[facility] LABCLIA [id number] [place] [address] [place] Neutrophils (Bld) [#/Vol] Normal [facility] Comment on above: Order Comment: Speci men Type: BLOOD SPECIMENOrdering Facility: [facility] Address: [address] [place] [address] Result Comment: Too Few Cells To Do Differential. Performed By: #### 5 7021-8 ####[facility] LABIA [id number] [place] [address] [place] Neutrophils/100 WBC (Bld) Normal [facility] Comment on above: Order Comment: Speci men Type: BLOOD SPECIMENOrdering Facility: [facility] Address: [address] [place] [address] Result Comment: Too Few Cells To Do Differential. Performed By: #### 5 7021-8 ####[facility] LABIA [id number] [place] [address] [place] Nucleated RBC (Bld) [#/Vol] 10*3/uL Normal <0.01 [facility] Comment on above: Order Comment: Speci men Type: BLOOD SPECIMENOrdering Facility: [facility] Address: [address] [place] [address] Performed By: #### 5 7021-8 ####[facility] LABIA [id number] [place] [address] [place] Nucleated RBC/100 WBC (Bld) [Ratio] 0.0 /100 WBC Normal [facility] Comment on above: Order Comment: Speci men Type: BLOOD SPECIMENOrdering Facility: [facility] Address: [address] [place] [address] Performed By: #### 5 7021-8 ####[facility] LABIA [id number] [place] [address] [place] Platelet mean volume (Bld) [Entitic vol] Normal [facility] Comment on above: Order Comment: Speci men Type: BLOOD SPECIMENOrdering Facility: [facility] Address: [address] [place] [address] Result Comment: Unab le to Report. Performed By: #### 5 7021-8 ####[facility] LABCLIA [id number] [place] [address] [place] Platelets (Bld) [#/Vol] 8 10*3/uL Critically low 150-400 [facility] Comment on above: Order Comment: Speci men Type: BLOOD SPECIMENOrdering Facility: [facility] Address: [address] [place] [address] Result Comment: Resu lts checked and verified.No clot detected. Performed By: #### 5 7021-8 ####[facility] LABCLIA [id number] [place] [address] [place] RBC (Bld) [#/Vol] 2.64 10*6/uL Low 3.90-5.20 [facility] Comment on above: Order Comment: Speci men Type: BLOOD SPECIMENOrdering Facility: [facility] Address: [address] [place] [address] Performed By: #### 5 7021-8 ####[facility] LABCLIA [id number] [place] [address] [place] WBC (Bld) [#/Vol] 0.48 10*3/uL Low 3.70-11.00 [facility] Comment on above: Order Comment: Speci men Type: BLOOD SPECIMENOrdering Facility: [facility] Address: [address] [place] [address] Result Comment: Resu lts checked and verified.No clot detected. Too Few Cells To Do Differential Performed By: #### 5 7021-8 ####[facility] LABCLIA [id number] [place] [address] [place] Comprehensive metabolic 2000 panelon 07-17-2023 Albumin [Mass/Vol] 2.3 g/dL Low 3.9-4.9 [facility] Comment on above: Order Comment: Speci men Type: BLOOD SPECIMENOrdering Facility: [facility] Address: [address] [place] [address] Performed By: #### 1 9123-9, ####[facility] LABCLIA [id number] [place] [address] [place] ALP [Catalytic activity/Vol] 61 U/L Normal 34-123 [facility] Comment on above: Order Comment: Speci men Type: BLOOD SPECIMENOrdering Facility: [facility] Address: [address] [place] [address] Performed By: #### 1 9123-9, ####[facility] LABCLIA [id number] [place] [address] [place] ALT [Catalytic activity/Vol] 15 U/L Normal 7-38 [facility] Comment on above: Order Comment: Speci men Type: BLOOD SPECIMENOrdering Facility: [facility] Address: [address] [place] [address] Performed By: #### 1 9123-9, ####[facility] LABCLIA [id number] [place] [address] [place] Anion gap [Moles/Vol] 11 mmol/L Normal 9-18 [facility] Comment on above: Order Comment: Speci men Type: BLOOD SPECIMENOrdering Facility: [facility] Address: [address] [place] [address] Performed By: #### 1 9123-9, ####[facility] LABCLIA [id number] [place] [address] [place] AST [Catalytic activity/Vol] 15 U/L Normal 13-35 [facility] Comment on above: Order Comment: Speci men Type: BLOOD SPECIMENOrdering Facility: [facility] Address: [address] [place] [address] Performed By: #### 1 9123-9, ####[facility] LABCLIA [id number] [place] [address] [place] Bilirubin [Mass/Vol] 0.6 mg/dL Normal 0.2-1.3 [facility] Comment on above: Order Comment: Speci men Type: BLOOD SPECIMENOrdering Facility: [facility] Address: [address] [place] [address] Performed By: #### 1 23-9, ####[facility] LABCLIA [id number] [place] [address] [place] Calcium [Mass/Vol] 8.1 mg/dL Low 8.5-10.2 [facility] Comment on above: Order Comment: Speci men Type: BLOOD SPECIMENOrdering Facility: [facility] Address: [address] [place] [address] Performed By: #### 1 239, ####[facility] LABCLIA [id number] [place] [address] [place] Chloride [Moles/Vol] 106 mmol/L High 97-105 [facility] Comment on above: Order Comment: Speci men Type: BLOOD SPECIMENOrdering Facility: [facility] Address: [address] [place] [address] Performed By: #### 1 23-9, ####[facility] LABCLIA [id number] [place] [address] [place] CO2 [Moles/Vol] 21 mmol/L Low 22-30 [facility] Comment on above: Order Comment: Speci men Type: BLOOD SPECIMENOrdering Facility: [facility] Address: [address] [place] [address] Performed By: #### 1 9123-9, ####[facility] LABCLIA [id number] [place] [address] [place] Creatinine [Mass/Vol] 0.78 mg/dL Normal 0.58-0.96 [facility] Comment on above: Order Comment: Elvia escobar Type: BLOOD SPECIMENOrdering Facility: [facility] Address: [address] [place] [address] Performed By: #### 1 9123-9, 04960-8 ####[facility] LABCLIA [id number] [place] [address] [place] Creatinine and Glomerular filtration rate.predicted panel (S/P/Bld) 82 mL/min/1.73m??? Normal >=60 [facility] Comment on above: Order Comment: Elvia escobar Type: BLOOD SPECIMENOrdering Facility: [facility] Address: [address] [place] [address] Result Comment: Berenice mated Glomerular Filtration Rate [...] actual GFR. Performed By: #### 1 9123-9, 02563-3 ####[facility] LABCLIA [id number] [place] [address] [place] Glucose [Mass/Vol] 104 mg/dL High 74-99 [facility] Comment on above: Order Comment: Elvia escobar Type: BLOOD SPECIMENOrdering Facility: [facility] Address: [address] [place] [address] Result Comment: [place] [...] 2016.39(Suppl 1). Performed By: #### 1 23-9, ####[facility] LABCLIA [id number] [place] [address] [place] Potassium [Moles/Vol] 3.5 mmol/L Low 3.7-5.1 [facility] Comment on above: Order Comment: Speci men Type: BLOOD SPECIMENOrdering Facility: [facility] Address: [address] [place] [address] Performed By: #### 1 9122-9, ####[facility] LABIA [id number] [place] [address] [place] Protein [Mass/Vol] 4.5 g/dL Low 6.3-8.0 [facility] Comment on above: Order Comment: Speci men Type: BLOOD SPECIMENOrdering Facility: [facility] Address: [address] [place] [address] Performed By: #### 1 239, ####[facility] LABIA [id number] [place] [address] [place] Sodium [Moles/Vol] 138 mmol/L Normal 136-144 [facility] Comment on above: Order Comment: Speci men Type: BLOOD SPECIMENOrdering Facility: [facility] Address: [address] [place] [address] Performed By: #### 1 239, ####[facility] LABIA [id number] [place] [address] [place] Urea nitrogen [Mass/Vol] 7 mg/dL Normal 7-21 [facility] Comment on above: Order Comment: Speci men Type: BLOOD SPECIMENOrdering Facility: [facility] Address: [address] [place] [address] Performed By: #### 1 239, ####[facility] LABCLIA [id number] [place] [address] [place] Magnesium SerPl-mCncon 07-17 Magnesium [Mass/Vol] 2.0 mg/dL Normal 1.7-2.3 [facility] Comment on above: Order Comment: Speci men Type: BLOOD SPECIMENOrdering Facility: [facility] Address: [address] [place] [address] Performed By: #### 1 9123-9, ####[facility] LABCLIA [id number] [place] [address] [place] SOCIAL WORKon 07-17-2023 SOCIAL WORK Normal [facility] THERAPY NTon 07-17-2023 THERAPY NT Normal [facility] CBC W Auto Differential pane l (Bld)on 07-16-2023 Basophils (Bld) [#/Vol] Normal [facility] Comment on above: Order Comment: Speci men Type: BLOOD SPECIMENOrdering Facility: [facility] Address: [address] [place] [address] Result Comment: Too Few Cells To Do Differential. Performed By: #### 5 7021-8 ####[facility] LABIA [id number] [place] [address] [place] Basophils/100 WBC (Bld) Normal [facility] Comment on above: Order Comment: Speci men Type: BLOOD SPECIMENOrdering Facility: [facility] Address: [address] [place] [address] Result Comment: Too Few Cells To Do Differential. Performed By: #### 5 7021-8 ####[facility] LABCLIA [id number] [place] [address] [place] Differential cell count method Nom (Bld) Auto Normal [facility] Comment on above: Order Comment: Speci men Type: BLOOD SPECIMENOrdering Facility: [facility] Address: [address] [place] [address] Performed By: #### 5 7021-8 ####[facility] LABCLIA [id number] [place] [address] [place] Eosinophils (Bld) [#/Vol] Normal [facility] Comment on above: Order Comment: Speci men Type: BLOOD SPECIMENOrdering Facility: [facility] Address: [address] [place] [address] Result Comment: Too Few Cells To Do Differential. Performed By: #### 5 7021-8 ####[facility] LABCLIA [id number] [place] [address] [place] Eosinophils/100 WBC (Bld) Normal [facility] Comment on above: Order Comment: Speci men Type: BLOOD SPECIMENOrdering Facility: [facility] Address: [address] [place] [address] Result Comment: Too Few Cells To Do Differential. Performed By: #### 5 7021-8 ####[facility] LABIA [id number] [place] [address] [place] Erythrocyte distribution width (RBC) [Ratio] 14.8 % Normal 11.5-15.0 [facility] Comment on above: Order Comment: Speci men Type: BLOOD SPECIMENOrdering Facility: [facility] Address: [address] [place] [address] Performed By: #### 5 7021-8 ####[facility] LABIA [id number] [place] [address] [place] Hematocrit (Bld) [Volume fraction] 20.0 % Low 36.0-46.0 [facility] Comment on above: Order Comment: Speci men Type: BLOOD SPECIMENOrdering Facility: [facility] Address: [address] [place] [address] Performed By: #### 5 7021-8 ####[facility] LABIA [id number] [place] [address] [place] Hemoglobin (Bld) [Mass/Vol] 6.9 g/dL Low 11.5-15.5 [facility] Comment on above: Order Comment: Speci men Type: BLOOD SPECIMENOrdering Facility: [facility] Address: [address] [place] [address] Performed By: #### 5 7021-8 ####[facility] LABCLIA [id number] [place] [address] [place] Immature granulocytes (Bld) [#/Vol] Normal [facility] Comment on above: Order Comment: Speci men Type: BLOOD SPECIMENOrdering Facility: [facility] Address: [address] [place] [address] Result Comment: Too Few Cells To Do Differential. Performed By: #### 5 7021-8 ####[facility] LABCLIA [id number] [place] [address] [place] Immature granulocytes/100 WBC (Bld) Normal [facility] Comment on above: Order Comment: Speci men Type: BLOOD SPECIMENOrdering Facility: [facility] Address: [address] [place] [address] Result Comment: Too Few Cells To Do Differential. Performed By: #### 5 7021-8 ####[facility] LABCLIA [id number] [place] [address] [place] Lymphocytes (Bld) [#/Vol] Normal [facility] Comment on above: Order Comment: Speci men Type: BLOOD SPECIMENOrdering Facility: [facility] Address: [address] [place] [address] Result Comment: Too Few Cells To Do Differential. Performed By: #### 5 7021-8 ####[facility] LABCLIA [id number] [place] [address] [place] Lymphocytes/100 WBC (Bld) Normal [facility] Comment on above: Order Comment: Speci men Type: BLOOD SPECIMENOrdering Facility: [facility] Address: [address] [place] [address] Result Comment: Too Few Cells To Do Differential. Performed By: #### 5 7021-8 ####[facility] LABCLIA [id number] [place] [address] [place] MCH (RBC) [Entitic mass] 30.4 pg Normal 26.0-34.0 [facility] Comment on above: Order Comment: Speci men Type: BLOOD SPECIMENOrdering Facility: [facility] Address: [address] [place] [address] Performed By: #### 5 7021-8 ####[facility] LABIA [id number] [place] [address] [place] MCHC (RBC) [Mass/Vol] 34.5 g/dL Normal 30.5-36.0 [facility] Comment on above: Order Comment: Speci men Type: BLOOD SPECIMENOrdering Facility: [facility] Address: [address] [place] [address] Performed By: #### 5 7021-8 ####[facility] LABIA [id number] [place] [address] [place] MCV (RBC) [Entitic vol] 88.1 fL Normal 80.0-100.0 [facility] Comment on above: Order Comment: Speci men Type: BLOOD SPECIMENOrdering Facility: [facility] Address: [address] [place] [address] Performed By: #### 5 7021-8 ####[facility] LABIA [id number] [place] [address] [place] Monocytes (Bld) [#/Vol] Normal [facility] Comment on above: Order Comment: Speci men Type: BLOOD SPECIMENOrdering Facility: [facility] Address: [address] [place] [address] Result Comment: Too Few Cells To Do Differential. Performed By: #### 5 7021-8 ####[facility] LABIA [id number] [place] [address] [place] Monocytes/100 WBC (Bld) Normal [facility] Comment on above: Order Comment: Speci men Type: BLOOD SPECIMENOrdering Facility: [facility] Address: [address] [place] [address] Result Comment: Too Few Cells To Do Differential. Performed By: #### 5 7021-8 ####[facility] LABCLIA [id number] [place] [address] [place] Neutrophils (Bld) [#/Vol] Normal [facility] Comment on above: Order Comment: Speci men Type: BLOOD SPECIMENOrdering Facility: [facility] Address: [address] [place] [address] Result Comment: Too Few Cells To Do Differential. Performed By: #### 5 7021-8 ####[facility] LABCLIA [id number] [place] [address] [place] Neutrophils/100 WBC (Bld) Normal [facility] Comment on above: Order Comment: Speci men Type: BLOOD SPECIMENOrdering Facility: [facility] Address: [address] [place] [address] Result Comment: Too Few Cells To Do Differential. Performed By: #### 5 7021-8 ####[facility] LABCLIA [id number] [place] [address] [place] Nucleated RBC (Bld) [#/Vol] 10*3/uL Normal <0.01 [facility] Comment on above: Order Comment: Speci men Type: BLOOD SPECIMENOrdering Facility: [facility] Address: [address] [place] [address] Performed By: #### 5 7021-8 ####[facility] LABCLIA [id number] [place] [address] [place] Nucleated RBC/100 WBC (Bld) [Ratio] 0.0 /100 WBC Normal [facility] Comment on above: Order Comment: Speci men Type: BLOOD SPECIMENOrdering Facility: [facility] Address: [address] [place] [address] Performed By: #### 5 7021-8 ####[facility] LABIA [id number] [place] [address] [place] Platelet mean volume (Bld) [Entitic vol] Normal [facility] Comment on above: Order Comment: Speci men Type: BLOOD SPECIMENOrdering Facility: [facility] Address: [address] [place] [address] Result Comment: Unab le to Report. Performed By: #### 5 7021-8 ####[facility] [id number] [place] [address] [place] Platelets (Bld) [#/Vol] 10 10*3/uL Low 150-400 [facility] Comment on above: Order Comment: Speci men Type: BLOOD SPECIMENOrdering Facility: [facility] Address: [address] [place] [address] Result Comment: No c lot detected.Results checked and verified. Performed By: #### 5 7021-8 ####[facility] [id number] [place] [address] [place] RBC (Bld) [#/Vol] 2.27 10*6/uL Low 3.90-5.20 [facility] Comment on above: Order Comment: Speci men Type: BLOOD SPECIMENOrdering Facility: [facility] Address: [address] [place] [address] Performed By: #### 5 7021-8 ####[facility] [id number] [place] [address] [place] WBC (Bld) [#/Vol] 0.38 10*3/uL Low 3.70-11.00 [facility] Comment on above: Order Comment: Speci men Type: BLOOD SPECIMENOrdering Facility: [facility] Address: [address] [place] [address] Result Comment: No c lot detected. Too Few Cells To Do Differential Performed By: #### 5 7021-8 ####[facility] LABCLIA [id number] [place] [address] [place] Comprehensive metabolic 2000 panelon 07-16-2023 Albumin [Mass/Vol] 2.5 g/dL Low 3.9-4.9 [facility] Comment on above: Order Comment: Speci men Type: BLOOD SPECIMENOrdering Facility: [facility] [facility] Address: [address] [place] [address] Performed By: #### 2 432-8, ####[facility] LABCLIA [id number] [place] [address] [place] ALP [Catalytic activity/Vol] 60 U/L Normal 34-123 [facility] Comment on above: Order Comment: Speci men Type: BLOOD SPECIMENOrdering Facility: [facility] Address: [address] [place] [address] Performed By: #### 2 432-8, ####[facility] LABCLIA [id number] [place] [address] [place] ALT [Catalytic activity/Vol] 12 U/L Normal 7-38 [facility] Comment on above: Order Comment: Speci men Type: BLOOD SPECIMENOrdering Facility: [facility] Address: [address] [place] [address] Performed By: #### 2 4323-8, ####[facility] LABCLIA [id number] [place] [id number] [place] Anion gap [Moles/Vol] 9 mmol/L Normal 9-18 [facility] Comment on above: Order Comment: Speci men Type: BLOOD SPECIMENOrdering Facility: [facility] Address: [address] [place] [address] Performed By: #### 2 4323-8, ####[facility] LABCLIA [id number] [place] [id number] [place] AST [Catalytic activity/Vol] 12 U/L Low 13-35 [facility] Comment on above: Order Comment: Speci men Type: BLOOD SPECIMENOrdering Facility: [facility] Address: [address] [place] [address] Performed By: #### 2 4323-8, ####[facility] LABCLIA [id number] [place] [address] [place] Bilirubin [Mass/Vol] 0.5 mg/dL Normal 0.2-1.3 [facility] Comment on above: Order Comment: Speci men Type: BLOOD SPECIMENOrdering Facility: [facility] Address: [address] [place] [address] Performed By: #### 2 432-8, ####[facility] LABCLIA [id number] [place] [address] [place] Calcium [Mass/Vol] 7.8 mg/dL Low 8.5-10.2 [facility] Comment on above: Order Comment: Speci men Type: BLOOD SPECIMENOrdering Facility: [facility] Address: [address] [place] [address] Performed By: #### 2 4328, ####[facility] LABCLIA [id number] [place] [address] [place] Chloride [Moles/Vol] 105 mmol/L Normal 97-105 [facility] Comment on above: Order Comment: Speci men Type: BLOOD SPECIMENOrdering Facility: [facility] Address: [address] [place] [address] Performed By: #### 2 4323-8, ####[facility] LABCLIA [id number] [place] [address] [place] CO2 [Moles/Vol] 23 mmol/L Normal 22-30 [facility] Comment on above: Order Comment: Speci men Type: BLOOD SPECIMENOrdering Facility: [facility] Address: [address] [place] [address] Performed By: #### 2 4323-8, ####[facility] LABIA [id number] [place] [address] [place] Creatinine [Mass/Vol] 0.79 mg/dL Normal 0.58-0.96 [facility] Comment on above: Order Comment: Speci men Type: BLOOD SPECIMENOrdering Facility: [facility] Address: [address] [place] [address] Performed By: #### 2 4323-8, ####[facility] LABIA [id number] [place] [address] [place] Creatinine and Glomerular filtration rate.predicted panel (S/P/Bld) 81 mL/min/1.73m??? Normal >=60 [facility] Comment on above: Order Comment: Elvia men Type: BLOOD SPECIMENOrdering Facility: [facility] Address: [address] [place] [address] Result Comment: Berenice mated Glomerular Filtration Rate [...] actual GFR. Performed By: #### 2 4323-8, ####[facility] LABIA [id number] [place] [address] [place] Glucose [Mass/Vol] 96 mg/dL Normal 74-99 [facility] Comment on above: Order Comment: Speci men Type: BLOOD SPECIMENOrdering Facility: [facility] Address: [address] [place] [address] Result Comment: [place] [...] 2016.39(Suppl 1). Performed By: #### 2 4323-04, ####[facility] LABCLIA [id number] [place] [address] [place] Potassium [Moles/Vol] 3.2 mmol/L Low 3.7-5.1 [facility] Comment on above: Order Comment: Speci men Type: BLOOD SPECIMENOrdering Facility: [facility] Address: [address] [place] [address] Performed By: #### 2 4323-04, ####[facility] LABCLIA [id number] [place] [address] [place] Protein [Mass/Vol] 4.5 g/dL Low 6.3-8.0 [facility] Comment on above: Order Comment: Rochellei men Type: BLOOD SPECIMENOrdering Facility: [facility] Address: [address] [place] [address] Performed By: #### 2 4323-04, ####[facility] LABCLIA [id number] [place] [id number] [place] Sodium [Moles/Vol] 137 mmol/L Normal 136-144 [facility] Comment on above: Order Comment: Speci men Type: BLOOD SPECIMENOrdering Facility: [facility] Address: [address] [place] [address] Performed By: #### 2 4323-04, ####[facility] LABCLIA [id number] [address] [address] [place] Urea nitrogen [Mass/Vol] 9 mg/dL Normal 7-21 [facility] Comment on above: Order Comment: Speci men Type: BLOOD SPECIMENOrdering Facility: [facility] Address: [address] [place] [address] Performed By: #### 2 4323-8, 42621-0 ####[facility] LABCLIA [id number] [place] [address] [place] Gastrointestinal pathogens p jordan KIAH+probe (Stl)on 07-16-2023 ADENOVIRUS F 40/41 Not detected Normal Not Detected [facility] Comment on above: Order Comment: Speci men Type: STOOL SPECIMENOrdering Facility: [facility] Address: [address] [place] [address] Performed By: #### 7 9381-0 ####[facility] LABCLIA [id number] [place] [address] [place] ASTROVIRUS Not detected Normal Not Detected [facility] Comment on above: Order Comment: Speci men Type: STOOL SPECIMENOrdering Facility: [facility] Address: [address] [place] [address] Performed By: #### 7 9381-0 ####[facility] LABCLIA [id number] [place] [address] [place] C. cayetanensis DNA KIAH+probe Ql (Unsp spec) Not detected Normal Not Detected [facility] Comment on above: Order Comment: Speci men Type: STOOL SPECIMENOrdering Facility: [facility] Address: [address] [place] [address] Performed By: #### 7 9381-0 ####[facility] LABCLIA [id number] [place] [address] [place] Campylobacter sp DNA.diarrheagenic KIAH+probe Ql (Stl) Not detected Normal Not Detected [facility] Comment on above: Order Comment: Speci men Type: STOOL SPECIMENOrdering Facility: [facility] Address: [address] [place] [address] Performed By: #### 7 9381-0 ####[facility] LABCLIA [id number] [place] [address] [place] Cryptosporidium sp DNA KIAH+probe Ql (Unsp spec) Not detected Normal Not detected [facility] Comment on above: Order Comment: Speci men Type: STOOL SPECIMENOrdering Facility: [facility] Address: [address] [place] [address] Performed By: #### 7 9381-0 ####[facility] LABCLIA [id number] [place] [address] [place] E. COLI (EAEC) Not detected Normal Not Detected [facility] Comment on above: Order Comment: Speci men Type: STOOL SPECIMENOrdering Facility: [facility] Address: [address] [place] [address] Performed By: #### 7 9381-0 ####[facility] LABCLIA [id number] [place] [address] [place] E. COLI (EPEC) Not detected Normal Not Detected [facility] Comment on above: Order Comment: Speci men Type: STOOL SPECIMENOrdering Facility: [facility] Address: [address] [place] [address] Performed By: #### 7 9381-0 ####[facility] LABCLIA [id number] [place] [address] [place] E. COLI (ETEC) Not detected Normal Not Detected [facility] Comment on above: Order Comment: Speci men Type: STOOL SPECIMENOrdering Facility: [facility] Address: [address] [place] [address] Performed By: #### 7 9381-0 ####[facility] LABCLIA [id number] [place] [address] [place] E. COLI (STEC) Not detected Normal Not Detected [facility] Comment on above: Order Comment: Speci men Type: STOOL SPECIMENOrdering Facility: [facility] Address: [address] [place] [address] Performed By: #### 7 9381-0 ####[facility] LABCLIA [id number] [place] [address] [place] E. coli O157:H7 DNA KIAH+probe Ql (Unsp spec) Not Applicable Normal Not Detected [facility] Comment on above: Order Comment: Speci men Type: STOOL SPECIMENOrdering Facility: [facility] Address: [address] [place] [address] Performed By: #### 7 9381-0 ####[facility] LABCLIA [id number] [place] [address] [place] E. histolytica DNA KIAH+probe Ql (Unsp spec) Not detected Normal Not Detected [facility] Comment on above: Order Comment: Speci men Type: STOOL SPECIMENOrdering Facility: [facility] Address: [address] [place] [address] Performed By: #### 7 9381-0 ####[facility] LABCLIA [id number] [place] [address] [place] G. lamblia DNA KIAH+probe Ql (Unsp spec) Not detected Normal Not Detected [facility] Comment on above: Order Comment: Speci men Type: STOOL SPECIMENOrdering Facility: [facility] Address: [address] [place] [address] Performed By: #### 7 9381-0 ####[facility] LABCLIA [id number] [place] [address] [place] NOROVIRUS GI/GII Not detected Normal Not Detected [facility] Comment on above: Order Comment: Speci men Type: STOOL SPECIMENOrdering Facility: [facility] Address: [address] [place] [address] Performed By: #### 7 9381-0 ####[facility] LABCLIA [id number] [place] [address] [place] PLESIOMONAS SHIGELLOIDES Not detected Normal Not Detected [facility] Comment on above: Order Comment: Speci men Type: STOOL SPECIMENOrdering Facility: [facility] Address: [address] [place] [address] Performed By: #### 7 9381-0 ####[facility] LABCLIA [id number] [place] [address] [place] ROTOVIRUS A Not detected Normal Not Detected [facility] Comment on above: Order Comment: Speci men Type: STOOL SPECIMENOrdering Facility: [facility] Address: [address] [place] [address] Performed By: #### 7 9381-0 ####[facility] LABCLIA [id number] [place] [address] [place] Salmonella sp DNA KIAH+probe Ql (Unsp spec) Not detected Normal Not Detected [facility] Comment on above: Order Comment: Speci men Type: STOOL SPECIMENOrdering Facility: [facility] Address: [address] [place] [address] Performed By: #### 7 9381-0 ####[facility] LABCLIA [id number] [place] [address] [place] SAPOVIRUS I,II,IV,V Not detected Normal Not Detected [facility] Comment on above: Order Comment: Speci men Type: STOOL SPECIMENOrdering Facility: [facility] Address: [address] [place] [address] Performed By: #### 7 9381-0 ####[facility] LABCLIA [id number] [place] [address] [place] Shigella species+EIEC invasion plasmid antigen H ipaH gene KIAH+probe Ql (Stl) Not detected Normal Not Detected [facility] Comment on above: Order Comment: Speci men Type: STOOL SPECIMENOrdering Facility: [facility] Address: [address] [place] [address] Performed By: #### 7 9381-0 ####[facility] LABCLIA [id number] [place] [address] [place] V. cholerae DNA KIAH+probe Ql (Unsp spec) Not detected Normal Not Detected [facility] Comment on above: Order Comment: Speci men Type: STOOL SPECIMENOrdering Facility: [facility] Address: [address] [place] [address] Performed By: #### 7 9381-0 ####[facility] LABCLIA [id number] [place] [address] [place] Vibrio sp DNA KIAH+probe Nom (Unsp spec) Not detected Normal Not Detected [facility] Comment on above: Order Comment: Speci men Type: STOOL SPECIMENOrdering Facility: [facility] Address: [address] [place] [address] Performed By: #### 7 9381-0 ####[facility] LABCLIA [id number] [place] [address] [place] Yersinia sp DNA KIAH+probe Nom (Unsp spec) Not detected Normal Not Detected [facility] Comment on above: Order Comment: Speci men Type: STOOL SPECIMENOrdering Facility: [facility] Address: [address] [place] [address] Performed By: #### 7 9381-0 ####[facility] LABIA [id number] [place] [address] [place] Magnesium SerPl-mCncon 07-16 Magnesium [Mass/Vol] 2.0 mg/dL Normal 1.7-2.3 [facility] Comment on above: Order Comment: Speci men Type: BLOOD SPECIMENOrdering Facility: [facility] Address: [address] [place] [address] Performed By: #### 2 4323-8, 11933-4 ####[facility] LABCLIA [id number] [place] [address] [place] SOCIAL WORKon 07-16-2023 SOCIAL WORK Normal [facility] THERAPY NTon 07-16-2023 THERAPY NT Normal [facility] THERAPY NT Normal [facility] C diff Tox gens Stl Ql KAIH+p robeon 07-15-2023 C. difficile toxin genes KIAH+probe Ql (Stl) Negative Normal Negative for C. difficile toxin by PCR [facility] Comment on above: Order Comment: Speci men Type: STOOL SPECIMENOrdering Facility: [facility] Address: [address] [place] [address] Performed By: #### 5 4067-4 ####[facility] LABCLIA [id number] [place] [address] [place] CBC W Auto Differential pane l (Bld)on 07-15-2023 Basophils (Bld) [#/Vol] Normal [facility] Comment on above: Order Comment: Speci men Type: BLOOD SPECIMENOrdering Facility: [facility] Address: [address] [place] [address] Result Comment: Too Few Cells To Do Differential. Performed By: #### 5 7021-8 ####[facility] LABCLIA [id number] [place] [address] [place] Basophils/100 WBC (Bld) Normal [facility] Comment on above: Order Comment: Speci men Type: BLOOD SPECIMENOrdering Facility: [facility] Address: [address] [place] [address] Result Comment: Too Few Cells To Do Differential. Performed By: #### 5 7021-8 ####[facility] LABCLIA [id number] [place] [address] [place] Differential cell count method Nom (Bld) Auto Normal [facility] Comment on above: Order Comment: Speci men Type: BLOOD SPECIMENOrdering Facility: [facility] Address: [address] [place] [address] Performed By: #### 5 7021-8 ####[facility] LABCLIA [id number] [place] [address] [place] Eosinophils (Bld) [#/Vol] Normal [facility] Comment on above: Order Comment: Speci men Type: BLOOD SPECIMENOrdering Facility: [facility] Address: [address] [place] [address] Result Comment: Too Few Cells To Do Differential. Performed By: #### 5 7021-8 ####[facility] LABCLIA [id number] [place] [address] [place] Eosinophils/100 WBC (Bld) Normal [facility] Comment on above: Order Comment: Speci men Type: BLOOD SPECIMENOrdering Facility: [facility] Address: [address] [place] [address] Result Comment: Too Few Cells To Do Differential. Performed By: #### 5 7021-8 ####[facility] LABCLIA [id number] [place] [address] [place] Erythrocyte distribution width (RBC) [Ratio] 15.5 % High 11.5-15.0 [facility] Comment on above: Order Comment: Speci men Type: BLOOD SPECIMENOrdering Facility: [facility] Address: [address] [place] [address] Performed By: #### 5 7021-8 ####[facility] LABCLIA [id number] [place] [address] [place] Hematocrit (Bld) [Volume fraction] 18.5 % Low 36.0-46.0 [facility] Comment on above: Order Comment: Speci men Type: BLOOD SPECIMENOrdering Facility: [facility] Address: [address] [place] [address] Performed By: #### 5 7021-8 ####[facility] LABCLIA [id number] [place] [address] [place] Hemoglobin (Bld) [Mass/Vol] 6.4 g/dL Low 11.5-15.5 [facility] Comment on above: Order Comment: Speci men Type: BLOOD SPECIMENOrdering Facility: [facility] Address: [address] [place] [address] Performed By: #### 5 7021-8 ####[facility] LABCLIA [id number] [place] [address] [place] Immature granulocytes (Bld) [#/Vol] Normal [facility] Comment on above: Order Comment: Speci men Type: BLOOD SPECIMENOrdering Facility: [facility] Address: [address] [place] [address] Result Comment: Too Few Cells To Do Differential. Performed By: #### 5 7021-8 ####[facility] LABCLIA [id number] [place] [address] [place] Immature granulocytes/100 WBC (Bld) Normal [facility] Comment on above: Order Comment: Speci men Type: BLOOD SPECIMENOrdering Facility: [facility] Address: [address] [place] [address] Result Comment: Too Few Cells To Do Differential. Performed By: #### 5 7021-8 ####[facility] LABCLIA [id number] [place] [address] [place] Lymphocytes (Bld) [#/Vol] Normal [facility] Comment on above: Order Comment: Speci men Type: BLOOD SPECIMENOrdering Facility: [facility] Address: [address] [place] [address] Result Comment: Too Few Cells To Do Differential. Performed By: #### 5 7021-8 ####[facility] LABCLIA [id number] [place] [address] [place] Lymphocytes/100 WBC (Bld) Normal [facility] Comment on above: Order Comment: Speci men Type: BLOOD SPECIMENOrdering Facility: [facility] Address: [address] [place] [address] Result Comment: Too Few Cells To Do Differential. Performed By: #### 5 7021-8 ####[facility] LABCLIA [id number] [place] [address] [place] MCH (RBC) [Entitic mass] 30.9 pg Normal 26.0-34.0 [facility] Comment on above: Order Comment: Speci men Type: BLOOD SPECIMENOrdering Facility: [facility] Address: [address] [place] [address] Performed By: #### 5 7021-8 ####[facility] LABIA [id number] [place] [address] [place] MCHC (RBC) [Mass/Vol] 34.6 g/dL Normal 30.5-36.0 [facility] Comment on above: Order Comment: Speci men Type: BLOOD SPECIMENOrdering Facility: [facility] Address: [address] [place] [address] Performed By: #### 5 7021-8 ####[facility] LABIA [id number] [place] [address] [place] MCV (RBC) [Entitic vol] 89.4 fL Normal 80.0-100.0 [facility] Comment on above: Order Comment: Speci men Type: BLOOD SPECIMENOrdering Facility: [facility] Address: [address] [place] [address] Performed By: #### 5 7021-8 ####[facility] LABIA [id number] [place] [address] [place] Monocytes (Bld) [#/Vol] Normal [facility] Comment on above: Order Comment: Speci men Type: BLOOD SPECIMENOrdering Facility: [facility] Address: [address] [place] [address] Result Comment: Too Few Cells To Do Differential. Performed By: #### 5 7021-8 ####[facility] LABCLIA [id number] [place] [address] [place] Monocytes/100 WBC (Bld) Normal [facility] Comment on above: Order Comment: Speci men Type: BLOOD SPECIMENOrdering Facility: [facility] Address: [address] [place] [address] Result Comment: Too Few Cells To Do Differential. Performed By: #### 5 7021-8 ####[facility] LABCLIA [id number] [place] [address] [place] Neutrophils (Bld) [#/Vol] Normal [facility] Comment on above: Order Comment: Speci men Type: BLOOD SPECIMENOrdering Facility: [facility] Address: [address] [place] [address] Result Comment: Too Few Cells To Do Differential. Performed By: #### 5 7021-8 ####[facility] LABCLIA [id number] [place] [address] [place] Neutrophils/100 WBC (Bld) Normal [facility] Comment on above: Order Comment: Speci men Type: BLOOD SPECIMENOrdering Facility: [facility] Address: [address] [place] [address] Result Comment: Too Few Cells To Do Differential. Performed By: #### 5 7021-8 ####[facility] LABCLIA [id number] [place] [address] [place] Nucleated RBC (Bld) [#/Vol] 0.02 10*3/uL High <0.01 [facility] Comment on above: Order Comment: Speci men Type: BLOOD SPECIMENOrdering Facility: [facility] Address: [address] [place] [address] Performed By: #### 5 7021-8 ####[facility] LABCLIA [id number] [place] [address] [place] Nucleated RBC/100 WBC (Bld) [Ratio] 4.7 /100 WBC Normal [facility] Comment on above: Order Comment: Speci men Type: BLOOD SPECIMENOrdering Facility: [facility] Address: [address] [place] [address] Performed By: #### 5 7021-8 ####[facility] LABCLIA [id number] [place] [address] [place] Platelet mean volume (Bld) [Entitic vol] Normal [facility] Comment on above: Order Comment: Speci men Type: BLOOD SPECIMENOrdering Facility: [facility] Address: [address] [place] [address] Result Comment: Unab le to Report. Performed By: #### 5 7021-8 ####[facility] [id number] [place] [address] [place] Platelets (Bld) [#/Vol] 8 10*3/uL Critically low 150-400 [facility] Comment on above: Order Comment: Speci men Type: BLOOD SPECIMENOrdering Facility: [facility] Address: [address] [place] [address] Result Comment: Plat elet count confirmed by manual review of peripheral blood smear. Results checked and verified.No clot detected. Performed By: #### 5 7021-8 ####[facility] [id number] [place] [address] [place] RBC (Bld) [#/Vol] 2.07 10*6/uL Low 3.90-5.20 [facility] Comment on above: Order Comment: Speci men Type: BLOOD SPECIMENOrdering Facility: [facility] Address: [address] [place] [address] Performed By: #### 5 7021-8 ####[facility] [id number] [place] [address] [place] WBC (Bld) [#/Vol] 0.43 10*3/uL Low 3.70-11.00 [facility] Comment on above: Order Comment: Speci men Type: BLOOD SPECIMENOrdering Facility: [facility] Address: [address] [place] [address] Result Comment: Resu lts checked and verified.No clot detected. Too Few Cells To Do Differential Performed By: #### 5 7021-8 ####[facility] LABCLIA [id number] [place] [id number] [place] Comprehensive metabolic 2000 panelon 07-15-2023 Albumin [Mass/Vol] 2.3 g/dL Low 3.9-4.9 [facility] Comment on above: Order Comment: Speci men Type: BLOOD SPECIMENOrdering Facility: [facility] Address: [address] [place] [address] Performed By: #### 2 4323-8, ####[facility] LABCLIA [id number] [place] [address] [place] ALP [Catalytic activity/Vol] 56 U/L Normal 34-123 [facility] Comment on above: Order Comment: Speci men Type: BLOOD SPECIMENOrdering Facility: [facility] Address: [address] [place] [address] Performed By: #### 2 432-8, ####[facility] LABIA [id number] [place] [address] [place] ALT [Catalytic activity/Vol] 13 U/L Normal 7-38 [facility] Comment on above: Order Comment: Speci men Type: BLOOD SPECIMENOrdering Facility: [facility] Address: [address] [place] [address] Performed By: #### 2 4323-8, ####[facility] LABCLIA [id number] [place] [id number] [place] Anion gap [Moles/Vol] 8 mmol/L Low 9-18 [facility] Comment on above: Order Comment: Speci men Type: BLOOD SPECIMENOrdering Facility: [facility] Address: [address] [place] [address] Performed By: #### 2 4323-8, ####[facility] LABCLIA [id number] [place] [id number] [place] AST [Catalytic activity/Vol] 12 U/L Low 13-35 [facility] Comment on above: Order Comment: Speci men Type: BLOOD SPECIMENOrdering Facility: [facility] Address: [address] [place] [address] Performed By: #### 2 432-8, ####[facility] LABCLIA [id number] [place] [address] [place] Bilirubin [Mass/Vol] 0.7 mg/dL Normal 0.2-1.3 [facility] Comment on above: Order Comment: Speci men Type: BLOOD SPECIMENOrdering Facility: [facility] Address: [address] [place] [address] Performed By: #### 2 432-8, ####[facility] LABCLIA [id number] [place] [address] [place] Calcium [Mass/Vol] 7.9 mg/dL Low 8.5-10.2 [facility] Comment on above: Order Comment: Speci men Type: BLOOD SPECIMENOrdering Facility: [facility] Address: [address] [place] [address] Performed By: #### 2 432-8, ####[facility] LABCLIA [id number] [place] [address] [place] Chloride [Moles/Vol] 103 mmol/L Normal 97-105 [facility] Comment on above: Order Comment: Speci men Type: BLOOD SPECIMENOrdering Facility: [facility] Address: [address] [place] [address] Performed By: #### 2 4323-8, ####[facility] LABCLIA [id number] [place] [address] [place] CO2 [Moles/Vol] 23 mmol/L Normal 22-30 [facility] Comment on above: Order Comment: Speci men Type: BLOOD SPECIMENOrdering Facility: [facility] Address: [address] [place] [id number] Performed By: #### 2 4323-8, ####[facility] LABCLIA [id number] [place] [id number] [place] Creatinine [Mass/Vol] 0.81 mg/dL Normal 0.58-0.96 [facility] Comment on above: Order Comment: Elvia escobar Type: BLOOD SPECIMENOrdering Facility: [facility] Address: [address] [place] [address] Performed By: #### 2 4323-8, ####[facility] LABIA [id number] [place] [address] [place] Creatinine and Glomerular filtration rate.predicted panel (S/P/Bld) 78 mL/min/1.73m??? Normal >=60 [facility] Comment on above: Order Comment: Elvia escobar Type: BLOOD SPECIMENOrdering Facility: [facility] Address: [address] [place] [address] Result Comment: Berenice mated Glomerular Filtration Rate [...] actual GFR. Performed By: #### 2 4323-8, ####[facility] LABIA [id number] [place] [id number] [place] Glucose [Mass/Vol] 94 mg/dL Normal 74-99 [facility] Comment on above: Order Comment: Elvia escobar Type: BLOOD SPECIMENOrdering Facility: [facility] Address: [address] [place] [address] Result Comment: [place] [...] 2016.39(Suppl 1). Performed By: #### 2 4323-04, ####[facility] LABCLIA [id number] [address] [address] [place] Potassium [Moles/Vol] 3.6 mmol/L Low 3.7-5.1 [facility] Comment on above: Order Comment: Speci men Type: BLOOD SPECIMENOrdering Facility: [facility] Address: [address] [place] [address] Performed By: #### 2 4323-04, ####[facility] LABCLIA [id number] [place] [address] [place] Protein [Mass/Vol] 4.6 g/dL Low 6.3-8.0 [facility] Comment on above: Order Comment: Rochellei men Type: BLOOD SPECIMENOrdering Facility: [facility] Address: [address] [place] [address] Performed By: #### 2 4323-04, ####[facility] LABCLIA [id number] [place] [id number] [place] Sodium [Moles/Vol] 134 mmol/L Low 136-144 [facility] Comment on above: Order Comment: Speci men Type: BLOOD SPECIMENOrdering Facility: [facility] Address: [address] [place] [address] Performed By: #### 2 4323-04, ####[facility] LABCLIA [id number] [address] [address] [place] Urea nitrogen [Mass/Vol] 14 mg/dL Normal 7-21 [facility] Comment on above: Order Comment: Speci men Type: BLOOD SPECIMENOrdering Facility: [facility] Address: [place] [address] Performed By: #### 2 4323-8, 20368-4 ####[facility] LABCLIA [id number] [place] [address] [place] Magnesium SerPl-mCncon 07-15 Magnesium [Mass/Vol] 2.1 mg/dL Normal 1.7-2.3 [facility] Comment on above: Order Comment: Speci men Type: BLOOD SPECIMENOrdering Facility: [facility] Address: [address] [place] [address] Performed By: #### 2 4323-8, ####[facility] LABCLIA [id number] [place] [address] [place] THERAPY NTon 07-15-2023 THERAPY NT Normal [facility] CT ABD/PEL W IVCONon 023 CT ABD/PEL W IVCON Normal [facility] CT CHEST W IVCONon 3 CT CHEST W IVCON Normal [facility] NURSING PROGon 07-14-2023 NURSING PROG Normal [facility] CBC W Auto Differential pane l (Bld)on 07-13-2023 Anisocytosis Ql (Bld) Present Normal [facility] Comment on above: Order Comment: Speci men Type: BLOOD SPECIMENOrdering Facility: [facility] Address: [address] [place] [address] Performed By: #### 5 7021-8 ####[facility] LABCLIA [id number] [place] [address] [place] Basophils (Bld) [#/Vol] 0.00 10*3/uL Normal <0.11 [facility] Comment on above: Order Comment: Speci men Type: BLOOD SPECIMENOrdering Facility: [facility] Address: [address] [place] [address] Performed By: #### 5 7021-8 ####[facility] LABCLIA [id number] [place] [address] [place] Basophils/100 WBC (Bld) 0.0 % Normal [facility] Comment on above: Order Comment: Speci men Type: BLOOD SPECIMENOrdering Facility: [facility] Address: [address] [place] [address] Performed By: #### 5 7021-8 ####[facility] LABCLIA [id number] [place] [address] [place] BLAST% 1.8 % High <=0.0 [facility] Comment on above: Order Comment: Speci men Type: BLOOD SPECIMENOrdering Facility: [facility] Address: [address] [place] [address] Performed By: #### 5 7021-8 ####[facility] LABCLIA [id number] [place] [address] [place] Differential cell count method Nom (Bld) Manual Normal [facility] Comment on above: Order Comment: Speci men Type: BLOOD SPECIMENOrdering Facility: [facility] Address: [address] [place] [address] Performed By: #### 5 7021-8 ####[facility] LABCLIA [id number] [place] [address] [place] Eosinophils (Bld) [#/Vol] 0.00 10*3/uL Normal <0.46 [facility] Comment on above: Order Comment: Speci men Type: BLOOD SPECIMENOrdering Facility: [facility] Address: [address] [place] [address] Performed By: #### 5 7021-8 ####[facility] LABCLIA [id number] [place] [address] [place] Eosinophils/100 WBC (Bld) 0.0 % Normal [facility] Comment on above: Order Comment: Speci men Type: BLOOD SPECIMENOrdering Facility: [facility] Address: [address] [place] [address] Performed By: #### 5 7021-8 ####[facility] LABIA [id number] [place] [address] [place] Erythrocyte distribution width (RBC) [Ratio] 15.3 % High 11.5-15.0 [facility] Comment on above: Order Comment: Speci men Type: BLOOD SPECIMENOrdering Facility: [facility] Address: [address] [place] [address] Performed By: #### 5 7021-8 ####[facility] LABIA [id number] [place] [address] [place] Hematocrit (Bld) [Volume fraction] 20.6 % Low 36.0-46.0 [facility] Comment on above: Order Comment: Speci men Type: BLOOD SPECIMENOrdering Facility: [facility] Address: [address] [place] [address] Performed By: #### 5 7021-8 ####[facility] LABIA [id number] [place] [address] [place] Hemoglobin (Bld) [Mass/Vol] 7.3 g/dL Low 11.5-15.5 [facility] Comment on above: Order Comment: Speci men Type: BLOOD SPECIMENOrdering Facility: [facility] Address: [address] [place] [address] Performed By: #### 5 7021-8 ####[facility] LABIA [id number] [place] [address] [place] Lymphocytes (Bld) [#/Vol] 0.29 10*3/uL Low 1.00-4.00 [facility] Comment on above: Order Comment: Speci men Type: BLOOD SPECIMENOrdering Facility: [facility] Address: [address] [place] [address] Performed By: #### 5 7021-8 ####[facility] LABCLIA [id number] [place] [address] [place] Lymphocytes/100 WBC (Bld) 47.8 % Normal [facility] Comment on above: Order Comment: Speci men Type: BLOOD SPECIMENOrdering Facility: [facility] Address: [address] [place] [address] Performed By: #### 5 7021-8 ####[facility] LABIA [id number] [place] [address] [place] MCH (RBC) [Entitic mass] 30.9 pg Normal 26.0-34.0 [facility] Comment on above: Order Comment: Speci men Type: BLOOD SPECIMENOrdering Facility: [facility] Address: [address] [place] [address] Performed By: #### 5 7021-8 ####[facility] LABIA [id number] [place] [address] [place] MCHC (RBC) [Mass/Vol] 35.4 g/dL Normal 30.5-36.0 [facility] Comment on above: Order Comment: Speci men Type: BLOOD SPECIMENOrdering Facility: [facility] Address: [address] [place] [address] Performed By: #### 5 7021-8 ####[facility] LABIA [id number] [place] [address] [place] MCV (RBC) [Entitic vol] 87.3 fL Normal 80.0-100.0 [facility] Comment on above: Order Comment: Speci men Type: BLOOD SPECIMENOrdering Facility: [facility] Address: [address] [place] [address] Performed By: #### 5 7021-8 ####[facility] LABCLIA [id number] [place] [address] [place] Monocytes (Bld) [#/Vol] 0.07 10*3/uL Normal <0.87 [facility] Comment on above: Order Comment: Speci men Type: BLOOD SPECIMENOrdering Facility: [facility] Address: [address] [place] [address] Performed By: #### 5 7021-8 ####[facility] LABCLIA [id number] [place] [address] [place] Monocytes/100 WBC (Bld) 10.8 % Normal [facility] Comment on above: Order Comment: Speci men Type: BLOOD SPECIMENOrdering Facility: [facility] Address: [address] [place] [address] Performed By: #### 5 7021-8 ####[facility] LABCLIA [id number] [place] [address] [place] Neutrophils (Bld) [#/Vol] 0.24 10*3/uL Low 1.45-7.50 [facility] Comment on above: Order Comment: Speci men Type: BLOOD SPECIMENOrdering Facility: [facility] Address: [address] [place] [address] Performed By: #### 5 7021-8 ####[facility] LABIA [id number] [place] [address] [place] Neutrophils/100 WBC (Bld) 39.6 % Normal [facility] Comment on above: Order Comment: Speci men Type: BLOOD SPECIMENOrdering Facility: [facility] Address: [address] [place] [address] Performed By: #### 5 7021-8 ####[facility] LABCLIA [id number] [place] [address] [place] Nucleated RBC (Bld) [#/Vol] 0.02 10*3/uL High <0.01 [facility] Comment on above: Order Comment: Speci men Type: BLOOD SPECIMENOrdering Facility: [facility] Address: [address] [place] [address] Performed By: #### 5 7021-8 ####[facility] LABCLIA [id number] [place] [address] [place] Nucleated RBC/100 WBC (Bld) [Ratio] 2.7 /100 WBC Normal [facility] Comment on above: Order Comment: Speci men Type: BLOOD SPECIMENOrdering Facility: [facility] Address: [address] [place] [address] Performed By: #### 5 7021-8 ####[facility] LABCLIA [id number] [place] [address] [place] Ovalocytes LM Ql (Bld) Few Normal [facility] Comment on above: Order Comment: Speci men Type: BLOOD SPECIMENOrdering Facility: [facility] Address: [address] [place] [address] Performed By: #### 5 7021-8 ####[facility] LABCLIA [id number] [place] [address] [place] Platelet mean volume (Bld) [Entitic vol] Normal [facility] Comment on above: Order Comment: Speci men Type: BLOOD SPECIMENOrdering Facility: [facility] Address: [address] [place] [address] Result Comment: Unab le to Report. Performed By: #### 5 7021-8 ####[facility] LABCLIA [id number] [place] [address] [place] Platelets (Bld) [#/Vol] 10 10*3/uL Low 150-400 [facility] Comment on above: Order Comment: Speci men Type: BLOOD SPECIMENOrdering Facility: [facility] Address: [address] [place] [address] Performed By: #### 5 7021-8 ####[facility] LABCLIA [id number] [place] [address] [place] Platelets Estimate (Bld) [#/Vol] Decreased Normal [facility] Comment on above: Order Comment: Speci men Type: BLOOD SPECIMENOrdering Facility: [facility] Address: [address] [place] [address] Performed By: #### 5 7021-8 ####[facility] LABCLIA [id number] [place] [address] [place] Polychromasia LM Ql (Bld) Slight Normal [facility] Comment on above: Order Comment: Speci men Type: BLOOD SPECIMENOrdering Facility: [facility] Address: [address] [place] [address] Performed By: #### 5 7021-8 ####[facility] LABCLIA [id number] [place] [address] [place] RBC (Bld) [#/Vol] 2.36 10*6/uL Low 3.90-5.20 [facility] Comment on above: Order Comment: Speci men Type: BLOOD SPECIMENOrdering Facility: [facility] Address: [address] [place] [address] Performed By: #### 5 7021-8 ####[facility] LABCLIA [id number] [place] [address] [place] RBC FRAGMENTS Few Abnormal None Seen [facility] Comment on above: Order Comment: Speci men Type: BLOOD SPECIMENOrdering Facility: [facility] Address: [address] [place] [address] Performed By: #### 5 7021-8 ####[facility] LABCLIA [id number] [place] [address] [place] RED CELL MORPH Reviewed: see result s of individual morphologies Normal [facility] Comment on above: Order Comment: Speci men Type: BLOOD SPECIMENOrdering Facility: [facility] Address: [address] [place] [address] Performed By: #### 5 7021-8 ####[facility] LABCLIA [id number] [place] [address] [place] WBC (Bld) [#/Vol] 0.61 10*3/uL Low 3.70-11.00 [facility] Comment on above: Order Comment: Speci men Type: BLOOD SPECIMENOrdering Facility: [facility] Address: [address] [place] [address] Result Comment: Resu lts checked and verified.No clot detected. Performed By: #### 5 7021-8 ####[facility] LABCLIA [id number] [place] [address] [place] [facility] Comprehensive metabolic 2000 panelon 07-13-2023 Albumin [Mass/Vol] 2.6 g/dL Low 3.9-4.9 [facility] Comment on above: Order Comment: Speci men Type: BLOOD SPECIMENOrdering Facility: [facility] Address: [address] [place] [address] Performed By: #### 1 9123-9, 2777-, 75642-6 ####[facility] LABCLIA [id number] [place] [address] [place] ALP [Catalytic activity/Vol] 49 U/L Normal 34-123 [facility] Comment on above: Order Comment: Speci men Type: BLOOD SPECIMENOrdering Facility: [facility] Address: [address] [place] [address] Performed By: #### 1 9123-9, 2777-, 04550-0 ####[facility] LABCLIA [id number] [place] [address] [place] ALT [Catalytic activity/Vol] 16 U/L Normal 7-38 [facility] Comment on above: Order Comment: Speci men Type: BLOOD SPECIMENOrdering Facility: [facility] Address: [address] [place] [address] Performed By: #### 1 9123-9, 2777-, 91598-3 ####[facility] LABCLIA [id number] [place] [address] [place] Anion gap [Moles/Vol] 6 mmol/L Low 9-18 [facility] Comment on above: Order Comment: Speci men Type: BLOOD SPECIMENOrdering Facility: [facility] Address: [address] [place] [address] Performed By: #### 1 9123-9, 2776-09, ####[facility] LABCLIA [id number] [place] [address] [place] AST [Catalytic activity/Vol] 13 U/L Normal 13-35 [facility] Comment on above: Order Comment: Speci men Type: BLOOD SPECIMENOrdering Facility: [facility] Address: [address] [place] [address] Performed By: #### 1 9123-9, 2776-09, ####[facility] LABCLIA [id number] [place] [address] [place] Bilirubin [Mass/Vol] 0.8 mg/dL Normal 0.2-1.3 [facility] Comment on above: Order Comment: Speci men Type: BLOOD SPECIMENOrdering Facility: [facility] Address: [address] [place] [address] Performed By: #### 1 9123-9, 2776-09, ####[facility] LABCLIA [id number] [place] [address] [place] Calcium [Mass/Vol] 8.1 mg/dL Low 8.5-10.2 [facility] Comment on above: Order Comment: Speci men Type: BLOOD SPECIMENOrdering Facility: [facility] Address: [address] [place] [address] Performed By: #### 1 9123-9, 2776-09, ####[facility] LABCLIA [id number] [place] [id number] [place] Chloride [Moles/Vol] 103 mmol/L Normal 97-105 [facility] Comment on above: Order Comment: Speci men Type: BLOOD SPECIMENOrdering Facility: [facility] Address: [address] [place] [address] Performed By: #### 1 9123-9, 2776-09, ####[facility] LABCLIA [id number] [place] [address] [place] CO2 [Moles/Vol] 25 mmol/L Normal 22-30 [facility] Comment on above: Order Comment: Speci men Type: BLOOD SPECIMENOrdering Facility: [facility] Address: [address] [place] [address] Performed By: #### 1 9123-9, 27703-03, ####[facility] LABIA [id number] [place] [address] [place] Creatinine [Mass/Vol] 0.82 mg/dL Normal 0.58-0.96 [facility] Comment on above: Order Comment: Speci men Type: BLOOD SPECIMENOrdering Facility: [facility] Address: [address] [place] [address] Performed By: #### 1 9123-9, 27703-03, ####[facility] LABIA [id number] [address] [place] Creatinine and Glomerular filtration rate.predicted panel (S/P/Bld) 77 mL/min/1.73m??? Normal >=60 [facility] Comment on above: Order Comment: Speci men Type: BLOOD SPECIMENOrdering Facility: [facility] Address: [address] [place] [address] Result Comment: Berenice mated Glomerular Filtration Rate [...] GFR. Performed By: #### 1 9123-9, 2776-09, ####[facility] LABCLIA [id number] [place] [address] [place] Glucose [Mass/Vol] 112 mg/dL High 74-99 [facility] Comment on above: Order Comment: Speci men Type: BLOOD SPECIMENOrdering Facility: [facility] Address: [address] [place] [address] Result Comment: [place] [...] 1). Performed By: #### 1 9123-9, 2777-, 30884-4 ####[facility] LABIA [id number] [place] [address] [place] Potassium [Moles/Vol] 3.9 mmol/L Normal 3.7-5.1 [facility] Comment on above: Order Comment: Speci men Type: BLOOD SPECIMENOrdering Facility: [facility] Address: [address] [place] [address] Performed By: #### 1 9123-9, 2777-, 58171-1 ####[facility] LABIA [id number] [place] [id number] [place] Protein [Mass/Vol] 4.8 g/dL Low 6.3-8.0 [facility] Comment on above: Order Comment: Speci men Type: BLOOD SPECIMENOrdering Facility: [facility] Address: [address] [place] [address] Performed By: #### 1 9123-9, 2777-1, 22269-9 ####[facility] LABCLIA [id number] [place] [id number] [place] Sodium [Moles/Vol] 134 mmol/L Low 136-144 [facility] Comment on above: Order Comment: Speci men Type: BLOOD SPECIMENOrdering Facility: [facility] Address: [address] [place] [address] Performed By: #### 1 9123-9, 2777, 26414-1 ####[facility] LABIA [id number] [place] [address] [place] Urea nitrogen [Mass/Vol] 26 mg/dL High 7-21 [facility] Comment on above: Order Comment: Speci men Type: BLOOD SPECIMENOrdering Facility: [facility] Address: [address] [place] [address] Performed By: #### 1 9123-9, 2777, 16170-1 ####[facility] LABIA [id number] [place] [id number] [place] HISTORY PHYSICALon HISTORY PHYSICAL Normal [facility] Magnesium SerPl-mCncon 07-13 Magnesium [Mass/Vol] 2.2 mg/dL Normal 1.7-2.3 [facility] [facility] Comment on above: Order Comment: Speci men Type: BLOOD SPECIMENOrdering Facility: [facility] Address: [address] [place] [address] Performed By: #### 1 9123-9, 2777-, 94080-8 ####[facility] LABIA [id number] [place] [id number] [place] Phosphate SerPl-mCncon 07-13 Phosphate [Mass/Vol] 2.8 mg/dL Normal 2.7-4.8 [facility] Comment on above: Order Comment: Speci men Type: BLOOD SPECIMENOrdering Facility: [facility] Address: [address] [place] [address] Performed By: #### 1 9123-9, 2777-1, 33320-3 ####[facility] LABCLIA [id number] [place] [address] [place] TYPE + SCREENon 07-13-2023 ABO O Normal [facility] Comment on above: Order Comment: Speci men Type: BLOOD SPECIMENOrdering Facility: [facility] Address: [address] [place] [address] Performed By: #### T SCR ####[facility] BLOOD BANKCLIA [id number] [place] [address] [place] HISTORICAL AB SCR STATUS Negative Normal [facility] Comment on above: Order Comment: Speci men Type: BLOOD SPECIMENOrdering Facility: [facility] Address: [address] [place] [address] Performed By: #### T SCR ####[facility] BLOOD BANKCLIA [id number] [place] [address] [place] Rh Nom (Bld) Positive Normal [facility] Comment on above: Order Comment: Speci men Type: BLOOD SPECIMENOrdering Facility: [facility] Address: [address] [place] [address] Performed By: #### T SCR ####[facility] BLOOD BANKCLIA [id number] [place] [address] [place] TYPE AND SCREEN EXPIRATION 07/16/2023 23:59 Normal [facility] Comment on above: Order Comment: Speci men Type: BLOOD SPECIMENOrdering Facility: [facility] Address: [address] [place] [address] Performed By: #### T SCR ####CC [facility] BLOOD BANKCLIA [id number] [place] [id number] [place] CNPNon 07-06-2023 CNPN Normal [facility] AML MRD BY FCon 06-25-2023 AML MRD BY FC View results in Scan talia Documents link when available. Normal [facility] Comment on above: Order Comment: Speci men Type: BONE MARROW SPECIMENOrdering Facility: [facility] Address: [address] [place] [address] Performed By: #### A MLMRD ####[facility] MOLECULAR MICROCLIA [id number] [place] [address] BONE MARROW ANALYSISon 06-25 ADDENDUM 1: Normal [facility] Comment on above: Order Comment: Speci men Type: BONE MARROW SPECIMENOrdering Facility: [facility] Address: [address] [place] [address] Result Comment: Conv entional cytogenetic studies showed a complex female karyotype.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 In addition, the variant of unknown clinical significance was found in DDX41.The flow cytometry based minimal residual disease (MRD) studies performed on the bone marrow aspirate at [facility], [place], [place] are reported to show an abnormal [...] 10:10 AM Performed By: #### B MRT ####[facility] LABCLIA [id number] [address] [place] CASE REPORT Normal [facility] Comment on above: Order Comment: Speci men Type: BONE MARROW SPECIMENOrdering Facility: [facility] Address: [address] [place] [address] Result Comment: Bone Marrow Pathology Report Case: [id number] Provider: Mike Hughes MD Collected: 06/25/2023 08:55 AMOrdering Location: [place] [address] Received: 06/25/2023 09:18 AMPathologist: Mihaela Flowers MDSpecimens: A) - BONE MARROW ASPIRATE RIGHT POSTERIOR ILIAC CREST B) - BONE MARROW BIOPSY RIGHT POSTERIOR ILIAC CREST C) - BONE MARROW CLOT RIGHT POSTERIOR ILIAC CREST Performed By: #### B MRT ####[facility] LABCLIA [id number] GRCAE SOLIMAN [id number] [place] [address] [place] DIAGNOSIS COMMENT Normal [facility] Comment on above: Order Comment: Speci men Type: BONE MARROW SPECIMENOrdering Facility: [facility] Address: [address] [place] [address] Result Comment: The patient is a 68-year-old [...] Hernandez from the hematopathology section at the [facility], and he concurs with the above rendered final diagnosis and interpretation.Laboratory Developed Test (LDT) Disclaimer:Performance characteristics of immunohistochemical, immunofluorescent and chromogenic in-situ hybridization tests have been determined by the performing laboratory within [facility]???s [facility] [place] ([facility], [facility], [facility], [facility], [facility], [facility], or [facility]) in a manner consistent with CLIA requirements. One or more of these tests have not been cleared or approved by the FDA. [facility] is regulated under CLIA as qualified to perform high-complexity testing. These tests are used for clinical purposes. They should not be regarded as investigational or for research. Positive and negative controls stain appropriately. Performed By: #### B MRT ####[facility] LABCLIA [id number] [address] [place] FINAL DIAGNOSIS Normal [facility] Comment on above: Order Comment: Elvia escobar Type: BONE MARROW SPECIMENOrdering Facility: [facility] Address: [address] [place] [address] Result Comment: A-C. 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 Performed By: #### B MRT ####[facility] LABCLIA [id number] [address] [place] GROSS DESCRIPTION Normal [facility] Comment on above: Order Comment: Rochellei luz Type: BONE MARROW SPECIMENOrdering Facility: [facility] Address: [address] [place] [address] Result Comment: A. B ONE MARROW ASPIRATE [...] one cassette. Performed By: #### B MRT ####[facility] LABCLIA [id number] [facility] [id number] [place] MICROSCOPIC DESCRIPTION Normal [facility] Comment on above: Order Comment: Speci men Type: BONE MARROW SPECIMENOrdering Facility: [facility] Address: [address] [place] [address] Result Comment: GENNY PHERAL BLOOD: N0 CBC data or peripheral blood smear available for review.BONE MARROW ASPIRATE: Differential counts performed on the aspicular, hemodilute touch imprint may not be entirely major account representative of the true marrow cellularity.Result [...] coat stored. Performed By: #### B MRT ####[facility] LABCLIA [id number] [place] [address] [place] BONE MARROW CHROMOSOME ANALo n 06-25-2023 CHROMOSOME BM Normal [facility] Comment on above: Order Comment: Order ing Facility: [facility] Address: [address] [place] [address] Result Comment: Edel knight Accession Number: [id number]: Yara Hughesologist: Janki Pathology No: [id number] diagnosis: Acute Myeloid Leukemia Not Having AchievedRemissionSpecimen [...] reviewed by Jovanny Hooper, PhD, FACMGPerformed by [facility]ology and Laboratory Medicine InstituteDivision of Molecular PathologyCytogenetics Lab, [id number] [facility]. [place], [place] [address]Phone: Toll free: Performed By: #### C [facility] ####[facility] [id number] [address] OF [facility] BRIEF OP NOTon 06-25-2023 BRIEF OP NOT Normal [facility] CNOVSPon 06-25-2023 CNOVSP Normal [facility] CT BIOPSY BONE MARROW (HEMO) on 06-25-2023 CT BIOPSY BONE MARROW (HEMO) Normal [facility] DNA EXTRACTION BONE MARROW ( BUFFY COAT)on 06-25-2023 DNA EXTRACTION BONE MARROW (BUFFY COAT) Normal [facility] Comment on above: Order Comment: Speci men Type: BONE MARROW SPECIMENOrdering Facility: [facility] Address: [address] [place] [address] Result Comment: This specimen was received and successfully processed for future DNA purification should molecular testing be needed. Specimens will be available for 3 years from date of collection.To order testing on this specimen for [facility] patients, please place an [facility] order for DNA and RNA Clinical Testing (SQNUCADD). To order testing for patients outside of the [facility] system, please request DNA and RNA for Clinical Testing, order code [id number].If additional paperwork is required for testing, please send completed forms via secure email to . Performed By: #### N UCBUF ####[facility] LIMSCLIA [id number] [address] FLOW CYTOMETRY FOR LEUKEMIA/ LYMPHOMA (FCLL) PERFORMABLEon 06-25-2023 FLOW CYTOMETRY ORDER STATUS A bone marrow sample was received for potential flow cytometry studies. Following morphologic review, flow cytometric studies will be ordered by the hematopathologist if testing is indicated. Normal [facility] Comment on above: Order Comment: Speci men Type: BONE MARROW SPECIMENOrdering Facility: [facility] Address: [address] [place] [address] Performed By: #### F CLLP ####[facility] LABCLIA [id number] [address] Flow Cytometry Order Status A bone marrow sample was received for potential flow cytometry studies. Following morphologic review, flow cytometric studies will be ordered by the hematopathologist if testing is indicated. [facility] FLT3 ITD HN BONE MARROWon [facility] SIGNOUT PATHOLOGIST [id number] Normal [facility] Comment on above: Order Comment: Speci men Type: BONE MARROW SPECIMENOrdering Facility: [facility] Address: [address] [place] [address] Performed By: #### F IVONNE FRANKLIN ####JIM[facility] I[facility]UM[facility] LIMSCLIA [id number] [place] [address] [place] FLT3 ITD HN PANEL BONE MARROW Normal [facility] Comment on above: Order Comment: Specmaria eugenia men Type: BONE MARROW SPECIMENOrdering Facility: [facility] Address: [address] [place] [address] Result Comment: FLT3 Internal Tandem Duplication (ITD) Mutation TestingLaboratory Accession Number: [id number] Internal Tandem Duplication (ITD) mutation: Not DetectedComment:FLT3/ITD [...] from the specimen provided. Regions of the ZTD9zslbskqu kinase receptor gene are subjected to the [...] was developed and its performance characteristics determinedby [facility]'s [facility] [place] ([facility]). It has not been cleared or approved bythe FDA. -[facility] is regulated under CLIA as certified to perform high-complexity testing. This test is used for clinical purposes. It shouldnot be regarded as investigational or for research.Testing and interpretation performed at [facility], [address] [place] [address]. CLIA Number: [id number] reviewed by Zenia Mae, PhD, HCLD Performed By: #### F 3IKim, IVONNE ####[facility] Spark DiagnosticsSCLIA [id number] [place] [address] [place] HISTORY PHYSICALon HISTORY PHYSICAL Normal [facility] MYELOID NGS PANEL BONE MARRO Won 06-25-2023 MYELOID NGS PANEL BONE MARROW Normal [facility] Comment on above: Order Comment: Speci men Type: BONE MARROW SPECIMENOrdering Facility: [facility] Address: [address] [place] [address] Result Comment: Myel oid NGS Panel Bone MarrowLaboratory Accession Number: [id number]:Please see linked document and/or separate report for full result whenavailable.As reviewed by Zenia Mae, PhD, HCLD Performed By: #### F 3IM, PATELSM ####[facility] [employer] LIMSCLIA [id number] [place] [address] [place] NURSING PROGon 06-25-2023 NURSING PROG Normal [facility] PT EDon 06-25-2023 PT ED Normal [facility] CNPNon 06-22-2023 CNPN Normal [facility] NURSING PROGon 06-20-2023 NURSING PROG Normal [facility] CNPNon 06-14-2023 CNPN Normal [facility] CNCOon 06-08-2023 CNCO Letter Text Normal [facility] CASE MANAGEMon 06-07-2023 CASE MANAGEM Normal [facility] CBC W Auto Differential pane l (Bld)on 06-07-2023 Anisocytosis Ql (Bld) Present Normal [facility] Comment on above: Order Comment: Speci men Type: BLOOD SPECIMENOrdering Facility: [facility] Address: [address] [place] [address] Performed By: #### 5 7021-8 ####[facility] LABCLIA [id number] [place] [address] [place] Basophils (Bld) [#/Vol] 0.00 10*3/uL Normal <0.11 [facility] Comment on above: Order Comment: Speci men Type: BLOOD SPECIMENOrdering Facility: [facility] Address: [address] [place] [address] Performed By: #### 5 7021-8 ####[facility] LABCLIA [id number] [place] [address] [place] Basophils/100 WBC (Bld) 0.0 % Normal [facility] Comment on above: Order Comment: Speci men Type: BLOOD SPECIMENOrdering Facility: [facility] Address: [address] [place] [address] Performed By: #### 5 7021-8 ####[facility] LABCLIA [id number] [place] [address] [place] Dacrocytes LM Ql (Bld) Few Normal [facility] Comment on above: Order Comment: Speci men Type: BLOOD SPECIMENOrdering Facility: [facility] Address: [address] [place] [address] Performed By: #### 5 7021-8 ####[facility] LABCLIA [id number] [place] [address] [place] Differential cell count method Nom (Bld) Manual Normal [facility] Comment on above: Order Comment: Speci men Type: BLOOD SPECIMENOrdering Facility: [facility] Address: [address] [place] [address] Performed By: #### 5 7021-8 ####[facility] LABCLIA [id number] [place] [address] [place] Eosinophils (Bld) [#/Vol] 0.07 10*3/uL Normal <0.46 [facility] Comment on above: Order Comment: Speci men Type: BLOOD SPECIMENOrdering Facility: [facility] Address: [address] [place] [address] Performed By: #### 5 7021-8 ####[facility] LABCLIA [id number] [place] [address] [place] Eosinophils/100 WBC (Bld) 6.0 % Normal [facility] Comment on above: Order Comment: Speci men Type: BLOOD SPECIMENOrdering Facility: [facility] Address: [address] [place] [address] Performed By: #### 5 7021-8 ####[facility] LABCLIA [id number] [place] [address] [place] Erythrocyte distribution width (RBC) [Ratio] 18.3 % High 11.5-15.0 [facility] Comment on above: Order Comment: Speci men Type: BLOOD SPECIMENOrdering Facility: [facility] Address: [address] [place] [address] Performed By: #### 5 7021-8 ####[facility] LABCLIA [id number] [place] [address] [place] Hematocrit (Bld) [Volume fraction] 21.4 % Low 36.0-46.0 [facility] Comment on above: Order Comment: Speci men Type: BLOOD SPECIMENOrdering Facility: [facility] Address: [address] [place] [address] Performed By: #### 5 7021-8 ####[facility] LABIA [id number] [place] [address] [place] Hemoglobin (Bld) [Mass/Vol] 7.3 g/dL Low 11.5-15.5 [facility] Comment on above: Order Comment: Speci men Type: BLOOD SPECIMENOrdering Facility: [facility] Address: [address] [place] [address] Performed By: #### 5 7021-8 ####[facility] LABIA [id number] [place] [address] [place] Lymphocytes (Bld) [#/Vol] 0.96 10*3/uL Low 1.00-4.00 [facility] Comment on above: Order Comment: Speci men Type: BLOOD SPECIMENOrdering Facility: [facility] Address: [address] [place] [address] Performed By: #### 5 7021-8 ####[facility] LABIA [id number] [place] [address] [place] Lymphocytes/100 WBC (Bld) 82.0 % Normal [facility] Comment on above: Order Comment: Speci men Type: BLOOD SPECIMENOrdering Facility: [facility] Address: [address] [place] [address] Performed By: #### 5 7021-8 ####[facility] LABIA [id number] [place] [address] [place] MCH (RBC) [Entitic mass] 32.2 pg Normal 26.0-34.0 [facility] Comment on above: Order Comment: Speci men Type: BLOOD SPECIMENOrdering Facility: [facility] Address: [address] [place] [address] Performed By: #### 5 7021-8 ####[facility] LABCLIA [id number] [place] [address] [place] MCHC (RBC) [Mass/Vol] 34.1 g/dL Normal 30.5-36.0 [facility] Comment on above: Order Comment: Speci men Type: BLOOD SPECIMENOrdering Facility: [facility] Address: [address] [place] [address] Performed By: #### 5 7021-8 ####[facility] LABIA [id number] [place] [address] [place] MCV (RBC) [Entitic vol] 94.3 fL Normal 80.0-100.0 [facility] Comment on above: Order Comment: Speci men Type: BLOOD SPECIMENOrdering Facility: [facility] Address: [address] [place] [address] Performed By: #### 5 7021-8 ####[facility] LABIA [id number] [place] [address] [place] Monocytes (Bld) [#/Vol] 0.00 10*3/uL Normal <0.87 [facility] Comment on above: Order Comment: Speci men Type: BLOOD SPECIMENOrdering Facility: [facility] Address: [address] [place] [address] Performed By: #### 5 7021-8 ####[facility] LABCLIA [id number] [place] [address] [place] Monocytes/100 WBC (Bld) 0.0 % Normal [facility] Comment on above: Order Comment: Speci men Type: BLOOD SPECIMENOrdering Facility: [facility] Address: [address] [place] [address] Performed By: #### 5 7021-8 ####[facility] LABCLIA [id number] [place] [address] [place] Neutrophils (Bld) [#/Vol] 0.14 10*3/uL Low 1.45-7.50 [facility] Comment on above: Order Comment: Speci men Type: BLOOD SPECIMENOrdering Facility: [facility] Address: [address] [place] [address] Performed By: #### 5 7021-8 ####[facility] LABCLIA [id number] [place] [address] [place] Neutrophils/100 WBC (Bld) 12.0 % Normal [facility] Comment on above: Order Comment: Speci men Type: BLOOD SPECIMENOrdering Facility: [facility] Address: [address] [place] [address] Performed By: #### 5 7021-8 ####[facility] LABCLIA [id number] [place] [address] [place] Nucleated RBC (Bld) [#/Vol] 10*3/uL Normal <0.01 [facility] Comment on above: Order Comment: Speci men Type: BLOOD SPECIMENOrdering Facility: [facility] Address: [address] [place] [address] Performed By: #### 5 7021-8 ####[facility] LABCLIA [id number] [place] [address] [place] Nucleated RBC/100 WBC (Bld) [Ratio] 0.0 /100 WBC Normal [facility] Comment on above: Order Comment: Speci men Type: BLOOD SPECIMENOrdering Facility: [facility] Address: [address] [place] [address] Performed By: #### 5 7021-8 ####[facility] LABCLIA [id number] [place] [address] [place] Ovalocytes LM Ql (Bld) Few Normal [facility] Comment on above: Order Comment: Speci men Type: BLOOD SPECIMENOrdering Facility: [facility] Address: [address] [place] [address] Performed By: #### 5 7021-8 ####[facility] LABCLIA [id number] [place] [address] [place] Platelet mean volume (Bld) [Entitic vol] Normal [facility] Comment on above: Order Comment: Speci men Type: BLOOD SPECIMENOrdering Facility: [facility] Address: [address] [place] [address] Result Comment: Unab le to Report. Performed By: #### 5 7021-8 ####[facility] LABIA [id number] [place] [address] [place] Platelets (Bld) [#/Vol] 9 10*3/uL Critically low 150-400 [facility] Comment on above: Order Comment: Speci men Type: BLOOD SPECIMENOrdering Facility: [facility] Address: [address] [place] [address] Result Comment: Resu lts checked and verified.No clot detected. Performed By: #### 5 7021-8 ####[facility] LABIA [id number] [place] [address] [place] Platelets Estimate (Bld) [#/Vol] Decreased Normal [facility] Comment on above: Order Comment: Speci men Type: BLOOD SPECIMENOrdering Facility: [facility] Address: [address] [place] [address] Performed By: #### 5 7021-8 ####[facility] LABCLIA [id number] [place] [address] [place] Polychromasia LM Ql (Bld) Slight Normal [facility] Comment on above: Order Comment: Speci men Type: BLOOD SPECIMENOrdering Facility: [facility] Address: [address] [place] [address] Performed By: #### 5 7021-8 ####[facility] LABCLIA [id number] [place] [address] [place] RBC (Bld) [#/Vol] 2.27 10*6/uL Low 3.90-5.20 [facility] Comment on above: Order Comment: Speci men Type: BLOOD SPECIMENOrdering Facility: [facility] Address: [address] [place] [address] Performed By: #### 5 7021-8 ####[facility] LABCLIA [id number] [place] [address] [place] RBC FRAGMENTS Few Abnormal None Seen [facility] Comment on above: Order Comment: Speci men Type: BLOOD SPECIMENOrdering Facility: [facility] Address: [address] [place] [address] Performed By: #### 5 7021-8 ####[facility] LABCLIA [id number] [place] [address] [place] RED CELL MORPH Reviewed: see result s of individual morphologies Normal [facility] Comment on above: Order Comment: Speci men Type: BLOOD SPECIMENOrdering Facility: [facility] Address: [address] [place] [address] Performed By: #### 5 7021-8 ####[facility] LABCLIA [id number] [place] [address] [place] WBC (Bld) [#/Vol] 1.17 10*3/uL Low 3.70-11.00 [facility] Comment on above: Order Comment: Speci men Type: BLOOD SPECIMENOrdering Facility: [facility] Address: [address] [place] [address] Result Comment: No c lot detected. Performed By: #### 5 7021-8 ####[facility] LABCLIA [id number] [place] [address] [place] CNDSon 06-07-2023 CNDS Normal [facility] Comprehensive metabolic 2000 panelon 06-07-2023 Albumin [Mass/Vol] 3.2 g/dL Low 3.9-4.9 [facility] Comment on above: Order Comment: Speci men Type: BLOOD SPECIMENOrdering Facility: [facility] Address: [address] [place] [address] Performed By: #### 2 4323-8, 19132-9, 3083-, 2776- ####[facility] LABCLIA [id number] [place] [address] [place] ALP [Catalytic activity/Vol] 63 U/L Normal 34-123 [facility] Comment on above: Order Comment: Speci men Type: BLOOD SPECIMENOrdering Facility: [facility] Address: [address] [place] [address] Performed By: #### 2 4323-8, 62975-1, 3083-, 2776- ####[facility] LABCLIA [id number] [place] [address] [place] ALT [Catalytic activity/Vol] 18 U/L Normal 7-38 [facility] Comment on above: Order Comment: Speci men Type: BLOOD SPECIMENOrdering Facility: [facility] Address: [address] [place] [address] Performed By: #### 2 4323-8, 06086-0, 3083-, 2776-09 ####[facility] LABCLIA [id number] [place] [address] [place] Anion gap [Moles/Vol] 10 mmol/L Normal 9-18 [facility] Comment on above: Order Comment: Speci men Type: BLOOD SPECIMENOrdering Facility: [facility] Address: [address] [place] [address] Performed By: #### 2 4323-8, 63541-1, 3083-, 2776- ####[facility] LABCLIA [id number] [place] [id number] [place] AST [Catalytic activity/Vol] 15 U/L Normal 13-35 [facility] Comment on above: Order Comment: Speci men Type: BLOOD SPECIMENOrdering Facility: [facility] Address: [address] [place] [address] Performed By: #### 2 4323-8, 59064-8, 3083-, 2776- ####[facility] LABCLIA [id number] [address] [address] [place] Bilirubin [Mass/Vol] 0.3 mg/dL Normal 0.2-1.3 [facility] Comment on above: Order Comment: Speci men Type: BLOOD SPECIMENOrdering Facility: [facility] Address: [address] [place] [address] Performed By: #### 2 4323-8, 36015-0, 3083-, 2776- ####[facility] LABCLIA [id number] [place] [address] [place] Calcium [Mass/Vol] 8.7 mg/dL Normal 8.5-10.2 [facility] Comment on above: Order Comment: Speci men Type: BLOOD SPECIMENOrdering Facility: [facility] Address: [address] [place] [address] Performed By: #### 2 4323-8, 28311-8, 3083-09, 2776-09 ####[facility] LABCLIA [id number] [place] [address] [place] Chloride [Moles/Vol] 110 mmol/L High 97-105 [facility] Comment on above: Order Comment: Speci men Type: BLOOD SPECIMENOrdering Facility: [facility] Address: [address] [place] [address] Performed By: #### 2 4323-8, 81978-8, 3083-, 2776-09 ####[facility] LABCLIA [id number] [place] [id number] [place] CO2 [Moles/Vol] 21 mmol/L Low 22-30 [facility] Comment on above: Order Comment: Speci men Type: BLOOD SPECIMENOrdering Facility: [facility] Address: [address] [place] [address] Performed By: #### 2 4323-8, 55296-3, 3083-1, 2776- ####[facility] LABCLIA [id number] [place] [address] [place] Creatinine [Mass/Vol] 1.09 mg/dL High 0.58-0.96 [facility] Comment on above: Order Comment: Speci men Type: BLOOD SPECIMENOrdering Facility: [facility] Address: [address] [place] [address] Performed By: #### 2 4323-8, 22866-2, 3083-, 2776- ####[facility] LABIA [id number] [place] [address] [place] Creatinine and Glomerular filtration rate.predicted panel (S/P/Bld) 55 mL/min/1.73m??? Low >=60 [facility] Comment on above: Order Comment: Speci men Type: BLOOD SPECIMENOrdering Facility: [facility] Address: [address] [place] [address] Result Comment: Berenice mated Glomerular Filtration Rate [...] actual GFR. Performed By: #### 2 4323-8, 76391-6, 3083-, 2776- ####[facility] LABIA [id number] [place] [id number] [place] Glucose [Mass/Vol] 107 mg/dL High 74-99 [facility] Comment on above: Order Comment: Speci men Type: BLOOD SPECIMENOrdering Facility: [facility] Address: [address] [place] [address] Result Comment: [place] [...] 2016.39(Suppl 1). Performed By: #### 2 4323-8, 68955-8, 3083-, 2776-09 ####[facility] LABCLIA [id number] [place] [address] [place] Potassium [Moles/Vol] 3.8 mmol/L Normal 3.7-5.1 [facility] Comment on above: Order Comment: Speci men Type: BLOOD SPECIMENOrdering Facility: [facility] Address: [address] [place] [address] Performed By: #### 2 4323-8, , 3083-09, 2776-09 ####[facility] LABIA [id number] [place] [address] [place] Protein [Mass/Vol] 5.4 g/dL Low 6.3-8.0 [facility] Comment on above: Order Comment: Speci men Type: BLOOD SPECIMENOrdering Facility: [facility] Address: [address] [place] [address] Performed By: #### 2 4323-8, 17463-6, 3083-09, 2776-09 ####[facility] LABIA [id number] [place] [address] [place] Sodium [Moles/Vol] 141 mmol/L Normal 136-144 [facility] Comment on above: Order Comment: Speci men Type: BLOOD SPECIMENOrdering Facility: [facility] Address: [address] [place] [id number] Performed By: #### 2 4323-8, 27203-9, 3083-09, 2776-09 ####[facility] LABCLIA [id number] [address] [address] [place] Urea nitrogen [Mass/Vol] 14 mg/dL Normal 7-21 [facility] Comment on above: Order Comment: Speci men Type: BLOOD SPECIMENOrdering Facility: [facility] Address: [address] [place], [place] [address] Performed By: #### 2 4323-8, 79831-2, 3083-09, 2776-09 ####[facility] LABCLIA [id number] [address] [address] [place] Magnesium SerPl-nc 06-07 Magnesium [Mass/Vol] 2.1 mg/dL Normal 1.7-2.3 [facility] Comment on above: Order Comment: Speci men Type: BLOOD SPECIMENOrdering Facility: [facility] Address: [address] [place], [place] [address] Performed By: #### 2 4323-8, 40194-3, 3083-09, 2776-09 ####[facility] LABCLIA [id number] [place] [id number] [place] Phosphate SerPl-mCncon 06-07 Phosphate [Mass/Vol] 2.5 mg/dL Low 2.7-4.8 [facility] Comment on above: Order Comment: Speci men Type: BLOOD SPECIMENOrdering Facility: [facility] Address: [address] [place], [place] [address] Performed By: #### 2 4323-8, 63416-5, 3083-09, 2776- ####[facility] LABCLIA [id number] [address] [address] [place] SOCIAL WORKon 06-07-2023 SOCIAL WORK Normal [facility] SOCIAL WORK Normal [facility] Urate SerPl-mCncon Urate [Mass/Vol] 2.8 mg/dL Normal 2.5-6.6 [facility] Comment on above: Order Comment: Speci men Type: BLOOD SPECIMENOrdering Facility: [facility] Address: [address] [place] [address] Performed By: #### 2 4323-8, 57546-7, 3084-1, 2777-1 ####[facility] LABCLIA [id number] [place] [address] [place] CBC W Auto Differential pane l (Bld)on 06-06-2023 Anisocytosis Ql (Bld) Present Normal [facility] Comment on above: Order Comment: Speci men Type: BLOOD SPECIMENOrdering Facility: [facility] Address: [address] [place] [address] Performed By: #### 5 7021-8 ####[facility] LABCLIA [id number] [place] [address] [place] Basophils (Bld) [#/Vol] 0.00 10*3/uL Normal <0.11 [facility] Comment on above: Order Comment: Speci men Type: BLOOD SPECIMENOrdering Facility: [facility] Address: [address] [place] [address] Performed By: #### 5 7021-8 ####[facility] LABCLIA [id number] [place] [address] [place] Basophils/100 WBC (Bld) 0.0 % Normal [facility] Comment on above: Order Comment: Speci men Type: BLOOD SPECIMENOrdering Facility: [facility] Address: [address] [place] [address] Performed By: #### 5 7021-8 ####[facility] LABCLIA [id number] [place] [address] [place] Dacrocytes LM Ql (Bld) Few Normal [facility] Comment on above: Order Comment: Speci men Type: BLOOD SPECIMENOrdering Facility: [facility] Address: [address] [place] [address] Performed By: #### 5 7021-8 ####[facility] LABCLIA [id number] [place] [address] [place] Differential cell count method Nom (Bld) Manual Normal [facility] Comment on above: Order Comment: Speci men Type: BLOOD SPECIMENOrdering Facility: [facility] Address: [address] [place] [address] Performed By: #### 5 7021-8 ####[facility] LABCLIA [id number] [place] [address] [place] Eosinophils (Bld) [#/Vol] 0.00 10*3/uL Normal <0.46 [facility] Comment on above: Order Comment: Speci men Type: BLOOD SPECIMENOrdering Facility: [facility] Address: [address] [place] [address] Performed By: #### 5 7021-8 ####[facility] LABCLIA [id number] [place] [address] [place] Eosinophils/100 WBC (Bld) 0.4 % Normal [facility] Comment on above: Order Comment: Speci men Type: BLOOD SPECIMENOrdering Facility: [facility] Address: [address] [place] [address] Performed By: #### 5 7021-8 ####[facility] LABCLIA [id number] [place] [address] [place] Erythrocyte distribution width (RBC) [Ratio] 18.8 % High 11.5-15.0 [facility] Comment on above: Order Comment: Speci men Type: BLOOD SPECIMENOrdering Facility: [facility] Address: [address] [place] [address] Performed By: #### 5 7021-8 ####[facility] LABCLIA [id number] [place] [address] [place] Hematocrit (Bld) [Volume fraction] 28.5 % Low 36.0-46.0 [facility] Comment on above: Order Comment: Speci men Type: BLOOD SPECIMENOrdering Facility: [facility] Address: [address] [place] [address] Performed By: #### 5 7021-8 ####[facility] LABIA [id number] [place] [address] [place] Hemoglobin (Bld) [Mass/Vol] 9.6 g/dL Low 11.5-15.5 [facility] Comment on above: Order Comment: Speci men Type: BLOOD SPECIMENOrdering Facility: [facility] Address: [address] [place] [address] Performed By: #### 5 7021-8 ####[facility] LABIA [id number] [place] [address] [place] Lymphocytes (Bld) [#/Vol] 0.86 10*3/uL Low 1.00-4.00 [facility] Comment on above: Order Comment: Speci men Type: BLOOD SPECIMENOrdering Facility: [facility] Address: [address] [place] [address] Performed By: #### 5 7021-8 ####[facility] LABIA [id number] [place] [address] [place] Lymphocytes/100 WBC (Bld) 91.2 % Normal [facility] Comment on above: Order Comment: Speci men Type: BLOOD SPECIMENOrdering Facility: [facility] Address: [address] [place] [address] Performed By: #### 5 7021-8 ####[facility] LABIA [id number] [place] [address] [place] MCH (RBC) [Entitic mass] 32.0 pg Normal 26.0-34.0 [facility] Comment on above: Order Comment: Speci men Type: BLOOD SPECIMENOrdering Facility: [facility] Address: [address] [place] [address] Performed By: #### 5 7021-8 ####[facility] LABIA [id number] [place] [address] [place] MCHC (RBC) [Mass/Vol] 33.7 g/dL Normal 30.5-36.0 [facility] Comment on above: Order Comment: Speci men Type: BLOOD SPECIMENOrdering Facility: [facility] Address: [address] [place] [address] Performed By: #### 5 7021-8 ####[facility] LABIA [id number] [place] [address] [place] MCV (RBC) [Entitic vol] 95.0 fL Normal 80.0-100.0 [facility] Comment on above: Order Comment: Speci men Type: BLOOD SPECIMENOrdering Facility: [facility] Address: [address] [place] [address] Performed By: #### 5 7021-8 ####[facility] LABIA [id number] [place] [address] [place] Monocytes (Bld) [#/Vol] 0.00 10*3/uL Normal <0.87 [facility] Comment on above: Order Comment: Speci men Type: BLOOD SPECIMENOrdering Facility: [facility] Address: [address] [place] [address] Performed By: #### 5 7021-8 ####[facility] LABCLIA [id number] [place] [address] [place] Monocytes/100 WBC (Bld) 0.0 % Normal [facility] Comment on above: Order Comment: Speci men Type: BLOOD SPECIMENOrdering Facility: [facility] Address: [address] [place] [address] Performed By: #### 5 7021-8 ####[facility] LABCLIA [id number] [place] [address] [place] Neutrophils (Bld) [#/Vol] 0.08 10*3/uL Low 1.45-7.50 [facility] Comment on above: Order Comment: Speci men Type: BLOOD SPECIMENOrdering Facility: [facility] Address: [address] [place] [address] Performed By: #### 5 7021-8 ####[facility] LABCLIA [id number] [place] [address] [place] Neutrophils/100 WBC (Bld) 8.4 % Normal [facility] Comment on above: Order Comment: Speci men Type: BLOOD SPECIMENOrdering Facility: [facility] Address: [address] [place] [address] Performed By: #### 5 7021-8 ####[facility] LABCLIA [id number] [place] [address] [place] Nucleated RBC (Bld) [#/Vol] 10*3/uL Normal <0.01 [facility] Comment on above: Order Comment: Speci men Type: BLOOD SPECIMENOrdering Facility: [facility] Address: [address] [place] [address] Performed By: #### 5 7021-8 ####[facility] LABCLIA [id number] [place] [address] [place] Nucleated RBC/100 WBC (Bld) [Ratio] 0.0 /100 WBC Normal [facility] Comment on above: Order Comment: Speci men Type: BLOOD SPECIMENOrdering Facility: [facility] Address: [address] [place] [address] Performed By: #### 5 7021-8 ####[facility] LABCLIA [id number] [place] [address] [place] Ovalocytes LM Ql (Bld) Few Normal [facility] Comment on above: Order Comment: Speci men Type: BLOOD SPECIMENOrdering Facility: [facility] Address: [address] [place] [address] Performed By: #### 5 7021-8 ####[facility] LABIA [id number] [place] [address] [place] Platelet mean volume (Bld) [Entitic vol] Normal [facility] Comment on above: Order Comment: Speci men Type: BLOOD SPECIMENOrdering Facility: [facility] Address: [address] [place] [address] Result Comment: Unab le to Report. Performed By: #### 5 7021-8 ####[facility] LABIA [id number] [place] [address] [place] Platelets (Bld) [#/Vol] 12 10*3/uL Low 150-400 [facility] Comment on above: Order Comment: Speci men Type: BLOOD SPECIMENOrdering Facility: [facility] Address: [address] [place] [address] Result Comment: Resu lts checked and verified.No clot detected. Performed By: #### 5 7021-8 ####[facility] LABIA [id number] [place] [address] [place] Platelets Estimate (Bld) [#/Vol] Decreased Normal [facility] Comment on above: Order Comment: Speci men Type: BLOOD SPECIMENOrdering Facility: [facility] Address: [address] [place] [address] Performed By: #### 5 7021-8 ####[facility] LABIA [id number] [place] [address] [place] RBC (Bld) [#/Vol] 3.00 10*6/uL Low 3.90-5.20 [facility] Comment on above: Order Comment: Speci men Type: BLOOD SPECIMENOrdering Facility: [facility] Address: [address] [place] [address] Performed By: #### 5 7021-8 ####[facility] LABCLIA [id number] [place] [address] [place] RBC FRAGMENTS Few Abnormal None Seen [facility] Comment on above: Order Comment: Speci men Type: BLOOD SPECIMENOrdering Facility: [facility] Address: [address] [place] [address] Performed By: #### 5 7021-8 ####[facility] LABCLIA [id number] [place] [address] [place] RED CELL MORPH Reviewed: see result s of individual morphologies Normal [facility] Comment on above: Order Comment: Speci men Type: BLOOD SPECIMENOrdering Facility: [facility] Address: [address] [place] [address] Performed By: #### 5 7021-8 ####[facility] LABIA [id number] [place] [address] [place] WBC (Bld) [#/Vol] 0.94 10*3/uL Low 3.70-11.00 [facility] Comment on above: Order Comment: Speci men Type: BLOOD SPECIMENOrdering Facility: [facility] Address: [address] [place] [address] Result Comment: No c lot detected. Performed By: #### 5 7021-8 ####[facility] LABIA [id number] [place] [address] [place] CBC panel Auto (Bld)on 06-06 Erythrocyte distribution width (RBC) [Ratio] 18.6 % High 11.5-15.0 [facility] Comment on above: Order Comment: Speci men Type: BLOOD SPECIMENOrdering Facility: [facility] Address: [address] [place] [address] Performed By: #### 5 8410-2 ####[facility] LABCLIA [id number] [place] [address] [place] Hematocrit (Bld) [Volume fraction] 21.7 % Low 36.0-46.0 [facility] Comment on above: Order Comment: Speci men Type: BLOOD SPECIMENOrdering Facility: [facility] Address: [address] [place] [address] Performed By: #### 5 8410-2 ####[facility] LABIA [id number] [place] [address] [place] Hemoglobin (Bld) [Mass/Vol] 7.3 g/dL Low 11.5-15.5 [facility] Comment on above: Order Comment: Speci men Type: BLOOD SPECIMENOrdering Facility: [facility] Address: [address] [place] [address] Performed By: #### 5 8410-2 ####[facility] LABIA [id number] [address] [place] MCH (RBC) [Entitic mass] 32.2 pg Normal 26.0-34.0 [facility] Comment on above: Order Comment: Speci men Type: BLOOD SPECIMENOrdering Facility: [facility] Address: [address] [place] [address] Performed By: #### 5 8410-2 ####[facility] LABIA [id number] [address] [place] MCHC (RBC) [Mass/Vol] 33.6 g/dL Normal 30.5-36.0 [facility] Comment on above: Order Comment: Speci men Type: BLOOD SPECIMENOrdering Facility: [facility] Address: [address] [place], [place] [address] Performed By: #### 5 8410-2 ####[facility] LABIA [id number] [address] [place] MCV (RBC) [Entitic vol] 95.6 fL Normal 80.0-100.0 [facility] Comment on above: Order Comment: Speci men Type: BLOOD SPECIMENOrdering Facility: [facility] Address: [address] [place] [address] Performed By: #### 5 8410-2 ####[facility] [id number] [place] [address] [place] Nucleated RBC (Bld) [#/Vol] 0.02 10*3/uL High <0.01 [facility] Comment on above: Order Comment: Speci men Type: BLOOD SPECIMENOrdering Facility: [facility] Address: [address] [place] [address] Performed By: #### 5 8410-2 ####[facility] [id number] [place] [address] [place] Platelet mean volume (Bld) [Entitic vol] Normal [facility] Comment on above: Order Comment: Speci men Type: BLOOD SPECIMENOrdering Facility: [facility] Address: [address] [place] [address] Result Comment: Unab le to Report. Performed By: #### 5 8410-2 ####[facility] [id number] [place] [address] [place] Platelets (Bld) [#/Vol] 14 10*3/uL Low 150-400 [facility] Comment on above: Order Comment: Speci men Type: BLOOD SPECIMENOrdering Facility: [facility] Address: [address] [place] [address] Result Comment: Resu lts checked and verified.No clot detected. Performed By: #### 5 8410-2 ####[facility] [id number] [place] [address] [place] RBC (Bld) [#/Vol] 2.27 10*6/uL Low 3.90-5.20 [facility] Comment on above: Order Comment: Speci men Type: BLOOD SPECIMENOrdering Facility: [facility] Address: [address] [place] [address] Performed By: #### 5 8410-2 ####[facility] LABCLIA [id number] [place] [address] [place] WBC (Bld) [#/Vol] 1.17 10*3/uL Low 3.70-11.00 [facility] Comment on above: Order Comment: Speci men Type: BLOOD SPECIMENOrdering Facility: [facility] Address: [address] [place] [address] Result Comment: No c lot detected. Performed By: #### 5 8410-2 ####[facility] LABCLIA [id number] [place] [address] [place] [facility] Comprehensive metabolic 2000 panelon 06-06-2023 Albumin [Mass/Vol] 3.6 g/dL Low 3.9-4.9 [facility] Comment on above: Order Comment: Speci men Type: BLOOD SPECIMENOrdering Facility: [facility] Address: [address] [place] [address] Performed By: #### 2 777-1, 3084-1, 48512-4, 77722-9 ####[facility] LABIA [id number] [place] [address] [place] ALP [Catalytic activity/Vol] 59 U/L Normal 34-123 [facility] Comment on above: Order Comment: Speci men Type: BLOOD SPECIMENOrdering Facility: [facility] Address: [address] [place], [place] [address] Performed By: #### 2 777-1, 3084-1, 35016-7, 69310-4 ####[facility] LABCLIA [id number] [address] OF MARY ALT [Catalytic activity/Vol] 21 U/L Normal 7-38 [facility] Comment on above: Order Comment: Speci men Type: BLOOD SPECIMENOrdering Facility: [facility] Address: [address] [place] [address] Performed By: #### 2 777-1, 3084-1, 10452-7, 15193-0 ####[facility] LABCLIA [id number] [address] [address] [place] Anion gap [Moles/Vol] 11 mmol/L Normal 9-18 [facility] Comment on above: Order Comment: Speci men Type: BLOOD SPECIMENOrdering Facility: [facility] Address: [address] [place], [place] [id number] Performed By: #### 2 777-1, 3084-1, 09834-5, ####[facility] LABCLIA [id number] [place] [address] [place] AST [Catalytic activity/Vol] 15 U/L Normal 13-35 [facility] Comment on above: Order Comment: Speci men Type: BLOOD SPECIMENOrdering Facility: [facility] Address: [address] [place], [place] [address] Performed By: #### 2 777-1, 3084-1, 58012-6, ####[facility] LABCLIA [id number] [place] [address] [place] Bilirubin [Mass/Vol] 0.4 mg/dL Normal 0.2-1.3 [facility] Comment on above: Order Comment: Speci men Type: BLOOD SPECIMENOrdering Facility: [facility] Address: [address] [place], [place] [address] Performed By: #### 2 777-1, 3084-1, 79660-8, ####[facility] LABCLIA [id number] [place] [id number] [place] Calcium [Mass/Vol] 8.8 mg/dL Normal 8.5-10.2 [facility] Comment on above: Order Comment: Speci men Type: BLOOD SPECIMENOrdering Facility: [facility] Address: [address] [place], [place] [address] Performed By: #### 2 777-1, 3084-1, 87554-9, 53274-5 ####[facility] LABCLIA [id number] [place] [id number] [place] Chloride [Moles/Vol] 108 mmol/L High 97-105 [facility] Comment on above: Order Comment: Speci men Type: BLOOD SPECIMENOrdering Facility: [facility] Address: [address] [place] [address] Performed By: #### 2 777-1, 3084-1, 35229-8, 58495-3 ####[facility] LABCLIA [id number] [place] [address] [place] CO2 [Moles/Vol] 21 mmol/L Low 22-30 [facility] Comment on above: Order Comment: Speci men Type: BLOOD SPECIMENOrdering Facility: [facility] Address: [address] [place] [address] Performed By: #### 2 777-1, 3084-1, 36406-0, 15106-1 ####[facility] LABCLIA [id number] [place] [address] [place] Creatinine [Mass/Vol] 1.06 mg/dL High 0.58-0.96 [facility] Comment on above: Order Comment: Speci men Type: BLOOD SPECIMENOrdering Facility: [facility] Address: [address] [place], [place] [address] Performed By: #### 2 777-1, 3084-1, 37143-7, 52232-1 ####[facility] LABCLIA [id number] [place] [id number] [place] Creatinine and Glomerular filtration rate.predicted panel (S/P/Bld) 57 mL/min/1.73m??? Low >=60 [facility] Comment on above: Order Comment: Speci men Type: BLOOD SPECIMENOrdering Facility: [facility] Address: [address] [place] [address] Result Comment: Berenice mated Glomerular Filtration Rate [...] GFR. Performed By: #### 2 777-1, 3084-1, 12584-3, ####[facility] LABIA [id number] [address] [address] [place] Glucose [Mass/Vol] 107 mg/dL High 74-99 [facility] Comment on above: Order Comment: Elvia escobar Type: BLOOD SPECIMENOrdering Facility: [facility] Address: [address] Result Comment: [place] [...] 1). Performed By: #### 2 777-1, 3084-1, 69332-1, ####[facility] LABIA [id number] [place] [id number] [place] Potassium [Moles/Vol] 3.4 mmol/L Low 3.7-5.1 [facility] Comment on above: Order Comment: Specmaria eugenia men Type: BLOOD SPECIMENOrdering Facility: [facility] Address: [address] [place] [phone] Performed By: #### 2 777-1, 3084-1, 81556-8, 58639-3 ####[facility] LABIA [id number] [place] [id number] [place] Protein [Mass/Vol] 5.6 g/dL Low 6.3-8.0 [facility] Comment on above: Order Comment: Speci men Type: BLOOD SPECIMENOrdering Facility: [facility] Address: [address] [place] [address] Performed By: #### 2 777-1, 3084-1, 73414-7, 17364-4 ####[facility] [id number] [place] [address] [place] Sodium [Moles/Vol] 140 mmol/L Normal 136-144 [facility] Comment on above: Order Comment: Speci men Type: BLOOD SPECIMENOrdering Facility: [facility] Address: [address] [place] [address] Performed By: #### 2 777-1, 3084-1, 01588-1, 22436-7 ####[facility] [id number] [place] [address] [place] Urea nitrogen [Mass/Vol] 16 mg/dL Normal 7-21 [facility] Comment on above: Order Comment: Speci men Type: BLOOD SPECIMENOrdering Facility: [facility] Address: [address] [place], [place] [address] Performed By: #### 2 777-1, 3084-1, 04762-1, 66801-2 ####[facility] [id number] [place] [id number] [place] Magnesium SerPl-mCncon 06-06 Magnesium [Mass/Vol] 2.0 mg/dL Normal 1.7-2.3 [facility] Comment on above: Order Comment: Speci men Type: BLOOD SPECIMENOrdering Facility: [facility] Address: [address] [place] [address] Performed By: #### 2 777-1, 3084-1, 91212-1, ####[facility] LABCLIA [id number] [place] [address] [place] Phosphate SerPl-mCncon 06-06 Phosphate [Mass/Vol] 2.8 mg/dL Normal 2.7-4.8 [facility] Comment on above: Order Comment: Speci men Type: BLOOD SPECIMENOrdering Facility: [facility] Address: [address] [place] [address] Performed By: #### 2 777-1, 3084-1, 90313-4, ####[facility] LABCLIA [id number] [place] [address] [place] TYPE + SCREENon 06-06-2023 ABO O Normal [facility] Comment on above: Order Comment: Speci men Type: BLOOD SPECIMENOrdering Facility: [facility] Address: [address] [place] [address] Performed By: #### T SCR ####[facility] BLOOD BANKCLIA [id number] [place] [address] [place] HISTORICAL AB SCR STATUS Negative Normal [facility] Comment on above: Order Comment: Speci men Type: BLOOD SPECIMENOrdering Facility: [facility] Address: [address] [place] [address] Performed By: #### T SCR ####[facility] B[facility]OD BANKCLIA [id number] [place] [address] [place] Rh Nom (Bld) Positive Normal [facility] Comment on above: Order Comment: Speci men Type: BLOOD SPECIMENOrdering Facility: [facility] Address: [address] [place] [address] Performed By: #### T SCR ####[facility] BLOOD BANKCLIA [id number] [address] STATES OF [facility] TYPE AND SCREEN EXPIRATION 06/09/2023 23:59 Normal [facility] Comment on above: Order Comment: Speci men Type: BLOOD SPECIMENOrdering Facility: [facility] Address: [address] [place] [address] Performed By: #### T SCR ####[facility] BLOOD BANKCLIA [id number] [place] [address] [place] Urate SerPl-mCncon 3 Urate [Mass/Vol] 2.9 mg/dL Normal 2.5-6.6 [facility] Comment on above: Order Comment: Speci men Type: BLOOD SPECIMENOrdering Facility: [facility] Address: [address] [place] [address] Performed By: #### 2 777-1, 3084-1, 46069-4, 52556-2 ####[facility] LABCLIA [id number] [place] [address] [place] CBC W Auto Differential pane l (Bld)on 06-05-2023 Anisocytosis Ql (Bld) Present Normal [facility] Comment on above: Order Comment: Speci men Type: BLOOD SPECIMENOrdering Facility: [facility] Address: [address] [place] [address] Performed By: #### 5 7021-8 ####[facility] LABCLIA [id number] [address] [place] Basophils (Bld) [#/Vol] 0.00 10*3/uL Normal <0.11 [facility] Comment on above: Order Comment: Speci men Type: BLOOD SPECIMENOrdering Facility: [facility] Address: [address] [place] [address] Performed By: #### 5 7021-8 ####[facility] LABCLIA [id number] [address] Basophils/100 WBC (Bld) 0.0 % Normal [facility] Comment on above: Order Comment: Speci men Type: BLOOD SPECIMENOrdering Facility: [facility] Address: [address] Performed By: #### 5 7021-8 ####[facility] LABCLIA [id number] [place] [address] [place] Dacrocytes LM Ql (Bld) Few Normal [facility] Comment on above: Order Comment: Speci men Type: BLOOD SPECIMENOrdering Facility: [facility] Address: [address] [place], [place] [address] Performed By: #### 5 7021-8 ####[facility] LABCLIA [id number] [address] [place] Differential cell count method Nom (Bld) Manual Normal [facility] Comment on above: Order Comment: Speci men Type: BLOOD SPECIMENOrdering Facility: [facility] Address: [address] [place], [place] [address] Performed By: #### 5 7021-8 ####[facility] LABCLIA [id number] [address] [place] Eosinophils (Bld) [#/Vol] 0.02 10*3/uL Normal <0.46 [facility] Comment on above: Order Comment: Speci men Type: BLOOD SPECIMENOrdering Facility: [facility] Address: [address] Performed By: #### 5 7021-8 ####[facility] LABCLIA [id number] [address] [place] Eosinophils/100 WBC (Bld) 1.7 % Normal [facility] Comment on above: Order Comment: Speci men Type: BLOOD SPECIMENOrdering Facility: [facility] Address: [address] [place], [place] [address] Performed By: #### 5 7021-8 ####[facility] LABCLIA [id number] [place] [address] [place] Erythrocyte distribution width (RBC) [Ratio] 19.0 % High 11.5-15.0 [facility] Comment on above: Order Comment: Speci men Type: BLOOD SPECIMENOrdering Facility: [facility] Address: [address] [place] [address] Performed By: #### 5 7021-8 ####[facility] LABIA [id number] [place] [address] [place] Hematocrit (Bld) [Volume fraction] 21.7 % Low 36.0-46.0 [facility] Comment on above: Order Comment: Speci men Type: BLOOD SPECIMENOrdering Facility: [facility] Address: [address] [place] [address] Performed By: #### 5 7021-8 ####[facility] LABIA [id number] [place] [address] [place] Hemoglobin (Bld) [Mass/Vol] 7.4 g/dL Low 11.5-15.5 [facility] Comment on above: Order Comment: Speci men Type: BLOOD SPECIMENOrdering Facility: [facility] Address: [address] [place] [address] Performed By: #### 5 7021-8 ####[facility] LABIA [id number] [place] [address] [place] Lymphocytes (Bld) [#/Vol] 1.09 10*3/uL Normal 1.00-4.00 [facility] Comment on above: Order Comment: Speci men Type: BLOOD SPECIMENOrdering Facility: [facility] Address: [address] [place] [address] Performed By: #### 5 7021-8 ####[facility] LABIA [id number] [place] [address] [place] Lymphocytes/100 WBC (Bld) 85.2 % Normal [facility] Comment on above: Order Comment: Speci men Type: BLOOD SPECIMENOrdering Facility: [facility] Address: [address] [place], [place] [address] Performed By: #### 5 7021-8 ####[facility] LABIA [id number] [address] [place] [facility] MCH (RBC) [Entitic mass] 32.2 pg Normal 26.0-34.0 [facility] Comment on above: Order Comment: Speci men Type: BLOOD SPECIMENOrdering Facility: [facility] Address: [address] [place], [place] [address] Performed By: #### 5 7021-8 ####[facility] LABIA [id number] [address] [place] MCHC (RBC) [Mass/Vol] 34.1 g/dL Normal 30.5-36.0 [facility] Comment on above: Order Comment: Speci men Type: BLOOD SPECIMENOrdering Facility: [facility] Address: [address] [place], [place] [address] Performed By: #### 5 7021-8 ####[facility] LABIA [id number] [place] [address] [place] MCV (RBC) [Entitic vol] 94.3 fL Normal 80.0-100.0 [facility] Comment on above: Order Comment: Speci men Type: BLOOD SPECIMENOrdering Facility: [facility] Address: [address] [place], [place] [address] Performed By: #### 5 7021-8 ####[facility] LABIA [id number] [place] [address] [place] Monocytes (Bld) [#/Vol] 0.01 10*3/uL Normal <0.87 [facility] Comment on above: Order Comment: Speci men Type: BLOOD SPECIMENOrdering Facility: [facility] Address: [address] Performed By: #### 5 7021-8 ####[facility] LABCLIA [id number] [address] [place] Monocytes/100 WBC (Bld) 0.9 % Normal [facility] Comment on above: Order Comment: Speci men Type: BLOOD SPECIMENOrdering Facility: [facility] Address: [address] Performed By: #### 5 7021-8 ####[facility] LABIA [id number] [place] [address] [place] Neutrophils (Bld) [#/Vol] 0.16 10*3/uL Low 1.45-7.50 [facility] Comment on above: Order Comment: Speci men Type: BLOOD SPECIMENOrdering Facility: [facility] Address: [address] Performed By: #### 5 7021-8 ####[facility] LABIA [id number] [address] [place] Neutrophils/100 WBC (Bld) 12.2 % Normal [facility] Comment on above: Order Comment: Speci men Type: BLOOD SPECIMENOrdering Facility: [facility] Address: [address] Performed By: #### 5 7021-8 ####[facility] LABIA [id number] [place] [address] [place] Nucleated RBC (Bld) [#/Vol] 0.01 10*3/uL High <0.01 [facility] Comment on above: Order Comment: Speci men Type: BLOOD SPECIMENOrdering Facility: [facility] Address: [address] Performed By: #### 5 7021-8 ####[facility] LABCLIA [id number] [address] [place] Nucleated RBC/100 WBC (Bld) [Ratio] 0.9 /100 WBC Normal [facility] Comment on above: Order Comment: Speci men Type: BLOOD SPECIMENOrdering Facility: [facility] Address: [address] [place] [address] Performed By: #### 5 7021-8 ####[facility] LABCLIA [id number] [place] [address] [place] Ovalocytes LM Ql (Bld) Few Normal [facility] Comment on above: Order Comment: Speci men Type: BLOOD SPECIMENOrdering Facility: [facility] Address: [address] [place] [address] Performed By: #### 5 7021-8 ####[facility] [id number] [place] [address] [place] Platelet mean volume (Bld) [Entitic vol] Normal [facility] Comment on above: Order Comment: Speci men Type: BLOOD SPECIMENOrdering Facility: [facility] Address: [address] [place] [address] Result Comment: Unab le to Report. Performed By: #### 5 7021-8 ####[facility] LABIA [id number] [place] [address] [place] Platelets (Bld) [#/Vol] 7 10*3/uL Critically low 150-400 [facility] Comment on above: Order Comment: Speci men Type: BLOOD SPECIMENOrdering Facility: [facility] Address: [address] [place] [address] Result Comment: Plat elet count confirmed by manual review of peripheral blood smear. No clot detected.Results checked and verified. Performed By: #### 5 7021-8 ####[facility] LABIA [id number] [place] [address] [place] Platelets Estimate (Bld) [#/Vol] Adequate Normal [facility] Comment on above: Order Comment: Speci men Type: BLOOD SPECIMENOrdering Facility: [facility] Address: [address] [place] [address] Performed By: #### 5 7021-8 ####[facility] LABCLIA [id number] [address] [place] RBC (Bld) [#/Vol] 2.30 10*6/uL Low 3.90-5.20 [facility] Comment on above: Order Comment: Speci men Type: BLOOD SPECIMENOrdering Facility: [facility] Address: [address] [place] [address] Performed By: #### 5 7021-8 ####[facility] LABIA [id number] [address] STATES OF [facility] RED CELL MORPH Reviewed: see result s of individual morphologies Normal [facility] Comment on above: Order Comment: Speci men Type: BLOOD SPECIMENOrdering Facility: [facility] Address: [address] [place] [address] Performed By: #### 5 7021-8 ####[facility] LABIA [id number] [address] WBC (Bld) [#/Vol] 1.28 10*3/uL Low 3.70-11.00 [facility] Comment on above: Order Comment: Speci men Type: BLOOD SPECIMENOrdering Facility: [facility] Address: [address] [place], [place] [address] Result Comment: No c lot detected. Performed By: #### 5 7021-8 ####[facility] LABIA [id number] [place] [address] [place] Comprehensive metabolic 2000 panelon 06-05-2023 Albumin [Mass/Vol] 3.3 g/dL Low 3.9-4.9 [facility] Comment on above: Order Comment: Speci men Type: BLOOD SPECIMENOrdering Facility: [facility] Address: [address] Performed By: #### 2 4323-8, 81179-8, 2776-, 3084-1 ####[facility] LABCLIA [id number] [place] [address] [place] ALP [Catalytic activity/Vol] 51 U/L Normal 34-123 [facility] Comment on above: Order Comment: Speci men Type: BLOOD SPECIMENOrdering Facility: [facility] Address: [address] [place] [address] Performed By: #### 2 4323-8, 43694-5, 2776-, 3084- ####[facility] LABCLIA [id number] [place] [address] [place] ALT [Catalytic activity/Vol] 19 U/L Normal 7-38 [facility] Comment on above: Order Comment: Speci men Type: BLOOD SPECIMENOrdering Facility: [facility] Address: [address] [place] [address] Performed By: #### 2 4323-8, 35274-3, 2776-, 308- ####[facility] LABCLIA [id number] [place] [address] [place] Anion gap [Moles/Vol] 11 mmol/L Normal 9-18 [facility] Comment on above: Order Comment: Speci men Type: BLOOD SPECIMENOrdering Facility: [facility] Address: [address] [place] [address] Performed By: #### 2 4323-8, 40477-7, 2776-, 308- ####[facility] LABCLIA [id number] [place] [address] [place] AST [Catalytic activity/Vol] 21 U/L Normal 13-35 [facility] Comment on above: Order Comment: Speci men Type: BLOOD SPECIMENOrdering Facility: [facility] Address: [address] Performed By: #### 2 4323-8, 65352-1, 2776-1, 3084-1 ####[facility] LABCLIA [id number] [place] [address] [place] Bilirubin [Mass/Vol] 0.4 mg/dL Normal 0.2-1.3 [facility] Comment on above: Order Comment: Speci men Type: BLOOD SPECIMENOrdering Facility: [facility] Address: [address] [place] [address] Performed By: #### 2 4323-8, 95231-1, 2776-, 3084-1 ####[facility] LABIA [id number] [place] [address] [place] Calcium [Mass/Vol] 8.7 mg/dL Normal 8.5-10.2 [facility] Comment on above: Order Comment: Speci men Type: BLOOD SPECIMENOrdering Facility: [facility] Address: [address] [place] [address] Performed By: #### 2 4323-8, 34200-2, 2776-, 308-1 ####[facility] LABIA [id number] [place] [address] [place] Chloride [Moles/Vol] 108 mmol/L High 97-105 [facility] Comment on above: Order Comment: Speci men Type: BLOOD SPECIMENOrdering Facility: [facility] Address: [address] [place], [place] [address] Performed By: #### 2 4323-8, 91998-7, 2776-, 3084-1 ####[facility] LABCLIA [id number] [place] [address] [place] CO2 [Moles/Vol] 22 mmol/L Normal 22-30 [facility] Comment on above: Order Comment: Speci men Type: BLOOD SPECIMENOrdering Facility: [facility] Address: [address] [place], [place] [address] Performed By: #### 2 4323-8, 58891-4, 2776-, 3083- ####[facility] LABIA [id number] [place] [address] [place] Creatinine [Mass/Vol] 1.06 mg/dL High 0.58-0.96 [facility] Comment on above: Order Comment: Speci men Type: BLOOD SPECIMENOrdering Facility: [facility] Address: [address] [place] [address] Performed By: #### 2 4323-8, 97197-4, 2776-09, 3083- ####[facility] [id number] [place] [address] [place] Creatinine and Glomerular filtration rate.predicted panel (S/P/Bld) 57 mL/min/1.73m??? Low >=60 [facility] Comment on above: Order Comment: Speci men Type: BLOOD SPECIMENOrdering Facility: [facility] Address: [address] [place] [address] Result Comment: Berenice mated Glomerular Filtration Rate [...] actual GFR. Performed By: #### 2 4323-8, 74642-7, 2776-09, 3083- ####[facility] LABIA [id number] [place] [address] [place] Glucose [Mass/Vol] 99 mg/dL Normal 74-99 [facility] Comment on above: Order Comment: Speci men Type: BLOOD SPECIMENOrdering Facility: [facility] Address: [address] [place] [address] Result Comment: [place] [...] 2016.39(Suppl 1). Performed By: #### 2 4323-8, 73324-1, 2776-, 3083- ####[facility] LABCLIA [id number] [address] [address] [place] Potassium [Moles/Vol] 3.5 mmol/L Low 3.7-5.1 [facility] Comment on above: Order Comment: Elvia men Type: BLOOD SPECIMENOrdering Facility: [facility] Address: [address] [place] [address] Performed By: #### 2 4323-8, 50133-4, 2776-09, 3083-09 ####[facility] LABIA [id number] [place] [address] [place] Protein [Mass/Vol] 5.5 g/dL Low 6.3-8.0 [facility] Comment on above: Order Comment: Elvia escobar Type: BLOOD SPECIMENOrdering Facility: [facility] Address: [address] [place] [address] Performed By: #### 2 4323-8, 55649-7, 2776-09, 3083- ####[facility] LABCLIA [id number] [address] [address] [place] Sodium [Moles/Vol] 141 mmol/L Normal 136-144 [facility] Comment on above: Order Comment: Rochellei men Type: BLOOD SPECIMENOrdering Facility: [facility] Address: [address] [place], [place] [id number] Performed By: #### 2 4323-8, 63643-9, 2776-, 3084-1 ####[facility] LABCLIA [id number] [place] [id number] [place] Urea nitrogen [Mass/Vol] 12 mg/dL Normal 7-21 [facility] Comment on above: Order Comment: Speci men Type: BLOOD SPECIMENOrdering Facility: [facility] Address: [address] [place] [address] Performed By: #### 2 4323-8, 22322-6, 2776-, 3084-1 ####[facility] LABCLIA [id number] [place] [address] [place] Magnesium SerPl-mCncon 06-05 Magnesium [Mass/Vol] 2.0 mg/dL Normal 1.7-2.3 [facility] Comment on above: Order Comment: Speci men Type: BLOOD SPECIMENOrdering Facility: [facility] [facility] Address: [address] [place] [address] Performed By: #### 2 4323-8, 05501-6, 27703-03, 308-1 ####[facility] LABCLIA [id number] [place] [address] [place] NURSING PROGon 06-05-2023 NURSING PROG Normal [facility] NUTRITIONon 06-05-2023 NUTRITION Normal [facility] OUTSIDE BONE MARROW SLIDE RE VIEWon 06-05-2023 CASE REPORT Normal [facility] Comment on above: Order Comment: Speci men Type: FORMALIN-FIXED PARAFFIN-EMBEDDED TISSUE SPECIMENOrdering Facility: [facility] Outside Review Address: , , Result Comment: Bone Marrow Pathology Report Case: [id number] Provider: Mike Hughes MD Collected: 06/05/2023 04:00 PMOrdering Location: [facility] Received: 06/05/2023 03:57 PMPathologist: Mihaela Flowers MDSpecimen: SLIDE(S), 26 SLIDES (BM23-11) Performed By: #### L [id number] ####[facility] LABIA [id number] [place] [id number] [place] DIAGNOSIS COMMENT Normal [facility] Comment on above: Order Comment: Speci [...] Dixon from the hematopathology section at the [facility], and he concurs with the above rendered final diagnosis and interpretation. 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)- Increased stainable iron.- Lymphoid aggregates present, favor benign.Peripheral blood smear:- Pancytopenia with macrocytic anemia, absolute neutropenia and few circulating blasts.June 13, 2023 Performed By: #### L [id number] ####[facility] LABCLIA [id number] [address] OF [place] FINAL PERFORMING LAB Normal [facility] Comment on above: Order Comment: Speci men Type: FORMALIN-FIXED PARAFFIN-EMBEDDED TISSUE SPECIMENOrdering Facility: [facility] Outside Review Address: , , Result Comment: Diag nostic interpretation performed at [facility], [address] [place] [address] CLIA# [id number] Director: Boris Wood M.D. Performed By: #### L [id number] ####[facility] LABCLIA [id number] [address] MICROSCOPIC DESCRIPTION Normal [facility] Comment on above: Order Comment: [...] institution performed on the core biopsy (block [id number]) were reviewed at the [facility]. CD34 is difficult to interpret due [...] institution performed on the clot section (block AZ14-25-C4) were reviewed at the [facility]. CD3 highlights moderate numbers scattered positive [...] section.ANCILLARY TESTS: Ancillary studies were performed at [facility] (see complete scanned reports in [facility] for detailed results). Flow cytometry: ([id number]) Reported to show CD34 positive blasts, comprising 29.8% of total cells that show expression of CD13, CD33, CD34 mod, CD117, HLA-DR, dim CD123, and are negative for cMPO, cCD3, cCD22, cCD79a, Tdt and CD11b. Cytogenetics: ([id number], 05/08/2023) were reported to show an abnormal complex female karyotype.43~45,XX,add(1)(q21),del(3)(q21q25),add(4)(q21),-5,add(7)( q11.2),del(7)(q32),-9,add(9)(q13),nehemiah(11)t(1;11)(q21;q23).-12.-16,+m ar[cp17]. FISH: N/A. Molecular: ([id number]) Molecular NGS studies were reported to show the following clinically significant variants:DNMT3A R635W (VAF 34.4%)RUNX1 F40Wfs*14 (VAF 20.9%)TP53 C238Y (VAF 63.9%) Performed By: #### L [id number] ####[facility] [id number] [place] [address] [place] Phosphate SerPl-mCncon 06-05 Phosphate [Mass/Vol] 2.6 mg/dL Low 2.7-4.8 [facility] Comment on above: Order Comment: Speci men Type: BLOOD SPECIMENOrdering Facility: [facility] Address: [address] [place], [place] [address] Performed By: #### 2 4323-8, 10665-3, 2777-1, 3084-1 ####[facility] LABIA [id number] [place] [address] [place] Urate SerPl-mCncon 3 Urate [Mass/Vol] 3.0 mg/dL Normal 2.5-6.6 [facility] Comment on above: Order Comment: Speci men Type: BLOOD SPECIMENOrdering Facility: [facility] Address: [address] [place] [address] Performed By: #### 2 4323-8, 68994-4, 2777-1, 3084-1 ####[facility] LABCLIA [id number] [place] [address] [place] CASE MANAGEMon 06-04-2023 CASE MANAGEM Normal [facility] CBC W Auto Differential pane l (Bld)on 06-04-2023 Anisocytosis Ql (Bld) Present Normal [facility] Comment on above: Order Comment: Speci men Type: BLOOD SPECIMENOrdering Facility: [facility] Address: [address] [place] [address] Performed By: #### 5 7021-8 ####[facility] LABCLIA [id number] [place] [address] [place] Basophils (Bld) [#/Vol] 0.00 10*3/uL Normal <0.11 [facility] Comment on above: Order Comment: Speci men Type: BLOOD SPECIMENOrdering Facility: [facility] Address: [address] [place] [address] Performed By: #### 5 7021-8 ####[facility] LABCLIA [id number] [place] [address] [place] Basophils/100 WBC (Bld) 0.0 % Normal [facility] Comment on above: Order Comment: Speci men Type: BLOOD SPECIMENOrdering Facility: [facility] Address: [address] [place] [address] Performed By: #### 5 7021-8 ####[facility] LABCLIA [id number] [address] [place] BLAST% 1.0 % High <=0.0 [facility] Comment on above: Order Comment: Speci men Type: BLOOD SPECIMENOrdering Facility: [facility] Address: [address] Performed By: #### 5 7021-8 ####[facility] LABCLIA [id number] [place] [address] [place] Differential cell count method Nom (Bld) Manual Normal [facility] Comment on above: Order Comment: Speci men Type: BLOOD SPECIMENOrdering Facility: [facility] Address: [address] [place], [place] [address] Performed By: #### 5 7021-8 ####[facility] LABCLIA [id number] [place] [address] [place] Eosinophils (Bld) [#/Vol] 0.01 10*3/uL Normal <0.46 [facility] Comment on above: Order Comment: Speci men Type: BLOOD SPECIMENOrdering Facility: [facility] Address: [address] [place], [place] [address] Performed By: #### 5 7021-8 ####[facility] LABCLIA [id number] [place] [address] [place] Eosinophils/100 WBC (Bld) 1.0 % Normal [facility] Comment on above: Order Comment: Speci men Type: BLOOD SPECIMENOrdering Facility: [facility] Address: [address] [place], [place] [address] Performed By: #### 5 7021-8 ####[facility] LABCLIA [id number] [place] [address] [place] Erythrocyte distribution width (RBC) [Ratio] 19.4 % High 11.5-15.0 [facility] Comment on above: Order Comment: Speci men Type: BLOOD SPECIMENOrdering Facility: [facility] Address: [address] [place], [place] [address] Performed By: #### 5 7021-8 ####[facility] LABCLIA [id number] [place] [address] [place] Hematocrit (Bld) [Volume fraction] 22.8 % Low 36.0-46.0 [facility] Comment on above: Order Comment: Speci men Type: BLOOD SPECIMENOrdering Facility: [facility] Address: [address] [place] [address] Performed By: #### 5 7021-8 ####[facility] LABIA [id number] [place] [address] [place] Hemoglobin (Bld) [Mass/Vol] 7.9 g/dL Low 11.5-15.5 [facility] Comment on above: Order Comment: Speci men Type: BLOOD SPECIMENOrdering Facility: [facility] Address: [address] [place] [address] Performed By: #### 5 7021-8 ####[facility] LABIA [id number] [place] [address] [place] Lymphocytes (Bld) [#/Vol] 1.06 10*3/uL Normal 1.00-4.00 [facility] Comment on above: Order Comment: Speci men Type: BLOOD SPECIMENOrdering Facility: [facility] Address: [address] [place] [address] Performed By: #### 5 7021-8 ####[facility] LABIA [id number] [place] [address] [place] Lymphocytes/100 WBC (Bld) 87.0 % Normal [facility] Comment on above: Order Comment: Speci men Type: BLOOD SPECIMENOrdering Facility: [facility] Address: [address] [place], [place] [address] Performed By: #### 5 7021-8 ####[facility] LABIA [id number] [place] [address] [place] MCH (RBC) [Entitic mass] 32.6 pg Normal 26.0-34.0 [facility] Comment on above: Order Comment: Speci men Type: BLOOD SPECIMENOrdering Facility: [facility] Address: [address] Performed By: #### 5 7021-8 ####[facility] LABCLIA [id number] [place] [address] [place] MCHC (RBC) [Mass/Vol] 34.6 g/dL Normal 30.5-36.0 [facility] Comment on above: Order Comment: Speci men Type: BLOOD SPECIMENOrdering Facility: [facility] Address: [address] [place], [place] [address] Performed By: #### 5 7021-8 ####[facility] LABIA [id number] [place] [address] [place] MCV (RBC) [Entitic vol] 94.2 fL Normal 80.0-100.0 [facility] Comment on above: Order Comment: Speci men Type: BLOOD SPECIMENOrdering Facility: [facility] Address: [address] [place], [place] [address] Performed By: #### 5 7021-8 ####[facility] LABIA [id number] [place] [address] [place] Monocytes (Bld) [#/Vol] 0.00 10*3/uL Normal <0.87 [facility] Comment on above: Order Comment: Speci men Type: BLOOD SPECIMENOrdering Facility: [facility] Address: [address] Performed By: #### 5 7021-8 ####[facility] LABIA [id number] [address] [place] Monocytes/100 WBC (Bld) 0.0 % Normal [facility] Comment on above: Order Comment: Speci men Type: BLOOD SPECIMENOrdering Facility: [facility] Address: [address] [place], [place] [address] Performed By: #### 5 7021-8 ####[facility] LABCLIA [id number] [place] [address] [place] Neutrophils (Bld) [#/Vol] 0.13 10*3/uL Low 1.45-7.50 [facility] Comment on above: Order Comment: Speci men Type: BLOOD SPECIMENOrdering Facility: [facility] Address: [address] [place], [place] [address] Performed By: #### 5 7021-8 ####[facility] LABCLIA [id number] [place] [address] [place] Neutrophils/100 WBC (Bld) 11.0 % Normal [facility] Comment on above: Order Comment: Speci men Type: BLOOD SPECIMENOrdering Facility: [facility] Address: [address] [place], [place] [address] Performed By: #### 5 7021-8 ####[facility] LABCLIA [id number] [place] [address] [place] Nucleated RBC (Bld) [#/Vol] 0.01 10*3/uL High <0.01 [facility] Comment on above: Order Comment: Speci men Type: BLOOD SPECIMENOrdering Facility: [facility] Address: [address] [place], [place] [address] Performed By: #### 5 7021-8 ####[facility] LABCLIA [id number] [place] [address] [place] Nucleated RBC/100 WBC (Bld) [Ratio] 1.0 /100 WBC Normal [facility] Comment on above: Order Comment: Speci men Type: BLOOD SPECIMENOrdering Facility: [facility] Address: [address] [place], [place] [address] Performed By: #### 5 7021-8 ####[facility] LABCLIA [id number] [place] [address] [place] Ovalocytes LM Ql (Bld) Few Normal [facility] Comment on above: Order Comment: Speci men Type: BLOOD SPECIMENOrdering Facility: [facility] Address: [address] [place] [address] Performed By: #### 5 7021-8 ####[facility] LABCLIA [id number] [place] [address] [place] Platelet mean volume (Bld) [Entitic vol] Normal [facility] Comment on above: Order Comment: Speci men Type: BLOOD SPECIMENOrdering Facility: [facility] Address: [address] [place] [address] Result Comment: Unab le to Report. Performed By: #### 5 7021-8 ####[facility] LABCLIA [id number] [place] [address] [place] Platelets (Bld) [#/Vol] 11 10*3/uL Low 150-400 [facility] Comment on above: Order Comment: Speci men Type: BLOOD SPECIMENOrdering Facility: [facility] Address: [address] [place] [address] Result Comment: No c lot detected.Results checked and verified. Performed By: #### 5 7021-8 ####[facility] LABCLIA [id number] [place] [address] [place] Platelets Estimate (Bld) [#/Vol] Decreased Normal [facility] Comment on above: Order Comment: Speci men Type: BLOOD SPECIMENOrdering Facility: [facility] Address: [address] [place] [address] Performed By: #### 5 7021-8 ####[facility] LABCLIA [id number] [place] [address] [place] RBC (Bld) [#/Vol] 2.42 10*6/uL Low 3.90-5.20 [facility] Comment on above: Order Comment: Speci men Type: BLOOD SPECIMENOrdering Facility: [facility] Address: [address] [place] [address] Performed By: #### 5 7021-8 ####[facility] LABCLIA [id number] [place] [address] [place] RBC FRAGMENTS Few Abnormal None Seen [facility] Comment on above: Order Comment: Speci men Type: BLOOD SPECIMENOrdering Facility: [facility] Address: [address] [place] [address] Performed By: #### 5 7021-8 ####[facility] LABIA [id number] [place] [address] [place] RED CELL MORPH Reviewed: see result s of individual morphologies Normal [facility] Comment on above: Order Comment: Speci men Type: BLOOD SPECIMENOrdering Facility: [facility] Address: [address] [place] [address] Performed By: #### 5 7021-8 ####[facility] LABIA [id number] [place] [address] [place] WBC (Bld) [#/Vol] 1.22 10*3/uL Low 3.70-11.00 [facility] Comment on above: Order Comment: Speci men Type: BLOOD SPECIMENOrdering Facility: [facility] Address: [address] [place] [address] Result Comment: No c lot detected. Performed By: #### 5 7021-8 ####[facility] LABIA [id number] [place] [address] [place] Comprehensive metabolic 2000 panelon 06-04-2023 Albumin [Mass/Vol] 3.7 g/dL Low 3.9-4.9 [facility] Comment on above: Order Comment: Speci men Type: BLOOD SPECIMENOrdering Facility: [facility] Address: [address] [place] [address] Performed By: #### 1 9123-9, 2777-1, 30812-02, 35623-0 ####[facility] LABCLIA [id number] [place] [address] [place] ALP [Catalytic activity/Vol] 55 U/L Normal 34-123 [facility] Comment on above: Order Comment: Speci men Type: BLOOD SPECIMENOrdering Facility: [facility] Address: [address] [place] [address] Performed By: #### 1 9123-9, 277-, 3083-09, 11069-3 ####[facility] LABCLIA [id number] [place] [address] [place] ALT [Catalytic activity/Vol] 17 U/L Normal 7-38 [facility] Comment on above: Order Comment: Speci men Type: BLOOD SPECIMENOrdering Facility: [facility] Address: [address] [place] [address] Performed By: #### 1 9123-9, 277-, 3083-09, 93831-4 ####[facility] LABIA [id number] [place] [address] [place] Anion gap [Moles/Vol] 11 mmol/L Normal 9-18 [facility] Comment on above: Order Comment: Speci men Type: BLOOD SPECIMENOrdering Facility: [facility] Address: [address] [place], [place] [address] Performed By: #### 1 9123-9, 277-, 3083-09, 92756-1 ####[facility] LABCLIA [id number] [place] [id number] [place] AST [Catalytic activity/Vol] 14 U/L Normal 13-35 [facility] Comment on above: Order Comment: Speci men Type: BLOOD SPECIMENOrdering Facility: [facility] Address: [address] [place], [place] [address] Performed By: #### 1 9123-9, 277-1, 3083-09, 91329-3 ####[facility] LABCLIA [id number] [place] [address] [place] Bilirubin [Mass/Vol] 0.5 mg/dL Normal 0.2-1.3 [facility] Comment on above: Order Comment: Speci men Type: BLOOD SPECIMENOrdering Facility: [facility] Address: [address] [place] [address] Performed By: #### 1 9123-9, 277-, 3083-09, 00905-8 ####[facility] LABIA [id number] [place] [address] [place] Calcium [Mass/Vol] 9.0 mg/dL Normal 8.5-10.2 [facility] Comment on above: Order Comment: Speci men Type: BLOOD SPECIMENOrdering Facility: [facility] Address: [address] [place] [address] Performed By: #### 1 9123-9, 277-, 3083-09, 10602-0 ####[facility] [id number] [place] [address] [place] Chloride [Moles/Vol] 107 mmol/L High 97-105 [facility] Comment on above: Order Comment: Speci men Type: BLOOD SPECIMENOrdering Facility: [facility] Address: [address] [place], [place] [address] Performed By: #### 1 9123-9, 277-, 3083-09, 88400-0 ####[facility] LABIA [id number] [place] [id number] [place] CO2 [Moles/Vol] 23 mmol/L Normal 22-30 [facility] Comment on above: Order Comment: Speci men Type: BLOOD SPECIMENOrdering Facility: [facility] Address: [address] [place] [address] Performed By: #### 1 9123-9, 277-1, 3083-09, 38878-2 ####[facility] LABIA [id number] [place] [id number] [place] Creatinine [Mass/Vol] 0.99 mg/dL High 0.58-0.96 [facility] Comment on above: Order Comment: Elvia escobar Type: BLOOD SPECIMENOrdering Facility: [facility] Address: [address] [place] [address] Performed By: #### 1 9123-9, 2777-1, 3083-09, ####[facility] LABIA [id number] [place] [address] [place] Creatinine and Glomerular filtration rate.predicted panel (S/P/Bld) 62 mL/min/1.73m??? Normal >=60 [facility] Comment on above: Order Comment: Elvia escobar Type: BLOOD SPECIMENOrdering Facility: [facility] Address: [address] [place] [address] Result Comment: Berenice mated Glomerular Filtration Rate [...] Performed By: #### 1 9123-9, 2777-, 3083-09, ####[facility] LABIA [id number] [place] [id number] [place] Glucose [Mass/Vol] 106 mg/dL High 74-99 [facility] Comment on above: Order Comment: Elvia escobar Type: BLOOD SPECIMENOrdering Facility: [facility] Address: [address] [place] [address] Result Comment: [place] [...] Performed By: #### 1 9123-9, 277-, 3083-09, ####[facility] LABIA [id number] [place] [address] [place] Potassium [Moles/Vol] 3.3 mmol/L Low 3.7-5.1 [facility] Comment on above: Order Comment: Speci men Type: BLOOD SPECIMENOrdering Facility: [facility] Address: [address] [place] [address] Performed By: #### 1 9123-9, 27703-03, 3083-09, 66838-2 ####[facility] [id number] [place] [address] [place] Protein [Mass/Vol] 5.7 g/dL Low 6.3-8.0 [facility] Comment on above: Order Comment: Elvia escobar Type: BLOOD SPECIMENOrdering Facility: [facility] Address: [address] [place] [address] Performed By: #### 1 9123-9, 27703-03, 3083-09, 93607-4 ####[facility] [id number] [place] [address] [place] Sodium [Moles/Vol] 141 mmol/L Normal 136-144 [facility] Comment on above: Order Comment: Rochellei men Type: BLOOD SPECIMENOrdering Facility: [facility] Address: [address] [place] [address] Performed By: #### 1 9123-9, 277-1, 308-, 93402-5 ####[facility] LABCLIA [id number] [place] [address] [place] Urea nitrogen [Mass/Vol] 11 mg/dL Normal 7-21 [facility] Comment on above: Order Comment: Speci men Type: BLOOD SPECIMENOrdering Facility: [facility] Address: [address] [place] [address] Performed By: #### 1 9123-9, 2777-1, 308-, 18632-8 ####[facility] LABIA [id number] [place] [address] [place] ECG COMPLETEon 06-04-2023 ECG COMPLETE Normal [facility] Magnesium SerPl-mCncon 06-04 Magnesium [Mass/Vol] 2.0 mg/dL Normal 1.7-2.3 [facility] Comment on above: Order Comment: Speci men Type: BLOOD SPECIMENOrdering Facility: [facility] Address: [address] [place], [place] [address] Performed By: #### 1 9123-9, 2777-1, 308-, 66582-5 ####[facility] LABIA [id number] [place] [address] [place] Phosphate SerPl-mCncon 06-04 Phosphate [Mass/Vol] 2.7 mg/dL Normal 2.7-4.8 [facility] Comment on above: Order Comment: Speci men Type: BLOOD SPECIMENOrdering Facility: [facility] Address: [address] Performed By: #### 1 9123-9, 2777-1, 308-, 52962-3 ####[facility] LABCLIA [id number] [place] [id number] [place] SOCIAL WORKon 06-04-2023 SOCIAL WORK Normal [facility] Urate SerPl-mCncon Urate [Mass/Vol] 3.1 mg/dL Normal 2.5-6.6 [facility] Comment on above: Order Comment: Elvia escobar Type: BLOOD SPECIMENOrdering Facility: [facility] Address: [address] [place] [address] Performed By: #### 1 9123-9, 2777-1, 3084-1, 49779-1 ####[facility] LABCLIA [id number] [address] BLOOD BANK PLACEHOLDER, CHANDLER SFUSION REACTION PATHOLOGY REPORTon 06-03-2023 BLOOD BANK REPORT, TRANSFUSION REACTION PATHOLOGY REPORT See Pathology Report Normal [facility] Comment on above: Order Comment: Elvia escobar Type: BLOOD SPECIMENOrdering Facility: [facility] Address: [address] [place] [address] Performed By: #### T SCR, [id number], [id number] ####[facility] BLOOD BANKCLIA [id number] [address]#### [id number] ####[facility] LABCLIA [id number] [address] BLOOD BANK REPORT, TRANSFUSI ON REACTION PATHOLOGY REPORTon 06-03-2023 PATHOLOGY INTERPRETATION Normal [facility] Comment on above: Order Comment: Elvia escobar Type: BLOOD SPECIMENOrdering Facility: [facility] Address: [address] [place] [address] Result Comment: Date of symptom onset:June 05ertinent medical history:67-year-old female with past medical history of breast cancer status post lumpectomy and adjuvant radiation therapy and recent diagnosis of acute myeloid leukemia. Patient labs demonstrate pancytopenia and need for platelet transfusion.Transfusion Information:Date Component DIN Start time (h) End time (h) Amount transfused (mL)Monday, June 05, 2023 Platelet [id number] 0328 0440 300 mLSymptoms, signs, and onset:Itching [...] Physician. Performed By: #### T SCR, TRXNU, [id number] ####[facility] BLOOD BANKCLIA [id number] [place] [address] [place]#### [id number] ####[facility] LABCLIA [id number] [place] [address] [place] C diff Tox gens Stl Ql KIAH+p robeon 06-03-2023 C. difficile toxin genes KIAH+probe Ql (Stl) Negative Normal Negative for C. difficile toxin by PCR [facility] Comment on above: Order Comment: Speci men Type: STOOL SPECIMENOrdering Facility: [facility] Address: [address] [place] [address] Performed By: #### 5 4067-4 ####[facility] LABCLIA [id number] [place] [address] [place] CBC W Auto Differential pane l (Bld)on 06-03-2023 Anisocytosis Ql (Bld) Present Normal [facility] Comment on above: Order Comment: Speci men Type: BLOOD SPECIMENOrdering Facility: [facility] Address: [address] [place] [address] Performed By: #### 5 7021-8 ####[facility] LABCLIA [id number] [place] [address] [place] Basophils (Bld) [#/Vol] 0.00 10*3/uL Normal <0.11 [facility] Comment on above: Order Comment: Speci men Type: BLOOD SPECIMENOrdering Facility: [facility] Address: [address] [address] Performed By: #### 5 7021-8 ####[facility] LABCLIA [id number] [address] [place] Basophils/100 WBC (Bld) 0.0 % Normal [facility] Comment on above: Order Comment: Speci men Type: BLOOD SPECIMENOrdering Facility: [facility] Address: [address] [place], [place] [address] Performed By: #### 5 7021-8 ####[facility] LABCLIA [id number] [place] [address] [place] BLAST% 3.0 % High <=0.0 [facility] Comment on above: Order Comment: Speci men Type: BLOOD SPECIMENOrdering Facility: [facility] Address: [address] [place] [address] Performed By: #### 5 7021-8 ####[facility] LABCLIA [id number] [place] [address] [place] Differential cell count method Nom (Bld) Manual Normal [facility] Comment on above: Order Comment: Speci men Type: BLOOD SPECIMENOrdering Facility: [facility] Address: [address] Performed By: #### 5 7021-8 ####[facility] LABCLIA [id number] [place] [address] [place] Eosinophils (Bld) [#/Vol] 0.02 10*3/uL Normal <0.46 [facility] Comment on above: Order Comment: Speci men Type: BLOOD SPECIMENOrdering Facility: [facility] Address: [address] Performed By: #### 5 7021-8 ####[facility] LABCLIA [id number] [place] [address] [place] Eosinophils/100 WBC (Bld) 2.0 % Normal [facility] Comment on above: Order Comment: Speci men Type: BLOOD SPECIMENOrdering Facility: [facility] Address: [address] Performed By: #### 5 7021-8 ####[facility] LABIA [id number] [place] [address] [place] Erythrocyte distribution width (RBC) [Ratio] 19.9 % High 11.5-15.0 [facility] Comment on above: Order Comment: Speci men Type: BLOOD SPECIMENOrdering Facility: [facility] Address: [address] [place], [place] [address] Performed By: #### 5 7021-8 ####[facility] LABIA [id number] [place] [address] [place] Hematocrit (Bld) [Volume fraction] 19.0 % Low 36.0-46.0 [facility] Comment on above: Order Comment: Speci men Type: BLOOD SPECIMENOrdering Facility: [facility] Address: [address] Performed By: #### 5 7021-8 ####[facility] LABIA [id number] [place] [address] [place] Hemoglobin (Bld) [Mass/Vol] 6.5 g/dL Low 11.5-15.5 [facility] Comment on above: Order Comment: Speci men Type: BLOOD SPECIMENOrdering Facility: [facility] Address: [address] [place], [place] [address] Performed By: #### 5 7021-8 ####[facility] LABCLIA [id number] [place] [address] [place] Lymphocytes (Bld) [#/Vol] 0.90 10*3/uL Low 1.00-4.00 [facility] Comment on above: Order Comment: Speci men Type: BLOOD SPECIMENOrdering Facility: [facility] Address: [address] Performed By: #### 5 7021-8 ####[facility] LABIA [id number] [address] [place] Lymphocytes/100 WBC (Bld) 76.0 % Normal [facility] Comment on above: Order Comment: Speci men Type: BLOOD SPECIMENOrdering Facility: [facility] Address: [address] [place], [place] [address] Performed By: #### 5 7021-8 ####[facility] LABIA [id number] [place] [address] [place] MCH (RBC) [Entitic mass] 33.2 pg Normal 26.0-34.0 [facility] Comment on above: Order Comment: Speci men Type: BLOOD SPECIMENOrdering Facility: [facility] Address: [address] [place] [address] Performed By: #### 5 7021-8 ####[facility] LABCLIA [id number] [place] [address] [place] MCHC (RBC) [Mass/Vol] 34.2 g/dL Normal 30.5-36.0 [facility] Comment on above: Order Comment: Speci men Type: BLOOD SPECIMENOrdering Facility: [facility] Address: [address] [id number] Performed By: #### 5 7021-8 ####[facility] LABIA [id number] [place] [id number] [place] MCV (RBC) [Entitic vol] 96.9 fL Normal 80.0-100.0 [facility] Comment on above: Order Comment: Speci men Type: BLOOD SPECIMENOrdering Facility: [facility] Address: [address] [place] [address] Performed By: #### 5 7021-8 ####[facility] LABCLIA [id number] [place] [address] [place] Monocytes (Bld) [#/Vol] 0.02 10*3/uL Normal <0.87 [facility] Comment on above: Order Comment: Speci men Type: BLOOD SPECIMENOrdering Facility: [facility] Address: [address] [place] [address] Performed By: #### 5 7021-8 ####[facility] LABCLIA [id number] [address] [place] Monocytes/100 WBC (Bld) 2.0 % Normal [facility] Comment on above: Order Comment: Speci men Type: BLOOD SPECIMENOrdering Facility: [facility] Address: [address] [place], [place] [address] Performed By: #### 5 7021-8 ####[facility] LABCLIA [id number] [place] [address] [place] Neutrophils (Bld) [#/Vol] 0.20 10*3/uL Low 1.45-7.50 [facility] Comment on above: Order Comment: Speci men Type: BLOOD SPECIMENOrdering Facility: [facility] Address: [address] [place], [place] [address] Performed By: #### 5 7021-8 ####[facility] LABCLIA [id number] [place] [address] [place] Neutrophils/100 WBC (Bld) 17.0 % Normal [facility] Comment on above: Order Comment: Speci men Type: BLOOD SPECIMENOrdering Facility: [facility] Address: [address] Performed By: #### 5 7021-8 ####[facility] LABCLIA [id number] [address] Nucleated RBC (Bld) [#/Vol] 10*3/uL Normal <0.01 [facility] Comment on above: Order Comment: Speci men Type: BLOOD SPECIMENOrdering Facility: [facility] Address: [address] [place], [place] [address] Performed By: #### 5 7021-8 ####[facility] LABIA [id number] [place] [address] [place] Nucleated RBC/100 WBC (Bld) [Ratio] 0.0 /100 WBC Normal [facility] Comment on above: Order Comment: Speci men Type: BLOOD SPECIMENOrdering Facility: [facility] Address: [address] [place], [place] [address] Performed By: #### 5 7021-8 ####[facility] LABCLIA [id number] [place] [address] [place] Ovalocytes LM Ql (Bld) Few Normal [facility] Comment on above: Order Comment: Speci men Type: BLOOD SPECIMENOrdering Facility: [facility] Address: [address] [place], [place] [address] Performed By: #### 5 7021-8 ####[facility] LABCLIA [id number] [address] [place] Platelet mean volume (Bld) [Entitic vol] Normal [facility] Comment on above: Order Comment: Speci men Type: BLOOD SPECIMENOrdering Facility: [facility] Address: [address] [place], [place] [address] Result Comment: Unab le to Report. Performed By: #### 5 7021-8 ####[facility] LABCLIA [id number] [place] [address] [place] Platelets (Bld) [#/Vol] 14 10*3/uL Low 150-400 [facility] Comment on above: Order Comment: Speci men Type: BLOOD SPECIMENOrdering Facility: [facility] Address: [address] [place] [address] Result Comment: Resu lts checked and verified.No clot detected. Performed By: #### 5 7021-8 ####[facility] LABCLIA [id number] [place] [address] [place] Platelets Estimate (Bld) [#/Vol] Decreased Normal [facility] Comment on above: Order Comment: Speci men Type: BLOOD SPECIMENOrdering Facility: [facility] Address: [address] [place] [address] Performed By: #### 5 7021-8 ####[facility] LABIA [id number] [place] [address] [place] RBC (Bld) [#/Vol] 1.96 10*6/uL Low 3.90-5.20 [facility] Comment on above: Order Comment: Speci men Type: BLOOD SPECIMENOrdering Facility: [facility] Address: [address] [place] [address] Performed By: #### 5 7021-8 ####[facility] LABCLIA [id number] [place] [address] [place] RBC FRAGMENTS Few Abnormal None Seen [facility] Comment on above: Order Comment: Speci men Type: BLOOD SPECIMENOrdering Facility: [facility] Address: [address] [place] [address] Performed By: #### 5 7021-8 ####[facility] LABIA [id number] [place] [address] [place] RED CELL MORPH Reviewed: see result s of individual morphologies Normal [facility] Comment on above: Order Comment: Speci men Type: BLOOD SPECIMENOrdering Facility: [facility] Address: [address] [place] [address] Performed By: #### 5 7021-8 ####[facility] LABIA [id number] [place] [address] [place] [facility] [place] WBC (Bld) [#/Vol] 1.18 10*3/uL Low 3.70-11.00 [facility] Comment on above: Order Comment: Speci men Type: BLOOD SPECIMENOrdering Facility: [facility] Address: [address] [place] [address] Result Comment: No c lot detected. Performed By: #### 5 7021-8 ####[facility] LABIA [id number] [address] OF [facility] Comprehensive metabolic 2000 panelon 06-03-2023 Albumin [Mass/Vol] 3.3 g/dL Low 3.9-4.9 [facility] Comment on above: Order Comment: Speci men Type: BLOOD SPECIMENOrdering Facility: [facility] Address: [address] [place] [address] Performed By: #### 2 777-1, 3084-1, 78864-7, 84801-7 ####[facility] LABIA [id number] [address] [place] ALP [Catalytic activity/Vol] 50 U/L Normal 34-123 [facility] Comment on above: Order Comment: Speci men Type: BLOOD SPECIMENOrdering Facility: [facility] Address: [address] [place] [address] Performed By: #### 2 777-1, 3084-1, 54617-7, 07936-0 ####[facility] LABIA [id number] [address] [place] ALT [Catalytic activity/Vol] 12 U/L Normal 7-38 [facility] Comment on above: Order Comment: Speci men Type: BLOOD SPECIMENOrdering Facility: [facility] Address: [address] [place], [place] [address] Performed By: #### 2 777-1, 3084-1, 79465-3, ####[facility] LABCLIA [id number] [place] [address] [place] Anion gap [Moles/Vol] 12 mmol/L Normal 9-18 [facility] Comment on above: Order Comment: Speci men Type: BLOOD SPECIMENOrdering Facility: [facility] Address: [address] [place], [place] [address] Performed By: #### 2 777-1, 3084-1, 68413-7, ####[facility] LABCLIA [id number] [place] [address] [place] AST [Catalytic activity/Vol] 12 U/L Low 13-35 [facility] Comment on above: Order Comment: Speci men Type: BLOOD SPECIMENOrdering Facility: [facility] Address: [address] [place], [place] [address] Performed By: #### 2 777-1, 3084-1, 71276-6, ####[facility] LABCLIA [id number] [address] [address] [place] Bilirubin [Mass/Vol] 0.4 mg/dL Normal 0.2-1.3 [facility] Comment on above: Order Comment: Speci men Type: BLOOD SPECIMENOrdering Facility: [facility] Address: [address] [place], [place] [address] Performed By: #### 2 777-1, 3084-1, 59025-6, ####[facility] LABCLIA [id number] [address] [address] [place] Calcium [Mass/Vol] 9.0 mg/dL Normal 8.5-10.2 [facility] Comment on above: Order Comment: Speci men Type: BLOOD SPECIMENOrdering Facility: [facility] Address: [address] [place], [place] [address] Performed By: #### 2 777-1, 3084-1, 91938-2, ####[facility] LABCLIA [id number] [place] [address] [place] Chloride [Moles/Vol] 108 mmol/L High 97-105 [facility] Comment on above: Order Comment: Speci men Type: BLOOD SPECIMENOrdering Facility: [facility] Address: [address] [place] [address] Performed By: #### 2 777-1, 3084-1, 51115-5, ####[facility] LABCLIA [id number] [place] [address] [place] CO2 [Moles/Vol] 21 mmol/L Low 22-30 [facility] Comment on above: Order Comment: Speci men Type: BLOOD SPECIMENOrdering Facility: [facility] Address: [address] [place] [address] Performed By: #### 2 777-1, 3084-1, 26284-9, ####[facility] LABCLIA [id number] [place] [address] [place] Creatinine [Mass/Vol] 0.93 mg/dL Normal 0.58-0.96 [facility] Comment on above: Order Comment: Speci men Type: BLOOD SPECIMENOrdering Facility: [facility] Address: [address] [place] [address] Performed By: #### 2 777-1, 3084-1, 14364-9, ####[facility] LABCLIA [id number] [place] [address] [place] Creatinine and Glomerular filtration rate.predicted panel (S/P/Bld) 67 mL/min/1.73m??? Normal >=60 [facility] Comment on above: Order Comment: Elvia escobar Type: BLOOD SPECIMENOrdering Facility: [facility] Address: [address] [place], [place] [address] Result Comment: Berenice mated Glomerular Filtration Rate [...] GFR. Performed By: #### 2 777-1, 3084-1, 10401-5, 21455-2 ####[facility] LABIA [id number] [place] [address] [place] Glucose [Mass/Vol] 111 mg/dL High 74-99 [facility] Comment on above: Order Comment: Elvia escobar Type: BLOOD SPECIMENOrdering Facility: [facility] Address: [address] [place] [address] Result Comment: [place] [...] 1). Performed By: #### 2 777-1, 3084-1, 36802-2, ####[facility] LABCLIA [id number] [address] [address] [place] Potassium [Moles/Vol] 3.3 mmol/L Low 3.7-5.1 [facility] Comment on above: Order Comment: Speci men Type: BLOOD SPECIMENOrdering Facility: [facility] Address: [address] [place], [place] [address] Performed By: #### 2 777-1, 3084-1, 31644-6, ####[facility] LABCLIA [id number] [place] [address] [place] Protein [Mass/Vol] 5.3 g/dL Low 6.3-8.0 [facility] Comment on above: Order Comment: Speci men Type: BLOOD SPECIMENOrdering Facility: [facility] Address: [address] [place] [address] Performed By: #### 2 777-1, 3084-1, 63942-1, ####[facility] [id number] [place] [address] [place] Sodium [Moles/Vol] 141 mmol/L Normal 136-144 [facility] Comment on above: Order Comment: Speci men Type: BLOOD SPECIMENOrdering Facility: [facility] Address: [address] [place] [address] Performed By: #### 2 777-1, 3084-1, 36915-2, ####[facility] [id number] [place] [address] [place] Urea nitrogen [Mass/Vol] 9 mg/dL Normal 7-21 [facility] Comment on above: Order Comment: Speci men Type: BLOOD SPECIMENOrdering Facility: [facility] Address: [address] [place], [place] [address] Performed By: #### 2 777-1, 3084-1, 78663-7, 33437-5 ####[facility] LABIA [id number] [place] [id number] [place] Magnesium SerPl-mCncon 06-03 Magnesium [Mass/Vol] 1.9 mg/dL Normal 1.7-2.3 [facility] Comment on above: Order Comment: Speci men Type: BLOOD SPECIMENOrdering Facility: [facility] Address: [address] [place] [address] Performed By: #### 2 777-1, 3084-1, 83280-6, 27344-7 ####[facility] LABCLIA [id number] [address] [place] Phosphate SerPl-mCncon 06-03 Phosphate [Mass/Vol] 3.0 mg/dL Normal 2.7-4.8 [facility] Comment on above: Order Comment: Speci men Type: BLOOD SPECIMENOrdering Facility: [facility] Address: [address] [place] [address] Performed By: #### 2 777-1, 3084-1, 57519-5, 15718-7 ####[facility] LABCLIA [id number] [address] OF [facility] TYPE + SCREENon 06-03-2023 ABO O Normal [facility] Comment on above: Order Comment: Speci men Type: BLOOD SPECIMENOrdering Facility: [facility] Address: [address] [place] [address] Performed By: #### T SCR, TRXNU, [id number] ####[facility] BLOOD BANKCLIA [id number] [address] [place]#### [id number] ####[facility] LABCLIA [id number] [place] [address] [place] HISTORICAL AB SCR STATUS Negative Normal [facility] Comment on above: Order Comment: Speci men Type: BLOOD SPECIMENOrdering Facility: [facility] Address: [address] [place] [address] Performed By: #### T SCR, TRXNU, [id number] ####[facility] BLOOD BANKCLIA [id number] [address] [place]#### [id number] ####[facility] LABCLIA [id number] [place] [address] [place] Rh Nom (Bld) Positive Normal [facility] Comment on above: Order Comment: Speci men Type: BLOOD SPECIMENOrdering Facility: [facility] Address: [address] [address] Performed By: #### T SCR, TRXNU, [id number] ####[facility] BLOOD BANKCLIA [id number] [place] [address] [place]#### [id number] ####[facility] LABCLIA [id number] [place] [address] [place] TYPE AND SCREEN EXPIRATION 06/06/2023 23:59 Normal [facility] Comment on above: Order Comment: Speci men Type: BLOOD SPECIMENOrdering Facility: [facility] Address: [address] [place] [address] Performed By: #### T SCR, TRXNU, [id number] ####[facility] BLOOD BANKCLIA [id number] [place] [address] [place]#### [id number] ####[facility] LABCLIA [id number] [place] [address] [place] URTICARIAL REACTIONon 2022 OK TO TRANSFUSE Yes Normal [facility] Comment on above: Order Comment: Speci men Type: BLOOD SPECIMENOrdering Facility: [facility] Address: [address] [id number] Performed By: #### T SCR, TRXNU, [id number] ####[facility] BLOOD BANKCLIA [id number] [place] [address] [place]#### [id number] ####[facility] LABCLIA [id number] [address] [place] Urate SerPl-mCncon 3 Urate [Mass/Vol] 3.4 mg/dL Normal 2.5-6.6 [facility] Comment on above: Order Comment: Speci men Type: BLOOD SPECIMENOrdering Facility: [facility] Address: [address] [place] [address] Performed By: #### 2 777-1, 3084-1, 85148-0, 49847-5 ####[facility] LABCLIA [id number] [place] [address] [place] BMT REC INIT W/Uon 3 ALLOGEN RESULTS TO FOLLOW See Allogen report to follow Normal [facility] Comment on above: Order Comment: Speci men Type: BLOOD SPECIMENOrdering Facility: [facility] Address: [address] [place] [address] Performed By: #### B MTRIW ####[facility] [id number] [address] [place] CBC W Auto Differential pane l (Bld)on 06-02-2023 Anisocytosis Ql (Bld) Present Normal [facility] Comment on above: Order Comment: Speci men Type: BLOOD SPECIMENOrdering Facility: [facility] Address: [address] [place] [address] Performed By: #### 5 7021-8 ####[facility] LABCLIA [id number] [address] STATES OF [facility] Basophils (Bld) [#/Vol] 0.00 10*3/uL Normal <0.11 [facility] Comment on above: Order Comment: Speci men Type: BLOOD SPECIMENOrdering Facility: [facility] Address: [address] [place], [place] [address] Performed By: #### 5 7021-8 ####[facility] LABCLIA [id number] [place] [address] [place] Basophils/100 WBC (Bld) 0.0 % Normal [facility] Comment on above: Order Comment: Speci men Type: BLOOD SPECIMENOrdering Facility: [facility] Address: [address] [address] Performed By: #### 5 7021-8 ####[facility] LABCLIA [id number] [place] [address] [place] BLAST% 2.0 % High <=0.0 [facility] Comment on above: Order Comment: Speci men Type: BLOOD SPECIMENOrdering Facility: [facility] Address: [address] [place] [address] Performed By: #### 5 7021-8 ####[facility] LABCLIA [id number] [place] [address] [place] Differential cell count method Nom (Bld) Manual Normal [facility] Comment on above: Order Comment: Speci men Type: BLOOD SPECIMENOrdering Facility: [facility] Address: [address] [place], [place] [id number] Performed By: #### 5 7021-8 ####[facility] LABCLIA [id number] [place] [address] [place] Eosinophils (Bld) [#/Vol] 0.02 10*3/uL Normal <0.46 [facility] Comment on above: Order Comment: Speci men Type: BLOOD SPECIMENOrdering Facility: [facility] Address: [address] Performed By: #### 5 7021-8 ####[facility] LABCLIA [id number] [place] [address] [place] Eosinophils/100 WBC (Bld) 1.0 % Normal [facility] Comment on above: Order Comment: Speci men Type: BLOOD SPECIMENOrdering Facility: [facility] Address: [address] [place], [place] [address] Performed By: #### 5 7021-8 ####[facility] LABIA [id number] [place] [address] [place] Erythrocyte distribution width (RBC) [Ratio] 20.5 % High 11.5-15.0 [facility] Comment on above: Order Comment: Speci men Type: BLOOD SPECIMENOrdering Facility: [facility] Address: [address] [place], [place] [address] Performed By: #### 5 7021-8 ####[facility] LABIA [id number] [place] [address] [place] Hematocrit (Bld) [Volume fraction] 20.6 % Low 36.0-46.0 [facility] Comment on above: Order Comment: Speci men Type: BLOOD SPECIMENOrdering Facility: [facility] Address: [address] [place], [place] [address] Performed By: #### 5 7021-8 ####[facility] LABIA [id number] [place] [address] [place] Hemoglobin (Bld) [Mass/Vol] 7.0 g/dL Low 11.5-15.5 [facility] Comment on above: Order Comment: Speci men Type: BLOOD SPECIMENOrdering Facility: [facility] Address: [address] [place], [place] [address] Performed By: #### 5 7021-8 ####[facility] LABIA [id number] [place] [address] [place] Lymphocytes (Bld) [#/Vol] 1.46 10*3/uL Normal 1.00-4.00 [facility] Comment on above: Order Comment: Speci men Type: BLOOD SPECIMENOrdering Facility: [facility] Address: [address] [place] [address] Performed By: #### 5 7021-8 ####[facility] LABIA [id number] [place] [address] [place] Lymphocytes/100 WBC (Bld) 87.0 % Normal [facility] Comment on above: Order Comment: Speci men Type: BLOOD SPECIMENOrdering Facility: [facility] Address: [address] [place], [place] [address] Performed By: #### 5 7021-8 ####[facility] LABCLIA [id number] [address] [place] [facility] MCH (RBC) [Entitic mass] 33.0 pg Normal 26.0-34.0 [facility] Comment on above: Order Comment: Speci men Type: BLOOD SPECIMENOrdering Facility: [facility] Address: [address] [place], [place] [address] Performed By: #### 5 7021-8 ####[facility] LABCLIA [id number] [address] [place] MCHC (RBC) [Mass/Vol] 34.0 g/dL Normal 30.5-36.0 [facility] Comment on above: Order Comment: Speci men Type: BLOOD SPECIMENOrdering Facility: [facility] Address: [address] [place], [place] [address] Performed By: #### 5 7021-8 ####[facility] LABCLIA [id number] [address] [place] MCV (RBC) [Entitic vol] 97.2 fL Normal 80.0-100.0 [facility] Comment on above: Order Comment: Speci men Type: BLOOD SPECIMENOrdering Facility: [facility] Address: [address] [place], [place] [address] Performed By: #### 5 7021-8 ####[facility] LABCLIA [id number] [place] [address] [place] Monocytes (Bld) [#/Vol] 0.00 10*3/uL Normal <0.87 [facility] Comment on above: Order Comment: Speci men Type: BLOOD SPECIMENOrdering Facility: [facility] Address: [address] Performed By: #### 5 7021-8 ####[facility] LABCLIA [id number] [address] STATES OF [facility] Monocytes/100 WBC (Bld) 0.0 % Normal [facility] Comment on above: Order Comment: Speci men Type: BLOOD SPECIMENOrdering Facility: [facility] Address: [address] Performed By: #### 5 7021-8 ####[facility] LABCLIA [id number] [place] [address] [place] Neutrophils (Bld) [#/Vol] 0.17 10*3/uL Low 1.45-7.50 [facility] Comment on above: Order Comment: Speci men Type: BLOOD SPECIMENOrdering Facility: [facility] Address: [address] [place], [place] [address] Performed By: #### 5 7021-8 ####[facility] LABCLIA [id number] [address] [place] Neutrophils/100 WBC (Bld) 10.0 % Normal [facility] Comment on above: Order Comment: Speci men Type: BLOOD SPECIMENOrdering Facility: [facility] Address: [address] [place], [place] [address] Performed By: #### 5 7021-8 ####[facility] LABCLIA [id number] [place] [address] [place] Nucleated RBC (Bld) [#/Vol] 10*3/uL Normal <0.01 [facility] Comment on above: Order Comment: Speci men Type: BLOOD SPECIMENOrdering Facility: [facility] Address: [address] [place], [place] [address] Performed By: #### 5 7021-8 ####[facility] LABCLIA [id number] [address] [place] Nucleated RBC/100 WBC (Bld) [Ratio] 0.0 /100 WBC Normal [facility] Comment on above: Order Comment: Speci men Type: BLOOD SPECIMENOrdering Facility: [facility] Address: [address] [place] [address] Performed By: #### 5 7021-8 ####[facility] LABCLIA [id number] [place] [address] [place] Ovalocytes LM Ql (Bld) Few Normal [facility] Comment on above: Order Comment: Speci men Type: BLOOD SPECIMENOrdering Facility: [facility] Address: [address] [place] [address] Performed By: #### 5 7021-8 ####[facility] LABCLIA [id number] [place] [address] [place] Platelet mean volume (Bld) [Entitic vol] Normal [facility] Comment on above: Order Comment: Speci men Type: BLOOD SPECIMENOrdering Facility: [facility] Address: [address] [place] [address] Result Comment: Unab le to Report. Performed By: #### 5 7021-8 ####[facility] LABCLIA [id number] [place] [address] [place] Platelets (Bld) [#/Vol] 26 10*3/uL Low 150-400 [facility] Comment on above: Order Comment: Speci men Type: BLOOD SPECIMENOrdering Facility: [facility] Address: [address] [place] [address] Result Comment: Resu lts checked and verified.No clot detected. Performed By: #### 5 7021-8 ####[facility] LABCLIA [id number] [place] [address] [place] Platelets Estimate (Bld) [#/Vol] Decreased Normal [facility] Comment on above: Order Comment: Speci men Type: BLOOD SPECIMENOrdering Facility: [facility] Address: [address] [place] [address] Performed By: #### 5 7021-8 ####[facility] LABCLIA [id number] [place] [address] [place] Polychromasia LM Ql (Bld) Slight Normal [facility] Comment on above: Order Comment: Speci men Type: BLOOD SPECIMENOrdering Facility: [facility] Address: [address] Performed By: #### 5 7021-8 ####[facility] LABIA [id number] [place] [address] [place] RBC (Bld) [#/Vol] 2.12 10*6/uL Low 3.90-5.20 [facility] Comment on above: Order Comment: Speci men Type: BLOOD SPECIMENOrdering Facility: [facility] Address: [address] [place] [address] Performed By: #### 5 7021-8 ####[facility] LABIA [id number] [place] [address] [place] RBC FRAGMENTS Few Abnormal None Seen [facility] Comment on above: Order Comment: Speci men Type: BLOOD SPECIMENOrdering Facility: [facility] Address: [address] [place] [address] Performed By: #### 5 7021-8 ####[facility] LABCLIA [id number] [place] [address] [place] RED CELL MORPH Reviewed: see result s of individual morphologies Normal [facility] Comment on above: Order Comment: Speci men Type: BLOOD SPECIMENOrdering Facility: [facility] Address: [address] [place] [address] Performed By: #### 5 7021-8 ####[facility] LABCLIA [id number] [place] [address] [place] WBC (Bld) [#/Vol] 1.68 10*3/uL Low 3.70-11.00 [facility] Comment on above: Order Comment: Speci men Type: BLOOD SPECIMENOrdering Facility: [facility] Address: [address] [place] [address] Result Comment: No c lot detected. Performed By: #### 5 7021-8 ####[facility] LABCLIA [id number] [place] [address] [place] CMV IgG Qnon 06-02-2023 CMV IGG QUAL Negative Normal Negative [facility] Comment on above: Order Comment: Speci men Type: BLOOD SPECIMENOrdering Facility: [facility] Address: [address] [place] [address] Result Comment: No s erological evidence of past exposure to Cytomegalovirus. Cannot exclude recent infection if the specimen collected within 4-6 weeks after infection. Performed By: #### 7 852-7 ####[facility] LABCLIA [id number] [place] [address] [place] CMV IgG SerPl-aCncon 023 CMV IgG Qn <0.20 Normal [facility] Comment on above: Order Comment: Speci men Type: BLOOD SPECIMENOrdering Facility: [facility] Address: [address] [place] [address] Result Comment: The magnitude of the measured result is not indicative of the amount of antibody present.U/mL values are interpreted as follows:Negative <0.6Equivocal 0.6 to <0.70Positive >=0.70 Performed By: #### 7 852-7 ####[facility] LABCLIA [id number] [place] [address] [place] Comprehensive metabolic 2000 panelon 06-02-2023 Albumin [Mass/Vol] 3.4 g/dL Low 3.9-4.9 [facility] Comment on above: Order Comment: Speci men Type: BLOOD SPECIMENOrdering Facility: [facility] Address: [address] [place] [address] Performed By: #### 2 4323-8, 43898-2, 2776-09, 308-1 ####[facility] LABCLIA [id number] [place] [address] [place] ALP [Catalytic activity/Vol] 58 U/L Normal 34-123 [facility] Comment on above: Order Comment: Speci men Type: BLOOD SPECIMENOrdering Facility: [facility] Address: [address] [place] [address] Performed By: #### 2 4323-8, 12899-6, 2776-, 308- ####[facility] LABCLIA [id number] [place] [address] [place] ALT [Catalytic activity/Vol] 15 U/L Normal 7-38 [facility] Comment on above: Order Comment: Speci men Type: BLOOD SPECIMENOrdering Facility: [facility] Address: [address] [place] [address] Performed By: #### 2 4323-8, 77565-4, 2776-09, 308- ####[facility] LABIA [id number] [place] [address] [place] Anion gap [Moles/Vol] 11 mmol/L Normal 9-18 [facility] Comment on above: Order Comment: Speci men Type: BLOOD SPECIMENOrdering Facility: [facility] Address: [address] [place] [address] Performed By: #### 2 4323-8, 08783-1, 2776-09, 308- ####[facility] LABIA [id number] [place] [address] [place] AST [Catalytic activity/Vol] 15 U/L Normal 13-35 [facility] Comment on above: Order Comment: Speci men Type: BLOOD SPECIMENOrdering Facility: [facility] Address: [address] [place], [place] [address] Performed By: #### 2 4323-8, 65196-3, 2776-, 308-1 ####[facility] LABIA [id number] [place] [address] [place] Bilirubin [Mass/Vol] 0.3 mg/dL Normal 0.2-1.3 [facility] Comment on above: Order Comment: Speci men Type: BLOOD SPECIMENOrdering Facility: [facility] Address: [address] [place], [place] [address] Performed By: #### 2 4323-8, 83803-5, 2776-, 3083- ####[facility] LABIA [id number] [place] [address] [place] Calcium [Mass/Vol] 8.2 mg/dL Low 8.5-10.2 [facility] Comment on above: Order Comment: Speci men Type: BLOOD SPECIMENOrdering Facility: [facility] Address: [address] [place] [address] Performed By: #### 2 4323-8, 07414-9, 2776-09, 3083- ####[facility] LABIA [id number] [place] [address] [place] Chloride [Moles/Vol] 107 mmol/L High 97-105 [facility] Comment on above: Order Comment: Speci men Type: BLOOD SPECIMENOrdering Facility: [facility] Address: [address] [place], [place] [address] Performed By: #### 2 4323-8, 13906-6, 2776-09, 308- ####[facility] LABIA [id number] [place] [address] [place] CO2 [Moles/Vol] 22 mmol/L Normal 22-30 [facility] Comment on above: Order Comment: Speci men Type: BLOOD SPECIMENOrdering Facility: [facility] Address: [address] [place] [address] Performed By: #### 2 4323-8, 87364-5, 2776-, 3083- ####[facility] LABIA [id number] [place] [address] [place] Creatinine [Mass/Vol] 0.96 mg/dL Normal 0.58-0.96 [facility] Comment on above: Order Comment: Speci men Type: BLOOD SPECIMENOrdering Facility: [facility] Address: [address] Performed By: #### 2 4323-8, 84502-3, 2776-09, 3083- ####[facility] [id number] [address] [place] Creatinine and Glomerular filtration rate.predicted panel (S/P/Bld) 64 mL/min/1.73m??? Normal >=60 [facility] Comment on above: Order Comment: Speci men Type: BLOOD SPECIMENOrdering Facility: [facility] Address: [address] [place] [address] Result Comment: Berenice mated Glomerular Filtration Rate [...] actual GFR. Performed By: #### 2 4323-8, 38838-3, 2776-09, 3083- ####[facility] LABIA [id number] [place] [address] [place] Glucose [Mass/Vol] 105 mg/dL High 74-99 [facility] Comment on above: Order Comment: Speci men Type: BLOOD SPECIMENOrdering Facility: [facility] Address: [address] [place] [address] Result Comment: [place] [...] 2016.39(Suppl 1). Performed By: #### 2 4323-8, 76073-0, 2776-09, 3083- ####[facility] LABCLIA [id number] [place] [address] [place] Potassium [Moles/Vol] 3.3 mmol/L Low 3.7-5.1 [facility] Comment on above: Order Comment: Speci men Type: BLOOD SPECIMENOrdering Facility: [facility] Address: [address] [place] [address] Performed By: #### 2 4323-8, 92179-4, 2776-09, 3083-09 ####[facility] LABIA [id number] [place] [address] [place] Protein [Mass/Vol] 5.4 g/dL Low 6.3-8.0 [facility] Comment on above: Order Comment: Speci men Type: BLOOD SPECIMENOrdering Facility: [facility] Address: [address] [place] [address] Performed By: #### 2 4323-8, 48783-5, 2776-09, 3083-09 ####[facility] LABCLIA [id number] [address] [address] [place] Sodium [Moles/Vol] 140 mmol/L Normal 136-144 [facility] Comment on above: Order Comment: Speci men Type: BLOOD SPECIMENOrdering Facility: [facility] Address: [address] [place] [address] Performed By: #### 2 3-8, , 2776-09, 3083- ####[facility] LABCLIA [id number] [place] [address] [place] Urea nitrogen [Mass/Vol] 13 mg/dL Normal 7-21 [facility] Comment on above: Order Comment: Speci men Type: BLOOD SPECIMENOrdering Facility: [facility] Address: [address] [place] [address] Performed By: #### 2 4322-8, , 2776-09, 308- ####[facility] LABCLIA [id number] [place] [address] [place] Magnesium SerPl-mCncon 06-02 Magnesium [Mass/Vol] 2.0 mg/dL Normal 1.7-2.3 [facility] Comment on above: Order Comment: Speci men Type: BLOOD SPECIMENOrdering Facility: [facility] Address: [address] [place] [address] Performed By: #### 2 4322-8, , 2776-09, 308- ####[facility] LABCLIA [id number] [place] [address] [place] Phosphate SerPl-mCncon 06-02 Phosphate [Mass/Vol] 3.8 mg/dL Normal 2.7-4.8 [facility] Comment on above: Order Comment: Speci men Type: BLOOD SPECIMENOrdering Facility: [facility] Address: [address] [place], [place] [address] Performed By: #### 2 4323-8, 86158-0, 2776-09, 308-1 ####[facility] LABCLIA [id number] [place] [address] [place] Urate SerPl-mCncon 3 Urate [Mass/Vol] 3.1 mg/dL Normal 2.5-6.6 [facility] Comment on above: Order Comment: Elvia escobar Type: BLOOD SPECIMENOrdering Facility: [facility] Address: [address] [place] [address] Performed By: #### 2 4323-8, 38759-0, 2777-1, 3084-1 ####[facility] LABCLIA [id number] [place] [address] [place] ACUTE LEUKEMIA NGS PANEL, ZEENAT NE MARROWon 06-01-2023 ACUTE LEUK NGS PANEL, BONE MARROW Normal [facility] Comment on above: Order Comment: Elvia escobar Type: BONE MARROW SPECIMENOrdering Facility: [facility] Address: [address] [place] [address] Result Comment: Acut e Leukemia NGS Panel, Bone MarrowLaboratory Accession Number: [id number]:Please see linked document and/or separate report for full result whenavailable.As reviewed by Zenia Mae, PhD, HCLD Performed By: #### H DMNGS, F3IM ####[facility] LIMSCLIA [id number] [address] [place] AML MRD BY FCon 06-01-2023 AML MRD BY FC View results in Scan talia Documents link when available. Normal [facility] Comment on above: Order Comment: Elvia escobar Type: BONE MARROW SPECIMENOrdering Facility: [facility] Address: [address] [place] [address] Performed By: #### A MLMRD ####[facility] MOLECULAR MICROCLIA [id number] [place] [address] BONE MARROW ANALYSISon 06-01 ADDENDUM 1: Normal [facility] Comment on above: Order Comment: Elvia escobar Type: BONE MARROW SPECIMENOrdering Facility: [facility] Address: [address] [place] [address] Result Comment: Markus tional immunohistochemistry is performed [...] 3:24 PM Performed By: #### B MRT ####[facility] [id number] [address] [place] CASE REPORT Normal [facility] Comment on above: Order Comment: Speci men Type: BONE MARROW SPECIMENOrdering Facility: [facility] Address: [address] [place] [address] Result Comment: Bone Marrow Pathology Report Case: [id number] Provider: Smith Hdez MD Collected: 06/01/2023 09:00 AMOrdering Location: [place] [address] Received: 06/01/2023 09:20 AMPathologist: Janet Saba, DOSpecimens: A) - BONE MARROW ASPIRATE RIGHT POSTERIOR ILIAC CREST B) - BONE MARROW BIOPSY RIGHT POSTERIOR ILIAC CREST C) - BONE MARROW CLOT RIGHT POSTERIOR ILIAC CREST D) - Peripheral blood smear Performed By: #### B MRT ####[facility] LABIA [id number] [address] [place] DIAGNOSIS COMMENT Normal [facility] Comment on above: Order Comment: Speci men Type: BONE MARROW SPECIMENOrdering Facility: [facility] Address: [address] [place] [address] Result Comment: The patient is 67 years old female with past medical history of breast cancer status post treatment and recent diagnosis of acute myeloid leukemia with complex cytogenetics. 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) in a manner consistent with CLIA requirements. One or more of these tests have not been cleared or approved by the FDA. [facility] is regulated under CLIA as qualified to perform high-complexity testing. These tests are used for clinical purposes. They should not be regarded as investigational or for research. Positive and negative controls stain appropriately. Performed By: #### B MRT ####[facility] LABCLIA [id number] [facility] [id number] [place] [address] [place] FINAL DIAGNOSIS Normal [facility] Comment on above: Order Comment: Speci men Type: BONE MARROW SPECIMENOrdering Facility: [facility] Address: [address] [place] [address] Result Comment: A-C: Bone marrow, aspirate smears, touch imprint, clot section and biopsy:- Acute myeloid leukemia.- Hypercellular marrow (50-60%) with trilineage hematopoiesis, granulocytic left shift, 28% blasts and multilineage dysplasia.- Few B-cell rich lymphoid aggregates.- See comment.D: Peripheral blood smear:- Pancytopenia with circulating blasts.HJR/AMENA 06/05/2023 Performed By: #### B MRT ####[facility] LABCLIA [id number] [address] OF [facility] FINAL PERFORMING LAB Normal [facility] Comment on above: Order Comment: Speci men Type: BONE MARROW SPECIMENOrdering Facility: [facility] Address: [address] [place] [address] Result Comment: Diag nostic interpretation performed at [facility], [address] [address] CLIA# [id number] Director: Boris Wood M.D. Performed By: #### B MRT ####[facility] LABCLIA [id number] [address] Order Comment: Speci men Type: BONE MARROW SPECIMENOrdering Facility: [facility] Address: [address] [place] [address] Performed By: #### F CLLP, FCLLRFLX ####[facility] LABCLIA [id number] [address] GROSS DESCRIPTION Normal [facility] Comment on above: Order Comment: Speci men Type: BONE MARROW SPECIMENOrdering Facility: [facility] Address: [address] [place] [address] Result Comment: A. B ONE MARROW ASPIRATE [...] Submitted for light microscopy.Gross examination performed at [facility], [address], [place] [id number] June 01, 2023 7:34 PM Performed By: #### B MRT ####[facility] LABCLIA [id number] [facility] INCDESK [id number] [place] MICROSCOPIC DESCRIPTION Normal [facility] Comment on above: Order Comment: Speci men Type: BONE MARROW SPECIMENOrdering Facility: [facility] Address: [address] [place] [address] Result Comment: GENNY PHERAL BLOOD:CBC (06/01/2023 12:35 [...] in number.Immunohistochemical stains were performed at the [facility] with appropriate controls for further characterization of [...] coat stored. Performed By: #### B MRT ####[facility] LABMATTHEW [id number] [place] [address] [place] BONE MARROW CHROMOSOME ANALo n 06-01-2023 CHROMOSOME BM Normal [facility] Comment on above: Order Comment: Order ing Facility: [facility] Address: [address] [place] [address] Result Comment: Edel knight Accession Number: [id number]: Hortencia Hdezathologist: Beatrice Pathology No: [id number] diagnosis: AMLSpecimen Type: Bone MarrowReceived Date: 06/01/2023Number of cells counted: 20Number of cells analyzed: 20Number of cells karyotyped: 20Banding resolution: 400Banding method: G-bandingDIAGNOSIS: 44,XX,-5,add(7)(q32),-12,-16,+mar[4]/44,idem,nehemiah(1)add(1)(q22)inv(1) (p13q21),add(2)(q37),add(3)(q21),add(4)(q12),nehemiah(6)add(6)(p11.2)del( 6)(q23q25),-add(7)(q32),add(7)(q11.2),-9,nehemiha(11)t(1;11)(q21;q23),+ma r[16]INTERPRETATION: Abnormal, female karyotypeCOMMENT: Ten metaphase cells [...] reviewed by Jovanny Hooper, PhD, FACMGPerformed by [facility] HealthPathology and Laboratory Medicine InstituteDivision of Molecular PathologyCytogenetics Lab, [facility]-[id number] [address]. [place], [place] [address]Phone: Toll free: Performed By: #### C [facility] ####CLARITY ILLUMINA LIMSCLIA [id number] [place] [address] [place] CBC W Auto Differential pane l (Bld)on 06-01-2023 Anisocytosis Ql (Bld) Present Normal [facility] Comment on above: Order Comment: Speci men Type: BLOOD SPECIMENOrdering Facility: [facility] Address: [address] [place] [address] Performed By: #### 5 7021-8 ####[facility] LABCLIA [id number] [place] [address] [place] Basophils (Bld) [#/Vol] 0.00 10*3/uL Normal <0.11 [facility] Comment on above: Order Comment: Speci men Type: BLOOD SPECIMENOrdering Facility: [facility] Address: [address] [place] [address] Performed By: #### 5 7021-8 ####[facility] LABCLIA [id number] [address] [place] Basophils/100 WBC (Bld) 0.0 % Normal [facility] Comment on above: Order Comment: Speci men Type: BLOOD SPECIMENOrdering Facility: [facility] Address: [address] [place] [address] Performed By: #### 5 7021-8 ####[facility] LABCLIA [id number] [address] [place] BLAST% 7.1 % High <=0.0 [facility] Comment on above: Order Comment: Speci men Type: BLOOD SPECIMENOrdering Facility: [facility] Address: [address] Performed By: #### 5 7021-8 ####[facility] LABCLIA [id number] [place] [address] [place] Differential cell count method Nom (Bld) Manual Normal [facility] Comment on above: Order Comment: Speci men Type: BLOOD SPECIMENOrdering Facility: [facility] Address: [address] [place], [place] [address] Performed By: #### 5 7021-8 ####[facility] LABCLIA [id number] [place] [address] [place] Eosinophils (Bld) [#/Vol] 0.03 10*3/uL Normal <0.46 [facility] Comment on above: Order Comment: Speci men Type: BLOOD SPECIMENOrdering Facility: [facility] Address: [address] [place], [place] [address] Performed By: #### 5 7021-8 ####[facility] LABIA [id number] [place] [address] [place] Eosinophils/100 WBC (Bld) 1.8 % Normal [facility] Comment on above: Order Comment: Speci men Type: BLOOD SPECIMENOrdering Facility: [facility] Address: [address] [place], [place] [address] Performed By: #### 5 7021-8 ####[facility] LABIA [id number] [place] [address] [place] Erythrocyte distribution width (RBC) [Ratio] 18.3 % High 11.5-15.0 [facility] Comment on above: Order Comment: Speci men Type: BLOOD SPECIMENOrdering Facility: [facility] Address: [address] [place], [place] [address] Performed By: #### 5 7021-8 ####[facility] LABCLIA [id number] [place] [address] [place] Hematocrit (Bld) [Volume fraction] 19.2 % Low 36.0-46.0 [facility] Comment on above: Order Comment: Speci men Type: BLOOD SPECIMENOrdering Facility: [facility] Address: [address] [place] [address] Performed By: #### 5 7021-8 ####[facility] LABCLIA [id number] [place] [address] [place] Hemoglobin (Bld) [Mass/Vol] 6.6 g/dL Low 11.5-15.5 [facility] Comment on above: Order Comment: Speci men Type: BLOOD SPECIMENOrdering Facility: [facility] Address: [address] [place] [address] Performed By: #### 5 7021-8 ####[facility] LABCLIA [id number] [place] [address] [place] HYPOGRANULATED PMNS Present Normal [facility] Comment on above: Order Comment: Speci men Type: BLOOD SPECIMENOrdering Facility: [facility] Address: [address] [place], [place] [address] Performed By: #### 5 7021-8 ####[facility] LABCLIA [id number] [place] [address] [place] Lymphocytes (Bld) [#/Vol] 1.33 10*3/uL Normal 1.00-4.00 [facility] Comment on above: Order Comment: Speci men Type: BLOOD SPECIMENOrdering Facility: [facility] Address: [address] [place], [place] [address] Performed By: #### 5 7021-8 ####[facility] LABCLIA [id number] [address] [place] Lymphocytes/100 WBC (Bld) 76.8 % Normal [facility] Comment on above: Order Comment: Speci men Type: BLOOD SPECIMENOrdering Facility: [facility] Address: [address] [place] [address] Performed By: #### 5 7021-8 ####[facility] [id number] [address] MCH (RBC) [Entitic mass] 34.7 pg High 26.0-34.0 [facility] Comment on above: Order Comment: Speci men Type: BLOOD SPECIMENOrdering Facility: [facility] Address: [address] Performed By: #### 5 7021-8 ####[facility] [id number] [address] [place] MCHC (RBC) [Mass/Vol] 34.4 g/dL Normal 30.5-36.0 [facility] Comment on above: Order Comment: Speci men Type: BLOOD SPECIMENOrdering Facility: [facility] Address: [address] Performed By: #### 5 7021-8 ####[facility] [id number] [address] [place] MCV (RBC) [Entitic vol] 101.1 fL High 80.0-100.0 [facility] Comment on above: Order Comment: Speci men Type: BLOOD SPECIMENOrdering Facility: [facility] Address: [address] Performed By: #### 5 7021-8 ####[facility] [id number] [place] [address] [place] Monocytes (Bld) [#/Vol] 0.00 10*3/uL Normal <0.87 [facility] Comment on above: Order Comment: Speci men Type: BLOOD SPECIMENOrdering Facility: [facility] Address: [address] Performed By: #### 5 7021-8 ####[facility] [id number] [place] [address] [place] Monocytes/100 WBC (Bld) 0.0 % Normal [facility] Comment on above: Order Comment: Speci men Type: BLOOD SPECIMENOrdering Facility: [facility] Address: [address] [place] [address] Performed By: #### 5 7021-8 ####[facility] LABCLIA [id number] [place] [address] [place] MYELO% 0.9 % Normal [facility] Comment on above: Order Comment: Speci men Type: BLOOD SPECIMENOrdering Facility: [facility] Address: [address] [place] [address] Performed By: #### 5 7021-8 ####[facility] LABCLIA [id number] [place] [address] [place] Neutrophils (Bld) [#/Vol] 0.23 10*3/uL Low 1.45-7.50 [facility] Comment on above: Order Comment: Speci men Type: BLOOD SPECIMENOrdering Facility: [facility] Address: [address] [place], [place] [address] Performed By: #### 5 7021-8 ####[facility] LABCLIA [id number] [place] [address] [place] Neutrophils/100 WBC (Bld) 13.4 % Normal [facility] Comment on above: Order Comment: Speci men Type: BLOOD SPECIMENOrdering Facility: [facility] Address: [address] [place], [place] [address] Performed By: #### 5 7021-8 ####[facility] LABCLIA [id number] [place] [address] [place] Nucleated RBC (Bld) [#/Vol] 10*3/uL Normal <0.01 [facility] Comment on above: Order Comment: Speci men Type: BLOOD SPECIMENOrdering Facility: [facility] Address: [address] [place] [address] Performed By: #### 5 7021-8 ####[facility] LABCLIA [id number] [place] [address] [place] Nucleated RBC/100 WBC (Bld) [Ratio] 0.0 /100 WBC Normal [facility] Comment on above: Order Comment: Speci men Type: BLOOD SPECIMENOrdering Facility: [facility] Address: [address] [place] [address] Performed By: #### 5 7021-8 ####[facility] LABIA [id number] [place] [address] [place] Ovalocytes LM Ql (Bld) Few Normal [facility] Comment on above: Order Comment: Speci men Type: BLOOD SPECIMENOrdering Facility: [facility] Address: [address] [place] [address] Performed By: #### 5 7021-8 ####[facility] LABIA [id number] [place] [address] [place] Platelet mean volume (Bld) [Entitic vol] Normal [facility] Comment on above: Order Comment: Speci men Type: BLOOD SPECIMENOrdering Facility: [facility] Address: [address] [place] [address] Result Comment: Unab le to Report. Performed By: #### 5 7021-8 ####[facility] LABIA [id number] [place] [address] [place] Platelets (Bld) [#/Vol] 10 10*3/uL Low 150-400 [facility] Comment on above: Order Comment: Speci men Type: BLOOD SPECIMENOrdering Facility: [facility] Address: [address] [place] [address] Result Comment: Resu lts checked and verified.No clot detected. Performed By: #### 5 7021-8 ####[facility] LABCLIA [id number] [place] [address] [place] Platelets Estimate (Bld) [#/Vol] Decreased Normal [facility] Comment on above: Order Comment: Speci men Type: BLOOD SPECIMENOrdering Facility: [facility] Address: [address] [place] [address] Performed By: #### 5 7021-8 ####[facility] LABCLIA [id number] [place] [address] [place] Polychromasia LM Ql (Bld) Slight Normal [facility] Comment on above: Order Comment: Speci men Type: BLOOD SPECIMENOrdering Facility: [facility] Address: [address] [place], [place] [address] Performed By: #### 5 7021-8 ####[facility] LABCLIA [id number] [place] [address] [place] RBC (Bld) [#/Vol] 1.90 10*6/uL Low 3.90-5.20 [facility] Comment on above: Order Comment: Speci men Type: BLOOD SPECIMENOrdering Facility: [facility] Address: [address] [place] [address] Performed By: #### 5 7021-8 ####[facility] LABCLIA [id number] [address] [place] RBC FRAGMENTS Few Abnormal None Seen [facility] Comment on above: Order Comment: Speci men Type: BLOOD SPECIMENOrdering Facility: [facility] Address: [address] [place] [address] Performed By: #### 5 7021-8 ####[facility] LABCLIA [id number] [address] [place] RED CELL MORPH Reviewed: see result s of individual morphologies Normal [facility] Comment on above: Order Comment: Speci men Type: BLOOD SPECIMENOrdering Facility: [facility] Address: [address] [place], [place] [address] Performed By: #### 5 7021-8 ####[facility] LABCLIA [id number] [place] [address] [place] WBC (Bld) [#/Vol] 1.73 10*3/uL Low 3.70-11.00 [facility] Comment on above: Order Comment: Speci men Type: BLOOD SPECIMENOrdering Facility: [facility] Address: [address] Performed By: #### 5 7021-8 ####[facility] LABIA [id number] [place] [address] [place] WBC Left Shift Ql (Bld) Present Normal [facility] Comment on above: Order Comment: Speci men Type: BLOOD SPECIMENOrdering Facility: [facility] Address: [address] [place], [place] [address] Performed By: #### 5 7021-8 ####[facility] LABIA [id number] [place] [address] [place] CONSULT PROGon 06-01-2023 CONSULT PROG Normal [facility] CT BIOPSY BONE MARROW (HEMO) on 06-01-2023 CT BIOPSY BONE MARROW (HEMO) Normal [facility] Comprehensive metabolic 2000 panelon 06-01-2023 Albumin [Mass/Vol] 3.4 g/dL Low 3.9-4.9 [facility] Comment on above: Order Comment: Speci men Type: BLOOD SPECIMENOrdering Facility: [facility] Address: [address] Performed By: #### 2 777-1, 62938-4, 3084-1, 11720-7 ####[facility] LABIA [id number] [place] [address] [place] ALP [Catalytic activity/Vol] 53 U/L Normal 34-123 [facility] Comment on above: Order Comment: Speci men Type: BLOOD SPECIMENOrdering Facility: [facility] Address: [address] Performed By: #### 2 777-1, 91906-1, 3083-, ####[facility] LABCLIA [id number] [place] [address] [place] ALT [Catalytic activity/Vol] 14 U/L Normal 7-38 [facility] Comment on above: Order Comment: Speci men Type: BLOOD SPECIMENOrdering Facility: [facility] Address: [address] [place] [address] Performed By: #### 2 777-1, 86765-7, 3083-, ####[facility] LABCLIA [id number] [place] [address] [place] Anion gap [Moles/Vol] 11 mmol/L Normal 9-18 [facility] Comment on above: Order Comment: Speci men Type: BLOOD SPECIMENOrdering Facility: [facility] Address: [address] [place] [address] Performed By: #### 2 777-1, 51623-6, 3083-09, ####[facility] LABCLIA [id number] [place] [address] [place] AST [Catalytic activity/Vol] 12 U/L Low 13-35 [facility] Comment on above: Order Comment: Speci men Type: BLOOD SPECIMENOrdering Facility: [facility] Address: [address] [place], [place] [address] Performed By: #### 2 777-1, 72031-7, 3083-09, ####[facility] LABCLIA [id number] [place] [address] [place] Bilirubin [Mass/Vol] 0.2 mg/dL Normal 0.2-1.3 [facility] Comment on above: Order Comment: Speci men Type: BLOOD SPECIMENOrdering Facility: [facility] Address: [address] [place], [place] [address] Performed By: #### 2 777-1, 83499-7, 3083-09, ####[facility] LABCLIA [id number] [place] [address] [place] Calcium [Mass/Vol] 8.7 mg/dL Normal 8.5-10.2 [facility] Comment on above: Order Comment: Speci men Type: BLOOD SPECIMENOrdering Facility: [facility] Address: [address] [place], [place] [address] Performed By: #### 2 777-1, 55414-8, 3083-09, ####[facility] LABIA [id number] [place] [address] [place] Chloride [Moles/Vol] 109 mmol/L High 97-105 [facility] Comment on above: Order Comment: Speci men Type: BLOOD SPECIMENOrdering Facility: [facility] Address: [address] [place], [place] [address] Performed By: #### 2 777-1, 34148-4, 3083-09, ####[facility] LABIA [id number] [place] [address] [place] CO2 [Moles/Vol] 21 mmol/L Low 22-30 [facility] Comment on above: Order Comment: Speci men Type: BLOOD SPECIMENOrdering Facility: [facility] Address: [address] [place], [place] [address] Performed By: #### 2 777-1, 93024-8, 3083-09, 98750-3 ####[facility] LABCLIA [id number] [place] [id number] [place] Creatinine [Mass/Vol] 1.03 mg/dL High 0.58-0.96 [facility] Comment on above: Order Comment: Speci men Type: BLOOD SPECIMENOrdering Facility: [facility] Address: [address] [place] [address] Performed By: #### 2 777-1, 60867-0, 3084-1, 36556-2 ####[facility] LABIA [id number] [address] [place] Creatinine and Glomerular filtration rate.predicted panel (S/P/Bld) 59 mL/min/1.73m??? Low >=60 [facility] Comment on above: Order Comment: Elvia escobar Type: BLOOD SPECIMENOrdering Facility: [facility] Address: [address] Result Comment: Berenice mated Glomerular Filtration [...] actual GFR. Performed By: #### 2 777-1, 06502-2, 3084-1, 10290-1 ####[facility] LABCLIA [id number] [place] [address] [place] Glucose [Mass/Vol] 106 mg/dL High 74-99 [facility] Comment on above: Order Comment: Elvia escobar Type: BLOOD SPECIMENOrdering Facility: [facility] Address: [address] [place] [address] Result Comment: [place] [...] 2016.39(Suppl 1). Performed By: #### 2 777-1, 78863-6, 3083-09, ####[facility] LABCLIA [id number] [address] [address] [place] Potassium [Moles/Vol] 3.7 mmol/L Normal 3.7-5.1 [facility] Comment on above: Order Comment: Speci men Type: BLOOD SPECIMENOrdering Facility: [facility] Address: [address] [place] [address] Performed By: #### 2 777-1, 69607-2, 3083-09, ####[facility] LABIA [id number] [place] [address] [place] Protein [Mass/Vol] 5.4 g/dL Low 6.3-8.0 [facility] Comment on above: Order Comment: Speci men Type: BLOOD SPECIMENOrdering Facility: [facility] Address: [address] [place] [address] Performed By: #### 2 777-1, 37141-9, 3083-09, ####[facility] LABIA [id number] [place] [address] [place] Sodium [Moles/Vol] 141 mmol/L Normal 136-144 [facility] Comment on above: Order Comment: Speci men Type: BLOOD SPECIMENOrdering Facility: [facility] Address: [address] [place], [place] [address] Performed By: #### 2 777-1, 41275-5, 3083-09, ####[facility] LABCLIA [id number] [address] [address] [place] Urea nitrogen [Mass/Vol] 16 mg/dL Normal 7-21 [facility] Comment on above: Order Comment: Speci men Type: BLOOD SPECIMENOrdering Facility: [facility] Address: [address] [place] [address] Performed By: #### 2 777-1, 26100-9, 3084-1, 50595-1 ####[facility] LABCLIA [id number] [address] [place] DNA EXTRACTION BONE MARROW ( BUFFY COAT)on 06-01-2023 DNA EXTRACTION BONE MARROW (BUFFY COAT) Normal [facility] Comment on above: Order Comment: Rochellei [facility] Type: BONE MARROW SPECIMENOrdering Facility: [facility] Address: [address] [place] [address] Result Comment: This specimen was received and successfully processed for future DNA purification should molecular testing be needed. Specimens will be available for 3 years from date of collection.To order testing on this specimen for [facility] patients, please place an [facility] order for DNA and RNA Clinical Testing ([id number]). To order testing for patients outside of the [facility] system, please request DNA and RNA for Clinical Testing, order code [id number].If additional paperwork is required for testing, please send completed forms via secure email to . Performed By: #### N UCBUF ####CLARITY ILLUMINA LIMSCLIA [id number] [address] FLOW CYTOMETRY FOR LEUKEMIA/ LYMPHOMA (FCLL) PERFORMABLEon 06-01-2023 FLOW CYTOMETRY ORDER STATUS See Results in chart under F case ID Normal [facility] Comment on above: Order Comment: Speci men Type: BONE MARROW SPECIMENOrdering Facility: [facility] Address: [address] [place] [address] Result Comment: Vero ected result: Previously reported as A bone marrow sample was received for potential flow cytometry studies. Following morphologic review, flow cytometric studies will be ordered by the hematopathologist if testing is indicated. on 06/01/2023 at9:31 AM EDT. Performed By: #### F CLLP, FCLLRFLX ####[facility] LABCLIA [id number] [address] [place] FLOW CYTOMETRY FOR LEUKEMIA/ LYMPHOMA (FCLL) REFLEXon 06-01-2023 DIAGNOSIS COMMENT Normal [facility] Comment on above: Order Comment: Speci men Type: BONE MARROW SPECIMENOrdering Facility: [facility] Address: [address] [place] [address] Performed By: #### F CLLP, FCLLRFLX ####[facility] LABCLIA [id number] [address] FLOW CYTOMETRY RESULTS Normal [facility] Comment on above: Order Comment: Speci men Type: BONE MARROW SPECIMENOrdering Facility: [facility] Address: [address] [place] [address] Result Comment: Spec imen type: Bone marrow aspirateViability: 99%Morphology comments: See associated bone marrow biopsy report.Results:Marker Normal Cell Result (Lymph) Type CD2 T-cell Normal patternCD3 T-cell Normal patternCD4 T-cell subset Normal patternCD5 T-cell Normal patternCD7 T-cell Normal patternCD8 T-cell subset Normal jczpdifJX20 B-cell Normal lxtctpaEJ44 Myeloid Normal hcjropkLY56/56 NK-cell Normal xjarxofCL46 B-cell Normal jtubasmMQ02 B-cell Normal wqxlxfzIJ16 B-cell Normal xrnfwhmMA87 Hough-leukocyte Normal ixxlcztZL894 B-cell Normal ddqrgasEI240 B-cell Normal patternKappa/Lambda B-cell subset PolytypicTRBC1 T-cell Normal, polytypicFlow cytometric analysis of the bone marrow aspirate reveals that 13% of total events have the CD45 and light scatter properties of lymphocytes. The lymphocytes are composed of T-cells (91%, CD4:CD8 ratio = 3.2), NK cells (1%), and polytypic B-cells (8%). Performed By: #### F CLLP, FCLLRFLX ####[facility] LABCLIA [id number] [place] [address] [place] GROSS DESCRIPTION A. Bone Marrow Normal [facility] Comment on above: Order Comment: Elvia escobar Type: BONE MARROW SPECIMENOrdering Facility: [facility] Address: [address] [place] [address] Result Comment: Rece ived 3 ml BM in heparin. Performed By: #### F CLLP, FCLLRFLX ####[facility] LABCLIA [id number] [place] [address] [place] INTERPRETATION Normal [facility] Comment on above: Order Comment: Elvia escobar Type: BONE MARROW SPECIMENOrdering Facility: [facility] Address: [address] [place] [address] Result Comment: The lymphoproliferative disorder panel is performed on this bone marrow by flow cytometry. There is no immunophenotypic evidence of involvement by a lymphoproliferative disorder. Correlation with the clinical and bone marrow histopathologic findings is suggested. Performed By: #### F CLLP, FCLLRFLX ####[facility] LABCLIA [id number] [place] [address] [place] FLT3 ITD HN BONE MARROWon CLARITY SIGNOUT PATHOLOGIST [id number] Normal [facility] Comment on above: Order Comment: Elvia escobar Type: BONE MARROW SPECIMENOrdering Facility: [facility] Address: [address] [place] [address] Performed By: #### H DMNGS, F3IM ####[facility] ILLUMINA LIMSCLIA [id number] [place] [address] [place] FLT3 ITD HN PANEL BONE MARROW Normal [facility] Comment on above: Order Comment: Elvia escobar Type: BONE MARROW SPECIMENOrdering Facility: [facility] Address: [address] [place] [address] Result Comment: FLT3 Internal Tandem Duplication (ITD) Mutation TestingLaboratory Accession Number: [id number] Internal Tandem Duplication (ITD) mutation: Not DetectedComment:FLT3/ITD [...] from the specimen provided. Regions of the WFU2rprebvlg kinase receptor gene are subjected to the [...] was developed and its performance characteristics determinedby [facility] [place] (-PLIL). It has not been cleared or approved bythe FDA. RT-PLMI is regulated under CLIA as certified to perform high-complexity testing. This test is used for clinical purposes. It shouldnot be regarded as investigational or for research.Testing and interpretation performed at [facility], [address] [place] [address]. CLIA Number: [id number] reviewed by Leslye Ha MD, PhD Performed By: #### H DMN, F3 ####[facility] ILLUM[facility] LIMSCLIA [id number] [place] [address] [place] HISTORY PHYSICALon 3 HISTORY PHYSICAL Normal [facility] Magnesium SerPl-mCncon 06-01 Magnesium [Mass/Vol] 2.1 mg/dL Normal 1.7-2.3 [facility] Comment on above: Order Comment: Speci men Type: BLOOD SPECIMENOrdering Facility: [facility] Address: [address] [address] Performed By: #### 2 777-1, 46249-1, 308-1, 93705-5 ####[facility] LABCLIA [id number] [place] [address] [place] PT EDon 06-01-2023 PT ED Normal [facility] Phosphate SerPl-mCncon 06-01 Phosphate [Mass/Vol] 4.4 mg/dL Normal 2.7-4.8 [facility] Comment on above: Order Comment: Speci men Type: BLOOD SPECIMENOrdering Facility: [facility] Address: [address] [address] Performed By: #### 2 777-1, 56815-1, 3084-1, 47454-0 ####[facility] LABCLIA [id number] [place] [address] [place] Urate SerPl-mCncon 3 Urate [Mass/Vol] 3.2 mg/dL Normal 2.5-6.6 [facility] Comment on above: Order Comment: Speci men Type: BLOOD SPECIMENOrdering Facility: [facility] Address: [address] [place] [address] Performed By: #### 2 777-1, 62686-7, 3084-1, 66112-3 ####[facility] LABCLIA [id number] [place] [address] [place] ALLIED HEALTHon 05-31-2023 ALLIED HEALTH Normal [facility] CBC W Auto Differential pane l (Bld)on 05-31-2023 Anisocytosis Ql (Bld) Present Normal [facility] Comment on above: Order Comment: Speci men Type: BLOOD SPECIMENOrdering Facility: [facility] Address: [address] [place] [address] Performed By: #### 5 7021-8 ####[facility] LABCLIA [id number] [place] [address] [place] Basophils (Bld) [#/Vol] 0.00 10*3/uL Normal <0.11 [facility] Comment on above: Order Comment: Speci men Type: BLOOD SPECIMENOrdering Facility: [facility] Address: [address] [place] [address] Performed By: #### 5 7021-8 ####[facility] LABCLIA [id number] [place] [address] [place] Basophils/100 WBC (Bld) 0.0 % Normal [facility] Comment on above: Order Comment: Speci men Type: BLOOD SPECIMENOrdering Facility: [facility] Address: [address] [place] [address] Performed By: #### 5 7021-8 ####[facility] LABCLIA [id number] [address] [place] BLAST% 1.8 % High <=0.0 [facility] Comment on above: Order Comment: Speci men Type: BLOOD SPECIMENOrdering Facility: [facility] Address: [address] [place], [place] [address] Performed By: #### 5 7021-8 ####[facility] LABCLIA [id number] [place] [address] [place] Differential cell count method Nom (Bld) Manual Normal [facility] Comment on above: Order Comment: Speci men Type: BLOOD SPECIMENOrdering Facility: [facility] Address: [address] [place], [place] [address] Performed By: #### 5 7021-8 ####[facility] LABCLIA [id number] [place] [address] [place] Eosinophils (Bld) [#/Vol] 0.06 10*3/uL Normal <0.46 [facility] Comment on above: Order Comment: Speci men Type: BLOOD SPECIMENOrdering Facility: [facility] Address: [address] [place], [place] [address] Performed By: #### 5 7021-8 ####[facility] LABCLIA [id number] [place] [address] [place] Eosinophils/100 WBC (Bld) 3.5 % Normal [facility] Comment on above: Order Comment: Speci men Type: BLOOD SPECIMENOrdering Facility: [facility] Address: [address] [place], [place] [address] Performed By: #### 5 7021-8 ####[facility] LABCLIA [id number] [place] [address] [place] Erythrocyte distribution width (RBC) [Ratio] 17.7 % High 11.5-15.0 [facility] Comment on above: Order Comment: Speci men Type: BLOOD SPECIMENOrdering Facility: [facility] Address: [address] [place], [place] [address] Performed By: #### 5 7021-8 ####[facility] LABCLIA [id number] [place] [address] [place] Hematocrit (Bld) [Volume fraction] 21.1 % Low 36.0-46.0 [facility] Comment on above: Order Comment: Speci men Type: BLOOD SPECIMENOrdering Facility: [facility] Address: [address] [place] [address] Performed By: #### 5 7021-8 ####[facility] LABCLIA [id number] [place] [address] [place] Hemoglobin (Bld) [Mass/Vol] 7.2 g/dL Low 11.5-15.5 [facility] Comment on above: Order Comment: Speci men Type: BLOOD SPECIMENOrdering Facility: [facility] Address: [address] [place] [address] Performed By: #### 5 7021-8 ####[facility] LABCLIA [id number] [place] [address] [place] HYPOGRANULATED PMNS Present Normal [facility] Comment on above: Order Comment: Speci men Type: BLOOD SPECIMENOrdering Facility: [facility] Address: [address] [place] [address] Performed By: #### 5 7021-8 ####[facility] LABIA [id number] [place] [address] [place] Lymphocytes (Bld) [#/Vol] 1.43 10*3/uL Normal 1.00-4.00 [facility] Comment on above: Order Comment: Speci men Type: BLOOD SPECIMENOrdering Facility: [facility] Address: [address] [place], [place] [address] Performed By: #### 5 7021-8 ####[facility] LABCLIA [id number] [place] [address] [place] Lymphocytes/100 WBC (Bld) 85.9 % Normal [facility] Comment on above: Order Comment: Speci men Type: BLOOD SPECIMENOrdering Facility: [facility] Address: [address] Performed By: #### 5 7021-8 ####[facility] [id number] [address] MCH (RBC) [Entitic mass] 34.0 pg Normal 26.0-34.0 [facility] Comment on above: Order Comment: Speci men Type: BLOOD SPECIMENOrdering Facility: [facility] Address: [address] Performed By: #### 5 7021-8 ####[facility] [id number] [address] [place] [facility] MCHC (RBC) [Mass/Vol] 34.1 g/dL Normal 30.5-36.0 [facility] Comment on above: Order Comment: Speci men Type: BLOOD SPECIMENOrdering Facility: [facility] Address: [address] [place], [place] [address] Performed By: #### 5 7021-8 ####[facility] [id number] [address] [place] MCV (RBC) [Entitic vol] 99.5 fL Normal 80.0-100.0 [facility] Comment on above: Order Comment: Speci men Type: BLOOD SPECIMENOrdering Facility: [facility] Address: [address] [place], [place] [address] Performed By: #### 5 7021-8 ####[facility] [id number] [place] [address] [place] Monocytes (Bld) [#/Vol] 0.00 10*3/uL Normal <0.87 [facility] Comment on above: Order Comment: Speci men Type: BLOOD SPECIMENOrdering Facility: [facility] Address: [address] [place], [place] [address] Performed By: #### 5 7021-8 ####[facility] LABCLIA [id number] [place] [address] [place] Monocytes/100 WBC (Bld) 0.0 % Normal [facility] Comment on above: Order Comment: Speci men Type: BLOOD SPECIMENOrdering Facility: [facility] Address: [address] [place] [address] Performed By: #### 5 7021-8 ####[facility] LABCLIA [id number] [place] [address] [place] Neutrophils (Bld) [#/Vol] 0.15 10*3/uL Low 1.45-7.50 [facility] Comment on above: Order Comment: Speci men Type: BLOOD SPECIMENOrdering Facility: [facility] Address: [address] [place] [address] Performed By: #### 5 7021-8 ####[facility] LABCLIA [id number] [place] [address] [place] Neutrophils/100 WBC (Bld) 8.8 % Normal [facility] Comment on above: Order Comment: Speci men Type: BLOOD SPECIMENOrdering Facility: [facility] Address: [address] [place], [place] [address] Performed By: #### 5 7021-8 ####[facility] LABCLIA [id number] [place] [address] [place] Nucleated RBC (Bld) [#/Vol] 0.01 10*3/uL High <0.01 [facility] Comment on above: Order Comment: Speci men Type: BLOOD SPECIMENOrdering Facility: [facility] Address: [address] [place], [place] [address] Performed By: #### 5 7021-8 ####[facility] LABCLIA [id number] [place] [address] [place] Nucleated RBC/100 WBC (Bld) [Ratio] 0.9 /100 WBC Normal [facility] Comment on above: Order Comment: Speci men Type: BLOOD SPECIMENOrdering Facility: [facility] Address: [address] [place] [address] Performed By: #### 5 7021-8 ####[facility] LABIA [id number] [place] [address] [place] Ovalocytes LM Ql (Bld) Few Normal [facility] Comment on above: Order Comment: Speci men Type: BLOOD SPECIMENOrdering Facility: [facility] Address: [address] [place] [address] Performed By: #### 5 7021-8 ####[facility] LABIA [id number] [place] [address] [place] Platelet mean volume (Bld) [Entitic vol] Normal [facility] Comment on above: Order Comment: Speci men Type: BLOOD SPECIMENOrdering Facility: [facility] Address: [address] [place], [place] [address] Result Comment: Unab le to Report. Performed By: #### 5 7021-8 ####[facility] [id number] [place] [address] [place] Platelets (Bld) [#/Vol] 13 10*3/uL Low 150-400 [facility] Comment on above: Order Comment: Speci men Type: BLOOD SPECIMENOrdering Facility: [facility] Address: [address] [place], [place] [address] Result Comment: No c lot detected.Results checked and verified. Performed By: #### 5 7021-8 ####[facility] LABIA [id number] [place] [address] [place] Platelets Estimate (Bld) [#/Vol] Decreased Normal [facility] Comment on above: Order Comment: Speci men Type: BLOOD SPECIMENOrdering Facility: [facility] Address: [address] [place] [address] Performed By: #### 5 7021-8 ####[facility] LABCLIA [id number] [place] [address] [place] Polychromasia LM Ql (Bld) Slight Normal [facility] Comment on above: Order Comment: Speci men Type: BLOOD SPECIMENOrdering Facility: [facility] Address: [address] [place] [address] Performed By: #### 5 7021-8 ####[facility] LABCLIA [id number] [address] [place] RBC (Bld) [#/Vol] 2.12 10*6/uL Low 3.90-5.20 [facility] Comment on above: Order Comment: Speci men Type: BLOOD SPECIMENOrdering Facility: [facility] Address: [address] [place] [address] Performed By: #### 5 7021-8 ####[facility] LABCLIA [id number] [place] [address] [place] RBC FRAGMENTS Few Abnormal None Seen [facility] Comment on above: Order Comment: Speci men Type: BLOOD SPECIMENOrdering Facility: [facility] Address: [address] [place] [address] Performed By: #### 5 7021-8 ####[facility] LABIA [id number] [place] [address] [place] RED CELL MORPH Reviewed: see result s of individual morphologies Normal [facility] Comment on above: Order Comment: Speci men Type: BLOOD SPECIMENOrdering Facility: [facility] Address: [address] [place] [address] Performed By: #### 5 7021-8 ####[facility] LABCLIA [id number] [place] [address] [place] WBC (Bld) [#/Vol] 1.66 10*3/uL Low 3.70-11.00 [facility] Comment on above: Order Comment: Speci men Type: BLOOD SPECIMENOrdering Facility: [facility] Address: [address] [place] [address] Result Comment: No c lot detected. Performed By: #### 5 7021-8 ####[facility] LABCLIA [id number] [place] [address] [place] CNPNon 05-31-2023 CNPN Normal [facility] CONSULT PROGon 05-31-2023 CONSULT PROG Normal [facility] metabolic 2000 panelon 05-31-2023 Albumin [Mass/Vol] 3.5 g/dL Low 3.9-4.9 [facility] Comment on above: Order Comment: Speci men Type: BLOOD SPECIMENOrdering Facility: [facility] Address: [address] [place] [address] Performed By: #### 2 4323-8, 48847-9, 277-1, 3084-1 ####[facility] LABCLIA [id number] [place] [address] [place] ALP [Catalytic activity/Vol] 53 U/L Normal 34-123 [facility] Comment on above: Order Comment: Speci men Type: BLOOD SPECIMENOrdering Facility: [facility] Address: [address] [place] [address] Performed By: #### 2 4323-8, 88733-4, 277-1, 3084-1 ####[facility] LABCLIA [id number] [place] [id number] [place] ALT [Catalytic activity/Vol] 17 U/L Normal 7-38 [facility] Comment on above: Order Comment: Speci men Type: BLOOD SPECIMENOrdering Facility: [facility] Address: [address] [place] [address] Performed By: #### 2 4323-8, 56678-1, 277-1, 3084-1 ####[facility] LABCLIA [id number] [place] [address] [place] Anion gap [Moles/Vol] 10 mmol/L Normal 9-18 [facility] Comment on above: Order Comment: Speci men Type: BLOOD SPECIMENOrdering Facility: [facility] Address: [address] [place] [address] Performed By: #### 2 4323-8, 61333-4, 2776-, 3083-1 ####[facility] LABCLIA [id number] [place] [address] [place] AST [Catalytic activity/Vol] 16 U/L Normal 13-35 [facility] Comment on above: Order Comment: Speci men Type: BLOOD SPECIMENOrdering Facility: [facility] Address: [address] [place] [address] Performed By: #### 2 4323-8, 66208-4, 2776-09, 3083-1 ####[facility] LABCLIA [id number] [place] [address] [place] Bilirubin [Mass/Vol] 0.3 mg/dL Normal 0.2-1.3 [facility] Comment on above: Order Comment: Speci men Type: BLOOD SPECIMENOrdering Facility: [facility] Address: [address] [place] [address] Performed By: #### 2 4323-8, 33764-3, 2776-09, 3083-1 ####[facility] LABCLIA [id number] [place] [address] [place] Calcium [Mass/Vol] 9.2 mg/dL Normal 8.5-10.2 [facility] Comment on above: Order Comment: Speci men Type: BLOOD SPECIMENOrdering Facility: [facility] Address: [address] [place] [address] Performed By: #### 2 4323-8, 26252-0, 2776-, 3083-1 ####[facility] LABCLIA [id number] [place] [address] [place] Chloride [Moles/Vol] 108 mmol/L High 97-105 [facility] Comment on above: Order Comment: Speci men Type: BLOOD SPECIMENOrdering Facility: [facility] Address: [address] [place] [address] Performed By: #### 2 4323-8, 54813-2, 2776-, 3084-1 ####[facility] LABIA [id number] [place] [address] [place] CO2 [Moles/Vol] 23 mmol/L Normal 22-30 [facility] Comment on above: Order Comment: Speci men Type: BLOOD SPECIMENOrdering Facility: [facility] Address: [address] [place] [address] Performed By: #### 2 4323-8, 81340-2, 2776-, 3084-1 ####[facility] LABIA [id number] [place] [address] [place] Creatinine [Mass/Vol] 0.96 mg/dL Normal 0.58-0.96 [facility] Comment on above: Order Comment: Speci men Type: BLOOD SPECIMENOrdering Facility: [facility] Address: [address] [place] [address] Performed By: #### 2 4323-8, 61294-1, 277-, 3084-1 ####[facility] LABIA [id number] [place] [address] [place] Creatinine and Glomerular filtration rate.predicted panel (S/P/Bld) 64 mL/min/1.73m??? Normal >=60 [facility] Comment on above: Order Comment: Speci men Type: BLOOD SPECIMENOrdering Facility: [facility] Address: [address] [place] [address] Result Comment: Berenice mated Glomerular Filtration Rate [...] By: #### 2 4323-8, , 2776-, 3083- ####[facility] LABCLIA [id number] [place] [address] [place] Glucose [Mass/Vol] 106 mg/dL High 74-99 [facility] Comment on above: Order Comment: Elvia escobar Type: BLOOD SPECIMENOrdering Facility: [facility] Address: [address] [address] Result Comment: [place] [...] By: #### 2 4323-8, , 2776-09, 3083-09 ####[facility] LABCLIA [id number] [place] [id number] [place] Potassium [Moles/Vol] 4.0 mmol/L Normal 3.7-5.1 [facility] Comment on above: Order Comment: Elvia escobar Type: BLOOD SPECIMENOrdering Facility: [facility] Address: [address] [id number] Performed By: #### 2 4323-8, , 2776-09, 3083- ####[facility] LABCLIA [id number] [address] [address] [place] Protein [Mass/Vol] 5.7 g/dL Low 6.3-8.0 [facility] Comment on above: Order Comment: Speci men Type: BLOOD SPECIMENOrdering Facility: [facility] Address: [address] [place] [address] Performed By: #### 2 4323-8, 52769-9, 2776-, 3083-1 ####[facility] LABIA [id number] [place] [address] [place] Sodium [Moles/Vol] 141 mmol/L Normal 136-144 [facility] Comment on above: Order Comment: Speci men Type: BLOOD SPECIMENOrdering Facility: [facility] Address: [address] [place] [address] Performed By: #### 2 4323-8, 53528-2, 2776-, 308-1 ####[facility] LABIA [id number] [place] [address] [place] Urea nitrogen [Mass/Vol] 13 mg/dL Normal 7-21 [facility] Comment on above: Order Comment: Speci men Type: BLOOD SPECIMENOrdering Facility: [facility] Address: [address] [place] [address] Performed By: #### 2 4323-8, 02636-4, 2776-09, 3083-1 ####[facility] LABIA [id number] [address] [address] [place] Magnesium SerPl-mCncon 05-31 Magnesium [Mass/Vol] 2.1 mg/dL Normal 1.7-2.3 [facility] Comment on above: Order Comment: Speci men Type: BLOOD SPECIMENOrdering Facility: [facility] Address: [address] [place] [address] Performed By: #### 2 4323-8, 68742-4, 2776-1, 3084-1 ####[facility] LABCLIA [id number] [place] [address] [place] PT EDon 05-31-2023 PT ED Normal [facility] PT panel Coag (PPP)on 2022 INR Coag (PPP) [Relative time] 1.1 {INR} Normal 0.9-1.3 [facility] Comment on above: Order Comment: Speci men Type: BLOOD SPECIMENOrdering Facility: [facility] Address: [address] [address] Result Comment: Rajwinder min K Antagonist (VKA) [...] al. Chest 2012, 141:7S-47SNishcristina RA, et al. [facility] 2017, 70: 252-289 Performed By: #### 3 4528-0 ####[facility] LABCLIA [id number] [place] [id number] [place] PT Coag (PPP) [Time] 11.3 s Normal 9.7-13.0 [facility] Comment on above: Order Comment: Speci men Type: BLOOD SPECIMENOrdering Facility: [facility] Address: [address] [phone] Performed By: #### 3 4528-0 ####[facility] LABCLIA [id number] [place] [address] [place] Phosphate SerPl-mCncon 05-31 Phosphate [Mass/Vol] 4.0 mg/dL Normal 2.7-4.8 [facility] Comment on above: Order Comment: Speci men Type: BLOOD SPECIMENOrdering Facility: [facility] Address: [address] [place] [address] Performed By: #### 2 4323-8, 60847-1, 2777-1, 3084-1 ####[facility] LABCLIA [id number] [place] [address] [place] SOCIAL WORKon 05-31-2023 SOCIAL WORK Normal [facility] TYPE + SCREENon 05-31-2023 ABO O Normal [facility] Comment on above: Order Comment: Speci men Type: BLOOD SPECIMENOrdering Facility: [facility] Address: [address] [place] [address] Performed By: #### T SCR ####CC [facility]IN BLOOD BANKCLIA [id number] [place] [address] [place] HISTORICAL AB SCR STATUS Negative Normal [facility] Comment on above: Order Comment: Speci men Type: BLOOD SPECIMENOrdering Facility: [facility] Address: [address] [place] [address] Performed By: #### T SCR ####CC MA[facility] BLOOD BANKCLIA [id number] [place] [address] [place] Rh Nom (Bld) Positive Normal [facility] Comment on above: Order Comment: Speci men Type: BLOOD SPECIMENOrdering Facility: [facility] Address: [address] [place] [address] Performed By: #### T SCR ####CC MA[facility] BLOOD BANKCLIA [id number] [place] [address] [place] TYPE AND SCREEN EXPIRATION 06/03/2023 23:59 Normal [facility] Comment on above: Order Comment: Speci men Type: BLOOD SPECIMENOrdering Facility: [facility] Address: [address] [address] Performed By: #### T SCR ####[facility] BLOOD BANKCLIA [id number] [place] [address] [place] Urate SerPl-mCncon Urate [Mass/Vol] 2.4 mg/dL Low 2.5-6.6 [facility] Comment on above: Order Comment: Speci men Type: BLOOD SPECIMENOrdering Facility: [facility] Address: [address] [address] Performed By: #### 2 4323-8, 03690-9, 2777-1, 3084-1 ####[facility] LABCLIA [id number] [place] [address] [place] Vancomycin [place] SerPl-mCncon 05-31-2023 Vancomycin random [Mass/Vol] 19.2 ug/mL Normal 10.0-20.0 [facility] Comment on above: Order Comment: Speci men Type: BLOOD SPECIMENOrdering Facility: [facility] Address: [address] [place] [address] Result Comment: Refe rence ranges and high/low indicator flags are provided as general guidelines only. The treating physician must determine appropriate target levels/dosing based on the specific clinical situation. Performed By: #### 4 091-5 ####[facility] LABCLIA [id number] [place] [address] [place] XR CHEST 1V PORT POST PICC - NBon 05-31-2023 XR CHEST 1V PORT POST PICC -NB Normal [facility] CBC W Auto Differential pane l (Bld)on 05-30-2023 Anisocytosis Ql (Bld) Present Normal [facility] Comment on above: Order Comment: Speci men Type: BLOOD SPECIMENOrdering Facility: [facility] Address: [address] [address] Performed By: #### 5 7021-8 ####[facility] LABCLIA [id number] [place] [address] [place] Basophils (Bld) [#/Vol] 0.00 10*3/uL Normal <0.11 [facility] Comment on above: Order Comment: Speci men Type: BLOOD SPECIMENOrdering Facility: [facility] Address: [address] [place] [address] Performed By: #### 5 7021-8 ####[facility] LABCLIA [id number] [place] [address] [place] Basophils/100 WBC (Bld) 0.0 % Normal [facility] Comment on above: Order Comment: Speci men Type: BLOOD SPECIMENOrdering Facility: [facility] Address: [address] [place] [address] Performed By: #### 5 7021-8 ####[facility] LABCLIA [id number] [place] [address] [place] BLAST% 2.3 % High <=0.0 [facility] Comment on above: Order Comment: Speci men Type: BLOOD SPECIMENOrdering Facility: [facility] Address: [address] [place] [address] Performed By: #### 5 7021-8 ####[facility] LABCLIA [id number] [place] [address] [place] Differential cell count method Nom (Bld) Manual Normal [facility] Comment on above: Order Comment: Speci men Type: BLOOD SPECIMENOrdering Facility: [facility] Address: [address] [place], [place] [address] Performed By: #### 5 7021-8 ####[facility] LABCLIA [id number] [place] [address] [place] Eosinophils (Bld) [#/Vol] 0.01 10*3/uL Normal <0.46 [facility] Comment on above: Order Comment: Speci men Type: BLOOD SPECIMENOrdering Facility: [facility] Address: [address] [address] Performed By: #### 5 7021-8 ####[facility] LABCLIA [id number] [place] [address] [place] Eosinophils/100 WBC (Bld) 0.6 % Normal [facility] Comment on above: Order Comment: Speci men Type: BLOOD SPECIMENOrdering Facility: [facility] Address: [address] [address] Performed By: #### 5 7021-8 ####[facility] LABIA [id number] [place] [address] [place] Erythrocyte distribution width (RBC) [Ratio] 17.8 % High 11.5-15.0 [facility] Comment on above: Order Comment: Speci men Type: BLOOD SPECIMENOrdering Facility: [facility] Address: [address] Performed By: #### 5 7021-8 ####[facility] LABIA [id number] [place] [address] [place] Hematocrit (Bld) [Volume fraction] 20.9 % Low 36.0-46.0 [facility] Comment on above: Order Comment: Speci men Type: BLOOD SPECIMENOrdering Facility: [facility] Address: [address] [place], [place] [address] Performed By: #### 5 7021-8 ####[facility] LABIA [id number] [place] [address] [place] Hemoglobin (Bld) [Mass/Vol] 7.1 g/dL Low 11.5-15.5 [facility] Comment on above: Order Comment: Speci men Type: BLOOD SPECIMENOrdering Facility: [facility] Address: [address] Performed By: #### 5 7021-8 ####[facility] LABCLIA [id number] [place] [address] [place] Lymphocytes (Bld) [#/Vol] 1.29 10*3/uL Normal 1.00-4.00 [facility] Comment on above: Order Comment: Speci men Type: BLOOD SPECIMENOrdering Facility: [facility] Address: [address] [place] [address] Performed By: #### 5 7021-8 ####[facility] LABIA [id number] [place] [address] [place] Lymphocytes/100 WBC (Bld) 77.2 % Normal [facility] Comment on above: Order Comment: Speci men Type: BLOOD SPECIMENOrdering Facility: [facility] Address: [address] [place] [address] Performed By: #### 5 7021-8 ####[facility] LABIA [id number] [address] [place] MCH (RBC) [Entitic mass] 33.5 pg Normal 26.0-34.0 [facility] Comment on above: Order Comment: Speci men Type: BLOOD SPECIMENOrdering Facility: [facility] Address: [address] [place] [address] Performed By: #### 5 7021-8 ####[facility] LABIA [id number] [address] [place] MCHC (RBC) [Mass/Vol] 34.0 g/dL Normal 30.5-36.0 [facility] Comment on above: Order Comment: Speci men Type: BLOOD SPECIMENOrdering Facility: [facility] Address: [address] [place] [address] Performed By: #### 5 7021-8 ####[facility] LABIA [id number] [place] [address] [place] MCV (RBC) [Entitic vol] 98.6 fL Normal 80.0-100.0 [facility] Comment on above: Order Comment: Speci men Type: BLOOD SPECIMENOrdering Facility: [facility] Address: [address] [place], [place] [address] Performed By: #### 5 7021-8 ####[facility] LABCLIA [id number] [place] [address] [place] Metamyelocytes/10 0 WBC (Bld) 4.0 % Normal [facility] Comment on above: Order Comment: Speci men Type: BLOOD SPECIMENOrdering Facility: [facility] Address: [address] [place], [place] [address] Performed By: #### 5 7021-8 ####[facility] LABCLIA [id number] [place] [address] [place] Monocytes (Bld) [#/Vol] 0.02 10*3/uL Normal <0.87 [facility] Comment on above: Order Comment: Speci men Type: BLOOD SPECIMENOrdering Facility: [facility] Address: [address] [place], [place] [address] Performed By: #### 5 7021-8 ####[facility] LABIA [id number] [place] [address] [place] Monocytes/100 WBC (Bld) 1.1 % Normal [facility] Comment on above: Order Comment: Speci men Type: BLOOD SPECIMENOrdering Facility: [facility] Address: [address] [place], [place] [address] Performed By: #### 5 7021-8 ####[facility] LABIA [id number] [place] [address] [place] Neutrophils (Bld) [#/Vol] 0.25 10*3/uL Low 1.45-7.50 [facility] Comment on above: Order Comment: Speci men Type: BLOOD SPECIMENOrdering Facility: [facility] Address: [address] [place] [address] Performed By: #### 5 7021-8 ####[facility] LABCLIA [id number] [place] [address] [place] Neutrophils/100 WBC (Bld) 14.8 % Normal [facility] Comment on above: Order Comment: Speci men Type: BLOOD SPECIMENOrdering Facility: [facility] Address: [address] Performed By: #### 5 7021-8 ####[facility] LABCLIA [id number] [place] [address] [place] Nucleated RBC (Bld) [#/Vol] 0.03 10*3/uL High <0.01 [facility] Comment on above: Order Comment: Speci men Type: BLOOD SPECIMENOrdering Facility: [facility] Address: [address] Performed By: #### 5 7021-8 ####[facility] LABIA [id number] [place] [address] [place] Nucleated RBC/100 WBC (Bld) [Ratio] 1.7 /100 WBC Normal [facility] Comment on above: Order Comment: Speci men Type: BLOOD SPECIMENOrdering Facility: [facility] Address: [address] Performed By: #### 5 7021-8 ####[facility] LABCLIA [id number] [place] [address] [place] Ovalocytes LM Ql (Bld) Few Normal [facility] Comment on above: Order Comment: Speci men Type: BLOOD SPECIMENOrdering Facility: [facility] Address: [address] Performed By: #### 5 7021-8 ####[facility] LABCLIA [id number] [place] [address] [place] Platelet mean volume (Bld) [Entitic vol] Normal [facility] Comment on above: Order Comment: Speci men Type: BLOOD SPECIMENOrdering Facility: [facility] Address: [address] [place] [address] Result Comment: Unab le to Report. Performed By: #### 5 7021-8 ####[facility] LABCLIA [id number] [place] [address] [place] Platelets (Bld) [#/Vol] 16 10*3/uL Low 150-400 [facility] Comment on above: Order Comment: Speci men Type: BLOOD SPECIMENOrdering Facility: [facility] Address: [address] [place] [address] Result Comment: No c lot detected.Results checked and verified. Performed By: #### 5 7021-8 ####[facility] LABCLIA [id number] [place] [address] [place] Platelets Estimate (Bld) [#/Vol] Decreased Normal [facility] Comment on above: Order Comment: Speci men Type: BLOOD SPECIMENOrdering Facility: [facility] Address: [address] [place] [address] Performed By: #### 5 7021-8 ####[facility] LABCLIA [id number] [place] [address] [place] Polychromasia LM Ql (Bld) Slight Normal [facility] Comment on above: Order Comment: Speci men Type: BLOOD SPECIMENOrdering Facility: [facility] Address: [address] [place] [address] Performed By: #### 5 7021-8 ####[facility] LABCLIA [id number] [place] [address] [place] RBC (Bld) [#/Vol] 2.12 10*6/uL Low 3.90-5.20 [facility] Comment on above: Order Comment: Speci men Type: BLOOD SPECIMENOrdering Facility: [facility] Address: [address] Performed By: #### 5 7021-8 ####[facility] LABCLIA [id number] [place] [address] [place] RBC FRAGMENTS Few Abnormal None Seen [facility] Comment on above: Order Comment: Speci men Type: BLOOD SPECIMENOrdering Facility: [facility] Address: [address] [place], [place] [address] Performed By: #### 5 7021-8 ####[facility] LABCLIA [id number] [place] [address] [place] RED CELL MORPH Reviewed: see result s of individual morphologies Normal [facility] Comment on above: Order Comment: Speci men Type: BLOOD SPECIMENOrdering Facility: [facility] Address: [address] [place] [address] Performed By: #### 5 7021-8 ####[facility] LABCLIA [id number] [place] [address] [place] WBC (Bld) [#/Vol] 1.67 10*3/uL Low 3.70-11.00 [facility] Comment on above: Order Comment: Speci men Type: BLOOD SPECIMENOrdering Facility: [facility] Address: [address] [place], [place] [address] Result Comment: No c lot detected. Performed By: #### 5 7021-8 ####[facility] LABCLIA [id number] [address] [place] WBC Left Shift Ql (Bld) Present Normal [facility] Comment on above: Order Comment: Speci men Type: BLOOD SPECIMENOrdering Facility: [facility] Address: [address] [place], [place] [address] Performed By: #### 5 7021-8 ####[facility] LABCLIA [id number] [place] [address] [place] CNCOon 05-30-2023 CNCO Letter Text Normal [facility] CONSULT PROGon 05-30-2023 CONSULT PROG Normal [facility] Comprehensive metabolic 2000 panelon 05-30-2023 Albumin [Mass/Vol] 3.5 g/dL Low 3.9-4.9 [facility] Comment on above: Order Comment: Speci men Type: BLOOD SPECIMENOrdering Facility: [facility] Address: [address] [place], [place] [address] Performed By: #### 1 9123-9, 3084-1, 73692-1, 7- ####[facility] LABIA [id number] [place] [address] [place] ALP [Catalytic activity/Vol] 54 U/L Normal 34-123 [facility] Comment on above: Order Comment: Speci men Type: BLOOD SPECIMENOrdering Facility: [facility] Address: [address] [place], [place] [address] Performed By: #### 1 9123-9, 3084-1, 44936-0, 2776- ####[facility] LABIA [id number] [place] [address] [place] ALT [Catalytic activity/Vol] 18 U/L Normal 7-38 [facility] Comment on above: Order Comment: Speci men Type: BLOOD SPECIMENOrdering Facility: [facility] Address: [address] [place] [address] Performed By: #### 1 9123-9, 3084-1, 44309-2, 2776- ####[facility] LABIA [id number] [place] [address] [place] Anion gap [Moles/Vol] 9 mmol/L Normal 9-18 [facility] Comment on above: Order Comment: Speci men Type: BLOOD SPECIMENOrdering Facility: [facility] Address: [address] [place], [place] [address] Performed By: #### 1 9123-9, 3084-1, 77027-6, 2776-09 ####[facility] LABCLIA [id number] [place] [address] [place] AST [Catalytic activity/Vol] 17 U/L Normal 13-35 [facility] Comment on above: Order Comment: Speci men Type: BLOOD SPECIMENOrdering Facility: [facility] Address: [address] [place] [address] Performed By: #### 1 9123-9, 3083-, 23774-3, 2776- ####[facility] LABIA [id number] [place] [address] [place] Bilirubin [Mass/Vol] 0.4 mg/dL Normal 0.2-1.3 [facility] Comment on above: Order Comment: Speci men Type: BLOOD SPECIMENOrdering Facility: [facility] Address: [address] [place] [address] Performed By: #### 1 9123-9, 3083-09, 23477-2, 2776-09 ####[facility] [id number] [place] [address] [place] Calcium [Mass/Vol] 8.7 mg/dL Normal 8.5-10.2 [facility] Comment on above: Order Comment: Speci men Type: BLOOD SPECIMENOrdering Facility: [facility] Address: [address] [place] [address] Performed By: #### 1 9123-9, 3083-09, 80582-9, 2776-09 ####[facility] LABIA [id number] [place] [address] [place] Chloride [Moles/Vol] 107 mmol/L High 97-105 [facility] Comment on above: Order Comment: Speci men Type: BLOOD SPECIMENOrdering Facility: [facility] Address: [address] [place] [address] Performed By: #### 1 9123-9, 3084-1, 94628-2, 2776-09 ####[facility] LABCLIA [id number] [place] [address] [place] CO2 [Moles/Vol] 25 mmol/L Normal 22-30 [facility] Comment on above: Order Comment: Speci men Type: BLOOD SPECIMENOrdering Facility: [facility] Address: [address] [place] [address] Performed By: #### 1 9123-9, 3083-, 45262-3, 2776- ####[facility] LABIA [id number] [place] [address] [place] Creatinine [Mass/Vol] 0.93 mg/dL Normal 0.58-0.96 [facility] Comment on above: Order Comment: Speci men Type: BLOOD SPECIMENOrdering Facility: [facility] Address: [address] [place] [address] Performed By: #### 1 9123-9, 3083-, 52650-5, 2776-09 ####[facility] LABIA [id number] [address] [place] Creatinine and Glomerular filtration rate.predicted panel (S/P/Bld) 67 mL/min/1.73m??? Normal >=60 [facility] Comment on above: Order Comment: Speci men Type: BLOOD SPECIMENOrdering Facility: [facility] Address: [address] [place] [address] Result Comment: Berenice mated Glomerular Filtration Rate [...] GFR. Performed By: #### 1 9123-9, 4-1, 90186-0, 2776- ####[facility] LABCLIA [id number] [place] [address] [place] Glucose [Mass/Vol] 119 mg/dL High 74-99 [facility] Comment on above: Order Comment: Rochellei men Type: BLOOD SPECIMENOrdering Facility: [facility] Address: [address] [place] [address] Result Comment: [place] [...] 1). Performed By: #### 1 9123-9, 3084-1, 15891-0, 2777-1 ####[facility] LABIA [id number] [place] [address] [place] Potassium [Moles/Vol] 3.9 mmol/L Normal 3.7-5.1 [facility] Comment on above: Order Comment: Speci men Type: BLOOD SPECIMENOrdering Facility: [facility] Address: [address] [place] [address] Performed By: #### 1 9123-9, 3084-1, 21119-6, 2777-1 ####[facility] LABIA [id number] [place] [address] [place] Protein [Mass/Vol] 5.7 g/dL Low 6.3-8.0 [facility] Comment on above: Order Comment: Speci men Type: BLOOD SPECIMENOrdering Facility: [facility] Address: [address] [place] [address] Performed By: #### 1 9123-9, 3084-1, 28535-3, 2776- ####[facility] LABCLIA [id number] [place] [id number] [place] Sodium [Moles/Vol] 141 mmol/L Normal 136-144 [facility] Comment on above: Order Comment: Speci men Type: BLOOD SPECIMENOrdering Facility: [facility] Address: [address] [id number] Performed By: #### 1 9123-9, 3084-1, 31609-3, 2776- ####[facility] LABCLIA [id number] [place] [address] [place] Urea nitrogen [Mass/Vol] 15 mg/dL Normal 7-21 [facility] Comment on above: Order Comment: Speci men Type: BLOOD SPECIMENOrdering Facility: [facility] Address: [place] [address] Performed By: #### 1 9123-9, 3084-1, 96318-2, 2776- ####[facility] LABCLIA [id number] [place] [id number] [place] MEDICAL EMERon 05-30-2023 MEDICAL RUFUS Normal [facility] Magnesium SerPl-mCncon 05-30 Magnesium [Mass/Vol] 2.1 mg/dL Normal 1.7-2.3 [facility] Comment on above: Order Comment: Speci men Type: BLOOD SPECIMENOrdering Facility: [facility] Address: [address] [place] [address] Performed By: #### 1 9123-9, 3084-1, 14151-9, 277- ####[facility] LABCLIA [id number] [address] [address] [place] NUTRITIONon 05-30-2023 NUTRITION Normal [facility] PT EDon 05-30-2023 PT ED Normal [facility] Phosphate SerPl-mCncon 05-30 Phosphate [Mass/Vol] 4.0 mg/dL Normal 2.7-4.8 [facility] Comment on above: Order Comment: Speci men Type: BLOOD SPECIMENOrdering Facility: [facility] Address: [address] [place] [address] Performed By: #### 1 9123-9, 3084-1, 61637-5, 2777-1 ####[facility] LABCLIA [id number] [address] [place] SOCIAL WORKon 05-30-2023 SOCIAL WORK Normal [facility] SOCIAL WORK Normal [facility] Urate [facility] 3 Urate [Mass/Vol] 2.2 mg/dL Low 2.5-6.6 [facility] Comment on above: Order Comment: Speci men Type: BLOOD SPECIMENOrdering Facility: [facility] Address: [address] [place] [address] Performed By: #### 1 9123-9, 3084-1, 26029-5, 2777-1 ####[facility] LABIA [id number] [place] [address] [place] BMT REC INIT W/Uon 3 ALLOGEN RESULTS TO FOLLOW See Allogen report to follow Normal [facility] Comment on above: Order Comment: Speci men Type: BLOOD SPECIMENOrdering Facility: [facility] Address: [address] [place] [address] Performed By: #### B MTRIW ####[facility] LABIA [id number] [address] [place] BRIEF OP NOTon 05-29-2023 BRIEF OP NOT Normal [facility] CASE MGT INIT ASSESon 2022 CASE MGT INIT ASSES Normal [facility] CBC W Auto Differential pane l (Bld)on 05-29-2023 Anisocytosis Ql (Bld) Present Normal [facility] Comment on above: Order Comment: Speci men Type: BLOOD SPECIMENOrdering Facility: [facility] Address: [address] [place] [address] Performed By: #### 5 7021-8 ####[facility] LABCLIA [id number] [address] [place] Basophils (Bld) [#/Vol] 0.00 10*3/uL Normal <0.11 [facility] Comment on above: Order Comment: Speci men Type: BLOOD SPECIMENOrdering Facility: [facility] Address: [address] Performed By: #### 5 7021-8 ####[facility] LABCLIA [id number] [address] [place] Basophils/100 WBC (Bld) 0.0 % Normal [facility] Comment on above: Order Comment: Speci men Type: BLOOD SPECIMENOrdering Facility: [facility] Address: [address] Performed By: #### 5 7021-8 ####[facility] LABCLIA [id number] [address] [place] BLAST% 4.9 % High <=0.0 [facility] Comment on above: Order Comment: Speci men Type: BLOOD SPECIMENOrdering Facility: [facility] Address: [address] Performed By: #### 5 7021-8 ####[facility] LABCLIA [id number] [place] [address] [place] Dacrocytes LM Ql (Bld) Few Normal [facility] Comment on above: Order Comment: Speci men Type: BLOOD SPECIMENOrdering Facility: [facility] Address: [address] Performed By: #### 5 7021-8 ####[facility] LABCLIA [id number] [place] [address] [place] Differential cell count method Nom (Bld) Manual Normal [facility] Comment on above: Order Comment: Speci men Type: BLOOD SPECIMENOrdering Facility: [facility] Address: [address] [place] [address] Performed By: #### 5 7021-8 ####[facility] LABCLIA [id number] [place] [address] [place] Eosinophils (Bld) [#/Vol] 0.03 10*3/uL Normal <0.46 [facility] Comment on above: Order Comment: Speci men Type: BLOOD SPECIMENOrdering Facility: [facility] Address: [address] [place] [address] Performed By: #### 5 7021-8 ####[facility] LABCLIA [id number] [place] [address] [place] Eosinophils/100 WBC (Bld) 2.2 % Normal [facility] Comment on above: Order Comment: Speci men Type: BLOOD SPECIMENOrdering Facility: [facility] Address: [address] [place] [address] Performed By: #### 5 7021-8 ####[facility] LABCLIA [id number] [place] [address] [place] Erythrocyte distribution width (RBC) [Ratio] 18.3 % High 11.5-15.0 [facility] Comment on above: Order Comment: Speci men Type: BLOOD SPECIMENOrdering Facility: [facility] Address: [address] [place], [place] [id number] Performed By: #### 5 7021-8 ####[facility] LABCLIA [id number] [place] [address] [place] Hematocrit (Bld) [Volume fraction] 18.6 % Low 36.0-46.0 [facility] Comment on above: Order Comment: Speci men Type: BLOOD SPECIMENOrdering Facility: [facility] Address: [address] Performed By: #### 5 7021-8 ####[facility] LABCLIA [id number] [place] [address] [place] Hemoglobin (Bld) [Mass/Vol] 6.6 g/dL Low 11.5-15.5 [facility] Comment on above: Order Comment: Speci men Type: BLOOD SPECIMENOrdering Facility: [facility] Address: [address] Performed By: #### 5 7021-8 ####[facility] LABCLIA [id number] [place] [address] [place] Lymphocytes (Bld) [#/Vol] 1.08 10*3/uL Normal 1.00-4.00 [facility] Comment on above: Order Comment: Speci men Type: BLOOD SPECIMENOrdering Facility: [facility] Address: [address] [place], [place] [address] Performed By: #### 5 7021-8 ####[facility] LABCLIA [id number] [place] [address] [place] Lymphocytes/100 WBC (Bld) 75.2 % Normal [facility] Comment on above: Order Comment: Speci men Type: BLOOD SPECIMENOrdering Facility: [facility] Address: [address] [place] [address] Performed By: #### 5 7021-8 ####[facility] LABCLIA [id number] [place] [address] [place] MCH (RBC) [Entitic mass] 35.1 pg High 26.0-34.0 [facility] Comment on above: Order Comment: Speci men Type: BLOOD SPECIMENOrdering Facility: [facility] Address: [address] Performed By: #### 5 7021-8 ####[facility] LABCLIA [id number] [place] [address] [place] MCHC (RBC) [Mass/Vol] 35.5 g/dL Normal 30.5-36.0 [facility] Comment on above: Order Comment: Speci men Type: BLOOD SPECIMENOrdering Facility: [facility] Address: [address] [place] [address] Performed By: #### 5 7021-8 ####[facility] LABCLIA [id number] [place] [address] [place] MCV (RBC) [Entitic vol] 98.9 fL Normal 80.0-100.0 [facility] Comment on above: Order Comment: Speci men Type: BLOOD SPECIMENOrdering Facility: [facility] Address: [address] [place] [address] Performed By: #### 5 7021-8 ####[facility] LABIA [id number] [place] [address] [place] Monocytes (Bld) [#/Vol] 0.01 10*3/uL Normal <0.87 [facility] Comment on above: Order Comment: Speci men Type: BLOOD SPECIMENOrdering Facility: [facility] Address: [address] [place] [address] Performed By: #### 5 7021-8 ####[facility] LABCLIA [id number] [address] [place] Monocytes/100 WBC (Bld) 0.4 % Normal [facility] Comment on above: Order Comment: Speci men Type: BLOOD SPECIMENOrdering Facility: [facility] Address: [address] [place], [place] [address] Performed By: #### 5 7021-8 ####[facility] LABCLIA [id number] [place] [address] [place] MYELO% 0.4 % Normal [facility] Comment on above: Order Comment: Speci men Type: BLOOD SPECIMENOrdering Facility: [facility] Address: [address] [place] [address] Performed By: #### 5 7021-8 ####[facility] LABCLIA [id number] [place] [address] [place] Neutrophils (Bld) [#/Vol] 0.24 10*3/uL Low 1.45-7.50 [facility] Comment on above: Order Comment: Speci men Type: BLOOD SPECIMENOrdering Facility: [facility] Address: [address] [place] [address] Performed By: #### 5 7021-8 ####[facility] LABCLIA [id number] [place] [address] [place] Neutrophils/100 WBC (Bld) 16.9 % Normal [facility] Comment on above: Order Comment: Speci men Type: BLOOD SPECIMENOrdering Facility: [facility] Address: [address] Performed By: #### 5 7021-8 ####[facility] LABCLIA [id number] [place] [address] [place] Nucleated RBC (Bld) [#/Vol] 0.02 10*3/uL High <0.01 [facility] Comment on above: Order Comment: Speci men Type: BLOOD SPECIMENOrdering Facility: [facility] Address: [address] Performed By: #### 5 7021-8 ####[facility] LABCLIA [id number] [place] [address] [place] Nucleated RBC/100 WBC (Bld) [Ratio] 1.3 /100 WBC Normal [facility] Comment on above: Order Comment: Speci men Type: BLOOD SPECIMENOrdering Facility: [facility] Address: [address] [place], [place] [address] Performed By: #### 5 7021-8 ####[facility] LABCLIA [id number] [place] [address] [place] Ovalocytes LM Ql (Bld) Few Normal [facility] Comment on above: Order Comment: Speci men Type: BLOOD SPECIMENOrdering Facility: [facility] Address: [address] [place] [address] Performed By: #### 5 7021-8 ####[facility] LABCLIA [id number] [place] [address] [place] Platelet mean volume (Bld) [Entitic vol] Normal [facility] Comment on above: Order Comment: Speci men Type: BLOOD SPECIMENOrdering Facility: [facility] Address: [address] [place] [address] Result Comment: Unab le to Report. Performed By: #### 5 7021-8 ####[facility] LABIA [id number] [place] [address] [place] Platelets (Bld) [#/Vol] 14 10*3/uL Low 150-400 [facility] Comment on above: Order Comment: Speci men Type: BLOOD SPECIMENOrdering Facility: [facility] Address: [address] [place] [address] Result Comment: Resu lts checked and verified.No clot detected. Performed By: #### 5 7021-8 ####[facility] LABCLIA [id number] [place] [address] [place] Platelets Estimate (Bld) [#/Vol] Decreased Normal [facility] Comment on above: Order Comment: Speci men Type: BLOOD SPECIMENOrdering Facility: [facility] Address: [address] [place] [address] Performed By: #### 5 7021-8 ####[facility] LABCLIA [id number] [place] [address] [place] Polychromasia LM Ql (Bld) Slight Normal [facility] Comment on above: Order Comment: Speci men Type: BLOOD SPECIMENOrdering Facility: [facility] Address: [address] Performed By: #### 5 7021-8 ####[facility] LABCLIA [id number] [place] [address] [place] RBC (Bld) [#/Vol] 1.88 10*6/uL Low 3.90-5.20 [facility] Comment on above: Order Comment: Speci men Type: BLOOD SPECIMENOrdering Facility: [facility] Address: [address] [place], [place] [address] Performed By: #### 5 7021-8 ####[facility] LABCLIA [id number] [place] [address] [place] RBC FRAGMENTS Few Abnormal None Seen [facility] Comment on above: Order Comment: Speci men Type: BLOOD SPECIMENOrdering Facility: [facility] Address: [address] [place] [address] Performed By: #### 5 7021-8 ####[facility] LABCLIA [id number] [address] [place] [facility] Reviewed: see result s of individual morphologies Normal [facility] Comment on above: Order Comment: Speci men Type: BLOOD SPECIMENOrdering Facility: [facility] Address: [address] Performed By: #### 5 7021-8 ####[facility] LABCLIA [id number] [place] [address] [place] WBC (Bld) [#/Vol] 1.43 10*3/uL Low 3.70-11.00 [facility] Comment on above: Order Comment: Speci men Type: BLOOD SPECIMENOrdering Facility: [facility] Address: [address] [place], [place] [address] Result Comment: No c lot detected. Performed By: #### 5 7021-8 ####[facility] LABCLIA [id number] [place] [address] [place] WBC Left Shift Ql (Bld) Present Normal [facility] Comment on above: Order Comment: Speci men Type: BLOOD SPECIMENOrdering Facility: [facility] Address: [address] [place] [address] Performed By: #### 5 7021-8 ####[facility] LABCLIA [id number] [place] [address] [place] CMV IgG Qnon 05-29-2023 CMV IGG QUAL Negative Normal Negative [facility] Comment on above: Order Comment: Speci men Type: BLOOD SPECIMENOrdering Facility: [facility] Address: [address] [place] [address] Result Comment: No s erological evidence of past exposure to Cytomegalovirus. Cannot exclude recent infection if the specimen collected within 4-6 weeks after infection. Performed By: #### 7 852-7 ####[facility] LABCLIA [id number] [place] [address] [place] CMV IgG SerPl-aCncon 023 CMV IgG Qn 0.24 U/mL Normal [facility] Comment on above: Order Comment: Speci men Type: BLOOD SPECIMENOrdering Facility: [facility] Address: [address] [place] [address] Result Comment: The magnitude of the measured result is not indicative of the amount of antibody present.U/mL values are interpreted as follows:Negative <0.6Equivocal 0.6 to <0.70Positive >=0.70 Performed By: #### 7 852-7 ####[facility] LABCLIA [id number] [place] [address] [place] CONSULTon 05-29-2023 CONSULT Normal [facility] Comprehensive metabolic 2000 panelon 05-29-2023 Albumin [Mass/Vol] 3.5 g/dL Low 3.9-4.9 [facility] Comment on above: Order Comment: Speci men Type: BLOOD SPECIMENOrdering Facility: [facility] Address: [address] Performed By: #### 2 4323-8 ####[facility] LABCLIA [id number] [place] [address] [place] ALP [Catalytic activity/Vol] 50 U/L Normal 34-123 [facility] Comment on above: Order Comment: Speci men Type: BLOOD SPECIMENOrdering Facility: [facility] Address: [address] Performed By: #### 2 4323-8 ####[facility] LABCLIA [id number] [place] [address] [place] ALT [Catalytic activity/Vol] 11 U/L Normal 7-38 [facility] Comment on above: Order Comment: Speci men Type: BLOOD SPECIMENOrdering Facility: [facility] Address: [address] Performed By: #### 2 4323-8 ####[facility] LABCLIA [id number] [place] [address] [place] Anion gap [Moles/Vol] 10 mmol/L Normal 9-18 [facility] Comment on above: Order Comment: Speci men Type: BLOOD SPECIMENOrdering Facility: [facility] Address: [address] Performed By: #### 2 4323-8 ####[facility] LABCLIA [id number] [place] [address] [place] AST [Catalytic activity/Vol] 12 U/L Low 13-35 [facility] Comment on above: Order Comment: Speci men Type: BLOOD SPECIMENOrdering Facility: [facility] Address: [address] Performed By: #### 2 4323-8 ####[facility] LABCLIA [id number] [place] [address] [place] Bilirubin [Mass/Vol] 0.4 mg/dL Normal 0.2-1.3 [facility] Comment on above: Order Comment: Speci men Type: BLOOD SPECIMENOrdering Facility: [facility] Address: [address] [place] [address] Performed By: #### 2 4323-8 ####[facility] LABCLIA [id number] [place] [address] [place] Calcium [Mass/Vol] 8.5 mg/dL Normal 8.5-10.2 [facility] Comment on above: Order Comment: Speci men Type: BLOOD SPECIMENOrdering Facility: [facility] Address: [address] [place] [address] Performed By: #### 2 4323-8 ####[facility] LABCLIA [id number] [place] [address] [place] Chloride [Moles/Vol] 107 mmol/L High 97-105 [facility] Comment on above: Order Comment: Speci men Type: BLOOD SPECIMENOrdering Facility: [facility] Address: [address] [place] [address] Performed By: #### 2 4323-8 ####[facility] LABCLIA [id number] [place] [address] [place] CO2 [Moles/Vol] 25 mmol/L Normal 22-30 [facility] Comment on above: Order Comment: Speci men Type: BLOOD SPECIMENOrdering Facility: [facility] Address: [address] [place] [address] Performed By: #### 2 4323-8 ####[facility] LABCLIA [id number] [place] [address] [place] Creatinine [Mass/Vol] 0.92 mg/dL Normal 0.58-0.96 [facility] Comment on above: Order Comment: Speci men Type: BLOOD SPECIMENOrdering Facility: [facility] Address: [address] [place] [id number] Performed By: #### 2 4323-8 ####[facility] LABCLIA [id number] [place] [address] [place] Creatinine and Glomerular filtration rate.predicted panel (S/P/Bld) 68 mL/min/1.73m??? Normal >=60 [facility] Comment on above: Order Comment: Elvia escobar Type: BLOOD SPECIMENOrdering Facility: [facility] Address: [address] [place] [address] Result Comment: Berenice mated Glomerular Filtration Rate [...] actual GFR. Performed By: #### 2 4323-8 ####[facility] LABCLIA [id number] [place] [address] [place] Glucose [Mass/Vol] 110 mg/dL High 74-99 [facility] Comment on above: Order Comment: Elvia escobar Type: BLOOD SPECIMENOrdering Facility: [facility] Address: [address] [place] [address] Result Comment: [place] [...] 2016.39(Suppl 1). Performed By: #### 2 4323-8 ####[facility] LABCLIA [id number] [place] [address] [place] Potassium [Moles/Vol] 3.9 mmol/L Normal 3.7-5.1 [facility] Comment on above: Order Comment: Speci men Type: BLOOD SPECIMENOrdering Facility: [facility] Address: [address] [place], [place] [address] Performed By: #### 2 4323-8 ####[facility] LABCLIA [id number] [place] [address] [place] Protein [Mass/Vol] 5.6 g/dL Low 6.3-8.0 [facility] Comment on above: Order Comment: Speci men Type: BLOOD SPECIMENOrdering Facility: [facility] Address: [address] [place] [address] Performed By: #### 2 4323-8 ####[facility] LABIA [id number] [place] [address] [place] Sodium [Moles/Vol] 142 mmol/L Normal 136-144 [facility] Comment on above: Order Comment: Speci men Type: BLOOD SPECIMENOrdering Facility: [facility] Address: [address] [place], [place] [address] Performed By: #### 2 4323-8 ####[facility] LABIA [id number] [place] [address] [place] Urea nitrogen [Mass/Vol] 16 mg/dL Normal 7-21 [facility] Comment on above: Order Comment: Speci men Type: BLOOD SPECIMENOrdering Facility: [facility] Address: [address] [place], [place] [address] Performed By: #### 2 4323-8 ####[facility] LABIA [id number] [place] [address] [place] IR CENTRAL LINE REMOVALon IR CENTRAL LINE REMOVAL Normal [facility] MEDICAL EMERon 05-29-2023 MEDICAL RUFUS Normal [facility] SOCIAL WORKon 05-29-2023 SOCIAL WORK Normal [facility] SURGICAL PATHOLOGYon 023 CASE REPORT Normal [facility] Comment on above: Order Comment: Speci men Type: TISSUE SPECIMENOrdering Facility: [facility] Address: [address] [place], [place] [address] Result Comment: Surg ical Pathology Report Case: [id number] Provider: Brandy Castro, Collected: 05/29/2023 03:21 PM MANUFACTURING PLANT MANAGER.CNPOrdering Location: [place] [address] Received: 05/29/2023 10:53 PMPathologist: Rosalia Gaytan MDSpecimen: HARDWARE Performed By: #### S ####[facility] LABCLIA [id number] [place] [address] [place] CLINICAL HISTORY infected port Normal [facility] Comment on above: Order Comment: Speci men Type: TISSUE SPECIMENOrdering Facility: [facility] Address: [address] [place] [address] Performed By: #### S ####[facility] LABCLIA [id number] [address] [place] FINAL DIAGNOSIS Normal [facility] Comment on above: Order Comment: Speci men Type: TISSUE SPECIMENOrdering Facility: [facility] Address: [address] [place] [address] Result Comment: A. S ite not specified, port removal:-Unremarkable port (gross diagnosis only).ME/JXM 05/30/2023 Performed By: #### S ####[facility] LABCLIA [id number] [place] [address] [place] FINAL PERFORMING LAB Normal [facility] Comment on above: Order Comment: Speci men Type: TISSUE SPECIMENOrdering Facility: [facility] Address: [address] [place] [address] Result Comment: Diag nostic interpretation performed at [facility] [place] [address] CLIA# [id number] Director: Borsi Wood M.D. Performed By: #### S ####[facility] LABCLIA [id number] [address] [place] GROSS DESCRIPTION A. HARDWARE Normal [facility] Comment on above: Order Comment: Speci men Type: TISSUE SPECIMENOrdering Facility: [facility] Address: [address] [place] [address] Result Comment: Rece ived fresh labeled hardware [...] for gross examination only.Gross examination performed at [facility] [address] [id number] 05/30/23 10:43 AM Performed By: #### S ####[facility] LABCLIA [id number] [address] [place] TYPE + SCREENon 05-29-2023 ABO O Normal [facility] Comment on above: Order Comment: Speci men Type: BLOOD SPECIMENOrdering Facility: [facility] Address: [address] [place] [address] Performed By: #### T SCR ####[facility] BLOOD BANKIA [id number] [place] [address] [place] HISTORICAL AB SCR STATUS Negative Normal [facility] Comment on above: Order Comment: Speci men Type: BLOOD SPECIMENOrdering Facility: [facility] Address: [address] [place] [address] Performed By: #### T SCR ####[facility] BLOOD BANKCLIA [id number] [address] Rh Nom (Bld) Positive Normal [facility] Comment on above: Order Comment: Speci men Type: BLOOD SPECIMENOrdering Facility: [facility] Address: [address] [place] [address] Performed By: #### T SCR ####[facility] BLOOD BANKCLIA [id number] [address] TYPE AND SCREEN EXPIRATION 06/01/2023 23:59 Normal [facility] Comment on above: Order Comment: Speci men Type: BLOOD SPECIMENOrdering Facility: [facility] Address: [address] [place] [address] Performed By: #### T SCR ####[facility] BLOOD BANKCLIA [id number] [address] [place] Bacteria Bld Culton 05-28-20 23 Bacteria identified Cx Nom (Bld) CULTURE, BLOOD: No growth 5 days Normal [facility] Comment on above: Performed By: #### 6 00-7 ####[facility] LABCLIA [id number] [address] Bacteria identified Cx Nom (Bld) CULTURE, BLOOD: No growth 5 days Normal [facility] Comment on above: Performed By: #### 6 00-7 ####[facility] LABCLIA [id number] [address] [place] CBC W Auto Differential pane l (Bld)on 05-28-2023 Anisocytosis Ql (Bld) Present Normal [facility] Comment on above: Order Comment: Speci men Type: BLOOD SPECIMENOrdering Facility: [facility] Address: [address] [place] [address] Performed By: #### 5 7021-8, [id number] ####[facility] LABCLIA [id number] [place] [address] [place] Basophils (Bld) [#/Vol] 0.00 10*3/uL Normal <0.11 [facility] Comment on above: Order Comment: Speci men Type: BLOOD SPECIMENOrdering Facility: [facility] Address: [address] [place] [address] Performed By: #### 5 7021-8, [id number] ####[facility] LABCLIA [id number] [place] [address] [place] Basophils/100 WBC (Bld) 0.0 % Normal [facility] Comment on above: Order Comment: Speci men Type: BLOOD SPECIMENOrdering Facility: [facility] Address: [address] [place] [address] Performed By: #### 5 7021-8, [id number] ####[facility] LABCLIA [id number] [place] [address] [place] BLAST% 7.0 % High <=0.0 [facility] Comment on above: Order Comment: Speci men Type: BLOOD SPECIMENOrdering Facility: [facility] Address: [address] [place] [address] Performed By: #### 5 7021-8, [id number] ####[facility] LABCLIA [id number] [place] [address] [place] Differential cell count method Nom (Bld) Manual Normal [facility] Comment on above: Order Comment: Speci men Type: BLOOD SPECIMENOrdering Facility: [facility] Address: [address] [place] [address] Performed By: #### 5 7021-8, [id number] ####[facility] LABCLIA [id number] [place] [address] [place] Eosinophils (Bld) [#/Vol] 0.03 10*3/uL Normal <0.46 [facility] Comment on above: Order Comment: Speci men Type: BLOOD SPECIMENOrdering Facility: [facility] Address: [address] [place] [address] Performed By: #### 5 7021-8, [id number] ####[facility] LABCLIA [id number] [place] [address] [place] Eosinophils/100 WBC (Bld) 2.0 % Normal [facility] Comment on above: Order Comment: Speci men Type: BLOOD SPECIMENOrdering Facility: [facility] Address: [address] [place] [address] Performed By: #### 5 7021-8, [id number] ####[facility] LABCLIA [id number] [place] [address] [place] Erythrocyte distribution width (RBC) [Ratio] 18.3 % High 11.5-15.0 [facility] Comment on above: Order Comment: Speci men Type: BLOOD SPECIMENOrdering Facility: [facility] Address: [address] [place] [address] Performed By: #### 5 7021-8, [id number] ####[facility] LABCLIA [id number] [place] [address] [place] Hematocrit (Bld) [Volume fraction] 21.7 % Low 36.0-46.0 [facility] Comment on above: Order Comment: Speci men Type: BLOOD SPECIMENOrdering Facility: [facility] Address: [address] Performed By: #### 5 7021-8, [id number] ####[facility] LABCLIA [id number] [place] [address] [place] Hemoglobin (Bld) [Mass/Vol] 7.5 g/dL Low 11.5-15.5 [facility] Comment on above: Order Comment: Speci men Type: BLOOD SPECIMENOrdering Facility: [facility] Address: [address] [place], [place] [address] Performed By: #### 5 7021-8, [id number] ####[facility] LABCLIA [id number] [place] [address] [place] HYPOGRANULATED PMNS Present Normal [facility] Comment on above: Order Comment: Speci men Type: BLOOD SPECIMENOrdering Facility: [facility] Address: [address] [place] [address] Performed By: #### 5 7021-8, [id number] ####[facility] LABCLIA [id number] [place] [address] [place] Lymphocytes (Bld) [#/Vol] 0.94 10*3/uL Low 1.00-4.00 [facility] Comment on above: Order Comment: Speci men Type: BLOOD SPECIMENOrdering Facility: [facility] Address: [address] Performed By: #### 5 7021-8, [id number] ####[facility] LABIA [id number] [place] [address] [place] Lymphocytes/100 WBC (Bld) 62.0 % Normal [facility] Comment on above: Order Comment: Speci men Type: BLOOD SPECIMENOrdering Facility: [facility] Address: [address] [place] [address] Performed By: #### 5 7021-8, [id number] ####[facility] LABCLIA [id number] [place] [address] [place] MCH (RBC) [Entitic mass] 34.9 pg High 26.0-34.0 [facility] Comment on above: Order Comment: Speci men Type: BLOOD SPECIMENOrdering Facility: [facility] Address: [address] Performed By: #### 5 7021-8, [id number] ####[facility] LABCLIA [id number] [place] MCHC (RBC) [Mass/Vol] 34.6 g/dL Normal 30.5-36.0 [facility] Comment on above: Order Comment: Speci men Type: BLOOD SPECIMENOrdering Facility: [facility] Address: [address] [place] [address] Performed By: #### 5 7021-8, [id number] ####[facility] LABCLIA [id number] [address] [place] MCV (RBC) [Entitic vol] 100.9 fL High 80.0-100.0 [facility] Comment on above: Order Comment: Speci men Type: BLOOD SPECIMENOrdering Facility: [facility] Address: [address] [place] [address] Performed By: #### 5 7021-8, [id number] ####[facility] LABCLIA [id number] [place] [address] [place] Monocytes (Bld) [#/Vol] 0.03 10*3/uL Normal <0.87 [facility] Comment on above: Order Comment: Speci men Type: BLOOD SPECIMENOrdering Facility: [facility] Address: [address] [place], [place] [address] Performed By: #### 5 7021-8, [id number] ####[facility] LABCLIA [id number] [place] [address] [place] Monocytes/100 WBC (Bld) 2.0 % Normal [facility] Comment on above: Order Comment: Speci men Type: BLOOD SPECIMENOrdering Facility: [facility] Address: [address] [place], [place] [address] Performed By: #### 5 7021-8, [id number] ####[facility] LABCLIA [id number] [place] [address] [place] Neutrophils (Bld) [#/Vol] 0.41 10*3/uL Low 1.45-7.50 [facility] Comment on above: Order Comment: Speci men Type: BLOOD SPECIMENOrdering Facility: [facility] Address: [address] [place] [address] Performed By: #### 5 7021-8, [id number] ####[facility] LABCLIA [id number] [place] [address] [place] Neutrophils/100 WBC (Bld) 27.0 % Normal [facility] Comment on above: Order Comment: Speci men Type: BLOOD SPECIMENOrdering Facility: [facility] Address: [address] [place] [address] Performed By: #### 5 7021-8, [id number] ####[facility] LABCLIA [id number] [place] [address] [place] Nucleated RBC (Bld) [#/Vol] 0.02 10*3/uL High <0.01 [facility] Comment on above: Order Comment: Speci men Type: BLOOD SPECIMENOrdering Facility: [facility] Address: [address] [place] [address] Performed By: #### 5 7021-8, [id number] ####[facility] LABCLIA [id number] [place] [address] [place] Nucleated RBC/100 WBC (Bld) [Ratio] 1.0 /100 WBC Normal [facility] Comment on above: Order Comment: Speci men Type: BLOOD SPECIMENOrdering Facility: [facility] Address: [address] Performed By: #### 5 7021-8, [id number] ####[facility] LABCLIA [id number] [place] [address] [place] Ovalocytes LM Ql (Bld) Few Normal [facility] Comment on above: Order Comment: Speci men Type: BLOOD SPECIMENOrdering Facility: [facility] Address: [address] [place] [address] Performed By: #### 5 7021-8, [id number] ####[facility] LABCLIA [id number] [place] [address] [place] Platelet mean volume (Bld) [Entitic vol] Normal [facility] Comment on above: Order Comment: Speci men Type: BLOOD SPECIMENOrdering Facility: [facility] Address: [address] [place], [place] [address] Result Comment: Unab le to Report. Performed By: #### 5 7021-8, [id number] ####[facility] LABCLIA [id number] [place] [address] [place] Platelets (Bld) [#/Vol] 17 10*3/uL Low 150-400 [facility] Comment on above: Order Comment: Speci men Type: BLOOD SPECIMENOrdering Facility: [facility] Address: [address] [place] [address] Result Comment: Resu lts checked and verified.No clot detected. Performed By: #### 5 7021-8, [id number] ####[facility] LABCLIA [id number] [place] [address] [place] Platelets Estimate (Bld) [#/Vol] Decreased Normal [facility] Comment on above: Order Comment: Speci men Type: BLOOD SPECIMENOrdering Facility: [facility] Address: [address] [place] [address] Performed By: #### 5 7021-8, [id number] ####[facility] LABCLIA [id number] [place] [address] [place] Polychromasia LM Ql (Bld) Slight Normal [facility] Comment on above: Order Comment: Speci men Type: BLOOD SPECIMENOrdering Facility: [facility] Address: [address] Performed By: #### 5 7021-8, [id number] ####[facility] LABCLIA [id number] [place] [address] [place] RBC (Bld) [#/Vol] 2.15 10*6/uL Low 3.90-5.20 [facility] Comment on above: Order Comment: Speci men Type: BLOOD SPECIMENOrdering Facility: [facility] Address: [address] [place] [address] Performed By: #### 5 7021-8, [id number] ####[facility] LABCLIA [id number] [place] [address] [place] RBC FRAGMENTS Few Abnormal None Seen [facility] Comment on above: Order Comment: Speci men Type: BLOOD SPECIMENOrdering Facility: [facility] Address: [address] [place] [address] Performed By: #### 5 7021-8, [id number] ####[facility] LABCLIA [id number] [place] [address] [place] RED CELL MORPH Reviewed: see result s of individual morphologies Normal [facility] Comment on above: Order Comment: Speci men Type: BLOOD SPECIMENOrdering Facility: [facility] Address: [address] [place] [address] Performed By: #### 5 7021-8, [id number] ####[facility] LABCLIA [id number] [place] [address] [place] Target cells LM Ql (Bld) Few Normal [facility] Comment on above: Order Comment: Speci men Type: BLOOD SPECIMENOrdering Facility: [facility] Address: [address] [place] [address] Performed By: #### 5 7021-8, [id number] ####[facility] LABCLIA [id number] [place] [address] [place] WBC (Bld) [#/Vol] 1.52 10*3/uL Low 3.70-11.00 [facility] Comment on above: Order Comment: Speci men Type: BLOOD SPECIMENOrdering Facility: [facility] Address: [address] [place] [address] Performed By: #### 5 7021-8, [id number] ####[facility] LABCLIA [id number] [place] [address] [place] CNNURSEon 05-28-2023 CNNURSE Normal [facility] CNOVSPon 05-28-2023 CNOVSP Normal [facility] CONSULT PROGon 05-28-2023 CONSULT PROG Normal [facility] Comprehensive metabolic 2000 panelon 05-28-2023 Albumin [Mass/Vol] 4.1 g/dL Normal 3.9-4.9 [facility] Comment on above: Order Comment: Speci men Type: BLOOD SPECIMENOrdering Facility: [facility] Address: [address] [place] [address] Performed By: #### 2 4323-8 ####[facility] LABCLIA [id number] [place] [address] [place] ALP [Catalytic activity/Vol] 60 U/L Normal 34-123 [facility] Comment on above: Order Comment: Speci men Type: BLOOD SPECIMENOrdering Facility: [facility] Address: [address] [place] [address] Performed By: #### 2 4323-8 ####[facility] LABCLIA [id number] [place] [address] [place] ALT [Catalytic activity/Vol] 12 U/L Normal 7-38 [facility] Comment on above: Order Comment: Speci men Type: BLOOD SPECIMENOrdering Facility: [facility] Address: [address] [place], [place] [address] Performed By: #### 2 4323-8 ####[facility] LABCLIA [id number] [place] [address] [place] Anion gap [Moles/Vol] 10 mmol/L Normal 9-18 [facility] Comment on above: Order Comment: Speci men Type: BLOOD SPECIMENOrdering Facility: [facility] Address: [address] Performed By: #### 2 4323-8 ####[facility] LABCLIA [id number] [place] [address] [place] AST [Catalytic activity/Vol] 12 U/L Low 13-35 [facility] Comment on above: Order Comment: Speci men Type: BLOOD SPECIMENOrdering Facility: [facility] Address: [address] Performed By: #### 2 4323-8 ####[facility] LABIA [id number] [place] [address] [place] Bilirubin [Mass/Vol] 0.4 mg/dL Normal 0.2-1.3 [facility] Comment on above: Order Comment: Speci men Type: BLOOD SPECIMENOrdering Facility: [facility] Address: [address] Performed By: #### 2 4323-8 ####[facility] LABIA [id number] [place] [address] [place] Calcium [Mass/Vol] 9.0 mg/dL Normal 8.5-10.2 [facility] Comment on above: Order Comment: Speci men Type: BLOOD SPECIMENOrdering Facility: [facility] Address: [address] Performed By: #### 2 4323-8 ####[facility] LABCLIA [id number] [place] [address] [place] Chloride [Moles/Vol] 104 mmol/L Normal 97-105 [facility] Comment on above: Order Comment: Speci men Type: BLOOD SPECIMENOrdering Facility: [facility] Address: [address] Performed By: #### 2 4323-8 ####[facility] LABCLIA [id number] [place] [address] [place] CO2 [Moles/Vol] 24 mmol/L Normal 22-30 [facility] Comment on above: Order Comment: Speci men Type: BLOOD SPECIMENOrdering Facility: [facility] Address: [address] [place] [address] Performed By: #### 2 4323-8 ####[facility] LABCLIA [id number] [address] [place] Creatinine [Mass/Vol] 0.84 mg/dL Normal 0.58-0.96 [facility] Comment on above: Order Comment: Speci men Type: BLOOD SPECIMENOrdering Facility: [facility] Address: [address] [place] [address] Performed By: #### 2 4323-8 ####[facility] LABIA [id number] [address] STATES OF [facility] Creatinine and Glomerular filtration rate.predicted panel (S/P/Bld) 75 mL/min/1.73m??? Normal >=60 [facility] Comment on above: Order Comment: Speci men Type: BLOOD SPECIMENOrdering Facility: [facility] Address: [address] [place] [address] Result Comment: Berenice mated Glomerular Filtration Rate [...] actual GFR. Performed By: #### 2 4323-8 ####[facility] LABCLIA [id number] [place] [address] [place] Glucose [Mass/Vol] 130 mg/dL High 74-99 [facility] Comment on above: Order Comment: Speci men Type: BLOOD SPECIMENOrdering Facility: [facility] Address: [address] [place] [address] Result Comment: [place] [...] 2016.39(Suppl 1). Performed By: #### 2 4323-8 ####[facility] LABCLIA [id number] [place] [address] [place] Potassium [Moles/Vol] 3.7 mmol/L Normal 3.7-5.1 [facility] Comment on above: Order Comment: Speci men Type: BLOOD SPECIMENOrdering Facility: [facility] Address: [address] [place] [address] Performed By: #### 2 4323-8 ####[facility] LABCLIA [id number] [place] [address] [place] Protein [Mass/Vol] 6.4 g/dL Normal 6.3-8.0 [facility] Comment on above: Order Comment: Speci men Type: BLOOD SPECIMENOrdering Facility: [facility] Address: [address] [place] [address] Performed By: #### 2 4323-8 ####[facility] LABCLIA [id number] [place] [address] [place] Sodium [Moles/Vol] 138 mmol/L Normal 136-144 [facility] Comment on above: Order Comment: Speci men Type: BLOOD SPECIMENOrdering Facility: [facility] Address: [address] [place] [address] Performed By: #### 2 4323-8 ####[facility] LABCLIA [id number] [address] Urea nitrogen [Mass/Vol] 17 mg/dL Normal 7-21 [facility] Comment on above: Order Comment: Speci men Type: BLOOD SPECIMENOrdering Facility: [facility] Address: [address] [place] [address] Performed By: #### 2 4323-8 ####[facility] LABCLIA [id number] [address] ED NOTEon 05-28-2023 ED NOTE HNO ID: [id number] Author: Whit Herron RN Service: Emergency Medicine Author Type: Registered Nurse Type: ED Notes Filed: 05/28/2023 8:24 PM Note Text: Report Given to Daysi OLEARY Normal [facility] ED NOTE HNO ID: [id number] Author: Alyce James RN Service: Emergency Medicine Author Type: Registered Nurse Type: ED Notes Filed: 05/28/2023 7:08 PM Note Text: Report to Whit OLEARY Normal [facility] ED NOTE Normal [facility] ED NOTE Normal [facility] ED NOTE HNO ID: [id number] Author: Sam Andre RN Service: ? Author Type: Registered Nurse Type: ED Notes Filed: 05/28/2023 3:59 PM Note Text: Bed: E12-17 Expected date: 05/28/23 Expected time: Means of arrival: Comments: Normal [facility] ED PROV NOTEon 05-28-2023 ED PROV NOTE Normal [facility] HISTORY PHYSICALon HISTORY PHYSICAL Normal [facility] PATH INTERP CBCDIF (LAB REFL EX ORDER-NO BILL)on 05-28-2023 Burner Technician review Pino (Unsp spec) [Interp] Reviewed by Vikki Griffin M.D., Ph.D Normal [facility] Comment on above: Order Comment: Speci men Type: BLOOD SPECIMENOrdering Facility: [facility] Address: [address] [place] [address] Performed By: #### 5 7021-8, [id number] ####[facility] LABCLIA [id number] [place] [address] [place] STAFF REVIEW, CBCDIF Normal [facility] Comment on above: Order Comment: Speci men Type: BLOOD SPECIMENOrdering Facility: [facility] Address: [address] [place] [address] Result Comment: Macr ocytic anemia without hypersegmented PMNsLeukopenia with absolute neutropeniaThrombocytopeniaCirculating blasts, consistent with patient's known history diagnosis of AML. Performed By: #### 5 7021-8, [id number] ####[facility] LABCLIA [id number] [place] [address] [place] Lab Reportson 05-23-2023 Lab Reports [id number]#1.00CD:[address] [facility] Lab Reportson 05-22-2023 Lab Reports [id number]#1.00CD:[address] [facility] Operative Reporton Operative Report [id number]#1.00CD:[address] [facility] Outside [facility] Correspo ndenceon 05-22-2023 Outside [facility] Correspondence [id number]#1.00CD:[address] [facility] Physician Referralon 023 Physician Referral [id number]#1.00CD:[address] [facility] Surgical Pathologyon 023 Surgical Pathology [...] of possible hemorrhage. There is no necrosis. Bank Manager sections 1cs. tm Microscopic Description Microscopic examination performed. SURGICAL PATHOLOGY CONSULTATION Patient Name: PRINCESS WILKES [facility] Rec: [id number] Path Number: [id number] [facility] ANATOMIC PATHOLOGY [address] [place] [id number] [facility] Comment on above: Performed By: #### P PPVS #### [facility] [address] [id number] Plumbing Technician: Nghia Casas MD VL Extremity Venous Duplex L [facility] 06-14-2021 VL Extremity Venous Duplex Lower Left Preliminary Technologist Report Right comparison appeared normal Left lower extremity: There appeared to be no evidence of acute or chronic DVT, all vessels appeared compressible and patent. Results called to Deanna in [place] office at 4:00pm Patient Portal Concierge: Beau Rocha RVT Radiologist Report CLINICAL HISTORY: [...] Electronically Signed in Other Vendor System) Normal [facility] Vital Signs Date Time Vital Sign Value Performing Clinician Facility 06-25-2023 11:29-0400 Body temperature 97.7 [degF] Mike Hughes MD Work Phone: [facility] 06-25-2023 11:29-0400 Body weight 116.1 kg Mike Hughes MD Work Phone: [facility] 06-25-2023 11:29-0400 Diastolic blood pressure 54 mm[Hg] Mike Hughes MD Work Phone: [facility] 06-25-2023 11:29-0400 Heart rate 77 /min Mike Hughes MD Work Phone: [facility] 06-25-2023 11:29-0400 Respiratory rate 18 /min Mike Hughes MD Work Phone: [facility] 06-25-2023 11:29-0400 Systolic blood pressure 134 mm[Hg] Mike Hughes MD Work Phone: [facility] 06-25-2023 10:00-0400 Diastolic blood pressure 80 mm[Hg] Lj Liz MD Work Phone: [facility] 06-25-2023 10:00-0400 Heart rate 71 /min Lj Liz MD Work Phone: [facility] 06-25-2023 10:00-0400 Respiratory rate 16 /min Lj Liz MD Work Phone: [facility] 06-25-2023 10:00-0400 SaO2% (BldA) [Mass fraction] 97 % Lj Liz MD Work Phone: [facility] 06-25-2023 10:00-0400 Systolic blood pressure 153 mm[Hg] Lj Liz MD Work Phone: [facility] 06-25-2023 06:40-0400 Body temperature 97.7 [degF] Lj Liz MD Work Phone: [facility] 12-22-2022 15:00-0400 Diastolic blood pressure 88 mm[Hg] Martha Nazemi DO Work Phone: [facility] 12-22-2022 15:00-0400 Heart rate 62 /min Martha Nazemi DO Work Phone: [facility] 12-22-2022 15:00-0400 Respiratory rate 16 /min Martha Nazemi DO Work Phone: [facility] 12-22-2022 15:00-0400 SaO2% (BldA) [Mass fraction] 96 % Martha Nazemi DO Work Phone: [facility] 12-22-2022 15:00-0400 Systolic blood pressure 129 mm[Hg] Martha Nazemi DO Work Phone: [facility] 12-22-2022 14:32-0400 Body temperature 96.91 [degF] Martha Nazemi DO Work Phone: [facility] 12-22-2022 11:47-0400 Body height 166.4 cm Martha Nazemi DO Work Phone: [facility] 12-22-2022 11:47-0400 Body mass index (BMI) [Ratio] 43.43 kg/m2 Martha Nazemi DO Work Phone: [facility] 12-22-2022 11:47-0400 Body weight 120.2 kg Martha Nazemi DO Work Phone: [facility] Encounters Encounter Date Encounter Type Care Provider Facility Start: 10-12-2023 End: 10-13-2023 [facility] BETH KARI Facility:[facility] Start: 10-11-2023 Clinisync Result Encounter Generic External Data Provider [facility] External Department Unsolicited Start: 10-11-2023 Clinisync Result Encounter Generic External Data Provider [facility] External Department Unsolicited Start: 10-11-2023 End: 10-11-2023 ambulatory ANANDA MARIEE Facility: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); Pancytopenia (CMS/HCC); Immunocompromised (CMS/HCC); Gastroesophageal reflux disease, unspecified whether esophagitis present Start: 10-09-2023 ambulatory Mike valencia MD Work Phone: Hematology/Oncology Comment on above: [id number] Start: 10-08-2023 Telephone encounter Melissa puri MD Work Phone: [facility] Start: 09-20-2023 ambulatory MELISSA PIERCE Faci lity:[facility] Start: 09-07-2023 End: 09-08-2023 ambulatory MELISSA PIERCE Facility:[facility] Start: 09-06-2023 End: 09-06-2023 ambulatory MELISSA PIERCE Not Available Start: 08-31-2023 End: 09-01-2023 ambulatory MABELShelley PIERCE Facility:[facility] Start: 08-30-2023 End: 08-30-2023 ambulatory MABELZEHRA PIERCE Facility:[facility] Start: 08-30-2023 End: 08-30-2023 ambulatory MABELShelley PIERCE Facility:[facility] Start: 08-15-2023 Social Work Britany DRAKE W Work Phone: Hematology/Oncology Start: 08-13-2023 Telephone encounter Georgina armas RN Work Phone: Hematology/Oncology Comment on above: Appointment Start: 08-09-2023 Refill Mike valencia MD Work Phone: Hematology/Oncology Comment on above: Refill Request Consent Presentation (IRB [phone] [id number]) Start: 08-08-2023 Telephone encounter Georgina armas RN Work Phone: Hematology/Oncology Comment on above: Patient Education (T ransplant) (BMT Planning) 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) Start: 08-07-2023 Refill Mike valencia MD Work Phone: Hematology/Oncology Comment on above: Refill Request Transplant Info Biopsy Request Start: 07-30-2023 End: 07-30-2023 ambulatory [facility] Facility:[facility] Start: 07-30-2023 End: 07-30-2023 Follow-up encounter Mike Hughes MD Work Phone: Hematology/Oncology Comment on above: 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); Immunocompromised (HCC); Hospital discharge follow-up; Pancytopenia (HCC); Colitis Start: 07-30-2023 End: 07-30-2023 Telemedicine consultation with patient Mike Hughes MD Work Phone: [facility] Start: 07-18-2023 End: 07-18-2023 Evaluation and management of inpatient [facility] Facility:[facility] Start: 07-13-2023 End: 07-18-2023 Evaluation and management of inpatient ZAID HERNANDEZ Facility:[facility] Start: 07-06-2023 Telephone encounter Aurelia valerio RN Work Phone: Hematology/Oncology Start: 07-02-2023 End: 07-02-2023 ambulatory MIKE HUGHES Facility:[facility] Start: 07-02-2023 End: 07-02-2023 ambulatory Mike Hughes MD Work Phone: Hematology/Oncology Comment on above: 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); Immunocompromised (HCC); Pancytopenia (HCC) Start: 07-02-2023 End: 07-02-2023 Telemedicine consultation with patient Mike Hughes MD Work Phone: [facility] Start: 06-27-2023 Orders Only Mike valencia MD Work Phone: Hematology/Oncology Comment on above: 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) Start: 06-25-2023 End: 06-25-2023 Patient encounter procedure Mike Hughes MD Work Phone: [facility] Start: 06-25-2023 End: 06-25-2023 ambulatory Mike Hughes MD Work Phone: Hematology/Oncology Comment on above: 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); Pancytopenia (HCC); History of breast cancer; Immunocompromised (HCC) Start: 06-25-2023 End: 06-25-2023 Subsequent hospital visit by physician Lj Liz MD Work Phone: [facility] [phone] Comment on above: 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) [C92.00] Start: 06-22-2023 Telephone encounter Agustina Quevedo MS W Hematology/Oncology Comment on above: Patient Question Start: 06-14-2023 End: 06-14-2023 ambulatory [facility] Facility:[facility] Start: 06-14-2023 Telephone encounter Mary ramachandran [facility] Work Phone: [facility] Comment on above: Biopsy Request Start: 05-31-2023 Telephone encounter Chika uBrns atology/Oncology Start: 05-28-2023 End: 06-07-2023 Evaluation and management of inpatient [facility] Facility:[facility] Start: 05-28-2023 End: 05-29-2023 ambulatory Brianna Pham MD Work Phone: Hematology/Oncology Comment on above: 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); Infection due to Port-A-Cath, initial encounter Start: 05-28-2023 End: 05-28-2023 Patient encounter procedure Brianna Pham MD Work Phone: [facility] Start: 05-28-2023 End: 05-28-2023 Nursing evaluation of patient and report Aurelia Hines RN Work Phone: Hematology/Oncology Comment on above: 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) Start: 05-22-2023 ambulatory Facility:[facility] Start: 05-18-2023 ambulatory Facility:[facility] Start: 12-22-2022 End: 12-22-2022 [facility] Start: 12-22-2022 End: 12-22-2022 Subsequent hospital visit by physician Martha Malik DO Work Phone: [facility] Comment on above: Acute postoperative pain (Primary Dx); Lipoma of left forearm Start: 08-11-2021 End: 08-11-[address] MELISSA PIERCE Facility: Start: 06-14-2021 End: 06-15-2021 ambulatory MELISSA PIERCE Facility:[facility] Procedures Date Procedure Procedure Detail Performing Clinician Start: 10-11-2023 Antibody screen ANANDA MCKOY Comment on above: Order Comment: Speci men Type: BLOOD SPECIMEN Ordering Facility: [facility] Address: [address] [place] [address] Performed By: #### T [facility] #### [facility] BLOOD BANK [facility] [id number] [address] [place] [address] [place] Start: 10-11-2023 [facility] CBC W AUTO DIFF BLD Generic External Data Provider Start: 07-13-2023 Antibody screen MELISSA TEAGUE Comment on above: Order Comment: Speci men Type: BLOOD SPECIMENOrdering Facility: [facility] Address: [address] [place] [address] Performed By: #### T SCR ####[facility] BLOOD BANKCLIA [id number] [address] Start: 06-25-2023 FLOW CYTOMETRY FOR LEUKEMIA/LYMPHOMA (FCLL) PERFORMABLE Mike Hughes MD Work Phone: Start: 06-06-2023 Antibody screen MELISSA TEAGUE Comment on above: Order Comment: Speci men Type: BLOOD SPECIMENOrdering Facility: [facility] Address: [address] [place] [address] Performed By: #### T SCR ####[facility] BLOOD BANKCLIA [id number] [address] Start: 06-03-2023 Antibody screen MEILSSA TEAGUE Comment on above: Order Comment: Speci men Type: BLOOD SPECIMENOrdering Facility: [facility] Address: [address] [place], [place] [address] Performed By: #### T SCR, [facility], [id number] ####[facility] BLOOD BANKCLIA [id number] [address]#### [id number] ####[facility] LABCLIA [id number] [address] Start: 05-31-2023 Antibody screen MELISAS TEAGUE Comment on above: Order Comment: Speci men Type: BLOOD SPECIMENOrdering Facility: [facility] Address: [address] Performed By: #### T SCR ####[facility] BLOOD BANKCLIA [id number] [address] Start: 05-29-2023 Antibody screen MELISSA TEAGUE Comment on above: Order Comment: Speci men Type: BLOOD SPECIMENOrdering Facility: [facility] Address: [address] [place] [id number] Performed By: #### T SCR ####CC [facility] BLOOD BANKCLIA [id number] [address] OF [facility] Start: 05-02-2023 Lipid 1996 panel - S efra or Plasma Aurelia Hines RN Work Phone: Start: 02-26-2023 History of total hysterectomy Status post total hysterectomy Charity Page [employer] Work Phone: Start: 04-22-2019 Colonoscopy Charity Page [employer] Work Phone: Plan of Treatment Date Care Activity Detail Author Start: 05-22-2033 Urine microalbumin profile DTaP,Tdap,Td Vaccine (2 - Td or Tdap) [facility] Start: 04-22-2029 Screening for malign ant neoplasm of colon [facility] Start: 05-02-2028 Lipid 1996 panel - S efra or Plasma Lipid Screening [facility] Start: 05-02-2028 Lipid panel Lipid Screening [facility] Start: 07-18-2026 [facility] Start: 06-07-2026 [facility] Start: 05-31-2026 Diabetes Screening Diabetes Screenin [facility] Start: 05-28-2026 Diabetes Screening Diabetes Screenin [facility] Start: 12-07-2023 Medicare Annual Well ness (AWV) Medicare Annual Wellness (AWV) [facility] Start: 11-22-[address] [facility] Start: 11-22-2023 Screening for malign ant neoplasm of breast Mammogram Screening [facility] Start: 09-03-2023 Advance Directive Discussion Advance Directive Discussion [facility] Start: 08-28-2023 End: 11-27-2023 ACUTE LEUKEMIA NGS PANEL, BONE MARROW ACUTE LEUKEMIA NGS PANEL, BONE MARROW Lab Routine 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) Expected: 08/28/2023, Expires: 11/27/2023 [facility] Work Phone: Comment on above: Expected: 08/28/2023 , Expires: 11/27/2023 Start: 08-28-2023 End: 11-27-2023 BONE MARROW ANALYSIS BONE MARROW ANALYSIS Lab Routine 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) Expected: 08/28/2023, Expires: 11/27/2023 [facility] Work Phone: Comment on above: Expected: 08/28/2023 , Expires: 11/27/2023 Start: 08-28-2023 End: 11-27-2023 CBC W Auto Differential panel - Blood CBC + DIFF Lab Routine 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) Expected: 08/28/2023, Expires: 11/27/2023 [facility] Work Phone: Comment on above: Expected: 08/28/2023 , Expires: 11/27/2023 Start: 04-03-2023 Influenza vaccination Flu vacc ine (Season Ended) [facility] Start: 01-03-2023 End: 01-03-2023 Patient encounter procedure 01/03/2023 Office Visit General Surgery Martha Malik I, DO [address] [place] [address] [place] [phone] [facility] GENERAL SURGERY Part of [facility] Start: 12-22-2022 End: 12-22-2022 Exc b9 lesion mrgn xcp sk tg t/a/l 0.5 cm/< ARM LESION BIOPSY EXCISION Lipoma of left forearm 12/22/2022 1:52 PM EDT [facility] Start: 11-17-2022 Annual Wellness Visi t (AWV) Annual Wellness Visit (AWV) [facility] Start: 09-03-2022 Advance Directive Discussion Advance Directive Discussion [facility] Start: 01-13-2021 COVID-19 Vaccine (3 - Booster for Pfizer series) COVID-19 Vaccine (3 - Booster for Pfizer series) [facility] Start: 12-16-2020 Covid-19 Vaccine (3 - Pfizer risk series) Covid-19 Vaccine (3 - Pfizer risk series) [facility] Start: 03-07-2020 Screening for malign ant neoplasm of colon [facility] Start: 2018 Bone Density Screening Bone Density Screening [facility] Start: 2018 Screening for osteoporosis Bone Density Screening [facility] Start: 05-22-2016 Shingles vaccine (2 of 3) Shingles vaccine (2 of 3) [facility] Start: 05-22-2016 Shingrix Vaccine (1 of 2) Shingrix Vaccine (1 of 2) [facility] Start: 2013 RSV Vaccine (1 - 1-d ose 60+ series) RSV Vaccine (1 - 1-dose 60+ series) [facility] Start: 2008 Screening for osteoporosis DEXA (modify frequency per FRAX score) [facility] Start: 2003 Screening for malign ant neoplasm of breast Breast cancer screen [facility] Start: 1998 Cologuard (FIT-DNA) Cologuard (FIT-D NA) [facility] Start: 1998 Colonoscopy Colonoscopy [facility] Start: 1998 Colorectal Cancer Screening Colorectal Cancer Screening [facility] Start: [address] COLONOGRAPHY [facility] Start: 1998 Fecal Occult Blood Fecal Occult Bloo d [facility] Start: 1998 Screening for malign ant neoplasm of colon [facility] Start: 1998 SIGMOIDOSCOPY SIGMOIDOSCOPY [facility] Start: 1993 Lipid panel Lipids [employer] Start: 1988 Diabetes screen Diabetes screen [facility] [employer] Start: 1972 DTaP/Tdap/Td vaccine (1 - Tdap) DTaP/Tdap/Td vaccine (1 - Tdap) [facility] [employer] Start: 1971 Hepatitis C screening Hepatitis C sc reen [facility] [employer] Start: 1965 Depression Screen Depression Screen [facility] [employer] Start: 1953 Screening for malign ant neoplasm of colon [facility] AML MRD BY FC AML MRD BY FC La b Routine 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) 06/25/2023 8:27 AM EDT [facility] Work Phone: BONE MARROW ANALYSIS BONE MARROW ANALYSIS Lab Routine 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) 06/25/2023 8:55 AM [facility] Work Phone: BONE MARROW CHROMOSO ME ANAL BONE MARROW CHROMOSOME ANAL Lab Routine 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) 06/25/2023 8:27 AM [facility] Work Phone: Diagnostic bone jaylon ow biopsies IMAGING GUIDED BIOPSY BONE MARROW (HEMATOLOGY) Radiology Routine 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) Ordered: 08/08/2023 [facility] Work Phone: Comment on above: Ordered: 08/08/2023 DNA EXTRACTION BONE MARROW (BUFFY COAT) DNA EXTRACTION BONE MARROW (BUFFY COAT) Lab Routine 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) 06/25/2023 8:27 AM [facility] Work Phone: FLT3 ITD HN BONE MARROW FLT3 ITD HN BONE MARROW Lab Routine 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) 06/25/2023 8:27 AM [facility] Work Phone: MYELOID NGS PANEL ZEENAT NE MARROW MYELOID NGS PANEL BONE MARROW Lab Routine 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) 06/25/2023 8:27 AM [facility] Work Phone: Surgical Pathology Surgical Path ology Lab Routine Lipoma of left forearm Release Upon Ordering for 1 Occurrences starting 12/22/2022 [facility] Work Phone: Comment on above: Release Upon Orderin g for 1 Occurrences starting 12/22/2022 [facility] ANGIO HB6 [facility] SP IR Immunizations Immunization Date Immunization Notes Care Provider Sagrario bowen 05-22-2023 influenza (HD-IIV4) vaccine, age 65+ yr, high dose, quadrivalent, PF (FLUZONE HIGH-DOSE) Aurelia Hines RN Work Phone: [facility] 05-22-2023 tetanus toxoid, redu armaan diphtheria toxoid, and acellular pertussis vaccine, adsorbed Aurelia Hines RN Work Phone: [facility] 08-04-2019 pneumococcal polysaccharide vaccine, 23 valent Aurelia Hines RN Work Phone: [facility] 06-17-2018 influenza, injectabl e, quadrivalent, preservative free Aurelia Hines RN Work Phone: [facility] 06-17-2018 pneumococcal conjuga te vaccine, 13 valent Aurelia Hines RN Work Phone: [facility] 06-03-2017 influenza, injectabl e, quadrivalent, preservative free Aurelia Hines RN Work Phone: [facility] 07-17-2016 influenza, injectabl e, quadrivalent, preservative free Aurelia Hines RN Work Phone: [facility] 06-03-2016 seasonal influenza, intradermal, preservative free Aurelia Hines RN Work Phone: [facility] 03-27-2016 zoster vaccine, live Aurelia moser RN Work Phone: [facility] 07-15-2015 seasonal influenza, intradermal, preservative free Charity Page NP Work Phone: [facility] 05-26-2014 influenza, injectabl e, quadrivalent, preservative free Charity Page TANK CAR RECONDITIONER Work Phone: [facility] 02-02-2008 tetanus and diphther ia toxoids, adsorbed, preservative free, for adult use (2 Lf of tetanus toxoid and 2 Lf of diphtheria toxoid) Charity Page TANK CAR RECONDITIONER Work Phone: [facility] Payers Date Payer Category Payer Private Health Insurance [id number] 2023 Private Health Insurance CLI [id number] 2021 [facility] 2018 Medicare 1961 Medicare [id number] 1961 Unknown [id number] 1953 Unknown [id number] 1953 Unknown [id number] 1955 Unknown [id number] 1953 Unknown [id number] 1953 Unknown [id number] Social History Date Type Detail Facility Start: 12-07-2022 Tobacco smoking stat [facility] Tobacco smoking consumption unknown [facility] Start: 12-07-2022 End: 05-02-2023 Tobacco use and exposure Smokeless tobacco non-user [employer] Phone: Start: 12-22-2022 End: 09-06-2023 Alcohol intake Current drinker of alcohol (finding) [employer] Phone: Start: 12-22-2022 End: 10-11-2023 Alcohol intake [facility] Start: 1955 Sex Assigned At Not on file B ON [facility] Phone: Start: 12-12-2022 End: 12-22-2022 Exposure to SARS-CoV-2 (event) Not sure [facility] Start: 09-04-2013 End: 05-02-2023 Tobacco smoking status NHIS Never smoked tobacco [facility] Start: 05-28-2023 End: 10-11-2023 Tobacco use panel [facility] Adult Depression Screening Assessment 0 [facility] Start: 09-04-2013 Alcohol Comment social [facility] Start: 1955 Sex Assigned At Female C [facility] Start: 11-15-2022 Gender identity Identifies as female gender (finding) [facility] How often to you hav e a [...] like to talk to you concerning Princess [phone] ext [phone] . That was all of the message [facility] 10-16-2023 Miscellaneous Notes Im so very sorry but I could not understand the Drs name Tammy left on our the voicemail .. But He or she would like to talk to you concerning Princess [phone] ext [phone] . That was all of [...] discuss her wellbutrin. documented in this encounter [facility] 10-12-2023 Note [facility] 10-11-[address] Hughes, she and Dr. Macdonald spoke on Sunday and confirmed the patient move forward with the bone marrow biopsy. This was communicated to the patient/spouse after the message below was sent. Called and spoke with patient's spouse, De, who confirmed they are at [facility] preparing for the biopsy. Sofya Schmid RN October 11, 2023 10:04 AM documented in this encounter [facility] 10-10-2023 History of Present illness Narrative Images [...] cell in the future. Today going to [facility] for 3rd PICC, had to remove last one r/t thought had bacteria, but it was ok on culture. Tomorrow going to [place] for 5th bone marrow Bx. Appetite average, eats a meal a day. Program Advisor snacks rest of day ie orange or [...] telephone visit today documented in this encounter [facility] 10-08-2023 Telephone encounter Note I checked into [...] her through to this appt. [place] Shahid [facility] 10-08-2023 Telephone encounter Note Pt would like call to discuss her wellbutrin. [facility] 09-20-2023 Note [facility] 09-13-2023 Note [facility] 09-07-2023 Note [facility] 08-31-2023 Note [facility] 08-30-2023 Note [facility] 08-30-2023 Note [facility] 08-15-2023 Note [facility] 08-15-2023 History of Present illness Narrative SOCIAL [...] . Both stated they stayed at [facility] in the past and needed to stay for the visit in August (message sent to hotel staff member regarding same). stated a referral has been sent to [facility] for the September stay. Mickie will meet with the BMT community mental health social worker at the August visit. Therefore, message sent to her regarding above. Provided support and encouragement. FREDRICK Morgan documented in this encounter [facility] 08-14-2023 Miscellaneous Notes Spoke to pt and [...] for this procedure: low risk. Reference from [employer]: [email or web address] STAFF SIGNATURE: Robinson Benito MD DATE: August [...] CONTACT INFORMATION: Best way to reach patient [phone]. SCHEDULING: Date: 08/28/23 (Specific requests must be [...] random biopsies do not need imaging.) IMAGING: [facility] (If the imaging was obtained outside the [facility] system, PLEASE upload for review prior to approval.) Note to all persons requesting biopsies: All biopsy requests will be scheduled as quickly as possible, based on the clinical urgency, availability of appointment times, the need to hold anti-thrombolytic therapy (aspirin and other blood thinners) and the patient s schedule, including the need for an available waste collection driver. If a percutaneous biopsy or drainage is not felt to be safe or an alternative method for establishing a diagnosis is possible, this will be discussed directly with the requesting physician. documented in this encounter [facility] 08-13-2023 Miscellaneous Notes Princess's , De, called to clarify lab needed the week of 09/04/2023. He is aware the lab will be scheduled on the same day Princess see's Dr. Pham. Also informed De that per BMT TANK CAR RECONDITIONER, Princess's bone density done in October 2021 will be her baseline prior to BMT. De confirmed Princess has received and been reading through the [facility] BMT study consent, and they do not have questions at this time. He verbalized understanding of all the above and is aware to call with questions or concerns. Georgina Kumar RN documented in this encounter [facility] 08-09-2023 Miscellaneous Notes Pt's copay to get posaconazole through [facility] home delivery is $4k. Previously it was sent through [facility], will change script to [facility] instead. Estephanie Parada RN documented in this encounter [facility] 08-08-2023 Miscellaneous Notes [facility] INITIAL TELEPHONE CONTACT Spoke with Princess Wilkes and her , De, on the telephone on 08/08/2023 at 10:10. Princess Wilkes informed that hard copy of education binder will be given to patient at pre-transplant evaluation and link to education binder provided to patient via [employer] secure patient message. Princess Wilkes is currently [...] reside within one hour driving distance from [facility] for at least 100 days post-transplant. Her De will be her primary caregiver and they might stay at [facility] post BMT. Female fertile? No Ovarian suppression [...] Georgina Kumar RN documented in this encounter [facility] 07-30-2023 Note [facility] 07-30-2023 History of Present illness Narrative Images from the original note were not included. This is a virtual visit using [employer] Zoom Video Visit. It required patient-provider interaction for the medical decision making as documented below. I have communicated my name and active licensure. The patient's identity and physical location were verified at the time of this visit. Either the patient or their legal major account representative has been informed of the risks and benefits of -- and alternatives to -- treatment through a remote evaluation and consents to proceed with the evaluation remotely. [facility] Department of Hematology and Medical Oncology Leukemia Program Princess Wilkes ID: [id number] 07/30/2023 PRIMARY CARE PHYSICIAN: Melissa Pierce MD [...] Complications: - Aza/Milton was initiated inpatient at [facility] main (admitted due to concern for port infection) - Diverticulitis - hospitalized 06/18/23 - treated with abx - discharged on 06/20/23 - platelet transfusions 06/13/23 and 06/26/23 - After C2 was admitted again for fever, abdominal infection, transferred to [facility] And was treated with Zosyn, needed [...] of fever and was admitted (transferred to [facility]) and treated with Zosyn. She needed [...] year old female with prior Stage 1 ([id number]) L breast invasive and DCIS, 1.5 cm, [...] presented to the ER on 05/03/23 at [facility] with generalized weakness, dizziness, exertional dyspnea [...] CBC - 0.9 0.09 9.3 10 Darlyn [phone] Past MHx: PAST MEDICAL HISTORY Diagnosis [...] Chest 2012, 141:7S-47S Margo HORN et al. [facility] 2017, 70: 252-289 BONE MARROW ANALYSIS: [id number] Order: [id number] Collected 06/25/2023 8:55 AM Status: Final result [...] Hernandez from the hematopathology section at the [facility], and he concurs with the above rendered final diagnosis and interpretation. Laboratory Developed Test (LDT) Disclaimer: Performance characteristics of immunohistochemical, immunofluorescent and chromogenic in-situ hybridization tests have been determined by the performing laboratory within [facility] s [facility] Pathology and Laboratory Medicine [place] ([facility], [facility], [facility], [facility], [facility], [facility], or [facility]) in a manner consistent with CLIA [...] hemodilute touch imprint may not be entirely major account representative of the true marrow cellularity. [...] cassette. Performing Lab Diagnostic interpretation performed at [facility], [address] [place], [place] [address]IA# [id number] Process Plant Operator: Boris Wood M.D. Assessment and Plan: Ms. Princess Wilkes is a 67 year old female with prior Stage 1 ([id number]) L breast invasive and DCIS, 1.5 cm, [...] status # Prior Breast CA Stage 1 ([id number]) L breast invasive and DCIS, 1.5 cm, [...] which included preparing to see the patient, [id number] patient care, completing clinical documentation, obtaining and/or reviewing separately obtained history, and performing a medically appropriate examination. Mike Hughes MD Hematology and Medical Oncology, Leukemia Division 06/25/23 cc: Mike Hughes [id number] [facility] [id number] Melissa Pierce MD [address] [place] [id number] documented in this encounter [facility] 07-18-2023 Note [facility] 07-17-2023 Note [facility] 07-16-2023 Note [facility] 07-16-2023 Note [facility] 07-15-2023 Note [facility] 07-14-2023 Note [facility] 07-14-2023 History of Past i llness Narrative [...] Tylenol and d/c'd home > seen at [facility] on 05/28 by heme/onc and BMT who recommended admission for concerns for port infection > blood cxs x2 obtained -- NGTD > no fevers 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, 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; 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 > ID [...] of this encounter (statuses as of 07/30/2023) [facility]11-11-2023 History of Past illness Narrative* Problem Noted [...] Tylenol and d/c'd home > seen at [facility] on 05/28 by heme/onc and BMT who recommended admission for concerns for port infection > blood cxs x2 obtained -- NGTD > no fevers 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, 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; 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 > ID [...] of this encounter (statuses as of 08/08/2023) [facility]2023 History of Past illness Narrative* Problem Noted [...] Tylenol and d/c'd home > seen at [facility] on 05/28 by heme/onc and BMT who recommended admission for concerns for port infection > blood cxs x2 obtained -- NGTD > no fevers 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, 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; 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 > ID [...] of this encounter (statuses as of 08/08/2023) [facility]11-11-2023 History of Past illness Narrative* Problem Noted [...] Tylenol and d/c'd home > seen at [facility] on 05/28 by heme/onc and BMT who recommended admission for concerns for port infection > blood cxs x2 obtained -- NGTD > no fevers 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, 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; 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 > ID [...] of this encounter (statuses as of 08/08/2023) [facility]11-11-2023 History of Past illness Narrative* Problem Noted [...] Tylenol and d/c'd home > seen at [facility] on 05/28 by heme/onc and BMT who recommended admission for concerns for port infection > blood cxs x2 obtained -- NGTD > no fevers 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, 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; 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 > ID [...] of this encounter (statuses as of 08/09/2023) [facility]11-11-2023 History of Past illness Narrative* Problem Noted [...] Tylenol and d/c'd home > seen at [facility] on 05/28 by heme/onc and BMT who recommended admission for concerns for port infection > blood cxs x2 obtained -- NGTD > no fevers 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, 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; 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 > ID [...] of this encounter (statuses as of 08/09/2023) [facility]-11-2023 History of Past illness Narrative* Problem Noted [...] Tylenol and d/c'd home > seen at [facility] on 05/28 by heme/onc and BMT who recommended admission for concerns for port infection > blood cxs x2 obtained -- NGTD > no fevers 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, 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; 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 > ID [...] of this encounter (statuses as of 08/10/2023) [facility]11-11-2023 History of Past illness Narrative* Problem Noted [...] Tylenol and d/c'd home > seen at [facility] on 05/28 by heme/onc and BMT who recommended admission for concerns for port infection > blood cxs x2 obtained -- NGTD > no fevers 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, 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; 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 > ID [...] of this encounter (statuses as of 08/10/2023) [facility]-11-2023 History of Past illness Narrative* Problem Noted [...] Tylenol and d/c'd home > seen at [facility] on 05/28 by heme/onc and BMT who recommended admission for concerns for port infection > blood cxs x2 obtained -- NGTD > no fevers 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, 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; 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 > ID [...] of this encounter (statuses as of 08/13/2023) [facility]-11-2023 History of Past illness Narrative* Problem Noted [...] Tylenol and d/c'd home > seen at [facility] on 05/28 by heme/onc and BMT who recommended admission for concerns for port infection > blood cxs x2 obtained -- NGTD > no fevers 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, 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; 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 > ID [...] of this encounter (statuses as of 08/14/2023) [facility] History of Past illness Narrative* Problem Noted [...] Tylenol and d/c'd home > seen at [facility] on 05/28 by heme/onc and BMT who recommended admission for concerns for port infection > blood cxs x2 obtained -- NGTD > no fevers 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, 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; 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 > ID [...] of this encounter (statuses as of 08/16/2023) [facility]-11-2023 History of Past illness Narrative* Problem Noted [...] Tylenol and d/c'd home > seen at [facility] on 05/28 by heme/onc and BMT who recommended admission for concerns for port infection > blood cxs x2 obtained -- NGTD > no fevers 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, 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; 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 > ID [...] of this encounter (statuses as of 10/11/2023) [facility]11-11-2023 [facility]23 Miscellaneous Notes* Telephone Encounter - Aurelia Hines, [...] WILKES Donor Name: PIERRE FERRARI Donor ID: [id number] Relationship: Sibling Report Status: Final Patient HLA Specimen Date: 05/29/2023 DNA ID: [id number] Patient HLA Typing: HLA-A* 02:01 , 68:02 HLA-B* 14:02 , 15:01 HLA-C* 03:04 , 08:02 HLA-DRB1* 01:01 , 13:03 HLA-DRB3* 01:01 , - HLA-DRB4* - , - HLA-DRB5* - , - HLA-DQA1* 01:01 , 05:05 HLA-DQB1* 03:01 , 05:01 HLA-DPA1* 01:03 , - HLA-DPB1* 02:01/416:01 , 04:02/105:01 COMMENTS: none Donor HLA Specimen Date: 06/19/2023 DNA ID: [id number] Donor HLA Typing: HLA-A* 02:01 , 68:02 [...] 06/27/2023 Aurelia Hines RN documented in this encounterK[facility]10-30-2023 [facility]10-30-2023 History of Present illness Narrative* Mike Hughes MD - 07/02/2023 8:49 AM EDT Images from the original note were not included. This is a virtual visit using [employer]MA[employer] Video Visit. It required patient- provider interaction for the medical decision making as documented below. I have communicated my name and active licensure. The patient's identity and physical location wereverified at the time of this visit. Either the patient or their legal major account representative has been informed of the risks and benefits of -- and alternatives to -- treatment through a remote evaluation andconsents to proceed with the evaluation remotely. 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 Macdonald. History Of Present Illness: Ms. Princess Wilkes is a 67 year old female with prior Stage 1 (wG5lP7K7) L breast invasive and DCIS,1.5 cm, grade 2, ER/WY positive and HER2 negative s/p L lumpectomy Sep 2013 followed by adjuvant RTto L breast completed 01/06/14. Oncotype Dx 13 - so no chemo was offered. She then completed 5 years of endocrine therapy from 01/2014 - 01/2019 - letrozole followed by tamoxifen (x1 year). She presented to the ER on 05/03/23 at [facility] with generalized weakness, dizziness, exertional dyspnea [...] CBC - 0.9 0.09 9.3 10 Darlyn [phone] Past MHx: PAST MEDICAL HISTORY Diagnosis Date [...] Chest 2012, 141:7S-47S Margo RA, et al. [facility] 2017, 70: 252-289 BONE MARROW ANALYSIS: [id number] Order: [id number] Collected 06/25/2023 8:55 AM Status: Final result [...] Hernandez from the hematopathology section at the [facility], and he concurs with the above rendered final diagnosis and interpretation. Laboratory Developed Test (LDT) Disclaimer: Performance characteristics of immunohistochemical, immunofluorescent and chromogenic in-situ hybridization tests have been determined by the performing laboratory within [facility] Pathology and Laboratory Medicine [place] ([facility], [facility], [facility], [facility], [facility], [facility], or [facility]) in a manner consistent with CLIA [...] hemodilute touch imprint may not be entirely major account representative of the true marrow cellularity. [...] cassette. Performing Lab Diagnostic interpretation performed at [facility], [address] [place] [address]# [id number] Process Plant Operator: Boris Wood M.D. Assessment and Plan: Ms. Princess Wilkes is a 67 year old female with prior Stage 1 ([id number]) L breast invasive and DCIS,1.5 cm, grade [...] needed # Prior Breast CA Stage 1 (xQ1bD7U9) L breast invasive and DCIS, 1.5 cm, [...] which included preparing to see the patient, [id number] patient care, completing clinical documentation, obtaining and/or reviewing separately obtained history, and performing a medically appropriate examination. Mike Hughes MD Hematology and Medical Oncology, Leukemia Division 06/25/23 cc: Mike Hughes [phone] [id number] Melissa Pierce MD [address] [place] [address] documented in this encounterKet[facility] Health10-23-2023 [facility] Nurse Note* Charlene Ruiz LPN - 06/25/2023 11:28 AM EDT Additional intake questions: Has the patient had fever, nausea, vomiting, diarrhea, constipation, fatigue for > 1 week? Yes, vomiting Does the patient have a decreased appetite? No Does patient want to see a Room Service Attendant? No (yes to any of above refer patient to schedulers for dietitian appointment) ) Does patient have any new or increased numbness or tingling of extremities? No Is patient interested in fertility information? NA Does patient need any prescription refills? No Does patient have an advanced directive in place? Yes, no copy found in [facility] Patient referred to Social Work and Patient referred to Resource Center documented in this encounterK[facility]10-23-2023 [facility]10-23-2023 Surgical operation note* Brief Op Note - Robinson Benito MD - 06/25/2023 9:06 AM EDT BRIEF OPERATIVE / PROCEDURE NOTE LOG ID: [id number] SURGERY/PROCEDURE DATE: 06/25/2023 INCISION/PROCEDURE START TIME: 8:40 AM INCISION CLOSE/PROCEDURE END TIME: 8:59 AM SURGEON(S)/PROCEDURALIST(S) AND LEARNING DEVELOPMENT SPECIALIST(S): Surgeon(s) and Role: * Lj Liz MD [...] 2023 TIME: 9:06 AM documented in this encounterK[facility] Health10-23-2023 History of Present illness Narrative* Marry Modi [...] 25, 2023 8:33 AM documented in this encounterK[facility]10-23-2023 Miscellaneous Notes* Patient Education - Carmen Agudelo [...] Department: HOSP MAIN [id number] documented in this encounterKet[facility] Health10-23-2023 History and physical note * Robinson Benito [...] TIME: 8:01 AM PAGER: documented in this encounterK[facility]10-23-2023 History of Present illness Narrative* Mike Hughes MD - 06/25/2023 12:00 AM EDT Images from the original note were not included. 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 Macdonald. History Of Present Illness: Ms. Princess Wilkes is a 67 year old female with prior Stage 1 (uG2dY0K0) L breast invasive and DCIS,1.5 cm, grade 2, ER/WY positive and HER2 negative s/p L lumpectomy Sep 2013 followed by adjuvant RTto L breast completed 01/06/14. Oncotype Dx 13 - so no chemo was offered. She then completed 5 years of endocrine therapy from 01/2014 - 01/2019 - letrozole followed by tamoxifen (x1 year). She presented to the ER on 05/03/23 at [facility] with generalized weakness, dizziness, exertional dyspnea [...] 0.14, Hb 8.3, plt 20 Cytogenetics 43~45,XX,add(1)(q21),del(3)(q21q25),add(4)(q21),-5,add(7)(q11.2),del(7)(q32),-9, add(9)(q13),nehemaih(11)t(1;11)(q21;q23),-12,-16,+mar[cp17] NGS showed RUNX1 (F40Wfs*14; 20.9%); TP53 (C238Y; [...] - 0.9 0.09 9.3 10 Darlyn - [phone] Past MHx: PAST MEDICAL HISTORY Diagnosis [...] Chest 2012, 141:7S-47S Margo RA, et al. [facility] 2017, 70: 252-289 Assessment and Plan: Ms. Princess Wilkes is a 67 year old female with prior Stage 1 (jW2sJ7G7) L breast invasive and DCIS,1.5 cm, grade [...] needed # Prior Breast CA Stage 1 (kS7cJ6G5) L breast invasive and DCIS, 1.5 cm, [...] which included preparing to see the patient, [id number]-wser patient care, completing clinical documentation, obtaining and/or reviewing separately obtained history, and performing a medically appropriate examination. Mike Hughes MD Hematology and Medical Oncology, Leukemia Division 06/25/23 cc: Mike Hughes [address] [facility] [id number] Melissa Pierce MD [address] [place] [phone] documented in this encounterKet[facility] Health10-20-2023 Miscellaneous Notes* Telephone Encounter - Agustina Quevedo [...] REEMA for her assistance. documented in this encounterKet[facility] Health10-18-2023 Nurse Note* Edel Hobbs LPN - 06/20/2023 11:11 AM EDT Pre- e instructions: Contacted patient and confirmed appt. for bone marrow biopsy scheduled on 06/25/23, at [facility] Diet: Do not eat solid food after [...] signed. Arrival at 6:30am to desk QB[facility] ([facility]) and check in for your procedure. Liquid Compounder/Transportation: How will you be arriving for your procedure? Private car. If you will be arriving at [facility] via ambulance or public transportation, please call to discuss. You will need a responsible adult to accompany you to and from the procedure. Your waste collection driver is required to stay with you until you are taken into the Procedure room. Recovery expectations: You can expect to be at the hospital for the majority of the day. Please do not schedule any other appointments the day of your procedure. Written instructions provided to patient via buySAFEhart If you have any questions please call [phone] documented in this encounterKettering Health10-17-2023 Miscellaneous Notes* Telephone Encounter - Amrita Pelaez [...] this procedure: low risk. Reference from [facility] [employer]: https://[facility].policytech.com/dotNet/documents/?ydvbs=08901 STAFF SIGNATURE: Gurmeet Webb MD DATE: June [...] PATIENT CONTACT INFORMATION: Best way to reach [phone] SCHEDULING: Date: 06/25/2023 patient is scheduled for a standard marrow this day but required CT guided last time. Please call Estephanie RN at [phone] if any questions. (Specific requests must be [...] random biopsies do not need imaging.) IMAGING: [facility] (If the imaging was obtained outside the [facility] system, PLEASE upload for review prior to approval.) Note to all persons requesting biopsies: All biopsy requests will be scheduled as quickly as possible, based on the clinical urgency, availability of appointment times, the need to hold anti-thrombolytic therapy (aspirin and other blood thinners) and the patient s schedule, including the need for an available waste collection driver. If a percutaneous biopsy or drainage is not felt to be safe or an alternative method for establishing a diagnosis is possible, this will be discussed directly with the requesting physician. documented in this encounterK[facility]10-14-2023 NoteHNO ID: [id number] Author: Note, Interface Service: ? Author Type: ? Type: Progress Notes Filed: 2023 2:15 AM Note Text: Epic Scheduled Downtime: 2023 1:00:00 AM to 2023 1:28:00 [facility]10-12-2023 [facility]10-12-2023 Miscellaneous Notes* Telephone Encounter - Mary Ohara LGC - 06/14/2023 1:24 PM EDT I left a voicemail for the patient including my contact information requesting that she return my call to discuss options for scheduling a genetic counseling visit. Mary Ohara MS, [facility], PhD Licensed, Certified Genetic Counselor documented in this encounterKet[facility] Health10-05-2023 [facility]10-04-2023 [facility]10-03-2023 [facility]10-03-2023 [facility]10-02-2023 Note [facility]10-01-2023 [facility]09-30-2023 [facility] 06-01-2023 [facility]Hol[facility]09-29-2023 [facility]09-29-2023 [facility]09-29-2023 [facility]09-28-2023 Miscellaneous Notes* Telephone Encounter - Chika Lagos - 05/31/2023 2:54 PM EDT THE COMPLETED [employer] PATIENT ASSISTANCE APPLICATION FOR POSACONAZOLE WAS FAXED FOR CONSIDERATION. RECEIVED CALL FROM [employer] AND MORENITA SEARS, THE PATIENT WAS APPROVED FOR ASSISTANCE UNDER FOR THE DATES: 05/31/2023 - AT NO COST TO THE PATIENT. THE MEDICATION WILL BE MAILED DIRECTLY TO THE PATIENTS HOME ADDRESS WITHIN 3 TO 5 BUSINESS DAYS. EMAILED THE INFORMATION TO PRESCRIBER. 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, 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; 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 > ID [...] of this encounter (statuses as of 06/14/2023) [facility]09-28-2023 History of Past illness Narrative* Problem Noted [...] Tylenol and d/c'd home > seen at [facility] on 05/28 by heme/onc and BMT who recommended admission for concerns for port infection > blood cxs x2 obtained -- NGTD > no fevers 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, 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; 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 > ID [...] of this encounter (statuses as of 06/20/2023) [facility]09-28-[facility] History of Past illness Narrative* Problem Noted [...] Tylenol and d/c'd home > seen at [facility] on 05/28 by heme/onc and BMT who recommended admission for concerns for port infection > blood cxs x2 obtained -- NGTD > no fevers 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, 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; 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 > ID [...] of this encounter (statuses as of 06/22/2023) [facility]-28-[facility] History of Past illness Narrative* Problem Noted [...] Tylenol and d/c'd home > seen at [facility] on 05/28 by heme/onc and BMT who recommended admission for concerns for port infection > blood cxs x2 obtained -- NGTD > no fevers 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, 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; 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 > ID [...] of this encounter (statuses as of 06/26/2023) [facility]-28-[facility] History of Past illness Narrative* Problem Noted [...] Tylenol and d/c'd home > seen at [facility] on 05/28 by heme/onc and BMT who recommended admission for concerns for port infection > blood cxs x2 obtained -- NGTD > no fevers 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, 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; 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 > ID [...] of this encounter (statuses as of 06/26/2023) [facility]-28[facility] History of Past illness Narrative* Problem Noted [...] Tylenol and d/c'd home > seen at [facility] on 05/28 by heme/onc and BMT who recommended admission for concerns for port infection > blood cxs x2 obtained -- NGTD > no fevers 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, 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; 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 > ID [...] of this encounter (statuses as of 07/02/2023) [facility]-28-20[facility] History of Past illness Narrative* Problem Noted [...] Tylenol and d/c'd home > seen at [facility] on 05/28 by heme/onc and BMT who recommended admission for concerns for port infection > blood cxs x2 obtained -- NGTD > no fevers 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, 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; 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 > ID [...] of this encounter (statuses as of 07/07/2023) [facility]-28-[facility] History of Past illness Narrative* Problem Noted [...] Tylenol and d/c'd home > seen at [facility] on 05/28 by heme/onc and BMT who recommended admission for concerns for port infection > blood cxs x2 obtained -- NGTD > no fevers 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 Sherry Macdonald) History of present illness: The patient is a 67-year-old woman with a history of stage I (xP3oZ2T3)invasive breast carcinoma and DCIS of the left [...] experienced easy bruising. She initially presented to [facility] emergency department and was subsequently transferred to [facility] for further evaluation. She was noted [...] revealed complex cytogenetics/an NGS AML profile by [employer] revealed the following mutations:RUNK1 F40Wfs*14, TP53 C238Y, and DNMT3A R635W. The patient had a right sided Port-A-Cath placed on 05/26/2023 and was initially anticipated to start Vidaza and venetoclax next week. However, the Port-A-Cath site became extremely tender with surrounding erythema. She was evaluated earlier today by Dr. Mike Hughes and our Leukemia Program here at the [facility] and subsequently was referred to me for a transplant regarding allogenic hematopoietic cell transplantation. At the time of her visit she noted having some prior diffuse pain for which she had been in [facility]'s emergency department yesterday and received [...] patient is and previously worked as a [employer] for 42 years and has been retired [...] on her extremities, erythema/tenderness around the right Xebl-X-Jeaegnwt tracking down to the right upper breast but no other rash. . Impression/recommendation: In summary, Mrs. Wilkes is a woman with a history of stage I (mA0uL4N9) invasive breast carcinoma and DCIS of the [...] Melissa Hill MD (PCP) documented in this encounterKettering Health09-25-2023 NoteHol[facility] System09-25-2023 History of Present illness Narrative* Aurelia Hines [...] basics book provided by [facility]. Instructions provided to have siblings register online or call with provided information. Patient instructed to call Aurelia Hines RN , pager [phone] with any questions. Business card provided. Patient [...] search. Aurelia Hines RN documented in this encounterKettering Health09-25-2023 Nurse Note* Cathleen Schuster LPN - 05/28/2023 1:26 PM EDT Reviewed and discussed nursing notes,vital signs,recent tests,,medications with the patient. documented in this encounterKettering Health09-25-2023 NoteHol[facility] System04-21-2023 History of Present illness Narrative* Lynnette Malcolm [...] wellness lab and EKG completed 12/06/22 at [facility]. * New Marks RN - 12/07/2022 1:28 PM EDT Attempted PAT phone call; no answer; message left to return PAT phone call. [facility] encounterB[facility] [address] Phone: 1(387) 489-107104-21-2023 Hospital Discharge instructions* Discharge Instructions* Lynnette Malcolm [...] 1-2 weeks. Call the office if questions [phone] documented in this encounterBON [facility]ENTERNet[facility] Phone: [phone] 388-988001-09-2014 History of Past illness Narrative* Problem Noted Date Diagnosed Date Resolved Date Breast cancer 09/11/2013 05/28/2023 documented as of this encounter (statuses as of 05/28/2023) [facility] History of Past illness Narrative* Problem Noted Date Diagnosed Date Resolved Date Breast cancer 09/11/2013 05/28/2023 documented as of this encounter (statuses as of 05/29/2023) [facility] History of Past illness Narrative* Problem Noted Date Diagnosed Date Resolved Date Breast cancer 09/11/2013 05/28/2023 documented as of this encounter (statuses as of 06/01/2023) [facility] [place] [facility]* Diagnosis Acute postoperative pain- Primary Other acute postoperative pain Lipoma of left forearm documented in this encounter [facility] [employer] 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 documented [facility] encounter [facility] [place] [facility]* Diagnosis 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 Infection due to Port-A-Cath, initial encounter documented in this encounter [facility] [place] note* Diagnosis 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) [facility] [place] [facility]* Diagnosis 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 Pancytopenia (HCC) Other pancytopenia History of breast cancer Personal history of malignant neoplasm of breast 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) [facility] [place] [facility]* Diagnosis 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 Pancytopenia (HCC) Other pancytopenia [facility] [place] [facility]* Diagnosis 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) [facility] [place] [facility]* Diagnosis 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 Hospital discharge follow-up Other follow-up examination Pancytopenia (HCC) Other pancytopenia Colitis Other and unspecified noninfectious gastroenteritis and colitis [facility] [place] [facility]* Diagnosis 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 [facility] [place] [facility]* Diagnosis 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 [facility] Diagnosis 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) [facility] [place] [facility]* Diagnosis Reactive depression (CMS/HCC)- Primary Anxiety [...] section and content) DATE CREATED AUTHOR 06/15/2021 [facility] DATE CREATED AUTHOR AUTHOR'S ORGANIZ ATION 08/17/2021 [facility] DATE CREATED AUTHOR AUTHOR'S ORGANIZ ATION [facility] DATE CREATED AUTHOR AUTHOR'S ORGANIZ ATION 05/25/2023 [facility] DATE CREATED AUTHOR AUTHOR'S ORGANIZ ATION 10/15/2023 [facility] DATE CREATED AUTHOR AUTHOR'S ORGANIZ ATION 10/16/2023 [facility] DATE CREATED AUTHOR AUTHOR'S ORGANIZ ATION 10/17/2023 [facility] Reason for Visit (unrecogniz ed section and content) Specialty Diagnoses / Procedures Referred By Contac t Referred To Contact Diagnoses 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 Procedures WY EXC B9 LESION MRGN XCP SK TG T/A/L 0.5 CM/< ARM LESION BIOPSY EXCISION-INNER ARM LIPOMA Martha Malik DO [address] [facility] [address] [place] [address] [facility] [address] [place] [address] Referral ID Status Reason Start Date Expiration Date Visits Re quested Visits Authorized [id number] 1 1 Reason Comments Consult Reason Comments Biopsy Request Reason Comments Patient Question Reason Comments Established Patient Reason Comments Leukemia Reason Onset Date Comments Refill Request 08/07/2023 Reason Comments Patient Education (Transplant) BMT Plann ing Reason Onset Date Comments Refill Request 08/09/2023 Reason Comments Consent Presentation [id number] Reason Comments Appointment Ordered Prescriptions (unrec ognized [...] 12/20/2022 12/21/2022 12/22/2022 bupivacaine-EPINEPHrine PF (MARCAINE-w/EPINEPHRINE) 0.5% -[id number] injection (CANCELED) PRN, Starting on Sun12/22/22 at [...] Care Teams (unrecognized sec tion and content) Telephone Sales Representative Relationship Specialty Start Date End Date Wonderly, Melissa Banuelos MD [address] [place] [address] PCP - General Family Medicine 11/17/22 Telephone Sales Representative Relationship Specialty Start Date End Date Wonderly, Melissa Shahid MD PCP - General Family Medicine 08/25/13 Telephone Sales Representative Relationship Specialty Start Date End Date Wonderly, Melissa Shahid MD PCP - General Family Medicine 08/25/13 Telephone Sales Representative Relationship Specialty Start Date End Date Wonderly, Melissa Shahid MD PCP - General Family Medicine 08/25/13 Telephone Sales Representative Relationship Specialty Start Date End Date Wonderly, Melissa Shahid MD PCP - General Family Medicine 08/25/13 Telephone Sales Representative Relationship Specialty Start Date End Date Wonderly, Melissa Shahid MD PCP - General Family Medicine 08/25/13 Mike Hughes MD [address] [place] [address] Physician Hematology/Oncology 06/19/23 Telephone Sales Representative Relationship Specialty Start Date End Date Wonderly, Melissa Shahid MD PCP - General Family Medicine 08/25/13 Mike Hughes MD [address] [place] [address] Physician Hematology/Oncology 06/19/23 Telephone Sales Representative Relationship Specialty Start Date End Date Melissa Pierce MD PCP - General Family Medicine 08/25/13 Mike Hughes MD [address] [place] [phone] Physician Hematology/Oncology 06/19/23 Telephone Sales Representative Relationship Specialty Start Date End Date Melissa Pierce MD PCP - General Family Medicine 08/25/13 Mike Hughes MD [address] [place] [address] Physician Hematology/Oncology 06/19/23 Telephone Sales Representative Relationship Specialty Start Date End Date Melissa Pierce MD PCP - General Family Medicine 08/25/13 Mike Hughes MD [address] [place] [address] Physician Hematology/Oncology 06/19/23 Dania Hill, MAMTA Specialty Insurance Special Agent Hematology/Oncology 06/28/23 Telephone Sales Representative Relationship Specialty Start Date End Date Melissa Pierce MD PCP - General Family Medicine 08/25/13 Mike Hughes MD [address] [place] [phone] Physician Hematology/Oncology 06/19/23 Dania Hill, RN Specialty Insurance Special Agent Hematology/Oncology 06/28/23 Telephone Sales Representative Relationship Specialty Start Date End Date Melissa Pierce MD PCP - General Family Medicine 08/25/13 Mike Hughes MD [address] [place] [phone] Physician Hematology/Oncology 06/19/23 Dania Hill, RN Specialty Insurance Special Agent Hematology/Oncology 06/28/23 Telephone Sales Representative Relationship Specialty Start Date End Date Melissa Pierce MD PCP - General Family Medicine 08/25/13 [place] [address] [place], [place] [phone] Physician Hematology/Oncology 06/19/23 Dania Hill, RN Specialty Insurance Special Agent Hematology/Oncology 06/28/23 [place] [address] [place] [id number] Specialty Insurance Special Agent Blood and Marrow Transplant 08/06/23 [place] [address] [place] [phone] Transplant Physician Blood and Marrow Transplant 08/06/23 Telephone Sales Representative Relationship Specialty Start Date End Date Melissa Pierce MD PCP - General Family Medicine 08/25/13 Mike Hughes MD [address] [place], [place] [phone] Physician Hematology/Oncology 06/19/23 Dania Hill, MAMTA Specialty Insurance Special Agent Hematology/Oncology 06/28/23 Georgina Kumar, MAMTA [address] [place] [address] Specialty Insurance Special Agent Blood and Marrow Transplant 08/06/23 [place] Pham [place] [id number] [place] [address] Transplant Physician Blood and Marrow Transplant 08/06/23 Telephone Sales Representative Relationship Specialty Start Date End Date Melissa Pierce MD PCP - General Family Medicine 08/25/13 Mike Hughes MD [address] [place], [place] [phone] Physician Hematology/Oncology 06/19/23 Dania Hill RN Specialty Insurance Special Agent Hematology/Oncology 06/28/23 Georgina Kumar, MAMTA [address] [place] [id number] Specialty Insurance Special Agent Blood and Marrow Transplant 08/06/23 Brianna Pham MD [id number] [place] [address] Transplant Physician Blood and Marrow Transplant 08/06/23 Telephone Sales Representative Relationship Specialty Start Date End Date Melissa Pierce MD PCP - General Family Medicine 08/25/13 Mike Hughes MD [address] [place] [phone] Physician Hematology/Oncology 06/19/23 Dania Hill, MAMTA Specialty Insurance Special Agent Hematology/Oncology 06/28/23 Georgina Kumar, MAMTA [address] [place] [address] Specialty Insurance Special Agent Blood and Marrow Transplant 08/06/23 [place] [address] [place] [address] Transplant Physician Blood and Marrow Transplant 08/06/23 Telephone Sales Representative Relationship Specialty Start Date End Date Melissa Pierce MD PCP - General Family Medicine 08/25/13 [place] [address] [place] [address] Physician Hematology/Oncology 06/19/23 Dania Hill, MAMTA Specialty Insurance Special Agent Hematology/Oncology 06/28/23 Georgina Kumar, MAMTA [address] [place] [id number] Specialty Insurance Special Agent Blood and Marrow Transplant 08/06/23 Bri[place] Pham MD [id number] [place], [place] [phone] Transplant Physician Blood and Marrow Transplant 08/06/23 Telephone Sales Representative Relationship Specialty Start Date End Date Melissa Pierce MD PCP - General Family Medicine 08/25/13 Mike Hughes MD [address] [place] [address] Physician Hematology/Oncology 06/19/23 Georgina Kumar, MAMTA [address] [place] [address] Specialty Insurance Special Agent Blood and Marrow Transplant 08/06/23 Brianna Pham MD [id number] [place], [place] [phone] Transplant Physician Blood and Marrow Transplant 08/06/23 Sofya Schmid RN Specialty Insurance Special Agent Hematology/Oncology 08/09/23 Fidelina Shearer LISW [address] [place] [address] Blood and Marrow Transplant 08/09/23 Telephone Sales Representative Relationship Specialty Start Date End Date Melissa Pierce MD PCP - General Family Medicine 08/25/13 Mike Hughes MD [address] [place], [place] [phone] Physician Hematology/Oncology 06/19/23 [place] [address] [place] [address] Specialty Insurance Special Agent Blood and Marrow Transplant 08/06/23 [place] [address] [place] [address] Transplant Physician Blood and Marrow Transplant 08/06/23 Sofya Schmid RN Specialty Insurance Special Agent Hematology/Oncology 08/09/23 Fidelina Shearer LISW [address] [place] [address] Blood and Marrow Transplant 08/09/23 Telephone Sales Representative Relationship Specialty Start Date End Date Melissa Pierce MD PCP - General Family Medicine 08/25/13 Mike Hughes MD [address] [place] [address] Physician Hematology/Oncology 06/19/23 Georgina Kumar, MAMTA [address] [place] [address] Specialty Insurance Special Agent Blood and Marrow Transplant 08/06/23 [place] [address] [place] [address] Transplant Physician Blood and Marrow Transplant 08/06/23 Sofya Schmid RN Specialty Insurance Special Agent Hematology/Oncology 08/09/23 Fidelina Shearer LISW [address] [place], [place] [phone] Blood and Marrow Transplant 08/09/23 Telephone Sales Representative Relationship Specialty Start Date End Date Melissa Pierce MD PCP - General Family Medicine 08/25/13 Mike Hughes MD [address] [place], [place] [phone] Physician Hematology/Oncology 06/19/23 Dania Hill, RN Specialty Insurance Special Agent Hematology/Oncology 06/28/23 08/08/23 Georgina Kumar, MAMTA [address] [place] [address] Specialty Insurance Special Agent Blood and Marrow Transplant 08/06/23 [place] [address] [place], [place] [phone] Transplant Physician Blood and Marrow Transplant 08/06/23 Sofya Schmid RN Specialty Insurance Special Agent Hematology/Oncology 08/09/23 Fidelina Shearer LISW [address] [place], [place] [phone] Blood and Marrow Transplant 08/09/23 Telephone Sales Representative Relationship Specialty Start Date End Date Melissa Pierce MD PCP - General Family Medicine 08/25/13 Mike Hughes MD [address] [place], [place] [phone] Physician Hematology/Oncology 06/19/23 [place] [address] [place] [address] Specialty Insurance Special Agent Blood and Marrow Transplant 08/06/23 [place] [address] [place] [address] Transplant Physician Blood and Marrow Transplant 08/06/23 Sofya Schmid RN Specialty Insurance Special Agent Hematology/Oncology 08/09/23 Fidelina Shearer LISW [address] [place] [address] Blood and Marrow Transplant 08/09/23 Telephone Sales Representative Relationship Specialty Start Date End Date Melissa Piecre MD PCP - General Family Medicine 08/25/13 Mike Hughes MD [address] [place] [address] Physician Hematology/Oncology 06/19/23 [place] [address] [place] [address] Specialty Insurance Special Agent Blood and Marrow Transplant 08/06/23 [place] [address] [place] [address] Transplant Physician Blood and Marrow Transplant 08/06/23 Sofya Schmid RN Specialty Insurance Special Agent Hematology/Oncology 08/09/23 Fidelina Shearer, JAQUELIN [address] [place] [phone] Blood and Marrow Transplant 08/09/23 Telephone Sales Representative Relationship Specialty Start Date End Date Wonderly, Melissa Banuelos MD [address] [place] [address] PCP - General Family Medicine 02/26/23 Telephone Sales Representative Relationship Specialty Start Date End Date Wonderly, Melissa Banuelos MD [address] [facility] [place] [address] PCP - General Family Medicine 02/26/23 Telephone Sales Representative Relationship Specialty Start Date End Date WonderMelissa conrad MD [address] [place] [address] PCP - General Family Medicine 02/26/23 Telephone Sales Representative Relationship Specialty Start Date End Date Wonderly, Melissa Banuelos MD [address] [place] [address] PCP - General Family Medicine 02/26/23 Source Comments (unrecognize d section and content) In the event this informatio n is protected by the Federal Confidentiality of Alcohol and Drug Abuse Patient Records regulations: The Federal rules restrict any use of the information to criminally investigate or prosecute any alcohol or drug abuse patient.[facility] Health[facility] the event this information is protected by the Federal Confidentiality of Alcohol and Drug Abuse Patient Records regulations: The Federal rules restrict any use of the information to criminally investigate or prosecute any alcohol or drug abuse patient.[facility] HealthIn the event this information is protected by the Federal Confidentiality of Alcohol and Drug Abuse Patient Records regulations: The Federal rules restrict any use of the information to criminally investigate or prosecute any alcohol or drug abuse patient.[facility] HealthIn the event this information is protected by the Federal Confidentiality of Alcohol and Drug Abuse Patient Records regulations: The Federal rules restrict any use of the information to criminally investigate or prosecute any alcohol or drug abuse patient.[facility] HealthIn the event this information is protected by the Federal Confidentiality of Alcohol and Drug Abuse Patient Records regulations: The Federal rules restrict any use of the information to criminally investigate or prosecute any alcohol or drug abuse patient.[facility] HealthIn the event this information is protected by the Federal Confidentiality of Alcohol and Drug Abuse Patient Records regulations: The Federal rules restrict any use of the information to criminally investigate or prosecute any alcohol or drug abuse patient.[facility] HealthIn the event this information is protected by the Federal Confidentiality of Alcohol and Drug Abuse Patient Records regulations: The Federal rules restrict any use of the information to criminally investigate or prosecute any alcohol or drug abuse patient.[facility] HealthIn the event this information is protected by the Federal Confidentiality of Alcohol and Drug Abuse Patient Records regulations: The Federal rules restrict any use of the information to criminally investigate or prosecute any alcohol or drug abuse patient.[facility] HealthIn the event this information is protected by the Federal Confidentiality of Alcohol and Drug Abuse Patient Records regulations: The Federal rules restrict any use of the information to criminally investigate or prosecute any alcohol or drug abuse patient.[facility] HealthIn the event this information is protected by the Federal Confidentiality of Alcohol and Drug Abuse Patient Records regulations: The Federal rules restrict any use of the information to criminally investigate or prosecute any alcohol or drug abuse patient.[facility] HealthIn the event this information is protected by the Federal Confidentiality of Alcohol and Drug Abuse Patient Records regulations: The Federal rules restrict any use of the information to criminally investigate or prosecute any alcohol or drug abuse patient.[facility] HealthIn the event this information is protected by the Federal Confidentiality of Alcohol and Drug Abuse Patient Records regulations: The Federal rules restrict any use of the information to criminally investigate or prosecute any alcohol or drug abuse patient.[facility] HealthIn the event this information is protected by the Federal Confidentiality of Alcohol and Drug Abuse Patient Records regulations: The Federal rules restrict any use of the information to criminally investigate or prosecute any alcohol or drug abuse patient.[facility] HealthIn the event this information is protected by the Federal Confidentiality of Alcohol and Drug Abuse Patient Records regulations: The Federal rules restrict any use of the information to criminally investigate or prosecute any alcohol or drug abuse patient.[facility] HealthIn the event this information is protected by the Federal Confidentiality of Alcohol and Drug Abuse Patient Records regulations: The Federal rules restrict any use of the information to criminally investigate or prosecute any alcohol or drug abuse patient.[facility] HealthIn the event this information is protected by the Federal Confidentiality of Alcohol and Drug Abuse Patient Records regulations: The Federal rules restrict any use of the information to criminally investigate or prosecute any alcohol or drug abuse patient.[facility] HealthIn the event this information is protected by the Federal Confidentiality of Alcohol and Drug Abuse Patient Records regulations: The Federal rules restrict any use of the information to criminally investigate or prosecute any alcohol or drug abuse patient.[facility] HealthIn the event this information is protected by the Federal Confidentiality of Alcohol and Drug Abuse Patient Records regulations: The Federal rules restrict any use of the information to criminally investigate or prosecute any alcohol or drug abuse patient.[facility] HealthIn the event this information is protected by the Federal Confidentiality of Alcohol and Drug Abuse Patient Records regulations: The Federal rules restrict any use of the information to criminally investigate or prosecute any alcohol or drug abuse patient.[facility] HealthIn the event this information is protected by the Federal Confidentiality of Alcohol and Drug Abuse Patient Records regulations: The Federal rules restrict any use of the information to criminally investigate or prosecute any alcohol or drug abuse patient.[facility] HealthIn the event this information is protected by the Federal Confidentiality of Alcohol and Drug Abuse Patient Records regulations: The Federal rules restrict any use of the information to criminally investigate or prosecute any alcohol or drug abuse patient.[facility] HealthIn the event this information is protected by the [facility] Confidentiality of Alcohol and Drug Abuse Patient Records regulations: The Federal rules restrict any use of the information to criminally investigate or prosecute any alcohol or drug abuse patient.[facility] HealthIn the event this information is protected by the Federal Confidentiality of Alcohol and Drug Abuse Patient Records regulations: The Federal rules restrict any use of the information to criminally investigate or prosecute any alcohol or drug abuse patient.[facility] FOR RECORDS PERTAINING TO PATIENTS WHO ARE [...] BE BASED ON THE PRIMARY CLINICAL RECORDS. [employer] [facility]. provides no warranty or guarantee of the accuracy or completeness of information in this document.
== END 2023-10-17 14:54 | disposition home or self-care (01) ==
PROVIDERS: PCP Family Medicine; Visit Provider Emergency Medicine
DX: Z13.9 Encounter for screening, unspecified (principal)
CPT/HCPCS: 86850; 86900; 86901

== ENCOUNTER 2023-09-23 10:27 | Emergency (ER) | payer MEDICARE, SELFPAY ==
[2023-09-23 10:31] VITALS: BP 160/90; PULSE 85; RESP 20; TEMP 36.4; O2SAT 95; BMI 39.4
[2023-09-23 10:36] VITALS: PULSE 84; RESP 15
--- OUTSIDE RECORDS SUMMARY | 2023-09-23 10:38 | XMS_ITS | CCD ---
Author Name Unknown Address [address] [place] [address] Organization [facility] Care Team Providers Care Facilities Clerk Name Role Phone WONDERCECELIA, MABEL Primary Care Unavailable WONDERCECELIA, MELISSA SHAHID Consulting Unavailable ELE PANIAGUA Attending Brenna vailable WONDERLY, DR MELISSA Banuelos Attending Unavailable WONDERLY, DR MELISAS Banuelos Consulting Unavailable WONDERCECELIA, DR MELISSA Banuelos Primary Care Unavailable WONDERCCEELIA, DR MELISSA Banuelos Admitting Unavailable Melissa Pierce MD Primary Care Provider MARTHA MALIK I Admitting Unavailable MARTHA MALIK I Attending Unavailable MELISSA PIERCE Primary Care Unavailable Melissa Pierce MD Primary Care Provider Saul DANG, Mike Joseph Unavailable Liz OLEARY, Dania Unavailable Unavailable Stacy OLEARY, Georgina Unavailable Brianna Pham MD Unavailable [phone] Sharmaine OLEARY, Sofya Unavailable Fidelina Dominguez Unavailable Liz OLEARY, Dania Unavailable Unavailable MELISSA PIERCE Attending Unavailable MIKE HUGHES Attending Unavailable WONDERCECELIA, [facility] Primary Care Unavailable MIKE HUGHES Attending Unavailable WONDERCECELIA, [facility] Primary Care Unavailable BRIANNA PHAM Attending Unavailable BISHOP, SHERRY Referring Unavailable WONDERLY, [facility] Primary Care Unavailable BISHOP, SHERRY Referring Unavailable WONDERLY, [facility] Primary Care Unavailable BISHOP, SHERRY Referring Unavailable WONDERLY, [facility] Primary Care Unavailable WONDERLY, [facility] Primary Care Unavailable BETH ACOSTA Referring Unavailable WONDERLY, [facility] Primary Care Unavailable LJ LIZ Attending Unavailable LJ LIZ Admitting Unavailable WONDERLY, [facility] Primary [facility] Unavailable CHARLENE MARTINEZ Attending Unavailable CHARLENE MARTINEZ Admitting Unavailable WONDERLY, [facility] Unavailable BETH ACOSTA Referring Unavailable HUGHES, AKRILYLA JOSEPH Referring Unavailable HUGHES, AKRITI JOSEPH Attending Unavailable WONDERLY, [facility] Unavailable HUGHES, AKRITI JOSEPH Referring Unavailable HUGHES, AKRITI JOSEPH Attending Unavailable WONDERLY, [facility] Unavailable HUGHES, AKRITI JOSEPH Attending Unavailable WONDERLY, [facility] Unavailable HUGHES, AKRITI JOSEPH Attending Unavailable WONDERLY, [facility] Unavailable ABDI CONTEH Referring Unavailable MARYZAID S Attending Unavailable MARY, ZAID S Admitting Unavailable WONDERLY, [facility] Unavailable WONDERLY, [facility] Unavailable WONDERLY, [facility] Referring Unavailable SMITH HDEZ K Admitting Unavailabl e CINDI GONZALES Attending Unavailable BISHOP SHERRY Referring Unavailable HUGHES, AKRITI JOSEPH Attending Unavailable WONDERLY, [facility] Unavailable HUGHES, AKRITI JOSEPH Attending Unavailable WONDERLY, [facility] Unavailable Allergies Allergy Classification Reported Allergen(s) Allergy Type Date of Onset Reaction(s) Facility (20 sources) Acetaminophen / HYDROcodone; Translations: [HYDROCODONE-ACET AMINOPHEN] Drug Allergy 4 Other (See Comments), Mental Status Change [facility] (1 source) Acetaminophen / HYDROcodone; Translations: [Vicodin] Drug Allergy [facility] Repository Medications Current Medications Medication Drug Class(es) [...] on above: Take 1 capsule by mo ut two times a day as needed for diarrhea. Multiple Vitamins-Minerals (THERAPEUTIC MULTIVITAMIN-MINERAL S) tablet (1 source) take 1 tablet by mouth once daily Multiple Vitamins-Minerals (THERAPEUTIC MULTIVITAMIN-MINERA LS) tablet Take 1 tablet by mouth daily 0 Active posaconazole 100 mg delayed release oral tablet (20 sources) Azole Antifungal Start: 06-01-2023 End: 11-07-2023 take 3 tablets by mouth once daily posaconazole DR (NOXAFIL) 100 mg tablet Take 3 tablets by mouth once daily. 90 tablet 2 08/09/2023 11/07/2023 Active Comment on above: Take 3 tablets by mo ut once daily. simethicone 80 mg chewable tablet (11 sources) Start: 07-18-2023 End: 08-17-2023 take 1 tablet by mouth every six hours as needed simethicone, chewable (MYLICON) 80 mg chewable tablet Take 1 tablet by mouth every 6 hours as needed. 60 tablet 0 07/18/2023 08/17/2023 Active Comment on above: Take 1 tablet by teto th every 6 hours as needed. traMADol hydrochloride [...] above: Take 1 tablet by teto th every 4 hours as needed. acyclovir 400 [...] 0.9% 100 mL IVPB (1 source) Start: 12-23-19 End: 12-23-19 ceFAZolin (ANCEF) 3000 mg in sodium chloride 0.9% 100 mL IVPB ciprofloxacin 500 mg oral tablet (3 sources) Quinolone Antimicrobial Start: 05-08-20 take 1 tablet by mouth twice daily ciprofloxacin HCl (CIPRO) 500 mg tablet Take 500 mg by mouth twice daily. 0 05/08/2023 Suspended Comment on above: Take 500 mg by mouth twice daily. dimenhyDRINATE 50 mg oral tablet (1 source) Start: 12-23-19 End: 12-23-19 dimenhyDRINATE (DRAMAMINE) tablet 50 mg ibuprofen 200 mg oral capsule (3 sources) Nonsteroidal Anti-inflammatory Drug Ibuprofen 200 mg cap Take 200 mg by mouth as needed. 0 Suspended Comment on above: Take 200 mg by mouth as needed. Lactobac no.41/Bifidobact no.7 (PROBIOTIC-10 ORAL) (3 sources) Start: 09-22-19 Lactobac no.41/Bifidobact no.7 (PROBIOTIC-10 ORAL) levoFLOXacin 500 mg oral tablet (20 sources) Quinolone Antimicrobial Start: 07-18-20 take 1 tablet by mouth once daily [...] capsule (3 sources) take 1 capsule by mouth once daily Multivitamin capsule Take 1 capsule by mouth once daily. 0 Suspended Comment on above: Take 1 capsule by mo [place] once daily. OLANZapine 2.5 mg oral tablet (19 sources) Atypical Antipsychotic Start: 2022 take 1 tablet by mouth once daily at bedtime OLANZapine (ZYPREXA) 2.5 mg tablet Take 1 tablet by mouth daily at bedtime. 30 tablet 0 06/07/2023 Active Comment on above: Take 1 tablet by teto th daily at bedtime. omeprazole 20 mg delayed release oral capsule (20 sources) Proton Pump Inhibitor Start: 2022 take 1 capsule by mouth once daily [...] 9 mg/ml prefilled syringe (19 sources) Start: 2022 inject 10 mL intravenously once daily, then [...] neoplasm of breast] Onset: 10-17-2017 10-17-2017 Episodic Deficiency and other anemia (20 sources) Pancytopenia; Translations: [Other pancytopenia] Onset: 05-29-2023 05-31-2023 Chronic Deficiency and other anemia (1 source) Other pancytopenia; Translations: [Pancytopenia (HCC)] Onset: 07-18-2023 Chronic Immunity disorders (20 sources) Patient immunocompromised; Translations: [...] [Diarrhea, unspecified] Onset: 05-31-2023 05-31-2023 Episodic Other lower respiratory disease (1 source) Other nonspecific abnormal finding of lung field; Translations: [Lung nodules] Onset: 08-30-2023 Episodic Other nervous system disorders (1 source) Acute postoperative pain; Translations: [Other acute postprocedural pain] Episodic Other nervous system disorders (1 source) Other acute postprocedural pain; Translations: [Other acute postprocedural pain] Onset: 12-22-2022 Episodic Other nutritional; endocrine; and metabolic disorders (20 sources) Body mass index 40+ - severely obese; Translations: [Morbid (severe) obesity due to excess calories] Onset: 05-30-2023 05-31-2023 Chronic Regional enteritis and ulcerative colitis (1 source) Crohn's disease of large intestine without complications; Translations: [Segmental colitis without complication (HCC)] Onset: 08-30-2023 Chronic Residual codes; unclassified (11 sources) At risk of disease; Translations: [Other specified personal risk factors, not elsewhere classified] Onset: 07-14-2023 07-18-2023 Episodic Viral infection (4 sources) COVID-19; Translations: [COVID-19] Onset: 08-11-2021 Past or Other Problems Problem Classification Problem Date Documented Da te Episodic/Chronic Complications of surgical procedures or medical care (20 sources) Infection associated with totally implantable venous access device; Translations: [Unspecified infection due to central venous catheter, initial encounter] Onset: 05-28-2023 05-28-2023 Episodic Fever of unknown origin (1 source) Fever, unspecified; Translations: [Fever, unspecified fever cause] Onset: 05-28-2023 Episodic Other bone disease and musculoskeletal deformities (20 sources) Osteopenia; Translations: [Other specified disorders of bone density and structure, unspecified site] Onset: 06-15-2016 06-15-2016 Episodic Other lower respiratory disease (20 sources) Nodule of lung; Translations: [Solitary pulmonary nodule] Onset: 09-29-2013 09-29-2013 Episodic Skin and subcutaneous tissue infections (1 source) Cellulitis of chest wall; Translations: [Cellulitis of chest wall] Onset: 05-28-2023 Episodic Results Test Name Value Interpretation Reference Range Facility CNPNon 09-19-2023 CNPN Normal [facility] CNPNon 09-13-2023 CNPN Normal [facility] CNSWon 09-13-2023 CNSW Normal [facility] CNPNon 09-06-2023 CNPN Normal [facility] ACUTE LEUKEMIA NGS PANEL, ZEENAT NE MARROWon 08-30-2023 ACUTE LEUK NGS PANEL, BONE MARROW Normal [facility] Comment on above: Order Comment: Order ing Facility: [facility] Address: [address] [place] [address] Result Comment: Acut e Leukemia NGS Panel, Bone MarrowLaboratory Accession Number: [id number]:Please see linked document and/or separate report for full result whenavailable.As reviewed by Leslye Ha MD, PhD Performed By: #### F 3IM, HDMNGS ####[facility] LIMSCLIA [id number] [address] [address], [place] [address] [place] [facility] AML MRD BY FCon 08-30-2023 AML MRD BY FC View results in Scan talia Documents link when available. Normal [facility] Comment on above: Order Comment: Speci men Type: BONE MARROW SPECIMENOrdering Facility: [facility] Address: [address] [place] [address] Performed By: #### A MLMRD ####[facility] MOLECULAR MICROCLIA [id number] [place] [address] BONE MARROW ANALYSISon 08-30 ADDENDUM 1: Normal [facility] Comment on above: Order Comment: Speci men Type: BONE MARROW SPECIMENOrdering Facility: [facility] Address: [address] [place] [address] Result Comment: Markus tional stains were performed to further clarify the morphologic findings. They are somewhat challenging for interpretation due to disruption of the biopsy. The CD34 stain shows increased blasts at least focally where evaluable. CD117 shows interspersed mast cells. CD61 is limited for interpretation due to artifact. A p53 stain shows increased positivity consistent with the patient's known TP53 mutation. The diagnosis remains unchanged. Correlation with forthcoming ancillary testing recommended.Addendum electronically signed by Phyllis Montanez MD, PhD on 09/05/2023 at 4:58 PM Performed By: #### B MRT ####[facility] LABIA [id number] [address] ADDENDUM 2: Normal [facility] Comment on above: Order Comment: Speci men Type: BONE MARROW SPECIMENOrdering Facility: [facility] Address: [address] [place] [address] Result Comment: Stai ns were performed on both block B1, as described in the prior addendum, and block C1. The CD34 stain on block C1 shows increased staining, at least 10% of cellularity. The diagnosis remains unchanged.Addendum electronically signed by Phyllis Montanez MD, PhD on 09/05/2023 at 5:09 PM Performed By: #### B MRT ####[facility] LABIA [id number] [address] ADDENDUM 3: Normal [facility] Comment on above: Order Comment: Speci men Type: BONE MARROW SPECIMENOrdering Facility: [facility] Address: [address] [place] [address] Result Comment: Mole cular testing demonstrates the following mutations consistent with persistent involvement by the patient's known myeloid neoplasm. Flow cytometry MRD testing performed outside shows an abnormal myeloid blast population comprising ~6% of white cells.JTOZ0Ig.R635W, NM_022552.4, c.1903C>TVAF: 17.3%RUNX1p.F40Wfs*14, NM_001754.4, c.119_173del55VAF: 9.4%TP53p.C238Y, NM_000546.5, c.713G>AVAF: 27.7%Addendum electronically signed by Phyllis Montanez MD, PhD on 09/10/2023 at 7:16 PM Performed By: #### B MRT ####[facility] LABCLIA [id number] [address] STATES [place] CASE REPORT Normal [facility] Comment on above: Order Comment: Speci men Type: BONE MARROW SPECIMENOrdering Facility: [facility] Address: [address] [place] [address] Result Comment: Bone Marrow Pathology Report Case: [id number] Provider: Mike Hughes MD Collected: 08/30/2023 09:12 AMOrdering Location: Hematology/Oncology Received: 08/30/2023 09:41 AMPathologist: Phyllis Montanez MD, PhDSpecimens: A) - BONE MARROW ASPIRATE RIGHT POSTERIOR ILIAC CREST B) - BONE MARROW BIOPSY RIGHT POSTERIOR ILIAC CREST C) - BONE MARROW CLOT RIGHT POSTERIOR ILIAC CREST Performed By: #### B MRT ####[facility] LABCLIA [id number] OF [place] DIAGNOSIS COMMENT Normal [facility] Comment on above: Order Comment: Speci men Type: BONE MARROW SPECIMENOrdering Facility: [facility] Address: [address] [place] [address] Result Comment: The patient is a 68-year-old female with history of acute myeloid leukemia with mutated TP53, therapy-related (ICC 2021), status post therapy.The findings are consistent with persistent involvement by the patient's known acute myeloid leukemia. Preliminary findings were discussed by phone with Dr. Hughes on 08/31/23. Please correlate with forthcoming stains and ancillary testing.Laboratory Developed Test (LDT) Disclaimer:Performance characteristics of immunohistochemical, immunofluorescent and chromogenic in-situ hybridization tests have been determined by the performing laboratory within [facility]???s [facility] [place] ([facility], [facility], [facility], [facility], [facility], [facility], or [facility]) in a manner consistent with CLIA requirements. One or more of these tests have not been cleared or approved by the FDA. [facility] is regulated under CLIA as qualified to perform high-complexity testing. These tests are used for clinical purposes. They should not be regarded as investigational or for research. Positive and negative controls stain appropriately. Performed By: #### B MRT ####[facility] LABIA [id number] [address] [place] FINAL DIAGNOSIS Normal [facility] Comment on above: Order Comment: Speci men Type: BONE MARROW SPECIMENOrdering Facility: [facility] Address: [address] [place] [address] Result Comment: A-C. Bone marrow aspirate smears, touch imprints, core biopsy and clot section:-Persistent involvement by acute myeloid leukemia, pending stains and ancillary testing.-See comment.[facility] August 31, 2023 Performed By: #### B MRT ####[facility] LABIA [id number] [address] STATES OF [facility] FINAL PERFORMING LAB Normal [facility] Comment on above: Order Comment: Speci men Type: BONE MARROW SPECIMENOrdering Facility: [facility] Address: [address] [place] [address] Result Comment: Diag nostic interpretation performed at [facility], [address] [address] CLIA# [id number] Director: Boris Wood M.D. Performed By: #### B MRT ####[facility] LABIA [id number] [address] [place] GROSS DESCRIPTION Normal [facility] Comment on above: Order Comment: Rochellei luz Type: BONE MARROW SPECIMENOrdering Facility: [facility] Address: [address] [place] [address] Result Comment: A. B ONE MARROW ASPIRATE RIGHT POSTERIOR ILIAC CRESTReceived are air-dried bone marrow aspirate smears. Submitted for light microscopy.B. BONE MARROW BIOPSY RIGHT POSTERIOR ILIAC CRESTReceived in formalin is one segment of cylindrical tissue measuring 1.5 x 0.3 x 0.3 cm, payne-brown and of a firm consistency. Totally submitted in formalin in one cassette after decalcification.C. BONE MARROW CLOT RIGHT POSTERIOR ILIAC CRESTReceived in formalin is a segment of red-brown hemorrhagic material measuring 1.8 x 1.7 x 0.7 cm. Totally submitted in one cassette.Gross examination performed at [facility], [address] [id number] August 30, 2023 6:48 PM Performed By: #### B MRT ####[facility] LABCLIA [id number] [facility] [id number] [place] MICROSCOPIC DESCRIPTION Normal [facility] Comment on above: Order Comment: Speci men Type: BONE MARROW SPECIMENOrdering Facility: [facility] Address: [address] [place] [address] Result Comment: GENNY PHERAL BLOOD: Not providedBONE MARROW ASPIRATE:Result Normal Range12 % Blasts 0-20 % Promyelocytes 1-54 % Myelos/Metas/Bands/Segs 32-720 % Eosinophils 1-61 % Basophils 0-110 % Monocytes 0-421 % Erythroid precursors 13-3751 % Lymphocytes 7-231 % Plasma cells 0-2 Myeloid/Erythro (1.5-4): Count not reliable due to naked nuclei. Cells counted: 300. Iron stain result: Storage iron present. Specimen Quality: Paucispicular. Partially limited by staining artifact with many naked nuclei. Megakaryocytes: Limited for evaluation. Erythropoiesis: Maturation with megaloblastoid change. Granulopoiesis: Limited myeloid maturation. Other: Increased blasts, but extensive staining artifact may underestimate the frequency.BONE MARROW BIOPSY: Adequacy: Adequate but suboptimal due to small size and crush artifact. Cellularity: Patchy, hypocellular with focal areas of up to 30% cellularity. ME ratio: Cannot assess. Hematopoiesis: Decreased, limited myeloid maturation. Erythroid islands present. Megakaryocytes: Decreased. Megakaryocyte morphology: Limited for morphologic evaluation. Lymphoid infiltrate: Small lymphoid cells present. Bone trabeculae: Fragmented. Other: Additional stains are pending to further clarify the morphologic findings and characterize the blast frequency. The stains will be reported as an addendum.CLOT SECTION: Marrow particles: Present. Morphology: Slightly better than core biopsy with more cellular areas, 30 to 40%. Focal erythroid islands, mature lymphoid and plasma cells as well as increased immature forms are present. Other: A CD34 stain is pending to further clarify the morphologic findings.ANCILLARY TESTS: Flow cytometry: Performed, AML MRD by flow cytometry pending. Cytogenetics: Pending. FISH: Not performed. Molecular: Acute leukemia NGS panel pending. Performed By: #### B MRT ####[facility] LABCLIA [id number] [address] [place] BONE MARROW CHROMOSOME ANALo n 08-30-2023 CHROMOSOME BM Normal [facility] Comment on above: Order Comment: Order ing Facility: [facility] Address: [address] [place] [address] Result Comment: Edel knight Accession Number: [id number]: Avila MoorePathologist: Jeet Pathology No: [id number] diagnosis: AMLSpecimen Type: Bone MarrowReceived Date: 08/30/2023Number of cells counted: 20Number of cells analyzed: 20Number of cells karyotyped: 20Banding resolution: 400Banding method: G-bandingDIAGNOSIS: 42~44,XX,-5,-11[12],-12,del(13)(q12q14),-16[9],+1-3mar[13][cp14]/46, XX[6]INTERPRETATION: Abnormal, female karyotypeCOMMENT: Ten metaphase cells were analyzed from the culturesupplemented with GM-CSF and ten metaphase cells were analyzed fromthe 24 hour unstimulated culture. A mixture of apparently normal cellsand an abnormal clone was observed. Six out of the 20 cells analyzedshowed a 46,XX karyotype or had random chromosomal loss or non-clonal(single cell) structural changes, attributed to culture artifact. Inthe remaining fourteen cells, there was an abnormal clone for which acomposite karyotype could be written, characterized by multiplenumeric and structural rearrangements as described, including loss ofone copy of chromosomes 5, 11, 12, and 16, gain of several markerchromosomes, and an interstitial deletion of the long arm of onechromosome 13 with breakpoints in bands q12 and q14.The presence of an abnormal clone is cytogenetic evidence forpersistent disease. Previous studies in May and June 2023shared some, but not all, of the changes observed in the currentstudy. The complexity of the karyotype is an unfavorable prognosticfeature.Clinical and pathologic correlation is recommended.As reviewed by Dilan Frazier MDPerformed by [facility] System[facility]ology and Laboratory Medicine InstituteDivision of Molecular PathologyCytogenetics Lab, [id number] [place], [place] [address]Phone: Toll free: Performed By: #### C HRBMH ####[facility] LIMSCLIA [id number] [place] [address] [place] BRIEF OP NOTon 08-30-2023 BRIEF OP NOT Normal [facility] CT ABD/PEL WO IVCONon 2022 CT ABD/PEL WO IVCON Normal [facility] CT BIOPSY BONE MARROW (HEMO) on 08-30-2023 CT BIOPSY BONE MARROW (HEMO) Normal [facility] CT CHEST WO IVCONon 08-30-20 CT CHEST WO IVCON Normal [facility] DNA EXTRACTION BONE MARROW ( BUFFY COAT)on 08-30-2023 DNA EXTRACTION BONE MARROW (BUFFY COAT) Normal [facility] Comment on above: Order Comment: Speci men Type: BONE MARROW SPECIMENOrdering Facility: [facility] Address: [address] [place] [address] [place] [address] Result Comment: This specimen was received and successfully processed for future DNA purification should molecular testing be needed. Specimens will be available for 3 years from date of collection.To order testing on this specimen for [facility] patients, please place an [facility] order for DNA and RNA Clinical Testing ([id number]). To order testing for patients outside of the [facility] system, please request DNA and RNA for Clinical Testing, order code [id number].If additional paperwork is required for testing, please send completed forms via secure email to . Performed By: #### N UCBUF ####[facility] I[facility] LIMSCLIA [id number] [address] [place] FLOW CYTOMETRY FOR LEUKEMIA/ LYMPHOMA (FCLL) PERFORMABLEon 08-30-2023 FLOW CYTOMETRY ORDER STATUS See Results in chart under F case ID Normal [facility] Comment on above: Order Comment: Speci men Type: BONE MARROW SPECIMENOrdering Facility: [facility] Address: [address] [place] [address] Performed By: #### F CLLP, FCLLRFLX ####[facility] LABCLIA [id number] [place] [address] [place] FLOW CYTOMETRY FOR LEUKEMIA/ LYMPHOMA (FCLL) REFLEXon 08-30-2023 DIAGNOSIS COMMENT Normal [facility] Comment on above: Order Comment: Speci men Type: BONE MARROW SPECIMENOrdering Facility: [facility] Address: [address] [place] [address] Result Comment: This test was developed and its performance characteristics determined by [facility] [place] ([facility]). It has not been cleared or approved by the FDA. [facility] is regulated under CLIA as qualified to perform high-complexity testing. This test is used for clinical purposes. It should not be regarded as investigational or for research. Performed By: #### F CLLP, FCLLRFLX ####[facility] LABCLIA [id number] [place] [address] [place] FINAL PERFORMING LAB Normal [facility] Comment on above: Order Comment: Speci men Type: BONE MARROW SPECIMENOrdering Facility: [facility] Address: [address] [place] [address] Result Comment: Diag nostic interpretation performed at [facility], [address] [address] CLIA# [id number] Director: Boris Wood M.D. Performed By: #### F CLLP, FCLLRFLX ####[facility] LABCLIA [id number] [place] [address] [place] FLOW CYTOMETRY RESULTS Normal [facility] Comment on above: Order Comment: Speci men Type: BONE MARROW SPECIMENOrdering Facility: [facility] Address: [address] [place] [address] Result Comment: Spec imen type: Bone marrow aspirateViability: 96%Results: % total eventsLymphocyte gate: 66Granulocyte gate: 5Monocyte gate: 1Blast gate: 6Flow Cytometry Bone Marrow ImmunophenotypingMarker Normal Cell Type Result (Blasts)CD2 T/NK cells NegativeCD3 T-cells NegativeCD4 T-cell subset NegativeCD5 T-cells NegativeCD7 T/NK-cells Dim (subset)CD8 T-cell subset EedenfunNA89 B-cell subset UqdxisfiXA70k Myeloid XdzfuwwuEO92 Myeloid YfhvyhjzFP10 Monocytes XngqzkqzDD56 Myeloid WhbmqkykRM71 B-cells YkeoyluyVU24 B-cells HidtjrvoRZ54 B-cells NgaerwndVU32 Myeloid YdsnvvyjQG49 Blasts EokujfodTN03 Activation MjksgunlGS17 Hough-leukocyte Positive (dim)CD56 T/NK-cells HwsrdzoiDM13 Myeloid ZoggmwviOU21 Myeloid WqabbnldGX982 Blasts Positive (subset)HLA-DR B-cells Positivekappa/lambda B-cells NegativeFlow cytometric analysis of the bone marrow aspirate reveals that 6% of total events have the CD45 and side-scatter properties of blasts.The blasts are myeloid and have the following immunophenotype: positive for CD13, CD33, CD38, CD45, CD117 and HLA-DR. There are very limited maturing myeloid events.Lymphocytes are 66% of total events by CD45 and side scatter characteristics. The lymphocytes are composed of a mixture of T-cells (94%; CD4:CD8 ratio = 0.94) and NK cells (6%). Only rare B cells are detected, less than 1%, which appear polytypic. A subset of T cells show relatively dim CD7 and dim CD5 and may represent a reactive population but are not further characterized on this assay. Performed By: #### F CLLP, FCLLRFLX ####[facility] LABCLIA [id number] [facility] [place] [address] [place] GROSS DESCRIPTION A. Bone Marrow Normal [facility] Comment on above: Order Comment: Speci men Type: BONE MARROW SPECIMENOrdering Facility: [facility] Address: [address] [place] [address] Result Comment: Rece ived 1 mL of bone marrow in heparin. Clots removed. Performed By: #### F CLLP, FCLLRFLX ####[facility] LABCLIA [id number] [place] [address] [place] INTERPRETATION Normal [facility] Comment on above: Order Comment: Speci luz Type: BONE MARROW SPECIMENOrdering Facility: [facility] Address: [address] [place] [address] Result Comment: An i ncreased, atypical myeloid blast population is identified. 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 The phenotype is similar to that previously described by flow cytometry with expression of CD34, subset with CD7, and positive for CD13, CD33, CD38, CD117 and HLA-DR.Correlation with the clinical and bone marrow histopathologic findings is suggested.[facility]/RB 08/30/2023 Performed By: #### F CLLP, FCLLRFLX ####[facility] LABCLIA [id number] [place] [address] [place] FLT3 ITD HN BONE MARROWon CLARITY SIGNOUT PATHOLOGIST [id number] Normal [facility] Comment on above: Order Comment: Speci luz Type: BONE MARROW SPECIMENOrdering Facility: [facility] Address: [address] [place] [address] Performed By: #### F 3I, [facility] ####[facility] ILLUMINA LIMSCLIA [id number] [place] [address] [place] FLT3 ITD HN PANEL BONE MARROW Normal [facility] Comment on above: Order Comment: Speci luz Type: BONE MARROW SPECIMENOrdering Facility: [facility] Address: [address] [place] [address] Result Comment: FLT3 Internal Tandem Duplication (ITD) Mutation TestingLaboratory Accession Number: [id number] Internal Tandem Duplication (ITD) mutation: Not DetectedComment:FLT3/ITD [...] from the specimen provided. Regions of the NXY3tiemxnhv kinase receptor gene are subjected to the polymerase chainreaction (PCR) using fluorescently labeled forward PCR primers. PCRproducts are analyzed by capillary gel electrophoresis for in-framelength mutations (ITD mutations). This assay can detect [...] within myeloid neoplasms.References:1) Veda MP, Lisbeth P, Tiasharadi E, et al. Mutational landscapeof AML with normal cytogenetics: biological and clinical implications.Blood Rev.2013;27:13-22.2) Juan KRISHNA, Ros M, Aly ME, et al. Prognostic relevance ofintegrated genetic profiling in acute myeloid leukemia. N Engl J Med.2012 Nov 22;366 (12):1079-89.3) Cristianer H, Dee E, Sharon D, et al. Diagnosis and mangement ofAML in adults: 2017 ELN recommendations from an international expertpanel. Blood [phone],[phone] (2017).Disclaimer:This test was developed and its performance characteristics determinedby [facility] Path[facility] LaboratoryMedicine [facility] ([facility] CORPORATIONPLWA). It has not been cleared or approved bythe FDA. RT-PLMI is regulated under CLIA as certified to perform high-complexity testing. This test is used for clinical purposes. It shouldnot be regarded as investigational or for research.Testing and interpretation performed at [facility], [address] [place] [address]. CLIA Number: [id number] reviewed by Mihaela Flowers MD Performed By: #### F 3IM, HDMNGS ####[facility] ILLUMINA LIMSCLIA [id number] [address] [place] HISTORY PHYSICALon HISTORY PHYSICAL Normal [facility] NURSING PROGon 08-30-2023 NURSING PROG Normal [facility] PT EDon 08-30-2023 PT ED Normal [facility] CNPNon 08-22-2023 CNPN Normal [facility] NURSING PROGon 08-22-2023 NURSING PROG Normal [facility] CNPNon 08-20-2023 CNPN Normal [facility] CNCOon 08-15-2023 CNCO Clinical report post ed in error Void Comment: BMT CALENDAR Letter Text Letter Text Normal [facility] CNPNon 08-15-2023 CNPN Normal [facility] CNSWon 08-15-2023 CNSW Normal [facility] CNPNon 08-13-2023 CNPN Normal [facility] CNPNon 08-09-2023 CNPN Normal [facility] CNPNon 08-08-2023 CNPN Normal [facility] CNPNon 08-07-2023 CNPN Normal [facility] CNCOon 08-06-2023 CNCO Clinical report post ed in error Void Comment: HPC Transplant LMN Letter Text Letter Text Normal [facility] CNCO Letter Text Normal [facility] CASE MANAGEMon 07-18-2023 CASE MANAGEM Normal [facility] CBC W Auto Differential pane l (Bld)on 07-18-2023 Basophils (Bld) [#/Vol] Normal [facility] Comment on above: Order Comment: Speci men Type: BLOOD SPECIMENOrdering Facility: [facility] Address: [address] [place] [address] Result Comment: Too Few Cells To Do Differential. Performed By: #### 5 7021-8 ####[facility] LABCLIA [id number] [place] [address] [place] Basophils/100 WBC (Bld) Normal [facility] Comment on above: Order Comment: Speci men Type: BLOOD SPECIMENOrdering Facility: [facility] Address: [address] [place] [address] Result Comment: Too Few Cells To Do Differential. Performed By: #### 5 7021-8 ####[facility] LABCLIA [id number] [place] [address] [place] Differential cell count method Nom (Bld) Auto Normal [facility] Comment on above: Order Comment: Speci men Type: BLOOD SPECIMENOrdering Facility: [facility] Address: [address] [place] [address] Performed By: #### 5 7021-8 ####[facility] LABCLIA [id number] [place] [address] [place] Eosinophils (Bld) [#/Vol] Normal [facility] Comment on above: Order Comment: Speci men Type: BLOOD SPECIMENOrdering Facility: [facility] Address: [address] [place] [address] Result Comment: Too Few Cells To Do Differential. Performed By: #### 5 7021-8 ####[facility] LABCLIA [id number] [place] [address] [place] Eosinophils/100 WBC (Bld) Normal [facility] Comment on above: Order Comment: Speci men Type: BLOOD SPECIMENOrdering Facility: [facility] Address: [address] [place] [address] Result Comment: Too Few Cells To Do Differential. Performed By: #### 5 7021-8 ####[facility] LABCLIA [id number] [place] [address] [place] Erythrocyte distribution width (RBC) [Ratio] 15.8 % High 11.5-15.0 [facility] Comment on above: Order Comment: Speci men Type: BLOOD SPECIMENOrdering Facility: [facility] Address: [address] [place] [address] Performed By: #### 5 7021-8 ####[facility] LABIA [id number] [place] [address] [place] Hematocrit (Bld) [Volume fraction] 22.8 % Low 36.0-46.0 [facility] Comment on above: Order Comment: Speci men Type: BLOOD SPECIMENOrdering Facility: [facility] Address: [address] [place] [address] Performed By: #### 5 7021-8 ####[facility] LABIA [id number] [place] [address] [place] Hemoglobin (Bld) [Mass/Vol] 7.8 g/dL Low 11.5-15.5 [facility] Comment on above: Order Comment: Speci men Type: BLOOD SPECIMENOrdering Facility: [facility] Address: [address] [place] [address] Performed By: #### 5 7021-8 ####[facility] LABIA [id number] [place] [address] [place] Immature granulocytes (Bld) [#/Vol] Normal [facility] Comment on above: Order Comment: Speci men Type: BLOOD SPECIMENOrdering Facility: [facility] Address: [address] [place] [address] Result Comment: Too Few Cells To Do Differential. Performed By: #### 5 7021-8 ####[facility] LABIA [id number] [place] [address] [place] Immature granulocytes/100 WBC (Bld) Normal [facility] Comment on above: Order Comment: Speci men Type: BLOOD SPECIMENOrdering Facility: [facility] Address: [address] [place] [address] Result Comment: Too Few Cells To Do Differential. Performed By: #### 5 7021-8 ####[facility] LABCLIA [id number] [place] [address] [place] Lymphocytes (Bld) [#/Vol] Normal [facility] Comment on above: Order Comment: Speci men Type: BLOOD SPECIMENOrdering Facility: [facility] Address: [address] [place] [address] Result Comment: Too Few Cells To Do Differential. Performed By: #### 5 7021-8 ####[facility] LABCLIA [id number] [place] [address] [place] Lymphocytes/100 WBC (Bld) Normal [facility] Comment on above: Order Comment: Speci men Type: BLOOD SPECIMENOrdering Facility: [facility] Address: [address] [place] [address] Result Comment: Too Few Cells To Do Differential. Performed By: #### 5 7021-8 ####[facility] LABIA [id number] [place] [address] [place] MCH (RBC) [Entitic mass] 30.1 pg Normal 26.0-34.0 [facility] Comment on above: Order Comment: Speci men Type: BLOOD SPECIMENOrdering Facility: [facility] Address: [address] [place] [address] Performed By: #### 5 7021-8 ####[facility] LABIA [id number] [place] [address] [place] MCHC (RBC) [Mass/Vol] 34.2 g/dL Normal 30.5-36.0 [facility] Comment on above: Order Comment: Speci men Type: BLOOD SPECIMENOrdering Facility: [facility] Address: [address] [place] [address] Performed By: #### 5 7021-8 ####[facility] LABIA [id number] [place] [address] [place] MCV (RBC) [Entitic vol] 88.0 fL Normal 80.0-100.0 [facility] Comment on above: Order Comment: Speci men Type: BLOOD SPECIMENOrdering Facility: [facility] Address: [address] [place] [address] Performed By: #### 5 7021-8 ####[facility] LABCLIA [id number] [place] [address] [place] Monocytes (Bld) [#/Vol] Normal [facility] Comment on above: Order Comment: Speci men Type: BLOOD SPECIMENOrdering Facility: [facility] Address: [address] [place] [address] Result Comment: Too Few Cells To Do Differential. Performed By: #### 5 7021-8 ####[facility] LABCLIA [id number] [place] [address] [place] Monocytes/100 WBC (Bld) Normal [facility] Comment on above: Order Comment: Speci men Type: BLOOD SPECIMENOrdering Facility: [facility] Address: [address] [place] [address] Result Comment: Too Few Cells To Do Differential. Performed By: #### 5 7021-8 ####[facility] LABCLIA [id number] [place] [address] [place] Neutrophils (Bld) [#/Vol] Normal [facility] Comment on above: Order Comment: Speci men Type: BLOOD SPECIMENOrdering Facility: [facility] Address: [address] [place] [address] Result Comment: Too Few Cells To Do Differential. Performed By: #### 5 7021-8 ####[facility] LABCLIA [id number] [place] [address] [place] Neutrophils/100 WBC (Bld) Normal [facility] Comment on above: Order Comment: Speci men Type: BLOOD SPECIMENOrdering Facility: [facility] Address: [address] [place] [address] Result Comment: Too Few Cells To Do Differential. Performed By: #### 5 7021-8 ####[facility] LABCLIA [id number] [place] [address] [place] Nucleated RBC (Bld) [#/Vol] 10*3/uL Normal <0.01 [facility] Comment on above: Order Comment: Speci men Type: BLOOD SPECIMENOrdering Facility: [facility] Address: [address] [place] [address] Performed By: #### 5 7021-8 ####[facility] LABIA [id number] [place] [address] [place] Nucleated RBC/100 WBC (Bld) [Ratio] 0.0 /100 WBC Normal [facility] Comment on above: Order Comment: Speci men Type: BLOOD SPECIMENOrdering Facility: [facility] Address: [address] [place] [address] Performed By: #### 5 7021-8 ####[facility] LABIA [id number] [place] [address] [place] Platelet mean volume (Bld) [Entitic vol] Normal [facility] Comment on above: Order Comment: Speci men Type: BLOOD SPECIMENOrdering Facility: [facility] Address: [address] [place] [address] Result Comment: Unab le to Report. Performed By: #### 5 7021-8 ####[facility] LABIA [id number] [place] [address] [place] Platelets (Bld) [#/Vol] 18 10*3/uL Low 150-400 [facility] Comment on above: Order Comment: Speci men Type: BLOOD SPECIMENOrdering Facility: [facility] Address: [address] [place] [address] Result Comment: Resu lts checked and verified.No clot detected. Performed By: #### 5 7021-8 ####[facility] LABCLIA [id number] [place] [address] [place] RBC (Bld) [#/Vol] 2.59 10*6/uL Low 3.90-5.20 [facility] Comment on above: Order Comment: Speci men Type: BLOOD SPECIMENOrdering Facility: [facility] Address: [address] [place] [address] Performed By: #### 5 7021-8 ####[facility] LABCLIA [id number] [place] [address] [place] WBC (Bld) [#/Vol] 0.47 10*3/uL Low 3.70-11.00 [facility] Comment on above: Order Comment: Speci men Type: BLOOD SPECIMENOrdering Facility: [facility] Address: [address] [place] [address] Result Comment: No c lot detected. Too Few Cells To Do Differential Performed By: #### 5 7021-8 ####[facility] LABCLIA [id number] [place] [address] [place] CNCOon 07-18-2023 CNCO Letter Text Normal [facility] CNDSon 07-18-2023 CNDS Normal [facility] CONSULT PROGon 07-18-2023 CONSULT PROG Normal [facility] Comprehensive metabolic 2000 panelon 07-18-2023 Albumin [Mass/Vol] 2.3 g/dL Low 3.9-4.9 [facility] Comment on above: Order Comment: Speci men Type: BLOOD SPECIMENOrdering Facility: [facility] Address: [address] [place] [address] Performed By: #### 2 4323-8, 38424-8 ####[facility] LABIA [id number] [place] [address] [place] ALP [Catalytic activity/Vol] 50 U/L Normal 34-123 [facility] Comment on above: Order Comment: Speci men Type: BLOOD SPECIMENOrdering Facility: [facility] Address: [address] [place] [address] Performed By: #### 2 432-8, ####[facility] LABCLIA [id number] [address] [address] [place] ALT [Catalytic activity/Vol] 14 U/L Normal 7-38 [facility] Comment on above: Order Comment: Speci men Type: BLOOD SPECIMENOrdering Facility: [facility] Address: [address] [place] [address] Performed By: #### 2 8, ####[facility] LABCLIA [id number] [place] [address] [place] Anion gap [Moles/Vol] 8 mmol/L Low 9-18 [facility] Comment on above: Order Comment: Speci men Type: BLOOD SPECIMENOrdering Facility: [facility] Address: [address] [place] [address] Performed By: #### 2 4323-04, ####[facility] LABCLIA [id number] [place] [address] [place] AST [Catalytic activity/Vol] 14 U/L Normal 13-35 [facility] Comment on above: Order Comment: Speci men Type: BLOOD SPECIMENOrdering Facility: [facility] Address: [address] [place] [address] Performed By: #### 2 8, ####[facility] LABCLIA [id number] [place] [address] [place] Bilirubin [Mass/Vol] 0.3 mg/dL Normal 0.2-1.3 [facility] Comment on above: Order Comment: Speci men Type: BLOOD SPECIMENOrdering Facility: [facility] Address: [address] [place] [address] Performed By: #### 2 432-8, ####[facility] LABCLIA [id number] [place] [id number] [place] Calcium [Mass/Vol] 7.2 mg/dL Low 8.5-10.2 [facility] Comment on above: Order Comment: Speci men Type: BLOOD SPECIMENOrdering Facility: [facility] Address: [address] [place] [address] Performed By: #### 2 432-8, ####[facility] LABCLIA [id number] [place] [address] [place] Chloride [Moles/Vol] 110 mmol/L High 97-105 [facility] Comment on above: Order Comment: Speci men Type: BLOOD SPECIMENOrdering Facility: [facility] Address: [address] [place] [address] Performed By: #### 2 8, ####[facility] LABCLIA [id number] [place] [address] [place] CO2 [Moles/Vol] 23 mmol/L Normal 22-30 [facility] Comment on above: Order Comment: Speci men Type: BLOOD SPECIMENOrdering Facility: [facility] Address: [address] [place] [address] Performed By: #### 2 4323-04, ####[facility] LABCLIA [id number] [place] [address] [place] Creatinine [Mass/Vol] 0.66 mg/dL Normal 0.58-0.96 [facility] Comment on above: Order Comment: Speci men Type: BLOOD SPECIMENOrdering Facility: [facility] Address: [address] [place] [address] Performed By: #### 2 4322-8, ####[facility] LABCLIA [id number] [place] [address] [place] Creatinine and Glomerular filtration rate.predicted panel (S/P/Bld) 95 mL/min/1.73m??? Normal >=60 [facility] Comment on above: Order Comment: Speci men Type: BLOOD SPECIMENOrdering Facility: [facility] Address: [address] [place] [address] Result Comment: Berenice mated Glomerular Filtration Rate [...] actual GFR. Performed By: #### 2 4323-8, ####[facility] LABIA [id number] [place] [address] [place] Glucose [Mass/Vol] 85 mg/dL Normal 74-99 [facility] Comment on above: Order Comment: Elvia escobar Type: BLOOD SPECIMENOrdering Facility: [facility] Address: [address] [place] [address] Result Comment: The [place] [employer] (ADA) provides guidance for cutoff [...] Standards of Medical Care in Diabetes 2016, [place] [employer]. Diabetes Care. 2016.39(Suppl 1). Performed By: #### 2 4323-8, ####[facility] LABIA [id number] [place] [id number] [place] Potassium [Moles/Vol] 2.9 mmol/L Low 3.7-5.1 [facility] Comment on above: Order Comment: Elvia escobar Type: BLOOD SPECIMENOrdering Facility: [facility] Address: [address] [place] [address] Performed By: #### 2 4323-8, ####[facility] LABCLIA [id number] [place] [address] [place] Protein [Mass/Vol] 4.1 g/dL Low 6.3-8.0 [facility] Comment on above: Order Comment: Speci men Type: BLOOD SPECIMENOrdering Facility: [facility] Address: [address] [place] [address] Performed By: #### 2 4322-8, ####[facility] LABCLIA [id number] [place] [address] [place] Sodium [Moles/Vol] 141 mmol/L Normal 136-144 [facility] Comment on above: Order Comment: Speci men Type: BLOOD SPECIMENOrdering Facility: [facility] Address: [address] [place] [address] Performed By: #### 2 4322-8, ####[facility] LABCLIA [id number] [place] [address] [place] Urea nitrogen [Mass/Vol] 5 mg/dL Low 7-21 [facility] Comment on above: Order Comment: Speci men Type: BLOOD SPECIMENOrdering Facility: [facility] Address: [address] [place] [address] Performed By: #### 2 4322-8, ####[facility] LABCLIA [id number] [place] [id number] [place] Magnesium SerPl-mCncon 07-18 Magnesium [Mass/Vol] 1.9 mg/dL Normal 1.7-2.3 [facility] Comment on above: Order Comment: Speci men Type: BLOOD SPECIMENOrdering Facility: [facility] Address: [address] [place] [address] Performed By: #### 2 4323-8, ####[facility] LABCLIA [id number] [place] [address] [place] POTASSIUM BLDon 07-18-2023 Potassium [Moles/Vol] 4.0 mmol/L Normal 3.7-5.1 [facility] Comment on above: Order Comment: Speci men Type: BLOOD SPECIMENOrdering Facility: [facility] Address: [address] [place] [address] Performed By: #### K 1 ####[facility] LABCLIA [id number] [place] [address] [place] CASE MGT INIT ASSESon 2022 CASE MGT INIT ASSES Normal [facility] CASE MGT INIT ASSES Normal [facility] CBC W Auto Differential pane l (Bld)on 07-17-2023 Basophils (Bld) [#/Vol] Normal [facility] Comment on above: Order Comment: Speci men Type: BLOOD SPECIMENOrdering Facility: [facility] Address: [address] [place] [address] Result Comment: Too Few Cells To Do Differential. Performed By: #### 5 7021-8 ####[facility] LABCLIA [id number] [place] [address] [place] Basophils/100 WBC (Bld) Normal [facility] Comment on above: Order Comment: Speci men Type: BLOOD SPECIMENOrdering Facility: [facility] Address: [address] [place] [address] Result Comment: Too Few Cells To Do Differential. Performed By: #### 5 7021-8 ####[facility] LABCLIA [id number] [place] [address] [place] Differential cell count method Nom (Bld) Auto Normal [facility] Comment on above: Order Comment: Speci men Type: BLOOD SPECIMENOrdering Facility: [facility] Address: [address] [place] [address] Performed By: #### 5 7021-8 ####[facility] LABCLIA [id number] [place] [address] [place] Eosinophils (Bld) [#/Vol] Normal [facility] Comment on above: Order Comment: Speci men Type: BLOOD SPECIMENOrdering Facility: [facility] Address: [address] [place] [address] Result Comment: Too Few Cells To Do Differential. Performed By: #### 5 7021-8 ####[facility] LABCLIA [id number] [place] [address] [place] Eosinophils/100 WBC (Bld) Normal [facility] Comment on above: Order Comment: Speci men Type: BLOOD SPECIMENOrdering Facility: [facility] Address: [address] [place] [address] Result Comment: Too Few Cells To Do Differential. Performed By: #### 5 7021-8 ####[facility] LABCLIA [id number] [place] [address] [place] Erythrocyte distribution width (RBC) [Ratio] 15.9 % High 11.5-15.0 [facility] Comment on above: Order Comment: Speci men Type: BLOOD SPECIMENOrdering Facility: [facility] Address: [address] [place] [address] Performed By: #### 5 7021-8 ####[facility] LABIA [id number] [place] [address] [place] Hematocrit (Bld) [Volume fraction] 23.0 % Low 36.0-46.0 [facility] Comment on above: Order Comment: Speci men Type: BLOOD SPECIMENOrdering Facility: [facility] Address: [address] [place] [address] Performed By: #### 5 7021-8 ####[facility] LABCLIA [id number] [place] [address] [place] Hemoglobin (Bld) [Mass/Vol] 7.9 g/dL Low 11.5-15.5 [facility] Comment on above: Order Comment: Speci men Type: BLOOD SPECIMENOrdering Facility: [facility] Address: [address] [place] [address] Performed By: #### 5 7021-8 ####[facility] LABCLIA [id number] [place] [address] [place] Immature granulocytes (Bld) [#/Vol] Normal [facility] Comment on above: Order Comment: Speci men Type: BLOOD SPECIMENOrdering Facility: [facility] Address: [address] [place] [address] Result Comment: Too Few Cells To Do Differential. Performed By: #### 5 7021-8 ####[facility] LABCLIA [id number] [place] [address] [place] Immature granulocytes/100 WBC (Bld) Normal [facility] Comment on above: Order Comment: Speci men Type: BLOOD SPECIMENOrdering Facility: [facility] Address: [address] [place] [address] Result Comment: Too Few Cells To Do Differential. Performed By: #### 5 7021-8 ####[facility] LABCLIA [id number] [place] [address] [place] Lymphocytes (Bld) [#/Vol] Normal [facility] Comment on above: Order Comment: Speci men Type: BLOOD SPECIMENOrdering Facility: [facility] Address: [address] [place] [address] Result Comment: Too Few Cells To Do Differential. Performed By: #### 5 7021-8 ####[facility] LABCLIA [id number] [place] [address] [place] Lymphocytes/100 WBC (Bld) Normal [facility] Comment on above: Order Comment: Speci men Type: BLOOD SPECIMENOrdering Facility: [facility] Address: [address] [place] [address] Result Comment: Too Few Cells To Do Differential. Performed By: #### 5 7021-8 ####[facility] LABCLIA [id number] [place] [address] [place] MCH (RBC) [Entitic mass] 29.9 pg Normal 26.0-34.0 [facility] Comment on above: Order Comment: Speci men Type: BLOOD SPECIMENOrdering Facility: [facility] Address: [address] [place] [address] Performed By: #### 5 7021-8 ####[facility] LABCLIA [id number] [place] [address] [place] MCHC (RBC) [Mass/Vol] 34.3 g/dL Normal 30.5-36.0 [facility] Comment on above: Order Comment: Speci men Type: BLOOD SPECIMENOrdering Facility: [facility] Address: [address] [place] [address] Performed By: #### 5 7021-8 ####[facility] LABIA [id number] [place] [address] [place] MCV (RBC) [Entitic vol] 87.1 fL Normal 80.0-100.0 [facility] Comment on above: Order Comment: Speci men Type: BLOOD SPECIMENOrdering Facility: [facility] Address: [address] [place] [address] Performed By: #### 5 7021-8 ####[facility] LABIA [id number] [place] [address] [place] Monocytes (Bld) [#/Vol] Normal [facility] Comment on above: Order Comment: Speci men Type: BLOOD SPECIMENOrdering Facility: [facility] Address: [address] [place] [address] Result Comment: Too Few Cells To Do Differential. Performed By: #### 5 7021-8 ####[facility] LABCLIA [id number] [place] [address] [place] Monocytes/100 WBC (Bld) Normal [facility] Comment on above: Order Comment: Speci men Type: BLOOD SPECIMENOrdering Facility: [facility] Address: [address] [place] [address] Result Comment: Too Few Cells To Do Differential. Performed By: #### 5 7021-8 ####[facility] LABCLIA [id number] [place] [address] [place] Neutrophils (Bld) [#/Vol] Normal [facility] Comment on above: Order Comment: Speci men Type: BLOOD SPECIMENOrdering Facility: [facility] Address: [address] [place] [address] Result Comment: Too Few Cells To Do Differential. Performed By: #### 5 7021-8 ####[facility] LABCLIA [id number] [place] [address] [place] Neutrophils/100 WBC (Bld) Normal [facility] Comment on above: Order Comment: Speci men Type: BLOOD SPECIMENOrdering Facility: [facility] Address: [address] [place] [address] Result Comment: Too Few Cells To Do Differential. Performed By: #### 5 7021-8 ####[facility] LABCLIA [id number] [place] [address] [place] Nucleated RBC (Bld) [#/Vol] 10*3/uL Normal <0.01 [facility] Comment on above: Order Comment: Speci men Type: BLOOD SPECIMENOrdering Facility: [facility] Address: [address] [place] [address] Performed By: #### 5 7021-8 ####[facility] LABCLIA [id number] [place] [address] [place] Nucleated RBC/100 WBC (Bld) [Ratio] 0.0 /100 WBC Normal [facility] Comment on above: Order Comment: Speci men Type: BLOOD SPECIMENOrdering Facility: [facility] Address: [address] [place] [address] Performed By: #### 5 7021-8 ####[facility] LABCLIA [id number] [place] [address] [place] Platelet mean volume (Bld) [Entitic vol] Normal [facility] Comment on above: Order Comment: Speci men Type: BLOOD SPECIMENOrdering Facility: [facility] Address: [address] [place] [address] Result Comment: Unab le to Report. Performed By: #### 5 7021-8 ####[facility] LABCLIA [id number] [place] [address] [place] Platelets (Bld) [#/Vol] 8 10*3/uL Critically low 150-400 [facility] Comment on above: Order Comment: Speci men Type: BLOOD SPECIMENOrdering Facility: [facility] Address: [address] [place] [address] Result Comment: Resu lts checked and verified.No clot detected. Performed By: #### 5 7021-8 ####[facility] LABIA [id number] [place] [address] [place] RBC (Bld) [#/Vol] 2.64 10*6/uL Low 3.90-5.20 [facility] Comment on above: Order Comment: Speci men Type: BLOOD SPECIMENOrdering Facility: [facility] Address: [address] [place] [address] Performed By: #### 5 7021-8 ####[facility] LABIA [id number] [place] [address] [place] WBC (Bld) [#/Vol] 0.48 10*3/uL Low 3.70-11.00 [facility] Comment on above: Order Comment: Speci men Type: BLOOD SPECIMENOrdering Facility: [facility] Address: [address] [place] [address] Result Comment: Resu lts checked and verified.No clot detected. Too Few Cells To Do Differential Performed By: #### 5 7021-8 ####[facility] LABCLIA [id number] [place] [address] [place] Comprehensive metabolic 2000 panelon 07-17-2023 Albumin [Mass/Vol] 2.3 g/dL Low 3.9-4.9 [facility] Comment on above: Order Comment: Speci men Type: BLOOD SPECIMENOrdering Facility: [facility] Address: [address] [place] [address] Performed By: #### 2 4323-8, ####[facility] LABCLIA [id number] [place] [address] [place] ALP [Catalytic activity/Vol] 61 U/L Normal 34-123 [facility] Comment on above: Order Comment: Speci men Type: BLOOD SPECIMENOrdering Facility: [facility] Address: [address] [place] [address] Performed By: #### 2 432-8, ####[facility] LABCLIA [id number] [place] [address] [place] ALT [Catalytic activity/Vol] 15 U/L Normal 7-38 [facility] Comment on above: Order Comment: Speci men Type: BLOOD SPECIMENOrdering Facility: [facility] Address: [address] [place] [address] Performed By: #### 2 4323-8, ####[facility] LABCLIA [id number] [place] [address] [place] Anion gap [Moles/Vol] 11 mmol/L Normal 9-18 [facility] Comment on above: Order Comment: Speci men Type: BLOOD SPECIMENOrdering Facility: [facility] Address: [address] [place] [address] Performed By: #### 2 4323-8, ####[facility] LABCLIA [id number] [place] [id number] [place] AST [Catalytic activity/Vol] 15 U/L Normal 13-35 [facility] Comment on above: Order Comment: Speci men Type: BLOOD SPECIMENOrdering Facility: [facility] Address: [address] [place] [address] Performed By: #### 2 432-8, ####[facility] LABCLIA [id number] [facility] [address] [place] Bilirubin [Mass/Vol] 0.6 mg/dL Normal 0.2-1.3 [facility] Comment on above: Order Comment: Speci men Type: BLOOD SPECIMENOrdering Facility: [facility] Address: [address] [place] [address] Performed By: #### 2 432-8, ####[facility] LABCLIA [id number] [place] [address] [place] Calcium [Mass/Vol] 8.1 mg/dL Low 8.5-10.2 [facility] Comment on above: Order Comment: Speci men Type: BLOOD SPECIMENOrdering Facility: [facility] Address: [address] [place] [address] Performed By: #### 2 4328, ####[facility] LABCLIA [id number] [place] [address] [place] Chloride [Moles/Vol] 106 mmol/L High 97-105 [facility] Comment on above: Order Comment: Speci men Type: BLOOD SPECIMENOrdering Facility: [facility] Address: [address] [place] [address] Performed By: #### 2 4323-8, ####[facility] LABCLIA [id number] [place] [address] [place] CO2 [Moles/Vol] 21 mmol/L Low 22-30 [facility] Comment on above: Order Comment: Speci men Type: BLOOD SPECIMENOrdering Facility: [facility] Address: [address] [place] [address] Performed By: #### 2 4323-8, ####[facility] LABCLIA [id number] [place] [id number] [place] Creatinine [Mass/Vol] 0.78 mg/dL Normal 0.58-0.96 [facility] Comment on above: Order Comment: Speci men Type: BLOOD SPECIMENOrdering Facility: [facility] Address: [address] [place] [address] Performed By: #### 2 4323-8, ####[facility] LABIA [id number] [place] [address] [place] Creatinine and Glomerular filtration rate.predicted panel (S/P/Bld) 82 mL/min/1.73m??? Normal >=60 [facility] Comment on above: Order Comment: Elvia escobar Type: BLOOD SPECIMENOrdering Facility: [facility] Address: [address] [place] [address] Result Comment: Berenice mated Glomerular Filtration Rate [...] actual GFR. Performed By: #### 2 4323-8, ####[facility] LABIA [id number] [place] [id number] [place] Glucose [Mass/Vol] 104 mg/dL High 74-99 [facility] Comment on above: Order Comment: Rochellei men Type: BLOOD SPECIMENOrdering Facility: [facility] Address: [address] [place] [address] Result Comment: The [place] [employer] (ADA) provides guidance for cutoff [...] Standards of Medical Care in Diabetes 2016, [place] [employer]. Diabetes Care. 2016.39(Suppl 1). Performed By: #### 2 4323-04, ####[facility] LABCLIA [id number] [place] [address] [place] Potassium [Moles/Vol] 3.5 mmol/L Low 3.7-5.1 [facility] Comment on above: Order Comment: Elvia escobar Type: BLOOD SPECIMENOrdering Facility: [facility] Address: [address] [place] [address] Performed By: #### 2 4323-04, ####[facility] LABCLIA [id number] [place] [address] [place] Protein [Mass/Vol] 4.5 g/dL Low 6.3-8.0 [facility] Comment on above: Order Comment: Elvia escobar Type: BLOOD SPECIMENOrdering Facility: [facility] Address: [address] [place] [address] Performed By: #### 2 4323-04, ####[facility] LABCLIA [id number] [place] [address] [place] Sodium [Moles/Vol] 138 mmol/L Normal 136-144 [facility] Comment on above: Order Comment: Rochellei luz Type: BLOOD SPECIMENOrdering Facility: [facility] Address: [address] [place] [address] Performed By: #### 2 4323-04, ####[facility] LABCLIA [id number] [place] [id number] [place] Urea nitrogen [Mass/Vol] 7 mg/dL Normal 7-21 [facility] Comment on above: Order Comment: Speci men Type: BLOOD SPECIMENOrdering Facility: [facility] Address: [address] [place] [address] Performed By: #### 2 4323-8, 96943-3 ####[facility] LABCLIA [id number] [place] [address] [place] Magnesium SerPl-mCncon 07-17 Magnesium [Mass/Vol] 2.0 mg/dL Normal 1.7-2.3 [facility] Comment on above: Order Comment: Speci men Type: BLOOD SPECIMENOrdering Facility: [facility] Address: [address] [place] [address] Performed By: #### 2 4323-8, ####[facility] LABCLIA [id number] [place] [address] [place] SOCIAL WORKon 07-17-2023 SOCIAL WORK Normal [facility] THERAPY NTon 07-17-2023 THERAPY NT Normal [facility] CBC W Auto Differential pane l (Bld)on 07-16-2023 Basophils (Bld) [#/Vol] Normal [facility] Comment on above: Order Comment: Speci men Type: BLOOD SPECIMENOrdering Facility: [facility] Address: [address] [place] [address] Result Comment: Too Few Cells To Do Differential. Performed By: #### 5 7021-8 ####[facility] LABCLIA [id number] [place] [address] [place] Basophils/100 WBC (Bld) Normal [facility] Comment on above: Order Comment: Speci men Type: BLOOD SPECIMENOrdering Facility: [facility] Address: [address] [place] [address] Result Comment: Too Few Cells To Do Differential. Performed By: #### 5 7021-8 ####[facility] LABCLIA [id number] [place] [address] [place] Differential cell count method Nom (Bld) Auto Normal [facility] Comment on above: Order Comment: Speci men Type: BLOOD SPECIMENOrdering Facility: [facility] Address: [address] [place] [address] Performed By: #### 5 7021-8 ####[facility] LABCLIA [id number] [place] [address] [place] Eosinophils (Bld) [#/Vol] Normal [facility] Comment on above: Order Comment: Speci men Type: BLOOD SPECIMENOrdering Facility: [facility] Address: [address] [place] [address] Result Comment: Too Few Cells To Do Differential. Performed By: #### 5 7021-8 ####[facility] LABCLIA [id number] [place] [address] [place] Eosinophils/100 WBC (Bld) Normal [facility] Comment on above: Order Comment: Speci men Type: BLOOD SPECIMENOrdering Facility: [facility] Address: [address] [place] [address] Result Comment: Too Few Cells To Do Differential. Performed By: #### 5 7021-8 ####[facility] LABCLIA [id number] [place] [address] [place] Erythrocyte distribution width (RBC) [Ratio] 14.8 % Normal 11.5-15.0 [facility] Comment on above: Order Comment: Speci men Type: BLOOD SPECIMENOrdering Facility: [facility] Address: [address] [place] [address] Performed By: #### 5 7021-8 ####[facility] LABCLIA [id number] [place] [address] [place] Hematocrit (Bld) [Volume fraction] 20.0 % Low 36.0-46.0 [facility] Comment on above: Order Comment: Speci men Type: BLOOD SPECIMENOrdering Facility: [facility] Address: [address] [place], [place] [address] Performed By: #### 5 7021-8 ####[facility] LABCLIA [id number] [place] [address] [place] Hemoglobin (Bld) [Mass/Vol] 6.9 g/dL Low 11.5-15.5 [facility] Comment on above: Order Comment: Speci men Type: BLOOD SPECIMENOrdering Facility: [facility] Address: [address] [place] [address] Performed By: #### 5 7021-8 ####[facility] LABCLIA [id number] [place] [address] [place] Immature granulocytes (Bld) [#/Vol] Normal [facility] Comment on above: Order Comment: Speci men Type: BLOOD SPECIMENOrdering Facility: [facility] Address: [address] [place] [address] Result Comment: Too Few Cells To Do Differential. Performed By: #### 5 7021-8 ####[facility] LABCLIA [id number] [place] [address] [place] Immature granulocytes/100 WBC (Bld) Normal [facility] Comment on above: Order Comment: Speci men Type: BLOOD SPECIMENOrdering Facility: [facility] Address: [address] [place] [address] Result Comment: Too Few Cells To Do Differential. Performed By: #### 5 7021-8 ####[facility] LABCLIA [id number] [place] [address] [place] Lymphocytes (Bld) [#/Vol] Normal [facility] Comment on above: Order Comment: Speci men Type: BLOOD SPECIMENOrdering Facility: [facility] Address: [address] [place] [address] Result Comment: Too Few Cells To Do Differential. Performed By: #### 5 7021-8 ####[facility] LABCLIA [id number] [place] [address] [place] Lymphocytes/100 WBC (Bld) Normal [facility] Comment on above: Order Comment: Speci men Type: BLOOD SPECIMENOrdering Facility: [facility] Address: [address] [place] [address] Result Comment: Too Few Cells To Do Differential. Performed By: #### 5 7021-8 ####[facility] LABCLIA [id number] [place] [address] [place] MCH (RBC) [Entitic mass] 30.4 pg Normal 26.0-34.0 [facility] Comment on above: Order Comment: Speci men Type: BLOOD SPECIMENOrdering Facility: [facility] Address: [address] [place] [address] Performed By: #### 5 7021-8 ####[facility] LABCLIA [id number] [place] [address] [place] MCHC (RBC) [Mass/Vol] 34.5 g/dL Normal 30.5-36.0 [facility] Comment on above: Order Comment: Speci men Type: BLOOD SPECIMENOrdering Facility: [facility] Address: [address] [place] [address] Performed By: #### 5 7021-8 ####[facility] LABCLIA [id number] [place] [address] [place] MCV (RBC) [Entitic vol] 88.1 fL Normal 80.0-100.0 [facility] Comment on above: Order Comment: Speci men Type: BLOOD SPECIMENOrdering Facility: [facility] Address: [address] [place] [address] Performed By: #### 5 7021-8 ####[facility] LABIA [id number] [place] [address] [place] Monocytes (Bld) [#/Vol] Normal [facility] Comment on above: Order Comment: Speci men Type: BLOOD SPECIMENOrdering Facility: [facility] Address: [address] [place] [address] Result Comment: Too Few Cells To Do Differential. Performed By: #### 5 7021-8 ####[facility] LABCLIA [id number] [place] [address] [place] Monocytes/100 WBC (Bld) Normal [facility] Comment on above: Order Comment: Speci men Type: BLOOD SPECIMENOrdering Facility: [facility] Address: [address] [place] [address] Result Comment: Too Few Cells To Do Differential. Performed By: #### 5 7021-8 ####[facility] LABCLIA [id number] [place] [address] [place] Neutrophils (Bld) [#/Vol] Normal [facility] Comment on above: Order Comment: Speci men Type: BLOOD SPECIMENOrdering Facility: [facility] Address: [address] [place] [address] Result Comment: Too Few Cells To Do Differential. Performed By: #### 5 7021-8 ####[facility] LABCLIA [id number] [place] [address] [place] Neutrophils/100 WBC (Bld) Normal [facility] Comment on above: Order Comment: Speci men Type: BLOOD SPECIMENOrdering Facility: [facility] Address: [address] [place] [address] Result Comment: Too Few Cells To Do Differential. Performed By: #### 5 7021-8 ####[facility] LABCLIA [id number] [place] [address] [place] Nucleated RBC (Bld) [#/Vol] 10*3/uL Normal <0.01 [facility] Comment on above: Order Comment: Speci men Type: BLOOD SPECIMENOrdering Facility: [facility] Address: [address] [place] [address] Performed By: #### 5 7021-8 ####[facility] LABCLIA [id number] [place] [address] [place] Nucleated RBC/100 WBC (Bld) [Ratio] 0.0 /100 WBC Normal [facility] Comment on above: Order Comment: Speci men Type: BLOOD SPECIMENOrdering Facility: [facility] Address: [address] [place] [address] Performed By: #### 5 7021-8 ####[facility] LABCLIA [id number] [place] [address] [place] Platelet mean volume (Bld) [Entitic vol] Normal [facility] Comment on above: Order Comment: Speci men Type: BLOOD SPECIMENOrdering Facility: [facility] Address: [address] [place] [address] Result Comment: Unab le to Report. Performed By: #### 5 7021-8 ####[facility] LABCLIA [id number] [place] [address] [place] Platelets (Bld) [#/Vol] 10 10*3/uL Low 150-400 [facility] Comment on above: Order Comment: Speci men Type: BLOOD SPECIMENOrdering Facility: [facility] Address: [address] [place] [address] Result Comment: No c lot detected.Results checked and verified. Performed By: #### 5 7021-8 ####[facility] LABCLIA [id number] [place] [address] [place] RBC (Bld) [#/Vol] 2.27 10*6/uL Low 3.90-5.20 [facility] Comment on above: Order Comment: Speci men Type: BLOOD SPECIMENOrdering Facility: [facility] Address: [address] [place] [address] Performed By: #### 5 7021-8 ####[facility] LABCLIA [id number] [place] [address] [place] WBC (Bld) [#/Vol] 0.38 10*3/uL Low 3.70-11.00 [facility] Comment on above: Order Comment: Speci men Type: BLOOD SPECIMENOrdering Facility: [facility] Address: [address] [place] [address] Result Comment: No c lot detected. Too Few Cells To Do Differential Performed By: #### 5 7021-8 ####[facility] LABCLIA [id number] [place] [address] [place] Comprehensive metabolic 2000 panelon 07-16-2023 Albumin [Mass/Vol] 2.5 g/dL Low 3.9-4.9 [facility] Comment on above: Order Comment: Speci men Type: BLOOD SPECIMENOrdering Facility: [facility] Address: [address] [place] [address] Performed By: #### 2 4323-8, ####[facility] LABCLIA [id number] [place] [address] [place] ALP [Catalytic activity/Vol] 60 U/L Normal 34-123 [facility] Comment on above: Order Comment: Speci men Type: BLOOD SPECIMENOrdering Facility: [facility] Address: [address] [place] [address] Performed By: #### 2 4323-8, ####[facility] LABCLIA [id number] [place] [address] [place] ALT [Catalytic activity/Vol] 12 U/L Normal 7-38 [facility] Comment on above: Order Comment: Speci men Type: BLOOD SPECIMENOrdering Facility: [facility] Address: [address] [place] [address] Performed By: #### 2 4323-8, ####[facility] LABCLIA [id number] [place] [id number] [place] Anion gap [Moles/Vol] 9 mmol/L Normal 9-18 [facility] Comment on above: Order Comment: Speci men Type: BLOOD SPECIMENOrdering Facility: [facility] Address: [address] [place] [address] Performed By: #### 2 4323-8, ####[facility] LABCLIA [id number] [place] [address] [place] AST [Catalytic activity/Vol] 12 U/L Low 13-35 [facility] Comment on above: Order Comment: Speci men Type: BLOOD SPECIMENOrdering Facility: [facility] Address: [address] [place] [address] Performed By: #### 2 432-8, ####[facility] LABCLIA [id number] [place] [address] [place] Bilirubin [Mass/Vol] 0.5 mg/dL Normal 0.2-1.3 [facility] Comment on above: Order Comment: Speci men Type: BLOOD SPECIMENOrdering Facility: [facility] Address: [address] [place] [address] Performed By: #### 2 4328, ####[facility] LABCLIA [id number] [place] [address] [place] Calcium [Mass/Vol] 7.8 mg/dL Low 8.5-10.2 [facility] Comment on above: Order Comment: Speci men Type: BLOOD SPECIMENOrdering Facility: [facility] Address: [address] [place] [address] Performed By: #### 2 8, ####[facility] LABCLIA [id number] [place] [id number] [place] Chloride [Moles/Vol] 105 mmol/L Normal 97-105 [facility] Comment on above: Order Comment: Speci men Type: BLOOD SPECIMENOrdering Facility: [facility] Address: [address] [place] [address] Performed By: #### 2 4323-8, ####[facility] LABCLIA [id number] [place] [address] [place] CO2 [Moles/Vol] 23 mmol/L Normal 22-30 [facility] Comment on above: Order Comment: Speci men Type: BLOOD SPECIMENOrdering Facility: [facility] Address: [address] [place] [address] Performed By: #### 2 4323-8, ####[facility] LABIA [id number] [place] [address] [place] Creatinine [Mass/Vol] 0.79 mg/dL Normal 0.58-0.96 [facility] Comment on above: Order Comment: Speci men Type: BLOOD SPECIMENOrdering Facility: [facility] Address: [address] [place] [address] Performed By: #### 2 4323-8, ####[facility] LABIA [id number] [place] [address] [place] Creatinine and Glomerular filtration rate.predicted panel (S/P/Bld) 81 mL/min/1.73m??? Normal >=60 [facility] Comment on above: Order Comment: Speci men Type: BLOOD SPECIMENOrdering Facility: [facility] Address: [address] [place] [address] Result Comment: Berenice mated Glomerular Filtration Rate [...] actual GFR. Performed By: #### 2 4323-8, ####[facility] LABIA [id number] [place] [address] [place] Glucose [Mass/Vol] 96 mg/dL Normal 74-99 [facility] Comment on above: Order Comment: Speci men Type: BLOOD SPECIMENOrdering Facility: [facility] Address: [address] [place] [address] Result Comment: The [place] [employer] (ADA) provides guidance for cutoff [...] Standards of Medical Care in Diabetes 2016, [place] [employer]. Diabetes Care. 2016.39(Suppl 1). Performed By: #### 2 4322-, ####[facility] LABCLIA [id number] [place] [address] [place] Potassium [Moles/Vol] 3.2 mmol/L Low 3.7-5.1 [facility] Comment on above: Order Comment: Speci men Type: BLOOD SPECIMENOrdering Facility: [facility] Address: [address] [place] [address] Performed By: #### 2 4323-04, ####[facility] LABCLIA [id number] [place] [address] [place] Protein [Mass/Vol] 4.5 g/dL Low 6.3-8.0 [facility] Comment on above: Order Comment: Speci men Type: BLOOD SPECIMENOrdering Facility: [facility] Address: [address] [place] [address] Performed By: #### 2 4323-04, ####[facility] LABCLIA [id number] [place] [address] [place] Sodium [Moles/Vol] 137 mmol/L Normal 136-144 [facility] Comment on above: Order Comment: Speci men Type: BLOOD SPECIMENOrdering Facility: [facility] Address: [address] [place] [address] Performed By: #### 2 4323-8, 51551-6 ####[facility] LABCLIA [id number] [place] [address] [place] Urea nitrogen [Mass/Vol] 9 mg/dL Normal 7-21 [facility] Comment on above: Order Comment: Speci men Type: BLOOD SPECIMENOrdering Facility: [facility] Address: [address] [place] [address] Performed By: #### 2 4323-8, ####[facility] LABIA [id number] [place] [address] [place] Gastrointestinal pathogens p jordan KIAH+probe (Stl)on 07-16-2023 ADENOVIRUS F 40/41 Not detected Normal Not Detected [facility] Comment on above: Order Comment: Speci men Type: STOOL SPECIMENOrdering Facility: [facility] Address: [address] [place] [address] Performed By: #### 7 9381-0 ####[facility] LABIA [id number] [place] [address] [place] ASTROVIRUS Not detected Normal Not Detected [facility] Comment on above: Order Comment: Speci men Type: STOOL SPECIMENOrdering Facility: [facility] Address: [address] [place] [address] Performed By: #### 7 9381-0 ####[facility] LABCLIA [id number] [place] [address] [place] C. cayetanensis DNA KIAH+probe Ql (Unsp spec) Not detected Normal Not Detected [facility] Comment on above: Order Comment: Speci men Type: STOOL SPECIMENOrdering Facility: [facility] Address: [address] [place] [address] Performed By: #### 7 9381-0 ####[facility] LABCLIA [id number] [place] [address] [place] Campylobacter sp DNA.diarrheagenic KIAH+probe Ql (Stl) Not detected Normal Not Detected [facility] Comment on above: Order Comment: Speci men Type: STOOL SPECIMENOrdering Facility: [facility] Address: [address] [place] [address] Performed By: #### 7 9381-0 ####[facility] LABCLIA [id number] [place] [address] [place] Cryptosporidium sp DNA KIAH+probe Ql (Unsp spec) Not detected Normal Not detected [facility] Comment on above: Order Comment: Speci men Type: STOOL SPECIMENOrdering Facility: [facility] Address: [address] [place] [address] Performed By: #### 7 9381-0 ####[facility] LABCLIA [id number] [place] [address] [place] E. COLI (EAEC) Not detected Normal Not Detected [facility] Comment on above: Order Comment: Speci men Type: STOOL SPECIMENOrdering Facility: [facility] Address: [address] [place] [address] Performed By: #### 7 9381-0 ####[facility] LABCLIA [id number] [place] [address] [place] E. COLI (EPEC) Not detected Normal Not Detected [facility] Comment on above: Order Comment: Speci men Type: STOOL SPECIMENOrdering Facility: [facility] Address: [address] [place] [address] Performed By: #### 7 9381-0 ####[facility] LABCLIA [id number] [place] [address] [place] E. COLI (ETEC) Not detected Normal Not Detected [facility] Comment on above: Order Comment: Speci men Type: STOOL SPECIMENOrdering Facility: [facility] Address: [address] [place] [address] Performed By: #### 7 9381-0 ####[facility] LABCLIA [id number] [place] [address] [place] E. COLI (STEC) Not detected Normal Not Detected [facility] Comment on above: Order Comment: Speci men Type: STOOL SPECIMENOrdering Facility: [facility] Address: [address] [place] [address] Performed By: #### 7 9381-0 ####[facility] LABCLIA [id number] [place] [address] [place] E. coli O157:H7 DNA KIAH+probe Ql (Unsp spec) Not Applicable Normal Not Detected [facility] Comment on above: Order Comment: Speci men Type: STOOL SPECIMENOrdering Facility: [facility] Address: [address] [place] [address] Performed By: #### 7 9381-0 ####[facility] LABCLIA [id number] [place] [address] [place] E. histolytica DNA KIAH+probe Ql (Unsp spec) Not detected Normal Not Detected [facility] Comment on above: Order Comment: Speci men Type: STOOL SPECIMENOrdering Facility: [facility] Address: [address] [place] [address] Performed By: #### 7 9381-0 ####[facility] LABCLIA [id number] [place] [address] [place] G. lamblia DNA KIAH+probe Ql (Unsp spec) Not detected Normal Not Detected [facility] Comment on above: Order Comment: Speci men Type: STOOL SPECIMENOrdering Facility: [facility] Address: [address] [place] [address] Performed By: #### 7 9381-0 ####[facility] LABCLIA [id number] [place] [address] [place] NOROVIRUS GI/GII Not detected Normal Not Detected [facility] Comment on above: Order Comment: Speci men Type: STOOL SPECIMENOrdering Facility: [facility] Address: [address] [place] [address] Performed By: #### 7 9381-0 ####[facility] LABCLIA [id number] [place] [address] [place] PLESIOMONAS SHIGELLOIDES Not detected Normal Not Detected [facility] Comment on above: Order Comment: Speci men Type: STOOL SPECIMENOrdering Facility: [facility] Address: [address] [place] [address] Performed By: #### 7 9381-0 ####[facility] LABCLIA [id number] [place] [address] [place] ROTOVIRUS A Not detected Normal Not Detected [facility] Comment on above: Order Comment: Speci men Type: STOOL SPECIMENOrdering Facility: [facility] Address: [address] [place] [address] Performed By: #### 7 9381-0 ####[facility] LABCLIA [id number] [place] [address] [place] Salmonella sp DNA KIAH+probe Ql (Unsp spec) Not detected Normal Not Detected [facility] Comment on above: Order Comment: Speci men Type: STOOL SPECIMENOrdering Facility: [facility] Address: [address] [place] [address] Performed By: #### 7 9381-0 ####[facility] LABCLIA [id number] [place] [address] [place] SAPOVIRUS I,II,IV,V Not detected Normal Not Detected [facility] Comment on above: Order Comment: Speci men Type: STOOL SPECIMENOrdering Facility: [facility] Address: [address] [place] [address] Performed By: #### 7 9381-0 ####[facility] LABCLIA [id number] [place] [address] [place] Shigella species+EIEC invasion plasmid antigen H ipaH gene KIAH+probe Ql (Stl) Not detected Normal Not Detected [facility] Comment on above: Order Comment: Speci men Type: STOOL SPECIMENOrdering Facility: [facility] Address: [address] [place] [address] Performed By: #### 7 9381-0 ####[facility] LABCLIA [id number] [place] [address] [place] V. cholerae DNA KIAH+probe Ql (Unsp spec) Not detected Normal Not Detected [facility] Comment on above: Order Comment: Speci men Type: STOOL SPECIMENOrdering Facility: [facility] Address: [address] [place] [address] Performed By: #### 7 9381-0 ####[facility] LABCLIA [id number] [place] [address] [place] Vibrio sp DNA KIAH+probe Nom (Unsp spec) Not detected Normal Not Detected [facility] Comment on above: Order Comment: Speci men Type: STOOL SPECIMENOrdering Facility: [facility] Address: [address] [place] [address] Performed By: #### 7 9381-0 ####[facility] LABIA [id number] [place] [address] [place] Yersinia sp DNA KIAH+probe Nom (Unsp spec) Not detected Normal Not Detected [facility] Comment on above: Order Comment: Speci men Type: STOOL SPECIMENOrdering Facility: [facility] Address: [address] [place] [address] Performed By: #### 7 9381-0 ####[facility] LABIA [id number] [place] [address] [place] Magnesium SerPl-mCncon 07-16 Magnesium [Mass/Vol] 2.0 mg/dL Normal 1.7-2.3 [facility] Comment on above: Order Comment: Speci men Type: BLOOD SPECIMENOrdering Facility: [facility] Address: [address] [place] [address] Performed By: #### 2 4323-8, 20415-6 ####[facility] LABCLIA [id number] [place] [address] [place] SOCIAL WORKon 07-16-2023 SOCIAL WORK Normal [facility] THERAPY NTon 07-16-2023 THERAPY NT Normal [facility] THERAPY NT Normal [facility] C diff Tox gens Stl Ql KIAH+p robeon 07-15-2023 C. difficile toxin genes KIAH+probe Ql (Stl) Negative Normal Negative for C. difficile toxin by PCR [facility] Comment on above: Order Comment: Speci men Type: STOOL SPECIMENOrdering Facility: [facility] Address: [address] [place] [address] Performed By: #### 5 4067-4 ####[facility] LABCLIA [id number] [place] [address] [place] CBC W Auto Differential pane l (Bld)on 07-15-2023 Basophils (Bld) [#/Vol] Normal [facility] Comment on above: Order Comment: Speci men Type: BLOOD SPECIMENOrdering Facility: [facility] Address: [address] [place] [address] Result Comment: Too Few Cells To Do Differential. Performed By: #### 5 7021-8 ####[facility] LABCLIA [id number] [place] [address] [place] Basophils/100 WBC (Bld) Normal [facility] Comment on above: Order Comment: Speci men Type: BLOOD SPECIMENOrdering Facility: [facility] Address: [address] [place] [address] Result Comment: Too Few Cells To Do Differential. Performed By: #### 5 7021-8 ####[facility] LABCLIA [id number] [place] [address] [place] Differential cell count method Nom (Bld) Auto Normal [facility] Comment on above: Order Comment: Speci men Type: BLOOD SPECIMENOrdering Facility: [facility] Address: [address] [place] [address] Performed By: #### 5 7021-8 ####[facility] LABCLIA [id number] [place] [address] [place] Eosinophils (Bld) [#/Vol] Normal [facility] Comment on above: Order Comment: Speci men Type: BLOOD SPECIMENOrdering Facility: [facility] Address: [address] [place] [address] Result Comment: Too Few Cells To Do Differential. Performed By: #### 5 7021-8 ####[facility] LABCLIA [id number] [place] [address] [place] Eosinophils/100 WBC (Bld) Normal [facility] Comment on above: Order Comment: Speci men Type: BLOOD SPECIMENOrdering Facility: [facility] Address: [address] [place] [address] Result Comment: Too Few Cells To Do Differential. Performed By: #### 5 7021-8 ####[facility] LABCLIA [id number] [place] [address] [place] Erythrocyte distribution width (RBC) [Ratio] 15.5 % High 11.5-15.0 [facility] Comment on above: Order Comment: Speci men Type: BLOOD SPECIMENOrdering Facility: [facility] Address: [address] [place] [address] Performed By: #### 5 7021-8 ####[facility] LABCLIA [id number] [place] [address] [place] Hematocrit (Bld) [Volume fraction] 18.5 % Low 36.0-46.0 [facility] Comment on above: Order Comment: Speci men Type: BLOOD SPECIMENOrdering Facility: [facility] Address: [address] [place] [address] Performed By: #### 5 7021-8 ####[facility] LABCLIA [id number] [place] [address] [place] Hemoglobin (Bld) [Mass/Vol] 6.4 g/dL Low 11.5-15.5 [facility] Comment on above: Order Comment: Speci men Type: BLOOD SPECIMENOrdering Facility: [facility] Address: [address] [place] [address] Performed By: #### 5 7021-8 ####[facility] LABIA [id number] [place] [address] [place] Immature granulocytes (Bld) [#/Vol] Normal [facility] Comment on above: Order Comment: Speci men Type: BLOOD SPECIMENOrdering Facility: [facility] Address: [address] [place] [address] Result Comment: Too Few Cells To Do Differential. Performed By: #### 5 7021-8 ####[facility] LABIA [id number] [place] [address] [place] Immature granulocytes/100 WBC (Bld) Normal [facility] Comment on above: Order Comment: Speci men Type: BLOOD SPECIMENOrdering Facility: [facility] Address: [address] [place] [address] Result Comment: Too Few Cells To Do Differential. Performed By: #### 5 7021-8 ####[facility] LABIA [id number] [place] [address] [place] Lymphocytes (Bld) [#/Vol] Normal [facility] Comment on above: Order Comment: Speci men Type: BLOOD SPECIMENOrdering Facility: [facility] Address: [address] [place] [address] Result Comment: Too Few Cells To Do Differential. Performed By: #### 5 7021-8 ####[facility] LABCLIA [id number] [place] [address] [place] Lymphocytes/100 WBC (Bld) Normal [facility] Comment on above: Order Comment: Speci men Type: BLOOD SPECIMENOrdering Facility: [facility] Address: [address] [place] [address] Result Comment: Too Few Cells To Do Differential. Performed By: #### 5 7021-8 ####[facility] LABIA [id number] [place] [address] [place] MCH (RBC) [Entitic mass] 30.9 pg Normal 26.0-34.0 [facility] Comment on above: Order Comment: Speci men Type: BLOOD SPECIMENOrdering Facility: [facility] Address: [address] [place] [address] Performed By: #### 5 7021-8 ####[facility] [id number] [place] [address] [place] MCHC (RBC) [Mass/Vol] 34.6 g/dL Normal 30.5-36.0 [facility] Comment on above: Order Comment: Speci men Type: BLOOD SPECIMENOrdering Facility: [facility] Address: [address] [place] [address] Performed By: #### 5 7021-8 ####[place] [id number] [place] [address] [place] MCV (RBC) [Entitic vol] 89.4 fL Normal 80.0-100.0 [facility] Comment on above: Order Comment: Speci men Type: BLOOD SPECIMENOrdering Facility: [facility] Address: [address] [place] [address] Performed By: #### 5 7021-8 ####[facility] LABIA [id number] [place] [address] [place] Monocytes (Bld) [#/Vol] Normal [facility] Comment on above: Order Comment: Speci men Type: BLOOD SPECIMENOrdering Facility: [facility] Address: [address] [place] [address] Result Comment: Too Few Cells To Do Differential. Performed By: #### 5 7021-8 ####[facility]CL[facility] [id number] [place] [address] [place] Monocytes/100 WBC (Bld) Normal [facility] Comment on above: Order Comment: Speci men Type: BLOOD SPECIMENOrdering Facility: [facility] Address: [address] [place] [address] Result Comment: Too Few Cells To Do Differential. Performed By: #### 5 7021-8 ####[facility]CL[facility] [id number] [place] [address] [place] Neutrophils (Bld) [#/Vol] Normal [facility] Comment on above: Order Comment: Speci men Type: BLOOD SPECIMENOrdering Facility: [facility] Address: [address] [place] [address] Result Comment: Too Few Cells To Do Differential. Performed By: #### 5 7021-8 ####[facility]CL[facility] [id number] [place] [address] [place] Neutrophils/100 WBC (Bld) Normal [facility] Comment on above: Order Comment: Speci men Type: BLOOD SPECIMENOrdering Facility: [facility] Address: [address] [place] [address] Result Comment: Too Few Cells To Do Differential. Performed By: #### 5 7021-8 ####[facility]CL[facility] [id number] [place] [address] [place] Nucleated RBC (Bld) [#/Vol] 0.02 10*3/uL High <0.01 [facility] Comment on above: Order Comment: Speci men Type: BLOOD SPECIMENOrdering Facility: [facility] Address: [address] [place] [address] Performed By: #### 5 7021-8 ####[facility]CL[facility] [id number] [place] [address] [place] Nucleated RBC/100 WBC (Bld) [Ratio] 4.7 /100 WBC Normal [facility] Comment on above: Order Comment: Speci men Type: BLOOD SPECIMENOrdering Facility: [facility] Address: [address] [place] [address] Performed By: #### 5 7021-8 ####[facility] LABIA [id number] [place] [address] [place] Platelet mean volume (Bld) [Entitic vol] Normal [facility] Comment on above: Order Comment: Speci men Type: BLOOD SPECIMENOrdering Facility: [facility] Address: [address] [place] [address] Result Comment: Unab le to Report. Performed By: #### 5 7021-8 ####[facility] LABIA [id number] [place] [address] [place] Platelets (Bld) [#/Vol] 8 10*3/uL Critically low 150-400 [facility] Comment on above: Order Comment: Speci men Type: BLOOD SPECIMENOrdering Facility: [facility] Address: [address] [place] [address] Result Comment: Plat elet count confirmed by manual review of peripheral blood smear. Results checked and verified.No clot detected. Performed By: #### 5 7021-8 ####[facility] LABIA [id number] [place] [address] [place] RBC (Bld) [#/Vol] 2.07 10*6/uL Low 3.90-5.20 [facility] Comment on above: Order Comment: Speci men Type: BLOOD SPECIMENOrdering Facility: [facility] Address: [address] [place] [address] Performed By: #### 5 7021-8 ####[facility] [id number] [place] [address] [place] WBC (Bld) [#/Vol] 0.43 10*3/uL Low 3.70-11.00 [facility] Comment on above: Order Comment: Speci men Type: BLOOD SPECIMENOrdering Facility: [facility] Address: [address] [place] [address] Result Comment: Resu lts checked and verified.No clot detected. Too Few Cells To Do Differential Performed By: #### 5 7021-8 ####[facility] LABCLIA [id number] [address] [address] [place] Comprehensive metabolic 2000 panelon 07-15-2023 Albumin [Mass/Vol] 2.3 g/dL Low 3.9-4.9 [facility] Comment on above: Order Comment: Speci men Type: BLOOD SPECIMENOrdering Facility: [facility] Address: [address] [place] [address] Performed By: #### 2 4323-8, ####[facility]CL[facility] [id number] [place] [address] [place] ALP [Catalytic activity/Vol] 56 U/L Normal 34-123 [facility] Comment on above: Order Comment: Speci men Type: BLOOD SPECIMENOrdering Facility: [facility] Address: [address] [place] [address] Performed By: #### 2 4323-8, ####[facility]CLIA [id number] [address] [place] ALT [Catalytic activity/Vol] 13 U/L Normal 7-38 [facility] Comment on above: Order Comment: Speci men Type: BLOOD SPECIMENOrdering Facility: [facility] Address: [address] [place] [address] Performed By: #### 2 4323-8, ####[facility]CL[facility] [id number] [place] [address] [place] Anion gap [Moles/Vol] 8 mmol/L Low 9-18 [facility] Comment on above: Order Comment: Speci men Type: BLOOD SPECIMENOrdering Facility: [facility] Address: [address] [place] [address] Performed By: #### 2 432-8, ####[facility]CL[facility] [id number] [place] [address] [place] AST [Catalytic activity/Vol] 12 U/L Low 13-35 [facility] Comment on above: Order Comment: Speci men Type: BLOOD SPECIMENOrdering Facility: [facility] Address: [address] [place] [address] Performed By: #### 2 432-8, ####[facility] LABCL[facility] [id number] [place] [address] [place] Bilirubin [Mass/Vol] 0.7 mg/dL Normal 0.2-1.3 [facility] Comment on above: Order Comment: Speci men Type: BLOOD SPECIMENOrdering Facility: [facility] Address: [address] [place] [address] Performed By: #### 2 4322-8, ####[facility] LABCLIA [id number] [place] [address] [place] Calcium [Mass/Vol] 7.9 mg/dL Low 8.5-10.2 [facility] Comment on above: Order Comment: Speci men Type: BLOOD SPECIMENOrdering Facility: [facility] Address: [address] [place] [address] Performed By: #### 2 8, ####[facility] LABCLIA [id number] [place] [id number] [place] Chloride [Moles/Vol] 103 mmol/L Normal 97-105 [facility] Comment on above: Order Comment: Speci men Type: BLOOD SPECIMENOrdering Facility: [facility] Address: [address] [place] [address] Performed By: #### 2 4323-8, ####[facility]CL[facility] [id number] [place] [address] [place] CO2 [Moles/Vol] 23 mmol/L Normal 22-30 [facility] Comment on above: Order Comment: Speci men Type: BLOOD SPECIMENOrdering Facility: [facility] Address: [address] [place] [address] Performed By: #### 2 4323-8, ####[facility]CL[facility] [id number] [place] [address] [place] Creatinine [Mass/Vol] 0.81 mg/dL Normal 0.58-0.96 [facility] Comment on above: Order Comment: Speci men Type: BLOOD SPECIMENOrdering Facility: [facility] Address: [address] [place] [address] Performed By: #### 2 4323-8, ####[facility] LABIA [id number] [place] [address] [place] Creatinine and Glomerular filtration rate.predicted panel (S/P/Bld) 78 mL/min/1.73m??? Normal >=60 [facility] Comment on above: Order Comment: Speci men Type: BLOOD SPECIMENOrdering Facility: [facility] Address: [address] [place] [address] Result Comment: Berenice mated Glomerular Filtration Rate [...] actual GFR. Performed By: #### 2 4323-8, ####[facility]CL[facility] [id number] [place] [address] [place] Glucose [Mass/Vol] 94 mg/dL Normal 74-99 [facility] Comment on above: Order Comment: Speci men Type: BLOOD SPECIMENOrdering Facility: [facility] Address: [address] [place] [address] Result Comment: The [place] [employer] (ADA) provides guidance for cutoff [...] Standards of Medical Care in Diabetes 2016, [place] [employer]. Diabetes Care. 2016.39(Suppl 1). Performed By: #### 2 432-8, ####[facility]CL[facility] [id number] [place] [address] [place] Potassium [Moles/Vol] 3.6 mmol/L Low 3.7-5.1 [facility] Comment on above: Order Comment: Speci men Type: BLOOD SPECIMENOrdering Facility: [facility] Address: [address] [place] [address] Performed By: #### 2 4323-04, ####[facility]IA [id number] [place] [address] [place] Protein [Mass/Vol] 4.6 g/dL Low 6.3-8.0 [facility] Comment on above: Order Comment: Speci men Type: BLOOD SPECIMENOrdering Facility: [facility] Address: [address] [place] [address] Performed By: #### 2 3, ####[facility]CL[facility] [id number] [place] [address] [place] Sodium [Moles/Vol] 134 mmol/L Low 136-144 [facility] Comment on above: Order Comment: Speci men Type: BLOOD SPECIMENOrdering Facility: [facility] Address: [address] [place] [id number] Performed By: #### 2 4323-8, ####[facility] LABCLIA [id number] [place] [id number] [place] Urea nitrogen [Mass/Vol] 14 mg/dL Normal 7-21 [facility] Comment on above: Order Comment: Speci men Type: BLOOD SPECIMENOrdering Facility: [facility] Address: [place] [address] Performed By: #### 2 4323-8, ####[facility]IA [id number] [place] [address] [place] Magnesium SerPl-mCncon 07-15 Magnesium [Mass/Vol] 2.1 mg/dL Normal 1.7-2.3 [facility] Comment on above: Order Comment: Speci men Type: BLOOD SPECIMENOrdering Facility: [facility] Address: [address] [place] [address] Performed By: #### 2 4323-8, ####[facility] LABIA [id number] [place] [address] [place] THERAPY NTon 07-15-2023 THERAPY NT Normal [facility] CT ABD/PEL W IVCONon 023 CT ABD/PEL W IVCON Normal [facility] CT CHEST W IVCONon 3 CT CHEST W IVCON Normal [facility] NURSING PROGon 07-14-2023 NURSING PROG Normal [facility] CBC W Auto Differential pane l (Bld)on 07-13-2023 Anisocytosis Ql (Bld) Present Normal [facility] Comment on above: Order Comment: Speci men Type: BLOOD SPECIMENOrdering Facility: [facility] Address: [address] [place] [id number] Performed By: #### 5 7021-8 ####[facility] LABIA [id number] [address] [address] [place] Basophils (Bld) [#/Vol] 0.00 10*3/uL Normal <0.11 [facility] Comment on above: Order Comment: Speci men Type: BLOOD SPECIMENOrdering Facility: [facility] Address: [address] [place] [address] Performed By: #### 5 7021-8 ####[facility]CL[facility] [id number] [place] [address] [place] Basophils/100 WBC (Bld) 0.0 % Normal [facility] Comment on above: Order Comment: Speci men Type: BLOOD SPECIMENOrdering Facility: [facility] Address: [address] [place] [address] Performed By: #### 5 7021-8 ####[facility] LABCL[facility] [id number] [place] [address] [place] BLAST% 1.8 % High <=0.0 [facility] Comment on above: Order Comment: Speci men Type: BLOOD SPECIMENOrdering Facility: [facility] Address: [address] [place] [address] Performed By: #### 5 7021-8 ####[facility] LABCLIA [id number] [place] [address] [place] Differential cell count method Nom (Bld) Manual Normal [facility] Comment on above: Order Comment: Speci men Type: BLOOD SPECIMENOrdering Facility: [facility] Address: [address] [place] [address] Performed By: #### 5 7021-8 ####[facility] LABCLIA [id number] [place] [address] [place] Eosinophils (Bld) [#/Vol] 0.00 10*3/uL Normal <0.46 [facility] Comment on above: Order Comment: Speci men Type: BLOOD SPECIMENOrdering Facility: [facility] Address: [address] [place] [address] Performed By: #### 5 7021-8 ####[facility] LABCLIA [id number] [place] [address] [place] Eosinophils/100 WBC (Bld) 0.0 % Normal [facility] Comment on above: Order Comment: Speci men Type: BLOOD SPECIMENOrdering Facility: [facility] Address: [address] [place] [address] Performed By: #### 5 7021-8 ####[facility] LABCLIA [id number] [place] [address] [place] Erythrocyte distribution width (RBC) [Ratio] 15.3 % High 11.5-15.0 [facility] Comment on above: Order Comment: Speci men Type: BLOOD SPECIMENOrdering Facility: [facility] Address: [address] [place] [address] Performed By: #### 5 7021-8 ####[facility] LABIA [id number] [place] [address] [place] Hematocrit (Bld) [Volume fraction] 20.6 % Low 36.0-46.0 [facility] Comment on above: Order Comment: Speci men Type: BLOOD SPECIMENOrdering Facility: [facility] Address: [address] [place] [address] Performed By: #### 5 7021-8 ####[facility] LABIA [id number] [place] [address] [place] Hemoglobin (Bld) [Mass/Vol] 7.3 g/dL Low 11.5-15.5 [facility] Comment on above: Order Comment: Speci men Type: BLOOD SPECIMENOrdering Facility: [facility] Address: [address] [place] [address] Performed By: #### 5 7021-8 ####[facility] LABCLIA [id number] [place] [address] [place] Lymphocytes (Bld) [#/Vol] 0.29 10*3/uL Low 1.00-4.00 [facility] Comment on above: Order Comment: Speci men Type: BLOOD SPECIMENOrdering Facility: [facility] Address: [address] [place] [address] Performed By: #### 5 7021-8 ####[facility] LABIA [id number] [place] [address] [place] Lymphocytes/100 WBC (Bld) 47.8 % Normal [facility] Comment on above: Order Comment: Speci men Type: BLOOD SPECIMENOrdering Facility: [facility] Address: [address] [place] [address] Performed By: #### 5 7021-8 ####[facility] LABIA [id number] [place] [address] [place] MCH (RBC) [Entitic mass] 30.9 pg Normal 26.0-34.0 [facility] Comment on above: Order Comment: Speci men Type: BLOOD SPECIMENOrdering Facility: [facility] Address: [address] [place] [address] Performed By: #### 5 7021-8 ####[facility] LABIA [id number] [place] [address] [place] MCHC (RBC) [Mass/Vol] 35.4 g/dL Normal 30.5-36.0 [facility] Comment on above: Order Comment: Speci men Type: BLOOD SPECIMENOrdering Facility: [facility] Address: [address] [place] [address] Performed By: #### 5 7021-8 ####[facility]IA [id number] [place] [address] [place] MCV (RBC) [Entitic vol] 87.3 fL Normal 80.0-100.0 [facility] Comment on above: Order Comment: Speci men Type: BLOOD SPECIMENOrdering Facility: [facility] Address: [address] [place] [address] Performed By: #### 5 7021-8 ####[facility] LABCLIA [id number] [place] [address] [place] Monocytes (Bld) [#/Vol] 0.07 10*3/uL Normal <0.87 [facility] Comment on above: Order Comment: Speci men Type: BLOOD SPECIMENOrdering Facility: [facility] Address: [address] [place] [address] Performed By: #### 5 7021-8 ####[facility] LABCLIA [id number] [place] [address] [place] Monocytes/100 WBC (Bld) 10.8 % Normal [facility] Comment on above: Order Comment: Speci men Type: BLOOD SPECIMENOrdering Facility: [facility] Address: [address] [place] [address] Performed By: #### 5 7021-8 ####[facility] LABCLIA [id number] [place] [address] [place] Neutrophils (Bld) [#/Vol] 0.24 10*3/uL Low 1.45-7.50 [facility] Comment on above: Order Comment: Speci men Type: BLOOD SPECIMENOrdering Facility: [facility] Address: [address] [place] [address] Performed By: #### 5 7021-8 ####[facility] LABCLIA [id number] [place] [address] [place] Neutrophils/100 WBC (Bld) 39.6 % Normal [facility] Comment on above: Order Comment: Speci men Type: BLOOD SPECIMENOrdering Facility: [facility] Address: [address] [place] [address] Performed By: #### 5 7021-8 ####[facility] LABCLIA [id number] [place] [address] [place] Nucleated RBC (Bld) [#/Vol] 0.02 10*3/uL High <0.01 [facility] Comment on above: Order Comment: Speci men Type: BLOOD SPECIMENOrdering Facility: [facility] Address: [address] [place] [address] Performed By: #### 5 7021-8 ####[facility] LABCLIA [id number] [place] [address] [place] Nucleated RBC/100 WBC (Bld) [Ratio] 2.7 /100 WBC Normal [facility] Comment on above: Order Comment: Speci men Type: BLOOD SPECIMENOrdering Facility: [facility] Address: [address] [place] [address] Performed By: #### 5 7021-8 ####[facility] LABCLIA [id number] [place] [address] [place] Ovalocytes LM Ql (Bld) Few Normal [facility] Comment on above: Order Comment: Speci men Type: BLOOD SPECIMENOrdering Facility: [facility] Address: [address] [place] [address] Performed By: #### 5 7021-8 ####[facility] LABCLIA [id number] [place] [address] [place] Platelet mean volume (Bld) [Entitic vol] Normal [facility] Comment on above: Order Comment: Speci men Type: BLOOD SPECIMENOrdering Facility: [facility] Address: [address] [place] [address] Result Comment: Unab le to Report. Performed By: #### 5 7021-8 ####[facility] LABCLIA [id number] [place] [address] [place] Platelets (Bld) [#/Vol] 10 10*3/uL Low 150-400 [facility] Comment on above: Order Comment: Speci men Type: BLOOD SPECIMENOrdering Facility: [facility] Address: [address] [place] [address] Performed By: #### 5 7021-8 ####[facility] LABCLIA [id number] [place] [address] [place] Platelets Estimate (Bld) [#/Vol] Decreased Normal [facility] Comment on above: Order Comment: Speci men Type: BLOOD SPECIMENOrdering Facility: [facility] Address: [address] [place] [address] Performed By: #### 5 7021-8 ####[facility] LABCLIA [id number] [place] [address] [place] Polychromasia LM Ql (Bld) Slight Normal [facility] Comment on above: Order Comment: Speci men Type: BLOOD SPECIMENOrdering Facility: [facility] Address: [address] [place] [address] Performed By: #### 5 7021-8 ####[facility] LABIA [id number] [place] [address] [place] RBC (Bld) [#/Vol] 2.36 10*6/uL Low 3.90-5.20 [facility] Comment on above: Order Comment: Speci men Type: BLOOD SPECIMENOrdering Facility: [facility] Address: [address] [place] [address] Performed By: #### 5 7021-8 ####[facility] LABCLIA [id number] [place] [address] [place] RBC FRAGMENTS Few Abnormal None Seen [facility] Comment on above: Order Comment: Speci men Type: BLOOD SPECIMENOrdering Facility: [facility] Address: [address] [place] [address] Performed By: #### 5 7021-8 ####[facility] LABIA [id number] [place] [address] [place] RED CELL MORPH Reviewed: see result s of individual morphologies Normal [facility] Comment on above: Order Comment: Speci men Type: BLOOD SPECIMENOrdering Facility: [facility] Address: [address] [place] [address] Performed By: #### 5 7021-8 ####[facility] LABCLIA [id number] [place] [address] [place] WBC (Bld) [#/Vol] 0.61 10*3/uL Low 3.70-11.00 [facility] Comment on above: Order Comment: Speci men Type: BLOOD SPECIMENOrdering Facility: [facility] Address: [address] [place] [address] Result Comment: Resu lts checked and verified.No clot detected. Performed By: #### 5 7021-8 ####[facility] LABCLIA [id number] [place] [address] [place] Comprehensive metabolic 2000 panelon 07-13-2023 Albumin [Mass/Vol] 2.6 g/dL Low 3.9-4.9 [facility] Comment on above: Order Comment: Speci men Type: BLOOD SPECIMENOrdering Facility: [facility] Address: [address] [place] [address] Performed By: #### 2 4323-8, 04227-5, 2777-1 ####[facility] LABIA [id number] [place] [address] [place] ALP [Catalytic activity/Vol] 49 U/L Normal 34-123 [facility] Comment on above: Order Comment: Speci men Type: BLOOD SPECIMENOrdering Facility: [facility] Address: [address] [place] [address] Performed By: #### 2 4323-8, 18423-9, 2777-1 ####[facility] LABIA [id number] [place] [address] [place] ALT [Catalytic activity/Vol] 16 U/L Normal 7-38 [facility] Comment on above: Order Comment: Speci men Type: BLOOD SPECIMENOrdering Facility: [facility] Address: [address] [place] [address] Performed By: #### 2 4323-8, , 2776-09 ####[facility] LABCLIA [id number] [place] [address] [place] Anion gap [Moles/Vol] 6 mmol/L Low 9-18 [facility] Comment on above: Order Comment: Speci men Type: BLOOD SPECIMENOrdering Facility: [facility] Address: [address] [place] [address] Performed By: #### 2 4323-8, , 2776-09 ####[facility] LABCLIA [id number] [place] [address] [place] AST [Catalytic activity/Vol] 13 U/L Normal 13-35 [facility] Comment on above: Order Comment: Speci men Type: BLOOD SPECIMENOrdering Facility: [facility] Address: [address] [place] [address] Performed By: #### 2 4323-8, , 2776-09 ####[facility] LABIA [id number] [place] [address] [place] Bilirubin [Mass/Vol] 0.8 mg/dL Normal 0.2-1.3 [facility] Comment on above: Order Comment: Speci men Type: BLOOD SPECIMENOrdering Facility: [facility] Address: [address] [place] [address] Performed By: #### 2 4323-8, , 2776-09 ####[facility] LABIA [id number] [place] [id number] [place] Calcium [Mass/Vol] 8.1 mg/dL Low 8.5-10.2 [facility] Comment on above: Order Comment: Speci men Type: BLOOD SPECIMENOrdering Facility: [facility] Address: [address] [place] [address] Performed By: #### 2 4323-8, , 2776-09 ####[facility] LABIA [id number] [place] [address] [place] Chloride [Moles/Vol] 103 mmol/L Normal 97-105 [facility] Comment on above: Order Comment: Speci men Type: BLOOD SPECIMENOrdering Facility: [facility] Address: [address] [place] [address] Performed By: #### 2 4323-8, , 2771 ####[facility] LABIA [id number] [place] [address] [place] CO2 [Moles/Vol] 25 mmol/L Normal 22-30 [facility] Comment on above: Order Comment: Speci men Type: BLOOD SPECIMENOrdering Facility: [facility] Address: [address] [place] [address] Performed By: #### 2 4323-8, , 2776-09 ####[facility] LABIA [id number] [place] [address] [place] Creatinine [Mass/Vol] 0.82 mg/dL Normal 0.58-0.96 [facility] Comment on above: Order Comment: Speci men Type: BLOOD SPECIMENOrdering Facility: [facility] Address: [address] [place] [address] Performed By: #### 2 4323-8, 27553-8, 2771 ####[place] [id number] [place] [address] [place] Creatinine and Glomerular filtration rate.predicted panel (S/P/Bld) 77 mL/min/1.73m??? Normal >=60 [facility] Comment on above: Order Comment: Speci men Type: BLOOD SPECIMENOrdering Facility: [facility] Address: [address] [place] [address] Result Comment: Berenice mated Glomerular Filtration Rate [...] actual GFR. Performed By: #### 2 4323-8, , 2776-09 ####[facility] LABCLIA [id number] [address] [address] [place] Glucose [Mass/Vol] 112 mg/dL High 74-99 [facility] Comment on above: Order Comment: Elvia escobar Type: BLOOD SPECIMENOrdering Facility: [facility] Address: [address] [place] [address] Result Comment: The [place] [employer] Association (ADA) provides guidance for cutoff [...] Standards of Medical Care in Diabetes 2016, [place] [employer]. Diabetes Care. 2016.39(Suppl 1). Performed By: #### 2 4328, , 2776-09 ####[facility] LABCLIA [id number] [address] [address] [place] Potassium [Moles/Vol] 3.9 mmol/L Normal 3.7-5.1 [facility] Comment on above: Order Comment: Elvia escobar Type: BLOOD SPECIMENOrdering Facility: [facility] Address: [address] [place] [address] Performed By: #### 2 432-8, , 2776-09 ####[facility] LABCLIA [id number] [facility] [address] [address] [place] Protein [Mass/Vol] 4.8 g/dL Low 6.3-8.0 [facility] Comment on above: Order Comment: Speci men Type: BLOOD SPECIMENOrdering Facility: [facility] Address: [address] [place] [address] Performed By: #### 2 4323-8, , 2776-09 ####[facility] LABCLIA [id number] [place] [address] [place] Sodium [Moles/Vol] 134 mmol/L Low 136-144 [facility] Comment on above: Order Comment: Speci men Type: BLOOD SPECIMENOrdering Facility: [facility] Address: [address] [place] [address] Performed By: #### 2 4323-8, , 2776-09 ####[facility] LABCLIA [id number] [place] [address] [place] Urea nitrogen [Mass/Vol] 26 mg/dL High 7-21 [facility] Comment on above: Order Comment: Speci men Type: BLOOD SPECIMENOrdering Facility: [facility] Address: [address] [place] [address] Performed By: #### 2 4323-8, , 2776-09 ####[facility] LABCLIA [id number] [place] [id number] [place] HISTORY PHYSICALon HISTORY PHYSICAL Normal [facility] Magnesium SerPl-mCncon 07-13 Magnesium [Mass/Vol] 2.2 mg/dL Normal 1.7-2.3 [facility] Comment on above: Order Comment: Speci men Type: BLOOD SPECIMENOrdering Facility: [facility] Address: [address] [place] [address] Performed By: #### 2 4323-8, , 2776-09 ####[facility] LABCLIA [id number] [place] [address] [place] Phosphate SerPl-mCncon 07-13 Phosphate [Mass/Vol] 2.8 mg/dL Normal 2.7-4.8 [facility] Comment on above: Order Comment: Speci men Type: BLOOD SPECIMENOrdering Facility: [facility] Address: [address] [place] [address] Performed By: #### 2 4323-8, 06995-5, 2777-1 ####[facility] LABCLIA [id number] [place] TYPE + SCREENon 07-13-2023 ABO O Normal [facility] Comment on above: Order Comment: Speci men Type: BLOOD SPECIMENOrdering Facility: [facility] Address: [address] [place] [address] Performed By: #### T SCR ####[facility] BLOOD BANKCLIA [id number] [place] [address] [place] HISTORICAL AB SCR STATUS Negative Normal [facility] Comment on above: Order Comment: Speci men Type: BLOOD SPECIMENOrdering Facility: [facility] Address: [address] [place] [address] Performed By: #### T SCR ####[facility] BLOOD BANKCLIA [id number] [place] [address] [place] Rh Nom (Bld) Positive Normal [facility] Comment on above: Order Comment: Speci men Type: BLOOD SPECIMENOrdering Facility: [facility] Address: [address] [place] [address] Performed By: #### T SCR ####[facility] BLOOD BANKCLIA [id number] [place] [address] [place] TYPE AND SCREEN EXPIRATION 07/16/2023 23:59 Normal [facility] Comment on above: Order Comment: Speci men Type: BLOOD SPECIMENOrdering Facility: [facility] Address: [address] [place] [address] Performed By: #### T SCR ####[facility] BLOOD BANKCLIA [id number] [place] [id number] [place] CNPNon 07-06-2023 CNPN Normal [facility] AML MRD BY FCon 06-25-2023 AML MRD BY FC View results in Scan talia Documents link when available. Normal [facility] Comment on above: Order Comment: Speci men Type: BONE MARROW SPECIMENOrdering Facility: [facility] Address: [address] [place] [address] Performed By: #### A MLMRD ####[facility] MOLECULAR MICROCLIA [id number] [place] [address] BONE MARROW ANALYSISon 06-25 ADDENDUM 1: Normal [facility] Comment on above: Order Comment: Speci men Type: BONE MARROW SPECIMENOrdering Facility: [facility] Address: [address] [place] [address] Result Comment: Conv entional cytogenetic studies showed a complex female karyotype.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.These results are consistent with persistent acute myeloid leukemia and do not change the previously rendered final diagnosis.See separate scanned reports in EPIC for detailed results.July 17ddendum electronically signed by Mihaela Flowers MD on 07/17/2023 at 10:10 AM Performed By: #### B MRT ####[facility] LABCLIA [id number] [place] [address] [place] CASE REPORT Normal [facility] Comment on above: Order Comment: Speci men Type: BONE MARROW SPECIMENOrdering Facility: [facility] Address: [address] [place] [address] Result Comment: Bone Marrow Pathology Report Case: [id number] Provider: Mike Hughes MD Collected: 06/25/2023 08:55 AMOrdering Location: [place] [address] Received: 06/25/2023 09:18 AMPathologist: Mihaela Flowers MDSpecimens: A) - BONE MARROW ASPIRATE RIGHT POSTERIOR ILIAC CREST B) - BONE MARROW BIOPSY RIGHT POSTERIOR ILIAC CREST C) - BONE MARROW CLOT RIGHT POSTERIOR ILIAC CREST Performed By: #### B MRT ####[facility] LABCLIA [id number] [facility]ITAL[facility] [id number] [place] [address] [place] DIAGNOSIS COMMENT Normal [facility] Comment on above: Order Comment: Speci men Type: BONE MARROW SPECIMENOrdering Facility: [facility] Address: [address] [place] [address] Result Comment: The patient is a 68-year-old [...] Hernandez from the hematopathology section at the [facility], and he concurs with the above rendered final diagnosis and interpretation.Laboratory Developed Test (LDT) Disclaimer:Performance characteristics of immunohistochemical, immunofluorescent and chromogenic in-situ hybridization tests have been determined by the performing laboratory within [facility]???s [facility] Pathology [facility] Laboratory Medicine [place] ([facility], [facility], [facility], [facility], [facility], [facility], or [facility]) in a manner consistent with CLIA requirements. One or more of these tests have not been cleared or approved by the FDA. RT-PLMI is regulated under CLIA as qualified to perform high-complexity testing. These tests are used for clinical purposes. They should not be regarded as investigational or for research. Positive and negative controls stain appropriately. Performed By: #### B MRT ####[facility] LABCLIA [id number] [address] [place] FINAL DIAGNOSIS Normal [facility] Comment on above: Order Comment: Speci men Type: BONE MARROW SPECIMENOrdering Facility: [facility] Address: [address] [place] [address] Result Comment: A-C. 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 Performed By: #### B MRT ####[facility] LABIA [id number] [place] [address] [place] GROSS DESCRIPTION Normal [facility] Comment on above: Order Comment: Elvia escobar Type: BONE MARROW SPECIMENOrdering Facility: [facility] Address: [address] [place] [address] Result Comment: A. B ONE MARROW ASPIRATE [...] one cassette. Performed By: #### B MRT ####[facility] LABCLIA [id number] [place] [address] [place] [facility] MICROSCOPIC DESCRIPTION Normal [facility] Comment on above: Order Comment: Speci men Type: BONE MARROW SPECIMENOrdering Facility: [facility] Address: [address] [place] [address] Result Comment: GENNY PHERAL BLOOD: N0 CBC data or peripheral blood smear available for review.BONE MARROW ASPIRATE: Differential counts performed on the aspicular, hemodilute touch imprint may not be entirely employer relations representative of the true marrow cellularity.Result Normal [...] coat stored. Performed By: #### B MRT ####[facility] LABCLIA [id number] [place] [address] [place] BONE MARROW CHROMOSOME ANALo n 06-25-2023 CHROMOSOME BM Normal [facility] Comment on above: Order Comment: Order ing Facility: [facility] Address: [address] [place] [address] Result Comment: Edel knight Accession Number: [id number]: Yara Hughesologist: Janki Pathology No: [id number] diagnosis: Acute Myeloid Leukemia Not Having AchievedRemissionSpecimen Type: Bone MarrowReceived Date: 06/25/2023Number of cells counted: 10Number of cells analyzed: 10Number of cells karyotyped: 10Banding resolution: <375Banding method: G-bandingDIAGNOSIS: 44,XX,-5,add(7)(q32),-12,-16,+mar[1]/43,idem,nehemiah(1)add(1)(q22)inv(1) (p13q21),add(2)(q37),add(3)(q21),add(4)(q12),nehemiah(6)add(6)(p11.2)del( 6)(q23q25),-add(7)(q32),add(7)(q11.2),-9,nehemiah(11)t(1;11)(q21;q23),+ma r[7]/46,XX[2]INTERPRETATION: Abnormal, female karyotypeCOMMENT: Ten metaphase cells were [...] reviewed by Jovanny Hooper, PhD, FACMGPerformed by [facility] System[facility]ology and Laboratory Medicine InstituteDivision of Molecular PathologyCytogenetics Lab, [id number] [place], [place] [address]Xsdqd: Toll free: Performed By: #### C HRBM ####[facility] ILLUMINA LIMSCLIA [id number] [address] [place] BRIEF OP NOTon 06-25-2023 BRIEF OP NOT Normal [facility] CNOVSPon 06-25-2023 CNOVSP Normal [facility] CT BIOPSY BONE MARROW (HEMO) on 06-25-2023 CT BIOPSY BONE MARROW (HEMO) Normal [facility] DNA EXTRACTION BONE MARROW ( BUFFY COAT)on 06-25-2023 DNA EXTRACTION BONE MARROW (BUFFY COAT) Normal [facility] Comment on above: Order Comment: Speci men Type: BONE MARROW SPECIMENOrdering Facility: [facility] Address: [address] [place] [address] Result Comment: This specimen was received and successfully processed for future DNA purification should molecular testing be needed. Specimens will be available for 3 years from date of collection.To order testing on this specimen for [facility] patients, please place an [facility] order for DNA and RNA Clinical Testing (SQNUCADD). To order testing for patients outside of the [facility] system, please request DNA and RNA for Clinical Testing, order code NUCADD.If additional paperwork is required for testing, please send completed forms via secure email to . Performed By: #### N UCBUF ####[facility] ILLUMINA LIMSCLIA [id number] [place] [id number] [facility] OF [place] FLOW CYTOMETRY FOR LEUKEMIA/ LYMPHOMA (FCLL) PERFORMABLEon 06-25-2023 FLOW CYTOMETRY ORDER STATUS A bone marrow sample was received for potential flow cytometry studies. Following morphologic review, flow cytometric studies will be ordered by the hematopathologist if testing is indicated. Normal [facility] Comment on above: Order Comment: Speci men Type: BONE MARROW SPECIMENOrdering Facility: [facility] Address: [address] [place] [address] Performed By: #### F CLLP ####[facility] LABCLIA [id number] [place] Flow Cytometry Order Status A bone marrow sample was received for potential flow cytometry studies. Following morphologic review, flow cytometric studies will be ordered by the hematopathologist if testing is indicated. [facility] FLT3 ITD HN BONE MARROWon JIMMIE SIGNOUT PATHOLOGIST [id number] Normal [facility] Comment on above: Order Comment: Speci men Type: BONE MARROW SPECIMENOrdering Facility: [facility] Address: [address] [place] [address] Performed By: #### F 3IM, PATEL ####JIMMIE ILLUMINA LIMSCLIA [id number] [address] FLT3 ITD HN PANEL BONE MARROW Normal [facility] Comment on above: Order Comment: Speci men Type: BONE MARROW SPECIMENOrdering Facility: [facility] Address: [address] [place] [address] Result Comment: FLT3 Internal Tandem Duplication (ITD) Mutation TestingLaboratory Accession Number: [id number] Internal Tandem Duplication (ITD) mutation: Not DetectedComment:FLT3/ITD [...] from the specimen provided. Regions of the FWP5xeylbjud kinase receptor gene are subjected to the polymerase chainreaction (PCR) using fluorescently labeled forward PCR primers. PCRproducts are analyzed by capillary gel electrophoresis for in-framelength mutations (ITD mutations). This assay can detect [...] was developed and its performance characteristics determinedby [facility]'s [facility] Pathology and LaboratoryMedicine [place] ([facility] CORPORATIONPLWA). It has not been cleared or approved bythe FDA. RT-PLWA is regulated under CLIA as certified to perform high-complexity testing. This test is used for clinical purposes. It shouldnot be regarded as investigational or for research.Testing and interpretation performed at [facility], [address] [place] [address]. CLIA Number: [id number] reviewed by Zenia Mae, PhD, [facility] Performed By: #### F 3IMIVONNE ####[facility] MEMOR[facility] HOSPITALSCA [id number] [place] [address] [place] HISTORY PHYSICALon HISTORY PHYSICAL Normal [facility] MYELOID NGS PANEL BONE MARRO Won 06-25-2023 MYELOID NGS PANEL BONE MARROW Normal [facility] Comment on above: Order Comment: Speci men Type: BONE MARROW SPECIMENOrdering Facility: [facility] Address: [address] [place] [address] Result Comment: Myel oid NGS Panel Bone MarrowLaboratory Accession Number: [id number]:Please see linked document and/or separate report for full result whenavailable.As reviewed by Zenia Mae, PhD, HCLD Performed By: #### F 3IMIVONNE ####[facility] CHARBEL CHANGLIA [id number] [place] [address] [place] NURSING PROGon 06-25-2023 NURSING PROG Normal [facility] PT EDon 06-25-2023 PT ED Normal [facility] CNPNon 06-22-2023 CNPN Normal [facility] NURSING PROGon 06-20-2023 NURSING PROG Normal [facility] CNPNon 06-14-2023 CNPN Normal [facility] CNCOon 06-08-2023 CNCO Letter Text Normal [facility] CASE MANAGEMon 06-07-2023 CASE MANAGEM Normal [facility] CBC W Auto Differential pane l (Bld)on 06-07-2023 Anisocytosis Ql (Bld) Present Normal [facility] Comment on above: Order Comment: Speci men Type: BLOOD SPECIMENOrdering Facility: [facility] Address: [address] [place] [address] Performed By: #### 5 7021-8 ####[facility] LABIA [id number] [place] [address] [place] Basophils (Bld) [#/Vol] 0.00 10*3/uL Normal <0.11 [facility] Comment on above: Order Comment: Speci men Type: BLOOD SPECIMENOrdering Facility: [facility] Address: [address] [place] [address] Performed By: #### 5 7021-8 ####[facility] LABIA [id number] [place] [address] [place] Basophils/100 WBC (Bld) 0.0 % Normal [facility] Comment on above: Order Comment: Speci men Type: BLOOD SPECIMENOrdering Facility: [facility] Address: [address] [place] [address] Performed By: #### 5 7021-8 ####[facility] LABCLIA [id number] [place] [address] [place] Dacrocytes LM Ql (Bld) Few Normal [facility] Comment on above: Order Comment: Speci men Type: BLOOD SPECIMENOrdering Facility: [facility] Address: [address] [place] [address] Performed By: #### 5 7021-8 ####[facility] LABCLIA [id number] [place] [address] [place] Differential cell count method Nom (Bld) Manual Normal [facility] Comment on above: Order Comment: Speci men Type: BLOOD SPECIMENOrdering Facility: [facility] Address: [address] [place] [address] Performed By: #### 5 7021-8 ####[facility] LABCLIA [id number] [place] [address] [place] Eosinophils (Bld) [#/Vol] 0.07 10*3/uL Normal <0.46 [facility] Comment on above: Order Comment: Speci men Type: BLOOD SPECIMENOrdering Facility: [facility] Address: [address] [place] [address] Performed By: #### 5 7021-8 ####[facility] LABCLIA [id number] [place] [address] [place] Eosinophils/100 WBC (Bld) 6.0 % Normal [facility] Comment on above: Order Comment: Speci men Type: BLOOD SPECIMENOrdering Facility: [facility] Address: [address] [place] [address] Performed By: #### 5 7021-8 ####[facility] LABCLIA [id number] [place] [address] [place] Erythrocyte distribution width (RBC) [Ratio] 18.3 % High 11.5-15.0 [facility] Comment on above: Order Comment: Speci men Type: BLOOD SPECIMENOrdering Facility: [facility] Address: [address] [place] [address] Performed By: #### 5 7021-8 ####[facility] LABCLIA [id number] [place] [address] [place] Hematocrit (Bld) [Volume fraction] 21.4 % Low 36.0-46.0 [facility] Comment on above: Order Comment: Speci men Type: BLOOD SPECIMENOrdering Facility: [facility] Address: [address] [place] [address] Performed By: #### 5 7021-8 ####[facility] LABCLIA [id number] [place] [address] [place] Hemoglobin (Bld) [Mass/Vol] 7.3 g/dL Low 11.5-15.5 [facility] Comment on above: Order Comment: Speci men Type: BLOOD SPECIMENOrdering Facility: [facility] Address: [address] [place] [address] Performed By: #### 5 7021-8 ####[facility] LABCLIA [id number] [place] [address] [place] Lymphocytes (Bld) [#/Vol] 0.96 10*3/uL Low 1.00-4.00 [facility] / [facility] Comment on above: Order Comment: Speci men Type: BLOOD SPECIMENOrdering Facility: [facility] Address: [address] [place] [address] Performed By: #### 5 7021-8 ####[facility] LABCLIA [id number] [place] [address] [place] Lymphocytes/100 WBC (Bld) 82.0 % Normal [facility] Comment on above: Order Comment: Speci men Type: BLOOD SPECIMENOrdering Facility: [facility] Address: [address] [place] [address] Performed By: #### 5 7021-8 ####[facility] LABCLIA [id number] [place] [address] [place] MCH (RBC) [Entitic mass] 32.2 pg Normal 26.0-34.0 [facility] Comment on above: Order Comment: Speci men Type: BLOOD SPECIMENOrdering Facility: [facility] Address: [address] [place] [address] Performed By: #### 5 7021-8 ####[facility] LABIA [id number] [place] [address] [place] MCHC (RBC) [Mass/Vol] 34.1 g/dL Normal 30.5-36.0 [facility] Comment on above: Order Comment: Speci men Type: BLOOD SPECIMENOrdering Facility: [facility] Address: [address] [place] [address] Performed By: #### 5 7021-8 ####[facility] LABIA [id number] [place] [address] [place] MCV (RBC) [Entitic vol] 94.3 fL Normal 80.0-100.0 [facility] Comment on above: Order Comment: Speci men Type: BLOOD SPECIMENOrdering Facility: [facility] Address: [address] [place] [address] Performed By: #### 5 7021-8 ####[facility] LABIA [id number] [place] [address] [place] Monocytes (Bld) [#/Vol] 0.00 10*3/uL Normal <0.87 [facility] Comment on above: Order Comment: Speci men Type: BLOOD SPECIMENOrdering Facility: [facility] Address: [address] [place] [address] Performed By: #### 5 7021-8 ####[facility] LABCLIA [id number] [place] [address] [place] Monocytes/100 WBC (Bld) 0.0 % Normal [facility] Comment on above: Order Comment: Speci men Type: BLOOD SPECIMENOrdering Facility: [facility] Address: [address] [place] [address] Performed By: #### 5 7021-8 ####[facility] LABCLIA [id number] [place] [address] [place] Neutrophils (Bld) [#/Vol] 0.14 10*3/uL Low 1.45-7.50 [facility] Comment on above: Order Comment: Speci men Type: BLOOD SPECIMENOrdering Facility: [facility] Address: [address] [place] [address] Performed By: #### 5 7021-8 ####[facility] LABCLIA [id number] [place] [address] [place] Neutrophils/100 WBC (Bld) 12.0 % Normal [facility] Comment on above: Order Comment: Speci men Type: BLOOD SPECIMENOrdering Facility: [facility] Address: [address] [place] [address] Performed By: #### 5 7021-8 ####[facility] LABCLIA [id number] [place] [address] [place] Nucleated RBC (Bld) [#/Vol] 10*3/uL Normal <0.01 [facility] Comment on above: Order Comment: Speci men Type: BLOOD SPECIMENOrdering Facility: [facility] Address: [address] [place] [address] Performed By: #### 5 7021-8 ####[facility] LABCLIA [id number] [place] [address] [place] Nucleated RBC/100 WBC (Bld) [Ratio] 0.0 /100 WBC Normal [facility] Comment on above: Order Comment: Speci men Type: BLOOD SPECIMENOrdering Facility: [facility] Address: [address] [place] [address] Performed By: #### 5 7021-8 ####[facility] LABCLIA [id number] [place] [address] [place] Ovalocytes LM Ql (Bld) Few Normal [facility] Comment on above: Order Comment: Speci men Type: BLOOD SPECIMENOrdering Facility: [facility] Address: [address] [place] [address] Performed By: #### 5 7021-8 ####[facility] LABCLIA [id number] [place] [address] [place] Platelet mean volume (Bld) [Entitic vol] Normal [facility] Comment on above: Order Comment: Speci men Type: BLOOD SPECIMENOrdering Facility: [facility] Address: [address] [place] [address] Result Comment: Unab le to Report. Performed By: #### 5 7021-8 ####[facility] LABCLIA [id number] [place] [address] [place] Platelets (Bld) [#/Vol] 9 10*3/uL Critically low 150-400 [facility] Comment on above: Order Comment: Speci men Type: BLOOD SPECIMENOrdering Facility: [facility] Address: [address] [place] [address] Result Comment: Resu lts checked and verified.No clot detected. Performed By: #### 5 7021-8 ####[facility] LABCLIA [id number] [place] [address] [place] Platelets Estimate (Bld) [#/Vol] Decreased Normal [facility] Comment on above: Order Comment: Speci men Type: BLOOD SPECIMENOrdering Facility: [facility] Address: [address] [place] [address] Performed By: #### 5 7021-8 ####[facility] LABCLIA [id number] [place] [address] [place] Polychromasia LM Ql (Bld) Slight Normal [facility] Comment on above: Order Comment: Speci men Type: BLOOD SPECIMENOrdering Facility: [facility] Address: [address] [place] [address] Performed By: #### 5 7021-8 ####[facility] LABCLIA [id number] [place] [address] [place] RBC (Bld) [#/Vol] 2.27 10*6/uL Low 3.90-5.20 [facility] Comment on above: Order Comment: Speci men Type: BLOOD SPECIMENOrdering Facility: [facility] Address: [address] [place] [address] Performed By: #### 5 7021-8 ####[facility] LABCLIA [id number] [place] [address] [place] RBC FRAGMENTS Few Abnormal None Seen [facility] Comment on above: Order Comment: Speci men Type: BLOOD SPECIMENOrdering Facility: [facility] Address: [address] [place] [address] Performed By: #### 5 7021-8 ####[facility] LABCLIA [id number] [place] [address] [place] RED CELL MORPH Reviewed: see result s of individual morphologies Normal [facility] Comment on above: Order Comment: Speci men Type: BLOOD SPECIMENOrdering Facility: [facility] Address: [address] [place] [address] Performed By: #### 5 7021-8 ####[facility] LABCLIA [id number] [place] [address] [place] WBC (Bld) [#/Vol] 1.17 10*3/uL Low 3.70-11.00 [facility] Comment on above: Order Comment: Speci men Type: BLOOD SPECIMENOrdering Facility: [facility] Address: [address] [place] [address] Result Comment: No c lot detected. Performed By: #### 5 7021-8 ####[facility] LABCLIA [id number] [address] [address] [place] CNDSon 06-07-2023 CNDS Normal [facility] Comprehensive metabolic 2000 panelon 06-07-2023 Albumin [Mass/Vol] 3.2 g/dL Low 3.9-4.9 [facility] Comment on above: Order Comment: Speci men Type: BLOOD SPECIMENOrdering Facility: [facility] Address: [address] [place] [address] Performed By: #### 2 4323-8, 62128-0, 2776-, 3084-1 ####[facility] LABCLIA [id number] [place] [address] [place] ALP [Catalytic activity/Vol] 63 U/L Normal 34-123 [facility] Comment on above: Order Comment: Speci men Type: BLOOD SPECIMENOrdering Facility: [facility] Address: [address] [place] [address] Performed By: #### 2 432-8, 06256-7, 2776-, 3084-1 ####[facility] LABIA [id number] [place] [address] [place] ALT [Catalytic activity/Vol] 18 U/L Normal 7-38 [facility] Comment on above: Order Comment: Speci men Type: BLOOD SPECIMENOrdering Facility: [facility] Address: [address] [place] [address] Performed By: #### 2 4323-8, 04270-0, 2776-, 3084-1 ####[facility] LABIA [id number] [place] [id number] [place] Anion gap [Moles/Vol] 10 mmol/L Normal 9-18 [facility] Comment on above: Order Comment: Speci men Type: BLOOD SPECIMENOrdering Facility: [facility] Address: [address] [place] [address] Performed By: #### 2 4323-8, 45777-5, 2776-1, 3084-1 ####[facility] LABCLIA [id number] [address] [address] [place] AST [Catalytic activity/Vol] 15 U/L Normal 13-35 [facility] Comment on above: Order Comment: Speci men Type: BLOOD SPECIMENOrdering Facility: [facility] Address: [address] [place] [address] Performed By: #### 2 4323-8, 17308-4, 2776-09, 3083-09 ####[facility] LABCLIA [id number] [address] [address] [place] Bilirubin [Mass/Vol] 0.3 mg/dL Normal 0.2-1.3 [facility] Comment on above: Order Comment: Speci men Type: BLOOD SPECIMENOrdering Facility: [facility] Address: [address] [place] [address] Performed By: #### 2 4323-8, 26400-0, 2776-09, 3083-09 ####[facility] LABCLIA [id number] [address] [address] [place] Calcium [Mass/Vol] 8.7 mg/dL Normal 8.5-10.2 [facility] Comment on above: Order Comment: Speci men Type: BLOOD SPECIMENOrdering Facility: [facility] Address: [address] [place] [address] Performed By: #### 2 4323-8, 43073-6, 2776-09, 3083-09 ####[facility] LABCLIA [id number] [address] [address] [place] Chloride [Moles/Vol] 110 mmol/L High 97-105 [facility] Comment on above: Order Comment: Speci men Type: BLOOD SPECIMENOrdering Facility: [facility] Address: [address] [place] [address] Performed By: #### 2 4323-8, 06928-2, 2776-09, 3083- ####[facility] LABIA [id number] [address] [address] [place] CO2 [Moles/Vol] 21 mmol/L Low 22-30 [facility] Comment on above: Order Comment: Speci men Type: BLOOD SPECIMENOrdering Facility: [facility] Address: [address] [place] [address] Performed By: #### 2 4323-8, 69099-3, 2776-, 3083-1 ####[facility] LABIA [id number] [address] [address] [place] Creatinine [Mass/Vol] 1.09 mg/dL High 0.58-0.96 [facility] Comment on above: Order Comment: Speci men Type: BLOOD SPECIMENOrdering Facility: [facility] Address: [address] [place] [address] Performed By: #### 2 4323-8, 21659-2, 2776-09, 3083- ####[facility] [id number] [place] [address] [place] Creatinine and Glomerular filtration rate.predicted panel (S/P/Bld) 55 mL/min/1.73m??? Low >=60 [facility] Comment on above: Order Comment: Speci men Type: BLOOD SPECIMENOrdering Facility: [facility] Address: [address] [place] [address] Result Comment: Berenice mated Glomerular Filtration Rate [...] actual GFR. Performed By: #### 2 4323-8, 00380-6, 2776-, 308-1 ####[facility] LABIA [id number] [address] [address] [place] Glucose [Mass/Vol] 107 mg/dL High 74-99 [facility] Comment on above: Order Comment: Speci men Type: BLOOD SPECIMENOrdering Facility: [facility] Address: [address] [place] [address] Result Comment: The [place] [employer] (ADA) provides guidance for cutoff [...] Standards of Medical Care in Diabetes 2016, [place] [employer]. Diabetes Care. 2016.39(Suppl 1). Performed By: #### 2 4323-8, 58676-6, 277-, 3083-1 ####[facility] LABCLIA [id number] [place] [address] [place] Potassium [Moles/Vol] 3.8 mmol/L Normal 3.7-5.1 [facility] Comment on above: Order Comment: Elvia escobar Type: BLOOD SPECIMENOrdering Facility: [facility] Address: [address] [place] [address] Performed By: #### 2 4323-8, 17624-4, 27703-03, 3083-1 ####[facility] LABCLIA [id number] [place] [address] [place] Protein [Mass/Vol] 5.4 g/dL Low 6.3-8.0 [facility] Comment on above: Order Comment: Rochellei men Type: BLOOD SPECIMENOrdering Facility: [facility] Address: [address] [place] [address] Performed By: #### 2 4323-8, 82221-8, 277-, 3083-1 ####[facility] LABCLIA [id number] [address] [address] [place] Sodium [Moles/Vol] 141 mmol/L Normal 136-144 [facility] Comment on above: Order Comment: Speci men Type: BLOOD SPECIMENOrdering Facility: [facility] Address: [address] [place], [place] [address] Performed By: #### 2 4323-8, 13760-1, 7-, 3084-1 ####[facility] LABIA [id number] [place] [id number] [place] Urea nitrogen [Mass/Vol] 14 mg/dL Normal 7-21 [facility] Comment on above: Order Comment: Speci men Type: BLOOD SPECIMENOrdering Facility: [facility] Address: [address] [place] [address] Performed By: #### 2 4323-8, 91981-3, 2776-, 3084-1 ####[facility] LABIA [id number] [place] [id number] [place] Magnesium SerPl-mCncon 06-07 Magnesium [Mass/Vol] 2.1 mg/dL Normal 1.7-2.3 [facility] Comment on above: Order Comment: Speci men Type: BLOOD SPECIMENOrdering Facility: [facility] Address: [address] [place] [address] Performed By: #### 2 4323-8, 13976-2, 2776-, 3084-1 ####[facility] LABIA [id number] [address] [address] [place] Phosphate SerPl-mCncon 06-07 Phosphate [Mass/Vol] 2.5 mg/dL Low 2.7-4.8 [facility] Comment on above: Order Comment: Speci men Type: BLOOD SPECIMENOrdering Facility: [facility] Address: [address] [place] [address] Performed By: #### 2 4323-8, 64829-4, 2776-1, 3084-1 ####[facility] LABCLIA [id number] [address] [address] [place] SOCIAL WORKon 06-07-2023 SOCIAL WORK Normal [facility] SOCIAL WORK Normal [facility] Urate SerPl-mCncon Urate [Mass/Vol] 2.8 mg/dL Normal 2.5-6.6 [facility] Comment on above: Order Comment: Speci men Type: BLOOD SPECIMENOrdering Facility: [facility] Address: [address] [place] [address] Performed By: #### 2 4323-8, , 2776-09, 3084-1 ####[facility] LABCLIA [id number] [place] [id number] [place] CBC W Auto Differential pane l (Bld)on 06-06-2023 Anisocytosis Ql (Bld) Present Normal [facility] Comment on above: Order Comment: Speci men Type: BLOOD SPECIMENOrdering Facility: [facility] Address: [address] [place] [address] Performed By: #### 5 7021-8 ####[facility] LABCLIA [id number] [place] [address] [place] Basophils (Bld) [#/Vol] 0.00 10*3/uL Normal <0.11 [facility] Comment on above: Order Comment: Speci men Type: BLOOD SPECIMENOrdering Facility: [facility] Address: [address] [place] [address] Performed By: #### 5 7021-8 ####[facility] LABCLIA [id number] [place] [address] [place] Basophils/100 WBC (Bld) 0.0 % Normal [facility] Comment on above: Order Comment: Speci men Type: BLOOD SPECIMENOrdering Facility: [facility] Address: [address] [place] [address] Performed By: #### 5 7021-8 ####[facility] LABCLIA [id number] [place] [address] [place] Dacrocytes LM Ql (Bld) Few Normal [facility] Comment on above: Order Comment: Speci men Type: BLOOD SPECIMENOrdering Facility: [facility] Address: [address] [place] [address] Performed By: #### 5 7021-8 ####[facility] LABCLIA [id number] [place] [address] [place] Differential cell count method Nom (Bld) Manual Normal [facility] Comment on above: Order Comment: Speci men Type: BLOOD SPECIMENOrdering Facility: [facility] Address: [address] [place] [address] Performed By: #### 5 7021-8 ####[facility] LABCLIA [id number] [place] [address] [place] Eosinophils (Bld) [#/Vol] 0.00 10*3/uL Normal <0.46 [facility] Comment on above: Order Comment: Speci men Type: BLOOD SPECIMENOrdering Facility: [facility] Address: [address] [place] [address] Performed By: #### 5 7021-8 ####[facility] LABCLIA [id number] [place] [address] [place] Eosinophils/100 WBC (Bld) 0.4 % Normal [facility] Comment on above: Order Comment: Speci men Type: BLOOD SPECIMENOrdering Facility: [facility] Address: [address] [place] [address] Performed By: #### 5 7021-8 ####[facility] LABCLIA [id number] [place] [address] [place] Erythrocyte distribution width (RBC) [Ratio] 18.8 % High 11.5-15.0 [facility] Comment on above: Order Comment: Speci men Type: BLOOD SPECIMENOrdering Facility: [facility] Address: [address] [place] [address] Performed By: #### 5 7021-8 ####[facility] LABIA [id number] [place] [address] [place] Hematocrit (Bld) [Volume fraction] 28.5 % Low 36.0-46.0 [facility] Comment on above: Order Comment: Speci men Type: BLOOD SPECIMENOrdering Facility: [facility] Address: [address] [place] [address] Performed By: #### 5 7021-8 ####[facility] LABIA [id number] [place] [address] [place] Hemoglobin (Bld) [Mass/Vol] 9.6 g/dL Low 11.5-15.5 [facility] Comment on above: Order Comment: Speci men Type: BLOOD SPECIMENOrdering Facility: [facility] Address: [address] [place] [address] Performed By: #### 5 7021-8 ####[facility] LABIA [id number] [place] [address] [place] Lymphocytes (Bld) [#/Vol] 0.86 10*3/uL Low 1.00-4.00 [facility] Comment on above: Order Comment: Speci men Type: BLOOD SPECIMENOrdering Facility: [facility] Address: [address] [place] [address] Performed By: #### 5 7021-8 ####[facility] LABIA [id number] [place] [address] [place] Lymphocytes/100 WBC (Bld) 91.2 % Normal [facility] Comment on above: Order Comment: Speci men Type: BLOOD SPECIMENOrdering Facility: [facility] Address: [address] [place] [address] Performed By: #### 5 7021-8 ####[facility] LABIA [id number] [place] [address] [place] MCH (RBC) [Entitic mass] 32.0 pg Normal 26.0-34.0 [facility] Comment on above: Order Comment: Speci men Type: BLOOD SPECIMENOrdering Facility: [facility] Address: [address] [place] [address] Performed By: #### 5 7021-8 ####[facility] LABIA [id number] [place] [address] [place] MCHC (RBC) [Mass/Vol] 33.7 g/dL Normal 30.5-36.0 [facility] Comment on above: Order Comment: Speci men Type: BLOOD SPECIMENOrdering Facility: [facility] Address: [address] [place] [address] Performed By: #### 5 7021-8 ####[place] [id number] [place] [address] [place] MCV (RBC) [Entitic vol] 95.0 fL Normal 80.0-100.0 [facility] Comment on above: Order Comment: Speci men Type: BLOOD SPECIMENOrdering Facility: [facility] Address: [address] [place] [address] Performed By: #### 5 7021-8 ####[facility] [id number] [place] [address] [place] Monocytes (Bld) [#/Vol] 0.00 10*3/uL Normal <0.87 [facility] Comment on above: Order Comment: Speci men Type: BLOOD SPECIMENOrdering Facility: [facility] Address: [address] [place] [address] Performed By: #### 5 7021-8 ####[facility] [id number] [place] [address] [place] Monocytes/100 WBC (Bld) 0.0 % Normal [facility] Comment on above: Order Comment: Speci men Type: BLOOD SPECIMENOrdering Facility: [facility] Address: [address] [place] [address] Performed By: #### 5 7021-8 ####[facility] LABCLIA [id number] [place] [address] [place] Neutrophils (Bld) [#/Vol] 0.08 10*3/uL Low 1.45-7.50 [facility] Comment on above: Order Comment: Speci men Type: BLOOD SPECIMENOrdering Facility: [facility] Address: [address] [place] [address] Performed By: #### 5 7021-8 ####[facility] LABCLIA [id number] [place] [address] [place] Neutrophils/100 WBC (Bld) 8.4 % Normal [facility] Comment on above: Order Comment: Speci men Type: BLOOD SPECIMENOrdering Facility: [facility] Address: [address] [place] [address] Performed By: #### 5 7021-8 ####[facility] LABIA [id number] [place] [address] [place] Nucleated RBC (Bld) [#/Vol] 10*3/uL Normal <0.01 [facility] Comment on above: Order Comment: Speci men Type: BLOOD SPECIMENOrdering Facility: [facility] Address: [address] [place] [address] Performed By: #### 5 7021-8 ####[facility] LABCLIA [id number] [place] [address] [place] Nucleated RBC/100 WBC (Bld) [Ratio] 0.0 /100 WBC Normal [facility] Comment on above: Order Comment: Speci men Type: BLOOD SPECIMENOrdering Facility: [facility] Address: [address] [place] [address] Performed By: #### 5 7021-8 ####[facility] LABCLIA [id number] [place] [address] [place] Ovalocytes LM Ql (Bld) Few Normal [facility] Comment on above: Order Comment: Speci men Type: BLOOD SPECIMENOrdering Facility: [facility] Address: [address] [place] [address] Performed By: #### 5 7021-8 ####[facility] LABCLIA [id number] [place] [address] [place] Platelet mean volume (Bld) [Entitic vol] Normal [facility] Comment on above: Order Comment: Speci men Type: BLOOD SPECIMENOrdering Facility: [facility] Address: [address] [place] [address] Result Comment: Unab le to Report. Performed By: #### 5 7021-8 ####[facility] LABIA [id number] [place] [address] [place] Platelets (Bld) [#/Vol] 12 10*3/uL Low 150-400 [facility] Comment on above: Order Comment: Speci men Type: BLOOD SPECIMENOrdering Facility: [facility] Address: [address] [place] [address] Result Comment: Resu lts checked and verified.No clot detected. Performed By: #### 5 7021-8 ####[facility] LABIA [id number] [place] [address] [place] Platelets Estimate (Bld) [#/Vol] Decreased Normal [facility] Comment on above: Order Comment: Speci men Type: BLOOD SPECIMENOrdering Facility: [facility] Address: [address] [place] [address] Performed By: #### 5 7021-8 ####[facility] LABCLIA [id number] [place] [address] [place] RBC (Bld) [#/Vol] 3.00 10*6/uL Low 3.90-5.20 [facility] Comment on above: Order Comment: Speci men Type: BLOOD SPECIMENOrdering Facility: [facility] Address: [address] [place] [address] Performed By: #### 5 7021-8 ####[facility] LABCLIA [id number] [place] [address] [place] RBC FRAGMENTS Few Abnormal None Seen [facility] Comment on above: Order Comment: Speci men Type: BLOOD SPECIMENOrdering Facility: [facility] Address: [address] [place] [address] Performed By: #### 5 7021-8 ####[facility] LABCLIA [id number] [place] [address] [place] RED CELL MORPH Reviewed: see result s of individual morphologies Normal [facility] Comment on above: Order Comment: Speci men Type: BLOOD SPECIMENOrdering Facility: [facility] Address: [address] [place] [address] Performed By: #### 5 7021-8 ####[facility] LABCLIA [id number] [place] [address] [place] WBC (Bld) [#/Vol] 0.94 10*3/uL Low 3.70-11.00 [facility] Comment on above: Order Comment: Speci men Type: BLOOD SPECIMENOrdering Facility: [facility] Address: [address] [place] [address] Result Comment: No c lot detected. Performed By: #### 5 7021-8 ####[facility] LABCLIA [id number] [place] [address] [place] CBC panel Auto (Bld)on 06-06 Erythrocyte distribution width (RBC) [Ratio] 18.6 % High 11.5-15.0 [facility] Comment on above: Order Comment: Speci men Type: BLOOD SPECIMENOrdering Facility: [facility] Address: [address] [place] [address] Performed By: #### 5 8410-2 ####[facility] LABIA [id number] [address] [place] Hematocrit (Bld) [Volume fraction] 21.7 % Low 36.0-46.0 [facility] Comment on above: Order Comment: Speci men Type: BLOOD SPECIMENOrdering Facility: [facility] Address: [address] [place], [place] [address] Performed By: #### 5 8410-2 ####[facility] LABIA [id number] [place] [address] [place] Hemoglobin (Bld) [Mass/Vol] 7.3 g/dL Low 11.5-15.5 [facility] Comment on above: Order Comment: Speci men Type: BLOOD SPECIMENOrdering Facility: [facility] Address: [address] [place], [place] [address] Performed By: #### 5 8410-2 ####[facility] LABIA [id number] [place] [address] [place] MCH (RBC) [Entitic mass] 32.2 pg Normal 26.0-34.0 [facility] Comment on above: Order Comment: Speci men Type: BLOOD SPECIMENOrdering Facility: [facility] Address: [address] [place], [place] [address] Performed By: #### 5 8410-2 ####[facility] LABIA [id number] [address] [place] MCHC (RBC) [Mass/Vol] 33.6 g/dL Normal 30.5-36.0 [facility] Comment on above: Order Comment: Speci men Type: BLOOD SPECIMENOrdering Facility: [facility] Address: [address] [place], [place] [address] Performed By: #### 5 8410-2 ####[facility] LABIA [id number] [address] [place] MCV (RBC) [Entitic vol] 95.6 fL Normal 80.0-100.0 [facility] Comment on above: Order Comment: Speci men Type: BLOOD SPECIMENOrdering Facility: [facility] Address: [address] [place] [address] Performed By: #### 5 8410-2 ####[facility] LABCLIA [id number] [place] [address] [place] Nucleated RBC (Bld) [#/Vol] 0.02 10*3/uL High <0.01 [facility] Comment on above: Order Comment: Speci men Type: BLOOD SPECIMENOrdering Facility: [facility] Address: [address] [place] [address] Performed By: #### 5 8410-2 ####[facility] LABCLIA [id number] [place] [address] [place] Platelet mean volume (Bld) [Entitic vol] Normal [facility] Comment on above: Order Comment: Speci men Type: BLOOD SPECIMENOrdering Facility: [facility] Address: [address] [place] [address] Result Comment: Unab le to Report. Performed By: #### 5 8410-2 ####[facility] LABCLIA [id number] [place] [address] [place] Platelets (Bld) [#/Vol] 14 10*3/uL Low 150-400 [facility] Comment on above: Order Comment: Speci men Type: BLOOD SPECIMENOrdering Facility: [facility] Address: [address] [place] [address] Result Comment: Resu lts checked and verified.No clot detected. Performed By: #### 5 8410-2 ####[facility] LABCLIA [id number] [place] [address] [place] RBC (Bld) [#/Vol] 2.27 10*6/uL Low 3.90-5.20 [facility] Comment on above: Order Comment: Speci men Type: BLOOD SPECIMENOrdering Facility: [facility] Address: [address] [place] [address] Performed By: #### 5 8410-2 ####[facility] LABCLIA [id number] [place] [address] [place] WBC (Bld) [#/Vol] 1.17 10*3/uL Low 3.70-11.00 [facility] Comment on above: Order Comment: Speci men Type: BLOOD SPECIMENOrdering Facility: [facility] Address: [address] [place] [address] Result Comment: No c lot detected. Performed By: #### 5 8410-2 ####[facility] LABCLIA [id number] [place] [address] [place] [facility] Comprehensive metabolic 2000 panelon 06-06-2023 Albumin [Mass/Vol] 3.6 g/dL Low 3.9-4.9 [facility] Comment on above: Order Comment: Speci men Type: BLOOD SPECIMENOrdering Facility: [facility] Address: [address] [place] [address] Performed By: #### 1 9123-9, 2777-1, 3084-1, 17790-7 ####[facility] LABCLIA [id number] [place] [address] [place] ALP [Catalytic activity/Vol] 59 U/L Normal 34-123 [facility] Comment on above: Order Comment: Speci men Type: BLOOD SPECIMENOrdering Facility: [facility] Address: [address] [place] [address] Performed By: #### 1 9123-9, 2777-1, 3084-1, 30528-3 ####[facility] LABCLIA [id number] [place] [address] [place] ALT [Catalytic activity/Vol] 21 U/L Normal 7-38 [facility] Comment on above: Order Comment: Speci men Type: BLOOD SPECIMENOrdering Facility: [facility] Address: [address] Performed By: #### 1 9123-9, 2777-1, 3084-1, 33588-6 ####[facility] LABCLIA [id number] [place] [address] [place] Anion gap [Moles/Vol] 11 mmol/L Normal 9-18 [facility] Comment on above: Order Comment: Speci men Type: BLOOD SPECIMENOrdering Facility: [facility] Address: [address] [place] [address] [place] [address] Performed By: #### 1 9123-9, 277-1, 308-, 92955-9 ####[facility] LABCLIA [id number] [place] [address] [place] AST [Catalytic activity/Vol] 15 U/L Normal 13-35 [facility] Comment on above: Order Comment: Speci men Type: BLOOD SPECIMENOrdering Facility: [facility] Address: [place] [address] Performed By: #### 1 9123-9, 277-1, 308-1, 44055-3 ####[facility] LABIA [id number] [place] [address] [place] Bilirubin [Mass/Vol] 0.4 mg/dL Normal 0.2-1.3 [facility] Comment on above: Order Comment: Speci men Type: BLOOD SPECIMENOrdering Facility: [facility] Address: [address] Performed By: #### 1 9123-9, 277-1, 3084-1, 30793-5 ####[facility] LABCLIA [id number] [place] [address] [place] Calcium [Mass/Vol] 8.8 mg/dL Normal 8.5-10.2 [facility] Comment on above: Order Comment: Speci men Type: BLOOD SPECIMENOrdering Facility: [facility] Address: [place] [address] Performed By: #### 1 9123-9, 2777-1, 308-, 66144-0 ####[facility] LABCLIA [id number] [place] [address] [place] Chloride [Moles/Vol] 108 mmol/L High 97-105 [facility] Comment on above: Order Comment: Speci men Type: BLOOD SPECIMENOrdering Facility: [facility] Address: [address] [place] [address] Performed By: #### 1 9123-9, 277-, 30812-02, 51015-6 ####[facility] LABIA [id number] [place] [address] [place] CO2 [Moles/Vol] 21 mmol/L Low 22-30 [facility] Comment on above: Order Comment: Speci men Type: BLOOD SPECIMENOrdering Facility: [facility] Address: [address] [place] [address] Performed By: #### 1 9123-9, 277-, 30812-02, 03561-2 ####[facility] LABIA [id number] [place] [address] [place] Creatinine [Mass/Vol] 1.06 mg/dL High 0.58-0.96 [facility] Comment on above: Order Comment: Speci men Type: BLOOD SPECIMENOrdering Facility: [facility] Address: [place] Performed By: #### 1 9123-9, 277-1, 3084-, 57238-9 ####[facility] LABCLIA [id number] [place] [address] [place] Creatinine and Glomerular filtration rate.predicted panel (S/P/Bld) 57 mL/min/1.73m??? Low >=60 [facility] Comment on above: Order Comment: Elvia escobar Type: BLOOD SPECIMENOrdering Facility: [facility] Address: [address] [place] [address] Result Comment: Berenice mated Glomerular Filtration Rate [...] GFR. Performed By: #### 1 9123-9, 2777-1, 3083-, 49696-4 ####[facility] LABCLIA [id number] [place] [address] [place] Glucose [Mass/Vol] 107 mg/dL High 74-99 [facility] Comment on above: Order Comment: Elvia escobar Type: BLOOD SPECIMENOrdering Facility: [facility] Address: [address] [place] [address] Result Comment: The [place] [employer] (ADA) provides guidance for cutoff [...] Standards of Medical Care in Diabetes 2016, [place] [employer]. Diabetes Care. 2016.39(Suppl 1). Performed By: #### 1 9123-9, 2777-1, 308-, 48148-5 ####[facility] LABCLIA [id number] [address] [address] [place] Potassium [Moles/Vol] 3.4 mmol/L Low 3.7-5.1 [facility] Comment on above: Order Comment: Speci men Type: BLOOD SPECIMENOrdering Facility: [facility] Address: [address] [place] [address] Performed By: #### 1 9123-9, 2777-1, 3084-1, 59866-5 ####[facility] LABCLIA [id number] [place] [address] [place] Protein [Mass/Vol] 5.6 g/dL Low 6.3-8.0 [facility] Comment on above: Order Comment: Speci men Type: BLOOD SPECIMENOrdering Facility: [facility] Address: [address] [place] [address] Performed By: #### 1 9123-9, 277-1, 308-, 99414-1 ####[facility] LABIA [id number] [place] [address] [place] Sodium [Moles/Vol] 140 mmol/L Normal 136-144 [facility] Comment on above: Order Comment: Speci men Type: BLOOD SPECIMENOrdering Facility: [facility] Address: [address] [place] [address] Performed By: #### 1 9123-9, 277-1, 308-, 13031-9 ####[facility] LABIA [id number] [place] [address] [place] Urea nitrogen [Mass/Vol] 16 mg/dL Normal 7-21 [facility] Comment on above: Order Comment: Speci men Type: BLOOD SPECIMENOrdering Facility: [facility] Address: [address] [place] [address] Performed By: #### 1 9123-9, 277-1, 3084-1, 46154-1 ####[facility] LABCLIA [id number] [address] [place] [address] [place] Magnesium SerPl-mCncon 06-06 Magnesium [Mass/Vol] 2.0 mg/dL Normal 1.7-2.3 [facility] Comment on above: Order Comment: Speci men Type: BLOOD SPECIMENOrdering Facility: [facility] Address: [address] [place] [address] Performed By: #### 1 9123-9, 2777-1, 3084-1, 05635-0 ####[facility] LABCLIA [id number] [place] [address] [place] Phosphate SerPl-mCncon 06-06 Phosphate [Mass/Vol] 2.8 mg/dL Normal 2.7-4.8 [facility] Comment on above: Order Comment: Speci men Type: BLOOD SPECIMENOrdering Facility: [facility] Address: [address] [place] [address] Performed By: #### 1 9123-9, 2777-1, 3084-1, 53886-0 ####[facility] LABCLIA [id number] [place] [address] [place] TYPE + SCREENon 06-06-2023 ABO O Normal [facility] Comment on above: Order Comment: Speci men Type: BLOOD SPECIMENOrdering Facility: [facility] Address: [address] [place] [address] Performed By: #### T SCR ####[facility] BLOOD BANKCLIA [id number] [place] [address] [place] HISTORICAL AB SCR STATUS Negative Normal [facility] Comment on above: Order Comment: Speci men Type: BLOOD SPECIMENOrdering Facility: [facility] Address: [address] [place] [address] Performed By: #### T SCR ####[facility] BLOOD BANKCLIA [id number] [place] [address] [place] Rh Nom (Bld) Positive Normal [facility] Comment on above: Order Comment: Speci men Type: BLOOD SPECIMENOrdering Facility: [facility] Address: [address] [place] [address] Performed By: #### T SCR ####[facility] BLOOD BANKIA [id number] [address] TYPE AND SCREEN EXPIRATION 06/09/2023 23:59 Normal [facility] Comment on above: Order Comment: Speci men Type: BLOOD SPECIMENOrdering Facility: [facility] Address: [address] [place] [address] Performed By: #### T SCR ####[facility] BLOOD [facility] [id number] [address] Urate SerPl-mCncon 3 Urate [Mass/Vol] 2.9 mg/dL Normal 2.5-6.6 [facility] Comment on above: Order Comment: Speci men Type: BLOOD SPECIMENOrdering Facility: [facility] Address: [address] [place] [address] Performed By: #### 1 9123-9, 2777-1, 3084-1, 30499-7 ####[facility] LABIA [id number] [address] [place] CBC W Auto Differential pane l (Bld)on 06-05-2023 Anisocytosis Ql (Bld) Present Normal [facility] Comment on above: Order Comment: Speci men Type: BLOOD SPECIMENOrdering Facility: [facility] Address: [address] [place] [address] Performed By: #### 5 7021-8 ####[facility] LABIA [id number] [address] Basophils (Bld) [#/Vol] 0.00 10*3/uL Normal <0.11 [facility] Comment on above: Order Comment: Speci men Type: BLOOD SPECIMENOrdering Facility: [facility] Address: [address] Performed By: #### 5 7021-8 ####[facility] LABCLIA [id number] [address] [place] [facility] Basophils/100 WBC (Bld) 0.0 % Normal [facility] Comment on above: Order Comment: Speci men Type: BLOOD SPECIMENOrdering Facility: [facility] Address: [address] [place] [address] Performed By: #### 5 7021-8 ####[facility] LABCLIA [id number] [place] [address] [place] Dacrocytes LM Ql (Bld) Few Normal [facility] Comment on above: Order Comment: Speci men Type: BLOOD SPECIMENOrdering Facility: [facility] Address: [address] [place] [address] Performed By: #### 5 7021-8 ####[facility] LABCLIA [id number] [place] [address] [place] Differential cell count method Nom (Bld) Manual Normal [facility] Comment on above: Order Comment: Speci men Type: BLOOD SPECIMENOrdering Facility: [facility] Address: [address] [place] [address] Performed By: #### 5 7021-8 ####[facility] LABCLIA [id number] [place] [address] [place] Eosinophils (Bld) [#/Vol] 0.02 10*3/uL Normal <0.46 [facility] Comment on above: Order Comment: Speci men Type: BLOOD SPECIMENOrdering Facility: [facility] Address: [address] [place], [place] [address] Performed By: #### 5 7021-8 ####[facility] LABCLIA [id number] [address] [place] Eosinophils/100 WBC (Bld) 1.7 % Normal [facility] Comment on above: Order Comment: Speci men Type: BLOOD SPECIMENOrdering Facility: [facility] Address: [address] [place], [place] [address] Performed By: #### 5 7021-8 ####[facility] LABIA [id number] [place] [address] [place] Erythrocyte distribution width (RBC) [Ratio] 19.0 % High 11.5-15.0 [facility] Comment on above: Order Comment: Speci men Type: BLOOD SPECIMENOrdering Facility: [facility] Address: [address] [place] [address] Performed By: #### 5 7021-8 ####[facility] LABIA [id number] [place] [address] [place] Hematocrit (Bld) [Volume fraction] 21.7 % Low 36.0-46.0 [facility] Comment on above: Order Comment: Speci men Type: BLOOD SPECIMENOrdering Facility: [facility] Address: [address] [place], [place] [address] Performed By: #### 5 7021-8 ####[facility] LABIA [id number] [place] [address] [place] Hemoglobin (Bld) [Mass/Vol] 7.4 g/dL Low 11.5-15.5 [facility] Comment on above: Order Comment: Speci men Type: BLOOD SPECIMENOrdering Facility: [facility] Address: [address] [place], [place] [address] Performed By: #### 5 7021-8 ####[facility] LABIA [id number] [place] [address] [place] Lymphocytes (Bld) [#/Vol] 1.09 10*3/uL Normal 1.00-4.00 [facility] Comment on above: Order Comment: Speci men Type: BLOOD SPECIMENOrdering Facility: [facility] Address: [address] Performed By: #### 5 7021-8 ####[facility] LABIA [id number] [address] [place] Lymphocytes/100 WBC (Bld) 85.2 % Normal [facility] Comment on above: Order Comment: Speci men Type: BLOOD SPECIMENOrdering Facility: [facility] Address: [address] Performed By: #### 5 7021-8 ####[facility] LABIA [id number] [place] [address] [place] MCH (RBC) [Entitic mass] 32.2 pg Normal 26.0-34.0 [facility] Comment on above: Order Comment: Speci men Type: BLOOD SPECIMENOrdering Facility: [facility] Address: [address] [place], [place] [address] Performed By: #### 5 7021-8 ####[facility] LABIA [id number] [place] [address] [place] MCHC (RBC) [Mass/Vol] 34.1 g/dL Normal 30.5-36.0 [facility] Comment on above: Order Comment: Speci men Type: BLOOD SPECIMENOrdering Facility: [facility] Address: [address] [place] [address] Performed By: #### 5 7021-8 ####[facility] LABIA [id number] [place] [address] [place] MCV (RBC) [Entitic vol] 94.3 fL Normal 80.0-100.0 [facility] Comment on above: Order Comment: Speci men Type: BLOOD SPECIMENOrdering Facility: [facility] Address: [address] [place], [place] [address] Performed By: #### 5 7021-8 ####[facility] LABIA [id number] [place] [address] [place] Monocytes (Bld) [#/Vol] 0.01 10*3/uL Normal <0.87 [facility] Comment on above: Order Comment: Speci men Type: BLOOD SPECIMENOrdering Facility: [facility] Address: [address] [place] [address] Performed By: #### 5 7021-8 ####[facility] LABCLIA [id number] [place] [address] [place] Monocytes/100 WBC (Bld) 0.9 % Normal [facility] Comment on above: Order Comment: Speci men Type: BLOOD SPECIMENOrdering Facility: [facility] Address: [address] [place] [address] Performed By: #### 5 7021-8 ####[facility] LABCLIA [id number] [place] [address] [place] Neutrophils (Bld) [#/Vol] 0.16 10*3/uL Low 1.45-7.50 [facility] Comment on above: Order Comment: Speci men Type: BLOOD SPECIMENOrdering Facility: [facility] Address: [address] [place], [place] [address] Performed By: #### 5 7021-8 ####[facility] LABCLIA [id number] [place] [address] [place] Neutrophils/100 WBC (Bld) 12.2 % Normal [facility] Comment on above: Order Comment: Speci men Type: BLOOD SPECIMENOrdering Facility: [facility] Address: [address] [place], [place] [address] Performed By: #### 5 7021-8 ####[facility] LABCLIA [id number] [place] [address] [place] Nucleated RBC (Bld) [#/Vol] 0.01 10*3/uL High <0.01 [facility] Comment on above: Order Comment: Speci men Type: BLOOD SPECIMENOrdering Facility: [facility] Address: [address] [place] [address] Performed By: #### 5 7021-8 ####[facility] LABIA [id number] [place] [address] [place] Nucleated RBC/100 WBC (Bld) [Ratio] 0.9 /100 WBC Normal [facility] Comment on above: Order Comment: Speci men Type: BLOOD SPECIMENOrdering Facility: [facility] Address: [address] [place] [address] Performed By: #### 5 7021-8 ####[facility] LABIA [id number] [place] [address] [place] [place] Ovalocytes LM Ql (Bld) Few Normal [facility] Comment on above: Order Comment: Speci men Type: BLOOD SPECIMENOrdering Facility: [facility] Address: [address] [place] [address] Performed By: #### 5 7021-8 ####[facility] LABIA [id number] [place] [address] [place] Platelet mean volume (Bld) [Entitic vol] Normal [facility] Comment on above: Order Comment: Speci men Type: BLOOD SPECIMENOrdering Facility: [facility] Address: [address] [place] [address] Result Comment: Unab le to Report. Performed By: #### 5 7021-8 ####[facility] LABIA [id number] [place] [address] [place] Platelets (Bld) [#/Vol] 7 10*3/uL Critically low 150-400 [facility] Comment on above: Order Comment: Speci men Type: BLOOD SPECIMENOrdering Facility: [facility] Address: [address] [place] [address] Result Comment: Plat elet count confirmed by manual review of peripheral blood smear. No clot detected.Results checked and verified. Performed By: #### 5 7021-8 ####[facility] LABCLIA [id number] [place] [address] [place] Platelets Estimate (Bld) [#/Vol] Adequate Normal [facility] Comment on above: Order Comment: Speci men Type: BLOOD SPECIMENOrdering Facility: [facility] Address: [address] [place] [address] Performed By: #### 5 7021-8 ####[facility] LABCLIA [id number] [place] [address] [place] RBC (Bld) [#/Vol] 2.30 10*6/uL Low 3.90-5.20 [facility] Comment on above: Order Comment: Speci men Type: BLOOD SPECIMENOrdering Facility: [facility] Address: [address] [place] [address] Performed By: #### 5 7021-8 ####[facility] LABCLIA [id number] [address] [place] MORPH Reviewed: see result s of individual morphologies Normal [facility] Comment on above: Order Comment: Speci men Type: BLOOD SPECIMENOrdering Facility: [facility] Address: [address] [place] [address] Performed By: #### 5 7021-8 ####[facility] LABCLIA [id number] [address] [place] WBC (Bld) [#/Vol] 1.28 10*3/uL Low 3.70-11.00 [facility] Comment on above: Order Comment: Speci men Type: BLOOD SPECIMENOrdering Facility: [facility] Address: [address] [place] [address] Result Comment: No c lot detected. Performed By: #### 5 7021-8 ####[facility] LABCLIA [id number] [address] [place] Comprehensive metabolic 2000 panelon 06-05-2023 Albumin [Mass/Vol] 3.3 g/dL Low 3.9-4.9 [facility] Comment on above: Order Comment: Speci men Type: BLOOD SPECIMENOrdering Facility: [facility] Address: [address] [place] [address] Performed By: #### 2 4323-8, 41318-1, 2776-, 3084-1 ####[facility] LABCLIA [id number] [place] [address] [place] ALP [Catalytic activity/Vol] 51 U/L Normal 34-123 [facility] Comment on above: Order Comment: Speci men Type: BLOOD SPECIMENOrdering Facility: [facility] Address: [address] [place] [address] Performed By: #### 2 4323-8, 04181-6, 2776-, 308-1 ####[facility] LABIA [id number] [address] [place] ALT [Catalytic activity/Vol] 19 U/L Normal 7-38 [facility] Comment on above: Order Comment: Speci men Type: BLOOD SPECIMENOrdering Facility: [facility] Address: [address] [place] [address] Performed By: #### 2 4323-8, 09235-1, 2776-, 308-1 ####[facility] LABCLIA [id number] [address] [place] Anion gap [Moles/Vol] 11 mmol/L Normal 9-18 [facility] Comment on above: Order Comment: Speci men Type: BLOOD SPECIMENOrdering Facility: [facility] Address: [address] [place] [address] Performed By: #### 2 4323-8, 82621-0, 2776-1, 3084-1 ####[facility] LABCLIA [id number] [place] [address] [place] AST [Catalytic activity/Vol] 21 U/L Normal 13-35 [facility] Comment on above: Order Comment: Speci men Type: BLOOD SPECIMENOrdering Facility: [facility] Address: [address] [place] [address] Performed By: #### 2 4323-8, 42958-6, 2776-, 3083-1 ####[facility] LABCLIA [id number] [place] [address] [place] Bilirubin [Mass/Vol] 0.4 mg/dL Normal 0.2-1.3 [facility] Comment on above: Order Comment: Speci men Type: BLOOD SPECIMENOrdering Facility: [facility] Address: [address] [place] [address] Performed By: #### 2 4323-8, 33687-5, 2776-09, 3083- ####[facility] LABIA [id number] [place] [address] [place] Calcium [Mass/Vol] 8.7 mg/dL Normal 8.5-10.2 [facility] Comment on above: Order Comment: Speci men Type: BLOOD SPECIMENOrdering Facility: [facility] Address: [address] [place] [address] Performed By: #### 2 4323-8, 94362-5, 277-, 3083- ####[facility] LABIA [id number] [place] [address] [place] Chloride [Moles/Vol] 108 mmol/L High 97-105 [facility] Comment on above: Order Comment: Speci men Type: BLOOD SPECIMENOrdering Facility: [facility] Address: [address] [place] [address] Performed By: #### 2 4323-8, 67810-1, 277-, 308-1 ####[facility] LABCLIA [id number] [place] [address] [place] CO2 [Moles/Vol] 22 mmol/L Normal 22-30 [facility] Comment on above: Order Comment: Specmaria eugenia escobar Type: BLOOD SPECIMENOrdering Facility: [facility] Address: [address] [place] [address] Performed By: #### 2 4323-8, 89791-4, 2776-, 3083- ####[facility] LABCLIA [id number] [place] [address] [place] Creatinine [Mass/Vol] 1.06 mg/dL High 0.58-0.96 [facility] Comment on above: Order Comment: Rochellei men Type: BLOOD SPECIMENOrdering Facility: [facility] Address: [address] [place] [address] Performed By: #### 2 4323-8, 06053-2, 2776-09, 3083- ####[facility] LABIA [id number] [place] [address] [place] Creatinine and Glomerular filtration rate.predicted panel (S/P/Bld) 57 mL/min/1.73m??? Low >=60 [facility] Comment on above: Order Comment: Elvia escobar Type: BLOOD SPECIMENOrdering Facility: [facility] Address: [address] [place] [address] Result Comment: Berenice mated Glomerular Filtration Rate [...] actual GFR. Performed By: #### 2 4323-8, 47976-8, 2776-, 3083-1 ####[facility] LABCLIA [id number] [place] [id number] [place] Glucose [Mass/Vol] 99 mg/dL Normal 74-99 [facility] Comment on above: Order Comment: Speci men Type: BLOOD SPECIMENOrdering Facility: [facility] Address: [address] [place], [place] [address] Result Comment: The [place] [employer] (ADA) provides guidance for cutoff [...] Standards of Medical Care in Diabetes 2016, [place] [employer]. Diabetes Care. 2016.39(Suppl 1). Performed By: #### 2 4323-8, 48094-8, 277-, 308-1 ####[facility] LABCLIA [id number] [place] [address] [place] Potassium [Moles/Vol] 3.5 mmol/L Low 3.7-5.1 [facility] Comment on above: Order Comment: Rochellei men Type: BLOOD SPECIMENOrdering Facility: [facility] Address: [address] [place], [place] [address] Performed By: #### 2 4323-8, 53612-3, 27703-03, 3083-1 ####[facility] LABCLIA [id number] [place] [address] [place] Protein [Mass/Vol] 5.5 g/dL Low 6.3-8.0 [facility] Comment on above: Order Comment: Speci men Type: BLOOD SPECIMENOrdering Facility: [facility] Address: [address] [place], [place] [address] Performed By: #### 2 4323-8, 40492-0, 277-, 308-1 ####[facility] LABCLIA [id number] [place] [address] [place] Sodium [Moles/Vol] 141 mmol/L Normal 136-144 [facility] Comment on above: Order Comment: Speci men Type: BLOOD SPECIMENOrdering Facility: [facility] Address: [address] [place] [address] Performed By: #### 2 4323-8, 28865-4, 7-1, 3084-1 ####[facility] LABIA [id number] [place] [address] [place] Urea nitrogen [Mass/Vol] 12 mg/dL Normal 7-21 [facility] Comment on above: Order Comment: Speci men Type: BLOOD SPECIMENOrdering Facility: [facility] Address: [address] [place] [address] Performed By: #### 2 4323-8, 53895-1, 2776-, 3084-1 ####[place] [id number] [place] [address] [place] Magnesium SerPl-mCncon 06-05 Magnesium [Mass/Vol] 2.0 mg/dL Normal 1.7-2.3 [facility] Comment on above: Order Comment: Speci men Type: BLOOD SPECIMENOrdering Facility: [facility] Address: [address] [place] [address] Performed By: #### 2 4323-8, 49098-7, 2777-1, 3084-1 ####[place] [id number] [address] [address] [place] NURSING PROGon 06-05-2023 NURSING PROG Normal [facility] NUTRITIONon 06-05-2023 NUTRITION Normal [facility] OUTSIDE BONE MARROW SLIDE RE VIEWon 06-05-2023 CASE REPORT Normal [facility] Comment on above: Order Comment: Speci men Type: FORMALIN-FIXED PARAFFIN-EMBEDDED TISSUE SPECIMENOrdering Facility: [facility] Review Address: , , Result Comment: Bone Marrow Pathology Report Case: [id number] Provider: Mike Hughes MD Collected: 06/05/2023 04:00 PMOrdering Location: [facility] Received: 06/05/2023 03:57 PMPathologist: Mihaela Flowers MDSpecimen: SLIDE(S), 26 SLIDES (BM23-11) Performed By: #### L [id number] ####[facility] LABIA [id number] [address] DIAGNOSIS COMMENT Normal [facility] Comment on above: Order Comment: [...] review demonstrates a variably cellular bone marrow (~30-40% based on the clot section) showing trilineage [...] (WHO 2021)/ therapy-related acute myeloid leukemia (WHO 2016). Correlation with the clinical findings is suggested.This case was also reviewed by Dr.Claudiu Dixon from the hematopathology section at the [facility], and he concurs with the above rendered final diagnosis and interpretation. 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)- Increased stainable iron.- Lymphoid aggregates present, favor benign.Peripheral blood smear:- Pancytopenia with macrocytic anemia, absolute neutropenia and few circulating blasts.June 13, 2023 Performed By: #### L [id number] ####[facility] LABCLIA [id number] [address] [place] FINAL PERFORMING LAB Normal [facility] Comment on above: Order Comment: Speci men Type: FORMALIN-FIXED PARAFFIN-EMBEDDED TISSUE SPECIMENOrdering Facility: [facility] Review Address: , , Result Comment: Diag nostic interpretation performed at [facility], [address] [place] [address] CLIA# [id number] Director: Boris Wood M.D. Performed By: #### L [id number] ####[facility] LABCLIA [id number] [address] [place] [facility] MICROSCOPIC DESCRIPTION Normal [facility] Comment on above: Order Comment: Speci [...] institution performed on the core biopsy (block PN35-60-A8) were reviewed at the [facility]. CD34 is difficult to interpret due [...] institution performed on the clot section (block YS25-16-G9) were reviewed at the [facility]. CD3 highlights moderate numbers scattered positive [...] section.ANCILLARY TESTS: Ancillary studies were performed at [employer] (see complete scanned reports in [facility] for detailed results). Flow cytometry: ([id number]) Reported to show CD34 positive blasts, comprising 29.8% of total cells that show expression of CD13, CD33, CD34 mod, CD117, HLA-DR, dim CD123, and are negative for cMPO, cCD3, cCD22, cCD79a, Tdt and CD11b. 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 FISH: N/A. Molecular: ([id number]) Molecular NGS studies were reported to show the following clinically significant variants:DNMT3A R635W (VAF 34.4%)RUNX1 F40Wfs*14 (VAF 20.9%)TP53 C238Y (VAF 63.9%) Performed By: #### L [id number] ####[facility] LABCLIA [id number] [place] [address] [place] Phosphate SerPl-mCncon 06-05 Phosphate [Mass/Vol] 2.6 mg/dL Low 2.7-4.8 [facility] Comment on above: Order Comment: Speci men Type: BLOOD SPECIMENOrdering Facility: [facility] Address: [address] [place], [place] [address] Performed By: #### 2 4323-8, 01732-0, 2777-1, 3084-1 ####[facility] LABCLIA [id number] [place] [address] [place] Urate SerPl-mCncon 3 Urate [Mass/Vol] 3.0 mg/dL Normal 2.5-6.6 [facility] Comment on above: Order Comment: Speci men Type: BLOOD SPECIMENOrdering Facility: [facility] Address: [address] [place] [address] Performed By: #### 2 4323-8, 58994-7, 2777-1, 3084-1 ####[facility] LABCLIA [id number] [place] [address] [place] CASE MANAGEMon 06-04-2023 CASE MANAGEM Normal [facility] CBC W Auto Differential pane l (Bld)on 06-04-2023 Anisocytosis Ql (Bld) Present Normal [facility] Comment on above: Order Comment: Speci men Type: BLOOD SPECIMENOrdering Facility: [facility] Address: [address] [place] [address] Performed By: #### 5 7021-8 ####[facility] LABIA [id number] [address] [place] Basophils (Bld) [#/Vol] 0.00 10*3/uL Normal <0.11 [facility] Comment on above: Order Comment: Speci men Type: BLOOD SPECIMENOrdering Facility: [facility] Address: [address] Performed By: #### 5 7021-8 ####[facility] LABIA [id number] [place] [address] [place] Basophils/100 WBC (Bld) 0.0 % Normal [facility] Comment on above: Order Comment: Speci men Type: BLOOD SPECIMENOrdering Facility: [facility] Address: [address] Performed By: #### 5 7021-8 ####[facility] LABCLIA [id number] [place] [address] [place] BLAST% 1.0 % High <=0.0 [facility] Comment on above: Order Comment: Speci men Type: BLOOD SPECIMENOrdering Facility: [facility] Address: [address] [place] [address] Performed By: #### 5 7021-8 ####[facility] LABCLIA [id number] [address] [place] Differential cell count method Nom (Bld) Manual Normal [facility] Comment on above: Order Comment: Speci men Type: BLOOD SPECIMENOrdering Facility: [facility] Address: [address] [place] [address] Performed By: #### 5 7021-8 ####[facility] LABCLIA [id number] [place] [address] [place] Eosinophils (Bld) [#/Vol] 0.01 10*3/uL Normal <0.46 [facility] Comment on above: Order Comment: Speci men Type: BLOOD SPECIMENOrdering Facility: [facility] Address: [address] [place] [address] Performed By: #### 5 7021-8 ####[facility] LABCLIA [id number] [address] [place] Eosinophils/100 WBC (Bld) 1.0 % Normal [facility] Comment on above: Order Comment: Speci men Type: BLOOD SPECIMENOrdering Facility: [facility] Address: [address] [place], [place] [address] Performed By: #### 5 7021-8 ####[facility] LABCLIA [id number] [place] [address] [place] Erythrocyte distribution width (RBC) [Ratio] 19.4 % High 11.5-15.0 [facility] Comment on above: Order Comment: Speci men Type: BLOOD SPECIMENOrdering Facility: [facility] Address: [address] Performed By: #### 5 7021-8 ####[facility] LABIA [id number] [place] [address] [place] Hematocrit (Bld) [Volume fraction] 22.8 % Low 36.0-46.0 [facility] Comment on above: Order Comment: Speci men Type: BLOOD SPECIMENOrdering Facility: [facility] Address: [address] Performed By: #### 5 7021-8 ####[facility] LABIA [id number] [place] [address] [place] Hemoglobin (Bld) [Mass/Vol] 7.9 g/dL Low 11.5-15.5 [facility] Comment on above: Order Comment: Speci men Type: BLOOD SPECIMENOrdering Facility: [facility] Address: [address] Performed By: #### 5 7021-8 ####[facility] LABIA [id number] [place] [address] [place] Lymphocytes (Bld) [#/Vol] 1.06 10*3/uL Normal 1.00-4.00 [facility] Comment on above: Order Comment: Speci men Type: BLOOD SPECIMENOrdering Facility: [facility] Address: [address] Performed By: #### 5 7021-8 ####[facility] LABIA [id number] [place] [address] [place] Lymphocytes/100 WBC (Bld) 87.0 % Normal [facility] Comment on above: Order Comment: Speci men Type: BLOOD SPECIMENOrdering Facility: [facility] Address: [address] Performed By: #### 5 7021-8 ####[facility] [id number] [address] MCH (RBC) [Entitic mass] 32.6 pg Normal 26.0-34.0 [facility] Comment on above: Order Comment: Speci men Type: BLOOD SPECIMENOrdering Facility: [facility] Address: [address] [place] [address] Performed By: #### 5 7021-8 ####[facility] [id number] [address] [place] MCHC (RBC) [Mass/Vol] 34.6 g/dL Normal 30.5-36.0 [facility] Comment on above: Order Comment: Speci men Type: BLOOD SPECIMENOrdering Facility: [facility] Address: [address] [place] [address] Performed By: #### 5 7021-8 ####[place] [id number] [address] [place] MCV (RBC) [Entitic vol] 94.2 fL Normal 80.0-100.0 [facility] Comment on above: Order Comment: Speci men Type: BLOOD SPECIMENOrdering Facility: [facility] Address: [address] [place] [address] Performed By: #### 5 7021-8 ####[facility] [id number] [place] [address] [place] Monocytes (Bld) [#/Vol] 0.00 10*3/uL Normal <0.87 [facility] Comment on above: Order Comment: Speci men Type: BLOOD SPECIMENOrdering Facility: [facility] Address: [address] [place] [address] Performed By: #### 5 7021-8 ####[facility] [id number] [address] [id number] [address] [place] Monocytes/100 WBC (Bld) 0.0 % Normal [facility] Comment on above: Order Comment: Speci men Type: BLOOD SPECIMENOrdering Facility: [facility] Address: [address] [place], [place] [address] Performed By: #### 5 7021-8 ####[facility] LABCLIA [id number] [place] [address] [place] Neutrophils (Bld) [#/Vol] 0.13 10*3/uL Low 1.45-7.50 [facility] Comment on above: Order Comment: Speci men Type: BLOOD SPECIMENOrdering Facility: [facility] Address: [address] [place] [address] Performed By: #### 5 7021-8 ####[facility] LABCLIA [id number] [place] [address] [place] Neutrophils/100 WBC (Bld) 11.0 % Normal [facility] Comment on above: Order Comment: Speci men Type: BLOOD SPECIMENOrdering Facility: [facility] Address: [address] [place], [place] [address] Performed By: #### 5 7021-8 ####[facility] LABCLIA [id number] [place] [address] [place] Nucleated RBC (Bld) [#/Vol] 0.01 10*3/uL High <0.01 [facility] Comment on above: Order Comment: Speci men Type: BLOOD SPECIMENOrdering Facility: [facility] Address: [address] [place], [place] [address] Performed By: #### 5 7021-8 ####[facility] LABCLIA [id number] [place] [address] [place] Nucleated RBC/100 WBC (Bld) [Ratio] 1.0 /100 WBC Normal [facility] Comment on above: Order Comment: Speci men Type: BLOOD SPECIMENOrdering Facility: [facility] Address: [address] [place] [address] Performed By: #### 5 7021-8 ####[facility] LABIA [id number] [place] [address] [place] Ovalocytes LM Ql (Bld) Few Normal [facility] Comment on above: Order Comment: Speci men Type: BLOOD SPECIMENOrdering Facility: [facility] Address: [address] [place] [address] Performed By: #### 5 7021-8 ####[facility] LABIA [id number] [place] [address] [place] Platelet mean volume (Bld) [Entitic vol] Normal [facility] Comment on above: Order Comment: Speci men Type: BLOOD SPECIMENOrdering Facility: [facility] Address: [address] [place] [address] Result Comment: Unab le to Report. Performed By: #### 5 7021-8 ####[facility] LABIA [id number] [place] [address] [place] Platelets (Bld) [#/Vol] 11 10*3/uL Low 150-400 [facility] Comment on above: Order Comment: Speci men Type: BLOOD SPECIMENOrdering Facility: [facility] Address: [address] [address] [place], [place] [address] Result Comment: No c lot detected.Results checked and verified. Performed By: #### 5 7021-8 ####[facility] LABIA [id number] [place] [address] [place] Platelets Estimate (Bld) [#/Vol] Decreased Normal [facility] Comment on above: Order Comment: Speci men Type: BLOOD SPECIMENOrdering Facility: [facility] Address: [address] [place] [address] Performed By: #### 5 7021-8 ####[facility] LABCLIA [id number] [place] [address] [place] RBC (Bld) [#/Vol] 2.42 10*6/uL Low 3.90-5.20 [facility] Comment on above: Order Comment: Speci men Type: BLOOD SPECIMENOrdering Facility: [facility] Address: [address] [address] Performed By: #### 5 7021-8 ####[facility] LABCLIA [id number] [place] [address] [place] RBC FRAGMENTS Few Abnormal None Seen [facility] Comment on above: Order Comment: Speci men Type: BLOOD SPECIMENOrdering Facility: [facility] Address: [address] [place] [address] Performed By: #### 5 7021-8 ####[facility] LABCLIA [id number] [address] STATES OF [facility] RED CELL MORPH Reviewed: see result s of individual morphologies Normal [facility] Comment on above: Order Comment: Speci men Type: BLOOD SPECIMENOrdering Facility: [facility] Address: [address] [place] [address] Performed By: #### 5 7021-8 ####[facility] LABCLIA [id number] [place] [address] [place] WBC (Bld) [#/Vol] 1.22 10*3/uL Low 3.70-11.00 [facility] Comment on above: Order Comment: Speci men Type: BLOOD SPECIMENOrdering Facility: [facility] Address: [address] [place] [address] Result Comment: No c lot detected. Performed By: #### 5 7021-8 ####[facility] LABCLIA [id number] [address] [place] Comprehensive metabolic 2000 panelon 06-04-2023 Albumin [Mass/Vol] 3.7 g/dL Low 3.9-4.9 [facility] Comment on above: Order Comment: Speci men Type: BLOOD SPECIMENOrdering Facility: [facility] Address: [address] [address] Performed By: #### 2 4323-8, 76750-0, 2776-, 308- ####[facility] LABCLIA [id number] [place] [address] [place] ALP [Catalytic activity/Vol] 55 U/L Normal 34-123 [facility] Comment on above: Order Comment: Speci men Type: BLOOD SPECIMENOrdering Facility: [facility] Address: [address] [address] Performed By: #### 2 4323-8, , 2776-09, 308- ####[facility] LABIA [id number] [place] [address] [place] ALT [Catalytic activity/Vol] 17 U/L Normal 7-38 [facility] Comment on above: Order Comment: Speci men Type: BLOOD SPECIMENOrdering Facility: [facility] Address: [address] [place] [address] Performed By: #### 2 4323-8, 21880-2, 2776-09, 308- ####[facility] LABIA [id number] [place] [address] [place] Anion gap [Moles/Vol] 11 mmol/L Normal 9-18 [facility] Comment on above: Order Comment: Speci men Type: BLOOD SPECIMENOrdering Facility: [facility] Address: [address] [address] Performed By: #### 2 4323-8, 58541-8, 2776-09, 308- ####[facility] LABCLIA [id number] [place] [address] [place] AST [Catalytic activity/Vol] 14 U/L Normal 13-35 [facility] Comment on above: Order Comment: Speci men Type: BLOOD SPECIMENOrdering Facility: [facility] Address: [address] Performed By: #### 2 4323-8, , 2776-09, 3083- ####[facility] LABCLIA [id number] [place] [address] [place] Bilirubin [Mass/Vol] 0.5 mg/dL Normal 0.2-1.3 [facility] Comment on above: Order Comment: Speci men Type: BLOOD SPECIMENOrdering Facility: [facility] Address: [address] [address] Performed By: #### 2 4323-8, , 2776-09, 3083- ####[facility] LABCLIA [id number] [place] [address] [place] Calcium [Mass/Vol] 9.0 mg/dL Normal 8.5-10.2 [facility] Comment on above: Order Comment: Speci men Type: BLOOD SPECIMENOrdering Facility: [facility] Address: [address] [place] [address] Performed By: #### 2 4323-8, , 2776-09, 3083- ####[facility] LABCLIA [id number] [place] [address] [place] Chloride [Moles/Vol] 107 mmol/L High 97-105 [facility] Comment on above: Order Comment: Speci men Type: BLOOD SPECIMENOrdering Facility: [facility] Address: [address] Performed By: #### 2 4323-8, , 2776-09, 308- ####[facility] LABCLIA [id number] [address] [id number] [place] CO2 [Moles/Vol] 23 mmol/L Normal 22-30 [facility] Comment on above: Order Comment: Speci men Type: BLOOD SPECIMENOrdering Facility: [facility] Address: [address] [id number] Performed By: #### 2 4323-8, 40605-0, 2776-09, 3083-09 ####[facility] LABCLIA [id number] [place] [address] [place] Creatinine [Mass/Vol] 0.99 mg/dL High 0.58-0.96 [facility] Comment on above: Order Comment: Speci men Type: BLOOD SPECIMENOrdering Facility: [facility] Address: [address] Performed By: #### 2 4323-8, , 2776-09, 3083-09 ####[facility] LABCLIA [id number] [place] [address] [place] Creatinine and Glomerular filtration rate.predicted panel (S/P/Bld) 62 mL/min/1.73m??? Normal >=60 [facility] Comment on above: Order Comment: Speci men Type: BLOOD SPECIMENOrdering Facility: [facility] Address: [address] [place], [place] [address] Result Comment: Berenice mated Glomerular Filtration Rate [...] actual GFR. Performed By: #### 2 4323-8, 13542-2, 2776-09, 3083-09 ####[facility] LABCLIA [id number] [address] [id number] [place] Glucose [Mass/Vol] 106 mg/dL High 74-99 [facility] Comment on above: Order Comment: Speci men Type: BLOOD SPECIMENOrdering Facility: [facility] Address: [address] [place], [place] [address], [place] [address] Result Comment: The [place] [employer] (ADA) provides guidance for cutoff [...] Standards of Medical Care in Diabetes 2016, [place] [employer]. Diabetes Care. 2016.39(Suppl 1). Performed By: #### 2 4323-8, , 2776-, 3083- ####[facility] LABCLIA [id number] [place] [address] [place] Potassium [Moles/Vol] 3.3 mmol/L Low 3.7-5.1 [facility] Comment on above: Order Comment: Speci men Type: BLOOD SPECIMENOrdering Facility: [facility] Address: [address] [id number] Performed By: #### 2 4322-8, , 2776-09, 3083- ####[facility] LABIA [id number] [place] [address] [place] Protein [Mass/Vol] 5.7 g/dL Low 6.3-8.0 [facility] Comment on above: Order Comment: Speci men Type: BLOOD SPECIMENOrdering Facility: [facility] Address: [address] [id number] Performed By: #### 2 432-8, , 2776-09, 3083- ####[facility] LABCLIA [id number] [place] [address] [place] Sodium [Moles/Vol] 141 mmol/L Normal 136-144 [facility] Comment on above: Order Comment: Speci men Type: BLOOD SPECIMENOrdering Facility: [facility] Address: [address] [place] [address] Performed By: #### 2 4323-8, 63017-3, 2776-09, 3083-1 ####[facility] LABCLIA [id number] [place] [address] [place] Urea nitrogen [Mass/Vol] 11 mg/dL Normal 7-21 [facility] Comment on above: Order Comment: Speci men Type: BLOOD SPECIMENOrdering Facility: [facility] Address: [address] [place] [address] Performed By: #### 2 4323-8, , 2776-09, 308- ####[facility] LABCLIA [id number] [place] [address] [place] ECG COMPLETEon 06-04-2023 ECG COMPLETE Normal [facility] Magnesium SerPl-mCncon 06-04 Magnesium [Mass/Vol] 2.0 mg/dL Normal 1.7-2.3 [facility] Comment on above: Order Comment: Speci men Type: BLOOD SPECIMENOrdering Facility: [facility] Address: [address] [place] [address] Performed By: #### 2 4323-8, , 2776-09, 308- ####[facility] LABCLIA [id number] [place] [address] [place] Phosphate SerPl-mCncon 06-04 Phosphate [Mass/Vol] 2.7 mg/dL Normal 2.7-4.8 [facility] Comment on above: Order Comment: Speci men Type: BLOOD SPECIMENOrdering Facility: [facility] Address: [address] [place] [address] Performed By: #### 2 4323-8, 34050-5, 2776-, 3084-1 ####[facility] LABCLIA [id number] [address] [place] SOCIAL WORKon 06-04-2023 SOCIAL WORK Normal [facility] Urate SerPl-mCncon 3 Urate [Mass/Vol] 3.1 mg/dL Normal 2.5-6.6 [facility] Comment on above: Order Comment: Speci men Type: BLOOD SPECIMENOrdering Facility: [facility] Address: [address] [place] [address] Performed By: #### 2 4323-8, 79698-7, 2777-1, 3084-1 ####[facility] LABCLIA [id number] [address] BLOOD BANK PLACEHOLDER, CHANDLER SFUSION REACTION PATHOLOGY REPORTon 06-03-2023 BLOOD BANK REPORT, TRANSFUSION REACTION PATHOLOGY REPORT See Pathology Report Normal [facility] Comment on above: Order Comment: Speci men Type: BLOOD SPECIMENOrdering Facility: [facility] Address: [address] [place] [address] Performed By: #### T NILES, TRXNU, [id number] ####[facility] BLOOD BANKIA [id number] [address] OF [place]#### [id number] ####[facility] LABCLIA [id number] [address] [place] BLOOD BANK REPORT, TRANSFUSI ON REACTION PATHOLOGY REPORTon 06-03-2023 PATHOLOGY INTERPRETATION Normal [facility] Comment on above: Order Comment: Speci men Type: BLOOD SPECIMENOrdering Facility: [facility] Address: [address] [place] [address] Result Comment: Date of symptom onset:June 05ertinent medical history:67-year-old female with past medical history of breast cancer status post lumpectomy and adjuvant radiation therapy and recent diagnosis of acute myeloid leukemia. Patient labs demonstrate pancytopenia and need for platelet transfusion.Transfusion Information:Date Component DIN Start time (h) End time (h) Amount transfused (mL)Monday, June 05, 2023 Platelet [id number] 0328 0440 300 mLSymptoms, signs, and onset:Itching [...] Further workup is not indicated.Diagnosis:Allergic transfusion reaction (non-severe)Summary prepared by Dr. Charlene Gunderson DO, Pathology Resident.Discussed with, reviewed, and revised by Dr. Javier Koenig MD, Transfusion Medicine Staff Physician. Performed By: #### T SCR, TRXNU, [id number] ####[facility] BLOOD BANKCLIA [id number] [place] [address] [place]#### [id number] ####[facility] LABCLIA [id number] [place] [address] [place] C diff Tox gens Stl Ql KIAH+p robeon 06-03-2023 C. difficile toxin genes KIAH+probe Ql (Stl) Negative Normal Negative for C. difficile toxin by PCR [facility] Comment on above: Order Comment: Speci men Type: STOOL SPECIMENOrdering Facility: [facility] Address: [address] [place], [place] [address] Performed By: #### 5 4067-4 ####[facility] LABCLIA [id number] [place] [address] [place] CBC W Auto Differential pane l (Bld)on 06-03-2023 Anisocytosis Ql (Bld) Present Normal [facility] Comment on above: Order Comment: Speci men Type: BLOOD SPECIMENOrdering Facility: [facility] Address: [address] [place] [address] Performed By: #### 5 7021-8 ####[facility] LABCLIA [id number] [place] [address] [place] Basophils (Bld) [#/Vol] 0.00 10*3/uL Normal <0.11 [facility] Comment on above: Order Comment: Speci men Type: BLOOD SPECIMENOrdering Facility: [facility] Address: [address] [place] [address] Performed By: #### 5 7021-8 ####[facility] LABCLIA [id number] [address] [place] Basophils/100 WBC (Bld) 0.0 % Normal [facility] Comment on above: Order Comment: Speci men Type: BLOOD SPECIMENOrdering Facility: [facility] Address: [address] [place] [address] Performed By: #### 5 7021-8 ####[facility] LABCLIA [id number] [address] [place] BLAST% 3.0 % High <=0.0 [facility] Comment on above: Order Comment: Speci men Type: BLOOD SPECIMENOrdering Facility: [facility] Address: [address] [place], [place] [address] Performed By: #### 5 7021-8 ####[facility] LABCLIA [id number] [place] [address] [place] Differential cell count method Nom (Bld) Manual Normal [facility] Comment on above: Order Comment: Speci men Type: BLOOD SPECIMENOrdering Facility: [facility] Address: [address] [place], [place] [address] Performed By: #### 5 7021-8 ####[facility] LABCLIA [id number] [place] [address] [place] Eosinophils (Bld) [#/Vol] 0.02 10*3/uL Normal <0.46 [facility] Comment on above: Order Comment: Speci men Type: BLOOD SPECIMENOrdering Facility: [facility] Address: [address] Performed By: #### 5 7021-8 ####[facility] LABCLIA [id number] [place] [address] [place] Eosinophils/100 WBC (Bld) 2.0 % Normal [facility] Comment on above: Order Comment: Speci men Type: BLOOD SPECIMENOrdering Facility: [facility] Address: [address] [place], [place] [address] Performed By: #### 5 7021-8 ####[facility] LABCLIA [id number] [place] [address] [place] Erythrocyte distribution width (RBC) [Ratio] 19.9 % High 11.5-15.0 [facility] Comment on above: Order Comment: Speci men Type: BLOOD SPECIMENOrdering Facility: [facility] Address: [address] [place], [place] [address] Performed By: #### 5 7021-8 ####[facility] LABCLIA [id number] [place] [address] [place] Hematocrit (Bld) [Volume fraction] 19.0 % Low 36.0-46.0 [facility] Comment on above: Order Comment: Speci men Type: BLOOD SPECIMENOrdering Facility: [facility] Address: [address] [place], [place] [address] Performed By: #### 5 7021-8 ####[facility] LABCLIA [id number] [place] [address] [place] Hemoglobin (Bld) [Mass/Vol] 6.5 g/dL Low 11.5-15.5 [facility] Comment on above: Order Comment: Speci men Type: BLOOD SPECIMENOrdering Facility: [facility] Address: [address] [place] [address] Performed By: #### 5 7021-8 ####[facility] LABCLIA [id number] [place] [address] [place] Lymphocytes (Bld) [#/Vol] 0.90 10*3/uL Low 1.00-4.00 [facility] Comment on above: Order Comment: Speci men Type: BLOOD SPECIMENOrdering Facility: [facility] Address: [address] [place] [address] Performed By: #### 5 7021-8 ####[facility] LABCLIA [id number] [place] [address] [place] Lymphocytes/100 WBC (Bld) 76.0 % Normal [facility] Comment on above: Order Comment: Speci men Type: BLOOD SPECIMENOrdering Facility: [facility] Address: [address] [place], [place] [address] Performed By: #### 5 7021-8 ####[facility] LABCLIA [id number] [place] [address] [place] MCH (RBC) [Entitic mass] 33.2 pg Normal 26.0-34.0 [facility] Comment on above: Order Comment: Speci men Type: BLOOD SPECIMENOrdering Facility: [facility] Address: [address] [place], [place] [address] Performed By: #### 5 7021-8 ####[facility] LABCLIA [id number] [place] [address] [place] MCHC (RBC) [Mass/Vol] 34.2 g/dL Normal 30.5-36.0 [facility] Comment on above: Order Comment: Speci men Type: BLOOD SPECIMENOrdering Facility: [facility] Address: [address] Performed By: #### 5 7021-8 ####[facility] LABCLIA [id number] [address] [place] MCV (RBC) [Entitic vol] 96.9 fL Normal 80.0-100.0 [facility] Comment on above: Order Comment: Speci men Type: BLOOD SPECIMENOrdering Facility: [facility] Address: [address] Performed By: #### 5 7021-8 ####[facility] LABCLIA [id number] [place] [address] [place] Monocytes (Bld) [#/Vol] 0.02 10*3/uL Normal <0.87 [facility] Comment on above: Order Comment: Speci men Type: BLOOD SPECIMENOrdering Facility: [facility] Address: [address] Performed By: #### 5 7021-8 ####[facility] LABCLIA [id number] [place] [address] [place] Monocytes/100 WBC (Bld) 2.0 % Normal [facility] Comment on above: Order Comment: Speci men Type: BLOOD SPECIMENOrdering Facility: [facility] Address: [address] Performed By: #### 5 7021-8 ####[facility] LABCLIA [id number] [place] [address] [place] Neutrophils (Bld) [#/Vol] 0.20 10*3/uL Low 1.45-7.50 [facility] Comment on above: Order Comment: Speci men Type: BLOOD SPECIMENOrdering Facility: [facility] Address: [address] [place], [place] [address] Performed By: #### 5 7021-8 ####[facility] LABCLIA [id number] [place] [address] [place] Neutrophils/100 WBC (Bld) 17.0 % Normal [facility] Comment on above: Order Comment: Speci men Type: BLOOD SPECIMENOrdering Facility: [facility] Address: [address] [place] [address] Performed By: #### 5 7021-8 ####[facility] LABCLIA [id number] [place] [address] [place] Nucleated RBC (Bld) [#/Vol] 10*3/uL Normal <0.01 [facility] Comment on above: Order Comment: Speci men Type: BLOOD SPECIMENOrdering Facility: [facility] Address: [address] [place] [address] Performed By: #### 5 7021-8 ####[facility] LABCLIA [id number] [place] [address] [place] Nucleated RBC/100 WBC (Bld) [Ratio] 0.0 /100 WBC Normal [facility] Comment on above: Order Comment: Speci men Type: BLOOD SPECIMENOrdering Facility: [facility] Address: [address] [place], [place] [address] Performed By: #### 5 7021-8 ####[facility] LABCLIA [id number] [place] [address] [place] Ovalocytes LM Ql (Bld) Few Normal [facility] Comment on above: Order Comment: Speci men Type: BLOOD SPECIMENOrdering Facility: [facility] Address: [address] [place], [place] [address] Performed By: #### 5 7021-8 ####[facility] LABCLIA [id number] [place] [address] [place] Platelet mean volume (Bld) [Entitic vol] Normal [facility] Comment on above: Order Comment: Speci men Type: BLOOD SPECIMENOrdering Facility: [facility] Address: [address] Result Comment: Unab le to Report. Performed By: #### 5 7021-8 ####[facility] LABCLIA [id number] [address] OF [place] Platelets (Bld) [#/Vol] 14 10*3/uL Low 150-400 [facility] Comment on above: Order Comment: Speci men Type: BLOOD SPECIMENOrdering Facility: [facility] Address: [address] Result Comment: Resu lts checked and verified.No clot detected. Performed By: #### 5 7021-8 ####[facility] LABIA [id number] [place] [address] [place] Platelets Estimate (Bld) [#/Vol] Decreased Normal [facility] Comment on above: Order Comment: Speci men Type: BLOOD SPECIMENOrdering Facility: [facility] Address: [address] [place] [address] Performed By: #### 5 7021-8 ####[facility] LABIA [id number] [address] [place] RBC (Bld) [#/Vol] 1.96 10*6/uL Low 3.90-5.20 [facility] Comment on above: Order Comment: Speci men Type: BLOOD SPECIMENOrdering Facility: [facility] Address: [address] [place] [address] Performed By: #### 5 7021-8 ####[facility] LABIA [id number] [address] [place] RBC FRAGMENTS Few Abnormal None Seen [facility] Comment on above: Order Comment: Speci men Type: BLOOD SPECIMENOrdering Facility: [facility] Address: [address] Performed By: #### 5 7021-8 ####[facility] LABCLIA [id number] [place] [address] [place] RED CELL MORPH Reviewed: see result s of individual morphologies Normal [facility] Comment on above: Order Comment: Speci men Type: BLOOD SPECIMENOrdering Facility: [facility] Address: [address] [place] [address] Performed By: #### 5 7021-8 ####[facility] LABCLIA [id number] [place] [address] [place] WBC (Bld) [#/Vol] 1.18 10*3/uL Low 3.70-11.00 [facility] Comment on above: Order Comment: Speci men Type: BLOOD SPECIMENOrdering Facility: [facility] Address: [address] [place] [address] Result Comment: No c lot detected. Performed By: #### 5 7021-8 ####[facility] LABCLIA [id number] [place] [address] [place] Comprehensive metabolic 2000 panelon 06-03-2023 Albumin [Mass/Vol] 3.3 g/dL Low 3.9-4.9 [facility] Comment on above: Order Comment: Speci men Type: BLOOD SPECIMENOrdering Facility: [facility] Address: [address] [place] [address] Performed By: #### 2 4323-8, 15592-1, 277-1, 3084-1 ####[facility] LABCLIA [id number] [place] [address] [place] ALP [Catalytic activity/Vol] 50 U/L Normal 34-123 [facility] Comment on above: Order Comment: Speci men Type: BLOOD SPECIMENOrdering Facility: [facility] Address: [address] [place] [address] Performed By: #### 2 4323-8, 06857-9, 277-1, 3084-1 ####[facility] LABCLIA [id number] [place] [address] [place] ALT [Catalytic activity/Vol] 12 U/L Normal 7-38 [facility] Comment on above: Order Comment: Speci men Type: BLOOD SPECIMENOrdering Facility: [facility] Address: [address] [place] [address] Performed By: #### 2 4323-8, 49610-0, 2776-, 308-1 ####[facility] LABCLIA [id number] [place] [address] [place] Anion gap [Moles/Vol] 12 mmol/L Normal 9-18 [facility] Comment on above: Order Comment: Speci men Type: BLOOD SPECIMENOrdering Facility: [facility] Address: [address] [place] [address] Performed By: #### 2 4323-8, , 2776-, 308-1 ####[facility] LABIA [id number] [place] [address] [place] AST [Catalytic activity/Vol] 12 U/L Low 13-35 [facility] Comment on above: Order Comment: Speci men Type: BLOOD SPECIMENOrdering Facility: [facility] Address: [address] [place] [address] Performed By: #### 2 4323-8, 86548-1, 2776-09, 308-1 ####[facility] LABIA [id number] [place] [address] [place] Bilirubin [Mass/Vol] 0.4 mg/dL Normal 0.2-1.3 [facility] Comment on above: Order Comment: Speci men Type: BLOOD SPECIMENOrdering Facility: [facility] Address: [address] [place], [place] [address] Performed By: #### 2 4323-8, 25743-7, 2776-, 308-1 ####[facility] LABCLIA [id number] [place] [address] [place] Calcium [Mass/Vol] 9.0 mg/dL Normal 8.5-10.2 [facility] Comment on above: Order Comment: Speci men Type: BLOOD SPECIMENOrdering Facility: [facility] Address: [address] [place] [address] Performed By: #### 2 4323-8, 37087-5, 2776-, 3083-1 ####[facility] LABCLIA [id number] [place] [address] [place] Chloride [Moles/Vol] 108 mmol/L High 97-105 [facility] Comment on above: Order Comment: Speci men Type: BLOOD SPECIMENOrdering Facility: [facility] Address: [address] [place] [address] Performed By: #### 2 4323-8, 55761-2, 2776-, 3083-1 ####[facility] LABCLIA [id number] [place] [address] [place] CO2 [Moles/Vol] 21 mmol/L Low 22-30 [facility] Comment on above: Order Comment: Speci men Type: BLOOD SPECIMENOrdering Facility: [facility] Address: [address] [place] [address] Performed By: #### 2 4323-8, 09743-9, 2776-09, 3083-1 ####[facility] LABCLIA [id number] [place] [address] [place] Creatinine [Mass/Vol] 0.93 mg/dL Normal 0.58-0.96 [facility] Comment on above: Order Comment: Speci men Type: BLOOD SPECIMENOrdering Facility: [facility] Address: [address] [place] [address] Performed By: #### 2 4323-8, 70164-7, 2776-, 308-1 ####[facility] LABCLIA [id number] [place] [address] [place] Creatinine and Glomerular filtration rate.predicted panel (S/P/Bld) 67 mL/min/1.73m??? Normal >=60 [facility] Comment on above: Order Comment: Elvia escobar Type: BLOOD SPECIMENOrdering Facility: [facility] Address: [address] [place] [address] Result Comment: Berenice mated Glomerular Filtration Rate [...] actual GFR. Performed By: #### 2 4323-8, 29691-8, 2777-1, 3084-1 ####[facility] LABCLIA [id number] [place] [address] [place] Glucose [Mass/Vol] 111 mg/dL High 74-99 [facility] Comment on above: Order Comment: Elvia escobar Type: BLOOD SPECIMENOrdering Facility: [facility] Address: [address] [place] [address] Result Comment: The [place] [employer] (ADA) provides guidance for cutoff [...] Standards of Medical Care in Diabetes 2016, [place] [employer]. Diabetes Care. 2016.39(Suppl 1). Performed By: #### 2 4323-8, 26133-0, 2777-1, 3084-1 ####[facility] LABCLIA [id number] [address] [address] [place] Potassium [Moles/Vol] 3.3 mmol/L Low 3.7-5.1 [facility] Comment on above: Order Comment: Speci men Type: BLOOD SPECIMENOrdering Facility: [facility] Address: [address] [place] [address] Performed By: #### 2 4323-8, 69186-7, 2776-09, 3083-1 ####[facility] LABCLIA [id number] [place] [address] [place] Protein [Mass/Vol] 5.3 g/dL Low 6.3-8.0 [facility] Comment on above: Order Comment: Speci men Type: BLOOD SPECIMENOrdering Facility: [facility] Address: [address] [place] [address] Performed By: #### 2 4323-8, 93534-5, 2776-09, 3083-1 ####[facility] LABIA [id number] [place] [address] [place] Sodium [Moles/Vol] 141 mmol/L Normal 136-144 [facility] Comment on above: Order Comment: Speci men Type: BLOOD SPECIMENOrdering Facility: [facility] Address: [address] [place], [place] [address] Performed By: #### 2 4323-8, 84937-3, 2776-, 308-1 ####[facility] LABCLIA [id number] [address] [address] [place] Urea nitrogen [Mass/Vol] 9 mg/dL Normal 7-21 [facility] Comment on above: Order Comment: Speci men Type: BLOOD SPECIMENOrdering Facility: [facility] Address: [address] [place] [address] Performed By: #### 2 4323-8, 12350-0, 2776-, 308-1 ####[facility] LABCLIA [id number] [place] [address] [place] Magnesium [facility] 06-03 Magnesium [Mass/Vol] 1.9 mg/dL Normal 1.7-2.3 [facility] Comment on above: Order Comment: Speci men Type: BLOOD SPECIMENOrdering Facility: [facility] Address: [address] [place] [address] Performed By: #### 2 4323-8, 90484-0, 2777-1, 3084-1 ####[facility] LABIA [id number] [place] [address] [place] Phosphate SerPl-mCncon 06-03 Phosphate [Mass/Vol] 3.0 mg/dL Normal 2.7-4.8 [facility] Comment on above: Order Comment: Speci men Type: BLOOD SPECIMENOrdering Facility: [facility] Address: [address] [place] [address] Performed By: #### 2 4323-8, 35359-8, 2777-1, 3084-1 ####[facility] LABIA [id number] [place] [address] [place] TYPE + SCREENon 06-03-2023 ABO O Normal [facility] Comment on above: Order Comment: Speci men Type: BLOOD SPECIMENOrdering Facility: [facility] Address: [address] [place] [address] Performed By: #### T SCR, TRXNU, [id number] ####[facility] BLOOD BANKIA [id number] [place] [address] [place]#### [id number] ####[facility] LABCLIA [id number] [place] [address] [place] HISTORICAL AB SCR STATUS Negative Normal [facility] Comment on above: Order Comment: Speci men Type: BLOOD SPECIMENOrdering Facility: [facility] Address: [address] Performed By: #### T SCR, TRXNU, [id number] ####[facility] BLOOD BANKCLIA [id number] [place] [address] [place]#### [id number] ####[facility] LABCLIA [id number] [place] [address] [place] Rh Nom (Bld) Positive Normal [facility] Comment on above: Order Comment: Speci men Type: BLOOD SPECIMENOrdering Facility: [facility] Address: [address] [place] [address] Performed By: #### T SCR, TRXNU, [id number] ####[facility] BLOOD BANKIA [id number] [address] [place]#### [id number] ####[facility] LABCLIA [id number] [address] [place] TYPE AND SCREEN EXPIRATION 06/06/2023 23:59 Normal [facility] Comment on above: Order Comment: Speci men Type: BLOOD SPECIMENOrdering Facility: [facility] Address: [address] [address] Performed By: #### T SCR, TRXNU, [id number] ####[facility] BLOOD BANKCLIA [id number] [address] [place]#### [id number] ####[facility] LABCLIA [id number] [address] [place] URTICARIAL REACTIONon 2022 OK TO TRANSFUSE Yes Normal [facility] Comment on above: Order Comment: Speci men Type: BLOOD SPECIMENOrdering Facility: [facility] Address: [address] [place] [address] Performed By: #### T SCR, TRXNU, [id number] ####[facility] BLOOD BANKCLIA [id number] [place] [address] [place]#### [id number] ####[facility] LABCLIA [id number] [address] [place] Urate SerPl-mCncon 3 Urate [Mass/Vol] 3.4 mg/dL Normal 2.5-6.6 [facility] Comment on above: Order Comment: Speci men Type: BLOOD SPECIMENOrdering Facility: [facility] Address: [address] [place] [address] Performed By: #### 2 4323-8, 28730-1, 2777-1, 3084-1 ####[facility] LABIA [id number] [place] [address] [place] BMT REC INIT W/Uon 3 ALLOGEN RESULTS TO FOLLOW See Allogen report to follow Normal [facility] Comment on above: Order Comment: Speci men Type: BLOOD SPECIMENOrdering Facility: [facility] Address: [address] [place] [address] Performed By: #### B MTRIW ####[facility] LABORATORIESIA [id number] [place] [address] [place] CBC W Auto Differential pane l (Bld)on 06-02-2023 Anisocytosis Ql (Bld) Present Normal [facility] Comment on above: Order Comment: Speci men Type: BLOOD SPECIMENOrdering Facility: [facility] Address: [address] [place] [address] Performed By: #### 5 7021-8 ####[facility] LABCLIA [id number] [address] [place] Basophils (Bld) [#/Vol] 0.00 10*3/uL Normal <0.11 [facility] Comment on above: Order Comment: Speci men Type: BLOOD SPECIMENOrdering Facility: [facility] Address: [address] Performed By: #### 5 7021-8 ####[facility] LABCLIA [id number] [place] [address] [place] Basophils/100 WBC (Bld) 0.0 % Normal [facility] Comment on above: Order Comment: Speci men Type: BLOOD SPECIMENOrdering Facility: [facility] Address: [address] [place] [address] Performed By: #### 5 7021-8 ####[facility] LABCLIA [id number] [place] [address] [place] BLAST% 2.0 % High <=0.0 [facility] Comment on above: Order Comment: Speci men Type: BLOOD SPECIMENOrdering Facility: [facility] Address: [address] [place], [place] [address] Performed By: #### 5 7021-8 ####[facility] LABCLIA [id number] [place] [address] [place] Differential cell count method Nom (Bld) Manual Normal [facility] Comment on above: Order Comment: Speci men Type: BLOOD SPECIMENOrdering Facility: [facility] Address: [address] [place], [place] [address] Performed By: #### 5 7021-8 ####[facility] LABCLIA [id number] [place] [address] [place] Eosinophils (Bld) [#/Vol] 0.02 10*3/uL Normal <0.46 [facility] Comment on above: Order Comment: Speci men Type: BLOOD SPECIMENOrdering Facility: [facility] Address: [address] [place], [place] [address] Performed By: #### 5 7021-8 ####[facility] LABCLIA [id number] [place] [address] [place] Eosinophils/100 WBC (Bld) 1.0 % Normal [facility] Comment on above: Order Comment: Speci men Type: BLOOD SPECIMENOrdering Facility: [facility] Address: [address] [place] [address] Performed By: #### 5 7021-8 ####[facility] LABCLIA [id number] [place] [address] [place] Erythrocyte distribution width (RBC) [Ratio] 20.5 % High 11.5-15.0 [facility] Comment on above: Order Comment: Speci men Type: BLOOD SPECIMENOrdering Facility: [facility] Address: [address] [place] [address] Performed By: #### 5 7021-8 ####[facility] LABCLIA [id number] [place] [address] [place] Hematocrit (Bld) [Volume fraction] 20.6 % Low 36.0-46.0 [facility] Comment on above: Order Comment: Speci men Type: BLOOD SPECIMENOrdering Facility: [facility] Address: [address] [place] [address] Performed By: #### 5 7021-8 ####[facility] LABIA [id number] [place] [address] [place] Hemoglobin (Bld) [Mass/Vol] 7.0 g/dL Low 11.5-15.5 [facility] Comment on above: Order Comment: Speci men Type: BLOOD SPECIMENOrdering Facility: [facility] Address: [address] [place], [place] [address] Performed By: #### 5 7021-8 ####[facility] LABIA [id number] [place] [address] [place] Lymphocytes (Bld) [#/Vol] 1.46 10*3/uL Normal 1.00-4.00 [facility] Comment on above: Order Comment: Speci men Type: BLOOD SPECIMENOrdering Facility: [facility] Address: [address] Performed By: #### 5 7021-8 ####[facility] LABCLIA [id number] [address] [place] [facility] Lymphocytes/100 WBC (Bld) 87.0 % Normal [facility] Comment on above: Order Comment: Speci men Type: BLOOD SPECIMENOrdering Facility: [facility] Address: [address] [place], [place] [address] Performed By: #### 5 7021-8 ####[facility] LABIA [id number] [place] [address] [place] MCH (RBC) [Entitic mass] 33.0 pg Normal 26.0-34.0 [facility] Comment on above: Order Comment: Speci men Type: BLOOD SPECIMENOrdering Facility: [facility] Address: [address] Performed By: #### 5 7021-8 ####[facility] LABIA [id number] [address] [place] MCHC (RBC) [Mass/Vol] 34.0 g/dL Normal 30.5-36.0 [facility] Comment on above: Order Comment: Speci men Type: BLOOD SPECIMENOrdering Facility: [facility] Address: [address] Performed By: #### 5 7021-8 ####[facility] LABCLIA [id number] [place] [address] [place] MCV (RBC) [Entitic vol] 97.2 fL Normal 80.0-100.0 [facility] Comment on above: Order Comment: Speci men Type: BLOOD SPECIMENOrdering Facility: [facility] Address: [address] [place], [place] [address] Performed By: #### 5 7021-8 ####[facility] LABCLIA [id number] [place] [address] [place] Monocytes (Bld) [#/Vol] 0.00 10*3/uL Normal <0.87 [facility] Comment on above: Order Comment: Speci men Type: BLOOD SPECIMENOrdering Facility: [facility] Address: [address] [place] [address] Performed By: #### 5 7021-8 ####[facility] LABCLIA [id number] [place] [address] [place] Monocytes/100 WBC (Bld) 0.0 % Normal [facility] Comment on above: Order Comment: Speci men Type: BLOOD SPECIMENOrdering Facility: [facility] Address: [address] [place], [place] [address] Performed By: #### 5 7021-8 ####[facility] LABCLIA [id number] [place] [address] [place] Neutrophils (Bld) [#/Vol] 0.17 10*3/uL Low 1.45-7.50 [facility] Comment on above: Order Comment: Speci men Type: BLOOD SPECIMENOrdering Facility: [facility] Address: [address] [place], [place] [address] Performed By: #### 5 7021-8 ####[facility] LABCLIA [id number] [place] [address] [place] Neutrophils/100 WBC (Bld) 10.0 % Normal [facility] Comment on above: Order Comment: Speci men Type: BLOOD SPECIMENOrdering Facility: [facility] Address: [address] [place], [place] [address] Performed By: #### 5 7021-8 ####[facility] LABCLIA [id number] [place] [address] [place] Nucleated RBC (Bld) [#/Vol] 10*3/uL Normal <0.01 [facility] Comment on above: Order Comment: Speci men Type: BLOOD SPECIMENOrdering Facility: [facility] Address: [address] Performed By: #### 5 7021-8 ####[facility] LABCLIA [id number] [place] [address] [place] Nucleated RBC/100 WBC (Bld) [Ratio] 0.0 /100 WBC Normal [facility] Comment on above: Order Comment: Speci men Type: BLOOD SPECIMENOrdering Facility: [facility] Address: [address] [address] Performed By: #### 5 7021-8 ####[facility] LABIA [id number] [place] [address] [place] Ovalocytes LM Ql (Bld) Few Normal [facility] Comment on above: Order Comment: Speci men Type: BLOOD SPECIMENOrdering Facility: [facility] Address: [address] [place] [address] Performed By: #### 5 7021-8 ####[facility] LABIA [id number] [place] [address] [place] Platelet mean volume (Bld) [Entitic vol] Normal [facility] Comment on above: Order Comment: Speci men Type: BLOOD SPECIMENOrdering Facility: [facility] Address: [address] [place], [place] [address] Result Comment: Unab le to Report. Performed By: #### 5 7021-8 ####[facility] LABIA [id number] [place] [address] [place] Platelets (Bld) [#/Vol] 26 10*3/uL Low 150-400 [facility] Comment on above: Order Comment: Speci men Type: BLOOD SPECIMENOrdering Facility: [facility] Address: [address] [place] [address] Result Comment: Resu lts checked and verified.No clot detected. Performed By: #### 5 7021-8 ####[facility] LABCLIA [id number] [place] [address] [place] Platelets Estimate (Bld) [#/Vol] Decreased Normal [facility] Comment on above: Order Comment: Speci men Type: BLOOD SPECIMENOrdering Facility: [facility] Address: [address] [place] [address] Performed By: #### 5 7021-8 ####[facility] LABCLIA [id number] [place] [address] [place] Polychromasia LM Ql (Bld) Slight Normal [facility] Comment on above: Order Comment: Speci men Type: BLOOD SPECIMENOrdering Facility: [facility] Address: [address] [place] [address] Performed By: #### 5 7021-8 ####[facility] LABCLIA [id number] [place] [address] [place] RBC (Bld) [#/Vol] 2.12 10*6/uL Low 3.90-5.20 [facility] Comment on above: Order Comment: Speci men Type: BLOOD SPECIMENOrdering Facility: [facility] Address: [address] [place] [address] Performed By: #### 5 7021-8 ####[facility] LABCLIA [id number] [place] [address] [place] RBC FRAGMENTS Few Abnormal None Seen [facility] Comment on above: Order Comment: Speci men Type: BLOOD SPECIMENOrdering Facility: [facility] Address: [address] [place], [place] [address] Performed By: #### 5 7021-8 ####[facility] LABIA [id number] [place] [address] [place] RED CELL MORPH Reviewed: see result s of individual morphologies Normal [facility] Comment on above: Order Comment: Speci men Type: BLOOD SPECIMENOrdering Facility: [facility] Address: [address] [place] [address] Performed By: #### 5 7021-8 ####[facility] [id number] [place] [address] [place] WBC (Bld) [#/Vol] 1.68 10*3/uL Low 3.70-11.00 [facility] Comment on above: Order Comment: Speci men Type: BLOOD SPECIMENOrdering Facility: [facility] Address: [address] [place] [address] Result Comment: No c lot detected. Performed By: #### 5 7021-8 ####[facility] [id number] [address] [place] CMV IgG Qnon 06-02-2023 CMV IGG QUAL Negative Normal Negative [facility] Comment on above: Order Comment: Speci men Type: BLOOD SPECIMENOrdering Facility: [facility] Address: [address] [place] [address] Result Comment: No s erological evidence of past exposure to Cytomegalovirus. Cannot exclude recent infection if the specimen collected within 4-6 weeks after infection. Performed By: #### 7 852-7 ####[facility] LABIA [id number] [place] [address] [place] CMV IgG SerPl-aCncon 023 CMV IgG Qn <0.20 Normal [facility] Comment on above: Order Comment: Speci [facility] Type: BLOOD SPECIMENOrdering Facility: [facility] Address: [address] [place] [address] Result Comment: The magnitude of the measured result is not indicative of the amount of antibody present.U/mL values are interpreted as follows:Negative <0.6Equivocal 0.6 to <0.70Positive >=0.70 Performed By: #### 7 852-7 ####[facility] LABIA [id number] [place] [address] [place] Comprehensive metabolic 2000 panelon 06-02-2023 Albumin [Mass/Vol] 3.4 g/dL Low 3.9-4.9 [facility] Comment on above: Order Comment: Speci men Type: BLOOD SPECIMENOrdering Facility: [facility] Address: [address] [place] [address] Performed By: #### 2 4323-8, 97953-7, 2776-, 308-1 ####[facility] LABCLIA [id number] [place] [address] [place] ALP [Catalytic activity/Vol] 58 U/L Normal 34-123 [facility] Comment on above: Order Comment: Speci men Type: BLOOD SPECIMENOrdering Facility: [facility] Address: [address] [place] [address] Performed By: #### 2 4323-8, 52101-0, 2776-, 3083-1 ####[facility] LABCLIA [id number] [address] [place] ALT [Catalytic activity/Vol] 15 U/L Normal 7-38 [facility] Comment on above: Order Comment: Speci men Type: BLOOD SPECIMENOrdering Facility: [facility] Address: [address] [place] [address] Performed By: #### 2 4323-8, 12654-1, 2776-09, 308-1 ####[facility] LABCLIA [id number] [place] [address] [place] Anion gap [Moles/Vol] 11 mmol/L Normal 9-18 [facility] Comment on above: Order Comment: Speci men Type: BLOOD SPECIMENOrdering Facility: [facility] Address: [address] [place] [address] Performed By: #### 2 4323-8, 25742-2, 2776-1, 3084-1 ####[facility] LABCLIA [id number] [place] [address] [place] AST [Catalytic activity/Vol] 15 U/L Normal 13-35 [facility] Comment on above: Order Comment: Speci men Type: BLOOD SPECIMENOrdering Facility: [facility] Address: [address] [place] [address] Performed By: #### 2 4323-8, 36838-8, 2776-, 3083-1 ####[facility] LABCLIA [id number] [place] [address] [place] Bilirubin [Mass/Vol] 0.3 mg/dL Normal 0.2-1.3 [facility] Comment on above: Order Comment: Speci men Type: BLOOD SPECIMENOrdering Facility: [facility] Address: [address] [place] [address] Performed By: #### 2 4323-8, 72231-4, 2776-09, 3083- ####[facility] LABCLIA [id number] [place] [address] [place] Calcium [Mass/Vol] 8.2 mg/dL Low 8.5-10.2 [facility] Comment on above: Order Comment: Speci men Type: BLOOD SPECIMENOrdering Facility: [facility] Address: [address] [place] [address] Performed By: #### 2 4323-8, 86439-3, 2776-09, 3083-1 ####[facility] LABCLIA [id number] [place] [address] [place] Chloride [Moles/Vol] 107 mmol/L High 97-105 [facility] Comment on above: Order Comment: Speci men Type: BLOOD SPECIMENOrdering Facility: [facility] Address: [address] [place] [address] Performed By: #### 2 4323-8, 12671-2, 277-, 3083-1 ####[facility] LABCLIA [id number] [place] [address] [place] CO2 [Moles/Vol] 22 mmol/L Normal 22-30 [facility] Comment on above: Order Comment: Speci men Type: BLOOD SPECIMENOrdering Facility: [facility] Address: [address] [place] [address] Performed By: #### 2 4323-8, 98180-7, 2776-, 3083- ####[facility] LABCLIA [id number] [place] [address] [place] Creatinine [Mass/Vol] 0.96 mg/dL Normal 0.58-0.96 [facility] Comment on above: Order Comment: Speci men Type: BLOOD SPECIMENOrdering Facility: [facility] Address: [address] [place] [address] Performed By: #### 2 4323-8, , 2776-09, 3083- ####[facility] LABIA [id number] [address] [place] Creatinine and Glomerular filtration rate.predicted panel (S/P/Bld) 64 mL/min/1.73m??? Normal >=60 [facility] Comment on above: Order Comment: Speci men Type: BLOOD SPECIMENOrdering Facility: [facility] Address: [address] [place] [address] Result Comment: Berenice mated Glomerular Filtration Rate [...] actual GFR. Performed By: #### 2 4323-8, 76785-2, 2776-, 3083-1 ####[facility] LABCLIA [id number] [place] [id number] [place] Glucose [Mass/Vol] 105 mg/dL High 74-99 [facility] Comment on above: Order Comment: Speci men Type: BLOOD SPECIMENOrdering Facility: [facility] Address: [address] [place] [address] Result Comment: The [place] Diabetes Association (ADA) provides guidance for cutoff [...] Standards of Medical Care in Diabetes 2016, [place] [employer]. Diabetes Care. 2016.39(Suppl 1). Performed By: #### 2 4323-8, 45711-7, 277-, 3083-1 ####[facility] LABCLIA [id number] [place] [address] [place] Potassium [Moles/Vol] 3.3 mmol/L Low 3.7-5.1 [facility] Comment on above: Order Comment: Elvia escobar Type: BLOOD SPECIMENOrdering Facility: [facility] Address: [address] [place], [place] [address] Performed By: #### 2 4323-8, 12153-4, 27703-03, 3083-1 ####[facility] LABCLIA [id number] [place] [address] [place] Protein [Mass/Vol] 5.4 g/dL Low 6.3-8.0 [facility] Comment on above: Order Comment: Rochellei men Type: BLOOD SPECIMENOrdering Facility: [facility] Address: [address] [place], [place] [address] Performed By: #### 2 4323-8, 33318-6, 27703-03, 3083-1 ####[facility] LABIA [id number] [address] [address] [place] Sodium [Moles/Vol] 140 mmol/L Normal 136-144 [facility] Comment on above: Order Comment: Speci men Type: BLOOD SPECIMENOrdering Facility: [facility] Address: [address] [place] [address] Performed By: #### 2 4323-8, 62527-6, 2776-, 3084-1 ####[place] [id number] [place] [address] [place] Urea nitrogen [Mass/Vol] 13 mg/dL Normal 7-21 [facility] Comment on above: Order Comment: Speci men Type: BLOOD SPECIMENOrdering Facility: [facility] Address: [address] [place] [address] Performed By: #### 2 4323-8, 90139-1, 2776-, 3084-1 ####[place] [id number] [place] [address] [place] Magnesium SerPl-mCncon 06-02 Magnesium [Mass/Vol] 2.0 mg/dL Normal 1.7-2.3 [facility] Comment on above: Order Comment: Speci men Type: BLOOD SPECIMENOrdering Facility: [facility] Address: [address] [place], [place] [address] Performed By: #### 2 4323-8, 18258-3, 277-, 3084-1 ####[place] [id number] [place] [address] [place] Phosphate SerPl-mCncon 06-02 Phosphate [Mass/Vol] 3.8 mg/dL Normal 2.7-4.8 [facility] Comment on above: Order Comment: Speci men Type: BLOOD SPECIMENOrdering Facility: [facility] Address: [address] [place], [place] [address] Performed By: #### 2 4323-8, 31386-7, 2777-1, 3084-1 ####[facility] LABCLIA [id number] [address] [place] Urate SerPl-mCncon 3 Urate [Mass/Vol] 3.1 mg/dL Normal 2.5-6.6 [facility] Comment on above: Order Comment: Speci men Type: BLOOD SPECIMENOrdering Facility: [facility] Address: [address] [place] [address] Performed By: #### 2 4323-8, 80837-5, 277-1, 308-1 ####[facility] LABCLIA [id number] [address] OF [facility] ACUTE LEUKEMIA NGS PANEL, ZEENAT NE MARROWon 06-01-2023 ACUTE LEUK NGS PANEL, BONE MARROW Normal [facility] Comment on above: Order Comment: Speci men Type: BONE MARROW SPECIMENOrdering Facility: [facility] Address: [address] [place] [address] Result Comment: Acut e Leukemia NGS Panel, Bone MarrowLaboratory Accession Number: [id number]:Please see linked document and/or separate report for full result whenavailable.As reviewed by Zenia Mae, PhD, HCLD Performed By: #### F 3IM, HDMNGS ####[facility] LIMSCLIA [id number] [address] [place] AML MRD BY FCon 06-01-2023 AML MRD BY FC View results in Scan talia Documents link when available. Normal [facility] Comment on above: Order Comment: Speci men Type: BONE MARROW SPECIMENOrdering Facility: [facility] Address: [address] [place] [address] Performed By: #### A MLMRD ####[facility] MOLECULAR MICROCLIA [id number] [place] [address] BONE MARROW ANALYSISon 06-01 ADDENDUM 1: Normal [facility] Comment on above: Order Comment: Speci men Type: BONE MARROW SPECIMENOrdering Facility: [facility] Address: [address] [place] [address] Result Comment: Markus tional immunohistochemistry is performed to evaluate the B-cell rich lymphoid aggregates. The B-cells show no [...] 3:24 PM Performed By: #### B MRT ####[facility] LABCLIA [id number] [address] [place] CASE REPORT Normal [facility] Comment on above: Order Comment: Speci men Type: BONE MARROW SPECIMENOrdering Facility: [facility] Address: [address] [place] [address] Result Comment: Bone Marrow Pathology Report Case: [id number] Provider: Smith Hdez MD Collected: 06/01/2023 09:00 AMOrdering Location: [place] [address] Received: 06/01/2023 09:20 AMPathologist: Janet Saba, DOSpecimens: A) - BONE MARROW ASPIRATE RIGHT POSTERIOR ILIAC CREST B) - BONE MARROW BIOPSY RIGHT POSTERIOR ILIAC CREST C) - BONE MARROW CLOT RIGHT POSTERIOR ILIAC CREST D) - Peripheral blood smear Performed By: #### B MRT ####[facility] LABCLIA [id number] [place] [address] [place] DIAGNOSIS COMMENT Normal [facility] Comment on above: Order Comment: Speci men Type: BONE MARROW SPECIMENOrdering Facility: [facility] Address: [address] [place] [address] Result Comment: The patient is 67 years old female with past medical history of breast cancer status post treatment and recent diagnosis of acute myeloid leukemia with complex cytogenetics. 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, [facility], [facility], [facility], or [facility]) in a manner consistent with CLIA requirements. One or more of these tests have not been cleared or approved by the FDA. [facility] is regulated under CLIA as qualified to perform high-complexity testing. These tests are used for clinical purposes. They should not be regarded as investigational or for research. Positive and negative controls stain appropriately. Performed By: #### B MRT ####[facility] LABCLIA [id number] [facility] [id number] [address] [place] FINAL DIAGNOSIS Normal [facility] Comment on above: Order Comment: Speci men Type: BONE MARROW SPECIMENOrdering Facility: [facility] Address: [address] [place] [address] Result Comment: A-C: Bone marrow, aspirate smears, touch imprint, clot section and biopsy:- Acute myeloid leukemia.- Hypercellular marrow (50-60%) with trilineage hematopoiesis, granulocytic left shift, 28% blasts and multilineage dysplasia.- Few B-cell rich lymphoid aggregates.- See comment.D: Peripheral blood smear:- Pancytopenia with circulating blasts.JAC/AMENA 06/05/2023 Performed By: #### B MRT ####[facility] LABIA [id number] [address] [place] GROSS DESCRIPTION Normal [facility] Comment on above: Order Comment: Speci men Type: BONE MARROW SPECIMENOrdering Facility: [facility] Address: [address] [place] [address] Result Comment: A. B ONE MARROW ASPIRATE [...] Submitted for light microscopy.Gross examination performed at [facility], [address] [place], [place] [address] June 01, 2023 7:34 PM Performed By: #### B MRT ####[facility] LABIA [id number] [address] [place] MICROSCOPIC DESCRIPTION Normal [facility] Comment on above: Order Comment: Speci men Type: BONE MARROW SPECIMENOrdering Facility: [facility] Address: [address] [place] [address] Result Comment: GENNY PHERAL BLOOD:CBC (06/01/2023 12:35 [...] 0-12 % Monocytes 0-414 % Erythroid precursors 13-3737 % Lymphocytes 7-230 % Plasma cells 0-2 [...] in number.Immunohistochemical stains were performed at the [facility] with appropriate controls for further characterization of [...] coat stored. Performed By: #### B MRT ####[facility] LABCLIA [id number] [facility] [id number] [place] [address] OF [facility] BONE MARROW CHROMOSOME ANALo n 06-01-2023 CHROMOSOME BM Normal [facility] Comment on above: Order Comment: Order ing Facility: [facility] Address: [address] [place] [address] Result Comment: Edel knight Accession Number: [id number]: Hortencia Hdezathologist: Beatrice Pathology No: [id number] diagnosis: AMLSpecimen Type: Bone MarrowReceived Date: 06/01/2023Number of cells counted: 20Number of cells analyzed: 20Number of cells karyotyped: 20Banding resolution: 400Banding method: G-bandingDIAGNOSIS: 44,XX,-5,add(7)(q32),-12,-16,+mar[4]/44,idem,nehemiah(1)add(1)(q22)inv(1) (p13q21),add(2)(q37),add(3)(q21),add(4)(q12),nehemiah(6)add(6)(p11.2)del( 6)(q23q25),-add(7)(q32),add(7)(q11.2),-9,nehemiah(11)t(1;11)(q21;q23),+ma r[16]INTERPRETATION: Abnormal, female karyotypeCOMMENT: Ten metaphase cells were [...] reviewed by Jovanny Hooper, PhD, FACMGPerformed by [facility]ology and Laboratory Medicine InstituteDivision of Molecular PathologyCytogenetics Lab, [id number] [facility]. [place], [place] [address]Phone: Toll free: Performed By: #### [facility] ####[facility] [id number] [place] [address] [place] CBC W Auto Differential pane l (Bld)on 06-01-2023 Anisocytosis Ql (Bld) Present Normal [facility] Comment on above: Order Comment: Speci men Type: BLOOD SPECIMENOrdering Facility: [facility] Address: [address] Performed By: #### 5 7021-8 ####[facility] LABCLIA [id number] [place] [address] [place] Basophils (Bld) [#/Vol] 0.00 10*3/uL Normal <0.11 [facility] Comment on above: Order Comment: Speci men Type: BLOOD SPECIMENOrdering Facility: [facility] Address: [address] [place] [address] Performed By: #### 5 7021-8 ####[facility] LABCLIA [id number] [address] [facility] Basophils/100 WBC (Bld) 0.0 % Normal [facility] Comment on above: Order Comment: Speci men Type: BLOOD SPECIMENOrdering Facility: [facility] Address: [address] [place], [place] [address] Performed By: #### 5 7021-8 ####[facility] LABCLIA [id number] [place] [address] [place] BLAST% 7.1 % High <=0.0 [facility] Comment on above: Order Comment: Speci men Type: BLOOD SPECIMENOrdering Facility: [facility] Address: [address] [place], [place] [address] Performed By: #### 5 7021-8 ####[facility] LABCLIA [id number] [place] [address] [place] Differential cell count method Nom (Bld) Manual Normal [facility] Comment on above: Order Comment: Speci men Type: BLOOD SPECIMENOrdering Facility: [facility] Address: [address] [place], [place] [address] Performed By: #### 5 7021-8 ####[facility] LABCLIA [id number] [place] [address] [place] Eosinophils (Bld) [#/Vol] 0.03 10*3/uL Normal <0.46 [facility] Comment on above: Order Comment: Speci men Type: BLOOD SPECIMENOrdering Facility: [facility] Address: [address] [place] [address] Performed By: #### 5 7021-8 ####[facility] LABCLIA [id number] [place] [address] [place] Eosinophils/100 WBC (Bld) 1.8 % Normal [facility] Comment on above: Order Comment: Speci men Type: BLOOD SPECIMENOrdering Facility: [facility] Address: [address] [place] [address] Performed By: #### 5 7021-8 ####[facility] LABIA [id number] [place] [address] [place] Erythrocyte distribution width (RBC) [Ratio] 18.3 % High 11.5-15.0 [facility] Comment on above: Order Comment: Speci men Type: BLOOD SPECIMENOrdering Facility: [facility] Address: [address] [place], [place] [address] Performed By: #### 5 7021-8 ####[facility] LABIA [id number] [place] [address] [place] Hematocrit (Bld) [Volume fraction] 19.2 % Low 36.0-46.0 [facility] Comment on above: Order Comment: Speci men Type: BLOOD SPECIMENOrdering Facility: [facility] Address: [address] [place], [place] [address] Performed By: #### 5 7021-8 ####[facility] LABCLIA [id number] [place] [address] [place] Hemoglobin (Bld) [Mass/Vol] 6.6 g/dL Low 11.5-15.5 [facility] Comment on above: Order Comment: Speci men Type: BLOOD SPECIMENOrdering Facility: [facility] Address: [address] Performed By: #### 5 7021-8 ####[facility] LABCLIA [id number] [place] [address] [place] HYPOGRANULATED PMNS Present Normal [facility] Comment on above: Order Comment: Speci men Type: BLOOD SPECIMENOrdering Facility: [facility] Address: [address] [place], [place] [address] Performed By: #### 5 7021-8 ####[facility] LABCLIA [id number] [place] [address] [place] Lymphocytes (Bld) [#/Vol] 1.33 10*3/uL Normal 1.00-4.00 [facility] Comment on above: Order Comment: Speci men Type: BLOOD SPECIMENOrdering Facility: [facility] Address: [address] [place], [place] [address] Performed By: #### 5 7021-8 ####[facility] LABIA [id number] [place] [address] [place] Lymphocytes/100 WBC (Bld) 76.8 % Normal [facility] Comment on above: Order Comment: Speci men Type: BLOOD SPECIMENOrdering Facility: [facility] Address: [address] [place], [place] [address] Performed By: #### 5 7021-8 ####[facility] LABIA [id number] [place] [address] [place] MCH (RBC) [Entitic mass] 34.7 pg High 26.0-34.0 [facility] Comment on above: Order Comment: Speci men Type: BLOOD SPECIMENOrdering Facility: [facility] Address: [address] [place], [place] [address] Performed By: #### 5 7021-8 ####[facility] LABIA [id number] [place] [address] [place] MCHC (RBC) [Mass/Vol] 34.4 g/dL Normal 30.5-36.0 [facility] Comment on above: Order Comment: Speci men Type: BLOOD SPECIMENOrdering Facility: [facility] Address: [address] [place], [place] [address] Performed By: #### 5 7021-8 ####[facility] LABCLIA [id number] [place] [address] [place] MCV (RBC) [Entitic vol] 101.1 fL High 80.0-100.0 [facility] Comment on above: Order Comment: Speci men Type: BLOOD SPECIMENOrdering Facility: [facility] Address: [address] [place], [place] [address] Performed By: #### 5 7021-8 ####[facility] LABCLIA [id number] [place] [address] [place] Monocytes (Bld) [#/Vol] 0.00 10*3/uL Normal <0.87 [facility] Comment on above: Order Comment: Speci men Type: BLOOD SPECIMENOrdering Facility: [facility] Address: [address] [place], [place] [address] Performed By: #### 5 7021-8 ####[facility] LABCLIA [id number] [address] [place] Monocytes/100 WBC (Bld) 0.0 % Normal [facility] Comment on above: Order Comment: Speci men Type: BLOOD SPECIMENOrdering Facility: [facility] Address: [address] [place], [place] [address] Performed By: #### 5 7021-8 ####[facility] LABCLIA [id number] [address] [place] MYELO% 0.9 % Normal [facility] Comment on above: Order Comment: Speci men Type: BLOOD SPECIMENOrdering Facility: [facility] Address: [address] [place] [address] Performed By: #### 5 7021-8 ####[facility] LABCLIA [id number] [place] [address] [place] Neutrophils (Bld) [#/Vol] 0.23 10*3/uL Low 1.45-7.50 [facility] Comment on above: Order Comment: Speci men Type: BLOOD SPECIMENOrdering Facility: [facility] Address: [address] Performed By: #### 5 7021-8 ####[facility] LABCLIA [id number] [place] [address] [place] Neutrophils/100 WBC (Bld) 13.4 % Normal [facility] Comment on above: Order Comment: Speci men Type: BLOOD SPECIMENOrdering Facility: [facility] Address: [address] Performed By: #### 5 7021-8 ####[facility] LABCLIA [id number] [place] [address] [place] Nucleated RBC (Bld) [#/Vol] 10*3/uL Normal <0.01 [facility] Comment on above: Order Comment: Speci men Type: BLOOD SPECIMENOrdering Facility: [facility] Address: [address] [place] [address] Performed By: #### 5 7021-8 ####[facility] LABCLIA [id number] [place] [address] [place] Nucleated RBC/100 WBC (Bld) [Ratio] 0.0 /100 WBC Normal [facility] Comment on above: Order Comment: Speci men Type: BLOOD SPECIMENOrdering Facility: [facility] Address: [address] Performed By: #### 5 7021-8 ####[facility] LABCLIA [id number] [place] [address] [place] Ovalocytes LM Ql (Bld) Few Normal [facility] Comment on above: Order Comment: Speci men Type: BLOOD SPECIMENOrdering Facility: [facility] Address: [address] [place] [address] Performed By: #### 5 7021-8 ####[facility] LABCLIA [id number] [place] [address] [place] Platelet mean volume (Bld) [Entitic vol] Normal [facility] Comment on above: Order Comment: Speci men Type: BLOOD SPECIMENOrdering Facility: [facility] Address: [address] [place] [address] Result Comment: Unab le to Report. Performed By: #### 5 7021-8 ####[facility] LABCLIA [id number] [place] [address] [place] Platelets (Bld) [#/Vol] 10 10*3/uL Low 150-400 [facility] Comment on above: Order Comment: Speci men Type: BLOOD SPECIMENOrdering Facility: [facility] Address: [address] [place], [place] [address] Result Comment: Resu lts checked and verified.No clot detected. Performed By: #### 5 7021-8 ####[facility] LABCLIA [id number] [place] [address] [place] Platelets Estimate (Bld) [#/Vol] Decreased Normal [facility] Comment on above: Order Comment: Speci men Type: BLOOD SPECIMENOrdering Facility: [facility] Address: [address] Performed By: #### 5 7021-8 ####[facility] LABCLIA [id number] [place] [address] [place] Polychromasia LM Ql (Bld) Slight Normal [facility] Comment on above: Order Comment: Speci men Type: BLOOD SPECIMENOrdering Facility: [facility] Address: [address] Performed By: #### 5 7021-8 ####[facility] LABCLIA [id number] [place] [address] [place] RBC (Bld) [#/Vol] 1.90 10*6/uL Low 3.90-5.20 [facility] Comment on above: Order Comment: Speci men Type: BLOOD SPECIMENOrdering Facility: [facility] Address: [address] [place], [place] [address] Performed By: #### 5 7021-8 ####[facility] LABCLIA [id number] [place] [address] [place] RBC FRAGMENTS Few Abnormal None Seen [facility] Comment on above: Order Comment: Speci men Type: BLOOD SPECIMENOrdering Facility: [facility] Address: [address] [place], [place] [address] Performed By: #### 5 7021-8 ####[facility] LABCLIA [id number] [place] [address] [place] RED CELL MORPH Reviewed: see result s of individual morphologies Normal [facility] Comment on above: Order Comment: Speci men Type: BLOOD SPECIMENOrdering Facility: [facility] Address: [address] [place], [place] [address] Performed By: #### 5 7021-8 ####[facility] LABCLIA [id number] [place] [address] [place] WBC (Bld) [#/Vol] 1.73 10*3/uL Low 3.70-11.00 [facility] Comment on above: Order Comment: Speci men Type: BLOOD SPECIMENOrdering Facility: [facility] Address: [address] [place], [place] [address] Performed By: #### 5 7021-8 ####[facility] LABCLIA [id number] [address] [id number] [address] [place] WBC Left Shift Ql (Bld) Present Normal [facility] Comment on above: Order Comment: Speci men Type: BLOOD SPECIMENOrdering Facility: [facility] Address: [address] [place] [address] Performed By: #### 5 7021-8 ####[facility] LABIA [id number] [address] [place] CONSULT PROGon 06-01-2023 CONSULT PROG Normal [facility] CT BIOPSY BONE MARROW (HEMO) on 06-01-2023 CT BIOPSY BONE MARROW (HEMO) Normal [facility] Comprehensive metabolic 2000 panelon 06-01-2023 Albumin [Mass/Vol] 3.4 g/dL Low 3.9-4.9 [facility] Comment on above: Order Comment: Speci men Type: BLOOD SPECIMENOrdering Facility: [facility] Address: [address] [place] [address] Performed By: #### 3 084-1, 21397-0, , 2776-09 ####[facility] LABIA [id number] [place] [address] [place] ALP [Catalytic activity/Vol] 53 U/L Normal 34-123 [facility] Comment on above: Order Comment: Speci men Type: BLOOD SPECIMENOrdering Facility: [facility] Address: [address] [place] [address] Performed By: #### 3 084-1, 51822-6, , 2776-09 ####[facility] LABIA [id number] [address] [place] ALT [Catalytic activity/Vol] 14 U/L Normal 7-38 [facility] Comment on above: Order Comment: Speci men Type: BLOOD SPECIMENOrdering Facility: [facility] Address: [address] [place] [address] Performed By: #### 3 084-1, 51028-9, , 2776-09 ####[facility] LABCLIA [id number] [place] [address] [place] Anion gap [Moles/Vol] 11 mmol/L Normal 9-18 [facility] Comment on above: Order Comment: Speci men Type: BLOOD SPECIMENOrdering Facility: [facility] Address: [address] [place] [address] Performed By: #### 3 084-1, 39834-3, , 2776-09 ####[facility] LABCLIA [id number] [place] [address] [place] AST [Catalytic activity/Vol] 12 U/L Low 13-35 [facility] Comment on above: Order Comment: Speci men Type: BLOOD SPECIMENOrdering Facility: [facility] Address: [address] [place] [address] Performed By: #### 3 084-1, 23629-3, , 2776-09 ####[facility] LABIA [id number] [place] [address] [place] Bilirubin [Mass/Vol] 0.2 mg/dL Normal 0.2-1.3 [facility] Comment on above: Order Comment: Speci men Type: BLOOD SPECIMENOrdering Facility: [facility] Address: [address] [place], [place] [address] Performed By: #### 3 084-1, 78460-5, , 2776-09 ####[facility] LABCLIA [id number] [place] [address] [place] Calcium [Mass/Vol] 8.7 mg/dL Normal 8.5-10.2 [facility] Comment on above: Order Comment: Speci men Type: BLOOD SPECIMENOrdering Facility: [facility] Address: [address] [place] [address] Performed By: #### 3 084-1, 16489-7, , 2776-09 ####[facility] LABCLIA [id number] [place] [address] [place] Chloride [Moles/Vol] 109 mmol/L High 97-105 [facility] Comment on above: Order Comment: Speci men Type: BLOOD SPECIMENOrdering Facility: [facility] Address: [address] [place] [address] Performed By: #### 3 084-1, 48463-3, , 2776-09 ####[facility] LABIA [id number] [place] [address] [place] CO2 [Moles/Vol] 21 mmol/L Low 22-30 [facility] Comment on above: Order Comment: Speci men Type: BLOOD SPECIMENOrdering Facility: [facility] Address: [address] [place] [address] Performed By: #### 3 084-1, 55081-4, , 2776-09 ####[facility] LABIA [id number] [place] [address] [place] Creatinine [Mass/Vol] 1.03 mg/dL High 0.58-0.96 [facility] Comment on above: Order Comment: Speci men Type: BLOOD SPECIMENOrdering Facility: [facility] Address: [address] [place] [address] Performed By: #### 3 084-1, 48916-6, , 2776-09 ####[facility] LABIA [id number] [place] [address] [place] Creatinine and Glomerular filtration rate.predicted panel (S/P/Bld) 59 mL/min/1.73m??? Low >=60 [facility] Comment on above: Order Comment: Speci men Type: BLOOD SPECIMENOrdering Facility: [facility] Address: [address] [place] [address] Result Comment: Berenice mated Glomerular Filtration Rate [...] actual GFR. Performed By: #### 3 084-1, 16522-0, , 2776-09 ####[facility] LABIA [id number] [address] [address] [place] Glucose [Mass/Vol] 106 mg/dL High 74-99 [facility] Comment on above: Order Comment: Elvia escobar Type: BLOOD SPECIMENOrdering Facility: [facility] Address: [address] [place] [address] Result Comment: The [place] [employer] Association (ADA) provides guidance for cutoff [...] Standards of Medical Care in Diabetes 2016, [place] [employer]. Diabetes Care. 2016.39(Suppl 1). Performed By: #### 3 084-1, 45825-3, , 2776-09 ####[facility] LABIA [id number] [address] [address] [place] Potassium [Moles/Vol] 3.7 mmol/L Normal 3.7-5.1 [facility] Comment on above: Order Comment: Elvia escobar Type: BLOOD SPECIMENOrdering Facility: [facility] Address: [address] [place] [address] Performed By: #### 3 084-1, 80356-4, 54260-1, 2776-09 ####[facility] LABIA [id number] [place] [address] [place] Protein [Mass/Vol] 5.4 g/dL Low 6.3-8.0 [facility] Comment on above: Order Comment: Speci men Type: BLOOD SPECIMENOrdering Facility: [facility] Address: [address] [place] [address] Performed By: #### 3 084-1, 78609-3, , 2776-09 ####[facility] LABIA [id number] [place] [address] [place] Sodium [Moles/Vol] 141 mmol/L Normal 136-144 [facility] Comment on above: Order Comment: Speci men Type: BLOOD SPECIMENOrdering Facility: [facility] Address: [address] [place] [address] Performed By: #### 3 084-1, 02338-5, , 2776-09 ####[facility] LABIA [id number] [place] [address] [place] Urea nitrogen [Mass/Vol] 16 mg/dL Normal 7-21 [facility] Comment on above: Order Comment: Speci men Type: BLOOD SPECIMENOrdering Facility: [facility] Address: [address] [place] [address] Performed By: #### 3 084-1, 33621-7, , 2776-09 ####[facility] LABIA [id number] [place] [address] [place] DNA EXTRACTION BONE MARROW ( BUFFY COAT)on 06-01-2023 DNA EXTRACTION BONE MARROW (BUFFY COAT) Normal [facility] Comment on above: Order Comment: Speci men Type: BONE MARROW SPECIMENOrdering Facility: [facility] Address: [address] [place] [address] Result Comment: This specimen was received and successfully processed for future DNA purification should molecular testing be needed. Specimens will be available for 3 years from date of collection.To order testing on this specimen for [facility] patients, please place an [facility] order for DNA and RNA Clinical Testing (SQNUCADD). To order testing for patients outside of the [facility] system, please request DNA and RNA for Clinical Testing, order code [id number].If additional paperwork is required for testing, please send completed forms via secure email to [email or web address]. Performed By: #### N UCBUF ####[facility] LIMSCLIA [id number] [address] FLOW CYTOMETRY FOR LEUKEMIA/ LYMPHOMA (FCLL) PERFORMABLEon 06-01-2023 FLOW CYTOMETRY ORDER STATUS See Results in chart under F case ID Normal [facility] Comment on above: Order Comment: Speci men Type: BONE MARROW SPECIMENOrdering Facility: [facility] Address: [address] [place] [address] Result Comment: Vero ected result: Previously reported as A bone marrow sample was received for potential flow cytometry studies. Following morphologic review, flow cytometric studies will be ordered by the hematopathologist if testing is indicated. on 06/01/2023 at9:31 AM EDT. Performed By: #### F CLLP, FCLLRFLX ####[facility] LABCLIA [id number] [address] [place] [facility] FLOW CYTOMETRY FOR LEUKEMIA/ LYMPHOMA (FCLL) REFLEXon 06-01-2023 DIAGNOSIS COMMENT Normal [facility] Comment on above: Order Comment: Speci men Type: BONE MARROW SPECIMENOrdering Facility: [facility] Address: [address] Performed By: #### F CLLP, FCLLRFLX ####[facility] LABCLIA [id number] [address] [place] FINAL PERFORMING LAB Normal [facility] Comment on above: Order Comment: Speci men Type: BONE MARROW SPECIMENOrdering Facility: [facility] Address: [address] [place] [address] Result Comment: Diag nostic interpretation performed at [facility], [address] [place] [address] CLIA# [id number] Director: Boris Wood M.D. Performed By: #### F CLLP, FCLLRFLX ####[facility] LABCLIA [id number] [address] [place] Order Comment: Speci men Type: BONE MARROW SPECIMENOrdering Facility: [facility] Address: [address] [place] [address] Performed By: #### B MRT ####[facility] LABCLIA [id number] [address] [place] FLOW CYTOMETRY RESULTS Normal [facility] Comment on above: Order Comment: Speci men Type: BONE MARROW SPECIMENOrdering Facility: [facility] Address: [address] [place] [place] [address] Result Comment: Spec imen type: Bone marrow aspirateViability: 99%Morphology comments: See associated bone marrow biopsy report.Results:Marker Normal Cell Result (Lymph) Type CD2 T-cell Normal patternCD3 T-cell Normal patternCD4 T-cell subset Normal patternCD5 T-cell Normal patternCD7 T-cell Normal patternCD8 T-cell subset Normal qsdgqgdXP33 B-cell Normal xtqedpkEB36 Myeloid Normal ssvfzaxJJ17/56 NK-cell Normal idrnayxBI10 B-cell Normal fnqgjujEQ92 B-cell Normal kcnnvujYL15 B-cell Normal ivmowxdDE91 Hough-leukocyte Normal xcusnriJP053 B-cell Normal iumokkzDS423 B-cell Normal patternKappa/Lambda B-cell subset PolytypicTRBC1 T-cell Normal, polytypicFlow cytometric analysis of the bone marrow aspirate reveals that 13% of total events have the CD45 and light scatter properties of lymphocytes. The lymphocytes are composed of T-cells (91%, CD4:CD8 ratio = 3.2), NK cells (1%), and polytypic B-cells (8%). Performed By: #### F CLLP, FCLLRFLX ####[facility] LABCLIA [id number] [place] [address] [place] GROSS DESCRIPTION A. Bone Marrow Normal [facility] Comment on above: Order Comment: Speci men Type: BONE MARROW SPECIMENOrdering Facility: [facility] Address: [address] [place] [address] Result Comment: Rece ived 3 ml BM in heparin. Performed By: #### F CLLP, FCLLRFLX ####[facility] LABCLIA [id number] [place] [address] [place] INTERPRETATION Normal [facility] Comment on above: Order Comment: Speci men Type: BONE MARROW SPECIMENOrdering Facility: [facility] Address: [address] [place] [address] Result Comment: The lymphoproliferative disorder panel is performed on this bone marrow by flow cytometry. There is no immunophenotypic evidence of involvement by a lymphoproliferative disorder. Correlation with the clinical and bone marrow histopathologic findings is suggested. Performed By: #### F CLLP, FCLLRFLX ####[facility] LABCLIA [id number] [place] [address] [place] FLT3 ITD HN BONE MARROWon CLARITY SIGNOUT PATHOLOGIST [id number] Normal [facility] Comment on above: Order Comment: Speci men Type: BONE MARROW SPECIMENOrdering Facility: [facility] Address: [address] [place] [address] Performed By: #### F 3IM, HDMNGS ####[facility] LIMSCLIA [id number] [place] [address] [place] FLT3 ITD HN PANEL BONE MARROW Normal [facility] Comment on above: Order Comment: Speci men Type: BONE MARROW SPECIMENOrdering Facility: [facility] Address: [address] [id number] Result Comment: FLT3 Internal Tandem Duplication (ITD) Mutation TestingLaboratory Accession Number: [id number] Internal Tandem Duplication (ITD) mutation: Not DetectedComment:FLT3/ITD [...] from the specimen provided. Regions of the HSE7dynvvifw kinase receptor gene are subjected to the polymerase chainreaction (PCR) using fluorescently labeled forward PCR primers. PCRproducts are analyzed by capillary gel electrophoresis for in-framelength mutations (ITD mutations). This assay can detect [...] molecular findings to assessprognosis within myeloid neoplasms.References:1) Rubenelli MP, Joeti P, Tiacci E, et al. Mutational landscapeof AML with normal cytogenetics: biological and clinical implications.Blood Rev.2013;27:13-22.2) Juan KELLER, Ros Alvarez, Aly GIFFORD, et al. Prognostic relevance ofintegrated genetic profiling in acute myeloid leukemia. N Engl J Med.2012 Nov 22;366 (12):1079-89.3) Sandra H, Dee Dowling, Sharon Vaughan, et al. Diagnosis and mangement ofAML in adults: 2017 ELN recommendations from an international expertpanel. Blood 129,[phone] (2017).Disclaimer:This test was developed and its performance characteristics determinedby [facility] Pathology [facility] LaboratoryMedicine [facility] ([facility]). It has not been cleared or approved bythe FDA. -[facility] is regulated under CLIA as certified to perform high-complexity testing. This test is used for clinical purposes. It shouldnot be regarded as investigational or for research.Testing and interpretation performed at [facility], [address] [place] [address]. CLIA Number: [id number] reviewed by Leslye Ha MD, PhD Performed By: #### F 3IM, HDMNGS ####[facility] LIMSCLIA [id number] [address] [place] HISTORY PHYSICALon HISTORY PHYSICAL Normal [facility] Magnesium SerPl-ncon 06-01 Magnesium [Mass/Vol] 2.1 mg/dL Normal 1.7-2.3 [facility] Comment on above: Order Comment: Speci men Type: BLOOD SPECIMENOrdering Facility: [facility] Address: [address] [place] [address] Performed By: #### 3 084-1, 32867-7, , 2776-09 ####[facility] LABCLIA [id number] [address] [place] PT EDon 06-01-2023 PT ED Normal [facility] Phosphate SerPl-mCncon 06-01 Phosphate [Mass/Vol] 4.4 mg/dL Normal 2.7-4.8 [facility] Comment on above: Order Comment: Speci men Type: BLOOD SPECIMENOrdering Facility: [facility] Address: [address] [place] [address] Performed By: #### 3 084-1, 11867-0, , 2776-09 ####[facility] LABCLIA [id number] [place] [id number] [place] Urate SerPl-mCncon 3 Urate [Mass/Vol] 3.2 mg/dL Normal 2.5-6.6 [facility] Comment on above: Order Comment: Speci men Type: BLOOD SPECIMENOrdering Facility: [facility] Address: [address] [place] [address] Performed By: #### 3 084-1, 67896-7, 76726-8, 27703-03 ####[facility] LABIA [id number] [place] [address] [place] ALLIED HEALTHon 05-31-2023 ALLIED HEALTH Normal [facility] CBC W Auto Differential pane l (Bld)on 05-31-2023 Anisocytosis Ql (Bld) Present Normal [facility] Comment on above: Order Comment: Speci men Type: BLOOD SPECIMENOrdering Facility: [facility] Address: [address] [place], [place] [address] Performed By: #### 5 7021-8 ####[facility] LABIA [id number] [address] [place] Basophils (Bld) [#/Vol] 0.00 10*3/uL Normal <0.11 [facility] Comment on above: Order Comment: Speci men Type: BLOOD SPECIMENOrdering Facility: [facility] Address: [address] Performed By: #### 5 7021-8 ####[facility] LABIA [id number] [place] [address] [place] Basophils/100 WBC (Bld) 0.0 % Normal [facility] Comment on above: Order Comment: Speci men Type: BLOOD SPECIMENOrdering Facility: [facility] Address: [address] [place], [place] [address] Performed By: #### 5 7021-8 ####[facility] LABCLIA [id number] [place] [address] [place] BLAST% 1.8 % High <=0.0 [facility] Comment on above: Order Comment: Speci men Type: BLOOD SPECIMENOrdering Facility: [facility] Address: [address] [place] [address] Performed By: #### 5 7021-8 ####[facility] LABCLIA [id number] [address] [place] Differential cell count method Nom (Bld) Manual Normal [facility] Comment on above: Order Comment: Speci men Type: BLOOD SPECIMENOrdering Facility: [facility] Address: [address] [place] [address] Performed By: #### 5 7021-8 ####[facility] LABCLIA [id number] [address] [place] Eosinophils (Bld) [#/Vol] 0.06 10*3/uL Normal <0.46 [facility] Comment on above: Order Comment: Speci men Type: BLOOD SPECIMENOrdering Facility: [facility] Address: [address] [place] [address] Performed By: #### 5 7021-8 ####[facility] LABCLIA [id number] [address] [place] Eosinophils/100 WBC (Bld) 3.5 % Normal [facility] Comment on above: Order Comment: Speci men Type: BLOOD SPECIMENOrdering Facility: [facility] Address: [address] [place], [place] [address] Performed By: #### 5 7021-8 ####[facility] LABCLIA [id number] [place] [address] [place] Erythrocyte distribution width (RBC) [Ratio] 17.7 % High 11.5-15.0 [facility] Comment on above: Order Comment: Speci men Type: BLOOD SPECIMENOrdering Facility: [facility] Address: [address] [address] Performed By: #### 5 7021-8 ####[facility] LABIA [id number] [place] [address] [place] Hematocrit (Bld) [Volume fraction] 21.1 % Low 36.0-46.0 [facility] Comment on above: Order Comment: Speci men Type: BLOOD SPECIMENOrdering Facility: [facility] Address: [address] Performed By: #### 5 7021-8 ####[facility] LABIA [id number] [place] [address] [place] Hemoglobin (Bld) [Mass/Vol] 7.2 g/dL Low 11.5-15.5 [facility] Comment on above: Order Comment: Speci men Type: BLOOD SPECIMENOrdering Facility: [facility] Address: [address] [place], [place] [address] Performed By: #### 5 7021-8 ####[facility] LABIA [id number] [place] [address] [place] HYPOGRANULATED PMNS Present Normal [facility] Comment on above: Order Comment: Speci men Type: BLOOD SPECIMENOrdering Facility: [facility] Address: [address] Performed By: #### 5 7021-8 ####[facility] LABIA [id number] [place] [address] [place] Lymphocytes (Bld) [#/Vol] 1.43 10*3/uL Normal 1.00-4.00 [facility] Comment on above: Order Comment: Speci men Type: BLOOD SPECIMENOrdering Facility: [facility] Address: [address] Performed By: #### 5 7021-8 ####[facility] LABIA [id number] [place] [address] [place] Lymphocytes/100 WBC (Bld) 85.9 % Normal [facility] Comment on above: Order Comment: Speci men Type: BLOOD SPECIMENOrdering Facility: [facility] Address: [address] [place] [address] Performed By: #### 5 7021-8 ####[facility] LABIA [id number] [place] [address] [place] MCH (RBC) [Entitic mass] 34.0 pg Normal 26.0-34.0 [facility] Comment on above: Order Comment: Speci men Type: BLOOD SPECIMENOrdering Facility: [facility] Address: [address] [place] [address] Performed By: #### 5 7021-8 ####[facility] LABR[facility] [id number] [address] [place] MCHC (RBC) [Mass/Vol] 34.1 g/dL Normal 30.5-36.0 [facility] Comment on above: Order Comment: Speci men Type: BLOOD SPECIMENOrdering Facility: [facility] Address: [address] [place], [place] [address] Performed By: #### 5 7021-8 ####[facility] LABIA [id number] [place] [address] [place] MCV (RBC) [Entitic vol] 99.5 fL Normal 80.0-100.0 [facility] Comment on above: Order Comment: Speci men Type: BLOOD SPECIMENOrdering Facility: [facility] Address: [address] [place], [place] [address] Performed By: #### 5 7021-8 ####[facility] LABIA [id number] [place] [address] [place] Monocytes (Bld) [#/Vol] 0.00 10*3/uL Normal <0.87 [facility] Comment on above: Order Comment: Speci men Type: BLOOD SPECIMENOrdering Facility: [facility] Address: [address] Performed By: #### 5 7021-8 ####[facility] LABCLIA [id number] [place] [address] [place] Monocytes/100 WBC (Bld) 0.0 % Normal [facility] Comment on above: Order Comment: Speci men Type: BLOOD SPECIMENOrdering Facility: [facility] Address: [address] Performed By: #### 5 7021-8 ####[facility] LABCLIA [id number] [place] [address] [place] Neutrophils (Bld) [#/Vol] 0.15 10*3/uL Low 1.45-7.50 [facility] Comment on above: Order Comment: Speci men Type: BLOOD SPECIMENOrdering Facility: [facility] Address: [address] Performed By: #### 5 7021-8 ####[facility] LABCLIA [id number] [place] [address] [place] Neutrophils/100 WBC (Bld) 8.8 % Normal [facility] Comment on above: Order Comment: Speci men Type: BLOOD SPECIMENOrdering Facility: [facility] Address: [address] [place] [address] Performed By: #### 5 7021-8 ####[facility] LABCLIA [id number] [place] [address] [place] Nucleated RBC (Bld) [#/Vol] 0.01 10*3/uL High <0.01 [facility] Comment on above: Order Comment: Speci men Type: BLOOD SPECIMENOrdering Facility: [facility] Address: [address] [place] [address] Performed By: #### 5 7021-8 ####[facility] LABCLIA [id number] [address] [place] Nucleated RBC/100 WBC (Bld) [Ratio] 0.9 /100 WBC Normal [facility] Comment on above: Order Comment: Speci men Type: BLOOD SPECIMENOrdering Facility: [facility] Address: [address] [place] [address] Performed By: #### 5 7021-8 ####[facility] LABCLIA [id number] [place] [address] [place] Ovalocytes LM Ql (Bld) Few Normal [facility] Comment on above: Order Comment: Speci men Type: BLOOD SPECIMENOrdering Facility: [facility] Address: [address] [place] [address] Performed By: #### 5 7021-8 ####[facility] LABIA [id number] [place] [address] [place] Platelet mean volume (Bld) [Entitic vol] Normal [facility] Comment on above: Order Comment: Speci men Type: BLOOD SPECIMENOrdering Facility: [facility] Address: [address] [place] [address] Result Comment: Unab le to Report. Performed By: #### 5 7021-8 ####[facility] LABIA [id number] [address] [place] Platelets (Bld) [#/Vol] 13 10*3/uL Low 150-400 [facility] Comment on above: Order Comment: Speci men Type: BLOOD SPECIMENOrdering Facility: [facility] Address: [address] [place] [address] Result Comment: No c lot detected.Results checked and verified. Performed By: #### 5 7021-8 ####[facility] LABIA [id number] [place] [address] [place] Platelets Estimate (Bld) [#/Vol] Decreased Normal [facility] Comment on above: Order Comment: Speci men Type: BLOOD SPECIMENOrdering Facility: [facility] Address: [address] Performed By: #### 5 7021-8 ####[facility] LABCLIA [id number] [place] [address] [place] Polychromasia LM Ql (Bld) Slight Normal [facility] Comment on above: Order Comment: Speci men Type: BLOOD SPECIMENOrdering Facility: [facility] Address: [address] Performed By: #### 5 7021-8 ####[facility] LABCLIA [id number] [place] [address] [place] RBC (Bld) [#/Vol] 2.12 10*6/uL Low 3.90-5.20 [facility] Comment on above: Order Comment: Speci men Type: BLOOD SPECIMENOrdering Facility: [facility] Address: [address] [place], [place] [address] Performed By: #### 5 7021-8 ####[facility] LABCLIA [id number] [place] [address] [place] RBC FRAGMENTS Few Abnormal None Seen [facility] Comment on above: Order Comment: Speci men Type: BLOOD SPECIMENOrdering Facility: [facility] Address: [address] [place] [address] Performed By: #### 5 7021-8 ####[facility] LABCLIA [id number] [place] [address] [place] RED CELL MORPH Reviewed: see result s of individual morphologies Normal [facility] Comment on above: Order Comment: Speci men Type: BLOOD SPECIMENOrdering Facility: [facility] Address: [address] Performed By: #### 5 7021-8 ####[facility] LABCLIA [id number] [place] [address] [place] WBC (Bld) [#/Vol] 1.66 10*3/uL Low 3.70-11.00 [facility] Comment on above: Order Comment: Speci men Type: BLOOD SPECIMENOrdering Facility: [facility] Address: [address] [place] [address] Result Comment: No c lot detected. Performed By: #### 5 7021-8 ####[facility] LABIA [id number] [place] [address] [place] CNPNon 05-31-2023 CNPN Normal [facility] CONSULT PROGon 05-31-2023 CONSULT PROG Normal [facility] Comprehensive metabolic 2000 panelon 05-31-2023 Albumin [Mass/Vol] 3.5 g/dL Low 3.9-4.9 [facility] Comment on above: Order Comment: Speci men Type: BLOOD SPECIMENOrdering Facility: [facility] Address: [address] [place] [address] Performed By: #### 2 4323-8, 51146-7, 277-1, 3084-1 ####[facility] LABIA [id number] [place] [address] [place] ALP [Catalytic activity/Vol] 53 U/L Normal 34-123 [facility] Comment on above: Order Comment: Speci men Type: BLOOD SPECIMENOrdering Facility: [facility] Address: [address] [place] [address] Performed By: #### 2 4323-8, 15936-7, 277-1, 3084-1 ####[facility] LABCLIA [id number] [place] [address] [place] ALT [Catalytic activity/Vol] 17 U/L Normal 7-38 [facility] Comment on above: Order Comment: Speci men Type: BLOOD SPECIMENOrdering Facility: [facility] Address: [address] [place], [place] [address] Performed By: #### 2 4323-8, 47092-6, 2776-, 3084-1 ####[facility] LABCLIA [id number] [place] [address] [place] Anion gap [Moles/Vol] 10 mmol/L Normal 9-18 [facility] Comment on above: Order Comment: Speci men Type: BLOOD SPECIMENOrdering Facility: [facility] Address: [address] [place] [address] Performed By: #### 2 4323-8, 82135-1, 2776-, 3084-1 ####[facility] LABCLIA [id number] [place] [address] [place] AST [Catalytic activity/Vol] 16 U/L Normal 13-35 [facility] Comment on above: Order Comment: Speci men Type: BLOOD SPECIMENOrdering Facility: [facility] Address: [address] [place] [address] Performed By: #### 2 4323-8, 03910-7, 2776-, 3084-1 ####[facility] LABCLIA [id number] [place] [address] [place] Bilirubin [Mass/Vol] 0.3 mg/dL Normal 0.2-1.3 [facility] Comment on above: Order Comment: Speci men Type: BLOOD SPECIMENOrdering Facility: [facility] Address: [address] [place], [place] [address] Performed By: #### 2 4323-8, 86864-1, 2776-, 3084-1 ####[facility] LABCLIA [id number] [place] [address] [place] Calcium [Mass/Vol] 9.2 mg/dL Normal 8.5-10.2 [facility] Comment on above: Order Comment: Speci men Type: BLOOD SPECIMENOrdering Facility: [facility] Address: [address] [place], [place] [address] Performed By: #### 2 4323-8, 35571-0, 2776-, 3084-1 ####[facility] LABCLIA [id number] [place] [address] [place] Chloride [Moles/Vol] 108 mmol/L High 97-105 [facility] Comment on above: Order Comment: Speci men Type: BLOOD SPECIMENOrdering Facility: [facility] Address: [address] [place] [address] Performed By: #### 2 4323-8, 46265-2, 2776-, 308-1 ####[facility] LABCLIA [id number] [place] [address] [place] CO2 [Moles/Vol] 23 mmol/L Normal 22-30 [facility] Comment on above: Order Comment: Speci men Type: BLOOD SPECIMENOrdering Facility: [facility] Address: [address] [place] [address] Performed By: #### 2 4323-8, 15991-4, 2776-09, 3084-1 ####[facility] LABCLIA [id number] [place] [address] [place] Creatinine [Mass/Vol] 0.96 mg/dL Normal 0.58-0.96 [facility] Comment on above: Order Comment: Speci men Type: BLOOD SPECIMENOrdering Facility: [facility] Address: [address] [place], [place] [address] Performed By: #### 2 4323-8, 34540-7, 2776-, 308-1 ####[facility] LABCLIA [id number] [place] [address] [place] Creatinine and Glomerular filtration rate.predicted panel (S/P/Bld) 64 mL/min/1.73m??? Normal >=60 [facility] Comment on above: Order Comment: Elvia escobar Type: BLOOD SPECIMENOrdering Facility: [facility] Address: [address] [place], [place] [address] Result Comment: Berenice mated Glomerular Filtration Rate [...] actual GFR. Performed By: #### 2 4323-8, 05102-4, 2776-, 3083-1 ####[facility] LABIA [id number] [place] [address] [place] Glucose [Mass/Vol] 106 mg/dL High 74-99 [facility] Comment on above: Order Comment: Elvia escobar Type: BLOOD SPECIMENOrdering Facility: [facility] Address: [address] [place] [address] Result Comment: The [place] [employer] (ADA) provides guidance for cutoff [...] Standards of Medical Care in Diabetes 2016, [place] [employer]. Diabetes Care. 2016.39(Suppl 1). Performed By: #### 2 4323-8, 48191-6, 2776-, 3083-1 ####[facility] LABCLIA [id number] [place] [address] [place] Potassium [Moles/Vol] 4.0 mmol/L Normal 3.7-5.1 [facility] Comment on above: Order Comment: Speci men Type: BLOOD SPECIMENOrdering Facility: [facility] Address: [address] Performed By: #### 2 4323-8, , 2776-09, 3083- ####[facility] LABCLIA [id number] [place] [address] [place] Protein [Mass/Vol] 5.7 g/dL Low 6.3-8.0 [facility] Comment on above: Order Comment: Speci men Type: BLOOD SPECIMENOrdering Facility: [facility] Address: [address] [place] [address] Performed By: #### 2 4323-8, , 2776-09, 3083- ####[facility] [id number] [place] [address] [place] Sodium [Moles/Vol] 141 mmol/L Normal 136-144 [facility] Comment on above: Order Comment: Speci men Type: BLOOD SPECIMENOrdering Facility: [facility] Address: [address] [place] [address] Performed By: #### 2 4323-8, , 2776-09, 3083- ####[facility] LABIA [id number] [place] [address] [place] Urea nitrogen [Mass/Vol] 13 mg/dL Normal 7-21 [facility] Comment on above: Order Comment: Speci men Type: BLOOD SPECIMENOrdering Facility: [facility] Address: [address] Performed By: #### 2 4323-8, 99300-3, 2776-09, 3083-1 ####[facility] LABIA [id number] [place] [id number] [place] Magnesium SerPl-mCncon 05-31 Magnesium [Mass/Vol] 2.1 mg/dL Normal 1.7-2.3 [facility] Comment on above: Order Comment: Elvia escobar Type: BLOOD SPECIMENOrdering Facility: [facility] Address: [address] [place] [address] Performed By: #### 2 4323-8, 09768-4, 2777-1, 3084-1 ####[facility] LABCLIA [id number] [place] [address] [place] PT EDon 05-31-2023 PT ED Normal [facility] PT panel Coag (PPP)on 2022 INR Coag (PPP) [Relative time] 1.1 {INR} Normal 0.9-1.3 [facility] Comment on above: Order Comment: Elvia escobar Type: BLOOD SPECIMENOrdering Facility: [facility] Address: [address] [place] [address] Result Comment: Rajwinder min K Antagonist (VKA) Therapeutic Range: INR 2 to 3 (Target INR of 2.5)Note: For patients treated with VKA drugs, such as warfarin, the [place] [employer] 2012 Guideline recommends [...] 2.5 to 3.5 (target INR of 3).Beltran GH, et al. Chest 2012, 141:7S-47SNishimura RA, et al. JACC 2017, 70: 252-289 Performed By: #### 3 4528-0 ####[facility] LABCLIA [id number] [place] [address] [place] PT Coag (PPP) [Time] 11.3 s Normal 9.7-13.0 [facility] Comment on above: Order Comment: Speci men Type: BLOOD SPECIMENOrdering Facility: [facility] Address: [address] [place] [address] Performed By: #### 3 4528-0 ####[facility] LABCLIA [id number] [place] [address] [place] Phosphate SerPl-mCncon 05-31 Phosphate [Mass/Vol] 4.0 mg/dL Normal 2.7-4.8 [facility] Comment on above: Order Comment: Speci men Type: BLOOD SPECIMENOrdering Facility: [facility] Address: [address] [place] [address] Performed By: #### 2 4323-8, 35732-8, 2777-1, 3084-1 ####[facility] LABCLIA [id number] [place] [address] [place] SOCIAL WORKon 05-31-2023 SOCIAL WORK Normal [facility] TYPE + SCREENon 05-31-2023 ABO O Normal [facility] Comment on above: Order Comment: Speci men Type: BLOOD SPECIMENOrdering Facility: [facility] Address: [address] [place] [address] Performed By: #### T SCR ####[facility] BLOOD BANKCLIA [id number] [place] [address] [place] HISTORICAL AB SCR STATUS Negative Normal [facility] Comment on above: Order Comment: Speci men Type: BLOOD SPECIMENOrdering Facility: [facility] Address: [address] Performed By: #### T SCR ####[facility] BLOOD BANKIA [id number] [place] [address] [place] Rh Nom (Bld) Positive Normal [facility] Comment on above: Order Comment: Speci men Type: BLOOD SPECIMENOrdering Facility: [facility] Address: [address] Performed By: #### T SCR ####[facility] BLOOD BANKCLIA [id number] [place] [address] [place] TYPE AND SCREEN EXPIRATION 06/03/2023 23:59 Normal [facility] Comment on above: Order Comment: Speci men Type: BLOOD SPECIMENOrdering Facility: [facility] Address: [address] [place] [address] Performed By: #### T SCR ####[facility] BLOOD BANKIA [id number] [address] [place] Urate SerPl-mCncon Urate [Mass/Vol] 2.4 mg/dL Low 2.5-6.6 [facility] Comment on above: Order Comment: Speci men Type: BLOOD SPECIMENOrdering Facility: [facility] Address: [address] [place] [address] Performed By: #### 2 4323-8, 22924-2, 2777-1, 3084-1 ####[facility] LABCLIA [id number] [address] Vancomycin Winton SerPl-mCncon 05-31-2023 Vancomycin random [Mass/Vol] 19.2 ug/mL Normal 10.0-20.0 [facility] Comment on above: Order Comment: Speci men Type: BLOOD SPECIMENOrdering Facility: [facility] Address: [address] [place] [address] Result Comment: Refe rence ranges and high/low indicator flags are provided as general guidelines only. The treating physician must determine appropriate target levels/dosing based on the specific clinical situation. Performed By: #### 4 091-5 ####[facility] LABCLIA [id number] [address] [place] XR CHEST 1V PORT POST PICC - NBon 05-31-2023 XR CHEST 1V PORT POST PICC -NB Normal [facility] CBC W Auto Differential pane l (Bld)on 05-30-2023 Anisocytosis Ql (Bld) Present Normal [facility] Comment on above: Order Comment: Speci men Type: BLOOD SPECIMENOrdering Facility: [facility] Address: [address] [place] [address] Performed By: #### 5 7021-8 ####[facility] LABCLIA [id number] [place] [address] [place] Basophils (Bld) [#/Vol] 0.00 10*3/uL Normal <0.11 [facility] Comment on above: Order Comment: Speci men Type: BLOOD SPECIMENOrdering Facility: [facility] Address: [address] [place] [address] Performed By: #### 5 7021-8 ####[facility] LABCLIA [id number] [address] [place] Basophils/100 WBC (Bld) 0.0 % Normal [facility] Comment on above: Order Comment: Speci men Type: BLOOD SPECIMENOrdering Facility: [facility] Address: [address] [place], [place] [address] Performed By: #### 5 7021-8 ####[facility] LABCLIA [id number] [address] [place] BLAST% 2.3 % High <=0.0 [facility] Comment on above: Order Comment: Speci men Type: BLOOD SPECIMENOrdering Facility: [facility] Address: [address] [place], [place] [address] Performed By: #### 5 7021-8 ####[facility] LABCLIA [id number] [place] [address] [place] Differential cell count method Nom (Bld) Manual Normal [facility] Comment on above: Order Comment: Speci men Type: BLOOD SPECIMENOrdering Facility: [facility] Address: [address] [place], [place] [address] Performed By: #### 5 7021-8 ####[facility] LABCLIA [id number] [place] [address] [place] Eosinophils (Bld) [#/Vol] 0.01 10*3/uL Normal <0.46 [facility] Comment on above: Order Comment: Speci men Type: BLOOD SPECIMENOrdering Facility: [facility] Address: [address] [place] [address] Performed By: #### 5 7021-8 ####[facility] LABCLIA [id number] [place] [address] [place] Eosinophils/100 WBC (Bld) 0.6 % Normal [facility] Comment on above: Order Comment: Speci men Type: BLOOD SPECIMENOrdering Facility: [facility] Address: [address] [place] [address] Performed By: #### 5 7021-8 ####[facility] LABCLIA [id number] [place] [address] [place] Erythrocyte distribution width (RBC) [Ratio] 17.8 % High 11.5-15.0 [facility] Comment on above: Order Comment: Speci men Type: BLOOD SPECIMENOrdering Facility: [facility] Address: [address] [place] [address] Performed By: #### 5 7021-8 ####[facility] LABIA [id number] [place] [address] [place] Hematocrit (Bld) [Volume fraction] 20.9 % Low 36.0-46.0 [facility] Comment on above: Order Comment: Speci men Type: BLOOD SPECIMENOrdering Facility: [facility] Address: [address] [place] [address] Performed By: #### 5 7021-8 ####[facility] LABCLIA [id number] [place] [address] [place] Hemoglobin (Bld) [Mass/Vol] 7.1 g/dL Low 11.5-15.5 [facility] Comment on above: Order Comment: Speci men Type: BLOOD SPECIMENOrdering Facility: [facility] Address: [address] [place] [address] Performed By: #### 5 7021-8 ####[facility] LABCLIA [id number] [place] [address] [place] Lymphocytes (Bld) [#/Vol] 1.29 10*3/uL Normal 1.00-4.00 [facility] Comment on above: Order Comment: Speci men Type: BLOOD SPECIMENOrdering Facility: [facility] Address: [address] [place] [address] Performed By: #### 5 7021-8 ####[facility] LABCLIA [id number] [place] [address] [place] Lymphocytes/100 WBC (Bld) 77.2 % Normal [facility] Comment on above: Order Comment: Speci men Type: BLOOD SPECIMENOrdering Facility: [facility] Address: [address] [place] [address] Performed By: #### 5 7021-8 ####[facility] LABCLIA [id number] [place] [address] [place] MCH (RBC) [Entitic mass] 33.5 pg Normal 26.0-34.0 [facility] Comment on above: Order Comment: Speci men Type: BLOOD SPECIMENOrdering Facility: [facility] Address: [address] [place], [place] [address] Performed By: #### 5 7021-8 ####[facility] LABCLIA [id number] [place] [address] [place] MCHC (RBC) [Mass/Vol] 34.0 g/dL Normal 30.5-36.0 [facility] Comment on above: Order Comment: Speci men Type: BLOOD SPECIMENOrdering Facility: [facility] Address: [address] Performed By: #### 5 7021-8 ####[facility] LABIA [id number] [place] [address] [place] MCV (RBC) [Entitic vol] 98.6 fL Normal 80.0-100.0 [facility] Comment on above: Order Comment: Speci men Type: BLOOD SPECIMENOrdering Facility: [facility] Address: [address] Performed By: #### 5 7021-8 ####[facility] LABIA [id number] [address] [place] Metamyelocytes/10 0 WBC (Bld) 4.0 % Normal [facility] Comment on above: Order Comment: Speci men Type: BLOOD SPECIMENOrdering Facility: [facility] Address: [address] [place], [place] [address] Performed By: #### 5 7021-8 ####[facility] LABIA [id number] [place] [address] [place] Monocytes (Bld) [#/Vol] 0.02 10*3/uL Normal <0.87 [facility] Comment on above: Order Comment: Speci men Type: BLOOD SPECIMENOrdering Facility: [facility] Address: [address] [place], [place] [address] Performed By: #### 5 7021-8 ####[facility] LABIA [id number] [address] [place] Monocytes/100 WBC (Bld) 1.1 % Normal [facility] Comment on above: Order Comment: Speci men Type: BLOOD SPECIMENOrdering Facility: [facility] Address: [address] Performed By: #### 5 7021-8 ####[facility] LABIA [id number] [address] [id number] [address] [place] Neutrophils (Bld) [#/Vol] 0.25 10*3/uL Low 1.45-7.50 [facility] Comment on above: Order Comment: Speci men Type: BLOOD SPECIMENOrdering Facility: [facility] Address: [address] [place], [place] [address] Performed By: #### 5 7021-8 ####[facility] LABCLIA [id number] [place] [address] [place] Neutrophils/100 WBC (Bld) 14.8 % Normal [facility] Comment on above: Order Comment: Speci men Type: BLOOD SPECIMENOrdering Facility: [facility] Address: [address] [place], [place] [address] Performed By: #### 5 7021-8 ####[facility] LABIA [id number] [place] [address] [place] Nucleated RBC (Bld) [#/Vol] 0.03 10*3/uL High <0.01 [facility] Comment on above: Order Comment: Speci men Type: BLOOD SPECIMENOrdering Facility: [facility] Address: [address] [place] [address] Performed By: #### 5 7021-8 ####[facility] LABIA [id number] [place] [address] [place] Nucleated RBC/100 WBC (Bld) [Ratio] 1.7 /100 WBC Normal [facility] Comment on above: Order Comment: Speci men Type: BLOOD SPECIMENOrdering Facility: [facility] Address: [address] [place] [address] Performed By: #### 5 7021-8 ####[facility] LABIA [id number] [place] [address] [place] Ovalocytes LM Ql (Bld) Few Normal [facility] Comment on above: Order Comment: Speci men Type: BLOOD SPECIMENOrdering Facility: [facility] Address: [address] [place] [address] Performed By: #### 5 7021-8 ####[facility] LABIA [id number] [place] [address] [place] Platelet mean volume (Bld) [Entitic vol] Normal [facility] Comment on above: Order Comment: Speci men Type: BLOOD SPECIMENOrdering Facility: [facility] Address: [address] [place] [address] Result Comment: Unab le to Report. Performed By: #### 5 7021-8 ####[facility] LABIA [id number] [place] [address] [place] Platelets (Bld) [#/Vol] 16 10*3/uL Low 150-400 [facility] Comment on above: Order Comment: Speci men Type: BLOOD SPECIMENOrdering Facility: [facility] Address: [address] [place] [address] Result Comment: No c lot detected.Results checked and verified. Performed By: #### 5 7021-8 ####[facility] LABIA [id number] [place] [address] [place] Platelets Estimate (Bld) [#/Vol] Decreased Normal [facility] Comment on above: Order Comment: Speci men Type: BLOOD SPECIMENOrdering Facility: [facility] Address: [address] [place] [address] Performed By: #### 5 7021-8 ####[facility] LABCLIA [id number] [place] [address] [place] Polychromasia LM Ql (Bld) Slight Normal [facility] Comment on above: Order Comment: Speci men Type: BLOOD SPECIMENOrdering Facility: [facility] Address: [address] Performed By: #### 5 7021-8 ####[facility] LABCLIA [id number] [place] [address] [place] RBC (Bld) [#/Vol] 2.12 10*6/uL Low 3.90-5.20 [facility] Comment on above: Order Comment: Speci men Type: BLOOD SPECIMENOrdering Facility: [facility] Address: [address] [place] [address] Performed By: #### 5 7021-8 ####[facility] LABCLIA [id number] [place] [address] [place] RBC FRAGMENTS Few Abnormal None Seen [facility] Comment on above: Order Comment: Speci men Type: BLOOD SPECIMENOrdering Facility: [facility] Address: [address] [place] [address] Performed By: #### 5 7021-8 ####[facility] LABCLIA [id number] [place] [address] [place] RED CELL MORPH Reviewed: see result s of individual morphologies Normal [facility] Comment on above: Order Comment: Speci men Type: BLOOD SPECIMENOrdering Facility: [facility] Address: [address] [place] [address] Performed By: #### 5 7021-8 ####[facility] LABCLIA [id number] [place] [address] [place] WBC (Bld) [#/Vol] 1.67 10*3/uL Low 3.70-11.00 [facility] Comment on above: Order Comment: Speci men Type: BLOOD SPECIMENOrdering Facility: [facility] Address: [address] [place], [place] [address] Result Comment: No c lot detected. Performed By: #### 5 7021-8 ####[facility] LABCLIA [id number] [place] [address] [place] WBC Left Shift Ql (Bld) Present Normal [facility] Comment on above: Order Comment: Speci men Type: BLOOD SPECIMENOrdering Facility: [facility] Address: [address] Performed By: #### 5 7021-8 ####[facility] LABCLIA [id number] [place] [address] [place] CNCOon 05-30-2023 CNCO Letter Text Normal [facility] CONSULT PROGon 05-30-2023 CONSULT PROG Normal [facility] Comprehensive metabolic 2000 panelon 05-30-2023 Albumin [Mass/Vol] 3.5 g/dL Low 3.9-4.9 [facility] Comment on above: Order Comment: Speci men Type: BLOOD SPECIMENOrdering Facility: [facility] Address: [address] Performed By: #### 1 9123-9, 2777-1, 3084-1, 27295-1 ####[facility] LABCLIA [id number] [place] [address] [place] ALP [Catalytic activity/Vol] 54 U/L Normal 34-123 [facility] Comment on above: Order Comment: Speci men Type: BLOOD SPECIMENOrdering Facility: [facility] Address: [address] Performed By: #### 1 9123-9, 2777-1, 3084-1, 06037-7 ####[facility] LABIA [id number] [place] [address] [place] ALT [Catalytic activity/Vol] 18 U/L Normal 7-38 [facility] Comment on above: Order Comment: Speci men Type: BLOOD SPECIMENOrdering Facility: [facility] Address: [address] [place], [place] [address] Performed By: #### 1 9123-9, 2777-1, 3084-1, 95219-4 ####[facility] LABCLIA [id number] [place] [address] [place] Anion gap [Moles/Vol] 9 mmol/L Normal 9-18 [facility] Comment on above: Order Comment: Speci men Type: BLOOD SPECIMENOrdering Facility: [facility] Address: [address] [place] [address] Performed By: #### 1 9123-9, 2777-1, 308-, 15740-7 ####[facility] LABCLIA [id number] [place] [address] [place] AST [Catalytic activity/Vol] 17 U/L Normal 13-35 [facility] Comment on above: Order Comment: Speci men Type: BLOOD SPECIMENOrdering Facility: [facility] Address: [address] [place] [address] Performed By: #### 1 9123-9, 277-1, 308-, 02040-9 ####[facility] LABCLIA [id number] [place] [address] [place] Bilirubin [Mass/Vol] 0.4 mg/dL Normal 0.2-1.3 [facility] Comment on above: Order Comment: Speci men Type: BLOOD SPECIMENOrdering Facility: [facility] Address: [address] [facility] [place] [address] Performed By: #### 1 9123-9, 277-1, 3083-09, 64735-5 ####[facility] LABCLIA [id number] [place] [address] [place] Calcium [Mass/Vol] 8.7 mg/dL Normal 8.5-10.2 [facility] Comment on above: Order Comment: Speci men Type: BLOOD SPECIMENOrdering Facility: [facility] Address: [address] [place] [address] Performed By: #### 1 9123-9, 277-1, 3084-, 92320-9 ####[facility] LABCLIA [id number] [place] [address] [place] Chloride [Moles/Vol] 107 mmol/L High 97-105 [facility] Comment on above: Order Comment: Speci men Type: BLOOD SPECIMENOrdering Facility: [facility] Address: [address] [place] [address] Performed By: #### 1 9123-9, 2777-1, 3084-1, 48270-6 ####[facility] LABIA [id number] [place] [address] [place] CO2 [Moles/Vol] 25 mmol/L Normal 22-30 [facility] Comment on above: Order Comment: Speci men Type: BLOOD SPECIMENOrdering Facility: [facility] Address: [address] [place] [address] Performed By: #### 1 9123-9, 2777-1, 3084-1, 36742-7 ####[facility] LABIA [id number] [place] [address] [place] [facility] Creatinine [Mass/Vol] 0.93 mg/dL Normal 0.58-0.96 [facility] Comment on above: Order Comment: Speci men Type: BLOOD SPECIMENOrdering Facility: [facility] Address: [address] [place] [address] Performed By: #### 1 9123-9, 2777-1, 3084-1, 15064-1 ####[facility] [id number] [place] [address] [place] Creatinine and Glomerular filtration rate.predicted panel (S/P/Bld) 67 mL/min/1.73m??? Normal >=60 [facility] Comment on above: Order Comment: Speci men Type: BLOOD SPECIMENOrdering Facility: [facility] Address: [address] [place] [address] Result Comment: Berenice mated Glomerular Filtration Rate [...] actual GFR. Performed By: #### 1 9123-9, 2776-09, 3083-09, ####[facility] LABCLIA [id number] [address] [address] [place] Glucose [Mass/Vol] 119 mg/dL High 74-99 [facility] Comment on above: Order Comment: Elvia escobar Type: BLOOD SPECIMENOrdering Facility: [facility] Address: [address] [place] [address] Result Comment: The [place] [employer] (ADA) provides guidance for cutoff [...] Standards of Medical Care in Diabetes 2016, [place] [employer]. Diabetes Care. 2016.39(Suppl 1). Performed By: #### 1 9123-9, 2776-09, 3083-09, ####[facility] LABCLIA [id number] [address] [address] [place] Potassium [Moles/Vol] 3.9 mmol/L Normal 3.7-5.1 [facility] Comment on above: Order Comment: Elvia escobar Type: BLOOD SPECIMENOrdering Facility: [facility] Address: [address] [place] [address] Performed By: #### 1 9123-9, 2776-09, 3083-09, ####[facility] LABCLIA [id number] [address] [address] [place] Protein [Mass/Vol] 5.7 g/dL Low 6.3-8.0 [facility] Comment on above: Order Comment: Speci men Type: BLOOD SPECIMENOrdering Facility: [facility] Address: [address] [place] [address] Performed By: #### 1 9123-9, 2777-1, 308-1, 12635-5 ####[facility] LABCLIA [id number] [address] [place] Sodium [Moles/Vol] 141 mmol/L Normal 136-144 [facility] Comment on above: Order Comment: Speci men Type: BLOOD SPECIMENOrdering Facility: [facility] Address: [address] [place] [address] Performed By: #### 1 9123-9, 277-1, 30812-02, 46319-4 ####[facility] LABCLIA [id number] [address] [place] Urea nitrogen [Mass/Vol] 15 mg/dL Normal 7-21 [facility] Comment on above: Order Comment: Speci men Type: BLOOD SPECIMENOrdering Facility: [facility] Address: [address] [place] [address] Performed By: #### 1 9123-9, 2777-, 30812-02, 37622-3 ####[facility] LABCLIA [id number] [place] [address] [place] MEDICAL EMERon 05-30-2023 MEDICAL RUFUS Normal [facility] Magnesium SerPl-mCncon 05-30 Magnesium [Mass/Vol] 2.1 mg/dL Normal 1.7-2.3 [facility] Comment on above: Order Comment: Speci men Type: BLOOD SPECIMENOrdering Facility: [facility] Address: [address] [place] [address] Performed By: #### 1 9123-9, 2777-1, 308-1, 77913-2 ####[facility] LABCLIA [id number] [place] [id number] [place] NUTRITIONon 05-30-2023 NUTRITION Normal [facility] PT EDon 05-30-2023 PT ED Normal [facility] Phosphate SerPl-mCncon 05-30 Phosphate [Mass/Vol] 4.0 mg/dL Normal 2.7-4.8 [facility] Comment on above: Order Comment: Speci men Type: BLOOD SPECIMENOrdering Facility: [facility] Address: [address] [place], [place] [address] Performed By: #### 1 9123-9, 2777-1, 3084-1, 37263-2 ####[facility] LABCLIA [id number] [place] [address] [place] SOCIAL WORKon 05-30-2023 SOCIAL WORK Normal [facility] SOCIAL WORK Normal [facility] U[facility] U[facility] [Mass/Vol] 2.2 mg/dL Low 2.5-6.6 [facility] Comment on above: Order Comment: Speci men Type: BLOOD SPECIMENOrdering Facility: [facility] Address: [address] [place] [address] Performed By: #### 1 9123-9, 2777-1, 3084-1, 91370-6 ####[facility] LABCLIA [id number] [place] [id number] [place] BMT REC INIT W/Uon 3 ALLOGEN RESULTS TO FOLLOW See Allogen report to follow Normal [facility] Comment on above: Order Comment: Speci men Type: BLOOD SPECIMENOrdering Facility: [facility] Address: [address] [place], [place] [address] Performed By: #### B MTRIW ####[facility] LABCLIA [id number] [place] [id number] [place] BRIEF OP NOTon 05-29-2023 BRIEF OP NOT Normal [facility] CASE MGT INIT ASSESon 2022 CASE MGT INIT ASSES Normal [facility] CBC W Auto Differential pane l (Bld)on 05-29-2023 Anisocytosis Ql (Bld) Present Normal [facility] Comment on above: Order Comment: Speci men Type: BLOOD SPECIMENOrdering Facility: [facility] Address: [address] [place] [address] Performed By: #### 5 7021-8 ####[facility] LABCLIA [id number] [place] [address] [place] Basophils (Bld) [#/Vol] 0.00 10*3/uL Normal <0.11 [facility] Comment on above: Order Comment: Speci men Type: BLOOD SPECIMENOrdering Facility: [facility] Address: [address] [place] [address] Performed By: #### 5 7021-8 ####[facility] LABCLIA [id number] [place] [address] [place] Basophils/100 WBC (Bld) 0.0 % Normal [facility] Comment on above: Order Comment: Speci men Type: BLOOD SPECIMENOrdering Facility: [facility] Address: [address] [place] [address] Performed By: #### 5 7021-8 ####[facility] LABCLIA [id number] [place] [address] [place] BLAST% 4.9 % High <=0.0 [facility] Comment on above: Order Comment: Speci men Type: BLOOD SPECIMENOrdering Facility: [facility] Address: [address] [place], [place] [address] Performed By: #### 5 7021-8 ####[facility] LABCLIA [id number] [place] [address] [place] Dacrocytes LM Ql (Bld) Few Normal [facility] Comment on above: Order Comment: Speci men Type: BLOOD SPECIMENOrdering Facility: [facility] Address: [address] Performed By: #### 5 7021-8 ####[facility] LABCLIA [id number] [place] [address] [place] Differential cell count method Nom (Bld) Manual Normal [facility] Comment on above: Order Comment: Speci men Type: BLOOD SPECIMENOrdering Facility: [facility] Address: [address] Performed By: #### 5 7021-8 ####[facility] LABCLIA [id number] [place] [address] [place] Eosinophils (Bld) [#/Vol] 0.03 10*3/uL Normal <0.46 [facility] Comment on above: Order Comment: Speci men Type: BLOOD SPECIMENOrdering Facility: [facility] Address: [address] Performed By: #### 5 7021-8 ####[facility] LABCLIA [id number] [place] [address] [place] Eosinophils/100 WBC (Bld) 2.2 % Normal [facility] Comment on above: Order Comment: Speci men Type: BLOOD SPECIMENOrdering Facility: [facility] Address: [address] Performed By: #### 5 7021-8 ####[facility] LABCLIA [id number] [place] [address] [place] Erythrocyte distribution width (RBC) [Ratio] 18.3 % High 11.5-15.0 [facility] Comment on above: Order Comment: Speci men Type: BLOOD SPECIMENOrdering Facility: [facility] Address: [address] Performed By: #### 5 7021-8 ####[facility] LABCLIA [id number] [place] [address] [place] Hematocrit (Bld) [Volume fraction] 18.6 % Low 36.0-46.0 [facility] Comment on above: Order Comment: Speci men Type: BLOOD SPECIMENOrdering Facility: [facility] Address: [address] [place] [address] Performed By: #### 5 7021-8 ####[facility] LABIA [id number] [place] [address] [place] Hemoglobin (Bld) [Mass/Vol] 6.6 g/dL Low 11.5-15.5 [facility] Comment on above: Order Comment: Speci men Type: BLOOD SPECIMENOrdering Facility: [facility] Address: [address] [place] [address] Performed By: #### 5 7021-8 ####[place] [id number] [place] [address] [place] Lymphocytes (Bld) [#/Vol] 1.08 10*3/uL Normal 1.00-4.00 [facility] Comment on above: Order Comment: Speci men Type: BLOOD SPECIMENOrdering Facility: [facility] Address: [address] [place] [address] Performed By: #### 5 7021-8 ####[facility] [id number] [place] [address] [place] Lymphocytes/100 WBC (Bld) 75.2 % Normal [facility] Comment on above: Order Comment: Speci men Type: BLOOD SPECIMENOrdering Facility: [facility] Address: [address] [place], [place] [address] Performed By: #### 5 7021-8 ####[facility] [id number] [place] [address] [place] MCH (RBC) [Entitic mass] 35.1 pg High 26.0-34.0 [facility] Comment on above: Order Comment: Speci men Type: BLOOD SPECIMENOrdering Facility: [facility] Address: [address] [place], [place] [address] Performed By: #### 5 7021-8 ####[facility] LABCLIA [id number] [place] [address] [place] MCHC (RBC) [Mass/Vol] 35.5 g/dL Normal 30.5-36.0 [facility] Comment on above: Order Comment: Speci men Type: BLOOD SPECIMENOrdering Facility: [facility] Address: [address] [place], [place] [address] Performed By: #### 5 7021-8 ####[facility] LABIA [id number] [place] [address] [place] MCV (RBC) [Entitic vol] 98.9 fL Normal 80.0-100.0 [facility] Comment on above: Order Comment: Speci men Type: BLOOD SPECIMENOrdering Facility: [facility] Address: [address] [place], [place] [address] Performed By: #### 5 7021-8 ####[facility] LABIA [id number] [place] [address] [place] Monocytes (Bld) [#/Vol] 0.01 10*3/uL Normal <0.87 [facility] Comment on above: Order Comment: Speci men Type: BLOOD SPECIMENOrdering Facility: [facility] Address: [address] Performed By: #### 5 7021-8 ####[facility] LABIA [id number] [address] [place] Monocytes/100 WBC (Bld) 0.4 % Normal [facility] Comment on above: Order Comment: Speci men Type: BLOOD SPECIMENOrdering Facility: [facility] Address: [address] Performed By: #### 5 7021-8 ####[facility] LABCLIA [id number] [place] [address] [place] MYELO% 0.4 % Normal [facility] Comment on above: Order Comment: Speci men Type: BLOOD SPECIMENOrdering Facility: [facility] Address: [address] Performed By: #### 5 7021-8 ####[facility] LABCLIA [id number] [place] [address] [place] Neutrophils (Bld) [#/Vol] 0.24 10*3/uL Low 1.45-7.50 [facility] Comment on above: Order Comment: Speci men Type: BLOOD SPECIMENOrdering Facility: [facility] Address: [address] Performed By: #### 5 7021-8 ####[facility] LABCLIA [id number] [place] [address] [place] Neutrophils/100 WBC (Bld) 16.9 % Normal [facility] Comment on above: Order Comment: Speci men Type: BLOOD SPECIMENOrdering Facility: [facility] Address: [address] [place], [place] [address] Performed By: #### 5 7021-8 ####[facility] LABCLIA [id number] [place] [address] [place] Nucleated RBC (Bld) [#/Vol] 0.02 10*3/uL High <0.01 [facility] Comment on above: Order Comment: Speci men Type: BLOOD SPECIMENOrdering Facility: [facility] Address: [address] [place], [place] [address] Performed By: #### 5 7021-8 ####[facility] LABCLIA [id number] [place] [address] [place] Nucleated RBC/100 WBC (Bld) [Ratio] 1.3 /100 WBC Normal [facility] Comment on above: Order Comment: Speci men Type: BLOOD SPECIMENOrdering Facility: [facility] Address: [address] [place] [address] Performed By: #### 5 7021-8 ####[facility] LABIA [id number] [place] [address] [place] Ovalocytes LM Ql (Bld) Few Normal [facility] Comment on above: Order Comment: Speci men Type: BLOOD SPECIMENOrdering Facility: [facility] Address: [address] [place] [address] Performed By: #### 5 7021-8 ####[facility] LABIA [id number] [place] [address] [place] Platelet mean volume (Bld) [Entitic vol] Normal [facility] Comment on above: Order Comment: Speci men Type: BLOOD SPECIMENOrdering Facility: [facility] Address: [address] [place] [address] Result Comment: Unab le to Report. Performed By: #### 5 7021-8 ####[place] [id number] [place] [address] [place] Platelets (Bld) [#/Vol] 14 10*3/uL Low 150-400 [facility] Comment on above: Order Comment: Speci men Type: BLOOD SPECIMENOrdering Facility: [facility] Address: [address] [place] [address] Result Comment: Resu lts checked and verified.No clot detected. Performed By: #### 5 7021-8 ####[facility] LABIA [id number] [place] [address] [place] Platelets Estimate (Bld) [#/Vol] Decreased Normal [facility] Comment on above: Order Comment: Speci men Type: BLOOD SPECIMENOrdering Facility: [facility] Address: [address] [place] [address] Performed By: #### 5 7021-8 ####[facility] LABCLIA [id number] [place] [address] [place] Polychromasia LM Ql (Bld) Slight Normal [facility] Comment on above: Order Comment: Speci men Type: BLOOD SPECIMENOrdering Facility: [facility] Address: [address] Performed By: #### 5 7021-8 ####[facility] LABCLIA [id number] [place] [address] [place] RBC (Bld) [#/Vol] 1.88 10*6/uL Low 3.90-5.20 [facility] Comment on above: Order Comment: Speci men Type: BLOOD SPECIMENOrdering Facility: [facility] Address: [address] [place], [place] [address] Performed By: #### 5 7021-8 ####[facility] LABCLIA [id number] [place] [address] [place] RBC FRAGMENTS Few Abnormal None Seen [facility] Comment on above: Order Comment: Speci men Type: BLOOD SPECIMENOrdering Facility: [facility] Address: [address] [place], [place] [address] Performed By: #### 5 7021-8 ####[facility] LABCLIA [id number] [place] [address] [place] RED CELL MORPH Reviewed: see result s of individual morphologies Normal [facility] Comment on above: Order Comment: Speci men Type: BLOOD SPECIMENOrdering Facility: [facility] Address: [address] [place] [address] Performed By: #### 5 7021-8 ####[facility] LABCLIA [id number] [place] [address] [place] WBC (Bld) [#/Vol] 1.43 10*3/uL Low 3.70-11.00 [facility] Comment on above: Order Comment: Speci men Type: BLOOD SPECIMENOrdering Facility: [facility] Address: [address] [place] [address] Result Comment: No c lot detected. Performed By: #### 5 7021-8 ####[facility] LABCLIA [id number] [place] [address] [place] WBC Left Shift Ql (Bld) Present Normal [facility] Comment on above: Order Comment: Speci men Type: BLOOD SPECIMENOrdering Facility: [facility] Address: [address] [place] [address] Performed By: #### 5 7021-8 ####[facility] LABCLIA [id number] [place] [address] [place] CMV IgG Qnon 05-29-2023 CMV IGG QUAL Negative Normal Negative [facility] Comment on above: Order Comment: Speci men Type: BLOOD SPECIMENOrdering Facility: [facility] Address: [address] [place] [address] Result Comment: No s erological evidence of past exposure to Cytomegalovirus. Cannot exclude recent infection if the specimen collected within 4-6 weeks after infection. Performed By: #### 7 852-7 ####[facility] LABCLIA [id number] [place] [address] [place] CMV IgG SerPl-aCncon 023 CMV IgG Qn 0.24 U/mL Normal [facility] Comment on above: Order Comment: Speci [facility] Type: BLOOD SPECIMENOrdering Facility: [facility] Address: [address] [place] [address] Result Comment: The magnitude of the measured result is not indicative of the amount of antibody present.U/mL values are interpreted as follows:Negative <0.6Equivocal 0.6 to <0.70Positive >=0.70 Performed By: #### 7 852-7 ####[facility] LABCLIA [id number] [place] [address] [place] CONSULTon 05-29-2023 CONSULT Normal [facility] metabolic 2000 panelon 05-29-2023 Albumin [Mass/Vol] 3.5 g/dL Low 3.9-4.9 [facility] Comment on above: Order Comment: Speci men Type: BLOOD SPECIMENOrdering Facility: [facility] Address: [address] [place] [address] Performed By: #### 2 4323-8 ####[facility] LABIA [id number] [place] [address] [place] ALP [Catalytic activity/Vol] 50 U/L Normal 34-123 [facility] Comment on above: Order Comment: Speci men Type: BLOOD SPECIMENOrdering Facility: [facility] Address: [address] [place] [address] Performed By: #### 2 4323-8 ####[facility] LABIA [id number] [address] [place] ALT [Catalytic activity/Vol] 11 U/L Normal 7-38 [facility] Comment on above: Order Comment: Speci men Type: BLOOD SPECIMENOrdering Facility: [facility] Address: [address] [place] [address] Performed By: #### 2 4323-8 ####[facility] LABIA [id number] [address] [place] Anion gap [Moles/Vol] 10 mmol/L Normal 9-18 [facility] Comment on above: Order Comment: Speci men Type: BLOOD SPECIMENOrdering Facility: [facility] Address: [address] [place], [place] [address] Performed By: #### 2 4323-8 ####[facility] LABIA [id number] [place] [address] [place] AST [Catalytic activity/Vol] 12 U/L Low 13-35 [facility] Comment on above: Order Comment: Speci men Type: BLOOD SPECIMENOrdering Facility: [facility] Address: [address] Performed By: #### 2 4323-8 ####[facility] LABCLIA [id number] [place] [address] [place] Bilirubin [Mass/Vol] 0.4 mg/dL Normal 0.2-1.3 [facility] Comment on above: Order Comment: Speci men Type: BLOOD SPECIMENOrdering Facility: [facility] Address: [address] Performed By: #### 2 4323-8 ####[facility] LABCLIA [id number] [place] [address] [place] Calcium [Mass/Vol] 8.5 mg/dL Normal 8.5-10.2 [facility] Comment on above: Order Comment: Speci men Type: BLOOD SPECIMENOrdering Facility: [facility] Address: [address] [place], [place] [address] Performed By: #### 2 4323-8 ####[facility] LABCLIA [id number] [place] [address] [place] Chloride [Moles/Vol] 107 mmol/L High 97-105 [facility] Comment on above: Order Comment: Speci men Type: BLOOD SPECIMENOrdering Facility: [facility] Address: [address] Performed By: #### 2 4323-8 ####[facility] LABCLIA [id number] [place] [address] [place] CO2 [Moles/Vol] 25 mmol/L Normal 22-30 [facility] Comment on above: Order Comment: Speci men Type: BLOOD SPECIMENOrdering Facility: [facility] Address: [address] Performed By: #### 2 4323-8 ####[facility] LABIA [id number] [address] STATES OF [facility] Creatinine [Mass/Vol] 0.92 mg/dL Normal 0.58-0.96 [facility] Comment on above: Order Comment: Elvia escobar Type: BLOOD SPECIMENOrdering Facility: [facility] Address: [address] [place] [address] Performed By: #### 2 4323-8 ####[facility] LABIA [id number] [address] Creatinine and Glomerular filtration rate.predicted panel (S/P/Bld) 68 mL/min/1.73m??? Normal >=60 [facility] Comment on above: Order Comment: Elvia escobar Type: BLOOD SPECIMENOrdering Facility: [facility] Address: [address] [place] [address] Result Comment: Berenice mated Glomerular Filtration Rate [...] actual GFR. Performed By: #### 2 4323-8 ####[facility] LABIA [id number] [place] [address] [place] Glucose [Mass/Vol] 110 mg/dL High 74-99 [facility] Comment on above: Order Comment: Elvia escobar Type: BLOOD SPECIMENOrdering Facility: [facility] Address: [address] [place] [address] Result Comment: The [place] [employer] (ADA) provides guidance for cutoff [...] Standards of Medical Care in Diabetes 2016, [place] [employer]. Diabetes Care. 2016.39(Suppl 1). Performed By: #### 2 4323-8 ####[facility] LABCLIA [id number] [place] [address] [place] Potassium [Moles/Vol] 3.9 mmol/L Normal 3.7-5.1 [facility] Comment on above: Order Comment: Speci men Type: BLOOD SPECIMENOrdering Facility: [facility] Address: [address] [place] [address] Performed By: #### 2 4323-8 ####[facility] LABCLIA [id number] [place] [address] [place] Protein [Mass/Vol] 5.6 g/dL Low 6.3-8.0 [facility] Comment on above: Order Comment: Speci men Type: BLOOD SPECIMENOrdering Facility: [facility] Address: [address] [place] [address] Performed By: #### 2 4323-8 ####[facility] LABCLIA [id number] [place] [address] [place] Sodium [Moles/Vol] 142 mmol/L Normal 136-144 [facility] Comment on above: Order Comment: Speci men Type: BLOOD SPECIMENOrdering Facility: [facility] Address: [address] [place] [address] Performed By: #### 2 4323-8 ####[facility] LABCLIA [id number] [place] [address] [place] Urea nitrogen [Mass/Vol] 16 mg/dL Normal 7-21 [facility] Comment on above: Order Comment: Speci men Type: BLOOD SPECIMENOrdering Facility: [facility] Address: [address] [place], [place] [address] Performed By: #### 2 4323-8 ####[facility] LABIA [id number] [place] [address] [place] IR CENTRAL LINE REMOVALon IR CENTRAL LINE REMOVAL Normal [facility] MEDICAL EMERon 05-29-2023 MEDICAL RUFUS Normal [facility] SOCIAL WORKon 05-29-2023 SOCIAL WORK Normal [facility] SURGICAL PATHOLOGYon 023 CASE REPORT Normal [facility] Comment on above: Order Comment: Speci men Type: TISSUE SPECIMENOrdering Facility: [facility] Address: [address] [place] [address] Result Comment: Surg ical Pathology Report Case: [id number] Provider: Brandy Castro, Collected: 05/29/2023 03:21 PM SCIENTIFIC PUBLICATIONS EDITOR.CNPOrdering Location: [place] [address] Received: 05/29/2023 10:53 PMPathologist: Rosalia Gaytan MDSpecimen: HARDWARE Performed By: #### S ####[facility] LABIA [id number] [place] [address] [place] CLINICAL HISTORY infected port Normal [facility] Comment on above: Order Comment: Speci men Type: TISSUE SPECIMENOrdering Facility: [facility] Address: [address] [place] [address] Performed By: #### S ####[facility] LABIA [id number] [address] OF [facility] FINAL DIAGNOSIS Normal [facility] Comment on above: Order Comment: Speci men Type: TISSUE SPECIMENOrdering Facility: [facility] Address: [address] [place] [address] Result Comment: A. S ite not specified, port removal:-Unremarkable port (gross diagnosis only).ME/JXM 05/30/2023 Performed By: #### S ####[facility] LABCLIA [id number] [place] [address] [place] FINAL PERFORMING LAB Normal [facility] Comment on above: Order Comment: Speci men Type: TISSUE SPECIMENOrdering Facility: [facility] Address: [address] [place] [address] Result Comment: Diag nostic interpretation performed at [facility], [address] [place] [address] CLIA# [id number] Director: Boris Wood M.D. Performed By: #### S ####[facility] [id number] [address] GROSS DESCRIPTION A. HARDWARE Normal [facility] Comment on above: Order Comment: Speci men Type: TISSUE SPECIMENOrdering Facility: [facility] Address: [address] [place] [address] Result Comment: Rece ived fresh labeled hardware [...] for gross examination only.Gross examination performed at [address] [id number] 05/30/23 10:43 AM Performed By: #### S ####[facility] LABCLIA [id number] [place] [address] [place] TYPE + SCREENon 05-29-2023 ABO O Normal [facility] Comment on above: Order Comment: Speci men Type: BLOOD SPECIMENOrdering Facility: [facility] Address: [address] [place] [address] Performed By: #### T SCR ####[facility] [id number] [place] [address] HISTORICAL AB SCR STATUS Negative Normal [facility] Comment on above: Order Comment: Speci men Type: BLOOD SPECIMENOrdering Facility: [facility] Address: [address] [place], [place] [address] Performed By: #### T SCR ####[facility] BLOOD BANKCLIA [id number] [address] Rh Nom (Bld) Positive Normal [facility] Comment on above: Order Comment: Speci men Type: BLOOD SPECIMENOrdering Facility: [facility] Address: [address] [place] [address] Performed By: #### T SCR ####[facility] BLOOD BANKCLIA [id number] [address] TYPE AND SCREEN EXPIRATION 06/01/2023 23:59 Normal [facility] Comment on above: Order Comment: Speci men Type: BLOOD SPECIMENOrdering Facility: [facility] Address: [address] [place] [address] Performed By: #### T SCR ####[facility] BLOOD BANKCLIA [id number] [address] OF [place] Bacteria Bld Culton 05-28-20 23 Bacteria identified Cx Nom (Bld) CULTURE, BLOOD: No growth 5 days Normal [facility] Comment on above: Performed By: #### 6 00-7 ####[facility] LABCLIA [id number] [address] [place] Bacteria identified Cx Nom (Bld) CULTURE, BLOOD: No growth 5 days Normal [facility] Comment on above: Performed By: #### 6 00-7 ####[facility] LABCLIA [id number] [place] [address] [place] CBC W Auto Differential pane l (Bld)on 05-28-2023 Anisocytosis Ql (Bld) Present Normal [facility] Comment on above: Order Comment: Speci men Type: BLOOD SPECIMENOrdering Facility: [facility] Address: [address] Performed By: #### 5 7021-8, [id number] ####[facility] LABCLIA [id number] [place] [address] [place] Basophils (Bld) [#/Vol] 0.00 10*3/uL Normal <0.11 [facility] Comment on above: Order Comment: Speci men Type: BLOOD SPECIMENOrdering Facility: [facility] Address: [address] Performed By: #### 5 7021-8, [id number] ####[facility] LABCLIA [id number] [place] [address] [place] Basophils/100 WBC (Bld) 0.0 % Normal [facility] Comment on above: Order Comment: Speci men Type: BLOOD SPECIMENOrdering Facility: [facility] Address: [address] Performed By: #### 5 7021-8, [id number] ####[facility] LABCLIA [id number] [place] [address] [place] BLAST% 7.0 % High <=0.0 [facility] Comment on above: Order Comment: Speci men Type: BLOOD SPECIMENOrdering Facility: [facility] Address: [address] Performed By: #### 5 7021-8, [id number] ####[facility] LABCLIA [id number] [place] [address] [place] Differential cell count method Nom (Bld) Manual Normal [facility] Comment on above: Order Comment: Speci men Type: BLOOD SPECIMENOrdering Facility: [facility] Address: [address] Performed By: #### 5 7021-8, [id number] ####[facility] LABCLIA [id number] [place] [address] [place] Eosinophils (Bld) [#/Vol] 0.03 10*3/uL Normal <0.46 [facility] Comment on above: Order Comment: Speci men Type: BLOOD SPECIMENOrdering Facility: [facility] Address: [address] [place] [address] Performed By: #### 5 7021-8, [id number] ####[facility] LABCLIA [id number] [place] [address] [place] Eosinophils/100 WBC (Bld) 2.0 % Normal [facility] Comment on above: Order Comment: Speci men Type: BLOOD SPECIMENOrdering Facility: [facility] Address: [address] [place] [address] Performed By: #### 5 7021-8, [id number] ####[facility] LABCLIA [id number] [place] [address] [place] Erythrocyte distribution width (RBC) [Ratio] 18.3 % High 11.5-15.0 [facility] Comment on above: Order Comment: Speci men Type: BLOOD SPECIMENOrdering Facility: [facility] Address: [address] [place] [address] Performed By: #### 5 7021-8, [id number] ####[facility] LABCLIA [id number] [place] [address] [place] Hematocrit (Bld) [Volume fraction] 21.7 % Low 36.0-46.0 [facility] Comment on above: Order Comment: Speci men Type: BLOOD SPECIMENOrdering Facility: [facility] Address: [address] [place] [address] Performed By: #### 5 7021-8, [id number] ####[facility] LABCLIA [id number] [place] [address] [place] Hemoglobin (Bld) [Mass/Vol] 7.5 g/dL Low 11.5-15.5 [facility] Comment on above: Order Comment: Speci men Type: BLOOD SPECIMENOrdering Facility: [facility] Address: [address] [place] [address] Performed By: #### 5 7021-8, [id number] ####[facility] LABCLIA [id number] [place] [address] [place] HYPOGRANULATED PMNS Present Normal [facility] Comment on above: Order Comment: Speci men Type: BLOOD SPECIMENOrdering Facility: [facility] Address: [address] [place] [address] Performed By: #### 5 7021-8, [id number] ####[facility] LABCLIA [id number] [place] [address] [place] Lymphocytes (Bld) [#/Vol] 0.94 10*3/uL Low 1.00-4.00 [facility] Comment on above: Order Comment: Speci men Type: BLOOD SPECIMENOrdering Facility: [facility] Address: [address] [place], [place] [address] Performed By: #### 5 7021-8, [id number] ####[facility] LABCLIA [id number] [place] [address] [place] Lymphocytes/100 WBC (Bld) 62.0 % Normal [facility] Comment on above: Order Comment: Speci men Type: BLOOD SPECIMENOrdering Facility: [facility] Address: [address] [place], [place] [address] Performed By: #### 5 7021-8, [id number] ####[facility] LABCLIA [id number] [place] [address] [place] MCH (RBC) [Entitic mass] 34.9 pg High 26.0-34.0 [facility] Comment on above: Order Comment: Speci men Type: BLOOD SPECIMENOrdering Facility: [facility] Address: [address] [place] [address] Performed By: #### 5 7021-8, [id number] ####[facility] LABCLIA [id number] [place] [address] [place] MCHC (RBC) [Mass/Vol] 34.6 g/dL Normal 30.5-36.0 [facility] Comment on above: Order Comment: Speci men Type: BLOOD SPECIMENOrdering Facility: [facility] Address: [address] Performed By: #### 5 7021-8, [id number] ####[facility] LABCLIA [id number] [place] [address] [place] MCV (RBC) [Entitic vol] 100.9 fL High 80.0-100.0 [facility] Comment on above: Order Comment: Speci men Type: BLOOD SPECIMENOrdering Facility: [facility] Address: [address] [place] [address] Performed By: #### 5 7021-8, [id number] ####[facility] LABIA [id number] [place] [address] [place] Monocytes (Bld) [#/Vol] 0.03 10*3/uL Normal <0.87 [facility] Comment on above: Order Comment: Speci men Type: BLOOD SPECIMENOrdering Facility: [facility] Address: [address] [place] [address] Performed By: #### 5 7021-8, [id number] ####[facility] LABCLIA [id number] [place] [address] [place] Monocytes/100 WBC (Bld) 2.0 % Normal [facility] Comment on above: Order Comment: Speci men Type: BLOOD SPECIMENOrdering Facility: [facility] Address: [address] [place] [address] Performed By: #### 5 7021-8, [id number] ####[facility] LABCLIA [id number] [place] [address] [place] Neutrophils (Bld) [#/Vol] 0.41 10*3/uL Low 1.45-7.50 [facility] Comment on above: Order Comment: Speci men Type: BLOOD SPECIMENOrdering Facility: [facility] Address: [address] Performed By: #### 5 7021-8, [id number] ####[facility] LABCLIA [id number] [place] [address] [place] Neutrophils/100 WBC (Bld) 27.0 % Normal [facility] Comment on above: Order Comment: Speci men Type: BLOOD SPECIMENOrdering Facility: [facility] Address: [address] [place], [place] [address] Performed By: #### 5 7021-8, [id number] ####[facility] LABCLIA [id number] [place] [address] [place] Nucleated RBC (Bld) [#/Vol] 0.02 10*3/uL High <0.01 [facility] Comment on above: Order Comment: Speci men Type: BLOOD SPECIMENOrdering Facility: [facility] Address: [address] [place] [address] Performed By: #### 5 7021-8, [id number] ####[facility] LABCLIA [id number] [place] [address] [place] Nucleated RBC/100 WBC (Bld) [Ratio] 1.0 /100 WBC Normal [facility] Comment on above: Order Comment: Speci men Type: BLOOD SPECIMENOrdering Facility: [facility] Address: [address] Performed By: #### 5 7021-8, [id number] ####[facility] LABCLIA [id number] [place] [address] [place] Ovalocytes LM Ql (Bld) Few Normal [facility] Comment on above: Order Comment: Speci men Type: BLOOD SPECIMENOrdering Facility: [facility] [facility] Address: [address] [place] [address] Performed By: #### 5 7021-8, [id number] ####[facility] LABCLIA [id number] [place] [address] [place] Platelet mean volume (Bld) [Entitic vol] Normal [facility] Comment on above: Order Comment: Speci men Type: BLOOD SPECIMENOrdering Facility: [facility] Address: [address] [place] [address] Result Comment: Unab le to Report. Performed By: #### 5 7021-8, [id number] ####[facility] LABCLIA [id number] [place] [address] [place] Platelets (Bld) [#/Vol] 17 10*3/uL Low 150-400 [facility] Comment on above: Order Comment: Speci men Type: BLOOD SPECIMENOrdering Facility: [facility] Address: [address] [place] [address] Result Comment: Resu lts checked and verified.No clot detected. Performed By: #### 5 7021-8, [id number] ####[facility] LABCLIA [id number] [place] [address] [place] Platelets Estimate (Bld) [#/Vol] Decreased Normal [facility] Comment on above: Order Comment: Speci men Type: BLOOD SPECIMENOrdering Facility: [facility] Address: [address] [place], [place] [address] Performed By: #### 5 7021-8, [id number] ####[facility] LABCLIA [id number] [place] [address] [place] Polychromasia LM Ql (Bld) Slight Normal [facility] Comment on above: Order Comment: Speci men Type: BLOOD SPECIMENOrdering Facility: [facility] Address: [address] [place] [address] Performed By: #### 5 7021-8, [id number] ####[facility] LABCLIA [id number] [place] [address] [place] RBC (Bld) [#/Vol] 2.15 10*6/uL Low 3.90-5.20 [facility] Comment on above: Order Comment: Speci men Type: BLOOD SPECIMENOrdering Facility: [facility] Address: [address] Performed By: #### 5 7021-8, [id number] ####[facility] LABCLIA [id number] [place] [address] [place] RBC FRAGMENTS Few Abnormal None Seen [facility] Comment on above: Order Comment: Speci men Type: BLOOD SPECIMENOrdering Facility: [facility] Address: [address] Performed By: #### 5 7021-8, [id number] ####[facility] LABCLIA [id number] [place] [address] [place] RED CELL MORPH Reviewed: see result s of individual morphologies Normal [facility] Comment on above: Order Comment: Speci men Type: BLOOD SPECIMENOrdering Facility: [facility] Address: [address] [place] [address] Performed By: #### 5 7021-8, [id number] ####[facility] LABCLIA [id number] [place] [address] [place] Target cells LM Ql (Bld) Few Normal [facility] Comment on above: Order Comment: Speci men Type: BLOOD SPECIMENOrdering Facility: [facility] Address: [address] [place] [address] Performed By: #### 5 7021-8, [id number] ####[facility] LABCLIA [id number] [place] [address] [place] WBC (Bld) [#/Vol] 1.52 10*3/uL Low 3.70-11.00 [facility] Comment on above: Order Comment: Speci men Type: BLOOD SPECIMENOrdering Facility: [facility] Address: [address] Performed By: #### 5 7021-8, [id number] ####[facility] LABCLIA [id number] [place] [address] [place] CNNURSEon 05-28-2023 CNNURSE Normal [facility] CNOVSPon 05-28-2023 CNOVSP Normal [facility] CONSULT PROGon 05-28-2023 CONSULT PROG Normal [facility] Comprehensive metabolic 2000 panelon 05-28-2023 Albumin [Mass/Vol] 4.1 g/dL Normal 3.9-4.9 [facility] Comment on above: Order Comment: Speci men Type: BLOOD SPECIMENOrdering Facility: [facility] Address: [address] [place], [place] [address] Performed By: #### 2 4323-8 ####[facility] LABCLIA [id number] [place] [address] [place] ALP [Catalytic activity/Vol] 60 U/L Normal 34-123 [facility] Comment on above: Order Comment: Speci men Type: BLOOD SPECIMENOrdering Facility: [facility] Address: [address] [place] [address] Performed By: #### 2 4323-8 ####[facility] LABIA [id number] [place] [address] [place] ALT [Catalytic activity/Vol] 12 U/L Normal 7-38 [facility] Comment on above: Order Comment: Speci men Type: BLOOD SPECIMENOrdering Facility: [facility] Address: [address] [place] [address] Performed By: #### 2 4323-8 ####[facility] LABCLIA [id number] [place] [address] [place] Anion gap [Moles/Vol] 10 mmol/L Normal 9-18 [facility] Comment on above: Order Comment: Speci men Type: BLOOD SPECIMENOrdering Facility: [facility] Address: [address] [place], [place] [address] Performed By: #### 2 4323-8 ####[facility] LABCLIA [id number] [place] [address] [place] AST [Catalytic activity/Vol] 12 U/L Low 13-35 [facility] Comment on above: Order Comment: Speci men Type: BLOOD SPECIMENOrdering Facility: [facility] Address: [address] [place] [address] Performed By: #### 2 4323-8 ####[facility] LABCLIA [id number] [place] [address] [place] Bilirubin [Mass/Vol] 0.4 mg/dL Normal 0.2-1.3 [facility] Comment on above: Order Comment: Speci men Type: BLOOD SPECIMENOrdering Facility: [facility] Address: [address] [place], [place] [address] Performed By: #### 2 4323-8 ####[facility] LABCLIA [id number] [place] [address] [place] Calcium [Mass/Vol] 9.0 mg/dL Normal 8.5-10.2 [facility] Comment on above: Order Comment: Speci men Type: BLOOD SPECIMENOrdering Facility: [facility] Address: [address] [place], [place] [address] Performed By: #### 2 4323-8 ####[facility] LABCLIA [id number] [place] [address] [place] Chloride [Moles/Vol] 104 mmol/L Normal 97-105 [facility] Comment on above: Order Comment: Speci men Type: BLOOD SPECIMENOrdering Facility: [facility] Address: [address] [place] [address] Performed By: #### 2 4323-8 ####[facility] LABCLIA [id number] [place] [address] [place] CO2 [Moles/Vol] 24 mmol/L Normal 22-30 [facility] Comment on above: Order Comment: Speci men Type: BLOOD SPECIMENOrdering Facility: [facility] Address: [address] [place] [address] Performed By: #### 2 4323-8 ####[facility] LABIA [id number] [address] STATES OF [facility] Creatinine [Mass/Vol] 0.84 mg/dL Normal 0.58-0.96 [facility] Comment on above: Order Comment: Speci men Type: BLOOD SPECIMENOrdering Facility: [facility] Address: [address] [place] [address] Performed By: #### 2 4323-8 ####[facility] LABIA [id number] [address] Creatinine and Glomerular filtration rate.predicted panel (S/P/Bld) 75 mL/min/1.73m??? Normal >=60 [facility] Comment on above: Order Comment: Speci men Type: BLOOD SPECIMENOrdering Facility: [facility] Address: [address] [place] [address] Result Comment: Berenice mated Glomerular Filtration Rate [...] actual GFR. Performed By: #### 2 4323-8 ####[facility] LABCLIA [id number] [place] [address] [place] Glucose [Mass/Vol] 130 mg/dL High 74-99 [facility] Comment on above: Order Comment: Speci men Type: BLOOD SPECIMENOrdering Facility: [facility] Address: [address] [place] [address] Result Comment: The [place] Diabetes Association (ADA) provides guidance for cutoff [...] Standards of Medical Care in Diabetes 2016, [place] [employer]. Diabetes Care. 2016.39(Suppl 1). Performed By: #### 2 4323-8 ####[facility] LABCLIA [id number] [place] [address] [place] Potassium [Moles/Vol] 3.7 mmol/L Normal 3.7-5.1 [facility] Comment on above: Order Comment: Speci men Type: BLOOD SPECIMENOrdering Facility: [facility] Address: [address] [place] [address] Performed By: #### 2 4323-8 ####[facility] LABCLIA [id number] [place] [address] [place] Protein [Mass/Vol] 6.4 g/dL Normal 6.3-8.0 [facility] Comment on above: Order Comment: Speci men Type: BLOOD SPECIMENOrdering Facility: [facility] Address: [address] [place] [address] Performed By: #### 2 4323-8 ####[facility] LABCLIA [id number] [place] [address] [place] Sodium [Moles/Vol] 138 mmol/L Normal 136-144 [facility] Comment on above: Order Comment: Speci men Type: BLOOD SPECIMENOrdering Facility: [facility] Address: [address] [place] [address] Performed By: #### 2 4323-8 ####[facility] LABCLIA [id number] [place] [address] [place] Urea nitrogen [Mass/Vol] 17 mg/dL Normal 7-21 [facility] Comment on above: Order Comment: Speci men Type: BLOOD SPECIMENOrdering Facility: [facility] Address: [address] [place] [address] Performed By: #### 2 4323-8 ####[facility] LABCLIA [id number] [place] [address] [place] ED NOTEon 05-28-2023 ED NOTE HNO ID: [id number] Author: Whit Herron RN Service: Emergency Medicine Author Type: Registered Nurse Type: ED Notes Filed: 05/28/2023 8:24 PM Note Text: Report Given to Daysi OLEARY Normal [facility] ED NOTE HNO ID: [id number] Author: Alyce James RN Service: Emergency Medicine Author Type: Registered Nurse Type: ED Notes Filed: 05/28/2023 7:08 PM Note Text: Report to Whit OLEARY Normal [facility] ED NOTE Normal [facility] ED NOTE Normal [facility] ED NOTE HNO ID: [id number] Author: Sam Andre RN Service: ? Author Type: Registered Nurse Type: ED Notes Filed: 05/28/2023 3:59 PM Note Text: Bed: E12-17 Expected date: 05/28/23 Expected time: Means of arrival: Comments: Normal [facility] ED PROV NOTEon 05-28-2023 ED PROV NOTE Normal [facility] HISTORY PHYSICALon HISTORY PHYSICAL Normal [facility] PATH INTERP CBCDIF (LAB REFL EX ORDER-NO BILL)on 05-28-2023 Retail Performance Coach review Pino (Unsp spec) [Interp] Reviewed by Vikki Griffin M.D., Ph.D Normal [facility] Comment on above: Order Comment: Speci men Type: BLOOD SPECIMENOrdering Facility: [facility] Address: [address] [place] [address] Performed By: #### 5 7021-8, [id number] ####[facility] LABCLIA [id number] [place] [address] [place] STAFF REVIEW, CBCDIF Normal [facility] Comment on above: Order Comment: Speci men Type: BLOOD SPECIMENOrdering Facility: [facility] Address: [address] [place] [address] Result Comment: Macr ocytic anemia without hypersegmented PMNsLeukopenia with absolute neutropeniaThrombocytopeniaCirculating blasts, consistent with patient's known history diagnosis of AML. Performed By: #### 5 7021-8, [id number] ####[facility] LABCLIA [id number] [place] [address] [place] Lab Reportson 05-23-2023 Lab Reports [id number]#1.00CD:127 Normal [facility] Lab Reportson 05-22-2023 Lab Reports [id number]#1.00CD:127 Normal [facility] Operative Reporton Operative Report [id number]#1.00CD:127 Normal [facility] Outside Hospital Correspo ndenceon 05-22-2023 Outside [facility] Correspondence [id number]#1.00CD:127 Normal [facility] Physician Referralon 023 Physician Referral [id number]#1.00CD:127 Normal [facility] Surgical Pathologyon 023 Surgical Pathology (NOTE) -- Diagnosis -- LIPOMA, LEFT ARM, EXCISION:-LIPOMA. Marniejacek Joseph Electronically Signed Out 12/26/2022 Clinical Information Pre-op Diagnosis: LARGE LIPOMA Operative Findings: INNER LEFT ARM Operation Performed: EXCISION tm Source of Specimen A: LIPOMA LARGE LEFT ARM Gross Description PRINCESS WILKES, LIPOMA LARGE LEFT ARM 5.8 x 4.5 x 3.8 cm circumscribed portion of fatty tissue with a few small areas of possible hemorrhage. There is no necrosis. Crop Pest Control Specialist sections 1cs. tm Microscopic Description Microscopic examination performed. SURGICAL PATHOLOGY CONSULTATION Patient Name: PRINCESS WILKES [facility] Rec: [id number] Path Number: [id number] [facility] [employer] CONSULTING PATHOLOGISTS [facility] PATHOLOGY [address] [place] [phone] [facility] Comment on above: Performed By: #### P PPVS #### [facility] [address] [id number] Resistor Winder: Nghia Casas MD VL Extremity Venous Duplex [facility] 06-14-2021 VL Extremity Venous Duplex Lower Left Preliminary Technologist Report Right comparison appeared normal Left lower extremity: There appeared to be no evidence of acute or chronic DVT, all vessels appeared compressible and patent. Results called to Deanna in [place] office at 4:00pm Center Customer Service Associate: Beau Rocha RVT Radiologist Report CLINICAL HISTORY: Left lower [...] Electronically Signed in Other Vendor System) Normal [facility] Vital Signs Date Time Vital Sign Value Performing Clinician Facility 06-25-2023 11:29-0400 Body temperature 97.7 [degF] Mike Hughes MD Work Phone: [facility] 06-25-2023 11:29-0400 Body weight 116.1 kg Miek Hughes MD Work Phone: [facility] 06-25-2023 11:29-0400 Diastolic blood pressure 54 mm[Hg] Mike Hughes MD Work Phone: [facility] 06-25-2023 11:29-0400 Heart rate 77 /min Mike Hughes MD Work Phone: [facility] 06-25-2023 11:29-0400 Respiratory rate 18 /min Mike Hughes MD Work Phone: [facility] 06-25-2023 11:29-0400 Systolic blood pressure 134 mm[Hg] Mike Hughes MD Work Phone: [facility] 06-25-2023 10:00-0400 Diastolic blood pressure 80 mm[Hg] Lj Liz MD Work Phone: [facility] 06-25-2023 10:00-0400 Heart rate 71 /min Lj Liz MD Work Phone: [facility] 06-25-2023 10:00-0400 Respiratory rate 16 /min Lj Liz MD Work Phone: [facility] 06-25-2023 10:00-0400 SaO2% (BldA) [Mass fraction] 97 % Lj Liz MD Work Phone: [facility] 06-25-2023 10:00-0400 Systolic blood pressure 153 mm[Hg] Lj Liz MD Work Phone: [facility] 06-25-2023 06:40-0400 Body temperature 97.7 [degF] jL Liz MD Work Phone: [facility] 12-22-2022 15:00-0400 Diastolic blood pressure 88 mm[Hg] Martha Nazemi DO Work Phone: [employer] 12-22-2022 15:00-0400 Heart rate 62 /min Martha Nazemi DO Work Phone: [employer] 12-22-2022 15:00-0400 Respiratory rate 16 /min Martha Nazemi DO Work Phone: [employer] 12-22-2022 15:00-0400 SaO2% (BldA) [Mass fraction] 96 % Martha Nazemi DO Work Phone: [employer] 12-22-2022 15:00-0400 Systolic blood pressure 129 mm[Hg] Martha Nazemi DO Work Phone: [employer] 12-22-2022 14:32-0400 Body temperature 96.91 [degF] Martha Nazemi DO Work Phone: [employer] 12-22-2022 11:47-0400 Body height 166.4 cm Martha Nazemi DO Work Phone: [employer] 12-22-2022 11:47-0400 Body mass index (BMI) [Ratio] 43.43 kg/m2 Martha Nazemi DO Work Phone: [employer] 12-22-2022 11:47-0400 Body weight 120.2 kg Martha Nazemi DO Work Phone: [facility] Encounters Encounter Date Encounter Type Care Provider Facility Start: 09-20-2023 ambulatory MIKE HUGHES Facil ity:[facility] Start: 09-07-2023 End: 09-08-2023 ambulatory MIKE HUGHES Facility:[facility] Start: 09-06-2023 End: 09-06-2023 ambulatory MELISSA PIERCE Not Available Start: 08-31-2023 End: 09-01-2023 ambulatory MIKE HUGHES Facility:[facility] Start: 08-30-2023 End: 08-30-2023 ambulatory MELISSA PIERCE Facility:[facility] Start: 08-30-2023 End: 08-30-2023 ambulatory CHARLENE MARTINEZ Facility:[facility] Start: 08-15-2023 Social Work Britany DRAKE W Work Phone: Hematology/Oncology Start: 08-13-2023 Telephone encounter Georgina armas RN Work Phone: Hematology/Oncology Comment on above: Appointment Start: 08-09-2023 Refill Mike valencia MD Work Phone: Hematology/Oncology Comment on above: Refill Request Consent Presentation (IRB [phone] [id number]) Start: 08-08-2023 Telephone encounter Georgina armas RN Work Phone: Hematology/Oncology Comment on above: Patient Education (T ransplant) (BMT Planning) 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) Start: 08-07-2023 Refill Mike valencia MD Work Phone: Hematology/Oncology Comment on above: Refill Request Transplant Info Biopsy Request Start: 07-30-2023 End: 07-30-2023 ambulatory MIKE HUGHES Facility:[facility] Start: 07-30-2023 End: 07-30-2023 Follow-up encounter Mike Hughes MD Work Phone: Hematology/Oncology Comment on above: 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); Immunocompromised (HCC); Hospital discharge follow-up; Pancytopenia (HCC); Colitis Start: 07-30-2023 End: 07-30-2023 Telemedicine consultation with patient Mike Hughes MD Work Phone: [facility] Start: 07-18-2023 End: 07-18-2023 Evaluation and management of inpatient MELISSA PIERCE Facility:[facility] Start: 07-13-2023 End: 07-18-2023 Evaluation and management of inpatient ABDI CONTEH Facility:[facility] Start: 07-06-2023 Telephone encounter Aurelia valerio RN Work Phone: Hematology/Oncology Start: 07-02-2023 End: 07-02-2023 ambulatory MIKE HUGHES Facility:[facility] Start: 07-02-2023 End: 07-02-2023 ambulatory Mike Hughes MD Work Phone: Hematology/Oncology Comment on above: 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); Immunocompromised (HCC); Pancytopenia (HCC) Start: 07-02-2023 End: 07-02-2023 Telemedicine consultation with patient Mike Hughes MD Work Phone: [facility] Start: 06-27-2023 Orders Only Mike valencia MD Work Phone: Hematology/Oncology Comment on above: 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) Start: 06-25-2023 End: 06-25-2023 Patient encounter procedure Mike Hughes MD Work Phone: [facility] Start: 06-25-2023 End: 06-25-2023 ambulatory Mike [...] (HCC) [C92.00] Start: 06-22-2023 Telephone encounter Agustina Sae MS W Hematology/Oncology Comment on above: Patient Question Start: 06-14-2023 End: 06-14-2023 ambulatory MIKE HUGHES Facility:[facility] Start: 06-14-2023 Telephone encounter Mary ramachandran [facility] Work Phone: [facility] Comment on above: Biopsy Request Start: 05-31-2023 Telephone encounter Chika Lagos Hem atology/Oncology Start: 05-28-2023 End: 06-07-2023 Evaluation and management of inpatient MELISSA PIRECE Facility:[facility] Start: 05-28-2023 End: 05-29-2023 ambulatory Brianna Pham MD Work Phone: Hematology/Oncology Comment on above: 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); Infection due to Port-A-Cath, initial encounter Start: 05-28-2023 End: 05-28-2023 Patient encounter procedure Brianna Pham MD Work Phone: [facility] Start: 05-28-2023 End: 05-28-2023 Nursing evaluation of patient and report Aurelia Hines RN Work Phone: Hematology/Oncology Comment on above: 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) Start: 05-22-2023 ambulatory Facility:[facility] Start: 05-18-2023 ambulatory Facility:[facility] Start: 12-22-2022 End: 12-22-2022 ambulatory MARTHA MALIK [facility] Start: 12-22-2022 End: 12-22-2022 Subsequent hospital visit by physician Martha Malik DO Work Phone: [facility] Comment on above: Acute postoperative pain (Primary Dx); Lipoma of left forearm Start: 08-11-2021 End: 08-11-[address] MELISSA PIERCE Facility: Start: 06-14-2021 End: 06-15-2021 ambulatory MELISSA PIERCE Facility:[facility] Procedures Date Procedure Procedure Detail Performing Clinician Start: 07-13-2023 Antibody screen MIKE HUGHES Comment on above: Order Comment: Speci men Type: BLOOD SPECIMENOrdering Facility: [facility] Address: [address] [place] [address] Performed By: #### T SCR ####[facility] BLOOD BANKCLIA [id number] [address] Start: 06-25-2023 FLOW CYTOMETRY FOR LEUKEMIA/LYMPHOMA (FCLL) PERFORMABLE Mike Hughes MD Work Phone: Start: 06-06-2023 Antibody screen MIKE HUGHES Comment on above: Order Comment: Speci men Type: BLOOD SPECIMENOrdering Facility: [facility] Address: [address] [place] [address] Performed By: #### T SCR ####CC [facility] BLOOD BANKCLIA [id number] [address] [place] Start: 06-03-2023 Antibody screen MIKE HUGHES Comment on above: Order Comment: Speci men Type: BLOOD SPECIMENOrdering Facility: [facility] Address: [address] [place] [address] Performed By: #### T SCR, [facility], [id number] ####CC MAIN BLOOD BANKCLIA [id number] [address] [place]#### [id number] ####[facility] LABCLIA [id number] [address] [place] Start: 05-31-2023 Antibody screen MIKE HUGHES Comment on above: Order Comment: Speci men Type: BLOOD SPECIMENOrdering Facility: [facility] Address: [address] [place] [address] Performed By: #### T SCR ####[facility] BLOOD BANKCLIA [id number] [address] Start: 05-29-2023 Antibody screen MIKE HUGHES Comment on above: Order Comment: Speci men Type: BLOOD SPECIMENOrdering Facility: [facility] Address: [address] [place] [address] Performed By: #### T SCR ####CC [facility]IN BLOOD BANKCLIA [id number] [address] Start: 05-02-2023 Lipid 1996 panel - S efra or Plasma Aurelia Hines RN Work Phone: Plan of Treatment Date Care Activity Detail Author Start: 05-22-2033 Urine microalbumin profile DTaP,Tdap,Td Vaccine (2 - Td or Tdap) [facility] Start: 05-02-2028 Lipid 1996 panel - S efra or Plasma Lipid Screening [facility] Start: 05-02-2028 Lipid panel Lipid Screening [facility] Start: 07-18-2026 Diabetes Screening [facility] Start: 06-07-2026 [facility]: 05-31[facility]2026 [facility] Start: 05-28-2026 [facility] Start: 11-22-2023 Mammography Mammogram Screening [facility] Start: 11-22-2023 Screening for malign ant neoplasm of breast Mammogram Screening [facility] Start: 08-28-2023 End: 11-27-2023 ACUTE LEUKEMIA NGS PANEL, BONE MARROW ACUTE LEUKEMIA NGS PANEL, BONE MARROW Lab Routine 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) Expected: 08/28/2023, Expires: 11/27/2023 [facility] Work Phone: Comment on above: Expected: 08/28/2023 , Expires: 11/27/2023 Start: 08-28-2023 End: 11-27-2023 BONE MARROW ANALYSIS BONE MARROW ANALYSIS Lab Routine 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) Expected: 08/28/2023, Expires: 11/27/2023 [facility] Work Phone: Comment on above: Expected: 08/28/2023 , Expires: 11/27/2023 Start: 08-28-2023 End: 11-27-2023 CBC W Auto Differential panel - Blood CBC + DIFF Lab Routine 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) Expected: 08/28/2023, Expires: 11/27/2023 [facility] Work Phone: Comment on above: Expected: 08/28/2023 , Expires: 11/27/2023 Start: 04-03-2023 Influenza vaccination Flu vacc ine (Season Ended) [facility] Start: 01-03-2023 End: 01-03-2023 Patient encounter procedure 01/03/2023 Office Visit General Surgery Martha Malik DO [address] [place] [address] [place] [phone] [facility] SUR[facility]ERY Part of [facility] Start: 12-22-2022 End: 12-22-2022 Exc b9 lesion mrgn xcp sk tg t/a/l 0.5 cm/< ARM LESION BIOPSY EXCISION Lipoma of left forearm 12/22/2022 1:52 PM EDT [facility] Start: 11-17-2022 Annual Wellness Visi t (AWV) Annual Wellness Visit (AWV) [facility] Start: 09-03-2022 Advance Directive Discussion Advance Directive Discussion [facility] Start: 01-13-2021 COVID-19 Vaccine (3 - Booster for Pfizer series) COVID-19 Vaccine (3 - Booster for Pfizer series) [facility] Start: 12-16-2020 Covid-19 Vaccine (3 - Pfizer risk series) Covid-19 Vaccine (3 - Pfizer risk series) [facility] Start: 2018 Bone Density Screening Bone Density Screening [facility] Start: 2018 Screening for osteoporosis Bone Density Screening [facility] Start: 05-22-2016 Shingles vaccine (2 of 3) Shingles vaccine (2 of 3) [facility] Start: 05-22-2016 Shingrix Vaccine (1 of 2) Shingrix Vaccine (1 of 2) [facility] Start: 2013 RSV Vaccine (1 - 1-d ose 60+ series) RSV Vaccine (1 - 1-dose 60+ series) [facility] Start: 2008 Screening for osteoporosis DEXA (modify frequency per FRAX score) [facility] Start: 2003 Screening for malign ant neoplasm of breast Breast cancer screen [facility] Start: 1998 Cologuard (FIT-DNA) Cologuard (FIT-D NA) [facility] Start: 1998 Colonoscopy Colonoscopy [facility] Start: 1998 Colorectal Cancer Screening Colorectal Cancer Screening [facility] Start: [address] COLONOGRAPHY [facility] Start: 1998 Fecal Occult Blood Fecal Occult Bloo d [facility] Start: 1998 Screening for malign ant neoplasm of colon [facility] Start: 1998 SIGMOIDOSCOPY SIGMOIDOSCOPY [facility] Start: 1993 Lipid panel Lipids [facility] Start: 1988 Diabetes screen Diabetes screen [facility] Start: 1972 DTaP/Tdap/Td vaccine (1 - Tdap) DTaP/Tdap/Td vaccine (1 - Tdap) [facility] Start: 1971 Hepatitis C screening Hepatitis C sc reen [facility] Start: 1965 Depression Screen Depression Screen [facility] AML MRD BY FC AML MRD BY FC La b Routine 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) 06/25/2023 8:27 AM [facility] Work Phone: BONE MARROW ANALYSIS BONE MARROW ANALYSIS Lab Routine 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) 06/25/2023 8:55 AM [facility] Work Phone: BONE MARROW CHROMOSO ME ANAL BONE MARROW CHROMOSOME ANAL Lab Routine 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) 06/25/2023 8:27 AM [facility] Work Phone: Diagnostic bone jaylon ow biopsies IMAGING GUIDED BIOPSY BONE MARROW (HEMATOLOGY) Radiology Routine 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) Ordered: 08/08/2023 [facility] Work Phone: Comment on above: Ordered: 08/08/2023 DNA EXTRACTION BONE MARROW (BUFFY COAT) DNA EXTRACTION BONE MARROW (BUFFY COAT) Lab Routine 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) 06/25/2023 8:27 AM EDT [facility] Work Phone: FLT3 ITD HN BONE MARROW FLT3 ITD HN BONE MARROW Lab Routine 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) 06/25/2023 8:27 AM EDT [facility] Work Phone: MYELOID NGS PANEL ZEENAT NE MARROW MYELOID NGS PANEL BONE MARROW Lab Routine 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) 06/25/2023 8:27 AM T [facility] Work Phone: Surgical Pathology Surgical Path ology Lab Routine Lipoma of left forearm Release Upon Ordering for 1 Occurrences starting 12/22/2022 [facility] Work Phone: Comment on above: Release Upon Orderin g for 1 Occurrences starting 12/22/2022 [facility] ANGIO HB6 [facility] Immunizations Immunization Date Immunization Notes Care Provider [facility] 05-22-2023 influenza (HD-IIV4) vaccine, age 65+ yr, high dose, quadrivalent, PF (FLUZONE HIGH-DOSE) Aurelia Hines RN Work Phone: [facility] 05-22-2023 tetanus toxoid, redu armaan diphtheria toxoid, and acellular pertussis vaccine, adsorbed Aurelia Hines RN Work Phone: [facility] 08-04-2019 pneumococcal polysaccharide vaccine, 23 valent Aurelia Hines RN Work Phone: [facility] 06-17-2018 influenza, injectabl e, quadrivalent, preservative free Aurelia Hines RN Work Phone: [facility] 06-17-2018 pneumococcal conjuga te vaccine, 13 valent Aurelia Hines RN Work Phone: [facility] 06-03-2017 influenza, injectabl e, quadrivalent, preservative free Aurelia Hines RN Work Phone: [facility] 07-17-2016 influenza, injectabl e, quadrivalent, preservative free Aurelia Hines RN Work Phone: [facility] 06-03-2016 seasonal influenza, intradermal, preservative free Aurelia Hiens RN Work Phone: [facility] 03-27-2016 zoster vaccine, live Aurelia moser RN Work Phone: [facility] Payers Date Payer Category Payer Private Health Insurance [employer] A ETNA MEDICARE SUPPLEMENT [id number] 2023-Present [phone] [address] [address] [place] [address] Indemnity [id number] 2023 Private Health Insurance CLI [id number] 2021 Unknown 2018 Medicare 1961 Medicare [id number] 1959 Unknown [id number] 1953 Unknown [id number] 1953 Unknown [id number] 1955 Unknown [id number] 1953 Unknown [id number] Social History Date Type Detail Facility Start: 12-07-[address] [facility] Tobacco smoking consumption unknown [facility] Start: 09-04-2013 End: 12-07-2022 Tobacco use and exposure Smokeless tobacco non-user [facility] Phone: Start: 12-22-2022 End: 07-16-2023 Alcohol intake Current drinker of alcohol (finding) [facility] [employer] Phone: Start: 12-22-2022 End: 05-28-2023 Alcohol intake [facility] Start: 1955 Sex Assigned At Not on file B ON [employer] Phone: Start: 12-12-2022 End: 12-22-2022 Exposure to SARS-CoV-2 (event) Not sure [employer] Start: 09-04-[address] [facility] Never smoked tobacco [facility] Start: 05-28-2023 End: 06-11-2023 Tobacco use panel [facility] Adult Depression Screening Assessment 0 [facility] Start: 09-04-2013 Alcohol Comment social [facility] Start: 1955 Sex Assigned At Female [facility] Start: 05-22-2023 Gender identity Identifies as female gender (finding) [facility] Clinical Notes 09-11-2013 to 09-20-2023 Britany Lozada LSW - 08/15/2023 1:38 PM ESTTelephone Encounter - Amrita Pelaez - 08/14/2023 8:56 AM ESTTelephone Encounter - Robinson Benito MD - 08/08/2023 5:09 PM EST Note Date & Type Note Facility 09-20-2023 Note [facility] 09-13-2023 Note [facility] 09-07-2023 Note [facility] 08-31-2023 Note [facility] 08-30-2023 Note [facility] 08-30-2023 Note [facility] 08-15-2023 Note [facility] 08-15-2023 History of Present illness Narrative SOCIAL [...] and . Both stated they stayed at [facility] in the past and needed to stay for the visit in August (message sent to product support manager regarding same). stated a referral has been sent to [facility] for the September stay. Mickie will meet with the BMT high school social studies tutor at the August visit. Therefore, message sent to her regarding above. Provided support and encouragement. FREDRICK Morgan documented in this encounter [facility] 08-14-2023 Miscellaneous Notes Spoke to pt and [...] this procedure: low risk. Reference from [facility] Physics Instructor: [email or web address]://[facility].policytech.com/dotNet/ [email or web address] STAFF SIGNATURE: Robinson Benito MD DATE: August [...] CONTACT INFORMATION: Best way to reach patient [phone]. SCHEDULING: Date: 08/28/23 (Specific requests must be [...] random biopsies do not need imaging.) IMAGING: [facility] (If the imaging was obtained outside the [facility] system, PLEASE upload for review prior to approval.) Note to all persons requesting biopsies: All biopsy requests will be scheduled as quickly as possible, based on the clinical urgency, availability of appointment times, the need to hold anti-thrombolytic therapy (aspirin and other blood thinners) and the patient s schedule, including the need for an available transportation driver. If a percutaneous biopsy or drainage is not felt to be safe or an alternative method for establishing a diagnosis is possible, this will be discussed directly with the requesting physician. documented in this encounter [facility] 08-13-2023 Miscellaneous Notes Princess's , De, called to clarify lab needed the week of 09/04/2023. He is aware the lab will be scheduled on the same day Princess paula's Dr. Pham. Also informed De that per BMT BOAT WASHER, Princess's bone density done in October 2021 will be her baseline prior to BMT. De confirmed Princess has received and been reading through the [facility] BMT study consent, and they do not have questions at this time. He verbalized understanding of all the above and is aware to call with questions or concerns. Georgina Kumar RN documented in this encounter [facility] 08-09-2023 Miscellaneous Notes Pt's copay to get posaconazole through [facility] is $4k. Previously it was sent through [facility], will change script to [facility] instead. Estephanie Parada RN documented in this encounter [facility] 08-08-2023 Miscellaneous Notes [facility]O INITIAL TELEPHONE CONTACT Spoke with Princess Wilkes and her , De, on the telephone on 08/08/2023 at 10:10. Princess Wilkes informed that hard copy of education binder will be given to patient at pre-transplant evaluation and link to education binder provided to patient via YODIL secure patient message. Princess Wilkes is currently [...] reside within one hour driving distance from [facility] for at least 100 days post-transplant. Her De will be her primary caregiver and they might stay at [facility] post BMT. Female fertile? No Ovarian suppression [...] Georgina Kumar RN documented in this encounter [facility] 07-30-2023 Note [facility] 07-30-2023 History of Present illness Narrative Images from the original note were not included. This is a virtual visit using [employer] Video Visit. It required patient-provider interaction for the medical decision making as documented below. I have communicated my name and active licensure. The patient's identity and physical location were verified at the time of this visit. Either the patient or their legal employer relations representative has been informed of the risks and benefits of -- and alternatives to -- treatment through a remote evaluation and consents to proceed with the evaluation remotely. [facility] Department of Hematology and Medical Oncology Leukemia Program Princess Wilkes ID: [id number] 07/30/2023 PRIMARY CARE PHYSICIAN: Melissa Pierce MD [...] Complications: - Aza/Milton was initiated inpatient at [facility] main (admitted due to concern for port infection) - Diverticulitis - hospitalized 06/18/23 - treated with abx - discharged on 06/20/23 - platelet transfusions 06/13/23 and 06/26/23 - After C2 was admitted again for fever, abdominal infection, transferred to [facility] And was treated with Zosyn, [...] of fever and was admitted (transferred to [facility]) and treated with Zosyn. 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 Oncotype Dx 13 - so no chemo was offered. She then completed 5 years of endocrine therapy from 01/2014 - 01/2019 - letrozole followed by tamoxifen (x1 year). She presented to the ER on 05/03/23 at [facility] with generalized weakness, dizziness, exertional dyspnea for [...] 06/12/23 CBC - 0.9 0.09 9.3 10 [facility] [phone] Past MHx: PAST MEDICAL HISTORY Diagnosis Date [...] with VKA drugs, such as warfarin, the [place] [employer] 2012 Guideline recommends [...] to 3.5 (target INR of 3). Beltran CASTELLANOS, et al. Chest 2012, 141:7S-47S Margo RA, et al. [facility] 2017, 70: [phone] BONE MARROW ANALYSIS: [id number] Order: [id number] Collected 06/25/2023 8:55 AM Status: Final result [...] trilineage hematopoiesis with dysmegakaryopoiesis. - See comment. SB/ June 26, 2023 Diagnosis Comment The patient [...] Hernandez from the hematopathology section at the [facility], and he concurs with the above rendered final diagnosis and interpretation. Laboratory Developed Test (LDT) Disclaimer: Performance characteristics of immunohistochemical, immunofluorescent and chromogenic in-situ hybridization tests have been determined by the performing laboratory within [facility] Medicine [place] ([facility], [facility], [facility], [facility], [facility], [facility], or [facility]) in a manner consistent with CLIA requirements. [...] hemodilute touch imprint may not be entirely employer relations representative of the true marrow cellularity. Result [...] cassette. Performing Lab Diagnostic interpretation performed at [facility], [address] [place], [place] [id number] CLIA# [id number] Can Vacuum Tester: Boris Wood M.D. Assessment and Plan: Ms. Princess Wilkes is a 67 year old female with prior Stage 1 ([id number]) L breast invasive and DCIS, 1.5 cm, grade 2, ER/RI positive and HER2 negative s/p L lumpectomy [...] status # Prior Breast CA Stage 1 ([id number]) L breast invasive and DCIS, 1.5 cm, grade 2, ER/RI positive and HER2 negative s/p L lumpectomy [...] which included preparing to see the patient, [id number] patient care, completing clinical documentation, obtaining and/or reviewing separately obtained history, and performing a medically appropriate examination. Mike Hughes MD Hematology and Medical Oncology, Leukemia Division 06/25/23 cc: Mike Hughes [phone] [facility] [id number] Melissa Pierce MD [address] [facility] [id number] documented in this encounter [facility] 07-18-2023 Note [facility] 07-17-2023 Note [facility] 07-16-2023 Note [facility] 07-16-2023 Note [facility] 07-15-2023 Note [facility] 07-14-2023 Note [facility] 07-14-2023 History of Past i llness Narrative [...] Tylenol and d/c'd home > seen at [facility] on 05/28 by heme/onc and BMT who recommended admission for concerns for port infection > blood cxs x2 obtained -- NGTD > 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, 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; 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 > ID [...] of this encounter (statuses as of 07/30/2023) [facility] History of Past illness Narrative* Problem Noted [...] Tylenol and d/c'd home > seen at [facility] on 05/28 by heme/onc and BMT who recommended admission for concerns for port infection > blood cxs x2 obtained -- NGTD > 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, 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; 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 > ID [...] of this encounter (statuses as of 08/08/2023) [facility] History of Past illness Narrative* Problem Noted [...] Tylenol and d/c'd home > seen at [facility] on 05/28 by heme/onc and BMT who recommended admission for concerns for port infection > blood cxs x2 obtained -- NGTD > 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, 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; 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 > ID [...] of this encounter (statuses as of 08/08/2023) [facility] History of Past illness Narrative* Problem Noted [...] Tylenol and d/c'd home > seen at [facility] on 05/28 by heme/onc and BMT who recommended admission for concerns for port infection > blood cxs x2 obtained -- NGTD > 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, 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; 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 > ID [...] of this encounter (statuses as of 08/08/2023) [facility] History of Past illness Narrative* Problem Noted [...] Tylenol and d/c'd home > seen at [facility] on 05/28 by heme/onc and BMT who recommended admission for concerns for port infection > blood cxs x2 obtained -- NGTD > 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, 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; 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 > ID [...] of this encounter (statuses as of 08/09/2023) [facility] History of Past illness Narrative* Problem Noted [...] Tylenol and d/c'd home > seen at [facility] on 05/28 by heme/onc and BMT who recommended admission for concerns for port infection > blood cxs x2 obtained -- NGTD > 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, 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; 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 > ID [...] of this encounter (statuses as of 08/09/2023) [facility] History of Past illness Narrative* Problem Noted [...] Tylenol and d/c'd home > seen at [facility] on 05/28 by heme/onc and BMT who recommended admission for concerns for port infection > blood cxs x2 obtained -- NGTD > 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, 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; 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 > ID [...] of this encounter (statuses as of 08/10/2023) [facility] History of Past illness Narrative* Problem Noted [...] Tylenol and d/c'd home > seen at [facility] on 05/28 by heme/onc and BMT who recommended admission for concerns for port infection > blood cxs x2 obtained -- NGTD > 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, 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; 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 > ID [...] of this encounter (statuses as of 08/10/2023) [facility] History of Past illness Narrative* Problem Noted [...] Tylenol and d/c'd home > seen at [facility] on 05/28 by heme/onc and BMT who recommended admission for concerns for port infection > blood cxs x2 obtained -- NGTD > 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, 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; 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 > ID [...] of this encounter (statuses as of 08/13/2023) [facility] History of Past illness Narrative* Problem Noted [...] Tylenol and d/c'd home > seen at [facility] on 05/28 by heme/onc and BMT who recommended admission for concerns for port infection > blood cxs x2 obtained -- NGTD > 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, 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; 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 > ID [...] of this encounter (statuses as of 08/14/2023) [facility] History of Past illness Narrative* Problem Noted [...] Tylenol and d/c'd home > seen at [facility] on 05/28 by heme/onc and BMT who recommended admission for concerns for port infection > blood cxs x2 obtained -- NGTD > 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, 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; 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 > ID [...] of this encounter (statuses as of 08/16/2023) [facility] Miscellaneous Notes* Telephone Encounter - Aurelia Hines [...] WILKES Donor Name: PIERRE FERRARI Donor ID: [id number] Relationship: Sibling Report Status: Final Patient HLA Specimen Date: 05/29/2023 DNA ID: [id number] Patient HLA Typing: HLA-A* 02:01 , 68:02 HLA-B* 14:02 , 15:01 HLA-C* 03:04 , 08:02 HLA-DRB1* 01:01 , 13:03 HLA-DRB3* 01:01 , - HLA-DRB4* - , - HLA-DRB5* - , - HLA-DQA1* 01:01 , 05:05 HLA-DQB1* 03:01 , 05:01 HLA-DPA1* 01:03 , - HLA-DPB1* 02:/416:01 , 04:02/105:01 COMMENTS: none Donor HLA Specimen Date: 06/19/2023 DNA ID: [id number] Donor HLA Typing: HLA-A* 02:01 , 68:02 HLA-B* 14:02 , 15:01 HLA-C* 03:04 , 08:02 HLA-DRB1* 01:01 , 13:03 HLA-DRB3* 01:01 , - HLA-DRB4* - , - HLA-DRB5* - , - HLA-DQA1* 01:01 , 05:05 HLA-DQB1* 03:01 , 05:01 HLA-DPA1* 01:03 , - HLA-DPB1* 02:/416:01 , 04:/105:01 COMMENTS: none NOT RULED OUT: A*02:614; A*68:278 [...] 06/27/2023 Aurelia Hines RN [facility] History of Present illness Narrative* Mike Hughes MD - 07/02/2023 8:49 AM EDT Images from the original note were not included. This is a virtual visit using [employer] Zoom Video Visit. It required patient- provider interaction for the medical decision making as documented below. I have communicated my name and active licensure. The patient's identity and physical location wereverified at the time of this visit. Either the patient or their legal employer relations representative has been informed of the risks and benefits of -- and alternatives to -- treatment through a remote evaluation andconsents to proceed with the evaluation remotely. 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 Macdonald. History Of Present Illness: Ms. Princess Wilkes is a 67 year old female with prior Stage 1 ([id number]) L breast invasive and DCIS,1.5 cm, grade 2, ER/RI positive and HER2 negative s/p L lumpectomy Sep 2013 followed by adjuvant RTto L breast completed 01/06/14. Oncotype Dx 13 - so no chemo was offered. She then completed 5 years of endocrine therapy from 01/2014 - 01/2019 - letrozole followed by tamoxifen (x1 year). She presented to the ER on 05/03/23 at [facility] with generalized weakness, dizziness, exertional dyspnea for [...] 06/12/23 CBC - 0.9 0.09 9.3 10 [facility] [phone] Past MHx: PAST MEDICAL HISTORY Diagnosis Date [...] with VKA drugs, such as warfarin, the [place] [employer] 2012 Guideline recommends [...] Chest 2012, 141:7S-47S Margo RA, et al. [facility] [facility], 70: [phone] BONE MARROW ANALYSIS: [id number] Order: [id number] Collected 06/25/2023 8:55 AM Status: Final result [...] trilineage hematopoiesis with dysmegakaryopoiesis. - See comment. SB/ June 26, 2023 Diagnosis Comment The patient [...] Hernandez from the hematopathology section at the [facility], and he concurs with the above rendered final diagnosis and interpretation. Laboratory Developed Test (LDT) Disclaimer: Performance characteristics of immunohistochemical, immunofluorescent and chromogenic in-situ hybridization tests have been determined by the performing laboratory within [facility] s [facility] Pathology and Laboratory Medicine [place] ([facility], [facility], [facility], [facility], [facility], [facility], or [facility]) in a manner consistent with CLIA requirements. [...] hemodilute touch imprint may not be entirely employer relations representative of the true marrow cellularity. Result [...] cassette. Performing Lab Diagnostic interpretation performed at [facility], [facility] [address]# [id number] Can Vacuum Tester: Boris Wood M.D. Assessment and Plan: Ms. Princess Wilkes is a 67 year old female with prior Stage 1 ([id number]) L breast invasive and DCIS,1.5 cm, grade 2, ER/RI positive and HER2 negative s/p L lumpectomy [...] needed # Prior Breast CA Stage 1 ([id number]) L breast invasive and DCIS, 1.5 cm, grade 2, ER/RI positive and HER2 negative s/p L lumpectomy [...] which included preparing to see the patient, [id number] patient care, completing clinical documentation, obtaining and/or reviewing separately obtained history, and performing a medically appropriate examination. Mike Hughes MD Hematology and Medical Oncology, Leukemia Division 06/25/23 cc: Mike Hughes [id number] [facility] [id number] Melissa Pierce MD [address] [facility] [id number] documented in this encounterThe Metrohealth System10-23-2023 NoteBrecksville [facility]10-23-2023 Nurse Note* Charlene Ruiz LPN - 06/25/2023 11:28 AM EDT Additional intake questions: Has the patient had fever, nausea, vomiting, diarrhea, constipation, fatigue for > 1 week? Yes, vomiting Does the patient have a decreased appetite? No Does patient want to see a Corporate Communications Specialist? No (yes to any of above refer patient to schedulers for dietitian appointment) ) Does patient have any new or increased numbness or tingling of extremities? No Is patient interested in fertility information? NA Does patient need any prescription refills? No Does patient have an advanced directive in place? Yes, no copy found in [facility] Patient referred to Social Work and Patient referred to Resource Center documented in this encounterThe Metrohealth System10-23-2023 NoteBrecksville [facility]10-23-2023 Surgical operation note* Brief Op Note - Robinson Benito MD - 06/25/2023 9:06 AM EDT BRIEF OPERATIVE / PROCEDURE NOTE LOG ID: [id number] SURGERY/PROCEDURE DATE: 06/25/2023 INCISION/PROCEDURE START TIME: 8:40 AM INCISION CLOSE/PROCEDURE END TIME: 8:59 AM SURGEON(S)/PROCEDURALIST(S) AND JUNIOR MARKETING ASSOCIATE(S): Surgeon(s) and Role: * Lj Liz MD [...] 2023 TIME: 9:06 AM documented in this encounterThe Metrohealth System10-23-2023 History of Present illness Narrative* Marry Modi RT(R) - 06/25/2023 8:33 AM EDT Radiology [...] 25, 2023 8:33 AM documented in this encounterThe Metrohealth System10-23-2023 Miscellaneous Notes* Patient Education - Carmen Agudelo [...] Department: HOSP MAIN [id number] documented in this encounterThe Metrohealth System10-23-2023 History and physical note * Robinson Benito [...] TIME: 8:01 AM PAGER: documented in this encounterThe Metrohealth System10-23-2023 History of Present illness Narrative* Mike Hughes MD - 06/25/2023 12:00 AM EDT Images from the original note were not included. 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 Macdonald. History Of Present Illness: Ms. Princess Wilkes is a 67 year old female with prior Stage 1 (tL3rE2P8) L breast invasive and DCIS,1.5 cm, grade 2, ER/RI positive and HER2 negative s/p L lumpectomy Sep 2013 followed by adjuvant RTto L breast completed 01/06/14. Oncotype Dx 13 - so no chemo was offered. She then completed 5 years of endocrine therapy from 01/2014 - 01/2019 - letrozole followed by tamoxifen (x1 year). She presented to the ER on 05/03/23 at [facility] with generalized weakness, dizziness, exertional dyspnea for [...] 06/12/23 CBC - 0.9 0.09 9.3 10 [facility] [phone] Past MHx: PAST MEDICAL HISTORY Diagnosis Date [...] with VKA drugs, such as warfarin, the [place] [employer] 2012 Guideline recommends [...] Chest 2012, 141:7S-47S Margo RA, et al. [facility] 2017, 70: [phone] Assessment and Plan: Ms. Princess Wilkes is a 67 year old female with prior Stage 1 (oE3wE6E1) L breast invasive and DCIS,1.5 cm, grade 2, ER/RI positive and HER2 negative s/p L lumpectomy [...] needed # Prior Breast CA Stage 1 (sG9bX3W7) L breast invasive and DCIS, 1.5 cm, grade 2, ER/RI positive and HER2 negative s/p L lumpectomy [...] which included preparing to see the patient, [id number] patient care, completing clinical documentation, obtaining and/or reviewing separately obtained history, and performing a medically appropriate examination. Mike Hughes MD Hematology and Medical Oncology, Leukemia Division 06/25/23 cc: Mike Hughes [address] [id number] Melissa Pierce MD [address] [place] [phone] documented in this encounterThe Metrohealth System10-20-2023 Miscellaneous Notes* Telephone Encounter - Agustina Quevedo MSW - 06/22/2023 2:17 PM EDT SW returned phone call from patient's spouse, De, regarding difficulties they were having using patient's LLS copay assistance card. SW learned that patient [...] for future assistance with claims. Spouse thanked SW for her assistance. documented in this encounterThe Metrohealth System10-18-2023 Nurse Note* Edel Hobbs LPN - 06/20/2023 11:11 AM EDT Pre- e instructions: Contacted patient and confirmed appt. for bone marrow biopsy scheduled on 06/25/23, at [facility]. Diet: Do not eat solid food after [...] signed. Arrival at 6:30am to desk QB-1 ([facility]) and check in for your procedure. Dye Range Tender/Transportation: How will you be arriving for your procedure? Private car. If you will be arriving at [facility] via ambulance or public transportation, please call to discuss. You will need a responsible adult to accompany you to and from the procedure. Your transportation driver is required to stay with you until you are taken into the Procedure room. Recovery expectations: You can expect to be at the hospital for the majority of the day. Please do not schedule any other appointments the day of your procedure. Written instructions provided to patient via [employer] If you have any questions please call [phone] documented in this encounterThe Metrohealth System10-17-2023 Miscellaneous Notes* Telephone Encounter - Amrita Pelaez - 06/19/2023 4:00 PM EDT Spoke to pt and scheduled biopsy for 06/25/23. * Telephone Encounter - Gurmeet Webb MD, PhD - 06/15/2023 5:00 PM EDT RADIOLOGIST REQUEST / APPROVAL FORM STAFF RADIOLOGIST: Subhas PROCEDURE TO BE DONE UNDER: CT PROCEDURE REQUESTED: CORE Requested PROCEDURE: Approved TIME SLOT NEEDED: 1 Hour NOTES: Platelet count 9 on most recent labs FYI SPECIAL LABS/ PROCESSING: N/A Pre-procedure labs: CBC: not needed INR: not needed COVID: not needed SIR Bleeding risk category for this procedure: low risk. Reference from [facility] Physics Instructor: [email or web address] STAFF SIGNATURE: Gurmeet Webb MD DATE: June [...] PATIENT CONTACT INFORMATION: Best way to reach [phone] SCHEDULING: Date: 06/25/2023 patient is scheduled for a standard marrow this day but required CT guided last time. Please call Estephanie RN at [phone] if any questions. (Specific requests must be [...] random biopsies do not need imaging.) IMAGING: [facility] (If the imaging was obtained outside the [facility] system, PLEASE upload for review prior to approval.) Note to all persons requesting biopsies: All biopsy requests will be scheduled as quickly as possible, based on the clinical urgency, availability of appointment times, the need to hold anti-thrombolytic therapy (aspirin and other blood thinners) and the patient s schedule, including the need for an available transportation driver. If a percutaneous biopsy or drainage is not felt to be safe or an alternative method for establishing a diagnosis is possible, this will be discussed directly with the requesting physician. documented in this encounterThe Metrohealth System10-14-2023 NoteHNO ID: [id number] Author: Note, Interface Service: ? Author Type: ? Type: Progress Notes Filed: 2023 2:15 AM Note Text: Epic Scheduled Downtime: 2023 1:00:00 AM to 2023 1:28:00 [facility]10-12-2023 NoteBrecksville [facility]10-12-2023 Miscellaneous Notes* Telephone Encounter - Mary Ohara LGC - 06/14/2023 1:24 PM EDT I left a voicemail for the patient including my contact information requesting that she return my call to discuss options for scheduling a genetic counseling visit. Mary Ohara MS, [facility], PhD Licensed, Certified Genetic Counselor documented in this encounterThe [facility]health System10-05-2023 NoteBrecksville [facility]10-04-2023 NoteBrecksville [facility]10-03-2023 NoteBrecksville [facility]10-03-2023 NoteBrec[facility]10-02-2023 Note [facility]10-02-2023 NoteBrecksville [facility]10-01-2023 NoteBrecksville [facility]09-30-2023 NoteBrecksville [facility] 06-01-2023 NoteBrecksville [facility]09-29-2023 NoteBrec[facility]ville [facility]09-29-2023 NoteBrecksville [facility]09-29-2023 NoteBrecks[facility]09-28-2023 Miscellaneous Notes* Telephone Encounter - Chika Lagos - 05/31/2023 2:54 PM EDT THE COMPLETED [facility] PATIENT ASSISTANCE APPLICATION FOR POSACONAZOLE WAS FAXED FOR CONSIDERATION. RECEIVED CALL FROM [facility] AND MORENITA SEARS, THE PATIENT WAS APPROVED FOR ASSISTANCE UNDER FOR THE DATES: 05/31/2023 - AT NO COST TO THE PATIENT. THE MEDICATION WILL BE MAILED DIRECTLY TO THE PATIENTS HOME ADDRESS WITHIN 3 TO 5 BUSINESS DAYS. EMAILED THE INFORMATION TO PRESCRIBER. 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 > ID [...] of this encounter (statuses as of 06/14/2023) [facility]-28-[facility] History of Past illness Narrative* Problem Noted [...] Tylenol and d/c'd home > seen at [facility] on 05/28 by heme/onc and BMT who recommended admission for concerns for port infection > blood cxs x2 obtained -- NGTD > 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, 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; 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 > ID [...] of this encounter (statuses as of 06/20/2023) [facility] History of Past illness Narrative* Problem Noted [...] Tylenol and d/c'd home > seen at [facility] on 05/28 by heme/onc and BMT who recommended admission for concerns for port infection > blood cxs x2 obtained -- NGTD > 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, 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; 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 > ID [...] of this encounter (statuses as of 06/22/2023) [facility] History of Past illness Narrative* Problem Noted [...] Tylenol and d/c'd home > seen at [facility] on 05/28 by heme/onc and BMT who recommended admission for concerns for port infection > blood cxs x2 obtained -- NGTD > 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, 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; 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 > ID [...] of this encounter (statuses as of 06/26/2023) [facility] History of Past illness Narrative* Problem Noted [...] Tylenol and d/c'd home > seen at [facility] on 05/28 by heme/onc and BMT who recommended admission for concerns for port infection > blood cxs x2 obtained -- NGTD > 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, 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; 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 > ID [...] of this encounter (statuses as of 06/26/2023) [facility] History of Past illness Narrative* Problem Noted [...] Tylenol and d/c'd home > seen at [facility] on 05/28 by heme/onc and BMT who recommended admission for concerns for port infection > blood cxs x2 obtained -- NGTD > 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, 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; 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 > ID [...] of this encounter (statuses as of 07/02/2023) [facility] History of Past illness Narrative* Problem Noted [...] Tylenol and d/c'd home > seen at [facility] on 05/28 by heme/onc and BMT who recommended admission for concerns for port infection > blood cxs x2 obtained -- NGTD > 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, 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; 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 > ID [...] of this encounter (statuses as of 07/07/2023) [facility] History of Past illness Narrative* Problem Noted [...] Tylenol and d/c'd home > seen at [facility] on 05/28 by heme/onc and BMT who recommended admission for concerns for port infection > blood cxs x2 obtained -- NGTD > 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, 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 Sherry Macdonald) History of present illness: The patient is a 67-year-old woman with a history of stage I (lJ8xT7C6)invasive breast carcinoma and DCIS of the left breast, 1.5 cm, grade 2, ER/RI positive and HER2 negative status post lumpectomy [...] experienced easy bruising. She initially presented to [place] emergency department and was subsequently transferred to [facility] for further evaluation. She was noted to [...] revealed complex cytogenetics/an NGS AML profile by [employer] revealed the following mutations:RUNK1 F40Wfs*14, TP53 C238Y, and DNMT3A R635W. The patient had a right sided Port-A-Cath placed on 05/26/2023 and was initially anticipated to start Vidaza and venetoclax next week. However, the Port-A-Cath site became extremely tender with surrounding erythema. She was evaluated earlier today by Dr. Mike Hughes and our Leukemia Program here at the [facility] and subsequently was referred to me for a transplant regarding allogenic hematopoietic cell transplantation. At the time of her visit she noted having some prior diffuse pain for which she had been in [facility]'s emergency department yesterday and received an [...] patient is and previously worked as a [employer] for 42 years and has been retired [...] on her extremities, erythema/tenderness around the right Cwfl-M-Nsgtrvsx tracking down to the right upper breast but no other rash. . Impression/recommendation: In summary, Mrs. Wilkes is a woman with a history of stage I ([id number]) invasive breast carcinoma and DCIS of the left breast, 1.5 cm, grade 2, ER/RI positive and HER2 negative status post lumpectomy [...] Melissa Hill MD (PCP) documented in this encounterThe Metrohealth System09-25-2023 NoteBrecksville [facility]09-25-2023 History of Present illness Narrative* Aurelia Hines [...] and the transplant basics book provided by [facility]. Instructions provided to have siblings register online or call with provided information. Patient instructed to call Aurelia Hines RN , pager [phone] with any questions. Business card provided. Patient [...] search. Aurelia Hines RN documented in this encounterThe Metrohealth System09-25-2023 Nurse Note* Cathleen Schuster LPN - 05/28/2023 1:26 PM EDT Reviewed and discussed nursing notes,vital signs,recent tests,,medications with the patient. documented in this encounterThe [facility]health System09-25-2023 NoteBrecksville [facility]04-21-2023 History of Present illness Narrative* Lynnette Malcolm [...] Pre-operative instruction sheet reviewed as well as CHG skin prep instructions. Verbalizes understanding. Patient had wellness lab and EKG completed 12/06/22 at [facility]. * New Marks RN - 12/07/2022 1:28 PM EDT Attempted PAT phone call; no answer; message left to return PAT phone call. [facility] [employer] Phone: [phone] Hospital Discharge instructions* Discharge Instructions* Lynnette Malcolm [...] 1-2 weeks. Call the office if questions [phone] [facility] [employer] Phone: [phone] History of Past illness Narrative* Problem Noted Date Diagnosed Date Resolved Date Breast cancer 09/11/2013 05/28/2023 documented as of this encounter (statuses as of 05/28/2023) [facility] History of Past illness Narrative* Problem Noted Date Diagnosed Date Resolved Date Breast cancer 09/11/2013 05/28/2023 documented as of this encounter (statuses as of 05/29/2023) [facility] History of Past illness Narrative* Problem Noted Date Diagnosed Date Resolved Date Breast cancer 09/11/2013 05/28/2023 documented as of this encounter (statuses as of 06/01/2023) [facility] note* Diagnosis Acute postoperative pain- Primary Other acute postoperative pain Lipoma of left forearm documented in this encounter [facility] [employer] 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 [facility] Diagnosis 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 Infection due to Port-A-Cath, initial encounter documented in this encounter [facility] note* Diagnosis 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) [facility] Diagnosis 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 Pancytopenia (HCC) Other pancytopenia History of breast cancer Personal history of malignant neoplasm of breast 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) documented [facility] encounter [facility]* Diagnosis 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 Pancytopenia (HCC) Other pancytopenia [facility] encounter [facility]* Diagnosis 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) documented in this encounter [facility]* Diagnosis 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 Hospital discharge follow-up Other follow-up examination Pancytopenia (HCC) Other pancytopenia Colitis Other and unspecified noninfectious gastroenteritis and colitis documented in this encounter [facility] note* Diagnosis 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 documented [facility] this encounter [facility]* Diagnosis 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 [facility] Diagnosis 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 Procedures RI EXC B9 LESION MRGN XCP SK TG T/A/L 0.5 CM/< ARM LESION BIOPSY EXCISION-INNER ARM LIPOMA Martha Malik DO [address] [place] [address] [facility] [address] [place] [address] Referral ID Status Reason Start Date Expiration Date Visits Re quested Visits Authorized [id number] 1 1 Reason Comments Consult Reason Comments Biopsy Request Reason Comments Patient Question Reason Comments Established Patient Reason Comments Leukemia Reason Onset Date Comments Refill Request 08/07/2023 Reason Comments Patient Education (Transplant) BMT Plann ing Reason Onset Date Comments Refill Request 08/09/2023 Reason Comments Consent Presentation IRB [id number] Reason Comments Appointment Ordered Prescriptions (unrec ognized [...] 1338 (New Bag - Prov ider: Faye Larsen RN)1408 (Due: Stopped - Provider: Faye Larsen [...] 12/20/2022 12/21/2022 12/22/2022 bupivacaine-EPINEPHrine PF (MARCAINE-w/EPINEPHRINE) 0.5% -1:692600 injection (CANCELED) PRN, Starting on Sun12/22/22 at [...] Carmen Agudelo, MAMTA)0847 (Given - Provider: Carmen Agudelo RN) ondansetron (PF) 4 mg injection (ZOFRAN) 4 mg, INTRAVENOUS, EVERY 6 HOURS NEEDED, Starting on Sun06/25/23 at 0925, Until Sun06/26/23 at 0303, Nausea/Vomiting - First Line - Parenteral, Give IV push over 2 minutes Care Teams (unrecognized sec tion and content) Facilities Clerk Relationship Specialty Start Date End Date WonderMelissa conrad MD [address] [place] [address] PCP - General Family Medicine 11/17/22 Facilities Clerk Relationship Specialty Start Date End Date WonderMelissa conrad MD PCP - General Family Medicine 08/25/13 Facilities Clerk Relationship Specialty Start Date End Date WonderMelissa conrad MD PCP - General Family Medicine 08/25/13 Facilities Clerk Relationship Specialty Start Date End Date WonderMelissa conrad MD PCP - General Family Medicine 08/25/13 Facilities Clerk Relationship Specialty Start Date End Date WonderMelissa conrad MD PCP - General Family Medicine 08/25/13 Facilities Clerk Relationship Specialty Start Date End Date WonderMelissa conrad MD PCP - General Family Medicine 08/25/13 Mike Hughes MD [address] [place] [address] Physician Hematology/Oncology 06/19/23 Facilities Clerk Relationship Specialty Start Date End Date WonderMelissa conrad MD PCP - General Family Medicine 08/25/13 Mike Hughes MD [address] [place] [address] Physician Hematology/Oncology 06/19/23 Facilities Clerk Relationship Specialty Start Date End Date Melissa Pierce MD PCP - General Family Medicine 08/25/13 Mike Hughes MD [address] [place] [address] Physician Hematology/Oncology 06/19/23 Facilities Clerk Relationship Specialty Start Date End Date Melissa Pierce MD PCP - General Family Medicine 08/25/13 Mike Hughes MD [address] [place] [address] Physician Hematology/Oncology 06/19/23 Facilities Clerk Relationship Specialty Start Date End Date Melissa Pierce MD PCP - General Family Medicine 08/25/13 Mike Hughes MD [address] [place] [address] Physician Hematology/Oncology 06/19/23 Dania Hill, MAMTA Specialty [employer] Machine Operator Hematology/Oncology 06/28/23 Facilities Clerk Relationship Specialty Start Date End Date Melissa Pierce MD PCP - General Family Medicine 08/25/13 Mike Hughes MD [address] [place] [address] Physician Hematology/Oncology 06/19/23 Dania Hill, MAMTA Specialty [employer] Machine Operator Hematology/Oncology 06/28/23 Facilities Clerk Relationship Specialty Start Date End Date Melissa Pierce MD PCP - General Family Medicine 08/25/13 Mike Hughes MD [address] [place], [place] [id number] Physician Hematology/Oncology 06/19/23 Dania Hill RN Specialty [employer] Machine Operator Hematology/Oncology 06/28/23 Facilities Clerk Relationship Specialty Start Date End Date Melissa Pierce MD PCP - General Family Medicine 08/25/13 Mike Hughes MD [address] [place], [place] [id number] Physician Hematology/Oncology 06/19/23 Dania Hill, RN Specialty [employer] Machine Operator Hematology/Oncology 06/28/23 Georgina Kumar, MAMTA [address] [place], [place] [id number] Specialty [employer] Machine Operator Blood and Marrow Transplant 08/06/23 [place] [address] [place] [address] Transplant Physician Blood and Marrow Transplant 08/06/23 Facilities Clerk Relationship Specialty Start Date End Date Melissa Pierce MD PCP - General Family Medicine 08/25/13 [place] [address] [place], [place] [id number] Physician Hematology/Oncology 06/19/23 Dania Hill, MAMTA Specialty [employer] Machine Operator Hematology/Oncology 06/28/23 Georgina Kumar, MAMTA [address] [place] [id number] Specialty [employer] Machine Operator Blood and Marrow Transplant 08/06/23 [place] [address] [place] [address] Transplant Physician Blood and Marrow Transplant 08/06/23 Facilities Clerk Relationship Specialty Start Date End Date Melissa Pierce MD PCP - General Family [facility] 08/25/13 [place] [address] [place] [address] Physician Hematology/Oncology 06/19/23 Dania Hill, RN Specialty [employer] Machine Operator Hematology/Oncology 06/28/23 Georgina Kumar, MAMTA [address] [place] [address] Specialty Excelsior Machine Operator Blood and Marrow Transplant 08/06/23 [place] [address] [place] [address] Transplant Physician Blood and Marrow Transplant 08/06/23 Facilities Clerk Relationship Specialty Start Date End Date Melissa Pierce MD PCP - General Family Medicine 08/25/13 Mike Hughes MD [address] [place], [place] [id number] Physician Hematology/Oncology 06/19/23 Dania Hill, MAMTA Specialty [employer] Machine Operator Hematology/Oncology 06/28/23 [place] [address] [place] [address] Specialty Excelsior Machine Operator Blood and Marrow Transplant 08/06/23 Brianna Pham MD [address] [place] [address] Transplant Physician Blood and Marrow Transplant 08/06/23 Facilities Clerk Relationship Specialty Start Date End Date Melissa Pierce MD PCP - General Family Medicine 08/25/13 Mike Hughes MD [address] [place] [address] Physician Hematology/Oncology 06/19/23 Dania Hill, MAMTA Specialty [employer] Machine Operator Hematology/Oncology 06/28/23 Georgina Kumar, [place] [id number] [place] [address] Specialty Excelsior Machine Operator Blood and Marrow Transplant 08/06/23 Brianna Pham MD [address] [place] [address] Transplant Physician Blood and Marrow Transplant 08/06/23 Facilities Clerk Relationship Specialty Start Date End Date Melissa Pierce MD PCP - General Family Medicine 08/25/13 Mike Hughes MD [address] [place] [address] Physician Hematology/Oncology 06/19/23 [place] [address] [place] [address] Specialty Excelsior Machine Operator Blood and Marrow Transplant 08/06/23 [place] [address] [place] [address] Transplant Physician Blood and Marrow Transplant 08/06/23 Sofya Schmid RN Specialty Excelsior Machine Operator Hematology/Oncology 08/09/23 Fidelina Shearer LISW [address] [place], [place] [id number] Blood and Marrow Transplant 08/09/23 Facilities Clerk Relationship Specialty Start Date End Date Wonderly, Melissa Shahid MD PCP - General Family Medicine 08/25/13 Mike Hughes MD [address] [place] [address] Physician Hematology/Oncology 06/19/23 [place] [address] [place] [address] Specialty Excelsior Machine Operator Blood and Marrow Transplant 08/06/23 [place] [address] [place] [address] Transplant Physician Blood and Marrow Transplant 08/06/23 Sofya Schmid RN Specialty Excelsior Machine Operator Hematology/Oncology 08/09/23 Fidelina Shearer LISW [address] [place] [address] Blood and Marrow Transplant 08/09/23 Facilities Clerk Relationship Specialty Start Date End Date Melissa Pierce MD PCP - General Family Medicine 08/25/13 Mike Hughes MD [address] [place], [place] [id number] Physician Hematology/Oncology 06/19/23 Georgina Kumar, MAMTA [address] [place] [address] Specialty Excelsior Machine Operator Blood and Marrow Transplant 08/06/23 [place] [address] [place] [address] Transplant Physician Blood and Marrow Transplant 08/06/23 Sofya Schmid RN Specialty Excelsior Machine Operator Hematology/Oncology 08/09/23 Fidelina Shearer LISW [address] [place] [address] Blood and Marrow Transplant 08/09/23 Facilities Clerk Relationship Specialty Start Date End Date Melissa Pierce MD PCP - General Family Medicine 08/25/13 Mike Hughes MD [address] [place], [place] [phone] Physician Hematology/Oncology 06/19/23 Dania Hill, MAMTA Specialty [employer] Machine Operator Hematology/Oncology 06/28/23 08/08/23 Georgina Kumar, MAMTA [address] [place] [address] Specialty Excelsior Machine Operator Blood and Marrow Transplant 08/06/23 [place] [address] [place], [place] [id number] Transplant Physician Blood and Marrow Transplant 08/06/23 Sofya Schmid RN Specialty Excelsior Machine Operator Hematology/Oncology 08/09/23 Fidelina Shearer LISW [address] [place], [place] [address] Blood and Marrow Transplant 08/09/23 Facilities Clerk Relationship Specialty Start Date End Date Wonderly, Melissa Shahid MD PCP - General Family Medicine 08/25/13 Mike Hughes MD [address] [place] [address] Physician Hematology/Oncology 06/19/23 [place] [address] [place], [place] [id number] Specialty Ex[employer]ior Machine Operator Blood and Marrow Transplant 08/06/23 [place] [address] [place] [address] Transplant Physician Blood and Marrow Transplant 08/06/23 Sofya Schmid RN Specialty Excelsior Machine Operator Hematology/Oncology 08/09/23 Fidelina Shearer LISW [address] [place], [place] [id number] Blood and Marrow Transplant 08/09/23 Source Comments (unrecognize d section and content) In the event this informatio n is protected by the Federal Confidentiality of Alcohol and Drug Abuse Patient Records regulations: The Federal rules restrict any use of the information to criminally investigate or prosecute any alcohol or drug abuse patient.[facility] SystemIn the event this information is protected by the Federal Confidentiality of Alcohol and Drug Abuse Patient Records regulations: The Federal rules restrict any use of the information to criminally investigate or prosecute any alcohol or drug abuse patient.[facility] SystemIn the event this information is protected by the Federal Confidentiality of Alcohol and Drug Abuse Patient Records regulations: The Federal rules restrict any use of the information to criminally investigate or prosecute any alcohol or drug abuse patient.[facility] SystemIn the event this information is protected by the Federal Confidentiality of Alcohol and Drug Abuse Patient Records regulations: The Federal rules restrict any use of the information to criminally investigate or prosecute any alcohol or drug abuse patient.[facility] SystemIn the event this information is protected by the Federal Confidentiality of Alcohol and Drug Abuse Patient Records regulations: The Federal rules restrict any use of the information to criminally investigate or prosecute any alcohol or drug abuse patient.[facility] SystemIn the event this information is protected by the Federal Confidentiality of Alcohol and Drug Abuse Patient Records regulations: The Federal rules restrict any use of the information to criminally investigate or prosecute any alcohol or drug abuse patient.[facility] SystemIn the event this information is protected by the Federal Confidentiality of Alcohol and Drug Abuse Patient Records regulations: The Federal rules restrict any use of the information to criminally investigate or prosecute any alcohol or drug abuse patient.[facility] SystemIn the event this information is protected by the Federal Confidentiality of Alcohol and Drug Abuse Patient Records regulations: The Federal rules restrict any use of the information to criminally investigate or prosecute any alcohol or drug abuse patient.[facility] SystemIn the event this information is protected by the Federal Confidentiality of Alcohol and Drug Abuse Patient Records regulations: The Federal rules restrict any use of the information to criminally investigate or prosecute any alcohol or drug abuse patient.[facility] SystemIn the event this information is protected by the Federal Confidentiality of Alcohol and Drug Abuse Patient Records regulations: The Federal rules restrict any use of the information to criminally investigate or prosecute any alcohol or drug abuse patient.[facility] SystemIn the event this information is protected by the Federal Confidentiality of Alcohol and Drug Abuse Patient Records regulations: The Federal rules restrict any use of the information to criminally investigate or prosecute any alcohol or drug abuse patient.[facility] SystemIn the event this information is protected by the Federal Confidentiality of Alcohol and Drug Abuse Patient Records regulations: The Federal rules restrict any use of the information to criminally investigate or prosecute any alcohol or drug abuse patient.[facility] SystemIn the event this information is protected by the Federal Confidentiality of Alcohol and Drug Abuse Patient Records regulations: The Federal rules restrict any use of the information to criminally investigate or prosecute any alcohol or drug abuse patient.[facility] SystemIn the event this information is protected by the Federal Confidentiality of Alcohol and Drug Abuse Patient Records regulations: The Federal rules restrict any use of the information to criminally investigate or prosecute any alcohol or drug abuse patient.[facility] SystemIn the event this information is protected by the Federal Confidentiality of Alcohol and Drug Abuse Patient Records regulations: The Federal rules restrict any use of the information to criminally investigate or prosecute any alcohol or drug abuse patient.[facility] SystemIn the event this information is protected by the Federal Confidentiality of Alcohol and Drug Abuse Patient Records regulations: The Federal rules restrict any use of the information to criminally investigate or prosecute any alcohol or drug abuse patient.[facility] SystemIn the event this information is protected by the Federal Confidentiality of Alcohol and Drug Abuse Patient Records regulations: The Federal rules restrict any use of the information to criminally investigate or prosecute any alcohol or drug abuse patient.[facility] SystemIn the event this information is protected by the Federal Confidentiality of Alcohol and Drug Abuse Patient Records regulations: The Federal rules restrict any use of the information to criminally investigate or prosecute any alcohol or drug abuse patient.[facility] SystemIn the event this information is protected by the Federal Confidentiality of Alcohol and Drug Abuse Patient Records regulations: The Federal rules restrict any use of the information to criminally investigate or prosecute any alcohol or drug abuse patient.[facility] SystemIn the event this information is protected by the Federal Confidentiality of Alcohol and Drug Abuse Patient Records regulations: The Federal rules restrict any use of the information to criminally investigate or prosecute any alcohol or drug abuse patient.[facility] SystemIn the event this information is protected by the Federal Confidentiality of Alcohol and Drug Abuse Patient Records regulations: The Federal rules restrict any use of the information to criminally investigate or prosecute any alcohol or drug abuse patient.[facility] SystemIn the event this information is protected by the Federal Confidentiality of Alcohol and Drug Abuse Patient Records regulations: The Federal rules restrict any use of the information to criminally investigate or prosecute any alcohol or drug abuse patient.[facility] FOR RECORDS PERTAINING TO PATIENTS WHO ARE [...] BE BASED ON THE PRIMARY CLINICAL RECORDS. [facility] [facility]. provides no warranty or guarantee of the accuracy or completeness of information in this document.
[2023-09-23 10:39] VITALS: BP 144/83; PULSE 82; RESP 31; O2SAT 98
[2023-09-23 10:40] VITALS: PULSE 75; RESP 17; O2SAT 99
--- NOTE | 2023-09-23 10:41 | ED_ITS ---
HPI - General Adult General Chief complaint: Recheck/Abnormal Lab/Rx Stated complaint: nose bleed/ general weakness Time Seen by Provider: 09/23/23 10:29 Source: patient Mode of arrival: walk-in Limitations: no limitations History of Present Illness HPI narrative: 68-year-old female presents for nosebleed. It started bleeding from the right side and there was no trauma. She has leukemia and is in treatment for it. She was concerned about her blood count dropping even further. Related Data Home Medications Medication Instructions Recorded Confirmed bupropion HCl 75 mg tablet 75 mg PO BID 05/03/23 09/23/23 omeprazole 20 mg capsule,delayed 20 mg PO DAILY 05/03/23 09/23/23 release acyclovir 400 mg tablet 400 mg PO BID 05/25/23 09/23/23 levofloxacin 500 mg tablet 500 mg PO DAILY 06/18/23 09/23/23 olanzapine 2.5 mg tablet 2.5 mg PO .QHS 06/18/23 09/23/23 posaconazole 100 mg tablet,delayed 300 mg PO DAILY 06/18/23 09/23/23 release (Noxafil) loratadine 10 mg tablet (Claritin) 10 mg PO Q24H PRN allergic symptoms 07/11/23 09/23/23 ondansetron 4 mg disintegrating 4 mg PO Q6H PRN nausea and vomiting 07/11/23 09/23/23 tablet acetaminophen 300 mg-codeine 30 mg 1 tab PO Q6H PRN pain 09/23/23 09/23/23 tablet Allergies Allergy/AdvReac Type Severity Reaction Status Date / Time hydrocodone [From Vicodin] AdvReac Verified 09/23/23 10:31 Review of Systems ROS Narrative A ten point review of systems is negative except as noted above. [facility] Medical History (Updated 09/23/23 @ 12:45 by Jay Hendricks MD) GERD (gastroesophageal reflux disease) ?K21.9 - Gastro-esophageal reflux disease without esophagitis (ICD-10) Depression ?F32.A - Depression, unspecified (ICD-10) AML (acute myeloblastic leukemia) ?C92.00 - Acute myeloblastic leukemia, not having achieved remission (ICD-10) History of blood transfusion ?Z92.89 - Personal history of other medical treatment (ICD-10) 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 - Intraductal carcinoma in situ of left breast (ICD-10) Myeloid leukemia ?C92.90 - Myeloid leukemia, unspecified, not having achieved remission (ICD- 10) Symptomatic anemia ?D64.9 - Anemia, unspecified (ICD-10) Surgical History History of bone marrow biopsy ?Z98.890 - Other specified postprocedural states (ICD-10) S/P excision of lipoma ?Z98.890 - Other specified postprocedural states (ICD-10) ?Z86.018 - Personal history of other benign neoplasm (ICD-10) History of hysterectomy ?Z90.710 - Acquired absence of both cervix and uterus (ICD-10) Family History Father Family history of cancer Family history of hypertension Mother Family history of hypertension Grandfather Family history of cancer Grandmother Family history of cancer Aunt Family history of cancer Social History Within the past year, how often did you have a drink containing alcohol: monthly or less Within the past year, how many standard drinks containing alcohol did you have on a typical day: 1 or 2 Total score: 0 Score interpretation: A score less than 3 is consistent with normal alcohol consumption. Smoking status: Never smoker Do you think of yourself as: straight/heterosexual Gender Identity: female Exam Narrative Exam Narrative: Nurses note and vital signs reviewed and patient is not hypoxic. General: The patient appears well and in no apparent distress. Patient is resting comfortably on cart. Skin: Warm, dry, slight pallor noted. There is no rash noted. Head: Normocephalic, atraumatic Eye: Normal conjunctiva, no drainage Ears, Nose, Mouth, and Throat: oral mucosa is moist. Nares patent. no active bl eeding. There is some dried blood on the right nasal septum. Cardiovascular: Regular Rate and Rhythm Respiratory: Patient is in no distress, no accessory muscle use, lungs are clear to auscultation, no wheezing, rales or rhonchi Back: non-tender GI: soft and nontender Musculoskeletal: The patient has no evidence of calf tenderness, no pitting edema, symmetrical pulses noted bilaterally Neurological: A&O, normal speech Psychiatric: Cooperative Constitutional Vital Signs, click to edit/add: Last Vital Signs Temp 97.5 F L 09/23/23 10:31 Pulse 77 09/23/23 10:50 Resp 19 09/23/23 10:50 BP 144/83 H 09/23/23 10:39 Pulse Ox 98 09/23/23 10:50 O2 Del Method Room Air 09/23/23 10:31 Course Vital Signs Vital signs: Vital Signs Temperature 97.5 F L 09/23/23 10:31 Pulse Rate 85 09/23/23 10:31 Respiratory Rate 20 09/23/23 10:31 Blood Pressure 160/90 H 09/23/23 10:31 Pulse Oximetry 95 09/23/23 10:31 Oxygen Delivery Method Room Air 09/23/23 10:31 Temperature 97.5 F L 09/23/23 10:31 Pulse Rate 77 09/23/23 10:50 Respiratory Rate 19 09/23/23 10:50 Blood Pressure 144/83 H 09/23/23 10:39 Pulse Oximetry 98 09/23/23 10:50 Oxygen Delivery Method Room Air 09/23/23 10:31 Medical Decision Making MDM Narrative Medical decision making narrative: and platelet count is four and hemoglobin is 6.9. I've spoken to Dr. Macdonald who recommends transfusion of blood and platelets. This will be accomplished today and I've ordered these transfusions. She has had no more epistaxis here and will be discharged home after her transfusion. Differential Diagnosis Differential Diagnosis: epistaxis, thrombocytopenia Medical Records Medical records reviewed: Yes I reviewed the patient's medical records Lab Data Lab results reviewed: Yes I reviewed the patient's lab results Labs: Lab Results 09/23/23 Range/Units 10:50 WBC 0.5 L* (4.0-11.0) 10^3/uL RBC 2.12 L (4.20-5.40) 10^6/uL Hgb 6.9 L* (12.0-16.0) g/dL Hct 20.0 L* (36.0-48.0) % MCV 94.3 (81.0-99.0) fL MCH 32.5 (26.7-34.0) pg MCHC 34.5 (29.9-35.2) g/dL RDW 18.6 H (11.0-15.0) % Plt Count 4 L* (150-450) 10^3/uL Seg Neuts % (Manual) 8.0 Lymphocytes % (Manual) 92.0 H (20.5-60.0) % Monocytes % (Manual) 0.0 L (1.7-12.0) % Eosinophils % (Manual) 0.0 L (0.9-7.0) % Basophils % (Manual) 0.0 L (0.2-2.0) % Neutrophils # (Manual) 0.04 L (1.4-6.5) 10^3/uL Lymphocytes # (Manual) 0.46 L (1.20-3.80) 10^3/uL Monocytes # (Manual) 0.00 L (0.30-0.80) 10^3/uL Eosinophils # (Manual) 0.00 (0.00-0.70) 10^3/uL Basophils # (Manual) 0.00 (0.00-0.10) 10^3/uL Sodium 143 (136-145) mmol/L Potassium 3.5 (3.5-5.1) mmol/L Chloride 108 H (98-107) mmol/L Carbon Dioxide 25.1 (21.0-32.0) mmol/L Anion Gap 13.4 BUN 9.0 (7.0-18.0) mg/dL Creatinine 0.89 (0.55-1.02) mg/dL Est GFR ( Amer) >60 (>=60) Est GFR (Non-Af Amer) >60 (>=60) BUN/Creatinine Ratio 10.1 Glucose 123 H (74-106) mg/dL Calcium 8.8 (8.5-10.1) mg/dL Discharge Plan Discharge Chief Complaint: Recheck/Abnormal Lab/Rx Clinical Impression: Epistaxis, Anemia, Thrombocytopenia Patient Disposition: Home, Self-Care Time of Disposition Decision: 12:45 Condition: Good Mode of Transportation: Private Vehicle Prescriptions / Home Meds: No Action bupropion HCl 75 mg tablet 75 mg PO BID omeprazole 20 mg capsule,delayed release(DR/EC) 20 mg PO DAILY levofloxacin 500 mg tablet 500 mg PO DAILY Hold Instructions: Until instructed to resume by Dr Macdonald posaconazole [Noxafil] 100 mg tablet,delayed release (DR/EC) 300 mg PO DAILY olanzapine 2.5 mg tablet 2.5 mg PO .QHS ondansetron 4 mg tablet,disintegrating 4 mg PO Q6H PRN (Reason: nausea and vomiting) loratadine [Claritin] 10 mg tablet 10 mg PO Q24H PRN (Reason: allergic symptoms) acetaminophen-codeine 300-30 mg tablet 1 tab PO Q6H PRN (Reason: pain) acyclovir 400 mg tablet 400 mg PO BID Instructions: Nosebleed (ED), Anemia (ED), Thrombocytopenia (ED) Additional Instructions: Transfusion today. See your oncologist at your appointment on Sunday Stand Alone Forms: Portal Instructions Referrals: PEDRO PIERCE [Primary Care Provider] - 1 week Procedures ED Procedure Instructions Procedures Procedures: The following procedure was performed by me. Silver nitrate cauterization was carried out to the right nasal septum with the patient. No further bleeding. She tolerated the procedure well.
[2023-09-23 10:50] VITALS: PULSE 77; RESP 19; O2SAT 98
[2023-09-23] MEDS: SILVER NITRATE APPLICATOR STICK 1 APPLIC TOPICAL (10:52)
[2023-09-23 11:04] LABS: Mean Corpuscular HGB Conc 34.5 g/dL (29.9-35.2); Mean Corpuscular Hemoglobin 32.5 pg (26.7-34.0); Mean Corpuscular Volume 94.3 fL (81.0-99.0); Red Blood Count 2.12 10^6/uL (4.20-5.40); Red Cell Distribution Width 18.6 % (11.0-15.0)
[2023-09-23 11:12] LABS: Anion Gap 13.4; BUN Creatinine Ratio 10.1; Calcium 8.8 mg/dL (8.5-10.1); Carbon Dioxide 25.1 mmol/L (21.0-32.0); Chloride 108 mmol/L (98-107); Estimated GFR (African America >60 (>=60); Estimated GFR (Non-African Ame >60 (>=60); Glucose 123 mg/dL (74-106); Potassium 3.5 mmol/L (3.5-5.1); Sodium 143 mmol/L (136-145)
[2023-09-23 11:22] LABS: Hemoglobin 6.9 g/dL (12.0-16.0); Platelet Count 4 10^3/uL (150-450); White Blood Count 0.5 10^3/uL (4.0-11.0)
[2023-09-23 11:39] LABS: Lymphocytes Absolute Manual 0.46 10^3/uL (1.20-3.80); Segmented Neut Absolute Manual 0.04 10^3/uL (1.4-6.5)
--- NOTE | 2023-09-23 11:40 | ECG_ITS ---
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
== END 2023-09-23 14:31 | disposition home or self-care (01) ==
PROVIDERS: Emergency Provider Emergency Medicine; PCP Family Medicine
DX: R04.0 Epistaxis (principal); D64.9 Anemia, unspecified; D69.6 Thrombocytopenia, unspecified; C92.00 Acute myeloblastic leukemia, not having achieved remission; Z79.899 Other long term (current) drug therapy; K21.9 Gastro-esophageal reflux disease without esophagitis; F32.A Depression, unspecified; Z98.890 Other specified postprocedural states; Z90.710 Acquired absence of both cervix and uterus; Z86.018 Personal history of other benign neoplasm; Z85.3 Personal history of malignant neoplasm of breast
CPT/HCPCS: 36415; 36430; 36569; 36592; 80048; 85007; 85027; 86850; 86900; 86901; 93005; 99284; J1200; P9035; P9038

== ENCOUNTER 2023-10-01 06:59 | Outpatient (RCR) | payer MEDICARE, SELFPAY ==
[2023-09-04 11:42] LABS: Hemoglobin 7.6 g/dL (12.0-16.0); Mean Corpuscular HGB Conc 34.5 g/dL (29.9-35.2); Mean Corpuscular Hemoglobin 34.7 pg (26.7-34.0); Mean Corpuscular Volume 100.5 fL (81.0-99.0); Mean Platelet Volume 10.7 fL (9.5-13.5); Red Blood Count 2.19 10^6/uL (4.20-5.40); Red Cell Distribution Width 22.8 % (11.0-15.0)
[2023-09-04 11:45] LABS: Platelet Count 29 10^3/uL (150-450); White Blood Count 0.6 10^3/uL (4.0-11.0)
[2023-09-04 11:59] LABS: Anisocytosis 1+; Lymphocytes Absolute Manual 0.51 10^3/uL (1.20-3.80); Macrocytosis 1+; Monocytes Absolute Manual 0.03 10^3/uL (0.30-0.80); Segmented Neut Absolute Manual 0.04 10^3/uL (1.4-6.5)
[2023-09-04 13:09] LABS: Alanine Aminotransferase 37 U/L (14-59); Albumin Globulin Ratio 1.1; Albumin Level 3.3 g/dL (3.4-5.0); Alkaline Phosphatase 78 U/L (46-116); Aspartate Amino Transferase 25 U/L (15-37); BUN Creatinine Ratio 15.1; Bilirubin Total 0.5 mg/dL (0.2-1.0); Calcium 9.2 mg/dL (8.5-10.1); Estimated GFR (African America >60 (>=60); Estimated GFR (Non-African Ame >60 (>=60); Glucose 104 mg/dL (74-106); Phosphorus 4.1 mg/dL (2.6-4.7); Total Protein 6.3 g/dL (6.4-8.2)
[2023-09-04 13:13] LABS: Potassium 3.2 mmol/L (3.5-5.1); Sodium 144 mmol/L (136-145)
[2023-09-04 14:30] LABS: Anion Gap 12.2; Chloride 107 mmol/L (98-107)
--- NOTE | 2023-09-06 10:18 | PC.NURSE ---
1000 Arrive ambulatory with . Alert & oriented. Patient changed into gown for PICC placement. 1010 See textile technical officerconfiguration management analyst.
[2023-09-06 11:49] LABS: Hemoglobin 7.3 g/dL (12.0-16.0); Mean Corpuscular HGB Conc 33.8 g/dL (29.9-35.2); Mean Corpuscular Volume 100.5 fL (81.0-99.0); Mean Platelet Volume 12.9 fL (9.5-13.5); Platelet Count 31 10^3/uL (150-450); Red Blood Count 2.15 10^6/uL (4.20-5.40); Red Cell Distribution Width 22.4 % (11.0-15.0)
--- NOTE | 2023-09-06 11:54 | PC.NURSE ---
1120picc insertion completed per contract staff. Rt arm, tolerated well. scant amount blood noted around insertion site. Labs drawn from single lumen picc, sent to lab. flushed picc with 30 ml of nss, cap changed. 1130 released ambulatory
[2023-09-06 11:55] LABS: Alanine Aminotransferase 34 U/L (14-59); Albumin Globulin Ratio 1.2; Albumin Level 3.2 g/dL (3.4-5.0); Alkaline Phosphatase 76 U/L (46-116); Anion Gap 13.4; Aspartate Amino Transferase 19 U/L (15-37); BUN Creatinine Ratio 10.7; Bilirubin Total 0.4 mg/dL (0.2-1.0); Calcium 9.1 mg/dL (8.5-10.1); Carbon Dioxide 26.8 mmol/L (21.0-32.0); Chloride 106 mmol/L (98-107); Estimated GFR (African America >60 (>=60); Estimated GFR (Non-African Ame >60 (>=60); Globulin 2.7 g/dL; Glucose 106 mg/dL (74-106); Magnesium 2.1 mg/dL (1.8-2.4); Phosphorus 3.5 mg/dL (2.6-4.7); Potassium 3.2 mmol/L (3.5-5.1); Sodium 143 mmol/L (136-145); Total Protein 5.9 g/dL (6.4-8.2)
[2023-09-06 12:23] LABS: White Blood Count 0.6 10^3/uL (4.0-11.0)
[2023-09-06 12:24] LABS: Hematocrit 21.6 % (36.0-48.0)
[2023-09-06 13:18] LABS: Lymphocytes Absolute Manual 0.49 10^3/uL (1.20-3.80); Segmented Neut Absolute Manual 0.04 10^3/uL (1.4-6.5)
[2023-09-06 13:19] LABS: Metamyelocytes Absolute Manual 0; Monocytes Absolute Manual 0.05 10^3/uL (0.30-0.80); Myelocytes Absolute Manual 0
[2023-09-06 13:20] LABS: Poikilocytosis 2+
[2023-09-06 13:21] LABS: Anisocytosis 1+; Ovalocytes 1+; Tear Drop Cells 1+
[2023-09-06 13:22] LABS: Acanthocytes 1+
[2023-09-07 13:29] VITALS: BP 138/79; PULSE 68; RESP 18; TEMP 36.6; O2SAT 97
--- NOTE | 2023-09-07 13:31 | PC.NURSE ---
1315: Pt. to [facility] amb. accompanied by with concern regarding PICC line to right upper arm. Pt. relays suspecting allergic reaction to the CHG tegaderm dressing over insertion site. Relays concern due to abnormal drainage and redness with previous PICC line from several weeks ago. Tegaderm removed. Old dried blood noted on picc line. No abnormal purulent drainage or bleeding observed. Small amount of bruising observed around site from insertion 09/06/23. No foul odor or redness or edema observed. Site cleansed with CHG and new sterile tegaderm without the CHG applied. Paper tape applied to outer edges of dressing. Pt. tolerated without c/o. 1330: Pt. d/c'd amb. to home with .
[2023-09-10 11:14] LABS: Mean Corpuscular HGB Conc 35.3 g/dL (29.9-35.2); Mean Corpuscular Hemoglobin 34.7 pg (26.7-34.0); Mean Corpuscular Volume 98.4 fL (81.0-99.0); Mean Platelet Volume 10.2 fL (9.5-13.5); Red Blood Count 1.93 10^6/uL (4.20-5.40); Red Cell Distribution Width 22.2 % (11.0-15.0)
[2023-09-10 11:19] LABS: Hemoglobin 6.7 g/dL (12.0-16.0); Platelet Count 17 10^3/uL (150-450); White Blood Count 0.7 10^3/uL (4.0-11.0)
[2023-09-10 11:23] LABS: Alanine Aminotransferase 34 U/L (14-59); Albumin Globulin Ratio 1.1; Albumin Level 3.1 g/dL (3.4-5.0); Alkaline Phosphatase 80 U/L (46-116); Anion Gap 7.9; Aspartate Amino Transferase 22 U/L (15-37); Bilirubin Total 0.4 mg/dL (0.2-1.0); Calcium 8.7 mg/dL (8.5-10.1); Carbon Dioxide 28.4 mmol/L (21.0-32.0); Chloride 106 mmol/L (98-107); Estimated GFR (African America >60 (>=60); Estimated GFR (Non-African Ame >60 (>=60); Globulin 2.8 g/dL; Glucose 108 mg/dL (74-106); Lactate Dehydrogenase 212 U/L (81-234); Potassium 3.3 mmol/L (3.5-5.1); Sodium 139 mmol/L (136-145); Total Protein 5.9 g/dL (6.4-8.2); Uric Acid 3.3 mg/dL (2.6-6.0)
[2023-09-10] MEDS: PALONOSETRON HCL 0.25 MG/5 ML VIAL IV (11:31)
[2023-09-10 11:39] LABS: Lymphocytes Absolute Manual 0.61 10^3/uL (1.20-3.80); Monocytes Absolute Manual 0.05 10^3/uL (0.30-0.80); Segmented Neut Absolute Manual 0.01 10^3/uL (1.4-6.5)
[2023-09-10] MEDS: 0.9 % SODIUM CHLORIDE 250 ML 10 ML IV (11:45)
[2023-09-10 11:58] VITALS: BP 131/84; PULSE 75; RESP 16; TEMP 36.8; O2SAT 96
--- NOTE | 2023-09-10 12:05 | PC.NURSE ---
1050: Pt. to [facility] amb. for scheduled chemotherapy. Weight obtained. Seated in recliner. VSS. PICC line in place to right upper arm. Slight bruising around insertion site with small amount dried blood observed. Flushes easily and able to aspirate blood easily for ordered labs. IV 0.9% NS infusing at this time. Pt. without c/o or needs. 1124: Lab results phoned to Dr. Macdonald. Relays approval to proceed with chemo and administer 1 unit PRBC as per standing order. Pt. medicated with pre-med as ordered, see NOV. 1145: IV Vidaza initiated at this time after double check with Seamus Dean RN. Pt. given water, pillow and warm blanket. 1155: Tolerating infusion without c/o.
[2023-09-10 12:15] VITALS: BP 132/72; PULSE 75; RESP 16; TEMP 36.6; O2SAT 93
[2023-09-10] MEDS: ACETAMINOPHEN 325 MG TABLET 650 MG PO (12:20)
[2023-09-10] MEDS: DIPHENHYDRAMINE HCL 50 MG/ML (1ML) VIAL 25 MG IV (12:26)
[2023-09-10 12:45] VITALS: BP 131/84; PULSE 75; RESP 16; TEMP 36.8; O2SAT 96
[2023-09-10 13:03] VITALS: BP 131/70; PULSE 75; RESP 16; TEMP 36.6; O2SAT 93
--- NOTE | 2023-09-10 13:22 | PC.NURSE ---
1215: Pt. completed chemotherapy without s&s of adverse reactions. VSS. 1248: 1 unit PRBC initiated at this time as indicated. Lunch tray ordered. Denies c/o or further needs. remains at chair side. 1300: Tolerating blood without s&s of adverse reaction. VSS.
[2023-09-10 14:25] VITALS: BP 139/77; PULSE 77; RESP 16; TEMP 36.6; O2SAT 96
--- NOTE | 2023-09-10 14:42 | PC.NURSE ---
1425: PRBC completed at this time. VSS. Pt. without s&s of adverse reaction. PICC line flushed with saline. Denies c/o. 1438: Pt. d/c'd amb. to home accompanied by . Reminded pt. of s&s of delayed chemo reactions and to seek medical attention if necessary. Pt. relays understanding.
[2023-09-10 15:25] VITALS: BP 129/83; PULSE 67; RESP 18; TEMP 36.7; O2SAT 96
[2023-09-11 10:30] VITALS: BP 142/90; PULSE 83; RESP 16; TEMP 36.1; O2SAT 95
--- NOTE | 2023-09-11 11:46 | PC.NURSE ---
1030: Pt. to [facility] amb accompanied by . Seated in recliner. VSS. Assessment completed.
[2023-09-11] MEDS: 0.9 % SODIUM CHLORIDE 250 ML 50 ML IV (11:54)
[2023-09-11 13:00] VITALS: BP 143/87; PULSE 72; RESP 16; TEMP 36.6; O2SAT 94
--- NOTE | 2023-09-11 13:02 | PC.NURSE ---
1150: IV Azacitidine initiated as ordered. Pt. without c/o or needs. 1225: IV chemo completed at this time without s&s of adverse reaction. VSS. N.S. infusing at this time. 1245: PICC line flushed with saline. Pt. d/c'd amb. to home with .
[2023-09-12 10:51] VITALS: BP 137/84; PULSE 74; RESP 18; TEMP 36.6; O2SAT 98
--- NOTE | 2023-09-12 10:55 | PC.NURSE ---
1035: Pt. to [facility] amb. accompanied by . Weight obtained. Seated in recliner. VSS. PICC line to right upper arm intact and without s&s of infection or infiltration. Flushes easily with good blood return. Pt. without c/o or needs. Warm blanket and water provided.
[2023-09-12] MEDS: 0.9 % SODIUM CHLORIDE 250 ML 50 ML IV (11:24)
--- NOTE | 2023-09-12 11:29 | PC.NURSE ---
1124: Azacitidine initiated as ordered see MAR. Pt. denies needs or c/o. remains at chairside.
--- NOTE | 2023-09-12 11:44 | PC.NURSE ---
Patient tolerating infusion without c/o.
[2023-09-12 12:15] VITALS: BP 137/84; PULSE 67; RESP 16; TEMP 36.6; O2SAT 98
--- NOTE | 2023-09-12 12:16 | PC.NURSE ---
1200: Azacitidine completed at this time without s&s of adverse reaction. VSS. PICC flushed with saline at this time. 1210: PICC line to SLF. Pt. without c/o or needs. D/c'd amb. to home with .
[2023-09-13 11:10] LABS: Hemoglobin 7.4 g/dL (12.0-16.0); Immature Granulocytes Abs Auto 0.01 10^3/uL (0.00-0.03); Immature Granulocytes Pct Auto 1.4 % (0.0-0.5); Lymphocytes Absolute Auto 0.6 10^3/uL (1.2-3.8); Lymphocytes Percent Auto 80.3 % (20.5-60.0); Mean Corpuscular HGB Conc 34.9 g/dL (29.9-35.2); Mean Corpuscular Hemoglobin 33.6 pg (26.7-34.0); Mean Corpuscular Volume 96.4 fL (81.0-99.0); Monocytes Absolute Auto 0.1 10^3/uL (0.3-0.8); Neutrophils Absolute Auto 0.1 10^3/uL (1.4-6.5); Neutrophils Percent Auto 11.3 % (43.0-75.0); Red Cell Distribution Width 21.1 % (11.0-15.0)
[2023-09-13] MEDS: 0.9 % SODIUM CHLORIDE 250 ML 50 ML IV (11:13)
[2023-09-13] MEDS: PALONOSETRON HCL 0.25 MG/5 ML VIAL IV (11:14)
[2023-09-13 11:22] LABS: Hematocrit 21.2 % (36.0-48.0); White Blood Count 0.7 10^3/uL (4.0-11.0)
[2023-09-13 11:23] LABS: Platelet Count 13 10^3/uL (150-450)
[2023-09-13 11:30] LABS: Alanine Aminotransferase 37 U/L (14-59); Albumin Globulin Ratio 1.1; Albumin Level 3.1 g/dL (3.4-5.0); Alkaline Phosphatase 91 U/L (46-116); Anion Gap 9.9; Aspartate Amino Transferase 22 U/L (15-37); BUN Creatinine Ratio 12.5; Bilirubin Total 0.4 mg/dL (0.2-1.0); Calcium 8.6 mg/dL (8.5-10.1); Carbon Dioxide 26.5 mmol/L (21.0-32.0); Chloride 108 mmol/L (98-107); Estimated GFR (African America >60 (>=60); Estimated GFR (Non-African Ame >60 (>=60); Globulin 2.7 g/dL; Glucose 125 mg/dL (74-106); Magnesium 2.2 mg/dL (1.8-2.4); Phosphorus 3.1 mg/dL (2.6-4.7); Potassium 3.4 mmol/L (3.5-5.1); Sodium 141 mmol/L (136-145); Total Protein 5.8 g/dL (6.4-8.2)
[2023-09-13 12:14] VITALS: BP 143/86; PULSE 73; RESP 16; TEMP 36.3; O2SAT 98
--- NOTE | 2023-09-13 12:21 | PC.NURSE ---
1045: Pt. to [facility] amb. for scheduled chemo. Weight obtained. Seated in recliner. VSS. PICC line to right upper arm in place. Blood drawn from PICC line for ordered labs. Flushes easily and able aspirate blood easily. Using sterile technique, dressing changed to PICC line. Pt. tolerates without c/o. 1125: IV Vidaza initiated as ordered. Denies needs or c/o. Given water and warm blanket. at chair side. 1200: Infusion complete. Pt. without s&s of adverse reaction. PICC flushed with saline. VSS. Pt. without c/o. 1210: Pt. d/c'd amb. to home with .
[2023-09-14 12:04] LABS: Bilirubin Urine NEGATIVE (NEGATIVE); Blood Urine NEGATIVE (NEGATIVE); Clarity Urine CLEAR (CLEAR); Color Urine YELLOW (YELLOW); Glucose Urine UA NEGATIVE (NEGATIVE); Ketones Urine NEGATIVE (NEGATIVE); Leukocyte Esterase Urine NEGATIVE (NEGATIVE); Nitrite Urine NEGATIVE (NEGATIVE); Protein Urine NEGATIVE (NEG/TRACE); Specific Gravity Urine 1.015 (1.005-1.025); Urobilinogen Urine 0.2 EU/dL (0.2-1.0)
--- NOTE | 2023-09-14 12:51 | PC.NURSE ---
1209 chemo infusion competed remainder of ns allowed to infuse.1230 patient complains of picc dressing irritating her near distal dressing, central line care performed under sterile technique. new dresssing applied. insertion site clear without signs or sympotoms of irritation/infection. 1230 Released ambulatory with
[2023-09-17 10:45] VITALS: BP 173/80; PULSE 78; RESP 18; TEMP 36.6; O2SAT 96
[2023-09-17 11:14] LABS: Mean Corpuscular HGB Conc 35.6 g/dL (29.9-35.2); Mean Corpuscular Volume 95.6 fL (81.0-99.0); Red Blood Count 2.03 10^6/uL (4.20-5.40); Red Cell Distribution Width 19.6 % (11.0-15.0)
[2023-09-17 11:15] LABS: Anion Gap 11.4; BUN Creatinine Ratio 10.7; Calcium 8.6 mg/dL (8.5-10.1); Chloride 107 mmol/L (98-107); Estimated GFR (African America >60 (>=60); Estimated GFR (Non-African Ame >60 (>=60); Glucose 118 mg/dL (74-106); Potassium 3.4 mmol/L (3.5-5.1); Sodium 142 mmol/L (136-145)
[2023-09-17 11:28] LABS: Hematocrit 19.4 % (36.0-48.0); Hemoglobin 6.9 g/dL (12.0-16.0); White Blood Count 0.6 10^3/uL (4.0-11.0)
[2023-09-17 11:29] LABS: Platelet Count 8 10^3/uL (150-450)
[2023-09-17] MEDS: PALONOSETRON HCL 0.25 MG/5 ML VIAL IV (11:56)
[2023-09-17] MEDS: 0.9 % SODIUM CHLORIDE 250 ML 20 ML IV (11:56)
[2023-09-17 12:30] LABS: Segmented Neut Absolute Manual 0.14 10^3/uL (1.4-6.5)
[2023-09-17 12:31] LABS: Anisocytosis 2+; Lymphocytes Absolute Manual 0.38 10^3/uL (1.20-3.80); Monocytes Absolute Manual 0.07 10^3/uL (0.30-0.80); Ovalocytes 1+
[2023-09-17] MEDS: ACETAMINOPHEN 325 MG TABLET 650 MG PO (12:36)
[2023-09-17] MEDS: DIPHENHYDRAMINE HCL 50 MG/ML (1ML) VIAL 25 MG IV (12:37)
[2023-09-17 13:11] VITALS: BP 133/68; PULSE 70; RESP 18; TEMP 36.5; O2SAT 96
[2023-09-17 13:31] VITALS: BP 145/86; PULSE 65; RESP 16; TEMP 36.2; O2SAT 97
[2023-09-17 14:53] VITALS: BP 149/85; PULSE 66; RESP 18; TEMP 36.8; O2SAT 96
[2023-09-18 11:05] VITALS: BP 117/77; RESP 16; TEMP 36.6; O2SAT 96
[2023-09-18 11:09] VITALS: BP 117/77; PULSE 74; RESP 18; TEMP 36.6; O2SAT 96
[2023-09-18 11:29] VITALS: BP 150/68; PULSE 71; RESP 16; TEMP 36.7; O2SAT 96
[2023-09-18 12:14] VITALS: BP 145/59; PULSE 68; RESP 16; TEMP 36.6; O2SAT 94
--- NOTE | 2023-09-18 13:02 | XR_ITS ---
The [address] [address] Patient Name: NABIL THOMPSON MRN: [id number] date: 1955 Sex: F Assigned Patient Location: [facility] Current Patient Location: [facility] Accession/Order Number: [id number] Exam Date: 09/18/2023 13:07 Report Date: 09/18/2023 13:31 At the request of: DEMETRI ALAS Procedure: XR chest 2V EXAM: XR chest 2V HISTORY: New Pic Line, Evaluate Positioning COMPARISON: Chest study dated 07/11/2023 TECHNIQUE: PA and lateral views of the chest were obtained. FINDINGS: Heart and mediastinal contours are grossly unremarkable in appearance. Linear densities in the left lower lung field compatible with mild atelectatic or fibrotic change. No obvious focal infiltrate or consolidation. PICC line on the right with distal tip at the mid/distal superior vena caval level in grossly unremarkable position. No obvious pneumothorax. Mild degenerative changes in the dorsal spine with slight convexity to the right. XR/XR chest 2V IMPRESSION: PICC line on the right as described. No obvious pneumothorax. Mild atelectatic or fibrotic change on the left as noted. Electronically authenticated by: AMANDA HAGEN Date: 09/18/2023 13:31
[2023-09-18 13:14] VITALS: BP 157/77; PULSE 74; RESP 16; TEMP 36.6; O2SAT 96
--- NOTE | 2023-09-18 13:16 | PC.NURSE ---
1030: Pt. to [facility] amb. accompanied by . Weight obtained. Seated in recliner. VSS. Pt. without c/o. PICC line to right upper arm in place. Line noted to be further withdrawn from insertion site. Flushes easily with good blood return. Pt. denies pain to site. No edema or redness to site. Small amount ecchymosis around site. 1110: Platelet infusion initiated at this time. Pt. given warm blanket and fluids. at chair side. 1118: Dr. Macdonald in to see patient. 1125: Pt. without c/o. VSS. Denies needs or c/o. 1205: Platelets completed at this time without s&s of adverse reaction. VSS. IV Vidaza initiated at this time after double check with MAMTA Henson. Lunch tray ordered. 1215: Lunch tray provided. Pt. without c/o. 1238: IV Vidaza completed without s&s of adverse reaction. Flushed with saline. Instructed to go to diagnostic imaging for PICC line placement verification. Pt. relays understanding. 1245: Pt. d/c'd amb. at this time.
[2023-09-20 11:24] LABS: Hemoglobin 7.2 g/dL (12.0-16.0); Mean Corpuscular Hemoglobin 32.6 pg (26.7-34.0); Mean Corpuscular Volume 93.2 fL (81.0-99.0); Red Blood Count 2.21 10^6/uL (4.20-5.40); Red Cell Distribution Width 19.9 % (11.0-15.0)
[2023-09-20 11:28] LABS: Hematocrit 20.6 % (36.0-48.0); Platelet Count 12 10^3/uL (150-450); White Blood Count 0.6 10^3/uL (4.0-11.0)
[2023-09-20 11:40] LABS: Lymphocytes Absolute Manual 0.46 10^3/uL (1.20-3.80); Monocytes Absolute Manual 0.01 10^3/uL (0.30-0.80); Segmented Neut Absolute Manual 0.12 10^3/uL (1.4-6.5)
[2023-09-20 11:41] LABS: Ovalocytes 1+; Poikilocytosis 1+
[2023-09-20 11:49] LABS: Alanine Aminotransferase 36 U/L (14-59); Albumin Globulin Ratio 1.1; Albumin Level 3.1 g/dL (3.4-5.0); Alkaline Phosphatase 85 U/L (46-116); Anion Gap 12.4; Aspartate Amino Transferase 24 U/L (15-37); BUN Creatinine Ratio 12.8; Bilirubin Total 0.6 mg/dL (0.2-1.0); Calcium 8.9 mg/dL (8.5-10.1); Carbon Dioxide 26.1 mmol/L (21.0-32.0); Chloride 107 mmol/L (98-107); Estimated GFR (African America >60 (>=60); Estimated GFR (Non-African Ame >60 (>=60); Globulin 2.8 g/dL; Glucose 120 mg/dL (74-106); Magnesium 2.1 mg/dL (1.8-2.4); Phosphorus 3.5 mg/dL (2.6-4.7); Potassium 3.5 mmol/L (3.5-5.1); Sodium 142 mmol/L (136-145); Total Protein 5.9 g/dL (6.4-8.2)
[2023-09-20 13:35] VITALS: BP 137/77; PULSE 75; RESP 18; TEMP 36.6; O2SAT 95
--- NOTE | 2023-09-20 13:37 | PC.NURSE ---
1100 arrival ambulatory to chair 1, alert oriented no complaints voiced. single lumen picc accessed under sterile technique, excellent blood return. labs drawn, sent to lab, flushed picc, changed caps. dressing and statlock changed under sterile technique. notes 2 tinny areas of bleeding along outer edge of dressing, 1 medially and one distal to site, cleansed with chlorhexadine scrub, skin prep applied. 1/4 steristrips appied to catheter, 5 cm of catheter exposed, covered with tegaderm. Patient tolerated well. Released ambulatory. Edmundo questing about giving platelets since her platelet level was 12. I did contact Dr. Reyes and said no platelets unless level less than 10, Called and explained to patient platelets were 8 on last draw, no need to transfuse at this point. will recheck labs on sunday.
[2023-09-23] VITALS (8 sets, daily range): BP systolic 141–162; BP diastolic 76–87; PULSE 64–76; RESP 17–20; TEMP 36–36.5; O2SAT 95–96
[2023-09-23] MEDS: DIPHENHYDRAMINE HCL 50 MG/ML (1ML) VIAL 25 MG IV (16:42)
[2023-09-23] MEDS: ACETAMINOPHEN 325 MG TABLET 650 MG PO (16:43)
[2023-09-23] MEDS: 0.9 % SODIUM CHLORIDE 250 ML 10 ML IV (16:43)
[2023-09-27 11:12] LABS: Hemoglobin 7.3 g/dL (12.0-16.0); Mean Corpuscular HGB Conc 35.1 g/dL (29.9-35.2); Mean Corpuscular Hemoglobin 32.2 pg (26.7-34.0); Mean Corpuscular Volume 91.6 fL (81.0-99.0); Red Blood Count 2.27 10^6/uL (4.20-5.40); Red Cell Distribution Width 18.2 % (11.0-15.0)
[2023-09-27 11:15] LABS: Hematocrit 20.8 % (36.0-48.0); Platelet Count 23 10^3/uL (150-450); White Blood Count 0.5 10^3/uL (4.0-11.0)
[2023-09-27 11:32] LABS: Alanine Aminotransferase 43 U/L (14-59); Albumin Globulin Ratio 1.1; Albumin Level 3.2 g/dL (3.4-5.0); Alkaline Phosphatase 94 U/L (46-116); Anion Gap 14.4; Aspartate Amino Transferase 22 U/L (15-37); BUN Creatinine Ratio 8.5; Bilirubin Total 0.5 mg/dL (0.2-1.0); Calcium 8.8 mg/dL (8.5-10.1); Carbon Dioxide 26.1 mmol/L (21.0-32.0); Chloride 107 mmol/L (98-107); Estimated GFR (African America >60 (>=60); Estimated GFR (Non-African Ame >60 (>=60); Globulin 2.9 g/dL; Glucose 108 mg/dL (74-106); Magnesium 2.1 mg/dL (1.8-2.4); Potassium 3.5 mmol/L (3.5-5.1); Sodium 144 mmol/L (136-145); Total Protein 6.1 g/dL (6.4-8.2)
[2023-09-27 11:43] LABS: Lymphocytes Absolute Manual 0.46 10^3/uL (1.20-3.80); Monocytes Absolute Manual 0.02 10^3/uL (0.30-0.80); Segmented Neut Absolute Manual 0.02 10^3/uL (1.4-6.5)
[2023-09-28] VITALS (7 sets, daily range): BP systolic 135–163; BP diastolic 78–90; PULSE 64–76; RESP 14–18; TEMP 36.6–37.1; O2SAT 95–97
[2023-09-28] MEDS: ACETAMINOPHEN 325 MG TABLET 650 MG PO (10:14)
[2023-09-28] MEDS: 0.9 % SODIUM CHLORIDE 500 ML IV (10:15)
[2023-09-28] MEDS: DIPHENHYDRAMINE HCL 25 MG CAPSULE PO (10:16)
--- NOTE | 2023-09-28 10:39 | PC.NURSE ---
1005: Pt. to [facility] amb accompanied by . Relays having slight nose bleed on way to hospital, but resolved with pressure application. No active bleeding noted at this time. VSS. PICC line to right upper arm without s&s of infection or infiltration. Flushes easily and able to aspirate blood easily. IV NS initiated at KVO. Infusing via blood warmer. Pre-infusion meds given as ordered.
--- NOTE | 2023-09-28 11:22 | PC.NURSE ---
1056: 1 unit PRBC initiated at this time. Pt. given water and warm blanket. Declines snack at this time. 1116: VSS. No c/o adverse reaction at this time. Denies needs. remains at bedside.
--- NOTE | 2023-09-28 11:55 | PC.NURSE ---
Pt. cont. to tolerate infusion without s&s of transfusion reaction. VSS. Lunch tray ordered for pt.
--- NOTE | 2023-09-28 13:01 | PC.NURSE ---
Pt. tolerating platelet infusion without c/o. VSS. PICC line remains without s&s of infection or infiltration.
--- NOTE | 2023-09-28 13:47 | PC.NURSE ---
Pt. without c/o. Denies needs.
--- NOTE | 2023-09-28 14:09 | PC.NURSE ---
1400: Platelet infusion complted without s&s of adverse reaction. VSS. PICC line flushed and to [facility]. 1403: Pt. d/c'd amb. to home with .
[2023-10-01 07:00] VITALS: BP 165/89; PULSE 78; RESP 16; TEMP 36.6; O2SAT 96
[2023-10-01 07:18] LABS: Hemoglobin 7.7 g/dL (12.0-16.0); Mean Corpuscular HGB Conc 34.2 g/dL (29.9-35.2); Mean Corpuscular Hemoglobin 30.6 pg (26.7-34.0); Mean Corpuscular Volume 89.3 fL (81.0-99.0); Red Blood Count 2.52 10^6/uL (4.20-5.40); Red Cell Distribution Width 17.7 % (11.0-15.0)
[2023-10-01 07:21] LABS: Hematocrit 22.5 % (36.0-48.0); Platelet Count 7 10^3/uL (150-450); White Blood Count 0.5 10^3/uL (4.0-11.0)
[2023-10-01 07:27] LABS: Alanine Aminotransferase 37 U/L (14-59); Albumin Globulin Ratio 1.1; Alkaline Phosphatase 92 U/L (46-116); Anion Gap 13.3; Aspartate Amino Transferase 22 U/L (15-37); Bilirubin Total 0.4 mg/dL (0.2-1.0); Calcium 8.5 mg/dL (8.5-10.1); Carbon Dioxide 26.1 mmol/L (21.0-32.0); Chloride 108 mmol/L (98-107); Estimated GFR (African America >60 (>=60); Estimated GFR (Non-African Ame >60 (>=60); Globulin 2.8 g/dL; Glucose 101 mg/dL (74-106); Magnesium 2.1 mg/dL (1.8-2.4); Phosphorus 4.2 mg/dL (2.6-4.7); Potassium 3.4 mmol/L (3.5-5.1); Sodium 144 mmol/L (136-145); Total Protein 5.8 g/dL (6.4-8.2)
[2023-10-01 07:38] LABS: Lymphocytes Absolute Manual 0.48 10^3/uL (1.20-3.80); Monocytes Absolute Manual 0.01 10^3/uL (0.30-0.80)
[2023-10-01] MEDS: 0.9 % SODIUM CHLORIDE 250 ML 10 ML IV (08:07)
[2023-10-01] MEDS: DIPHENHYDRAMINE HCL 25 MG CAPSULE PO (08:08)
[2023-10-01] MEDS: ACETAMINOPHEN 325 MG TABLET 650 MG PO (08:08)
--- NOTE | 2023-10-01 08:28 | PC.NURSE ---
0700: Pt. to [facility] amb. for blood draw. Accompanied by . Pt. scheduled for tooth extraction today. Picc line to right upper arm intact and without s&s of infection or infiltration. Flushes easily with good blood return. Blood drawn and sent to lab. 0721: Labs resulted and called to Dr. Macdonald. Instructs this RN to infuse 1 unit irradiated platelets as per standing order due to low platelet count. Pt. and notified. This Rn phones patients oral surgeon, Dr. Orourke's office, and notified of current platelet count. Appointment for scheduled tooth extraction today cancelled. Appointment tentatively re-scheduled for 2--24, dependent on lab results. Pt. and aware. 0730: Pt. notified of kendall needed to get irradiated platelets from [facility]. Pt. and given coffee. Relays comfort and denies needs.
--- NOTE | 2023-10-01 08:52 | PC.NURSE ---
Breakfast tray ordered. Denies needs or c/o.
[2023-10-01 10:07] VITALS: BP 165/89; PULSE 78; RESP 16; TEMP 36.6; O2SAT 96
--- NOTE | 2023-10-01 10:17 | PC.NURSE ---
1011: 1 unit irradiated platelets initiated at this time. Pt. without c/o or needs. remains at bedside.
[2023-10-01 10:25] VITALS: BP 144/79; PULSE 76; RESP 16; TEMP 36.6; O2SAT 95
--- NOTE | 2023-10-01 10:26 | PC.NURSE ---
Pt. tolerating platelets without c/o. Drinking water. denies needs.
[2023-10-01 11:47] VITALS: BP 158/79; PULSE 68; RESP 14; TEMP 36.8; O2SAT 96
--- NOTE | 2023-10-01 11:48 | PC.NURSE ---
1140: Platelet infusion completed at this time. VSS. Pt. without s&s of adverse reaction. PICC line flushed with saline. 1145: Pt. without c/o or needs. D/c'd amb. to home with .
== END 2023-10-03 23:59 | disposition home or self-care (01) ==
LOC: INF 06:59
PROVIDERS: PCP Family Medicine; Visit Provider Internal Medicine Hematology & Oncology
DX: Z51.11 Encounter for antineoplastic chemotherapy (principal); C92.00 Acute myeloblastic leukemia, not having achieved remission; C92.92 Myeloid leukemia, unspecified in relapse; D61.818 Other pancytopenia; R11.2 Nausea with vomiting, unspecified; Z90.710 Acquired absence of both cervix and uterus; Z85.3 Personal history of malignant neoplasm of breast; R82.998 Other abnormal findings in urine
CPT/HCPCS: 36415; 36430; 36569; 36592; 71046; 80048; 80053; 81003; 83615; 83735; 84100; 84550; 85007; 85025; 85027; 86850; 86900; 86901; 87086; 96375; 96413; 96523; C1887; G0463; J1200; J2469; J9025; P9035; P9038

== ENCOUNTER 2023-10-01 16:30 | Inpatient (IN) | payer MEDICARE, SELFPAY ==
[2023-10-01] VITALS (8 sets, daily range): BP systolic 125–162; BP diastolic 70–90; PULSE 89–91; RESP 16–20; TEMP 36.9–39.3; O2SAT 94–97; BMI 38.3; BMI 39.6
--- OUTSIDE RECORDS SUMMARY | 2023-10-01 16:48 | XMS_ITS | CCD ---
Author Name Unknown Address [address] [place] [address] Organization [facility] Care Team Providers Care Accordion Tuner Name Role Phone WONDERCECELIA, MABEL Primary Care Unavailable WONDERCECELIA, MELISSA DAMON Consulting Unavailable ELE PANIAGUA Attending Brenna vailable WONDERLY, DR MELISSA Banuelos Attending Unavailable WONDERLY, DR MELISSA Banuelos Consulting Unavailable WONDERCECELIA, DR MELISSA Banuelos Primary Care Unavailable WONDERCECELIA, DR MELISSA Banuelos Admitting Unavailable Melissa Pierce MD Primary Care Provider MARTHA MALIK I Admitting Unavailable MARTHA MALIK I Attending Unavailable MELISSA PIERCE Primary Care Unavailable Melissa Pierce MD Primary Care Provider Saul DANG, Mike Joseph Unavailable [phone] Liz OLEARY, Dania Unavailable Unavailable Stacy OLEARY, Georgina Unavailable Brianna Pham MD Unavailable [phone] Sharmaine OLEARY, Sofya Unavailable Fidelina Dominguez Unavailable Liz OLEARY, Dania Unavailable Unavailable MELISSA PIERCE Attending Unavailable MIKE HUGHES Attending Unavailable WONDERCECELIA, [facility] Primary Care Unavailable MIKE HUGHES Attending Unavailable WONDERCECELIA, [facility] Primary Care Unavailable BRIANNA PHAM Attending Unavailable BISHOP, SHERRY Referring Unavailable WONDERLY, [facility] Primary Care Unavailable BISHOP, SHERRY Referring Unavailable WONDERLY, [facility] Primary Care Unavailable BISHOP, SHERRY Referring Unavailable WONDERLY, [facility] Primary Care Unavailable WONDERLY, [facility] Primary Care Unavailable KARLA BETH Referring Unavailable WONDERLY, [facility] Primary Care Unavailable LJ LIZ Attending Unavailable LJ LIZ Admitting Unavailable WONDERLY, [facility] Primary [facility] Unavailable CHARLENE MARTINEZ Attending Unavailable CHARLENE MARTINEZ Admitting Unavailable WONDERLY, [facility] Unavailable BETH ACOSTA Referring Unavailable HUGHES, AKRILYAL JOSEPH Referring Unavailable HUGHES, AKRITI JOSEPH Attending Unavailable WONDERLY, [facility] Care Unavailable HUGHES, AKRITI JOSEPH Referring Unavailable HUGHES, AKRITI JOSEPH Attending Unavailable WONDERLY, [facility] Care Unavailable HUGHES, AKRITI JOSEPH Attending Unavailable WONDERLY, [facility] Unavailable HUGHES, AKRITI JOSEPH Attending Unavailable WONDERLY, [facility] Unavailable ABDI CONTEH Referring Unavailable MARYZAID S Attending Unavailable MARY, ZAID S Admitting Unavailable WONDERLY, [facility] Unavailable WONDERLY, [facility] Unavailable WONDERLY, [facility] Referring Unavailable SMITH HDEZ K Admitting Unavailabl e CINDI GONZALES Attending Unavailable BISHOP SHERRY Referring Unavailable HUGHES, AKRITI JOSEPH Attending Unavailable WONDERLY, [facility] Unavailable HUGHES, AKRITI JOSEPH Attending Unavailable WONDERLY, [facility] Unavailable Allergies Allergy Classification Reported Allergen(s) Allergy Type Date of Onset Reaction(s) Facility (20 sources) Acetaminophen / HYDROcodone; Translations: [HYDROCODONE-ACET AMINOPHEN] Drug Allergy 4 Other (See Comments), Mental Status Change [facility] (1 source) Acetaminophen / HYDROcodone; Translations: [Vicodin] Drug Allergy [facility] Repository Medications Current Medications Medication Drug Class(es) [...] on above: Take 1 capsule by mo [facility] once daily. OLANZapine 2.5 mg oral tablet [...] Test Name Value Interpretation Reference Range [facility]23 CNPN Normal [facility] CNPNon 09-25-2023 CNPN Normal [facility] CNPNon 09-19-2023 CNPN Normal [facility] CNPNon 09-13-2023 CNPN Normal [facility] CNSWon 09-13-2023 CNSW Normal [facility] CNPNon 09-06-2023 CNPN Normal [facility] ACUTE LEUKEMIA NGS PANEL, ZEENAT NE MARROWon 08-30-2023 ACUTE LEUK NGS PANEL, BONE MARROW Normal [facility] Comment on above: Order Comment: Order ing Facility: [facility] Address: [address] [place] [address] Result Comment: Acut e Leukemia NGS Panel, Bone MarrowLaboratory Accession Number: [id number]:Please see linked document and/or separate report for full result whenavailable.As reviewed by Leslye Ha MD, PhD Performed By: #### F 3IKim, LEFTYNGS ####CLAR[facility] ILLUMINA LIMSCLIA [id number] [facility] [id number] [address] [place] AML MRD BY FCon 08-30-2023 AML MRD BY FC View results in Scan talia Documents link when available. Normal [facility] Comment on above: Order Comment: Speci men Type: BONE MARROW SPECIMENOrdering Facility: [facility] Address: [address] [place] [address] Performed By: #### A MLMRD ####[facility] MOLECULAR MICROCLIA [id number] [place] [address] BONE MARROW ANALYSISon 08-30 ADDENDUM 1: Normal [facility] Comment on above: Order Comment: Speci men Type: BONE MARROW SPECIMENOrdering Facility: [facility] Address: [address] [place] [address] Result Comment: Markus tional stains were performed [...] 4:58 PM Performed By: #### B MRT ####[facility] [id number] [address] ADDENDUM 2: Normal [facility] Comment on above: Order Comment: Speci men Type: BONE MARROW SPECIMENOrdering Facility: [facility] Address: [address] [place] [address] Result Comment: Stai ns were performed on both block B1, as described in the prior addendum, and block C1. The CD34 stain on block C1 shows increased staining, at least 10% of cellularity. The diagnosis remains unchanged.Addendum electronically signed by Phyllis Montanez MD, PhD on 09/05/2023 at 5:09 PM Performed By: #### B MRT ####[facility] [id number] [address] ADDENDUM 3: Normal [facility] Comment on above: Order Comment: Speci men Type: BONE MARROW SPECIMENOrdering Facility: [facility] Address: [address] [place] [address] Result Comment: Mole cular testing demonstrates the following mutations consistent with persistent involvement by the patient's known myeloid neoplasm. Flow cytometry MRD testing performed outside shows an abnormal myeloid blast population comprising ~6% of white cells.IOJP1If.R635W, NM_022552.4, c.1903C>TVAF: 17.3%RUNX1p.F40Wfs*14, NM_001754.4, c.119_173del55VAF: 9.4%TP53p.C238Y, NM_000546.5, c.713G>AVAF: 27.7%Addendum electronically signed by Phyllis Montanez MD, PhD on 09/10/2023 at 7:16 PM Performed By: #### B MRT ####[facility] LABCLIA [id number] [place] [address] [place] CASE REPORT Normal [facility] Comment on above: Order Comment: Speci men Type: BONE MARROW SPECIMENOrdering Facility: [facility] Address: [address] [place] [address] Result Comment: Bone Marrow Pathology Report Case: [id number] Provider: Mike Hughes MD Collected: 08/30/2023 09:12 AMOrdering Location: Hematology/Oncology Received: 08/30/2023 09:41 AMPathologist: Phyllis Montanez MD, PhDSpecimens: A) - BONE MARROW ASPIRATE RIGHT POSTERIOR ILIAC CREST B) - BONE MARROW BIOPSY RIGHT POSTERIOR ILIAC CREST C) - BONE MARROW CLOT RIGHT POSTERIOR ILIAC CREST Performed By: #### B MRT ####[facility] LABCLIA [id number] [place] [address] [place] DIAGNOSIS COMMENT Normal [facility] Comment on above: Order Comment: Rochellei luz Type: BONE MARROW SPECIMENOrdering Facility: [facility] Address: [address] [place] [address] Result Comment: The patient is a 68-year-old female with history of acute myeloid leukemia with mutated TP53, therapy-related ([facility] 2021), status post therapy.The findings are consistent with persistent involvement by the patient's known acute myeloid leukemia. Preliminary findings were discussed by phone with Dr. Hughes on 08/31/23. Please correlate with forthcoming stains and ancillary testing.Laboratory Developed Test (LDT) Disclaimer:Performance characteristics of immunohistochemical, immunofluorescent and chromogenic in-situ hybridization tests have been determined by the performing laboratory within [facility]???s [facility] Noguera [facility] [place] ([facility], [facility], [facility], [facility], [facility], [facility], or [facility]) in a manner consistent with CLIA requirements. One or more of these tests have not been cleared or approved by the FDA. RT-PLMI is regulated under CLIA as qualified to perform high-complexity testing. These tests are used for clinical purposes. They should not be regarded as investigational or for research. Positive and negative controls stain appropriately. Performed By: #### B MRT ####[facility] LABCLIA [id number] [address] [place] FINAL DIAGNOSIS Normal [facility] Comment on above: Order Comment: Speci men Type: BONE MARROW SPECIMENOrdering Facility: [facility] Address: [address] [place] [address] Result Comment: A-C. Bone marrow aspirate smears, touch imprints, core biopsy and clot section:-Persistent involvement by acute myeloid leukemia, pending stains and ancillary testing.-See comment.[facility] August 31, 2023 Performed By: #### B MRT ####[facility] LABIA [id number] [address] STATES OF [facility] FINAL PERFORMING LAB Normal [facility] Comment on above: Order Comment: Speci men Type: BONE MARROW SPECIMENOrdering Facility: [facility] Address: [address] [place] [address] Result Comment: Diag nostic interpretation performed at [facility], [address] [address] CLIA# [id number] Director: Boris Wood M.D. Performed By: #### B MRT ####[facility] LABIA [id number] [place] [address] [place] GROSS DESCRIPTION Normal [facility] Comment on above: Order Comment: Speci men Type: BONE MARROW SPECIMENOrdering Facility: [facility] Address: [address] [place] [address] Result Comment: A. B ONE MARROW ASPIRATE [...] submitted in one cassette.Gross examination performed at [facility], [facility] [address] August 30, 2023 6:48 PM Performed By: #### B MRT ####[facility] LABCLIA [id number] [facility] [id number] [place] MICROSCOPIC DESCRIPTION Normal [facility] Comment on above: Order Comment: Speci men Type: BONE MARROW SPECIMENOrdering Facility: [facility] Address: [address] [place] [address] Result Comment: GENNY PHERAL BLOOD: Not providedBONE [...] panel pending. Performed By: #### B MRT ####[facility] LABCLIA [id number] [place] [address] [place] BONE MARROW CHROMOSOME ANALo n 08-30-2023 CHROMOSOME BM Normal [facility] Comment on above: Order Comment: Order ing Facility: [facility] Address: [address] [place] [address] Result Comment: Edel knight Accession Number: [id number]: Avila MoorePathologist: Jeet Pathology No: [id number] diagnosis: AMLSpecimen Type: Bone MarrowReceived Date: 08/30/2023Number [...] pathologic correlation is recommended.As reviewed by Dilan Frazier, MDPerformed by [facility] HospitalPathology and Laboratory Medicine InstituteDivision of Molecular PathologyCytogenetics Lab, [id number] [place], [place] [address]Phone: Toll free: Performed By: #### C HRBM ####[facility] NBO TVSCLIA [id number] [place] [address] [place] BRIEF OP NOTon 08-30-2023 BRIEF OP NOT Normal [facility] CT ABD/PEL WO IVCONon 2022 CT ABD/PEL WO IVCON Normal [facility] CT BIOPSY BONE MARROW (HEMO) on 08-30-2023 CT BIOPSY BONE MARROW (HEMO) Normal [facility] CT CHEST WO IVCONon 08-30-20 CT CHEST WO IVCON Normal [facility] DNA EXTRACTION BONE MARROW ( BUFFY COAT)on 08-30-2023 DNA EXTRACTION BONE MARROW (BUFFY COAT) Normal [facility] Comment on above: Order Comment: Speci men Type: BONE MARROW SPECIMENOrdering Facility: [facility] Address: [address] [place] [address] Result Comment: This specimen was received and successfully processed for future DNA purification should molecular testing be needed. Specimens will be available for 3 years from date of collection.To order testing on this specimen for [facility] patients, please place an [facility] order for DNA and RNA Clinical Testing ([id number]). To order testing for patients outside of the [facility] system, please request DNA and RNA for Clinical Testing, order code [id number].If additional paperwork is required for testing, please send completed forms via secure email to . Performed By: #### N UCBUF ####CLARITY nooked LIMSCLIA [id number] [place] [address] [place] FLOW CYTOMETRY FOR LEUKEMIA/ LYMPHOMA (FCLL) PERFORMABLEon 08-30-2023 FLOW CYTOMETRY ORDER STATUS See Results in chart under F case ID Normal [facility] Comment on above: Order Comment: Speci men Type: BONE MARROW SPECIMENOrdering Facility: [facility] Address: [address] [place] [address] Performed By: #### F CLLP, FCLLRFLX ####[facility] LABCLIA [id number] [place] [address] [place] FLOW CYTOMETRY FOR LEUKEMIA/ LYMPHOMA (FCLL) REFLEXon 08-30-2023 DIAGNOSIS COMMENT Normal [facility] Comment on above: Order Comment: Speci men Type: BONE MARROW SPECIMENOrdering Facility: [facility] Address: [address] [place] [address] Result Comment: This test was developed and its performance characteristics determined by [facility]'s Aurelio JSuleman [facility] Pathology [facility] [place] (RT-PLMI). It has not been cleared or approved by the FDA. RT-PLMI is regulated under CLIA as qualified to perform high-complexity testing. This test is used for clinical purposes. It should not be regarded as investigational or for research. Performed By: #### F CLLP, FCLLRFLX ####[facility] LABCLIA [id number] [address] [place] FINAL PERFORMING LAB Normal [facility] Comment on above: Order Comment: Speci men Type: BONE MARROW SPECIMENOrdering Facility: [facility] Address: [address] [place] [address] Result Comment: Diag nostic interpretation performed at [facility], [address] [address] CLIA# [id number] Director: Boris Wood M.D. Performed By: #### F CLLP, FCLLRFLX ####[facility] LABCLIA [id number] [address] [place] FLOW CYTOMETRY RESULTS Normal [facility] Comment on above: Order Comment: Speci men Type: BONE MARROW SPECIMENOrdering Facility: [facility] Address: [address] [place] [address] Result Comment: Spec imen type: Bone marrow aspirateViability: 96%Results: % total eventsLymphocyte gate: 66Granulocyte gate: 5Monocyte gate: 1Blast gate: 6Flow Cytometry Bone Marrow ImmunophenotypingMarker Normal Cell Type Result (Blasts)CD2 T/NK cells NegativeCD3 T-cells NegativeCD4 T-cell subset NegativeCD5 T-cells NegativeCD7 T/NK-cells Dim (subset)CD8 T-cell subset CwgqaikkAF95 B-cell subset PoyzvxuoSR70v Myeloid TzeglyqzIV51 Myeloid ImfxutgmSK80 Monocytes PmwzzqclVN17 Myeloid PtxmqyjaDO86 B-cells HzjsojsqIB18 B-cells BsscsgypQU46 B-cells NistlypsJR69 Myeloid UgxwbndrRO87 Blasts BzgeozscPJ23 Activation TgrjjussLT60 Hough-leukocyte Positive (dim)CD56 T/NK-cells KfirherzOE99 Myeloid TkwbfenrSZ25 Myeloid OvgwvbjtCI772 Blasts Positive (subset)HLA-DR B-cells Positivekappa/lambda B-cells NegativeFlow [...] on this assay. Performed By: #### F [facility] ####[facility] LABCLIA [id number] [facility] [id number] [place] GROSS DESCRIPTION A. Bone Marrow Normal [facility] Comment on above: Order Comment: Speci men Type: BONE MARROW SPECIMENOrdering Facility: [facility] Address: [address] [place] [address] Result Comment: Rece ived 1 mL of bone marrow in heparin. Clots removed. Performed By: #### F CLLP, FCLLRFLX ####[facility] LABCLIA [id number] [place] [address] [place] INTERPRETATION Normal [facility] Comment on above: Order Comment: Speci men Type: BONE MARROW SPECIMENOrdering Facility: [facility] Address: [address] [place] [address] Result Comment: An i ncreased, atypical myeloid [...] 08/30/2023 Performed By: #### F CLLP, FCLLRFLX ####[facility] LABCLIA [id number] [place] [address] [place] FLT3 ITD HN BONE MARROWon CLARITY SIGNOUT PATHOLOGIST [id number] Normal [facility] Comment on above: Order Comment: Rochellei luz Type: BONE MARROW SPECIMENOrdering Facility: [facility] Address: [address] [place] [address] Performed By: #### F 3IM, HDMNGS ####CLARITY ILLUMINA LIMSCLIA [id number] [place] [address] [place] FLT3 ITD HN PANEL BONE MARROW Normal [facility] Comment on above: Order Comment: Rochellei men Type: BONE MARROW SPECIMENOrdering Facility: [facility] Address: [address] [place] [address] Result Comment: FLT3 Internal Tandem Duplication (ITD) Mutation TestingLaboratory Accession Number: [id number] Internal Tandem Duplication (ITD) mutation: Not DetectedComment:FLT3/ITD [...] from the specimen provided. Regions of the ZZZ8cuzejcae kinase receptor gene are subjected to the [...] in acute myeloid leukemia. N Engl J Med.2011Nov 22;366 (12):1079-89.3) Sandra H, Dee E, Sharon Vaughan, et al. Diagnosis and mangement ofAML in adults: 2017 ELN recommendations from an international expertpanel. Blood [phone] (2017).Disclaimer:This test was developed and its performance characteristics determinedby [facility]'s [facility] LaboratoryMed[facility] [place] ([facility]). It has not been cleared or approved bythe FDA. RT-[facility] is regulated under CLIA as certified to perform high-complexity testing. This test is used for clinical purposes. It shouldnot be regarded as investigational or for research.Testing and interpretation performed at [facility], [address] [place] [address]. CLIA Number: [id number] reviewed by Mihaela Flowers MD Performed By: #### F 3IM, HDMNGS ####[facility] ILLUMINA LIMSCLIA [id number] [place] [address] [place] HISTORY PHYSICALon HISTORY PHYSICAL Normal [facility] NURSING PROGon 08-30-2023 NURSING PROG Normal [facility] PT EDon 08-30-2023 PT ED Normal [facility] CNPNon 08-22-2023 CNPN Normal [facility] NURSING PROGon 08-22-2023 NURSING PROG Normal [facility] CNPNon 08-20-2023 CNPN Normal [facility] CNCOon 08-15-2023 CNCO Clinical report post ed in error Void Comment: BMT CALENDAR Letter Text Letter Text Normal [facility] CNPNon 08-15-2023 CNPN Normal [facility] CNSWon 08-15-2023 CNSW Normal [facility] CNPNon 08-13-2023 CNPN Normal [facility] CNPNon 08-09-2023 CNPN Normal [facility] CNPNon 08-08-2023 CNPN Normal [facility] CNPNon 08-07-2023 CNPN Normal [facility] CNCOon 08-06-2023 CNCO Clinical report post ed in error Void Comment: HPC Transplant LMN Letter Text Letter Text Normal [facility] CNCO Letter Text Normal [facility] CASE MANAGEMon 07-18-2023 CASE MANAGEM Normal [facility] CBC W Auto Differential pane l (Bld)on 07-18-2023 Basophils (Bld) [#/Vol] Normal [facility] Comment on above: Order Comment: Speci men Type: BLOOD SPECIMENOrdering Facility: [facility] Address: [address] [place] [address] Result Comment: Too Few Cells To Do Differential. Performed By: #### 5 7021-8 ####[facility] LABCLIA [id number] [place] [address] [place] Basophils/100 WBC (Bld) Normal [facility] Comment on above: Order Comment: Speci men Type: BLOOD SPECIMENOrdering Facility: [facility] Address: [address] [place] [address] Result Comment: Too Few Cells To Do Differential. Performed By: #### 5 7021-8 ####[facility] LABCLIA [id number] [place] [address] [place] Differential cell count method Nom (Bld) Auto Normal [facility] Comment on above: Order Comment: Speci men Type: BLOOD SPECIMENOrdering Facility: [facility] Address: [address] [place] [address] Performed By: #### 5 7021-8 ####[facility] LABCLIA [id number] [place] [address] [place] Eosinophils (Bld) [#/Vol] Normal [facility] Comment on above: Order Comment: Speci men Type: BLOOD SPECIMENOrdering Facility: [facility] Address: [address] [place] [address] Result Comment: Too Few Cells To Do Differential. Performed By: #### 5 7021-8 ####[facility] LABCLIA [id number] [place] [address] [place] Eosinophils/100 WBC (Bld) Normal [facility] Comment on above: Order Comment: Speci men Type: BLOOD SPECIMENOrdering Facility: [facility] Address: [address] [place] [address] Result Comment: Too Few Cells To Do Differential. Performed By: #### 5 7021-8 ####[facility] LABCLIA [id number] [place] [address] [place] Erythrocyte distribution width (RBC) [Ratio] 15.8 % High 11.5-15.0 [facility] Comment on above: Order Comment: Speci men Type: BLOOD SPECIMENOrdering Facility: [facility] Address: [address] [place] [address] Performed By: #### 5 7021-8 ####[facility] LABCLIA [id number] [place] [address] [place] Hematocrit (Bld) [Volume fraction] 22.8 % Low 36.0-46.0 [facility] Comment on above: Order Comment: Speci men Type: BLOOD SPECIMENOrdering Facility: [facility] Address: [address] [place] [address] Performed By: #### 5 7021-8 ####[facility] LABCLIA [id number] [place] [address] [place] Hemoglobin (Bld) [Mass/Vol] 7.8 g/dL Low 11.5-15.5 [facility] Comment on above: Order Comment: Speci men Type: BLOOD SPECIMENOrdering Facility: [facility] Address: [address] [place] [address] Performed By: #### 5 7021-8 ####[facility] LABIA [id number] [place] [address] [place] Immature granulocytes (Bld) [#/Vol] Normal [facility] Comment on above: Order Comment: Speci men Type: BLOOD SPECIMENOrdering Facility: [facility] Address: [address] [place] [address] Result Comment: Too Few Cells To Do Differential. Performed By: #### 5 7021-8 ####[facility] LABCLIA [id number] [place] [address] [place] Immature granulocytes/100 WBC (Bld) Normal [facility] Comment on above: Order Comment: Speci men Type: BLOOD SPECIMENOrdering Facility: [facility] Address: [address] [place] [address] Result Comment: Too Few Cells To Do Differential. Performed By: #### 5 7021-8 ####[facility] LABCLIA [id number] [place] [address] [place] Lymphocytes (Bld) [#/Vol] Normal [facility] Comment on above: Order Comment: Speci men Type: BLOOD SPECIMENOrdering Facility: [facility] Address: [address] [place] [address] Result Comment: Too Few Cells To Do Differential. Performed By: #### 5 7021-8 ####[facility] LABCLIA [id number] [place] [address] [place] Lymphocytes/100 WBC (Bld) Normal [facility] Comment on above: Order Comment: Speci men Type: BLOOD SPECIMENOrdering Facility: [facility] Address: [address] [place] [address] Result Comment: Too Few Cells To Do Differential. Performed By: #### 5 7021-8 ####[facility] LABCLIA [id number] [place] [address] [place] MCH (RBC) [Entitic mass] 30.1 pg Normal 26.0-34.0 [facility] Comment on above: Order Comment: Speci men Type: BLOOD SPECIMENOrdering Facility: [facility] Address: [address] [place] [address] Performed By: #### 5 7021-8 ####[facility] LABCLIA [id number] [place] [address] [place] MCHC (RBC) [Mass/Vol] 34.2 g/dL Normal 30.5-36.0 [facility] Comment on above: Order Comment: Speci men Type: BLOOD SPECIMENOrdering Facility: [facility] Address: [address] [place] [address] Performed By: #### 5 7021-8 ####[facility] LABCLIA [id number] [place] [address] [place] MCV (RBC) [Entitic vol] 88.0 fL Normal 80.0-100.0 [facility] Comment on above: Order Comment: Speci men Type: BLOOD SPECIMENOrdering Facility: [facility] Address: [address] [place] [address] Performed By: #### 5 7021-8 ####[facility] LABCLIA [id number] [place] [address] [place] Monocytes (Bld) [#/Vol] Normal [facility] Comment on above: Order Comment: Speci men Type: BLOOD SPECIMENOrdering Facility: [facility] Address: [address] [place] [address] Result Comment: Too Few Cells To Do Differential. Performed By: #### 5 7021-8 ####[facility] LABCLIA [id number] [place] [address] [place] Monocytes/100 WBC (Bld) Normal [facility] Comment on above: Order Comment: Speci men Type: BLOOD SPECIMENOrdering Facility: [facility] Address: [address] [place] [address] Result Comment: Too Few Cells To Do Differential. Performed By: #### 5 7021-8 ####[facility] LABCLIA [id number] [place] [address] [place] Neutrophils (Bld) [#/Vol] Normal [facility] Comment on above: Order Comment: Speci men Type: BLOOD SPECIMENOrdering Facility: [facility] Address: [address] [place] [address] Result Comment: Too Few Cells To Do Differential. Performed By: #### 5 7021-8 ####[facility] LABCLIA [id number] [place] [address] [place] Neutrophils/100 WBC (Bld) Normal [facility] Comment on above: Order Comment: Speci men Type: BLOOD SPECIMENOrdering Facility: [facility] Address: [address] [place] [address] Result Comment: Too Few Cells To Do Differential. Performed By: #### 5 7021-8 ####[facility] LABCLIA [id number] [place] [address] [place] Nucleated RBC (Bld) [#/Vol] 10*3/uL Normal <0.01 [facility] Comment on above: Order Comment: Speci men Type: BLOOD SPECIMENOrdering Facility: [facility] Address: [address] [place] [address] Performed By: #### 5 7021-8 ####[facility] LABIA [id number] [place] [address] [place] Nucleated RBC/100 WBC (Bld) [Ratio] 0.0 /100 WBC Normal [facility] Comment on above: Order Comment: Speci men Type: BLOOD SPECIMENOrdering Facility: [facility] Address: [address] [place] [address] Performed By: #### 5 7021-8 ####[facility] LABIA [id number] [place] [address] [place] Platelet mean volume (Bld) [Entitic vol] Normal [facility] Comment on above: Order Comment: Speci men Type: BLOOD SPECIMENOrdering Facility: [facility] Address: [address] [place] [address] Result Comment: Unab le to Report. Performed By: #### 5 7021-8 ####[facility] LABIA [id number] [place] [address] [place] Platelets (Bld) [#/Vol] 18 10*3/uL Low 150-400 [facility] Comment on above: Order Comment: Speci men Type: BLOOD SPECIMENOrdering Facility: [facility] Address: [address] [place] [address] Result Comment: Resu lts checked and verified.No clot detected. Performed By: #### 5 7021-8 ####[facility] LABCLIA [id number] [place] [address] [place] RBC (Bld) [#/Vol] 2.59 10*6/uL Low 3.90-5.20 [facility] Comment on above: Order Comment: Speci men Type: BLOOD SPECIMENOrdering Facility: [facility] Address: [address] [place] [address] Performed By: #### 5 7021-8 ####[facility] LABCLIA [id number] [place] [address] [place] WBC (Bld) [#/Vol] 0.47 10*3/uL Low 3.70-11.00 [facility] Comment on above: Order Comment: Speci men Type: BLOOD SPECIMENOrdering Facility: [facility] Address: [address] [place] [address] Result Comment: No c lot detected. Too Few Cells To Do Differential Performed By: #### 5 7021-8 ####[facility] LABIA [id number] [place] [address] [place] CNCOon 07-18-2023 CNCO Letter Text Normal [facility] CNDSon 07-18-2023 CNDS Normal [facility] CONSULT PROGon 07-18-2023 CONSULT PROG Normal [facility] Comprehensive metabolic 2000 panelon 07-18-2023 Albumin [Mass/Vol] 2.3 g/dL Low 3.9-4.9 [facility] Comment on above: Order Comment: Speci men Type: BLOOD SPECIMENOrdering Facility: [facility] Address: [address] [place] [address] Performed By: #### 2 4323-8, 86881-4 ####[facility] LABCLIA [id number] [place] [address] [place] ALP [Catalytic activity/Vol] 50 U/L Normal 34-123 [facility] Comment on above: Order Comment: Speci men Type: BLOOD SPECIMENOrdering Facility: [facility] Address: [address] [place] [address] Performed By: #### 2 4322-8, ####[facility] LABCLIA [id number] [place] [id number] [place] ALT [Catalytic activity/Vol] 14 U/L Normal 7-38 [facility] Comment on above: Order Comment: Speci men Type: BLOOD SPECIMENOrdering Facility: [facility] Address: [address] [place] [address] Performed By: #### 2 8, ####[facility] LABCLIA [id number] [place] [address] [place] Anion gap [Moles/Vol] 8 mmol/L Low 9-18 [facility] Comment on above: Order Comment: Speci men Type: BLOOD SPECIMENOrdering Facility: [facility] Address: [address] [place] [address] Performed By: #### 2 4323-04, ####[facility] LABCLIA [id number] [place] [address] [place] AST [Catalytic activity/Vol] 14 U/L Normal 13-35 [facility] Comment on above: Order Comment: Speci men Type: BLOOD SPECIMENOrdering Facility: [facility] Address: [address] [place] [address] Performed By: #### 2 4322-8, ####[facility] LABCLIA [id number] [place] [address] [place] Bilirubin [Mass/Vol] 0.3 mg/dL Normal 0.2-1.3 [facility] Comment on above: Order Comment: Speci men Type: BLOOD SPECIMENOrdering Facility: [facility] Address: [address] [place] [address] Performed By: #### 2 4322-8, ####[facility] LABCLIA [id number] [address] [address] [place] Calcium [Mass/Vol] 7.2 mg/dL Low 8.5-10.2 [facility] Comment on above: Order Comment: Speci men Type: BLOOD SPECIMENOrdering Facility: [facility] Address: [address] [place] [address] Performed By: #### 2 4323-04, ####[facility] LABCLIA [id number] [place] [address] [place] Chloride [Moles/Vol] 110 mmol/L High 97-105 [facility] Comment on above: Order Comment: Speci men Type: BLOOD SPECIMENOrdering Facility: [facility] Address: [address] [place] [address] Performed By: #### 2 4323-04, ####[facility] LABCLIA [id number] [place] [address] [place] CO2 [Moles/Vol] 23 mmol/L Normal 22-30 [facility] Comment on above: Order Comment: Speci men Type: BLOOD SPECIMENOrdering Facility: [facility] Address: [address] [place] [address] Performed By: #### 2 4323-04, ####[facility] LABCLIA [id number] [place] [address] [place] Creatinine [Mass/Vol] 0.66 mg/dL Normal 0.58-0.96 [facility] Comment on above: Order Comment: Speci men Type: BLOOD SPECIMENOrdering Facility: [facility] Address: [address] [place] [address] Performed By: #### 2 43211-08, ####[facility] LABCLIA [id number] [place] [id number] [place] Creatinine and Glomerular filtration rate.predicted panel (S/P/Bld) 95 mL/min/1.73m??? Normal >=60 [facility] Comment on above: Order Comment: Elvia escboar Type: BLOOD SPECIMENOrdering Facility: [facility] Address: [address] [place] [address] Result Comment: Berenice mated Glomerular Filtration Rate [...] actual GFR. Performed By: #### 2 4323-8, 16209-5 ####[facility] LABIA [id number] [place] [address] [place] Glucose [Mass/Vol] 85 mg/dL Normal 74-99 [facility] Comment on above: Order Comment: Elvia escobar Type: BLOOD SPECIMENOrdering Facility: [facility] Address: [address] [place] [address] Result Comment: The [place] [employer] (ADA) provides guidance for cutoff [...] Standards of Medical Care in Diabetes 2016, [place] [employer]. Diabetes Care. 2016.39(Suppl 1). Performed By: #### 2 4323-8, 90966-4 ####[facility] LABIA [id number] [place] [address] [place] Potassium [Moles/Vol] 2.9 mmol/L Low 3.7-5.1 [facility] Comment on above: Order Comment: Speci men Type: BLOOD SPECIMENOrdering Facility: [facility] Address: [address] [place] [address] Performed By: #### 2 4323-8, ####[facility] LABCLIA [id number] [place] [address] [place] Protein [Mass/Vol] 4.1 g/dL Low 6.3-8.0 [facility] Comment on above: Order Comment: Speci men Type: BLOOD SPECIMENOrdering Facility: [facility] Address: [address] [place] [address] Performed By: #### 2 432-8, ####[facility] LABCLIA [id number] [place] [address] [place] Sodium [Moles/Vol] 141 mmol/L Normal 136-144 [facility] Comment on above: Order Comment: Speci men Type: BLOOD SPECIMENOrdering Facility: [facility] Address: [address] [place] [address] Performed By: #### 2 4322-8, ####[facility] LABCLIA [id number] [place] [address] [place] Urea nitrogen [Mass/Vol] 5 mg/dL Low 7-21 [facility] Comment on above: Order Comment: Speci men Type: BLOOD SPECIMENOrdering Facility: [facility] Address: [address] [place] [address] Performed By: #### 2 4323-8, ####[facility] LABIA [id number] [place] [id number] [place] Magnesium SerPl-mCncon 07-18 Magnesium [Mass/Vol] 1.9 mg/dL Normal 1.7-2.3 [facility] Comment on above: Order Comment: Speci men Type: BLOOD SPECIMENOrdering Facility: [facility] Address: [address] [place] [address] Performed By: #### 2 4323-8, 13266-7 ####[facility] LABCLIA [id number] [place] [address] [place] POTASSIUM BLDon 07-18-2023 Potassium [Moles/Vol] 4.0 mmol/L Normal 3.7-5.1 [facility] Comment on above: Order Comment: Speci men Type: BLOOD SPECIMENOrdering Facility: [facility] Address: [address] [place] [address] Performed By: #### K 1 ####[facility] LABCLIA [id number] [place] [address] [place] CASE MGT INIT ASSESon 2022 CASE MGT INIT ASSES Normal [facility] CASE MGT INIT ASSES Normal [facility] CBC W Auto Differential pane l (Bld)on 07-17-2023 Basophils (Bld) [#/Vol] Normal [facility] Comment on above: Order Comment: Speci men Type: BLOOD SPECIMENOrdering Facility: [facility] Address: [address] [place] [address] Result Comment: Too Few Cells To Do Differential. Performed By: #### 5 7021-8 ####[facility] LABCLIA [id number] [place] [address] [place] Basophils/100 WBC (Bld) Normal [facility] Comment on above: Order Comment: Speci men Type: BLOOD SPECIMENOrdering Facility: [facility] Address: [address] [place] [address] Result Comment: Too Few Cells To Do Differential. Performed By: #### 5 7021-8 ####[facility] LABCLIA [id number] [place] [address] [place] Differential cell count method Nom (Bld) Auto Normal [facility] Comment on above: Order Comment: Speci men Type: BLOOD SPECIMENOrdering Facility: [facility] Address: [address] [place] [address] Performed By: #### 5 7021-8 ####[facility] LABCLIA [id number] [place] [address] [place] Eosinophils (Bld) [#/Vol] Normal [facility] Comment on above: Order Comment: Speci men Type: BLOOD SPECIMENOrdering Facility: [facility] Address: [address] [place] [address] Result Comment: Too Few Cells To Do Differential. Performed By: #### 5 7021-8 ####[facility] LABCLIA [id number] [place] [address] [place] Eosinophils/100 WBC (Bld) Normal [facility] Comment on above: Order Comment: Speci men Type: BLOOD SPECIMENOrdering Facility: [facility] Address: [address] [place] [address] Result Comment: Too Few Cells To Do Differential. Performed By: #### 5 7021-8 ####[facility] LABCLIA [id number] [place] [address] [place] Erythrocyte distribution width (RBC) [Ratio] 15.9 % High 11.5-15.0 [facility] Comment on above: Order Comment: Speci men Type: BLOOD SPECIMENOrdering Facility: [facility] Address: [address] [place] [address] Performed By: #### 5 7021-8 ####[facility] LABCLIA [id number] [place] [address] [place] Hematocrit (Bld) [Volume fraction] 23.0 % Low 36.0-46.0 [facility] Comment on above: Order Comment: Speci men Type: BLOOD SPECIMENOrdering Facility: [facility] Address: [address] [place] [address] Performed By: #### 5 7021-8 ####[facility] LABCLIA [id number] [place] [address] [place] Hemoglobin (Bld) [Mass/Vol] 7.9 g/dL Low 11.5-15.5 [facility] Comment on above: Order Comment: Speci men Type: BLOOD SPECIMENOrdering Facility: [facility] Address: [address] [place] [address] Performed By: #### 5 7021-8 ####[facility] LABCLIA [id number] [place] [address] [place] Immature granulocytes (Bld) [#/Vol] Normal [facility] Comment on above: Order Comment: Speci men Type: BLOOD SPECIMENOrdering Facility: [facility] Address: [address] [place] [address] Result Comment: Too Few Cells To Do Differential. Performed By: #### 5 7021-8 ####[facility] LABCLIA [id number] [place] [address] [place] Immature granulocytes/100 WBC (Bld) Normal [facility] Comment on above: Order Comment: Speci men Type: BLOOD SPECIMENOrdering Facility: [facility] Address: [address] [place] [address] Result Comment: Too Few Cells To Do Differential. Performed By: #### 5 7021-8 ####[facility] LABCLIA [id number] [place] [address] [place] Lymphocytes (Bld) [#/Vol] Normal [facility] Comment on above: Order Comment: Speci men Type: BLOOD SPECIMENOrdering Facility: [facility] Address: [address] [place] [address] Result Comment: Too Few Cells To Do Differential. Performed By: #### 5 7021-8 ####[facility] LABCLIA [id number] [place] [address] [place] Lymphocytes/100 WBC (Bld) Normal [facility] Comment on above: Order Comment: Speci men Type: BLOOD SPECIMENOrdering Facility: [facility] Address: [address] [place] [address] Result Comment: Too Few Cells To Do Differential. Performed By: #### 5 7021-8 ####[facility] LABIA [id number] [place] [address] [place] MCH (RBC) [Entitic mass] 29.9 pg Normal 26.0-34.0 [facility] Comment on above: Order Comment: Speci men Type: BLOOD SPECIMENOrdering Facility: [facility] Address: [address] [place] [address] Performed By: #### 5 7021-8 ####[facility] LABIA [id number] [place] [address] [place] MCHC (RBC) [Mass/Vol] 34.3 g/dL Normal 30.5-36.0 [facility] Comment on above: Order Comment: Speci men Type: BLOOD SPECIMENOrdering Facility: [facility] Address: [address] [place] [address] Performed By: #### 5 7021-8 ####[facility] LABIA [id number] [place] [address] [place] MCV (RBC) [Entitic vol] 87.1 fL Normal 80.0-100.0 [facility] Comment on above: Order Comment: Speci men Type: BLOOD SPECIMENOrdering Facility: [facility] Address: [address] [place] [address] Performed By: #### 5 7021-8 ####[facility] LABIA [id number] [place] [address] [place] Monocytes (Bld) [#/Vol] Normal [facility] Comment on above: Order Comment: Speci men Type: BLOOD SPECIMENOrdering Facility: [facility] Address: [address] [place] [address] Result Comment: Too Few Cells To Do Differential. Performed By: #### 5 7021-8 ####[facility] LABIA [id number] [place] [address] [place] Monocytes/100 WBC (Bld) Normal [facility] Comment on above: Order Comment: Speci men Type: BLOOD SPECIMENOrdering Facility: [facility] Address: [address] [place] [address] Result Comment: Too Few Cells To Do Differential. Performed By: #### 5 7021-8 ####[facility] LABCLIA [id number] [place] [address] [place] Neutrophils (Bld) [#/Vol] Normal [facility] Comment on above: Order Comment: Speci men Type: BLOOD SPECIMENOrdering Facility: [facility] Address: [address] [place] [address] Result Comment: Too Few Cells To Do Differential. Performed By: #### 5 7021-8 ####[facility] LABCLIA [id number] [place] [address] [place] Neutrophils/100 WBC (Bld) Normal [facility] Comment on above: Order Comment: Speci men Type: BLOOD SPECIMENOrdering Facility: [facility] Address: [address] [place] [address] Result Comment: Too Few Cells To Do Differential. Performed By: #### 5 7021-8 ####[facility] LABCLIA [id number] [place] [address] [place] Nucleated RBC (Bld) [#/Vol] 10*3/uL Normal <0.01 [facility] Comment on above: Order Comment: Speci men Type: BLOOD SPECIMENOrdering Facility: [facility] Address: [address] [place] [address] Performed By: #### 5 7021-8 ####[facility] LABCLIA [id number] [place] [address] [place] Nucleated RBC/100 WBC (Bld) [Ratio] 0.0 /100 WBC Normal [facility] Comment on above: Order Comment: Speci men Type: BLOOD SPECIMENOrdering Facility: [facility] Address: [address] [place] [address] Performed By: #### 5 7021-8 ####[facility] LABIA [id number] [place] [address] [place] Platelet mean volume (Bld) [Entitic vol] Normal [facility] Comment on above: Order Comment: Speci men Type: BLOOD SPECIMENOrdering Facility: [facility] Address: [address] [place] [address] Result Comment: Unab le to Report. Performed By: #### 5 7021-8 ####[facility] [id number] [place] [address] [place] Platelets (Bld) [#/Vol] 8 10*3/uL Critically low 150-400 [facility] Comment on above: Order Comment: Speci men Type: BLOOD SPECIMENOrdering Facility: [facility] Address: [address] [place] [address] Result Comment: Resu lts checked and verified.No clot detected. Performed By: #### 5 7021-8 ####[facility] [id number] [place] [address] [place] RBC (Bld) [#/Vol] 2.64 10*6/uL Low 3.90-5.20 [facility] Comment on above: Order Comment: Speci men Type: BLOOD SPECIMENOrdering Facility: [facility] Address: [address] [place] [address] Performed By: #### 5 7021-8 ####[facility] [id number] [place] [address] [place] WBC (Bld) [#/Vol] 0.48 10*3/uL Low 3.70-11.00 [facility] Comment on above: Order Comment: Speci men Type: BLOOD SPECIMENOrdering Facility: [facility] Address: [address] [place] [address] Result Comment: Resu lts checked and verified.No clot detected. Too Few Cells To Do Differential Performed By: #### 5 7021-8 ####[facility] LABCLIA [id number] [address] [address] [place] Comprehensive metabolic 2000 panelon 07-17-2023 Albumin [Mass/Vol] 2.3 g/dL Low 3.9-4.9 [facility] Comment on above: Order Comment: Speci men Type: BLOOD SPECIMENOrdering Facility: [facility] Address: [address] [place] [address] Performed By: #### 2 432-8, ####[facility] LABCLIA [id number] [place] [address] [place] ALP [Catalytic activity/Vol] 61 U/L Normal 34-123 [facility] Comment on above: Order Comment: Speci men Type: BLOOD SPECIMENOrdering Facility: [facility] Address: [address] [place] [address] Performed By: #### 2 432-8, ####[facility] LABCLIA [id number] [place] [address] [place] ALT [Catalytic activity/Vol] 15 U/L Normal 7-38 [facility] Comment on above: Order Comment: Speci men Type: BLOOD SPECIMENOrdering Facility: [facility] Address: [address] [place] [id number] Performed By: #### 2 4328, ####[facility] LABCLIA [id number] [address] [address] [place] Anion gap [Moles/Vol] 11 mmol/L Normal 9-18 [facility] Comment on above: Order Comment: Speci men Type: BLOOD SPECIMENOrdering Facility: [facility] Address: [address] [place] [id number] Performed By: #### 2 4323-8, ####[facility] LABCLIA [id number] [place] [address] [place] AST [Catalytic activity/Vol] 15 U/L Normal 13-35 [facility] Comment on above: Order Comment: Speci men Type: BLOOD SPECIMENOrdering Facility: [facility] Address: [address] [place] [address] Performed By: #### 2 4323-8, ####[facility] LABCLIA [id number] [place] [address] [place] Bilirubin [Mass/Vol] 0.6 mg/dL Normal 0.2-1.3 [facility] Comment on above: Order Comment: Speci men Type: BLOOD SPECIMENOrdering Facility: [facility] Address: [address] [place] [address] Performed By: #### 2 432-8, ####[facility] LABCLIA [id number] [place] [address] [place] Calcium [Mass/Vol] 8.1 mg/dL Low 8.5-10.2 [facility] Comment on above: Order Comment: Speci men Type: BLOOD SPECIMENOrdering Facility: [facility] Address: [address] [place] [address] Performed By: #### 2 4323-8, ####[facility] LABCLIA [id number] [place] [address] [place] Chloride [Moles/Vol] 106 mmol/L High 97-105 [facility] Comment on above: Order Comment: Speci men Type: BLOOD SPECIMENOrdering Facility: [facility] Address: [address] [place] [address] Performed By: #### 2 4323-8, ####[facility] LABCLIA [id number] [place] [address] [place] CO2 [Moles/Vol] 21 mmol/L Low 22-30 [facility] Comment on above: Order Comment: Speci men Type: BLOOD SPECIMENOrdering Facility: [facility] Address: [address] [place] [address] Performed By: #### 2 4323-8, ####[facility] LABIA [id number] [address] [address] [place] Creatinine [Mass/Vol] 0.78 mg/dL Normal 0.58-0.96 [facility] Comment on above: Order Comment: Speci men Type: BLOOD SPECIMENOrdering Facility: [facility] Address: [address] [place] [address] Performed By: #### 2 4323-8, ####[facility] LABIA [id number] [place] [address] [place] Creatinine and Glomerular filtration rate.predicted panel (S/P/Bld) 82 mL/min/1.73m??? Normal >=60 [facility] Comment on above: Order Comment: Speci men Type: BLOOD SPECIMENOrdering Facility: [facility] Address: [address] [place] [address] Result Comment: Berenice mated Glomerular Filtration Rate [...] actual GFR. Performed By: #### 2 4323-8, ####[facility] LABIA [id number] [place] [id number] [place] Glucose [Mass/Vol] 104 mg/dL High 74-99 [facility] Comment on above: Order Comment: Speci men Type: BLOOD SPECIMENOrdering Facility: [facility] Address: [address] [place] [address] Result Comment: The [place] [employer] (ADA) provides guidance for cutoff [...] Standards of Medical Care in Diabetes 2016, [place] [employer]. Diabetes Care. 2016.39(Suppl 1). Performed By: #### 2 43211-08, ####[facility] LABCLIA [id number] [place] [address] [place] Potassium [Moles/Vol] 3.5 mmol/L Low 3.7-5.1 [facility] Comment on above: Order Comment: Speci men Type: BLOOD SPECIMENOrdering Facility: [facility] Address: [address] [place] [address] Performed By: #### 2 4323-04, ####[facility] LABCLIA [id number] [place] [address] [place] Protein [Mass/Vol] 4.5 g/dL Low 6.3-8.0 [facility] Comment on above: Order Comment: Speci men Type: BLOOD SPECIMENOrdering Facility: [facility] Address: [address] [place] [address] Performed By: #### 2 4323-04, ####[facility] LABCLIA [id number] [place] [id number] [place] Sodium [Moles/Vol] 138 mmol/L Normal 136-144 [facility] Comment on above: Order Comment: Speci men Type: BLOOD SPECIMENOrdering Facility: [facility] Address: [address] [place] [address] Performed By: #### 2 4323-04, ####[facility] LABCLIA [id number] [place] [address] [place] Urea nitrogen [Mass/Vol] 7 mg/dL Normal 7-21 [facility] Comment on above: Order Comment: Speci men Type: BLOOD SPECIMENOrdering Facility: [facility] Address: [address] [place] [address] Performed By: #### 2 4323-8, 66187-8 ####[facility] LABIA [id number] [place] [address] [place] Magnesium SerPl-mCncon 07-17 Magnesium [Mass/Vol] 2.0 mg/dL Normal 1.7-2.3 [facility] Comment on above: Order Comment: Speci men Type: BLOOD SPECIMENOrdering Facility: [facility] Address: [address] [place] [address] Performed By: #### 2 4323-8, 23458-1 ####[facility] [id number] [place] [address] [place] SOCIAL WORKon 07-17-2023 SOCIAL WORK Normal [facility] THERAPY NTon 07-17-2023 THERAPY NT Normal [facility] CBC W Auto Differential pane l (Bld)on 07-16-2023 Basophils (Bld) [#/Vol] Normal [facility] Comment on above: Order Comment: Speci men Type: BLOOD SPECIMENOrdering Facility: [facility] Address: [address] [place] [address] Result Comment: Too Few Cells To Do Differential. Performed By: #### 5 7021-8 ####[facility] LABIA [id number] [place] [address] [place] Basophils/100 WBC (Bld) Normal [facility] Comment on above: Order Comment: Speci men Type: BLOOD SPECIMENOrdering Facility: [facility] Address: [address] [place] [address] Result Comment: Too Few Cells To Do Differential. Performed By: #### 5 7021-8 ####[facility] LABCLIA [id number] [place] [address] [place] Differential cell count method Nom (Bld) Auto Normal [facility] Comment on above: Order Comment: Speci men Type: BLOOD SPECIMENOrdering Facility: [facility] Address: [address] [place] [address] Performed By: #### 5 7021-8 ####[facility] LABCLIA [id number] [place] [address] [place] Eosinophils (Bld) [#/Vol] Normal [facility] Comment on above: Order Comment: Speci men Type: BLOOD SPECIMENOrdering Facility: [facility] Address: [address] [place] [address] Result Comment: Too Few Cells To Do Differential. Performed By: #### 5 7021-8 ####[facility] LABCLIA [id number] [place] [address] [place] Eosinophils/100 WBC (Bld) Normal [facility] Comment on above: Order Comment: Speci men Type: BLOOD SPECIMENOrdering Facility: [facility] Address: [address] [place] [address] Result Comment: Too Few Cells To Do Differential. Performed By: #### 5 7021-8 ####[facility] LABCLIA [id number] [place] [address] [place] Erythrocyte distribution width (RBC) [Ratio] 14.8 % Normal 11.5-15.0 [facility] Comment on above: Order Comment: Speci men Type: BLOOD SPECIMENOrdering Facility: [facility] Address: [address] [place] [address] Performed By: #### 5 7021-8 ####[facility] LABCLIA [id number] [place] [address] [place] Hematocrit (Bld) [Volume fraction] 20.0 % Low 36.0-46.0 [facility] Comment on above: Order Comment: Speci men Type: BLOOD SPECIMENOrdering Facility: [facility] Address: [address] [place] [address] Performed By: #### 5 7021-8 ####[facility] LABCLIA [id number] [place] [address] [place] Hemoglobin (Bld) [Mass/Vol] 6.9 g/dL Low 11.5-15.5 [facility] Comment on above: Order Comment: Speci men Type: BLOOD SPECIMENOrdering Facility: [facility] Address: [address] [place] [address] Performed By: #### 5 7021-8 ####[facility] LABIA [id number] [place] [address] [place] Immature granulocytes (Bld) [#/Vol] Normal [facility] Comment on above: Order Comment: Speci men Type: BLOOD SPECIMENOrdering Facility: [facility] Address: [address] [place] [address] Result Comment: Too Few Cells To Do Differential. Performed By: #### 5 7021-8 ####[facility] LABIA [id number] [place] [address] [place] Immature granulocytes/100 WBC (Bld) Normal [facility] Comment on above: Order Comment: Speci men Type: BLOOD SPECIMENOrdering Facility: [facility] Address: [address] [place] [address] Result Comment: Too Few Cells To Do Differential. Performed By: #### 5 7021-8 ####[facility] LABIA [id number] [place] [address] [place] Lymphocytes (Bld) [#/Vol] Normal [facility] Comment on above: Order Comment: Speci men Type: BLOOD SPECIMENOrdering Facility: [facility] Address: [address] [place] [address] Result Comment: Too Few Cells To Do Differential. Performed By: #### 5 7021-8 ####[facility] LABCLIA [id number] [place] [address] [place] Lymphocytes/100 WBC (Bld) Normal [facility] Comment on above: Order Comment: Speci men Type: BLOOD SPECIMENOrdering Facility: [facility] Address: [address] [place] [address] Result Comment: Too Few Cells To Do Differential. Performed By: #### 5 7021-8 ####[facility] LABIA [id number] [place] [address] [place] MCH (RBC) [Entitic mass] 30.4 pg Normal 26.0-34.0 [facility] Comment on above: Order Comment: Speci men Type: BLOOD SPECIMENOrdering Facility: [facility] Address: [address] [place] [address] Performed By: #### 5 7021-8 ####[facility] LABIA [id number] [place] [address] [place] MCHC (RBC) [Mass/Vol] 34.5 g/dL Normal 30.5-36.0 [facility] Comment on above: Order Comment: Speci men Type: BLOOD SPECIMENOrdering Facility: [facility] Address: [address] [place] [address] Performed By: #### 5 7021-8 ####[facility] LABIA [id number] [place] [address] [place] MCV (RBC) [Entitic vol] 88.1 fL Normal 80.0-100.0 [facility] Comment on above: Order Comment: Speci men Type: BLOOD SPECIMENOrdering Facility: [facility] Address: [address] [place] [address] Performed By: #### 5 7021-8 ####[facility] LABIA [id number] [place] [address] [place] Monocytes (Bld) [#/Vol] Normal [facility] Comment on above: Order Comment: Speci men Type: BLOOD SPECIMENOrdering Facility: [facility] Address: [address] [place] [address] Result Comment: Too Few Cells To Do Differential. Performed By: #### 5 7021-8 ####[facility] LABCLIA [id number] [place] [address] [place] Monocytes/100 WBC (Bld) Normal [facility] Comment on above: Order Comment: Speci men Type: BLOOD SPECIMENOrdering Facility: [facility] Address: [address] [place] [address] Result Comment: Too Few Cells To Do Differential. Performed By: #### 5 7021-8 ####[facility] LABCLIA [id number] [place] [address] [place] Neutrophils (Bld) [#/Vol] Normal [facility] Comment on above: Order Comment: Speci men Type: BLOOD SPECIMENOrdering Facility: [facility] Address: [address] [place] [address] Result Comment: Too Few Cells To Do Differential. Performed By: #### 5 7021-8 ####[facility] LABCLIA [id number] [place] [address] [place] Neutrophils/100 WBC (Bld) Normal [facility] Comment on above: Order Comment: Speci men Type: BLOOD SPECIMENOrdering Facility: [facility] Address: [address] [place] [address] Result Comment: Too Few Cells To Do Differential. Performed By: #### 5 7021-8 ####[facility] LABCLIA [id number] [place] [address] [place] Nucleated RBC (Bld) [#/Vol] 10*3/uL Normal <0.01 [facility] Comment on above: Order Comment: Speci men Type: BLOOD SPECIMENOrdering Facility: [facility] Address: [address] [place] [address] Performed By: #### 5 7021-8 ####[facility] LABCLIA [id number] [place] [address] [place] Nucleated RBC/100 WBC (Bld) [Ratio] 0.0 /100 WBC Normal [facility] Comment on above: Order Comment: Speci men Type: BLOOD SPECIMENOrdering Facility: [facility] Address: [address] [place] [address] Performed By: #### 5 7021-8 ####[facility] LABIA [id number] [place] [address] [place] Platelet mean volume (Bld) [Entitic vol] Normal [facility] Comment on above: Order Comment: Speci men Type: BLOOD SPECIMENOrdering Facility: [facility] Address: [address] [place] [address] Result Comment: Unab le to Report. Performed By: #### 5 7021-8 ####[facility] LABIA [id number] [place] [address] [place] Platelets (Bld) [#/Vol] 10 10*3/uL Low 150-400 [facility] Comment on above: Order Comment: Speci men Type: BLOOD SPECIMENOrdering Facility: [facility] Address: [address] [place] [address] Result Comment: No c lot detected.Results checked and verified. Performed By: #### 5 7021-8 ####[facility] LABIA [id number] [place] [address] [place] RBC (Bld) [#/Vol] 2.27 10*6/uL Low 3.90-5.20 [facility] Comment on above: Order Comment: Speci men Type: BLOOD SPECIMENOrdering Facility: [facility] Address: [address] [place] [address] Performed By: #### 5 7021-8 ####[facility] LABIA [id number] [place] [address] [id number] [address] [place] WBC (Bld) [#/Vol] 0.38 10*3/uL Low 3.70-11.00 [facility] Comment on above: Order Comment: Speci men Type: BLOOD SPECIMENOrdering Facility: [facility] Address: [address] [place] [address] Result Comment: No c lot detected. Too Few Cells To Do Differential Performed By: #### 5 7021-8 ####[facility] LABCLIA [id number] [place] [address] [place] [facility] Comprehensive metabolic 2000 panelon 07-16-2023 Albumin [Mass/Vol] 2.5 g/dL Low 3.9-4.9 [facility] Comment on above: Order Comment: Speci men Type: BLOOD SPECIMENOrdering Facility: [facility] Address: [address] [place] [address] Performed By: #### 2 4323-8, ####[facility] LABCLIA [id number] [place] [address] [place] ALP [Catalytic activity/Vol] 60 U/L Normal 34-123 [facility] Comment on above: Order Comment: Speci men Type: BLOOD SPECIMENOrdering Facility: [facility] Address: [address] [place] [address] Performed By: #### 2 4323-8, 06610-1 ####[facility] LABCLIA [id number] [place] [address] [place] ALT [Catalytic activity/Vol] 12 U/L Normal 7-38 [facility] Comment on above: Order Comment: Speci men Type: BLOOD SPECIMENOrdering Facility: [facility] Address: [address] [place] [address] Performed By: #### 2 4323-8, ####[facility] LABCLIA [id number] [place] [address] [place] Anion gap [Moles/Vol] 9 mmol/L Normal 9-18 [facility] Comment on above: Order Comment: Speci men Type: BLOOD SPECIMENOrdering Facility: [facility] Address: [address] [place] [address] Performed By: #### 2 432-8, ####[facility] LABCLIA [id number] [place] [address] [place] AST [Catalytic activity/Vol] 12 U/L Low 13-35 [facility] Comment on above: Order Comment: Speci men Type: BLOOD SPECIMENOrdering Facility: [facility] Address: [address] [place] [address] Performed By: #### 2 432-8, ####[facility] LABCLIA [id number] [place] [address] [place] Bilirubin [Mass/Vol] 0.5 mg/dL Normal 0.2-1.3 [facility] Comment on above: Order Comment: Speci men Type: BLOOD SPECIMENOrdering Facility: [facility] Address: [address] [place] [address] Performed By: #### 2 432-8, ####[facility] LABCLIA [id number] [place] [address] [place] Calcium [Mass/Vol] 7.8 mg/dL Low 8.5-10.2 [facility] Comment on above: Order Comment: Speci men Type: BLOOD SPECIMENOrdering Facility: [facility] Address: [address] [place] [address] Performed By: #### 2 4323-8, ####[facility] LABCLIA [id number] [place] [address] [place] Chloride [Moles/Vol] 105 mmol/L Normal 97-105 [facility] Comment on above: Order Comment: Speci men Type: BLOOD SPECIMENOrdering Facility: [facility] Address: [address] [place] [address] Performed By: #### 2 4323-8, ####[facility] LABCLIA [id number] [place] [address] [place] CO2 [Moles/Vol] 23 mmol/L Normal 22-30 [facility] Comment on above: Order Comment: Speci men Type: BLOOD SPECIMENOrdering Facility: [facility] Address: [address] [place] [address] Performed By: #### 2 43211-08, ####[facility] LABCLIA [id number] [place] [address] [place] Creatinine [Mass/Vol] 0.79 mg/dL Normal 0.58-0.96 [facility] Comment on above: Order Comment: Speci men Type: BLOOD SPECIMENOrdering Facility: [facility] Address: [address] [place] [address] Performed By: #### 2 43211-08, ####[facility] [facility] [id number] [place] [address] [place] Creatinine and Glomerular filtration rate.predicted panel (S/P/Bld) 81 mL/min/1.73m??? Normal >=60 [facility] Comment on above: Order Comment: Speci men Type: BLOOD SPECIMENOrdering Facility: [facility] Address: [address] [place] [address] Result Comment: Berenice mated Glomerular Filtration Rate [...] actual GFR. Performed By: #### 2 4323-8, ####[facility] LABCLIA [id number] [place] [id number] [place] Glucose [Mass/Vol] 96 mg/dL Normal 74-99 [facility] Comment on above: Order Comment: Speci men Type: BLOOD SPECIMENOrdering Facility: [facility] Address: [address] [place] [address] Result Comment: The [place] [employer] (ADA) provides guidance for cutoff [...] Standards of Medical Care in Diabetes 2016, [place] [employer]. Diabetes Care. 2016.39(Suppl 1). Performed By: #### 2 4323-8, ####[facility] LABIA [id number] [place] [address] [place] Potassium [Moles/Vol] 3.2 mmol/L Low 3.7-5.1 [facility] Comment on above: Order Comment: Rochellei men Type: BLOOD SPECIMENOrdering Facility: [facility] Address: [address] [place] [address] Performed By: #### 2 4323-8, ####[facility] LABIA [id number] [place] [address] [place] Protein [Mass/Vol] 4.5 g/dL Low 6.3-8.0 [facility] Comment on above: Order Comment: Speci men Type: BLOOD SPECIMENOrdering Facility: [facility] Address: [address] [place] [address] Performed By: #### 2 43238, ####[facility] LABCLIA [id number] [place] [address] [place] Sodium [Moles/Vol] 137 mmol/L Normal 136-144 [facility] Comment on above: Order Comment: Speci men Type: BLOOD SPECIMENOrdering Facility: [facility] Address: [address] [place] [address] Performed By: #### 2 4323-8, ####[facility] LABCLIA [id number] [place] [address] [place] Urea nitrogen [Mass/Vol] 9 mg/dL Normal 7-21 [facility] Comment on above: Order Comment: Speci men Type: BLOOD SPECIMENOrdering Facility: [facility] Address: [address] [place] [address] Performed By: #### 2 4323-8, ####[facility] LABCLIA [id number] [place] [address] [place] Gastrointestinal pathogens p jordan KIAH+probe (Stl)on 07-16-2023 ADENOVIRUS F 40/41 Not detected Normal Not Detected [facility] Comment on above: Order Comment: Speci men Type: STOOL SPECIMENOrdering Facility: [facility] Address: [address] [place] [address] Performed By: #### 7 9381-0 ####[facility] LABIA [id number] [place] [address] [place] ASTROVIRUS Not detected Normal Not Detected [facility] Comment on above: Order Comment: Speci men Type: STOOL SPECIMENOrdering Facility: [facility] Address: [address] [place] [address] Performed By: #### 7 9381-0 ####[facility] LABIA [id number] [place] [address] [place] C. cayetanensis DNA KIAH+probe Ql (Unsp spec) Not detected Normal Not Detected [facility] Comment on above: Order Comment: Speci men Type: STOOL SPECIMENOrdering Facility: [facility] Address: [address] [place] [address] Performed By: #### 7 9381-0 ####[facility] LABCLIA [id number] [place] [address] [place] Campylobacter sp DNA.diarrheagenic KIAH+probe Ql (Stl) Not detected Normal Not Detected [facility] Comment on above: Order Comment: Speci men Type: STOOL SPECIMENOrdering Facility: [facility] Address: [address] [place] [address] Performed By: #### 7 9381-0 ####[facility] LABCLIA [id number] [place] [address] [place] Cryptosporidium sp DNA KIAH+probe Ql (Unsp spec) Not detected Normal Not detected [facility] Comment on above: Order Comment: Speci men Type: STOOL SPECIMENOrdering Facility: [facility] Address: [address] [place] [address] Performed By: #### 7 9381-0 ####[facility] LABCLIA [id number] [place] [address] [place] E. COLI (EAEC) Not detected Normal Not Detected [facility] Comment on above: Order Comment: Speci men Type: STOOL SPECIMENOrdering Facility: [facility] Address: [address] [place] [address] Performed By: #### 7 9381-0 ####[facility] LABCLIA [id number] [place] [address] [place] E. COLI (EPEC) Not detected Normal Not Detected [facility] Comment on above: Order Comment: Speci men Type: STOOL SPECIMENOrdering Facility: [facility] Address: [address] [place] [address] Performed By: #### 7 9381-0 ####[facility] LABCLIA [id number] [place] [address] [place] E. COLI (ETEC) Not detected Normal Not Detected [facility] Comment on above: Order Comment: Speci men Type: STOOL SPECIMENOrdering Facility: [facility] Address: [address] [place] [address] Performed By: #### 7 9381-0 ####[facility] LABCLIA [id number] [place] [address] [place] E. COLI (STEC) Not detected Normal Not Detected [facility] Comment on above: Order Comment: Speci men Type: STOOL SPECIMENOrdering Facility: [facility] Address: [address] [place] [address] Performed By: #### 7 9381-0 ####[facility] LABCLIA [id number] [place] [address] [place] E. coli O157:H7 DNA KIAH+probe Ql (Unsp spec) Not Applicable Normal Not Detected [facility] Comment on above: Order Comment: Speci men Type: STOOL SPECIMENOrdering Facility: [facility] Address: [address] [place] [address] Performed By: #### 7 9381-0 ####[facility] LABCLIA [id number] [place] [address] [place] E. histolytica DNA KIAH+probe Ql (Unsp spec) Not detected Normal Not Detected [facility] Comment on above: Order Comment: Speci men Type: STOOL SPECIMENOrdering Facility: [facility] Address: [address] [place] [address] Performed By: #### 7 9381-0 ####[facility] LABCLIA [id number] [place] [address] [place] G. lamblia DNA KIAH+probe Ql (Unsp spec) Not detected Normal Not Detected [facility] Comment on above: Order Comment: Speci men Type: STOOL SPECIMENOrdering Facility: [facility] Address: [address] [place] [address] Performed By: #### 7 9381-0 ####[facility] LABCLIA [id number] [place] [address] [place] NOROVIRUS GI/GII Not detected Normal Not Detected [facility] Comment on above: Order Comment: Speci men Type: STOOL SPECIMENOrdering Facility: [facility] Address: [address] [place] [address] Performed By: #### 7 9381-0 ####[facility] LABCLIA [id number] [place] [address] [place] PLESIOMONAS SHIGELLOIDES Not detected Normal Not Detected [facility] Comment on above: Order Comment: Speci men Type: STOOL SPECIMENOrdering Facility: [facility] Address: [address] [place] [address] Performed By: #### 7 9381-0 ####[facility] LABCLIA [id number] [place] [address] [place] ROTOVIRUS A Not detected Normal Not Detected [facility] Comment on above: Order Comment: Speci men Type: STOOL SPECIMENOrdering Facility: [facility] Address: [address] [place] [address] Performed By: #### 7 9381-0 ####[facility] LABCLIA [id number] [place] [address] [place] Salmonella sp DNA KIAH+probe Ql (Unsp spec) Not detected Normal Not Detected [facility] Comment on above: Order Comment: Speci men Type: STOOL SPECIMENOrdering Facility: [facility] Address: [address] [place] [address] Performed By: #### 7 9381-0 ####[facility] LABCLIA [id number] [place] [address] [place] SAPOVIRUS I,II,IV,V Not detected Normal Not Detected [facility] Comment on above: Order Comment: Speci men Type: STOOL SPECIMENOrdering Facility: [facility] Address: [address] [place] [address] Performed By: #### 7 9381-0 ####[facility] LABCLIA [id number] [place] [address] [place] Shigella species+EIEC invasion plasmid antigen H ipaH gene KIAH+probe Ql (Stl) Not detected Normal Not Detected [facility] Comment on above: Order Comment: Speci men Type: STOOL SPECIMENOrdering Facility: [facility] Address: [address] [place] [address] Performed By: #### 7 9381-0 ####[facility] LABCLIA [id number] [place] [address] [place] V. cholerae DNA KIAH+probe Ql (Unsp spec) Not detected Normal Not Detected [facility] Comment on above: Order Comment: Speci men Type: STOOL SPECIMENOrdering Facility: [facility] Address: [address] [place] [address] Performed By: #### 7 9381-0 ####[facility] LABIA [id number] [place] [address] [place] Vibrio sp DNA KIAH+probe Nom (Unsp spec) Not detected Normal Not Detected [facility] Comment on above: Order Comment: Speci men Type: STOOL SPECIMENOrdering Facility: [facility] Address: [address] [place] [address] Performed By: #### 7 9381-0 ####[facility] LABIA [id number] [place] [address] [place] Yersinia sp DNA KIAH+probe Nom (Unsp spec) Not detected Normal Not Detected [facility] Comment on above: Order Comment: Speci men Type: STOOL SPECIMENOrdering Facility: [facility] Address: [address] [place] [address] Performed By: #### 7 9381-0 ####[facility] LABIA [id number] [place] [address] [place] Magnesium SerPl[facility] Magnesium [Mass/Vol] 2.0 mg/dL Normal 1.7-2.3 [facility] Comment on above: Order Comment: Speci men Type: BLOOD SPECIMENOrdering Facility: [facility] Address: [address] [place] [address] Performed By: #### 2 4323-8, 82053-2 ####[facility] LABCLIA [id number] [place] [address] [place] SOCIAL WORKon 07-16-2023 SOCIAL WORK Normal [facility] THERAPY NTon 07-16-2023 THERAPY NT Normal [facility] THERAPY NT Normal [facility] C diff Tox gens Stl Ql KIAH+p robeon 07-15-2023 C. difficile toxin genes KIAH+probe Ql (Stl) Negative Normal Negative for C. difficile toxin by PCR [facility] Comment on above: Order Comment: Speci men Type: STOOL SPECIMENOrdering Facility: [facility] Address: [address] [place] [address] Performed By: #### 5 4067-4 ####[facility] LABCLIA [id number] [place] [address] [place] CBC W Auto Differential pane l (Bld)on 07-15-2023 Basophils (Bld) [#/Vol] Normal [facility] Comment on above: Order Comment: Speci men Type: BLOOD SPECIMENOrdering Facility: [facility] Address: [address] [place] [address] Result Comment: Too Few Cells To Do Differential. Performed By: #### 5 7021-8 ####[facility] LABCLIA [id number] [place] [address] [place] Basophils/100 WBC (Bld) Normal [facility] Comment on above: Order Comment: Speci men Type: BLOOD SPECIMENOrdering Facility: [facility] Address: [address] [place] [address] Result Comment: Too Few Cells To Do Differential. Performed By: #### 5 7021-8 ####[facility] LABCLIA [id number] [place] [address] [place] Differential cell count method Nom (Bld) Auto Normal [facility] Comment on above: Order Comment: Speci men Type: BLOOD SPECIMENOrdering Facility: [facility] Address: [address] [place] [address] Performed By: #### 5 7021-8 ####[facility] LABCLIA [id number] [place] [address] [place] Eosinophils (Bld) [#/Vol] Normal [facility] Comment on above: Order Comment: Speci men Type: BLOOD SPECIMENOrdering Facility: [facility] Address: [address] [place] [address] Result Comment: Too Few Cells To Do Differential. Performed By: #### 5 7021-8 ####[facility] LABCLIA [id number] [place] [address] [place] Eosinophils/100 WBC (Bld) Normal [facility] Comment on above: Order Comment: Speci men Type: BLOOD SPECIMENOrdering Facility: [facility] Address: [address] [place] [address] Result Comment: Too Few Cells To Do Differential. Performed By: #### 5 7021-8 ####[facility] LABCLIA [id number] [place] [address] [place] Erythrocyte distribution width (RBC) [Ratio] 15.5 % High 11.5-15.0 [facility] Comment on above: Order Comment: Speci men Type: BLOOD SPECIMENOrdering Facility: [facility] Address: [address] [place] [address] Performed By: #### 5 7021-8 ####[facility] LABCLIA [id number] [place] [address] [place] Hematocrit (Bld) [Volume fraction] 18.5 % Low 36.0-46.0 [facility] Comment on above: Order Comment: Speci men Type: BLOOD SPECIMENOrdering Facility: [facility] Address: [address] [place] [address] Performed By: #### 5 7021-8 ####[facility] LABCLIA [id number] [place] [address] [place] Hemoglobin (Bld) [Mass/Vol] 6.4 g/dL Low 11.5-15.5 [facility] Comment on above: Order Comment: Speci men Type: BLOOD SPECIMENOrdering Facility: [facility] Address: [address] [place] [address] Performed By: #### 5 7021-8 ####[facility] LABCLIA [id number] [place] [address] [place] Immature granulocytes (Bld) [#/Vol] Normal [facility] Comment on above: Order Comment: Speci men Type: BLOOD SPECIMENOrdering Facility: [facility] Address: [address] [place] [address] Result Comment: Too Few Cells To Do Differential. Performed By: #### 5 7021-8 ####[facility] LABCLIA [id number] [place] [address] [place] Immature granulocytes/100 WBC (Bld) Normal [facility] Comment on above: Order Comment: Speci men Type: BLOOD SPECIMENOrdering Facility: [facility] Address: [address] [place] [address] Result Comment: Too Few Cells To Do Differential. Performed By: #### 5 7021-8 ####[facility] LABCLIA [id number] [place] [address] [place] Lymphocytes (Bld) [#/Vol] Normal [facility] Comment on above: Order Comment: Speci men Type: BLOOD SPECIMENOrdering Facility: [facility] Address: [address] [place] [address] Result Comment: Too Few Cells To Do Differential. Performed By: #### 5 7021-8 ####[facility] LABCLIA [id number] [place] [address] [place] Lymphocytes/100 WBC (Bld) Normal [facility] Comment on above: Order Comment: Speci men Type: BLOOD SPECIMENOrdering Facility: [facility] Address: [address] [place] [address] Result Comment: Too Few Cells To Do Differential. Performed By: #### 5 7021-8 ####[facility] LABCLIA [id number] [place] [address] [place] MCH (RBC) [Entitic mass] 30.9 pg Normal 26.0-34.0 [facility] Comment on above: Order Comment: Speci men Type: BLOOD SPECIMENOrdering Facility: [facility] Address: [address] [place] [address] Performed By: #### 5 7021-8 ####[facility] LABIA [id number] [place] [address] [place] MCHC (RBC) [Mass/Vol] 34.6 g/dL Normal 30.5-36.0 [facility] Comment on above: Order Comment: Speci men Type: BLOOD SPECIMENOrdering Facility: [facility] Address: [address] [place] [address] Performed By: #### 5 7021-8 ####[facility] LABIA [id number] [place] [address] [place] MCV (RBC) [Entitic vol] 89.4 fL Normal 80.0-100.0 [facility] Comment on above: Order Comment: Speci men Type: BLOOD SPECIMENOrdering Facility: [facility] Address: [address] [place] [address] Performed By: #### 5 7021-8 ####[facility] LABIA [id number] [place] [address] [place] Monocytes (Bld) [#/Vol] Normal [facility] Comment on above: Order Comment: Speci men Type: BLOOD SPECIMENOrdering Facility: [facility] Address: [address] [place] [address] Result Comment: Too Few Cells To Do Differential. Performed By: #### 5 7021-8 ####[facility] LABCLIA [id number] [place] [address] [place] Monocytes/100 WBC (Bld) Normal [facility] Comment on above: Order Comment: Speci men Type: BLOOD SPECIMENOrdering Facility: [facility] Address: [address] [place] [address] Result Comment: Too Few Cells To Do Differential. Performed By: #### 5 7021-8 ####[facility] LABCLIA [id number] [place] [address] [place] Neutrophils (Bld) [#/Vol] Normal [facility] Comment on above: Order Comment: Speci men Type: BLOOD SPECIMENOrdering Facility: [facility] Address: [address] [place] [address] Result Comment: Too Few Cells To Do Differential. Performed By: #### 5 7021-8 ####[facility] LABCLIA [id number] [place] [address] [place] Neutrophils/100 WBC (Bld) Normal [facility] Comment on above: Order Comment: Speci men Type: BLOOD SPECIMENOrdering Facility: [facility] Address: [address] [place] [address] Result Comment: Too Few Cells To Do Differential. Performed By: #### 5 7021-8 ####[facility] LABCLIA [id number] [place] [address] [place] Nucleated RBC (Bld) [#/Vol] 0.02 10*3/uL High <0.01 [facility] Comment on above: Order Comment: Speci men Type: BLOOD SPECIMENOrdering Facility: [facility] Address: [address] [place] [address] Performed By: #### 5 7021-8 ####[facility] LABCLIA [id number] [place] [address] [place] Nucleated RBC/100 WBC (Bld) [Ratio] 4.7 /100 WBC Normal [facility] Comment on above: Order Comment: Speci men Type: BLOOD SPECIMENOrdering Facility: [facility] Address: [address] [place] [address] Performed By: #### 5 7021-8 ####[facility] LABIA [id number] [place] [address] [place] Platelet mean volume (Bld) [Entitic vol] Normal [facility] Comment on above: Order Comment: Speci men Type: BLOOD SPECIMENOrdering Facility: [facility] Address: [address] [place] [address] Result Comment: Unab le to Report. Performed By: #### 5 7021-8 ####[facility] LABIA [id number] [place] [address] [place] Platelets (Bld) [#/Vol] 8 10*3/uL Critically low 150-400 [facility] Comment on above: Order Comment: Speci men Type: BLOOD SPECIMENOrdering Facility: [facility] Address: [address] [place] [address] Result Comment: Plat elet count confirmed by manual review of peripheral blood smear. Results checked and verified.No clot detected. Performed By: #### 5 7021-8 ####[facility] LABIA [id number] [place] [address] [place] RBC (Bld) [#/Vol] 2.07 10*6/uL Low 3.90-5.20 [facility] Comment on above: Order Comment: Speci men Type: BLOOD SPECIMENOrdering Facility: [facility] Address: [address] [place] [address] Performed By: #### 5 7021-8 ####[facility] LABIA [id number] [place] [address] [place] WBC (Bld) [#/Vol] 0.43 10*3/uL Low 3.70-11.00 [facility] Comment on above: Order Comment: Speci men Type: BLOOD SPECIMENOrdering Facility: [facility] Address: [address] [place] [address] Result Comment: Resu lts checked and verified.No clot detected. Too Few Cells To Do Differential Performed By: #### 5 7021-8 ####[facility] LABCLIA [id number] [place] [address] [place] Comprehensive metabolic 2000 panelon 07-15-2023 Albumin [Mass/Vol] 2.3 g/dL Low 3.9-4.9 [facility] Comment on above: Order Comment: Speci men Type: BLOOD SPECIMENOrdering Facility: [facility] Address: [address] [place] [address] Performed By: #### 2 4323-8, 63502-5 ####[facility] LABCLIA [id number] [place] [address] [place] ALP [Catalytic activity/Vol] 56 U/L Normal 34-123 [facility] Comment on above: Order Comment: Speci men Type: BLOOD SPECIMENOrdering Facility: [facility] Address: [address] [place] [address] Performed By: #### 2 4323-8, ####[facility] LABCLIA [id number] [place] [address] [place] ALT [Catalytic activity/Vol] 13 U/L Normal 7-38 [facility] Comment on above: Order Comment: Speci men Type: BLOOD SPECIMENOrdering Facility: [facility] Address: [address] [place] [address] Performed By: #### 2 4323-8, ####[facility] LABCLIA [id number] [place] [id number] [place] Anion gap [Moles/Vol] 8 mmol/L Low 9-18 [facility] Comment on above: Order Comment: Speci men Type: BLOOD SPECIMENOrdering Facility: [facility] Address: [address] [place] [address] Performed By: #### 2 432-8, ####[facility] LABCLIA [id number] [place] [id number] [place] AST [Catalytic activity/Vol] 12 U/L Low 13-35 [facility] Comment on above: Order Comment: Speci men Type: BLOOD SPECIMENOrdering Facility: [facility] Address: [address] [place] [address] Performed By: #### 2 432-8, ####[facility] LABCLIA [id number] [place] [address] [place] Bilirubin [Mass/Vol] 0.7 mg/dL Normal 0.2-1.3 [facility] Comment on above: Order Comment: Speci men Type: BLOOD SPECIMENOrdering Facility: [facility] Address: [address] [place] [address] Performed By: #### 2 4323-8, ####[facility] LABCLIA [id number] [place] [address] [place] Calcium [Mass/Vol] 7.9 mg/dL Low 8.5-10.2 [facility] Comment on above: Order Comment: Speci men Type: BLOOD SPECIMENOrdering Facility: [facility] Address: [address] [place] [address] Performed By: #### 2 4323-8, ####[facility] LABCLIA [id number] [place] [address] [place] Chloride [Moles/Vol] 103 mmol/L Normal 97-105 [facility] Comment on above: Order Comment: Speci men Type: BLOOD SPECIMENOrdering Facility: [facility] Address: [address] [place] [address] Performed By: #### 2 4328, ####[facility] LABCLIA [id number] [place] [address] [place] CO2 [Moles/Vol] 23 mmol/L Normal 22-30 [facility] Comment on above: Order Comment: Speci men Type: BLOOD SPECIMENOrdering Facility: [facility] Address: [address] [place] [address] Performed By: #### 2 43211-08, ####[facility] LABIA [id number] [place] [address] [place] Creatinine [Mass/Vol] 0.81 mg/dL Normal 0.58-0.96 [facility] Comment on above: Order Comment: Speci men Type: BLOOD SPECIMENOrdering Facility: [facility] Address: [address] [place] [address] Performed By: #### 2 43211-08, ####[facility] LABIA [id number] [place] [address] [place] Creatinine and Glomerular filtration rate.predicted panel (S/P/Bld) 78 mL/min/1.73m??? Normal >=60 [facility] Comment on above: Order Comment: Speci men Type: BLOOD SPECIMENOrdering Facility: [facility] Address: [address] [place] [address] Result Comment: Berenice mated Glomerular Filtration Rate [...] actual GFR. Performed By: #### 2 4323-8, ####[facility] LABCLIA [id number] [place] [id number] [place] Glucose [Mass/Vol] 94 mg/dL Normal 74-99 [facility] Comment on above: Order Comment: Speci men Type: BLOOD SPECIMENOrdering Facility: [facility] Address: [address] [place] [address] Result Comment: The [place] [employer] (ADA) provides guidance for cutoff [...] Standards of Medical Care in Diabetes 2016, [place] [employer]. Diabetes Care. 2016.39(Suppl 1). Performed By: #### 2 4323-8, ####[facility] LABCLIA [id number] [place] [address] [place] Potassium [Moles/Vol] 3.6 mmol/L Low 3.7-5.1 [facility] Comment on above: Order Comment: Elvia men Type: BLOOD SPECIMENOrdering Facility: [facility] Address: [address] [place] [address] Performed By: #### 2 4323-8, ####[facility] LABCLIA [id number] [place] [address] [place] Protein [Mass/Vol] 4.6 g/dL Low 6.3-8.0 [facility] Comment on above: Order Comment: Rochellei men Type: BLOOD SPECIMENOrdering Facility: [facility] Address: [address] [place] [address] Performed By: #### 2 4323-8, ####[facility] LABCLIA [id number] [place] [address] [place] Sodium [Moles/Vol] 134 mmol/L Low 136-144 [facility] Comment on above: Order Comment: Speci men Type: BLOOD SPECIMENOrdering Facility: [facility] Address: [address] [place] [address] Performed By: #### 2 4323-8, ####[facility] LABCLIA [id number] [address] [address] [place] Urea nitrogen [Mass/Vol] 14 mg/dL Normal 7-21 [facility] Comment on above: Order Comment: Speci men Type: BLOOD SPECIMENOrdering Facility: [facility] Address: [address] [place] [address] Performed By: #### 2 4323-8, ####[facility] LABCLIA [id number] [place] [id number] [place] Magnesium SerPl-mCncon 07-15 Magnesium [Mass/Vol] 2.1 mg/dL Normal 1.7-2.3 [facility] Comment on above: Order Comment: Speci men Type: BLOOD SPECIMENOrdering Facility: [facility] Address: [address] [place] [address] Performed By: #### 2 4323-8, ####[facility] LABCLIA [id number] [place] [id number] [place] THERAPY NTon 07-15-2023 THERAPY NT Normal [facility] CT ABD/PEL W IVCONon 023 CT ABD/PEL W IVCON Normal [facility] CT CHEST W IVCONon 3 CT CHEST W IVCON Normal [facility] NURSING PROGon 07-14-2023 NURSING PROG Normal [facility] CBC W Auto Differential pane l (Bld)on 07-13-2023 Anisocytosis Ql (Bld) Present Normal [facility] Comment on above: Order Comment: Speci men Type: BLOOD SPECIMENOrdering Facility: [facility] Address: [address] [place] [address] Performed By: #### 5 7021-8 ####[facility] LABCLIA [id number] [place] [address] [place] Basophils (Bld) [#/Vol] 0.00 10*3/uL Normal <0.11 [facility] Comment on above: Order Comment: Speci men Type: BLOOD SPECIMENOrdering Facility: [facility] Address: [address] [place] [address] Performed By: #### 5 7021-8 ####[facility] LABCLIA [id number] [place] [address] [place] Basophils/100 WBC (Bld) 0.0 % Normal [facility] Comment on above: Order Comment: Speci men Type: BLOOD SPECIMENOrdering Facility: [facility] Address: [address] [place] [address] Performed By: #### 5 7021-8 ####[facility] LABCLIA [id number] [place] [address] [place] BLAST% 1.8 % High <=0.0 [facility] Comment on above: Order Comment: Speci men Type: BLOOD SPECIMENOrdering Facility: [facility] Address: [address] [place] [address] Performed By: #### 5 7021-8 ####[facility] LABCLIA [id number] [place] [address] [place] Differential cell count method Nom (Bld) Manual Normal [facility] Comment on above: Order Comment: Speci men Type: BLOOD SPECIMENOrdering Facility: [facility] Address: [address] [place] [address] Performed By: #### 5 7021-8 ####[facility] LABCLIA [id number] [place] [address] [place] Eosinophils (Bld) [#/Vol] 0.00 10*3/uL Normal <0.46 [facility] Comment on above: Order Comment: Speci men Type: BLOOD SPECIMENOrdering Facility: [facility] Address: [address] [place] [address] Performed By: #### 5 7021-8 ####[facility] LABCLIA [id number] [place] [address] [place] Eosinophils/100 WBC (Bld) 0.0 % Normal [facility] Comment on above: Order Comment: Speci men Type: BLOOD SPECIMENOrdering Facility: [facility] Address: [address] [place] [address] Performed By: #### 5 7021-8 ####[facility] LABCLIA [id number] [place] [address] [place] Erythrocyte distribution width (RBC) [Ratio] 15.3 % High 11.5-15.0 [facility] Comment on above: Order Comment: Speci men Type: BLOOD SPECIMENOrdering Facility: [facility] Address: [address] [place] [address] Performed By: #### 5 7021-8 ####[facility] LABCLIA [id number] [place] [address] [place] Hematocrit (Bld) [Volume fraction] 20.6 % Low 36.0-46.0 [facility] Comment on above: Order Comment: Speci men Type: BLOOD SPECIMENOrdering Facility: [facility] Address: [address] [place] [address] Performed By: #### 5 7021-8 ####[facility] LABCLIA [id number] [place] [address] [place] Hemoglobin (Bld) [Mass/Vol] 7.3 g/dL Low 11.5-15.5 [facility] Comment on above: Order Comment: Speci men Type: BLOOD SPECIMENOrdering Facility: [facility] Address: [address] [place] [address] Performed By: #### 5 7021-8 ####[facility] LABCLIA [id number] [place] [address] [place] Lymphocytes (Bld) [#/Vol] 0.29 10*3/uL Low 1.00-4.00 [facility] Comment on above: Order Comment: Speci men Type: BLOOD SPECIMENOrdering Facility: [facility] Address: [address] [place] [address] Performed By: #### 5 7021-8 ####[facility] LABCLIA [id number] [place] [address] [place] Lymphocytes/100 WBC (Bld) 47.8 % Normal [facility] Comment on above: Order Comment: Speci men Type: BLOOD SPECIMENOrdering Facility: [facility] Address: [address] [place] [address] Performed By: #### 5 7021-8 ####[facility] LABCLIA [id number] [place] [address] [place] MCH (RBC) [Entitic mass] 30.9 pg Normal 26.0-34.0 [facility] Comment on above: Order Comment: Speci men Type: BLOOD SPECIMENOrdering Facility: [facility] Address: [address] [place] [address] Performed By: #### 5 7021-8 ####[facility] LABCLIA [id number] [place] [address] [place] MCHC (RBC) [Mass/Vol] 35.4 g/dL Normal 30.5-36.0 [facility] Comment on above: Order Comment: Speci men Type: BLOOD SPECIMENOrdering Facility: [facility] Address: [address] [place] [address] Performed By: #### 5 7021-8 ####[facility] LABCLIA [id number] [place] [address] [place] MCV (RBC) [Entitic vol] 87.3 fL Normal 80.0-100.0 [facility] Comment on above: Order Comment: Speci men Type: BLOOD SPECIMENOrdering Facility: [facility] Address: [address] [place] [address] Performed By: #### 5 7021-8 ####[facility] LABCLIA [id number] [place] [address] [place] Monocytes (Bld) [#/Vol] 0.07 10*3/uL Normal <0.87 [facility] Comment on above: Order Comment: Speci men Type: BLOOD SPECIMENOrdering Facility: [facility] Address: [address] [place] [address] Performed By: #### 5 7021-8 ####[facility] LABCLIA [id number] [place] [address] [place] Monocytes/100 WBC (Bld) 10.8 % Normal [facility] Comment on above: Order Comment: Speci men Type: BLOOD SPECIMENOrdering Facility: [facility] Address: [address] [place] [address] Performed By: #### 5 7021-8 ####[facility] LABCLIA [id number] [place] [address] [place] Neutrophils (Bld) [#/Vol] 0.24 10*3/uL Low 1.45-7.50 [facility] Comment on above: Order Comment: Speci men Type: BLOOD SPECIMENOrdering Facility: [facility] Address: [address] [place] [address] Performed By: #### 5 7021-8 ####[facility] LABCLIA [id number] [place] [address] [place] Neutrophils/100 WBC (Bld) 39.6 % Normal [facility] Comment on above: Order Comment: Speci men Type: BLOOD SPECIMENOrdering Facility: [facility] Address: [address] [place] [address] Performed By: #### 5 7021-8 ####[facility] LABCLIA [id number] [place] [address] [place] Nucleated RBC (Bld) [#/Vol] 0.02 10*3/uL High <0.01 [facility] Comment on above: Order Comment: Speci men Type: BLOOD SPECIMENOrdering Facility: [facility] Address: [address] [place] [address] Performed By: #### 5 7021-8 ####[facility] LABCLIA [id number] [place] [address] [place] Nucleated RBC/100 WBC (Bld) [Ratio] 2.7 /100 WBC Normal [facility] Comment on above: Order Comment: Speci men Type: BLOOD SPECIMENOrdering Facility: [facility] Address: [address] [place] [address] Performed By: #### 5 7021-8 ####[facility] LABCLIA [id number] [place] [address] [place] Ovalocytes LM Ql (Bld) Few Normal [facility] Comment on above: Order Comment: Speci men Type: BLOOD SPECIMENOrdering Facility: [facility] Address: [address] [place] [address] Performed By: #### 5 7021-8 ####[facility] LABCLIA [id number] [place] [address] [place] Platelet mean volume (Bld) [Entitic vol] Normal [facility] Comment on above: Order Comment: Speci men Type: BLOOD SPECIMENOrdering Facility: [facility] Address: [address] [place] [address] Result Comment: Unab le to Report. Performed By: #### 5 7021-8 ####[facility] LABCLIA [id number] [place] [address] [place] Platelets (Bld) [#/Vol] 10 10*3/uL Low 150-400 [facility] Comment on above: Order Comment: Speci men Type: BLOOD SPECIMENOrdering Facility: [facility] Address: [address] [place] [address] Performed By: #### 5 7021-8 ####[facility] LABCLIA [id number] [place] [address] [place] Platelets Estimate (Bld) [#/Vol] Decreased Normal [facility] Comment on above: Order Comment: Speci men Type: BLOOD SPECIMENOrdering Facility: [facility] Address: [address] [place] [address] Performed By: #### 5 7021-8 ####[facility] LABCLIA [id number] [place] [address] [place] Polychromasia LM Ql (Bld) Slight Normal [facility] Comment on above: Order Comment: Speci men Type: BLOOD SPECIMENOrdering Facility: [facility] Address: [address] [place] [address] Performed By: #### 5 7021-8 ####[facility] LABIA [id number] [place] [address] [place] RBC (Bld) [#/Vol] 2.36 10*6/uL Low 3.90-5.20 [facility] Comment on above: Order Comment: Speci men Type: BLOOD SPECIMENOrdering Facility: [facility] Address: [address] [place] [address] Performed By: #### 5 7021-8 ####[facility] LABIA [id number] [place] [address] [place] RBC FRAGMENTS Few Abnormal None Seen [facility] Comment on above: Order Comment: Speci men Type: BLOOD SPECIMENOrdering Facility: [facility] Address: [address] [place] [address] Performed By: #### 5 7021-8 ####[facility] LABIA [id number] [place] [address] [place] RED CELL MORPH Reviewed: see result s of individual morphologies Normal [facility] Comment on above: Order Comment: Speci men Type: BLOOD SPECIMENOrdering Facility: [facility] Address: [address] [place] [address] Performed By: #### 5 7021-8 ####[facility] LABCLIA [id number] [address] [address] [place] WBC (Bld) [#/Vol] 0.61 10*3/uL Low 3.70-11.00 [facility] Comment on above: Order Comment: Speci men Type: BLOOD SPECIMENOrdering Facility: [facility] Address: [address] [place] [address] Result Comment: Resu lts checked and verified.No clot detected. Performed By: #### 5 7021-8 ####[facility] LABCLIA [id number] [place] [address] [place] Comprehensive metabolic 2000 panelon 07-13-2023 Albumin [Mass/Vol] 2.6 g/dL Low 3.9-4.9 [facility] Comment on above: Order Comment: Speci men Type: BLOOD SPECIMENOrdering Facility: [facility] Address: [address] [place] [address] Performed By: #### 2 4323-8, , 2776-09 ####[facility] LABCLIA [id number] [place] [address] [place] ALP [Catalytic activity/Vol] 49 U/L Normal 34-123 [facility] Comment on above: Order Comment: Speci men Type: BLOOD SPECIMENOrdering Facility: [facility] Address: [address] [place] [address] Performed By: #### 2 4323-8, , 2776-09 ####[facility] LABCLIA [id number] [place] [id number] [place] ALT [Catalytic activity/Vol] 16 U/L Normal 7-38 [facility] Comment on above: Order Comment: Speci men Type: BLOOD SPECIMENOrdering Facility: [facility] Address: [address] [place] [address] Performed By: #### 2 4323-8, , 2776-09 ####[facility] LABCLIA [id number] [place] [address] [place] Anion gap [Moles/Vol] 6 mmol/L Low 9-18 [facility] Comment on above: Order Comment: Speci men Type: BLOOD SPECIMENOrdering Facility: [facility] Address: [address] [place] [address] Performed By: #### 2 4323-8, , 2776-09 ####[facility] LABCLIA [id number] [place] [address] [place] AST [Catalytic activity/Vol] 13 U/L Normal 13-35 [facility] Comment on above: Order Comment: Speci men Type: BLOOD SPECIMENOrdering Facility: [facility] Address: [address] [place] [address] Performed By: #### 2 4323-8, , 2776-09 ####[facility] LABIA [id number] [place] [address] [place] Bilirubin [Mass/Vol] 0.8 mg/dL Normal 0.2-1.3 [facility] Comment on above: Order Comment: Speci men Type: BLOOD SPECIMENOrdering Facility: [facility] Address: [address] [place] [address] Performed By: #### 2 4323-8, , 2776-09 ####[facility] LABIA [id number] [place] [address] [place] Calcium [Mass/Vol] 8.1 mg/dL Low 8.5-10.2 [facility] Comment on above: Order Comment: Speci men Type: BLOOD SPECIMENOrdering Facility: [facility] Address: [address] [place] [address] Performed By: #### 2 4323-8, 43976-2, 2776-09 ####[facility] LABIA [id number] [place] [id number] [place] Chloride [Moles/Vol] 103 mmol/L Normal 97-105 [facility] Comment on above: Order Comment: Speci men Type: BLOOD SPECIMENOrdering Facility: [facility] Address: [address] [place] [address] Performed By: #### 2 4323-8, , 2776-09 ####[facility] LABIA [id number] [place] [address] [place] CO2 [Moles/Vol] 25 mmol/L Normal 22-30 [facility] Comment on above: Order Comment: Speci men Type: BLOOD SPECIMENOrdering Facility: [facility] Address: [address] [place] [address] Performed By: #### 2 4323-8, , 2776-09 ####[facility] LABIA [id number] [place] [address] [place] Creatinine [Mass/Vol] 0.82 mg/dL Normal 0.58-0.96 [facility] Comment on above: Order Comment: Speci men Type: BLOOD SPECIMENOrdering Facility: [facility] Address: [address] [place] [address] Performed By: #### 2 4323-8, , 2776-09 ####[facility] LABIA [id number] [place] [address] [place] Creatinine and Glomerular filtration rate.predicted panel (S/P/Bld) 77 mL/min/1.73m??? Normal >=60 [facility] Comment on above: Order Comment: Speci men Type: BLOOD SPECIMENOrdering Facility: [facility] Address: [address] [place] [address] Result Comment: Berenice mated Glomerular Filtration Rate [...] Performed By: #### 2 4323-8, , 2776-09 ####[facility] LABCLIA [id number] [place] [address] [place] Glucose [Mass/Vol] 112 mg/dL High 74-99 [facility] Comment on above: Order Comment: Elvia escobar Type: BLOOD SPECIMENOrdering Facility: [facility] Address: [address] [place] [address] Result Comment: The [employer] (ADA) provides guidance for cutoff [...] Standards of Medical Care in Diabetes 2016, [employer]. Diabetes Care. 2016.39(Suppl 1). Performed By: #### 2 4323-8, , 2776-09 ####[facility] LABCLIA [id number] [place] [id number] [place] Potassium [Moles/Vol] 3.9 mmol/L Normal 3.7-5.1 [facility] Comment on above: Order Comment: Elvia escobar Type: BLOOD SPECIMENOrdering Facility: [facility] Address: [address] [place] [address] Performed By: #### 2 4323-8, , 2776-09 ####[facility] LABCLIA [id number] [place] [id number] [place] Protein [Mass/Vol] 4.8 g/dL Low 6.3-8.0 [facility] [place] Comment on above: Order Comment: Speci men Type: BLOOD SPECIMENOrdering Facility: [facility] Address: [address] [place] [address] Performed By: #### 2 4323-8, , 2776-09 ####[facility] LABIA [id number] [place] [id number] [place] Sodium [Moles/Vol] 134 mmol/L Low 136-144 [facility] [place] Comment on above: Order Comment: Speci men Type: BLOOD SPECIMENOrdering Facility: [facility] Address: [address] [place] [address] Performed By: #### 2 4323-8, , 2776-09 ####[facility] LABIA [id number] [place] [address] [place] Urea nitrogen [Mass/Vol] 26 mg/dL High 7-21 [facility] [place] Comment on above: Order Comment: Speci men Type: BLOOD SPECIMENOrdering Facility: [facility] Address: [address] [place] [address] Performed By: #### 2 4323-8, , 2776-09 ####[facility] LABIA [id number] [place] [id number] [place] HISTORY PHYSICALon HISTORY PHYSICAL Normal [facility] Magnesium SerPl-mCncon 07-13 Magnesium [Mass/Vol] 2.2 mg/dL Normal 1.7-2.3 [facility] [place] Comment on above: Order Comment: Speci men Type: BLOOD SPECIMENOrdering Facility: [facility] Address: [address] [place] [address] Performed By: #### 2 4323-8, , 2776-09 ####[facility] LABCLIA [id number] [place] [address] [place] Phosphate SerPl-mCncon 07-13 Phosphate [Mass/Vol] 2.8 mg/dL Normal 2.7-4.8 [facility] [place] Comment on above: Order Comment: Speci men Type: BLOOD SPECIMENOrdering Facility: [facility] Address: [address] [place] [address] Performed By: #### 2 4323-8, 27029-8, 2777-1 ####[facility] LABCLIA [id number] [place] [address] [place] TYPE + SCREENon 07-13-2023 ABO O Normal [facility] [place] Comment on above: Order Comment: Speci men Type: BLOOD SPECIMENOrdering Facility: [facility] Address: [address] [place] [address] Performed By: #### T SCR ####[facility] BLOOD BANKCLIA [id number] [place] [address] [place] HISTORICAL AB SCR STATUS Negative Normal [facility] [place] Comment on above: Order Comment: Speci men Type: BLOOD SPECIMENOrdering Facility: [facility] Address: [address] [place] [address] Performed By: #### T SCR ####[facility] BLOOD BANKCLIA [id number] [place] [address] [place] Rh Nom (Bld) Positive Normal [facility] [place] Comment on above: Order Comment: Speci men Type: BLOOD SPECIMENOrdering Facility: [facility] Address: [address] [place] [address] Performed By: #### T SCR ####CC [facility] BLOOD BANKCLIA [id number] [place] [address] [place] TYPE AND SCREEN EXPIRATION 07/16/2023 23:59 Normal [facility] [place] Comment on above: Order Comment: Speci men Type: BLOOD SPECIMENOrdering Facility: [facility] Address: [facility] [place] [address] Performed By: #### T SCR ####CC [facility] BLOOD BANKCLIA [id number] [place] [id number] [place] CNPNon 07-06-2023 CNPN Normal [facility] [place] AML MRD BY FCon 06-25-2023 AML MRD BY FC View results in Scan talia Documents link when available. Normal [facility] [place] Comment on above: Order Comment: Speci men Type: BONE MARROW SPECIMENOrdering Facility: [facility] Address: [address] [place] [address] Performed By: #### A MLMRD ####[facility] MOLECULAR MICROCLIA [id number] [place] [address] BONE MARROW ANALYSISon 06-25 ADDENDUM 1: Normal [facility] [place] Comment on above: Order Comment: Speci men Type: BONE MARROW SPECIMENOrdering Facility: [facility] Address: [address] [place] [address] Result Comment: Conv entional cytogenetic studies showed a complex female karyotype.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 In addition, the variant of unknown clinical significance was found in DDX41.The flow cytometry based minimal residual disease (MRD) studies performed on the bone marrow aspirate at [facility], [place], [place] are reported to show an abnormal [...] 10:10 AM Performed By: #### B MRT ####[facility] LABCLIA [id number] [place] [address] [place] CASE REPORT Normal [facility] [place] Comment on above: Order Comment: Speci men Type: BONE MARROW SPECIMENOrdering Facility: [facility] Address: [address] [place] [address] Result Comment: Bone Marrow Pathology Report Case: [id number] Provider: Mike Hughes MD Collected: 06/25/2023 08:55 AMOrdering Location: [place] [address] Received: 06/25/2023 09:18 AMPathologist: Mhiaela Flowers MDSpecimens: A) - BONE MARROW ASPIRATE RIGHT POSTERIOR ILIAC CREST B) - BONE MARROW BIOPSY RIGHT POSTERIOR ILIAC CREST C) - BONE MARROW CLOT RIGHT POSTERIOR ILIAC CREST Performed By: #### B MRT ####[facility] LABCLIA [id number] [facility] [place] [address] [place] DIAGNOSIS COMMENT Normal [facility] Comment on above: Order Comment: Speci men Type: BONE MARROW SPECIMENOrdering Facility: [facility] Address: [address] [place] [address] Result Comment: The patient is a 68-year-old female with history of acute myeloid leukemia with mutated TP53, therapy-related ([facility] 2021), status post therapy.Evaluation is limited due [...] Hernandez from the hematopathology section at the [facility], and he concurs with the above rendered final diagnosis and interpretation.Laboratory Developed Test (LDT) Disclaimer:Performance characteristics of immunohistochemical, immunofluorescent and chromogenic in-situ hybridization tests have been determined by the performing laboratory within [facility]???s [facility] Nog[facility] [place] ([facility], [facility], [facility], [facility], [facility], [facility], or [facility]) in a manner consistent with CLIA requirements. One or more of these tests have not been cleared or approved by the FDA. RT-PLMI is regulated under CLIA as qualified to perform high-complexity testing. These tests are used for clinical purposes. They should not be regarded as investigational or for research. Positive and negative controls stain appropriately. Performed By: #### B MRT ####[facility] LABCLIA [id number] [address] [place] FINAL DIAGNOSIS Normal [facility] [place] Comment on above: Order Comment: Speci men Type: BONE MARROW SPECIMENOrdering Facility: [facility] Address: [address] [place] [address] Result Comment: A-C. 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 Performed By: #### B MRT ####[facility] LABCLIA [id number] [place] [address] [place] GROSS DESCRIPTION Normal [facility] Comment on above: Order Comment: Speci men Type: BONE MARROW SPECIMENOrdering Facility: [facility] Address: [address] [place] [address] Result Comment: A. B ONE MARROW ASPIRATE [...] one cassette. Performed By: #### B MRT ####[facility] LABCLIA [id number] [place] [address] [place] MICROSCOPIC DESCRIPTION Normal [facility] [place] Comment on above: Order Comment: Elvia escobar Type: BONE MARROW SPECIMENOrdering Facility: [facility] Address: [address] [place] [address] Result Comment: GENNY PHERAL BLOOD: N0 CBC data or peripheral blood smear available for review.BONE MARROW ASPIRATE: Differential counts performed on the aspicular, hemodilute touch imprint may not be entirely rental sales representative of the true marrow cellularity.Result Normal [...] coat stored. Performed By: #### B MRT ####[facility] LABCLIA [id number] [place] [address] [place] BONE MARROW CHROMOSOME ANALo n 06-25-2023 CHROMOSOME BM Normal [facility] [place] Comment on above: Order Comment: Order ing Facility: [facility] Address: [address] [place] [address] Result Comment: Edel knight Accession Number: [id number]: Yara Hughesologist: Janki Pathology No: [id number] diagnosis: Acute Myeloid Leukemia Not Having AchievedRemissionSpecimen [...] reviewed by Jovanny Hooper, PhD, FACMGPerformed by [place] [facility] Medicine InstitutePershing Memorial Hospitalion of Molecular PathologyCytogenetics Lab, [id number] [address] [place], [place] [address]Phone: Toll free: Performed By: #### C HRBM ####[facility] LIMSCLIA [id number] [address] [address] [place] BRIEF OP NOTon 06-25-2023 BRIEF OP NOT Normal [facility] [place] CNOVSPon 06-25-2023 CNOVSP Normal [facility] [place] CT BIOPSY BONE MARROW (HEMO) on 06-25-2023 CT BIOPSY BONE MARROW (HEMO) Normal [facility] [place] DNA EXTRACTION BONE MARROW ( BUFFY COAT)on 06-25-2023 DNA EXTRACTION BONE MARROW (BUFFY COAT) Normal [facility] [place] Comment on above: Order Comment: Speci men Type: BONE MARROW SPECIMENOrdering Facility: [facility] Address: [address] [place] [address] Result Comment: This specimen was received and successfully processed for future DNA purification should molecular testing be needed. Specimens will be available for 3 years from date of collection.To order testing on this specimen for [facility] patients, please place an [facility] order for DNA and RNA Clinical Testing (SQNUCADD). To order testing for patients outside of the [facility] system, please request DNA and RNA for Clinical Testing, order code [id number].If additional paperwork is required for testing, please send completed forms via secure email to . Performed By: #### N UCBUF ####[facility] LIMSCLIA [id number] [address] [address] [place] FLOW CYTOMETRY FOR LEUKEMIA/ LYMPHOMA (FCLL) PERFORMABLEon 06-25-2023 FLOW CYTOMETRY ORDER STATUS A bone marrow sample was received for potential flow cytometry studies. Following morphologic review, flow cytometric studies will be ordered by the hematopathologist if testing is indicated. Normal [facility] [place] Comment on above: Order Comment: Speci men Type: BONE MARROW SPECIMENOrdering Facility: [facility] Address: [address] [place] [address] Performed By: #### F CLLP ####[facility] LABCLIA [id number] [address] OF [facility] Flow Cytometry Order Status A bone marrow sample was received for potential flow cytometry studies. Following morphologic review, flow cytometric studies will be ordered by the hematopathologist if testing is indicated. [facility] FLT3 ITD HN BONE MARROWon CLARITY SIGNOUT PATHOLOGIST [id number] Normal [facility] [place] Comment on above: Order Comment: Speci men Type: BONE MARROW SPECIMENOrdering Facility: [facility] Address: [address] [place] [address] Performed By: #### F 3IM, MYNGSM ####[facility] LIMSCLIA [id number] [address] FLT3 ITD HN PANEL BONE MARROW Normal [facility] [place] Comment on above: Order Comment: Speci men Type: BONE MARROW SPECIMENOrdering Facility: [facility] Address: [address] [place] [address] Result Comment: FLT3 Internal Tandem Duplication (ITD) Mutation TestingLaboratory Accession Number: [id number] Internal Tandem Duplication (ITD) mutation: Not DetectedComment:FLT3/ITD [...] from the specimen provided. Regions of the HOJ8zfehdzao kinase receptor gene are subjected to the [...] myeloid neoplasms.References:1) Veda MP, Lisbeth P, Susie Dowling, et al. Mutational landscapeof AML with normal cytogenetics: biological and clinical implications.Blood Rev.2013;27:13-22.2) Juan KRISHNA, Ros M, Aly ME, et al. Prognostic relevance ofintegrated genetic profiling in acute myeloid leukemia. N Engl J Med.2011Nov 22;366 (12):1079-89.3) Dobonifacioer H, Dee E, Sharon Vaughan, et al. Diagnosis and mangement ofAML in adults: 2017 ELN recommendations from an international expertpanel. Blood [phone],[phone] (2017).Disclaimer:This test was developed and its performance characteristics determinedby [facility]'s [facility] LaboratoryMed[facility] [place] ([facility]). It has not been cleared or approved bythe FDA. -[facility] is regulated under CLIA as certified to perform high-complexity testing. This test is used for clinical purposes. It shouldnot be regarded as investigational or for research.Testing [place] [address]. CLIA Number: [id number] reviewed by Zenia Mae, PhD, [facility] Performed By: #### F 3IIVONNE Alvarez ####[facility] [id number] [place] [address] [place] HISTORY PHYSICALon HISTORY PHYSICAL Normal [facility] MYELOID NGS PANEL BONE MARRO Won 06-25-2023 MYELOID NGS PANEL BONE MARROW Normal [facility] [place] Comment on above: Order Comment: Speci men Type: BONE MARROW SPECIMENOrdering Facility: [facility] Address: [address] [place] [address] Result Comment: Myel oid NGS Panel Bone MarrowLaboratory Accession Number: [id number]:Please see linked document and/or separate report for full result whenavailable.As reviewed by Zenia Mae, PhD, HCLD Performed By: #### F 3IM, CHINMAYNGSM ####[facility] LIMSCLIA [id number] [place] [address] [place] NURSING PROGon 06-25-2023 NURSING PROG Normal [facility] [place] PT EDon 06-25-2023 PT ED Normal [facility] [place] CNPNon 06-22-2023 CNPN Normal [facility] [place] NURSING PROGon 06-20-2023 NURSING PROG Normal [facility] [place] CNPNon 06-14-2023 CNPN Normal [facility] [place] CNCOon 06-08-2023 CNCO Letter Text Normal [facility] [place] CASE MANAGEMon 06-07-2023 CASE MANAGEM Normal [facility] [place] CBC W Auto Differential pane l (Bld)on 06-07-2023 Anisocytosis Ql (Bld) Present Normal [facility] [place] Comment on above: Order Comment: Speci men Type: BLOOD SPECIMENOrdering Facility: [facility] Address: [address] [place] [address] Performed By: #### 5 7021-8 ####[facility] LABCLIA [id number] [place] [address] [place] Basophils (Bld) [#/Vol] 0.00 10*3/uL Normal <0.11 [facility] [place] Comment on above: Order Comment: Speci men Type: BLOOD SPECIMENOrdering Facility: [facility] Address: [address] [place] [address] Performed By: #### 5 7021-8 ####[facility] LABCLIA [id number] [place] [address] [place] Basophils/100 WBC (Bld) 0.0 % Normal [facility] [place] Comment on above: Order Comment: Speci men Type: BLOOD SPECIMENOrdering Facility: [facility] Address: [address] [place] [address] Performed By: #### 5 7021-8 ####[facility] LABCLIA [id number] [place] [address] [place] Dacrocytes LM Ql (Bld) Few Normal [facility] [place] Comment on above: Order Comment: Speci men Type: BLOOD SPECIMENOrdering Facility: [facility] Address: [address] [place] [address] Performed By: #### 5 7021-8 ####[facility] LABCLIA [id number] [place] [address] [place] Differential cell count method Nom (Bld) Manual Normal [facility] [place] Comment on above: Order Comment: Speci men Type: BLOOD SPECIMENOrdering Facility: [facility] Address: [address] [place] [address] Performed By: #### 5 7021-8 ####[facility] LABCLIA [id number] [place] [address] [place] Eosinophils (Bld) [#/Vol] 0.07 10*3/uL Normal <0.46 [facility] [place] Comment on above: Order Comment: Speci men Type: BLOOD SPECIMENOrdering Facility: [facility] Address: [address] [place] [address] Performed By: #### 5 7021-8 ####[facility] LABCLIA [id number] [place] [address] [place] Eosinophils/100 WBC (Bld) 6.0 % Normal [facility] [place] Comment on above: Order Comment: Speci men Type: BLOOD SPECIMENOrdering Facility: [facility] Address: [address] [place] [address] Performed By: #### 5 7021-8 ####[facility] LABCLIA [id number] [place] [address] [place] Erythrocyte distribution width (RBC) [Ratio] 18.3 % High 11.5-15.0 [facility] [place] Comment on above: Order Comment: Speci men Type: BLOOD SPECIMENOrdering Facility: [facility] Address: [address] [place] [address] Performed By: #### 5 7021-8 ####[facility] LABCLIA [id number] [place] [address] [place] Hematocrit (Bld) [Volume fraction] 21.4 % Low 36.0-46.0 [facility] [place] Comment on above: Order Comment: Speci men Type: BLOOD SPECIMENOrdering Facility: [facility] Address: [address] [place] [address] Performed By: #### 5 7021-8 ####[facility] LABCLIA [id number] [place] [address] [place] Hemoglobin (Bld) [Mass/Vol] 7.3 g/dL Low 11.5-15.5 [facility] [place] Comment on above: Order Comment: Speci men Type: BLOOD SPECIMENOrdering Facility: [facility] Address: [address] [place] [address] Performed By: #### 5 7021-8 ####[facility] LABIA [id number] [place] [address] [place] Lymphocytes (Bld) [#/Vol] 0.96 10*3/uL Low 1.00-4.00 [facility] [place] Comment on above: Order Comment: Speci men Type: BLOOD SPECIMENOrdering Facility: [facility] Address: [address] [place] [address] Performed By: #### 5 7021-8 ####[facility] LABCLIA [id number] [place] [address] [place] Lymphocytes/100 WBC (Bld) 82.0 % Normal [facility] [place] Comment on above: Order Comment: Speci men Type: BLOOD SPECIMENOrdering Facility: [facility] Address: [address] [place] [address] Performed By: #### 5 7021-8 ####[facility] LABIA [id number] [place] [address] [place] MCH (RBC) [Entitic mass] 32.2 pg Normal 26.0-34.0 [facility] [place] Comment on above: Order Comment: Speci men Type: BLOOD SPECIMENOrdering Facility: [facility] Address: [address] [place] [address] Performed By: #### 5 7021-8 ####[facility] LABIA [id number] [place] [address] [place] MCHC (RBC) [Mass/Vol] 34.1 g/dL Normal 30.5-36.0 [facility] [place] Comment on above: Order Comment: Speci men Type: BLOOD SPECIMENOrdering Facility: [facility] Address: [address] [place] [address] Performed By: #### 5 7021-8 ####[facility] LABIA [id number] [place] [address] [place] MCV (RBC) [Entitic vol] 94.3 fL Normal 80.0-100.0 [facility] [place] Comment on above: Order Comment: Speci men Type: BLOOD SPECIMENOrdering Facility: [facility] Address: [address] [place] [address] Performed By: #### 5 7021-8 ####[facility] LABIA [id number] [place] [address] [place] Monocytes (Bld) [#/Vol] 0.00 10*3/uL Normal <0.87 [facility] [place] Comment on above: Order Comment: Speci men Type: BLOOD SPECIMENOrdering Facility: [facility] Address: [address] [place] [address] Performed By: #### 5 7021-8 ####[facility] LABCLIA [id number] [place] [address] [place] Monocytes/100 WBC (Bld) 0.0 % Normal [facility] [place] Comment on above: Order Comment: Speci men Type: BLOOD SPECIMENOrdering Facility: [facility] Address: [address] [place] [address] Performed By: #### 5 7021-8 ####[facility] LABCLIA [id number] [place] [address] [place] Neutrophils (Bld) [#/Vol] 0.14 10*3/uL Low 1.45-7.50 [facility] [place] Comment on above: Order Comment: Speci men Type: BLOOD SPECIMENOrdering Facility: [facility] Address: [address] [place] [address] Performed By: #### 5 7021-8 ####[facility] LABCLIA [id number] [place] [address] [place] Neutrophils/100 WBC (Bld) 12.0 % Normal [facility] [place] Comment on above: Order Comment: Speci men Type: BLOOD SPECIMENOrdering Facility: [facility] Address: [address] [place] [address] Performed By: #### 5 7021-8 ####[facility] LABCLIA [id number] [place] [address] [place] Nucleated RBC (Bld) [#/Vol] 10*3/uL Normal <0.01 [facility] [place] Comment on above: Order Comment: Speci men Type: BLOOD SPECIMENOrdering Facility: [facility] Address: [address] [place] [address] Performed By: #### 5 7021-8 ####[facility] LABCLIA [id number] [place] [address] [place] Nucleated RBC/100 WBC (Bld) [Ratio] 0.0 /100 WBC Normal [facility] Comment on above: Order Comment: Speci men Type: BLOOD SPECIMENOrdering Facility: [facility] Address: [address] [place] [address] Performed By: #### 5 7021-8 ####[facility] LABCLIA [id number] [place] [address] [place] Ovalocytes LM Ql (Bld) Few Normal [facility] Comment on above: Order Comment: Speci men Type: BLOOD SPECIMENOrdering Facility: [facility] Address: [address] [place] [address] Performed By: #### 5 7021-8 ####[facility] LABCLIA [id number] [place] [address] [place] Platelet mean volume (Bld) [Entitic vol] Normal [facility] Comment on above: Order Comment: Speci men Type: BLOOD SPECIMENOrdering Facility: [facility] Address: [address] [place] [address] Result Comment: Unab le to Report. Performed By: #### 5 7021-8 ####[facility] LABCLIA [id number] [place] [address] [place] Platelets (Bld) [#/Vol] 9 10*3/uL Critically low 150-400 [facility] Comment on above: Order Comment: Speci men Type: BLOOD SPECIMENOrdering Facility: [facility] Address: [address] [place] [address] Result Comment: Resu lts checked and verified.No clot detected. Performed By: #### 5 7021-8 ####[facility] LABCLIA [id number] [place] [address] [place] Platelets Estimate (Bld) [#/Vol] Decreased Normal [facility] Comment on above: Order Comment: Speci men Type: BLOOD SPECIMENOrdering Facility: [facility] Address: [address] [place] [address] Performed By: #### 5 7021-8 ####[facility] LABCLIA [id number] [place] [address] [place] Polychromasia LM Ql (Bld) Slight Normal [facility] Comment on above: Order Comment: Speci men Type: BLOOD SPECIMENOrdering Facility: [facility] Address: [address] [place] [address] Performed By: #### 5 7021-8 ####[facility] LABCLIA [id number] [place] [address] [place] RBC (Bld) [#/Vol] 2.27 10*6/uL Low 3.90-5.20 [facility] Comment on above: Order Comment: Speci men Type: BLOOD SPECIMENOrdering Facility: [facility] Address: [address] [place] [address] Performed By: #### 5 7021-8 ####[facility] LABCLIA [id number] [place] [address] [place] RBC FRAGMENTS Few Abnormal None Seen [facility] Comment on above: Order Comment: Speci men Type: BLOOD SPECIMENOrdering Facility: [facility] Address: [address] [place] [address] Performed By: #### 5 7021-8 ####[facility] LABCLIA [id number] [place] [address] [place] RED CELL MORPH Reviewed: see result s of individual morphologies Normal [facility] Comment on above: Order Comment: Speci men Type: BLOOD SPECIMENOrdering Facility: [facility] Address: [address] [place] [address] Performed By: #### 5 7021-8 ####[facility] LABCLIA [id number] [place] [address] [place] WBC (Bld) [#/Vol] 1.17 10*3/uL Low 3.70-11.00 [facility] Comment on above: Order Comment: Speci men Type: BLOOD SPECIMENOrdering Facility: [facility] Address: [address] [place] [address] Result Comment: No c lot detected. Performed By: #### 5 7021-8 ####[facility] LABCLIA [id number] [address] [address] [place] CNDSon 06-07-2023 CNDS Normal [facility] Comprehensive metabolic 2000 panelon 06-07-2023 Albumin [Mass/Vol] 3.2 g/dL Low 3.9-4.9 [facility] Comment on above: Order Comment: Speci men Type: BLOOD SPECIMENOrdering Facility: [facility] Address: [address] [place] [address] Performed By: #### 2 4323-8, 50820-0, 2776-1, 3084-1 ####[facility] LABCLIA [id number] [place] [address] [place] ALP [Catalytic activity/Vol] 63 U/L Normal 34-123 [facility] Comment on above: Order Comment: Speci men Type: BLOOD SPECIMENOrdering Facility: [facility] Address: [address] [place] [address] Performed By: #### 2 4323-8, 88343-1, 2776-1, 3084-1 ####[facility] LABIA [id number] [place] [address] [place] ALT [Catalytic activity/Vol] 18 U/L Normal 7-38 [facility] Comment on above: Order Comment: Speci men Type: BLOOD SPECIMENOrdering Facility: [facility] Address: [address] [place] [address] Performed By: #### 2 4323-8, 03959-2, 2776-1, 3084-1 ####[facility] LABIA [id number] [place] [id number] [place] Anion gap [Moles/Vol] 10 mmol/L Normal 9-18 [facility] Comment on above: Order Comment: Speci men Type: BLOOD SPECIMENOrdering Facility: [facility] Address: [address] [place], [place] [address] Performed By: #### 2 4323-8, 01834-8, 2777-1, 3084-1 ####[facility] LABCLIA [id number] [place] [address] [place] AST [Catalytic activity/Vol] 15 U/L Normal 13-35 [facility] Comment on above: Order Comment: Speci men Type: BLOOD SPECIMENOrdering Facility: [facility] Address: [address] [place] [address] Performed By: #### 2 4323-8, 02336-0, 2777-1, 3084-1 ####[facility] LABCLIA [id number] [place] [address] [place] Bilirubin [Mass/Vol] 0.3 mg/dL Normal 0.2-1.3 [facility] Comment on above: Order Comment: Speci men Type: BLOOD SPECIMENOrdering Facility: [facility] Address: [address] [place] [address] Performed By: #### 2 4323-8, 01096-1, 277-1, 3084-1 ####[facility] LABCLIA [id number] [place] [address] [place] Calcium [Mass/Vol] 8.7 mg/dL Normal 8.5-10.2 [facility] Comment on above: Order Comment: Speci men Type: BLOOD SPECIMENOrdering Facility: [facility] Address: [address] [place] [address] Performed By: #### 2 4323-8, 41037-6, 277-1, 3084-1 ####[facility] LABCLIA [id number] [place] [address] [place] Chloride [Moles/Vol] 110 mmol/L High 97-105 [facility] Comment on above: Order Comment: Speci men Type: BLOOD SPECIMENOrdering Facility: [facility] Address: [address] [place] [address] Performed By: #### 2 4323-8, 80065-1, 2776-09, 3083-09 ####[facility] [id number] [place] [id number] [place] CO2 [Moles/Vol] 21 mmol/L Low 22-30 [facility] Comment on above: Order Comment: Speci men Type: BLOOD SPECIMENOrdering Facility: [facility] Address: [address] [place] [address] Performed By: #### 2 4323-8, 81822-2, 2776-09, 3083- ####[facility] [id number] [place] [address] [place] Creatinine [Mass/Vol] 1.09 mg/dL High 0.58-0.96 [facility] Comment on above: Order Comment: Speci men Type: BLOOD SPECIMENOrdering Facility: [facility] Address: [address] [place] [address] Performed By: #### 2 4323-8, 25427-9, 2776-09, 3083-09 ####[facility] [id number] [place] [address] [place] Creatinine and Glomerular filtration rate.predicted panel (S/P/Bld) 55 mL/min/1.73m??? Low >=60 [facility] Comment on above: Order Comment: Speci men Type: BLOOD SPECIMENOrdering Facility: [facility] Address: [address] [place] [address] Result Comment: Berenice mated Glomerular Filtration Rate [...] actual GFR. Performed By: #### 2 4323-8, 92540-7, 2776-, 3083-1 ####[facility] LABCLIA [id number] [place] [address] [place] Glucose [Mass/Vol] 107 mg/dL High 74-99 [facility] Comment on above: Order Comment: Speci men Type: BLOOD SPECIMENOrdering Facility: [facility] Address: [address] [place] [address] Result Comment: The [place] [employer] (ADA) provides guidance for cutoff [...] Standards of Medical Care in Diabetes 2016, [place] [employer]. Diabetes Care. 2016.39(Suppl 1). Performed By: #### 2 4323-8, 36956-0, 2777-1, 3084-1 ####[facility] LABIA [id number] [place] [address] [place] Potassium [Moles/Vol] 3.8 mmol/L Normal 3.7-5.1 [facility] Comment on above: Order Comment: Speci men Type: BLOOD SPECIMENOrdering Facility: [facility] Address: [address] [place] [address] Performed By: #### 2 4323-8, 24546-3, 2777-1, 3084-1 ####[facility] LABIA [id number] [place] [address] [place] Protein [Mass/Vol] 5.4 g/dL Low 6.3-8.0 [facility] Comment on above: Order Comment: Speci men Type: BLOOD SPECIMENOrdering Facility: [facility] Address: [address] [place] [address] Performed By: #### 2 4323-8, 07354-6, 2777-1, 3084-1 ####[facility] LABIA [id number] [address] [address] [place] Sodium [Moles/Vol] 141 mmol/L Normal 136-144 [facility] Comment on above: Order Comment: Speci men Type: BLOOD SPECIMENOrdering Facility: [facility] Address: [address] [place], [place] [address] Performed By: #### 2 4323-8, 23168-5, 2777-1, 3084-1 ####[facility] [id number] [place] [id number] [place] Urea nitrogen [Mass/Vol] 14 mg/dL Normal 7-21 [facility] Comment on above: Order Comment: Speci men Type: BLOOD SPECIMENOrdering Facility: [facility] Address: [address] [place], [place] [address] Performed By: #### 2 4323-8, 08582-7, 277-1, 3084-1 ####[facility] [id number] [place] [id number] [place] Magnesium SerPl-mCncon 06-07 Magnesium [Mass/Vol] 2.1 mg/dL Normal 1.7-2.3 [facility] Comment on above: Order Comment: Speci men Type: BLOOD SPECIMENOrdering Facility: [facility] Address: [address] [place], [place] [address] Performed By: #### 2 4323-8, 64476-3, 277-1, 3084-1 ####[facility] [id number] [place] [id number] [place] Phosphate SerPl-mCncon 06-07 Phosphate [Mass/Vol] 2.5 mg/dL Low 2.7-4.8 [facility] Comment on above: Order Comment: Speci men Type: BLOOD SPECIMENOrdering Facility: [facility] Address: [facility] [place] [address] Performed By: #### 2 4323-8, 83781-8, 2776-1, 3084-1 ####[facility] LABCLIA [id number] [place] [address] [place] SOCIAL WORKon 06-07-2023 SOCIAL WORK Normal [facility] SOCIAL WORK Normal [facility] Urate SerPl-mCncon 3 Urate [Mass/Vol] 2.8 mg/dL Normal 2.5-6.6 [facility] Comment on above: Order Comment: Speci men Type: BLOOD SPECIMENOrdering Facility: [facility] Address: [address] [place] [address] Performed By: #### 2 4323-8, 86217-5, 2776-09, 3084-1 ####[facility] LABCLIA [id number] [place] [address] [place] CBC W Auto Differential pane l (Bld)on 06-06-2023 Anisocytosis Ql (Bld) Present Normal [facility] Comment on above: Order Comment: Speci men Type: BLOOD SPECIMENOrdering Facility: [facility] Address: [address] [place] [address] Performed By: #### 5 7021-8 ####[facility] LABCLIA [id number] [place] [address] [place] Basophils (Bld) [#/Vol] 0.00 10*3/uL Normal <0.11 [facility] Comment on above: Order Comment: Speci men Type: BLOOD SPECIMENOrdering Facility: [facility] Address: [address] [place] [address] Performed By: #### 5 7021-8 ####[facility] LABCLIA [id number] [place] [address] [place] Basophils/100 WBC (Bld) 0.0 % Normal [facility] Comment on above: Order Comment: Speci men Type: BLOOD SPECIMENOrdering Facility: [facility] Address: [address] [place] [address] Performed By: #### 5 7021-8 ####[facility] LABCLIA [id number] [place] [address] [place] Dacrocytes LM Ql (Bld) Few Normal [facility] Comment on above: Order Comment: Speci men Type: BLOOD SPECIMENOrdering Facility: [facility] Address: [address] [place] [address] Performed By: #### 5 7021-8 ####[facility] LABCLIA [id number] [place] [address] [place] Differential cell count method Nom (Bld) Manual Normal [facility] Comment on above: Order Comment: Speci men Type: BLOOD SPECIMENOrdering Facility: [facility] Address: [address] [place] [address] Performed By: #### 5 7021-8 ####[facility] LABCLIA [id number] [place] [address] [place] Eosinophils (Bld) [#/Vol] 0.00 10*3/uL Normal <0.46 [facility] Comment on above: Order Comment: Speci men Type: BLOOD SPECIMENOrdering Facility: [facility] Address: [address] [place] [address] Performed By: #### 5 7021-8 ####[facility] LABCLIA [id number] [place] [address] [place] Eosinophils/100 WBC (Bld) 0.4 % Normal [facility] Comment on above: Order Comment: Speci men Type: BLOOD SPECIMENOrdering Facility: [facility] Address: [address] [place] [address] Performed By: #### 5 7021-8 ####[facility] LABCLIA [id number] [place] [address] [place] Erythrocyte distribution width (RBC) [Ratio] 18.8 % High 11.5-15.0 [facility] Comment on above: Order Comment: Speci men Type: BLOOD SPECIMENOrdering Facility: [facility] Address: [address] [place] [address] Performed By: #### 5 7021-8 ####[facility] LABCLIA [id number] [place] [address] [place] Hematocrit (Bld) [Volume fraction] 28.5 % Low 36.0-46.0 [facility] Comment on above: Order Comment: Speci men Type: BLOOD SPECIMENOrdering Facility: [facility] Address: [address] [place] [address] Performed By: #### 5 7021-8 ####[facility] LABIA [id number] [place] [address] [place] Hemoglobin (Bld) [Mass/Vol] 9.6 g/dL Low 11.5-15.5 [facility] Comment on above: Order Comment: Speci men Type: BLOOD SPECIMENOrdering Facility: [facility] Address: [address] [place] [address] Performed By: #### 5 7021-8 ####[facility] LABIA [id number] [place] [address] [place] Lymphocytes (Bld) [#/Vol] 0.86 10*3/uL Low 1.00-4.00 [facility] Comment on above: Order Comment: Speci men Type: BLOOD SPECIMENOrdering Facility: [facility] Address: [address] [place] [address] Performed By: #### 5 7021-8 ####[facility] LABCLIA [id number] [place] [address] [place] Lymphocytes/100 WBC (Bld) 91.2 % Normal [facility] Comment on above: Order Comment: Speci men Type: BLOOD SPECIMENOrdering Facility: [facility] Address: [facility] [place] [address] Performed By: #### 5 7021-8 ####[facility] LABIA [id number] [place] [address] [place] MCH (RBC) [Entitic mass] 32.0 pg Normal 26.0-34.0 [facility] Comment on above: Order Comment: Speci men Type: BLOOD SPECIMENOrdering Facility: [facility] Address: [address] [place] [address] Performed By: #### 5 7021-8 ####[facility] [id number] [place] [address] [place] MCHC (RBC) [Mass/Vol] 33.7 g/dL Normal 30.5-36.0 [facility] Comment on above: Order Comment: Speci men Type: BLOOD SPECIMENOrdering Facility: [facility] Address: [address] [place] [address] Performed By: #### 5 7021-8 ####[facility] LABIA [id number] [place] [address] [place] MCV (RBC) [Entitic vol] 95.0 fL Normal 80.0-100.0 [facility] Comment on above: Order Comment: Speci men Type: BLOOD SPECIMENOrdering Facility: [facility] Address: [address] [place] [address] Performed By: #### 5 7021-8 ####[facility] LABIA [id number] [place] [address] [place] Monocytes (Bld) [#/Vol] 0.00 10*3/uL Normal <0.87 [facility] Comment on above: Order Comment: Speci men Type: BLOOD SPECIMENOrdering Facility: [facility] Address: [address] [place] [address] Performed By: #### 5 7021-8 ####[facility] LABIA [id number] [place] [address] [place] Monocytes/100 WBC (Bld) 0.0 % Normal [facility] Comment on above: Order Comment: Speci men Type: BLOOD SPECIMENOrdering Facility: [facility] Address: [address] [place] [address] Performed By: #### 5 7021-8 ####[facility] LABCLIA [id number] [place] [address] [place] Neutrophils (Bld) [#/Vol] 0.08 10*3/uL Low 1.45-7.50 [facility] Comment on above: Order Comment: Speci men Type: BLOOD SPECIMENOrdering Facility: [facility] Address: [address] [place] [address] Performed By: #### 5 7021-8 ####[facility] LABCLIA [id number] [place] [address] [place] Neutrophils/100 WBC (Bld) 8.4 % Normal [facility] Comment on above: Order Comment: Speci men Type: BLOOD SPECIMENOrdering Facility: [facility] Address: [address] [place] [address] Performed By: #### 5 7021-8 ####[facility] LABCLIA [id number] [place] [address] [place] Nucleated RBC (Bld) [#/Vol] 10*3/uL Normal <0.01 [facility] Comment on above: Order Comment: Speci men Type: BLOOD SPECIMENOrdering Facility: [facility] Address: [address] [place] [address] Performed By: #### 5 7021-8 ####[facility] LABCLIA [id number] [place] [address] [place] Nucleated RBC/100 WBC (Bld) [Ratio] 0.0 /100 WBC Normal [facility] Comment on above: Order Comment: Speci men Type: BLOOD SPECIMENOrdering Facility: [facility] Address: [address] [place] [address] Performed By: #### 5 7021-8 ####[facility] LABIA [id number] [place] [address] [place] Ovalocytes LM Ql (Bld) Few Normal [facility] Comment on above: Order Comment: Speci men Type: BLOOD SPECIMENOrdering Facility: [facility] Address: [address] [place] [address] Performed By: #### 5 7021-8 ####[facility] LABIA [id number] [place] [address] [place] Platelet mean volume (Bld) [Entitic vol] Normal [facility] Comment on above: Order Comment: Speci men Type: BLOOD SPECIMENOrdering Facility: [facility] Address: [address] [place] [address] Result Comment: Unab le to Report. Performed By: #### 5 7021-8 ####[facility] LABIA [id number] [place] [address] [place] Platelets (Bld) [#/Vol] 12 10*3/uL Low 150-400 [facility] Comment on above: Order Comment: Speci men Type: BLOOD SPECIMENOrdering Facility: [facility] Address: [address] [place] [address] Result Comment: Resu lts checked and verified.No clot detected. Performed By: #### 5 7021-8 ####[facility] LABIA [id number] [place] [address] [place] Platelets Estimate (Bld) [#/Vol] Decreased Normal [facility] Comment on above: Order Comment: Speci men Type: BLOOD SPECIMENOrdering Facility: [facility] Address: [address] [place] [address] Performed By: #### 5 7021-8 ####[facility] LABIA [id number] [place] [id number] [place] RBC (Bld) [#/Vol] 3.00 10*6/uL Low 3.90-5.20 [facility] Comment on above: Order Comment: Speci men Type: BLOOD SPECIMENOrdering Facility: [facility] Address: [address] [place] [address] Performed By: #### 5 7021-8 ####[facility] LABCLIA [id number] [place] [address] [place] RBC FRAGMENTS Few Abnormal None Seen [facility] Comment on above: Order Comment: Speci men Type: BLOOD SPECIMENOrdering Facility: [facility] Address: [address] [place] [address] Performed By: #### 5 7021-8 ####[facility] LABCLIA [id number] [place] [address] [place] RED CELL MORPH Reviewed: see result s of individual morphologies Normal [facility] Comment on above: Order Comment: Speci men Type: BLOOD SPECIMENOrdering Facility: [facility] Address: [address] [place] [address] Performed By: #### 5 7021-8 ####[facility] LABCLIA [id number] [place] [address] [place] WBC (Bld) [#/Vol] 0.94 10*3/uL Low 3.70-11.00 [facility] Comment on above: Order Comment: Speci men Type: BLOOD SPECIMENOrdering Facility: [facility] Address: [address] [place] [address] Result Comment: No c lot detected. Performed By: #### 5 7021-8 ####[facility] LABCLIA [id number] [place] [address] [place] CBC panel Auto (Bld)on 06-06 Erythrocyte distribution width (RBC) [Ratio] 18.6 % High 11.5-15.0 [facility] Comment on above: Order Comment: Speci men Type: BLOOD SPECIMENOrdering Facility: [facility] Address: [address] [address] Performed By: #### 5 8410-2 ####[facility] LABIA [id number] [address] [place] Hematocrit (Bld) [Volume fraction] 21.7 % Low 36.0-46.0 [facility] Comment on above: Order Comment: Speci men Type: BLOOD SPECIMENOrdering Facility: [facility] Address: [address] [address] Performed By: #### 5 8410-2 ####[facility] LABIA [id number] [address] [place] Hemoglobin (Bld) [Mass/Vol] 7.3 g/dL Low 11.5-15.5 [facility] Comment on above: Order Comment: Speci men Type: BLOOD SPECIMENOrdering Facility: [facility] Address: [address] [address] Performed By: #### 5 8410-2 ####[facility] LABIA [id number] [address] [place] MCH (RBC) [Entitic mass] 32.2 pg Normal 26.0-34.0 [facility] Comment on above: Order Comment: Speci men Type: BLOOD SPECIMENOrdering Facility: [facility] Address: [address] Performed By: #### 5 8410-2 ####[facility] LABIA [id number] [address] [place] MCHC (RBC) [Mass/Vol] 33.6 g/dL Normal 30.5-36.0 [facility] Comment on above: Order Comment: Speci men Type: BLOOD SPECIMENOrdering Facility: [facility] Address: [address] Performed By: #### 5 8410-2 ####[facility] LABIA [id number] [address] [place] MCV (RBC) [Entitic vol] 95.6 fL Normal 80.0-100.0 [facility] Comment on above: Order Comment: Speci men Type: BLOOD SPECIMENOrdering Facility: [facility] Address: [address] [place] [address] Performed By: #### 5 8410-2 ####[facility] LABIA [id number] [place] [address] [place] Nucleated RBC (Bld) [#/Vol] 0.02 10*3/uL High <0.01 [facility] Comment on above: Order Comment: Speci men Type: BLOOD SPECIMENOrdering Facility: [facility] Address: [address] [place] [address] Performed By: #### 5 8410-2 ####[facility] [id number] [address] [place] Platelet mean volume (Bld) [Entitic vol] Normal [facility] Comment on above: Order Comment: Speci men Type: BLOOD SPECIMENOrdering Facility: [facility] Address: [address] [place] [address] Result Comment: Unab le to Report. Performed By: #### 5 8410-2 ####[facility] [id number] [address] Platelets (Bld) [#/Vol] 14 10*3/uL Low 150-400 [facility] Comment on above: Order Comment: Speci men Type: BLOOD SPECIMENOrdering Facility: [facility] Address: [address] [place] [address] Result Comment: Resu lts checked and verified.No clot detected. Performed By: #### 5 8410-2 ####[facility] LABIA [id number] [place] [address] [place] RBC (Bld) [#/Vol] 2.27 10*6/uL Low 3.90-5.20 [facility] Comment on above: Order Comment: Speci men Type: BLOOD SPECIMENOrdering Facility: [facility] Address: [address] [place] [address] Performed By: #### 5 8410-2 ####[facility] LABCLIA [id number] [place] [address] [place] WBC (Bld) [#/Vol] 1.17 10*3/uL Low 3.70-11.00 [facility] Comment on above: Order Comment: Speci men Type: BLOOD SPECIMENOrdering Facility: [facility] Address: [address] [place] [address] Result Comment: No c lot detected. Performed By: #### 5 8410-2 ####[facility] LABCLIA [id number] [place] [address] [place] [facility] Comprehensive metabolic 2000 panelon 06-06-2023 Albumin [Mass/Vol] 3.6 g/dL Low 3.9-4.9 [facility] Comment on above: Order Comment: Speci men Type: BLOOD SPECIMENOrdering Facility: [facility] Address: [address] [place] [address] Performed By: #### 1 9123-9, 2777-1, 3084-1, 15079-8 ####[facility] LABCLIA [id number] [place] [address] [place] ALP [Catalytic activity/Vol] 59 U/L Normal 34-123 [facility] Comment on above: Order Comment: Speci men Type: BLOOD SPECIMENOrdering Facility: [facility] Address: [address] [place] [address] Performed By: #### 1 9123-9, 2777-1, 3084-1, 95210-3 ####[facility] LABCLIA [id number] [place] [address] [place] ALT [Catalytic activity/Vol] 21 U/L Normal 7-38 [facility] Comment on above: Order Comment: Speci men Type: BLOOD SPECIMENOrdering Facility: [facility] Address: [address] [place] [address] Performed By: #### 1 9123-9, 2777-1, 308-, 78586-8 ####[facility] LABCLIA [id number] [place] [address] [place] Anion gap [Moles/Vol] 11 mmol/L Normal 9-18 [facility] Comment on above: Order Comment: Speci men Type: BLOOD SPECIMENOrdering Facility: [facility] Address: [address] [place] [address] Performed By: #### 1 9123-9, 2777-, 3083-09, 03825-4 ####[facility] LABIA [id number] [place] [address] [place] AST [Catalytic activity/Vol] 15 U/L Normal 13-35 [facility] Comment on above: Order Comment: Speci men Type: BLOOD SPECIMENOrdering Facility: [facility] Address: [address] [place] [address] Performed By: #### 1 9123-9, 2777-, 3083-09, 45899-5 ####[facility] LABIA [id number] [place] [address] [place] Bilirubin [Mass/Vol] 0.4 mg/dL Normal 0.2-1.3 [facility] Comment on above: Order Comment: Speci men Type: BLOOD SPECIMENOrdering Facility: [facility] Address: [address] [place], [place] [address] Performed By: #### 1 9123-9, 2777-1, 308-, 05668-8 ####[facility] LABCLIA [id number] [place] [address] [place] Calcium [Mass/Vol] 8.8 mg/dL Normal 8.5-10.2 [facility] Comment on above: Order Comment: Speci men Type: BLOOD SPECIMENOrdering Facility: [facility] Address: [address] [place] [address] Performed By: #### 1 9123-9, 2777-1, 3083-, 88850-2 ####[facility] LABCLIA [id number] [place] [address] [place] Chloride [Moles/Vol] 108 mmol/L High 97-105 [facility] Comment on above: Order Comment: Speci men Type: BLOOD SPECIMENOrdering Facility: [facility] Address: [address] [place] [address] Performed By: #### 1 9123-9, 277-, 3083-09, 00233-6 ####[facility] LABCLIA [id number] [place] [address] [place] CO2 [Moles/Vol] 21 mmol/L Low 22-30 [facility] Comment on above: Order Comment: Speci men Type: BLOOD SPECIMENOrdering Facility: [facility] Address: [address] [place] [address] Performed By: #### 1 9123-9, 277-, 3083-09, 77464-5 ####[facility] LABCLIA [id number] [place] [address] [place] Creatinine [Mass/Vol] 1.06 mg/dL High 0.58-0.96 [facility] Comment on above: Order Comment: Speci men Type: BLOOD SPECIMENOrdering Facility: [facility] Address: [address] [place] [address] Performed By: #### 1 9123-9, 2777-1, 308-, 87222-7 ####[facility] LABCLIA [id number] [place] [address] [place] Creatinine and Glomerular filtration rate.predicted panel (S/P/Bld) 57 mL/min/1.73m??? Low >=60 [facility] Comment on above: Order Comment: Elvia escobra Type: BLOOD SPECIMENOrdering Facility: [facility] Address: [address] [place] [address] Result Comment: Berenice mated Glomerular Filtration Rate [...] Performed By: #### 1 9123-9, 2777-1, 3084-1, 79767-5 ####[facility] LABCLIA [id number] [place] [address] [place] Glucose [Mass/Vol] 107 mg/dL High 74-99 [facility] Comment on above: Order Comment: Elvia escobar Type: BLOOD SPECIMENOrdering Facility: [facility] Address: [address] [place] [address] Result Comment: The [place] [employer] (ADA) provides guidance for cutoff [...] Standards of Medical Care in Diabetes 2016, [place] [employer]. Diabetes Care. 2016.39(Suppl 1). Performed By: #### 1 9123-9, 2777-1, 3084-1, 91339-9 ####[facility] LABCLIA [id number] [place] [address] [place] Potassium [Moles/Vol] 3.4 mmol/L Low 3.7-5.1 [facility] Comment on above: Order Comment: Speci men Type: BLOOD SPECIMENOrdering Facility: [facility] Address: [address] [place] [address] Performed By: #### 1 9123-9, 277-1, 3083-09, 23423-1 ####[facility] LABCLIA [id number] [place] [address] [place] Protein [Mass/Vol] 5.6 g/dL Low 6.3-8.0 [facility] Comment on above: Order Comment: Speci men Type: BLOOD SPECIMENOrdering Facility: [facility] Address: [address] [place] [address] Performed By: #### 1 9123-9, 277-, 3083-09, 88031-8 ####[facility] LABIA [id number] [place] [address] [place] Sodium [Moles/Vol] 140 mmol/L Normal 136-144 [facility] Comment on above: Order Comment: Speci men Type: BLOOD SPECIMENOrdering Facility: [facility] Address: [address] [place], [place] [address] Performed By: #### 1 9123-9, 277-, 3083-09, 91898-6 ####[facility] LABCLIA [id number] [address] [address] [place] Urea nitrogen [Mass/Vol] 16 mg/dL Normal 7-21 [facility] Comment on above: Order Comment: Speci men Type: BLOOD SPECIMENOrdering Facility: [facility] Address: [address] [place] [address] Performed By: #### 1 9123-9, 2777-1, 3083-, 03289-2 ####[facility] LABCLIA [id number] [place] [address] [place] Magnesium SerPl-ncon 06-06 Magnesium [Mass/Vol] 2.0 mg/dL Normal 1.7-2.3 [facility] Comment on above: Order Comment: Speci men Type: BLOOD SPECIMENOrdering Facility: [facility] Address: [address] [place] [address] Performed By: #### 1 9123-9, 2777-1, 3084-1, 05776-1 ####[facility] LABCLIA [id number] [place] [address] [place] Phosphate SerPl-mCncon 06-06 Phosphate [Mass/Vol] 2.8 mg/dL Normal 2.7-4.8 [facility] Comment on above: Order Comment: Speci men Type: BLOOD SPECIMENOrdering Facility: [facility] Address: [address] [place] [address] Performed By: #### 1 9123-9, 2777-1, 3084-1, 81877-7 ####[facility] LABIA [id number] [address] [place] TYPE + SCREENon 06-06-2023 ABO O Normal [facility] Comment on above: Order Comment: Speci men Type: BLOOD SPECIMENOrdering Facility: [facility] Address: [address] [place] [address] Performed By: #### T SCR ####[facility] BLOOD BANKIA [id number] [place] [address] [place] HISTORICAL AB SCR STATUS Negative Normal [facility] Comment on above: Order Comment: Speci men Type: BLOOD SPECIMENOrdering Facility: [facility] Address: [address] [place] [address] Performed By: #### T SCR ####[facility] BLOOD BANKIA [id number] [address] [place] Rh Nom (Bld) Positive Normal [facility] Comment on above: Order Comment: Speci men Type: BLOOD SPECIMENOrdering Facility: [facility] Address: [address] [place] [address] Performed By: #### T SCR ####[facility] BLOOD BANKCLIA [id number] [place] [address] [place] TYPE AND SCREEN EXPIRATION 06/09/2023 23:59 Normal [facility] Comment on above: Order Comment: Speci men Type: BLOOD SPECIMENOrdering Facility: [facility] Address: [address] [place] [address] Performed By: #### T SCR ####[facility] BLOOD BANKIA [id number] [address] [place] Urate SerPl-mCncon 3 Urate [Mass/Vol] 2.9 mg/dL Normal 2.5-6.6 [facility] Comment on above: Order Comment: Speci men Type: BLOOD SPECIMENOrdering Facility: [facility] Address: [address] [place] [address] Performed By: #### 1 9123-9, 2777-1, 3084-1, 87462-1 ####[facility] LABCLIA [id number] [place] [address] [place] CBC W Auto Differential pane l (Bld)on 06-05-2023 Anisocytosis Ql (Bld) Present Normal [facility] Comment on above: Order Comment: Speci men Type: BLOOD SPECIMENOrdering Facility: [facility] Address: [address] [place] [address] Performed By: #### 5 7021-8 ####[facility] LABCLIA [id number] [place] [address] [place] Basophils (Bld) [#/Vol] 0.00 10*3/uL Normal <0.11 [facility] Comment on above: Order Comment: Speci men Type: BLOOD SPECIMENOrdering Facility: [facility] Address: [address] [place], [place] [address] Performed By: #### 5 7021-8 ####[facility] LABCLIA [id number] [place] [address] [place] Basophils/100 WBC (Bld) 0.0 % Normal [facility] Comment on above: Order Comment: Speci men Type: BLOOD SPECIMENOrdering Facility: [facility] Address: [address] [place], [place] [address] Performed By: #### 5 7021-8 ####[facility] LABCLIA [id number] [place] [address] [place] Dacrocytes LM Ql (Bld) Few Normal [facility] Comment on above: Order Comment: Speci men Type: BLOOD SPECIMENOrdering Facility: [facility] Address: [address] [place], [place] [address] Performed By: #### 5 7021-8 ####[facility] LABCLIA [id number] [place] [address] [place] Differential cell count method Nom (Bld) Manual Normal [facility] Comment on above: Order Comment: Speci men Type: BLOOD SPECIMENOrdering Facility: [facility] Address: [address] [place], [place] [address] Performed By: #### 5 7021-8 ####[facility] LABCLIA [id number] [place] [address] [place] Eosinophils (Bld) [#/Vol] 0.02 10*3/uL Normal <0.46 [facility] Comment on above: Order Comment: Speci men Type: BLOOD SPECIMENOrdering Facility: [facility] Address: [address] [place], [place] [address] Performed By: #### 5 7021-8 ####[facility] LABCLIA [id number] [place] [address] [place] Eosinophils/100 WBC (Bld) 1.7 % Normal [facility] Comment on above: Order Comment: Speci men Type: BLOOD SPECIMENOrdering Facility: [facility] Address: [address] [place] [address] Performed By: #### 5 7021-8 ####[facility] LABIA [id number] [place] [address] [place] Erythrocyte distribution width (RBC) [Ratio] 19.0 % High 11.5-15.0 [facility] Comment on above: Order Comment: Speci men Type: BLOOD SPECIMENOrdering Facility: [facility] Address: [address] [place] [address] Performed By: #### 5 7021-8 ####[facility] LABIA [id number] [place] [address] [place] Hematocrit (Bld) [Volume fraction] 21.7 % Low 36.0-46.0 [facility] Comment on above: Order Comment: Speci men Type: BLOOD SPECIMENOrdering Facility: [facility] Address: [address] [place] [address] Performed By: #### 5 7021-8 ####[facility] LABIA [id number] [place] [address] [place] Hemoglobin (Bld) [Mass/Vol] 7.4 g/dL Low 11.5-15.5 [facility] Comment on above: Order Comment: Speci men Type: BLOOD SPECIMENOrdering Facility: [facility] Address: [address] [place], [place] [address] Performed By: #### 5 7021-8 ####[facility] LABIA [id number] [place] [address] [place] Lymphocytes (Bld) [#/Vol] 1.09 10*3/uL Normal 1.00-4.00 [facility] Comment on above: Order Comment: Speci men Type: BLOOD SPECIMENOrdering Facility: [facility] Address: [address] [place], [place] [address] Performed By: #### 5 7021-8 ####[facility] LABIA [id number] [address] [place] Lymphocytes/100 WBC (Bld) 85.2 % Normal [facility] Comment on above: Order Comment: Speci men Type: BLOOD SPECIMENOrdering Facility: [facility] Address: [address] [place], [place] [address] Performed By: #### 5 7021-8 ####[facility] LABIA [id number] [address] [place] MCH (RBC) [Entitic mass] 32.2 pg Normal 26.0-34.0 [facility] Comment on above: Order Comment: Speci men Type: BLOOD SPECIMENOrdering Facility: [facility] Address: [address] [place], [place] [address] Performed By: #### 5 7021-8 ####[facility] LABIA [id number] [address] [place] MCHC (RBC) [Mass/Vol] 34.1 g/dL Normal 30.5-36.0 [facility] Comment on above: Order Comment: Speci men Type: BLOOD SPECIMENOrdering Facility: [facility] Address: [address] [place] [address] Performed By: #### 5 7021-8 ####[facility] LABIA [id number] [address] [place] MCV (RBC) [Entitic vol] 94.3 fL Normal 80.0-100.0 [facility] Comment on above: Order Comment: Speci men Type: BLOOD SPECIMENOrdering Facility: [facility] Address: [address] [place], [place] [address] Performed By: #### 5 7021-8 ####[facility] LABCLIA [id number] [place] [address] [place] Monocytes (Bld) [#/Vol] 0.01 10*3/uL Normal <0.87 [facility] Comment on above: Order Comment: Speci men Type: BLOOD SPECIMENOrdering Facility: [facility] Address: [address] [place], [place] [address] Performed By: #### 5 7021-8 ####[facility] LABCLIA [id number] [place] [address] [place] Monocytes/100 WBC (Bld) 0.9 % Normal [facility] Comment on above: Order Comment: Speci men Type: BLOOD SPECIMENOrdering Facility: [facility] Address: [address] [place], [place] [address] Performed By: #### 5 7021-8 ####[facility] LABIA [id number] [place] [address] [place] Neutrophils (Bld) [#/Vol] 0.16 10*3/uL Low 1.45-7.50 [facility] Comment on above: Order Comment: Speci men Type: BLOOD SPECIMENOrdering Facility: [facility] Address: [address] [place], [place] [address] Performed By: #### 5 7021-8 ####[facility] LABCLIA [id number] [place] [address] [place] Neutrophils/100 WBC (Bld) 12.2 % Normal [facility] Comment on above: Order Comment: Speci men Type: BLOOD SPECIMENOrdering Facility: [facility] Address: [address] [place] [address] Performed By: #### 5 7021-8 ####[facility] LABCLIA [id number] [place] [address] [place] Nucleated RBC (Bld) [#/Vol] 0.01 10*3/uL High <0.01 [facility] Comment on above: Order Comment: Speci men Type: BLOOD SPECIMENOrdering Facility: [facility] Address: [address] [place] [address] Performed By: #### 5 7021-8 ####[facility] LABCLIA [id number] [address] [place] Nucleated RBC/100 WBC (Bld) [Ratio] 0.9 /100 WBC Normal [facility] Comment on above: Order Comment: Speci men Type: BLOOD SPECIMENOrdering Facility: [facility] Address: [address] [place] [address] Performed By: #### 5 7021-8 ####[facility] LABCLIA [id number] [place] [address] [place] Ovalocytes LM Ql (Bld) Few Normal [facility] Comment on above: Order Comment: Speci men Type: BLOOD SPECIMENOrdering Facility: [facility] Address: [address] [place] [address] Performed By: #### 5 7021-8 ####[facility] LABIA [id number] [place] [address] [place] Platelet mean volume (Bld) [Entitic vol] Normal [facility] Comment on above: Order Comment: Speci men Type: BLOOD SPECIMENOrdering Facility: [facility] Address: [address] [place], [place] [address] Result Comment: Unab le to Report. Performed By: #### 5 7021-8 ####[facility] LABIA [id number] [place] [address] [place] Platelets (Bld) [#/Vol] 7 10*3/uL Critically low 150-400 [facility] Comment on above: Order Comment: Speci men Type: BLOOD SPECIMENOrdering Facility: [facility] Address: [address] [place], [place] [address] Result Comment: Plat elet count confirmed by manual review of peripheral blood smear. No clot detected.Results checked and verified. Performed By: #### 5 7021-8 ####[facility] LABIA [id number] [address] STATES OF [facility] Platelets Estimate (Bld) [#/Vol] Adequate Normal [facility] Comment on above: Order Comment: Speci men Type: BLOOD SPECIMENOrdering Facility: [facility] Address: [address] Performed By: #### 5 7021-8 ####[facility] [id number] [address] [place] [facility] RBC (Bld) [#/Vol] 2.30 10*6/uL Low 3.90-5.20 [facility] Comment on above: Order Comment: Speci men Type: BLOOD SPECIMENOrdering Facility: [facility] Address: [address] [place], [place] [address] Performed By: #### 5 7021-8 ####[facility] [id number] [address] STATES [facility] RED CELL MORPH Reviewed: see result s of individual morphologies Normal [facility] Comment on above: Order Comment: Speci men Type: BLOOD SPECIMENOrdering Facility: [facility] Address: [address] [place], [place] [address] Performed By: #### 5 7021-8 ####[facility] [id number] [place] [address] [place] WBC (Bld) [#/Vol] 1.28 10*3/uL Low 3.70-11.00 [facility] Comment on above: Order Comment: Speci men Type: BLOOD SPECIMENOrdering Facility: [facility] Address: [address] [place], [place] [address] Result Comment: No c lot detected. Performed By: #### 5 7021-8 ####[facility] LABCLIA [id number] [place] [id number] [place] [facility] [place] Comprehensive metabolic 2000 panelon 06-05-2023 Albumin [Mass/Vol] 3.3 g/dL Low 3.9-4.9 [facility] Comment on above: Order Comment: Speci men Type: BLOOD SPECIMENOrdering Facility: [facility] Address: [address] [place] [address] Performed By: #### 2 4323-8, 45694-5, 277-1, 3084-1 ####[facility] LABIA [id number] [address] [place] ALP [Catalytic activity/Vol] 51 U/L Normal 34-123 [facility] Comment on above: Order Comment: Speci men Type: BLOOD SPECIMENOrdering Facility: [facility] Address: [address] [place] [address] Performed By: #### 2 4323-8, 75619-9, 277-1, 3084-1 ####[facility] LABIA [id number] [address] [place] ALT [Catalytic activity/Vol] 19 U/L Normal 7-38 [facility] Comment on above: Order Comment: Speci men Type: BLOOD SPECIMENOrdering Facility: [facility] Address: [address] [place], [place] [address] Performed By: #### 2 4323-8, 70924-8, 2776-1, 3084-1 ####[facility] LABIA [id number] [place] [address] [place] Anion gap [Moles/Vol] 11 mmol/L Normal 9-18 [facility] Comment on above: Order Comment: Speci men Type: BLOOD SPECIMENOrdering Facility: [facility] Address: [address] [place] [address] Performed By: #### 2 4323-8, , 2776-09, 3083- ####[facility] LABCLIA [id number] [place] [address] [place] AST [Catalytic activity/Vol] 21 U/L Normal 13-35 [facility] Comment on above: Order Comment: Speci men Type: BLOOD SPECIMENOrdering Facility: [facility] Address: [address] [place] [address] Performed By: #### 2 4323-8, , 2776-09, 3083- ####[facility] LABIA [id number] [place] [address] [place] Bilirubin [Mass/Vol] 0.4 mg/dL Normal 0.2-1.3 [facility] Comment on above: Order Comment: Speci men Type: BLOOD SPECIMENOrdering Facility: [facility] Address: [address] [place] [address] Performed By: #### 2 4323-8, , 2776-09, 308- ####[facility] LABIA [id number] [place] [address] [place] Calcium [Mass/Vol] 8.7 mg/dL Normal 8.5-10.2 [facility] Comment on above: Order Comment: Speci men Type: BLOOD SPECIMENOrdering Facility: [facility] Address: [address] [place] [address] Performed By: #### 2 4323-8, 55788-6, 2776-09, 308- ####[facility] LABIA [id number] [place] [address] [place] Chloride [Moles/Vol] 108 mmol/L High 97-105 [facility] Comment on above: Order Comment: Speci men Type: BLOOD SPECIMENOrdering Facility: [facility] Address: [address] [place] [address] Performed By: #### 2 4323-8, , 2776-09, 3083-09 ####[facility] LABCLIA [id number] [place] [address] [place] CO2 [Moles/Vol] 22 mmol/L Normal 22-30 [facility] Comment on above: Order Comment: Speci men Type: BLOOD SPECIMENOrdering Facility: [facility] Address: [address] [place] [address] Performed By: #### 2 432-8, , 2776-09, 3083-09 ####[facility] LABIA [id number] [place] [address] [place] Creatinine [Mass/Vol] 1.06 mg/dL High 0.58-0.96 [facility] Comment on above: Order Comment: Speci men Type: BLOOD SPECIMENOrdering Facility: [facility] Address: [address] [place] [address] Performed By: #### 2 432-8, , 2776-09, 3083-09 ####[facility] LABIA [id number] [place] [address] [place] Creatinine and Glomerular filtration rate.predicted panel (S/P/Bld) 57 mL/min/1.73m??? Low >=60 [facility] Comment on above: Order Comment: Speci men Type: BLOOD SPECIMENOrdering Facility: [facility] Address: [address] [place] [address] Result Comment: Berenice mated Glomerular Filtration Rate [...] actual GFR. Performed By: #### 2 4323-8, 10124-4, 2776-, 3083- ####[facility] LABCLIA [id number] [place] [address] [place] Glucose [Mass/Vol] 99 mg/dL Normal 74-99 [facility] Comment on above: Order Comment: Rochellei men Type: BLOOD SPECIMENOrdering Facility: [facility] Address: [address] [place], [place] [address] Result Comment: The [place] [employer] (ADA) provides guidance for cutoff [...] Standards of Medical Care in Diabetes 2016, [place] [employer]. Diabetes Care. 2016.39(Suppl 1). Performed By: #### 2 4323-8, 88306-5, 2777-1, 3084-1 ####[facility] LABIA [id number] [place] [address] [place] Potassium [Moles/Vol] 3.5 mmol/L Low 3.7-5.1 [facility] Comment on above: Order Comment: Speci men Type: BLOOD SPECIMENOrdering Facility: [facility] Address: [address] [place] [address] Performed By: #### 2 4323-8, 01621-8, 2777-1, 3084-1 ####[facility] LABIA [id number] [place] [address] [place] Protein [Mass/Vol] 5.5 g/dL Low 6.3-8.0 [facility] Comment on above: Order Comment: Speci men Type: BLOOD SPECIMENOrdering Facility: [facility] Address: [address] [place] [address] Performed By: #### 2 4323-8, 11672-7, 2777-1, 3084-1 ####[facility] LABCLIA [id number] [place] [address] [place] Sodium [Moles/Vol] 141 mmol/L Normal 136-144 [facility] Comment on above: Order Comment: Speci men Type: BLOOD SPECIMENOrdering Facility: [facility] Address: [address] [place] [address] Performed By: #### 2 4323-8, 34252-5, 7-1, 3084-1 ####[facility] LABIA [id number] [place] [address] [place] Urea nitrogen [Mass/Vol] 12 mg/dL Normal 7-21 [facility] Comment on above: Order Comment: Speci men Type: BLOOD SPECIMENOrdering Facility: [facility] Address: [address] [place] [address] Performed By: #### 2 4323-8, 76160-4, 2777-1, 3084-1 ####[facility] LABIA [id number] [place] [address] [place] Magnesium SerPl-mCncon 06-05 Magnesium [Mass/Vol] 2.0 mg/dL Normal 1.7-2.3 [facility] Comment on above: Order Comment: Speci men Type: BLOOD SPECIMENOrdering Facility: [facility] Address: [address] Performed By: #### 2 4323-8, 51618-2, 2777-1, 3084-1 ####[facility] LABIA [id number] [place] [address] [place] NURSING PROGon 06-05-2023 NURSING PROG Normal [facility] NUTRITIONon 06-05-2023 NUTRITION Normal [facility] OUTSIDE BONE MARROW SLIDE RE VIEWon 06-05-2023 CASE REPORT Normal [facility] Comment on above: Order Comment: Speci men Type: FORMALIN-FIXED PARAFFIN-EMBEDDED TISSUE SPECIMENOrdering Facility: [facility] Outside Review Address: , , Result Comment: Bone Marrow Pathology Report Case: [id number] Provider: Mike Hughes MD Collected: 06/05/2023 04:00 PMOrdering Location: [facility] Received: 06/05/2023 03:57 PMPathologist: Mihaela Flowers MDSpecimen: SLIDE(S), 26 SLIDES (BM23-11) Performed By: #### L [id number] ####[facility] LABIA [id number] [address] DIAGNOSIS COMMENT Normal [facility] Comment on above: Order Comment: Speci men Type: FORMALIN-FIXED PARAFFIN-EMBEDDED TISSUE SPECIMENOrdering Facility: Outside Review Address: , , Result Comment: [...] Dixon from the hematopathology section at the [facility], and he concurs with the above rendered final diagnosis and interpretation. 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)- Increased stainable iron.- Lymphoid aggregates present, favor benign.Peripheral blood smear:- Pancytopenia with macrocytic anemia, absolute neutropenia and few circulating blasts.June 13, 2023 Performed By: #### L [id number] ####[facility] LABCLIA [id number] [address] FINAL PERFORMING LAB Normal [facility] Comment on above: Order Comment: Speci men Type: FORMALIN-FIXED PARAFFIN-EMBEDDED TISSUE SPECIMENOrdering Facility: AP Outside Review Address: , , Result Comment: Diag nostic interpretation performed at [facility], [address] [place] [address] CLIA# [id number] Director: Boris Wood M.D. Performed By: #### L [id number] ####[facility] LABCLIA [id number] [address] MICROSCOPIC DESCRIPTION Normal [facility] Comment on above: Order Comment: Speci men [...] institution performed on the core biopsy (block QJ97-02-K1) were reviewed at the [facility]. CD34 is difficult to interpret due [...] institution performed on the clot section (block SY67-11-F0) were reviewed at the [facility]. CD3 highlights moderate numbers scattered positive [...] section.ANCILLARY TESTS: Ancillary studies were performed at [facility] (see complete scanned reports in [facility] for detailed results). Flow cytometry: ([id number]) Reported to show CD34 positive blasts, comprising 29.8% of total cells that show expression of CD13, CD33, CD34 mod, CD117, HLA-DR, dim CD123, and are negative for cMPO, cCD3, cCD22, cCD79a, Tdt and CD11b. Cytogenetics: ([id number], 05/08/2023) were reported to show an abnormal complex female karyotype.43~45,XX,add(1)(q21),del(3)(q21q25),add(4)(q21),-5,add(7)( q11.2),del(7)(q32),-9,add(9)(q13),nehemiah(11)t(1;11)(q21;q23).-12.-16,+m ar[cp17]. FISH: N/A. Molecular: ([id number]) Molecular NGS studies were reported to show the following clinically significant variants:DNMT3A R635W (VAF 34.4%)RUNX1 F40Wfs*14 (VAF 20.9%)TP53 C238Y (VAF 63.9%) Performed By: #### L [id number] ####[facility] LABCLIA [id number] [facility] [id number] [place] [address] [place] Phosphate SerPl-mCncon 06-05 Phosphate [Mass/Vol] 2.6 mg/dL Low 2.7-4.8 [facility] Comment on above: Order Comment: Speci men Type: BLOOD SPECIMENOrdering Facility: [facility] Address: [address] [place] [address] [place] [address] Performed By: #### 2 4323-8, 96077-6, 2777-1, 3084-1 ####[facility] LABCLIA [id number] [place] [address] [place] Urate SerPl-mCncon 3 Urate [Mass/Vol] 3.0 mg/dL Normal 2.5-6.6 [facility] Comment on above: Order Comment: Speci men Type: BLOOD SPECIMENOrdering Facility: [facility] Address: [address] [place] [address] Performed By: #### 2 4323-8, 25381-7, 277-1, 3084-1 ####[facility] LABCLIA [id number] [address] [place] CASE MANAGEMon 06-04-2023 CASE MANAGEM Normal [facility] CBC W Auto Differential pane l (Bld)on 06-04-2023 Anisocytosis Ql (Bld) Present Normal [facility] Comment on above: Order Comment: Speci men Type: BLOOD SPECIMENOrdering Facility: [facility] Address: [address] [place] [address] Performed By: #### 5 7021-8 ####[facility] LABIA [id number] [place] [address] [place] Basophils (Bld) [#/Vol] 0.00 10*3/uL Normal <0.11 [facility] Comment on above: Order Comment: Speci men Type: BLOOD SPECIMENOrdering Facility: [facility] Address: [address] [place] [address] Performed By: #### 5 7021-8 ####[facility] LABCLIA [id number] [place] [address] [place] Basophils/100 WBC (Bld) 0.0 % Normal [facility] Comment on above: Order Comment: Speci men Type: BLOOD SPECIMENOrdering Facility: [facility] Address: [address] Performed By: #### 5 7021-8 ####[facility] LABCLIA [id number] [address] [place] BLAST% 1.0 % High <=0.0 [facility] Comment on above: Order Comment: Speci men Type: BLOOD SPECIMENOrdering Facility: [facility] Address: [address] [place] [address] Performed By: #### 5 7021-8 ####[facility] LABCLIA [id number] [address] [place] Differential cell count method Nom (Bld) Manual Normal [facility] Comment on above: Order Comment: Speci men Type: BLOOD SPECIMENOrdering Facility: [facility] Address: [address] [place], [place] [address] Performed By: #### 5 7021-8 ####[facility] LABCLIA [id number] [place] [address] [place] Eosinophils (Bld) [#/Vol] 0.01 10*3/uL Normal <0.46 [facility] Comment on above: Order Comment: Speci men Type: BLOOD SPECIMENOrdering Facility: [facility] Address: [address] Performed By: #### 5 7021-8 ####[facility] LABCLIA [id number] [address] [place] Eosinophils/100 WBC (Bld) 1.0 % Normal [facility] Comment on above: Order Comment: Speci men Type: BLOOD SPECIMENOrdering Facility: [facility] Address: [address] Performed By: #### 5 7021-8 ####[facility] LABCLIA [id number] [place] [address] [place] Erythrocyte distribution width (RBC) [Ratio] 19.4 % High 11.5-15.0 [facility] Comment on above: Order Comment: Speci men Type: BLOOD SPECIMENOrdering Facility: [facility] Address: [address] [place] [address] Performed By: #### 5 7021-8 ####[facility] LABCLIA [id number] [place] [address] [place] Hematocrit (Bld) [Volume fraction] 22.8 % Low 36.0-46.0 [facility] Comment on above: Order Comment: Speci men Type: BLOOD SPECIMENOrdering Facility: [facility] Address: [address] [place] [address] Performed By: #### 5 7021-8 ####[facility] LABCLIA [id number] [place] [address] [place] Hemoglobin (Bld) [Mass/Vol] 7.9 g/dL Low 11.5-15.5 [facility] Comment on above: Order Comment: Speci men Type: BLOOD SPECIMENOrdering Facility: [facility] Address: [address] [place], [place] [address] Performed By: #### 5 7021-8 ####[facility] LABIA [id number] [place] [address] [place] Lymphocytes (Bld) [#/Vol] 1.06 10*3/uL Normal 1.00-4.00 [facility] Comment on above: Order Comment: Speci men Type: BLOOD SPECIMENOrdering Facility: [facility] Address: [address] [place], [place] [address] Performed By: #### 5 7021-8 ####[facility] LABCLIA [id number] [place] [address] [place] Lymphocytes/100 WBC (Bld) 87.0 % Normal [facility] Comment on above: Order Comment: Speci men Type: BLOOD SPECIMENOrdering Facility: [facility] Address: [address] Performed By: #### 5 7021-8 ####[facility] [id number] [address] MCH (RBC) [Entitic mass] 32.6 pg Normal 26.0-34.0 [facility] Comment on above: Order Comment: Speci men Type: BLOOD SPECIMENOrdering Facility: [facility] Address: [address] Performed By: #### 5 7021-8 ####[facility] [id number] [address] [place] MCHC (RBC) [Mass/Vol] 34.6 g/dL Normal 30.5-36.0 [facility] Comment on above: Order Comment: Speci men Type: BLOOD SPECIMENOrdering Facility: [facility] Address: [address] Performed By: #### 5 7021-8 ####[facility] [id number] [address] [place] MCV (RBC) [Entitic vol] 94.2 fL Normal 80.0-100.0 [facility] Comment on above: Order Comment: Speci men Type: BLOOD SPECIMENOrdering Facility: [facility] Address: [address] Performed By: #### 5 7021-8 ####[facility] [id number] [place] [address] [place] Monocytes (Bld) [#/Vol] 0.00 10*3/uL Normal <0.87 [facility] Comment on above: Order Comment: Speci men Type: BLOOD SPECIMENOrdering Facility: [facility] Address: [address] Performed By: #### 5 7021-8 ####[facility] LABCLIA [id number] [place] [address] [place] Monocytes/100 WBC (Bld) 0.0 % Normal [facility] Comment on above: Order Comment: Speci men Type: BLOOD SPECIMENOrdering Facility: [facility] Address: [address] [place] [address] Performed By: #### 5 7021-8 ####[facility] LABCLIA [id number] [place] [address] [place] Neutrophils (Bld) [#/Vol] 0.13 10*3/uL Low 1.45-7.50 [facility] Comment on above: Order Comment: Speci men Type: BLOOD SPECIMENOrdering Facility: [facility] Address: [address] [place] [address] Performed By: #### 5 7021-8 ####[facility] LABCLIA [id number] [place] [address] [place] Neutrophils/100 WBC (Bld) 11.0 % Normal [facility] Comment on above: Order Comment: Speci men Type: BLOOD SPECIMENOrdering Facility: [facility] Address: [address] [place], [place] [address] Performed By: #### 5 7021-8 ####[facility] LABCLIA [id number] [place] [address] [place] Nucleated RBC (Bld) [#/Vol] 0.01 10*3/uL High <0.01 [facility] Comment on above: Order Comment: Speci men Type: BLOOD SPECIMENOrdering Facility: [facility] Address: [address] [place], [place] [address] Performed By: #### 5 7021-8 ####[facility] LABCLIA [id number] [place] [address] [place] Nucleated RBC/100 WBC (Bld) [Ratio] 1.0 /100 WBC Normal [facility] Comment on above: Order Comment: Speci men Type: BLOOD SPECIMENOrdering Facility: [facility] Address: [address] [place] [address] Performed By: #### 5 7021-8 ####[facility] LABIA [id number] [place] [address] [place] Ovalocytes LM Ql (Bld) Few Normal [facility] Comment on above: Order Comment: Speci men Type: BLOOD SPECIMENOrdering Facility: [facility] Address: [address] [place] [address] Performed By: #### 5 7021-8 ####[facility] [id number] [place] [address] [place] Platelet mean volume (Bld) [Entitic vol] Normal [facility] Comment on above: Order Comment: Speci men Type: BLOOD SPECIMENOrdering Facility: [facility] Address: [address] [place] [address] Result Comment: Unab le to Report. Performed By: #### 5 7021-8 ####[facility] [id number] [place] [address] [place] Platelets (Bld) [#/Vol] 11 10*3/uL Low 150-400 [facility] Comment on above: Order Comment: Speci men Type: BLOOD SPECIMENOrdering Facility: [facility] Address: [address] [place], [place] [address] Result Comment: No c lot detected.Results checked and verified. Performed By: #### 5 7021-8 ####[facility] [id number] [place] [address] [place] Platelets Estimate (Bld) [#/Vol] Decreased Normal [facility] Comment on above: Order Comment: Speci men Type: BLOOD SPECIMENOrdering Facility: [facility] [facility] Address: [address] [place] [address] Performed By: #### 5 7021-8 ####[facility] LABCLIA [id number] [place] [address] [place] RBC (Bld) [#/Vol] 2.42 10*6/uL Low 3.90-5.20 [facility] Comment on above: Order Comment: Speci men Type: BLOOD SPECIMENOrdering Facility: [facility] Address: [address] [place], [place] [address] Performed By: #### 5 7021-8 ####[facility] LABCLIA [id number] [place] [address] [place] RBC FRAGMENTS Few Abnormal None Seen [facility] Comment on above: Order Comment: Speci men Type: BLOOD SPECIMENOrdering Facility: [facility] Address: [address] [place] [address] Performed By: #### 5 7021-8 ####[facility] LABCLIA [id number] [address] STATES [facility] RED CELL MORPH Reviewed: see result s of individual morphologies Normal [facility] Comment on above: Order Comment: Speci men Type: BLOOD SPECIMENOrdering Facility: [facility] Address: [address] [place], [place] [address] Performed By: #### 5 7021-8 ####[facility] LABCLIA [id number] [place] [address] [place] WBC (Bld) [#/Vol] 1.22 10*3/uL Low 3.70-11.00 [facility] Comment on above: Order Comment: Speci men Type: BLOOD SPECIMENOrdering Facility: [facility] Address: [address] [place] [address] Result Comment: No c lot detected. Performed By: #### 5 7021-8 ####[facility] LABCLIA [id number] [address] [place] Comprehensive metabolic 2000 panelon 06-04-2023 Albumin [Mass/Vol] 3.7 g/dL Low 3.9-4.9 [facility] Comment on above: Order Comment: Speci men Type: BLOOD SPECIMENOrdering Facility: [facility] Address: [address] [place] [address] Performed By: #### 2 4323-8, 03280-0, 7-1, 3084-1 ####[facility] LABCLIA [id number] [place] [address] [place] ALP [Catalytic activity/Vol] 55 U/L Normal 34-123 [facility] Comment on above: Order Comment: Speci men Type: BLOOD SPECIMENOrdering Facility: [facility] Address: [address] [place] [address] Performed By: #### 2 4323-8, 17246-1, 2776-, 3084-1 ####[facility] LABCLIA [id number] [address] [place] ALT [Catalytic activity/Vol] 17 U/L Normal 7-38 [facility] Comment on above: Order Comment: Speci men Type: BLOOD SPECIMENOrdering Facility: [facility] Address: [address] [place] [address] Performed By: #### 2 4323-8, 33672-7, 2776-1, 3084-1 ####[facility] LABCLIA [id number] [address] [place] Anion gap [Moles/Vol] 11 mmol/L Normal 9-18 [facility] Comment on above: Order Comment: Speci men Type: BLOOD SPECIMENOrdering Facility: [facility] Address: [address] [place] [address] Performed By: #### 2 4323-8, 75209-0, 7-1, 3084-1 ####[facility] LABCLIA [id number] [address] [place] AST [Catalytic activity/Vol] 14 U/L Normal 13-35 [facility] Comment on above: Order Comment: Speci men Type: BLOOD SPECIMENOrdering Facility: [facility] Address: [address] [place] [address] Performed By: #### 2 4323-8, 62409-6, 2777-1, 3084-1 ####[facility] LABCLIA [id number] [place] [address] [place] Bilirubin [Mass/Vol] 0.5 mg/dL Normal 0.2-1.3 [facility] Comment on above: Order Comment: Speci men Type: BLOOD SPECIMENOrdering Facility: [facility] Address: [address] [place] [address] Performed By: #### 2 4323-8, 71678-9, 2776-, 308-1 ####[facility] LABIA [id number] [address] [place] Calcium [Mass/Vol] 9.0 mg/dL Normal 8.5-10.2 [facility] Comment on above: Order Comment: Speci men Type: BLOOD SPECIMENOrdering Facility: [facility] Address: [address] [place] [address] Performed By: #### 2 4323-8, 33031-5, 277-1, 3084-1 ####[facility] LABIA [id number] [place] [address] [place] Chloride [Moles/Vol] 107 mmol/L High 97-105 [facility] Comment on above: Order Comment: Speci men Type: BLOOD SPECIMENOrdering Facility: [facility] Address: [address] [place] [address] Performed By: #### 2 4323-8, 48838-1, 2777-1, 3084-1 ####[facility] LABCLIA [id number] [place] [address] [place] CO2 [Moles/Vol] 23 mmol/L Normal 22-30 [facility] Comment on above: Order Comment: Specmaria eugenia men Type: BLOOD SPECIMENOrdering Facility: [facility] Address: [address] [place] [address] Performed By: #### 2 4323-8, 15490-7, 2776-, 3083-1 ####[facility] LABCLIA [id number] [place] [address] [place] Creatinine [Mass/Vol] 0.99 mg/dL High 0.58-0.96 [facility] Comment on above: Order Comment: Elvia men Type: BLOOD SPECIMENOrdering Facility: [facility] Address: [address] [place] [address] Performed By: #### 2 4323-8, 39505-8, 2776-09, 3083- ####[facility] LABIA [id number] [place] [address] [place] Creatinine and Glomerular filtration rate.predicted panel (S/P/Bld) 62 mL/min/1.73m??? Normal >=60 [facility] Comment on above: Order Comment: Elvia escobar Type: BLOOD SPECIMENOrdering Facility: [facility] Address: [address] [place] [address] Result Comment: Berenice mated Glomerular Filtration Rate [...] actual GFR. Performed By: #### 2 4323-8, 86485-5, 2776-, 308-1 ####[facility] LABCLIA [id number] [place] [id number] [place] Glucose [Mass/Vol] 106 mg/dL High 74-99 [facility] Comment on above: Order Comment: Rochellei men Type: BLOOD SPECIMENOrdering Facility: [facility] Address: [address] [place], [place] [address] Result Comment: The [place] [employer] (ADA) provides guidance for cutoff [...] Standards of Medical Care in Diabetes 2016, [place] [employer]. Diabetes Care. 2016.39(Suppl 1). Performed By: #### 2 4323-8, 50985-6, 277-, 3083-1 ####[facility] LABCLIA [id number] [place] [address] [place] Potassium [Moles/Vol] 3.3 mmol/L Low 3.7-5.1 [facility] Comment on above: Order Comment: Elvia escobar Type: BLOOD SPECIMENOrdering Facility: [facility] Address: [address] [place], [place] [address] Performed By: #### 2 4323-8, 37925-0, 27703-03, 3083-1 ####[facility] LABCLIA [id number] [place] [address] [place] Protein [Mass/Vol] 5.7 g/dL Low 6.3-8.0 [facility] Comment on above: Order Comment: Elvia escobar Type: BLOOD SPECIMENOrdering Facility: [facility] Address: [address] [place], [place] [address] Performed By: #### 2 4323-8, 93146-7, 277-, 3083-1 ####[facility] LABCLIA [id number] [place] [address] [place] Sodium [Moles/Vol] 141 mmol/L Normal 136-144 [facility] Comment on above: Order Comment: Speci men Type: BLOOD SPECIMENOrdering Facility: [facility] Address: [address] [place] [address] Performed By: #### 2 4323-8, 80452-2, 2776-1, 3084-1 ####[facility] LABCLIA [id number] [place] [address] [place] Urea nitrogen [Mass/Vol] 11 mg/dL Normal 7-21 [facility] Comment on above: Order Comment: Speci men Type: BLOOD SPECIMENOrdering Facility: [facility] Address: [address] [place] [address] Performed By: #### 2 4323-8, 12413-4, 2776-, 3084-1 ####[facility] LABCLIA [id number] [place] [address] [place] ECG COMPLETEon 06-04-2023 ECG COMPLETE Normal [facility] Magnesium SerPl-mCncon 06-04 Magnesium [Mass/Vol] 2.0 mg/dL Normal 1.7-2.3 [facility] Comment on above: Order Comment: Speci men Type: BLOOD SPECIMENOrdering Facility: [facility] Address: [address] [place], [place] [address] Performed By: #### 2 4323-8, 42131-5, 277-, 3084-1 ####[facility] LABCLIA [id number] [place] [address] [place] Phosphate SerPl-mCncon 06-04 Phosphate [Mass/Vol] 2.7 mg/dL Normal 2.7-4.8 [facility] Comment on above: Order Comment: Speci men Type: BLOOD SPECIMENOrdering Facility: [facility] Address: [address] [place] [address] Performed By: #### 2 4323-8, 98177-7, 2777-1, 3084-1 ####[facility] LABCLIA [id number] [address] [address] [place] SOCIAL WORKon 06-04-2023 SOCIAL WORK Normal [facility] Urate SerPl-mCncon 3 Urate [Mass/Vol] 3.1 mg/dL Normal 2.5-6.6 [facility] Comment on above: Order Comment: Speci men Type: BLOOD SPECIMENOrdering Facility: [facility] Address: [address] [place] [address] Performed By: #### 2 4323-8, 97922-4, 2777-1, 3084-1 ####[facility] LABCLIA [id number] [address] BLOOD BANK PLACEHOLDER, CHANDLER SF[employer] REACTION PATHOLOGY REPORTon 06-03-2023 BLOOD BANK REPORT, TRANSFUSION REACTION PATHOLOGY REPORT See Pathology Report Normal [facility] Comment on above: Order Comment: Speci men Type: BLOOD SPECIMENOrdering Facility: [facility] Address: [address] [place] [address] Performed By: #### T SCR, TRXNU, [id number] ####[facility] BLOOD BANKIA [id number] [address] [place]#### [id number] ####[facility] LABCLIA [id number] [place] [id number] [facility] OF [place] BLOOD BANK REPORT, TRANSFUSI ON REACTION PATHOLOGY REPORTon 06-03-2023 PATHOLOGY INTERPRETATION Normal [facility] Comment on above: Order Comment: Speci men Type: BLOOD SPECIMENOrdering Facility: [facility] Address: [address] [place], [place] [address] Result Comment: Date of symptom onset:June 05ertinent medical history:67-year-old female with past medical history of breast cancer status post lumpectomy and adjuvant radiation therapy and recent diagnosis of acute myeloid leukemia. Patient labs demonstrate pancytopenia and need for platelet transfusion.Transfusion Information:Date Component DIN Start time (h) End time (h) Amount transfused (mL)Monday, June 05, 2023 Platelet [id number] 0328 0440 300 mLSymptoms, signs, and onset:Itching [...] Medicine Staff Physician. Performed By: #### T [facility]ARE SYSTEMMeeU, [id number] ####[facility] BLOOD BANKCLIA [id number] [place] [address] [place]#### [id number] ####[facility] LABCLIA [id number] [place] [address] [place] C diff Tox gens Stl Ql KIAH+p robejose 06-03-2023 C. difficile toxin genes KIAH+probe Ql (Stl) Negative Normal Negative for C. difficile toxin by PCR [facility] Comment on above: Order Comment: Speci men Type: STOOL SPECIMENOrdering Facility: [facility] Address: [address] [place] [address] Performed By: #### 5 4067-4 ####[facility] LABCLIA [id number] [place] [address] [place] CBC W Auto Differential pane l (Bld)on 06-03-2023 Anisocytosis Ql (Bld) Present Normal [facility] Comment on above: Order Comment: Speci men Type: BLOOD SPECIMENOrdering Facility: [facility] Address: [address] [place] [address] Performed By: #### 5 7021-8 ####[facility] LABIA [id number] [place] [address] [place] Basophils (Bld) [#/Vol] 0.00 10*3/uL Normal <0.11 [facility] Comment on above: Order Comment: Speci men Type: BLOOD SPECIMENOrdering Facility: [facility] Address: [address] [place] [address] Performed By: #### 5 7021-8 ####[facility] LABIA [id number] [place] [address] [place] Basophils/100 WBC (Bld) 0.0 % Normal [facility] Comment on above: Order Comment: Speci men Type: BLOOD SPECIMENOrdering Facility: [facility] Address: [address] [place], [place] [address] Performed By: #### 5 7021-8 ####[facility] LABIA [id number] [place] [address] [place] BLAST% 3.0 % High <=0.0 [facility] Comment on above: Order Comment: Speci men Type: BLOOD SPECIMENOrdering Facility: [facility] Address: [address] [place], [place] [address] Performed By: #### 5 7021-8 ####[facility] LABIA [id number] [place] [address] [place] Differential cell count method Nom (Bld) Manual Normal [facility] Comment on above: Order Comment: Speci men Type: BLOOD SPECIMENOrdering Facility: [facility] Address: [address] Performed By: #### 5 7021-8 ####[facility] LABCLIA [id number] [place] [address] [place] Eosinophils (Bld) [#/Vol] 0.02 10*3/uL Normal <0.46 [facility] Comment on above: Order Comment: Speci men Type: BLOOD SPECIMENOrdering Facility: [facility] Address: [address] Performed By: #### 5 7021-8 ####[facility] LABCLIA [id number] [address] [place] Eosinophils/100 WBC (Bld) 2.0 % Normal [facility] Comment on above: Order Comment: Speci men Type: BLOOD SPECIMENOrdering Facility: [facility] Address: [address] Performed By: #### 5 7021-8 ####[facility] LABCLIA [id number] [place] [address] [place] Erythrocyte distribution width (RBC) [Ratio] 19.9 % High 11.5-15.0 [facility] Comment on above: Order Comment: Speci men Type: BLOOD SPECIMENOrdering Facility: [facility] Address: [address] Performed By: #### 5 7021-8 ####[facility] LABCLIA [id number] [place] [address] [place] Hematocrit (Bld) [Volume fraction] 19.0 % Low 36.0-46.0 [facility] Comment on above: Order Comment: Speci men Type: BLOOD SPECIMENOrdering Facility: [facility] Address: [address] Performed By: #### 5 7021-8 ####[facility] LABIA [id number] [place] [address] [place] Hemoglobin (Bld) [Mass/Vol] 6.5 g/dL Low 11.5-15.5 [facility] Comment on above: Order Comment: Speci men Type: BLOOD SPECIMENOrdering Facility: [facility] Address: [address] [place] [address] Performed By: #### 5 7021-8 ####[facility] LABIA [id number] [place] [address] [place] Lymphocytes (Bld) [#/Vol] 0.90 10*3/uL Low 1.00-4.00 [facility] Comment on above: Order Comment: Speci men Type: BLOOD SPECIMENOrdering Facility: [facility] Address: [address] [place] [address] Performed By: #### 5 7021-8 ####[facility] [id number] [place] [address] [place] Lymphocytes/100 WBC (Bld) 76.0 % Normal [facility] Comment on above: Order Comment: Speci men Type: BLOOD SPECIMENOrdering Facility: [facility] Address: [address] [place], [place] [address] Performed By: #### 5 7021-8 ####[facility] LABIA [id number] [place] [address] [place] MCH (RBC) [Entitic mass] 33.2 pg Normal 26.0-34.0 [facility] Comment on above: Order Comment: Speci men Type: BLOOD SPECIMENOrdering Facility: [facility] Address: [address] [place], [place] [address] Performed By: #### 5 7021-8 ####[facility] LABIA [id number] [place] [address] [place] MCHC (RBC) [Mass/Vol] 34.2 g/dL Normal 30.5-36.0 [facility] Comment on above: Order Comment: Speci men Type: BLOOD SPECIMENOrdering Facility: [facility] Address: [address] [place], [place] [address] Performed By: #### 5 7021-8 ####[facility] LABIA [id number] [address] [place] MCV (RBC) [Entitic vol] 96.9 fL Normal 80.0-100.0 [facility] Comment on above: Order Comment: Speci men Type: BLOOD SPECIMENOrdering Facility: [facility] Address: [address] [place], [place] [address] Performed By: #### 5 7021-8 ####[facility] LABIA [id number] [place] [address] [place] Monocytes (Bld) [#/Vol] 0.02 10*3/uL Normal <0.87 [facility] Comment on above: Order Comment: Speci men Type: BLOOD SPECIMENOrdering Facility: [facility] Address: [address] [place], [place] [address] Performed By: #### 5 7021-8 ####[facility] LABIA [id number] [address] [place] Monocytes/100 WBC (Bld) 2.0 % Normal [facility] Comment on above: Order Comment: Speci men Type: BLOOD SPECIMENOrdering Facility: [facility] Address: [address] [place], [place] [address] Performed By: #### 5 7021-8 ####[facility] LABIA [id number] [place] [address] [place] Neutrophils (Bld) [#/Vol] 0.20 10*3/uL Low 1.45-7.50 [facility] Comment on above: Order Comment: Speci men Type: BLOOD SPECIMENOrdering Facility: [facility] Address: [address] Performed By: #### 5 7021-8 ####[facility] LABCLIA [id number] [place] [address] [place] Neutrophils/100 WBC (Bld) 17.0 % Normal [facility] Comment on above: Order Comment: Speci men Type: BLOOD SPECIMENOrdering Facility: [facility] Address: [address] [place], [place] [address] Performed By: #### 5 7021-8 ####[facility] LABCLIA [id number] [place] [address] [place] Nucleated RBC (Bld) [#/Vol] 10*3/uL Normal <0.01 [facility] Comment on above: Order Comment: Speci men Type: BLOOD SPECIMENOrdering Facility: [facility] Address: [address] [place], [place] [address] Performed By: #### 5 7021-8 ####[facility] LABCLIA [id number] [place] [address] [place] Nucleated RBC/100 WBC (Bld) [Ratio] 0.0 /100 WBC Normal [facility] Comment on above: Order Comment: Speci men Type: BLOOD SPECIMENOrdering Facility: [facility] Address: [address] [place] [address] Performed By: #### 5 7021-8 ####[facility] LABCLIA [id number] [place] [address] [place] Ovalocytes LM Ql (Bld) Few Normal [facility] Comment on above: Order Comment: Speci men Type: BLOOD SPECIMENOrdering Facility: [facility] Address: [address] [place] [address] Performed By: #### 5 7021-8 ####[facility] LABCLIA [id number] [place] [address] [place] Platelet mean volume (Bld) [Entitic vol] Normal [facility] Comment on above: Order Comment: Speci men Type: BLOOD SPECIMENOrdering Facility: [facility] Address: [address] [place], [place] [address] Result Comment: Unab le to Report. Performed By: #### 5 7021-8 ####[facility] LABCLIA [id number] [place] [address] [place] Platelets (Bld) [#/Vol] 14 10*3/uL Low 150-400 [facility] Comment on above: Order Comment: Speci men Type: BLOOD SPECIMENOrdering Facility: [facility] Address: [address] [place], [place] [address] Result Comment: Resu lts checked and verified.No clot detected. Performed By: #### 5 7021-8 ####[facility] LABCLIA [id number] [place] [address] [place] Platelets Estimate (Bld) [#/Vol] Decreased Normal [facility] Comment on above: Order Comment: Speci men Type: BLOOD SPECIMENOrdering Facility: [facility] Address: [address] [place], [place] [address] Performed By: #### 5 7021-8 ####[facility] LABCLIA [id number] [place] [address] [place] RBC (Bld) [#/Vol] 1.96 10*6/uL Low 3.90-5.20 [facility] Comment on above: Order Comment: Speci men Type: BLOOD SPECIMENOrdering Facility: [facility] Address: [address] [place], [place] [address] Performed By: #### 5 7021-8 ####[facility] LABCLIA [id number] [place] [address] [place] RBC FRAGMENTS Few Abnormal None Seen [facility] Comment on above: Order Comment: Speci men Type: BLOOD SPECIMENOrdering Facility: [facility] Address: [address] [place] [address] Performed By: #### 5 7021-8 ####[facility] LABIA [id number] [place] [address] [place] RED CELL MORPH Reviewed: see result s of individual morphologies Normal [facility] Comment on above: Order Comment: Speci men Type: BLOOD SPECIMENOrdering Facility: [facility] Address: [address] [place] [address] Performed By: #### 5 7021-8 ####[facility] LABIA [id number] [place] [address] [place] WBC (Bld) [#/Vol] 1.18 10*3/uL Low 3.70-11.00 [facility] Comment on above: Order Comment: Speci men Type: BLOOD SPECIMENOrdering Facility: [facility] Address: [address] [place] [address] Result Comment: No c lot detected. Performed By: #### 5 7021-8 ####[facility] LABIA [id number] [place] [address] [place] Comprehensive metabolic 2000 panelon 06-03-2023 Albumin [Mass/Vol] 3.3 g/dL Low 3.9-4.9 [facility] Comment on above: Order Comment: Speci men Type: BLOOD SPECIMENOrdering Facility: [facility] Address: [address] [place], [place] [address] Performed By: #### 2 4323-8, 45278-4, 2777-1, 3084-1 ####[facility] LABIA [id number] [place] [address] [place] ALP [Catalytic activity/Vol] 50 U/L Normal 34-123 [facility] Comment on above: Order Comment: Speci men Type: BLOOD SPECIMENOrdering Facility: [facility] Address: [address] [place] [address] Performed By: #### 2 4323-8, 82605-1, 2777-1, 3084-1 ####[facility] LABCLIA [id number] [place] [address] [place] ALT [Catalytic activity/Vol] 12 U/L Normal 7-38 [facility] Comment on above: Order Comment: Speci men Type: BLOOD SPECIMENOrdering Facility: [facility] Address: [address] [place], [place] [address] Performed By: #### 2 4323-8, 40371-0, 7-1, 3084-1 ####[facility] LABIA [id number] [place] [address] [place] Anion gap [Moles/Vol] 12 mmol/L Normal 9-18 [facility] Comment on above: Order Comment: Speci men Type: BLOOD SPECIMENOrdering Facility: [facility] Address: [address] [place], [place] [address] Performed By: #### 2 4323-8, 05476-5, 2777-1, 3084-1 ####[facility] LABIA [id number] [place] [address] [place] AST [Catalytic activity/Vol] 12 U/L Low 13-35 [facility] Comment on above: Order Comment: Speci men Type: BLOOD SPECIMENOrdering Facility: [facility] Address: [address] [place], [place] [address] Performed By: #### 2 4323-8, 70817-3, 2776-1, 3084-1 ####[facility] LABIA [id number] [place] [id number] [place] Bilirubin [Mass/Vol] 0.4 mg/dL Normal 0.2-1.3 [facility] Comment on above: Order Comment: Speci men Type: BLOOD SPECIMENOrdering Facility: [facility] Address: [address] [place], [place] [address] Performed By: #### 2 4323-8, 75735-9, 7-1, 3084-1 ####[facility] LABIA [id number] [place] [address] [place] Calcium [Mass/Vol] 9.0 mg/dL Normal 8.5-10.2 [facility] Comment on above: Order Comment: Speci men Type: BLOOD SPECIMENOrdering Facility: [facility] Address: [address] [place] [address] Performed By: #### 2 4323-8, 78245-2, 2776-1, 3084-1 ####[facility] LABIA [id number] [place] [address] [place] Chloride [Moles/Vol] 108 mmol/L High 97-105 [facility] Comment on above: Order Comment: Speci men Type: BLOOD SPECIMENOrdering Facility: [facility] Address: [address] [place] [address] Performed By: #### 2 4323-8, 64815-4, 277-1, 3084-1 ####[facility] [id number] [place] [address] [place] CO2 [Moles/Vol] 21 mmol/L Low 22-30 [facility] Comment on above: Order Comment: Speci men Type: BLOOD SPECIMENOrdering Facility: [facility] Address: [address] [place], [place] [address] Performed By: #### 2 4323-8, 82626-6, 2776-1, 3084-1 ####[facility] LABIA [id number] [place] [id number] [place] Creatinine [Mass/Vol] 0.93 mg/dL Normal 0.58-0.96 [facility] Comment on above: Order Comment: Speci men Type: BLOOD SPECIMENOrdering Facility: [facility] Address: [address] [place], [place] [address] Performed By: #### 2 4323-8, 82659-5, 2777-1, 3084-1 ####[facility] LABIA [id number] [place] [address] [place] Creatinine and Glomerular filtration rate.predicted panel (S/P/Bld) 67 mL/min/1.73m??? Normal >=60 [facility] Comment on above: Order Comment: Elvia escobar Type: BLOOD SPECIMENOrdering Facility: [facility] Address: [address] [id number] Result Comment: Berenice mated Glomerular Filtration Rate [...] actual GFR. Performed By: #### 2 4323-8, 69483-2, 2777-, 3084- ####[facility] LABCLIA [id number] [place] [address] [place] Glucose [Mass/Vol] 111 mg/dL High 74-99 [facility] Comment on above: Order Comment: Elvia escobar Type: BLOOD SPECIMENOrdering Facility: [facility] Address: [address] [place] [address] Result Comment: The [place] [employer] (ADA) provides guidance for cutoff [...] Standards of Medical Care in Diabetes 2016, [place] [employer]. Diabetes Care. 2016.39(Suppl 1). Performed By: #### 2 4323-8, 25257-1, 2777-1, 3084-1 ####[facility] LABIA [id number] [place] [id number] [place] Potassium [Moles/Vol] 3.3 mmol/L Low 3.7-5.1 [facility] Comment on above: Order Comment: Speci men Type: BLOOD SPECIMENOrdering Facility: [facility] Address: [address] [place] [address] Performed By: #### 2 4323-8, 69248-2, 2777-1, 3084-1 ####[facility] LABIA [id number] [place] [address] [place] Protein [Mass/Vol] 5.3 g/dL Low 6.3-8.0 [facility] Comment on above: Order Comment: Speci men Type: BLOOD SPECIMENOrdering Facility: [facility] Address: [address] [place] [address] Performed By: #### 2 4323-8, 12231-8, 277-, 3084-1 ####[facility] LABIA [id number] [place] [address] [place] Sodium [Moles/Vol] 141 mmol/L Normal 136-144 [facility] Comment on above: Order Comment: Speci men Type: BLOOD SPECIMENOrdering Facility: [facility] Address: [address] [place] [address] Performed By: #### 2 4323-8, 02954-9, 277-1, 3084-1 ####[facility] LABIA [id number] [place] [address] [place] Urea nitrogen [Mass/Vol] 9 mg/dL Normal 7-21 [facility] Comment on above: Order Comment: Speci men Type: BLOOD SPECIMENOrdering Facility: [facility] Address: [address] [place], [place] [address] Performed By: #### 2 4323-8, 26902-3, 2776-1, 3084-1 ####[facility] LABCLIA [id number] [place] [address] [place] Magnesium SerPl-mCncon 06-03 Magnesium [Mass/Vol] 1.9 mg/dL Normal 1.7-2.3 [facility] Comment on above: Order Comment: Speci men Type: BLOOD SPECIMENOrdering Facility: [facility] Address: [address] [place] [address] Performed By: #### 2 4323-8, 56727-6, 2776-, 3084-1 ####[facility] LABCLIA [id number] [address] STATES OF [facility] Phosphate SerPl-mCncon 06-03 Phosphate [Mass/Vol] 3.0 mg/dL Normal 2.7-4.8 [facility] Comment on above: Order Comment: Speci men Type: BLOOD SPECIMENOrdering Facility: [facility] Address: [address] [place] [address] Performed By: #### 2 4323-8, 61724-6, 2776-, 3084-1 ####[facility] LABCLIA [id number] [place] [address] [place] TYPE + SCREENon 06-03-2023 ABO O Normal [facility] Comment on above: Order Comment: Speci men Type: BLOOD SPECIMENOrdering Facility: [facility] Address: [address] [place], [place] [address] Performed By: #### T SCR, TRXNU, [id number] ####[facility] BLOOD BANKCLIA [id number] [place] [address] [place]#### [id number] ####[facility] LABCLIA [id number] [place] [address] [place] HISTORICAL AB SCR STATUS Negative Normal [facility] Comment on above: Order Comment: Speci men Type: BLOOD SPECIMENOrdering Facility: [facility] Address: [address] [place] [address] Performed By: #### T SCR, TRXNU, [id number] ####[facility] BLOOD BANKCLIA [id number] [place] [address] [place]#### [id number] ####[facility] LABCLIA [id number] [place] [address] [place] Rh Nom (Bld) Positive Normal [facility] Comment on above: Order Comment: Speci men Type: BLOOD SPECIMENOrdering Facility: [facility] Address: [address] [place] [address] Performed By: #### T SCR, TRXNU, [id number] ####[facility] BLOOD BANKCLIA [id number] [address] [place]#### [id number] ####[facility] LABCLIA [id number] [place] [address] [place] TYPE AND SCREEN EXPIRATION 06/06/2023 23:59 Normal [facility] Comment on above: Order Comment: Speci men Type: BLOOD SPECIMENOrdering Facility: [facility] Address: [address] [place], [place] [address] Performed By: #### T SCR, TRXNU, [id number] ####[facility] BLOOD BANKCLIA [id number] [place] [address] [place]#### [id number] ####[facility] LABCLIA [id number] [place] [address] [place] URTICARIAL REACTIONon 2022 OK TO TRANSFUSE Yes Normal [facility] Comment on above: Order Comment: Speci men Type: BLOOD SPECIMENOrdering Facility: [facility] Address: [address] [place] [address] Performed By: #### T SCR, TRXNU, [id number] ####[facility] BLOOD BANKCLIA [id number] [address] OF [facility]#### [id number] ####[facility] LABCLIA [id number] [address] [place] Urate SerPl-mCncon 3 Urate [Mass/Vol] 3.4 mg/dL Normal 2.5-6.6 [facility] Comment on above: Order Comment: Speci men Type: BLOOD SPECIMENOrdering Facility: [facility] Address: [address] [place] [address] Performed By: #### 2 4323-8, 55395-5, 2777-1, 3084-1 ####[facility] LABCLIA [id number] [place] [address] [place] BMT REC INIT W/Uon 3 ALLOGEN RESULTS TO FOLLOW See Allogen report to follow Normal [facility] Comment on above: Order Comment: Speci men Type: BLOOD SPECIMENOrdering Facility: [facility] Address: [address] [place] [address] Performed By: #### B MTRIW ####[facility] LABORATORIESIA [id number] [place] [address] [place] CBC W Auto Differential pane l (Bld)on 06-02-2023 Anisocytosis Ql (Bld) Present Normal [facility] Comment on above: Order Comment: Speci men Type: BLOOD SPECIMENOrdering Facility: [facility] Address: [address] [place] [address] Performed By: #### 5 7021-8 ####[facility] LABCLIA [id number] [address] [place] Basophils (Bld) [#/Vol] 0.00 10*3/uL Normal <0.11 [facility] Comment on above: Order Comment: Speci men Type: BLOOD SPECIMENOrdering Facility: [facility] Address: [address] [address] Performed By: #### 5 7021-8 ####[facility] LABCLIA [id number] [address] [place] Basophils/100 WBC (Bld) 0.0 % Normal [facility] Comment on above: Order Comment: Speci men Type: BLOOD SPECIMENOrdering Facility: [facility] Address: [address] [place] [address] Performed By: #### 5 7021-8 ####[facility] LABCLIA [id number] [place] [address] [place] BLAST% 2.0 % High <=0.0 [facility] Comment on above: Order Comment: Speci men Type: BLOOD SPECIMENOrdering Facility: [facility] Address: [address] Performed By: #### 5 7021-8 ####[facility] LABCLIA [id number] [place] [address] [place] Differential cell count method Nom (Bld) Manual Normal [facility] Comment on above: Order Comment: Speci men Type: BLOOD SPECIMENOrdering Facility: [facility] Address: [address] Performed By: #### 5 7021-8 ####[facility] LABCLIA [id number] [place] [address] [place] Eosinophils (Bld) [#/Vol] 0.02 10*3/uL Normal <0.46 [facility] Comment on above: Order Comment: Speci men Type: BLOOD SPECIMENOrdering Facility: [facility] Address: [address] Performed By: #### 5 7021-8 ####[facility] LABCLIA [id number] [place] [address] [place] Eosinophils/100 WBC (Bld) 1.0 % Normal [facility] Comment on above: Order Comment: Speci men Type: BLOOD SPECIMENOrdering Facility: [facility] Address: [address] [place] [address] Performed By: #### 5 7021-8 ####[facility] LABCLIA [id number] [place] [address] [place] Erythrocyte distribution width (RBC) [Ratio] 20.5 % High 11.5-15.0 [facility] Comment on above: Order Comment: Speci men Type: BLOOD SPECIMENOrdering Facility: [facility] Address: [address] [place] [address] Performed By: #### 5 7021-8 ####[facility] LABIA [id number] [place] [address] [place] Hematocrit (Bld) [Volume fraction] 20.6 % Low 36.0-46.0 [facility] Comment on above: Order Comment: Speci men Type: BLOOD SPECIMENOrdering Facility: [facility] Address: [address] [place], [place] [address] Performed By: #### 5 7021-8 ####[facility] LABIA [id number] [place] [address] [place] Hemoglobin (Bld) [Mass/Vol] 7.0 g/dL Low 11.5-15.5 [facility] Comment on above: Order Comment: Speci men Type: BLOOD SPECIMENOrdering Facility: [facility] Address: [address] [place], [place] [address] Performed By: #### 5 7021-8 ####[facility] LABCLIA [id number] [place] [address] [place] Lymphocytes (Bld) [#/Vol] 1.46 10*3/uL Normal 1.00-4.00 [facility] Comment on above: Order Comment: Speci men Type: BLOOD SPECIMENOrdering Facility: [facility] Address: [address] [place] [address] Performed By: #### 5 7021-8 ####[facility] LABIA [id number] [address] STATES OF [facility] Lymphocytes/100 WBC (Bld) 87.0 % Normal [facility] Comment on above: Order Comment: Speci men Type: BLOOD SPECIMENOrdering Facility: [facility] Address: [address] [place] [address] Performed By: #### 5 7021-8 ####[facility] [id number] [address] [place] MCH (RBC) [Entitic mass] 33.0 pg Normal 26.0-34.0 [facility] Comment on above: Order Comment: Speci men Type: BLOOD SPECIMENOrdering Facility: [facility] Address: [address] [place], [place] [address] Performed By: #### 5 7021-8 ####[facility] LABIA [id number] [address] [place] MCHC (RBC) [Mass/Vol] 34.0 g/dL Normal 30.5-36.0 [facility] Comment on above: Order Comment: Speci men Type: BLOOD SPECIMENOrdering Facility: [facility] Address: [address] Performed By: #### 5 7021-8 ####[facility] LABIA [id number] [address] [place] MCV (RBC) [Entitic vol] 97.2 fL Normal 80.0-100.0 [facility] Comment on above: Order Comment: Speci men Type: BLOOD SPECIMENOrdering Facility: [facility] Address: [address] [place] [address] Performed By: #### 5 7021-8 ####[facility] LABCLIA [id number] [place] [address] [place] Monocytes (Bld) [#/Vol] 0.00 10*3/uL Normal <0.87 [facility] Comment on above: Order Comment: Speci men Type: BLOOD SPECIMENOrdering Facility: [facility] Address: [address] Performed By: #### 5 7021-8 ####[facility] LABCLIA [id number] [address] OF [facility] Monocytes/100 WBC (Bld) 0.0 % Normal [facility] Comment on above: Order Comment: Speci men Type: BLOOD SPECIMENOrdering Facility: [facility] Address: [address] Performed By: #### 5 7021-8 ####[facility] LABCLIA [id number] [place] [address] [place] Neutrophils (Bld) [#/Vol] 0.17 10*3/uL Low 1.45-7.50 [facility] Comment on above: Order Comment: Speci men Type: BLOOD SPECIMENOrdering Facility: [facility] Address: [address] Performed By: #### 5 7021-8 ####[facility] LABCLIA [id number] [address] [place] Neutrophils/100 WBC (Bld) 10.0 % Normal [facility] Comment on above: Order Comment: Speci men Type: BLOOD SPECIMENOrdering Facility: [facility] Address: [address] Performed By: #### 5 7021-8 ####[facility] LABCLIA [id number] [place] [address] [place] Nucleated RBC (Bld) [#/Vol] 10*3/uL Normal <0.01 [facility] Comment on above: Order Comment: Speci men Type: BLOOD SPECIMENOrdering Facility: [facility] Address: [address] [place] [address] Performed By: #### 5 7021-8 ####[facility] LABCLIA [id number] [place] [address] [place] Nucleated RBC/100 WBC (Bld) [Ratio] 0.0 /100 WBC Normal [facility] Comment on above: Order Comment: Speci men Type: BLOOD SPECIMENOrdering Facility: [facility] Address: [address] [place], [place] [address] Performed By: #### 5 7021-8 ####[facility] LABCLIA [id number] [place] [address] [place] Ovalocytes LM Ql (Bld) Few Normal [facility] Comment on above: Order Comment: Speci men Type: BLOOD SPECIMENOrdering Facility: [facility] Address: [address] [place], [place] [address] Performed By: #### 5 7021-8 ####[facility] LABCLIA [id number] [address] [place] Platelet mean volume (Bld) [Entitic vol] Normal [facility] Comment on above: Order Comment: Speci men Type: BLOOD SPECIMENOrdering Facility: [facility] Address: [address] [place] [address] Result Comment: Unab le to Report. Performed By: #### 5 7021-8 ####[facility] LABCLIA [id number] [place] [address] [place] Platelets (Bld) [#/Vol] 26 10*3/uL Low 150-400 [facility] Comment on above: Order Comment: Speci men Type: BLOOD SPECIMENOrdering Facility: [facility] Address: [address] Result Comment: Resu lts checked and verified.No clot detected. Performed By: #### 5 7021-8 ####[facility] LABCLIA [id number] [place] [address] [place] Platelets Estimate (Bld) [#/Vol] Decreased Normal [facility] Comment on above: Order Comment: Speci men Type: BLOOD SPECIMENOrdering Facility: [facility] Address: [address] [place], [place] [address] Performed By: #### 5 7021-8 ####[facility] LABCLIA [id number] [place] [address] [place] Polychromasia LM Ql (Bld) Slight Normal [facility] Comment on above: Order Comment: Speci men Type: BLOOD SPECIMENOrdering Facility: [facility] Address: [address] [place], [place] [address] Performed By: #### 5 7021-8 ####[facility] LABCLIA [id number] [place] [address] [place] RBC (Bld) [#/Vol] 2.12 10*6/uL Low 3.90-5.20 [facility] Comment on above: Order Comment: Speci men Type: BLOOD SPECIMENOrdering Facility: [facility] Address: [address] [place], [place] [address] Performed By: #### 5 7021-8 ####[facility] LABCLIA [id number] [place] [address] [place] RBC FRAGMENTS Few Abnormal None Seen [facility] Comment on above: Order Comment: Speci men Type: BLOOD SPECIMENOrdering Facility: [facility] Address: [address] [place], [place] [address] Performed By: #### 5 7021-8 ####[facility] LABCLIA [id number] [address] [place] RED CELL MORPH Reviewed: see result s of individual morphologies Normal [facility] Comment on above: Order Comment: Speci men Type: BLOOD SPECIMENOrdering Facility: [facility] Address: [address] [place] [address] Performed By: #### 5 7021-8 ####[facility] LABIA [id number] [place] [address] [place] WBC (Bld) [#/Vol] 1.68 10*3/uL Low 3.70-11.00 [facility] Comment on above: Order Comment: Speci men Type: BLOOD SPECIMENOrdering Facility: [facility] Address: [address] [place] [address] Result Comment: No c lot detected. Performed By: #### 5 7021-8 ####[facility] LABIA [id number] [address] CMV IgG Qnon 06-02-2023 CMV IGG QUAL Negative Normal Negative [facility] Comment on above: Order Comment: Speci men Type: BLOOD SPECIMENOrdering Facility: [facility] Address: [address] [place] [address] Result Comment: No s erological evidence of past exposure to Cytomegalovirus. Cannot exclude recent infection if the specimen collected within 4-6 weeks after infection. Performed By: #### 7 852-7 ####[facility] LABIA [id number] [address] OF [facility] CMV IgG SerPl-aCncon 023 CMV IgG Qn <0.20 Normal [facility] Comment on above: Order Comment: Speci men Type: BLOOD SPECIMENOrdering Facility: [facility] Address: [address] [place] [address] Result Comment: The magnitude of the measured result is not indicative of the amount of antibody present.U/mL values are interpreted as follows:Negative <0.6Equivocal 0.6 to <0.70Positive >=0.70 Performed By: #### 7 852-7 ####[facility] LABIA [id number] [place] [id number] [facility] Comprehensive metabolic 2000 panelon 06-02-2023 Albumin [Mass/Vol] 3.4 g/dL Low 3.9-4.9 [facility] Comment on above: Order Comment: Speci men Type: BLOOD SPECIMENOrdering Facility: [facility] Address: [address] [address] Performed By: #### 2 4323-8, 87308-3, 2777-1, 3084-1 ####[facility] LABIA [id number] [address] [place] ALP [Catalytic activity/Vol] 58 U/L Normal 34-123 [facility] Comment on above: Order Comment: Speci men Type: BLOOD SPECIMENOrdering Facility: [facility] Address: [address] [place], [place] [address] Performed By: #### 2 4323-8, 28118-2, 2777-1, 3084-1 ####[facility] [id number] [address] [place] ALT [Catalytic activity/Vol] 15 U/L Normal 7-38 [facility] Comment on above: Order Comment: Speci men Type: BLOOD SPECIMENOrdering Facility: [facility] Address: [address] [place], [place] [address] Performed By: #### 2 4323-8, 40555-1, 7-1, 3084-1 ####[facility] LABIA [id number] [address] [place] Anion gap [Moles/Vol] 11 mmol/L Normal 9-18 [facility] Comment on above: Order Comment: Speci men Type: BLOOD SPECIMENOrdering Facility: [facility] Address: [address] [place], [place] [address] Performed By: #### 2 4323-8, 21974-0, 2776-, 3084-1 ####[facility] LABCLIA [id number] [place] [address] [place] AST [Catalytic activity/Vol] 15 U/L Normal 13-35 [facility] Comment on above: Order Comment: Speci men Type: BLOOD SPECIMENOrdering Facility: [facility] Address: [address] [place] [address] Performed By: #### 2 4323-8, 41748-4, 2776-, 3084-1 ####[facility] LABIA [id number] [place] [address] [place] Bilirubin [Mass/Vol] 0.3 mg/dL Normal 0.2-1.3 [facility] Comment on above: Order Comment: Speci men Type: BLOOD SPECIMENOrdering Facility: [facility] Address: [address] [place] [address] Performed By: #### 2 4323-8, 42244-3, 2776-, 3084-1 ####[facility] LABIA [id number] [place] [address] [place] Calcium [Mass/Vol] 8.2 mg/dL Low 8.5-10.2 [facility] Comment on above: Order Comment: Speci men Type: BLOOD SPECIMENOrdering Facility: [facility] Address: [address] [place], [place] [address] Performed By: #### 2 4323-8, 91275-6, 2776-, 3084-1 ####[facility] LABIA [id number] [place] [address] [place] Chloride [Moles/Vol] 107 mmol/L High 97-105 [facility] Comment on above: Order Comment: Speci men Type: BLOOD SPECIMENOrdering Facility: [facility] Address: [address] [place], [place] [address] Performed By: #### 2 4323-8, 74392-3, 2776-09, 3083-09 ####[facility] LABCLIA [id number] [place] [address] [place] CO2 [Moles/Vol] 22 mmol/L Normal 22-30 [facility] Comment on above: Order Comment: Speci men Type: BLOOD SPECIMENOrdering Facility: [facility] Address: [address] [place] [address] Performed By: #### 2 4323-8, 88269-7, 2776-09, 3083- ####[facility] LABCLIA [id number] [address] [place] Creatinine [Mass/Vol] 0.96 mg/dL Normal 0.58-0.96 [facility] Comment on above: Order Comment: Speci men Type: BLOOD SPECIMENOrdering Facility: [facility] Address: [address] [place] [address] Performed By: #### 2 4323-8, , 2776-09, 3083-09 ####[facility] LABIA [id number] [address] [place] Creatinine and Glomerular filtration rate.predicted panel (S/P/Bld) 64 mL/min/1.73m??? Normal >=60 [facility] Comment on above: Order Comment: Speci men Type: BLOOD SPECIMENOrdering Facility: [facility] Address: [address] [place] [address] Result Comment: Berenice mated Glomerular Filtration Rate [...] actual GFR. Performed By: #### 2 4323-8, 67246-3, 2776-, 3083- ####[facility] LABCLIA [id number] [place] [address] [place] Glucose [Mass/Vol] 105 mg/dL High 74-99 [facility] Comment on above: Order Comment: Speci men Type: BLOOD SPECIMENOrdering Facility: [facility] Address: [address] [place] [address] Result Comment: The [place] [employer] (ADA) provides guidance for cutoff [...] Standards of Medical Care in Diabetes 2016, [place] [employer]. Diabetes Care. 2016.39(Suppl 1). Performed By: #### 2 4323-8, 09804-8, 2777-1, 3084-1 ####[facility] LABIA [id number] [place] [address] [place] Potassium [Moles/Vol] 3.3 mmol/L Low 3.7-5.1 [facility] Comment on above: Order Comment: Speci men Type: BLOOD SPECIMENOrdering Facility: [facility] Address: [address] [place] [address] Performed By: #### 2 4323-8, 64540-2, 2777-1, 3084-1 ####[facility] LABIA [id number] [place] [address] [place] Protein [Mass/Vol] 5.4 g/dL Low 6.3-8.0 [facility] Comment on above: Order Comment: Speci men Type: BLOOD SPECIMENOrdering Facility: [facility] Address: [address] [place] [address] Performed By: #### 2 4323-8, 94231-5, 2777-1, 3084-1 ####[facility] LABIA [id number] [place] [address] [place] Sodium [Moles/Vol] 140 mmol/L Normal 136-144 [facility] Comment on above: Order Comment: Speci men Type: BLOOD SPECIMENOrdering Facility: [facility] Address: [address] [place] [address] Performed By: #### 2 4323-8, 36794-3, 277-1, 3084-1 ####[facility] LABIA [id number] [place] [address] [place] Urea nitrogen [Mass/Vol] 13 mg/dL Normal 7-21 [facility] Comment on above: Order Comment: Speci men Type: BLOOD SPECIMENOrdering Facility: [facility] Address: [address] [place] [address] Performed By: #### 2 4323-8, 31857-7, 277-, 3084-1 ####[facility] LABW[facility] [id number] [place] [address] [place] Magnesium SerPl-mCncon 06-02 Magnesium [Mass/Vol] 2.0 mg/dL Normal 1.7-2.3 [facility] Comment on above: Order Comment: Speci men Type: BLOOD SPECIMENOrdering Facility: [facility] Address: [address] [place], [place] [address] Performed By: #### 2 4323-8, 18691-7, 2777-1, 3084-1 ####[facility] LABIA [id number] [place] [address] [place] Phosphate SerPl-mCncon 06-02 Phosphate [Mass/Vol] 3.8 mg/dL Normal 2.7-4.8 [facility] Comment on above: Order Comment: Speci men Type: BLOOD SPECIMENOrdering Facility: [facility] Address: [address] [place] [address] Performed By: #### 2 4323-8, 29160-3, 2777-1, 3084-1 ####[facility] LABCLIA [id number] [address] [place] Urate SerPl-mCncon 3 Urate [Mass/Vol] 3.1 mg/dL Normal 2.5-6.6 [facility] Comment on above: Order Comment: Speci men Type: BLOOD SPECIMENOrdering Facility: [facility] Address: [address] [place] [address] Performed By: #### 2 4323-8, 77877-6, 2776-1, 3084-1 ####[facility] LABCLIA [id number] [place] [address] [place] ACUTE LEUKEMIA NGS PANEL, ZEENAT NE MARROWon 06-01-2023 ACUTE LEUK NGS PANEL, BONE MARROW Normal [facility] Comment on above: Order Comment: Speci men Type: BONE MARROW SPECIMENOrdering Facility: [facility] Address: [address] [place] [address] Result Comment: Acut e Leukemia NGS Panel, Bone MarrowLaboratory Accession Number: [id number]:Please see linked document and/or separate report for full result whenavailable.As reviewed by Zenia Mae, PhD, [facility] Performed By: #### F 3IM, HDMNGS ####[facility] LIMSCLIA [id number] [address] [place] AML MRD BY FCon 06-01-2023 AML MRD BY FC View results in Scan talia Documents link when available. Normal [facility] Comment on above: Order Comment: Speci men Type: BONE MARROW SPECIMENOrdering Facility: [facility] Address: [address] [place] [address] Performed By: #### A MLMRD ####[facility] MOLECULAR MICROCLIA [id number] [place] [address] BONE MARROW ANALYSISon 06-01 ADDENDUM 1: Normal [facility] Comment on above: Order Comment: Speci men Type: BONE MARROW SPECIMENOrdering Facility: [facility] Address: [address] [place] [address] Result Comment: Markus tional immunohistochemistry is performed [...] 3:24 PM Performed By: #### B MRT ####[facility] LABIA [id number] [address] [place] CASE REPORT Normal [facility] Comment on above: Order Comment: Speci men Type: BONE MARROW SPECIMENOrdering Facility: [facility] Address: [address] [place] [address] Result Comment: Bone Marrow Pathology Report Case: [id number] Provider: Smith Hdez MD Collected: 06/01/2023 09:00 AMOrdering Location: [place] [address] Received: 06/01/2023 09:20 AMPathologist: Janet Saba, DOSpecimens: A) - BONE MARROW ASPIRATE RIGHT POSTERIOR ILIAC CREST B) - BONE MARROW BIOPSY RIGHT POSTERIOR ILIAC CREST C) - BONE MARROW CLOT RIGHT POSTERIOR ILIAC CREST D) - Peripheral blood smear Performed By: #### B MRT ####[facility] LABCLIA [id number] [address] [place] DIAGNOSIS COMMENT Normal [facility] Comment on above: Order Comment: Speci men Type: BONE MARROW SPECIMENOrdering Facility: [facility] Address: [address] [place] [address] Result Comment: The patient is 67 years old female with past medical history of breast cancer status post treatment and recent diagnosis of acute myeloid leukemia with complex cytogenetics. 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, [facility], or [facility]) in a manner consistent with CLIA requirements. One or more of these tests have not been cleared or approved by the FDA. [facility] is regulated under CLIA as qualified to perform high-complexity testing. These tests are used for clinical purposes. They should not be regarded as investigational or for research. Positive and negative controls stain appropriately. Performed By: #### B MRT ####[facility] LABCLIA [id number] [facility] [id number] [place] FINAL DIAGNOSIS Normal [facility] Comment on above: Order Comment: Speci men Type: BONE MARROW SPECIMENOrdering Facility: [facility] Address: [address] [place] [address] Result Comment: A-C: Bone marrow, aspirate smears, touch imprint, clot section and biopsy:- Acute myeloid leukemia.- Hypercellular marrow (50-60%) with trilineage hematopoiesis, granulocytic left shift, 28% blasts and multilineage dysplasia.- Few B-cell rich lymphoid aggregates.- See comment.D: Peripheral blood smear:- Pancytopenia with circulating blasts.HJR/AMENA 06/05/2023 Performed By: #### B MRT ####[facility] LABCLIA [id number] [address] [place] GROSS DESCRIPTION Normal [facility] Comment on above: Order Comment: Speci men Type: BONE MARROW SPECIMENOrdering Facility: [facility] Address: [address] [place] [address] Result Comment: A. B ONE MARROW ASPIRATE [...] Submitted for light microscopy.Gross examination performed at [facility], [address] [place], [place] [address] June 01, 2023 7:34 PM Performed By: #### B MRT ####[facility] LABCLIA [id number] [address] [facility] MICROSCOPIC DESCRIPTION Normal [facility] Comment on above: Order Comment: Speci men Type: BONE MARROW SPECIMENOrdering Facility: [facility] Address: [address], [place] [id number] Result Comment: GENNY PHERAL BLOOD:CBC (06/01/2023 12:35 [...] in number.Immunohistochemical stains were performed at the [facility] with appropriate controls for further characterization of [...] coat stored. Performed By: #### B MRT ####[facility] LABCLIA [id number] [place] [address] [place] BONE MARROW CHROMOSOME ANALo n 06-01-2023 CHROMOSOME BM Normal [facility] Comment on above: Order Comment: Order ing Facility: [facility] Address: [address] [place] [address] Result Comment: Edel knight Accession Number: [id number]: Hortencia Hdezathologist: Beatrice Pathology No: [id number] diagnosis: AMLSpecimen Type: Bone MarrowReceived Date: 06/01/2023Number of cells counted: 20Number of cells analyzed: 20Number of cells karyotyped: 20Banding resolution: 400Banding method: G-bandingDIAGNOSIS: 44,XX,-5,add(7)(q32),-12,-16,+mar[4]/44,idem,nehemiah(1)add(1)(q22)inv(1) (p13q21),add(2)(q37),add(3)(q21),add(4)(q12),nehemiah(6)add(6)(p11.2)del( 6)(q23q25),-add(7)(q32),add(7)(q11.2),-9,nehmeiah(11)t(1;11)(q21;q23),+ma r[16]INTERPRETATION: Abnormal, female karyotypeCOMMENT: Ten metaphase cells [...] reviewed by Jovanny Hooper, PhD, FACMGPerformed by [facility] HospitalPathology and Laboratory Medicine InstituteDivision of Molecular PathologyCytogenetics Lab, [id number] [facility] [place], [place] [address]Fglye: Toll free: Performed By: #### C [facility] ####[facility] HOSPITALSCLI [id number] [address] [address] [place] CBC W Auto Differential pane l (Bld)on 09-29-2023 Anisocytosis Ql (Bld) Present Normal [facility] Comment on above: Order Comment: Speci men Type: BLOOD SPECIMENOrdering Facility: [facility] Address: [address] Performed By: #### 5 7021-8 ####[facility] LABCLIA [id number] [place] [address] [place] Basophils (Bld) [#/Vol] 0.00 10*3/uL Normal <0.11 [facility] Comment on above: Order Comment: Speci men Type: BLOOD SPECIMENOrdering Facility: [facility] Address: [address] [place] [address] Performed By: #### 5 7021-8 ####[facility] LABCLIA [id number] [address] [place] Basophils/100 WBC (Bld) 0.0 % Normal [facility] Comment on above: Order Comment: Speci men Type: BLOOD SPECIMENOrdering Facility: [facility] Address: [address] Performed By: #### 5 7021-8 ####[facility] LABCLIA [id number] [address] [place] BLAST% 7.1 % High <=0.0 [facility] Comment on above: Order Comment: Speci men Type: BLOOD SPECIMENOrdering Facility: [facility] Address: [address] Performed By: #### 5 7021-8 ####[facility] LABCLIA [id number] [place] [address] [place] Differential cell count method Nom (Bld) Manual Normal [facility] Comment on above: Order Comment: Speci men Type: BLOOD SPECIMENOrdering Facility: [facility] Address: [address] Performed By: #### 5 7021-8 ####[facility] LABCLIA [id number] [place] [address] [place] Eosinophils (Bld) [#/Vol] 0.03 10*3/uL Normal <0.46 [facility] Comment on above: Order Comment: Speci men Type: BLOOD SPECIMENOrdering Facility: [facility] Address: [address] [place] [address] Performed By: #### 5 7021-8 ####[facility] LABCLIA [id number] [place] [address] [place] Eosinophils/100 WBC (Bld) 1.8 % Normal [facility] Comment on above: Order Comment: Speci men Type: BLOOD SPECIMENOrdering Facility: [facility] Address: [address] [place] [address] Performed By: #### 5 7021-8 ####[facility] LABCLIA [id number] [place] [address] [place] Erythrocyte distribution width (RBC) [Ratio] 18.3 % High 11.5-15.0 [facility] Comment on above: Order Comment: Speci men Type: BLOOD SPECIMENOrdering Facility: [facility] Address: [address] [place] [address] Performed By: #### 5 7021-8 ####[facility] LABCLIA [id number] [place] [address] [place] Hematocrit (Bld) [Volume fraction] 19.2 % Low 36.0-46.0 [facility] Comment on above: Order Comment: Speci men Type: BLOOD SPECIMENOrdering Facility: [facility] Address: [address] [place], [place] [address] Performed By: #### 5 7021-8 ####[facility] LABCLIA [id number] [place] [address] [place] Hemoglobin (Bld) [Mass/Vol] 6.6 g/dL Low 11.5-15.5 [facility] Comment on above: Order Comment: Speci men Type: BLOOD SPECIMENOrdering Facility: [facility] Address: [address] [place] [address] Performed By: #### 5 7021-8 ####[facility] LABIA [id number] [place] [address] [place] HYPOGRANULATED PMNS Present Normal [facility] Comment on above: Order Comment: Speci men Type: BLOOD SPECIMENOrdering Facility: [facility] Address: [address] Performed By: #### 5 7021-8 ####[facility] LABIA [id number] [place] [address] [place] Lymphocytes (Bld) [#/Vol] 1.33 10*3/uL Normal 1.00-4.00 [facility] Comment on above: Order Comment: Speci men Type: BLOOD SPECIMENOrdering Facility: [facility] Address: [address] Performed By: #### 5 7021-8 ####[facility] LABIA [id number] [address] [place] Lymphocytes/100 WBC (Bld) 76.8 % Normal [facility] Comment on above: Order Comment: Speci men Type: BLOOD SPECIMENOrdering Facility: [facility] Address: [address] [place], [place] [address] Performed By: #### 5 7021-8 ####[facility] LABIA [id number] [place] [address] [place] MCH (RBC) [Entitic mass] 34.7 pg High 26.0-34.0 [facility] Comment on above: Order Comment: Speci men Type: BLOOD SPECIMENOrdering Facility: [facility] Address: [address] Performed By: #### 5 7021-8 ####[facility] LABCLIA [id number] [place] [address] [place] MCHC (RBC) [Mass/Vol] 34.4 g/dL Normal 30.5-36.0 [facility] Comment on above: Order Comment: Speci men Type: BLOOD SPECIMENOrdering Facility: [facility] Address: [address] [place] [address] Performed By: #### 5 7021-8 ####[facility] LABIA [id number] [place] [address] [place] MCV (RBC) [Entitic vol] 101.1 fL High 80.0-100.0 [facility] Comment on above: Order Comment: Speci men Type: BLOOD SPECIMENOrdering Facility: [facility] Address: [address] [place] [address] Performed By: #### 5 7021-8 ####[facility] LABIA [id number] [place] [address] [place] Monocytes (Bld) [#/Vol] 0.00 10*3/uL Normal <0.87 [facility] Comment on above: Order Comment: Speci men Type: BLOOD SPECIMENOrdering Facility: [facility] Address: [address] [place] [address] Performed By: #### 5 7021-8 ####[facility] LABIA [id number] [address] [place] Monocytes/100 WBC (Bld) 0.0 % Normal [facility] Comment on above: Order Comment: Speci men Type: BLOOD SPECIMENOrdering Facility: [facility] Address: [address] [place], [place] [address] Performed By: #### 5 7021-8 ####[facility] LABIA [id number] [place] [address] [place] MYELO% 0.9 % Normal [facility] Comment on above: Order Comment: Speci men Type: BLOOD SPECIMENOrdering Facility: [facility] Address: [address] Performed By: #### 5 7021-8 ####[facility] LABCLIA [id number] [place] [address] [place] Neutrophils (Bld) [#/Vol] 0.23 10*3/uL Low 1.45-7.50 [facility] Comment on above: Order Comment: Speci men Type: BLOOD SPECIMENOrdering Facility: [facility] Address: [address] [place] [address] Performed By: #### 5 7021-8 ####[facility] LABCLIA [id number] [address] [place] Neutrophils/100 WBC (Bld) 13.4 % Normal [facility] Comment on above: Order Comment: Speci men Type: BLOOD SPECIMENOrdering Facility: [facility] Address: [address] Performed By: #### 5 7021-8 ####[facility] LABCLIA [id number] [place] [address] [place] Nucleated RBC (Bld) [#/Vol] 10*3/uL Normal <0.01 [facility] Comment on above: Order Comment: Speci men Type: BLOOD SPECIMENOrdering Facility: [facility] Address: [address] Performed By: #### 5 7021-8 ####[facility] LABCLIA [id number] [place] [address] [place] Nucleated RBC/100 WBC (Bld) [Ratio] 0.0 /100 WBC Normal [facility] Comment on above: Order Comment: Speci men Type: BLOOD SPECIMENOrdering Facility: [facility] Address: [address] Performed By: #### 5 7021-8 ####[facility] LABCLIA [id number] [place] [address] [place] Ovalocytes LM Ql (Bld) Few Normal [facility] Comment on above: Order Comment: Speci men Type: BLOOD SPECIMENOrdering Facility: [facility] Address: [address] [place] [address] Performed By: #### 5 7021-8 ####[facility] LABCLIA [id number] [place] [address] [place] Platelet mean volume (Bld) [Entitic vol] Normal [facility] Comment on above: Order Comment: Speci men Type: BLOOD SPECIMENOrdering Facility: [facility] Address: [address] [place] [address] Result Comment: Unab le to Report. Performed By: #### 5 7021-8 ####[facility] LABIA [id number] [place] [address] [place] Platelets (Bld) [#/Vol] 10 10*3/uL Low 150-400 [facility] Comment on above: Order Comment: Speci men Type: BLOOD SPECIMENOrdering Facility: [facility] Address: [address] [place] [address] Result Comment: Resu lts checked and verified.No clot detected. Performed By: #### 5 7021-8 ####[facility] LABCLIA [id number] [place] [address] [place] Platelets Estimate (Bld) [#/Vol] Decreased Normal [facility] Comment on above: Order Comment: Speci men Type: BLOOD SPECIMENOrdering Facility: [facility] Address: [address] [place] [address] Performed By: #### 5 7021-8 ####[facility] LABCLIA [id number] [place] [address] [place] Polychromasia LM Ql (Bld) Slight Normal [facility] Comment on above: Order Comment: Speci men Type: BLOOD SPECIMENOrdering Facility: [facility] Address: [address] Performed By: #### 5 7021-8 ####[facility] LABCLIA [id number] [place] [address] [place] RBC (Bld) [#/Vol] 1.90 10*6/uL Low 3.90-5.20 [facility] Comment on above: Order Comment: Speci men Type: BLOOD SPECIMENOrdering Facility: [facility] Address: [address] Performed By: #### 5 7021-8 ####[facility] LABCLIA [id number] [place] [address] [place] RBC FRAGMENTS Few Abnormal None Seen [facility] Comment on above: Order Comment: Speci men Type: BLOOD SPECIMENOrdering Facility: [facility] Address: [address] [place], [place] [address] Performed By: #### 5 7021-8 ####[facility] LABCLIA [id number] [address] STATES [facility] RED CELL MORPH Reviewed: see result s of individual morphologies Normal [facility] Comment on above: Order Comment: Speci men Type: BLOOD SPECIMENOrdering Facility: [facility] Address: [address] [place] [address] Performed By: #### 5 7021-8 ####[facility] LABCLIA [id number] [place] [address] [place] WBC (Bld) [#/Vol] 1.73 10*3/uL Low 3.70-11.00 [facility] Comment on above: Order Comment: Speci men Type: BLOOD SPECIMENOrdering Facility: [facility] Address: [address] Performed By: #### 5 7021-8 ####[facility] LABCLIA [id number] [place] [address] [place] WBC Left Shift Ql (Bld) Present Normal [facility] Comment on above: Order Comment: Speci men Type: BLOOD SPECIMENOrdering Facility: [facility] Address: [address] [place] [address] Performed By: #### 5 7021-8 ####[facility] LABIA [id number] [place] [address] [place] CONSULT PROGon 06-01-2023 CONSULT PROG Normal [facility] CT BIOPSY BONE MARROW (HEMO) on 06-01-2023 CT BIOPSY BONE MARROW (HEMO) Normal [facility] Comprehensive metabolic 2000 panelon 06-01-2023 Albumin [Mass/Vol] 3.4 g/dL Low 3.9-4.9 [facility] Comment on above: Order Comment: Speci men Type: BLOOD SPECIMENOrdering Facility: [facility] Address: [address] [place] [address] Performed By: #### 3 084-1, 75837-8, 18015-8, 2776-1 ####[facility] LABIA [id number] [place] [address] [place] ALP [Catalytic activity/Vol] 53 U/L Normal 34-123 [facility] Comment on above: Order Comment: Speci men Type: BLOOD SPECIMENOrdering Facility: [facility] Address: [address] Performed By: #### 3 084-1, 75565-6, 01114-9, 2776-1 ####[facility] LABIA [id number] [address] [place] ALT [Catalytic activity/Vol] 14 U/L Normal 7-38 [facility] Comment on above: Order Comment: Speci men Type: BLOOD SPECIMENOrdering Facility: [facility] Address: [address] [place] [address] Performed By: #### 3 084-1, 68059-9, 23240-0, 2776-09 ####[facility] LABCLIA [id number] [place] [address] [place] Anion gap [Moles/Vol] 11 mmol/L Normal 9-18 [facility] Comment on above: Order Comment: Speci men Type: BLOOD SPECIMENOrdering Facility: [facility] Address: [address] [place] [address] Performed By: #### 3 084-1, 41583-9, 59398-1, 2776-09 ####[facility] LABCLIA [id number] [place] [address] [place] AST [Catalytic activity/Vol] 12 U/L Low 13-35 [facility] Comment on above: Order Comment: Speci men Type: BLOOD SPECIMENOrdering Facility: [facility] Address: [address] [place] [address] Performed By: #### 3 084-1, 52237-9, 88849-3, 2776-09 ####[facility] LABCLIA [id number] [place] [address] [place] Bilirubin [Mass/Vol] 0.2 mg/dL Normal 0.2-1.3 [facility] Comment on above: Order Comment: Speci men Type: BLOOD SPECIMENOrdering Facility: [facility] Address: [address] [place], [place] [address] Performed By: #### 3 084-1, 23406-8, 26053-1, 2776-09 ####[facility] LABCLIA [id number] [place] [address] [place] Calcium [Mass/Vol] 8.7 mg/dL Normal 8.5-10.2 [facility] Comment on above: Order Comment: Speci men Type: BLOOD SPECIMENOrdering Facility: [facility] Address: [address] [place] [address] Performed By: #### 3 084-1, 98024-9, , 2776-09 ####[facility] LABCLIA [id number] [place] [address] [place] Chloride [Moles/Vol] 109 mmol/L High 97-105 [facility] Comment on above: Order Comment: Speci men Type: BLOOD SPECIMENOrdering Facility: [facility] Address: [address] [place] [address] Performed By: #### 3 084-1, 16698-3, , 2776-09 ####[facility] LABCLIA [id number] [place] [address] [place] CO2 [Moles/Vol] 21 mmol/L Low 22-30 [facility] Comment on above: Order Comment: Speci men Type: BLOOD SPECIMENOrdering Facility: [facility] Address: [address] [place] [address] Performed By: #### 3 084-1, 38048-2, , 2776-09 ####[facility] LABCLIA [id number] [place] [address] [place] Creatinine [Mass/Vol] 1.03 mg/dL High 0.58-0.96 [facility] Comment on above: Order Comment: Speci men Type: BLOOD SPECIMENOrdering Facility: [facility] Address: [address] [place], [place] [address] Performed By: #### 3 084-1, 85048-0, 83385-3, 2776-09 ####[facility] LABCLIA [id number] [place] [address] [place] Creatinine and Glomerular filtration rate.predicted panel (S/P/Bld) 59 mL/min/1.73m??? Low >=60 [facility] Comment on above: Order Comment: Speci men Type: BLOOD SPECIMENOrdering Facility: [facility] Address: [address] [id number] Result Comment: Berenice mated Glomerular Filtration Rate [...] actual GFR. Performed By: #### 3 084-1, 92021-8, , 2776-09 ####[facility] LABIA [id number] [place] [address] [place] Glucose [Mass/Vol] 106 mg/dL High 74-99 [facility] Comment on above: Order Comment: Elvia escobar Type: BLOOD SPECIMENOrdering Facility: [facility] Address: [address] [place] [address] Result Comment: The [place] [employer] (ADA) provides guidance for cutoff [...] Standards of Medical Care in Diabetes 2016, [place] [employer]. Diabetes Care. 2016.39(Suppl 1). Performed By: #### 3 084-1, 56288-9, , 2776-09 ####[facility] LABIA [id number] [place] [id number] [place] Potassium [Moles/Vol] 3.7 mmol/L Normal 3.7-5.1 [facility] Comment on above: Order Comment: Elvia escobar Type: BLOOD SPECIMENOrdering Facility: [facility] Address: [address] [place] [address] Performed By: #### 3 084-1, 67546-6, , 2776-09 ####[facility] LABIA [id number] [place] [address] [place] Protein [Mass/Vol] 5.4 g/dL Low 6.3-8.0 [facility] Comment on above: Order Comment: Speci men Type: BLOOD SPECIMENOrdering Facility: [facility] Address: [address] [place] [address] Performed By: #### 3 084-1, 72152-0, , 2776-09 ####[facility] LABIA [id number] [place] [address] [place] Sodium [Moles/Vol] 141 mmol/L Normal 136-144 [facility] Comment on above: Order Comment: Speci men Type: BLOOD SPECIMENOrdering Facility: [facility] Address: [address] [place] [address] Performed By: #### 3 084-1, 78273-5, , 2776-09 ####[facility] LABIA [id number] [place] [address] [place] Urea nitrogen [Mass/Vol] 16 mg/dL Normal 7-21 [facility] Comment on above: Order Comment: Speci men Type: BLOOD SPECIMENOrdering Facility: [facility] Address: [address] [place] [address] Performed By: #### 3 084-1, 58538-0, , 2776-09 ####[facility] LABIA [id number] [place] [address] [place] DNA EXTRACTION BONE MARROW ( BUFFY COAT)on 06-01-2023 DNA EXTRACTION BONE MARROW (BUFFY COAT) Normal [facility] Comment on above: Order Comment: Speci men Type: BONE MARROW SPECIMENOrdering Facility: [facility] Address: [address] [id number] Result Comment: This specimen was received and successfully processed for future DNA purification should molecular testing be needed. Specimens will be available for 3 years from date of collection.To order testing on this specimen for [facility] patients, please place an [facility] order for DNA and RNA Clinical Testing ([id number]). To order testing for patients outside of the [facility] system, please request DNA and RNA for Clinical Testing, order code [id number].If additional paperwork is required for testing, please send completed forms via secure email to . Performed By: #### N UCBUF ####[facility] LIMSCLIA [id number] [address] FLOW CYTOMETRY FOR LEUKEMIA/ LYMPHOMA (FCLL) PERFORMABLEon 06-01-2023 FLOW CYTOMETRY ORDER STATUS See Results in chart under F case ID Normal [facility] Comment on above: Order Comment: Speci luz Type: BONE MARROW SPECIMENOrdering Facility: [facility] Address: [address] [place], [place] [address] Result Comment: Vero ected result: Previously reported as A bone marrow sample was received for potential flow cytometry studies. Following morphologic review, flow cytometric studies will be ordered by the hematopathologist if testing is indicated. on 06/01/2023 at9:31 AM EDT. Performed By: #### F CLLP, FCLLRFLX ####[facility] LABCLIA [id number] [address] STATES OF [facility] FLOW CYTOMETRY FOR LEUKEMIA/ LYMPHOMA (FCLL) REFLEXon 06-01-2023 DIAGNOSIS COMMENT Normal [facility] Comment on above: Order Comment: Speci luz Type: BONE MARROW SPECIMENOrdering Facility: [facility] Address: [address] [place], [place] [address] Performed By: #### F CLLP, FCLLRFLX ####[facility] LABCLIA [id number] [address] STATES [facility] FINAL PERFORMING LAB Normal [facility] Comment on above: Order Comment: Speci men Type: BONE MARROW SPECIMENOrdering Facility: [facility] Address: [address] [address] Result Comment: Diag nostic interpretation performed at [facility], [address] [address] CLIA# [id number] Director: Boris Wood M.D. Performed By: #### F CLLP, FCLLRFLX ####[facility] LABCLIA [id number] [address] Order Comment: Elvia escobar Type: BONE MARROW SPECIMENOrdering Facility: [facility] Address: [address] [place] [address] Performed By: #### B MRT ####[facility] LABCLIA [id number] [address] FLOW CYTOMETRY RESULTS Normal [facility] Comment on above: Order Comment: Elvia men Type: BONE MARROW SPECIMENOrdering Facility: [facility] Address: [address] [address] Result Comment: Spec imen type: Bone marrow aspirateViability: 99%Morphology comments: See associated bone marrow biopsy report.Results:Marker Normal Cell Result (Lymph) Type CD2 T-cell Normal patternCD3 T-cell Normal patternCD4 T-cell subset Normal patternCD5 T-cell Normal patternCD7 T-cell Normal patternCD8 T-cell subset Normal nhnjqkoBI29 B-cell Normal ofsocmuOT44 Myeloid Normal ojsgeneUI79/56 NK-cell Normal mgasiseCI20 B-cell Normal otvieypIV56 B-cell Normal ejsfqsiPM04 B-cell Normal wumlouvBY14 Hough-leukocyte Normal qgeflgrGG914 B-cell Normal sbwxssfJO891 B-cell Normal patternKappa/Lambda B-cell subset PolytypicTRBC1 T-cell Normal, polytypicFlow cytometric analysis of the bone marrow aspirate reveals that 13% of total events have the CD45 and light scatter properties of lymphocytes. The lymphocytes are composed of T-cells (91%, CD4:CD8 ratio = 3.2), NK cells (1%), and polytypic B-cells (8%). Performed By: #### F CLLP, FCLLRFLX ####[facility] LABCLIA [id number] [address] STATES [place] GROSS DESCRIPTION A. Bone Marrow Normal [facility] Comment on above: Order Comment: Speci luz Type: BONE MARROW SPECIMENOrdering Facility: [facility] Address: [address] [place] [address] Result Comment: Rece ived 3 ml BM in heparin. Performed By: #### F MARY ANNE, ALEJANDRORFLX ####[facility] LABCLIA [id number] [address] STATES [place] INTERPRETATION Normal [facility] Comment on above: Order Comment: Elvia escobar Type: BONE MARROW SPECIMENOrdering Facility: [facility] Address: [address] [place] [address] Result Comment: The lymphoproliferative disorder panel is performed on this bone marrow by flow cytometry. There is no immunophenotypic evidence of involvement by a lymphoproliferative disorder. Correlation with the clinical and bone marrow histopathologic findings is suggested. Performed By: #### F ALEJANDRO NORTHRFCelestineX ####[facility] LABCLIA [id number] [address] STATES OF [place] FLT3 ITD HN BONE MARROWon CLARITY SIGNOUT PATHOLOGIST [id number] Normal [facility] Comment on above: Order Comment: Rochellei luz Type: BONE MARROW SPECIMENOrdering Facility: [facility] Address: [address] [place] [address] Performed By: #### F 3IKim, LEFTYNGS ####[facility] LIMSCLIA [id number] [address] [place] [address] [place] FLT3 ITD HN PANEL BONE MARROW Normal [facility] Comment on above: Order Comment: Speci men Type: BONE MARROW SPECIMENOrdering Facility: [facility] Address: [address] [id number] Result Comment: FLT3 Internal Tandem Duplication (ITD) Mutation TestingLaboratory Accession Number: [id number] Internal Tandem Duplication (ITD) mutation: Not DetectedComment:FLT3/ITD [...] from the specimen provided. Regions of the KLX4ifmwxxmc kinase receptor gene are subjected to the [...] in acute myeloid leukemia. N Engl J Med.2011Nov 22;366 (12):2546-21.3) Sandra H, Dee E, Sharon Vaughan, et al. Diagnosis and mangement ofAML in adults: 2017 ELN recommendations from an international expertpanel. Blood [phone] (2017).Disclaimer:This test was developed and its performance characteristics determinedby [facility] Pathology and LaboratoryMedicine [place] ([facility]). It has not been cleared or approved bythe FDA. [facility] is regulated under CLIA as certified to perform high-complexity testing. This test is used for clinical purposes. It shouldnot be regarded as investigational or for research.Testing [place] [address]. [place] Number: [id number] reviewed by Leslye Ha MD, PhD Performed By: #### F 3I, HDMNGS ####[facility] LIMSCLIA [id number] [address] STATES OF [place] HISTORY PHYSICALon HISTORY PHYSICAL Normal [facility] Magnesium SerPl[facility] Magnesium [Mass/Vol] 2.1 mg/dL Normal 1.7-2.3 [facility] Comment on above: Order Comment: Speci men Type: BLOOD SPECIMENOrdering Facility: [facility] Address: [address] [place] [address] Performed By: #### 3 084-1, 24795-5, 53079-6, 2777-1 ####[facility] LABCLIA [id number] [address] OF [place] PT EDon 06-01-2023 PT ED Normal [facility] Phosphate SerPl-mCncon 06-01 Phosphate [Mass/Vol] 4.4 mg/dL Normal 2.7-4.8 [facility] Comment on above: Order Comment: Speci men Type: BLOOD SPECIMENOrdering Facility: [facility] Address: [address] [place], [place] [address] Performed By: #### 3 084-1, 78532-6, 43327-1, 2776- ####[facility] LABCLIA [id number] [place] [address] [place] Urate SerPl-mCncon 3 Urate [Mass/Vol] 3.2 mg/dL Normal 2.5-6.6 [facility] Comment on above: Order Comment: Speci men Type: BLOOD SPECIMENOrdering Facility: [facility] Address: [address] [address] Performed By: #### 3 084-1, 06259-1, , 2776-09 ####[facility] LABCLIA [id number] [place] [address] [place] ALLIED HEALTHon 05-31-2023 ALLIED HEALTH Normal [facility] CBC W Auto Differential pane l (Bld)on 05-31-2023 Anisocytosis Ql (Bld) Present Normal [facility] Comment on above: Order Comment: Speci men Type: BLOOD SPECIMENOrdering Facility: [facility] Address: [address] [address] Performed By: #### 5 7021-8 ####[facility] LABCLIA [id number] [place] [address] [place] Basophils (Bld) [#/Vol] 0.00 10*3/uL Normal <0.11 [facility] Comment on above: Order Comment: Speci men Type: BLOOD SPECIMENOrdering Facility: [facility] Address: [address] [address] Performed By: #### 5 7021-8 ####[facility] LABCLIA [id number] [place] [address] [place] Basophils/100 WBC (Bld) 0.0 % Normal [facility] Comment on above: Order Comment: Speci men Type: BLOOD SPECIMENOrdering Facility: [facility] Address: [address] Performed By: #### 5 7021-8 ####[facility] LABCLIA [id number] [place] [address] [place] BLAST% 1.8 % High <=0.0 [facility] Comment on above: Order Comment: Speci men Type: BLOOD SPECIMENOrdering Facility: [facility] Address: [address] [address] Performed By: #### 5 7021-8 ####[facility] LABCLIA [id number] [place] [address] [place] Differential cell count method Nom (Bld) Manual Normal [facility] Comment on above: Order Comment: Speci men Type: BLOOD SPECIMENOrdering Facility: [facility] Address: [address] [place], [place] [address] Performed By: #### 5 7021-8 ####[facility] LABCLIA [id number] [place] [address] [place] Eosinophils (Bld) [#/Vol] 0.06 10*3/uL Normal <0.46 [facility] Comment on above: Order Comment: Speci men Type: BLOOD SPECIMENOrdering Facility: [facility] Address: [address] Performed By: #### 5 7021-8 ####[facility] LABCLIA [id number] [address] [place] Eosinophils/100 WBC (Bld) 3.5 % Normal [facility] Comment on above: Order Comment: Speci men Type: BLOOD SPECIMENOrdering Facility: [facility] Address: [address] Performed By: #### 5 7021-8 ####[facility] LABCLIA [id number] [address] OF [place] Erythrocyte distribution width (RBC) [Ratio] 17.7 % High 11.5-15.0 [facility] Comment on above: Order Comment: Speci men Type: BLOOD SPECIMENOrdering Facility: [facility] Address: [address] [place] [address] Performed By: #### 5 7021-8 ####[facility] LABCLIA [id number] [place] [address] [place] Hematocrit (Bld) [Volume fraction] 21.1 % Low 36.0-46.0 [facility] Comment on above: Order Comment: Speci men Type: BLOOD SPECIMENOrdering Facility: [facility] Address: [address] [place] [address] Performed By: #### 5 7021-8 ####[facility] LABCLIA [id number] [place] [address] [place] Hemoglobin (Bld) [Mass/Vol] 7.2 g/dL Low 11.5-15.5 [facility] Comment on above: Order Comment: Speci men Type: BLOOD SPECIMENOrdering Facility: [facility] Address: [address] [place] [address] Performed By: #### 5 7021-8 ####[facility] LABIA [id number] [place] [address] [place] HYPOGRANULATED PMNS Present Normal [facility] Comment on above: Order Comment: Speci men Type: BLOOD SPECIMENOrdering Facility: [facility] Address: [address] [place] [address] Performed By: #### 5 7021-8 ####[facility] LABCLIA [id number] [place] [address] [place] Lymphocytes (Bld) [#/Vol] 1.43 10*3/uL Normal 1.00-4.00 [facility] Comment on above: Order Comment: Speci men Type: BLOOD SPECIMENOrdering Facility: [facility] Address: [address] Performed By: #### 5 7021-8 ####[facility] LABCLIA [id number] [address] Lymphocytes/100 WBC (Bld) 85.9 % Normal [facility] Comment on above: Order Comment: Speci men Type: BLOOD SPECIMENOrdering Facility: [facility] Address: [address] Performed By: #### 5 7021-8 ####[facility] LABIA [id number] [address] [place] MCH (RBC) [Entitic mass] 34.0 pg Normal 26.0-34.0 [facility] Comment on above: Order Comment: Speci men Type: BLOOD SPECIMENOrdering Facility: [facility] Address: [address] Performed By: #### 5 7021-8 ####[facility] LABIA [id number] [address] STATES OF [facility] MCHC (RBC) [Mass/Vol] 34.1 g/dL Normal 30.5-36.0 [facility] Comment on above: Order Comment: Speci men Type: BLOOD SPECIMENOrdering Facility: [facility] Address: [address] [place] [address] Performed By: #### 5 7021-8 ####[facility] LABCLIA [id number] [address] [place] MCV (RBC) [Entitic vol] 99.5 fL Normal 80.0-100.0 [facility] Comment on above: Order Comment: Speci men Type: BLOOD SPECIMENOrdering Facility: [facility] Address: [address] Performed By: #### 5 7021-8 ####[facility] LABCLIA [id number] [place] [address] [place] Monocytes (Bld) [#/Vol] 0.00 10*3/uL Normal <0.87 [facility] Comment on above: Order Comment: Speci men Type: BLOOD SPECIMENOrdering Facility: [facility] Address: [address] [place] [address] Performed By: #### 5 7021-8 ####[facility] LABCLIA [id number] [place] [address] [place] Monocytes/100 WBC (Bld) 0.0 % Normal [facility] Comment on above: Order Comment: Speci men Type: BLOOD SPECIMENOrdering Facility: [facility] Address: [address] [place] [address] Performed By: #### 5 7021-8 ####[facility] LABCLIA [id number] [place] [address] [place] Neutrophils (Bld) [#/Vol] 0.15 10*3/uL Low 1.45-7.50 [facility] Comment on above: Order Comment: Speci men Type: BLOOD SPECIMENOrdering Facility: [facility] Address: [address] [place], [place] [address] Performed By: #### 5 7021-8 ####[facility] LABCLIA [id number] [place] [address] [place] Neutrophils/100 WBC (Bld) 8.8 % Normal [facility] Comment on above: Order Comment: Speci men Type: BLOOD SPECIMENOrdering Facility: [facility] Address: [address] [place], [place] [address] Performed By: #### 5 7021-8 ####[facility] LABCLIA [id number] [place] [address] [place] Nucleated RBC (Bld) [#/Vol] 0.01 10*3/uL High <0.01 [facility] Comment on above: Order Comment: Speci men Type: BLOOD SPECIMENOrdering Facility: [facility] Address: [address] [place] [address] Performed By: #### 5 7021-8 ####[facility] LABCLIA [id number] [place] [address] [place] Nucleated RBC/100 WBC (Bld) [Ratio] 0.9 /100 WBC Normal [facility] Comment on above: Order Comment: Speci men Type: BLOOD SPECIMENOrdering Facility: [facility] Address: [address] [place] [address] Performed By: #### 5 7021-8 ####[facility] LABCLIA [id number] [place] [address] [place] Ovalocytes LM Ql (Bld) Few Normal [facility] Comment on above: Order Comment: Speci men Type: BLOOD SPECIMENOrdering Facility: [facility] Address: [address] [place] [address] Performed By: #### 5 7021-8 ####[facility] LABIA [id number] [place] [address] [place] Platelet mean volume (Bld) [Entitic vol] Normal [facility] Comment on above: Order Comment: Speci men Type: BLOOD SPECIMENOrdering Facility: [facility] Address: [address] [place] [address] Result Comment: Unab le to Report. Performed By: #### 5 7021-8 ####[facility] LABCLIA [id number] [place] [address] [place] Platelets (Bld) [#/Vol] 13 10*3/uL Low 150-400 [facility] Comment on above: Order Comment: Speci men Type: BLOOD SPECIMENOrdering Facility: [facility] Address: [address] [place] [address] Result Comment: No c lot detected.Results checked and verified. Performed By: #### 5 7021-8 ####[facility] LABCLIA [id number] [place] [address] [place] Platelets Estimate (Bld) [#/Vol] Decreased Normal [facility] Comment on above: Order Comment: Speci men Type: BLOOD SPECIMENOrdering Facility: [facility] Address: [address] [place] [address] Performed By: #### 5 7021-8 ####[facility] LABCLIA [id number] [place] [address] [place] Polychromasia LM Ql (Bld) Slight Normal [facility] Comment on above: Order Comment: Speci men Type: BLOOD SPECIMENOrdering Facility: [facility] Address: [address] [place] [address] Performed By: #### 5 7021-8 ####[facility] LABCLIA [id number] [place] [address] [place] RBC (Bld) [#/Vol] 2.12 10*6/uL Low 3.90-5.20 [facility] Comment on above: Order Comment: Speci men Type: BLOOD SPECIMENOrdering Facility: [facility] Address: [address] [place] [address] Performed By: #### 5 7021-8 ####[facility] LABCLIA [id number] [place] [address] [place] RBC FRAGMENTS Few Abnormal None Seen [facility] Comment on above: Order Comment: Speci men Type: BLOOD SPECIMENOrdering Facility: [facility] Address: [address] [place], [place] [address] Performed By: #### 5 7021-8 ####[facility] LABCLIA [id number] [place] [address] [place] RED CELL MORPH Reviewed: see result s of individual morphologies Normal [facility] Comment on above: Order Comment: Speci men Type: BLOOD SPECIMENOrdering Facility: [facility] Address: [address] [place] [address] Performed By: #### 5 7021-8 ####[facility] LABCLIA [id number] [place] [address] [place] WBC (Bld) [#/Vol] 1.66 10*3/uL Low 3.70-11.00 [facility] Comment on above: Order Comment: Speci men Type: BLOOD SPECIMENOrdering Facility: [facility] Address: [address] [place], [place] [address] Result Comment: No c lot detected. Performed By: #### 5 7021-8 ####[facility] LABIA [id number] [address] [place] CNPNon 05-31-2023 CNPN Normal [facility] CONSULT PROGon 05-31-2023 CONSULT PROG Normal [facility] Comprehensive metabolic 2000 panelon 05-31-2023 Albumin [Mass/Vol] 3.5 g/dL Low 3.9-4.9 [facility] Comment on above: Order Comment: Speci men Type: BLOOD SPECIMENOrdering Facility: [facility] Address: [address] [place] [address] Performed By: #### 2 4323-8, 49252-3, 2777-1, 3084-1 ####[facility] LABIA [id number] [place] [address] [place] ALP [Catalytic activity/Vol] 53 U/L Normal 34-123 [facility] Comment on above: Order Comment: Speci men Type: BLOOD SPECIMENOrdering Facility: [facility] Address: [address] [place] [address] Performed By: #### 2 4323-8, 95516-9, 2777-1, 3084-1 ####[facility] LABCLIA [id number] [id number] [address] [place] ALT [Catalytic activity/Vol] 17 U/L Normal 7-38 [facility] Comment on above: Order Comment: Speci men Type: BLOOD SPECIMENOrdering Facility: [facility] Address: [address] [place] [address] Performed By: #### 2 4323-8, 46982-3, 7-1, 3084-1 ####[facility] LABCLIA [id number] [place] [address] [place] Anion gap [Moles/Vol] 10 mmol/L Normal 9-18 [facility] Comment on above: Order Comment: Speci men Type: BLOOD SPECIMENOrdering Facility: [facility] Address: [address] [place] [address] Performed By: #### 2 4323-8, 54942-6, 2776-1, 3084-1 ####[facility] LABIA [id number] [address] [place] AST [Catalytic activity/Vol] 16 U/L Normal 13-35 [facility] Comment on above: Order Comment: Speci men Type: BLOOD SPECIMENOrdering Facility: [facility] Address: [address] [place] [address] Performed By: #### 2 4323-8, 70196-1, 2776-1, 3084-1 ####[facility] LABIA [id number] [place] [address] [place] Bilirubin [Mass/Vol] 0.3 mg/dL Normal 0.2-1.3 [facility] Comment on above: Order Comment: Speci men Type: BLOOD SPECIMENOrdering Facility: [facility] Address: [address] [place] [address] Performed By: #### 2 4323-8, 17001-5, 7-1, 3084-1 ####[facility] LABCLIA [id number] [place] [address] [place] Calcium [Mass/Vol] 9.2 mg/dL Normal 8.5-10.2 [facility] Comment on above: Order Comment: Speci men Type: BLOOD SPECIMENOrdering Facility: [facility] Address: [address] [place] [address] Performed By: #### 2 4323-8, 11172-9, 2776-, 3084-1 ####[facility] LABCLIA [id number] [place] [address] [place] Chloride [Moles/Vol] 108 mmol/L High 97-105 [facility] Comment on above: Order Comment: Speci men Type: BLOOD SPECIMENOrdering Facility: [facility] Address: [address] [place] [address] Performed By: #### 2 4323-8, 05376-8, 2776-, 308-1 ####[facility] LABIA [id number] [place] [address] [place] CO2 [Moles/Vol] 23 mmol/L Normal 22-30 [facility] Comment on above: Order Comment: Speci men Type: BLOOD SPECIMENOrdering Facility: [facility] Address: [address] [place] [address] Performed By: #### 2 4323-8, 35561-5, 2776-09, 3084-1 ####[facility] LABIA [id number] [place] [address] [place] Creatinine [Mass/Vol] 0.96 mg/dL Normal 0.58-0.96 [facility] Comment on above: Order Comment: Speci men Type: BLOOD SPECIMENOrdering Facility: [facility] Address: [address] [place] [address] Performed By: #### 2 4323-8, 03531-9, 2776-1, 3084-1 ####[facility] LABCLIA [id number] [address] [id number] [address] [place] Creatinine and Glomerular filtration rate.predicted panel (S/P/Bld) 64 mL/min/1.73m??? Normal >=60 [facility] Comment on above: Order Comment: Elvia escobar Type: BLOOD SPECIMENOrdering Facility: [facility] Address: [address] [place], [place] [address] Result Comment: Berenice mated Glomerular Filtration Rate [...] actual GFR. Performed By: #### 2 4323-8, 81260-1, 2776-, 3083- ####[facility] LABCLIA [id number] [place] [address] [place] Glucose [Mass/Vol] 106 mg/dL High 74-99 [facility] Comment on above: Order Comment: Elvia escobar Type: BLOOD SPECIMENOrdering Facility: [facility] Address: [address] [place] [address] Result Comment: The [place] [employer] (ADA) provides guidance for cutoff [...] Standards of Medical Care in Diabetes 2016, [place] [employer]. Diabetes Care. 2016.39(Suppl 1). Performed By: #### 2 4323-8, 34705-1, 7-, 3083-1 ####[facility] LABCLIA [id number] [place] [id number] [place] Potassium [Moles/Vol] 4.0 mmol/L Normal 3.7-5.1 [facility] Comment on above: Order Comment: Speci men Type: BLOOD SPECIMENOrdering Facility: [facility] Address: [address] [place] [address] Performed By: #### 2 4323-8, 36345-7, 7-1, 3084-1 ####[facility] LABCLIA [id number] [place] [address] [place] Protein [Mass/Vol] 5.7 g/dL Low 6.3-8.0 [facility] Comment on above: Order Comment: Speci men Type: BLOOD SPECIMENOrdering Facility: [facility] Address: [address] [place] [address] Performed By: #### 2 4323-8, 99832-5, 2776-, 308-1 ####[facility] LABIA [id number] [place] [address] [place] Sodium [Moles/Vol] 141 mmol/L Normal 136-144 [facility] Comment on above: Order Comment: Speci men Type: BLOOD SPECIMENOrdering Facility: [facility] Address: [address] [place] [address] Performed By: #### 2 4323-8, 29435-3, 2776-1, 308-1 ####[facility] LABCLIA [id number] [place] [address] [place] Urea nitrogen [Mass/Vol] 13 mg/dL Normal 7-21 [facility] Comment on above: Order Comment: Speci men Type: BLOOD SPECIMENOrdering Facility: [facility] Address: [address] [place] [address] Performed By: #### 2 4323-8, 88071-4, 7-1, 3084-1 ####[facility] LABCLIA [id number] [address] [id number] Magnesium SerPl-mCncon 05-31 Magnesium [Mass/Vol] 2.1 mg/dL Normal 1.7-2.3 [facility] Comment on above: Order Comment: Elvia escobar Type: BLOOD SPECIMENOrdering Facility: [facility] Address: [address] [place] [phone] Performed By: #### 2 4323-8, 16872-9, 2777-1, 3084-1 ####[facility] LABCLIA [id number] [address] [facility] PT EDon 05-31-2023 PT ED Normal [facility] PT panel Coag (PPP)on 2022 INR Coag (PPP) [Relative time] 1.1 {INR} Normal 0.9-1.3 [facility] Comment on above: Order Comment: Specmaria eugenia escobar Type: BLOOD SPECIMENOrdering Facility: [facility] Address: [address] [place] [address] Result Comment: Rajwinder min K Antagonist (VKA) Therapeutic Range: INR 2 to 3 (Target INR of 2.5)Note: For patients treated with VKA drugs, such as warfarin, the [employer] 2012 Guideline recommends [...] of 3).Beltran GH, et al. Chest 2012, 141:7S-47SMargo RA, et al. [employer] 2017, 70: 252-289 Performed By: #### 3 4528-0 ####[facility] LABCLIA [id number] [address] [place] PT Coag (PPP) [Time] 11.3 s Normal 9.7-13.0 [facility] Comment on above: Order Comment: Speci men Type: BLOOD SPECIMENOrdering Facility: [facility] Address: [address] [place] [address] Performed By: #### 3 4528-0 ####[facility] LABCLIA [id number] [place] [address] [place] Phosphate SerPl-mCncon 05-31 Phosphate [Mass/Vol] 4.0 mg/dL Normal 2.7-4.8 [facility] Comment on above: Order Comment: Speci men Type: BLOOD SPECIMENOrdering Facility: [facility] Address: [address] [place] [address] Performed By: #### 2 4323-8, 49049-4, 2777-1, 3084-1 ####[facility] LABCLIA [id number] [place] [address] [place] SOCIAL WORKon 05-31-2023 SOCIAL WORK Normal [facility] TYPE + SCREENon 05-31-2023 ABO O Normal [facility] Comment on above: Order Comment: Speci men Type: BLOOD SPECIMENOrdering Facility: [facility] Address: [address] [place] [address] Performed By: #### T SCR ####[facility] BLOOD BANKCLIA [id number] [place] [address] [place] HISTORICAL AB SCR STATUS Negative Normal [facility] Comment on above: Order Comment: Speci men Type: BLOOD SPECIMENOrdering Facility: [facility] Address: [address] [place] [address] Performed By: #### T SCR ####[facility] BLOOD BANKCLIA [id number] [place] [address] [place] Rh Nom (Bld) Positive Normal [facility] Comment on above: Order Comment: Speci men Type: BLOOD SPECIMENOrdering Facility: [facility] Address: [address] Performed By: #### T SCR ####[facility] BLOOD BANKCLIA [id number] [address] TYPE AND SCREEN EXPIRATION 06/03/2023 23:59 Normal [facility] Comment on above: Order Comment: Speci men Type: BLOOD SPECIMENOrdering Facility: [facility] Address: [address] [place] [address] Performed By: #### T SCR ####[facility] BLOOD BANKIA [id number] [address] Urate SerPl-ncon Urate [Mass/Vol] 2.4 mg/dL Low 2.5-6.6 [facility] Comment on above: Order Comment: Speci men Type: BLOOD SPECIMENOrdering Facility: [facility] Address: [address] [place] [address] Performed By: #### 2 4323-8, 08716-7, 2777-1, 3084-1 ####[facility] LABCLIA [id number] [address] Vancomycin [place] SerPl-mCncon 05-31-2023 Vancomycin random [Mass/Vol] 19.2 ug/mL Normal 10.0-20.0 [facility] Comment on above: Order Comment: Speci men Type: BLOOD SPECIMENOrdering Facility: [facility] Address: [address] [place] [address] Result Comment: Refe rence ranges and high/low indicator flags are provided as general guidelines only. The treating physician must determine appropriate target levels/dosing based on the specific clinical situation. Performed By: #### 4 091-5 ####[facility] LABCLIA [id number] [address] [place] XR CHEST 1V PORT POST PICC - NBon 05-31-2023 XR CHEST 1V PORT POST PICC -NB Normal [facility] CBC W Auto Differential pane l (Bld)on 05-30-2023 Anisocytosis Ql (Bld) Present Normal [facility] Comment on above: Order Comment: Speci men Type: BLOOD SPECIMENOrdering Facility: [facility] Address: [address] [place] [address] Performed By: #### 5 7021-8 ####[facility] LABCLIA [id number] [place] [address] [place] Basophils (Bld) [#/Vol] 0.00 10*3/uL Normal <0.11 [facility] Comment on above: Order Comment: Speci men Type: BLOOD SPECIMENOrdering Facility: [facility] Address: [address] [place] [address] Performed By: #### 5 7021-8 ####[facility] LABCLIA [id number] [place] [address] [place] Basophils/100 WBC (Bld) 0.0 % Normal [facility] Comment on above: Order Comment: Speci men Type: BLOOD SPECIMENOrdering Facility: [facility] Address: [address] [place] [address] Performed By: #### 5 7021-8 ####[facility] LABCLIA [id number] [place] [address] [place] BLAST% 2.3 % High <=0.0 [facility] Comment on above: Order Comment: Speci men Type: BLOOD SPECIMENOrdering Facility: [facility] Address: [address] [place] [address] Performed By: #### 5 7021-8 ####[facility] LABCLIA [id number] [place] [address] [place] Differential cell count method Nom (Bld) Manual Normal [facility] Comment on above: Order Comment: Speci men Type: BLOOD SPECIMENOrdering Facility: [facility] Address: [address] Performed By: #### 5 7021-8 ####[facility] LABCLIA [id number] [place] [address] [place] [facility] [place] Eosinophils (Bld) [#/Vol] 0.01 10*3/uL Normal <0.46 [facility] Comment on above: Order Comment: Speci men Type: BLOOD SPECIMENOrdering Facility: [facility] Address: [address] [place] [address] Performed By: #### 5 7021-8 ####[facility] LABCLIA [id number] [place] [address] [place] Eosinophils/100 WBC (Bld) 0.6 % Normal [facility] Comment on above: Order Comment: Speci men Type: BLOOD SPECIMENOrdering Facility: [facility] Address: [address] [place], [place] [address] Performed By: #### 5 7021-8 ####[facility] LABCLIA [id number] [place] [address] [place] Erythrocyte distribution width (RBC) [Ratio] 17.8 % High 11.5-15.0 [facility] Comment on above: Order Comment: Speci men Type: BLOOD SPECIMENOrdering Facility: [facility] Address: [address] Performed By: #### 5 7021-8 ####[facility] LABCLIA [id number] [place] [address] [place] Hematocrit (Bld) [Volume fraction] 20.9 % Low 36.0-46.0 [facility] Comment on above: Order Comment: Speci men Type: BLOOD SPECIMENOrdering Facility: [facility] Address: [address] [place], [place] [address] Performed By: #### 5 7021-8 ####[facility] LABCLIA [id number] [place] [address] [place] Hemoglobin (Bld) [Mass/Vol] 7.1 g/dL Low 11.5-15.5 [facility] Comment on above: Order Comment: Speci men Type: BLOOD SPECIMENOrdering Facility: [facility] Address: [address] [place] [address] Performed By: #### 5 7021-8 ####[facility] LABCLIA [id number] [place] [address] [place] Lymphocytes (Bld) [#/Vol] 1.29 10*3/uL Normal 1.00-4.00 [facility] Comment on above: Order Comment: Speci men Type: BLOOD SPECIMENOrdering Facility: [facility] Address: [address] [place] [address] Performed By: #### 5 7021-8 ####[facility] LABCLIA [id number] [place] [address] [place] Lymphocytes/100 WBC (Bld) 77.2 % Normal [facility] Comment on above: Order Comment: Speci men Type: BLOOD SPECIMENOrdering Facility: [facility] Address: [address] [place] [address] Performed By: #### 5 7021-8 ####[facility] LABCLIA [id number] [place] [address] [place] MCH (RBC) [Entitic mass] 33.5 pg Normal 26.0-34.0 [facility] Comment on above: Order Comment: Speci men Type: BLOOD SPECIMENOrdering Facility: [facility] Address: [address] [place], [place] [address] Performed By: #### 5 7021-8 ####[facility] LABCLIA [id number] [place] [address] [place] MCHC (RBC) [Mass/Vol] 34.0 g/dL Normal 30.5-36.0 [facility] Comment on above: Order Comment: Speci men Type: BLOOD SPECIMENOrdering Facility: [facility] Address: [address] Performed By: #### 5 7021-8 ####[facility] LABCLIA [id number] [place] [address] [place] MCV (RBC) [Entitic vol] 98.6 fL Normal 80.0-100.0 [facility] Comment on above: Order Comment: Speci men Type: BLOOD SPECIMENOrdering Facility: [facility] Address: [address] Performed By: #### 5 7021-8 ####[facility] LABCLIA [id number] [address] [place] Metamyelocytes/10 0 WBC (Bld) 4.0 % Normal [facility] Comment on above: Order Comment: Speci men Type: BLOOD SPECIMENOrdering Facility: [facility] Address: [address] [place], [place] [address] Performed By: #### 5 7021-8 ####[facility] LABIA [id number] [place] [address] [place] Monocytes (Bld) [#/Vol] 0.02 10*3/uL Normal <0.87 [facility] Comment on above: Order Comment: Speci men Type: BLOOD SPECIMENOrdering Facility: [facility] Address: [address] Performed By: #### 5 7021-8 ####[facility] LABCLIA [id number] [address] [place] Monocytes/100 WBC (Bld) 1.1 % Normal [facility] Comment on above: Order Comment: Speci men Type: BLOOD SPECIMENOrdering Facility: [facility] Address: [address] Performed By: #### 5 7021-8 ####[facility] LABCLIA [id number] [place] [address] [place] Neutrophils (Bld) [#/Vol] 0.25 10*3/uL Low 1.45-7.50 [facility] Comment on above: Order Comment: Speci men Type: BLOOD SPECIMENOrdering Facility: [facility] Address: [address] [place] [address] Performed By: #### 5 7021-8 ####[facility] LABCLIA [id number] [place] [address] [place] Neutrophils/100 WBC (Bld) 14.8 % Normal [facility] Comment on above: Order Comment: Speci men Type: BLOOD SPECIMENOrdering Facility: [facility] Address: [address] [place] [address] Performed By: #### 5 7021-8 ####[facility] LABCLIA [id number] [place] [address] [place] Nucleated RBC (Bld) [#/Vol] 0.03 10*3/uL High <0.01 [facility] Comment on above: Order Comment: Speci men Type: BLOOD SPECIMENOrdering Facility: [facility] Address: [address] [place] [address] Performed By: #### 5 7021-8 ####[facility] LABCLIA [id number] [place] [address] [place] Nucleated RBC/100 WBC (Bld) [Ratio] 1.7 /100 WBC Normal [facility] Comment on above: Order Comment: Speci men Type: BLOOD SPECIMENOrdering Facility: [facility] Address: [address] [place] [address] Performed By: #### 5 7021-8 ####[facility] LABCLIA [id number] [place] [address] [place] Ovalocytes LM Ql (Bld) Few Normal [facility] Comment on above: Order Comment: Speci men Type: BLOOD SPECIMENOrdering Facility: [facility] Address: [address] [address] Performed By: #### 5 7021-8 ####[facility] LABIA [id number] [place] [address] [place] Platelet mean volume (Bld) [Entitic vol] Normal [facility] Comment on above: Order Comment: Speci men Type: BLOOD SPECIMENOrdering Facility: [facility] Address: [address] [address] Result Comment: Unab le to Report. Performed By: #### 5 7021-8 ####[facility] LABIA [id number] [place] [address] [place] Platelets (Bld) [#/Vol] 16 10*3/uL Low 150-400 [facility] Comment on above: Order Comment: Speci men Type: BLOOD SPECIMENOrdering Facility: [facility] Address: [address] [address] Result Comment: No c lot detected.Results checked and verified. Performed By: #### 5 7021-8 ####[facility] LABCLIA [id number] [place] [address] [place] Platelets Estimate (Bld) [#/Vol] Decreased Normal [facility] Comment on above: Order Comment: Speci men Type: BLOOD SPECIMENOrdering Facility: [facility] Address: [address] Performed By: #### 5 7021-8 ####[facility] LABIA [id number] [place] [address] [place] Polychromasia LM Ql (Bld) Slight Normal [facility] Comment on above: Order Comment: Speci men Type: BLOOD SPECIMENOrdering Facility: [facility] Address: [address] Performed By: #### 5 7021-8 ####[facility] LABCLIA [id number] [place] [address] [place] RBC (Bld) [#/Vol] 2.12 10*6/uL Low 3.90-5.20 [facility] Comment on above: Order Comment: Speci men Type: BLOOD SPECIMENOrdering Facility: [facility] Address: [address] [place] [address] Performed By: #### 5 7021-8 ####[facility] LABCLIA [id number] [place] [address] [place] RBC FRAGMENTS Few Abnormal None Seen [facility] Comment on above: Order Comment: Speci men Type: BLOOD SPECIMENOrdering Facility: [facility] Address: [address] [place] [address] Performed By: #### 5 7021-8 ####[facility] LABIA [id number] [address] STATES OF [facility] MORPH Reviewed: see result s of individual morphologies Normal [facility] Comment on above: Order Comment: Speci men Type: BLOOD SPECIMENOrdering Facility: [facility] Address: [address] [place], [place] [address] Performed By: #### 5 7021-8 ####[facility] LABIA [id number] [place] [address] [place] WBC (Bld) [#/Vol] 1.67 10*3/uL Low 3.70-11.00 [facility] Comment on above: Order Comment: Speci men Type: BLOOD SPECIMENOrdering Facility: [facility] Address: [address] [place], [place] [address] Result Comment: No c lot detected. Performed By: #### 5 7021-8 ####[facility] LABCLIA [id number] [place] [id number] [address] [place] WBC Left Shift Ql (Bld) Present Normal [facility] Comment on above: Order Comment: Speci men Type: BLOOD SPECIMENOrdering Facility: [facility] Address: [address] [place] [address] Performed By: #### 5 7021-8 ####[facility] LABCLIA [id number] [place] [address] [place] CNCOon 05-30-2023 CNCO Letter Text Normal [facility] CONSULT PROGon 05-30-2023 CONSULT PROG Normal [facility] Comprehensive metabolic 2000 panelon 05-30-2023 Albumin [Mass/Vol] 3.5 g/dL Low 3.9-4.9 [facility] Comment on above: Order Comment: Speci men Type: BLOOD SPECIMENOrdering Facility: [facility] Address: [address] [place] [address] Performed By: #### 1 9123-9, 2777-1, 308-, 76225-7 ####[facility] LABCLIA [id number] [place] [address] [place] ALP [Catalytic activity/Vol] 54 U/L Normal 34-123 [facility] Comment on above: Order Comment: Speci men Type: BLOOD SPECIMENOrdering Facility: [facility] Address: [address] [place] [address] Performed By: #### 1 9123-9, 2777-1, 308-, 71135-5 ####[facility] LABCLIA [id number] [place] [address] [place] ALT [Catalytic activity/Vol] 18 U/L Normal 7-38 [facility] Comment on above: Order Comment: Speci men Type: BLOOD SPECIMENOrdering Facility: [facility] Address: [address] [place] [address] Performed By: #### 1 9123-9, 2777-1, 3084-1, 88474-8 ####[facility] LABCLIA [id number] [place] [address] [place] Anion gap [Moles/Vol] 9 mmol/L Normal 9-18 [facility] Comment on above: Order Comment: Speci men Type: BLOOD SPECIMENOrdering Facility: [facility] Address: [address] [place] [address] Performed By: #### 1 9123-9, 2777-1, 308-, 84066-6 ####[facility] LABCLIA [id number] [place] [address] [place] AST [Catalytic activity/Vol] 17 U/L Normal 13-35 [facility] Comment on above: Order Comment: Speci men Type: BLOOD SPECIMENOrdering Facility: [facility] Address: [address] [place] [address] Performed By: #### 1 9123-9, 2777-, 3083-, 54174-2 ####[facility] LABCLIA [id number] [place] [address] [place] Bilirubin [Mass/Vol] 0.4 mg/dL Normal 0.2-1.3 [facility] Comment on above: Order Comment: Speci men Type: BLOOD SPECIMENOrdering Facility: [facility] Address: [address] [place] [address] Performed By: #### 1 9123-9, 2777-, 30812-02, 43542-4 ####[facility] LABCLIA [id number] [place] [address] [place] Calcium [Mass/Vol] 8.7 mg/dL Normal 8.5-10.2 [facility] Comment on above: Order Comment: Speci men Type: BLOOD SPECIMENOrdering Facility: [facility] Address: [address] [place] [address] Performed By: #### 1 9123-9, 2777-1, 308-, 26536-0 ####[facility] LABCLIA [id number] [place] [address] [place] Chloride [Moles/Vol] 107 mmol/L High 97-105 [facility] Comment on above: Order Comment: Speci men Type: BLOOD SPECIMENOrdering Facility: [facility] Address: [address] [place] [address] Performed By: #### 1 9123-9, 2777-1, 3084-, 49505-6 ####[facility] LABIA [id number] [place] [address] [place] CO2 [Moles/Vol] 25 mmol/L Normal 22-30 [facility] Comment on above: Order Comment: Speci men Type: BLOOD SPECIMENOrdering Facility: [facility] Address: [address] [place] [address] Performed By: #### 1 9123-9, 2777-1, 3084-, 37070-8 ####[facility] LABIA [id number] [place] [address] [place] Creatinine [Mass/Vol] 0.93 mg/dL Normal 0.58-0.96 [facility] Comment on above: Order Comment: Speci men Type: BLOOD SPECIMENOrdering Facility: [facility] Address: [address] [place] [address] Performed By: #### 1 9123-9, 2777-1, 3084-, 79036-5 ####[facility] LABIA [id number] [place] [address] [place] Creatinine and Glomerular filtration rate.predicted panel (S/P/Bld) 67 mL/min/1.73m??? Normal >=60 [facility] Comment on above: Order Comment: Speci men Type: BLOOD SPECIMENOrdering Facility: [facility] Address: [address] [place] [address] Result Comment: Berenice mated Glomerular Filtration Rate (eGFR) is calculated using the 2021 CKD-EPI creatinine equation. This equation utilizes serum creatinine, sex, and age as parameters. The creatinine assay has traceable calibration to isotope dilution-mass spectrometry. Refer to KDIGO guidelines for clinical interpretation. In patients with unstable renal function, e.g. those with acute kidney injury, the eGFR may not accurately reflect actual GFR. Performed By: #### 1 9123-9, 277-, 3083-09, 19000-2 ####[facility] LABCLIA [id number] [place] [address] [place] Glucose [Mass/Vol] 119 mg/dL High 74-99 [facility] Comment on above: Order Comment: Elvia escobar Type: BLOOD SPECIMENOrdering Facility: [facility] Address: [address] [address] Result Comment: The [place] [employer] (ADA) provides guidance for cutoff [...] Standards of Medical Care in Diabetes 2016, [place] [employer]. Diabetes Care. 2016.39(Suppl 1). Performed By: #### 1 9123-9, 2776-09, 3083-09, 96621-3 ####[facility] LABCLIA [id number] [place] [id number] [place] Potassium [Moles/Vol] 3.9 mmol/L Normal 3.7-5.1 [facility] Comment on above: Order Comment: Elvia escobar Type: BLOOD SPECIMENOrdering Facility: [facility] Address: [address] [id number] Performed By: #### 1 9123-9, 277-, 3083-09, 24638-8 ####[facility] LABCLIA [id number] [address] [address] [place] Protein [Mass/Vol] 5.7 g/dL Low 6.3-8.0 [facility] Comment on above: Order Comment: Speci men Type: BLOOD SPECIMENOrdering Facility: [facility] Address: [address] [place] [address] Performed By: #### 1 9123-9, 2777-1, 308-, 00607-9 ####[facility] LABIA [id number] [place] [address] [place] Sodium [Moles/Vol] 141 mmol/L Normal 136-144 [facility] Comment on above: Order Comment: Speci men Type: BLOOD SPECIMENOrdering Facility: [facility] Address: [address] [place] [address] Performed By: #### 1 9123-9, 2777-1, 308-, 71035-4 ####[facility] LABIA [id number] [place] [address] [place] Urea nitrogen [Mass/Vol] 15 mg/dL Normal 7-21 [facility] Comment on above: Order Comment: Speci men Type: BLOOD SPECIMENOrdering Facility: [facility] Address: [address] [place], [place] [address] Performed By: #### 1 9123-9, 2777-1, 30812-02, 14796-3 ####[facility] LABIA [id number] [address] [address] [place] MEDICAL EMERon 05-30-2023 MEDICAL RUFUS Normal [facility] Magnesium SerPl-mCncon 05-30 Magnesium [Mass/Vol] 2.1 mg/dL Normal 1.7-2.3 [facility] Comment on above: Order Comment: Speci men Type: BLOOD SPECIMENOrdering Facility: [facility] Address: [address] [place] [address] Performed By: #### 1 9123-9, 2777-1, 3084-1, 78829-4 ####[facility] LABCLIA [id number] [place] [id number] [place] NUTRITIONon 05-30-2023 NUTRITION Normal [facility] PT EDon 05-30-2023 PT ED Normal [facility] Phosphate SerPl-mCncon 05-30 Phosphate [Mass/Vol] 4.0 mg/dL Normal 2.7-4.8 [facility] Comment on above: Order Comment: Speci men Type: BLOOD SPECIMENOrdering Facility: [facility] Address: [address] [place], [place] [address] Performed By: #### 1 9123-9, 2777-1, 308-, 29966-1 ####[facility] LABCLIA [id number] [address] [place] SOCIAL WORKon 05-30-2023 SOCIAL WORK Normal [facility] SOCIAL WORK Normal [facility] Urate SerPl-[facility] Urate [Mass/Vol] 2.2 mg/dL Low 2.5-6.6 [facility] Comment on above: Order Comment: Speci men Type: BLOOD SPECIMENOrdering Facility: [facility] Address: [address] [place], [place] [address] Performed By: #### 1 9123-9, 2777-1, 308-1, 20169-7 ####[facility] LABCLIA [id number] [place] [id number] [place] BMT REC INIT W/Uon 3 ALLOGEN RESULTS TO FOLLOW See Allogen report to follow Normal [facility] Comment on above: Order Comment: Speci men Type: BLOOD SPECIMENOrdering Facility: [facility] Address: [address] [place], [place] [address] Performed By: #### B MTRIW ####[facility] LABCLIA [id number] [place] [address] [place] BRIEF OP NOTon 05-29-2023 BRIEF OP NOT Normal [facility] CASE MGT INIT ASSESon 2022 CASE MGT INIT ASSES Normal [facility] CBC W Auto Differential pane l (Bld)on 05-29-2023 Anisocytosis Ql (Bld) Present Normal [facility] Comment on above: Order Comment: Speci men Type: BLOOD SPECIMENOrdering Facility: [facility] Address: [address] [address] Performed By: #### 5 7021-8 ####[facility] LABIA [id number] [place] [address] [place] Basophils (Bld) [#/Vol] 0.00 10*3/uL Normal <0.11 [facility] Comment on above: Order Comment: Speci men Type: BLOOD SPECIMENOrdering Facility: [facility] Address: [address] [address] Performed By: #### 5 7021-8 ####[facility] LABIA [id number] [place] [address] [place] Basophils/100 WBC (Bld) 0.0 % Normal [facility] Comment on above: Order Comment: Speci men Type: BLOOD SPECIMENOrdering Facility: [facility] Address: [address] Performed By: #### 5 7021-8 ####[facility] LABCLIA [id number] [address] [place] BLAST% 4.9 % High <=0.0 [facility] Comment on above: Order Comment: Speci men Type: BLOOD SPECIMENOrdering Facility: [facility] Address: [address] Performed By: #### 5 7021-8 ####[facility] LABCLIA [id number] [place] [address] [place] Dacrocytes LM Ql (Bld) Few Normal [facility] Comment on above: Order Comment: Speci men Type: BLOOD SPECIMENOrdering Facility: [facility] Address: [address] [place] [address] Performed By: #### 5 7021-8 ####[facility] LABCLIA [id number] [place] [address] [place] Differential cell count method Nom (Bld) Manual Normal [facility] Comment on above: Order Comment: Speci men Type: BLOOD SPECIMENOrdering Facility: [facility] Address: [address] [place] [address] Performed By: #### 5 7021-8 ####[facility] LABCLIA [id number] [place] [address] [place] Eosinophils (Bld) [#/Vol] 0.03 10*3/uL Normal <0.46 [facility] Comment on above: Order Comment: Speci men Type: BLOOD SPECIMENOrdering Facility: [facility] Address: [address] [place], [place] [address] Performed By: #### 5 7021-8 ####[facility] LABCLIA [id number] [address] [place] Eosinophils/100 WBC (Bld) 2.2 % Normal [facility] Comment on above: Order Comment: Speci men Type: BLOOD SPECIMENOrdering Facility: [facility] Address: [address] [place], [place] [address] Performed By: #### 5 7021-8 ####[facility] LABCLIA [id number] [place] [address] [place] Erythrocyte distribution width (RBC) [Ratio] 18.3 % High 11.5-15.0 [facility] Comment on above: Order Comment: Speci men Type: BLOOD SPECIMENOrdering Facility: [facility] Address: [address] [place], [place] [address] Performed By: #### 5 7021-8 ####[facility] LABCLIA [id number] [place] [address] [place] Hematocrit (Bld) [Volume fraction] 18.6 % Low 36.0-46.0 [facility] Comment on above: Order Comment: Speci men Type: BLOOD SPECIMENOrdering Facility: [facility] Address: [address] [place], [place] [address] Performed By: #### 5 7021-8 ####[facility] LABIA [id number] [place] [address] [place] Hemoglobin (Bld) [Mass/Vol] 6.6 g/dL Low 11.5-15.5 [facility] Comment on above: Order Comment: Speci men Type: BLOOD SPECIMENOrdering Facility: [facility] Address: [address] [place], [place] [address] Performed By: #### 5 7021-8 ####[facility] LABIA [id number] [place] [address] [place] Lymphocytes (Bld) [#/Vol] 1.08 10*3/uL Normal 1.00-4.00 [facility] Comment on above: Order Comment: Speci men Type: BLOOD SPECIMENOrdering Facility: [facility] Address: [address] [place], [place] [address] Performed By: #### 5 7021-8 ####[facility] LABCLIA [id number] [place] [address] [place] Lymphocytes/100 WBC (Bld) 75.2 % Normal [facility] Comment on above: Order Comment: Speci men Type: BLOOD SPECIMENOrdering Facility: [facility] Address: [address] [place], [place] [address] Performed By: #### 5 7021-8 ####[facility] LABCLIA [id number] [address] STATES [facility] MCH (RBC) [Entitic mass] 35.1 pg High 26.0-34.0 [facility] Comment on above: Order Comment: Speci men Type: BLOOD SPECIMENOrdering Facility: [facility] Address: [address] [place] [address] Performed By: #### 5 7021-8 ####[facility] LABCLIA [id number] [address] MCHC (RBC) [Mass/Vol] 35.5 g/dL Normal 30.5-36.0 [facility] Comment on above: Order Comment: Speci men Type: BLOOD SPECIMENOrdering Facility: [facility] Address: [address] [place] [address] Performed By: #### 5 7021-8 ####[facility] LABIA [id number] [address] OF [facility] MCV (RBC) [Entitic vol] 98.9 fL Normal 80.0-100.0 [facility] Comment on above: Order Comment: Speci men Type: BLOOD SPECIMENOrdering Facility: [facility] Address: [address] [place] [address] Performed By: #### 5 7021-8 ####[facility] LABIA [id number] [place] [address] [place] Monocytes (Bld) [#/Vol] 0.01 10*3/uL Normal <0.87 [facility] Comment on above: Order Comment: Speci men Type: BLOOD SPECIMENOrdering Facility: [facility] Address: [address] [place], [place] [address] Performed By: #### 5 7021-8 ####[facility] LABCLIA [id number] [address] [place] Monocytes/100 WBC (Bld) 0.4 % Normal [facility] Comment on above: Order Comment: Speci men Type: BLOOD SPECIMENOrdering Facility: [facility] Address: [address] Performed By: #### 5 7021-8 ####[facility] LABCLIA [id number] [address] [place] MYELO% 0.4 % Normal [facility] Comment on above: Order Comment: Speci men Type: BLOOD SPECIMENOrdering Facility: [facility] Address: [address] Performed By: #### 5 7021-8 ####[facility] LABCLIA [id number] [place] [address] [place] Neutrophils (Bld) [#/Vol] 0.24 10*3/uL Low 1.45-7.50 [facility] Comment on above: Order Comment: Speci men Type: BLOOD SPECIMENOrdering Facility: [facility] Address: [address] Performed By: #### 5 7021-8 ####[facility] LABCLIA [id number] [place] [address] [place] Neutrophils/100 WBC (Bld) 16.9 % Normal [facility] Comment on above: Order Comment: Speci men Type: BLOOD SPECIMENOrdering Facility: [facility] Address: [address] Performed By: #### 5 7021-8 ####[facility] LABCLIA [id number] [place] [address] [place] Nucleated RBC (Bld) [#/Vol] 0.02 10*3/uL High <0.01 [facility] Comment on above: Order Comment: Speci men Type: BLOOD SPECIMENOrdering Facility: [facility] Address: [address] Performed By: #### 5 7021-8 ####[facility] LABCLIA [id number] [place] [address] [place] Nucleated RBC/100 WBC (Bld) [Ratio] 1.3 /100 WBC Normal [facility] Comment on above: Order Comment: Speci men Type: BLOOD SPECIMENOrdering Facility: [facility] Address: [address] [place] [address] Performed By: #### 5 7021-8 ####[facility] LABCLIA [id number] [place] [address] [place] Ovalocytes LM Ql (Bld) Few Normal [facility] Comment on above: Order Comment: Speci men Type: BLOOD SPECIMENOrdering Facility: [facility] Address: [address] [place] [address] Performed By: #### 5 7021-8 ####[facility] LABIA [id number] [place] [address] [place] Platelet mean volume (Bld) [Entitic vol] Normal [facility] Comment on above: Order Comment: Speci men Type: BLOOD SPECIMENOrdering Facility: [facility] Address: [address] [place] [address] Result Comment: Unab le to Report. Performed By: #### 5 7021-8 ####[facility] LABIA [id number] [place] [address] [place] Platelets (Bld) [#/Vol] 14 10*3/uL Low 150-400 [facility] Comment on above: Order Comment: Speci men Type: BLOOD SPECIMENOrdering Facility: [facility] Address: [address] [place] [address] Result Comment: Resu lts checked and verified.No clot detected. Performed By: #### 5 7021-8 ####[facility] LABCLIA [id number] [place] [address] [place] Platelets Estimate (Bld) [#/Vol] Decreased Normal [facility] Comment on above: Order Comment: Speci men Type: BLOOD SPECIMENOrdering Facility: [facility] Address: [address] [place] [address] Performed By: #### 5 7021-8 ####[facility] LABCLIA [id number] [place] [address] [place] Polychromasia LM Ql (Bld) Slight Normal [facility] Comment on above: Order Comment: Speci men Type: BLOOD SPECIMENOrdering Facility: [facility] Address: [address] Performed By: #### 5 7021-8 ####[facility] LABIA [id number] [place] [address] [place] RBC (Bld) [#/Vol] 1.88 10*6/uL Low 3.90-5.20 [facility] Comment on above: Order Comment: Speci men Type: BLOOD SPECIMENOrdering Facility: [facility] Address: [address] Performed By: #### 5 7021-8 ####[facility] LABCLIA [id number] [place] [address] [place] RBC FRAGMENTS Few Abnormal None Seen [facility] Comment on above: Order Comment: Speci men Type: BLOOD SPECIMENOrdering Facility: [facility] Address: [address] [place] [address] Performed By: #### 5 7021-8 ####[facility] LABCLIA [id number] [place] [address] [place] RED CELL MORPH Reviewed: see result s of individual morphologies Normal [facility] Comment on above: Order Comment: Speci men Type: BLOOD SPECIMENOrdering Facility: [facility] Address: [address] Performed By: #### 5 7021-8 ####[facility] LABCLIA [id number] [place] [address] [place] WBC (Bld) [#/Vol] 1.43 10*3/uL Low 3.70-11.00 [facility] Comment on above: Order Comment: Speci men Type: BLOOD SPECIMENOrdering Facility: [facility] Address: [address] [place] [address] Result Comment: No c lot detected. Performed By: #### 5 7021-8 ####[facility] LABCLIA [id number] [address] [place] WBC Left Shift Ql (Bld) Present Normal [facility] Comment on above: Order Comment: Speci men Type: BLOOD SPECIMENOrdering Facility: [facility] Address: [address] [place] [address] Performed By: #### 5 7021-8 ####[facility] LABIA [id number] [address] CMV IgG Qnon 05-29-2023 CMV IGG QUAL Negative Normal Negative [facility] Comment on above: Order Comment: Rochellei luz Type: BLOOD SPECIMENOrdering Facility: [facility] Address: [address] [place] [address] Result Comment: No s erological evidence of past exposure to Cytomegalovirus. Cannot exclude recent infection if the specimen collected within 4-6 weeks after infection. Performed By: #### 7 852-7 ####[facility] LABCLIA [id number] [address] [place] CMV IgG SerPl-aCncon 023 CMV IgG Qn 0.24 U/mL Normal [facility] Comment on above: Order Comment: Speci luz Type: BLOOD SPECIMENOrdering Facility: [facility] Address: [address] [place] [address] Result Comment: The magnitude of the measured result is not indicative of the amount of antibody present.U/mL values are interpreted as follows:Negative <0.6Equivocal 0.6 to <0.70Positive >=0.70 Performed By: #### 7 852-7 ####[facility] LABCLIA [id number] [place] [address] [place] CONSULTon 05-29-2023 CONSULT Normal [facility] Comprehensive metabolic 2000 panelon 05-29-2023 Albumin [Mass/Vol] 3.5 g/dL Low 3.9-4.9 [facility] Comment on above: Order Comment: Speci men Type: BLOOD SPECIMENOrdering Facility: [facility] Address: [address] [place] [address] Performed By: #### 2 4323-8 ####[facility] LABCLIA [id number] [place] [address] [place] ALP [Catalytic activity/Vol] 50 U/L Normal 34-123 [facility] Comment on above: Order Comment: Speci men Type: BLOOD SPECIMENOrdering Facility: [facility] Address: [address] [place] [address] Performed By: #### 2 4323-8 ####[facility] LABCLIA [id number] [place] [address] [place] ALT [Catalytic activity/Vol] 11 U/L Normal 7-38 [facility] Comment on above: Order Comment: Speci men Type: BLOOD SPECIMENOrdering Facility: [facility] Address: [address] Performed By: #### 2 4323-8 ####[facility] LABCLIA [id number] [place] [address] [place] Anion gap [Moles/Vol] 10 mmol/L Normal 9-18 [facility] Comment on above: Order Comment: Speci men Type: BLOOD SPECIMENOrdering Facility: [facility] Address: [address] [place] [address] Performed By: #### 2 4323-8 ####[facility] LABCLIA [id number] [place] [address] [place] AST [Catalytic activity/Vol] 12 U/L Low 13-35 [facility] Comment on above: Order Comment: Speci men Type: BLOOD SPECIMENOrdering Facility: [facility] Address: [address] [place] [address] Performed By: #### 2 4323-8 ####[facility] LABCLIA [id number] [place] [address] [place] Bilirubin [Mass/Vol] 0.4 mg/dL Normal 0.2-1.3 [facility] Comment on above: Order Comment: Speci men Type: BLOOD SPECIMENOrdering Facility: [facility] Address: [address] [place] [address] Performed By: #### 2 4323-8 ####[facility] LABCLIA [id number] [place] [address] [place] Calcium [Mass/Vol] 8.5 mg/dL Normal 8.5-10.2 [facility] Comment on above: Order Comment: Speci men Type: BLOOD SPECIMENOrdering Facility: [facility] Address: [address] [place] [address] Performed By: #### 2 4323-8 ####[facility] LABCLIA [id number] [place] [address] [place] Chloride [Moles/Vol] 107 mmol/L High 97-105 [facility] Comment on above: Order Comment: Speci men Type: BLOOD SPECIMENOrdering Facility: [facility] Address: [address] [place] [address] Performed By: #### 2 4323-8 ####[facility] LABCLIA [id number] [place] [address] [place] CO2 [Moles/Vol] 25 mmol/L Normal 22-30 [facility] Comment on above: Order Comment: Speci men Type: BLOOD SPECIMENOrdering Facility: [facility] Address: [address] [place] [address] Performed By: #### 2 4323-8 ####[facility] LABIA [id number] [address] Creatinine [Mass/Vol] 0.92 mg/dL Normal 0.58-0.96 [facility] Comment on above: Order Comment: Rochellei men Type: BLOOD SPECIMENOrdering Facility: [facility] Address: [address] [place] [address] Performed By: #### 2 4323-8 ####[facility] LABIA [id number] [address] Creatinine and Glomerular filtration rate.predicted panel (S/P/Bld) 68 mL/min/1.73m??? Normal >=60 [facility] Comment on above: Order Comment: Elvia men Type: BLOOD SPECIMENOrdering Facility: [facility] Address: [address] [place] [address] Result Comment: Berenice mated Glomerular Filtration Rate [...] actual GFR. Performed By: #### 2 4323-8 ####[facility] LABIA [id number] [address] [place] Glucose [Mass/Vol] 110 mg/dL High 74-99 [facility] Comment on above: Order Comment: Elvia men Type: BLOOD SPECIMENOrdering Facility: [facility] Address: [address] [place] [address] Result Comment: The [place] [employer] (ADA) provides guidance for cutoff [...] Standards of Medical Care in Diabetes 2016, [place] [employer]. Diabetes Care. 2016.39(Suppl 1). Performed By: #### 2 4323-8 ####[facility] LABCLIA [id number] [place] [address] [place] Potassium [Moles/Vol] 3.9 mmol/L Normal 3.7-5.1 [facility] Comment on above: Order Comment: Speci men Type: BLOOD SPECIMENOrdering Facility: [facility] Address: [address] [place] [address] Performed By: #### 2 4323-8 ####[facility] LABIA [id number] [place] [address] [place] Protein [Mass/Vol] 5.6 g/dL Low 6.3-8.0 [facility] Comment on above: Order Comment: Rochellei men Type: BLOOD SPECIMENOrdering Facility: [facility] Address: [address] [place] [address] Performed By: #### 2 4323-8 ####[facility] LABIA [id number] [place] [address] [place] Sodium [Moles/Vol] 142 mmol/L Normal 136-144 [facility] Comment on above: Order Comment: Speci men Type: BLOOD SPECIMENOrdering Facility: [facility] Address: [address] [place] [address] Performed By: #### 2 4323-8 ####[facility] LABCLIA [id number] [place] [address] [place] Urea nitrogen [Mass/Vol] 16 mg/dL Normal 7-21 [facility] Comment on above: Order Comment: Speci men Type: BLOOD SPECIMENOrdering Facility: [facility] Address: [address] [place] [address] Performed By: #### 2 4323-8 ####[facility] LABCLIA [id number] [place] [address] [place] IR CENTRAL LINE REMOVALon IR CENTRAL LINE REMOVAL Normal [facility] MEDICAL EMERon 05-29-2023 MEDICAL RUFUS Normal [facility] SOCIAL WORKon 05-29-2023 SOCIAL WORK Normal [facility] SURGICAL PATHOLOGYon 023 CASE REPORT Normal [facility] Comment on above: Order Comment: Speci men Type: TISSUE SPECIMENOrdering Facility: [facility] Address: [address] [place] [address] Result Comment: Surg ical Pathology Report Case: [id number] Provider: Brandy Castro, Collected: 05/29/2023 03:21 PM ELECTRICIAN CHIEF.CNPOrdering Location: [place] [address] Received: 05/29/2023 10:53 PMPathologist: Rosalia Gaytan MDSpecimen: HARDWARE Performed By: #### S ####[facility] LABCLIA [id number] [place] [address] [place] CLINICAL HISTORY infected port Normal [facility] Comment on above: Order Comment: Speci men Type: TISSUE SPECIMENOrdering Facility: [facility] Address: [address] [place] [address] Performed By: #### S ####[facility] LABCLIA [id number] [place] [address] [place] FINAL DIAGNOSIS Normal [facility] Comment on above: Order Comment: Speci men Type: TISSUE SPECIMENOrdering Facility: [facility] Address: [address] [place] [address] Result Comment: A. S ite not specified, port removal:-Unremarkable port (gross diagnosis only).ME/JXM 05/30/2023 Performed By: #### S ####[facility] LABCLIA [id number] [address] [place] FINAL PERFORMING LAB Normal [facility] Comment on above: Order Comment: Speci men Type: TISSUE SPECIMENOrdering Facility: [facility] Address: [address] [place] [address] Result Comment: Diag nostic interpretation performed at [facility], [address] [place] [address] CLIA# [id number] Director: Boris Wood M.D. Performed By: #### S ####[facility] LABIA [id number] [address] GROSS DESCRIPTION A. HARDWARE Normal [facility] Comment on above: Order Comment: Speci men Type: TISSUE SPECIMENOrdering Facility: [facility] Address: [address] [place] [address] Result Comment: Rece ived fresh labeled hardware [...] for gross examination only.Gross examination performed at [address] [id number] 05/30/23 10:43 AM Performed By: #### S ####[facility] LABIA [id number] [place] [address] [place] TYPE + SCREENon 05-29-2023 ABO O Normal [facility] Comment on above: Order Comment: Speci men Type: BLOOD SPECIMENOrdering Facility: [facility] Address: [address] [place] [address] Performed By: #### T SCR ####CC MAIN BLOOD BANKCLIA [id number] [address] STATES OF [facility] HISTORICAL AB SCR STATUS Negative Normal [facility] Comment on above: Order Comment: Speci men Type: BLOOD SPECIMENOrdering Facility: [facility] Address: [address] [place] [address] Performed By: #### T SCR ####CC MAIN BLOOD BANKCLIA [id number] [address] [place] Rh Nom (Bld) Positive Normal [facility] Comment on above: Order Comment: Speci men Type: BLOOD SPECIMENOrdering Facility: [facility] Address: [address] [place] [address] Performed By: #### T SCR ####CC MAIN BLOOD BANKCLIA [id number] [address] TYPE AND SCREEN EXPIRATION 06/01/2023 23:59 Normal [facility] Comment on above: Order Comment: Speci men Type: BLOOD SPECIMENOrdering Facility: [facility] Address: [address] [place] [address] Performed By: #### T SCR ####CC MAIN BLOOD BANKCLIA [id number] [address] [place] Bacteria Bld Culton 05-28-20 23 Bacteria identified Cx Nom (Bld) CULTURE, BLOOD: No growth 5 days Normal [facility] Comment on above: Performed By: #### 6 00-7 ####[facility] LABCLIA [id number] [place] [address] [place] Bacteria identified Cx Nom (Bld) CULTURE, BLOOD: No growth 5 days Normal [facility] Comment on above: Performed By: #### 6 00-7 ####[facility] LABCLIA [id number] [address] [id number] [address] [place] CBC W Auto Differential pane l (Bld)on 05-28-2023 Anisocytosis Ql (Bld) Present Normal [facility] Comment on above: Order Comment: Speci men Type: BLOOD SPECIMENOrdering Facility: [facility] Address: [address] [place] [address] Performed By: #### 5 7021-8, [id number] ####[facility] LABCLIA [id number] [place] [address] [place] Basophils (Bld) [#/Vol] 0.00 10*3/uL Normal <0.11 [facility] Comment on above: Order Comment: Speci men Type: BLOOD SPECIMENOrdering Facility: [facility] Address: [address] [place] [address] Performed By: #### 5 7021-8, [id number] ####[facility] LABCLIA [id number] [address] [place] Basophils/100 WBC (Bld) 0.0 % Normal [facility] Comment on above: Order Comment: Speci men Type: BLOOD SPECIMENOrdering Facility: [facility] Address: [address] [place], [place] [address] Performed By: #### 5 7021-8, [id number] ####[facility] LABCLIA [id number] [place] [address] [place] BLAST% 7.0 % High <=0.0 [facility] Comment on above: Order Comment: Speci men Type: BLOOD SPECIMENOrdering Facility: [facility] Address: [address] [place], [place] [address] Performed By: #### 5 7021-8, [id number] ####[facility] LABCLIA [id number] [place] [address] [place] Differential cell count method Nom (Bld) Manual Normal [facility] Comment on above: Order Comment: Speci men Type: BLOOD SPECIMENOrdering Facility: [facility] Address: [address] [address] Performed By: #### 5 7021-8, [id number] ####[facility] LABCLIA [id number] [place] [address] [place] [facility] [place] Eosinophils (Bld) [#/Vol] 0.03 10*3/uL Normal <0.46 [facility] Comment on above: Order Comment: Speci men Type: BLOOD SPECIMENOrdering Facility: [facility] Address: [address] [address] Performed By: #### 5 7021-8, [id number] ####[facility] LABCLIA [id number] [place] [address] [place] Eosinophils/100 WBC (Bld) 2.0 % Normal [facility] Comment on above: Order Comment: Speci men Type: BLOOD SPECIMENOrdering Facility: [facility] Address: [address] [place] [address] Performed By: #### 5 7021-8, [id number] ####[facility] LABCLIA [id number] [place] [address] [place] Erythrocyte distribution width (RBC) [Ratio] 18.3 % High 11.5-15.0 [facility] Comment on above: Order Comment: Speci men Type: BLOOD SPECIMENOrdering Facility: [facility] Address: [address] Performed By: #### 5 7021-8, [id number] ####[facility] LABCLIA [id number] [place] [address] [place] Hematocrit (Bld) [Volume fraction] 21.7 % Low 36.0-46.0 [facility] Comment on above: Order Comment: Speci men Type: BLOOD SPECIMENOrdering Facility: [facility] Address: [address] Performed By: #### 5 7021-8, [id number] ####[facility] LABCLIA [id number] [place] [address] [place] Hemoglobin (Bld) [Mass/Vol] 7.5 g/dL Low 11.5-15.5 [facility] Comment on above: Order Comment: Speci men Type: BLOOD SPECIMENOrdering Facility: [facility] Address: [address] [place] [address] Performed By: #### 5 7021-8, [id number] ####[facility] LABCLIA [id number] [place] [address] [place] HYPOGRANULATED PMNS Present Normal [facility] Comment on above: Order Comment: Speci men Type: BLOOD SPECIMENOrdering Facility: [facility] Address: [address] [place] [address] Performed By: #### 5 7021-8, [id number] ####[facility] LABCLIA [id number] [place] [address] [place] Lymphocytes (Bld) [#/Vol] 0.94 10*3/uL Low 1.00-4.00 [facility] Comment on above: Order Comment: Speci men Type: BLOOD SPECIMENOrdering Facility: [facility] Address: [address] [place] [address] Performed By: #### 5 7021-8, [id number] ####[facility] LABCLIA [id number] [place] [address] [place] Lymphocytes/100 WBC (Bld) 62.0 % Normal [facility] Comment on above: Order Comment: Speci men Type: BLOOD SPECIMENOrdering Facility: [facility] Address: [address] [place], [place] [address] Performed By: #### 5 7021-8, [id number] ####[facility] LABCLIA [id number] [place] [address] [place] MCH (RBC) [Entitic mass] 34.9 pg High 26.0-34.0 [facility] Comment on above: Order Comment: Speci men Type: BLOOD SPECIMENOrdering Facility: [facility] Address: [address] [place], [place] [address] Performed By: #### 5 7021-8, [id number] ####[facility] LABCLIA [id number] [place] [address] [place] MCHC (RBC) [Mass/Vol] 34.6 g/dL Normal 30.5-36.0 [facility] Comment on above: Order Comment: Speci men Type: BLOOD SPECIMENOrdering Facility: [facility] Address: [address] [place] [address] Performed By: #### 5 7021-8, [id number] ####[facility] LABCLIA [id number] [place] [address] [place] MCV (RBC) [Entitic vol] 100.9 fL High 80.0-100.0 [facility] Comment on above: Order Comment: Speci men Type: BLOOD SPECIMENOrdering Facility: [facility] Address: [address] [place], [place] [address] Performed By: #### 5 7021-8, [id number] ####[facility] LABCLIA [id number] [place] [address] [place] Monocytes (Bld) [#/Vol] 0.03 10*3/uL Normal <0.87 [facility] Comment on above: Order Comment: Speci men Type: BLOOD SPECIMENOrdering Facility: [facility] Address: [address] [place], [place] [address] Performed By: #### 5 7021-8, [id number] ####[facility] LABCLIA [id number] [place] [address] [place] Monocytes/100 WBC (Bld) 2.0 % Normal [facility] Comment on above: Order Comment: Speci men Type: BLOOD SPECIMENOrdering Facility: [facility] Address: [address] Performed By: #### 5 7021-8, [id number] ####[facility] LABCLIA [id number] [place] [address] [place] Neutrophils (Bld) [#/Vol] 0.41 10*3/uL Low 1.45-7.50 [facility] Comment on above: Order Comment: Speci men Type: BLOOD SPECIMENOrdering Facility: [facility] Address: [address] [place] [address] Performed By: #### 5 7021-8, [id number] ####[facility] LABCLIA [id number] [place] [address] [place] Neutrophils/100 WBC (Bld) 27.0 % Normal [facility] Comment on above: Order Comment: Speci men Type: BLOOD SPECIMENOrdering Facility: [facility] Address: [address] Performed By: #### 5 7021-8, [id number] ####[facility] LABCLIA [id number] [place] [address] [place] Nucleated RBC (Bld) [#/Vol] 0.02 10*3/uL High <0.01 [facility] Comment on above: Order Comment: Speci men Type: BLOOD SPECIMENOrdering Facility: [facility] Address: [address] Performed By: #### 5 7021-8, [id number] ####[facility] LABCLIA [id number] [place] [address] [place] Nucleated RBC/100 WBC (Bld) [Ratio] 1.0 /100 WBC Normal [facility] Comment on above: Order Comment: Speci men Type: BLOOD SPECIMENOrdering Facility: [facility] Address: [address] Performed By: #### 5 7021-8, [id number] ####[facility] LABCLIA [id number] [place] [address] [place] Ovalocytes LM Ql (Bld) Few Normal [facility] Comment on above: Order Comment: Speci men Type: BLOOD SPECIMENOrdering Facility: [facility] Address: [address] [place] [address] Performed By: #### 5 7021-8, [id number] ####[facility] LABCLIA [id number] [place] [address] [place] Platelet mean volume (Bld) [Entitic vol] Normal [facility] Comment on above: Order Comment: Speci men Type: BLOOD SPECIMENOrdering Facility: [facility] Address: [address] [place] [address] Result Comment: Unab le to Report. Performed By: #### 5 7021-8, [id number] ####[facility] LABCLIA [id number] [place] [address] [place] Platelets (Bld) [#/Vol] 17 10*3/uL Low 150-400 [facility] Comment on above: Order Comment: Speci men Type: BLOOD SPECIMENOrdering Facility: [facility] Address: [address] [place] [address] Result Comment: Resu lts checked and verified.No clot detected. Performed By: #### 5 7021-8, [id number] ####[facility] LABCLIA [id number] [place] [address] [place] Platelets Estimate (Bld) [#/Vol] Decreased Normal [facility] Comment on above: Order Comment: Speci men Type: BLOOD SPECIMENOrdering Facility: [facility] Address: [address] [place] [address] Performed By: #### 5 7021-8, [id number] ####[facility] LABCLIA [id number] [place] [address] [place] Polychromasia LM Ql (Bld) Slight Normal [facility] Comment on above: Order Comment: Speci men Type: BLOOD SPECIMENOrdering Facility: [facility] Address: [address] [place] [address] Performed By: #### 5 7021-8, [id number] ####[facility] LABCLIA [id number] [place] [address] [place] RBC (Bld) [#/Vol] 2.15 10*6/uL Low 3.90-5.20 [facility] Comment on above: Order Comment: Speci men Type: BLOOD SPECIMENOrdering Facility: [facility] Address: [address] [place] [address] Performed By: #### 5 7021-8, [id number] ####[facility] LABCLIA [id number] [place] [address] [place] RBC FRAGMENTS Few Abnormal None Seen [facility] Comment on above: Order Comment: Speci men Type: BLOOD SPECIMENOrdering Facility: [facility] Address: [address] [place] [address] Performed By: #### 5 7021-8, [id number] ####[facility] LABCLIA [id number] [place] [address] [place] RED CELL MORPH Reviewed: see result s of individual morphologies Normal [facility] Comment on above: Order Comment: Speci men Type: BLOOD SPECIMENOrdering Facility: [facility] Address: [address] [place], [place] [address] Performed By: #### 5 7021-8, [id number] ####[facility] LABCLIA [id number] [place] [address] [place] Target cells LM Ql (Bld) Few Normal [facility] Comment on above: Order Comment: Speci men Type: BLOOD SPECIMENOrdering Facility: [facility] Address: [address] [place], [place] Performed By: #### 5 7021-8, [id number] ####[facility] LABCLIA [id number] [place] [address] [place] WBC (Bld) [#/Vol] 1.52 10*3/uL Low 3.70-11.00 [facility] Comment on above: Order Comment: Speci men Type: BLOOD SPECIMENOrdering Facility: [facility] Address: [address] [place] [address] Performed By: #### 5 7021-8, [id number] ####[facility] LABCLIA [id number] [place] [address] [place] CNNURSEon 05-28-2023 CNNURSE Normal [facility] CNOVSPon 05-28-2023 CNOVSP Normal [facility] CONSULT PROGon 05-28-2023 CONSULT PROG Normal [facility] Comprehensive metabolic 2000 panelon 05-28-2023 Albumin [Mass/Vol] 4.1 g/dL Normal 3.9-4.9 [facility] Comment on above: Order Comment: Speci men Type: BLOOD SPECIMENOrdering Facility: [facility] Address: [address] [place], [place] Performed By: #### 2 4323-8 ####[facility] LABCLIA [id number] [place] [address] [place] ALP [Catalytic activity/Vol] 60 U/L Normal 34-123 [facility] Comment on above: Order Comment: Speci men Type: BLOOD SPECIMENOrdering Facility: [facility] Address: [address] [place] [address] Performed By: #### 2 4323-8 ####[facility] LABCLIA [id number] [place] [address] [place] ALT [Catalytic activity/Vol] 12 U/L Normal 7-38 [facility] Comment on above: Order Comment: Speci men Type: BLOOD SPECIMENOrdering Facility: [facility] Address: [address] [place] [address] Performed By: #### 2 4323-8 ####[facility] LABCLIA [id number] [place] [address] [place] Anion gap [Moles/Vol] 10 mmol/L Normal 9-18 [facility] Comment on above: Order Comment: Speci men Type: BLOOD SPECIMENOrdering Facility: [facility] Address: [address] [place] [address] Performed By: #### 2 4323-8 ####[facility] LABCLIA [id number] [place] [address] [place] AST [Catalytic activity/Vol] 12 U/L Low 13-35 [facility] Comment on above: Order Comment: Speci men Type: BLOOD SPECIMENOrdering Facility: [facility] Address: [address] Performed By: #### 2 4323-8 ####[facility] LABCLIA [id number] [place] [address] [place] Bilirubin [Mass/Vol] 0.4 mg/dL Normal 0.2-1.3 [facility] Comment on above: Order Comment: Speci men Type: BLOOD SPECIMENOrdering Facility: [facility] Address: [address] Performed By: #### 2 4323-8 ####[facility] LABCLIA [id number] [place] [address] [place] Calcium [Mass/Vol] 9.0 mg/dL Normal 8.5-10.2 [facility] Comment on above: Order Comment: Speci men Type: BLOOD SPECIMENOrdering Facility: [facility] Address: [address] Performed By: #### 2 4323-8 ####[facility] LABCLIA [id number] [place] [address] [place] Chloride [Moles/Vol] 104 mmol/L Normal 97-105 [facility] Comment on above: Order Comment: Speci men Type: BLOOD SPECIMENOrdering Facility: [facility] Address: [address] [place] [address] Performed By: #### 2 4323-8 ####[facility] LABCLIA [id number] [place] [address] [place] CO2 [Moles/Vol] 24 mmol/L Normal 22-30 [facility] Comment on above: Order Comment: Speci men Type: BLOOD SPECIMENOrdering Facility: [facility] Address: [address] [place] [address] Performed By: #### 2 4323-8 ####[facility] LABCLIA [id number] [address] STATES OF [facility] Creatinine [Mass/Vol] 0.84 mg/dL Normal 0.58-0.96 [facility] Comment on above: Order Comment: Speci men Type: BLOOD SPECIMENOrdering Facility: [facility] Address: [address] [place] [address] Performed By: #### 2 4323-8 ####[facility] LABIA [id number] [address] Creatinine and Glomerular filtration rate.predicted panel (S/P/Bld) 75 mL/min/1.73m??? Normal >=60 [facility] Comment on above: Order Comment: Speci men Type: BLOOD SPECIMENOrdering Facility: [facility] Address: [address] [place] [address] Result Comment: Berenice mated Glomerular Filtration Rate [...] actual GFR. Performed By: #### 2 4323-8 ####[facility] LABIA [id number] [place] [address] [place] Glucose [Mass/Vol] 130 mg/dL High 74-99 [facility] Comment on above: Order Comment: Speci men Type: BLOOD SPECIMENOrdering Facility: [facility] Address: [address] [place] [address] Result Comment: The [place] [employer] (ADA) provides guidance for cutoff [...] Standards of Medical Care in Diabetes 2016, [place] [employer]. Diabetes Care. 2016.39(Suppl 1). Performed By: #### 2 4323-8 ####[facility] LABIA [id number] [place] [address] [place] Potassium [Moles/Vol] 3.7 mmol/L Normal 3.7-5.1 [facility] Comment on above: Order Comment: Speci men Type: BLOOD SPECIMENOrdering Facility: [facility] Address: [address] [place] [address] Performed By: #### 2 4323-8 ####[facility] LABIA [id number] [place] [address] [place] Protein [Mass/Vol] 6.4 g/dL Normal 6.3-8.0 [facility] Comment on above: Order Comment: Speci men Type: BLOOD SPECIMENOrdering Facility: [facility] Address: [address] [place] [address] Performed By: #### 2 4323-8 ####[facility] LABCLIA [id number] [address] [place] Sodium [Moles/Vol] 138 mmol/L Normal 136-144 [facility] Comment on above: Order Comment: Speci men Type: BLOOD SPECIMENOrdering Facility: [facility] Address: [address] [place] [address] Performed By: #### 2 4323-8 ####[facility] LABCLIA [id number] [place] [address] [place] Urea nitrogen [Mass/Vol] 17 mg/dL Normal 7-21 [facility] Comment on above: Order Comment: Speci men Type: BLOOD SPECIMENOrdering Facility: [facility] Address: [address] [place] [address] Performed By: #### 2 4323-8 ####[facility] LABCLIA [id number] [address] [place] ED NOTEon 05-28-2023 ED NOTE HNO ID: [id number] Author: Whit Herron RN Service: Emergency Medicine Author Type: Registered Nurse Type: ED Notes Filed: 05/28/2023 8:24 PM Note Text: Report Given to Daysi OLEARY Normal [facility] ED NOTE HNO ID: [id number] Author: Alyce James RN Service: Emergency Medicine Author Type: Registered Nurse Type: ED Notes Filed: 05/28/2023 7:08 PM Note Text: Report to Whit OLEARY Normal [facility] ED NOTE Normal [facility] ED NOTE Normal [facility] ED NOTE HNO ID: [id number] Author: Sam Andre RN Service: ? Author Type: Registered Nurse Type: ED Notes Filed: 05/28/2023 3:59 PM Note Text: Bed: E12-17 Expected date: 05/28/23 Expected time: Means of arrival: Comments: Normal [facility] ED PROV NOTEon 05-28-2023 ED PROV NOTE Normal [facility] HISTORY PHYSICALon 3 HISTORY PHYSICAL Normal [facility] PATH INTER CBCDIF (LAB REFL EX ORDER-NO BILL)on 05-28-2023 Corporate Specialist review Pino (Unsp spec) [Interp] Reviewed by Vikki Griffin M.D., Ph.D Normal [facility] Comment on above: Order Comment: Speci men Type: BLOOD SPECIMENOrdering Facility: [facility] Address: [address] [place] [address] Performed By: #### 5 7021-8, [id number] ####[facility] LABCLIA [id number] [place] [address] [place] STAFF REVIEW, CBCDIF Normal [facility] Comment on above: Order Comment: Speci men Type: BLOOD SPECIMENOrdering Facility: [facility] Address: [address] [place] [address] Result Comment: Macr ocytic anemia without hypersegmented PMNsLeukopenia with absolute neutropeniaThrombocytopeniaCirculating blasts, consistent with patient's known history diagnosis of AML. Performed By: #### 5 7021-8, [id number] ####[facility] LABCLIA [id number] [place] [address] [place] Lab Reportson 05-23-2023 Lab Reports [id number]#1.00CD:127 Normal [facility] Lab Reportson 05-22-2023 Lab Reports [id number]#1.00CD:127 Normal [facility] Operative Reporton Operative Report [id number]#1.00CD:127 Normal [facility] Correspo ndenceon 05-22-2023 [facility] Correspondence [id number]#1.00CD:127 Normal [facility] Physician Referralon 023 Physician Referral [id number]#1.00CD:127 Normal [facility] Surgical Pathologyon 023 Surgical Pathology (NOTE) -- Diagnosis -- LIPOMA, LEFT ARM, EXCISION:-LIPOMA. Marnie Zaragozapta Electronically Signed Out /12/26/2022 Clinical Information Pre-op Diagnosis: LARGE LIPOMA Operative Findings: INNER LEFT ARM Operation Performed: EXCISION tm Source of Specimen A: LIPOMA LARGE LEFT ARM Gross Description PRINCESS WILKES, LIPOMA LARGE LEFT ARM 5.8 x 4.5 x 3.8 cm circumscribed portion of fatty tissue with a few small areas of possible hemorrhage. There is no necrosis. Apparatus Operator sections 1cs. tm Microscopic Description Microscopic examination performed. SURGICAL PATHOLOGY CONSULTATION Patient Name: PRINCESS WILKES [facility] Rec: [id number] Path Number: [id number] [facility] ANATOMIC PATHOLOGY [address] [place] [address] [facility] Comment on above: Performed By: #### P PPVS #### [email or web address] [address] Retail Loss Prevention Officer: Nghia Casas MD VL Extremity Venous Duplex L [facility] 06-14-2021 VL Extremity Venous Duplex Lower Left Preliminary Technologist Report Right comparison appeared normal Left lower extremity: There appeared to be no evidence of acute or chronic DVT, all vessels appeared compressible and patent. Results called to Deanna in [place] office at 4:00pm Freight Agent: Beau Rocha, JANETH Radiologist Report CLINICAL HISTORY: Left lower extremity [...] Electronically Signed in Other Vendor System) Normal [facility] Vital Signs Date Time Vital Sign Value Performing Clinician Facility 06-25-2023 11:29-0400 Body temperature 97.7 [degF] Mike Hughes MD Work Phone: [facility] 06-25-2023 11:29-0400 Body weight 116.1 kg Mike Hughes MD Work Phone: [facility] 06-25-2023 11:29-0400 Diastolic blood pressure 54 mm[Hg] Mike Hughes MD Work Phone: [facility] 06-25-2023 11:29-0400 Heart rate 77 /min Mike Hughes MD Work Phone: [facility] 06-25-2023 11:29-0400 Respiratory rate 18 /min Mike Hughes MD Work Phone: [facility] 06-25-2023 11:29-0400 Systolic blood pressure 134 mm[Hg] Mike Hughes MD Work Phone: [facility] 06-25-2023 10:00-0400 Diastolic blood pressure 80 mm[Hg] Lj Liz MD Work Phone: [facility] 06-25-2023 10:00-0400 Heart rate 71 /min Lj Liz MD Work Phone: [facility] 06-25-2023 10:00-0400 Respiratory rate 16 /min Lj Liz MD Work Phone: [facility] 06-25-2023 10:00-0400 SaO2% (BldA) [Mass fraction] 97 % Lj Liz MD Work Phone: [facility] 06-25-2023 10:00-0400 Systolic blood pressure 153 mm[Hg] Lj Liz MD Work Phone: [facility] 06-25-2023 06:40-0400 Body temperature 97.7 [degF] Lj Liz MD Work Phone: [facility] 12-22-2022 15:00-0400 Diastolic blood pressure 88 mm[Hg] Martha Nazemi DO Work Phone: [facility] 12-22-2022 15:00-0400 Heart rate 62 /min Martha Nazemi DO Work Phone: [facility] 12-22-2022 15:00-0400 Respiratory rate 16 /min Martha Nazemi DO Work Phone: [facility] 12-22-2022 15:00-0400 SaO2% (BldA) [Mass fraction] 96 % Martha Nazemi DO Work Phone: [facility] 12-22-2022 15:00-0400 Systolic blood pressure 129 mm[Hg] Martha Nazemi DO Work Phone: [facility] 12-22-2022 14:32-0400 Body temperature 96.91 [degF] Martha Nazemi DO Work Phone: [facility] 12-22-2022 11:47-0400 Body height 166.4 cm Martha Nazemi DO Work Phone: [facility] 12-22-2022 11:47-0400 Body mass index (BMI) [Ratio] 43.43 kg/m2 Martha Nazemi DO Work Phone: better. [facility] 12-22-2022 11:47-0400 Body weight 120.2 kg Martha Malik DO Work Phone: [facility] Encounters Encounter Date Encounter Type Care Provider Facility Start: 09-20-2023 ambulatory MIKE HUGHES Facil ity:[facility] Start: 09-07-2023 End: 09-08-2023 ambulatory MIKE HUGHES Facility:[facility] Start: 09-06-2023 End: 09-06-2023 ambulatory MELISSA PIERCE Not Available Start: 08-31-2023 End: 09-01-2023 ambulatory MIKE HUGHES Facility:[facility] Start: 08-30-2023 End: 08-30-2023 ambulatory MELISSA PIERCE Facility:[facility] Start: 08-30-2023 End: 08-30-2023 ambulatory CHARLENE MARTINEZ Facility:[facility] Start: 08-15-2023 Social Work Britany Light Work Phone: Hematology/Oncology Start: 08-13-2023 Telephone encounter Georgina armas RN Work Phone: Hematology/Oncology Comment on above: Appointment Start: 08-09-2023 Refill Mike valencia MD Work Phone: Hematology/Oncology Comment on above: Refill Request Consent Presentation ([phone] [id number]) Start: 08-08-2023 Telephone encounter Georgina armas RN Work Phone: Hematology/Oncology Comment on above: Patient Education (T ransplant) (BMT Planning) 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) Start: 08-07-2023 Refill Mike valencia MD Work Phone: Hematology/Oncology Comment on above: Refill Request Transplant Info Biopsy Request Start: 07-30-2023 End: 07-30-2023 ambulatory MIKE HUGHES Facility:[facility] Start: 07-30-2023 End: 07-30-2023 Follow-up encounter Mike Hughes MD Work Phone: Hematology/Oncology Comment on above: 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); Immunocompromised (HCC); Hospital discharge follow-up; Pancytopenia (HCC); Colitis Start: 07-30-2023 End: 07-30-2023 Telemedicine consultation with patient Mike Hughes MD Work Phone: [facility] Start: 07-18-2023 End: 07-18-2023 Evaluation and management of inpatient MELISSA PIERCE Facility:[facility] Start: 07-13-2023 End: 07-18-2023 Evaluation and management of inpatient ABDI CONTEH Facility:[facility] Start: 07-06-2023 Telephone encounter Aurelia valerio RN Work Phone: Hematology/Oncology Start: 07-02-2023 End: 07-02-2023 ambulatory MIKE HUGHES Facility:[facility] Start: 07-02-2023 End: 07-02-2023 ambulatory Mike Hughes MD Work Phone: Hematology/Oncology Comment on above: 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); Immunocompromised (HCC); Pancytopenia (HCC) Start: 07-02-2023 End: 07-02-2023 Telemedicine consultation with patient Mike Hughes MD Work Phone: [facility] Start: 06-27-2023 Orders Only Mike valencia MD Work Phone: Hematology/Oncology Comment on above: 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) Start: 06-25-2023 End: 06-25-2023 Patient encounter procedure Mike Hughes MD Work Phone: [facility] Start: 06-25-2023 End: 06-25-2023 ambulatory [...] Start: 06-14-2023 End: 06-14-2023 ambulatory MIKE HUGHES Facility:[facility] Start: 06-14-2023 Telephone encounter Mary ramachandran [facility] Work Phone: [facility] Comment on above: Biopsy Request Start: 05-31-2023 Telephone encounter Chika Lagos Hem atology/Oncology Start: 05-28-2023 End: 06-07-2023 Evaluation and management of inpatient MELISSA PIERCE Facility:[facility] Start: 05-28-2023 End: 05-29-2023 ambulatory Brianna Pham MD Work Phone: Hematology/Oncology Comment on above: 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); Infection due to Port-A-Cath, initial encounter Start: 05-28-2023 End: 05-28-2023 Patient encounter procedure Brianna Pham MD Work Phone: [facility] Start: 05-28-2023 End: 05-28-2023 Nursing evaluation of patient and report Aurelia Hines RN Work Phone: Hematology/Oncology Comment on above: 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) Start: 05-22-2023 ambulatory Facility:[facility] Start: 05-18-2023 ambulatory Facility:[facility] Start: 12-22-2022 End: 12-22-20[facility]: 12-22-2022 End: 12-22-2022 Subsequent hospital visit by physician Martha Malik DO Work Phone: [facility] Comment on above: Acute postoperative pain (Primary Dx); Lipoma of left forearm Start: 08-11-2021 End: 08-11-[address] MELISSA PIERCE Facility: Start: 06-14-2021 End: 06-15-2021 ambulatory MELISSA PIERCE Facility:[facility] Procedures Date Procedure Procedure Detail Performing Clinician Start: 07-13-2023 Antibody screen MIKE HUGHES Comment on above: Order Comment: Speci men Type: BLOOD SPECIMENOrdering Facility: [facility] Address: [address] [place] [address] Performed By: #### T SCR ####CC MAIN BLOOD BANKCLIA [id number] [address] Start: 06-25-2023 FLOW CYTOMETRY FOR LEUKEMIA/LYMPHOMA (FCLL) PERFORMABLE Mike Hughes MD Work Phone: Start: 06-06-2023 Antibody screen MIKE HUGHES Comment on above: Order Comment: Speci men Type: BLOOD SPECIMENOrdering Facility: [facility] Address: [address] [place] [address] Performed By: #### T SCR ####CC MAIN BLOOD BANKCLIA [id number] [address] Start: 06-03-2023 Antibody screen MIKE HUGHES Comment on above: Order Comment: Speci men Type: BLOOD SPECIMENOrdering Facility: [facility] Address: [address] [place] [address] Performed By: #### T SCR, [id number], [id number] ####CC MAIN BLOOD BANKCLIA [id number] [address] MARY#### [id number] ####[facility] LABCLIA [id number] [address] Start: 05-31-2023 Antibody screen MIKE HUGHES Comment on above: Order Comment: Speci men Type: BLOOD SPECIMENOrdering Facility: [facility] Address: [address] Performed By: #### T SCR ####CC MAIN BLOOD BANKCLIA [id number] [address] Start: 05-29-2023 Antibody screen ORALIAMASOUD HUGHES Comment on above: Order Comment: Speci men Type: BLOOD SPECIMENOrdering Facility: [facility] Address: [address] [address] Performed By: #### T SCR ####CC MAIN BLOOD BANKIA [id number] [address] Start: 05-02-2023 Lipid 1996 panel - S efra or Plasma Aurelia Hines RN Work Phone: Plan of Treatment Date Care Activity Detail Author Start: 05-22-2033 Urine microalbumin profile DTaP,Tdap,Td Vaccine (2 - Td or Tdap) [facility] Start: 05-02-2028 Lipid 1996 panel - S efra or Plasma Lipid Screening [facility] Start: 05-02-2028 Lipid panel Lipid Screening [facility] Start: 07-18-2026 [facility] Start: 06-07-2026 [facility] Start: 05-31-2026 Diabetes Screening Diabetes [facility] Start: 05-28-2026 Diabetes Screening Diabetes Screenin g [facility] Start: 11-22-2023 Mammography Mammogram Screening [facility] Start: 11-22-2023 Screening for malign ant neoplasm of breast Mammogram Screening [facility] Start: 08-28-2023 End: 11-27-2023 ACUTE LEUKEMIA NGS PANEL, BONE MARROW ACUTE LEUKEMIA NGS PANEL, BONE MARROW Lab Routine 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) Expected: 08/28/2023, Expires: 11/27/2023 [facility] Work Phone: Comment on above: Expected: 08/28/2023 , Expires: 11/27/2023 Start: 08-28-2023 End: 11-27-2023 BONE MARROW ANALYSIS BONE MARROW ANALYSIS Lab Routine 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) Expected: 08/28/2023, Expires: 11/27/2023 [facility] Work Phone: Comment on above: Expected: 08/28/2023 , Expires: 11/27/2023 Start: 08-28-2023 End: 11-27-2023 CBC W Auto Differential panel - Blood CBC + DIFF Lab Routine 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) Expected: 08/28/2023, Expires: 11/27/2023 [facility] Work Phone: Comment on above: Expected: 08/28/2023 , Expires: 11/27/2023 Start: 04-03-2023 Influenza vaccination Flu vacc ine (Season Ended) [facility] Start: 01-03-2023 End: 01-03-2023 Patient encounter procedure 01/03/2023 Office Visit General Surgery Martha Malik I, [address] [place] [address] [place] [id number] [facility] Start: 12-22-2022 End: 12-22-2022 Exc b9 lesion mrgn xcp sk tg t/a/l 0.5 cm/< ARM LESION BIOPSY EXCISION Lipoma of left forearm 12/22/2022 1:52 PM EDT [facility] Start: 11-17-2022 Annual Wellness Visi t (AWV) Annual Wellness Visit (AWV) [facility] Start: 09-03-2022 Advance Directive Discussion Advance Directive Discussion [facility] Start: 01-13-2021 COVID-19 Vaccine (3 - Booster for Pfizer series) COVID-19 Vaccine (3 - Booster for Pfizer series) [facility] Start: 12-16-2020 Covid-19 Vaccine (3 - Pfizer risk series) Covid-19 Vaccine (3 - Pfizer risk series) [facility] Start: 2018 Bone Density Screening Bone Density Screening [facility] Start: 2018 Screening for osteoporosis Bone Density Screening [facility] Start: 05-22-2016 Shingles vaccine (2 of 3) Shingles vaccine (2 of 3) [facility] Start: 05-22-2016 Shingrix Vaccine (1 of 2) Shingrix Vaccine (1 of 2) [facility] Start: 2013 RSV Vaccine (1 - 1-d ose 60+ series) RSV Vaccine (1 - 1-dose 60+ series) [facility] Start: 2008 Screening for osteoporosis DEXA (modify frequency per FRAX score) [facility] Start: 2003 Screening for malign ant neoplasm of breast Breast cancer screen [facility] Start: 1998 Cologuard (FIT-DNA) Cologuard (FIT-D NA) [facility] Start: 1998 Colonoscopy Colonoscopy [facility] Start: 1998 Colorectal Cancer Screening Colorectal Cancer Screening [facility] Start: [address] COLONOGRAPHY [facility] Start: 1998 Fecal Occult Blood Fecal Occult Bloo d [facility] Start: 1998 Screening for malign ant neoplasm of colon [facility] Start: 1998 SIGMOIDOSCOPY SIGMOIDOSCOPY [facility] Start: 1993 Lipid panel Lipids [facility] Start: 1988 Diabetes screen Diabetes screen [facility] Start: 1972 DTaP/Tdap/Td vaccine (1 - Tdap) DTaP/Tdap/Td vaccine (1 - Tdap) [facility] Start: 1971 Hepatitis C screening Hepatitis C sc reen [facility] Start: 1965 Depression Screen Depression Screen [facility] AML MRD BY FC AML MRD BY FC La b Routine 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) 06/25/2023 8:27 AM [facility] Work Phone: BONE MARROW ANALYSIS BONE MARROW ANALYSIS Lab Routine 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) 06/25/2023 8:55 AM [facility] Work Phone: BONE MARROW CHROMOSO ME ANAL BONE MARROW CHROMOSOME ANAL Lab Routine 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) 06/25/2023 8:27 AM [facility] Work Phone: Diagnostic bone jaylon ow biopsies IMAGING GUIDED BIOPSY BONE MARROW (HEMATOLOGY) Radiology Routine 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) Ordered: 08/08/2023 [facility] Work Phone: Comment on above: Ordered: 08/08/2023 DNA EXTRACTION BONE MARROW (BUFFY COAT) DNA EXTRACTION BONE MARROW (BUFFY COAT) Lab Routine 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) 06/25/2023 8:27 AM EDT [facility] Work Phone: FLT3 ITD HN BONE MARROW FLT3 ITD HN BONE MARROW Lab Routine 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) 06/25/2023 8:27 AM T [facility] Work Phone: MYELOID NGS PANEL ZEENAT NE MARROW MYELOID NGS PANEL BONE MARROW Lab Routine 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) 06/25/2023 8:27 AM T [facility] Work Phone: Surgical Pathology Surgical Path ology Lab Routine Lipoma of left forearm Release Upon Ordering for 1 Occurrences starting 12/22/2022 [facility] Work Phone: Comment on above: Release Upon Orderin g for 1 Occurrences starting 12/22/2022 [facility] MC ANGIO HB6 [facility] Immunizations Immunization Date Immunization Notes Care Provider Fa [facility] 05-22-2023 influenza (HD-IIV4) vaccine, age 65+ yr, high dose, quadrivalent, PF (FLUZONE HIGH-DOSE) Aurelia Hines RN Work Phone: [facility] 05-22-2023 tetanus toxoid, redu armaan diphtheria toxoid, and acellular pertussis vaccine, adsorbed Aurelia Hines RN Work Phone: [facility] 08-04-2019 pneumococcal polysaccharide vaccine, 23 valent Aurelia Hines RN Work Phone: [facility] 06-17-2018 influenza, injectabl e, quadrivalent, preservative free Aurelia Hines RN Work Phone: [facility] 06-17-2018 pneumococcal conjuga te vaccine, 13 valent Aurelia Hines RN Work Phone: [facility] 06-03-2017 influenza, injectabl e, quadrivalent, preservative free Aurelia Hines RN Work Phone: [facility] 07-17-2016 influenza, injectabl e, quadrivalent, preservative free Aurelia Hines RN Work Phone: [facility] 06-03-2016 seasonal influenza, intradermal, preservative free Aurelia Hines RN Work Phone: [facility] 03-27-2016 zoster vaccine, live Aurelia moser RN Work Phone: [facility] Payers Date Payer Category Payer Private Health Insurance [employer] A ETNA MEDICARE SUPPLEMENT [id number] 2023-Present [phone] [address] [address] [place] [address] Indemnity [id number] 2023 Private Health Insurance CLI [id number] 2021 Unknown 2018 Medicare 1961 Medicare [id number] 1961 Unknown [id number] 1953 Unknown [id number] 1955 Unknown [id number] 1953 Unknown [id number] 1955 Unknown [id number] Social History Date Type Detail Facility Start: 12-07-2022 Tobacco smoking stat us [facility] Tobacco smoking consumption unknown [facility] Start: 09-04-2013 End: 12-07-2022 Tobacco use and exposure Smokeless tobacco non-user [employer] Phone: Start: 12-22-2022 End: 07-16-2023 Alcohol intake Current drinker of alcohol (finding) [facility] Phone: Start: 12-22-2022 End: 05-28-2023 Alcohol intake [facility] Start: 1955 Sex Assigned At Not on file [facility] Phone: Start: 12-12-2022 End: 12-22-2022 Exposure to SARS-CoV-2 (event) Not sure M/A-COM Start: 09-04-2013 [facility] Start: 05-28-2023 End: 06-11-2023 Tobacco use panel [facility] Adult Depression Screening Assessment 0 [facility] Start: 09-04-2013 Alcohol Comment social [facility] Start: 1955 Sex Assigned At Female [facility] Start: 05-22-2023 Gender identity Identifies as female gender (finding) [facility] Clinical Notes 09-11-2013 to 09-20-2023 Britany Lozada LSW - 08/15/2023 1:38 PM ESTTelephone Encounter - Amrita Pelaez - 08/14/2023 8:56 AM ESTTelephone Encounter - Robinson Benito MD - 08/08/2023 5:09 PM EST Note Date & Type Note Facility 09-20-2023 Note [facility] 09-13-2023 Note [facility] 09-07-2023 Note [facility] 08-31-2023 Note [facility] 08-30-2023 Note [facility] 08-30-2023 Note [facility] 08-15-2023 Note [facility] 08-15-2023 History of Present illness Narrative SOCIAL [...] and . Both stated they stayed at [facility] in the past and needed to stay for the visit in August (message sent to hotel front desk agent regarding same). stated a referral has been sent to [facility] for the September stay. Mickie will meet with the BMT health social work professor at the August visit. Therefore, message sent to her regarding above. Provided support and encouragement. FREDRICK Morgan documented in this encounter [facility] 08-14-2023 Miscellaneous Notes Spoke to pt and [...] this procedure: low risk. Reference from [facility] Project Financial Analyst: https://[facility].policytech.com/dotNet/ documents/?gmhjm=[email or web address] STAFF SIGNATURE: Robinson Benito MD DATE: August [...] CONTACT INFORMATION: Best way to reach patient [phone]. SCHEDULING: Date: 08/28/23 (Specific requests must be [...] random biopsies do not need imaging.) IMAGING: [facility] (If the imaging was obtained outside the [facility] system, PLEASE upload for review prior to approval.) Note to all persons requesting biopsies: All biopsy requests will be scheduled as quickly as possible, based on the clinical urgency, availability of appointment times, the need to hold anti-thrombolytic therapy (aspirin and other blood thinners) and the patient s schedule, including the need for an available reefer truck driver. If a percutaneous biopsy or drainage is not felt to be safe or an alternative method for establishing a diagnosis is possible, this will be discussed directly with the requesting physician. documented in this encounter [facility] 08-13-2023 Miscellaneous Notes Princess's , De, called to clarify lab needed the week of 09/04/2023. He is aware the lab will be scheduled on the same day Princess see's Dr. Pham. Also informed De that per BMT TESTING COORDINATOR, Princess's bone density done in October 2021 will be her baseline prior to BMT. De confirmed Princess has received and been reading through the [facility] BMT study consent, and they do not have questions at this time. He verbalized understanding of all the above and is aware to call with questions or concerns. Georgina Kumar RN documented in this encounter [facility] 08-09-2023 Miscellaneous Notes Pt's copay to get posaconazole through [facility] is $4k. Previously it was sent through [facility], will change script to [facility] instead. Estephanie Parada RN documented in this encounter [facility] 08-08-2023 Miscellaneous Notes [facility] INITIAL TELEPHONE CONTACT Spoke with Princess Wilkes and her , De, on the telephone on 08/08/2023 at 10:10. Princess Wilkes informed that hard copy of education binder will be given to patient at pre-transplant evaluation and link to education binder provided to patient via [email or web address] secure patient message. Princess Wilkes is currently [...] reside within one hour driving distance from [facility] for at least 100 days post-transplant. Her De will be her primary caregiver and they might stay at [facility] post BMT. Female fertile? No Ovarian [...] questions answered and patient verbalized understanding. Georgina Kosar, RN documented in this encounter [facility] 07-30-2023 Note [facility] 07-30-2023 History of Present illness Narrative Images from the original note were not included. This is a virtual visit using [employer] Zoom Video Visit. It required patient-provider interaction for the medical decision making as documented below. I have communicated my name and active licensure. The patient's identity and physical location were verified at the time of this visit. Either the patient or their legal rental sales representative has been informed of the risks and benefits of -- and alternatives to -- treatment through a remote evaluation and consents to proceed with the evaluation remotely. [facility] Department of Hematology and Medical Oncology Leukemia Program Princess Wilkes ID: [id number] 07/30/2023 PRIMARY CARE PHYSICIAN: Melissa Pierce MD [...] Complications: - Aza/Milton was initiated inpatient at [facility] main (admitted due to concern for port infection) - Diverticulitis - hospitalized 06/18/23 - treated with abx - discharged on 06/20/23 - platelet transfusions 06/13/23 and 06/26/23 - After C2 was admitted again for fever, abdominal infection, transferred to [facility] And was treated with Zosyn, needed PRBCs and platelets when hospitalized Interval history: Today Princess is C2D29 of Aza + Milton (7 days). She was scheduled to start C3 today however her ANC last week was 0.[address] Macdonald and I discussed delaying her next cycle by a week. After C2 she had another bout of fever and was admitted (transferred to [facility]) and treated with Zosyn. 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 Oncotype Dx 13 - so no chemo was offered. She then completed 5 years of endocrine therapy from 01/2014 - 01/2019 - letrozole followed by tamoxifen (x1 year). She presented to the ER on 05/03/23 at [facility] with generalized weakness, dizziness, exertional dyspnea [...] 06/12/23 CBC - 0.9 0.09 9.3 10 [facility] [phone] Past MHx: PAST MEDICAL HISTORY Diagnosis Date [...] with VKA drugs, such as warfarin, the [employer] 2012 Guideline recommends [...] 2.5 to 3.5 (target INR of 3). Guyatt GH, et al. Chest 2012, 141:7S-47S Margo RA, et al. JACC 2017, 70: 252-289 BONE MARROW ANALYSIS: [id number] Order: [id number] Collected 06/25/2023 8:55 AM Status: Final result [...] this case were also reviewed by Dr.James Heranndez from the hematopathology section at the [facility], and he concurs with the above rendered final diagnosis and interpretation. Laboratory Developed Test (LDT) Disclaimer: Performance characteristics of immunohistochemical, immunofluorescent and chromogenic in-situ hybridization tests have been determined by the performing laboratory within [facility] s [facility] Pathology and Laboratory Medicine [place] ([facility], [facility], [facility], [facility], [facility], [facility], or [facility]) in a manner consistent with CLIA requirements. [...] hemodilute touch imprint may not be entirely rental sales representative of the true marrow cellularity. Result [...] cassette. Performing Lab Diagnostic interpretation performed at [facility], [address] [place], [place] [address] [facility]# [id number] Director Inpatient Headache Program: Boris Wood M.D. Assessment and Plan: Ms. Princess Wilkes is a 67 year old female with prior Stage 1 ([id number]) L breast invasive and DCIS, 1.5 cm, grade 2, ER/MO positive and HER2 negative s/p L lumpectomy [...] Hb 7.4, plt 13, ANC 0.18) Labs 11/21 - WBC 0.6, ANC 0.1, Plt 69 [...] status # Prior Breast CA Stage 1 ([id number]) L breast invasive and DCIS, 1.5 cm, grade 2, ER/MO positive and HER2 negative s/p L lumpectomy [...] which included preparing to see the patient, [id number] patient care, completing clinical documentation, obtaining and/or reviewing separately obtained history, and performing a medically appropriate examination. Mike Hughes MD Hematology and Medical Oncology, Leukemia Division 06/25/23 cc: Mike Hughes [id number] [phone] Melissa Pierce MD [phone] [facility] [id number] documented in this encounter [facility] 07-18-2023 Note [facility] 07-17-2023 Note [facility] 07-16-2023 Note [facility] 07-16-2023 Note [facility] 07-15-2023 Note [facility] 07-14-2023 Note [facility] 07-14-2023 History of Past i llness Narrative [...] Tylenol and d/c'd home > seen at [facility] on 05/28 by heme/onc and BMT who recommended admission for concerns for port infection > blood cxs x2 obtained -- NGTD > no fevers STATE AUDITOR, 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; 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 > ID [...] of this encounter (statuses as of 07/30/2023) [facility] History of Past illness Narrative* Problem Noted [...] Tylenol and d/c'd home > seen at [facility] on 05/28 by heme/onc and BMT who recommended admission for concerns for port infection > blood cxs x2 obtained -- NGTD > no fevers STATE AUDITOR, 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; 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 > ID [...] of this encounter (statuses as of 08/08/2023) [facility] History of Past illness Narrative* Problem Noted [...] Tylenol and d/c'd home > seen at [facility] on 05/28 by heme/onc and BMT who recommended admission for concerns for port infection > blood cxs x2 obtained -- NGTD > no fevers STATE AUDITOR, 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; 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 > ID [...] of this encounter (statuses as of 08/08/2023) [facility]11-11-2023 History of Past illness Narrative* Problem Noted [...] Tylenol and d/c'd home > seen at [facility] on 05/28 by heme/onc and BMT who recommended admission for concerns for port infection > blood cxs x2 obtained -- NGTD > no fevers STATE AUDITOR, 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; 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 > ID [...] of this encounter (statuses as of 08/08/2023) [facility] History of Past illness Narrative* Problem Noted [...] Tylenol and d/c'd home > seen at [facility] on 05/28 by heme/onc and BMT who recommended admission for concerns for port infection > blood cxs x2 obtained -- NGTD > no fevers STATE AUDITOR, 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; 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 > ID [...] of this encounter (statuses as of 08/09/2023) [facility] History of Past illness Narrative* Problem Noted [...] Tylenol and d/c'd home > seen at [facility] on 05/28 by heme/onc and BMT who recommended admission for concerns for port infection > blood cxs x2 obtained -- NGTD > no fevers STATE AUDITOR, 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; 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 > ID [...] of this encounter (statuses as of 08/09/2023) [facility] History of Past illness Narrative* Problem Noted [...] Tylenol and d/c'd home > seen at [facility] on 05/28 by heme/onc and BMT who recommended admission for concerns for port infection > blood cxs x2 obtained -- NGTD > no fevers STATE AUDITOR, 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; 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 > ID [...] of this encounter (statuses as of 08/10/2023) [facility] History of Past illness Narrative* Problem Noted [...] Tylenol and d/c'd home > seen at [facility] on 05/28 by heme/onc and BMT who recommended admission for concerns for port infection > blood cxs x2 obtained -- NGTD > no fevers STATE AUDITOR, 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; 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 > ID [...] of this encounter (statuses as of 08/10/2023) [facility] History of Past illness Narrative* Problem Noted [...] Tylenol and d/c'd home > seen at [facility] on 05/28 by heme/onc and BMT who recommended admission for concerns for port infection > blood cxs x2 obtained -- NGTD > no fevers STATE AUDITOR, 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; 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 > ID [...] of this encounter (statuses as of 08/13/2023) [facility] History of Past illness Narrative* Problem Noted [...] Tylenol and d/c'd home > seen at [facility] on 05/28 by heme/onc and BMT who recommended admission for concerns for port infection > blood cxs x2 obtained -- NGTD > no fevers STATE AUDITOR, 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; 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 > ID [...] of this encounter (statuses as of 08/14/2023) [facility] History of Past illness Narrative* Problem Noted [...] Tylenol and d/c'd home > seen at [facility] on 05/28 by heme/onc and BMT who recommended admission for concerns for port infection > blood cxs x2 obtained -- NGTD > no fevers STATE AUDITOR, 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; 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 > ID [...] of this encounter (statuses as of 08/16/2023) [facility] NoteSelect [facility] [place]11-03-2023 Miscellaneous Notes* Telephone Encounter - Aurelia Hines RN - 07/06/2023 12:17 PM EDT HLA match notification: Ms. Wilkes was notified that a suitably matched donor has been identified. Donor is sibling name, Pierre Ferrari who is an 08/14 DNA HLA match. Patient verbalized understandingof above. Brianna Pham MD has been notified via electronic chart documentation. Ms. Wlikes is aware that if a match meeting has been requested with the BMT physician they will receive a call with the appointment information. Order Date: 06/26/2023 Physician of Record: Efrem Sheth Reported Date: 06/27/2023 8:55:33 AM Test Name: Bone Marrow with Donor Patient Name: PRINCESS WILKES Donor Name: PIERRE FERRARI Donor ID: [id number] Relationship: Sibling Report Status: Final Patient HLA Specimen Date: 05/29/2023 DNA ID: [id number] Patient HLA Typing: HLA-A* 02:01 , 68:02 HLA-B* 14:02 , 15:01 HLA-C* 03:04 , 08:02 HLA-DRB1* 01:01 , 13:03 HLA-DRB3* 01:01 , - HLA-DRB4* - , - HLA-DRB5* - , - HLA-DQA1* 01:01 , 05:05 HLA-DQB1* 03:01 , 05:01 HLA-DPA1* 01:03 , - HLA-DPB1* 02:/416:01 , 04:02/105:01 COMMENTS: none Donor HLA Specimen Date: 06/19/2023 DNA ID: [id number] Donor HLA Typing: HLA-A* 02:01 , 68:02 [...] 06/27/2023 Aurelia Hines RN documented in this encounterCinc[facility]23 NoteSelect [facility] [place]10-30-2023 History of Present illness Narrative* Mike Hughes MD - 07/02/2023 8:49 AM EDT Images from the original note were not included. This is a virtual visit using [employer] Video Visit. It required patient- provider interaction for the medical decision making as documented below. I have communicated my name and active licensure. The patient's identity and physical location wereverified at the time of this visit. Either the patient or their legal rental sales representative has been informed of the risks and benefits of -- and alternatives to -- treatment through a remote evaluation andconsents to proceed with the evaluation remotely. 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 Oncotype Dx 13 - so no chemo was offered. She then completed 5 years of endocrine therapy from 01/2014 - 01/2019 - letrozole followed by tamoxifen (x1 year). She presented to the ER on 05/03/23 at [facility] with generalized weakness, dizziness, exertional dyspnea [...] - 0.9 0.09 9.3 10 Darlyn - [phone] Past MHx: PAST MEDICAL HISTORY Diagnosis Date [...] with VKA drugs, such as warfarin, the [employer] 2012 Guideline recommends [...] Chest 2012, 141:7S-47S Margo RA, et al. [employer] 2017, 70: 252-289 BONE MARROW ANALYSIS: [id number] Order: [id number] Collected 06/25/2023 8:55 AM Status: Final result [...] Hernandez from the hematopathology section at the [facility], and he concurs with the above rendered final diagnosis and interpretation. Laboratory Developed Test (LDT) Disclaimer: Performance characteristics of immunohistochemical, immunofluorescent and chromogenic in-situ hybridization tests have been determined by the performing laboratory within [facility] s [facility]ology and Laboratory Medicine [place] ([facility], [facility], [facility], [facility], [facility], [facility], or [facility]) in a manner consistent with CLIA requirements. [...] hemodilute touch imprint may not be entirely rental sales representative of the true marrow cellularity. Result [...] cassette. Performing Lab Diagnostic interpretation performed at [facility], [address] [place] [id number] CLIA# [id number] Director Inpatient Headache Program: Boris Wood M.D. Assessment and Plan: Ms. 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 Mike Hughes MD Hematology and Medical Oncology, Leukemia Division 06/25/23 cc: Mike Hughes [address] [facility] [address] Melissa Pierce MD [address] [place] [address] documented in this encounterCinc[facility]10-23-2023 NoteSelect [facility] Specialty [facility] - [place]10-23-2023 Nurse Note* Charlene Ruiz LPN - 06/25/2023 11:28 AM EDT Additional intake questions: Has the patient had fever, nausea, vomiting, diarrhea, constipation, fatigue for > 1 week? Yes, vomiting Does the patient have a decreased appetite? No Does patient want to see a Catering Barista? No (yes to any of above refer patient to schedulers for dietitian appointment) ) Does patient have any new or increased numbness or tingling of extremities? No Is patient interested in fertility information? NA Does patient need any prescription refills? No Does patient have an advanced directive in place? Yes, no copy found in [facility] Patient referred to Social Work and Patient referred to [facility] documented in this encounterCinc[facility]10-[facility]-2023 NoteSelect [facility] Specialty [facility] - [place]10-23-2023 Surgical operation note* Brief Op Note - Robinson Benito MD - 06/25/2023 9:06 AM EDT BRIEF OPERATIVE / PROCEDURE NOTE LOG ID: [id number] SURGERY/PROCEDURE DATE: 06/25/2023 INCISION/PROCEDURE START TIME: 8:40 AM INCISION CLOSE/PROCEDURE END TIME: 8:59 AM SURGEON(S)/PROCEDURALIST(S) AND WARDROBE ATTENDANT(S): Surgeon(s) and Role: * Lj Liz MD [...] 2023 TIME: 9:06 AM documented in this encounterCinc[facility]10-23-2023 History of Present illness Narrative* Marry Modi [...] 25, 2023 8:33 AM documented in this encounterCinc[facility]10-23-2023 Miscellaneous Notes* Patient Education - Carmen Agudelo [...] REFERRAL (RECOMMENDATION): None Electronically Signed By: Carmen Cosme, RN In Department: HOSP MAIN [id number] documented in this encounterCinc[facility]10-[facility]-2023 History and physical note * Robinson Benito [...] TIME: 8:01 AM PAGER: documented in this encounterCinc[facility]10-[facility] History of Present illness Narrative* Mike Hughes MD - 06/25/2023 12:00 AM EDT Images from the original note were not included. 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 Macdonald. History Of Present Illness: Ms. Princess Wilkes is a 67 year old female with prior Stage 1 (pX8oQ3K6) L breast invasive and DCIS,1.5 cm, grade 2, 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 Oncotype Dx 13 - so no chemo was offered. She then completed 5 years of endocrine therapy from 01/2014 - 01/2019 - letrozole followed by tamoxifen (x1 year). She presented to the ER on 05/03/23 at [facility] with generalized weakness, dizziness, exertional dyspnea [...] - 0.9 0.09 9.3 10 Darlyn - [phone] Past MHx: PAST MEDICAL HISTORY Diagnosis Date [...] with VKA drugs, such as warfarin, the [employer] 2012 Guideline recommends [...] CASTELLANOS, et al. Chest 2012, 141:7S-47S Margo HORN, et al. [employer] 2017, 70: 252-289 Assessment and Plan: Ms. Princess Wilkes is a 67 year old female with prior Stage 1 (dA9uU9J4) L breast invasive and DCIS,1.5 cm, grade 2, ER/MO positive and HER2 negative s/p L lumpectomy [...] needed # Prior Breast CA Stage 1 (rX9fV8J6) L breast invasive and DCIS, 1.5 cm, grade 2, ER/MO positive and HER2 negative s/p L lumpectomy [...] which included preparing to see the patient, [id number] patient care, completing clinical documentation, obtaining and/or reviewing separately obtained history, and performing a medically appropriate examination. Mike Hughes MD Hematology and Medical Oncology, Leukemia Division 06/25/23 cc: Mike Hughes [address] [facility] [address] Melissa Pierce MD [address] [place] [address] documented in this encounterCinc[facility]10-20-2023 Miscellaneous Notes* Telephone Encounter - Agustina Quevedo [...] SW for her assistance. documented in this encounterCinc[facility]10-18-2023 Nurse Note* Edel Hobbs LPN - 06/20/2023 11:11 AM EDT Pre- e instructions: Contacted patient and confirmed appt. for bone marrow biopsy scheduled on 06/25/23, at [facility]. Diet: Do not eat solid food after [...] be signed. Arrival at 6:30am to desk B-1 ([facility]) and check in for your procedure. Enamel Applier/Transportation: How will you be arriving for your procedure? Private car. If you will be arriving at [facility] via ambulance or public transportation, please call to discuss. You will need a responsible adult to accompany you to and from the procedure. Your reefer truck driver is required to stay with you until you are taken into the Procedure room. Recovery expectations: You can expect to be at the hospital for the majority of the day. Please do not schedule any other appointments the day of your procedure. Written instructions provided to patient via [email or web address] If you have any questions please call [phone] documented in this encounterCincinnati [facility]10-17-2023 Miscellaneous Notes* Telephone Encounter - Amrita Pelaez [...] for this procedure: low risk. Reference from [employer]: [email or web address] STAFF SIGNATURE: Gurmeet Webb MD DATE: June 15, 2023 TIME: 5:00 PM * Telephone Encounter - Edel HobbsVA - 06/15/2023 8:53 AM EDT BX. COORDINATOR [...] PATIENT CONTACT INFORMATION: Best way to reach [phone] SCHEDULING: Date: 06/25/2023 patient is scheduled for a standard marrow this day but required CT guided last time. Please call Estephanie RN at [phone] if any questions. (Specific requests must be [...] random biopsies do not need imaging.) IMAGING: [facility] (If the imaging was obtained outside the [facility] system, PLEASE upload for review prior to approval.) Note to all persons requesting biopsies: All biopsy requests will be scheduled as quickly as possible, based on the clinical urgency, availability of appointment times, the need to hold anti-thrombolytic therapy (aspirin and other blood thinners) and the patient s schedule, including the need for an available reefer truck driver. If a percutaneous biopsy or drainage is not felt to be safe or an alternative method for establishing a diagnosis is possible, this will be discussed directly with the requesting physician. documented in this encounterCinc[facility]10-14-2023 NoteHNO ID: [id number] Author: Note, Interface Service: ? Author Type: ? Type: Progress Notes Filed: 2023 2:15 AM Note Text: Epic Scheduled Downtime: 2023 1:00:00 AM to 2023 1:28:00 [facility]10-12-2023 NoteSelect [facility] [place]10-12-2023 Miscellaneous Notes* Telephone Encounter - Mary Ohara LGC - 06/14/2023 1:24 PM EDT I left a voicemail for the patient including my contact information requesting that she return my call to discuss options for scheduling a genetic counseling visit. Mary Ohara MS, [facility] Licensed, Certified Genetic Counselor documented in this encounterCincinnati [facility]10-05-2023 NoteSelect [facility]ty [facility] - [place]10-04-2023 NoteSelect [facility] [place]10-03-2023 NoteSelect [facility] [place]10-03-2023 NoteSelect [facility] [place]10-02-2023 Note [facility]10-02-2023 NoteSelect [facility] [place]10-01-2023 NoteSelect [facility] [place]09-30-2023 NoteSelect [facility] [place] 06-01-2023 NoteSelect [facility] [place]09-29-2023 NoteSelect [facility] [place]09-29-2023 NoteSelect [facility] [place]09-29-2023 NoteSelect [facility] [place]09-28-2023 Miscellaneous Notes* Telephone Encounter - Chika Lagos - 05/31/2023 2:54 PM EDT THE COMPLETED [employer] PATIENT ASSISTANCE APPLICATION FOR POSACONAZOLE WAS FAXED FOR CONSIDERATION. RECEIVED CALL FROM [employer] AND MORENITA SEARS, THE PATIENT WAS APPROVED FOR ASSISTANCE UNDER FOR THE DATES: 05/31/2023 - AT NO COST TO THE PATIENT. THE MEDICATION WILL BE MAILED DIRECTLY TO THE PATIENTS HOME ADDRESS WITHIN 3 TO 5 BUSINESS DAYS. EMAILED THE INFORMATION TO PRESCRIBER. documented in this encounterCincinnati [facility]09-28-2023 NoteSelect [facility] Specialty [facility] - [place]09-28-2023 NoteSelect [facility]ty [facility] [place]09-28-2023 History of Past illness Narrative* Problem Noted [...] Tylenol and d/c'd home > seen at [facility] on 05/28 by heme/onc and BMT who recommended admission for concerns for port infection > blood cxs x2 obtained -- NGTD > no fevers STATE AUDITOR, 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; 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 > ID [...] of this encounter (statuses as of 06/14/2023) [facility] History of Past illness Narrative* Problem [...] Tylenol and d/c'd home > seen at [facility] on 05/28 by heme/onc and BMT who recommended admission for concerns for port infection > blood cxs x2 obtained -- NGTD > no fevers STATE AUDITOR, 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; 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 > ID [...] of this encounter (statuses as of 06/20/2023) [facility] of Past illness Narrative* Problem [...] Tylenol and d/c'd home > seen at [facility] on 05/28 by heme/onc and BMT who recommended admission for concerns for port infection > blood cxs x2 obtained -- NGTD > no fevers STATE AUDITOR, 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; 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 > ID [...] of this encounter (statuses as of 06/22/2023) [facility] History of Past illness Narrative* Problem [...] Tylenol and d/c'd home > seen at [facility] on 05/28 by heme/onc and BMT who recommended admission for concerns for port infection > blood cxs x2 obtained -- NGTD > no fevers STATE AUDITOR, 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; 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 > ID [...] of this encounter (statuses as of 06/26/2023) [facility] of Past illness Narrative* Problem [...] Tylenol and d/c'd home > seen at [facility] on 05/28 by heme/onc and BMT who recommended admission for concerns for port infection > blood cxs x2 obtained -- NGTD > no fevers STATE AUDITOR, 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; 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 > ID [...] of this encounter (statuses as of 06/26/2023) [facility] of Past illness Narrative* Problem [...] Tylenol and d/c'd home > seen at [facility] on 05/28 by heme/onc and BMT who recommended admission for concerns for port infection > blood cxs x2 obtained -- NGTD > no fevers STATE AUDITOR, 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; 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 > ID [...] of this encounter (statuses as of 07/02/2023) [facility] of Past illness Narrative* Problem [...] Tylenol and d/c'd home > seen at [facility] on 05/28 by heme/onc and BMT who recommended admission for concerns for port infection > blood cxs x2 obtained -- NGTD > no fevers STATE AUDITOR, 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; 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 > ID [...] of this encounter (statuses as of 07/07/2023) [facility] of Past illness Narrative* Problem [...] Tylenol and d/c'd home > seen at [facility] on 05/28 by heme/onc and BMT who recommended admission for concerns for port infection > blood cxs x2 obtained -- NGTD > no fevers STATE AUDITOR, 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; 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 > ID [...] of this encounter (statuses as of 07/11/2023) [facility] NoteSelect [facility] [place]09-28-2023 Note [facility]09-28-2023 NoteSelect [facility] [place]09-27-2023 NoteSelect [facility] [place]09-26-2023 NoteSelect [facility] [place] 05-28-2023 NoteSelect [facility] [place]09-25-2023 History of Present illness Narrative* Brianna Pham MD - 05/28/2023 3:51 PM EDT Chief complaint: 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 Sherry Macdonald) History of present illness: The patient is a 67-year-old woman with a history of stage I (hR4rS5V6)invasive breast carcinoma and DCIS of the left breast, 1.5 cm, grade 2, ER/MO positive and HER2 negative status post lumpectomy [...] experienced easy bruising. She initially presented to [place] emergency department and was subsequently transferred to [facility] for further evaluation. She was noted [...] revealed complex cytogenetics/an NGS AML profile by [employer] revealed the following mutations:RUNK1 F40Wfs*14, TP53 C238Y, and DNMT3A R635W. The patient had a right sided Port-A-Cath placed on 05/26/2023 and was initially anticipated to start Vidaza and venetoclax next week. However, the Port-A-Cath site became extremely tender with surrounding erythema. She was evaluated earlier today by Dr. Mike Hughes and our Leukemia Program here at the [facility] and subsequently was referred to me for a transplant regarding allogenic hematopoietic cell transplantation. At the time of her visit she noted having some prior diffuse pain for which she had been in [facility] emergency department yesterday and received an [...] patient is and previously worked as a [employer] for 42 years and has been retired [...] on her extremities, erythema/tenderness around the right Prmy-Y-Ryyqovtq tracking down to the right upper breast but no other rash. . Impression/recommendation: In summary, Mrs. Wilkes is a woman with a history of stage I (mA4kG0Q4) invasive breast carcinoma and DCIS of the left breast, 1.5 cm, grade 2, ER/MO positive and HER2 negative status post lumpectomy [...] Sherry Macdonald, as well as with Dr. Saul andrews in our Leukemia program who saw the patient today and Dr. Mahesh Cantor the attending physicianon our inpatient Leukemia service. Brianna Pham MD CC: Sherry Macdonald MD office phone: , cell: office MD Melissa Hill MD (PCP) documented in this encounterCincinnati [facility]rin[facility]09-25-2023 NoteSelect Medical Specialty [facility] - [place]09-25-2023 History of Present illness Narrative* Aurelia Hines [...] transplant basics book provided by [facility]. Instructions provided to have siblings register online or call with provided information. Patient instructed to call Aurelia Hines RN , pager [phone] with any questions. Business card provided. Patient [...] search. Aurelia Hines RN documented [facility]* Cathleen Schuster LPN - 05/28/2023 1:26 PM EDT Reviewed and discussed nursing notes,vital signs,recent tests,,medications with the patient. documented in this encounterC[facility] [place] History of Present illness Narrative* Lynnette Malcolm [...] dressing placed, and secured with coban. Dr. Nazemi instructed patient and to leave dressing on until tomorrow, then okay to removeand shower. * New Marks RN - 12/07/2022 1:42 PM EDT Patient instructed per phone interview on the pre-operative, intra-operative, and post-operative process, as well as NPO status. Pre-operative instruction sheet reviewed as well as G skin prep instructions. Verbalizes understanding. Patient had wellness lab and EKG completed 12/06/22 at [facility]. * New Marks RN - 12/07/2022 1:28 PM EDT Attempted PAT phone call; no answer; message left to return PAT phone call. [facility] [employer] Work Phone: 1(352) 888-333004-21-2023 Hospital Discharge instructions* Discharge Instructions* Lynnette Malcolm [...] 1-2 weeks. Call the office if questions [phone] [facility] Phone: 1(176) 516-705001-09-2014 History of Past illness Narrative* Problem Noted Date Diagnosed Date Resolved Date Breast cancer 09/11/2013 05/28/2023 documented as of this encounter (statuses as of 05/28/2023) [facility] of Past illness Narrative* Problem Noted Date Diagnosed Date Resolved Date Breast cancer 09/11/2013 05/28/2023 documented as of this encounter (statuses as of 05/29/2023) [facility] of Past illness Narrative* Problem Noted Date Diagnosed Date Resolved Date Breast cancer 09/11/2013 05/28/2023 documented as of this encounter (statuses as of 06/01/2023) [facility] Diagnosis Acute postoperative pain- Primary Other acute postoperative pain Lipoma of left forearm documented in this encounter [facility] 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 documented in this encounter [facility]* Diagnosis 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 Infection due to Port-A-Cath, initial encounter [facility] Diagnosis 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) [facility] this encounter [facility] Diagnosis 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 Pancytopenia (HCC) Other pancytopenia History of breast cancer Personal history of malignant neoplasm of breast 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) documented in this encounter [facility] Diagnosis 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 Pancytopenia (HCC) Other pancytopenia [facility] encounter [facility] Diagnosis 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) [facility] this encounter [facility]* Diagnosis 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 Hospital discharge follow-up Other follow-up examination Pancytopenia (HCC) Other pancytopenia Colitis Other and unspecified noninfectious gastroenteritis and colitis documented in this encounter [facility]* Diagnosis 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] INTRAVENOUS, EVERY 6 HOURS NEEDED, Starting on 06/25/23 at 0925, Until Sun06/26/23 at 0303, Nausea/Vomiting - First Line - Parenteral, Give IV push over 2 minutes Additional Source Comments INFORMATION SOURCE (unrecogn ized section and content) DATE CREATED AUTHOR 06/15/2021 [facility] DATE CREATED AUTHOR AUTHOR'S ORGANIZ ATION 08/17/2021 [facility] DATE CREATED AUTHOR AUTHOR'S ORGANIZ ATION 12/27/2022 [facility] DATE CREATED AUTHOR AUTHOR'S ORGANIZ ATION 05/25/2023 Rashel Myrick [facility] DATE CREATED AUTHOR AUTHOR'S ORGANIZ ATION 09/07/2023 [facility] DATE CREATED AUTHOR AUTHOR'S ORGANIZ ATION 09/30/2023 [facility] Reason for Visit (unrecogniz ed section and content) Specialty Diagnoses / Procedures Referred By Contac t Referred To Contact Diagnoses 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 Procedures MO EXC B9 LESION MRGN XCP SK TG T/A/L 0.5 CM/< ARM LESION BIOPSY EXCISION-INNER ARM LIPOMA Martha Malik I, DO [address] [facility] [address] [place] [address] [facility] [address] [place] [address] Referral ID Status Reason Start Date Expiration Date Visits Re quested Visits Authorized [id number] 1 1 Reason Comments Consult Reason Comments Biopsy Request Reason Comments Patient Question Reason Comments Established Patient Reason Comments Leukemia Reason Onset Date Comments Refill Request 08/07/2023 Reason Comments Patient Education (Transplant) BMT Plann ing Reason Onset Date Comments Refill Request 08/09/2023 Reason Comments Consent Presentation [id number] [id number] Reason Comments Appointment Ordered Prescriptions (unrec ognized [...] 12/20/2022 12/21/2022 12/22/2022 bupivacaine-EPINEPHrine PF (MARCAINE-w/EPINEPHRINE) 0.5% -[id number] injection (CANCELED) PRN, Starting on Sun12/22/22 at 1425, Until Sun12/22/22 at 1430, Intra-op 1425 (Given - Provid er: Martha Malik DO) PRN Medication Order 06/23/2023 06/24/2023 06/25/2023 fentaNYL 50 mcg/mL injection (SUBLIMAZE) (CANCELED) INTRAVENOUS, X (OR/PROCEDURE) PRN, Starting on 06/25/23 at 0838, Until Sun06/25/23 at 0910, Intraprocedure 0838 (Given - Provid er: Carmen Agudelo RN)0847 (Given - Provider: Carmen Agudelo RN) lidocaine (PF) 20 mg/mL (2 %) injection (XYLOCAINE) (CANCELED) SUBCUTANEOUS, X (OR/PROCEDURE) PRN, Starting on Sun06/25/23 at 0840, Until Sun06/25/23 at 0910, Intraprocedure 0840 (Given - Provid er: Robinson Benito MD - Comment: bx site) midazolam (PF) injection (VERSED) (CANCELED) INTRAVENOUS, X (OR/PROCEDURE) PRN, Starting on Sun06/25/23 at 0838, Until Sun06/25/23 at 0910, Intraprocedure 0838 (Given - Provid er: Carmen Agudelo RN)0847 (Given - Provider: Carmen Agudelo RN) ondansetron (PF) 4 mg injection (ZOFRAN) 4 mg, INTRAVENOUS, EVERY 6 HOURS NEEDED, Starting on Sun06/25/23 at 0925, Until Sun06/26/23 at 0303, Nausea/Vomiting - First Line - Parenteral, Give IV push over 2 minutes Care Teams (unrecognized sec tion and content) Accordion Tuner Relationship Specialty Start Date End Date WonderMelissa conrad MD [address] [place] [address] PCP - General Family Medicine 11/17/22 Accordion Tuner Relationship Specialty Start Date End Date WonderMelissa conrad MD PCP - General Family Medicine 08/25/13 Accordion Tuner Relationship Specialty Start Date End Date WonderMelissa conrad MD PCP - General Family Medicine 08/25/13 Accordion Tuner Relationship Specialty Start Date End Date WonderMelissa conrad MD PCP - General Family Medicine 08/25/13 Accordion Tuner Relationship Specialty Start Date End Date WonderMelissa conrad MD PCP - General Family Medicine 08/25/13 Accordion Tuner Relationship Specialty Start Date End Date WonderMelissa conrad MD PCP - General Family Medicine 08/25/13 Mike Hughes MD [address] [place] [address] Physician Hematology/Oncology 06/19/23 Accordion Tuner Relationship Specialty Start Date End Date WonderMelissa conrad MD PCP - General Family Medicine 08/25/13 Mike Hughes MD [address] [place] [address] Physician Hematology/Oncology 06/19/23 Accordion Tuner Relationship Specialty Start Date End Date Melissa Pierce MD PCP - General Family Medicine 08/25/13 Mike Hughes MD [address] [place] [address] Physician Hematology/Oncology 06/19/23 Accordion Tuner Relationship Specialty Start Date End Date Melissa Pierce MD PCP - General Family Medicine 08/25/13 Mike Hughes MD [address] [place] [address] Physician Hematology/Oncology 06/19/23 Accordion Tuner Relationship Specialty Start Date End Date Melissa Pierce MD PCP - General Family Medicine 08/25/13 Mike Hughes MD [address] [place] [address] Physician Hematology/Oncology 06/19/23 Dania Hill, RN 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 Hematology/Oncology 06/28/23 Accordion Tuner Relationship Specialty Start Date End Date Melissa Pierce MD PCP - General Family Medicine 08/25/13 Mike Hughes MD [address] [place] [address] Physician Hematology/Oncology 06/19/23 Dania Hill RN 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 Hematology/Oncology 06/28/23 Accordion Tuner Relationship Specialty Start Date End Date Melissa Pierce MD PCP - General Family Medicine 08/25/13 Mike Hughes MD [address] [place] [address] Physician Hematology/Oncology 06/19/23 Dania Hill, MAMTA 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 Hematology/Oncology 06/28/23 Accordion Tuner Relationship Specialty Start Date End Date Melissa Pierce MD PCP - General Family Medicine 08/25/13 Mike Hughes MD [address] [place] [address] Physician Hematology/Oncology 06/19/23 Dania Hill, RN 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 Hematology/Oncology 06/28/23 [place] [address] [place] [address] 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 Blood and Marrow Transplant 08/06/23 [place] [address] [place] [address] Transplant Physician Blood and Marrow Transplant 08/06/23 Accordion Tuner Relationship Specialty Start Date End Date Melissa Pierce MD PCP - General Family Medicine 08/25/13 Mike Hughes MD [address] [place] [address] [id number] Physician Hematology/Oncology 06/19/23 Dania Hill, RN 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 Hematology/Oncology 06/28/23 Georgina [place], [place] [id number] [place] [address] 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 Blood and Marrow Transplant 08/06/23 [place] [address] [place] [id number] Transplant Physician Blood and Marrow Transplant 08/06/23 Accordion Tuner Relationship Specialty Start Date End Date Melissa Pierce MD PCP - General Family Medicine 08/25/13 [place] [address] [place] [address] [id number] Physician Hematology/Oncology 06/19/23 Dania Hill, RN 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 Hematology/Oncology 06/28/23 Georgina Kumar, MAMTA [address] [place] [address] 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 Blood and Marrow Transplant 08/06/23 [place] [address] [place] [address] Transplant Physician Blood and Marrow Transplant 08/06/23 Accordion Tuner Relationship Specialty Start Date End Date Melissa Pierce MD PCP - General Family Medicine 08/25/13 [place] [address] [place] [address] Physician Hematology/Oncology 06/19/23 Dania Hill, RN 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 Hematology/Oncology 06/28/23 [place] [address] [place] [id number] 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 Blood and Marrow Transplant 08/06/23 Brianna Pham MD [id number] [place], [place] [id number] Transplant Physician Blood and Marrow Transplant 08/06/23 Accordion Tuner Relationship Specialty Start Date End Date Melissa Pierce MD PCP - General Family Medicine 08/25/13 Mike Hughes MD [address] [place], [place] [id number] Physician Hematology/Oncology 06/19/23 Dania Hill, MAMTA 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 Hematology/Oncology 06/28/23 [place] [address] [place] [address] 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 Blood and Marrow Transplant 08/06/23 Brianna Pham MD [id number] [place] [address] Transplant Physician Blood and Marrow Transplant 08/06/23 Accordion Tuner Relationship Specialty Start Date End Date Melissa Pierce MD PCP - General Family Medicine 08/25/13 Mike Hughes MD [address] [place], [place] [phone] Physician Hematology/Oncology 06/19/23 Georgina Kumar, MAMTA [address] [place] [address] 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 Blood and Marrow Transplant 08/06/23 Brianna Pham MD [address] [place] [address] Transplant Physician Blood and Marrow Transplant 08/06/23 Sofya Schmid RN 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 Hematology/Oncology 08/09/23 Fidelina Shearer LISW [address] [place] [address] Blood and Marrow Transplant 08/09/23 Accordion Tuner Relationship Specialty Start Date End Date Melissa Pierce MD PCP - General Family Medicine 08/25/13 Mike Hughes MD [address] [place] [address] Physician Hematology/Oncology 06/19/23 [place] [address] [place] [address] 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 Blood and Marrow Transplant 08/06/23 Brianna Pham MD [address] [place] [address] Transplant Physician Blood and Marrow Transplant 08/06/23 Sofya Schmid RN 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 Hematology/Oncology 08/09/23 Fidelina Shearer LISW [address] [place] [address] Blood and Marrow Transplant 08/09/23 Accordion Tuner Relationship Specialty Start Date End Date Melissa Pierce MD PCP - General Family Medicine 08/25/13 Mike Hughes MD [address] [place] [address] Physician Hematology/Oncology 06/19/23 Georgina Kumar, MAMTA [address] [place] [address] 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 Blood and Marrow Transplant 08/06/23 [place] [address] [place] [address] Transplant Physician Blood and Marrow Transplant 08/06/23 Sofya Schmid RN 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 Hematology/Oncology 08/09/23 Fidelina Shearer LISW [address] [place] [address] Blood and Marrow Transplant 08/09/23 Accordion Tuner Relationship Specialty Start Date End Date Melissa Pierce MD PCP - General Family Medicine 08/25/13 Mike Hughes MD [address] [place], [place] [id number] Physician Hematology/Oncology 06/19/23 Dania Hill, MAMTA 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 Hematology/Oncology 06/28/23 08/08/23 [place] [address] [place] [address] 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 Blood and Marrow Transplant 08/06/23 [place] [address] [place] [address] Transplant Physician Blood and Marrow Transplant 08/06/23 Sofya Schmid RN 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 Hematology/Oncology 08/09/23 Fidelina Shearer LISW [address] [place], [place] [id number] Blood and Marrow Transplant 08/09/23 Accordion Tuner Relationship Specialty Start Date End Date Melissa Pierce MD PCP - General Family Medicine 08/25/13 Mike Hughes MD [address] [place], [place] [phone] Physician Hematology/Oncology 06/19/23 [place] [address] [place] [address] 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 Blood and Marrow Transplant 08/06/23 [place] [address] [place] [address] Transplant Physician Blood and Marrow Transplant 08/06/23 Sofya Schmid RN 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 Hematology/Oncology 08/09/23 Fidelina Shearer LISW [address] [place] [address] Blood and Marrow Transplant 08/09/23 Source Comments (unrecognize d section and content) In the event this informatio n is protected by the Federal Confidentiality of Alcohol and Drug Abuse Patient Records regulations: The Federal rules restrict any use of the information to criminally investigate or prosecute any alcohol or drug abuse patient.[facility] the event this information is protected by the Federal Confidentiality of Alcohol and Drug Abuse Patient Records regulations: The Federal rules restrict any use of the information to criminally investigate or prosecute any alcohol or drug abuse patient.[facility] Hospital[facility] the event this information is protected by the Federal Confidentiality of Alcohol and Drug Abuse Patient Records regulations: The Federal rules restrict any use of the information to criminally investigate or prosecute any alcohol or drug abuse patient.[facility] Hospital[facility] the event this information is protected by the Federal Confidentiality of Alcohol and Drug Abuse Patient Records regulations: The Federal rules restrict any use of the information to criminally investigate or prosecute any alcohol or drug abuse patient.[facility] Hospital[facility] the event this information is protected by the Federal Confidentiality of Alcohol and Drug Abuse Patient Records regulations: The Federal rules restrict any use of the information to criminally investigate or prosecute any alcohol or drug abuse patient.[facility] HospitalIn the event this information is protected by the Federal Confidentiality of Alcohol and Drug Abuse Patient Records regulations: The Federal rules restrict any use of the information to criminally investigate or prosecute any alcohol or drug abuse patient.[facility] Hospital[facility] the event this information is protected by the Federal Confidentiality of Alcohol and Drug Abuse Patient Records regulations: The Federal rules restrict any use of the information to criminally investigate or prosecute any alcohol or drug abuse patient.[facility] Hospital[facility] the event this information is protected by the Federal Confidentiality of Alcohol and Drug Abuse Patient Records regulations: The Federal rules restrict any use of the information to criminally investigate or prosecute any alcohol or drug abuse patient.[facility] Hospital[facility] the event this information is protected by the Federal Confidentiality of Alcohol and Drug Abuse Patient Records regulations: The Federal rules restrict any use of the information to criminally investigate or prosecute any alcohol or drug abuse patient.[facility] Hospital[facility] the event this information is protected by the Federal Confidentiality of Alcohol and Drug Abuse Patient Records regulations: The Federal rules restrict any use of the information to criminally investigate or prosecute any alcohol or drug abuse patient.[facility] Hospital[facility] the event this information is protected by the Federal Confidentiality of Alcohol and Drug Abuse Patient Records regulations: The Federal rules restrict any use of the information to criminally investigate or prosecute any alcohol or drug abuse patient.[facility] HospitalIn the event this information is protected by the Federal Confidentiality of Alcohol and Drug Abuse Patient Records regulations: The Federal rules restrict any use of the information to criminally investigate or prosecute any alcohol or drug abuse patient.[facility] Hospital[facility] the event this information is protected by the Federal Confidentiality of Alcohol and Drug Abuse Patient Records regulations: The Federal rules restrict any use of the information to criminally investigate or prosecute any alcohol or drug abuse patient.[facility] HospitalIn the event this information is protected by the Federal Confidentiality of Alcohol and Drug Abuse Patient Records regulations: The Federal rules restrict any use of the information to criminally investigate or prosecute any alcohol or drug abuse patient.[facility] HospitalIn the event this information is protected by the Federal Confidentiality of Alcohol and Drug Abuse Patient Records regulations: The Federal rules restrict any use of the information to criminally investigate or prosecute any alcohol or drug abuse patient.[facility] HospitalIn the event this information is protected by the Federal Confidentiality of Alcohol and Drug Abuse Patient Records regulations: The Federal rules restrict any use of the information to criminally investigate or prosecute any alcohol or drug abuse patient.[facility] HospitalIn the event this information is protected by the Federal Confidentiality of Alcohol and Drug Abuse Patient Records regulations: The Federal rules restrict any use of the information to criminally investigate or prosecute any alcohol or drug abuse patient.[facility] HospitalIn the event this information is protected by the Federal Confidentiality of Alcohol and Drug Abuse Patient Records regulations: The Federal rules restrict any use of the information to criminally investigate or prosecute any alcohol or drug abuse patient.[facility] HospitalIn the event this information is protected by the Federal Confidentiality of Alcohol and Drug Abuse Patient Records regulations: The Federal rules restrict any use of the information to criminally investigate or prosecute any alcohol or drug abuse patient.[facility] HospitalIn the event this information is protected by the Federal Confidentiality of Alcohol and Drug Abuse Patient Records regulations: The Federal rules restrict any use of the information to criminally investigate or prosecute any alcohol or drug abuse patient.[facility] HospitalIn the event this information is protected by the Federal Confidentiality of Alcohol and Drug Abuse Patient Records regulations: The Federal rules restrict any use of the information to criminally investigate or prosecute any alcohol or drug abuse patient.[facility] HospitalIn the event this information is protected by the Federal Confidentiality of Alcohol and Drug Abuse Patient Records regulations: The Federal rules restrict any use of the information to criminally investigate or prosecute any alcohol or drug abuse patient.[facility] FOR RECORDS PERTAINING TO PATIENTS WHO ARE [...] BE BASED ON THE PRIMARY CLINICAL RECORDS. [facility] [address] [facility]. provides no warranty or guarantee of the accuracy or completeness of information in this document.
--- NOTE | 2023-10-01 17:03 | ED.FEVER1 ---
HPI - Fever General Chief Complaint: Fever Stated Complaint: Fever Time Seen by Provider: 10/01/23 16:37 Source: patient and family Mode of arrival: walk-in Limitations: no limitations History of Present Illness HPI Narrative: 68-year-old female presents for a fever. She had a platelet transfusion today and on her way home got chills and developed a fever. She had not been sick recently. No chest pain cough or shortness breath. She does not have a sore throat or abdominal pain. No vomiting or diarrhea. She does not have any pain. Related Data Home Medications Medication Instructions Recorded Confirmed bupropion HCl 75 mg tablet 75 mg PO BID 05/03/23 09/23/23 omeprazole 20 mg capsule,delayed 20 mg PO DAILY 05/03/23 09/23/23 release acyclovir 400 mg tablet 400 mg PO BID 05/25/23 09/23/23 levofloxacin 500 mg tablet 500 mg PO DAILY 06/18/23 09/23/23 olanzapine 2.5 mg tablet 2.5 mg PO .QHS 06/18/23 09/23/23 posaconazole 100 mg tablet,delayed 300 mg PO DAILY 06/18/23 09/23/23 release (Noxafil) loratadine 10 mg tablet (Claritin) 10 mg PO Q24H PRN allergic symptoms 07/11/23 09/23/23 ondansetron 4 mg disintegrating 4 mg PO Q6H PRN nausea and vomiting 07/11/23 09/23/23 tablet acetaminophen 300 mg-codeine 30 mg 1 tab PO Q6H PRN pain 09/23/23 09/23/23 tablet Allergies Allergy/AdvReac Type Severity Reaction Status Date / Time hydrocodone [From Vicodin] AdvReac Verified 09/23/23 10:31 Review of Systems ROS Narrative A ten point review of systems is negative except as noted above. [facility] Medical History (Updated 10/01/23 @ 18:19 by Jay Hendricks MD) GERD (gastroesophageal reflux disease) ?K21.9 - Gastro-esophageal reflux disease without esophagitis (ICD-10) Depression ?F32.A - Depression, unspecified (ICD-10) AML (acute myeloblastic leukemia) ?C92.00 - Acute myeloblastic leukemia, not having achieved remission (ICD-10) History of blood transfusion ?Z92.89 - Personal history of other medical treatment (ICD-10) 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 - Intraductal carcinoma in situ of left breast (ICD-10) Myeloid leukemia ?C92.90 - Myeloid leukemia, unspecified, not having achieved remission (ICD-10) Symptomatic anemia ?D64.9 - Anemia, unspecified (ICD-10) Surgical History History of bone marrow biopsy ?Z98.890 - Other specified postprocedural states (ICD-10) S/P excision of lipoma ?Z98.890 - Other specified postprocedural states (ICD-10) ?Z86.018 - Personal history of other benign neoplasm (ICD-10) History of hysterectomy ?Z90.710 - Acquired absence of both cervix and uterus (ICD-10) Family History Father Family history of cancer Family history of hypertension Mother Family history of hypertension Grandfather Family history of cancer Grandmother Family history of cancer Aunt Family history of cancer Social History Within the past year, how often did you have a drink containing alcohol: monthly or less Within the past year, how many standard drinks containing alcohol did you have on a typical day: 1 or 2 Total score: 0 Score interpretation: A score less than 3 is consistent with normal alcohol consumption. Smoking status: Never smoker Do you think of yourself as: straight/heterosexual Gender Identity: female Exam Narrative Exam Narrative: Nurses note and vital signs reviewed and patient is not hypoxic. General: The patient appears well and in no apparent distress. Patient is resting comfortably on cart. Skin: Warm, dry, no pallor noted. There is no rash noted. Head: Normocephalic, atraumatic Eye: Normal conjunctiva, no drainage Ears, Nose, Mouth, and Throat: oral mucosa is moist. Nares patent. Cardiovascular: Regular Rate and Rhythm Respiratory: Patient is in no distress, no accessory muscle use, lungs are clear to auscultation, no wheezing, rales or rhonchi Back: non-tender GI: soft and nontender Musculoskeletal: The patient has no evidence of calf tenderness, no pitting edema, symmetrical pulses noted bilaterally Neurological: A&O, normal speech Psychiatric: Cooperative Constitutional Vital Signs, click to edit/add: Last Vital Signs Temp 102.8 F H 10/01/23 16:37 Pulse 89 10/01/23 18:17 Resp 18 10/01/23 18:17 BP 130/87 10/01/23 18:17 Pulse Ox 96 10/01/23 18:17 O2 Del Method Room Air 10/01/23 18:17 Course Vital Signs Vital signs: Vital Signs Temperature 102.8 F H 10/01/23 16:37 Pulse Rate 90 10/01/23 16:37 Respiratory Rate 16 10/01/23 16:37 Blood Pressure 162/90 H 10/01/23 16:37 Pulse Oximetry 97 10/01/23 16:37 Oxygen Delivery Method Room Air 10/01/23 16:37 Temperature 102.8 F H 10/01/23 16:37 Pulse Rate 89 10/01/23 18:17 Respiratory Rate 18 10/01/23 18:17 Blood Pressure 130/87 10/01/23 18:17 Pulse Oximetry 96 10/01/23 18:17 Oxygen Delivery Method Room Air 10/01/23 18:17 MDM - Fever MDM Narrative Medical decision making narrative: The patient presented with a fever and neutropenia. Her workup is negative. Covid and flu swabs are negative and urinalysis is negative. Chest x-ray is negative. Blood cultures are pending. I've spoken to Dr. Macdonald and the patient will be admitted for observation and will receive IV Zosyn. Treatment diagnosis and disposition were discussed with the patient. Differential Diagnosis Differential diagnosis: Likely cellulitis, fever of unknown origin, community acquired pneumonia, viral infection, influenza and other (Covid, urinary tract infection, platelet reaction) Lab Data Attestation: I reviewed the patient's lab results. Labs: Lab Results 10/01/23 10/01/23 10/01/23 Range/Units 17:20 17:23 17:35 WBC 0.3 L* (4.0-11.0) 10^3/uL RBC 2.46 L (4.20-5.40) 10^6/uL Hgb 7.6 L (12.0-16.0) g/dL Hct 22.1 L* (36.0-48.0) % MCV 89.8 (81.0-99.0) fL MCH 30.9 (26.7-34.0) pg MCHC 34.4 (29.9-35.2) g/dL RDW 17.8 H (11.0-15.0) % Plt Count 24 L* (150-450) 10^3/uL MPV 8.6 L (9.5-13.5) fL Seg Neuts % (Manual) 8.0 Lymphocytes % (Manual) 92.0 H (20.5-60.0) % Monocytes % (Manual) 0.0 L (1.7-12.0) % Eosinophils % (Manual) 0.0 L (0.9-7.0) % Basophils % (Manual) 0.0 L (0.2-2.0) % Neutrophils # (Manual) 0.02 L (1.4-6.5) 10^3/uL Lymphocytes # (Manual) 0.27 L (1.20-3.80) 10^3/uL Monocytes # (Manual) 0.00 L (0.30-0.80) 10^3/uL Eosinophils # (Manual) 0.00 (0.00-0.70) 10^3/uL Basophils # (Manual) 0.00 (0.00-0.10) 10^3/uL Sodium 135 L (136-145) mmol/L Potassium 3.3 L (3.5-5.1) mmol/L Chloride 101 (98-107) mmol/L Carbon Dioxide 25.6 (21.0-32.0) mmol/L Anion Gap 11.7 BUN 8.0 (7.0-18.0) mg/dL Creatinine 0.79 (0.55-1.02) mg/dL Est GFR ( Amer) >60 (>=60) Est GFR (Non-Af Amer) >60 (>=60) BUN/Creatinine Ratio 10.1 Glucose 124 H (74-106) mg/dL Calcium 8.5 (8.5-10.1) mg/dL Urine Color Lt. yellow (YELLOW) Urine Clarity Clear (CLEAR) Urine pH 7.5 (5.0-9.0) Ur Specific [place] 1.020 (1.005-1.025) Urine Protein Negative (NEG/TRACE) mg/dL Urine Glucose (UA) Negative (NEGATIVE) mg/dL Urine Ketones Negative (NEGATIVE) mg/dL Urine Occult Blood Negative (NEGATIVE) Urine Nitrite Negative (NEGATIVE) Urine Bilirubin Negative (NEGATIVE) Urine Urobilinogen 0.2 (0.2-1.0) EU/dL Ur Leukocyte Esterase Negative (NEGATIVE) Urine RBC 0-2 (0-2) #/HPF Urine WBC None seen (NONE SEEN) #/HPF Ur Squamous Epith Cells Rare (NONE/RARE) #/LPF Urine Crystals None seen (None Seen) #/HPF Urine Bacteria Trace A (NONE SEEN) #/HPF Urine Casts None seen (NONE SEEN) #/LPF Urine Mucus None seen (NONE SEEN) Influenza Type A Ag Negative Influenza Type B Ag Negative SARS-CoV-2 Ag (CV2AG) Negative (NEGATIVE) Imaging Data Chest x-ray: Radiologist's impression: ITS Impressions Chest X-Ray 10/01/23 17:25 IMPRESSION: No acute cardiopulmonary abnormality. Electronically authenticated by: BONNY VALLE Date: 10/01/2023 17:50 Discharge Plan Discharge Chief Complaint: Fever Clinical Impression: Fever Patient Disposition: Admitted as Observation Time of Disposition Decision: 18:19 Condition: Good
--- NOTE | 2023-10-01 17:25 | XR_ITS ---
The [address] [address] Patient Name: NABIL THOMPSON MRN: [id number] date: 1955 Sex: F Assigned Patient Location: ER Current Patient Location: ER Accession/Order Number: [id number] Exam Date: 10/01/2023 17:20 Report Date: 10/01/2023 17:50 At the request of: SHERMAN PUCKETT Procedure: XR chest 1V EXAMINATION: XR chest 1V 10/01/2023 2:48 PM PST HISTORY: fever TECHNIQUE: Single frontal view of the chest acquired. COMPARISONS: Chest x-ray 07/11/2023 and 09/18/2023. FINDINGS: Lines/tubes/other: Right-sided central venous catheter terminates in the upper one third of the SVC. Heart and mediastinum: The heart and the mediastinum are within normal limits for technique. Bones: No acute osseous abnormality. Lungs: The lungs are clear. There is no evidence of pneumonia or pulmonary edema. Pleura: There is no significant pleural effusion or pneumothorax. Other: None. XR/XR chest 1V IMPRESSION: No acute cardiopulmonary abnormality. Electronically authenticated by: BONNY VALLE Date: 10/01/2023 17:50
[2023-10-01] MEDS: ACETAMINOPHEN 325 MG TABLET 650 MG PO (17:27)
[2023-10-01 17:32] LABS: Hemoglobin 7.6 g/dL (12.0-16.0); Mean Corpuscular HGB Conc 34.4 g/dL (29.9-35.2); Mean Corpuscular Hemoglobin 30.9 pg (26.7-34.0); Mean Corpuscular Volume 89.8 fL (81.0-99.0); Mean Platelet Volume 8.6 fL (9.5-13.5); Red Blood Count 2.46 10^6/uL (4.20-5.40); Red Cell Distribution Width 17.8 % (11.0-15.0)
[2023-10-01 17:42] LABS: Hematocrit 22.1 % (36.0-48.0); Platelet Count 24 10^3/uL (150-450); White Blood Count 0.3 10^3/uL (4.0-11.0)
[2023-10-01 17:43] LABS: Anion Gap 11.7; BUN Creatinine Ratio 10.1; Calcium 8.5 mg/dL (8.5-10.1); Carbon Dioxide 25.6 mmol/L (21.0-32.0); Chloride 101 mmol/L (98-107); Estimated GFR (African America >60 (>=60); Estimated GFR (Non-African Ame >60 (>=60); Glucose 124 mg/dL (74-106); Potassium 3.3 mmol/L (3.5-5.1); Sodium 135 mmol/L (136-145)
[2023-10-01 17:49] LABS: Influenza Virus A Antigen Negative; Influenza Virus B Antigen Negative; Internal Control Within Normal Limits; SARS-CoV-2 Ag NEGATIVE (NEGATIVE)
[2023-10-01 17:52] LABS: Bilirubin Urine NEGATIVE (NEGATIVE); Blood Urine NEGATIVE (NEGATIVE); Clarity Urine CLEAR (CLEAR); Color Urine LT. YELLOW (YELLOW); Glucose Urine UA NEGATIVE (NEGATIVE); Ketones Urine NEGATIVE (NEGATIVE); Leukocyte Esterase Urine NEGATIVE (NEGATIVE); Nitrite Urine NEGATIVE (NEGATIVE); Protein Urine NEGATIVE (NEG/TRACE); Urobilinogen Urine 0.2 EU/dL (0.2-1.0); pH Urine 7.5 (5.0-9.0)
[2023-10-01] MEDS: ONDANSETRON PF 4 MG/2 ML VIAL IV ×2 (17:58→22:10)
[2023-10-01 18:02] LABS: Bacteria Urine TRACE #/HPF (NONE SEEN); Cast Seen? NONE SEEN #/LPF (NONE SEEN); Crystals Seen? None Seen #/HPF (None Seen); Mucus Urine NONE SEEN (NONE SEEN); RBC Urine 0-2 #/HPF (0-2); Squamous Epithelial Cell Urine RARE #/LPF (NONE/RARE); WBC Urine NONE SEEN #/HPF (NONE SEEN)
[2023-10-01 18:07] LABS: Lymphocytes Absolute Manual 0.27 10^3/uL (1.20-3.80); Segmented Neut Absolute Manual 0.02 10^3/uL (1.4-6.5)
[2023-10-01] MEDS: PIPERACILLIN SODIUM/TAZOBACTAM 3.375 GM in 0.9 % SODIUM CHLORIDE 50 ML IV (18:47)
--- OUTSIDE RECORDS SUMMARY | 2023-10-01 19:30 | XMS_ITS | CCD ---
Author Name Unknown Address [address] [place] [address] [facility] Team Providers Care Burning Supervisor Name Role Phone WONDERCECELIA, MABEL Primary Care [...] Care Provider Saul DANG, Mike Joseph Unavailable [phone] Liz OLEARY, Dania Unavailable Unavailable Stacy OLEARY, Georgina Unavailable Brianna Pham MD Unavailable Sharmaine OLEARY, Sofya Unavailable Fidelina Dominguez Unavailable [phone] Liz OLEARY, Dania Unavailable Unavailable MELISSA PIERCE Attending Unavailable MIKE HUGHES Attending Unavailable WONDERCECELIA, [facility] Primary Care Unavailable MIKE HUGHES Attending Unavailable WONDERCECELAI, [facility] Primary Care Unavailable BRIANNA PHAM Attending Unavailable BISHOP, SHERRY Referring Unavailable WONDERLY, [facility] Primary Care Unavailable BISHOP, SHERRY Referring Unavailable WONDERLY, [facility] Primary Care Unavailable BISHOP, SHERRY Referring Unavailable WONDERLY, [facility] Primary Care Unavailable WONDERLY, [facility] Primary Care Unavailable KARLA BETH Referring Unavailable WONDERLY, [facility] Primary Care Unavailable LJ LIZ Attending Unavailable LJ LIZ Admitting Unavailable WONDERLY, [facility] Primary [facility] Unavailable CHARLENE MARTINEZ Attending Unavailable CHARLENE MARTINEZ Admitting Unavailable WONDERLY, [facility] Unavailable BETH ACOSTA Referring Unavailable HUGHES, AKRILYLA JOSEPH Referring Unavailable HUGHES, AKRITI JOSEPH Attending Unavailable WONDERLY, [facility] Care Unavailable HUGHES, AKRITI JOSEPH Referring Unavailable HUGHES, AKRITI JOSEPH Attending Unavailable WONDERLY, [facility] Care Unavailable HUGHES, AKRITI JOSEPH Attending Unavailable WONDERLY, [facility] Unavailable HUGHES, AKRITI JOSEPH Attending Unavailable WONDERLY, [facility] Unavailable ABDI CONTEH Referring Unavailable MARYZIAD S Attending Unavailable MARY, ZAID S Admitting Unavailable WONDERLY, [facility] Unavailable WONDERLY, [facility] Unavailable WONDERLY, [facility] Referring Unavailable SMITH HDEZ K Admitting Unavailabl e CINDI GONZALES Attending Unavailable BISHOP SHERRY Referring Unavailable HUGHES, AKRITI JOSEPH Attending Unavailable WONDERLY, [facility] Unavailable HUGHES, AKRITI JOSEPH Attending Unavailable WONDERLY, [facility] Unavailable Allergies Allergy Classification Reported Allergen(s) Allergy Type Date of Onset Reaction(s) Facility (20 sources) Acetaminophen / HYDROcodone; Translations: [HYDROCODONE-ACET AMINOPHEN] Drug Allergy 4 Other (See Comments), Mental Status Change [facility] (1 source) Acetaminophen / HYDROcodone; Translations: [Vicodin] Drug Allergy [facility] Repository Medications Current Medications Medication Drug Class(es) [...] on above: Take 1 capsule by mo [facility] once daily. OLANZapine 2.5 mg oral tablet [...] Test Name Value Interpretation Reference Range [facility] CNPNon 09-25-2023 CNPN Normal [facility] CNPNon 09-19-2023 CNPN Normal [facility] CNPNon 09-13-2023 CNPN Normal [facility] CNSWon 09-13-2023 CNSW Normal [facility] CNPNon 09-06-2023 CNPN Normal [facility] ACUTE LEUKEMIA NGS PANEL, ZEENAT NE MARROWon 08-30-2023 ACUTE LEUK NGS PANEL, BONE MARROW Normal [facility] Comment on above: Order Comment: Order ing Facility: [facility] Address: [address] [place] [address] Result Comment: Acut e Leukemia NGS Panel, Bone MarrowLaboratory Accession Number: [id number]:Please see linked document and/or separate report for full result whenavailable.As reviewed by Leslye Ha MD, PhD Performed By: #### F 3IKim, LEFTYNGS ####[facility] ILLUMINA LIMSCLIA [id number] [facility] [id number] [address] [place] AML MRD BY FCon 08-30-2023 AML MRD BY FC View results in Scan talia Documents link when available. Normal [facility] Comment on above: Order Comment: Speci men Type: BONE MARROW SPECIMENOrdering Facility: [facility] Address: [address] [place] [address] Performed By: #### A MLMRD ####[facility] MOLECULAR MICROCLIA [id number] [place] [address] BONE MARROW ANALYSISon 08-30 ADDENDUM 1: Normal [facility] Comment on above: Order Comment: Speci men Type: BONE MARROW SPECIMENOrdering Facility: [facility] Address: [address] [place] [address] Result Comment: Markus tional stains were performed [...] 4:58 PM Performed By: #### B MRT ####[facility] [id number] [address] ADDENDUM 2: Normal [facility] Comment on above: Order Comment: Speci men Type: BONE MARROW SPECIMENOrdering Facility: [facility] Address: [address] [place] [address] Result Comment: Stai ns were performed on both block B1, as described in the prior addendum, and block C1. The CD34 stain on block C1 shows increased staining, at least 10% of cellularity. The diagnosis remains unchanged.Addendum electronically signed by Phyllis Montanez MD, PhD on 09/05/2023 at 5:09 PM Performed By: #### B MRT ####[facility] [id number] [address] ADDENDUM 3: Normal [facility] Comment on above: Order Comment: Speci men Type: BONE MARROW SPECIMENOrdering Facility: [facility] Address: [address] [place] [address] Result Comment: Mole cular testing demonstrates the following mutations consistent with persistent involvement by the patient's known myeloid neoplasm. Flow cytometry MRD testing performed outside shows an abnormal myeloid blast population comprising ~6% of white cells.MZMC5Bn.R635W, NM_022552.4, c.1903C>TVAF: 17.3%RUNX1p.F40Wfs*14, NM_001754.4, c.119_173del55VAF: 9.4%TP53p.C238Y, NM_000546.5, c.713G>AVAF: 27.7%Addendum electronically signed by Phyllis Montanez MD, PhD on 09/10/2023 at 7:16 PM Performed By: #### B MRT ####[facility] LABCLIA [id number] [place] [address] [place] CASE REPORT Normal [facility] Comment on above: Order Comment: Speci men Type: BONE MARROW SPECIMENOrdering Facility: [facility] Address: [address] [place] [address] Result Comment: Bone Marrow Pathology Report Case: [id number] Provider: Mike Hughes MD Collected: 08/30/2023 09:12 AMOrdering Location: Hematology/Oncology Received: 08/30/2023 09:41 AMPathologist: Phyllis Montanez MD, PhDSpecimens: A) - BONE MARROW ASPIRATE RIGHT POSTERIOR ILIAC CREST B) - BONE MARROW BIOPSY RIGHT POSTERIOR ILIAC CREST C) - BONE MARROW CLOT RIGHT POSTERIOR ILIAC CREST Performed By: #### B MRT ####[facility] LABCLIA [id number] [place] [address] [place] DIAGNOSIS COMMENT Normal [facility] Comment on above: Order Comment: Rochellei luz Type: BONE MARROW SPECIMENOrdering Facility: [facility] Address: [address] [place] [address] Result Comment: The patient is a 68-year-old female with history of acute myeloid leukemia with mutated TP53, therapy-related ([facility] 2021), status post therapy.The findings are consistent with persistent involvement by the patient's known acute myeloid leukemia. Preliminary findings were discussed by phone with Dr. Hughes on 08/31/23. Please correlate with forthcoming stains and ancillary testing.Laboratory Developed Test (LDT) Disclaimer:Performance characteristics of immunohistochemical, immunofluorescent and chromogenic in-situ hybridization tests have been determined by the performing laboratory within [facility]???s [facility] [place] ([facility], [facility], [facility], [facility], [facility], Count Includes [facility], or [facility]) in a manner consistent with CLIA requirements. One or more of these tests have not been cleared or approved by the FDA. RT-PLMI is regulated under CLIA as qualified to perform high-complexity testing. These tests are used for clinical purposes. They should not be regarded as investigational or for research. Positive and negative controls stain appropriately. Performed By: #### B MRT ####[facility] LABCLIA [id number] [address] [place] FINAL DIAGNOSIS Normal [facility] Comment on above: Order Comment: Speci men Type: BONE MARROW SPECIMENOrdering Facility: [facility] Address: [address] [place] [address] Result Comment: A-C. Bone marrow aspirate smears, touch imprints, core biopsy and clot section:-Persistent involvement by acute myeloid leukemia, pending stains and ancillary testing.-See comment.[facility] [place], 2023 Performed By: #### B MRT ####[facility] LABIA [id number] [address] STATES OF [facility] FINAL PERFORMING LAB Normal [facility] Comment on above: Order Comment: Speci men Type: BONE MARROW SPECIMENOrdering Facility: [facility] Address: [address] [place] [address] Result Comment: Diag nostic interpretation performed at [facility], [address] [address] CLIA# [id number] Director: Boris Wood M.D. Performed By: #### B MRT ####[facility] LABIA [id number] [place] [address] [place] GROSS DESCRIPTION Normal [facility] Comment on above: Order Comment: Speci men Type: BONE MARROW SPECIMENOrdering Facility: [facility] Address: [address] [place] [address] Result Comment: A. B ONE MARROW ASPIRATE [...] submitted in one cassette.Gross examination performed at [facility], [facility] [address] August 30, 2023 6:48 PM Performed By: #### B MRT ####[facility] LABCLIA [id number] [facility] [id number] [place] MICROSCOPIC DESCRIPTION Normal [facility] Comment on above: Order Comment: Speci men Type: BONE MARROW SPECIMENOrdering Facility: [facility] Address: [address] [place] [address] Result Comment: GENNY PHERAL BLOOD: Not providedBONE [...] panel pending. Performed By: #### B MRT ####[facility] LABCLIA [id number] [place] [address] [place] BONE MARROW CHROMOSOME ANALo n 08-30-2023 CHROMOSOME BM Normal [facility] Comment on above: Order Comment: Order ing Facility: [facility] Address: [address] [place] [address] Result Comment: Edel knight Accession Number: [id number]: Avila MoorePathologist: Jeet Pathology No: [id number] diagnosis: AMLSpecimen Type: Bone MarrowReceived Date: 08/30/2023Number [...] recommended.As reviewed by Dilan Frazier, MDPerformed by St[facility] HospitalPathology and Laboratory Medicine InstituteDivision of Molecular PathologyCytogenetics Lab, [id number] [place], [place] [address]Phone: Toll free: Performed By: #### C HRBM ####[facility] KaesuSCLIA [id number] [place] [address] [place] BRIEF OP NOTon 08-30-2023 BRIEF OP NOT Normal [facility] CT ABD/PEL WO IVCONon 2022 CT ABD/PEL WO IVCON Normal [facility] CT BIOPSY BONE MARROW (HEMO) on 08-30-2023 CT BIOPSY BONE MARROW (HEMO) Normal [facility] CT CHEST WO IVCONon 08-30-20 CT CHEST WO IVCON Normal [facility] DNA EXTRACTION BONE MARROW ( BUFFY COAT)on 08-30-2023 DNA EXTRACTION BONE MARROW (BUFFY COAT) Normal [facility] Comment on above: Order Comment: Speci men Type: BONE MARROW SPECIMENOrdering Facility: [facility] Address: [address] [place] [address] Result Comment: This specimen was received and successfully processed for future DNA purification should molecular testing be needed. Specimens will be available for 3 years from date of collection.To order testing on this specimen for [facility] patients, please place an [facility] order for DNA and RNA Clinical Testing (SQNUCADD). To order testing for patients outside of the [facility] system, please request DNA and RNA for Clinical Testing, order code [id number].If additional paperwork is required for testing, please send completed forms via secure email to . Performed By: #### N UCBUF ####[facility] LIMSCLIA [id number] [place] [address] [place] FLOW CYTOMETRY FOR LEUKEMIA/ LYMPHOMA (FCLL) PERFORMABLEon 08-30-2023 FLOW CYTOMETRY ORDER STATUS See Results in chart under F case ID Normal [facility] Comment on above: Order Comment: Speci men Type: BONE MARROW SPECIMENOrdering Facility: [facility] Address: [address] [place] [address] Performed By: #### F CLLP, FCLLRFLX ####[facility] LABCLIA [id number] [place] [address] [place] FLOW CYTOMETRY FOR LEUKEMIA/ LYMPHOMA (FCLL) REFLEXon 08-30-2023 DIAGNOSIS COMMENT Normal [facility] Comment on above: Order Comment: Speci men Type: BONE MARROW SPECIMENOrdering Facility: [facility] Address: [address] [place] [address] Result Comment: This test was developed and its performance characteristics determined by [facility]'s [facility] [place] (RT-PLMI). It has not been cleared or approved by the FDA. RT-PLMI is regulated under CLIA as qualified to perform high-complexity testing. This test is used for clinical purposes. It should not be regarded as investigational or for research. Performed By: #### F CLLP, FCLLRFLX ####[facility] LABCLIA [id number] [address] [place] FINAL PERFORMING LAB Normal [facility] Comment on above: Order Comment: Speci men Type: BONE MARROW SPECIMENOrdering Facility: [facility] Address: [address] [place] [address] Result Comment: Diag nostic interpretation performed at [facility], [address] [address] CLIA# [id number] Director: Boris Wood M.D. Performed By: #### F CLLP, FCLLRFLX ####[facility] LABCLIA [id number] [address] [place] FLOW CYTOMETRY RESULTS Normal [facility] Comment on above: Order Comment: Speci men Type: BONE MARROW SPECIMENOrdering Facility: [facility] Address: [address] [place] [address] Result Comment: Spec imen type: Bone marrow aspirateViability: 96%Results: % total eventsLymphocyte gate: 66Granulocyte gate: 5Monocyte gate: 1Blast gate: 6Flow Cytometry Bone Marrow ImmunophenotypingMarker Normal Cell Type Result (Blasts)CD2 T/NK cells NegativeCD3 T-cells NegativeCD4 T-cell subset NegativeCD5 T-cells NegativeCD7 T/NK-cells Dim (subset)CD8 T-cell subset JiekhwtvBE50 B-cell subset UqrkjgigYG39t Myeloid IcgxinucGT53 Myeloid GyxceoocLK83 Monocytes RysbyamdBR97 Myeloid NszkorpuDR44 B-cells QdzjmdlnJC02 B-cells BwuusdaxOF60 B-cells DsgzgdglVY30 Myeloid NaabjcymAV38 Blasts EtzxsdvrFV84 Activation ZrlizldnPU45 Hough-leukocyte Positive (dim)CD56 T/NK-cells LhnxphupPV79 Myeloid ImozanxwYM04 Myeloid MkabfccoDT889 Blasts Positive (subset)HLA-DR B-cells Positivekappa/lambda B-cells NegativeFlow [...] assay. Performed By: #### F MER[place] ####[facility] LABCLIA [id number] [facility] [id number] [place] GROSS DESCRIPTION A. Bone Marrow Normal [facility] Comment on above: Order Comment: Speci men Type: BONE MARROW SPECIMENOrdering Facility: [facility] Address: [address] [place] [address] Result Comment: Rece ived 1 mL of bone marrow in heparin. Clots removed. Performed By: #### F CLLP, FCLLRFLX ####[facility] LABCLIA [id number] [place] [address] [place] INTERPRETATION Normal [facility] Comment on above: Order Comment: Speci men Type: BONE MARROW SPECIMENOrdering Facility: [facility] Address: [address] [place] [address] Result Comment: An i ncreased, atypical myeloid [...] 08/30/2023 Performed By: #### F CLLP, FCLLRFLX ####[facility] LABCLIA [id number] [place] [address] [place] FLT3 ITD HN BONE MARROWon CLARITY SIGNOUT PATHOLOGIST [id number] Normal [facility] Comment on above: Order Comment: Rochellei luz Type: BONE MARROW SPECIMENOrdering Facility: [facility] Address: [address] [place] [address] Performed By: #### F 3IM, HDMNGS ####[facility] ILLUMINA LIMSCLIA [id number] [place] [address] [place] FLT3 ITD HN PANEL BONE MARROW Normal [facility] Comment on above: Order Comment: Rochellei men Type: BONE MARROW SPECIMENOrdering Facility: [facility] Address: [address] [place] [address] Result Comment: FLT3 Internal Tandem Duplication (ITD) Mutation TestingLaboratory Accession Number: [id number] Internal Tandem Duplication (ITD) mutation: Not DetectedComment:FLT3/ITD [...] from the specimen provided. Regions of the FER1ifptsdlf kinase receptor gene are subjected to the [...] leukemia. N Engl J Med.2011Nov 22;366 (12):1079-89.3) Snadra H, Dee E, Sharon Vaughan, et al. Diagnosis and mangement ofAML in adults: 2017 ELN recommendations from an international expertpanel. Blood 129,424-448 (2017).Disclaimer:This test was developed and its performance characteristics determinedby [facility]'s [facility] Pathology [facility] LaboratoryMedicine [place] ([facility]ENTER[facility]). It has not been cleared or approved bythe FDA. RT-PLMI is regulated under CLIA as certified to perform high-complexity testing. This test is used for clinical purposes. It shouldnot be regarded as investigational or for research.Testing and interpretation performed at [facility], [address] [place] [address]. CLIA Number: [id number] reviewed by Mihaela Flowers MD Performed By: #### F 3IM, HDMNGS ####[facility] ILLUMINA LIMSCLIA [id number] [place] [address] [place] HISTORY PHYSICALon HISTORY PHYSICAL Normal [facility] NURSING PROGon 08-30-2023 NURSING PROG Normal [facility] PT EDon 08-30-2023 PT ED Normal [facility] CNPNon 08-22-2023 CNPN Normal [facility] NURSING PROGon 08-22-2023 NURSING PROG Normal [facility] CNPNon 08-20-2023 CNPN Normal [facility] CNCOon 08-15-2023 CNCO Clinical report post ed in error Void Comment: BMT CALENDAR Letter Text Letter Text Normal [facility] CNPNon 08-15-2023 CNPN Normal [facility] CNSWon 08-15-2023 CNSW Normal [facility] CNPNon 08-13-2023 CNPN Normal [facility] CNPNon 08-09-2023 CNPN Normal [facility] CNPNon 08-08-2023 CNPN Normal [facility] CNPNon 08-07-2023 CNPN Normal [facility] CNCOon 08-06-2023 CNCO Clinical report post ed in error Void Comment: HPC Transplant LMN Letter Text Letter Text Normal [facility] CNCO Letter Text Normal [facility] CASE MANAGEMon 07-18-2023 CASE MANAGEM Normal [facility] CBC W Auto Differential pane l (Bld)on 07-18-2023 Basophils (Bld) [#/Vol] Normal [facility] Comment on above: Order Comment: Speci men Type: BLOOD SPECIMENOrdering Facility: [facility] Address: [address] [place] [address] Result Comment: Too Few Cells To Do Differential. Performed By: #### 5 7021-8 ####[facility] LABCLIA [id number] [place] [address] [place] Basophils/100 WBC (Bld) Normal [facility] Comment on above: Order Comment: Speci men Type: BLOOD SPECIMENOrdering Facility: [facility] Address: [address] [place] [address] Result Comment: Too Few Cells To Do Differential. Performed By: #### 5 7021-8 ####[facility] LABCLIA [id number] [place] [address] [place] Differential cell count method Nom (Bld) Auto Normal [facility] Comment on above: Order Comment: Speci men Type: BLOOD SPECIMENOrdering Facility: [facility] Address: [address] [place] [address] Performed By: #### 5 7021-8 ####[facility] LABCLIA [id number] [place] [address] [place] Eosinophils (Bld) [#/Vol] Normal [facility] Comment on above: Order Comment: Speci men Type: BLOOD SPECIMENOrdering Facility: [facility] Address: [address] [place] [address] Result Comment: Too Few Cells To Do Differential. Performed By: #### 5 7021-8 ####[facility] LABCLIA [id number] [place] [address] [place] Eosinophils/100 WBC (Bld) Normal [facility] Comment on above: Order Comment: Speci men Type: BLOOD SPECIMENOrdering Facility: [facility] Address: [address] [place] [address] Result Comment: Too Few Cells To Do Differential. Performed By: #### 5 7021-8 ####[facility] LABCLIA [id number] [place] [address] [place] Erythrocyte distribution width (RBC) [Ratio] 15.8 % High 11.5-15.0 [facility] Comment on above: Order Comment: Speci men Type: BLOOD SPECIMENOrdering Facility: [facility] Address: [address] [place] [address] Performed By: #### 5 7021-8 ####[facility] LABCLIA [id number] [place] [address] [place] Hematocrit (Bld) [Volume fraction] 22.8 % Low 36.0-46.0 [facility] Comment on above: Order Comment: Speci men Type: BLOOD SPECIMENOrdering Facility: [facility] Address: [address] [place] [address] Performed By: #### 5 7021-8 ####[facility] LABCLIA [id number] [place] [address] [place] Hemoglobin (Bld) [Mass/Vol] 7.8 g/dL Low 11.5-15.5 [facility] Comment on above: Order Comment: Speci men Type: BLOOD SPECIMENOrdering Facility: [facility] Address: [address] [place] [address] Performed By: #### 5 7021-8 ####[facility] LABIA [id number] [place] [address] [place] Immature granulocytes (Bld) [#/Vol] Normal [facility] Comment on above: Order Comment: Speci men Type: BLOOD SPECIMENOrdering Facility: [facility] Address: [address] [place] [address] Result Comment: Too Few Cells To Do Differential. Performed By: #### 5 7021-8 ####[facility] LABCLIA [id number] [place] [address] [place] Immature granulocytes/100 WBC (Bld) Normal [facility] Comment on above: Order Comment: Speci men Type: BLOOD SPECIMENOrdering Facility: [facility] Address: [address] [place] [address] Result Comment: Too Few Cells To Do Differential. Performed By: #### 5 7021-8 ####[facility] LABCLIA [id number] [place] [address] [place] Lymphocytes (Bld) [#/Vol] Normal [facility] Comment on above: Order Comment: Speci men Type: BLOOD SPECIMENOrdering Facility: [facility] Address: [address] [place] [address] Result Comment: Too Few Cells To Do Differential. Performed By: #### 5 7021-8 ####[facility] LABCLIA [id number] [place] [address] [place] Lymphocytes/100 WBC (Bld) Normal [facility] Comment on above: Order Comment: Speci men Type: BLOOD SPECIMENOrdering Facility: [facility] Address: [address] [place] [address] Result Comment: Too Few Cells To Do Differential. Performed By: #### 5 7021-8 ####[facility] LABCLIA [id number] [place] [address] [place] MCH (RBC) [Entitic mass] 30.1 pg Normal 26.0-34.0 [facility] Comment on above: Order Comment: Speci men Type: BLOOD SPECIMENOrdering Facility: [facility] Address: [address] [place] [address] Performed By: #### 5 7021-8 ####[facility] LABCLIA [id number] [place] [address] [place] MCHC (RBC) [Mass/Vol] 34.2 g/dL Normal 30.5-36.0 [facility] Comment on above: Order Comment: Speci men Type: BLOOD SPECIMENOrdering Facility: [facility] Address: [address] [place] [address] Performed By: #### 5 7021-8 ####[facility] LABCLIA [id number] [place] [address] [place] MCV (RBC) [Entitic vol] 88.0 fL Normal 80.0-100.0 [facility] Comment on above: Order Comment: Speci men Type: BLOOD SPECIMENOrdering Facility: [facility] Address: [address] [place] [address] Performed By: #### 5 7021-8 ####[facility] LABCLIA [id number] [place] [address] [place] Monocytes (Bld) [#/Vol] Normal [facility] Comment on above: Order Comment: Speci men Type: BLOOD SPECIMENOrdering Facility: [facility] Address: [address] [place] [address] Result Comment: Too Few Cells To Do Differential. Performed By: #### 5 7021-8 ####[facility] LABCLIA [id number] [place] [address] [place] Monocytes/100 WBC (Bld) Normal [facility] Comment on above: Order Comment: Speci men Type: BLOOD SPECIMENOrdering Facility: [facility] Address: [address] [place] [address] Result Comment: Too Few Cells To Do Differential. Performed By: #### 5 7021-8 ####[facility] LABCLIA [id number] [place] [address] [place] Neutrophils (Bld) [#/Vol] Normal [facility] Comment on above: Order Comment: Speci men Type: BLOOD SPECIMENOrdering Facility: [facility] Address: [address] [place] [address] Result Comment: Too Few Cells To Do Differential. Performed By: #### 5 7021-8 ####[facility] LABCLIA [id number] [place] [address] [place] Neutrophils/100 WBC (Bld) Normal [facility] Comment on above: Order Comment: Speci men Type: BLOOD SPECIMENOrdering Facility: [facility] Address: [address] [place] [address] Result Comment: Too Few Cells To Do Differential. Performed By: #### 5 7021-8 ####[facility] LABCLIA [id number] [place] [address] [place] Nucleated RBC (Bld) [#/Vol] 10*3/uL Normal <0.01 [facility] Comment on above: Order Comment: Speci men Type: BLOOD SPECIMENOrdering Facility: [facility] Address: [address] [place] [address] Performed By: #### 5 7021-8 ####[facility] LABIA [id number] [place] [address] [place] Nucleated RBC/100 WBC (Bld) [Ratio] 0.0 /100 WBC Normal [facility] Comment on above: Order Comment: Speci men Type: BLOOD SPECIMENOrdering Facility: [facility] Address: [address] [place] [address] Performed By: #### 5 7021-8 ####[facility] LABIA [id number] [place] [address] [place] Platelet mean volume (Bld) [Entitic vol] Normal [facility] Comment on above: Order Comment: Speci men Type: BLOOD SPECIMENOrdering Facility: [facility] Address: [address] [place] [address] Result Comment: Unab le to Report. Performed By: #### 5 7021-8 ####[facility] LABIA [id number] [place] [address] [place] Platelets (Bld) [#/Vol] 18 10*3/uL Low 150-400 [facility] Comment on above: Order Comment: Speci men Type: BLOOD SPECIMENOrdering Facility: [facility] Address: [address] [place] [address] Result Comment: Resu lts checked and verified.No clot detected. Performed By: #### 5 7021-8 ####[facility] LABCLIA [id number] [place] [address] [place] RBC (Bld) [#/Vol] 2.59 10*6/uL Low 3.90-5.20 [facility] Comment on above: Order Comment: Speci men Type: BLOOD SPECIMENOrdering Facility: [facility] Address: [address] [place] [address] Performed By: #### 5 7021-8 ####[facility] LABCLIA [id number] [place] [address] [place] WBC (Bld) [#/Vol] 0.47 10*3/uL Low 3.70-11.00 [facility] Comment on above: Order Comment: Speci men Type: BLOOD SPECIMENOrdering Facility: [facility] Address: [address] [place] [address] Result Comment: No c lot detected. Too Few Cells To Do Differential Performed By: #### 5 7021-8 ####[facility] LABIA [id number] [place] [address] [place] CNCOon 07-18-2023 CNCO Letter Text Normal [facility] CNDSon 07-18-2023 CNDS Normal [facility] CONSULT PROGon 07-18-2023 CONSULT PROG Normal [facility] Comprehensive metabolic 2000 panelon 07-18-2023 Albumin [Mass/Vol] 2.3 g/dL Low 3.9-4.9 [facility] Comment on above: Order Comment: Speci men Type: BLOOD SPECIMENOrdering Facility: [facility] Address: [address] [place] [address] Performed By: #### 2 4323-8, 27997-6 ####[facility] LABCLIA [id number] [place] [address] [place] ALP [Catalytic activity/Vol] 50 U/L Normal 34-123 [facility] Comment on above: Order Comment: Speci men Type: BLOOD SPECIMENOrdering Facility: [facility] Address: [address] [place] [address] Performed By: #### 2 4322-8, ####[facility] LABCLIA [id number] [place] [id number] [place] ALT [Catalytic activity/Vol] 14 U/L Normal 7-38 [facility] Comment on above: Order Comment: Speci men Type: BLOOD SPECIMENOrdering Facility: [facility] Address: [address] [place] [address] Performed By: #### 2 8, ####[facility] LABCLIA [id number] [place] [address] [place] Anion gap [Moles/Vol] 8 mmol/L Low 9-18 [facility] Comment on above: Order Comment: Speci men Type: BLOOD SPECIMENOrdering Facility: [facility] Address: [address] [place] [address] Performed By: #### 2 4323-04, ####[facility] LABCLIA [id number] [place] [address] [place] AST [Catalytic activity/Vol] 14 U/L Normal 13-35 [facility] Comment on above: Order Comment: Speci men Type: BLOOD SPECIMENOrdering Facility: [facility] Address: [address] [place] [address] Performed By: #### 2 4322-8, ####[facility] LABCLIA [id number] [place] [address] [place] Bilirubin [Mass/Vol] 0.3 mg/dL Normal 0.2-1.3 [facility] Comment on above: Order Comment: Speci men Type: BLOOD SPECIMENOrdering Facility: [facility] Address: [address] [place] [address] Performed By: #### 2 4322-8, ####[facility] LABCLIA [id number] [address] [address] [place] Calcium [Mass/Vol] 7.2 mg/dL Low 8.5-10.2 [facility] Comment on above: Order Comment: Speci men Type: BLOOD SPECIMENOrdering Facility: [facility] Address: [address] [place] [address] Performed By: #### 2 4323-04, ####[facility] LABCLIA [id number] [place] [address] [place] Chloride [Moles/Vol] 110 mmol/L High 97-105 [facility] Comment on above: Order Comment: Speci men Type: BLOOD SPECIMENOrdering Facility: [facility] Address: [address] [place] [address] Performed By: #### 2 4323-04, ####[facility] LABCLIA [id number] [place] [address] [place] CO2 [Moles/Vol] 23 mmol/L Normal 22-30 [facility] Comment on above: Order Comment: Speci men Type: BLOOD SPECIMENOrdering Facility: [facility] Address: [address] [place] [address] Performed By: #### 2 4323-04, ####[facility] LABCLIA [id number] [place] [address] [place] Creatinine [Mass/Vol] 0.66 mg/dL Normal 0.58-0.96 [facility] Comment on above: Order Comment: Speci men Type: BLOOD SPECIMENOrdering Facility: [facility] Address: [address] [place] [address] Performed By: #### 2 43211-08, ####[facility] LABCLIA [id number] [place] [address] [place] Creatinine and Glomerular filtration rate.predicted panel (S/P/Bld) 95 mL/min/1.73m??? Normal >=60 [facility] Comment on above: Order Comment: Elvia escobar Type: BLOOD SPECIMENOrdering Facility: [facility] Address: [address] [place] [address] Result Comment: Berenice mated Glomerular Filtration Rate [...] actual GFR. Performed By: #### 2 4323-8, 96803-5 ####[facility] LABIA [id number] [place] [address] [place] Glucose [Mass/Vol] 85 mg/dL Normal 74-99 [facility] Comment on above: Order Comment: Elvia escobar Type: BLOOD SPECIMENOrdering Facility: [facility] Address: [address] [place] [address] Result Comment: The [place] [employer] (ADA) provides guidance for cutoff [...] Standards of Medical Care in Diabetes 2016, [place] [employer]. Diabetes Care. 2016.39(Suppl 1). Performed By: #### 2 4323-8, 43692-3 ####[facility] LABIA [id number] [place] [address] [place] Potassium [Moles/Vol] 2.9 mmol/L Low 3.7-5.1 [facility] Comment on above: Order Comment: Speci men Type: BLOOD SPECIMENOrdering Facility: [facility] Address: [address] [place] [address] Performed By: #### 2 4323-8, ####[facility] LABCLIA [id number] [place] [address] [place] Protein [Mass/Vol] 4.1 g/dL Low 6.3-8.0 [facility] Comment on above: Order Comment: Speci men Type: BLOOD SPECIMENOrdering Facility: [facility] Address: [address] [place] [address] Performed By: #### 2 432-8, ####[facility] LABCLIA [id number] [place] [address] [place] Sodium [Moles/Vol] 141 mmol/L Normal 136-144 [facility] Comment on above: Order Comment: Speci men Type: BLOOD SPECIMENOrdering Facility: [facility] Address: [address] [place] [address] Performed By: #### 2 4322-8, ####[facility] LABCLIA [id number] [place] [address] [place] Urea nitrogen [Mass/Vol] 5 mg/dL Low 7-21 [facility] Comment on above: Order Comment: Speci men Type: BLOOD SPECIMENOrdering Facility: [facility] Address: [address] [place] [address] Performed By: #### 2 4323-8, ####[facility] LABIA [id number] [place] [address] [place] Magnesium SerPl-mCncon 07-18 Magnesium [Mass/Vol] 1.9 mg/dL Normal 1.7-2.3 [facility] Comment on above: Order Comment: Speci men Type: BLOOD SPECIMENOrdering Facility: [facility] Address: [address] [place] [address] Performed By: #### 2 4323-8, 39483-3 ####[facility] LABCLIA [id number] [place] [address] [place] POTASSIUM BLDon 07-18-2023 Potassium [Moles/Vol] 4.0 mmol/L Normal 3.7-5.1 [facility] Comment on above: Order Comment: Speci men Type: BLOOD SPECIMENOrdering Facility: [facility] Address: [address] [place] [address] Performed By: #### K 1 ####[facility] LABCLIA [id number] [place] [address] [place] CASE MGT INIT ASSESon 2022 CASE MGT INIT ASSES Normal [facility] CASE MGT INIT ASSES Normal [facility] CBC W Auto Differential pane l (Bld)on 07-17-2023 Basophils (Bld) [#/Vol] Normal [facility] Comment on above: Order Comment: Speci men Type: BLOOD SPECIMENOrdering Facility: [facility] Address: [address] [place] [address] Result Comment: Too Few Cells To Do Differential. Performed By: #### 5 7021-8 ####[facility] LABCLIA [id number] [place] [address] [place] Basophils/100 WBC (Bld) Normal [facility] Comment on above: Order Comment: Speci men Type: BLOOD SPECIMENOrdering Facility: [facility] Address: [address] [place] [address] Result Comment: Too Few Cells To Do Differential. Performed By: #### 5 7021-8 ####[facility] LABCLIA [id number] [place] [address] [place] Differential cell count method Nom (Bld) Auto Normal [facility] Comment on above: Order Comment: Speci men Type: BLOOD SPECIMENOrdering Facility: [facility] Address: [address] [place] [address] Performed By: #### 5 7021-8 ####[facility] LABCLIA [id number] [place] [address] [place] Eosinophils (Bld) [#/Vol] Normal [facility] Comment on above: Order Comment: Speci men Type: BLOOD SPECIMENOrdering Facility: [facility] Address: [address] [place] [address] Result Comment: Too Few Cells To Do Differential. Performed By: #### 5 7021-8 ####[facility] LABCLIA [id number] [place] [address] [place] Eosinophils/100 WBC (Bld) Normal [facility] Comment on above: Order Comment: Speci men Type: BLOOD SPECIMENOrdering Facility: [facility] Address: [address] [place] [address] Result Comment: Too Few Cells To Do Differential. Performed By: #### 5 7021-8 ####[facility] LABCLIA [id number] [place] [address] [place] Erythrocyte distribution width (RBC) [Ratio] 15.9 % High 11.5-15.0 [facility] Comment on above: Order Comment: Speci men Type: BLOOD SPECIMENOrdering Facility: [facility] Address: [address] [place] [address] Performed By: #### 5 7021-8 ####[facility] LABCLIA [id number] [place] [address] [place] Hematocrit (Bld) [Volume fraction] 23.0 % Low 36.0-46.0 [facility] Comment on above: Order Comment: Speci men Type: BLOOD SPECIMENOrdering Facility: [facility] Address: [address] [place] [address] Performed By: #### 5 7021-8 ####[facility] LABCLIA [id number] [place] [address] [place] Hemoglobin (Bld) [Mass/Vol] 7.9 g/dL Low 11.5-15.5 [facility] Comment on above: Order Comment: Speci men Type: BLOOD SPECIMENOrdering Facility: [facility] Address: [address] [place] [address] Performed By: #### 5 7021-8 ####[facility] LABCLIA [id number] [place] [address] [place] Immature granulocytes (Bld) [#/Vol] Normal [facility] Comment on above: Order Comment: Speci men Type: BLOOD SPECIMENOrdering Facility: [facility] Address: [address] [place] [address] Result Comment: Too Few Cells To Do Differential. Performed By: #### 5 7021-8 ####[facility] LABCLIA [id number] [place] [address] [place] Immature granulocytes/100 WBC (Bld) Normal [facility] Comment on above: Order Comment: Speci men Type: BLOOD SPECIMENOrdering Facility: [facility] Address: [address] [place] [address] Result Comment: Too Few Cells To Do Differential. Performed By: #### 5 7021-8 ####[facility] LABCLIA [id number] [place] [address] [place] Lymphocytes (Bld) [#/Vol] Normal [facility] Comment on above: Order Comment: Speci men Type: BLOOD SPECIMENOrdering Facility: [facility] Address: [address] [place] [address] Result Comment: Too Few Cells To Do Differential. Performed By: #### 5 7021-8 ####[facility] LABCLIA [id number] [place] [address] [place] Lymphocytes/100 WBC (Bld) Normal [facility] Comment on above: Order Comment: Speci men Type: BLOOD SPECIMENOrdering Facility: [facility] Address: [address] [place] [address] Result Comment: Too Few Cells To Do Differential. Performed By: #### 5 7021-8 ####[facility] LABIA [id number] [place] [address] [place] MCH (RBC) [Entitic mass] 29.9 pg Normal 26.0-34.0 [facility] Comment on above: Order Comment: Speci men Type: BLOOD SPECIMENOrdering Facility: [facility] Address: [address] [place] [address] Performed By: #### 5 7021-8 ####[facility] LABIA [id number] [place] [address] [place] MCHC (RBC) [Mass/Vol] 34.3 g/dL Normal 30.5-36.0 [facility] Comment on above: Order Comment: Speci men Type: BLOOD SPECIMENOrdering Facility: [facility] Address: [address] [place] [address] Performed By: #### 5 7021-8 ####[facility] LABIA [id number] [place] [address] [place] MCV (RBC) [Entitic vol] 87.1 fL Normal 80.0-100.0 [facility] Comment on above: Order Comment: Speci men Type: BLOOD SPECIMENOrdering Facility: [facility] Address: [address] [place] [address] Performed By: #### 5 7021-8 ####[facility] LABIA [id number] [place] [address] [place] Monocytes (Bld) [#/Vol] Normal [facility] Comment on above: Order Comment: Speci men Type: BLOOD SPECIMENOrdering Facility: [facility] Address: [address] [place] [address] Result Comment: Too Few Cells To Do Differential. Performed By: #### 5 7021-8 ####[facility] LABIA [id number] [place] [address] [place] Monocytes/100 WBC (Bld) Normal [facility] Comment on above: Order Comment: Speci men Type: BLOOD SPECIMENOrdering Facility: [facility] Address: [address] [place] [address] Result Comment: Too Few Cells To Do Differential. Performed By: #### 5 7021-8 ####[facility] LABCLIA [id number] [place] [address] [place] Neutrophils (Bld) [#/Vol] Normal [facility] Comment on above: Order Comment: Speci men Type: BLOOD SPECIMENOrdering Facility: [facility] Address: [address] [place] [address] Result Comment: Too Few Cells To Do Differential. Performed By: #### 5 7021-8 ####[facility] LABCLIA [id number] [place] [address] [place] Neutrophils/100 WBC (Bld) Normal [facility] Comment on above: Order Comment: Speci men Type: BLOOD SPECIMENOrdering Facility: [facility] Address: [address] [place] [address] Result Comment: Too Few Cells To Do Differential. Performed By: #### 5 7021-8 ####[facility] LABCLIA [id number] [place] [address] [place] Nucleated RBC (Bld) [#/Vol] 10*3/uL Normal <0.01 [facility] Comment on above: Order Comment: Speci men Type: BLOOD SPECIMENOrdering Facility: [facility] Address: [address] [place] [address] Performed By: #### 5 7021-8 ####[facility] LABCLIA [id number] [place] [address] [place] Nucleated RBC/100 WBC (Bld) [Ratio] 0.0 /100 WBC Normal [facility] Comment on above: Order Comment: Speci men Type: BLOOD SPECIMENOrdering Facility: [facility] Address: [address] [place] [address] Performed By: #### 5 7021-8 ####[facility] LABIA [id number] [place] [address] [place] Platelet mean volume (Bld) [Entitic vol] Normal [facility] Comment on above: Order Comment: Speci men Type: BLOOD SPECIMENOrdering Facility: [facility] Address: [address] [place] [address] Result Comment: Unab le to Report. Performed By: #### 5 7021-8 ####[facility] [id number] [place] [address] [place] Platelets (Bld) [#/Vol] 8 10*3/uL Critically low 150-400 [facility] Comment on above: Order Comment: Speci men Type: BLOOD SPECIMENOrdering Facility: [facility] Address: [address] [place] [address] Result Comment: Resu lts checked and verified.No clot detected. Performed By: #### 5 7021-8 ####[facility] [id number] [place] [address] [place] RBC (Bld) [#/Vol] 2.64 10*6/uL Low 3.90-5.20 [facility] Comment on above: Order Comment: Speci men Type: BLOOD SPECIMENOrdering Facility: [facility] Address: [address] [place] [address] Performed By: #### 5 7021-8 ####[facility] [id number] [place] [address] [place] WBC (Bld) [#/Vol] 0.48 10*3/uL Low 3.70-11.00 [facility] Comment on above: Order Comment: Speci men Type: BLOOD SPECIMENOrdering Facility: [facility] Address: [address] [place] [address] Result Comment: Resu lts checked and verified.No clot detected. Too Few Cells To Do Differential Performed By: #### 5 7021-8 ####[facility] LABCLIA [id number] [address] [address] [place] Comprehensive metabolic 2000 panelon 07-17-2023 Albumin [Mass/Vol] 2.3 g/dL Low 3.9-4.9 [facility] Comment on above: Order Comment: Speci men Type: BLOOD SPECIMENOrdering Facility: [facility] Address: [address] [place] [address] Performed By: #### 2 432-8, ####[facility] LABCLIA [id number] [place] [address] [place] ALP [Catalytic activity/Vol] 61 U/L Normal 34-123 [facility] Comment on above: Order Comment: Speci men Type: BLOOD SPECIMENOrdering Facility: [facility] Address: [address] [place] [address] Performed By: #### 2 432-8, ####[facility] LABCLIA [id number] [place] [address] [place] ALT [Catalytic activity/Vol] 15 U/L Normal 7-38 [facility] Comment on above: Order Comment: Speci men Type: BLOOD SPECIMENOrdering Facility: [facility] Address: [address] [place] [id number] Performed By: #### 2 4328, ####[facility] LABCLIA [id number] [address] [address] [place] Anion gap [Moles/Vol] 11 mmol/L Normal 9-18 [facility] Comment on above: Order Comment: Speci men Type: BLOOD SPECIMENOrdering Facility: [facility] Address: [address] [place] [id number] Performed By: #### 2 4323-8, ####[facility] LABCLIA [id number] [place] [address] [place] AST [Catalytic activity/Vol] 15 U/L Normal 13-35 [facility] Comment on above: Order Comment: Speci men Type: BLOOD SPECIMENOrdering Facility: [facility] Address: [address] [place] [address] Performed By: #### 2 4323-8, ####[facility] LABCLIA [id number] [place] [address] [place] Bilirubin [Mass/Vol] 0.6 mg/dL Normal 0.2-1.3 [facility] Comment on above: Order Comment: Speci men Type: BLOOD SPECIMENOrdering Facility: [facility] Address: [address] [place] [address] Performed By: #### 2 432-8, ####[facility] LABCLIA [id number] [place] [address] [place] Calcium [Mass/Vol] 8.1 mg/dL Low 8.5-10.2 [facility] Comment on above: Order Comment: Speci men Type: BLOOD SPECIMENOrdering Facility: [facility] Address: [address] [place] [address] Performed By: #### 2 4323-8, ####[facility] LABCLIA [id number] [place] [address] [place] Chloride [Moles/Vol] 106 mmol/L High 97-105 [facility] Comment on above: Order Comment: Speci men Type: BLOOD SPECIMENOrdering Facility: [facility] Address: [address] [place] [address] Performed By: #### 2 4323-8, ####[facility] LABCLIA [id number] [place] [address] [place] CO2 [Moles/Vol] 21 mmol/L Low 22-30 [facility] Comment on above: Order Comment: Speci men Type: BLOOD SPECIMENOrdering Facility: [facility] Address: [address] [place] [address] Performed By: #### 2 4323-8, ####[facility] LABIA [id number] [address] [address] [place] Creatinine [Mass/Vol] 0.78 mg/dL Normal 0.58-0.96 [facility] Comment on above: Order Comment: Speci men Type: BLOOD SPECIMENOrdering Facility: [facility] Address: [address] [place] [address] Performed By: #### 2 4323-8, ####[facility] LABIA [id number] [place] [address] [place] Creatinine and Glomerular filtration rate.predicted panel (S/P/Bld) 82 mL/min/1.73m??? Normal >=60 [facility] Comment on above: Order Comment: Speci men Type: BLOOD SPECIMENOrdering Facility: [facility] Address: [address] [place] [address] Result Comment: Berenice mated Glomerular Filtration Rate [...] actual GFR. Performed By: #### 2 4323-8, ####[facility] LABIA [id number] [place] [id number] [place] Glucose [Mass/Vol] 104 mg/dL High 74-99 [facility] Comment on above: Order Comment: Speci men Type: BLOOD SPECIMENOrdering Facility: [facility] Address: [address] [place] [address] Result Comment: The [place] Diabetes [employer] (ADA) provides guidance for cutoff [...] Standards of Medical Care in Diabetes 2016, [place] [employer]. Diabetes Care. 2016.39(Suppl 1). Performed By: #### 2 43211-08, ####[facility] LABCLIA [id number] [place] [address] [place] Potassium [Moles/Vol] 3.5 mmol/L Low 3.7-5.1 [facility] Comment on above: Order Comment: Speci men Type: BLOOD SPECIMENOrdering Facility: [facility] Address: [address] [place] [address] Performed By: #### 2 4323-04, ####[facility] LABCLIA [id number] [place] [address] [place] Protein [Mass/Vol] 4.5 g/dL Low 6.3-8.0 [facility] Comment on above: Order Comment: Speci men Type: BLOOD SPECIMENOrdering Facility: [facility] Address: [address] [place] [address] Performed By: #### 2 4323-04, ####[facility] LABCLIA [id number] [place] [id number] [place] Sodium [Moles/Vol] 138 mmol/L Normal 136-144 [facility] Comment on above: Order Comment: Speci men Type: BLOOD SPECIMENOrdering Facility: [facility] Address: [address] [place] [address] Performed By: #### 2 4323-04, ####[facility] LABCLIA [id number] [place] [address] [place] Urea nitrogen [Mass/Vol] 7 mg/dL Normal 7-21 [facility] Comment on above: Order Comment: Speci men Type: BLOOD SPECIMENOrdering Facility: [facility] Address: [address] [place] [address] Performed By: #### 2 4323-8, 10758-6 ####[facility] LABIA [id number] [place] [address] [place] Magnesium SerPl-mCncon 07-17 Magnesium [Mass/Vol] 2.0 mg/dL Normal 1.7-2.3 [facility] Comment on above: Order Comment: Speci men Type: BLOOD SPECIMENOrdering Facility: [facility] Address: [address] [place] [address] Performed By: #### 2 4323-8, 49627-3 ####[facility] [id number] [place] [address] [place] SOCIAL WORKon 07-17-2023 SOCIAL WORK Normal [facility] THERAPY NTon 07-17-2023 THERAPY NT Normal [facility] CBC W Auto Differential pane l (Bld)on 07-16-2023 Basophils (Bld) [#/Vol] Normal [facility] Comment on above: Order Comment: Speci men Type: BLOOD SPECIMENOrdering Facility: [facility] Address: [address] [place] [address] Result Comment: Too Few Cells To Do Differential. Performed By: #### 5 7021-8 ####[facility] LABIA [id number] [place] [address] [place] Basophils/100 WBC (Bld) Normal [facility] Comment on above: Order Comment: Speci men Type: BLOOD SPECIMENOrdering Facility: [facility] Address: [address] [place] [address] Result Comment: Too Few Cells To Do Differential. Performed By: #### 5 7021-8 ####[facility] LABCLIA [id number] [place] [address] [place] Differential cell count method Nom (Bld) Auto Normal [facility] Comment on above: Order Comment: Speci men Type: BLOOD SPECIMENOrdering Facility: [facility] Address: [address] [place] [address] Performed By: #### 5 7021-8 ####[facility] LABCLIA [id number] [place] [address] [place] Eosinophils (Bld) [#/Vol] Normal [facility] Comment on above: Order Comment: Speci men Type: BLOOD SPECIMENOrdering Facility: [facility] Address: [address] [place] [address] Result Comment: Too Few Cells To Do Differential. Performed By: #### 5 7021-8 ####[facility] LABCLIA [id number] [place] [address] [place] Eosinophils/100 WBC (Bld) Normal [facility] Comment on above: Order Comment: Speci men Type: BLOOD SPECIMENOrdering Facility: [facility] Address: [address] [place] [address] Result Comment: Too Few Cells To Do Differential. Performed By: #### 5 7021-8 ####[facility] LABCLIA [id number] [place] [address] [place] Erythrocyte distribution width (RBC) [Ratio] 14.8 % Normal 11.5-15.0 [facility] Comment on above: Order Comment: Speci men Type: BLOOD SPECIMENOrdering Facility: [facility] Address: [address] [place] [address] Performed By: #### 5 7021-8 ####[facility] LABCLIA [id number] [place] [address] [place] Hematocrit (Bld) [Volume fraction] 20.0 % Low 36.0-46.0 [facility] Comment on above: Order Comment: Speci men Type: BLOOD SPECIMENOrdering Facility: [facility] Address: [address] [place] [address] Performed By: #### 5 7021-8 ####[facility] LABCLIA [id number] [place] [address] [place] Hemoglobin (Bld) [Mass/Vol] 6.9 g/dL Low 11.5-15.5 [facility] Comment on above: Order Comment: Speci men Type: BLOOD SPECIMENOrdering Facility: [facility] Address: [address] [place] [address] Performed By: #### 5 7021-8 ####[facility] LABIA [id number] [place] [address] [place] Immature granulocytes (Bld) [#/Vol] Normal [facility] Comment on above: Order Comment: Speci men Type: BLOOD SPECIMENOrdering Facility: [facility] Address: [address] [place] [address] Result Comment: Too Few Cells To Do Differential. Performed By: #### 5 7021-8 ####[facility] LABIA [id number] [place] [address] [place] Immature granulocytes/100 WBC (Bld) Normal [facility] Comment on above: Order Comment: Speci men Type: BLOOD SPECIMENOrdering Facility: [facility] Address: [address] [place] [address] Result Comment: Too Few Cells To Do Differential. Performed By: #### 5 7021-8 ####[facility] LABIA [id number] [place] [address] [place] Lymphocytes (Bld) [#/Vol] Normal [facility] Comment on above: Order Comment: Speci men Type: BLOOD SPECIMENOrdering Facility: [facility] Address: [address] [place] [address] Result Comment: Too Few Cells To Do Differential. Performed By: #### 5 7021-8 ####[facility] LABCLIA [id number] [place] [address] [place] Lymphocytes/100 WBC (Bld) Normal [facility] Comment on above: Order Comment: Speci men Type: BLOOD SPECIMENOrdering Facility: [facility] Address: [address] [place] [address] Result Comment: Too Few Cells To Do Differential. Performed By: #### 5 7021-8 ####[facility] LABIA [id number] [place] [address] [place] MCH (RBC) [Entitic mass] 30.4 pg Normal 26.0-34.0 [facility] Comment on above: Order Comment: Speci men Type: BLOOD SPECIMENOrdering Facility: [facility] Address: [address] [place] [address] Performed By: #### 5 7021-8 ####[facility] LABIA [id number] [place] [address] [place] MCHC (RBC) [Mass/Vol] 34.5 g/dL Normal 30.5-36.0 [facility] Comment on above: Order Comment: Speci men Type: BLOOD SPECIMENOrdering Facility: [facility] Address: [address] [place] [address] Performed By: #### 5 7021-8 ####[facility] LABIA [id number] [place] [address] [place] MCV (RBC) [Entitic vol] 88.1 fL Normal 80.0-100.0 [facility] Comment on above: Order Comment: Speci men Type: BLOOD SPECIMENOrdering Facility: [facility] Address: [address] [place] [address] Performed By: #### 5 7021-8 ####[facility] LABIA [id number] [place] [address] [place] Monocytes (Bld) [#/Vol] Normal [facility] Comment on above: Order Comment: Speci men Type: BLOOD SPECIMENOrdering Facility: [facility] Address: [address] [place] [address] Result Comment: Too Few Cells To Do Differential. Performed By: #### 5 7021-8 ####[facility] LABCLIA [id number] [place] [address] [place] Monocytes/100 WBC (Bld) Normal [facility] Comment on above: Order Comment: Speci men Type: BLOOD SPECIMENOrdering Facility: [facility] Address: [address] [place] [address] Result Comment: Too Few Cells To Do Differential. Performed By: #### 5 7021-8 ####[facility] LABCLIA [id number] [place] [address] [place] Neutrophils (Bld) [#/Vol] Normal [facility] Comment on above: Order Comment: Speci men Type: BLOOD SPECIMENOrdering Facility: [facility] Address: [address] [place] [address] Result Comment: Too Few Cells To Do Differential. Performed By: #### 5 7021-8 ####[facility] LABCLIA [id number] [place] [address] [place] Neutrophils/100 WBC (Bld) Normal [facility] Comment on above: Order Comment: Speci men Type: BLOOD SPECIMENOrdering Facility: [facility] Address: [address] [place] [address] Result Comment: Too Few Cells To Do Differential. Performed By: #### 5 7021-8 ####[facility] LABCLIA [id number] [place] [address] [place] Nucleated RBC (Bld) [#/Vol] 10*3/uL Normal <0.01 [facility] Comment on above: Order Comment: Speci men Type: BLOOD SPECIMENOrdering Facility: [facility] Address: [address] [place] [address] Performed By: #### 5 7021-8 ####[facility] LABCLIA [id number] [place] [address] [place] Nucleated RBC/100 WBC (Bld) [Ratio] 0.0 /100 WBC Normal [facility] Comment on above: Order Comment: Speci men Type: BLOOD SPECIMENOrdering Facility: [facility] Address: [address] [place] [address] Performed By: #### 5 7021-8 ####[facility] LABIA [id number] [place] [address] [place] Platelet mean volume (Bld) [Entitic vol] Normal [facility] Comment on above: Order Comment: Speci men Type: BLOOD SPECIMENOrdering Facility: [facility] Address: [address] [place] [address] Result Comment: Unab le to Report. Performed By: #### 5 7021-8 ####[facility] LABIA [id number] [place] [address] [place] Platelets (Bld) [#/Vol] 10 10*3/uL Low 150-400 [facility] Comment on above: Order Comment: Speci men Type: BLOOD SPECIMENOrdering Facility: [facility] Address: [address] [place] [address] Result Comment: No c lot detected.Results checked and verified. Performed By: #### 5 7021-8 ####[facility] LABIA [id number] [place] [address] [place] RBC (Bld) [#/Vol] 2.27 10*6/uL Low 3.90-5.20 [facility] Comment on above: Order Comment: Speci men Type: BLOOD SPECIMENOrdering Facility: [facility] Address: [address] [place] [address] Performed By: #### 5 7021-8 ####[facility] LABIA [id number] [id number] [address] [place] WBC (Bld) [#/Vol] 0.38 10*3/uL Low 3.70-11.00 [facility] Comment on above: Order Comment: Speci men Type: BLOOD SPECIMENOrdering Facility: [facility] Address: [address] [place] [address] Result Comment: No c lot detected. Too Few Cells To Do Differential Performed By: #### 5 7021-8 ####[facility] LABCLIA [id number] [place] [address] [place] [facility] Comprehensive metabolic 2000 panelon 07-16-2023 Albumin [Mass/Vol] 2.5 g/dL Low 3.9-4.9 [facility] Comment on above: Order Comment: Speci men Type: BLOOD SPECIMENOrdering Facility: [facility] Address: [address] [place] [address] Performed By: #### 2 4323-8, ####[facility] LABCLIA [id number] [place] [address] [place] ALP [Catalytic activity/Vol] 60 U/L Normal 34-123 [facility] Comment on above: Order Comment: Speci men Type: BLOOD SPECIMENOrdering Facility: [facility] Address: [address] [place] [address] Performed By: #### 2 4323-8, 18354-4 ####[facility] LABCLIA [id number] [place] [address] [place] ALT [Catalytic activity/Vol] 12 U/L Normal 7-38 [facility] Comment on above: Order Comment: Speci men Type: BLOOD SPECIMENOrdering Facility: [facility] Address: [address] [place] [address] Performed By: #### 2 4323-8, ####[facility] LABCLIA [id number] [place] [address] [place] Anion gap [Moles/Vol] 9 mmol/L Normal 9-18 [facility] Comment on above: Order Comment: Speci men Type: BLOOD SPECIMENOrdering Facility: [facility] Address: [address] [place] [address] Performed By: #### 2 432-8, ####[facility] LABCLIA [id number] [place] [address] [place] AST [Catalytic activity/Vol] 12 U/L Low 13-35 [facility] Comment on above: Order Comment: Speci men Type: BLOOD SPECIMENOrdering Facility: [facility] Address: [address] [place] [address] Performed By: #### 2 432-8, ####[facility] LABCLIA [id number] [place] [address] [place] Bilirubin [Mass/Vol] 0.5 mg/dL Normal 0.2-1.3 [facility] Comment on above: Order Comment: Speci men Type: BLOOD SPECIMENOrdering Facility: [facility] Address: [address] [place] [address] Performed By: #### 2 432-8, ####[facility] LABCLIA [id number] [place] [address] [place] Calcium [Mass/Vol] 7.8 mg/dL Low 8.5-10.2 [facility] Comment on above: Order Comment: Speci men Type: BLOOD SPECIMENOrdering Facility: [facility] Address: [address] [place] [address] Performed By: #### 2 4323-8, ####[facility] LABCLIA [id number] [place] [address] [place] Chloride [Moles/Vol] 105 mmol/L Normal 97-105 [facility] Comment on above: Order Comment: Speci men Type: BLOOD SPECIMENOrdering Facility: [facility] Address: [address] [place] [address] Performed By: #### 2 4323-8, ####[facility] LABCLIA [id number] [place] [address] [place] CO2 [Moles/Vol] 23 mmol/L Normal 22-30 [facility] Comment on above: Order Comment: Speci men Type: BLOOD SPECIMENOrdering Facility: [facility] Address: [address] [place] [address] Performed By: #### 2 43211-08, ####[facility] LABCLIA [id number] [place] [address] [place] Creatinine [Mass/Vol] 0.79 mg/dL Normal 0.58-0.96 [facility] Comment on above: Order Comment: Speci men Type: BLOOD SPECIMENOrdering Facility: [facility] Address: [address] [place] [address] Performed By: #### 2 43211-08, ####[facility] LABIA [id number] [place] [address] [place] Creatinine and Glomerular filtration rate.predicted panel (S/P/Bld) 81 mL/min/1.73m??? Normal >=60 [facility] Comment on above: Order Comment: Speci men Type: BLOOD SPECIMENOrdering Facility: [facility] Address: [address] [place] [address] Result Comment: Berenice mated Glomerular Filtration Rate [...] actual GFR. Performed By: #### 2 4323-8, ####[facility] LABCLIA [id number] [place] [id number] [place] Glucose [Mass/Vol] 96 mg/dL Normal 74-99 [facility] Comment on above: Order Comment: Speci men Type: BLOOD SPECIMENOrdering Facility: [facility] Address: [address] [place] [address] Result Comment: The [place] [employer] (ADA) provides guidance for cutoff [...] Standards of Medical Care in Diabetes 2016, [place] [employer]. Diabetes Care. 2016.39(Suppl 1). Performed By: #### 2 4323-8, ####[facility]IA [id number] [place] [address] [place] Potassium [Moles/Vol] 3.2 mmol/L Low 3.7-5.1 [facility] Comment on above: Order Comment: Rochellei men Type: BLOOD SPECIMENOrdering Facility: [facility] Address: [address] [place] [address] Performed By: #### 2 4323-8, ####[facility] LABIA [id number] [place] [address] [place] Protein [Mass/Vol] 4.5 g/dL Low 6.3-8.0 [facility] Comment on above: Order Comment: Speci men Type: BLOOD SPECIMENOrdering Facility: [facility] Address: [address] [place] [address] Performed By: #### 2 43238, ####[facility] LABCLIA [id number] [place] [address] [place] Sodium [Moles/Vol] 137 mmol/L Normal 136-144 [facility] Comment on above: Order Comment: Speci men Type: BLOOD SPECIMENOrdering Facility: [facility] Address: [address] [place] [address] Performed By: #### 2 4323-8, ####[facility] LABCLIA [id number] [place] [address] [place] Urea nitrogen [Mass/Vol] 9 mg/dL Normal 7-21 [facility] Comment on above: Order Comment: Speci men Type: BLOOD SPECIMENOrdering Facility: [facility] Address: [address] [place] [address] Performed By: #### 2 4323-8, ####[facility] LABCLIA [id number] [place] [address] [place] Gastrointestinal pathogens p jordan KIAH+probe (Stl)on 07-16-2023 ADENOVIRUS F 40/41 Not detected Normal Not Detected [facility] Comment on above: Order Comment: Speci men Type: STOOL SPECIMENOrdering Facility: [facility] Address: [address] [place] [address] Performed By: #### 7 9381-0 ####[facility]IA [id number] [place] [address] [place] ASTROVIRUS Not detected Normal Not Detected [facility] Comment on above: Order Comment: Speci men Type: STOOL SPECIMENOrdering Facility: [facility] Address: [address] [place] [address] Performed By: #### 7 9381-0 ####[facility]IA [id number] [place] [address] [place] C. cayetanensis DNA KIAH+probe Ql (Unsp spec) Not detected Normal Not Detected [facility] Comment on above: Order Comment: Speci men Type: STOOL SPECIMENOrdering Facility: [facility] Address: [address] [place] [address] Performed By: #### 7 9381-0 ####[facility]CLIA [id number] [place] [address] [place] Campylobacter sp DNA.diarrheagenic KIAH+probe Ql (Stl) Not detected Normal Not Detected [facility] Comment on above: Order Comment: Speci men Type: STOOL SPECIMENOrdering Facility: [facility] Address: [address] [place] [address] Performed By: #### 7 9381-0 ####[facility]CLIA [id number] [place] [address] [place] Cryptosporidium sp DNA KIAH+probe Ql (Unsp spec) Not detected Normal Not detected [facility] Comment on above: Order Comment: Speci men Type: STOOL SPECIMENOrdering Facility: [facility] Address: [address] [place] [address] Performed By: #### 7 9381-0 ####[facility]CLIA [id number] [place] [address] [place] E. COLI (EAEC) Not detected Normal Not Detected [facility] Comment on above: Order Comment: Speci men Type: STOOL SPECIMENOrdering Facility: [facility] Address: [address] [place] [address] Performed By: #### 7 9381-0 ####[facility]CLIA [id number] [place] [address] [place] E. COLI (EPEC) Not detected Normal Not Detected [facility] Comment on above: Order Comment: Speci men Type: STOOL SPECIMENOrdering Facility: [facility] Address: [address] [place] [address] Performed By: #### 7 9381-0 ####[facility]CLIA [id number] [place] [address] [place] E. COLI (ETEC) Not detected Normal Not Detected [facility] Comment on above: Order Comment: Speci men Type: STOOL SPECIMENOrdering Facility: [facility] Address: [address] [place] [address] Performed By: #### 7 9381-0 ####[facility]CLIA [id number] [place] [address] [place] E. COLI (STEC) Not detected Normal Not Detected [facility] Comment on above: Order Comment: Speci men Type: STOOL SPECIMENOrdering Facility: [facility] Address: [address] [place] [address] Performed By: #### 7 9381-0 ####[facility]CLIA [id number] [place] [address] [place] E. coli O157:H7 DNA KIAH+probe Ql (Unsp spec) Not Applicable Normal Not Detected [facility] Comment on above: Order Comment: Speci men Type: STOOL SPECIMENOrdering Facility: [facility] Address: [address] [place] [address] Performed By: #### 7 9381-0 ####[facility]CLIA [id number] [place] [address] [place] E. histolytica DNA KIAH+probe Ql (Unsp spec) Not detected Normal Not Detected [facility] Comment on above: Order Comment: Speci men Type: STOOL SPECIMENOrdering Facility: [facility] Address: [address] [place] [address] Performed By: #### 7 9381-0 ####[facility] LABCLIA [id number] [place] [address] [place] G. lamblia DNA KIAH+probe Ql (Unsp spec) Not detected Normal Not Detected [facility] Comment on above: Order Comment: Speci men Type: STOOL SPECIMENOrdering Facility: [facility] Address: [address] [place] [address] Performed By: #### 7 9381-0 ####[facility]CLIA [id number] [place] [address] [place] NOROVIRUS GI/GII Not detected Normal Not Detected [facility] Comment on above: Order Comment: Speci men Type: STOOL SPECIMENOrdering Facility: [facility] Address: [address] [place] [address] Performed By: #### 7 9381-0 ####[facility] LABCLIA [id number] [place] [address] [place] PLESIOMONAS SHIGELLOIDES Not detected Normal Not Detected [facility] Comment on above: Order Comment: Speci men Type: STOOL SPECIMENOrdering Facility: [facility] Address: [address] [place] [address] Performed By: #### 7 9381-0 ####[facility] LABCLIA [id number] [place] [address] [place] ROTOVIRUS A Not detected Normal Not Detected [facility] Comment on above: Order Comment: Speci men Type: STOOL SPECIMENOrdering Facility: [facility] Address: [address] [place] [address] Performed By: #### 7 9381-0 ####[facility] LABCLIA [id number] [place] [address] [place] Salmonella sp DNA KIAH+probe Ql (Unsp spec) Not detected Normal Not Detected [facility] Comment on above: Order Comment: Speci men Type: STOOL SPECIMENOrdering Facility: [facility] Address: [address] [place] [address] Performed By: #### 7 9381-0 ####[facility] [facility] [id number] [place] [address] [place] SAPOVIRUS I,II,IV,V Not detected Normal Not Detected [facility] Comment on above: Order Comment: Speci men Type: STOOL SPECIMENOrdering Facility: [facility] Address: [address] [place] [address] Performed By: #### 7 9381-0 ####[facility] LABCLIA [id number] [place] [address] [place] Shigella species+EIEC invasion plasmid antigen H ipaH gene KIAH+probe Ql (Stl) Not detected Normal Not Detected [facility] Comment on above: Order Comment: Speci men Type: STOOL SPECIMENOrdering Facility: [facility] Address: [address] [place] [address] Performed By: #### 7 9381-0 ####[facility] LABCLIA [id number] [place] [address] [place] V. cholerae DNA KIAH+probe Ql (Unsp spec) Not detected Normal Not Detected [facility] Comment on above: Order Comment: Speci men Type: STOOL SPECIMENOrdering Facility: [facility] Address: [address] [place] [address] Performed By: #### 7 9381-0 ####[facility] LABIA [id number] [place] [address] [place] Vibrio sp DNA KIAH+probe Nom (Unsp spec) Not detected Normal Not Detected [facility] Comment on above: Order Comment: Speci men Type: STOOL SPECIMENOrdering Facility: [facility] Address: [address] [place] [address] Performed By: #### 7 9381-0 ####[facility] LABIA [id number] [place] [address] [place] Yersinia sp DNA KIAH+probe Nom (Unsp spec) Not detected Normal Not Detected [facility] Comment on above: Order Comment: Speci men Type: STOOL SPECIMENOrdering Facility: [facility] Address: [address] [place] [address] Performed By: #### 7 9381-0 ####[facility] LABIA [id number] [place] [address] [place] Magnesium [facility]Pl[facility] Magnesium [Mass/Vol] 2.0 mg/dL Normal 1.7-2.3 [facility] Comment on above: Order Comment: Speci men Type: BLOOD SPECIMENOrdering Facility: [facility] Address: [address] [place] [address] Performed By: #### 2 4323-8, 44857-9 ####[facility] LABCLIA [id number] [place] [address] [place] SOCIAL WORKon 07-16-2023 SOCIAL WORK Normal [facility] THERAPY NTon 07-16-2023 THERAPY NT Normal [facility] THERAPY NT Normal [facility] C diff Tox gens Stl Ql KIAH+p robeon 07-15-2023 C. difficile toxin genes KIAH+probe Ql (Stl) Negative Normal Negative for C. difficile toxin by PCR [facility] Comment on above: Order Comment: Speci men Type: STOOL SPECIMENOrdering Facility: [facility] Address: [address] [place] [address] Performed By: #### 5 4067-4 ####[facility] LABCLIA [id number] [place] [address] [place] CBC W Auto Differential pane l (Bld)on 07-15-2023 Basophils (Bld) [#/Vol] Normal [facility] Comment on above: Order Comment: Speci men Type: BLOOD SPECIMENOrdering Facility: [facility] Address: [address] [place] [address] Result Comment: Too Few Cells To Do Differential. Performed By: #### 5 7021-8 ####[facility] LABCLIA [id number] [place] [address] [place] Basophils/100 WBC (Bld) Normal [facility] Comment on above: Order Comment: Speci men Type: BLOOD SPECIMENOrdering Facility: [facility] Address: [address] [place] [address] Result Comment: Too Few Cells To Do Differential. Performed By: #### 5 7021-8 ####[facility] LABCLIA [id number] [place] [address] [place] Differential cell count method Nom (Bld) Auto Normal [facility] Comment on above: Order Comment: Speci men Type: BLOOD SPECIMENOrdering Facility: [facility] Address: [address] [place] [address] Performed By: #### 5 7021-8 ####[facility] LABCLIA [id number] [place] [address] [place] Eosinophils (Bld) [#/Vol] Normal [facility] Comment on above: Order Comment: Speci men Type: BLOOD SPECIMENOrdering Facility: [facility] Address: [address] [place] [address] Result Comment: Too Few Cells To Do Differential. Performed By: #### 5 7021-8 ####[facility] LABCLIA [id number] [place] [address] [place] Eosinophils/100 WBC (Bld) Normal [facility] Comment on above: Order Comment: Speci men Type: BLOOD SPECIMENOrdering Facility: [facility] Address: [address] [place] [address] Result Comment: Too Few Cells To Do Differential. Performed By: #### 5 7021-8 ####[facility] LABCLIA [id number] [place] [address] [place] Erythrocyte distribution width (RBC) [Ratio] 15.5 % High 11.5-15.0 [facility] Comment on above: Order Comment: Speci men Type: BLOOD SPECIMENOrdering Facility: [facility] Address: [address] [place] [address] Performed By: #### 5 7021-8 ####[facility] LABCLIA [id number] [place] [address] [place] Hematocrit (Bld) [Volume fraction] 18.5 % Low 36.0-46.0 [facility] Comment on above: Order Comment: Speci men Type: BLOOD SPECIMENOrdering Facility: [facility] Address: [address] [place] [address] Performed By: #### 5 7021-8 ####[facility] LABCLIA [id number] [place] [address] [place] Hemoglobin (Bld) [Mass/Vol] 6.4 g/dL Low 11.5-15.5 [facility] Comment on above: Order Comment: Speci men Type: BLOOD SPECIMENOrdering Facility: [facility] Address: [address] [place] [address] Performed By: #### 5 7021-8 ####[facility] LABCLIA [id number] [place] [address] [place] Immature granulocytes (Bld) [#/Vol] Normal [facility] Comment on above: Order Comment: Speci men Type: BLOOD SPECIMENOrdering Facility: [facility] Address: [address] [place] [address] Result Comment: Too Few Cells To Do Differential. Performed By: #### 5 7021-8 ####[facility] LABCLIA [id number] [place] [address] [place] Immature granulocytes/100 WBC (Bld) Normal [facility] Comment on above: Order Comment: Speci men Type: BLOOD SPECIMENOrdering Facility: [facility] Address: [address] [place] [address] Result Comment: Too Few Cells To Do Differential. Performed By: #### 5 7021-8 ####[facility] LABCLIA [id number] [place] [address] [place] Lymphocytes (Bld) [#/Vol] Normal [facility] Comment on above: Order Comment: Speci men Type: BLOOD SPECIMENOrdering Facility: [facility] Address: [address] [place] [address] Result Comment: Too Few Cells To Do Differential. Performed By: #### 5 7021-8 ####[facility] LABCLIA [id number] [place] [address] [place] Lymphocytes/100 WBC (Bld) Normal [facility] Comment on above: Order Comment: Speci men Type: BLOOD SPECIMENOrdering Facility: [facility] Address: [address] [place] [address] Result Comment: Too Few Cells To Do Differential. Performed By: #### 5 7021-8 ####[facility] LABCLIA [id number] [place] [address] [place] MCH (RBC) [Entitic mass] 30.9 pg Normal 26.0-34.0 [facility] Comment on above: Order Comment: Speci men Type: BLOOD SPECIMENOrdering Facility: [facility] Address: [address] [place] [address] Performed By: #### 5 7021-8 ####[facility] LABIA [id number] [place] [address] [place] MCHC (RBC) [Mass/Vol] 34.6 g/dL Normal 30.5-36.0 [facility] Comment on above: Order Comment: Speci men Type: BLOOD SPECIMENOrdering Facility: [facility] Address: [address] [place] [address] Performed By: #### 5 7021-8 ####[facility] LABIA [id number] [place] [address] [place] MCV (RBC) [Entitic vol] 89.4 fL Normal 80.0-100.0 [facility] Comment on above: Order Comment: Speci men Type: BLOOD SPECIMENOrdering Facility: [facility] Address: [address] [place] [address] Performed By: #### 5 7021-8 ####[facility] LABIA [id number] [place] [address] [place] Monocytes (Bld) [#/Vol] Normal [facility] Comment on above: Order Comment: Speci men Type: BLOOD SPECIMENOrdering Facility: [facility] Address: [address] [place] [address] Result Comment: Too Few Cells To Do Differential. Performed By: #### 5 7021-8 ####[facility] LABCLIA [id number] [place] [address] [place] Monocytes/100 WBC (Bld) Normal [facility] Comment on above: Order Comment: Speci men Type: BLOOD SPECIMENOrdering Facility: [facility] Address: [address] [place] [address] Result Comment: Too Few Cells To Do Differential. Performed By: #### 5 7021-8 ####[facility] LABCLIA [id number] [place] [address] [place] Neutrophils (Bld) [#/Vol] Normal [facility] Comment on above: Order Comment: Speci men Type: BLOOD SPECIMENOrdering Facility: [facility] Address: [address] [place] [address] Result Comment: Too Few Cells To Do Differential. Performed By: #### 5 7021-8 ####[facility] LABCLIA [id number] [place] [address] [place] Neutrophils/100 WBC (Bld) Normal [facility] Comment on above: Order Comment: Speci men Type: BLOOD SPECIMENOrdering Facility: [facility] Address: [address] [place] [address] Result Comment: Too Few Cells To Do Differential. Performed By: #### 5 7021-8 ####[facility] LABCLIA [id number] [place] [address] [place] Nucleated RBC (Bld) [#/Vol] 0.02 10*3/uL High <0.01 [facility] Comment on above: Order Comment: Speci men Type: BLOOD SPECIMENOrdering Facility: [facility] Address: [address] [place] [address] Performed By: #### 5 7021-8 ####[facility] LABCLIA [id number] [place] [address] [place] Nucleated RBC/100 WBC (Bld) [Ratio] 4.7 /100 WBC Normal [facility] Comment on above: Order Comment: Speci men Type: BLOOD SPECIMENOrdering Facility: [facility] Address: [address] [place] [address] Performed By: #### 5 7021-8 ####[facility] LABIA [id number] [place] [address] [place] Platelet mean volume (Bld) [Entitic vol] Normal [facility] Comment on above: Order Comment: Speci men Type: BLOOD SPECIMENOrdering Facility: [facility] Address: [address] [place] [address] Result Comment: Unab le to Report. Performed By: #### 5 7021-8 ####[facility] LABIA [id number] [place] [address] [place] Platelets (Bld) [#/Vol] 8 10*3/uL Critically low 150-400 [facility] Comment on above: Order Comment: Speci men Type: BLOOD SPECIMENOrdering Facility: [facility] Address: [address] [place] [address] Result Comment: Plat elet count confirmed by manual review of peripheral blood smear. Results checked and verified.No clot detected. Performed By: #### 5 7021-8 ####[facility] LABIA [id number] [place] [address] [place] RBC (Bld) [#/Vol] 2.07 10*6/uL Low 3.90-5.20 [facility] Comment on above: Order Comment: Speci men Type: BLOOD SPECIMENOrdering Facility: [facility] Address: [address] [place] [address] Performed By: #### 5 7021-8 ####[facility] LABIA [id number] [place] [address] [place] WBC (Bld) [#/Vol] 0.43 10*3/uL Low 3.70-11.00 [facility] Comment on above: Order Comment: Speci men Type: BLOOD SPECIMENOrdering Facility: [facility] Address: [address] [place] [address] Result Comment: Resu lts checked and verified.No clot detected. Too Few Cells To Do Differential Performed By: #### 5 7021-8 ####[facility] LABCLIA [id number] [place] [address] [place] Comprehensive metabolic 2000 panelon 07-15-2023 Albumin [Mass/Vol] 2.3 g/dL Low 3.9-4.9 [facility] Comment on above: Order Comment: Speci men Type: BLOOD SPECIMENOrdering Facility: [facility] Address: [address] [place] [address] Performed By: #### 2 4323-8, 33729-6 ####[facility] LABCLIA [id number] [place] [address] [place] ALP [Catalytic activity/Vol] 56 U/L Normal 34-123 [facility] Comment on above: Order Comment: Speci men Type: BLOOD SPECIMENOrdering Facility: [facility] Address: [address] [place] [address] Performed By: #### 2 4323-8, ####[facility] LABCLIA [id number] [place] [address] [place] ALT [Catalytic activity/Vol] 13 U/L Normal 7-38 [facility] Comment on above: Order Comment: Speci men Type: BLOOD SPECIMENOrdering Facility: [facility] Address: [address] [place] [address] Performed By: #### 2 4323-8, ####[facility] LABCLIA [id number] [place] [id number] [place] Anion gap [Moles/Vol] 8 mmol/L Low 9-18 [facility] Comment on above: Order Comment: Speci men Type: BLOOD SPECIMENOrdering Facility: [facility] Address: [address] [place] [address] Performed By: #### 2 432-8, ####[facility] LABCLIA [id number] [place] [id number] [place] AST [Catalytic activity/Vol] 12 U/L Low 13-35 [facility] Comment on above: Order Comment: Speci men Type: BLOOD SPECIMENOrdering Facility: [facility] Address: [address] [place] [address] Performed By: #### 2 432-8, ####[facility] LABCLIA [id number] [place] [address] [place] Bilirubin [Mass/Vol] 0.7 mg/dL Normal 0.2-1.3 [facility] Comment on above: Order Comment: Speci men Type: BLOOD SPECIMENOrdering Facility: [facility] Address: [address] [place] [address] Performed By: #### 2 4323-8, ####[facility] LABCLIA [id number] [place] [address] [place] Calcium [Mass/Vol] 7.9 mg/dL Low 8.5-10.2 [facility] Comment on above: Order Comment: Speci men Type: BLOOD SPECIMENOrdering Facility: [facility] Address: [address] [place] [address] Performed By: #### 2 4323-8, ####[facility] LABCLIA [id number] [place] [address] [place] Chloride [Moles/Vol] 103 mmol/L Normal 97-105 [facility] Comment on above: Order Comment: Speci men Type: BLOOD SPECIMENOrdering Facility: [facility] Address: [address] [place] [address] Performed By: #### 2 4328, ####[facility] LABCLIA [id number] [place] [address] [place] CO2 [Moles/Vol] 23 mmol/L Normal 22-30 [facility] Comment on above: Order Comment: Speci men Type: BLOOD SPECIMENOrdering Facility: [facility] Address: [address] [place] [address] Performed By: #### 2 43211-08, ####[facility] LABIA [id number] [place] [address] [place] Creatinine [Mass/Vol] 0.81 mg/dL Normal 0.58-0.96 [facility] Comment on above: Order Comment: Speci men Type: BLOOD SPECIMENOrdering Facility: [facility] Address: [address] [place] [address] Performed By: #### 2 43211-08, ####[facility] LABIA [id number] [place] [address] [place] Creatinine and Glomerular filtration rate.predicted panel (S/P/Bld) 78 mL/min/1.73m??? Normal >=60 [facility] Comment on above: Order Comment: Speci men Type: BLOOD SPECIMENOrdering Facility: [facility] Address: [address] [place] [address] Result Comment: Berenice mated Glomerular Filtration Rate [...] actual GFR. Performed By: #### 2 4323-8, ####[facility] LABCLIA [id number] [place] [id number] [place] Glucose [Mass/Vol] 94 mg/dL Normal 74-99 [facility] Comment on above: Order Comment: Speci men Type: BLOOD SPECIMENOrdering Facility: [facility] Address: [address] [place] [address] Result Comment: The [place] [employer] (ADA) provides guidance for cutoff [...] Standards of Medical Care in Diabetes 2016, [place] [employer]. Diabetes Care. 2016.39(Suppl 1). Performed By: #### 2 4323-8, ####[facility] LABCLIA [id number] [place] [address] [place] Potassium [Moles/Vol] 3.6 mmol/L Low 3.7-5.1 [facility] Comment on above: Order Comment: Elvia men Type: BLOOD SPECIMENOrdering Facility: [facility] Address: [address] [place] [address] Performed By: #### 2 4323-8, ####[facility] LABCLIA [id number] [place] [address] [place] Protein [Mass/Vol] 4.6 g/dL Low 6.3-8.0 [facility] Comment on above: Order Comment: Rochellei men Type: BLOOD SPECIMENOrdering Facility: [facility] Address: [address] [place] [address] Performed By: #### 2 4323-8, ####[facility] LABCLIA [id number] [place] [address] [place] Sodium [Moles/Vol] 134 mmol/L Low 136-144 [facility] Comment on above: Order Comment: Speci men Type: BLOOD SPECIMENOrdering Facility: [facility] Address: [address] [place] [address] Performed By: #### 2 4323-8, ####[facility] LABCLIA [id number] [address] [address] [place] Urea nitrogen [Mass/Vol] 14 mg/dL Normal 7-21 [facility] Comment on above: Order Comment: Speci men Type: BLOOD SPECIMENOrdering Facility: [facility] Address: [address] [place] [address] Performed By: #### 2 4323-8, ####[facility] LABCLIA [id number] [place] [id number] [place] Magnesium SerPl-mCncon 07-15 Magnesium [Mass/Vol] 2.1 mg/dL Normal 1.7-2.3 [facility] Comment on above: Order Comment: Speci men Type: BLOOD SPECIMENOrdering Facility: [facility] Address: [address] [place] [address] Performed By: #### 2 4323-8, ####[facility] LABCLIA [id number] [place] [id number] [place] THERAPY NTon 07-15-2023 THERAPY NT Normal [facility] CT ABD/PEL W IVCONon 023 CT ABD/PEL W IVCON Normal [facility] CT CHEST W IVCONon 3 CT CHEST W IVCON Normal [facility] NURSING PROGon 07-14-2023 NURSING PROG Normal [facility] CBC W Auto Differential pane l (Bld)on 07-13-2023 Anisocytosis Ql (Bld) Present Normal [facility] Comment on above: Order Comment: Speci men Type: BLOOD SPECIMENOrdering Facility: [facility] Address: [address] [place] [address] Performed By: #### 5 7021-8 ####[facility] LABCLIA [id number] [place] [address] [place] Basophils (Bld) [#/Vol] 0.00 10*3/uL Normal <0.11 [facility] Comment on above: Order Comment: Speci men Type: BLOOD SPECIMENOrdering Facility: [facility] Address: [address] [place] [address] Performed By: #### 5 7021-8 ####[facility] LABCLIA [id number] [place] [address] [place] Basophils/100 WBC (Bld) 0.0 % Normal [facility] Comment on above: Order Comment: Speci men Type: BLOOD SPECIMENOrdering Facility: [facility] Address: [address] [place] [address] Performed By: #### 5 7021-8 ####[facility] LABCLIA [id number] [place] [address] [place] BLAST% 1.8 % High <=0.0 [facility] Comment on above: Order Comment: Speci men Type: BLOOD SPECIMENOrdering Facility: [facility] Address: [address] [place] [address] Performed By: #### 5 7021-8 ####[facility] LABCLIA [id number] [place] [address] [place] Differential cell count method Nom (Bld) Manual Normal [facility] Comment on above: Order Comment: Speci men Type: BLOOD SPECIMENOrdering Facility: [facility] Address: [address] [place] [address] Performed By: #### 5 7021-8 ####[facility] LABCLIA [id number] [place] [address] [place] Eosinophils (Bld) [#/Vol] 0.00 10*3/uL Normal <0.46 [facility] Comment on above: Order Comment: Speci men Type: BLOOD SPECIMENOrdering Facility: [facility] Address: [address] [place] [address] Performed By: #### 5 7021-8 ####[facility] LABCLIA [id number] [place] [address] [place] Eosinophils/100 WBC (Bld) 0.0 % Normal [facility] Comment on above: Order Comment: Speci men Type: BLOOD SPECIMENOrdering Facility: [facility] Address: [address] [place] [address] Performed By: #### 5 7021-8 ####[facility] LABCLIA [id number] [place] [address] [place] Erythrocyte distribution width (RBC) [Ratio] 15.3 % High 11.5-15.0 [facility] Comment on above: Order Comment: Speci men Type: BLOOD SPECIMENOrdering Facility: [facility] Address: [address] [place] [address] Performed By: #### 5 7021-8 ####[facility] LABCLIA [id number] [place] [address] [place] Hematocrit (Bld) [Volume fraction] 20.6 % Low 36.0-46.0 [facility] Comment on above: Order Comment: Speci men Type: BLOOD SPECIMENOrdering Facility: [facility] Address: [address] [place] [address] Performed By: #### 5 7021-8 ####[facility] LABCLIA [id number] [place] [address] [place] Hemoglobin (Bld) [Mass/Vol] 7.3 g/dL Low 11.5-15.5 [facility] Comment on above: Order Comment: Speci men Type: BLOOD SPECIMENOrdering Facility: [facility] Address: [address] [place] [address] Performed By: #### 5 7021-8 ####[facility] LABCLIA [id number] [place] [address] [place] Lymphocytes (Bld) [#/Vol] 0.29 10*3/uL Low 1.00-4.00 [facility] Comment on above: Order Comment: Speci men Type: BLOOD SPECIMENOrdering Facility: [facility] Address: [address] [place] [address] Performed By: #### 5 7021-8 ####[facility] LABCLIA [id number] [place] [address] [place] Lymphocytes/100 WBC (Bld) 47.8 % Normal [facility] Comment on above: Order Comment: Speci men Type: BLOOD SPECIMENOrdering Facility: [facility] Address: [address] [place] [address] Performed By: #### 5 7021-8 ####[facility] LABCLIA [id number] [place] [address] [place] MCH (RBC) [Entitic mass] 30.9 pg Normal 26.0-34.0 [facility] Comment on above: Order Comment: Speci men Type: BLOOD SPECIMENOrdering Facility: [facility] Address: [address] [place] [address] Performed By: #### 5 7021-8 ####[facility] LABCLIA [id number] [place] [address] [place] MCHC (RBC) [Mass/Vol] 35.4 g/dL Normal 30.5-36.0 [facility] Comment on above: Order Comment: Speci men Type: BLOOD SPECIMENOrdering Facility: [facility] Address: [address] [place] [address] Performed By: #### 5 7021-8 ####[facility] LABCLIA [id number] [place] [address] [place] MCV (RBC) [Entitic vol] 87.3 fL Normal 80.0-100.0 [facility] Comment on above: Order Comment: Speci men Type: BLOOD SPECIMENOrdering Facility: [facility] Address: [address] [place] [address] Performed By: #### 5 7021-8 ####[facility] LABCLIA [id number] [place] [address] [place] [place] Monocytes (Bld) [#/Vol] 0.07 10*3/uL Normal <0.87 [facility] Comment on above: Order Comment: Speci men Type: BLOOD SPECIMENOrdering Facility: [facility] Address: [address] [place] [address] Performed By: #### 5 7021-8 ####[facility] LABCLIA [id number] [place] [address] [place] Monocytes/100 WBC (Bld) 10.8 % Normal [facility] Comment on above: Order Comment: Speci men Type: BLOOD SPECIMENOrdering Facility: [facility] Address: [address] [place] [address] Performed By: #### 5 7021-8 ####[facility] LABCLIA [id number] [place] [address] [place] Neutrophils (Bld) [#/Vol] 0.24 10*3/uL Low 1.45-7.50 [facility] Comment on above: Order Comment: Speci men Type: BLOOD SPECIMENOrdering Facility: [facility] Address: [address] [place] [address] Performed By: #### 5 7021-8 ####[facility] LABCLIA [id number] [place] [address] [place] Neutrophils/100 WBC (Bld) 39.6 % Normal [facility] Comment on above: Order Comment: Speci men Type: BLOOD SPECIMENOrdering Facility: [facility] Address: [address] [place] [address] Performed By: #### 5 7021-8 ####[facility] LABCLIA [id number] [place] [address] [place] Nucleated RBC (Bld) [#/Vol] 0.02 10*3/uL High <0.01 [facility] Comment on above: Order Comment: Speci men Type: BLOOD SPECIMENOrdering Facility: [facility] Address: [address] [place] [address] Performed By: #### 5 7021-8 ####[facility] LABCLIA [id number] [place] [address] [place] Nucleated RBC/100 WBC (Bld) [Ratio] 2.7 /100 WBC Normal [facility] Comment on above: Order Comment: Speci men Type: BLOOD SPECIMENOrdering Facility: [facility] Address: [address] [place] [address] Performed By: #### 5 7021-8 ####[facility] LABCLIA [id number] [place] [address] [place] Ovalocytes LM Ql (Bld) Few Normal [facility] Comment on above: Order Comment: Speci men Type: BLOOD SPECIMENOrdering Facility: [facility] Address: [address] [place] [address] Performed By: #### 5 7021-8 ####[facility] LABCLIA [id number] [place] [address] [place] Platelet mean volume (Bld) [Entitic vol] Normal [facility] Comment on above: Order Comment: Speci men Type: BLOOD SPECIMENOrdering Facility: [facility] Address: [address] [place] [address] Result Comment: Unab le to Report. Performed By: #### 5 7021-8 ####[facility] LABCLIA [id number] [place] [address] [place] Platelets (Bld) [#/Vol] 10 10*3/uL Low 150-400 [facility] Comment on above: Order Comment: Speci men Type: BLOOD SPECIMENOrdering Facility: [facility] Address: [address] [place] [address] Performed By: #### 5 7021-8 ####[facility] LABCLIA [id number] [place] [address] [place] Platelets Estimate (Bld) [#/Vol] Decreased Normal [facility] Comment on above: Order Comment: Speci men Type: BLOOD SPECIMENOrdering Facility: [facility] Address: [address] [place] [address] Performed By: #### 5 7021-8 ####[facility] LABCLIA [id number] [place] [address] [place] Polychromasia LM Ql (Bld) Slight Normal [facility] Comment on above: Order Comment: Speci men Type: BLOOD SPECIMENOrdering Facility: [facility] Address: [address] [place] [address] Performed By: #### 5 7021-8 ####[facility] LABIA [id number] [place] [address] [place] RBC (Bld) [#/Vol] 2.36 10*6/uL Low 3.90-5.20 [facility] Comment on above: Order Comment: Speci men Type: BLOOD SPECIMENOrdering Facility: [facility] Address: [address] [place] [address] Performed By: #### 5 7021-8 ####[facility] LABIA [id number] [place] [address] [place] RBC FRAGMENTS Few Abnormal None Seen [facility] Comment on above: Order Comment: Speci men Type: BLOOD SPECIMENOrdering Facility: [facility] Address: [address] [place] [address] Performed By: #### 5 7021-8 ####[facility] LABIA [id number] [place] [address] [place] RED CELL MORPH Reviewed: see result s of individual morphologies Normal [facility] Comment on above: Order Comment: Speci men Type: BLOOD SPECIMENOrdering Facility: [facility] Address: [address] [place] [address] Performed By: #### 5 7021-8 ####[facility] LABCLIA [id number] [address] [address] [place] WBC (Bld) [#/Vol] 0.61 10*3/uL Low 3.70-11.00 [facility] Comment on above: Order Comment: Speci men Type: BLOOD SPECIMENOrdering Facility: [facility] Address: [address] [place] [address] Result Comment: Resu lts checked and verified.No clot detected. Performed By: #### 5 7021-8 ####[facility] LABCLIA [id number] [place] [address] [place] Comprehensive metabolic 2000 panelon 07-13-2023 Albumin [Mass/Vol] 2.6 g/dL Low 3.9-4.9 [facility] Comment on above: Order Comment: Speci men Type: BLOOD SPECIMENOrdering Facility: [facility] Address: [address] [place] [address] Performed By: #### 2 4323-8, , 2776-09 ####[facility] LABCLIA [id number] [place] [address] [place] ALP [Catalytic activity/Vol] 49 U/L Normal 34-123 [facility] Comment on above: Order Comment: Speci men Type: BLOOD SPECIMENOrdering Facility: [facility] Address: [address] [place] [address] Performed By: #### 2 4323-8, , 2776-09 ####[facility] LABCLIA [id number] [place] [address] [place] ALT [Catalytic activity/Vol] 16 U/L Normal 7-38 [facility] Comment on above: Order Comment: Speci men Type: BLOOD SPECIMENOrdering Facility: [facility] Address: [address] [place] [address] Performed By: #### 2 4323-8, , 2776-09 ####[facility] LABCLIA [id number] [place] [address] [place] Anion gap [Moles/Vol] 6 mmol/L Low 9-18 [facility] Comment on above: Order Comment: Speci men Type: BLOOD SPECIMENOrdering Facility: [facility] Address: [address] [place] [address] Performed By: #### 2 4323-8, , 2776-09 ####[facility] LABCLIA [id number] [place] [address] [place] AST [Catalytic activity/Vol] 13 U/L Normal 13-35 [facility] Comment on above: Order Comment: Speci men Type: BLOOD SPECIMENOrdering Facility: [facility] Address: [address] [place] [address] Performed By: #### 2 4323-8, , 2776-09 ####[facility] LABIA [id number] [place] [address] [place] Bilirubin [Mass/Vol] 0.8 mg/dL Normal 0.2-1.3 [facility] Comment on above: Order Comment: Speci men Type: BLOOD SPECIMENOrdering Facility: [facility] Address: [address] [place] [address] Performed By: #### 2 4323-8, , 2776-09 ####[facility] LABIA [id number] [place] [address] [place] Calcium [Mass/Vol] 8.1 mg/dL Low 8.5-10.2 [facility] Comment on above: Order Comment: Speci men Type: BLOOD SPECIMENOrdering Facility: [facility] Address: [address] [place] [address] Performed By: #### 2 4323-8, 33711-8, 2776-09 ####[facility] LABIA [id number] [place] [address] [place] Chloride [Moles/Vol] 103 mmol/L Normal 97-105 [facility] Comment on above: Order Comment: Speci men Type: BLOOD SPECIMENOrdering Facility: [facility] Address: [address] [place] [address] Performed By: #### 2 4323-8, , 2776-09 ####[facility] LABIA [id number] [place] [address] [place] CO2 [Moles/Vol] 25 mmol/L Normal 22-30 [facility] Comment on above: Order Comment: Speci men Type: BLOOD SPECIMENOrdering Facility: [facility] Address: [address] [place] [address] Performed By: #### 2 4323-8, , 2776-09 ####[facility] LABIA [id number] [place] [address] [place] Creatinine [Mass/Vol] 0.82 mg/dL Normal 0.58-0.96 [facility] Comment on above: Order Comment: Speci men Type: BLOOD SPECIMENOrdering Facility: [facility] Address: [address] [place] [address] Performed By: #### 2 4323-8, , 2776-09 ####[facility] LABIA [id number] [place] [address] [place] Creatinine and Glomerular filtration rate.predicted panel (S/P/Bld) 77 mL/min/1.73m??? Normal >=60 [facility] Comment on above: Order Comment: Speci men Type: BLOOD SPECIMENOrdering Facility: [facility] Address: [address] [place] [address] Result Comment: Berenice mated Glomerular Filtration Rate [...] Performed By: #### 2 4323-8, , 2776-09 ####[facility] LABCLIA [id number] [place] [address] [place] Glucose [Mass/Vol] 112 mg/dL High 74-99 [facility] Comment on above: Order Comment: Elvia escobar Type: BLOOD SPECIMENOrdering Facility: [facility] Address: [address] [place] [address] Result Comment: The [place] Diabetes Association (ADA) provides guidance for cutoff [...] Standards of Medical Care in Diabetes 2016, [place] [employer]. Diabetes Care. 2016.39(Suppl 1). Performed By: #### 2 4323-8, , 2776-09 ####[facility] LABCLIA [id number] [place] [id number] [place] Potassium [Moles/Vol] 3.9 mmol/L Normal 3.7-5.1 [facility] Comment on above: Order Comment: Elvia escobar Type: BLOOD SPECIMENOrdering Facility: [facility] Address: [address] [place] [address] Performed By: #### 2 4323-8, , 2776-09 ####[facility] LABCLIA [id number] [place] [address] [place] Protein [Mass/Vol] 4.8 g/dL Low 6.3-8.0 [facility] Comment on above: Order Comment: Speci men Type: BLOOD SPECIMENOrdering Facility: [facility] Address: [address] [place] [address] Performed By: #### 2 4323-8, , 2776-09 ####[facility] LABIA [id number] [place] [address] [place] Sodium [Moles/Vol] 134 mmol/L Low 136-144 [facility] Comment on above: Order Comment: Speci men Type: BLOOD SPECIMENOrdering Facility: [facility] Address: [address] [place] [address] Performed By: #### 2 4323-8, , 2776-09 ####[facility] LABIA [id number] [place] [address] [place] Urea nitrogen [Mass/Vol] 26 mg/dL High 7-21 [facility] Comment on above: Order Comment: Speci men Type: BLOOD SPECIMENOrdering Facility: [facility] Address: [address] [place] [address] Performed By: #### 2 4323-8, , 2776-09 ####[facility] LABIA [id number] [place] [address] [place] HISTORY PHYSICALon HISTORY PHYSICAL Normal [facility] Magnesium SerPl-mCncon 07-13 Magnesium [Mass/Vol] 2.2 mg/dL Normal 1.7-2.3 [facility] Comment on above: Order Comment: Speci men Type: BLOOD SPECIMENOrdering Facility: [facility] Address: [address] [place] [address] Performed By: #### 2 4323-8, , 2776-09 ####[facility] LABCLIA [id number] [place] [address] [place] Phosphate SerPl-mCncon 07-13 Phosphate [Mass/Vol] 2.8 mg/dL Normal 2.7-4.8 [facility] Comment on above: Order Comment: Speci men Type: BLOOD SPECIMENOrdering Facility: [facility] Address: [address] [place] [address] Performed By: #### 2 4323-8, 89990-0, 2777-1 ####[facility] LABCLIA [id number] [place] [address] [place] TYPE + SCREENon 07-13-2023 ABO O Normal [facility] Comment on above: Order Comment: Speci men Type: BLOOD SPECIMENOrdering Facility: [facility] Address: [address] [place] [address] Performed By: #### T SCR ####[facility] BLOOD BANKCLIA [id number] [place] [address] [place] HISTORICAL AB SCR STATUS Negative Normal [facility] Comment on above: Order Comment: Speci men Type: BLOOD SPECIMENOrdering Facility: [facility] Address: [address] [place] [address] Performed By: #### T SCR ####[facility] BLOOD BANKCLIA [id number] [place] [address] [place] Rh Nom (Bld) Positive Normal [facility] Comment on above: Order Comment: Speci men Type: BLOOD SPECIMENOrdering Facility: [facility] Address: [address] [place] [address] Performed By: #### T SCR ####[facility] BLOOD BANKCLIA [id number] [place] [address] [place] TYPE AND SCREEN EXPIRATION 07/16/2023 23:59 Normal [facility] Comment on above: Order Comment: Speci men Type: BLOOD SPECIMENOrdering Facility: [facility] Address: [facility] [place] [address] Performed By: #### T SCR ####[facility] BLOOD BANKCLIA [id number] [place] [id number] [place] CNPNon 07-06-2023 CNPN Normal [facility] AML MRD BY FCon 06-25-2023 AML MRD BY FC View results in Scan talia Documents link when available. Normal [facility] Comment on above: Order Comment: Speci men Type: BONE MARROW SPECIMENOrdering Facility: [facility] Address: [address] [place] [address] Performed By: #### A MLMRD ####[facility] MOLECULAR MICROCLIA [id number] [place] [address] BONE MARROW ANALYSISon 06-25 ADDENDUM 1: Normal [facility] Comment on above: Order Comment: Speci men Type: BONE MARROW SPECIMENOrdering Facility: [facility] Address: [address] [place] [address] Result Comment: Conv entional cytogenetic studies showed a complex female karyotype.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 In addition, the variant of unknown clinical significance was found in DDX41.The flow cytometry based minimal residual disease (MRD) studies performed on the bone marrow aspirate at [facility], [place], [place] are reported to show an abnormal [...] 10:10 AM Performed By: #### B MRT ####[facility] LABCLIA [id number] [place] [address] [place] CASE REPORT Normal [facility] Comment on above: Order Comment: Speci men Type: BONE MARROW SPECIMENOrdering Facility: [facility] Address: [address] [place] [address] Result Comment: Bone Marrow Pathology Report Case: [id number] Provider: Mike Hughes MD Collected: 06/25/2023 08:55 AMOrdering Location: [place] [address] Received: 06/25/2023 09:18 AMPathologist: Mihaela Flowers MDSpecimens: A) - BONE MARROW ASPIRATE RIGHT POSTERIOR ILIAC CREST B) - BONE MARROW BIOPSY RIGHT POSTERIOR ILIAC CREST C) - BONE MARROW CLOT RIGHT POSTERIOR ILIAC CREST Performed By: #### B MRT ####[facility] LABCLIA [id number] [facility] [place] [address] [place] DIAGNOSIS COMMENT Normal [facility] Comment on above: Order Comment: Speci men Type: BONE MARROW SPECIMENOrdering Facility: [facility] Address: [address] [place] [address] Result Comment: The patient is a 68-year-old female with history of acute myeloid leukemia with mutated TP53, therapy-related ([facility] 2021), status post therapy.Evaluation is limited due [...] Hernandez from the hematopathology section at the [facility], and he concurs with the above rendered final diagnosis and interpretation.Laboratory Developed Test (LDT) Disclaimer:Performance characteristics of immunohistochemical, immunofluorescent and chromogenic in-situ hybridization tests have been determined by the performing laboratory within [facility]???s [facility] Pathology [facility] [place] ([facility], [facility], [facility], [facility], [facility], Count Includes [facility], or [facility]) in a manner consistent with CLIA requirements. One or more of these tests have not been cleared or approved by the FDA. RT-PLMI is regulated under CLIA as qualified to perform high-complexity testing. These tests are used for clinical purposes. They should not be regarded as investigational or for research. Positive and negative controls stain appropriately. Performed By: #### B MRT ####[facility] LABCLIA [id number] [address] [place] FINAL DIAGNOSIS Normal [facility] Comment on above: Order Comment: Speci men Type: BONE MARROW SPECIMENOrdering Facility: [facility] Address: [address] [place] [address] Result Comment: A-C. 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 Address: [address] [place] [address] Result Comment: Diag nostic interpretation performed at [facility], [address] [place] [address] CLIA# [id number] Director: Boris Wood M.D. Performed By: #### B MRT ####[facility] LABCLIA [id number] [place] [address] [place] GROSS DESCRIPTION Normal [facility] Comment on above: Order Comment: Speci men Type: BONE MARROW SPECIMENOrdering Facility: [facility] Address: [address] [place] [address] Result Comment: A. B ONE MARROW ASPIRATE [...] one cassette. Performed By: #### B MRT ####[facility] LABCLIA [id number] [place] [address] [place] MICROSCOPIC DESCRIPTION Normal [facility] Comment on above: Order Comment: Elvia escobar Type: BONE MARROW SPECIMENOrdering Facility: [facility] Address: [address] [place] [address] Result Comment: GENNY PHERAL BLOOD: N0 CBC data or peripheral blood smear available for review.BONE MARROW ASPIRATE: Differential counts performed on the aspicular, hemodilute touch imprint may not be entirely client service representative of the true marrow cellularity.Result Normal [...] coat stored. Performed By: #### B MRT ####[facility] LABCLIA [id number] [place] [address] [place] BONE MARROW CHROMOSOME ANALo n 06-25-2023 CHROMOSOME BM Normal [facility] Comment on above: Order Comment: Order ing [facility] Address: [address] [place] [address] Result Comment: Edel knight Accession Number: [id number]: Yara Hughesologist: Janki Pathology No: [id number] diagnosis: Acute Myeloid Leukemia Not Having AchievedRemissionSpecimen [...] reviewed by Jovanny Hooper, PhD, FACMGPerformed by St[facility] HospitalPathology and Laboratory Medicine InstituteSaint John'S Breech Regional Medical Centerion of Molecular PathologyCytogenetics Lab, [id number] [place] [address]Phone: Toll free: Performed By: #### C HRBM ####[facility] LIMSCLIA [id number] [address] [address] [place] BRIEF OP NOTon 06-25-2023 BRIEF OP NOT Normal [facility] CNOVSPon 06-25-2023 CNOVSP Normal [facility] CT BIOPSY BONE MARROW (HEMO) on 06-25-2023 CT BIOPSY BONE MARROW (HEMO) Normal [facility] DNA EXTRACTION BONE MARROW ( BUFFY COAT)on 06-25-2023 DNA EXTRACTION BONE MARROW (BUFFY COAT) Normal [facility] Comment on above: Order Comment: Speci men Type: BONE MARROW SPECIMENOrdering Facility: [facility] Address: [address] [place] [address] Result Comment: This specimen was received and successfully processed for future DNA purification should molecular testing be needed. Specimens will be available for 3 years from date of collection.To order testing on this specimen for [facility] patients, please place an [facility] order for DNA and RNA Clinical Testing ([id number]). To order testing for patients outside of the [facility] system, please request DNA and RNA for Clinical Testing, order code [id number].If additional paperwork is required for testing, please send completed forms via secure email to . Performed By: #### N UCBUF ####[facility] LIMSCLIA [id number] [address] [address] [place] FLOW CYTOMETRY FOR LEUKEMIA/ LYMPHOMA (FCLL) PERFORMABLEon 06-25-2023 FLOW CYTOMETRY ORDER STATUS A bone marrow sample was received for potential flow cytometry studies. Following morphologic review, flow cytometric studies will be ordered by the hematopathologist if testing is indicated. Normal [facility] Comment on above: Order Comment: Speci men Type: BONE MARROW SPECIMENOrdering Facility: [facility] Address: [address] [place] [address] Performed By: #### F CLLP ####[facility] LABCLIA [id number] [address] OF [facility] Flow Cytometry Order Status A bone marrow sample was received for potential flow cytometry studies. Following morphologic review, flow cytometric studies will be ordered by the hematopathologist if testing is indicated. [facility] FLT3 ITD HN BONE MARROWon CLARITY SIGNOUT PATHOLOGIST [id number] Normal [facility] Comment on above: Order Comment: Speci men Type: BONE MARROW SPECIMENOrdering Facility: [facility] Address: [address] [place] [address] Performed By: #### F 3IM, MYNGSM ####[facility] LIMSCLIA [id number] [address] FLT3 ITD HN PANEL BONE MARROW Normal [facility] Comment on above: Order Comment: Speci men Type: BONE MARROW SPECIMENOrdering Facility: [facility] Address: [address] [place] [address] Result Comment: FLT3 Internal Tandem Duplication (ITD) Mutation TestingLaboratory Accession Number: [id number] Internal Tandem Duplication (ITD) mutation: Not DetectedComment:FLT3/ITD [...] from the specimen provided. Regions of the LRO2aadhznfb kinase receptor gene are subjected to the [...] was developed and its performance characteristics determinedby [facility]'s [facility] Pathology and LaboratoryMedicine [place] ([facility]ENTERPLMO). It has not been cleared or approved bythe FDA. -PLMO is regulated under CLIA as certified to perform high-complexity testing. This test is used for clinical purposes. It shouldnot be regarded as investigational or for research.[place] [address]. CLIA Number: [id number] reviewed by Zenia Mae, PhD, [facility] Performed By: #### F 3IIVONNE Alvarez ####[facility] [id number] [place] [address] [place] HISTORY PHYSICALon HISTORY PHYSICAL Normal [facility] Centerharshad [facility] MYELOID NGS PANEL BONE MARRO Won 06-25-2023 MYELOID NGS PANEL BONE MARROW Normal [facility] Comment on above: Order Comment: Speci men Type: BONE MARROW SPECIMENOrdering Facility: [facility] Address: [address] [place] [address] Result Comment: Myel oid NGS Panel Bone MarrowLaboratory Accession Number: [id number]:Please see linked document and/or separate report for full result whenavailable.As reviewed by Zenia Mae, PhD, HCLD Performed By: #### F 3IM, CHINMAYNGSM ####[facility] LIMSCLIA [id number] [place] [address] [place] NURSING PROGon 06-25-2023 NURSING PROG Normal [facility] PT EDon 06-25-2023 PT ED Normal [facility] CNPNon 06-22-2023 CNPN Normal [facility] NURSING PROGon 06-20-2023 NURSING PROG Normal [facility] CNPNon 06-14-2023 CNPN Normal [facility] CNCOon 06-08-2023 CNCO Letter Text Normal [facility] CASE MANAGEMon 06-07-2023 CASE MANAGEM Normal [facility] CBC W Auto Differential pane l (Bld)on 06-07-2023 Anisocytosis Ql (Bld) Present Normal [facility] Comment on above: Order Comment: Speci men Type: BLOOD SPECIMENOrdering Facility: [facility] Address: [address] [place] [address] Performed By: #### 5 7021-8 ####[facility] LABCLIA [id number] [place] [address] [place] Basophils (Bld) [#/Vol] 0.00 10*3/uL Normal <0.11 [facility] Comment on above: Order Comment: Speci men Type: BLOOD SPECIMENOrdering Facility: [facility] Address: [address] [place] [address] Performed By: #### 5 7021-8 ####[facility] LABCLIA [id number] [place] [address] [place] Basophils/100 WBC (Bld) 0.0 % Normal [facility] Comment on above: Order Comment: Speci men Type: BLOOD SPECIMENOrdering Facility: [facility] Address: [address] [place] [address] Performed By: #### 5 7021-8 ####[facility] LABCLIA [id number] [place] [address] [place] Dacrocytes LM Ql (Bld) Few Normal [facility] Comment on above: Order Comment: Speci men Type: BLOOD SPECIMENOrdering Facility: [facility] Address: [address] [place] [address] Performed By: #### 5 7021-8 ####[facility] LABCLIA [id number] [place] [address] [place] Differential cell count method Nom (Bld) Manual Normal [facility] Comment on above: Order Comment: Speci men Type: BLOOD SPECIMENOrdering Facility: [facility] Address: [address] [place] [address] Performed By: #### 5 7021-8 ####[facility] LABCLIA [id number] [place] [address] [place] Eosinophils (Bld) [#/Vol] 0.07 10*3/uL Normal <0.46 [facility] Comment on above: Order Comment: Speci men Type: BLOOD SPECIMENOrdering Facility: [facility] Address: [address] [place] [address] Performed By: #### 5 7021-8 ####[facility] LABCLIA [id number] [place] [address] [place] Eosinophils/100 WBC (Bld) 6.0 % Normal [facility] Comment on above: Order Comment: Speci men Type: BLOOD SPECIMENOrdering Facility: [facility] Address: [address] [place] [address] Performed By: #### 5 7021-8 ####[facility] LABCLIA [id number] [place] [address] [place] Erythrocyte distribution width (RBC) [Ratio] 18.3 % High 11.5-15.0 [facility] Comment on above: Order Comment: Speci men Type: BLOOD SPECIMENOrdering Facility: [facility] Address: [address] [place] [address] Performed By: #### 5 7021-8 ####[facility] LABCLIA [id number] [place] [address] [place] Hematocrit (Bld) [Volume fraction] 21.4 % Low 36.0-46.0 [facility] Comment on above: Order Comment: Speci men Type: BLOOD SPECIMENOrdering Facility: [facility] Address: [address] [place] [address] Performed By: #### 5 7021-8 ####[facility] LABCLIA [id number] [place] [address] [place] Hemoglobin (Bld) [Mass/Vol] 7.3 g/dL Low 11.5-15.5 [facility] Comment on above: Order Comment: Speci men Type: BLOOD SPECIMENOrdering Facility: [facility] Address: [address] [place] [address] Performed By: #### 5 7021-8 ####[facility] LABIA [id number] [place] [address] [place] Lymphocytes (Bld) [#/Vol] 0.96 10*3/uL Low 1.00-4.00 [facility] Comment on above: Order Comment: Speci men Type: BLOOD SPECIMENOrdering Facility: [facility] Address: [address] [place] [address] Performed By: #### 5 7021-8 ####[facility] LABCLIA [id number] [place] [address] [place] Lymphocytes/100 WBC (Bld) 82.0 % Normal [facility] Comment on above: Order Comment: Speci men Type: BLOOD SPECIMENOrdering Facility: [facility] Address: [address] [place] [address] Performed By: #### 5 7021-8 ####[facility] LABIA [id number] [place] [address] [place] MCH (RBC) [Entitic mass] 32.2 pg Normal 26.0-34.0 [facility] Comment on above: Order Comment: Speci men Type: BLOOD SPECIMENOrdering Facility: [facility] Address: [address] [place] [address] Performed By: #### 5 7021-8 ####[facility] LABIA [id number] [place] [address] [place] MCHC (RBC) [Mass/Vol] 34.1 g/dL Normal 30.5-36.0 [facility] Comment on above: Order Comment: Speci men Type: BLOOD SPECIMENOrdering Facility: [facility] Address: [address] [place] [address] Performed By: #### 5 7021-8 ####[facility] LABIA [id number] [place] [address] [place] MCV (RBC) [Entitic vol] 94.3 fL Normal 80.0-100.0 [facility] Comment on above: Order Comment: Speci men Type: BLOOD SPECIMENOrdering Facility: [facility] Address: [address] [place] [address] Performed By: #### 5 7021-8 ####[facility] LABIA [id number] [place] [address] [place] Monocytes (Bld) [#/Vol] 0.00 10*3/uL Normal <0.87 [facility] Comment on above: Order Comment: Speci men Type: BLOOD SPECIMENOrdering Facility: [facility] Address: [address] [place] [address] Performed By: #### 5 7021-8 ####[facility] LABCLIA [id number] [place] [address] [place] Monocytes/100 WBC (Bld) 0.0 % Normal [facility] Comment on above: Order Comment: Speci men Type: BLOOD SPECIMENOrdering Facility: [facility] Address: [address] [place] [address] Performed By: #### 5 7021-8 ####[facility] LABCLIA [id number] [place] [address] [place] Neutrophils (Bld) [#/Vol] 0.14 10*3/uL Low 1.45-7.50 [facility] Comment on above: Order Comment: Speci men Type: BLOOD SPECIMENOrdering Facility: [facility] Address: [address] [place] [address] Performed By: #### 5 7021-8 ####[facility] LABCLIA [id number] [place] [address] [place] Neutrophils/100 WBC (Bld) 12.0 % Normal [facility] Comment on above: Order Comment: Speci men Type: BLOOD SPECIMENOrdering Facility: [facility] Address: [address] [place] [address] Performed By: #### 5 7021-8 ####[facility] LABCLIA [id number] [place] [address] [place] Nucleated RBC (Bld) [#/Vol] 10*3/uL Normal <0.01 [facility] Comment on above: Order Comment: Speci men Type: BLOOD SPECIMENOrdering Facility: [facility] Address: [address] [place] [address] Performed By: #### 5 7021-8 ####[facility] LABCLIA [id number] [place] [address] [place] Nucleated RBC/100 WBC (Bld) [Ratio] 0.0 /100 WBC Normal [facility] Comment on above: Order Comment: Speci men Type: BLOOD SPECIMENOrdering Facility: [facility] Address: [address] [place] [address] Performed By: #### 5 7021-8 ####[facility] LABCLIA [id number] [place] [address] [place] Ovalocytes LM Ql (Bld) Few Normal [facility] Comment on above: Order Comment: Speci men Type: BLOOD SPECIMENOrdering Facility: [facility] Address: [address] [place] [address] Performed By: #### 5 7021-8 ####[facility] LABCLIA [id number] [place] [address] [place] Platelet mean volume (Bld) [Entitic vol] Normal [facility] Comment on above: Order Comment: Speci men Type: BLOOD SPECIMENOrdering Facility: [facility] Address: [address] [place] [address] Result Comment: Unab le to Report. Performed By: #### 5 7021-8 ####[facility] LABCLIA [id number] [place] [address] [place] Platelets (Bld) [#/Vol] 9 10*3/uL Critically low 150-400 [facility] Comment on above: Order Comment: Speci men Type: BLOOD SPECIMENOrdering Facility: [facility] Address: [address] [place] [address] Result Comment: Resu lts checked and verified.No clot detected. Performed By: #### 5 7021-8 ####[facility] LABCLIA [id number] [place] [address] [place] Platelets Estimate (Bld) [#/Vol] Decreased Normal [facility] Comment on above: Order Comment: Speci men Type: BLOOD SPECIMENOrdering Facility: [facility] Address: [address] [place] [address] Performed By: #### 5 7021-8 ####[facility] LABCLIA [id number] [place] [address] [place] Polychromasia LM Ql (Bld) Slight Normal [facility] Comment on above: Order Comment: Speci men Type: BLOOD SPECIMENOrdering Facility: [facility] Address: [address] [place] [address] Performed By: #### 5 7021-8 ####[facility] LABCLIA [id number] [place] [address] [place] RBC (Bld) [#/Vol] 2.27 10*6/uL Low 3.90-5.20 [facility] Comment on above: Order Comment: Speci men Type: BLOOD SPECIMENOrdering Facility: [facility] Address: [address] [place] [address] Performed By: #### 5 7021-8 ####[facility] LABCLIA [id number] [place] [address] [place] RBC FRAGMENTS Few Abnormal None Seen [facility] Comment on above: Order Comment: Speci men Type: BLOOD SPECIMENOrdering Facility: [facility] Address: [address] [place] [address] Performed By: #### 5 7021-8 ####[facility] LABCLIA [id number] [place] [address] [place] RED CELL MORPH Reviewed: see result s of individual morphologies Normal [facility] Comment on above: Order Comment: Speci men Type: BLOOD SPECIMENOrdering Facility: [facility] Address: [address] [place] [address] Performed By: #### 5 7021-8 ####[facility] LABCLIA [id number] [place] [address] [place] WBC (Bld) [#/Vol] 1.17 10*3/uL Low 3.70-11.00 [facility] Comment on above: Order Comment: Speci men Type: BLOOD SPECIMENOrdering Facility: [facility] Address: [address] [place] [address] Result Comment: No c lot detected. Performed By: #### 5 7021-8 ####[facility] LABCLIA [id number] [address] [address] [place] CNDSon 06-07-2023 CNDS Normal [facility] Comprehensive metabolic 2000 panelon 06-07-2023 Albumin [Mass/Vol] 3.2 g/dL Low 3.9-4.9 [facility] Comment on above: Order Comment: Speci men Type: BLOOD SPECIMENOrdering Facility: [facility] Address: [address] [place] [address] Performed By: #### 2 4323-8, 95614-9, 2776-1, 3084-1 ####[facility] LABCLIA [id number] [place] [address] [place] ALP [Catalytic activity/Vol] 63 U/L Normal 34-123 [facility] Comment on above: Order Comment: Speci men Type: BLOOD SPECIMENOrdering Facility: [facility] Address: [address] [place] [address] Performed By: #### 2 4323-8, 07492-4, 2776-1, 3084-1 ####[facility] LABIA [id number] [place] [address] [place] ALT [Catalytic activity/Vol] 18 U/L Normal 7-38 [facility] Comment on above: Order Comment: Speci men Type: BLOOD SPECIMENOrdering Facility: [facility] Address: [address] [place] [address] Performed By: #### 2 4323-8, 57866-6, 2776-1, 3084-1 ####[facility] LABIA [id number] [place] [id number] [place] Anion gap [Moles/Vol] 10 mmol/L Normal 9-18 [facility] Comment on above: Order Comment: Speci men Type: BLOOD SPECIMENOrdering Facility: [facility] Address: [address] [place], [place] [address] Performed By: #### 2 4323-8, 40700-4, 2777-1, 3084-1 ####[facility] LABCLIA [id number] [place] [address] [place] AST [Catalytic activity/Vol] 15 U/L Normal 13-35 [facility] Comment on above: Order Comment: Speci men Type: BLOOD SPECIMENOrdering Facility: [facility] Address: [address] [place] [address] Performed By: #### 2 4323-8, 55005-1, 2777-1, 3084-1 ####[facility] LABCLIA [id number] [place] [address] [place] Bilirubin [Mass/Vol] 0.3 mg/dL Normal 0.2-1.3 [facility] Comment on above: Order Comment: Speci men Type: BLOOD SPECIMENOrdering Facility: [facility] Address: [address] [place] [address] Performed By: #### 2 4323-8, 32030-4, 277-1, 3084-1 ####[facility] LABCLIA [id number] [place] [address] [place] Calcium [Mass/Vol] 8.7 mg/dL Normal 8.5-10.2 [facility] Comment on above: Order Comment: Speci men Type: BLOOD SPECIMENOrdering Facility: [facility] Address: [address] [place] [address] Performed By: #### 2 4323-8, 07069-3, 277-1, 3084-1 ####[facility] LABCLIA [id number] [place] [address] [place] Chloride [Moles/Vol] 110 mmol/L High 97-105 [facility] Comment on above: Order Comment: Speci men Type: BLOOD SPECIMENOrdering Facility: [facility] Address: [address] [place] [address] Performed By: #### 2 4323-8, 75432-3, 2776-09, 3083-09 ####[facility] [id number] [place] [id number] [place] CO2 [Moles/Vol] 21 mmol/L Low 22-30 [facility] Comment on above: Order Comment: Speci men Type: BLOOD SPECIMENOrdering Facility: [facility] Address: [address] [place] [address] Performed By: #### 2 4323-8, 10419-7, 2776-09, 3083- ####[facility] [id number] [place] [address] [place] Creatinine [Mass/Vol] 1.09 mg/dL High 0.58-0.96 [facility] Comment on above: Order Comment: Speci men Type: BLOOD SPECIMENOrdering Facility: [facility] Address: [address] [place] [address] Performed By: #### 2 4323-8, 42080-9, 2776-09, 3083-09 ####[facility] [id number] [place] [address] [place] Creatinine and Glomerular filtration rate.predicted panel (S/P/Bld) 55 mL/min/1.73m??? Low >=60 [facility] Comment on above: Order Comment: Speci men Type: BLOOD SPECIMENOrdering Facility: [facility] Address: [address] [place] [address] Result Comment: Berenice mated Glomerular Filtration Rate [...] actual GFR. Performed By: #### 2 4323-8, 23986-2, 2776-, 3083-1 ####[facility] LABCLIA [id number] [place] [address] [place] Glucose [Mass/Vol] 107 mg/dL High 74-99 [facility] Comment on above: Order Comment: Speci men Type: BLOOD SPECIMENOrdering Facility: [facility] Address: [address] [place] [address] Result Comment: The [place] [employer] (ADA) provides guidance for cutoff [...] Standards of Medical Care in Diabetes 2016, [place] [employer]. Diabetes Care. 2016.39(Suppl 1). Performed By: #### 2 4323-8, 86836-7, 2777-1, 3084-1 ####[facility] LABIA [id number] [place] [address] [place] Potassium [Moles/Vol] 3.8 mmol/L Normal 3.7-5.1 [facility] Comment on above: Order Comment: Speci men Type: BLOOD SPECIMENOrdering Facility: [facility] Address: [address] [place] [address] Performed By: #### 2 4323-8, 54956-7, 2777-1, 3084-1 ####[facility] LABIA [id number] [place] [address] [place] Protein [Mass/Vol] 5.4 g/dL Low 6.3-8.0 [facility] Comment on above: Order Comment: Speci men Type: BLOOD SPECIMENOrdering Facility: [facility] Address: [address] [place] [address] Performed By: #### 2 4323-8, 37135-0, 2777-1, 3084-1 ####[facility] LABIA [id number] [address] [address] [place] Sodium [Moles/Vol] 141 mmol/L Normal 136-144 [facility] Comment on above: Order Comment: Speci men Type: BLOOD SPECIMENOrdering Facility: [facility] Address: [address] [place], [place] [address] Performed By: #### 2 4323-8, 85755-6, 2777-1, 3084-1 ####[facility] [id number] [place] [id number] [place] Urea nitrogen [Mass/Vol] 14 mg/dL Normal 7-21 [facility] Comment on above: Order Comment: Speci men Type: BLOOD SPECIMENOrdering Facility: [facility] Address: [address] [place], [place] [address] Performed By: #### 2 4323-8, 53230-8, 277-1, 3084-1 ####[facility] [id number] [place] [id number] [place] Magnesium SerPl-mCncon 06-07 Magnesium [Mass/Vol] 2.1 mg/dL Normal 1.7-2.3 [facility] Comment on above: Order Comment: Speci men Type: BLOOD SPECIMENOrdering Facility: [facility] Address: [address] [place], [place] [address] Performed By: #### 2 4323-8, 82578-8, 277-1, 3084-1 ####[facility] [id number] [place] [id number] [place] Phosphate SerPl-mCncon 06-07 Phosphate [Mass/Vol] 2.5 mg/dL Low 2.7-4.8 [facility] Comment on above: Order Comment: Speci men Type: BLOOD SPECIMENOrdering Facility: [facility] Address: [facility] [place] [address] Performed By: #### 2 4323-8, 65399-9, 2776-1, 3084-1 ####[facility] LABCLIA [id number] [place] [address] [place] SOCIAL WORKon 06-07-2023 SOCIAL WORK Normal [facility] SOCIAL WORK Normal [facility] Urate SerPl-mCncon 3 Urate [Mass/Vol] 2.8 mg/dL Normal 2.5-6.6 [facility] Comment on above: Order Comment: Speci men Type: BLOOD SPECIMENOrdering Facility: [facility] Address: [address] [place] [address] Performed By: #### 2 4323-8, 69601-0, 2776-09, 3084-1 ####[facility] LABCLIA [id number] [place] [address] [place] CBC W Auto Differential pane l (Bld)on 06-06-2023 Anisocytosis Ql (Bld) Present Normal [facility] Comment on above: Order Comment: Speci men Type: BLOOD SPECIMENOrdering Facility: [facility] Address: [address] [place] [address] Performed By: #### 5 7021-8 ####[facility] LABCLIA [id number] [place] [address] [place] Basophils (Bld) [#/Vol] 0.00 10*3/uL Normal <0.11 [facility] Comment on above: Order Comment: Speci men Type: BLOOD SPECIMENOrdering Facility: [facility] Address: [address] [place] [address] Performed By: #### 5 7021-8 ####[facility] LABCLIA [id number] [place] [address] [place] Basophils/100 WBC (Bld) 0.0 % Normal [facility] Comment on above: Order Comment: Speci men Type: BLOOD SPECIMENOrdering Facility: [facility] Address: [address] [place] [address] Performed By: #### 5 7021-8 ####[facility] LABCLIA [id number] [place] [address] [place] Dacrocytes LM Ql (Bld) Few Normal [facility] Comment on above: Order Comment: Speci men Type: BLOOD SPECIMENOrdering Facility: [facility] Address: [address] [place] [address] Performed By: #### 5 7021-8 ####[facility] LABCLIA [id number] [place] [address] [place] Differential cell count method Nom (Bld) Manual Normal [facility] Comment on above: Order Comment: Speci men Type: BLOOD SPECIMENOrdering Facility: [facility] Address: [address] [place] [address] Performed By: #### 5 7021-8 ####[facility] LABCLIA [id number] [place] [address] [place] Eosinophils (Bld) [#/Vol] 0.00 10*3/uL Normal <0.46 [facility] Comment on above: Order Comment: Speci men Type: BLOOD SPECIMENOrdering Facility: [facility] Address: [address] [place] [address] Performed By: #### 5 7021-8 ####[facility] LABCLIA [id number] [place] [address] [place] Eosinophils/100 WBC (Bld) 0.4 % Normal [facility] Comment on above: Order Comment: Speci men Type: BLOOD SPECIMENOrdering Facility: [facility] Address: [address] [place] [address] Performed By: #### 5 7021-8 ####[facility] LABCLIA [id number] [place] [address] [place] Erythrocyte distribution width (RBC) [Ratio] 18.8 % High 11.5-15.0 [facility] Comment on above: Order Comment: Speci men Type: BLOOD SPECIMENOrdering Facility: [facility] Address: [address] [place] [address] Performed By: #### 5 7021-8 ####[facility] LABCLIA [id number] [place] [address] [place] Hematocrit (Bld) [Volume fraction] 28.5 % Low 36.0-46.0 [facility] Comment on above: Order Comment: Speci men Type: BLOOD SPECIMENOrdering Facility: [facility] Address: [address] [place] [address] Performed By: #### 5 7021-8 ####[facility] LABIA [id number] [place] [address] [place] Hemoglobin (Bld) [Mass/Vol] 9.6 g/dL Low 11.5-15.5 [facility] Comment on above: Order Comment: Speci men Type: BLOOD SPECIMENOrdering Facility: [facility] Address: [address] [place] [address] Performed By: #### 5 7021-8 ####[facility] LABIA [id number] [place] [address] [place] Lymphocytes (Bld) [#/Vol] 0.86 10*3/uL Low 1.00-4.00 [facility] Comment on above: Order Comment: Speci men Type: BLOOD SPECIMENOrdering Facility: [facility] Address: [address] [place] [address] Performed By: #### 5 7021-8 ####[facility] LABCLIA [id number] [place] [address] [place] Lymphocytes/100 WBC (Bld) 91.2 % Normal [facility] Comment on above: Order Comment: Speci men Type: BLOOD SPECIMENOrdering Facility: [facility] Address: [facility] [place] [address] Performed By: #### 5 7021-8 ####[facility] LABIA [id number] [place] [address] [place] MCH (RBC) [Entitic mass] 32.0 pg Normal 26.0-34.0 [facility] Comment on above: Order Comment: Speci men Type: BLOOD SPECIMENOrdering Facility: [facility] Address: [address] [place] [address] Performed By: #### 5 7021-8 ####[facility] [id number] [place] [address] [place] MCHC (RBC) [Mass/Vol] 33.7 g/dL Normal 30.5-36.0 [facility] Comment on above: Order Comment: Speci men Type: BLOOD SPECIMENOrdering Facility: [facility] Address: [address] [place] [address] Performed By: #### 5 7021-8 ####[facility] [id number] [place] [address] [place] MCV (RBC) [Entitic vol] 95.0 fL Normal 80.0-100.0 [facility] Comment on above: Order Comment: Speci men Type: BLOOD SPECIMENOrdering Facility: [facility] Address: [address] [place] [address] Performed By: #### 5 7021-8 ####[facility]IA [id number] [place] [address] [place] Monocytes (Bld) [#/Vol] 0.00 10*3/uL Normal <0.87 [facility] Comment on above: Order Comment: Speci men Type: BLOOD SPECIMENOrdering Facility: [facility] Address: [address] [place] [address] Performed By: #### 5 7021-8 ####[facility] LABIA [id number] [place] [address] [place] Monocytes/100 WBC (Bld) 0.0 % Normal [facility] Comment on above: Order Comment: Speci men Type: BLOOD SPECIMENOrdering Facility: [facility] Address: [address] [place] [address] Performed By: #### 5 7021-8 ####[facility] LABCLIA [id number] [place] [address] [place] Neutrophils (Bld) [#/Vol] 0.08 10*3/uL Low 1.45-7.50 [facility] Comment on above: Order Comment: Speci men Type: BLOOD SPECIMENOrdering Facility: [facility] Address: [address] [place] [address] Performed By: #### 5 7021-8 ####[facility] LABCLIA [id number] [place] [address] [place] Neutrophils/100 WBC (Bld) 8.4 % Normal [facility] Comment on above: Order Comment: Speci men Type: BLOOD SPECIMENOrdering Facility: [facility] Address: [address] [place] [address] Performed By: #### 5 7021-8 ####[facility] LABCLIA [id number] [place] [address] [place] Nucleated RBC (Bld) [#/Vol] 10*3/uL Normal <0.01 [facility] Comment on above: Order Comment: Speci men Type: BLOOD SPECIMENOrdering Facility: [facility] Address: [address] [place] [address] Performed By: #### 5 7021-8 ####[facility] LABCLIA [id number] [place] [address] [place] Nucleated RBC/100 WBC (Bld) [Ratio] 0.0 /100 WBC Normal [facility] Comment on above: Order Comment: Speci men Type: BLOOD SPECIMENOrdering Facility: [facility] Address: [address] [place] [address] Performed By: #### 5 7021-8 ####[facility] LABIA [id number] [place] [address] [place] Ovalocytes LM Ql (Bld) Few Normal [facility] Comment on above: Order Comment: Speci men Type: BLOOD SPECIMENOrdering Facility: [facility] Address: [address] [place] [address] Performed By: #### 5 7021-8 ####[facility] LABIA [id number] [place] [address] [place] Platelet mean volume (Bld) [Entitic vol] Normal [facility] Comment on above: Order Comment: Speci men Type: BLOOD SPECIMENOrdering Facility: [facility] Address: [address] [place] [address] Result Comment: Unab le to Report. Performed By: #### 5 7021-8 ####[facility] LABIA [id number] [place] [address] [place] Platelets (Bld) [#/Vol] 12 10*3/uL Low 150-400 [facility] Comment on above: Order Comment: Speci men Type: BLOOD SPECIMENOrdering Facility: [facility] Address: [address] [place] [address] Result Comment: Resu lts checked and verified.No clot detected. Performed By: #### 5 7021-8 ####[facility] LABIA [id number] [place] [address] [place] Platelets Estimate (Bld) [#/Vol] Decreased Normal [facility] Comment on above: Order Comment: Speci men Type: BLOOD SPECIMENOrdering Facility: [facility] Address: [address] [place] [address] Performed By: #### 5 7021-8 ####[facility] LABIA [id number] [place] [id number] [place] RBC (Bld) [#/Vol] 3.00 10*6/uL Low 3.90-5.20 [facility] Comment on above: Order Comment: Speci men Type: BLOOD SPECIMENOrdering Facility: [facility] Address: [address] [place] [address] Performed By: #### 5 7021-8 ####[facility] LABCLIA [id number] [place] [address] [place] RBC FRAGMENTS Few Abnormal None Seen [facility] Comment on above: Order Comment: Speci men Type: BLOOD SPECIMENOrdering Facility: [facility] Address: [address] [place] [address] Performed By: #### 5 7021-8 ####[facility] LABCLIA [id number] [place] [address] [place] RED CELL MORPH Reviewed: see result s of individual morphologies Normal [facility] Comment on above: Order Comment: Speci men Type: BLOOD SPECIMENOrdering Facility: [facility] Address: [address] [place] [address] Performed By: #### 5 7021-8 ####[facility] LABCLIA [id number] [place] [address] [place] WBC (Bld) [#/Vol] 0.94 10*3/uL Low 3.70-11.00 [facility] Comment on above: Order Comment: Speci men Type: BLOOD SPECIMENOrdering Facility: [facility] Address: [address] [place] [address] Result Comment: No c lot detected. Performed By: #### 5 7021-8 ####[facility] LABCLIA [id number] [place] [address] [place] CBC panel Auto (Bld)on 06-06 Erythrocyte distribution width (RBC) [Ratio] 18.6 % High 11.5-15.0 [facility] Comment on above: Order Comment: Speci men Type: BLOOD SPECIMENOrdering Facility: [facility] Address: [address] [place] [address] Performed By: #### 5 8410-2 ####[facility] LABIA [id number] [address] [place] Hematocrit (Bld) [Volume fraction] 21.7 % Low 36.0-46.0 [facility] Comment on above: Order Comment: Speci men Type: BLOOD SPECIMENOrdering Facility: [facility] Address: [address] [place] [address] Performed By: #### 5 8410-2 ####[facility] LABIA [id number] [address] [place] Hemoglobin (Bld) [Mass/Vol] 7.3 g/dL Low 11.5-15.5 [facility] Comment on above: Order Comment: Speci men Type: BLOOD SPECIMENOrdering Facility: [facility] Address: [address] [place] [address] Performed By: #### 5 8410-2 ####[facility] LABIA [id number] [address] [place] MCH (RBC) [Entitic mass] 32.2 pg Normal 26.0-34.0 [facility] Comment on above: Order Comment: Speci men Type: BLOOD SPECIMENOrdering Facility: [facility] Address: [address] Performed By: #### 5 8410-2 ####[facility] LABIA [id number] [address] [place] MCHC (RBC) [Mass/Vol] 33.6 g/dL Normal 30.5-36.0 [facility] Comment on above: Order Comment: Speci men Type: BLOOD SPECIMENOrdering Facility: [facility] Address: [address] Performed By: #### 5 8410-2 ####[facility] LABIA [id number] [address] [place] MCV (RBC) [Entitic vol] 95.6 fL Normal 80.0-100.0 [facility] Comment on above: Order Comment: Speci men Type: BLOOD SPECIMENOrdering Facility: [facility] Address: [address] [place] [address] Performed By: #### 5 8410-2 ####[facility] LABIA [id number] [place] [address] [place] Nucleated RBC (Bld) [#/Vol] 0.02 10*3/uL High <0.01 [facility] Comment on above: Order Comment: Speci men Type: BLOOD SPECIMENOrdering Facility: [facility] Address: [address] [place] [address] Performed By: #### 5 8410-2 ####[facility] [id number] [address] [place] Platelet mean volume (Bld) [Entitic vol] Normal [facility] Comment on above: Order Comment: Speci men Type: BLOOD SPECIMENOrdering Facility: [facility] Address: [address] [place] [address] Result Comment: Unab le to Report. Performed By: #### 5 8410-2 ####[facility] [id number] [address] Platelets (Bld) [#/Vol] 14 10*3/uL Low 150-400 [facility] Comment on above: Order Comment: Speci men Type: BLOOD SPECIMENOrdering Facility: [facility] Address: [address] [place] [address] Result Comment: Resu lts checked and verified.No clot detected. Performed By: #### 5 8410-2 ####[facility] LABIA [id number] [place] [address] [place] RBC (Bld) [#/Vol] 2.27 10*6/uL Low 3.90-5.20 [facility] Comment on above: Order Comment: Speci men Type: BLOOD SPECIMENOrdering Facility: [facility] Address: [address] [place] [address] Performed By: #### 5 8410-2 ####[facility] LABCLIA [id number] [place] [address] [place] WBC (Bld) [#/Vol] 1.17 10*3/uL Low 3.70-11.00 [facility] Comment on above: Order Comment: Speci men Type: BLOOD SPECIMENOrdering Facility: [facility] Address: [address] [place] [address] Result Comment: No c lot detected. Performed By: #### 5 8410-2 ####[facility] LABCLIA [id number] [place] [address] [place] [facility] Comprehensive metabolic 2000 panelon 06-06-2023 Albumin [Mass/Vol] 3.6 g/dL Low 3.9-4.9 [facility] Comment on above: Order Comment: Speci men Type: BLOOD SPECIMENOrdering Facility: [facility] Address: [address] [place] [address] Performed By: #### 1 9123-9, 2777-1, 3084-1, 36338-1 ####[facility] LABCLIA [id number] [place] [address] [place] ALP [Catalytic activity/Vol] 59 U/L Normal 34-123 [facility] Comment on above: Order Comment: Speci men Type: BLOOD SPECIMENOrdering Facility: [facility] Address: [address] [place] [address] Performed By: #### 1 9123-9, 2777-1, 3084-1, 57357-9 ####[facility] LABCLIA [id number] [place] [address] [place] ALT [Catalytic activity/Vol] 21 U/L Normal 7-38 [facility] Comment on above: Order Comment: Speci men Type: BLOOD SPECIMENOrdering Facility: [facility] Address: [address] [place] [address] Performed By: #### 1 9123-9, 2777-1, 308-, 34654-3 ####[facility] LABCLIA [id number] [place] [address] [place] Anion gap [Moles/Vol] 11 mmol/L Normal 9-18 [facility] Comment on above: Order Comment: Speci men Type: BLOOD SPECIMENOrdering Facility: [facility] Address: [address] [place] [address] Performed By: #### 1 9123-9, 2777-, 3083-09, 16787-6 ####[facility] LABIA [id number] [place] [address] [place] AST [Catalytic activity/Vol] 15 U/L Normal 13-35 [facility] Comment on above: Order Comment: Speci men Type: BLOOD SPECIMENOrdering Facility: [facility] Address: [address] [place] [address] Performed By: #### 1 9123-9, 2777-, 3083-09, 21473-5 ####[facility] LABIA [id number] [place] [address] [place] Bilirubin [Mass/Vol] 0.4 mg/dL Normal 0.2-1.3 [facility] Comment on above: Order Comment: Speci men Type: BLOOD SPECIMENOrdering Facility: [facility] Address: [address] [place], [place] [address] Performed By: #### 1 9123-9, 2777-1, 308-, 71754-0 ####[facility] LABCLIA [id number] [place] [address] [place] Calcium [Mass/Vol] 8.8 mg/dL Normal 8.5-10.2 [facility] Comment on above: Order Comment: Speci men Type: BLOOD SPECIMENOrdering Facility: [facility] Address: [address] [place] [address] Performed By: #### 1 9123-9, 2777-1, 3083-, 35942-5 ####[facility] LABCLIA [id number] [place] [address] [place] Chloride [Moles/Vol] 108 mmol/L High 97-105 [facility] Comment on above: Order Comment: Speci men Type: BLOOD SPECIMENOrdering Facility: [facility] Address: [address] [place] [address] Performed By: #### 1 9123-9, 277-, 3083-09, 03637-6 ####[facility] LABCLIA [id number] [place] [address] [place] CO2 [Moles/Vol] 21 mmol/L Low 22-30 [facility] Comment on above: Order Comment: Speci men Type: BLOOD SPECIMENOrdering Facility: [facility] Address: [address] [place] [address] Performed By: #### 1 9123-9, 277-, 3083-09, 40254-3 ####[facility] LABCLIA [id number] [place] [address] [place] Creatinine [Mass/Vol] 1.06 mg/dL High 0.58-0.96 [facility] Comment on above: Order Comment: Speci men Type: BLOOD SPECIMENOrdering Facility: [facility] Address: [address] [place] [address] Performed By: #### 1 9123-9, 2777-1, 308-, 41150-4 ####[facility] LABCLIA [id number] [place] [address] [place] Creatinine and Glomerular filtration rate.predicted panel (S/P/Bld) 57 mL/min/1.73m??? Low >=60 [facility] Comment on above: Order Comment: Elvia escobar Type: BLOOD SPECIMENOrdering Facility: [facility] Address: [address] [place] [address] Result Comment: Berenice mated Glomerular Filtration Rate [...] Performed By: #### 1 9123-9, 2777-1, 3084-1, 29218-9 ####[facility] LABCLIA [id number] [place] [address] [place] Glucose [Mass/Vol] 107 mg/dL High 74-99 [facility] Comment on above: Order Comment: Elvia escobar Type: BLOOD SPECIMENOrdering Facility: [facility] Address: [address] [place] [address] Result Comment: The [place] [employer] (ADA) provides guidance for cutoff [...] Standards of Medical Care in Diabetes 2016, [place] [employer]. Diabetes Care. 2016.39(Suppl 1). Performed By: #### 1 9123-9, 2777-1, 3084-1, 95342-3 ####[facility] LABCLIA [id number] [place] [address] [place] Potassium [Moles/Vol] 3.4 mmol/L Low 3.7-5.1 [facility] Comment on above: Order Comment: Speci men Type: BLOOD SPECIMENOrdering Facility: [facility] Address: [address] [place] [address] Performed By: #### 1 9123-9, 277-1, 3083-09, 92901-8 ####[facility] LABCLIA [id number] [place] [address] [place] Protein [Mass/Vol] 5.6 g/dL Low 6.3-8.0 [facility] Comment on above: Order Comment: Speci men Type: BLOOD SPECIMENOrdering Facility: [facility] Address: [address] [place] [address] Performed By: #### 1 9123-9, 277-, 3083-09, 21249-4 ####[facility] LABIA [id number] [place] [address] [place] Sodium [Moles/Vol] 140 mmol/L Normal 136-144 [facility] Comment on above: Order Comment: Speci men Type: BLOOD SPECIMENOrdering Facility: [facility] Address: [address] [place], [place] [address] Performed By: #### 1 9123-9, 277-, 3083-09, 46545-4 ####[facility] LABCLIA [id number] [address] [address] [place] Urea nitrogen [Mass/Vol] 16 mg/dL Normal 7-21 [facility] Comment on above: Order Comment: Speci men Type: BLOOD SPECIMENOrdering Facility: [facility] Address: [address] [place] [address] Performed By: #### 1 9123-9, 2777-1, 3083-, 34363-1 ####[facility] LABCLIA [id number] [place] [address] [place] Magnesium SerPl-ncon 06-06 Magnesium [Mass/Vol] 2.0 mg/dL Normal 1.7-2.3 [facility] Comment on above: Order Comment: Speci men Type: BLOOD SPECIMENOrdering Facility: [facility] Address: [address] [place] [address] Performed By: #### 1 9123-9, 2777-1, 3084-1, 44938-6 ####[facility] LABCLIA [id number] [place] [address] [place] Phosphate SerPl-mCncon 06-06 Phosphate [Mass/Vol] 2.8 mg/dL Normal 2.7-4.8 [facility] Comment on above: Order Comment: Speci men Type: BLOOD SPECIMENOrdering Facility: [facility] Address: [address] [place] [address] Performed By: #### 1 9123-9, 2777-1, 3084-1, 86850-6 ####[facility] LABIA [id number] [address] [place] TYPE + SCREENon 06-06-2023 ABO O Normal [facility] Comment on above: Order Comment: Speci men Type: BLOOD SPECIMENOrdering Facility: [facility] Address: [address] [place] [address] Performed By: #### T SCR ####[facility] [id number] [place] [address] [place] HISTORICAL AB SCR STATUS Negative Normal [facility] Comment on above: Order Comment: Speci men Type: BLOOD SPECIMENOrdering Facility: [facility] Address: [address] [place] [address] Performed By: #### T SCR ####[facility] [id number] [address] [place] Rh Nom (Bld) Positive Normal [facility] Comment on above: Order Comment: Speci men Type: BLOOD SPECIMENOrdering Facility: [facility] Address: [address] [place] [address] Performed By: #### T SCR ####[facility] BLOOD BANKCLIA [id number] [place] [address] [place] TYPE AND SCREEN EXPIRATION 06/09/2023 23:59 Normal [facility] Comment on above: Order Comment: Speci men Type: BLOOD SPECIMENOrdering Facility: [facility] Address: [address] [place] [address] Performed By: #### T SCR ####[facility] [id number] [address] [place] Urate SerPl-mCncon 3 Urate [Mass/Vol] 2.9 mg/dL Normal 2.5-6.6 [facility] Comment on above: Order Comment: Speci men Type: BLOOD SPECIMENOrdering Facility: [facility] Address: [address] [place] [address] Performed By: #### 1 9123-9, 2777-1, 3084-1, 40157-4 ####[facility] LABCLIA [id number] [place] [address] [place] CBC W Auto Differential pane l (Bld)on 06-05-2023 Anisocytosis Ql (Bld) Present Normal [facility] Comment on above: Order Comment: Speci men Type: BLOOD SPECIMENOrdering Facility: [facility] Address: [address] [place] [address] Performed By: #### 5 7021-8 ####[facility] LABCLIA [id number] [place] [address] [place] Basophils (Bld) [#/Vol] 0.00 10*3/uL Normal <0.11 [facility] Comment on above: Order Comment: Speci men Type: BLOOD SPECIMENOrdering Facility: [facility] Address: [address] [place], [place] [address] Performed By: #### 5 7021-8 ####[facility] LABCLIA [id number] [place] [address] [place] Basophils/100 WBC (Bld) 0.0 % Normal [facility] Comment on above: Order Comment: Speci men Type: BLOOD SPECIMENOrdering Facility: [facility] Address: [address] [place], [place] [address] Performed By: #### 5 7021-8 ####[facility] LABCLIA [id number] [place] [address] [place] Dacrocytes LM Ql (Bld) Few Normal [facility] Comment on above: Order Comment: Speci men Type: BLOOD SPECIMENOrdering Facility: [facility] Address: [address] [place], [place] [address] Performed By: #### 5 7021-8 ####[facility] LABCLIA [id number] [place] [address] [place] Differential cell count method Nom (Bld) Manual Normal [facility] Comment on above: Order Comment: Speci men Type: BLOOD SPECIMENOrdering Facility: [facility] Address: [address] [place], [place] [address] Performed By: #### 5 7021-8 ####[facility] LABCLIA [id number] [place] [address] [place] Eosinophils (Bld) [#/Vol] 0.02 10*3/uL Normal <0.46 [facility] Comment on above: Order Comment: Speci men Type: BLOOD SPECIMENOrdering Facility: [facility] Address: [address] [place], [place] [address] Performed By: #### 5 7021-8 ####[facility] LABCLIA [id number] [place] [address] [place] Eosinophils/100 WBC (Bld) 1.7 % Normal [facility] Comment on above: Order Comment: Speci men Type: BLOOD SPECIMENOrdering Facility: [facility] Address: [address] [place] [address] Performed By: #### 5 7021-8 ####[facility] LABIA [id number] [place] [address] [place] Erythrocyte distribution width (RBC) [Ratio] 19.0 % High 11.5-15.0 [facility] Comment on above: Order Comment: Speci men Type: BLOOD SPECIMENOrdering Facility: [facility] Address: [address] [place] [address] Performed By: #### 5 7021-8 ####[facility] LABIA [id number] [place] [address] [place] Hematocrit (Bld) [Volume fraction] 21.7 % Low 36.0-46.0 [facility] Comment on above: Order Comment: Speci men Type: BLOOD SPECIMENOrdering Facility: [facility] Address: [address] [place] [address] Performed By: #### 5 7021-8 ####[facility] LABIA [id number] [place] [address] [place] Hemoglobin (Bld) [Mass/Vol] 7.4 g/dL Low 11.5-15.5 [facility] Comment on above: Order Comment: Speci men Type: BLOOD SPECIMENOrdering Facility: [facility] Address: [address] [place], [place] [address] Performed By: #### 5 7021-8 ####[facility] LABIA [id number] [place] [address] [place] Lymphocytes (Bld) [#/Vol] 1.09 10*3/uL Normal 1.00-4.00 [facility] Comment on above: Order Comment: Speci men Type: BLOOD SPECIMENOrdering Facility: [facility] Address: [address] [place], [place] [address] Performed By: #### 5 7021-8 ####[facility] LABIA [id number] [address] [place] Lymphocytes/100 WBC (Bld) 85.2 % Normal [facility] Comment on above: Order Comment: Speci men Type: BLOOD SPECIMENOrdering Facility: [facility] Address: [address] [place], [place] [address] Performed By: #### 5 7021-8 ####[facility] LABIA [id number] [address] [place] MCH (RBC) [Entitic mass] 32.2 pg Normal 26.0-34.0 [facility] Comment on above: Order Comment: Speci men Type: BLOOD SPECIMENOrdering Facility: [facility] Address: [address] [place], [place] [address] Performed By: #### 5 7021-8 ####[facility] LABIA [id number] [address] [place] MCHC (RBC) [Mass/Vol] 34.1 g/dL Normal 30.5-36.0 [facility] Comment on above: Order Comment: Speci men Type: BLOOD SPECIMENOrdering Facility: [facility] Address: [address] [place] [address] Performed By: #### 5 7021-8 ####[facility] LABIA [id number] [address] [place] MCV (RBC) [Entitic vol] 94.3 fL Normal 80.0-100.0 [facility] Comment on above: Order Comment: Speci men Type: BLOOD SPECIMENOrdering Facility: [facility] Address: [address] [place], [place] [address] Performed By: #### 5 7021-8 ####[facility] LABCLIA [id number] [place] [address] [place] Monocytes (Bld) [#/Vol] 0.01 10*3/uL Normal <0.87 [facility] Comment on above: Order Comment: Speci men Type: BLOOD SPECIMENOrdering Facility: [facility] Address: [address] [place], [place] [id number] Performed By: #### 5 7021-8 ####[facility] LABCLIA [id number] [place] [address] [place] Monocytes/100 WBC (Bld) 0.9 % Normal [facility] Comment on above: Order Comment: Speci men Type: BLOOD SPECIMENOrdering Facility: [facility] Address: [address] [place], [place] [id number] Performed By: #### 5 7021-8 ####[facility] LABIA [id number] [place] [address] [place] Neutrophils (Bld) [#/Vol] 0.16 10*3/uL Low 1.45-7.50 [facility] Comment on above: Order Comment: Speci men Type: BLOOD SPECIMENOrdering Facility: [facility] Address: [address] [place], [place] [id number] Performed By: #### 5 7021-8 ####[facility] LABCLIA [id number] [place] [address] [place] Neutrophils/100 WBC (Bld) 12.2 % Normal [facility] Comment on above: Order Comment: Speci men Type: BLOOD SPECIMENOrdering Facility: [facility] Address: [address] [place], [place] [address] Performed By: #### 5 7021-8 ####[facility] LABCLIA [id number] [place] [address] [place] Nucleated RBC (Bld) [#/Vol] 0.01 10*3/uL High <0.01 [facility] Comment on above: Order Comment: Speci men Type: BLOOD SPECIMENOrdering Facility: [facility] Address: [address] [place] [address] Performed By: #### 5 7021-8 ####[facility] LABCLIA [id number] [address] [place] Nucleated RBC/100 WBC (Bld) [Ratio] 0.9 /100 WBC Normal [facility] Comment on above: Order Comment: Speci men Type: BLOOD SPECIMENOrdering Facility: [facility] Address: [address] [place] [address] Performed By: #### 5 7021-8 ####[facility] LABCLIA [id number] [place] [address] [place] Ovalocytes LM Ql (Bld) Few Normal [facility] Comment on above: Order Comment: Speci men Type: BLOOD SPECIMENOrdering Facility: [facility] Address: [address] [place] [address] Performed By: #### 5 7021-8 ####[facility] LABIA [id number] [place] [address] [place] Platelet mean volume (Bld) [Entitic vol] Normal [facility] Comment on above: Order Comment: Speci men Type: BLOOD SPECIMENOrdering Facility: [facility] Address: [address] [place], [place] [address] Result Comment: Unab le to Report. Performed By: #### 5 7021-8 ####[facility] LABIA [id number] [place] [address] [place] Platelets (Bld) [#/Vol] 7 10*3/uL Critically low 150-400 [facility] Comment on above: Order Comment: Speci men Type: BLOOD SPECIMENOrdering Facility: [facility] Address: [address] [place], [place] [address] Result Comment: Plat elet count confirmed by manual review of peripheral blood smear. No clot detected.Results checked and verified. Performed By: #### 5 7021-8 ####[facility] LABIA [id number] [address] STATES OF [facility] Platelets Estimate (Bld) [#/Vol] Adequate Normal [facility] Comment on above: Order Comment: Speci men Type: BLOOD SPECIMENOrdering Facility: [facility] Address: [address] Performed By: #### 5 7021-8 ####[facility] [id number] [address] STATES OF [facility] RBC (Bld) [#/Vol] 2.30 10*6/uL Low 3.90-5.20 [facility] Comment on above: Order Comment: Speci men Type: BLOOD SPECIMENOrdering Facility: [facility] Address: [address] [place], [place] [address] Performed By: #### 5 7021-8 ####[facility] [id number] [address] STATES [facility] [employer] MORPH Reviewed: see result s of individual morphologies Normal [facility] Comment on above: Order Comment: Speci men Type: BLOOD SPECIMENOrdering Facility: [facility] Address: [address] [place], [place] [address] Performed By: #### 5 7021-8 ####[facility] [id number] [place] [address] [place] WBC (Bld) [#/Vol] 1.28 10*3/uL Low 3.70-11.00 [facility] Comment on above: Order Comment: Speci men Type: BLOOD SPECIMENOrdering Facility: [facility] Address: [address] [place], [place] [address] Result Comment: No c lot detected. Performed By: #### 5 7021-8 ####[facility] LABCLIA [id number] [place] [id number] [place] [facility] [place] Comprehensive metabolic 2000 panelon 06-05-2023 Albumin [Mass/Vol] 3.3 g/dL Low 3.9-4.9 [facility] Comment on above: Order Comment: Speci men Type: BLOOD SPECIMENOrdering Facility: [facility] Address: [address] [place] [address] Performed By: #### 2 4323-8, 04120-7, 277-1, 3084-1 ####[facility] LABIA [id number] [address] [place] ALP [Catalytic activity/Vol] 51 U/L Normal 34-123 [facility] Comment on above: Order Comment: Speci men Type: BLOOD SPECIMENOrdering Facility: [facility] Address: [address] [place] [address] Performed By: #### 2 4323-8, 69415-7, 277-1, 3084-1 ####[facility] LABIA [id number] [address] [place] ALT [Catalytic activity/Vol] 19 U/L Normal 7-38 [facility] Comment on above: Order Comment: Speci men Type: BLOOD SPECIMENOrdering Facility: [facility] Address: [address] [place], [place] [address] Performed By: #### 2 4323-8, 31145-0, 2776-1, 3084-1 ####[facility] LABIA [id number] [place] [address] [place] Anion gap [Moles/Vol] 11 mmol/L Normal 9-18 [facility] Comment on above: Order Comment: Speci men Type: BLOOD SPECIMENOrdering Facility: [facility] Address: [address] [place] [address] Performed By: #### 2 4323-8, , 2776-09, 3083- ####[facility] LABCLIA [id number] [place] [address] [place] AST [Catalytic activity/Vol] 21 U/L Normal 13-35 [facility] Comment on above: Order Comment: Speci men Type: BLOOD SPECIMENOrdering Facility: [facility] Address: [address] [place] [address] Performed By: #### 2 4323-8, , 2776-09, 3083- ####[facility] LABIA [id number] [place] [address] [place] Bilirubin [Mass/Vol] 0.4 mg/dL Normal 0.2-1.3 [facility] Comment on above: Order Comment: Speci men Type: BLOOD SPECIMENOrdering Facility: [facility] Address: [address] [place] [address] Performed By: #### 2 4323-8, , 2776-09, 308- ####[facility] LABIA [id number] [place] [address] [place] Calcium [Mass/Vol] 8.7 mg/dL Normal 8.5-10.2 [facility] Comment on above: Order Comment: Speci men Type: BLOOD SPECIMENOrdering Facility: [facility] Address: [address] [place] [address] Performed By: #### 2 4323-8, 73905-0, 2776-09, 308- ####[facility] LABIA [id number] [place] [address] [place] Chloride [Moles/Vol] 108 mmol/L High 97-105 [facility] Comment on above: Order Comment: Speci men Type: BLOOD SPECIMENOrdering Facility: [facility] Address: [address] [place] [address] Performed By: #### 2 4323-8, , 2776-09, 3083-09 ####[facility] LABCLIA [id number] [place] [address] [place] CO2 [Moles/Vol] 22 mmol/L Normal 22-30 [facility] Comment on above: Order Comment: Speci men Type: BLOOD SPECIMENOrdering Facility: [facility] Address: [address] [place] [address] Performed By: #### 2 432-8, , 2776-09, 3083-09 ####[facility] LABIA [id number] [place] [address] [place] Creatinine [Mass/Vol] 1.06 mg/dL High 0.58-0.96 [facility] Comment on above: Order Comment: Speci men Type: BLOOD SPECIMENOrdering Facility: [facility] Address: [address] [place] [address] Performed By: #### 2 432-8, , 2776-09, 3083-09 ####[facility] LABIA [id number] [place] [address] [place] Creatinine and Glomerular filtration rate.predicted panel (S/P/Bld) 57 mL/min/1.73m??? Low >=60 [facility] Comment on above: Order Comment: Speci men Type: BLOOD SPECIMENOrdering Facility: [facility] Address: [address] [place] [address] Result Comment: Berenice mated Glomerular Filtration Rate [...] actual GFR. Performed By: #### 2 4323-8, 98901-7, 2776-, 3083- ####[facility] LABCLIA [id number] [place] [address] [place] Glucose [Mass/Vol] 99 mg/dL Normal 74-99 [facility] Comment on above: Order Comment: Rochellei men Type: BLOOD SPECIMENOrdering Facility: [facility] Address: [address] [place], [place] [address] Result Comment: The [place] Diabetes Association (ADA) provides guidance for cutoff [...] Standards of Medical Care in Diabetes 2016, [place] [employer]. Diabetes Care. 2016.39(Suppl 1). Performed By: #### 2 4323-8, 27084-7, 2777-1, 3084-1 ####[facility] LABIA [id number] [place] [address] [place] Potassium [Moles/Vol] 3.5 mmol/L Low 3.7-5.1 [facility] Comment on above: Order Comment: Speci men Type: BLOOD SPECIMENOrdering Facility: [facility] Address: [address] [place] [address] Performed By: #### 2 4323-8, 25298-4, 2777-1, 3084-1 ####[facility] LABIA [id number] [place] [address] [place] Protein [Mass/Vol] 5.5 g/dL Low 6.3-8.0 [facility] Comment on above: Order Comment: Speci men Type: BLOOD SPECIMENOrdering Facility: [facility] Address: [address] [place] [address] Performed By: #### 2 4323-8, 68411-9, 2777-1, 3084-1 ####[facility] LABCLIA [id number] [place] [address] [place] Sodium [Moles/Vol] 141 mmol/L Normal 136-144 [facility] Comment on above: Order Comment: Speci men Type: BLOOD SPECIMENOrdering Facility: [facility] Address: [address] [place] [address] Performed By: #### 2 4323-8, 25570-1, 7-1, 3084-1 ####[facility] LABIA [id number] [place] [address] [place] Urea nitrogen [Mass/Vol] 12 mg/dL Normal 7-21 [facility] Comment on above: Order Comment: Speci men Type: BLOOD SPECIMENOrdering Facility: [facility] Address: [address] [place] [address] Performed By: #### 2 4323-8, 60653-1, 2777-1, 3084-1 ####[facility] LABIA [id number] [place] [address] [place] Magnesium SerPl-mCncon 06-05 Magnesium [Mass/Vol] 2.0 mg/dL Normal 1.7-2.3 [facility] Comment on above: Order Comment: Speci men Type: BLOOD SPECIMENOrdering Facility: [facility] Address: [address] Performed By: #### 2 4323-8, 40614-1, 2777-1, 3084-1 ####[facility] LABIA [id number] [place] [address] [place] NURSING PROGon 06-05-2023 NURSING PROG Normal [facility] NUTRITIONon 06-05-2023 NUTRITION Normal [facility] OUTSIDE BONE MARROW SLIDE RE VIEWon 06-05-2023 CASE REPORT Normal [facility] Comment on above: Order Comment: Speci men Type: FORMALIN-FIXED PARAFFIN-EMBEDDED TISSUE SPECIMENOrdering Facility: [facility] Outside Review Address: , , Result Comment: Bone Marrow Pathology Report Case: [id number] Provider: Mike Hughes MD Collected: 06/05/2023 04:00 PMOrdering Location: [facility] Received: 06/05/2023 03:57 PMPathologist: Mihaela Flowers MDSpecimen: SLIDE(S), 26 SLIDES (BM23-11) Performed By: #### L [id number] ####[facility] LABIA [id number] [address] DIAGNOSIS COMMENT Normal [facility] Comment on above: Order Comment: [...] Dixon from the hematopathology section at the [facility], and he concurs with the above rendered final diagnosis and interpretation. 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, [address] [place] [address] CLIA# [id number] Director: Boris Wood M.D. Performed By: #### L [id number] ####[facility] LABCLIA [id number] [address] MICROSCOPIC DESCRIPTION Normal [facility] Comment on above: Order Comment: [...] institution performed on the core biopsy (block YM31-11-C6) were reviewed at the [facility]. CD34 is difficult to interpret due to [...] institution performed on the clot section (block DW70-07-T0) were reviewed at the [facility]. CD3 highlights moderate numbers scattered positive T [...] section.ANCILLARY TESTS: Ancillary studies were performed at [facility] (see complete scanned reports in [facility] for detailed results). Flow cytometry: ([id number]) Reported to show CD34 positive blasts, comprising 29.8% of total cells that show expression of CD13, CD33, CD34 mod, CD117, HLA-DR, dim CD123, and are negative for cMPO, cCD3, cCD22, cCD79a, Tdt and CD11b. Cytogenetics: ([id number], 05/08/2023) were reported to show an abnormal complex female karyotype.43~45,XX,add(1)(q21),del(3)(q21q25),add(4)(q21),-5,add(7)( q11.2),del(7)(q32),-9,add(9)(q13),nehemiah(11)t(1;11)(q21;q23).-12.-16,+m ar[cp17]. FISH: N/A. Molecular: ([id number]) Molecular NGS studies were reported to show the following clinically significant variants:DNMT3A R635W (VAF 34.4%)RUNX1 F40Wfs*14 (VAF 20.9%)TP53 C238Y (VAF 63.9%) Performed By: #### L [id number] ####[facility] LABCLIA [id number] [facility] [id number] [place] [address] [place] Phosphate SerPl-mCncon 06-05 Phosphate [Mass/Vol] 2.6 mg/dL Low 2.7-4.8 [facility] Comment on above: Order Comment: Speci men Type: BLOOD SPECIMENOrdering Facility: [facility] Address: [address] [place] [address] [place] [address] Performed By: #### 2 4323-8, 60128-6, 2777-1, 3084-1 ####[facility] LABCLIA [id number] [place] [address] [place] Urate SerPl-mCncon 3 Urate [Mass/Vol] 3.0 mg/dL Normal 2.5-6.6 [facility] Comment on above: Order Comment: Speci men Type: BLOOD SPECIMENOrdering Facility: [facility] Address: [address] [place] [address] Performed By: #### 2 4323-8, 21268-0, 277-1, 3084-1 ####[facility] LABCLIA [id number] [address] [place] CASE MANAGEMon 06-04-2023 CASE MANAGEM Normal [facility] CBC W Auto Differential pane l (Bld)on 06-04-2023 Anisocytosis Ql (Bld) Present Normal [facility] Comment on above: Order Comment: Speci men Type: BLOOD SPECIMENOrdering Facility: [facility] Address: [address] [place] [address] Performed By: #### 5 7021-8 ####[facility] LABIA [id number] [place] [address] [place] Basophils (Bld) [#/Vol] 0.00 10*3/uL Normal <0.11 [facility] Comment on above: Order Comment: Speci men Type: BLOOD SPECIMENOrdering Facility: [facility] Address: [address] [place] [address] Performed By: #### 5 7021-8 ####[facility] LABCLIA [id number] [place] [address] [place] Basophils/100 WBC (Bld) 0.0 % Normal [facility] Comment on above: Order Comment: Speci men Type: BLOOD SPECIMENOrdering Facility: [facility] Address: [address] Performed By: #### 5 7021-8 ####[facility] LABCLIA [id number] [address] [place] BLAST% 1.0 % High <=0.0 [facility] Comment on above: Order Comment: Speci men Type: BLOOD SPECIMENOrdering Facility: [facility] Address: [address] [place] [address] Performed By: #### 5 7021-8 ####[facility] LABCLIA [id number] [address] [place] Differential cell count method Nom (Bld) Manual Normal [facility] Comment on above: Order Comment: Speci men Type: BLOOD SPECIMENOrdering Facility: [facility] Address: [address] [place], [place] [address] Performed By: #### 5 7021-8 ####[facility] LABCLIA [id number] [place] [address] [place] Eosinophils (Bld) [#/Vol] 0.01 10*3/uL Normal <0.46 [facility] Comment on above: Order Comment: Speci men Type: BLOOD SPECIMENOrdering Facility: [facility] Address: [address] Performed By: #### 5 7021-8 ####[facility] LABCLIA [id number] [address] [place] Eosinophils/100 WBC (Bld) 1.0 % Normal [facility] Comment on above: Order Comment: Speci men Type: BLOOD SPECIMENOrdering Facility: [facility] Address: [address] Performed By: #### 5 7021-8 ####[facility] LABCLIA [id number] [place] [address] [place] Erythrocyte distribution width (RBC) [Ratio] 19.4 % High 11.5-15.0 [facility] Comment on above: Order Comment: Speci men Type: BLOOD SPECIMENOrdering Facility: [facility] Address: [address] [place] [address] Performed By: #### 5 7021-8 ####[facility] LABCLIA [id number] [place] [address] [place] Hematocrit (Bld) [Volume fraction] 22.8 % Low 36.0-46.0 [facility] Comment on above: Order Comment: Speci men Type: BLOOD SPECIMENOrdering Facility: [facility] Address: [address] [place] [address] Performed By: #### 5 7021-8 ####[facility] LABCLIA [id number] [place] [address] [place] Hemoglobin (Bld) [Mass/Vol] 7.9 g/dL Low 11.5-15.5 [facility] Comment on above: Order Comment: Speci men Type: BLOOD SPECIMENOrdering Facility: [facility] Address: [address] [place], [place] [address] Performed By: #### 5 7021-8 ####[facility] LABIA [id number] [place] [address] [place] Lymphocytes (Bld) [#/Vol] 1.06 10*3/uL Normal 1.00-4.00 [facility] Comment on above: Order Comment: Speci men Type: BLOOD SPECIMENOrdering Facility: [facility] Address: [address] [place], [place] [address] Performed By: #### 5 7021-8 ####[facility] LABCLIA [id number] [place] [address] [place] Lymphocytes/100 WBC (Bld) 87.0 % Normal [facility] Comment on above: Order Comment: Speci men Type: BLOOD SPECIMENOrdering Facility: [facility] Address: [address] Performed By: #### 5 7021-8 ####[facility] [id number] [address] MCH (RBC) [Entitic mass] 32.6 pg Normal 26.0-34.0 [facility] Comment on above: Order Comment: Speci men Type: BLOOD SPECIMENOrdering Facility: [facility] Address: [address] Performed By: #### 5 7021-8 ####[facility] [id number] [address] [place] MCHC (RBC) [Mass/Vol] 34.6 g/dL Normal 30.5-36.0 [facility] Comment on above: Order Comment: Speci men Type: BLOOD SPECIMENOrdering Facility: [facility] Address: [address] Performed By: #### 5 7021-8 ####[facility] [id number] [address] [place] MCV (RBC) [Entitic vol] 94.2 fL Normal 80.0-100.0 [facility] Comment on above: Order Comment: Speci men Type: BLOOD SPECIMENOrdering Facility: [facility] Address: [address] Performed By: #### 5 7021-8 ####[facility] [id number] [place] [address] [place] Monocytes (Bld) [#/Vol] 0.00 10*3/uL Normal <0.87 [facility] Comment on above: Order Comment: Speci men Type: BLOOD SPECIMENOrdering Facility: [facility] Address: [address] Performed By: #### 5 7021-8 ####[facility] LABCLIA [id number] [place] [address] [place] Monocytes/100 WBC (Bld) 0.0 % Normal [facility] Comment on above: Order Comment: Speci men Type: BLOOD SPECIMENOrdering Facility: [facility] Address: [address] [place] [address] Performed By: #### 5 7021-8 ####[facility] LABCLIA [id number] [place] [address] [place] Neutrophils (Bld) [#/Vol] 0.13 10*3/uL Low 1.45-7.50 [facility] Comment on above: Order Comment: Speci men Type: BLOOD SPECIMENOrdering Facility: [facility] Address: [address] [place] [address] Performed By: #### 5 7021-8 ####[facility] LABCLIA [id number] [place] [address] [place] Neutrophils/100 WBC (Bld) 11.0 % Normal [facility] Comment on above: Order Comment: Speci men Type: BLOOD SPECIMENOrdering Facility: [facility] Address: [address] [place], [place] [address] Performed By: #### 5 7021-8 ####[facility] LABCLIA [id number] [place] [address] [place] Nucleated RBC (Bld) [#/Vol] 0.01 10*3/uL High <0.01 [facility] Comment on above: Order Comment: Speci men Type: BLOOD SPECIMENOrdering Facility: [facility] Address: [address] [place], [place] [address] Performed By: #### 5 7021-8 ####[facility] LABCLIA [id number] [place] [address] [place] Nucleated RBC/100 WBC (Bld) [Ratio] 1.0 /100 WBC Normal [facility] Comment on above: Order Comment: Speci men Type: BLOOD SPECIMENOrdering Facility: [facility] Address: [address] [place] [address] Performed By: #### 5 7021-8 ####[facility] LABIA [id number] [place] [address] [place] Ovalocytes LM Ql (Bld) Few Normal [facility] Comment on above: Order Comment: Speci men Type: BLOOD SPECIMENOrdering Facility: [facility] Address: [address] [place] [address] Performed By: #### 5 7021-8 ####[facility] [id number] [place] [address] [place] Platelet mean volume (Bld) [Entitic vol] Normal [facility] Comment on above: Order Comment: Speci men Type: BLOOD SPECIMENOrdering Facility: [facility] Address: [address] [place] [address] Result Comment: Unab le to Report. Performed By: #### 5 7021-8 ####[facility] [id number] [place] [address] [place] Platelets (Bld) [#/Vol] 11 10*3/uL Low 150-400 [facility] Comment on above: Order Comment: Speci men Type: BLOOD SPECIMENOrdering Facility: [facility] Address: [address] [place], [place] [address] Result Comment: No c lot detected.Results checked and verified. Performed By: #### 5 7021-8 ####[facility] [id number] [place] [address] [place] Platelets Estimate (Bld) [#/Vol] Decreased Normal [facility] Comment on above: Order Comment: Speci men Type: BLOOD SPECIMENOrdering Facility: [facility] Address: [address] [place] [address] Performed By: #### 5 7021-8 ####[facility] LABCLIA [id number] [place] [address] [place] RBC (Bld) [#/Vol] 2.42 10*6/uL Low 3.90-5.20 [facility] Comment on above: Order Comment: Speci men Type: BLOOD SPECIMENOrdering Facility: [facility] Address: [address] [place], [place] [id number] Performed By: #### 5 7021-8 ####[facility] LABCLIA [id number] [place] [address] [place] RBC FRAGMENTS Few Abnormal None Seen [facility] Comment on above: Order Comment: Speci men Type: BLOOD SPECIMENOrdering Facility: [facility] Address: [address] [place] [address] Performed By: #### 5 7021-8 ####[facility] LABCLIA [id number] [address] STATES [facility] RED CELL MORPH Reviewed: see result s of individual morphologies Normal [facility] Comment on above: Order Comment: Speci men Type: BLOOD SPECIMENOrdering Facility: [facility] Address: [address] [place], [place] [address] Performed By: #### 5 7021-8 ####[facility] LABCLIA [id number] [place] [address] [place] WBC (Bld) [#/Vol] 1.22 10*3/uL Low 3.70-11.00 [facility] Comment on above: Order Comment: Speci men Type: BLOOD SPECIMENOrdering Facility: [facility] Address: [address] [place] [address] Result Comment: No c lot detected. Performed By: #### 5 7021-8 ####[facility] LABCLIA [id number] [address] [place] Comprehensive metabolic 2000 panelon 06-04-2023 Albumin [Mass/Vol] 3.7 g/dL Low 3.9-4.9 [facility] Comment on above: Order Comment: Speci men Type: BLOOD SPECIMENOrdering Facility: [facility] Address: [address] [place] [address] Performed By: #### 2 4323-8, 87628-5, 7-1, 3084-1 ####[facility] LABCLIA [id number] [place] [address] [place] ALP [Catalytic activity/Vol] 55 U/L Normal 34-123 [facility] Comment on above: Order Comment: Speci men Type: BLOOD SPECIMENOrdering Facility: [facility] Address: [address] [place] [address] Performed By: #### 2 4323-8, 99548-9, 2776-, 3084-1 ####[facility] LABCLIA [id number] [address] [place] ALT [Catalytic activity/Vol] 17 U/L Normal 7-38 [facility] Comment on above: Order Comment: Speci men Type: BLOOD SPECIMENOrdering Facility: [facility] Address: [address] [place] [address] Performed By: #### 2 4323-8, 83938-7, 2776-1, 3084-1 ####[facility] LABCLIA [id number] [address] [place] Anion gap [Moles/Vol] 11 mmol/L Normal 9-18 [facility] Comment on above: Order Comment: Speci men Type: BLOOD SPECIMENOrdering Facility: [facility] Address: [address] [place] [address] Performed By: #### 2 4323-8, 99246-0, 7-1, 3084-1 ####[facility] LABCLIA [id number] [address] [place] AST [Catalytic activity/Vol] 14 U/L Normal 13-35 [facility] Comment on above: Order Comment: Speci men Type: BLOOD SPECIMENOrdering Facility: [facility] Address: [address] [place] [address] Performed By: #### 2 4323-8, 45265-8, 2777-1, 3084-1 ####[facility] LABCLIA [id number] [place] [address] [place] Bilirubin [Mass/Vol] 0.5 mg/dL Normal 0.2-1.3 [facility] Comment on above: Order Comment: Speci men Type: BLOOD SPECIMENOrdering Facility: [facility] Address: [address] [place] [address] Performed By: #### 2 4323-8, 38741-4, 2776-, 308-1 ####[facility] LABIA [id number] [address] [place] Calcium [Mass/Vol] 9.0 mg/dL Normal 8.5-10.2 [facility] Comment on above: Order Comment: Speci men Type: BLOOD SPECIMENOrdering Facility: [facility] Address: [address] [place] [address] Performed By: #### 2 4323-8, 44701-2, 277-1, 3084-1 ####[facility] LABIA [id number] [place] [address] [place] Chloride [Moles/Vol] 107 mmol/L High 97-105 [facility] Comment on above: Order Comment: Speci men Type: BLOOD SPECIMENOrdering Facility: [facility] Address: [address] [place] [address] Performed By: #### 2 4323-8, 13918-8, 2777-1, 3084-1 ####[facility] LABCLIA [id number] [place] [address] [place] CO2 [Moles/Vol] 23 mmol/L Normal 22-30 [facility] Comment on above: Order Comment: Specmaria eugenia men Type: BLOOD SPECIMENOrdering Facility: [facility] Address: [address] [place] [address] Performed By: #### 2 4323-8, 07873-1, 2776-, 3083-1 ####[facility] LABCLIA [id number] [place] [address] [place] Creatinine [Mass/Vol] 0.99 mg/dL High 0.58-0.96 [facility] Comment on above: Order Comment: Elvia men Type: BLOOD SPECIMENOrdering Facility: [facility] Address: [address] [place] [address] Performed By: #### 2 4323-8, 99845-0, 2776-09, 3083- ####[facility] LABIA [id number] [place] [address] [place] Creatinine and Glomerular filtration rate.predicted panel (S/P/Bld) 62 mL/min/1.73m??? Normal >=60 [facility] Comment on above: Order Comment: Elvia escobar Type: BLOOD SPECIMENOrdering Facility: [facility] Address: [address] [place] [address] Result Comment: Berenice mated Glomerular Filtration Rate [...] actual GFR. Performed By: #### 2 4323-8, 51721-5, 2776-, 308-1 ####[facility] LABCLIA [id number] [place] [id number] [place] Glucose [Mass/Vol] 106 mg/dL High 74-99 [facility] Comment on above: Order Comment: Rochellei men Type: BLOOD SPECIMENOrdering Facility: [facility] Address: [address] [place], [place] [address] Result Comment: The [place] Diabetes Association (ADA) provides guidance for cutoff [...] Standards of Medical Care in Diabetes 2016, [place] [employer]. Diabetes Care. 2016.39(Suppl 1). Performed By: #### 2 4323-8, 10054-7, 277-, 3083-1 ####[facility] LABCLIA [id number] [place] [address] [place] Potassium [Moles/Vol] 3.3 mmol/L Low 3.7-5.1 [facility] Comment on above: Order Comment: Elvia escobar Type: BLOOD SPECIMENOrdering Facility: [facility] Address: [address] [place], [place] [address] Performed By: #### 2 4323-8, 39136-4, 27703-03, 3083-1 ####[facility] LABCLIA [id number] [place] [address] [place] Protein [Mass/Vol] 5.7 g/dL Low 6.3-8.0 [facility] Comment on above: Order Comment: Elvia escobar Type: BLOOD SPECIMENOrdering Facility: [facility] Address: [address] [place], [place] [address] Performed By: #### 2 4323-8, 10659-8, 277-, 3083-1 ####[facility] LABCLIA [id number] [place] [address] [place] Sodium [Moles/Vol] 141 mmol/L Normal 136-144 [facility] Comment on above: Order Comment: Speci men Type: BLOOD SPECIMENOrdering Facility: [facility] Address: [address] [place] [address] Performed By: #### 2 4323-8, 11412-1, 2776-1, 3084-1 ####[facility] LABCLIA [id number] [place] [address] [place] Urea nitrogen [Mass/Vol] 11 mg/dL Normal 7-21 [facility] Comment on above: Order Comment: Speci men Type: BLOOD SPECIMENOrdering Facility: [facility] Address: [address] [place] [address] Performed By: #### 2 4323-8, 70869-1, 2776-, 3084-1 ####[facility] LABCLIA [id number] [place] [address] [place] ECG COMPLETEon 06-04-2023 ECG COMPLETE Normal [facility] Magnesium SerPl-mCncon 06-04 Magnesium [Mass/Vol] 2.0 mg/dL Normal 1.7-2.3 [facility] Comment on above: Order Comment: Speci men Type: BLOOD SPECIMENOrdering Facility: [facility] Address: [address] [place], [place] [address] Performed By: #### 2 4323-8, 11932-1, 277-, 3084-1 ####[facility] LABCLIA [id number] [place] [address] [place] Phosphate SerPl-mCncon 06-04 Phosphate [Mass/Vol] 2.7 mg/dL Normal 2.7-4.8 [facility] Comment on above: Order Comment: Speci men Type: BLOOD SPECIMENOrdering Facility: [facility] Address: [address] [place] [address] Performed By: #### 2 4323-8, 67231-3, 2777-1, 3084-1 ####[facility] LABCLIA [id number] [address] [address] [place] SOCIAL WORKon 06-04-2023 SOCIAL WORK Normal [facility] Urate SerPl-mCncon 3 Urate [Mass/Vol] 3.1 mg/dL Normal 2.5-6.6 [facility] Comment on above: Order Comment: Speci men Type: BLOOD SPECIMENOrdering Facility: [facility] Address: [address] [place] [address] Performed By: #### 2 4323-8, 70541-7, 2777-1, 3084-1 ####[facility] LABCLIA [id number] [address] BLOOD BANK PLACEHOLDER, CHANDLER SFUSION REACTION PATHOLOGY REPORTon 06-03-2023 BLOOD BANK REPORT, TRANSFUSION REACTION PATHOLOGY REPORT See Pathology Report Normal [facility] Comment on above: Order Comment: Speci men Type: BLOOD SPECIMENOrdering Facility: [facility] Address: [address] [place] [address] Performed By: #### T SCR, TRXNU, [id number] ####[facility] BLOOD BANKIA [id number] [address] [place]#### [id number] ####[facility] LABCLIA [id number] [place] [id number] [facility] [place] BLOOD BANK REPORT, TRANSFUSI ON REACTION PATHOLOGY REPORTon 06-03-2023 PATHOLOGY INTERPRETATION Normal [facility] Comment on above: Order Comment: Speci men Type: BLOOD SPECIMENOrdering Facility: [facility] Address: [address] [place], [place] [address] Result Comment: Date of symptom onset:June 05ertinent medical history:67-year-old female with past medical history of breast cancer status post lumpectomy and adjuvant radiation therapy and recent diagnosis of acute myeloid leukemia. Patient labs demonstrate pancytopenia and need for platelet transfusion.Transfusion Information:Date Component DIN Start time (h) End time (h) Amount transfused (mL)Monday, June 05, 2023 Platelet [id number] 0328 0440 300 mLSymptoms, signs, and onset:Itching [...] Medicine Staff Physician. Performed By: #### T [facility]eMe[facility], [id number] ####[facility] BLOOD BANKCLIA [id number] [place] [address] [place]#### [id number] ####[facility] LABCLIA [id number] [place] [address] [place] C diff Tox gens Stl Ql KIAH+p robejose 06-03-2023 C. difficile toxin genes KIAH+probe Ql (Stl) Negative Normal Negative for C. difficile toxin by PCR [facility] Comment on above: Order Comment: Speci men Type: STOOL SPECIMENOrdering Facility: [facility] Address: [address] [place] [address] Performed By: #### 5 4067-4 ####[facility] LABCLIA [id number] [place] [address] [place] CBC W Auto Differential pane l (Bld)on 06-03-2023 Anisocytosis Ql (Bld) Present Normal [facility] Comment on above: Order Comment: Speci men Type: BLOOD SPECIMENOrdering Facility: [facility] Address: [address] [place] [address] Performed By: #### 5 7021-8 ####[facility] LABIA [id number] [place] [address] [place] Basophils (Bld) [#/Vol] 0.00 10*3/uL Normal <0.11 [facility] Comment on above: Order Comment: Speci men Type: BLOOD SPECIMENOrdering Facility: [facility] Address: [address] [place] [address] Performed By: #### 5 7021-8 ####[facility] LABIA [id number] [place] [address] [place] Basophils/100 WBC (Bld) 0.0 % Normal [facility] Comment on above: Order Comment: Speci men Type: BLOOD SPECIMENOrdering Facility: [facility] Address: [address] [place], [place] [address] Performed By: #### 5 7021-8 ####[facility] LABIA [id number] [place] [address] [place] BLAST% 3.0 % High <=0.0 [facility] Comment on above: Order Comment: Speci men Type: BLOOD SPECIMENOrdering Facility: [facility] Address: [address] [place], [place] [address] Performed By: #### 5 7021-8 ####[facility] LABIA [id number] [place] [address] [place] Differential cell count method Nom (Bld) Manual Normal [facility] Comment on above: Order Comment: Speci men Type: BLOOD SPECIMENOrdering Facility: [facility] Address: [address] Performed By: #### 5 7021-8 ####[facility] LABCLIA [id number] [place] [address] [place] Eosinophils (Bld) [#/Vol] 0.02 10*3/uL Normal <0.46 [facility] Comment on above: Order Comment: Speci men Type: BLOOD SPECIMENOrdering Facility: [facility] Address: [address] Performed By: #### 5 7021-8 ####[facility] LABCLIA [id number] [address] [place] Eosinophils/100 WBC (Bld) 2.0 % Normal [facility] Comment on above: Order Comment: Speci men Type: BLOOD SPECIMENOrdering Facility: [facility] Address: [address] Performed By: #### 5 7021-8 ####[facility] LABCLIA [id number] [place] [address] [place] Erythrocyte distribution width (RBC) [Ratio] 19.9 % High 11.5-15.0 [facility] Comment on above: Order Comment: Speci men Type: BLOOD SPECIMENOrdering Facility: [facility] Address: [address] Performed By: #### 5 7021-8 ####[facility] LABCLIA [id number] [place] [address] [place] Hematocrit (Bld) [Volume fraction] 19.0 % Low 36.0-46.0 [facility] Comment on above: Order Comment: Speci men Type: BLOOD SPECIMENOrdering Facility: [facility] Address: [address] Performed By: #### 5 7021-8 ####[facility] LABIA [id number] [place] [address] [place] Hemoglobin (Bld) [Mass/Vol] 6.5 g/dL Low 11.5-15.5 [facility] Comment on above: Order Comment: Speci men Type: BLOOD SPECIMENOrdering Facility: [facility] Address: [address] [place] [address] Performed By: #### 5 7021-8 ####[facility] LABIA [id number] [place] [address] [place] Lymphocytes (Bld) [#/Vol] 0.90 10*3/uL Low 1.00-4.00 [facility] Comment on above: Order Comment: Speci men Type: BLOOD SPECIMENOrdering Facility: [facility] Address: [address] [place] [address] Performed By: #### 5 7021-8 ####[facility] [id number] [place] [address] [place] Lymphocytes/100 WBC (Bld) 76.0 % Normal [facility] Comment on above: Order Comment: Speci men Type: BLOOD SPECIMENOrdering Facility: [facility] Address: [address] [place], [place] [address] Performed By: #### 5 7021-8 ####[facility] LABIA [id number] [place] [address] [place] MCH (RBC) [Entitic mass] 33.2 pg Normal 26.0-34.0 [facility] Comment on above: Order Comment: Speci men Type: BLOOD SPECIMENOrdering Facility: [facility] Address: [address] [place], [place] [address] Performed By: #### 5 7021-8 ####[facility] LABIA [id number] [place] [address] [place] MCHC (RBC) [Mass/Vol] 34.2 g/dL Normal 30.5-36.0 [facility] Comment on above: Order Comment: Speci men Type: BLOOD SPECIMENOrdering Facility: [facility] Address: [address] [place], [place] [address] Performed By: #### 5 7021-8 ####[facility] LABIA [id number] [address] [place] MCV (RBC) [Entitic vol] 96.9 fL Normal 80.0-100.0 [facility] Comment on above: Order Comment: Speci men Type: BLOOD SPECIMENOrdering Facility: [facility] Address: [address] [place], [place] [address] Performed By: #### 5 7021-8 ####[facility] LABIA [id number] [place] [address] [place] Monocytes (Bld) [#/Vol] 0.02 10*3/uL Normal <0.87 [facility] Comment on above: Order Comment: Speci men Type: BLOOD SPECIMENOrdering Facility: [facility] Address: [address] [place], [place] [address] Performed By: #### 5 7021-8 ####[facility] LABIA [id number] [address] [place] Monocytes/100 WBC (Bld) 2.0 % Normal [facility] Comment on above: Order Comment: Speci men Type: BLOOD SPECIMENOrdering Facility: [facility] Address: [address] [place], [place] [address] Performed By: #### 5 7021-8 ####[facility] LABIA [id number] [place] [address] [place] Neutrophils (Bld) [#/Vol] 0.20 10*3/uL Low 1.45-7.50 [facility] Comment on above: Order Comment: Speci men Type: BLOOD SPECIMENOrdering Facility: [facility] Address: [address] Performed By: #### 5 7021-8 ####[facility] LABCLIA [id number] [place] [address] [place] Neutrophils/100 WBC (Bld) 17.0 % Normal [facility] Comment on above: Order Comment: Speci men Type: BLOOD SPECIMENOrdering Facility: [facility] Address: [address] [place], [place] [address] Performed By: #### 5 7021-8 ####[facility] LABCLIA [id number] [place] [address] [place] Nucleated RBC (Bld) [#/Vol] 10*3/uL Normal <0.01 [facility] Comment on above: Order Comment: Speci men Type: BLOOD SPECIMENOrdering Facility: [facility] Address: [address] [place], [place] [address] Performed By: #### 5 7021-8 ####[facility] LABCLIA [id number] [place] [address] [place] Nucleated RBC/100 WBC (Bld) [Ratio] 0.0 /100 WBC Normal [facility] Comment on above: Order Comment: Speci men Type: BLOOD SPECIMENOrdering Facility: [facility] Address: [address] [place] [address] Performed By: #### 5 7021-8 ####[facility] LABCLIA [id number] [place] [address] [place] Ovalocytes LM Ql (Bld) Few Normal [facility] Comment on above: Order Comment: Speci men Type: BLOOD SPECIMENOrdering Facility: [facility] Address: [address] [place] [address] Performed By: #### 5 7021-8 ####[facility] LABCLIA [id number] [place] [address] [place] Platelet mean volume (Bld) [Entitic vol] Normal [facility] Comment on above: Order Comment: Speci men Type: BLOOD SPECIMENOrdering Facility: [facility] Address: [address] [place], [place] [address] Result Comment: Unab le to Report. Performed By: #### 5 7021-8 ####[facility] LABCLIA [id number] [place] [address] [place] Platelets (Bld) [#/Vol] 14 10*3/uL Low 150-400 [facility] Comment on above: Order Comment: Speci men Type: BLOOD SPECIMENOrdering Facility: [facility] Address: [address] [place], [place] [address] Result Comment: Resu lts checked and verified.No clot detected. Performed By: #### 5 7021-8 ####[facility] LABCLIA [id number] [place] [address] [place] Platelets Estimate (Bld) [#/Vol] Decreased Normal [facility] Comment on above: Order Comment: Speci men Type: BLOOD SPECIMENOrdering Facility: [facility] Address: [address] [place], [place] [address] Performed By: #### 5 7021-8 ####[facility] LABCLIA [id number] [place] [address] [place] RBC (Bld) [#/Vol] 1.96 10*6/uL Low 3.90-5.20 [facility] Comment on above: Order Comment: Speci men Type: BLOOD SPECIMENOrdering Facility: [facility] Address: [address] [place], [place] [address] Performed By: #### 5 7021-8 ####[facility] LABCLIA [id number] [place] [address] [place] RBC FRAGMENTS Few Abnormal None Seen [facility] Comment on above: Order Comment: Speci men Type: BLOOD SPECIMENOrdering Facility: [facility] Address: [address] [place] [address] Performed By: #### 5 7021-8 ####[facility] LABIA [id number] [place] [address] [place] RED CELL MORPH Reviewed: see result s of individual morphologies Normal [facility] Comment on above: Order Comment: Speci men Type: BLOOD SPECIMENOrdering Facility: [facility] Address: [address] [place] [address] Performed By: #### 5 7021-8 ####[facility] LABIA [id number] [place] [address] [place] WBC (Bld) [#/Vol] 1.18 10*3/uL Low 3.70-11.00 [facility] Comment on above: Order Comment: Speci men Type: BLOOD SPECIMENOrdering Facility: [facility] Address: [address] [place] [address] Result Comment: No c lot detected. Performed By: #### 5 7021-8 ####[facility] LABIA [id number] [place] [address] [place] Comprehensive metabolic 2000 panelon 06-03-2023 Albumin [Mass/Vol] 3.3 g/dL Low 3.9-4.9 [facility] Comment on above: Order Comment: Speci men Type: BLOOD SPECIMENOrdering Facility: [facility] Address: [address] [place], [place] [address] Performed By: #### 2 4323-8, 84022-3, 2777-1, 3084-1 ####[facility] LABIA [id number] [place] [address] [place] ALP [Catalytic activity/Vol] 50 U/L Normal 34-123 [facility] Comment on above: Order Comment: Speci men Type: BLOOD SPECIMENOrdering Facility: [facility] Address: [address] [place] [address] Performed By: #### 2 4323-8, 18156-1, 2777-1, 3084-1 ####[facility] LABCLIA [id number] [place] [address] [place] ALT [Catalytic activity/Vol] 12 U/L Normal 7-38 [facility] Comment on above: Order Comment: Speci men Type: BLOOD SPECIMENOrdering Facility: [facility] Address: [address] [place], [place] [address] Performed By: #### 2 4323-8, 31455-7, 7-1, 3084-1 ####[facility] LABIA [id number] [place] [address] [place] Anion gap [Moles/Vol] 12 mmol/L Normal 9-18 [facility] Comment on above: Order Comment: Speci men Type: BLOOD SPECIMENOrdering Facility: [facility] Address: [address] [place], [place] [address] Performed By: #### 2 4323-8, 95502-2, 2777-1, 3084-1 ####[facility] LABIA [id number] [place] [address] [place] AST [Catalytic activity/Vol] 12 U/L Low 13-35 [facility] Comment on above: Order Comment: Speci men Type: BLOOD SPECIMENOrdering Facility: [facility] Address: [address] [place], [place] [address] Performed By: #### 2 4323-8, 32404-1, 2776-1, 3084-1 ####[facility] LABIA [id number] [place] [id number] [place] Bilirubin [Mass/Vol] 0.4 mg/dL Normal 0.2-1.3 [facility] Comment on above: Order Comment: Speci men Type: BLOOD SPECIMENOrdering Facility: [facility] Address: [address] [place], [place] [id number] Performed By: #### 2 4323-8, 49528-7, 7-1, 3084-1 ####[facility]IA [id number] [place] [address] [place] Calcium [Mass/Vol] 9.0 mg/dL Normal 8.5-10.2 [facility] Comment on above: Order Comment: Speci men Type: BLOOD SPECIMENOrdering Facility: [facility] Address: [address] [place] [address] Performed By: #### 2 4323-8, 92183-8, 2776-1, 3084-1 ####[facility]IA [id number] [place] [address] [place] Chloride [Moles/Vol] 108 mmol/L High 97-105 [facility] Comment on above: Order Comment: Speci men Type: BLOOD SPECIMENOrdering Facility: [facility] Address: [address] [place] [address] Performed By: #### 2 4323-8, 12861-5, 277-1, 3084-1 ####[facility] [id number] [place] [address] [place] CO2 [Moles/Vol] 21 mmol/L Low 22-30 [facility] Comment on above: Order Comment: Speci men Type: BLOOD SPECIMENOrdering Facility: [facility] Address: [address] [place], [place] [address] Performed By: #### 2 4323-8, 18642-5, 2776-1, 3084-1 ####[facility] LABIA [id number] [place] [address] [place] Creatinine [Mass/Vol] 0.93 mg/dL Normal 0.58-0.96 [facility] Comment on above: Order Comment: Speci men Type: BLOOD SPECIMENOrdering Facility: [facility] Address: [address] [place], [place] [address] Performed By: #### 2 4323-8, 58583-4, 2777-1, 3084-1 ####[facility] LABIA [id number] [place] [address] [place] Creatinine and Glomerular filtration rate.predicted panel (S/P/Bld) 67 mL/min/1.73m??? Normal >=60 [facility] Comment on above: Order Comment: Elvia escobar Type: BLOOD SPECIMENOrdering Facility: [facility] Address: [address] [address] Result Comment: Berenice mated Glomerular Filtration Rate [...] actual GFR. Performed By: #### 2 4323-8, 57227-3, 2777-, 3084- ####[facility] LABCLIA [id number] [place] [address] [place] Glucose [Mass/Vol] 111 mg/dL High 74-99 [facility] Comment on above: Order Comment: Elvia escobar Type: BLOOD SPECIMENOrdering Facility: [facility] Address: [address] [place] [address] Result Comment: The [place] Diabetes Association (ADA) provides guidance for cutoff [...] Standards of Medical Care in Diabetes 2016, [place] [employer]. Diabetes Care. 2016.39(Suppl 1). Performed By: #### 2 4323-8, 44363-9, 2777-1, 3084-1 ####[facility] LABIA [id number] [place] [address] [place] Potassium [Moles/Vol] 3.3 mmol/L Low 3.7-5.1 [facility] Comment on above: Order Comment: Speci men Type: BLOOD SPECIMENOrdering Facility: [facility] Address: [address] [place] [address] Performed By: #### 2 4323-8, 48137-6, 2777-1, 3084-1 ####[facility] LABIA [id number] [place] [address] [place] Protein [Mass/Vol] 5.3 g/dL Low 6.3-8.0 [facility] Comment on above: Order Comment: Speci men Type: BLOOD SPECIMENOrdering Facility: [facility] Address: [address] [place] [address] Performed By: #### 2 4323-8, 09239-3, 277-, 3084-1 ####[facility] LABIA [id number] [place] [address] [place] Sodium [Moles/Vol] 141 mmol/L Normal 136-144 [facility] Comment on above: Order Comment: Speci men Type: BLOOD SPECIMENOrdering Facility: [facility] Address: [address] [place] [address] Performed By: #### 2 4323-8, 38636-8, 277-1, 3084-1 ####[facility] LABIA [id number] [place] [address] [place] Urea nitrogen [Mass/Vol] 9 mg/dL Normal 7-21 [facility] Comment on above: Order Comment: Speci men Type: BLOOD SPECIMENOrdering Facility: [facility] Address: [address] [place], [place] [address] Performed By: #### 2 4323-8, 08764-5, 2776-1, 3084-1 ####[facility] LABCLIA [id number] [place] [address] [place] Magnesium SerPl-mCncon 06-03 Magnesium [Mass/Vol] 1.9 mg/dL Normal 1.7-2.3 [facility] Comment on above: Order Comment: Speci men Type: BLOOD SPECIMENOrdering Facility: [facility] Address: [address] [place] [address] Performed By: #### 2 4323-8, 15993-3, 2776-, 3084-1 ####[facility] LABCLIA [id number] [address] STATES OF [facility] Phosphate SerPl-mCncon 06-03 Phosphate [Mass/Vol] 3.0 mg/dL Normal 2.7-4.8 [facility] Comment on above: Order Comment: Speci men Type: BLOOD SPECIMENOrdering Facility: [facility] Address: [address] [place] [address] Performed By: #### 2 4323-8, 33690-7, 2776-, 3084-1 ####[facility] LABCLIA [id number] [place] [address] [place] TYPE + SCREENon 06-03-2023 ABO O Normal [facility] Comment on above: Order Comment: Speci men Type: BLOOD SPECIMENOrdering Facility: [facility] Address: [address] [place], [place] [address] Performed By: #### T SCR, TRXNU, [id number] ####[facility] BLOOD BANKCLIA [id number] [place] [address] [place]#### [id number] ####[facility] LABCLIA [id number] [place] [address] [place] HISTORICAL AB SCR STATUS Negative Normal [facility] Comment on above: Order Comment: Speci men Type: BLOOD SPECIMENOrdering Facility: [facility] Address: [address] [place] [address] Performed By: #### T SCR, TRXNU, [id number] ####[facility] BLOOD BANKCLIA [id number] [place] [address] [place]#### [id number] ####[facility] LABCLIA [id number] [place] [address] [place] Rh Nom (Bld) Positive Normal [facility] Comment on above: Order Comment: Speci men Type: BLOOD SPECIMENOrdering Facility: [facility] Address: [address] [place] [address] Performed By: #### T SCR, TRXNU, [id number] ####[facility] BLOOD BANKCLIA [id number] [address] [place]#### [id number] ####[facility] LABCLIA [id number] [place] [address] [place] TYPE AND SCREEN EXPIRATION 06/06/2023 23:59 Normal [facility] Comment on above: Order Comment: Speci men Type: BLOOD SPECIMENOrdering Facility: [facility] Address: [address] [place], [place] [address] Performed By: #### T SCR, TRXNU, [id number] ####[facility] BLOOD BANKCLIA [id number] [place] [address] [place]#### [id number] ####[facility] LABCLIA [id number] [place] [address] [place] URTICARIAL REACTIONon 2022 OK TO TRANSFUSE Yes Normal [facility] Comment on above: Order Comment: Speci men Type: BLOOD SPECIMENOrdering Facility: [facility] Address: [address] [address] Performed By: #### T SCR, TRXNU, [id number] ####[facility] BLOOD BANKCLIA [id number] [address] OF [facility]#### [id number] ####[facility] LABCLIA [id number] [address] OF [place] Urate SerPl-mCncon 3 Urate [Mass/Vol] 3.4 mg/dL Normal 2.5-6.6 [facility] Comment on above: Order Comment: Speci men Type: BLOOD SPECIMENOrdering Facility: [facility] Address: [address] [place] [address] Performed By: #### 2 4323-8, 61179-9, 2777-1, 3084-1 ####[facility] LABCLIA [id number] [place] [address] [place] BMT REC INIT W/Uon 3 ALLOGEN RESULTS TO FOLLOW See Allogen report to follow Normal [facility] Comment on above: Order Comment: Speci men Type: BLOOD SPECIMENOrdering Facility: [facility] Address: [address] [place] [address] Performed By: #### B MTRIW ####[facility] [id number] [place] [address] [place] CBC W Auto Differential pane l (Bld)on 06-02-2023 Anisocytosis Ql (Bld) Present Normal [facility] Comment on above: Order Comment: Speci men Type: BLOOD SPECIMENOrdering Facility: [facility] Address: [address] [place] [address] Performed By: #### 5 7021-8 ####[facility] LABCLIA [id number] [address] [place] Basophils (Bld) [#/Vol] 0.00 10*3/uL Normal <0.11 [facility] Comment on above: Order Comment: Speci men Type: BLOOD SPECIMENOrdering Facility: [facility] Address: [address] [address] Performed By: #### 5 7021-8 ####[facility] LABCLIA [id number] [address] [place] Basophils/100 WBC (Bld) 0.0 % Normal [facility] Comment on above: Order Comment: Speci men Type: BLOOD SPECIMENOrdering Facility: [facility] Address: [address] [place] [address] Performed By: #### 5 7021-8 ####[facility] LABCLIA [id number] [place] [address] [place] BLAST% 2.0 % High <=0.0 [facility] Comment on above: Order Comment: Speci men Type: BLOOD SPECIMENOrdering Facility: [facility] Address: [address] Performed By: #### 5 7021-8 ####[facility] LABCLIA [id number] [place] [address] [place] Differential cell count method Nom (Bld) Manual Normal [facility] Comment on above: Order Comment: Speci men Type: BLOOD SPECIMENOrdering Facility: [facility] Address: [address] Performed By: #### 5 7021-8 ####[facility] LABCLIA [id number] [place] [address] [place] Eosinophils (Bld) [#/Vol] 0.02 10*3/uL Normal <0.46 [facility] Comment on above: Order Comment: Speci men Type: BLOOD SPECIMENOrdering Facility: [facility] Address: [address] Performed By: #### 5 7021-8 ####[facility] LABCLIA [id number] [place] [address] [place] Eosinophils/100 WBC (Bld) 1.0 % Normal [facility] Comment on above: Order Comment: Speci men Type: BLOOD SPECIMENOrdering Facility: [facility] Address: [address] [place] [address] Performed By: #### 5 7021-8 ####[facility] LABCLIA [id number] [place] [address] [place] Erythrocyte distribution width (RBC) [Ratio] 20.5 % High 11.5-15.0 [facility] Comment on above: Order Comment: Speci men Type: BLOOD SPECIMENOrdering Facility: [facility] Address: [address] [place] [address] Performed By: #### 5 7021-8 ####[facility] LABIA [id number] [place] [address] [place] Hematocrit (Bld) [Volume fraction] 20.6 % Low 36.0-46.0 [facility] Comment on above: Order Comment: Speci men Type: BLOOD SPECIMENOrdering Facility: [facility] Address: [address] [place], [place] [address] Performed By: #### 5 7021-8 ####[facility] LABIA [id number] [place] [address] [place] Hemoglobin (Bld) [Mass/Vol] 7.0 g/dL Low 11.5-15.5 [facility] Comment on above: Order Comment: Speci men Type: BLOOD SPECIMENOrdering Facility: [facility] Address: [address] [place], [place] [address] Performed By: #### 5 7021-8 ####[facility] LABCLIA [id number] [place] [address] [place] Lymphocytes (Bld) [#/Vol] 1.46 10*3/uL Normal 1.00-4.00 [facility] Comment on above: Order Comment: Speci men Type: BLOOD SPECIMENOrdering Facility: [facility] Address: [address] [address] Performed By: #### 5 7021-8 ####[facility] LABIA [id number] [address] STATES OF [facility] Lymphocytes/100 WBC (Bld) 87.0 % Normal [facility] Comment on above: Order Comment: Speci men Type: BLOOD SPECIMENOrdering Facility: [facility] Address: [address] [address] Performed By: #### 5 7021-8 ####[facility] LAB[facility] [id number] [address] [place] MCH (RBC) [Entitic mass] 33.0 pg Normal 26.0-34.0 [facility] Comment on above: Order Comment: Speci men Type: BLOOD SPECIMENOrdering Facility: [facility] Address: [address] [place], [place] [address] Performed By: #### 5 7021-8 ####[facility] LABIA [id number] [address] [place] MCHC (RBC) [Mass/Vol] 34.0 g/dL Normal 30.5-36.0 [facility] Comment on above: Order Comment: Speci men Type: BLOOD SPECIMENOrdering Facility: [facility] Address: [address] Performed By: #### 5 7021-8 ####[facility] LABIA [id number] [address] [place] MCV (RBC) [Entitic vol] 97.2 fL Normal 80.0-100.0 [facility] Comment on above: Order Comment: Speci men Type: BLOOD SPECIMENOrdering Facility: [facility] Address: [address] [place] [address] Performed By: #### 5 7021-8 ####[facility] LABCLIA [id number] [place] [address] [place] Monocytes (Bld) [#/Vol] 0.00 10*3/uL Normal <0.87 [facility] Comment on above: Order Comment: Speci men Type: BLOOD SPECIMENOrdering Facility: [facility] Address: [address] Performed By: #### 5 7021-8 ####[facility] LABCLIA [id number] [address] OF [facility] Monocytes/100 WBC (Bld) 0.0 % Normal [facility] Comment on above: Order Comment: Speci men Type: BLOOD SPECIMENOrdering Facility: [facility] Address: [address] Performed By: #### 5 7021-8 ####[facility] LABCLIA [id number] [place] [address] [place] Neutrophils (Bld) [#/Vol] 0.17 10*3/uL Low 1.45-7.50 [facility] Comment on above: Order Comment: Speci men Type: BLOOD SPECIMENOrdering Facility: [facility] Address: [address] Performed By: #### 5 7021-8 ####[facility] LABCLIA [id number] [address] [place] Neutrophils/100 WBC (Bld) 10.0 % Normal [facility] Comment on above: Order Comment: Speci men Type: BLOOD SPECIMENOrdering Facility: [facility] Address: [address] Performed By: #### 5 7021-8 ####[facility] LABCLIA [id number] [place] [address] [place] Nucleated RBC (Bld) [#/Vol] 10*3/uL Normal <0.01 [facility] Comment on above: Order Comment: Speci men Type: BLOOD SPECIMENOrdering Facility: [facility] Address: [address] [place] [address] Performed By: #### 5 7021-8 ####[facility] LABCLIA [id number] [place] [address] [place] Nucleated RBC/100 WBC (Bld) [Ratio] 0.0 /100 WBC Normal [facility] Comment on above: Order Comment: Speci men Type: BLOOD SPECIMENOrdering Facility: [facility] Address: [address] [place], [place] [address] Performed By: #### 5 7021-8 ####[facility] LABCLIA [id number] [place] [address] [place] Ovalocytes LM Ql (Bld) Few Normal [facility] Comment on above: Order Comment: Speci men Type: BLOOD SPECIMENOrdering Facility: [facility] Address: [address] [place], [place] [address] Performed By: #### 5 7021-8 ####[facility] LABCLIA [id number] [address] [place] Platelet mean volume (Bld) [Entitic vol] Normal [facility] Comment on above: Order Comment: Speci men Type: BLOOD SPECIMENOrdering Facility: [facility] Address: [address] [place] [address] Result Comment: Unab le to Report. Performed By: #### 5 7021-8 ####[facility] LABCLIA [id number] [place] [address] [place] Platelets (Bld) [#/Vol] 26 10*3/uL Low 150-400 [facility] Comment on above: Order Comment: Speci men Type: BLOOD SPECIMENOrdering Facility: [facility] Address: [address] Result Comment: Resu lts checked and verified.No clot detected. Performed By: #### 5 7021-8 ####[facility] LABCLIA [id number] [place] [address] [place] Platelets Estimate (Bld) [#/Vol] Decreased Normal [facility] Comment on above: Order Comment: Speci men Type: BLOOD SPECIMENOrdering Facility: [facility] Address: [address] [place], [place] [address] Performed By: #### 5 7021-8 ####[facility] LABCLIA [id number] [place] [address] [place] Polychromasia LM Ql (Bld) Slight Normal [facility] Comment on above: Order Comment: Speci men Type: BLOOD SPECIMENOrdering Facility: [facility] Address: [address] [place], [place] [address] Performed By: #### 5 7021-8 ####[facility] LABCLIA [id number] [place] [address] [place] RBC (Bld) [#/Vol] 2.12 10*6/uL Low 3.90-5.20 [facility] Comment on above: Order Comment: Speci men Type: BLOOD SPECIMENOrdering Facility: [facility] Address: [address] [place], [place] [address] Performed By: #### 5 7021-8 ####[facility] LABCLIA [id number] [place] [address] [place] RBC FRAGMENTS Few Abnormal None Seen [facility] Comment on above: Order Comment: Speci men Type: BLOOD SPECIMENOrdering Facility: [facility] Address: [address] [place], [place] [address] Performed By: #### 5 7021-8 ####[facility] LABCLIA [id number] [address] [place] RED CELL MORPH Reviewed: see result s of individual morphologies Normal [facility] Comment on above: Order Comment: Speci men Type: BLOOD SPECIMENOrdering Facility: [facility] Address: [address] [place] [address] Performed By: #### 5 7021-8 ####[facility] LABIA [id number] [place] [address] [place] WBC (Bld) [#/Vol] 1.68 10*3/uL Low 3.70-11.00 [facility] Comment on above: Order Comment: Speci men Type: BLOOD SPECIMENOrdering Facility: [facility] Address: [address] [place] [address] Result Comment: No c lot detected. Performed By: #### 5 7021-8 ####[facility] LABIA [id number] [address] CMV IgG Qnon 06-02-2023 CMV IGG QUAL Negative Normal Negative [facility] Comment on above: Order Comment: Speci men Type: BLOOD SPECIMENOrdering Facility: [facility] Address: [address] [place] [address] Result Comment: No s erological evidence of past exposure to Cytomegalovirus. Cannot exclude recent infection if the specimen collected within 4-6 weeks after infection. Performed By: #### 7 852-7 ####[facility] LABIA [id number] [address] OF [facility] CMV IgG SerPl-aCncon 023 CMV IgG Qn <0.20 Normal [facility] Comment on above: Order Comment: Speci men Type: BLOOD SPECIMENOrdering Facility: [facility] Address: [address] [place] [address] Result Comment: The magnitude of the measured result is not indicative of the amount of antibody present.U/mL values are interpreted as follows:Negative <0.6Equivocal 0.6 to <0.70Positive >=0.70 Performed By: #### 7 852-7 ####[facility] LABIA [id number] [place] [id number] [facility] Comprehensive metabolic 2000 panelon 06-02-2023 Albumin [Mass/Vol] 3.4 g/dL Low 3.9-4.9 [facility] Comment on above: Order Comment: Speci men Type: BLOOD SPECIMENOrdering Facility: [facility] Address: [address] [address] Performed By: #### 2 4323-8, 19260-3, 2777-1, 3084-1 ####[facility] LABIA [id number] [address] [place] ALP [Catalytic activity/Vol] 58 U/L Normal 34-123 [facility] Comment on above: Order Comment: Speci men Type: BLOOD SPECIMENOrdering Facility: [facility] Address: [address] [place], [place] [address] Performed By: #### 2 4323-8, 33474-2, 2777-1, 3084-1 ####[facility] [id number] [address] [place] ALT [Catalytic activity/Vol] 15 U/L Normal 7-38 [facility] Comment on above: Order Comment: Speci men Type: BLOOD SPECIMENOrdering Facility: [facility] Address: [address] [place], [place] [address] Performed By: #### 2 4323-8, 11043-0, 7-1, 3084-1 ####[facility] LABIA [id number] [address] [place] Anion gap [Moles/Vol] 11 mmol/L Normal 9-18 [facility] Comment on above: Order Comment: Speci men Type: BLOOD SPECIMENOrdering Facility: [facility] Address: [address] [place], [place] [address] Performed By: #### 2 4323-8, 24760-3, 2776-, 3084-1 ####[facility] LABCLIA [id number] [place] [address] [place] AST [Catalytic activity/Vol] 15 U/L Normal 13-35 [facility] Comment on above: Order Comment: Speci men Type: BLOOD SPECIMENOrdering Facility: [facility] Address: [address] [place] [address] Performed By: #### 2 4323-8, 14667-5, 2776-, 3084-1 ####[facility] LABIA [id number] [place] [address] [place] Bilirubin [Mass/Vol] 0.3 mg/dL Normal 0.2-1.3 [facility] Comment on above: Order Comment: Speci men Type: BLOOD SPECIMENOrdering Facility: [facility] Address: [address] [place] [address] Performed By: #### 2 4323-8, 83645-5, 2776-, 3084-1 ####[facility] LABIA [id number] [place] [address] [place] Calcium [Mass/Vol] 8.2 mg/dL Low 8.5-10.2 [facility] Comment on above: Order Comment: Speci men Type: BLOOD SPECIMENOrdering Facility: [facility] Address: [address] [place], [place] [address] Performed By: #### 2 4323-8, 72454-8, 2776-, 3084-1 ####[facility] LABIA [id number] [place] [address] [place] Chloride [Moles/Vol] 107 mmol/L High 97-105 [facility] Comment on above: Order Comment: Speci men Type: BLOOD SPECIMENOrdering Facility: [facility] Address: [address] [place], [place] [address] Performed By: #### 2 4323-8, 81489-3, 2776-09, 3083-09 ####[facility] LABCLIA [id number] [place] [address] [place] CO2 [Moles/Vol] 22 mmol/L Normal 22-30 [facility] Comment on above: Order Comment: Speci men Type: BLOOD SPECIMENOrdering Facility: [facility] Address: [address] [place] [address] Performed By: #### 2 4323-8, 51930-4, 2776-09, 3083- ####[facility] LABCLIA [id number] [address] [place] Creatinine [Mass/Vol] 0.96 mg/dL Normal 0.58-0.96 [facility] Comment on above: Order Comment: Speci men Type: BLOOD SPECIMENOrdering Facility: [facility] Address: [address] [place] [address] Performed By: #### 2 4323-8, , 2776-09, 3083-09 ####[facility] LABIA [id number] [address] [place] Creatinine and Glomerular filtration rate.predicted panel (S/P/Bld) 64 mL/min/1.73m??? Normal >=60 [facility] Comment on above: Order Comment: Speci men Type: BLOOD SPECIMENOrdering Facility: [facility] Address: [address] [place] [address] Result Comment: Berenice mated Glomerular Filtration Rate [...] actual GFR. Performed By: #### 2 4323-8, 04720-7, 2776-, 3083- ####[facility] LABCLIA [id number] [place] [address] [place] Glucose [Mass/Vol] 105 mg/dL High 74-99 [facility] Comment on above: Order Comment: Speci men Type: BLOOD SPECIMENOrdering Facility: [facility] Address: [address] [place] [address] Result Comment: The [place] [employer] (ADA) provides guidance for cutoff [...] Standards of Medical Care in Diabetes 2016, [place] [employer]. Diabetes Care. 2016.39(Suppl 1). Performed By: #### 2 4323-8, 33000-8, 2777-1, 3084-1 ####[facility] LABIA [id number] [place] [address] [place] Potassium [Moles/Vol] 3.3 mmol/L Low 3.7-5.1 [facility] Comment on above: Order Comment: Speci men Type: BLOOD SPECIMENOrdering Facility: [facility] Address: [address] [place] [address] Performed By: #### 2 4323-8, 90085-1, 2777-1, 3084-1 ####[facility] LABIA [id number] [place] [address] [place] Protein [Mass/Vol] 5.4 g/dL Low 6.3-8.0 [facility] Comment on above: Order Comment: Speci men Type: BLOOD SPECIMENOrdering Facility: [facility] Address: [address] [place] [address] Performed By: #### 2 4323-8, 61871-3, 2777-1, 3084-1 ####[facility] LABIA [id number] [place] [address] [place] Sodium [Moles/Vol] 140 mmol/L Normal 136-144 [facility] Comment on above: Order Comment: Speci men Type: BLOOD SPECIMENOrdering Facility: [facility] Address: [address] [place] [address] Performed By: #### 2 4323-8, 12955-4, 277-1, 3084-1 ####[facility] LABIA [id number] [place] [address] [place] Urea nitrogen [Mass/Vol] 13 mg/dL Normal 7-21 [facility] Comment on above: Order Comment: Speci men Type: BLOOD SPECIMENOrdering Facility: [facility] Address: [address] [place] [address] Performed By: #### 2 4323-8, 17298-9, 277-, 3084-1 ####[facility] [id number] [place] [address] [place] Magnesium SerPl-mCncon 06-02 Magnesium [Mass/Vol] 2.0 mg/dL Normal 1.7-2.3 [facility] Comment on above: Order Comment: Speci men Type: BLOOD SPECIMENOrdering Facility: [facility] Address: [address] [place], [place] [address] Performed By: #### 2 4323-8, 28629-6, 2777-1, 3084-1 ####[facility] LABIA [id number] [place] [address] [place] Phosphate SerPl-mCncon 06-02 Phosphate [Mass/Vol] 3.8 mg/dL Normal 2.7-4.8 [facility] Comment on above: Order Comment: Speci men Type: BLOOD SPECIMENOrdering Facility: [facility] Address: [address] [place] [address] Performed By: #### 2 4323-8, 81660-9, 2777-1, 3084-1 ####[facility] LABCLIA [id number] [address] [place] Urate SerPl-mCncon 3 Urate [Mass/Vol] 3.1 mg/dL Normal 2.5-6.6 [facility] Comment on above: Order Comment: Speci men Type: BLOOD SPECIMENOrdering Facility: [facility] Address: [address] [place] [address] Performed By: #### 2 4323-8, 60660-5, 2776-1, 3084-1 ####[facility] LABCLIA [id number] [place] [address] [place] ACUTE LEUKEMIA NGS PANEL, ZEENAT NE MARROWon 06-01-2023 ACUTE LEUK NGS PANEL, BONE MARROW Normal [facility] Comment on above: Order Comment: Speci men Type: BONE MARROW SPECIMENOrdering Facility: [facility] Address: [address] [place] [address] Result Comment: Acut e Leukemia NGS Panel, Bone MarrowLaboratory Accession Number: [id number]:Please see linked document and/or separate report for full result whenavailable.As reviewed by Zenia Mae, PhD, [facility] Performed By: #### F 3IM, HDMNGS ####[facility] LIMSCLIA [id number] [address] [place] AML MRD BY FCon 06-01-2023 AML MRD BY FC View results in Scan talia Documents link when available. Normal [facility] Comment on above: Order Comment: Speci men Type: BONE MARROW SPECIMENOrdering Facility: [facility] Address: [address] [place] [address] Performed By: #### A MLMRD ####[facility] MOLECULAR MICROCLIA [id number] [place] [address] BONE MARROW ANALYSISon 06-01 ADDENDUM 1: Normal [facility] Comment on above: Order Comment: Speci men Type: BONE MARROW SPECIMENOrdering Facility: [facility] Address: [address] [place] [address] Result Comment: Markus tional immunohistochemistry is performed [...] 3:24 PM Performed By: #### B MRT ####[facility] LABIA [id number] [address] [place] CASE REPORT Normal [facility] Comment on above: Order Comment: Speci men Type: BONE MARROW SPECIMENOrdering Facility: [facility] Address: [address] [place] [address] Result Comment: Bone Marrow Pathology Report Case: [id number] Provider: Smith Hdez MD Collected: 06/01/2023 09:00 AMOrdering Location: [place] [address] Received: 06/01/2023 09:20 AMPathologist: Janet Saba, DOSpecimens: A) - BONE MARROW ASPIRATE RIGHT POSTERIOR ILIAC CREST B) - BONE MARROW BIOPSY RIGHT POSTERIOR ILIAC CREST C) - BONE MARROW CLOT RIGHT POSTERIOR ILIAC CREST D) - Peripheral blood smear Performed By: #### B MRT ####[facility] LABCLIA [id number] [address] [place] DIAGNOSIS COMMENT Normal [facility] Comment on above: Order Comment: Speci men Type: BONE MARROW SPECIMENOrdering Facility: [facility] Address: [address] [place] [address] Result Comment: The patient is 67 years old female with past medical history of breast cancer status post treatment and recent diagnosis of acute myeloid leukemia with complex cytogenetics. 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???s A[facility] [place] ([facility], [facility], [facility], [facility], [facility], Count Includes [facility], or [facility]) in a manner consistent with CLIA requirements. One or more of these tests have not been cleared or approved by the FDA. [facility] is regulated under CLIA as qualified to perform high-complexity testing. These tests are used for clinical purposes. They should not be regarded as investigational or for research. Positive and negative controls stain appropriately. Performed By: #### B MRT ####[facility] LABCLIA [id number] [facility] [id number] [place] FINAL DIAGNOSIS Normal [facility] Comment on above: Order Comment: Speci men Type: BONE MARROW SPECIMENOrdering Facility: [facility] Address: [address] [place] [address] Result Comment: A-C: Bone marrow, aspirate smears, touch imprint, clot section and biopsy:- Acute myeloid leukemia.- Hypercellular marrow (50-60%) with trilineage hematopoiesis, granulocytic left shift, 28% blasts and multilineage dysplasia.- Few B-cell rich lymphoid aggregates.- See comment.D: Peripheral blood smear:- Pancytopenia with circulating blasts.HJR/AMENA 06/05/2023 Performed By: #### B MRT ####[facility] LABCLIA [id number] [address] [place] GROSS DESCRIPTION Normal [facility] Comment on above: Order Comment: Speci men Type: BONE MARROW SPECIMENOrdering Facility: [facility] Address: [address] [place] [address] Result Comment: A. B ONE MARROW ASPIRATE [...] Submitted for light microscopy.Gross examination performed at [facility], [address] [place], [place] [address] June 01, 2023 7:34 PM Performed By: #### B MRT ####[facility] LABCLIA [id number] [address] OF [facility] MICROSCOPIC DESCRIPTION Normal [facility] Comment on above: Order Comment: Speci men Type: BONE MARROW SPECIMENOrdering Facility: [facility] Address: [address], [place] [id number] Result Comment: GENNY PHERAL BLOOD:CBC (06/01/2023 12:35 [...] in number.Immunohistochemical stains were performed at the [facility] with appropriate controls for further characterization [...] coat stored. Performed By: #### B MRT ####[facility] LABCLIA [id number] [place] [address] [place] BONE MARROW CHROMOSOME ANALo n 06-01-2023 CHROMOSOME BM Normal [facility] Comment on above: Order Comment: Order ing [facility] Address: [address] [place] [address] Result Comment: Edel knight Accession Number: [id number]: Hortencia Hdezathologist: Beatrice Pathology No: [id number] diagnosis: AMLSpecimen Type: Bone MarrowReceived Date: 06/01/2023Number [...] reviewed by Jovanny Hooper, PhD, FACMGPerformed by St. [facility] HospitalPathology and Laboratory Medicine InstituteDivision of Molecular PathologyCytogenetics Lab, [id number] [facility]. [place], [place] [address]Yrjbm: Toll free: Performed By: #### C [facility] ####[facility]OSPITALSCLI [id number] [address] [address] [place] CBC W Auto Differential pane l (Bld)on 09-29-2023 Anisocytosis Ql (Bld) Present Normal [facility] Comment on above: Order Comment: Speci men Type: BLOOD SPECIMENOrdering Facility: [facility] Address: [address] Performed By: #### 5 7021-8 ####[facility] LABCLIA [id number] [place] [address] [place] Basophils (Bld) [#/Vol] 0.00 10*3/uL Normal <0.11 [facility] Comment on above: Order Comment: Speci men Type: BLOOD SPECIMENOrdering Facility: [facility] Address: [address] [place] [address] Performed By: #### 5 7021-8 ####[facility] LABCLIA [id number] [address] [place] Basophils/100 WBC (Bld) 0.0 % Normal [facility] Comment on above: Order Comment: Speci men Type: BLOOD SPECIMENOrdering Facility: [facility] Address: [address] Performed By: #### 5 7021-8 ####[facility] LABCLIA [id number] [address] [place] BLAST% 7.1 % High <=0.0 [facility] Comment on above: Order Comment: Speci men Type: BLOOD SPECIMENOrdering Facility: [facility] Address: [address] Performed By: #### 5 7021-8 ####[facility] LABCLIA [id number] [place] [address] [place] Differential cell count method Nom (Bld) Manual Normal [facility] Comment on above: Order Comment: Speci men Type: BLOOD SPECIMENOrdering Facility: [facility] Address: [address] Performed By: #### 5 7021-8 ####[facility] LABCLIA [id number] [place] [address] [place] Eosinophils (Bld) [#/Vol] 0.03 10*3/uL Normal <0.46 [facility] Comment on above: Order Comment: Speci men Type: BLOOD SPECIMENOrdering Facility: [facility] Address: [address] [place] [address] Performed By: #### 5 7021-8 ####[facility] LABCLIA [id number] [place] [address] [place] Eosinophils/100 WBC (Bld) 1.8 % Normal [facility] Comment on above: Order Comment: Speci men Type: BLOOD SPECIMENOrdering Facility: [facility] Address: [address] [place] [address] Performed By: #### 5 7021-8 ####[facility] LABCLIA [id number] [place] [address] [place] Erythrocyte distribution width (RBC) [Ratio] 18.3 % High 11.5-15.0 [facility] Comment on above: Order Comment: Speci men Type: BLOOD SPECIMENOrdering Facility: [facility] Address: [address] [place] [address] Performed By: #### 5 7021-8 ####[facility] LABCLIA [id number] [place] [address] [place] Hematocrit (Bld) [Volume fraction] 19.2 % Low 36.0-46.0 [facility] Comment on above: Order Comment: Speci men Type: BLOOD SPECIMENOrdering Facility: [facility] Address: [address] [place], [place] [address] Performed By: #### 5 7021-8 ####[facility] LABCLIA [id number] [place] [address] [place] Hemoglobin (Bld) [Mass/Vol] 6.6 g/dL Low 11.5-15.5 [facility] Comment on above: Order Comment: Speci men Type: BLOOD SPECIMENOrdering Facility: [facility] Address: [address] [place] [address] Performed By: #### 5 7021-8 ####[facility] LABIA [id number] [place] [address] [place] HYPOGRANULATED PMNS Present Normal [facility] Comment on above: Order Comment: Speci men Type: BLOOD SPECIMENOrdering Facility: [facility] Address: [address] Performed By: #### 5 7021-8 ####[facility] LABIA [id number] [place] [address] [place] Lymphocytes (Bld) [#/Vol] 1.33 10*3/uL Normal 1.00-4.00 [facility] Comment on above: Order Comment: Speci men Type: BLOOD SPECIMENOrdering Facility: [facility] Address: [address] Performed By: #### 5 7021-8 ####[facility] LABIA [id number] [address] [place] Lymphocytes/100 WBC (Bld) 76.8 % Normal [facility] Comment on above: Order Comment: Speci men Type: BLOOD SPECIMENOrdering Facility: [facility] Address: [address] [place], [place] [address] Performed By: #### 5 7021-8 ####[facility] LABIA [id number] [place] [address] [place] MCH (RBC) [Entitic mass] 34.7 pg High 26.0-34.0 [facility] Comment on above: Order Comment: Speci men Type: BLOOD SPECIMENOrdering Facility: [facility] Address: [address] Performed By: #### 5 7021-8 ####[facility] LABCLIA [id number] [place] [address] [place] MCHC (RBC) [Mass/Vol] 34.4 g/dL Normal 30.5-36.0 [facility] Comment on above: Order Comment: Speci men Type: BLOOD SPECIMENOrdering Facility: [facility] Address: [address] [place] [address] Performed By: #### 5 7021-8 ####[facility] LABIA [id number] [place] [address] [place] MCV (RBC) [Entitic vol] 101.1 fL High 80.0-100.0 [facility] Comment on above: Order Comment: Speci men Type: BLOOD SPECIMENOrdering Facility: [facility] Address: [address] [place] [address] Performed By: #### 5 7021-8 ####[facility] LABIA [id number] [place] [address] [place] Monocytes (Bld) [#/Vol] 0.00 10*3/uL Normal <0.87 [facility] Comment on above: Order Comment: Speci men Type: BLOOD SPECIMENOrdering Facility: [facility] Address: [address] [place] [address] Performed By: #### 5 7021-8 ####[facility] LABIA [id number] [address] [place] Monocytes/100 WBC (Bld) 0.0 % Normal [facility] Comment on above: Order Comment: Speci men Type: BLOOD SPECIMENOrdering Facility: [facility] Address: [address] [place], [place] [address] Performed By: #### 5 7021-8 ####[facility] LABIA [id number] [place] [address] [place] MYELO% 0.9 % Normal [facility] Comment on above: Order Comment: Speci men Type: BLOOD SPECIMENOrdering Facility: [facility] Address: [address] Performed By: #### 5 7021-8 ####[facility] LABCLIA [id number] [place] [address] [place] Neutrophils (Bld) [#/Vol] 0.23 10*3/uL Low 1.45-7.50 [facility] Comment on above: Order Comment: Speci men Type: BLOOD SPECIMENOrdering Facility: [facility] Address: [address] [place] [address] Performed By: #### 5 7021-8 ####[facility] LABCLIA [id number] [address] [place] Neutrophils/100 WBC (Bld) 13.4 % Normal [facility] Comment on above: Order Comment: Speci men Type: BLOOD SPECIMENOrdering Facility: [facility] Address: [address] Performed By: #### 5 7021-8 ####[facility] LABCLIA [id number] [place] [address] [place] Nucleated RBC (Bld) [#/Vol] 10*3/uL Normal <0.01 [facility] Comment on above: Order Comment: Speci men Type: BLOOD SPECIMENOrdering Facility: [facility] Address: [address] Performed By: #### 5 7021-8 ####[facility] LABCLIA [id number] [place] [address] [place] Nucleated RBC/100 WBC (Bld) [Ratio] 0.0 /100 WBC Normal [facility] Comment on above: Order Comment: Speci men Type: BLOOD SPECIMENOrdering Facility: [facility] Address: [address] Performed By: #### 5 7021-8 ####[facility] LABCLIA [id number] [place] [address] [place] Ovalocytes LM Ql (Bld) Few Normal [facility] Comment on above: Order Comment: Speci men Type: BLOOD SPECIMENOrdering Facility: [facility] Address: [address] [place] [address] Performed By: #### 5 7021-8 ####[facility] LABCLIA [id number] [place] [address] [place] Platelet mean volume (Bld) [Entitic vol] Normal [facility] Comment on above: Order Comment: Speci men Type: BLOOD SPECIMENOrdering Facility: [facility] Address: [address] [place] [address] Result Comment: Unab le to Report. Performed By: #### 5 7021-8 ####[facility] LABIA [id number] [place] [address] [place] Platelets (Bld) [#/Vol] 10 10*3/uL Low 150-400 [facility] Comment on above: Order Comment: Speci men Type: BLOOD SPECIMENOrdering Facility: [facility] Address: [address] [place] [address] Result Comment: Resu lts checked and verified.No clot detected. Performed By: #### 5 7021-8 ####[facility] LABCLIA [id number] [place] [address] [place] Platelets Estimate (Bld) [#/Vol] Decreased Normal [facility] Comment on above: Order Comment: Speci men Type: BLOOD SPECIMENOrdering Facility: [facility] Address: [address] [place] [address] Performed By: #### 5 7021-8 ####[facility] LABCLIA [id number] [place] [address] [place] Polychromasia LM Ql (Bld) Slight Normal [facility] Comment on above: Order Comment: Speci men Type: BLOOD SPECIMENOrdering Facility: [facility] Address: [address] Performed By: #### 5 7021-8 ####[facility] LABCLIA [id number] [place] [address] [place] RBC (Bld) [#/Vol] 1.90 10*6/uL Low 3.90-5.20 [facility] Comment on above: Order Comment: Speci men Type: BLOOD SPECIMENOrdering Facility: [facility] Address: [address] Performed By: #### 5 7021-8 ####[facility] LABCLIA [id number] [place] [address] [place] RBC FRAGMENTS Few Abnormal None Seen [facility] Comment on above: Order Comment: Speci men Type: BLOOD SPECIMENOrdering Facility: [facility] Address: [address] [place], [place] [address] Performed By: #### 5 7021-8 ####[facility] LABCLIA [id number] [address] STATES [facility] RED CELL MORPH Reviewed: see result s of individual morphologies Normal [facility] Comment on above: Order Comment: Speci men Type: BLOOD SPECIMENOrdering Facility: [facility] Address: [address] [place] [address] Performed By: #### 5 7021-8 ####[facility] LABCLIA [id number] [place] [address] [place] WBC (Bld) [#/Vol] 1.73 10*3/uL Low 3.70-11.00 [facility] Comment on above: Order Comment: Speci men Type: BLOOD SPECIMENOrdering Facility: [facility] Address: [address] Performed By: #### 5 7021-8 ####[facility] LABCLIA [id number] [place] [address] [place] WBC Left Shift Ql (Bld) Present Normal [facility] Comment on above: Order Comment: Speci men Type: BLOOD SPECIMENOrdering Facility: [facility] Address: [address] [place] [address] Performed By: #### 5 7021-8 ####[facility] LABIA [id number] [place] [address] [place] CONSULT PROGon 06-01-2023 CONSULT PROG Normal [facility] CT BIOPSY BONE MARROW (HEMO) on 06-01-2023 CT BIOPSY BONE MARROW (HEMO) Normal [facility] Comprehensive metabolic 2000 panelon 06-01-2023 Albumin [Mass/Vol] 3.4 g/dL Low 3.9-4.9 [facility] Comment on above: Order Comment: Speci men Type: BLOOD SPECIMENOrdering Facility: [facility] Address: [address] [place] [address] Performed By: #### 3 084-1, 18809-2, 24742-8, 2776-1 ####[facility] LABIA [id number] [place] [address] [place] ALP [Catalytic activity/Vol] 53 U/L Normal 34-123 [facility] Comment on above: Order Comment: Speci men Type: BLOOD SPECIMENOrdering Facility: [facility] Address: [address] Performed By: #### 3 084-1, 21330-4, 75936-2, 2776-1 ####[facility] LABIA [id number] [address] [place] ALT [Catalytic activity/Vol] 14 U/L Normal 7-38 [facility] Comment on above: Order Comment: Speci men Type: BLOOD SPECIMENOrdering Facility: [facility] Address: [address] [place] [address] Performed By: #### 3 084-1, 34524-3, 98000-4, 2776-09 ####[facility] LABCLIA [id number] [place] [address] [place] Anion gap [Moles/Vol] 11 mmol/L Normal 9-18 [facility] Comment on above: Order Comment: Speci men Type: BLOOD SPECIMENOrdering Facility: [facility] Address: [address] [place] [address] Performed By: #### 3 084-1, 27534-3, 13433-4, 2776-09 ####[facility] LABCLIA [id number] [place] [address] [place] AST [Catalytic activity/Vol] 12 U/L Low 13-35 [facility] Comment on above: Order Comment: Speci men Type: BLOOD SPECIMENOrdering Facility: [facility] Address: [address] [place] [address] Performed By: #### 3 084-1, 42199-5, 36105-8, 2776-09 ####[facility] LABCLIA [id number] [place] [address] [place] Bilirubin [Mass/Vol] 0.2 mg/dL Normal 0.2-1.3 [facility] Comment on above: Order Comment: Speci men Type: BLOOD SPECIMENOrdering Facility: [facility] Address: [address] [place], [place] [address] Performed By: #### 3 084-1, 09642-0, 66336-6, 2776-09 ####[facility] LABCLIA [id number] [place] [address] [place] Calcium [Mass/Vol] 8.7 mg/dL Normal 8.5-10.2 [facility] Comment on above: Order Comment: Speci men Type: BLOOD SPECIMENOrdering Facility: [facility] Address: [address] [place] [address] Performed By: #### 3 084-1, 44281-8, , 2776-09 ####[facility] LABCLIA [id number] [place] [address] [place] Chloride [Moles/Vol] 109 mmol/L High 97-105 [facility] Comment on above: Order Comment: Speci men Type: BLOOD SPECIMENOrdering Facility: [facility] Address: [address] [place] [address] Performed By: #### 3 084-1, 99081-5, , 2776-09 ####[facility] LABCLIA [id number] [place] [address] [place] CO2 [Moles/Vol] 21 mmol/L Low 22-30 [facility] Comment on above: Order Comment: Speci men Type: BLOOD SPECIMENOrdering Facility: [facility] Address: [address] [place] [address] Performed By: #### 3 084-1, 10477-2, , 2776-09 ####[facility] LABCLIA [id number] [place] [address] [place] Creatinine [Mass/Vol] 1.03 mg/dL High 0.58-0.96 [facility] Comment on above: Order Comment: Speci men Type: BLOOD SPECIMENOrdering Facility: [facility] Address: [address] [place], [place] [address] Performed By: #### 3 084-1, 32265-3, 61626-3, 2776-09 ####[facility] LABCLIA [id number] [place] [address] [place] Creatinine and Glomerular filtration rate.predicted panel (S/P/Bld) 59 mL/min/1.73m??? Low >=60 [facility] Comment on above: Order Comment: Speci men Type: BLOOD SPECIMENOrdering Facility: [facility] Address: [address] [place] [id number] Result Comment: Berenice mated Glomerular Filtration Rate [...] actual GFR. Performed By: #### 3 084-1, 41726-7, , 2776-09 ####[facility] LABIA [id number] [place] [address] [place] Glucose [Mass/Vol] 106 mg/dL High 74-99 [facility] Comment on above: Order Comment: Elvia escobar Type: BLOOD SPECIMENOrdering Facility: [facility] Address: [address] [place] [address] Result Comment: The [place] [employer] (ADA) provides guidance for cutoff [...] Standards of Medical Care in Diabetes 2016, [place] [employer]. Diabetes Care. 2016.39(Suppl 1). Performed By: #### 3 084-1, 56237-8, , 2776-09 ####[facility] LABIA [id number] [place] [address] [place] Potassium [Moles/Vol] 3.7 mmol/L Normal 3.7-5.1 [facility] Comment on above: Order Comment: Elvia escobar Type: BLOOD SPECIMENOrdering Facility: [facility] Address: [address] [place] [address] Performed By: #### 3 084-1, 95888-6, , 2776-09 ####[facility] LABIA [id number] [place] [address] [place] Protein [Mass/Vol] 5.4 g/dL Low 6.3-8.0 [facility] Comment on above: Order Comment: Speci men Type: BLOOD SPECIMENOrdering Facility: [facility] Address: [address] [place] [address] Performed By: #### 3 084-1, 34638-1, , 2776-09 ####[facility] LABIA [id number] [place] [address] [place] Sodium [Moles/Vol] 141 mmol/L Normal 136-144 [facility] Comment on above: Order Comment: Speci men Type: BLOOD SPECIMENOrdering Facility: [facility] Address: [address] [place] [address] Performed By: #### 3 084-1, 57583-3, , 2776-09 ####[facility] LABIA [id number] [place] [address] [place] Urea nitrogen [Mass/Vol] 16 mg/dL Normal 7-21 [facility] Comment on above: Order Comment: Speci men Type: BLOOD SPECIMENOrdering Facility: [facility] Address: [address] [place] [address] Performed By: #### 3 084-1, 66134-4, , 2776-09 ####[facility] LABIA [id number] [place] [address] [place] DNA EXTRACTION BONE MARROW ( [place]FFY COAT)on 06-01-2023 DNA EXTRACTION BONE MARROW (BUFFY COAT) Normal [facility] Comment on above: Order Comment: Speci men Type: BONE MARROW SPECIMENOrdering Facility: [facility] Address: [address] [id number] Result Comment: This specimen was received and successfully processed for future DNA purification should molecular testing be needed. Specimens will be available for 3 years from date of collection.To order testing on this specimen for [facility] patients, please place an [facility] order for DNA and RNA Clinical Testing (SQNUCADD). To order testing for patients outside of the [facility] system, please request DNA and RNA for Clinical Testing, order code [id number].If additional paperwork is required for testing, please send completed forms via secure email to . Performed By: #### N UCBUF ####[facility] LIMSCLIA [id number] [address] FLOW CYTOMETRY FOR LEUKEMIA/ LYMPHOMA (FCLL) PERFORMABLEon 06-01-2023 FLOW CYTOMETRY ORDER STATUS See Results in chart under F case ID Normal [facility] Comment on above: Order Comment: Speci luz Type: BONE MARROW SPECIMENOrdering Facility: [facility] Address: [address] [place], [place] [address] Result Comment: Vero ected result: Previously reported as A bone marrow sample was received for potential flow cytometry studies. Following morphologic review, flow cytometric studies will be ordered by the hematopathologist if testing is indicated. on 06/01/2023 at9:31 AM EDT. Performed By: #### F CLLP, FCLLRFLX ####[facility] LABCLIA [id number] [address] STATES OF [facility] FLOW CYTOMETRY FOR LEUKEMIA/ LYMPHOMA (FCLL) REFLEXon 06-01-2023 DIAGNOSIS COMMENT Normal [facility] Comment on above: Order Comment: Speci luz Type: BONE MARROW SPECIMENOrdering Facility: [facility] Address: [address] [place], [place] [address] Performed By: #### F CLLP, FCLLRFLX ####[facility] LABCLIA [id number] [address] STATES [facility] FINAL PERFORMING LAB Normal [facility] Comment on above: Order Comment: Speci men Type: BONE MARROW SPECIMENOrdering Facility: [facility] Address: [address] [address] Result Comment: Diag nostic interpretation performed at [facility], [address] [address] CLIA# [id number] Director: Boris Wood M.D. Performed By: #### F CLLP, FCLLRFLX ####[facility] LABCLIA [id number] [address] Order Comment: Elvia escobar Type: BONE MARROW SPECIMENOrdering Facility: [facility] Address: [address] [place] [address] Performed By: #### B MRT ####[facility] LABCLIA [id number] [address] FLOW CYTOMETRY RESULTS Normal [facility] Comment on above: Order Comment: Elvia men Type: BONE MARROW SPECIMENOrdering Facility: [facility] Address: [address] [place] [address] Result Comment: Spec imen type: Bone marrow aspirateViability: 99%Morphology comments: See associated bone marrow biopsy report.Results:Marker Normal Cell Result (Lymph) Type CD2 T-cell Normal patternCD3 T-cell Normal patternCD4 T-cell subset Normal patternCD5 T-cell Normal patternCD7 T-cell Normal patternCD8 T-cell subset Normal gethzwsYZ01 B-cell Normal hvaozwkCS33 Myeloid Normal yideybsCO41/56 NK-cell Normal fshsbhgUN37 B-cell Normal olbjvicNC52 B-cell Normal pypczhgUT63 B-cell Normal mtdryhjTR61 Hough-leukocyte Normal zyusfrjQL543 B-cell Normal ajjsvvkNL649 B-cell Normal patternKappa/Lambda B-cell subset PolytypicTRBC1 T-cell Normal, polytypicFlow cytometric analysis of the bone marrow aspirate reveals that 13% of total events have the CD45 and light scatter properties of lymphocytes. The lymphocytes are composed of T-cells (91%, CD4:CD8 ratio = 3.2), NK cells (1%), and polytypic B-cells (8%). Performed By: #### F CLLP, FCLLRFLX ####[facility] LABCLIA [id number] [address] STATES [place] GROSS DESCRIPTION A. Bone Marrow Normal [facility] Comment on above: Order Comment: Speci luz Type: BONE MARROW SPECIMENOrdering Facility: [facility] Address: [address] [place] [address] Result Comment: Rece ived 3 ml BM in heparin. Performed By: #### F MARY ANNE, ALEJANDRORFLX ####[facility] LABCLIA [id number] [address] [place] INTERPRETATION Normal [facility] Comment on above: Order Comment: Elvia escboar Type: BONE MARROW SPECIMENOrdering Facility: [facility] Address: [address] [place] [address] Result Comment: The lymphoproliferative disorder panel is performed on this bone marrow by flow cytometry. There is no immunophenotypic evidence of involvement by a lymphoproliferative disorder. Correlation with the clinical and bone marrow histopathologic findings is suggested. Performed By: #### F ALEJANDRO NORTHRFCelestineX ####[facility] LABCLIA [id number] [address] [place] FLT3 ITD HN BONE MARROWon CLARITY SIGNOUT PATHOLOGIST [id number] Normal [facility] Comment on above: Order Comment: Rochellei luz Type: BONE MARROW SPECIMENOrdering Facility: [facility] Address: [address] [place] [address] Performed By: #### F 3IKim, LEFTYNGS ####[facility] LIMSCLIA [id number] [address] [place] [address] [place] FLT3 ITD HN PANEL BONE MARROW Normal [facility] Comment on above: Order Comment: Speci men Type: BONE MARROW SPECIMENOrdering Facility: [facility] Address: [address] [place] [id number] Result Comment: FLT3 Internal Tandem Duplication (ITD) Mutation TestingLaboratory Accession Number: [id number] Internal Tandem Duplication (ITD) mutation: Not DetectedComment:FLT3/ITD [...] from the specimen provided. Regions of the BYC3ljjqtbud kinase receptor gene are subjected to the [...] myeloid leukemia. N Engl J Med.2011Nov 22;366 (12):5454-39.3) Sandra H, Dee E, Sharon Vaughan, et al. Diagnosis and mangement ofAML in adults: 2017 ELN recommendations from an international expertpanel. Blood 129,[phone] (2017).Disclaimer:This test was developed and its performance characteristics determinedby [facility] [place] ([facility]). It has not been cleared or approved bythe FDA. [facility] is regulated under CLIA as certified to perform high-complexity testing. This test is used for clinical purposes. It shouldnot be regarded as investigational or for research.[place] [address]. [place] Number: [id number] reviewed by Leslye Ha MD, PhD Performed By: #### F 3I, HDMNGS ####[facility] LIMSCLIA [id number] [address] [place] HISTORY PHYSICALon HISTORY PHYSICAL Normal [facility] Magnesium [facility] Magnesium [Mass/Vol] 2.1 mg/dL Normal 1.7-2.3 [facility] Comment on above: Order Comment: Speci men Type: BLOOD SPECIMENOrdering Facility: [facility] Address: [address] [place] [address] Performed By: #### 3 084-1, 16165-5, 19058-2, 2777-1 ####[facility] LABCLIA [id number] [address] OF [place] PT EDon 06-01-2023 PT ED Normal [facility] Phosphate SerPl-mCncon 06-01 Phosphate [Mass/Vol] 4.4 mg/dL Normal 2.7-4.8 [facility] Comment on above: Order Comment: Speci men Type: BLOOD SPECIMENOrdering Facility: [facility] Address: [address] [place], [place] [address] Performed By: #### 3 084-1, 11354-6, 47317-6, 2776- ####[facility] LABCLIA [id number] [place] [address] [place] Urate SerPl-mCncon 3 Urate [Mass/Vol] 3.2 mg/dL Normal 2.5-6.6 [facility] Comment on above: Order Comment: Speci men Type: BLOOD SPECIMENOrdering Facility: [facility] Address: [address] [address] Performed By: #### 3 084-1, 12901-1, , 2776-09 ####[facility] LABCLIA [id number] [place] [address] [place] ALLIED HEALTHon 05-31-2023 ALLIED HEALTH Normal [facility] CBC W Auto Differential pane l (Bld)on 05-31-2023 Anisocytosis Ql (Bld) Present Normal [facility] Comment on above: Order Comment: Speci men Type: BLOOD SPECIMENOrdering Facility: [facility] Address: [address] [address] Performed By: #### 5 7021-8 ####[facility] LABCLIA [id number] [place] [address] [place] Basophils (Bld) [#/Vol] 0.00 10*3/uL Normal <0.11 [facility] Comment on above: Order Comment: Speci men Type: BLOOD SPECIMENOrdering Facility: [facility] Address: [address] [address] Performed By: #### 5 7021-8 ####[facility] LABCLIA [id number] [place] [address] [place] Basophils/100 WBC (Bld) 0.0 % Normal [facility] Comment on above: Order Comment: Speci men Type: BLOOD SPECIMENOrdering Facility: [facility] Address: [address] Performed By: #### 5 7021-8 ####[facility] LABCLIA [id number] [place] [address] [place] BLAST% 1.8 % High <=0.0 [facility] Comment on above: Order Comment: Speci men Type: BLOOD SPECIMENOrdering Facility: [facility] Address: [address] [address] Performed By: #### 5 7021-8 ####[facility] LABCLIA [id number] [place] [address] [place] Differential cell count method Nom (Bld) Manual Normal [facility] Comment on above: Order Comment: Speci men Type: BLOOD SPECIMENOrdering Facility: [facility] Address: [address] [place], [place] [address] Performed By: #### 5 7021-8 ####[facility] LABCLIA [id number] [place] [address] [place] Eosinophils (Bld) [#/Vol] 0.06 10*3/uL Normal <0.46 [facility] Comment on above: Order Comment: Speci men Type: BLOOD SPECIMENOrdering Facility: [facility] Address: [address] Performed By: #### 5 7021-8 ####[facility] LABCLIA [id number] [address] [place] Eosinophils/100 WBC (Bld) 3.5 % Normal [facility] Comment on above: Order Comment: Speci men Type: BLOOD SPECIMENOrdering Facility: [facility] Address: [address] Performed By: #### 5 7021-8 ####[facility] LABCLIA [id number] [address] OF [place] Erythrocyte distribution width (RBC) [Ratio] 17.7 % High 11.5-15.0 [facility] Comment on above: Order Comment: Speci men Type: BLOOD SPECIMENOrdering Facility: [facility] Address: [address] [place] [address] Performed By: #### 5 7021-8 ####[facility] LABCLIA [id number] [place] [address] [place] Hematocrit (Bld) [Volume fraction] 21.1 % Low 36.0-46.0 [facility] Comment on above: Order Comment: Speci men Type: BLOOD SPECIMENOrdering Facility: [facility] Address: [address] [place] [address] Performed By: #### 5 7021-8 ####[facility] LABCLIA [id number] [place] [address] [place] Hemoglobin (Bld) [Mass/Vol] 7.2 g/dL Low 11.5-15.5 [facility] Comment on above: Order Comment: Speci men Type: BLOOD SPECIMENOrdering Facility: [facility] Address: [address] [place] [address] Performed By: #### 5 7021-8 ####[facility] LABIA [id number] [place] [address] [place] HYPOGRANULATED PMNS Present Normal [facility] Comment on above: Order Comment: Speci men Type: BLOOD SPECIMENOrdering Facility: [facility] Address: [address] [place] [address] Performed By: #### 5 7021-8 ####[facility] LABCLIA [id number] [place] [address] [place] Lymphocytes (Bld) [#/Vol] 1.43 10*3/uL Normal 1.00-4.00 [facility] Comment on above: Order Comment: Speci men Type: BLOOD SPECIMENOrdering Facility: [facility] Address: [address] Performed By: #### 5 7021-8 ####[facility] LABCLIA [id number] [address] Lymphocytes/100 WBC (Bld) 85.9 % Normal [facility] Comment on above: Order Comment: Speci men Type: BLOOD SPECIMENOrdering Facility: [facility] Address: [address] Performed By: #### 5 7021-8 ####[facility] LABIA [id number] [address] [place] MCH (RBC) [Entitic mass] 34.0 pg Normal 26.0-34.0 [facility] Comment on above: Order Comment: Speci men Type: BLOOD SPECIMENOrdering Facility: [facility] Address: [address] Performed By: #### 5 7021-8 ####[facility] LABIA [id number] [address] STATES OF [facility] MCHC (RBC) [Mass/Vol] 34.1 g/dL Normal 30.5-36.0 [facility] Comment on above: Order Comment: Speci men Type: BLOOD SPECIMENOrdering Facility: [facility] Address: [address] [place] [address] Performed By: #### 5 7021-8 ####[facility] LABCLIA [id number] [address] [place] MCV (RBC) [Entitic vol] 99.5 fL Normal 80.0-100.0 [facility] Comment on above: Order Comment: Speci men Type: BLOOD SPECIMENOrdering Facility: [facility] Address: [address] Performed By: #### 5 7021-8 ####[facility] LABCLIA [id number] [place] [address] [place] Monocytes (Bld) [#/Vol] 0.00 10*3/uL Normal <0.87 [facility] Comment on above: Order Comment: Speci men Type: BLOOD SPECIMENOrdering Facility: [facility] Address: [address] [place] [address] Performed By: #### 5 7021-8 ####[facility] LABCLIA [id number] [place] [address] [place] Monocytes/100 WBC (Bld) 0.0 % Normal [facility] Comment on above: Order Comment: Speci men Type: BLOOD SPECIMENOrdering Facility: [facility] Address: [address] [place] [address] Performed By: #### 5 7021-8 ####[facility] LABCLIA [id number] [place] [address] [place] Neutrophils (Bld) [#/Vol] 0.15 10*3/uL Low 1.45-7.50 [facility] Comment on above: Order Comment: Speci men Type: BLOOD SPECIMENOrdering Facility: [facility] Address: [address] [place], [place] [address] Performed By: #### 5 7021-8 ####[facility] LABCLIA [id number] [place] [address] [place] Neutrophils/100 WBC (Bld) 8.8 % Normal [facility] Comment on above: Order Comment: Speci men Type: BLOOD SPECIMENOrdering Facility: [facility] Address: [address] [place], [place] [address] Performed By: #### 5 7021-8 ####[facility] LABCLIA [id number] [place] [address] [place] Nucleated RBC (Bld) [#/Vol] 0.01 10*3/uL High <0.01 [facility] Comment on above: Order Comment: Speci men Type: BLOOD SPECIMENOrdering Facility: [facility] Address: [address] [address] Performed By: #### 5 7021-8 ####[facility] LABCLIA [id number] [place] [address] [place] Nucleated RBC/100 WBC (Bld) [Ratio] 0.9 /100 WBC Normal [facility] Comment on above: Order Comment: Speci men Type: BLOOD SPECIMENOrdering Facility: [facility] Address: [address] [address] Performed By: #### 5 7021-8 ####[facility] LABCLIA [id number] [place] [address] [place] Ovalocytes LM Ql (Bld) Few Normal [facility] Comment on above: Order Comment: Speci men Type: BLOOD SPECIMENOrdering Facility: [facility] Address: [address] [place] [address] Performed By: #### 5 7021-8 ####[facility] LABIA [id number] [place] [address] [place] Platelet mean volume (Bld) [Entitic vol] Normal [facility] Comment on above: Order Comment: Speci men Type: BLOOD SPECIMENOrdering Facility: [facility] Address: [address] [place] [address] Result Comment: Unab le to Report. Performed By: #### 5 7021-8 ####[facility] LABCLIA [id number] [place] [address] [place] Platelets (Bld) [#/Vol] 13 10*3/uL Low 150-400 [facility] Comment on above: Order Comment: Speci men Type: BLOOD SPECIMENOrdering Facility: [facility] Address: [address] [place] [address] Result Comment: No c lot detected.Results checked and verified. Performed By: #### 5 7021-8 ####[facility] LABCLIA [id number] [place] [address] [place] Platelets Estimate (Bld) [#/Vol] Decreased Normal [facility] Comment on above: Order Comment: Speci men Type: BLOOD SPECIMENOrdering Facility: [facility] Address: [address] [place] [address] Performed By: #### 5 7021-8 ####[facility] LABCLIA [id number] [place] [address] [place] Polychromasia LM Ql (Bld) Slight Normal [facility] Comment on above: Order Comment: Speci men Type: BLOOD SPECIMENOrdering Facility: [facility] Address: [address] [place] [address] Performed By: #### 5 7021-8 ####[facility] LABCLIA [id number] [place] [address] [place] RBC (Bld) [#/Vol] 2.12 10*6/uL Low 3.90-5.20 [facility] Comment on above: Order Comment: Speci men Type: BLOOD SPECIMENOrdering Facility: [facility] Address: [address] [place] [address] Performed By: #### 5 7021-8 ####[facility] LABCLIA [id number] [place] [address] [place] RBC FRAGMENTS Few Abnormal None Seen [facility] Comment on above: Order Comment: Speci men Type: BLOOD SPECIMENOrdering Facility: [facility] Address: [address] [place], [place] [address] Performed By: #### 5 7021-8 ####[facility] LABCLIA [id number] [place] [address] [place] RED CELL MORPH Reviewed: see result s of individual morphologies Normal [facility] Comment on above: Order Comment: Speci men Type: BLOOD SPECIMENOrdering Facility: [facility] Address: [address] [place] [address] Performed By: #### 5 7021-8 ####[facility] LABCLIA [id number] [place] [address] [place] WBC (Bld) [#/Vol] 1.66 10*3/uL Low 3.70-11.00 [facility] Comment on above: Order Comment: Speci men Type: BLOOD SPECIMENOrdering Facility: [facility] Address: [address] [place], [place] [address] Result Comment: No c lot detected. Performed By: #### 5 7021-8 ####[facility] LABIA [id number] [address] [place] CNPNon 05-31-2023 CNPN Normal [facility] CONSULT PROGon 05-31-2023 CONSULT PROG Normal [facility] Comprehensive metabolic 2000 panelon 05-31-2023 Albumin [Mass/Vol] 3.5 g/dL Low 3.9-4.9 [facility] Comment on above: Order Comment: Speci men Type: BLOOD SPECIMENOrdering Facility: [facility] Address: [address] [place] [address] Performed By: #### 2 4323-8, 82601-4, 2777-1, 3084-1 ####[facility] LABIA [id number] [place] [address] [place] ALP [Catalytic activity/Vol] 53 U/L Normal 34-123 [facility] Comment on above: Order Comment: Speci men Type: BLOOD SPECIMENOrdering Facility: [facility] Address: [address] [place] [address] Performed By: #### 2 4323-8, 66695-5, 2777-1, 3084-1 ####[facility] LABCLIA [id number] [id number] [address] [place] ALT [Catalytic activity/Vol] 17 U/L Normal 7-38 [facility] Comment on above: Order Comment: Speci men Type: BLOOD SPECIMENOrdering Facility: [facility] Address: [address] [place] [address] Performed By: #### 2 4323-8, 76195-6, 7-1, 3084-1 ####[facility] LABCLIA [id number] [place] [address] [place] Anion gap [Moles/Vol] 10 mmol/L Normal 9-18 [facility] Comment on above: Order Comment: Speci men Type: BLOOD SPECIMENOrdering Facility: [facility] Address: [address] [place] [address] Performed By: #### 2 4323-8, 66689-3, 2776-1, 3084-1 ####[facility] LABIA [id number] [address] [place] AST [Catalytic activity/Vol] 16 U/L Normal 13-35 [facility] Comment on above: Order Comment: Speci men Type: BLOOD SPECIMENOrdering Facility: [facility] Address: [address] [place] [address] Performed By: #### 2 4323-8, 83811-1, 2776-1, 3084-1 ####[facility] LABIA [id number] [place] [address] [place] Bilirubin [Mass/Vol] 0.3 mg/dL Normal 0.2-1.3 [facility] Comment on above: Order Comment: Speci men Type: BLOOD SPECIMENOrdering Facility: [facility] Address: [address] [place] [address] Performed By: #### 2 4323-8, 79556-9, 7-1, 3084-1 ####[facility] LABCLIA [id number] [place] [address] [place] Calcium [Mass/Vol] 9.2 mg/dL Normal 8.5-10.2 [facility] Comment on above: Order Comment: Speci men Type: BLOOD SPECIMENOrdering Facility: [facility] Address: [address] [place] [address] Performed By: #### 2 4323-8, 77817-8, 2776-, 3084-1 ####[facility] LABCLIA [id number] [place] [address] [place] Chloride [Moles/Vol] 108 mmol/L High 97-105 [facility] Comment on above: Order Comment: Speci men Type: BLOOD SPECIMENOrdering Facility: [facility] Address: [address] [place] [address] Performed By: #### 2 4323-8, 73526-5, 2776-, 308-1 ####[facility] LABIA [id number] [place] [address] [place] CO2 [Moles/Vol] 23 mmol/L Normal 22-30 [facility] Comment on above: Order Comment: Speci men Type: BLOOD SPECIMENOrdering Facility: [facility] Address: [address] [place] [address] Performed By: #### 2 4323-8, 93464-8, 2776-09, 3084-1 ####[facility] LABIA [id number] [place] [address] [place] Creatinine [Mass/Vol] 0.96 mg/dL Normal 0.58-0.96 [facility] Comment on above: Order Comment: Speci men Type: BLOOD SPECIMENOrdering Facility: [facility] Address: [address] [place] [address] Performed By: #### 2 4323-8, 04727-5, 2776-1, 3084-1 ####[facility] LABCLIA [id number] [address] [id number] [address] [place] Creatinine and Glomerular filtration rate.predicted panel (S/P/Bld) 64 mL/min/1.73m??? Normal >=60 [facility] Comment on above: Order Comment: Elvia escobar Type: BLOOD SPECIMENOrdering Facility: [facility] Address: [address] [place], [place] [address] Result Comment: Berenice mated Glomerular Filtration Rate [...] actual GFR. Performed By: #### 2 4323-8, 95098-4, 2776-, 3083- ####[facility] LABCLIA [id number] [place] [address] [place] Glucose [Mass/Vol] 106 mg/dL High 74-99 [facility] Comment on above: Order Comment: Elvia escobar Type: BLOOD SPECIMENOrdering Facility: [facility] Address: [address] [place] [address] Result Comment: The [place] Diabetes [employer] (ADA) provides guidance for cutoff [...] Standards of Medical Care in Diabetes 2016, [place] [employer]. Diabetes Care. 2016.39(Suppl 1). Performed By: #### 2 4323-8, 97158-4, 7-, 3083-1 ####[facility] LABCLIA [id number] [place] [address] [place] Potassium [Moles/Vol] 4.0 mmol/L Normal 3.7-5.1 [facility] Comment on above: Order Comment: Speci men Type: BLOOD SPECIMENOrdering Facility: [facility] Address: [address] [place] [address] Performed By: #### 2 4323-8, 49601-8, 7-1, 3084-1 ####[facility] LABCLIA [id number] [place] [address] [place] Protein [Mass/Vol] 5.7 g/dL Low 6.3-8.0 [facility] Comment on above: Order Comment: Speci men Type: BLOOD SPECIMENOrdering Facility: [facility] Address: [address] [place] [address] Performed By: #### 2 4323-8, 82011-2, 2776-, 308-1 ####[facility] LABIA [id number] [place] [address] [place] Sodium [Moles/Vol] 141 mmol/L Normal 136-144 [facility] Comment on above: Order Comment: Speci men Type: BLOOD SPECIMENOrdering Facility: [facility] Address: [address] [place] [address] Performed By: #### 2 4323-8, 28105-4, 2776-1, 308-1 ####[facility] LABCLIA [id number] [place] [address] [place] Urea nitrogen [Mass/Vol] 13 mg/dL Normal 7-21 [facility] Comment on above: Order Comment: Speci men Type: BLOOD SPECIMENOrdering Facility: [facility] Address: [address] [place] [address] Performed By: #### 2 4323-8, 72916-5, 7-1, 3084-1 ####[facility] LABCLIA [id number] [address] [id number] Magnesium SerPl-mCncon 05-31 Magnesium [Mass/Vol] 2.1 mg/dL Normal 1.7-2.3 [facility] Comment on above: Order Comment: Elvia escobar Type: BLOOD SPECIMENOrdering Facility: [facility] Address: [address] [place] [id number] Performed By: #### 2 4323-8, 38834-4, 2777-1, 3084-1 ####[facility] LABCLIA [id number] [address] OF [facility] PT EDon 05-31-2023 PT ED Normal [facility] PT panel Coag (PPP)on 2022 INR Coag (PPP) [Relative time] 1.1 {INR} Normal 0.9-1.3 [facility] Comment on above: Order Comment: Specmaria eugenia escobar Type: BLOOD SPECIMENOrdering Facility: [facility] Address: [address] [place] [address] Result Comment: Rajwinder min K Antagonist (VKA) Therapeutic Range: INR 2 to 3 (Target INR of 2.5)Note: For patients treated with VKA drugs, such as warfarin, the [place] [employer] 2012 Guideline recommends [...] al. Chest 2012, 141:7S-47SMargo RA, et al. [facility] 2017, 70: 252-289 Performed By: #### 3 4528-0 ####[facility] LABCLIA [id number] [address] [place] PT Coag (PPP) [Time] 11.3 s Normal 9.7-13.0 [facility] Comment on above: Order Comment: Speci men Type: BLOOD SPECIMENOrdering Facility: [facility] Address: [address] [place] [address] Performed By: #### 3 4528-0 ####[facility] LABCLIA [id number] [place] [address] [place] Phosphate SerPl-mCncon 05-31 Phosphate [Mass/Vol] 4.0 mg/dL Normal 2.7-4.8 [facility] Comment on above: Order Comment: Speci men Type: BLOOD SPECIMENOrdering Facility: [facility] Address: [address] [place] [address] Performed By: #### 2 4323-8, 45571-7, 2777-1, 3084-1 ####[facility] LABCLIA [id number] [place] [address] [place] SOCIAL WORKon 05-31-2023 SOCIAL WORK Normal [facility] TYPE + SCREENon 05-31-2023 ABO O Normal [facility] Comment on above: Order Comment: Speci men Type: BLOOD SPECIMENOrdering Facility: [facility] Address: [address] [place] [address] Performed By: #### T SCR ####[facility] BLOOD BANKCLIA [id number] [place] [address] [place] HISTORICAL AB SCR STATUS Negative Normal [facility] Comment on above: Order Comment: Speci men Type: BLOOD SPECIMENOrdering Facility: [facility] Address: [address] [place] [address] Performed By: #### T SCR ####[facility] BLOOD BANKCLIA [id number] [place] [address] [place] Rh Nom (Bld) Positive Normal [facility] Comment on above: Order Comment: Speci men Type: BLOOD SPECIMENOrdering Facility: [facility] Address: [address] Performed By: #### T SCR ####[facility] BLOOD BANKCLIA [id number] [address] TYPE AND SCREEN EXPIRATION 06/03/2023 23:59 Normal [facility] Comment on above: Order Comment: Speci men Type: BLOOD SPECIMENOrdering Facility: [facility] Address: [address] [place] [address] Performed By: #### T SCR ####[facility] BLOOD BANKIA [id number] [address] Urate SerPl-ncon Urate [Mass/Vol] 2.4 mg/dL Low 2.5-6.6 [facility] Comment on above: Order Comment: Speci men Type: BLOOD SPECIMENOrdering Facility: [facility] Address: [address] [place] [address] Performed By: #### 2 4323-8, 90940-6, 2777-1, 3084-1 ####[facility] LABCLIA [id number] [address] Vancomycin Mckinney SerPl-mCncon 05-31-2023 Vancomycin random [Mass/Vol] 19.2 ug/mL Normal 10.0-20.0 [facility] Comment on above: Order Comment: Speci men Type: BLOOD SPECIMENOrdering Facility: [facility] Address: [address] [place] [address] Result Comment: Refe rence ranges and high/low indicator flags are provided as general guidelines only. The treating physician must determine appropriate target levels/dosing based on the specific clinical situation. Performed By: #### 4 091-5 ####[facility] LABCLIA [id number] [address] [place] XR CHEST 1V PORT POST PICC - NBon 05-31-2023 XR CHEST 1V PORT POST PICC -NB Normal [facility] CBC W Auto Differential pane l (Bld)on 05-30-2023 Anisocytosis Ql (Bld) Present Normal [facility] Comment on above: Order Comment: Speci men Type: BLOOD SPECIMENOrdering Facility: [facility] Address: [address] [place] [address] Performed By: #### 5 7021-8 ####[facility] LABCLIA [id number] [place] [address] [place] Basophils (Bld) [#/Vol] 0.00 10*3/uL Normal <0.11 [facility] Comment on above: Order Comment: Speci men Type: BLOOD SPECIMENOrdering Facility: [facility] Address: [address] [place] [address] Performed By: #### 5 7021-8 ####[facility] LABCLIA [id number] [place] [address] [place] Basophils/100 WBC (Bld) 0.0 % Normal [facility] Comment on above: Order Comment: Speci men Type: BLOOD SPECIMENOrdering Facility: [facility] Address: [address] [place] [address] Performed By: #### 5 7021-8 ####[facility] LABCLIA [id number] [place] [address] [place] BLAST% 2.3 % High <=0.0 [facility] Comment on above: Order Comment: Speci men Type: BLOOD SPECIMENOrdering Facility: [facility] Address: [address] [place] [address] Performed By: #### 5 7021-8 ####[facility] LABCLIA [id number] [place] [address] [place] Differential cell count method Nom (Bld) Manual Normal [facility] Comment on above: Order Comment: Speci men Type: BLOOD SPECIMENOrdering Facility: [facility] Address: [address] Performed By: #### 5 7021-8 ####[facility] LABCLIA [id number] [place] [address] [place] [facility] [place] Eosinophils (Bld) [#/Vol] 0.01 10*3/uL Normal <0.46 [facility] Comment on above: Order Comment: Speci men Type: BLOOD SPECIMENOrdering Facility: [facility] Address: [address] [place] [address] Performed By: #### 5 7021-8 ####[facility] LABCLIA [id number] [place] [address] [place] Eosinophils/100 WBC (Bld) 0.6 % Normal [facility] Comment on above: Order Comment: Speci men Type: BLOOD SPECIMENOrdering Facility: [facility] Address: [address] [place], [place] [address] Performed By: #### 5 7021-8 ####[facility] LABCLIA [id number] [place] [address] [place] Erythrocyte distribution width (RBC) [Ratio] 17.8 % High 11.5-15.0 [facility] Comment on above: Order Comment: Speci men Type: BLOOD SPECIMENOrdering Facility: [facility] Address: [address] Performed By: #### 5 7021-8 ####[facility] LABCLIA [id number] [place] [address] [place] Hematocrit (Bld) [Volume fraction] 20.9 % Low 36.0-46.0 [facility] Comment on above: Order Comment: Speci men Type: BLOOD SPECIMENOrdering Facility: [facility] Address: [address] [place], [place] [address] Performed By: #### 5 7021-8 ####[facility] LABCLIA [id number] [place] [address] [place] Hemoglobin (Bld) [Mass/Vol] 7.1 g/dL Low 11.5-15.5 [facility] Comment on above: Order Comment: Speci men Type: BLOOD SPECIMENOrdering Facility: [facility] Address: [address] [place] [address] Performed By: #### 5 7021-8 ####[facility] LABCLIA [id number] [place] [address] [place] Lymphocytes (Bld) [#/Vol] 1.29 10*3/uL Normal 1.00-4.00 [facility] Comment on above: Order Comment: Speci men Type: BLOOD SPECIMENOrdering Facility: [facility] Address: [address] [place] [address] Performed By: #### 5 7021-8 ####[facility] LABCLIA [id number] [place] [address] [place] Lymphocytes/100 WBC (Bld) 77.2 % Normal [facility] Comment on above: Order Comment: Speci men Type: BLOOD SPECIMENOrdering Facility: [facility] Address: [address] [place] [address] Performed By: #### 5 7021-8 ####[facility] LABCLIA [id number] [place] [address] [place] MCH (RBC) [Entitic mass] 33.5 pg Normal 26.0-34.0 [facility] Comment on above: Order Comment: Speci men Type: BLOOD SPECIMENOrdering Facility: [facility] Address: [address] [place], [place] [address] Performed By: #### 5 7021-8 ####[facility] LABCLIA [id number] [place] [address] [place] MCHC (RBC) [Mass/Vol] 34.0 g/dL Normal 30.5-36.0 [facility] Comment on above: Order Comment: Speci men Type: BLOOD SPECIMENOrdering Facility: [facility] Address: [address] Performed By: #### 5 7021-8 ####[facility] LABCLIA [id number] [place] [address] [place] MCV (RBC) [Entitic vol] 98.6 fL Normal 80.0-100.0 [facility] Comment on above: Order Comment: Speci men Type: BLOOD SPECIMENOrdering Facility: [facility] Address: [address] Performed By: #### 5 7021-8 ####[facility] LABCLIA [id number] [address] [place] Metamyelocytes/10 0 WBC (Bld) 4.0 % Normal [facility] Comment on above: Order Comment: Speci men Type: BLOOD SPECIMENOrdering Facility: [facility] Address: [address] [place], [place] [address] Performed By: #### 5 7021-8 ####[facility] LABIA [id number] [place] [address] [place] Monocytes (Bld) [#/Vol] 0.02 10*3/uL Normal <0.87 [facility] Comment on above: Order Comment: Speci men Type: BLOOD SPECIMENOrdering Facility: [facility] Address: [address] Performed By: #### 5 7021-8 ####[facility] LABCLIA [id number] [address] [place] Monocytes/100 WBC (Bld) 1.1 % Normal [facility] Comment on above: Order Comment: Speci men Type: BLOOD SPECIMENOrdering Facility: [facility] Address: [address] Performed By: #### 5 7021-8 ####[facility] LABCLIA [id number] [place] [address] [place] Neutrophils (Bld) [#/Vol] 0.25 10*3/uL Low 1.45-7.50 [facility] Comment on above: Order Comment: Speci men Type: BLOOD SPECIMENOrdering Facility: [facility] Address: [address] [place] [address] Performed By: #### 5 7021-8 ####[facility] LABCLIA [id number] [place] [address] [place] Neutrophils/100 WBC (Bld) 14.8 % Normal [facility] Comment on above: Order Comment: Speci men Type: BLOOD SPECIMENOrdering Facility: [facility] Address: [address] [place] [address] Performed By: #### 5 7021-8 ####[facility] LABCLIA [id number] [place] [address] [place] Nucleated RBC (Bld) [#/Vol] 0.03 10*3/uL High <0.01 [facility] Comment on above: Order Comment: Speci men Type: BLOOD SPECIMENOrdering Facility: [facility] Address: [address] [place] [address] Performed By: #### 5 7021-8 ####[facility] LABCLIA [id number] [place] [address] [place] Nucleated RBC/100 WBC (Bld) [Ratio] 1.7 /100 WBC Normal [facility] Comment on above: Order Comment: Speci men Type: BLOOD SPECIMENOrdering Facility: [facility] Address: [address] [place] [address] Performed By: #### 5 7021-8 ####[facility] LABCLIA [id number] [place] [address] [place] Ovalocytes LM Ql (Bld) Few Normal [facility] Comment on above: Order Comment: Speci men Type: BLOOD SPECIMENOrdering Facility: [facility] Address: [address] [place] [address] Performed By: #### 5 7021-8 ####[facility] LABIA [id number] [place] [address] [place] Platelet mean volume (Bld) [Entitic vol] Normal [facility] Comment on above: Order Comment: Speci men Type: BLOOD SPECIMENOrdering Facility: [facility] Address: [address] [place] [address] Result Comment: Unab le to Report. Performed By: #### 5 7021-8 ####[facility] LABIA [id number] [place] [address] [place] Platelets (Bld) [#/Vol] 16 10*3/uL Low 150-400 [facility] Comment on above: Order Comment: Speci men Type: BLOOD SPECIMENOrdering Facility: [facility] Address: [address] [place] [address] Result Comment: No c lot detected.Results checked and verified. Performed By: #### 5 7021-8 ####[facility] LABCLIA [id number] [place] [address] [place] Platelets Estimate (Bld) [#/Vol] Decreased Normal [facility] Comment on above: Order Comment: Speci men Type: BLOOD SPECIMENOrdering Facility: [facility] Address: [address] Performed By: #### 5 7021-8 ####[facility] LABIA [id number] [place] [address] [place] Polychromasia LM Ql (Bld) Slight Normal [facility] Comment on above: Order Comment: Speci men Type: BLOOD SPECIMENOrdering Facility: [facility] Address: [address] Performed By: #### 5 7021-8 ####[facility] LABCLIA [id number] [place] [address] [place] RBC (Bld) [#/Vol] 2.12 10*6/uL Low 3.90-5.20 [facility] Comment on above: Order Comment: Speci men Type: BLOOD SPECIMENOrdering Facility: [facility] Address: [address] [place] [address] Performed By: #### 5 7021-8 ####[facility] LABCLIA [id number] [place] [address] [place] RBC FRAGMENTS Few Abnormal None Seen [facility] Comment on above: Order Comment: Speci men Type: BLOOD SPECIMENOrdering Facility: [facility] Address: [address] [place] [address] Performed By: #### 5 7021-8 ####[facility] LABIA [id number] [address] STATES OF [facility] RED CELL MORPH Reviewed: see result s of individual morphologies Normal [facility] Comment on above: Order Comment: Speci men Type: BLOOD SPECIMENOrdering Facility: [facility] Address: [address] [place], [place] [address] Performed By: #### 5 7021-8 ####[facility] LABIA [id number] [place] [address] [place] WBC (Bld) [#/Vol] 1.67 10*3/uL Low 3.70-11.00 [facility] Comment on above: Order Comment: Speci men Type: BLOOD SPECIMENOrdering Facility: [facility] Address: [address] [place], [place] [address] Result Comment: No c lot detected. Performed By: #### 5 7021-8 ####[facility] LABCLIA [id number] [address] [id number] [address] [place] WBC Left Shift Ql (Bld) Present Normal [facility] Comment on above: Order Comment: Speci men Type: BLOOD SPECIMENOrdering Facility: [facility] Address: [address] [place] [address] Performed By: #### 5 7021-8 ####[facility] LABCLIA [id number] [place] [address] [place] CNCOon 05-30-2023 CNCO Letter Text Normal [facility] CONSULT PROGon 05-30-2023 CONSULT PROG Normal [facility] Comprehensive metabolic 2000 panelon 05-30-2023 Albumin [Mass/Vol] 3.5 g/dL Low 3.9-4.9 [facility] Comment on above: Order Comment: Speci men Type: BLOOD SPECIMENOrdering Facility: [facility] Address: [address] [place] [address] Performed By: #### 1 9123-9, 2777-1, 308-, 85903-8 ####[facility] LABCLIA [id number] [place] [address] [place] ALP [Catalytic activity/Vol] 54 U/L Normal 34-123 [facility] Comment on above: Order Comment: Speci men Type: BLOOD SPECIMENOrdering Facility: [facility] Address: [address] [place] [address] Performed By: #### 1 9123-9, 2777-1, 308-, 31601-4 ####[facility] LABCLIA [id number] [place] [address] [place] ALT [Catalytic activity/Vol] 18 U/L Normal 7-38 [facility] Comment on above: Order Comment: Speci men Type: BLOOD SPECIMENOrdering Facility: [facility] Address: [address] [place] [address] Performed By: #### 1 9123-9, 2777-1, 3084-1, 11425-2 ####[facility] LABCLIA [id number] [place] [address] [place] Anion gap [Moles/Vol] 9 mmol/L Normal 9-18 [facility] Comment on above: Order Comment: Speci men Type: BLOOD SPECIMENOrdering Facility: [facility] Address: [address] [place] [address] Performed By: #### 1 9123-9, 2777-1, 308-, 49587-8 ####[facility] LABCLIA [id number] [place] [address] [place] AST [Catalytic activity/Vol] 17 U/L Normal 13-35 [facility] Comment on above: Order Comment: Speci men Type: BLOOD SPECIMENOrdering Facility: [facility] Address: [address] [place] [address] Performed By: #### 1 9123-9, 2777-, 3083-, 91587-0 ####[facility] LABCLIA [id number] [place] [address] [place] Bilirubin [Mass/Vol] 0.4 mg/dL Normal 0.2-1.3 [facility] Comment on above: Order Comment: Speci men Type: BLOOD SPECIMENOrdering Facility: [facility] Address: [address] [place] [address] Performed By: #### 1 9123-9, 2777-, 30812-02, 94915-4 ####[facility] LABCLIA [id number] [place] [address] [place] Calcium [Mass/Vol] 8.7 mg/dL Normal 8.5-10.2 [facility] Comment on above: Order Comment: Speci men Type: BLOOD SPECIMENOrdering Facility: [facility] Address: [address] [place] [address] Performed By: #### 1 9123-9, 2777-1, 308-, 83510-9 ####[facility] LABCLIA [id number] [place] [address] [place] Chloride [Moles/Vol] 107 mmol/L High 97-105 [facility] Comment on above: Order Comment: Speci men Type: BLOOD SPECIMENOrdering Facility: [facility] Address: [address] [place] [address] Performed By: #### 1 9123-9, 2777-1, 3084-, 23224-9 ####[facility] LABIA [id number] [place] [address] [place] CO2 [Moles/Vol] 25 mmol/L Normal 22-30 [facility] Comment on above: Order Comment: Speci men Type: BLOOD SPECIMENOrdering Facility: [facility] Address: [address] [place] [address] Performed By: #### 1 9123-9, 2777-1, 3084-, 20247-6 ####[facility] LABIA [id number] [place] [address] [place] Creatinine [Mass/Vol] 0.93 mg/dL Normal 0.58-0.96 [facility] Comment on above: Order Comment: Speci men Type: BLOOD SPECIMENOrdering Facility: [facility] Address: [address] [place] [address] Performed By: #### 1 9123-9, 2777-1, 3084-, 40204-0 ####[facility] LABIA [id number] [place] [address] [place] Creatinine and Glomerular filtration rate.predicted panel (S/P/Bld) 67 mL/min/1.73m??? Normal >=60 [facility] Comment on above: Order Comment: Speci men Type: BLOOD SPECIMENOrdering Facility: [facility] Address: [address] [place] [address] Result Comment: Berenice mated Glomerular Filtration Rate [...] Performed By: #### 1 9123-9, 277-, 3083-09, 47735-2 ####[facility] LABCLIA [id number] [place] [address] [place] Glucose [Mass/Vol] 119 mg/dL High 74-99 [facility] Comment on above: Order Comment: Elvia escobar Type: BLOOD SPECIMENOrdering Facility: [facility] Address: [address] [address] Result Comment: The [place] [employer] (ADA) provides guidance for cutoff [...] Standards of Medical Care in Diabetes 2016, [place] [employer]. Diabetes Care. 2016.39(Suppl 1). Performed By: #### 1 9123-9, 2776-09, 3083-09, 89656-9 ####[facility] LABCLIA [id number] [place] [id number] [place] Potassium [Moles/Vol] 3.9 mmol/L Normal 3.7-5.1 [facility] Comment on above: Order Comment: Elvia escobar Type: BLOOD SPECIMENOrdering Facility: [facility] Address: [address] [id number] Performed By: #### 1 9123-9, 277-, 3083-09, 85192-0 ####[facility] LABCLIA [id number] [address] [address] [place] Protein [Mass/Vol] 5.7 g/dL Low 6.3-8.0 [facility] Comment on above: Order Comment: Speci men Type: BLOOD SPECIMENOrdering Facility: [facility] Address: [address] [place] [address] Performed By: #### 1 9123-9, 2777-1, 308-, 62577-2 ####[facility] LABIA [id number] [place] [address] [place] Sodium [Moles/Vol] 141 mmol/L Normal 136-144 [facility] Comment on above: Order Comment: Speci men Type: BLOOD SPECIMENOrdering Facility: [facility] Address: [address] [place] [address] Performed By: #### 1 9123-9, 2777-1, 308-, 94526-8 ####[facility] LABIA [id number] [place] [address] [place] Urea nitrogen [Mass/Vol] 15 mg/dL Normal 7-21 [facility] Comment on above: Order Comment: Speci men Type: BLOOD SPECIMENOrdering Facility: [facility] Address: [address] [place], [place] [address] Performed By: #### 1 9123-9, 2777-1, 30812-02, 40771-5 ####[facility] LABIA [id number] [address] [address] [place] MEDICAL EMERon 05-30-2023 MEDICAL RUFUS Normal [facility] Magnesium SerPl-mCncon 05-30 Magnesium [Mass/Vol] 2.1 mg/dL Normal 1.7-2.3 [facility] Comment on above: Order Comment: Speci men Type: BLOOD SPECIMENOrdering Facility: [facility] Address: [address] [place] [address] Performed By: #### 1 9123-9, 2777-1, 3084-1, 55352-1 ####[facility] LABCLIA [id number] [place] [address] [place] NUTRITIONon 05-30-2023 NUTRITION Normal [facility] PT EDon 05-30-2023 PT ED Normal [facility] Phosphate SerPl-mCncon 05-30 Phosphate [Mass/Vol] 4.0 mg/dL Normal 2.7-4.8 [facility] Comment on above: Order Comment: Speci men Type: BLOOD SPECIMENOrdering Facility: [facility] Address: [address] [place], [place] [address] Performed By: #### 1 9123-9, 2777-1, 308-, 16450-3 ####[facility] LABCLIA [id number] [address] [place] SOCIAL WORKon 05-30-2023 SOCIAL WORK Normal [facility] SOCIAL WORK Normal [facility] Urate SerPl-[facility] Urate [Mass/Vol] 2.2 mg/dL Low 2.5-6.6 [facility] Comment on above: Order Comment: Speci men Type: BLOOD SPECIMENOrdering Facility: [facility] Address: [address] [place], [place] [address] Performed By: #### 1 9123-9, 2777-1, 308-1, 17962-3 ####[facility] LABCLIA [id number] [place] [address] [place] BMT REC INIT W/Uon 3 ALLOGEN RESULTS TO FOLLOW See Allogen report to follow Normal [facility] Comment on above: Order Comment: Speci men Type: BLOOD SPECIMENOrdering Facility: [facility] Address: [address] [place], [place] [address] Performed By: #### B MTRIW ####[facility] LABCLIA [id number] [place] [address] [place] BRIEF OP NOTon 05-29-2023 BRIEF OP NOT Normal [facility] CASE MGT INIT ASSESon 2022 CASE MGT INIT ASSES Normal [facility] CBC W Auto Differential pane l (Bld)on 05-29-2023 Anisocytosis Ql (Bld) Present Normal [facility] Comment on above: Order Comment: Speci men Type: BLOOD SPECIMENOrdering Facility: [facility] Address: [address] [place] [address] Performed By: #### 5 7021-8 ####[facility] LABIA [id number] [place] [address] [place] Basophils (Bld) [#/Vol] 0.00 10*3/uL Normal <0.11 [facility] Comment on above: Order Comment: Speci men Type: BLOOD SPECIMENOrdering Facility: [facility] Address: [address] [place] [address] Performed By: #### 5 7021-8 ####[facility] LABIA [id number] [place] [address] [place] Basophils/100 WBC (Bld) 0.0 % Normal [facility] Comment on above: Order Comment: Speci men Type: BLOOD SPECIMENOrdering Facility: [facility] Address: [address] Performed By: #### 5 7021-8 ####[facility] LABCLIA [id number] [address] [place] BLAST% 4.9 % High <=0.0 [facility] Comment on above: Order Comment: Speci men Type: BLOOD SPECIMENOrdering Facility: [facility] Address: [address] Performed By: #### 5 7021-8 ####[facility] LABCLIA [id number] [place] [address] [place] Dacrocytes LM Ql (Bld) Few Normal [facility] Comment on above: Order Comment: Speci men Type: BLOOD SPECIMENOrdering Facility: [facility] Address: [address] [place] [address] Performed By: #### 5 7021-8 ####[facility] LABCLIA [id number] [place] [address] [place] Differential cell count method Nom (Bld) Manual Normal [facility] Comment on above: Order Comment: Speci men Type: BLOOD SPECIMENOrdering Facility: [facility] Address: [address] [place] [address] Performed By: #### 5 7021-8 ####[facility] LABCLIA [id number] [place] [address] [place] Eosinophils (Bld) [#/Vol] 0.03 10*3/uL Normal <0.46 [facility] Comment on above: Order Comment: Speci men Type: BLOOD SPECIMENOrdering Facility: [facility] Address: [address] [place], [place] [address] Performed By: #### 5 7021-8 ####[facility] LABCLIA [id number] [address] [place] Eosinophils/100 WBC (Bld) 2.2 % Normal [facility] Comment on above: Order Comment: Speci men Type: BLOOD SPECIMENOrdering Facility: [facility] Address: [address] [place], [place] [address] Performed By: #### 5 7021-8 ####[facility] LABCLIA [id number] [place] [address] [place] Erythrocyte distribution width (RBC) [Ratio] 18.3 % High 11.5-15.0 [facility] Comment on above: Order Comment: Speci men Type: BLOOD SPECIMENOrdering Facility: [facility] Address: [address] [place], [place] [address] Performed By: #### 5 7021-8 ####[facility] LABCLIA [id number] [place] [address] [place] Hematocrit (Bld) [Volume fraction] 18.6 % Low 36.0-46.0 [facility] Comment on above: Order Comment: Speci men Type: BLOOD SPECIMENOrdering Facility: [facility] Address: [address] [place], [place] [address] Performed By: #### 5 7021-8 ####[facility] LABIA [id number] [place] [address] [place] Hemoglobin (Bld) [Mass/Vol] 6.6 g/dL Low 11.5-15.5 [facility] Comment on above: Order Comment: Speci men Type: BLOOD SPECIMENOrdering Facility: [facility] Address: [address] [place], [place] [address] Performed By: #### 5 7021-8 ####[facility] LABIA [id number] [place] [address] [place] Lymphocytes (Bld) [#/Vol] 1.08 10*3/uL Normal 1.00-4.00 [facility] Comment on above: Order Comment: Speci men Type: BLOOD SPECIMENOrdering Facility: [facility] Address: [address] [place], [place] [address] Performed By: #### 5 7021-8 ####[facility] LABCLIA [id number] [place] [address] [place] Lymphocytes/100 WBC (Bld) 75.2 % Normal [facility] Comment on above: Order Comment: Speci men Type: BLOOD SPECIMENOrdering Facility: [facility] Address: [address] [place], [place] [address] Performed By: #### 5 7021-8 ####[facility] LABCLIA [id number] [address] STATES [facility] MCH (RBC) [Entitic mass] 35.1 pg High 26.0-34.0 [facility] Comment on above: Order Comment: Speci men Type: BLOOD SPECIMENOrdering Facility: [facility] Address: [address] [place] [address] Performed By: #### 5 7021-8 ####[facility] LABCLIA [id number] [address] MCHC (RBC) [Mass/Vol] 35.5 g/dL Normal 30.5-36.0 [facility] Comment on above: Order Comment: Speci men Type: BLOOD SPECIMENOrdering Facility: [facility] Address: [address] [place] [address] Performed By: #### 5 7021-8 ####[facility] LABIA [id number] [address] OF [facility] MCV (RBC) [Entitic vol] 98.9 fL Normal 80.0-100.0 [facility] Comment on above: Order Comment: Speci men Type: BLOOD SPECIMENOrdering Facility: [facility] Address: [address] [place] [address] Performed By: #### 5 7021-8 ####[facility] LABIA [id number] [place] [address] [place] Monocytes (Bld) [#/Vol] 0.01 10*3/uL Normal <0.87 [facility] Comment on above: Order Comment: Speci men Type: BLOOD SPECIMENOrdering Facility: [facility] Address: [address] [place], [place] [address] Performed By: #### 5 7021-8 ####[facility] LABCLIA [id number] [address] [place] Monocytes/100 WBC (Bld) 0.4 % Normal [facility] Comment on above: Order Comment: Speci men Type: BLOOD SPECIMENOrdering Facility: [facility] Address: [address] Performed By: #### 5 7021-8 ####[facility] LABCLIA [id number] [address] [place] MYELO% 0.4 % Normal [facility] Comment on above: Order Comment: Speci men Type: BLOOD SPECIMENOrdering Facility: [facility] Address: [address] Performed By: #### 5 7021-8 ####[facility] LABCLIA [id number] [place] [address] [place] Neutrophils (Bld) [#/Vol] 0.24 10*3/uL Low 1.45-7.50 [facility] Comment on above: Order Comment: Speci men Type: BLOOD SPECIMENOrdering Facility: [facility] Address: [address] Performed By: #### 5 7021-8 ####[facility] LABCLIA [id number] [place] [address] [place] Neutrophils/100 WBC (Bld) 16.9 % Normal [facility] Comment on above: Order Comment: Speci men Type: BLOOD SPECIMENOrdering Facility: [facility] Address: [address] Performed By: #### 5 7021-8 ####[facility] LABCLIA [id number] [place] [address] [place] Nucleated RBC (Bld) [#/Vol] 0.02 10*3/uL High <0.01 [facility] Comment on above: Order Comment: Speci men Type: BLOOD SPECIMENOrdering Facility: [facility] Address: [address] Performed By: #### 5 7021-8 ####[facility] LABCLIA [id number] [place] [address] [place] Nucleated RBC/100 WBC (Bld) [Ratio] 1.3 /100 WBC Normal [facility] Comment on above: Order Comment: Speci men Type: BLOOD SPECIMENOrdering Facility: [facility] Address: [address] [place] [address] Performed By: #### 5 7021-8 ####[facility] LABCLIA [id number] [place] [address] [place] Ovalocytes LM Ql (Bld) Few Normal [facility] Comment on above: Order Comment: Speci men Type: BLOOD SPECIMENOrdering Facility: [facility] Address: [address] [place] [address] Performed By: #### 5 7021-8 ####[facility] LABIA [id number] [place] [address] [place] Platelet mean volume (Bld) [Entitic vol] Normal [facility] Comment on above: Order Comment: Speci men Type: BLOOD SPECIMENOrdering Facility: [facility] Address: [address] [place] [address] Result Comment: Unab le to Report. Performed By: #### 5 7021-8 ####[facility] LABIA [id number] [place] [address] [place] Platelets (Bld) [#/Vol] 14 10*3/uL Low 150-400 [facility] Comment on above: Order Comment: Speci men Type: BLOOD SPECIMENOrdering Facility: [facility] Address: [address] [place] [address] Result Comment: Resu lts checked and verified.No clot detected. Performed By: #### 5 7021-8 ####[facility] LABCLIA [id number] [place] [address] [place] Platelets Estimate (Bld) [#/Vol] Decreased Normal [facility] Comment on above: Order Comment: Speci men Type: BLOOD SPECIMENOrdering Facility: [facility] Address: [address] [place] [address] Performed By: #### 5 7021-8 ####[facility] LABCLIA [id number] [place] [address] [place] Polychromasia LM Ql (Bld) Slight Normal [facility] Comment on above: Order Comment: Speci men Type: BLOOD SPECIMENOrdering Facility: [facility] Address: [address] Performed By: #### 5 7021-8 ####[facility] LABIA [id number] [place] [address] [place] RBC (Bld) [#/Vol] 1.88 10*6/uL Low 3.90-5.20 [facility] Comment on above: Order Comment: Speci men Type: BLOOD SPECIMENOrdering Facility: [facility] Address: [address] Performed By: #### 5 7021-8 ####[facility] LABCLIA [id number] [place] [address] [place] RBC FRAGMENTS Few Abnormal None Seen [facility] Comment on above: Order Comment: Speci men Type: BLOOD SPECIMENOrdering Facility: [facility] Address: [address] [place] [address] Performed By: #### 5 7021-8 ####[facility] LABCLIA [id number] [place] [address] [place] RED CELL MORPH Reviewed: see result s of individual morphologies Normal [facility] Comment on above: Order Comment: Speci men Type: BLOOD SPECIMENOrdering Facility: [facility] Address: [address] Performed By: #### 5 7021-8 ####[facility] LABCLIA [id number] [place] [address] [place] WBC (Bld) [#/Vol] 1.43 10*3/uL Low 3.70-11.00 [facility] Comment on above: Order Comment: Speci men Type: BLOOD SPECIMENOrdering Facility: [facility] Address: [address] [place] [address] Result Comment: No c lot detected. Performed By: #### 5 7021-8 ####[facility] LABCLIA [id number] [address] [place] WBC Left Shift Ql (Bld) Present Normal [facility] Comment on above: Order Comment: Speci men Type: BLOOD SPECIMENOrdering Facility: [facility] Address: [address] [place] [address] Performed By: #### 5 7021-8 ####[facility] LABIA [id number] [address] CMV IgG Qnon 05-29-2023 CMV IGG QUAL Negative Normal Negative [facility] Comment on above: Order Comment: Rochellei luz Type: BLOOD SPECIMENOrdering Facility: [facility] Address: [address] [place] [address] Result Comment: No s erological evidence of past exposure to Cytomegalovirus. Cannot exclude recent infection if the specimen collected within 4-6 weeks after infection. Performed By: #### 7 852-7 ####[facility] LABCLIA [id number] [address] [place] CMV IgG SerPl-aCncon 023 CMV IgG Qn 0.24 U/mL Normal [facility] Comment on above: Order Comment: Speci luz Type: BLOOD SPECIMENOrdering Facility: [facility] Address: [address] [place] [address] Result Comment: The magnitude of the measured result is not indicative of the amount of antibody present.U/mL values are interpreted as follows:Negative <0.6Equivocal 0.6 to <0.70Positive >=0.70 Performed By: #### 7 852-7 ####[facility] LABCLIA [id number] [place] [address] [place] CONSULTon 05-29-2023 CONSULT Normal [facility] Comprehensive metabolic 2000 panelon 05-29-2023 Albumin [Mass/Vol] 3.5 g/dL Low 3.9-4.9 [facility] Comment on above: Order Comment: Speci men Type: BLOOD SPECIMENOrdering Facility: [facility] Address: [address] [place] [address] Performed By: #### 2 4323-8 ####[facility] LABCLIA [id number] [place] [address] [place] ALP [Catalytic activity/Vol] 50 U/L Normal 34-123 [facility] Comment on above: Order Comment: Speci men Type: BLOOD SPECIMENOrdering Facility: [facility] Address: [address] [place] [address] Performed By: #### 2 4323-8 ####[facility] LABCLIA [id number] [place] [address] [place] ALT [Catalytic activity/Vol] 11 U/L Normal 7-38 [facility] Comment on above: Order Comment: Speci men Type: BLOOD SPECIMENOrdering Facility: [facility] Address: [address] Performed By: #### 2 4323-8 ####[facility] LABCLIA [id number] [place] [address] [place] Anion gap [Moles/Vol] 10 mmol/L Normal 9-18 [facility] Comment on above: Order Comment: Speci men Type: BLOOD SPECIMENOrdering Facility: [facility] Address: [address] [place] [address] Performed By: #### 2 4323-8 ####[facility] LABCLIA [id number] [place] [address] [place] AST [Catalytic activity/Vol] 12 U/L Low 13-35 [facility] Comment on above: Order Comment: Speci men Type: BLOOD SPECIMENOrdering Facility: [facility] Address: [address] [place] [address] Performed By: #### 2 4323-8 ####[facility] LABCLIA [id number] [place] [address] [place] Bilirubin [Mass/Vol] 0.4 mg/dL Normal 0.2-1.3 [facility] Comment on above: Order Comment: Speci men Type: BLOOD SPECIMENOrdering Facility: [facility] Address: [address] [place] [address] Performed By: #### 2 4323-8 ####[facility] LABCLIA [id number] [place] [address] [place] Calcium [Mass/Vol] 8.5 mg/dL Normal 8.5-10.2 [facility] Comment on above: Order Comment: Speci men Type: BLOOD SPECIMENOrdering Facility: [facility] Address: [address] [place] [address] Performed By: #### 2 4323-8 ####[facility] LABCLIA [id number] [place] [address] [place] Chloride [Moles/Vol] 107 mmol/L High 97-105 [facility] Comment on above: Order Comment: Speci men Type: BLOOD SPECIMENOrdering Facility: [facility] Address: [address] [place] [address] Performed By: #### 2 4323-8 ####[facility] LABCLIA [id number] [place] [address] [place] CO2 [Moles/Vol] 25 mmol/L Normal 22-30 [facility] Comment on above: Order Comment: Speci men Type: BLOOD SPECIMENOrdering Facility: [facility] Address: [address] [place] [place] [address] Performed By: #### 2 4323-8 ####[facility] LABIA [id number] [address] Creatinine [Mass/Vol] 0.92 mg/dL Normal 0.58-0.96 [facility] Comment on above: Order Comment: Rochellei men Type: BLOOD SPECIMENOrdering Facility: [facility] Address: [address] [place] [place] [address] Performed By: #### 2 4323-8 ####[facility] LABIA [id number] [address] Creatinine and Glomerular filtration rate.predicted panel (S/P/Bld) 68 mL/min/1.73m??? Normal >=60 [facility] Comment on above: Order Comment: Elvia men Type: BLOOD SPECIMENOrdering Facility: [facility] Address: [address] [place] [address] Result Comment: Berenice mated Glomerular Filtration Rate [...] actual GFR. Performed By: #### 2 4323-8 ####[facility] LABIA [id number] [address] [place] Glucose [Mass/Vol] 110 mg/dL High 74-99 [facility] Comment on above: Order Comment: Elvia men Type: BLOOD SPECIMENOrdering Facility: [facility] Address: [address] [place] [address] Result Comment: The [place] [employer] (ADA) provides guidance for cutoff [...] Standards of Medical Care in Diabetes 2016, [place] [employer]. Diabetes Care. 2016.39(Suppl 1). Performed By: #### 2 4323-8 ####[facility] LABCLIA [id number] [place] [address] [place] Potassium [Moles/Vol] 3.9 mmol/L Normal 3.7-5.1 [facility] Comment on above: Order Comment: Speci men Type: BLOOD SPECIMENOrdering Facility: [facility] Address: [address] [place] [address] Performed By: #### 2 4323-8 ####[facility] LABIA [id number] [place] [address] [place] Protein [Mass/Vol] 5.6 g/dL Low 6.3-8.0 [facility] Comment on above: Order Comment: Rochellei men Type: BLOOD SPECIMENOrdering Facility: [facility] Address: [address] [place] [address] Performed By: #### 2 4323-8 ####[facility] LABIA [id number] [place] [address] [place] Sodium [Moles/Vol] 142 mmol/L Normal 136-144 [facility] Comment on above: Order Comment: Speci men Type: BLOOD SPECIMENOrdering Facility: [facility] Address: [address] [place] [address] Performed By: #### 2 4323-8 ####[facility] LABCLIA [id number] [place] [address] [place] Urea nitrogen [Mass/Vol] 16 mg/dL Normal 7-21 [facility] Comment on above: Order Comment: Speci men Type: BLOOD SPECIMENOrdering Facility: [facility] Address: [address] [place] [address] Performed By: #### 2 4323-8 ####[facility] LABCLIA [id number] [place] [address] [place] IR CENTRAL LINE REMOVALon IR CENTRAL LINE REMOVAL Normal [facility] MEDICAL EMERon 05-29-2023 MEDICAL RUFUS Normal [facility] SOCIAL WORKon 05-29-2023 SOCIAL WORK Normal [facility] SURGICAL PATHOLOGYon 023 CASE REPORT Normal [facility] Comment on above: Order Comment: Speci men Type: TISSUE SPECIMENOrdering Facility: [facility] Address: [address] [place] [address] Result Comment: Surg ical Pathology Report Case: [id number] Provider: Brandy Catsro, Collected: 05/29/2023 03:21 PM SCHOOL PHOTOGRAPHER.CNPOrdering Location: [place] [address] Received: 05/29/2023 10:53 PMPathologist: Rosalia Gaytan MDSpecimen: HARDWARE Performed By: #### S ####[facility] LABCLIA [id number] [place] [address] [place] CLINICAL HISTORY infected port Normal [facility] Comment on above: Order Comment: Speci men Type: TISSUE SPECIMENOrdering Facility: [facility] Address: [address] [place] [address] Performed By: #### S ####[facility] LABCLIA [id number] [place] [address] [place] FINAL DIAGNOSIS Normal [facility] Comment on above: Order Comment: Speci men Type: TISSUE SPECIMENOrdering Facility: [facility] Address: [address] [place] [address] Result Comment: A. S ite not specified, port removal:-Unremarkable port (gross diagnosis only).ME/JXM 05/30/2023 Performed By: #### S ####[facility] LABCLIA [id number] [address] [place] FINAL PERFORMING LAB Normal [facility] Comment on above: Order Comment: Speci men Type: TISSUE SPECIMENOrdering Facility: [facility] Address: [address] [place] [address] Result Comment: Diag nostic interpretation performed at [facility], [address] [place] [address] CLIA# [id number] Director: Boris Wood M.D. Performed By: #### S ####[facility] LABIA [id number] [address] GROSS DESCRIPTION A. HARDWARE Normal [facility] Comment on above: Order Comment: Speci men Type: TISSUE SPECIMENOrdering Facility: [facility] Address: [address] [place] [address] Result Comment: Rece ived fresh labeled hardware [...] for gross examination only.Gross examination performed at [address] [id number] 05/30/23 10:43 AM Performed By: #### S ####[facility] LABIA [id number] [place] [address] [place] TYPE + SCREENon 05-29-2023 ABO O Normal [facility] Comment on above: Order Comment: Speci men Type: BLOOD SPECIMENOrdering Facility: [facility] Address: [address] [place] [address] Performed By: #### T SCR ####CC MAIN BLOOD BANKCLIA [id number] [address] STATES OF [facility] HISTORICAL AB SCR STATUS Negative Normal [facility] Comment on above: Order Comment: Speci men Type: BLOOD SPECIMENOrdering Facility: [facility] Address: [address] [place] [address] Performed By: #### T SCR ####CC MAIN BLOOD BANKCLIA [id number] [address] [place] Rh Nom (Bld) Positive Normal [facility] Comment on above: Order Comment: Speci men Type: BLOOD SPECIMENOrdering Facility: [facility] Address: [address] [place] [address] Performed By: #### T SCR ####CC MAIN BLOOD BANKCLIA [id number] [address] TYPE AND SCREEN EXPIRATION 06/01/2023 23:59 Normal [facility] Comment on above: Order Comment: Speci men Type: BLOOD SPECIMENOrdering Facility: [facility] Address: [address] [place] [address] Performed By: #### T SCR ####CC MAIN BLOOD BANKCLIA [id number] [address] OF [place] Bacteria Bld Culton 05-28-20 23 Bacteria identified Cx Nom (Bld) CULTURE, BLOOD: No growth 5 days Normal [facility] Comment on above: Performed By: #### 6 00-7 ####[facility] LABCLIA [id number] [place] [address] [place] Bacteria identified Cx Nom (Bld) CULTURE, BLOOD: No growth 5 days Normal [facility] Comment on above: Performed By: #### 6 00-7 ####[facility] LABCLIA [id number] [address] [address] [place] CBC W Auto Differential pane l (Bld)on 05-28-2023 Anisocytosis Ql (Bld) Present Normal [facility] Comment on above: Order Comment: Speci men Type: BLOOD SPECIMENOrdering Facility: [facility] Address: [address] [place] [address] Performed By: #### 5 7021-8, [id number] ####[facility] LABCLIA [id number] [place] [address] [place] Basophils (Bld) [#/Vol] 0.00 10*3/uL Normal <0.11 [facility] Comment on above: Order Comment: Speci men Type: BLOOD SPECIMENOrdering Facility: [facility] Address: [address] [place] [address] Performed By: #### 5 7021-8, [id number] ####[facility] LABCLIA [id number] [address] [place] Basophils/100 WBC (Bld) 0.0 % Normal [facility] Comment on above: Order Comment: Speci men Type: BLOOD SPECIMENOrdering Facility: [facility] Address: [address] [place], [place] [address] Performed By: #### 5 7021-8, [id number] ####[facility] LABCLIA [id number] [place] [address] [place] BLAST% 7.0 % High <=0.0 [facility] Comment on above: Order Comment: Speci men Type: BLOOD SPECIMENOrdering Facility: [facility] Address: [address] [place], [place] [address] Performed By: #### 5 7021-8, [id number] ####[facility] LABCLIA [id number] [place] [address] [place] Differential cell count method Nom (Bld) Manual Normal [facility] Comment on above: Order Comment: Speci men Type: BLOOD SPECIMENOrdering Facility: [facility] Address: [address] [address] Performed By: #### 5 7021-8, [id number] ####[facility] LABCLIA [id number] [place] [address] [place] [facility] [place] Eosinophils (Bld) [#/Vol] 0.03 10*3/uL Normal <0.46 [facility] Comment on above: Order Comment: Speci men Type: BLOOD SPECIMENOrdering Facility: [facility] Address: [address] [address] Performed By: #### 5 7021-8, [id number] ####[facility] LABCLIA [id number] [place] [address] [place] Eosinophils/100 WBC (Bld) 2.0 % Normal [facility] Comment on above: Order Comment: Speci men Type: BLOOD SPECIMENOrdering Facility: [facility] Address: [address] [place] [address] Performed By: #### 5 7021-8, [id number] ####[facility] LABCLIA [id number] [place] [address] [place] Erythrocyte distribution width (RBC) [Ratio] 18.3 % High 11.5-15.0 [facility] Comment on above: Order Comment: Speci men Type: BLOOD SPECIMENOrdering Facility: [facility] Address: [address] Performed By: #### 5 7021-8, [id number] ####[facility] LABCLIA [id number] [place] [address] [place] Hematocrit (Bld) [Volume fraction] 21.7 % Low 36.0-46.0 [facility] Comment on above: Order Comment: Speci men Type: BLOOD SPECIMENOrdering Facility: [facility] Address: [address] Performed By: #### 5 7021-8, [id number] ####[facility] LABCLIA [id number] [place] [address] [place] Hemoglobin (Bld) [Mass/Vol] 7.5 g/dL Low 11.5-15.5 [facility] Comment on above: Order Comment: Speci men Type: BLOOD SPECIMENOrdering Facility: [facility] Address: [address] [place] [address] Performed By: #### 5 7021-8, [id number] ####[facility] LABCLIA [id number] [place] [address] [place] HYPOGRANULATED PMNS Present Normal [facility] Comment on above: Order Comment: Speci men Type: BLOOD SPECIMENOrdering Facility: [facility] Address: [address] [place] [address] Performed By: #### 5 7021-8, [id number] ####[facility] LABCLIA [id number] [place] [address] [place] Lymphocytes (Bld) [#/Vol] 0.94 10*3/uL Low 1.00-4.00 [facility] Comment on above: Order Comment: Speci men Type: BLOOD SPECIMENOrdering Facility: [facility] Address: [address] [place] [address] Performed By: #### 5 7021-8, [id number] ####[facility] LABCLIA [id number] [place] [address] [place] Lymphocytes/100 WBC (Bld) 62.0 % Normal [facility] Comment on above: Order Comment: Speci men Type: BLOOD SPECIMENOrdering Facility: [facility] Address: [address] [place], [place] [address] Performed By: #### 5 7021-8, [id number] ####[facility] LABCLIA [id number] [place] [address] [place] MCH (RBC) [Entitic mass] 34.9 pg High 26.0-34.0 [facility] Comment on above: Order Comment: Speci men Type: BLOOD SPECIMENOrdering Facility: [facility] Address: [address] [place], [place] [address] Performed By: #### 5 7021-8, [id number] ####[facility] LABCLIA [id number] [place] [address] [place] MCHC (RBC) [Mass/Vol] 34.6 g/dL Normal 30.5-36.0 [facility] Comment on above: Order Comment: Speci men Type: BLOOD SPECIMENOrdering Facility: [facility] Address: [address] [place] [address] Performed By: #### 5 7021-8, [id number] ####[facility] LABCLIA [id number] [place] [address] [place] MCV (RBC) [Entitic vol] 100.9 fL High 80.0-100.0 [facility] Comment on above: Order Comment: Speci men Type: BLOOD SPECIMENOrdering Facility: [facility] Address: [address] [place], [place] [address] Performed By: #### 5 7021-8, [id number] ####[facility] LABCLIA [id number] [place] [address] [place] Monocytes (Bld) [#/Vol] 0.03 10*3/uL Normal <0.87 [facility] Comment on above: Order Comment: Speci men Type: BLOOD SPECIMENOrdering Facility: [facility] Address: [address] [place], [place] [address] Performed By: #### 5 7021-8, [id number] ####[facility] LABCLIA [id number] [place] [address] [place] Monocytes/100 WBC (Bld) 2.0 % Normal [facility] Comment on above: Order Comment: Speci men Type: BLOOD SPECIMENOrdering Facility: [facility] Address: [address] Performed By: #### 5 7021-8, [id number] ####[facility] LABCLIA [id number] [place] [address] [place] Neutrophils (Bld) [#/Vol] 0.41 10*3/uL Low 1.45-7.50 [facility] Comment on above: Order Comment: Speci men Type: BLOOD SPECIMENOrdering Facility: [facility] Address: [address] [address] Performed By: #### 5 7021-8, [id number] ####[facility] LABCLIA [id number] [place] [address] [place] Neutrophils/100 WBC (Bld) 27.0 % Normal [facility] Comment on above: Order Comment: Speci men Type: BLOOD SPECIMENOrdering Facility: [facility] Address: [address] Performed By: #### 5 7021-8, [id number] ####[facility] LABCLIA [id number] [place] [address] [place] Nucleated RBC (Bld) [#/Vol] 0.02 10*3/uL High <0.01 [facility] Comment on above: Order Comment: Speci men Type: BLOOD SPECIMENOrdering Facility: [facility] Address: [address] Performed By: #### 5 7021-8, [id number] ####[facility] LABCLIA [id number] [place] [address] [place] Nucleated RBC/100 WBC (Bld) [Ratio] 1.0 /100 WBC Normal [facility] Comment on above: Order Comment: Speci men Type: BLOOD SPECIMENOrdering Facility: [facility] Address: [address] Performed By: #### 5 7021-8, [id number] ####[facility] LABCLIA [id number] [place] [address] [place] Ovalocytes LM Ql (Bld) Few Normal [facility] Comment on above: Order Comment: Speci men Type: BLOOD SPECIMENOrdering Facility: [facility] Address: [address] [place] [address] Performed By: #### 5 7021-8, [id number] ####[facility] LABCLIA [id number] [place] [address] [place] Platelet mean volume (Bld) [Entitic vol] Normal [facility] Comment on above: Order Comment: Speci men Type: BLOOD SPECIMENOrdering Facility: [facility] Address: [address] [place] [address] Result Comment: Unab le to Report. Performed By: #### 5 7021-8, [id number] ####[facility] LABCLIA [id number] [place] [address] [place] Platelets (Bld) [#/Vol] 17 10*3/uL Low 150-400 [facility] Comment on above: Order Comment: Speci men Type: BLOOD SPECIMENOrdering Facility: [facility] Address: [address] [place] [address] Result Comment: Resu lts checked and verified.No clot detected. Performed By: #### 5 7021-8, [id number] ####[facility] LABCLIA [id number] [place] [address] [place] Platelets Estimate (Bld) [#/Vol] Decreased Normal [facility] Comment on above: Order Comment: Speci men Type: BLOOD SPECIMENOrdering Facility: [facility] Address: [address] [place] [address] Performed By: #### 5 7021-8, [id number] ####[facility] LABCLIA [id number] [place] [address] [place] Polychromasia LM Ql (Bld) Slight Normal [facility] Comment on above: Order Comment: Speci men Type: BLOOD SPECIMENOrdering Facility: [facility] Address: [address] [place] [address] Performed By: #### 5 7021-8, [id number] ####[facility] LABCLIA [id number] [place] [address] [place] RBC (Bld) [#/Vol] 2.15 10*6/uL Low 3.90-5.20 [facility] Comment on above: Order Comment: Speci men Type: BLOOD SPECIMENOrdering Facility: [facility] Address: [address] [place] [address] Performed By: #### 5 7021-8, [id number] ####[facility] LABCLIA [id number] [place] [address] [place] RBC FRAGMENTS Few Abnormal None Seen [facility] Comment on above: Order Comment: Speci men Type: BLOOD SPECIMENOrdering Facility: [facility] Address: [address] [place] [address] Performed By: #### 5 7021-8, [id number] ####[facility] LABCLIA [id number] [place] [address] [place] RED CELL MORPH Reviewed: see result s of individual morphologies Normal [facility] Comment on above: Order Comment: Speci men Type: BLOOD SPECIMENOrdering Facility: [facility] Address: [address] [place], [place] [address] Performed By: #### 5 7021-8, [id number] ####[facility] LABCLIA [id number] [place] [address] [place] Target cells LM Ql (Bld) Few Normal [facility] Comment on above: Order Comment: Speci men Type: BLOOD SPECIMENOrdering Facility: [facility] Address: [address] [place], [place] Performed By: #### 5 7021-8, [id number] ####[facility] LABCLIA [id number] [place] [address] [place] WBC (Bld) [#/Vol] 1.52 10*3/uL Low 3.70-11.00 [facility] Comment on above: Order Comment: Speci men Type: BLOOD SPECIMENOrdering Facility: [facility] Address: [address] [place] [address] Performed By: #### 5 7021-8, [id number] ####[facility] LABCLIA [id number] [place] [address] [place] CNNURSEon 05-28-2023 CNNURSE Normal [facility] CNOVSPon 05-28-2023 CNOVSP Normal [facility] CONSULT PROGon 05-28-2023 CONSULT PROG Normal [facility] Comprehensive metabolic 2000 panelon 05-28-2023 Albumin [Mass/Vol] 4.1 g/dL Normal 3.9-4.9 [facility] Comment on above: Order Comment: Speci men Type: BLOOD SPECIMENOrdering Facility: [facility] Address: [address] [place], [place] Performed By: #### 2 4323-8 ####[facility] LABCLIA [id number] [place] [address] [place] ALP [Catalytic activity/Vol] 60 U/L Normal 34-123 [facility] Comment on above: Order Comment: Speci men Type: BLOOD SPECIMENOrdering Facility: [facility] Address: [address] [place] [address] Performed By: #### 2 4323-8 ####[facility] LABCLIA [id number] [place] [address] [place] ALT [Catalytic activity/Vol] 12 U/L Normal 7-38 [facility] Comment on above: Order Comment: Speci men Type: BLOOD SPECIMENOrdering Facility: [facility] Address: [address] [address] Performed By: #### 2 4323-8 ####[facility] LABCLIA [id number] [place] [address] [place] Anion gap [Moles/Vol] 10 mmol/L Normal 9-18 [facility] Comment on above: Order Comment: Speci men Type: BLOOD SPECIMENOrdering Facility: [facility] Address: [address] [address] Performed By: #### 2 4323-8 ####[facility] LABCLIA [id number] [place] [address] [place] AST [Catalytic activity/Vol] 12 U/L Low 13-35 [facility] Comment on above: Order Comment: Speci men Type: BLOOD SPECIMENOrdering Facility: [facility] Address: [address] Performed By: #### 2 4323-8 ####[facility] LABCLIA [id number] [place] [address] [place] Bilirubin [Mass/Vol] 0.4 mg/dL Normal 0.2-1.3 [facility] Comment on above: Order Comment: Speci men Type: BLOOD SPECIMENOrdering Facility: [facility] Address: [address] Performed By: #### 2 4323-8 ####[facility] LABCLIA [id number] [place] [address] [place] Calcium [Mass/Vol] 9.0 mg/dL Normal 8.5-10.2 [facility] Comment on above: Order Comment: Speci men Type: BLOOD SPECIMENOrdering Facility: [facility] Address: [address] Performed By: #### 2 4323-8 ####[facility] LABCLIA [id number] [place] [address] [place] Chloride [Moles/Vol] 104 mmol/L Normal 97-105 [facility] Comment on above: Order Comment: Speci men Type: BLOOD SPECIMENOrdering Facility: [facility] Address: [address] [place] [address] Performed By: #### 2 4323-8 ####[facility] LABCLIA [id number] [place] [address] [place] CO2 [Moles/Vol] 24 mmol/L Normal 22-30 [facility] Comment on above: Order Comment: Speci men Type: BLOOD SPECIMENOrdering Facility: [facility] Address: [address] [place] [address] Performed By: #### 2 4323-8 ####[facility] LABCLIA [id number] [address] STATES OF [facility] Creatinine [Mass/Vol] 0.84 mg/dL Normal 0.58-0.96 [facility] Comment on above: Order Comment: Speci men Type: BLOOD SPECIMENOrdering Facility: [facility] Address: [address] [place] [address] Performed By: #### 2 4323-8 ####[facility] LABIA [id number] [address] Creatinine and Glomerular filtration rate.predicted panel (S/P/Bld) 75 mL/min/1.73m??? Normal >=60 [facility] Comment on above: Order Comment: Speci men Type: BLOOD SPECIMENOrdering Facility: [facility] Address: [address] [place] [address] Result Comment: Berenice mated Glomerular Filtration Rate [...] actual GFR. Performed By: #### 2 4323-8 ####[facility] LABIA [id number] [place] [address] [place] Glucose [Mass/Vol] 130 mg/dL High 74-99 [facility] Comment on above: Order Comment: Speci men Type: BLOOD SPECIMENOrdering Facility: [facility] Address: [address] [address] Result Comment: The [place] Diabetes Association (ADA) provides guidance for cutoff [...] Standards of Medical Care in Diabetes 2016, [place] [employer]. Diabetes Care. 2016.39(Suppl 1). Performed By: #### 2 4323-8 ####[facility] LABIA [id number] [place] [address] [place] Potassium [Moles/Vol] 3.7 mmol/L Normal 3.7-5.1 [facility] Comment on above: Order Comment: Speci men Type: BLOOD SPECIMENOrdering Facility: [facility] Address: [address] [address] Performed By: #### 2 4323-8 ####[facility] LABIA [id number] [place] [address] [place] Protein [Mass/Vol] 6.4 g/dL Normal 6.3-8.0 [facility] Comment on above: Order Comment: Speci men Type: BLOOD SPECIMENOrdering Facility: [facility] Address: [address] [place] [address] Performed By: #### 2 4323-8 ####[facility] LABCLIA [id number] [address] [place] Sodium [Moles/Vol] 138 mmol/L Normal 136-144 [facility] Comment on above: Order Comment: Speci men Type: BLOOD SPECIMENOrdering Facility: [facility] Address: [address] [address] Performed By: #### 2 4323-8 ####[facility] LABCLIA [id number] [place] [address] [place] Urea nitrogen [Mass/Vol] 17 mg/dL Normal 7-21 [facility] Comment on above: Order Comment: Speci men Type: BLOOD SPECIMENOrdering Facility: [facility] Address: [address] [address] Performed By: #### 2 4323-8 ####[facility] LABCLIA [id number] [address] [place] ED NOTEon 05-28-2023 ED NOTE HNO ID: [id number] Author: Whit Herron RN Service: Emergency Medicine Author Type: Registered Nurse Type: ED Notes Filed: 05/28/2023 8:24 PM Note Text: Report Given to Daysi OLEARY Normal [facility] ED NOTE HNO ID: [id number] Author: Alyce James RN Service: Emergency Medicine Author Type: Registered Nurse Type: ED Notes Filed: 05/28/2023 7:08 PM Note Text: Report to Whit OLEARY Normal [facility] ED NOTE Normal [facility] ED NOTE Normal [facility] ED NOTE HNO ID: [id number] Author: Sam Andre RN Service: ? Author Type: Registered Nurse Type: ED Notes Filed: 05/28/2023 3:59 PM Note Text: Bed: E12-17 Expected date: 05/28/23 Expected time: Means of arrival: Comments: Normal [facility] ED PROV NOTEon 05-28-2023 ED PROV NOTE Normal [facility] HISTORY PHYSICALon 3 HISTORY PHYSICAL Normal [facility] PATH INTER CBCDIF (LAB REFL EX ORDER-NO BILL)on 05-28-2023 Visually Impaired Teacher review Pino (Unsp spec) [Interp] Reviewed by Vikki Griffin M.D., Ph.D Normal [facility] Comment on above: Order Comment: Speci men Type: BLOOD SPECIMENOrdering Facility: [facility] Address: [address] [place] [address] Performed By: #### 5 7021-8, [id number] ####[facility] LABCLIA [id number] [place] [address] [place] STAFF REVIEW, CBCDIF Normal [facility] Comment on above: Order Comment: Speci men Type: BLOOD SPECIMENOrdering Facility: [facility] Address: [address] [place] [address] Result Comment: Macr ocytic anemia without hypersegmented PMNsLeukopenia with absolute neutropeniaThrombocytopeniaCirculating blasts, consistent with patient's known history diagnosis of AML. Performed By: #### 5 7021-8, [id number] ####[facility] LABCLIA [id number] [place] [address] [place] Lab Reportson 05-23-2023 Lab Reports [id number]#1.00CD:127 Normal [facility] Lab Reportson 05-22-2023 Lab Reports [id number]#1.00CD:127 Normal [facility] Operative Reporton Operative Report [id number]#1.00CD:127 Normal [facility] Outside [facility] Correspo ndenceon 05-22-2023 Outside [facility] Correspondence [id number]#1.00CD:127 Normal [facility] Physician Referralon 023 Physician Referral [id number]#1.00CD:127 Normal [facility] Surgical Pathologyon 023 Surgical Pathology (NOTE) -- [...] of possible hemorrhage. There is no necrosis. Mirror Framer sections 1cs. tm Microscopic Description Microscopic examination performed. SURGICAL PATHOLOGY CONSULTATION Patient Name: PRINCESS WILKES [facility] Rec: [id number] Path Number: [id number] [facility] ANATOMIC PATHOLOGY [address] [place] [address] [facility] Comment on above: Performed By: #### P PPVS #### [facility] [address] Repossessor: Nghia Casas MD VL Extremity Venous Duplex L [facility] 06-14-2021 VL Extremity Venous Duplex Lower Left Preliminary Technologist Report Right comparison appeared normal Left lower extremity: There appeared to be no evidence of acute or chronic DVT, all vessels appeared compressible and patent. Results called to Deanna in [place] office at 4:00pm International Nurse: Beau Rocha, JANETH Radiologist Report CLINICAL HISTORY: [...] Electronically Signed in Other Vendor System) Normal [facility] Vital Signs Date Time Vital Sign Value Performing Clinician Facility 06-25-2023 11:29-0400 Body temperature 97.7 [degF] Mike Hughes MD Work Phone: [facility] 06-25-2023 11:29-0400 Body weight 116.1 kg Mike Hughes MD Work Phone: [facility] 06-25-2023 11:29-0400 Diastolic blood pressure 54 mm[Hg] Mike Hughes MD Work Phone: [facility] 06-25-2023 11:29-0400 Heart rate 77 /min Mike Hughes MD Work Phone: [facility] 06-25-2023 11:29-0400 Respiratory rate 18 /min Mike Hughes MD Work Phone: [facility] 06-25-2023 11:29-0400 Systolic blood pressure 134 mm[Hg] Mike Hughes MD Work Phone: [facility] 06-25-2023 10:00-0400 Diastolic blood pressure 80 mm[Hg] Lj Liz MD Work Phone: [facility] 06-25-2023 10:00-0400 Heart rate 71 /min Lj Liz MD Work Phone: [facility] 06-25-2023 10:00-0400 Respiratory rate 16 /min Lj Liz MD Work Phone: [facility] 06-25-2023 10:00-0400 SaO2% (BldA) [Mass fraction] 97 % Lj Liz MD Work Phone: [facility] 06-25-2023 10:00-0400 Systolic blood pressure 153 mm[Hg] Lj Liz MD Work Phone: [facility] 06-25-2023 06:40-0400 Body temperature 97.7 [degF] Lj Liz MD Work Phone: [facility] 12-22-2022 15:00-0400 Diastolic blood pressure 88 mm[Hg] Martha Nazemi DO Work Phone: [facility] 12-22-2022 15:00-0400 Heart rate 62 /min Martha Nazemi DO Work Phone: [facility] 12-22-2022 15:00-0400 Respiratory rate 16 /min Martha Nazemi DO Work Phone: [facility] 12-22-2022 15:00-0400 SaO2% (BldA) [Mass fraction] 96 % Martha Nazemi DO Work Phone: [facility] 12-22-2022 15:00-0400 Systolic blood pressure 129 mm[Hg] Martha Nazemi DO Work Phone: [facility] 12-22-2022 14:32-0400 Body temperature 96.91 [degF] Martha Nazemi DO Work Phone: [facility] 12-22-2022 11:47-0400 Body height 166.4 cm Martha Nazemi DO Work Phone: [facility] 12-22-2022 11:47-0400 Body mass index (BMI) [Ratio] 43.43 kg/m2 Martha Nazemi DO Work Phone: [employer] [facility] 12-22-2022 11:47-0400 Body weight 120.2 kg Martha Malik DO Work Phone: [facility] Encounters Encounter Date Encounter Type Care Provider Facility Start: 09-20-2023 ambulatory MIKE HUGHES Facil ity:[facility] Start: 09-07-2023 End: 09-08-2023 ambulatory MIKE HUGHES Facility:[facility] Start: 09-06-2023 End: 09-06-2023 ambulatory MELISSA PIERCE Not Available Start: 08-31-2023 End: 09-01-2023 ambulatory MIKE HUGHES Facility:[facility] Start: 08-30-2023 End: 08-30-2023 ambulatory MELISSA PIERCE Facility:[facility] Start: 08-30-2023 End: 08-30-2023 ambulatory CHARLENE MARTINEZ Facility:[facility] Start: 08-15-2023 Social Work Britany Light Work Phone: Hematology/Oncology Start: 08-13-2023 Telephone encounter Georgina armas RN Work Phone: Hematology/Oncology Comment on above: Appointment Start: 08-09-2023 Refill Mike valencia MD Work Phone: Hematology/Oncology Comment on above: Refill Request Consent Presentation (IRB [id number]) Start: 08-08-2023 Telephone encounter Georgina armas RN Work Phone: Hematology/Oncology Comment on above: Patient Education (T ransplant) (BMT Planning) 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) Start: 08-07-2023 Refill Mike valencia MD Work Phone: Hematology/Oncology Comment on above: Refill Request Transplant Info Biopsy Request Start: 07-30-2023 End: 07-30-2023 ambulatory MIKE HUGHES Facility:[facility] Start: 07-30-2023 End: 07-30-2023 Follow-up encounter Mike Hughes MD Work Phone: Hematology/Oncology Comment on above: 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); Immunocompromised (HCC); Hospital discharge follow-up; Pancytopenia (HCC); Colitis Start: 07-30-2023 End: 07-30-2023 Telemedicine consultation with patient Mike Hughes MD Work Phone: [facility] Start: 07-18-2023 End: 07-18-2023 Evaluation and management of inpatient MELISSA PIERCE Facility:[facility] Start: 07-13-2023 End: 07-18-2023 Evaluation and management of inpatient ABDI CONTEH Facility:[facility] Start: 07-06-2023 Telephone encounter Aurelia valerio RN Work Phone: Hematology/Oncology Start: 07-02-2023 End: 07-02-2023 ambulatory MIKE HUGHES Facility:[facility] Start: 07-02-2023 End: 07-02-2023 ambulatory Mike Hughes MD Work Phone: Hematology/Oncology Comment on above: 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); Immunocompromised (HCC); Pancytopenia (HCC) Start: 07-02-2023 End: 07-02-2023 Telemedicine consultation with patient Mike Hughes MD Work Phone: [facility] Start: 06-27-2023 Orders Only Mike valencia MD Work Phone: Hematology/Oncology Comment on above: 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) Start: 06-25-2023 End: 06-25-2023 Patient encounter procedure Mike Hughes MD Work Phone: [facility] Start: 06-25-2023 End: 06-25-2023 [...] Start: 06-14-2023 End: 06-14-2023 ambulatory MIKE HUGHES Facility:[facility] Start: 06-14-2023 Telephone encounter Mary ramachandran [facility] Work Phone: [facility] Comment on above: Biopsy Request Start: 05-31-2023 Telephone encounter Chika Lagos Hem atology/Oncology Start: 05-28-2023 End: 06-07-2023 Evaluation and management of inpatient MELISSA PIERCE Facility:[facility] Start: 05-28-2023 End: 05-29-2023 ambulatory Brianna Pham MD Work Phone: Hematology/Oncology Comment on above: 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); Infection due to Port-A-Cath, initial encounter Start: 05-28-2023 End: 05-28-2023 Patient encounter procedure Brianna Pham MD Work Phone: [facility] Start: 05-28-2023 End: 05-28-2023 Nursing evaluation of patient and report Aurelia Hines RN Work Phone: Hematology/Oncology Comment on above: 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) Start: 05-22-2023 ambulatory Facility:[facility] Start: 05-18-2023 ambulatory Facility:[facility] Breaux Start: 12-22-2022 End: 12-22-2022 [facility] Start: 12-22-2022 End: 12-22-2022 Subsequent hospital visit by physician Martha Malik DO Work Phone: [facility] Comment on above: Acute postoperative pain (Primary Dx); Lipoma of left forearm Start: 08-11-2021 End: 08-11-[address] MELISSA PIERCE Facility: Start: 06-14-2021 End: 06-15-2021 ambulatory MELISSA PIERCE Facility:[facility] Procedures Date Procedure Procedure Detail Performing Clinician Start: 07-13-2023 Antibody screen MIKE HUGHES Comment on above: Order Comment: Speci men Type: BLOOD SPECIMENOrdering Facility: [facility] Address: [address] [place] [address] Performed By: #### T SCR ####CC MAIN BLOOD BANKCLIA [id number] [address] Start: 06-25-2023 FLOW CYTOMETRY FOR LEUKEMIA/LYMPHOMA (FCLL) PERFORMABLE Mike Hughes MD Work Phone: Start: 06-06-2023 Antibody screen MIKE HUGHES Comment on above: Order Comment: Speci men Type: BLOOD SPECIMENOrdering Facility: [facility] Address: [address] [place] [address] Performed By: #### T SCR ####CC MAIN BLOOD BANKCLIA [id number] [address] Start: 06-03-2023 Antibody screen MIKE HUGHES Comment on above: Order Comment: Speci men Type: BLOOD SPECIMENOrdering Facility: [facility] Address: [address] [place] [address] Performed By: #### T SCR, [id number], [id number] ####CC MAIN BLOOD BANKCLIA [id number] [address] MARY#### [id number] ####[facility] LABCLIA [id number] [address] Start: 05-31-2023 Antibody screen MIKE HUGHES Comment on above: Order Comment: Speci men Type: BLOOD SPECIMENOrdering Facility: [facility] Address: [address] Performed By: #### T SCR ####CC MAIN BLOOD BANKCLIA [id number] [address] Start: 05-29-2023 Antibody screen ORALIAMASOUD HUGHES Comment on above: Order Comment: Speci men Type: BLOOD SPECIMENOrdering Facility: [facility] Address: [address] [address] Performed By: #### T SCR ####CC MAIN BLOOD BANKIA [id number] [address] Start: 05-02-2023 Lipid 1996 panel - S efra or Plasma Aurelia Hines RN Work Phone: Plan of Treatment Date Care Activity Detail Author Start: 05-22-2033 Urine microalbumin profile DTaP,Tdap,Td Vaccine (2 - Td or Tdap) [facility] Start: 05-02-2028 Lipid 1996 panel - S efra or Plasma Lipid Screening [facility] Start: 05-02-2028 Lipid panel Lipid Screening [facility] Start: 07-18-2026 [facility]: 06-07-2026 [facility] Start: 05-31-2026 Diabetes Screening Diabetes Screenin [facility] Start: 05-28-2026 Diabetes Screening Diabetes Screenin g [facility] Start: 11-22-2023 Mammography Mammogram Screening [facility] Start: 11-22-2023 Screening for malign ant neoplasm of breast Mammogram Screening [facility] Start: 08-28-2023 End: 11-27-2023 ACUTE LEUKEMIA NGS PANEL, BONE MARROW ACUTE LEUKEMIA NGS PANEL, BONE MARROW Lab Routine 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) Expected: 08/28/2023, Expires: 11/27/2023 [facility] Work Phone: Comment on above: Expected: 08/28/2023 , Expires: 11/27/2023 Start: 08-28-2023 End: 11-27-2023 BONE MARROW ANALYSIS BONE MARROW ANALYSIS Lab Routine 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) Expected: 08/28/2023, Expires: 11/27/2023 [facility] Work Phone: Comment on above: Expected: 08/28/2023 , Expires: 11/27/2023 Start: 08-28-2023 End: 11-27-2023 CBC W Auto Differential panel - Blood CBC + DIFF Lab Routine 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) Expected: 08/28/2023, Expires: 11/27/2023 [facility] Work Phone: Comment on above: Expected: 08/28/2023 , Expires: 11/27/2023 Start: 04-03-2023 Influenza vaccination Flu vacc ine (Season Ended) [facility] Start: 01-03-2023 End: 01-03-2023 Patient encounter procedure 01/03/2023 Office Visit General Surgery Martha Malik I, [address] [place] [address] [place] [phone] [facility] Start: 12-22-2022 End: 12-22-2022 Exc b9 lesion mrgn xcp sk tg t/a/l 0.5 cm/< ARM LESION BIOPSY EXCISION Lipoma of left forearm 12/22/2022 1:52 PM EDT [facility] Start: 11-17-2022 Annual Wellness Visi t (AWV) Annual Wellness Visit (AWV) [facility] Start: 09-03-2022 Advance Directive Discussion Advance Directive Discussion [facility] Start: 01-13-2021 COVID-19 Vaccine (3 - Booster for Pfizer series) COVID-19 Vaccine (3 - Booster for Pfizer series) [facility] Start: 12-16-2020 Covid-19 Vaccine (3 - Pfizer risk series) Covid-19 Vaccine (3 - Pfizer risk series) [facility] Start: 2018 Bone Density Screening Bone Density Screening [facility] Start: 2018 Screening for osteoporosis Bone Density Screening [facility] Start: 05-22-2016 Shingles vaccine (2 of 3) Shingles vaccine (2 of 3) [facility] Start: 05-22-2016 Shingrix Vaccine (1 of 2) Shingrix Vaccine (1 of 2) [facility] Start: 2013 RSV Vaccine (1 - 1-d ose 60+ series) RSV Vaccine (1 - 1-dose 60+ series) [facility] Start: 2008 Screening for osteoporosis DEXA (modify frequency per FRAX score) [facility] Start: 2003 Screening for malign ant neoplasm of breast Breast cancer screen [facility] Start: 1998 Cologuard (FIT-DNA) Cologuard (FIT-D NA) [facility] Start: [address] [facility] Start: 1998 Colorectal Cancer Screening Colorectal Cancer Screening [facility] Start: [address] [facility] Start: 1998 Fecal Occult Blood Fecal Occult Bloo d [facility] Start: 1998 Screening for malign ant neoplasm of colon [facility] Start: 1998 SIGMOIDOSCOPY SIGMOIDOSCOPY [facility] Start: 1993 Lipid panel Lipids [facility] Start: 1988 Diabetes screen Diabetes screen [facility] Start: 1972 DTaP/Tdap/Td vaccine (1 - Tdap) DTaP/Tdap/Td vaccine (1 - Tdap) [facility] Start: 1971 Hepatitis C screening Hepatitis C sc reen [facility] Start: 1965 Depression Screen Depression Screen [facility] AML MRD BY FC AML MRD BY FC La b Routine 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) 06/25/2023 8:27 AM [facility] Work Phone: BONE MARROW ANALYSIS BONE MARROW ANALYSIS Lab Routine 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) 06/25/2023 8:55 AM [facility] Work Phone: BONE MARROW CHROMOSO ME ANAL BONE MARROW CHROMOSOME ANAL Lab Routine 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) 06/25/2023 8:27 AM [facility] Work Phone: Diagnostic bone jaylon ow biopsies IMAGING GUIDED BIOPSY BONE MARROW (HEMATOLOGY) Radiology Routine 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) Ordered: 08/08/2023 [facility] Work Phone: Comment on above: Ordered: 08/08/2023 DNA EXTRACTION BONE MARROW (BUFFY COAT) DNA EXTRACTION BONE MARROW (BUFFY COAT) Lab Routine 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) 06/25/2023 8:27 AM EDT [facility] Work Phone: FLT3 ITD HN BONE MARROW FLT3 ITD HN BONE MARROW Lab Routine 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) 06/25/2023 8:27 AM T [facility] Work Phone: MYELOID NGS PANEL ZEENAT NE MARROW MYELOID NGS PANEL BONE MARROW Lab Routine 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) 06/25/2023 8:27 AM T [facility] Work Phone: Surgical Pathology Surgical Path ology Lab Routine Lipoma of left forearm Release Upon Ordering for 1 Occurrences starting 12/22/2022 [facility] Work Phone: Comment on above: Release Upon Orderin g for 1 Occurrences starting 12/22/2022 [facility] MC ANGIO HB6 [facility] Immunizations Immunization Date Immunization Notes Care Provider Fa [facility] 05-22-2023 influenza (HD-IIV4) vaccine, age 65+ yr, high dose, quadrivalent, PF (FLUZONE HIGH-DOSE) Aurelia Hines RN Work Phone: [facility] 05-22-2023 tetanus toxoid, redu armaan diphtheria toxoid, and acellular pertussis vaccine, adsorbed Aurelia Hines RN Work Phone: [facility] 08-04-2019 pneumococcal polysaccharide vaccine, 23 valent Aurelia Hines RN Work Phone: [facility] 06-17-2018 influenza, injectabl e, quadrivalent, preservative free Aurelia Hines RN Work Phone: [facility] 06-17-2018 pneumococcal conjuga te vaccine, 13 valent Aurelia Hines RN Work Phone: [facility] 06-03-2017 influenza, injectabl e, quadrivalent, preservative free Aurelia Hines RN Work Phone: [facility] 07-17-2016 influenza, injectabl e, quadrivalent, preservative free Aurelia Hines RN Work Phone: [facility] 06-03-2016 seasonal influenza, intradermal, preservative free Aurelia Hines RN Work Phone: [facility] 03-27-2016 zoster vaccine, live Aurelia moser RN Work Phone: [facility] Payers Date Payer Category Payer Private Health Insurance [employer] A ETNA MEDICARE SUPPLEMENT [id number] 2023-Present [phone] [address] [address] [place] [address] Indemnity [id number] 2023 Private Health Insurance CLI [id number] 2021 Unknown 2018 Medicare 1961 Medicare [id number] 1961 Unknown [id number] 1953 Unknown [id number] 1953 Unknown [id number] 1953 Unknown [id number] 1953 Unknown [id number] Social History Date Type Detail Facility Start: 12-07-2022 Tobacco smoking stat us [facility] Tobacco smoking consumption unknown [facility] Start: 09-04-2013 End: 12-07-2022 Tobacco use and exposure Smokeless tobacco non-user [employer] Phone: Start: 12-22-2022 End: 07-16-2023 Alcohol intake Current drinker of alcohol (finding) [facility] [employer] Phone: Start: 12-22-2022 End: 05-28-[address] [facility] Start: 1955 Sex Assigned At Not on file [facility] [employer] Phone: Start: 12-12-2022 End: 12-22-2022 Exposure to SARS-CoV-2 (event) Not sure [facility] Start: 09-04-2013 [facility] Never smoked tobacco [facility] Start: 05-28-2023 End: 06-11-[address] [facility] Adult Depression Screening Assessment [address] [facility] Start: 09-04-2013 Alcohol Comment social [facility] Start: 1955 Sex Assigned At Female C [facility] Start: 05-22-2023 Gender identity Identifies as female gender (finding) [facility] Clinical Notes 09-11-2013 to 09-20-2023 Britany Lozada LSW - 08/15/2023 1:38 PM ESTTelephone Encounter - Amrita Pelaez - 08/14/2023 8:56 AM ESTTelephone Encounter - Robinson Benito MD - 08/08/2023 5:09 PM EST Note Date & Type Note Facility 09-20-2023 Note [facility] 09-13-2023 Note [facility] 09-07-2023 Note [facility] 08-31-2023 Note [facility] 08-30-2023 Note [facility] 08-30-2023 Note [facility] 08-15-2023 Note [facility] 08-15-2023 History of Present illness Narrative [...] and . Both stated they stayed at [facility] in the past and needed to stay for the visit in August (message sent to hotel staff member regarding same). stated a referral has been sent to [facility] for the September stay. Mickie will meet with the BMT child welfare social worker at the August visit. Therefore, message sent to her regarding above. Provided support and encouragement. FREDRICK Morgan documented in this encounter [facility] 08-14-2023 Miscellaneous Notes Spoke to pt [...] this procedure: low risk. Reference from [facility]: https://[facility].policytech.com/dotNet/ documents/?[email or web address] STAFF SIGNATURE: Robinson Benito MD DATE: August [...] CONTACT INFORMATION: Best way to reach patient [phone]. SCHEDULING: Date: 08/28/23 (Specific requests must be [...] random biopsies do not need imaging.) IMAGING: [facility] (If the imaging was obtained outside the [facility] system, PLEASE upload for review prior to approval.) Note to all persons requesting biopsies: All biopsy requests will be scheduled as quickly as possible, based on the clinical urgency, availability of appointment times, the need to hold anti-thrombolytic therapy (aspirin and other blood thinners) and the patient s schedule, including the need for an available truck driver helper. If a percutaneous biopsy or drainage is not felt to be safe or an alternative method for establishing a diagnosis is possible, this will be discussed directly with the requesting physician. documented in this encounter [facility] 08-13-2023 Miscellaneous Notes Princess's , De, called to clarify lab needed the week of 09/04/2023. He is aware the lab will be scheduled on the same day Princess see's Dr. Pham. Also informed De that per BMT PILE DRIVING SETTER, Princess's bone density done in October 2021 will be her baseline prior to BMT. De confirmed Princess has received and been reading through the [facility] BMT study consent, and they do not have questions at this time. He verbalized understanding of all the above and is aware to call with questions or concerns. Georgina Kumar RN documented in this encounter [facility] 08-09-2023 Miscellaneous Notes Pt's copay to get posaconazole through [facility] is $4k. Previously it was sent through [facility], will change script to [facility] instead. Estephanie Parada RN documented in this encounter [facility] 08-08-2023 Miscellaneous Notes [facility] INITIAL TELEPHONE CONTACT Spoke with Princess Wilkes and her , De, on the telephone on 08/08/2023 at 10:10. Princess Wilkes informed that hard copy of education binder will be given to patient at pre-transplant evaluation and link to education binder provided to patient via [employer] secure patient message. Princess Wilkes is currently [...] reside within one hour driving distance from [facility] for at least 100 days post-transplant. Her De will be her primary caregiver and they might stay at [facility] post BMT. Female fertile? No Ovarian suppression [...] Georgina Kosar, RN documented in this encounter [facility] 07-30-2023 Note [facility] 07-30-2023 History of Present illness Narrative Images from the original note were not included. This is a virtual visit using [employer] Zoom Video Visit. It required patient-provider interaction for the medical decision making as documented below. I have communicated my name and active licensure. The patient's identity and physical location were verified at the time of this visit. Either the patient or their legal client service representative has been informed of the risks and benefits of -- and alternatives to -- treatment through a remote evaluation and consents to proceed with the evaluation remotely. [facility] Department of Hematology and Medical Oncology Leukemia Program Princess Wilkes ID: [id number] 07/30/2023 PRIMARY CARE PHYSICIAN: Melissa Pierce MD [...] year old female with prior Stage 1 ([id number]) L breast invasive and DCIS, 1.5 cm, grade 2, ER/NE positive and HER2 negative s/p L lumpectomy Sep 2013 followed by adjuvant RT to L breast completed 01/06/14. Oncotype Dx 13 - so no chemo was offered. She then completed 5 years of endocrine therapy from 01/2014 - 01/2019 - letrozole followed by tamoxifen (x1 year). She presented to the ER on 05/03/23 at [facility] with generalized weakness, dizziness, exertional [...] 06/12/23 CBC - 0.9 0.09 9.3 10 [facility] [phone] Past MHx: PAST MEDICAL HISTORY Diagnosis Date [...] with VKA drugs, such as warfarin, the [place] [employer] 2012 Guideline recommends [...] JACC 2017, 70: [id number] BONE MARROW ANALYSIS: [id number] Order: [id number] Collected 06/25/2023 8:55 AM Status: Final result [...] Hernandez from the hematopathology section at the [facility], and he concurs with the above rendered final diagnosis and interpretation. Laboratory Developed Test (LDT) Disclaimer: Performance characteristics of immunohistochemical, immunofluorescent and chromogenic in-situ hybridization tests have been determined by the performing laboratory within [facility] s [facility] Pathology and Laboratory Medicine [place] ([facility], [facility], [facility], [facility], [facility], Count Includes [facility], or [facility]) in a manner consistent with CLIA requirements. [...] hemodilute touch imprint may not be entirely client service representative of the true marrow cellularity. Result [...] cassette. Performing Lab Diagnostic interpretation performed at [facility], [address] [place], [place] [id number] [facility]# [id number] Manager Generation: Boris Wood M.D. Assessment and Plan: Ms. Princess Wilkes is a 67 year old female with prior Stage 1 ([id number]) L breast invasive and DCIS, 1.5 cm, grade 2, ER/NE positive and HER2 negative s/p L lumpectomy [...] status # Prior Breast CA Stage 1 ([id number]) L breast invasive and DCIS, 1.5 cm, grade 2, ER/NE positive and HER2 negative s/p L lumpectomy [...] which included preparing to see the patient, [id number] patient care, completing clinical documentation, obtaining and/or reviewing separately obtained history, and performing a medically appropriate examination. Mike Hughes MD Hematology and Medical Oncology, Leukemia Division 06/25/23 cc: Mike Hughes [id number] [id number] Melissa Pierce MD [address] [facility] [id number] documented in this encounter [facility] 07-18-2023 Note [facility] 07-17-2023 Note [facility] 07-16-2023 Note [facility] 07-16-2023 Note [facility] 07-15-2023 Note [facility] 07-14-2023 Note [facility] 07-14-2023 History of Past i llness [...] Tylenol and d/c'd home > seen at [facility] on 05/28 by heme/onc and BMT who recommended admission for concerns for port infection > blood cxs x2 obtained -- NGTD > no fevers TOPSTITCHER ZIGZAG, 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; 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 > ID [...] of this encounter (statuses as of 07/30/2023) [facility] History of Past illness Narrative* Problem [...] Tylenol and d/c'd home > seen at [facility] on 05/28 by heme/onc and BMT who recommended admission for concerns for port infection > blood cxs x2 obtained -- NGTD > no fevers TOPSTITCHER ZIGZAG, 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; 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 > ID [...] of this encounter (statuses as of 08/08/2023) [facility] History of Past illness Narrative* Problem [...] Tylenol and d/c'd home > seen at [facility] on 05/28 by heme/onc and BMT who recommended admission for concerns for port infection > blood cxs x2 obtained -- NGTD > no fevers TOPSTITCHER ZIGZAG, 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; 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 > ID [...] of this encounter (statuses as of 08/08/2023) [facility] History of Past illness Narrative* Problem [...] Tylenol and d/c'd home > seen at [facility] on 05/28 by heme/onc and BMT who recommended admission for concerns for port infection > blood cxs x2 obtained -- NGTD > no fevers TOPSTITCHER ZIGZAG, 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; 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 > ID [...] of this encounter (statuses as of 08/08/2023) [facility] History of Past illness Narrative* Problem [...] Tylenol and d/c'd home > seen at [facility] on 05/28 by heme/onc and BMT who recommended admission for concerns for port infection > blood cxs x2 obtained -- NGTD > no fevers TOPSTITCHER ZIGZAG, 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; 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 > ID [...] of this encounter (statuses as of 08/09/2023) [facility] History of Past illness Narrative* Problem [...] Tylenol and d/c'd home > seen at [facility] on 05/28 by heme/onc and BMT who recommended admission for concerns for port infection > blood cxs x2 obtained -- NGTD > no fevers TOPSTITCHER ZIGZAG, 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; 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 > ID [...] of this encounter (statuses as of 08/09/2023) [facility] History of Past illness Narrative* Problem [...] Tylenol and d/c'd home > seen at [facility] on 05/28 by heme/onc and BMT who recommended admission for concerns for port infection > blood cxs x2 obtained -- NGTD > no fevers TOPSTITCHER ZIGZAG, 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; 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 > ID [...] of this encounter (statuses as of 08/10/2023) [facility] History of Past illness Narrative* Problem [...] Tylenol and d/c'd home > seen at [facility] on 05/28 by heme/onc and BMT who recommended admission for concerns for port infection > blood cxs x2 obtained -- NGTD > no fevers TOPSTITCHER ZIGZAG, 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; 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 > ID [...] of this encounter (statuses as of 08/10/2023) [facility] History of Past illness Narrative* Problem [...] Tylenol and d/c'd home > seen at [facility] on 05/28 by heme/onc and BMT who recommended admission for concerns for port infection > blood cxs x2 obtained -- NGTD > no fevers TOPSTITCHER ZIGZAG, 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; 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 > ID [...] of this encounter (statuses as of 08/13/2023) [facility] History of Past illness Narrative* Problem [...] Tylenol and d/c'd home > seen at [facility] on 05/28 by heme/onc and BMT who recommended admission for concerns for port infection > blood cxs x2 obtained -- NGTD > no fevers TOPSTITCHER ZIGZAG, 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; 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 > ID [...] of this encounter (statuses as of 08/14/2023) [facility] History of Past illness Narrative* Problem [...] Tylenol and d/c'd home > seen at [facility] on 05/28 by heme/onc and BMT who recommended admission for concerns for port infection > blood cxs x2 obtained -- NGTD > no fevers TOPSTITCHER ZIGZAG, 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; 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 > ID [...] of this encounter (statuses as of 08/16/2023) [facility] Miscellaneous Notes* Telephone Encounter - Aurelia [...] WILKES Donor Name: PIERRE FERRARI Donor ID: [id number] Relationship: Sibling Report Status: Final Patient HLA Specimen Date: 05/29/2023 DNA ID: [id number] Patient HLA Typing: HLA-A* 02:01 , 68:02 HLA-B* 14:02 , 15:01 HLA-C* 03:04 , 08:02 HLA-DRB1* 01:01 , 13:03 HLA-DRB3* 01:01 , - HLA-DRB4* - , - HLA-DRB5* - , - HLA-DQA1* 01:01 , 05:05 HLA-DQB1* 03:01 , 05:01 HLA-DPA1* 01:03 , - HLA-DPB1* 02:/416:01 , 04:02/105:01 COMMENTS: none Donor HLA Specimen Date: 06/19/2023 DNA ID: [id number] Donor HLA Typing: HLA-A* 02:01 , 68:02 [...] 06/27/2023 Aurelia Hines RN documented in this encounterSt. [facility] History of Present illness Narrative* Mike Hughes MD - 07/02/2023 8:49 AM EDT Images from the original note were not included. This is a virtual visit using AquaBlokom Video Visit. It required patient- provider interaction for the medical decision making as documented below. I have communicated my name and active licensure. The patient's identity and physical location wereverified at the time of this visit. Either the patient or their legal client service representative has been informed of the risks and benefits of -- and alternatives to -- treatment through a remote evaluation andconsents to proceed with the evaluation remotely. [facility] Department of Hematology and Medical Oncology Leukemia Program Princess Wilkes ID: [id number] 07/02/2023 PRIMARY CARE PHYSICIAN: Melissa Pierce MD [...] year old female with prior Stage 1 ([id number]) L breast invasive and DCIS,1.5 cm, grade 2, ER/NE positive and HER2 negative s/p L lumpectomy Sep 2013 followed by adjuvant RTto L breast completed 01/06/14. Oncotype Dx 13 - so no chemo was offered. She then completed 5 years of endocrine therapy from 01/2014 - 01/2019 - letrozole followed by tamoxifen (x1 year). She presented to the ER on 05/03/23 at [facility] with generalized weakness, dizziness, exertional [...] - 0.9 0.09 9.3 10 Darlyn - [phone] Past MHx: PAST MEDICAL HISTORY Diagnosis Date [...] with VKA drugs, such as warfarin, the [place] [employer] 2012 Guideline recommends [...] Chest 2012, 141:7S-47S Margo RA, et al. [facility] 2017, 70: 252-289 BONE MARROW ANALYSIS: [id number] Order: [id number] Collected 06/25/2023 8:55 AM Status: Final result [...] Hernandez from the hematopathology section at the [facility], and he concurs with the above rendered final diagnosis and interpretation. Laboratory Developed Test (LDT) Disclaimer: Performance characteristics of immunohistochemical, immunofluorescent and chromogenic in-situ hybridization tests have been determined by the performing laboratory within [facility] s [facility] Pathology and Laboratory Medicine [place] ([facility], [facility], [facility], [facility], [facility], Count Includes [facility], or [facility]) in a manner consistent with CLIA requirements. [...] hemodilute touch imprint may not be entirely client service representative of the true marrow cellularity. Result [...] cassette. Performing Lab Diagnostic interpretation performed at [facility], [address] [place] [id number] CLIA# [id number] Manager Generation: Boris Wood M.D. Assessment and Plan: Ms. Princess Wilkes is a 67 year old female with prior Stage 1 ([id number]) L breast invasive and DCIS,1.5 cm, grade 2, ER/NE positive and HER2 negative s/p L lumpectomy [...] needed # Prior Breast CA Stage 1 ([id number]) L breast invasive and DCIS, 1.5 cm, grade 2, ER/NE positive and HER2 negative s/p L lumpectomy [...] which included preparing to see the patient, [id number] patient care, completing clinical documentation, obtaining and/or reviewing separately obtained history, and performing a medically appropriate examination. Mike Hughes MD Hematology and Medical Oncology, Leukemia Division 06/25/23 cc: Mike Hughes [address] [facility] [id number] Melissa Pierce MD [address] [place] [id number] documented in this encounterSt. Rita'S Hospital10-23-2023 [facility]10-[facility] Nurse Note* Charlene Ruiz LPN - 06/25/2023 11:28 AM EDT Additional intake questions: Has the patient had fever, nausea, vomiting, diarrhea, constipation, fatigue for > 1 week? Yes, vomiting Does the patient have a decreased appetite? No Does patient want to see a Manager Financial Systems? No (yes to any of above refer patient to schedulers for dietitian appointment) ) Does patient have any new or increased numbness or tingling of extremities? No Is patient interested in fertility information? NA Does patient need any prescription refills? No Does patient have an advanced directive in place? Yes, no copy found in [facility] Patient referred to Social Work and Patient referred to [facility] documented in this encounterSt. [facility] Hospital10-23-2023 [facility]10-[facility] Surgical operation note* Brief Op Note - Robinson Benito MD - 06/25/2023 9:06 AM EDT BRIEF OPERATIVE / PROCEDURE NOTE LOG ID: [id number] SURGERY/PROCEDURE DATE: 06/25/2023 INCISION/PROCEDURE START TIME: 8:40 AM INCISION CLOSE/PROCEDURE END TIME: 8:59 AM SURGEON(S)/PROCEDURALIST(S) AND DEPARTMENTAL SHIPPING CLERK(S): Surgeon(s) and Role: * Lj Liz MD [...] 2023 TIME: 9:06 AM documented in this encounterSt. Rita'S Hospital10-23-2023 History of Present illness Narrative* Marry [...] 25, 2023 8:33 AM documented in this encounterSt. Rita'S Hospital10-23-2023 Miscellaneous Notes* Patient Education - Carmen [...] Department: HOSP MAIN [id number] documented in this encounterSt. Rita'S Hospital10-23-2023 History and physical note * Robinson [...] TIME: 8:01 AM PAGER: documented in this encounterSt. Rita'S Hospital10-23-2023 History of Present illness Narrative* Mike Hughes MD - 06/25/2023 12:00 AM EDT Images from the original note were not included. [facility] Department of Hematology and Medical Oncology Leukemia Program Princess Wilkes ID: [id number] 06/26/2023 PRIMARY CARE PHYSICIAN: Melissa Pierce MD [...] year old female with prior Stage 1 ([id number]) L breast invasive and DCIS,1.5 cm, grade 2, ER/NE positive and HER2 negative s/p L lumpectomy Sep 2013 followed by adjuvant RTto L breast completed 01/06/14. Oncotype Dx 13 - so no chemo was offered. She then completed 5 years of endocrine therapy from 01/2014 - 01/2019 - letrozole followed by tamoxifen (x1 year). She presented to the ER on 05/03/23 at [facility] with generalized weakness, dizziness, exertional [...] - 0.9 0.09 9.3 10 Darlyn - [phone] Past MHx: PAST MEDICAL HISTORY Diagnosis Date [...] with VKA drugs, such as warfarin, the [place] [employer] 2012 Guideline recommends [...] Chest 2012, 141:7S-47S Margo HORN, et al. [facility] 2017, 70: 252-289 Assessment and Plan: Ms. Princess Wilkes is a 67 year old female with prior Stage 1 ([id number]) L breast invasive and DCIS,1.5 cm, grade 2, ER/NE positive and HER2 negative s/p L lumpectomy [...] needed # Prior Breast CA Stage 1 (yF3iD8B7) L breast invasive and DCIS, 1.5 cm, grade 2, ER/NE positive and HER2 negative s/p L lumpectomy [...] which included preparing to see the patient, jqpl-xn-lupw patient care, completing clinical documentation, obtaining and/or reviewing separately obtained history, and performing a medically appropriate examination. Mike Hughes MD Hematology and Medical Oncology, Leukemia Division 06/25/23 cc: Mike Hughes [address] [facility] [address] Melissa Pierce MD [address] [place] [address] documented in this encounterSt. Rita'S Hospital10-20-2023 Miscellaneous Notes* Telephone Encounter - Agustina [...] SW for her assistance. documented in this encounterSt. Rita'S Hospital10-18-2023 Nurse Note* Edel Hobbs LPN - 06/20/2023 11:11 AM EDT Pre- e instructions: Contacted patient and confirmed appt. for bone marrow biopsy scheduled on 06/25/23, at [facility]. Diet: Do not eat solid food after [...] signed. Arrival at 6:30am to desk B-1 ([facility]) and check in for your procedure. Passenger Service Manager/Transportation: How will you be arriving for your procedure? Private car. If you will be arriving at [facility] via ambulance or public transportation, please call to discuss. You will need a responsible adult to accompany you to and from the procedure. Your truck driver helper is required to stay with you until you are taken into the Procedure room. Recovery expectations: You can expect to be at the hospital for the majority of the day. Please do not schedule any other appointments the day of your procedure. Written instructions provided to patient via [employer] If you have any questions please call [phone] documented in this encounterSt. Rita'S Hospital10-17-2023 Miscellaneous Notes* Telephone Encounter - Amrita [...] for this procedure: low risk. Reference from [employer] Scaling Machine Operator: [email or web address]/[email or web address] STAFF SIGNATURE: Gurmeet Webb MD DATE: June [...] PATIENT CONTACT INFORMATION: Best way to reach -[phone] SCHEDULING: Date: 06/25/2023 patient is scheduled for a standard marrow this day but required CT guided last time. Please call Estephanie RN at [phone] if any questions. (Specific requests must be [...] random biopsies do not need imaging.) IMAGING: [facility] (If the imaging was obtained outside the [facility] system, PLEASE upload for review prior to approval.) Note to all persons requesting biopsies: All biopsy requests will be scheduled as quickly as possible, based on the clinical urgency, availability of appointment times, the need to hold anti-thrombolytic therapy (aspirin and other blood thinners) and the patient s schedule, including the need for an available truck driver helper. If a percutaneous biopsy or drainage is not felt to be safe or an alternative method for establishing a diagnosis is possible, this will be discussed directly with the requesting physician. documented in this encounterSt. Rita'S Hospital10-14-2023 NoteHNO ID: [id number] Author: Note, Interface Service: ? Author Type: ? Type: Progress Notes Filed: 2023 2:15 AM Note Text: Epic Scheduled Downtime: 2023 1:00:00 AM to 2023 1:28:00 [facility]10-12-2023 [facility]10-12-2023 Miscellaneous Notes* Telephone Encounter - Mary Ohara LGC - 06/14/2023 1:24 PM EDT I left a voicemail for the patient including my contact information requesting that she return my call to discuss options for scheduling a genetic counseling visit. Mary Ohara MS, [facility], PhD Licensed, Certified Genetic Counselor documented in this encounterSt. Rita'S Hospital10-05-2023 [facility]10-04-2023 [facility]10-03-2023 [facility]10-03-2023 [facility]10-02-2023 Note [facility]10-02-[facility]10-01-2023 [facility]09-30-2023 [facility] 06-01-2023 [facility]09-29-2023 [facility]09-29-2023 [facility]09-29-2023 [facility]09-28-2023 Miscellaneous Notes* Telephone Encounter - Chika Lagos - 05/31/2023 2:54 PM EDT THE COMPLETED [employer] PATIENT ASSISTANCE APPLICATION FOR POSACONAZOLE WAS FAXED FOR CONSIDERATION. RECEIVED CALL FROM [employer] AND MORENITA SEARS, THE PATIENT WAS APPROVED FOR ASSISTANCE UNDER FOR THE DATES: 05/31/2023 - AT NO COST TO THE PATIENT. THE MEDICATION WILL BE MAILED DIRECTLY TO THE PATIENTS HOME ADDRESS WITHIN 3 TO 5 BUSINESS DAYS. EMAILED THE INFORMATION TO PRESCRIBER. documented in this encounterSt. Rita'S Hospital09-28-2023 [facility]Gre[facility]09-28-2023 [facility]09-28-2023 History of Past illness Narrative* Problem [...] Tylenol and d/c'd home > seen at [facility] on 05/28 by heme/onc and BMT who recommended admission for concerns for port infection > blood cxs x2 obtained -- NGTD > no fevers TOPSTITCHER ZIGZAG, 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; 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 > ID [...] of this encounter (statuses as of 06/14/2023) [facility] History of Past illness Narrative* Problem [...] Tylenol and d/c'd home > seen at [facility] on 05/28 by heme/onc and BMT who recommended admission for concerns for port infection > blood cxs x2 obtained -- NGTD > no fevers TOPSTITCHER ZIGZAG, 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; 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 > ID [...] of this encounter (statuses as of 06/20/2023) [facility] of Past illness Narrative* Problem [...] Tylenol and d/c'd home > seen at [facility] on 05/28 by heme/onc and BMT who recommended admission for concerns for port infection > blood cxs x2 obtained -- NGTD > no fevers TOPSTITCHER ZIGZAG, 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; 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 > ID [...] of this encounter (statuses as of 06/22/2023) [facility] of Past illness Narrative* Problem [...] Tylenol and d/c'd home > seen at [facility] on 05/28 by heme/onc and BMT who recommended admission for concerns for port infection > blood cxs x2 obtained -- NGTD > no fevers TOPSTITCHER ZIGZAG, 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; 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 > ID [...] of this encounter (statuses as of 06/26/2023) [facility] of Past illness Narrative* Problem [...] Tylenol and d/c'd home > seen at [facility] on 05/28 by heme/onc and BMT who recommended admission for concerns for port infection > blood cxs x2 obtained -- NGTD > no fevers TOPSTITCHER ZIGZAG, 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; 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 > ID [...] of this encounter (statuses as of 06/26/2023) [facility] of Past illness Narrative* Problem [...] Tylenol and d/c'd home > seen at [facility] on 05/28 by heme/onc and BMT who recommended admission for concerns for port infection > blood cxs x2 obtained -- NGTD > no fevers TOPSTITCHER ZIGZAG, 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; 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 > ID [...] of this encounter (statuses as of 07/02/2023) [facility] of Past illness Narrative* Problem [...] Tylenol and d/c'd home > seen at [facility] on 05/28 by heme/onc and BMT who recommended admission for concerns for port infection > blood cxs x2 obtained -- NGTD > no fevers TOPSTITCHER ZIGZAG, 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; 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 > ID [...] of this encounter (statuses as of 07/07/2023) [facility] Past illness Narrative* Problem [...] Tylenol and d/c'd home > seen at [facility] on 05/28 by heme/onc and BMT who recommended admission for concerns for port infection > blood cxs x2 obtained -- NGTD > no fevers TOPSTITCHER ZIGZAG, 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; 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 > ID [...] of this encounter (statuses as of 07/11/2023) 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 She initially presented to [place] emergency department and was subsequently transferred to [facility] for further evaluation. She was [...] revealed complex cytogenetics/an NGS AML profile by [employer] revealed the following mutations:RUNK1 F40Wfs*14, TP53 C238Y, and DNMT3A R635W. The patient had a right sided Port-A-Cath placed on 05/26/2023 and was initially anticipated to start Vidaza and venetoclax next week. However, the Port-A-Cath site became extremely tender with surrounding erythema. She was evaluated earlier today by Dr. Mike Hughes and our Leukemia Program here at the [facility] and subsequently was referred to me for a transplant regarding allogenic hematopoietic cell transplantation. At the time of her visit she noted having some prior diffuse pain for which she had been [facility] yesterday and received an [...] patient is and previously worked as a [employer] for 42 years and has been retired [...] on her extremities, erythema/tenderness around the right Jopc-B-Mveaznbi tracking down to the right upper breast but no other rash. . Impression/recommendation: In summary, Mrs. 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 Rita'S Hospital09-25-2023 [facility]09-25-2023 History of Present illness Narrative* Aurelia [...] transplant basics book provided by [facility]. Instructions provided to have siblings register online or call with provided information. Patient instructed to call Aurelia Hines RN , pager [phone] with any questions. Business card provided. Patient [...] search. Aurelia Hines RN documented in this encounterSt. Rita'S Hospital09-25-2023 Nurse Note* Cathleen Schuster LPN - 05/28/2023 1:26 PM EDT Reviewed and discussed nursing notes,vital signs,recent tests,,medications with the patient. documented in this encounterSt. Rita'S Hospital09-25-2023 [facility]04-21-2023 History of Present illness Narrative* Lynnette [...] wellness lab and EKG completed 12/06/22 at [facility]. * New Marks RN - 12/07/2022 1:28 PM EDT Attempted PAT phone call; no answer; message left to return PAT phone call. [facility] [employer] Work Phone: 1(622) 748-570604-21-2023 Hospital Discharge instructions* Discharge Instructions* Lynnette Malcolm [...] 1-2 weeks. Call the office if questions [phone] [facility] [employer] Phone: [phone]) 530-196601-09-2014 History of Past illness Narrative* Problem Noted Date Diagnosed Date Resolved Date Breast cancer 09/11/2013 05/28/2023 documented as of this encounter (statuses as of 05/28/2023) [facility] History of Past illness Narrative* Problem Noted Date Diagnosed Date Resolved Date Breast cancer 09/11/2013 05/28/2023 documented as of this encounter (statuses as of 05/29/2023) [facility] History of Past illness Narrative* Problem Noted Date Diagnosed Date Resolved Date Breast cancer 09/11/2013 05/28/2023 documented as of this encounter (statuses as of 06/01/2023) 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 Infection due to Port-A-Cath, initial encounter [facility] Diagnosis 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) [facility] Diagnosis 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 Diagnosis 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) 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 Summary Purpose Family History No Family [...] section and content) DATE CREATED AUTHOR 06/15/2021 [facility] DATE CREATED AUTHOR AUTHOR'S ORGANIZ ATION 08/17/2021 [facility] DATE CREATED AUTHOR AUTHOR'S ORGANIZ ATION 12/27/2022 [facility] DATE CREATED AUTHOR AUTHOR'S ORGANIZ ATION 05/25/2023 [facility] DATE CREATED AUTHOR AUTHOR'S ORGANIZ ATION 09/07/2023 [facility] EPIC DATE CREATED AUTHOR AUTHOR'S ORGANIZ ATION 09/30/2023 [facility] Reason for Visit (unrecogniz ed section and content) Specialty Diagnoses / Procedures Referred By Contac t Referred To Contact Diagnoses 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 Procedures NE EXC B9 LESION MRGN XCP SK TG T/A/L 0.5 CM/< ARM LESION BIOPSY EXCISION-INNER ARM LIPOMA Martha Malik I, DO [address] [facility] [address] [place] [address] [facility] [address] [place] [address] Referral ID Status Reason Start Date Expiration Date Visits Re quested Visits Authorized [id number] 1 1 Reason Comments Consult Reason Comments Biopsy Request Reason Comments Patient Question Reason Comments Established Patient Reason Comments Leukemia Reason Onset Date Comments Refill Request 08/07/2023 Reason Comments Patient Education (Transplant) BMT Plann ing Reason Onset Date Comments Refill Request 08/09/2023 Reason Comments Consent Presentation [id number] Reason Comments Appointment Ordered Prescriptions (unrec ognized [...] 12/20/2022 12/21/2022 12/22/2022 bupivacaine-EPINEPHrine PF (MARCAINE-w/EPINEPHRINE) 0.5% -[id number] injection (CANCELED) PRN, Starting on Sun12/22/22 at [...] Care Teams (unrecognized sec tion and content) Burning Supervisor Relationship Specialty Start Date End Date WonderMelissa cornad MD [address] [place] [address] PCP - General Family Medicine 11/17/22 Burning Supervisor Relationship Specialty Start Date End Date WonderMelissa conrad MD PCP - General Family Medicine 08/25/13 Burning Supervisor Relationship Specialty Start Date End Date WonderMelissa conrad MD PCP - General Family Medicine 08/25/13 Burning Supervisor Relationship Specialty Start Date End Date WonderMelissa conrad MD PCP - General Family Medicine 08/25/13 Burning Supervisor Relationship Specialty Start Date End Date WonderMelissa conrad MD PCP - General Family Medicine 08/25/13 Burning Supervisor Relationship Specialty Start Date End Date WonderMelissa conrad MD PCP - General Family Medicine 08/25/13 Mike Hughes MD [address] [place] [address] Physician Hematology/Oncology 06/19/23 Burning Supervisor Relationship Specialty Start Date End Date WonderMelissa conrad MD PCP - General Family Medicine 08/25/13 Mike Hughes MD [address] [place] [address] Physician Hematology/Oncology 06/19/23 Burning Supervisor Relationship Specialty Start Date End Date Melissa Pierce MD PCP - General Family Medicine 08/25/13 Mike Hughes MD [address] [place] [address] Physician Hematology/Oncology 06/19/23 Burning Supervisor Relationship Specialty Start Date End Date Melissa Pierce MD PCP - General Family Medicine 08/25/13 Mike Hughes MD [address] [place] [address] Physician Hematology/Oncology 06/19/23 Burning Supervisor Relationship Specialty Start Date End Date Melissa Pierce MD PCP - General Family Medicine 08/25/13 Mike Hughes MD [address] [place] [address] Physician Hematology/Oncology 06/19/23 Dania Hill, RN Specialty [place] Hematology/Oncology 06/28/23 Burning Supervisor Relationship Specialty Start Date End Date Melissa Pierce MD PCP - General Family Medicine 08/25/13 Mike Hughes MD [address] [place] [address] Physician Hematology/Oncology 06/19/23 Dania Hill RN Specialty [place] Hematology/Oncology 06/28/23 Burning Supervisor Relationship Specialty Start Date End Date Melissa Pierce MD PCP - General Family Medicine 08/25/13 Mike Hughes MD [address] [place] [address] Physician Hematology/Oncology 06/19/23 Dania Hill, MAMTA Specialty [place] Hematology/Oncology 06/28/23 Burning Supervisor Relationship Specialty Start Date End Date Melissa Pierce MD PCP - General Family Medicine 08/25/13 Mike Hughes MD [address] [place] [address] Physician Hematology/Oncology 06/19/23 Dania Hill, RN Specialty [place] Hematology/Oncology 06/28/23 [place] [address] [place] [address] Specialty [place] Blood and Marrow Transplant 08/06/23 [place] [address] [place] [address] Transplant Physician Blood and Marrow Transplant 08/06/23 Burning Supervisor Relationship Specialty Start Date End Date Melissa Pierce MD PCP - General Family Medicine 08/25/13 Mike Hughes MD [address] [place] [address] [id number] Physician Hematology/Oncology 06/19/23 Dania Hill, RN Specialty [place] Hematology/Oncology 06/28/23 Georgina Kumar, [place] [id number] [place] [address] Specialty [place] Blood and Marrow Transplant 08/06/23 [place] [address] [place] [id number] Transplant Physician Blood and Marrow Transplant 08/06/23 Burning Supervisor Relationship Specialty Start Date End Date Melissa Pierce MD PCP - General Family Medicine 08/25/13 [place] [address] [place] [address] [phone] Physician Hematology/Oncology 06/19/23 Dania Hill, RN Specialty [place] Hematology/Oncology 06/28/23 Georgina Kumar, MAMTA [address] [place] [address] Specialty [place] Blood and Marrow Transplant 08/06/23 [place] [address] [place] [address] Transplant Physician Blood and Marrow Transplant 08/06/23 Burning Supervisor Relationship Specialty Start Date End Date Melissa Pierce MD PCP - General Family Medicine 08/25/13 [place] [address] [place] [address] Physician Hematology/Oncology 06/19/23 Dania Hill, RN Specialty [place] Hematology/Oncology 06/28/23 [place] [address] [place] [id number] Specialty [place] Blood and Marrow Transplant 08/06/23 Brianna Pham MD [id number] [place], [place] [id number] Transplant Physician Blood and Marrow Transplant 08/06/23 Burning Supervisor Relationship Specialty Start Date End Date Melissa Pierce MD PCP - General Family Medicine 08/25/13 Mike Hughes MD [address] [place], [place] [phone] Physician Hematology/Oncology 06/19/23 Dania Hill, MAMTA Specialty [place] Hematology/Oncology 06/28/23 [place] [address] [place] [address] Specialty [place] Blood and Marrow Transplant 08/06/23 Brianna Pham MD [id number] [place] [address] Transplant Physician Blood and Marrow Transplant 08/06/23 Burning Supervisor Relationship Specialty Start Date End Date Melissa Pierce MD PCP - General Family Medicine 08/25/13 Mike Hughes MD [address] [place], [place] [id number] Physician Hematology/Oncology 06/19/23 Georgina Kumar, MAMTA [address] [place] [address] Specialty [place] Blood and Marrow Transplant 08/06/23 Brianna Pham MD [address] [place] [address] Transplant Physician Blood and Marrow Transplant 08/06/23 Sofya Schmid RN Specialty [place] Hematology/Oncology 08/09/23 Fidelina Shearer LISW [address] [place] [address] Blood and Marrow Transplant 08/09/23 Burning Supervisor Relationship Specialty Start Date End Date Melissa Pierce MD PCP - General Family Medicine 08/25/13 Mike Hughes MD [address] [place] [address] Physician Hematology/Oncology 06/19/23 [place] [address] [place] [address] Specialty [place] Blood and Marrow Transplant 08/06/23 Brianna Pham MD [address] [place] [address] Transplant Physician Blood and Marrow Transplant 08/06/23 Sofya Schmid RN Specialty [place] Hematology/Oncology 08/09/23 Fidelina Shearer LISW [address] [place] [address] Blood and Marrow Transplant 08/09/23 Burning Supervisor Relationship Specialty Start Date End Date Melissa Pierce MD PCP - General Family Medicine 08/25/13 Mike Hughes MD [address] [place] [address] Physician Hematology/Oncology 06/19/23 Georgina Kumar, MAMTA [address] [place] [address] Specialty [place] Blood and Marrow Transplant 08/06/23 [place] [address] [place] [address] Transplant Physician Blood and Marrow Transplant 08/06/23 Sofya Schmid RN Specialty [place] Hematology/Oncology 08/09/23 Fidelina Shearer LISW [address] [place] [address] Blood and Marrow Transplant 08/09/23 Burning Supervisor Relationship Specialty Start Date End Date Melissa Pierce MD PCP - General Family Medicine 08/25/13 Mike Hughes MD [address] [place], [place] [phone] Physician Hematology/Oncology 06/19/23 Dania Hill, MAMTA Specialty [place] Hematology/Oncology 06/28/23 08/08/23 [place] [address] [place] [address] Specialty [place] Blood and Marrow Transplant 08/06/23 [place] [address] [place] [address] Transplant Physician Blood and Marrow Transplant 08/06/23 Sofya Schmid RN Specialty [place] Hematology/Oncology 08/09/23 Fidelina Shearer LISW [address] [place], [place] [phone] Blood and Marrow Transplant 08/09/23 Burning Supervisor Relationship Specialty Start Date End Date Melissa Pierce MD PCP - General Family Medicine 08/25/13 Mike Hughes MD [address] [place], [place] [phone] Physician Hematology/Oncology 06/19/23 [place] [address] [place] [address] Specialty [place] Blood and Marrow Transplant 08/06/23 [place] [address] [place] [address] Transplant Physician Blood and Marrow Transplant 08/06/23 Sofya Schmid RN Specialty [place] Hematology/Oncology 08/09/23 Fidelina Shearer LISW [address] [place] [address] Blood and Marrow Transplant 08/09/23 Source Comments (unrecognize d section and content) In the event this informatio n is protected by the Federal Confidentiality of Alcohol and Drug Abuse Patient Records regulations: The Federal rules restrict any use of the information to criminally investigate or prosecute any alcohol or drug abuse patient.[facility] the event this information is protected by the Federal Confidentiality of Alcohol and Drug Abuse Patient Records regulations: The Federal rules restrict any use of the information to criminally investigate or prosecute any alcohol or drug abuse patient.[facility] the event this information is protected by the Federal Confidentiality of Alcohol and Drug Abuse Patient Records regulations: The Federal rules restrict any use of the information to criminally investigate or prosecute any alcohol or drug abuse patient.[facility] the event this information is protected by the Federal Confidentiality of Alcohol and Drug Abuse Patient Records regulations: The Federal rules restrict any use of the information to criminally investigate or prosecute any alcohol or drug abuse patient.[facility] the event this information is protected by the Federal Confidentiality of Alcohol and Drug Abuse Patient Records regulations: The Federal rules restrict any use of the information to criminally investigate or prosecute any alcohol or drug abuse patient.[facility] the event this information is protected by the Federal Confidentiality of Alcohol and Drug Abuse Patient Records regulations: The Federal rules restrict any use of the information to criminally investigate or prosecute any alcohol or drug abuse patient.[facility] the event this information is protected by the Federal Confidentiality of Alcohol and Drug Abuse Patient Records regulations: The Federal rules restrict any use of the information to criminally investigate or prosecute any alcohol or drug abuse patient.[facility] the event this information is protected by the Federal Confidentiality of Alcohol and Drug Abuse Patient Records regulations: The Federal rules restrict any use of the information to criminally investigate or prosecute any alcohol or drug abuse patient.[facility] the event this information is protected by the Federal Confidentiality of Alcohol and Drug Abuse Patient Records regulations: The Federal rules restrict any use of the information to criminally investigate or prosecute any alcohol or drug abuse patient.[facility] the event this information is protected by the Federal Confidentiality of Alcohol and Drug Abuse Patient Records regulations: The Federal rules restrict any use of the information to criminally investigate or prosecute any alcohol or drug abuse patient.[facility] the event this information is protected by the Federal Confidentiality of Alcohol and Drug Abuse Patient Records regulations: The Federal rules restrict any use of the information to criminally investigate or prosecute any alcohol or drug abuse patient.[facility] the event this information is protected by the Federal Confidentiality of Alcohol and Drug Abuse Patient Records regulations: The Federal rules restrict any use of the information to criminally investigate or prosecute any alcohol or drug abuse patient.[facility] the event this information is protected by the Federal Confidentiality of Alcohol and Drug Abuse Patient Records regulations: The Federal rules restrict any use of the information to criminally investigate or prosecute any alcohol or drug abuse patient.[facility] the event this information is protected by the Federal Confidentiality of Alcohol and Drug Abuse Patient Records regulations: The Federal rules restrict any use of the information to criminally investigate or prosecute any alcohol or drug abuse patient.[facility] the event this information is protected by the Federal Confidentiality of Alcohol and Drug Abuse Patient Records regulations: The Federal rules restrict any use of the information to criminally investigate or prosecute any alcohol or drug abuse patient.[facility] the event this information is protected by the Federal Confidentiality of Alcohol and Drug Abuse Patient Records regulations: The Federal rules restrict any use of the information to criminally investigate or prosecute any alcohol or drug abuse patient.[facility] the event this information is protected by the Federal Confidentiality of Alcohol and Drug Abuse Patient Records regulations: The Federal rules restrict any use of the information to criminally investigate or prosecute any alcohol or drug abuse patient.[facility] Hospital[facility] the event this information is protected by the Federal Confidentiality of Alcohol and Drug Abuse Patient Records regulations: The Federal rules restrict any use of the information to criminally investigate or prosecute any alcohol or drug abuse patient.[facility] Hospital[facility] the event this information is protected by the Federal Confidentiality of Alcohol and Drug Abuse Patient Records regulations: The Federal rules restrict any use of the information to criminally investigate or prosecute any alcohol or drug abuse patient.[facility] Hospital[facility] the event this information is protected by the Federal Confidentiality of Alcohol and Drug Abuse Patient Records regulations: The Federal rules restrict any use of the information to criminally investigate or prosecute any alcohol or drug abuse patient.[facility] Hospital[facility] the event this information is protected by the Federal Confidentiality of Alcohol and Drug Abuse Patient Records regulations: The Federal rules restrict any use of the information to criminally investigate or prosecute any alcohol or drug abuse patient.[facility] Hospital[facility] the event this information is protected by the Federal Confidentiality of Alcohol and Drug Abuse Patient Records regulations: The Federal rules restrict any use of the information to criminally investigate or prosecute any alcohol or drug abuse patient.[facility] FOR RECORDS PERTAINING TO PATIENTS WHO [...] BE BASED ON THE PRIMARY CLINICAL RECORDS. [facility] [employer] [facility]. provides no warranty or guarantee of the accuracy or completeness of information in this document.
[2023-10-01] MEDS: OLANZapine 5 MG TABLET 2.5 MG PO (21:41)
[2023-10-01] MEDS: ACETAMINOPHEN 650 MG RECTAL SUPPOSITORY PR (22:10)
[2023-10-02] VITALS (13 sets, daily range): BP systolic 135–145; BP diastolic 72–86; PULSE 81–88; RESP 18; TEMP 36.6–39.2; O2SAT 91–95
[2023-10-02] MEDS: PROMETHAZINE HCL 25 MG/ML VIAL 12.5 MG IV (00:09)
[2023-10-02] MEDS: METOCLOPRAMIDE HCL 10 MG/2 ML VIAL IVP (00:09)
[2023-10-02] MEDS: LACTATED RINGER'S SOLUTION 1,000 ML 75 ML IV ×2 (00:10→13:11)
[2023-10-02] MEDS: KETOROLAC TROMETHAMINE 30 MG/ML VIAL 15 MG IVP ×2 (00:10→04:47)
[2023-10-02] MEDS: PIPERACILLIN SODIUM/TAZOBACTAM 3.375 GM in 0.9 % SODIUM CHLORIDE 50 ML IV ×3 (02:11→21:02)
[2023-10-02 05:52] LABS: Hemoglobin 7.3 g/dL (12.0-16.0); Mean Corpuscular HGB Conc 34.3 g/dL (29.9-35.2); Mean Corpuscular Hemoglobin 31.1 pg (26.7-34.0); Mean Corpuscular Volume 90.6 fL (81.0-99.0); Mean Platelet Volume 12.5 fL (9.5-13.5); Red Blood Count 2.35 10^6/uL (4.20-5.40); Red Cell Distribution Width 18.1 % (11.0-15.0)
[2023-10-02 06:22] LABS: Alanine Aminotransferase 35 U/L (14-59); Albumin Globulin Ratio 0.9; Albumin Level 2.8 g/dL (3.4-5.0); Alkaline Phosphatase 87 U/L (46-116); Anion Gap 11.3; Aspartate Amino Transferase 23 U/L (15-37); BUN Creatinine Ratio 10.8; Bilirubin Total 0.6 mg/dL (0.2-1.0); Calcium 8.7 mg/dL (8.5-10.1); Carbon Dioxide 26.2 mmol/L (21.0-32.0); Chloride 105 mmol/L (98-107); Estimated GFR (African America >60 (>=60); Estimated GFR (Non-African Ame >60 (>=60); Glucose 120 mg/dL (74-106); Potassium 3.5 mmol/L (3.5-5.1); Sodium 139 mmol/L (136-145); Total Protein 5.8 g/dL (6.4-8.2)
[2023-10-02 06:36] LABS: Hematocrit 21.3 % (36.0-48.0); Platelet Count 24 10^3/uL (150-450); White Blood Count 0.4 10^3/uL (4.0-11.0)
[2023-10-02 07:38] LABS: PROCALCITONIN <0.05 ng/mL (0.00-0.50)
--- NOTE | 2023-10-02 07:48 | PM.CN ---
Consult Note: [facility] Data of Consult Consult date: 10/02/23 Requesting Physician: Ranjana Jenkins NP Primary Care Provider: PEDRO PIERCE Consult Narrative Reason for consult: AML, neutropenic fever after transfusion Narrative: This is a 68-year-old female patient who notes a remote hx of breast cancer, dx in Aug 2013. She underwent lumpectomy and radiation therapy. She did not require chemotherapy. She completed 5 years of letrozole therapy. She also reports hx of JE-BSO. She developed fairly rapid onset fatigue and exhaustion. She noted prominent decline in her activity level. She developed DE [place] CRUZ and ecchymoses. Her blood work from late Apr 2023 showed WBC 1.5, Hgb 8.4, MCV 105.1, plt 24K. She had severely abnormal differential. She underwent bone marrow biopsy coordinated by our office, on May 08, 2023. 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 Her care is coordinated with Dr Hughes at [facility]. She initiated cycle #1 Vidaza and Venclexta on 06/01/2023 via PICC line. She receives prophylaxis with levaquin, acyclovir, and posaconazole antifungal. She has now completed 3 cycles of Vidaza and Venclexta (dates are below). She is currently in the middle of cycle #4 Vidaza and Venclexta started on 09/10/2023. She was seen in our office on 09/25/2023. She received 1 unit of platelets and developed a fever up to 101' - 102' about an hour after her transfusion. She also had chills. She returned to the ED for further evaluation. Workup in the ED revealed pancytopenia at the patient's baseline, fever of 102.8, COVID and flu swabs were negative and she had a normal procalcitonin. Her UA was also negative as was a chest x-ray. Due to labs showing leukopenia / neutropenia, she is admitted for neutropenic fever, panculture, and empiric Abx. Treatments to date: 06/01/2023 - cycle 1 Vidaza + Venclexta d1-7 07/02/2023 - cycle 2 Vidaza + Venclexta d1-7 08/06/2023 - cycle 3 Vidaza + Venclexta d1-7 09/10/2023 - cycle 4 Vidaza + Venclexta d1-14 Her treatment in the past few months has been complicated by two admissions (diverticulitis, neutropenic fever). Today, at the bedside, patient notes that her fever has resolved. She is on Zosyn and vancomycin. Her blood cultures have returned positive for Strep, multiple bottles. Her sensitivities are pending. Her labs show WBC 0.4, Hgb 7.3 g/dL, plt 24K. She denies major bruising / bleeding. I discussed removal of PICC line. I discussed continuing IV Abx. We will keep her Hgb > 7 g/dL and her plt > 20K. We will try to transition to oral Abx tomorrow, with possible discharge, prior to her bone marrow biopsy on , 10/04/2023, if possible. I discussed above plan with hospitalist team, Dr Mason, and RN. ECOG PS 2-3. cc:: CC: Ranjana Jenkins NP Review of Systems ROS Narrative A comprehensive 12 point review of systems was conducted and is negative other than that reported in the history of present illness. [facility] Medical History (Updated 10/02/23 @ 13:13 by Ranjana Jenkins NP) Colitis ?K52.9 - Noninfective gastroenteritis and colitis, unspecified (ICD-10) Generalized pain ?R52 - Pain, unspecified (ICD-10) Thrombocytopenia ?D69.6 - Thrombocytopenia, unspecified (ICD-10) Anemia ?D64.9 - Anemia, unspecified (ICD-10) Pancytopenia ?D61.818 - Other pancytopenia (ICD-10) GERD (gastroesophageal reflux disease) ?K21.9 - Gastro-esophageal reflux disease without esophagitis (ICD-10) Depression ?F32.A - Depression, unspecified (ICD-10) History of blood transfusion ?Z92.89 - Personal history of other medical treatment (ICD-10) 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 - Intraductal carcinoma in situ of left breast (ICD-10) Myeloid leukemia ?C92.90 - Myeloid leukemia, unspecified, not having achieved remission (ICD-10) Symptomatic anemia ?D64.9 - Anemia, unspecified (ICD-10) Surgical History History of bone marrow biopsy ?Z98.890 - Other specified postprocedural states (ICD-10) S/P excision of lipoma ?Z98.890 - Other specified postprocedural states (ICD-10) ?Z86.018 - Personal history of other benign neoplasm (ICD-10) History of hysterectomy ?Z90.710 - Acquired absence of both cervix and uterus (ICD-10) Family History Father Family history of cancer Family history of hypertension Mother Family history of hypertension Grandfather Family history of cancer Grandmother Family history of cancer Aunt Family history of cancer Social History Within the past year, how often did you have a drink containing alcohol: monthly or less Within the past year, how many standard drinks containing alcohol did you have on a typical day: 1 or 2 Total score: 0 Score interpretation: A score less than 3 is consistent with normal alcohol consumption. Smoking status: Never smoker Do you think of yourself as: straight/heterosexual Gender Identity: female Meds Home Medications and Allergies Home Medications Medication Instructions Recorded Confirmed Type bupropion HCl 75 mg tablet 75 mg PO BID 05/03/23 10/01/23 History omeprazole 20 mg capsule,delayed 20 mg PO DAILY 05/03/23 10/01/23 History release acyclovir 400 mg tablet 400 mg PO BID 05/25/23 10/01/23 History levofloxacin 500 mg tablet 500 mg PO DAILY 06/18/23 10/01/23 History olanzapine 2.5 mg tablet 2.5 mg PO .QHS 06/18/23 10/01/23 History posaconazole 100 mg tablet,delayed 300 mg PO DAILY 06/18/23 10/01/23 History release (Noxafil) loratadine 10 mg tablet (Claritin) 10 mg PO Q24H PRN allergic symptoms 07/11/23 10/01/23 History ondansetron 4 mg disintegrating 4 mg PO Q6H PRN nausea and vomiting 07/11/23 10/01/23 History tablet magnesium hydroxide 400 mg/5 mL 5 ml PO DAILY PRN constipation 10/01/23 10/01/23 History oral suspension (Milk of Magnesia) sennosides 8.6 mg-docusate sodium 1 tab-cap PO DAILY 10/01/23 10/01/23 History 50 mg tablet (Senna-S) Allergies Allergy/AdvReac Type Severity Reaction Status Date / Time hydrocodone [From Vicodin] AdvReac Verified 09/23/23 10:31 Exam Narrative Exam Narrative: Common normals: no apparent distress, oriented x3, alert and well nourished General appearance: cooperative Orientation/consciousness: Yes awake HENMT Common normals: normocephalic, head/scalp atraumatic, hearing grossly normal bilaterally, external nose normal and moist oral mucous membranes Eye Common normals: PERRL, EOMs intact bilaterally, conjunctivae normal and no scleral icterus Alignment: alignment normal Eyelid: eyelids normal Neck & C-Spine Common normals: full ROM, supple and no JVD Chest Common normals: inspection of chest normal Chest: symmetrical chest wall rise Respiratory Common normals: normal respiratory effort, no retractions, no use of accessory muscles and clear to auscultation bilaterally Effort & inspection: able to speak in complete sentences Cardio Common normals: no JVD, regular rate, regular rhythm, S1 normal heart sound, S2 normal heart sound, no gallops, no clicks, no murmurs, no rub and peripheral pulses 2+ throughout GI Common normals: Normal to inspection, nondistended, normoactive bowel sounds present, soft to palpation, non-tender, no hepatosplenomegaly, no masses and no bruits Bladder/kidney exam: bladder normal to palpation Extremity Common normals: normal capillary refill General: normal exam except as noted and edema (Tr-1+ bilat insteps and ankles); no clubbing and no cyanosis Neuro [place] Coma Scale: GCS not evaluated Common normals: CN's II-XII intact bilaterally, moves all extremities, no focal motor deficits and no sensory deficits noted Speech: speech normal Motor exam: strength 5/5 throughout Psych Common normals: mental status grossly normal, thought process normal, affect normal and activity/motor behavior normal Constitutional Vital Signs, click to edit/add: Last Vital Signs Temp 100.5 F H 10/02/23 04:52 Pulse 88 10/02/23 04:52 Resp 18 10/02/23 04:52 BP 144/86 H 10/02/23 04:52 Pulse Ox 95 10/02/23 04:52 O2 Del Method Room Air 10/02/23 04:52 Results Labs Labs: Short CBC 10/01/23 10/02/23 Range/Units 17:20 04:35 WBC 0.3 L* 0.4 L* (4.0-11.0) 10^3/uL Hgb 7.6 L 7.3 L (12.0-16.0) g/dL Hct 22.1 L* 21.3 L* (36.0-48.0) % Plt Count 24 L* 24 L* (150-450) 10^3/uL BMP 10/01/23 10/02/23 17:23 04:35 Sodium 135 L 139 Potassium 3.3 L 3.5 Chloride 101 105 Carbon Dioxide 25.6 26.2 BUN 8.0 9.0 Creatinine 0.79 0.83 Glucose 124 H 120 H Calcium 8.5 8.7 Liver Function 10/02/23 Range/Units 04:35 Total Bilirubin 0.6 (0.2-1.0) mg/dL AST 23 (15-37) U/L ALT 35 (14-59) U/L Alkaline Phosphatase 87 (46-116) U/L Albumin 2.8 L (3.4-5.0) g/dL Urine 10/01/23 Range/Units 17:35 Urine Color Lt. yellow (YELLOW) Urine Clarity Clear (CLEAR) Urine pH 7.5 (5.0-9.0) Ur Specific [place] 1.020 (1.005-1.025) Urine Protein Negative (NEG/TRACE) mg/dL Urine Glucose (UA) Negative (NEGATIVE) mg/dL Assessment and Plan Assessment and Plan (1) Neutropenic fever: (2) AML (acute myeloblastic leukemia): Plan Assessment / Plan: Princess Wilkes is a 68-year-old female with remote hx of breast cancer (in remission), now undergoing treatment for AML leukemia (with complex cytogenetics), with Vidaza and Venclexta. She has pancytopenia from leukemia (and chemotherapy), and is now admitted with neutropenic fever / Strep bacteremia. Impression: # AML leukemia, with complex cytogenetics # Pancytopenia from AML # Neutropenic fever # Strep bacteremia # Hx of breast cancer in remission PLAN: - labs, imaging, microbiology data reviewed. - discussed with Dr Hughes at [facility], and also RN at the bedside. - I discussed removal of PICC line. - I agree with Abx zosyn and vancomycin. - We will keep her Hgb > 7 g/dL and her plt > 20K. All products are irradiated or psoralen treated. - We can likely transition to oral Abx tomorrow (e.g. cefdinir 300 mg bid), based on sensitivities, with possible discharge, prior to her bone marrow biopsy on , 10/04/2023, if possible. - When she completes cefdinir, she can return to levaquin ppx dosing. - her cycle #5 Vidaza and Venclexta may be delayed by a week. I will discuss with Dr Hughes at [facility]. - continue other ppx meds, including acyclovir and posaconazole antifungal - I discussed above plan with hospitalist team, Dr Mason, and RN. Thank you for the consult. Will continue to follow. Sherry Macdonald MD Hematology Oncology
[2023-10-02 08:34] LABS: A. calcoaceticus-baumannii Cpx NOT DETECTED (NOT DETECTE); Bacteroides fragilis NOT DETECTED (NOT DETECTE); Candida albicans NOT DETECTED (NOT DETECTE); Candida auris NOT DETECTED (NOT DETECTE); Candida glabrata NOT DETECTED (NOT DETECTE); Candida krusei NOT DETECTED (NOT DETECTE); Candida parapsilosis NOT DETECTED (NOT DETECTE); Candida tropicalis NOT DETECTED (NOT DETECTE); Cryptococcus neoformans/gattii NOT DETECTED (NOT DETECTE); Enterobacter cloacae complex NOT DETECTED (NOT DETECTE); Enterobacterales NOT DETECTED (NOT DETECTE); Enterococcus faecalis NOT DETECTED (NOT DETECTE); Enterococcus faecium NOT DETECTED (NOT DETECTE); Haemophilus influenzae NOT DETECTED (NOT DETECTE); Klebsiella aerogenes NOT DETECTED (NOT DETECTE); Klebsiella pneumoniae group NOT DETECTED (NOT DETECTE); Listeria monocytogenes NOT DETECTED (NOT DETECTE); Neisseria meningitidis NOT DETECTED (NOT DETECTE); Proteus spp. NOT DETECTED (NOT DETECTE); Pseudomonas aeruginosa NOT DETECTED (NOT DETECTE); Salmonella spp. NOT DETECTED (NOT DETECTE); Serratia marcescens NOT DETECTED (NOT DETECTE); Source BLOOD; Staphylococcus epidermidis NOT DETECTED (NOT DETECTE); Staphylococcus lugdunensis NOT DETECTED (NOT DETECTE); Staphylococcus spp. NOT DETECTED (NOT DETECTE); Stenotrophomonas maltophilia NOT DETECTED (NOT DETECTE); Streptococcus agalactiae NOT DETECTED (NOT DETECTE); Streptococcus pneumoniae NOT DETECTED (NOT DETECTE); Streptococcus pyogenes NOT DETECTED (NOT DETECTE)
[2023-10-02 08:37] LABS: Streptococcus spp. DETECTED (NOT DETECTE)
--- NOTE | 2023-10-02 10:01 | P.HP_ITS ---
<Statement entered by Deanna Mason, - 10/02/23 17:11> This documentation has been reviewed and approved. The patient has also been seen and evaluated by me as well as the chart, labs. I agree with the above assessment and plan. H&P: HPI History of Present Illness Chief complaint: Fever Narrative: 10/02/23 0935 This is a 68-year-old female patient with a past medical history as outlined below including acute myeloblastic leukemia currently undergoing rounds of chemotherapy in preparation for a bone marrow transplant at the [facility] later this spring, persistent pancytopenia requiring frequent PRBC and platelet transfusions, and chronic prophylactic infection therapy with Levaquin, acyclovir, and posaconazole; who presented to the ED yesterday evening after receiving a platelet transfusion earlier in the afternoon. The patient reports that as she was on her way home from her transfusion she began to feel just terrible . She reports onset of chills and then vomiting. She returned to the ED for further evaluation. Workup in the ED revealed pancytopenia at the patient's baseline, fever of 102.8, COVID and flu swabs were negative and she had a normal procalcitonin. Her UA was also negative as was a chest x-ray. She was initially admitted to observation by the hospitalist service yesterday evening for close monitoring for neutropenic fever at the request of her outpatient oncologist, Dr. Macdonald as he was concerned for a possible transfusion reaction. ED documentation notes that she has a bone biopsy scheduled at the [facility] on 10/04/23. At the time of my exam the patient is resting comfortably in bed visiting with her spouse. She reports feeling much better . She experienced several bouts of emesis overnight but that is completely resolved and she denies any further nausea. She continued to have a low-grade temperatures overnight but her fever has resolved at the time of my exam. She was initiated on IVPB Zosyn in the ED which we have continued. Unfortunately blood cultures obtained overnight revealed bacteremia with strep species in all bottles (4/4). One set of 2 bottles was obtained from her current PICC line and thus we have to assume seeding of her PICC line. After discussion with Dr. Macdonald this morning, we will DC the patient's PICC line and culture the tip. For now we will administer antibiotics via peripheral IV and Dr. Macdonald will arrange for replacement of the PICC line when clinically indicated. We have added double gram-positive coverage with IVPB Vanco for her strep bacteremia in a neutropenic patient. We have changed her admission to a full inpatient. Review of Systems ROS Status of ROS 10 or more systems reviewed and unremark able except as noted in history and below [facility] Medical History (Updated 10/02/23 @ 13:13 by Ranjana Jenkins NP) Colitis ?K52.9 - Noninfective gastroenteritis and colitis, unspecified (ICD-10) Generalized pain ?R52 - Pain, unspecified (ICD-10) Thrombocytopenia ?D69.6 - Thrombocytopenia, unspecified (ICD-10) Anemia ?D64.9 - Anemia, unspecified (ICD-10) Pancytopenia ?D61.818 - Other pancytopenia (ICD-10) GERD (gastroesophageal reflux disease) ?K21.9 - Gastro-esophageal reflux disease without esophagitis (ICD-10) Depression ?F32.A - Depression, unspecified (ICD-10) History of blood transfusion ?Z92.89 - Personal history of other medical treatment (ICD-10) 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 - Intraductal carcinoma in situ of left breast (ICD-10) Myeloid leukemia ?C92.90 - Myeloid leukemia, unspecified, not having achieved remission (ICD- 10) Symptomatic anemia ?D64.9 - Anemia, unspecified (ICD-10) Surgical History History of bone marrow biopsy ?Z98.890 - Other specified postprocedural states (ICD-10) S/P excision of lipoma ?Z98.890 - Other specified postprocedural states (ICD-10) ?Z86.018 - Personal history of other benign neoplasm (ICD-10) History of hysterectomy ?Z90.710 - Acquired absence of both cervix and uterus (ICD-10) Family History Father Family history of cancer Family history of hypertension Mother Family history of hypertension Grandfather Family history of cancer Grandmother Family history of cancer Aunt Family history of cancer Social History Within the past year, how often did you have a drink containing alcohol: monthly or less Within the past year, how many standard drinks containing alcohol did you have on a typical day: 1 or 2 Total score: 0 Score interpretation: A score less than 3 is consistent with normal alcohol consumption. Smoking status: Never smoker Do you think of yourself as: straight/heterosexual Gender Identity: female Meds Home Medications and Allergies Home Medications Medication Instructions Recorded Confirmed Type bupropion HCl 75 mg tablet 75 mg PO BID 05/03/23 10/01/23 History omeprazole 20 mg capsule,delayed 20 mg PO DAILY 05/03/23 10/01/23 History release acyclovir 400 mg tablet 400 mg PO BID 05/25/23 10/01/23 History levofloxacin 500 mg tablet 500 mg PO DAILY 06/18/23 10/01/23 History olanzapine 2.5 mg tablet 2.5 mg PO .QHS 06/18/23 10/01/23 History posaconazole 100 mg tablet,delayed 300 mg PO DAILY 06/18/23 10/01/23 History release (Noxafil) loratadine 10 mg tablet (Claritin) 10 mg PO Q24H PRN allergic symptoms 07/11/23 10/01/23 History ondansetron 4 mg disintegrating 4 mg PO Q6H PRN nausea and vomiting 07/11/23 10/01/23 History tablet magnesium hydroxide 400 mg/5 mL 5 ml PO DAILY PRN constipation 10/01/23 10/01/23 History oral suspension (Milk of Magnesia) sennosides 8.6 mg-docusate sodium 1 tab-cap PO DAILY 10/01/23 10/01/23 History 50 mg tablet (Senna-S) Allergies Allergy/AdvReac Type Severity Reaction Status Date / Time hydrocodone [From Vicodin] AdvReac Verified 09/23/23 10:31 Exam Constitutional Vital Signs, click to edit/add: Last Vital Signs Temp 100.5 F H 10/02/23 04:52 Pulse 88 10/02/23 04:52 Resp 18 10/02/23 04:52 BP 144/86 H 10/02/23 04:52 Pulse Ox 95 10/02/23 04:52 O2 Del Method Room Air 10/02/23 04:52 Common normals: no apparent distress, oriented x3, alert and well nourished General appearance: cooperative Orientation/consciousness: Yes awake HENMT Common normals: normocephalic, head/scalp atraumatic, hearing grossly normal bilaterally, external nose normal and moist oral mucous membranes Eye Common normals: PERRL, EOMs intact bilaterally, conjunctivae normal and no scleral icterus Alignment: alignment normal Eyelid: eyelids normal Neck & C-Spine Common normals: full ROM, supple and no JVD Chest Common normals: inspection of chest normal Chest: symmetrical chest wall rise Respiratory Common normals: normal respiratory effort, no retractions, no use of accessory muscles and clear to auscultation bilaterally Effort & inspection: able to speak in complete sentences Cardio Common normals: no JVD, regular rate, regular rhythm, S1 normal heart sound, S2 normal heart sound, no gallops, no clicks, no murmurs, no rub and peripheral pulses 2+ throughout GI Common normals: Normal to inspection, nondistended, normoactive bowel sounds present, soft to palpation, non-tender, no hepatosplenomegaly, no masses and no bruits Bladder/kidney exam: bladder normal to palpation Extremity Common normals: normal capillary refill General: normal exam except as noted and edema (Tr-1+ bilat insteps and ankles); no clubbing and no cyanosis Neuro [place] Coma Scale: GCS not evaluated Common normals: CN's II-XII intact bilaterally, moves all extremities, no focal motor deficits and no sensory deficits noted Speech: speech normal Motor exam: strength 5/5 throughout Psych Common normals: mental status grossly normal, thought process normal, affect normal and activity/motor behavior normal Results Labs Labs: Short CBC 10/01/23 10/02/23 Range/Units 17:20 04:35 WBC 0.3 L* 0.4 L* (4.0-11.0) 10^3/uL Hgb 7.6 L 7.3 L (12.0-16.0) g/dL Hct 22.1 L* 21.3 L* (36.0-48.0) % Plt Count 24 L* 24 L* (150-450) 10^3/uL BMP 10/01/23 10/02/23 17:23 04:35 Sodium 135 L 139 Potassium 3.3 L 3.5 Chloride 101 105 Carbon Dioxide 25.6 26.2 BUN 8.0 9.0 Creatinine 0.79 0.83 Glucose 124 H 120 H Calcium 8.5 8.7 Liver Function 10/02/23 Range/Units 04:35 Total Bilirubin 0.6 (0.2-1.0) mg/dL AST 23 (15-37) U/L ALT 35 (14-59) U/L Alkaline Phosphatase 87 (46-116) U/L Albumin 2.8 L (3.4-5.0) g/dL Urine 10/01/23 Range/Units 17:35 Urine Color Lt. yellow (YELLOW) Urine Clarity Clear (CLEAR) Urine pH 7.5 (5.0-9.0) Ur Specific [place] 1.020 (1.005-1.025) Urine Protein Negative (NEG/TRACE) mg/dL Urine Glucose (UA) Negative (NEGATIVE) mg/dL Pulse Oximetry Attestation: I have reviewed the pertinent pulse oximetry results. Imaging Chest x-ray: Attestation: I have reviewed the pertinent imaging results. Radiologist's impression: IMPRESSION: No acute cardiopulmonary abnormality. Assessment and Plan Assessment and Plan (1) Bacteremia associated with intravascular line: Assessment and Plan: ACUTE * Adm inpatient today (initially Obs admission last night). * Plan at least 2 midnight stay total for IVPB ABX and close monitoring of labs, specialty Heme/onc consult. * Continue IVPB Zosyn as initiated in the ED. * Add Vancomycin w/ pharmacy to dose for double gram pos coverage in a neutropenic pt w/ bacteremia. * Repeat BC in AM to confirm neg cultures after ABX treatment * Initial ID will likely be available tomorrow (10/03), but sensitivities will not be available until at least 10/04/23 * Pt and Dr Macdonald would her to be able to go to [facility] as scheduled on 10/04 for her bone biopsy. * This will likely require continued empiric PO treatment pending final sensitivities * D/C PICC - OK w/ Dr Macdonald * Culture tip * Insert peripheral line for now * Dr Macdonald will manage replacement of the PICC line as an outpatient * CBC, CMP daily (2) Neutropenic fever: Assessment and Plan: ACUTE * 2/2 bacteremia and/or acute platelet transfusion reaction (less likely in presence of bacteremia) * C/S Dr Macdonald - we appreciate his assistance with this pt's care * ABX as above (3) AML (acute myeloblastic leukemia): Assessment and Plan: CHRONIC * Pt currently undergoing OP chemotherapy treatment in preparation for a bone marrow transplant soon * Repeat bone biopsy scheduled later this week (10/04/23) * Follows with Dr Hughes ([facility]) and Dr Macdonald * Defer to outpatient managment (4) Pancytopenia: Assessment and Plan: CHRONIC * 2/2 AML * Per Dr Macdonald: * Hgb goal > 7.0. Currently above goal * Plt goal > 10. Currently above goal * Repeat platelet transfusion planned on the day of bone biopsy or the evening before - Dr Macdonald to manage
--- NOTE | 2023-10-02 12:27 | CM.NOTE ---
Rounds made with Dr. Mason, no discharge for today. Dr. Macdonald consulted for further recommendations.
[2023-10-02] MEDS: ACYCLOVIR 200 MG CAPSULE 400 MG PO ×2 (13:10→21:03)
[2023-10-02] MEDS: BUPROPION HCL 75 MG TABLET PO ×2 (13:10→21:03)
[2023-10-02] MEDS: L. ACIDOPHILUS/L.BULGARICUS 1 PACKET GRAN.PACK PO ×2 (13:10→21:23)
[2023-10-02] MEDS: ONDANSETRON 4 MG RAPDIS TABLET PO ×2 (13:10→21:03)
--- NOTE | 2023-10-02 14:10 | SWNOTE1 ---
SW met with pt to discuss dc needs. Pt lives at home with her spouse. Pt is independent at home. Pt denies having any discharge needs at this time. SW to follow as needed.
[2023-10-02] MEDS: VANCOMYCIN HCL 1,000 MG in 0.9 % SODIUM CHLORIDE 250 ML 250 MG IV (14:22)
--- NOTE | 2023-10-02 15:35 | CM.NOTE ---
Important Message From Medicare discussed with pt, pt verbalizes understanding and signs paper. Original given to pt and copy placed on pt's chart.
[2023-10-02] MEDS: ACETAMINOPHEN 1,000 MG/100 ML PREMIX 400 MG IV (16:12)
[2023-10-02] MEDS: SENNOSIDES/DOCUSATE SODIUM 1 TAB TABLET 2 TAB PO (21:03)
[2023-10-02] MEDS: MAGNESIUM HYDROXIDE 2,400 MG/10 ML ORAL.SUSP 3600 MG PO (21:03)
[2023-10-02] MEDS: OLANZapine 5 MG TABLET 2.5 MG PO (21:04)
[2023-10-03] VITALS (19 sets, daily range): BP systolic 122–177; BP diastolic 70–84; PULSE 67–97; RESP 18–20; TEMP 36.5–37.7; O2SAT 88–95; BMI 39.6
[2023-10-03] MEDS: VANCOMYCIN HCL 1,000 MG in 0.9 % SODIUM CHLORIDE 250 ML 250 MG IV ×2 (01:03→14:53)
[2023-10-03] MEDS: LACTATED RINGER'S SOLUTION 1,000 ML 75 ML IV (03:17)
[2023-10-03] MEDS: PIPERACILLIN SODIUM/TAZOBACTAM 3.375 GM in 0.9 % SODIUM CHLORIDE 50 ML IV ×3 (04:17→23:03)
[2023-10-03] MEDS: BUPROPION HCL 75 MG TABLET PO ×2 (08:58→22:51)
[2023-10-03] MEDS: OMEPRAZOLE 20 MG CAPSULE.DR PO (08:58)
[2023-10-03] MEDS: ACYCLOVIR 200 MG CAPSULE 400 MG PO ×2 (08:58→22:50)
[2023-10-03] MEDS: L. ACIDOPHILUS/L.BULGARICUS 1 PACKET GRAN.PACK PO ×2 (08:58→22:50)
[2023-10-03 10:07] LABS: Mean Corpuscular HGB Conc 33.5 g/dL (29.9-35.2); Mean Corpuscular Hemoglobin 30.9 pg (26.7-34.0); Mean Corpuscular Volume 92.2 fL (81.0-99.0); Red Blood Count 2.04 10^6/uL (4.20-5.40); Red Cell Distribution Width 17.9 % (11.0-15.0)
[2023-10-03 10:17] LABS: Alanine Aminotransferase 30 U/L (14-59); Albumin Globulin Ratio 0.8; Albumin Level 2.5 g/dL (3.4-5.0); Alkaline Phosphatase 72 U/L (46-116); Anion Gap 10.5; Aspartate Amino Transferase 21 U/L (15-37); BUN Creatinine Ratio 8.1; Bilirubin Total 0.4 mg/dL (0.2-1.0); Calcium 8.1 mg/dL (8.5-10.1); Carbon Dioxide 24.4 mmol/L (21.0-32.0); Chloride 104 mmol/L (98-107); Estimated GFR (African America >60 (>=60); Estimated GFR (Non-African Ame >60 (>=60); Globulin 3.1 g/dL; Glucose 122 mg/dL (74-106); Sodium 136 mmol/L (136-145); Total Protein 5.6 g/dL (6.4-8.2)
[2023-10-03 10:26] LABS: Hematocrit 18.8 % (36.0-48.0); Hemoglobin 6.3 g/dL (12.0-16.0); Platelet Count 9 10^3/uL (150-450); White Blood Count 0.3 10^3/uL (4.0-11.0)
[2023-10-03 10:27] LABS: Potassium 2.9 mmol/L (3.5-5.1)
[2023-10-03] MEDS: POTASSIUM CHLORIDE 40 MEQ in 0.9 % SODIUM CHLORIDE 250 ML 67.5 MEQ IV (12:09)
[2023-10-03] MEDS: POTASSIUM CHLORIDE 10 MEQ ER TABLET 40 MEQ PO ×2 (12:09→16:37)
[2023-10-03] MEDS: ONDANSETRON 4 MG RAPDIS TABLET PO ×2 (12:19→22:58)
--- NOTE | 2023-10-03 13:28 | CM.NOTE ---
Rounds made with Dr. Mason, discussed with pt drop in Hgb and platelets. Dr. Mason will reach out to Dr. Macdonald for further recommendations.
[2023-10-03 15:34] LABS: Segmented Neut Absolute Manual 0.01 10^3/uL (1.4-6.5)
[2023-10-03 15:35] LABS: Lymphocytes Absolute Manual 0.25 10^3/uL (1.20-3.80); Monocytes Absolute Manual 0.02 10^3/uL (0.30-0.80); Ovalocytes 1+; Tear Drop Cells 1+
[2023-10-03 15:36] LABS: Poikilocytosis 1+
--- NOTE | 2023-10-03 16:44 | P.PN_ITS ---
<Statement entered by Deanna Mason, - 10/03/23 17:20> This documentation has been reviewed and approved.I also seen and evaluated patient, reviewed chart, labs and radiology. I agree with the assessment and plan. Transfusing 2 FFP, 1 PRBC's Progress Note: Subjective Subjective Interval history: 10/03/23 0950 The pt is resting comfortably in bed with her spouse at the bedside. She denies any significant pain or SOB, but is pale and disheartened this morning. Labs are still pending but we expect to transfuse PRBCs and platelets today w/ possible d/c home later tonight. A bone marrow biopsy is planned at [facility] tomorrow morning. 1125 - 1 un irradiated PRBCs and 2 un irradiated platelets ordered per Dr Macdonald recommendation. (Hgb 6.3, Plt 9k, WBC 0.3). 1450 - Pt is fatigued, tearful and depressed. Infusions still pending as they must come from [place] [facility]. Family is asking if the bone marrow biopsy that's scheduled tomorrow is vital to obtain this week or if it could be delayed. Discussed with Dr Macdonald. He agrees that pushing for the biopsy tomorrow is likely not in the pt's best interest considering her overall condition and acute bacteremia. We will keep the pt here one more night to monitor her labs and give IVPB broad ABX coverage. Blood culture sensitivities will likely be available tomorrow to help guide OP antibiotic selection. The pt will inform Dr Hughes at [facility] that the biopsy will need to be rescheduled. Exam Narrative Exam Narrative: Flat affect and depressed mood today Constitutional Vital Signs, click to edit/add: Last Vital Signs Temp 98.3 F 10/03/23 14:00 Pulse 77 10/03/23 14:00 Resp 18 10/03/23 14:00 BP 148/75 H 10/03/23 14:00 Pulse Ox 94 L 10/03/23 14:00 O2 Del Method Room Air 10/03/23 14:00 Common normals: no apparent distress, oriented x3 and alert General appearance: cooperative Orientation/consciousness: Yes awake HENMT Common normals: normocephalic, head/scalp atraumatic and hearing grossly normal bilaterally Eye Common normals: PERRL, EOMs intact bilaterally, conjunctivae normal and no scleral icterus Chest Common normals: inspection of chest normal Chest: symmetrical chest wall rise Respiratory Common normals: normal respiratory effort, no use of accessory muscles and clear to auscultation bilaterally Effort & inspection: able to speak in complete sentences Cardio Common normals: regular rate, regular rhythm, S1 normal heart sound, S2 normal heart sound, no murmurs and peripheral pulses 2+ throughout GI Common normals: Normal to inspection, nondistended, normoactive bowel sounds present, soft to palpation, non-tender and no hepatosplenomegaly Bladder/kidney exam: bladder normal to palpation Extremity Common normals: normal to inspection and no calf tenderness General: edema (Trace bilat insteps); no clubbing and no cyanosis Neuro Common normals: CN's II-XII intact bilaterally, moves all extremities, no focal motor deficits and no sensory deficits noted Psych Common normals: mental status grossly normal Progress Note: Objective Labs Labs: Short CBC 10/03/23 Range/Units 09:51 WBC 0.3 L* (4.0-11.0) 10^3/uL Hgb 6.3 L* (12.0-16.0) g/dL Hct 18.8 L* (36.0-48.0) % Plt Count 9 L* (150-450) 10^3/uL BMP 10/03/23 09:51 Sodium 136 Potassium 2.9 L* Chloride 104 Carbon Dioxide 24.4 BUN 7.0 Creatinine 0.86 Glucose 122 H Calcium 8.1 L Liver Function 10/03/23 Range/Units 09:51 Total Bilirubin 0.4 (0.2-1.0) mg/dL AST 21 (15-37) U/L ALT 30 (14-59) U/L Alkaline Phosphatase 72 (46-116) U/L Albumin 2.5 L (3.4-5.0) g/dL Progress Note: A&P Assessment and Plan (1) Bacteremia associated with intravascular line: Assessment and Plan: ACUTE * Streptococcus species - sensitivities still pending * Continue IVPB Zosyn and Vanco for double gram pos coverage in a neutropenic pt w/ bacteremia. * Repeat BC today to confirm neg cultures after ABX treatment * Likely d/c on Cefdinir per Dr Macdonald recommendation pending final sensitivities * D/C PICC - OK w/ Dr Macdonald * Culture tip - pending * Dr Macdonald will manage replacement of the PICC line as an outpatient * CBC, CMP daily (2) Neutropenic fever: Assessment and Plan: ACUTE * Pt has been afebrile more than 12 hrs, last recorded fever 10/02 at 1630 * 2/2 bacteremia and/or acute platelet transfusion reaction (less likely in presence of bacteremia) * C/S Dr Macdonald - we appreciate his assistance with this pt's care * We will continue to consult Dr Macdonald by telephone * ABX as above (3) AML (acute myeloblastic leukemia): Assessment and Plan: CHRONIC * Pt currently undergoing OP chemotherapy treatment in preparation for a stem cell transplant soon * Repeat bone biopsy scheduled tomorrow (10/04/23). May need to be rescheduled pending clinical course * Follows with Dr Hughes ([facility]) and Dr Macdonald * Defer to outpatient management (4) Pancytopenia: Assessment and Plan: CHRONIC * 2/2 AML * Per Dr Macdonald: * Hgb goal > 7.0. Currently above goal * Plt goal > 10. Currently above goal * Hgb 6.3 today - transfuse 1 un irradiated PRBCs * Platelets 9000 today - transfuse 2 un irradiated platelets * Repeat CBC, CMP in AM (5) GERD (gastroesophageal reflux disease): Assessment and Plan: CHRONIC * continue home PPI
[2023-10-03] MEDS: DIPHENHYDRAMINE HCL 25 MG CAPSULE 50 MG PO (17:17)
[2023-10-03] MEDS: ACETAMINOPHEN 500 MG TABLET 1000 MG PO (17:17)
[2023-10-03] MEDS: LACTOSE -REDUCED (ENSURE ORIGINAL 237 ML LIQUID) PO (22:49)
[2023-10-03] MEDS: OLANZapine 5 MG TABLET 2.5 MG PO (22:49)
[2023-10-03] MEDS: SENNOSIDES/DOCUSATE SODIUM 1 TAB TABLET 2 TAB PO (22:50)
[2023-10-03] MEDS: ALPRAZOLAM 0.25 MG TABLET PO (22:50)
[2023-10-03] MEDS: LACTATED RINGER'S SOLUTION 1,000 ML 50 ML IV (23:05)
[2023-10-04] VITALS (14 sets, daily range): BP systolic 116–154; BP diastolic 62–90; PULSE 65–80; RESP 12–18; TEMP 36.5–37.7; O2SAT 90–95
[2023-10-04] MEDS: VANCOMYCIN HCL 1,000 MG in 0.9 % SODIUM CHLORIDE 250 ML 250 MG IV ×2 (01:30→14:05)
[2023-10-04 04:22] LABS: Lymphocytes Absolute Auto 0.3 10^3/uL (1.2-3.8); Lymphocytes Percent Auto 84.6 % (20.5-60.0); Mean Corpuscular HGB Conc 33.8 g/dL (29.9-35.2); Mean Corpuscular Volume 91.7 fL (81.0-99.0); Mean Platelet Volume 10.4 fL (9.5-13.5); Monocytes Percent Auto 7.7 % (1.7-12.0); Neutrophils Percent Auto 7.7 % (43.0-75.0); Platelet Count 34 10^3/uL (150-450); Red Blood Count 2.16 10^6/uL (4.20-5.40); Red Cell Distribution Width 17.2 % (11.0-15.0)
[2023-10-04 04:43] LABS: Alanine Aminotransferase 26 U/L (14-59); Albumin Globulin Ratio 0.8; Albumin Level 2.4 g/dL (3.4-5.0); Alkaline Phosphatase 76 U/L (46-116); Anion Gap 5.6; Aspartate Amino Transferase 22 U/L (15-37); Bilirubin Total 0.5 mg/dL (0.2-1.0); Calcium 8.2 mg/dL (8.5-10.1); Carbon Dioxide 27.8 mmol/L (21.0-32.0); Chloride 108 mmol/L (98-107); Estimated GFR (African America >60 (>=60); Estimated GFR (Non-African Ame >60 (>=60); Globulin 3.2 g/dL; Glucose 113 mg/dL (74-106); Potassium 3.4 mmol/L (3.5-5.1); Sodium 138 mmol/L (136-145); Total Protein 5.6 g/dL (6.4-8.2)
[2023-10-04] MEDS: PIPERACILLIN SODIUM/TAZOBACTAM 3.375 GM in 0.9 % SODIUM CHLORIDE 50 ML IV ×2 (05:16→17:00)
[2023-10-04 06:17] LABS: Hematocrit 19.8 % (36.0-48.0); Hemoglobin 6.7 g/dL (12.0-16.0); White Blood Count 0.4 10^3/uL (4.0-11.0)
[2023-10-04] MEDS: BUPROPION HCL 75 MG TABLET PO (09:58)
[2023-10-04] MEDS: ACYCLOVIR 200 MG CAPSULE 400 MG PO (09:59)
[2023-10-04] MEDS: L. ACIDOPHILUS/L.BULGARICUS 1 PACKET GRAN.PACK PO (09:59)
[2023-10-04] MEDS: LACTOSE -REDUCED (ENSURE ORIGINAL 237 ML LIQUID) PO (09:59)
[2023-10-04] MEDS: OMEPRAZOLE 20 MG CAPSULE.DR PO (09:59)
[2023-10-04] MEDS: POTASSIUM CHLORIDE 10 MEQ ER TABLET 40 MEQ PO (10:08)
--- NOTE | 2023-10-04 11:00 | CM.NOTE ---
Rounds made with Dr. Mason, pt will get transfusion and then discharge to home this evening.
[2023-10-04] MEDS: DIPHENHYDRAMINE HCL 25 MG CAPSULE 50 MG PO (11:34)
[2023-10-04] MEDS: ACETAMINOPHEN 500 MG TABLET 1000 MG PO (11:35)
--- NOTE | 2023-10-04 15:14 | CM.NOTE ---
2nd notice for Important Message From Medicare discussed with pt, pt denies any questions or concerns.
[2023-10-04 16:38] LABS: C. Difficile PCR NEGATIVE (NEGATIVE)
--- NOTE | 2023-10-04 17:01 | P.DS_ITS ---
<Statement entered by Deanna Mason DO - 10/05/23 08:46> This documentation has been reviewed and approved.I have also seen and examined patient reviewed lab data and note and agree with the assessment and plan. DS: Providers Provider Date of admission: 10/02/23 12:44 Primary care physician: PEDRO PIERCE Consults: 10/02/23 07:37 Consult to Oncology Routine Consulting Provider: Sherry Macdonald Reason for consultation: Pancytopenia/AML Has provider been notified: No Discharging clinician: Ranjana Jenkins DS: Diagnosis Discharge Diagnosis (1) Bacteremia associated with intravascular line: (2) Neutropenic fever: (3) AML (acute myeloblastic leukemia): (4) Pancytopenia: (5) GERD (gastroesophageal reflux disease): DS: Summary Hospital Course Hospital Course: The patient was admitted with a fever after receiving a platelet transfusion with suspected neutropenic fever in setting of chronic pancytopenia from AML. She was initiated on IVPB Zosyn on admission for neutropenic fever. Dr. Macdonald, hematology/oncology, was consulted as he manages this patient for her chemotherapy. After admission she was found to have positive blood cultures which grew out Streptococcus species. Her PICC line was removed and the tip of the PICC line was sent for culture. IVPB Vanco was added to her regimen for double gram-positive coverage in a severely immunosuppressed patient. During the course of her stay the patient developed anemia with a hemoglobin below 7 and thrombocytopenia with platelets as low as 7000. Throughout the course of her stay she was transfused with 3 units of PRBCs and 2 units of platelets per Dr. Macdonald recommendations. At the time of discharge the patient had been afebrile for more than 48 hours. Wound cultures grew out Streptococcus mitis/oralis which was mostly pansensitive with resistance only noted to levofloxacin which the patient takes prophylactically. She is being discharged home on cefdinir for 12 more days to complete a 14-day course. We defer to Dr. Macdonald if a more prolonged course of treatment is indicated. The patient is to return to the infusion clinic tomorrow for repeat lab draw per Dr. Macdonald's instructions and he will manage any further infusions if they are indicated. The patient is being discharged home in stable condition she should follow-up with her PCP as needed and with Dr. Macdonald as previously scheduled. The patient had a bone marrow biopsy that was originally scheduled at [facility] during the time of this admission. The biopsy has been rescheduled for next . Time Spent with Patient Time attestation: Total time spent providing and/or coordinating discharge services: Time spent: greater than 30 minutes Specific discharge activities: Physical exam, discussion of discharge plan, questions answered. Exam Constitutional Vital Signs, click to edit/add: Last Vital Signs Temp 97.8 F 10/04/23 15:48 Pulse 72 10/04/23 15:48 Resp 12 10/04/23 15:48 BP 130/83 10/04/23 15:48 Pulse Ox 93 L 10/04/23 15:48 O2 Del Method Room Air 10/04/23 15:48 O2 Flow Rate 94 10/03/23 21:02 Common normals: no apparent distress, oriented x3 and alert General appearance: cooperative Orientation/consciousness: Yes awake HENMT Common normals: normocephalic and head/scalp atraumatic Eye Common normals: PERRL, EOMs intact bilaterally, conjunctivae normal and no scleral icterus Neck & C-Spine Common normals: no JVD Respiratory Common normals: normal respiratory effort, no use of accessory muscles and clear to auscultation bilaterally Effort & inspection: able to speak in complete sentences and symmetric chest movement Cardio Common normals: no JVD, regular rate, regular rhythm, S1 normal heart sound, S2 normal heart sound, no murmurs and peripheral pulses 2+ throughout GI Common normals: Normal to inspection, nondistended, normoactive bowel sounds present, soft to palpation and non-tender Bladder/kidney exam: bladder normal to palpation Extremity Common normals: normal to inspection, full ROM and normal capillary refill General: no clubbing and no cyanosis Neuro Common normals: moves all extremities, no focal motor deficits and no sensory deficits noted Speech: speech normal Psych Common normals: mental status grossly normal and activity/motor behavior normal DS: Data Data Completed and Pending Labs on day of discharge: Labs from last 24 hours 10/04/23 10/04/23 10/03/23 15:09 03:57 09:51 WBC 0.4 L* RBC 2.16 L Hgb 6.7 L* Hct 19.8 L* MCV 91.7 MCH 31.0 MCHC 33.8 RDW 17.2 H Plt Count 34 L MPV 10.4 Neut % (Auto) 7.7 L Lymph % (Auto) 84.6 H [place] % (Auto) 7.7 Eos % (Auto) 0.0 L Baso % (Auto) 0.0 L Neut # (Auto) 0.0 L Lymph # (Auto) 0.3 L [place] # (Auto) 0.0 L Eos # (Auto) 0.0 Baso # (Auto) 0.0 Abs Immat Gran (auto) 0.00 Imm/Tot Granulo (auto) 0.0 Sodium 138 Potassium 3.4 L Chloride 108 H Carbon Dioxide 27.8 Anion Gap 5.6 BUN 7.0 Creatinine 0.78 Est GFR ( Amer) >60 Est GFR (Non-Af Amer) >60 BUN/Creatinine Ratio 9.0 Glucose 113 H Calcium 8.2 L Magnesium 2.0 Total Bilirubin 0.5 AST 22 ALT 26 Alkaline Phosphatase 76 Total Protein 5.6 L Albumin 2.4 L Globulin 3.2 Albumin/Globulin Ratio 0.8 C. difficile Toxin PCR Negative Blood Type Antibody Screen Crossmatch See Detail 10/01/23 07:45 WBC RBC Hgb Hct MCV MCH MCHC RDW Plt Count MPV Neut % (Auto) Lymph % (Auto) [place] % (Auto) Eos % (Auto) Baso % (Auto) Neut # (Auto) Lymph # (Auto) [place] # (Auto) Eos # (Auto) Baso # (Auto) Abs Immat Gran (auto) Imm/Tot Granulo (auto) Sodium Potassium Chloride Carbon Dioxide Anion Gap BUN Creatinine Est GFR ( Amer) Est GFR (Non-Af Amer) BUN/Creatinine Ratio Glucose Calcium Magnesium Total Bilirubin AST ALT Alkaline Phosphatase Total Protein Albumin Globulin Albumin/Globulin Ratio C. difficile Toxin PCR Blood Type O Positive Antibody Screen Negative Crossmatch See Detail Preliminary micro results at discharge 10/02/23 12:00 Wound Culture - Preliminary Catheter Tip - Other 10/01/23 17:20 - Preliminary Blood Streptococcus mitis/oralis 10/01/23 17:14 Blood Culture Result 1 - Preliminary Blood Streptococcus mitis/oralis 10/01/23 00:30 - Preliminary Blood NO GROWTH AT 36-48 HOURS. FINAL TO FOLLOW. 10/01/23 00:25 Blood Culture Result 1 - Preliminary Blood NO GROWTH AT 36-48 HOURS. FINAL TO FOLLOW. Discharge Plan Discharge Disposition: Home Health Service Condition: Good Discharge Medications: New cefdinir 300 mg capsule 300 mg PO BID 12 Days Qty: 24 0RF Continued bupropion HCl 75 mg tablet 75 mg PO BID omeprazole 20 mg capsule,delayed release(DR/EC) 20 mg PO DAILY posaconazole [Noxafil] 100 mg tablet,delayed release (DR/EC) 300 mg PO DAILY olanzapine 2.5 mg tablet 2.5 mg PO .QHS ondansetron 4 mg tablet,disintegrating 4 mg PO Q6H PRN (Reason: nausea and vomiting) loratadine [Claritin] 10 mg tablet 10 mg PO Q24H PRN (Reason: allergic symptoms) magnesium hydroxide [Milk of Magnesia] 400 mg/5 mL suspension 5 ml PO DAILY PRN (Reason: constipation) Patient Comments: 15ml sennosides-docusate sodium [Senna-S] 8.6-50 mg tablet 1 tab-cap PO DAILY acyclovir 400 mg tablet 400 mg PO BID Held levofloxacin 500 mg tablet 500 mg PO DAILY Hold Instructions: Until Cefdinir course is completed, then resume Patient Instructions: Neutropenia (DC), Neutropenia (GEN), Bacteremia (DC) Activity Restrictions/Additional Instructions: - Return to the infusion clinic tomorrow (10/05/23) to obtain repeat lab work. Forms: Portal Instructions Follow Up Appointments: Oct.09 @ 11am with Zehra Page NP [phone]
--- NOTE | 2023-10-05 14:34 | CM.DCFOLLOWU ---
Person spoke with: Princess How are you feeling? I feel great today How is your pain? No pain. Did you understand your discharge instructions? Yes, no problems. Do you have any questions about your discharge instructions? None. I just left the infusion center. Were you given any prescriptions at discharge? yes Were you able to get your prescriptions filled? Yes, I did. Do you understand how to take your medications as ordered? I do. Do you have any questions about your follow up appointment and do you plan to keep your follow up appointment? No questions. Was just in the Infusion Center. Is there anything else that you would like to discuss? No. Thank you Questions/Comments/Concerns/Other:
== END 2023-10-04 17:38 | disposition home or self-care (01) | DRG 314 ==
LOC: ER 18:19 → MS 19:27
PROVIDERS: Nurse Practitioner Acute Care; Admitting Provider Family Medicine; Emergency Provider Emergency Medicine; PCP Family Medicine; Visit Provider Nurse Practitioner
DX: T80.211A Bloodstream infection due to central venous catheter, initial encounter (principal); D61.810 Antineoplastic chemotherapy induced pancytopenia; C92.00 Acute myeloblastic leukemia, not having achieved remission; D61.818 Other pancytopenia; D70.9 Neutropenia, unspecified; R50.81 Fever presenting with conditions classified elsewhere; K21.9 Gastro-esophageal reflux disease without esophagitis; B95.4 Other streptococcus as the cause of diseases classified elsewhere; F32.A Depression, unspecified; Z20.822 Contact with and (suspected) exposure to COVID-19; Z98.890 Other specified postprocedural states; Z85.3 Personal history of malignant neoplasm of breast; Z90.710 Acquired absence of both cervix and uterus; Z79.899 Other long term (current) drug therapy; Z92.89 Personal history of other medical treatment; Z80.9 Family history of malignant neoplasm, unspecified; Z82.49 Family history of ischemic heart disease and other diseases of the circulatory system; Z79.69 Long term (current) use of other immunomodulators and immunosuppressants; T45.1X5A Adverse effect of antineoplastic and immunosuppressive drugs, initial encounter; Y82.8 Other medical devices associated with adverse incidents
CPT/HCPCS: 36415; 36430; 36592; 71045; 80048; 80053; 81001; 83735; 84100; 84145; 85007; 85025; 85027; 86850; 86900; 86901; 86920; 87040; 87070; 87150; 87186; 87493; 87804; 87811; 94761; 96365; 96366; 96367; 96368; 96375; 96376; 99285; G0378; J0131; J1885; J2250; J2405; J2543; J2765; J3370; J3480; P9035; P9038; Q0162

== ENCOUNTER 2023-10-02 07:23 | Outpatient (RCR) | payer MEDICARE, SELFPAY ==
[2023-09-25 11:26] LABS: Hemoglobin 7.2 g/dL (12.0-16.0); Mean Corpuscular HGB Conc 34.8 g/dL (29.9-35.2); Mean Corpuscular Hemoglobin 31.7 pg (26.7-34.0); Mean Corpuscular Volume 91.2 fL (81.0-99.0); Mean Platelet Volume 11.9 fL (9.5-13.5); Platelet Count 39 10^3/uL (150-450); Red Blood Count 2.27 10^6/uL (4.20-5.40)
[2023-09-25 11:31] LABS: Anion Gap 13.3; BUN Creatinine Ratio 10.7; Calcium 8.5 mg/dL (8.5-10.1); Carbon Dioxide 27.2 mmol/L (21.0-32.0); Chloride 107 mmol/L (98-107); Estimated GFR (African America >60 (>=60); Estimated GFR (Non-African Ame >60 (>=60); Glucose 110 mg/dL (74-106); Potassium 3.5 mmol/L (3.5-5.1); Sodium 144 mmol/L (136-145)
[2023-09-25 12:02] LABS: White Blood Count 0.5 10^3/uL (4.0-11.0)
[2023-09-25 12:03] LABS: Hematocrit 20.7 % (36.0-48.0)
[2023-09-25 12:21] LABS: Lymphocytes Absolute Manual 0.45 10^3/uL (1.20-3.80); Monocytes Absolute Manual 0.02 10^3/uL (0.30-0.80); Segmented Neut Absolute Manual 0.03 10^3/uL (1.4-6.5)
[2023-09-25 12:22] LABS: Anisocytosis 1+; Ovalocytes 1+; Poikilocytosis 1+
[2023-09-27 11:44] VITALS: BP 126/93; PULSE 71; RESP 16; TEMP 36.6; O2SAT 96
--- NOTE | 2023-09-27 11:48 | PC.NURSE ---
1050: Pt. to [facility] for blood draw and dressing change to PICC line. Accompanied by . Seated in recliner. Blood drawn easily from PICC line to right upper arm. Flushed with saline. Using sterile technique, dressing changed to PICC line. Site without s&s of infection or infiltration. Line secured with stat lock, opsite applied. Pt. tolerated all without c/o. 1115: Labs resulted and called to Dr. Macdonald. New orders received. Informed pt. she is to receive 1 unit platelets and 1 unit PRBC 09/28/23. Pt. and relay understanding. 1123: Pt. d/c'd amb. to home with .
== END 2023-10-03 23:59 | disposition home or self-care (01) ==
LOC: INF 07:23
PROVIDERS: PCP Family Medicine; Visit Provider Internal Medicine Hematology & Oncology
DX: D61.818 Other pancytopenia (principal); C92.00 Acute myeloblastic leukemia, not having achieved remission; C92.92 Myeloid leukemia, unspecified in relapse
CPT/HCPCS: 80048; 85007; 85027; 86850; 86900; 86901; P9038

== ENCOUNTER 2023-10-15 15:14 | Emergency (ER) | payer MEDICARE, SELFPAY ==
[2023-10-15] VITALS (22 sets, daily range): BP systolic 120–185; BP diastolic 80–96; PULSE 67–118; RESP 12–30; TEMP 36.7–37; O2SAT 92–997; BMI 37.6
--- NOTE | 2023-10-15 15:30 | ECG_ITS ---
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
--- NOTE | 2023-10-15 15:31 | ED_ITS ---
HPI - Arrhythmia/Palpitations General Chief Complaint: Arrhythmia/Palpitations Stated Complaint: Palpitations, Dizziness Time Seen by Provider: 10/15/23 15:23 Source: patient and family Mode of arrival: Wheelchair Limitations: no limitations History of Present Illness HPI narrative: 68-year-old female presents for palpitations. She feels like her heart is skipping a beat. 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 She had some heaviness in her chest over the past few days but had received some bad news over the weekend. No fever or vomiting. No diarrhea. Related Data Home Medications Medication Instructions Recorded Confirmed bupropion HCl 75 mg tablet 75 mg PO TID 05/03/23 10/15/23 omeprazole 20 mg capsule,delayed 20 mg PO DAILY 05/03/23 10/15/23 release acyclovir 400 mg tablet 400 mg PO BID 05/25/23 10/15/23 levofloxacin 500 mg tablet 500 mg PO DAILY 06/18/23 10/15/23 olanzapine 2.5 mg tablet 2.5 mg PO .QHS 06/18/23 10/15/23 posaconazole 100 mg tablet,delayed 300 mg PO DAILY 06/18/23 10/15/23 release (Noxafil) ondansetron 4 mg disintegrating 4 mg PO Q6H PRN nausea and vomiting 07/11/23 10/15/23 tablet magnesium hydroxide 400 mg/5 mL 15 ml PO DAILY PRN constipation 10/01/23 10/15/23 oral suspension (Milk of Magnesia) sennosides 8.6 mg-docusate sodium 1 tab-cap PO DAILY 10/01/23 10/15/23 50 mg tablet (Senna-S) Previous Rx's Medication Instructions Recorded cefdinir 300 mg capsule 300 mg PO BID 12 days #24 caps 10/04/23 Allergies Allergy/AdvReac Type Severity Reaction Status Date / Time hydrocodone [From Vicodin] AdvReac Verified 10/15/23 17:27 Review of Systems ROS Narrative A ten point review of systems is negative except as noted above. [facility] Medical History (Updated 10/15/23 @ 18:24 by Jay Hendricks MD) Colitis ?K52.9 - Noninfective gastroenteritis and colitis, unspecified (ICD-10) Generalized pain ?R52 - Pain, unspecified (ICD-10) Thrombocytopenia ?D69.6 - Thrombocytopenia, unspecified (ICD-10) Anemia ?D64.9 - Anemia, unspecified (ICD-10) Pancytopenia ?D61.818 - Other pancytopenia (ICD-10) GERD (gastroesophageal reflux disease) ?K21.9 - Gastro-esophageal reflux disease without esophagitis (ICD-10) Depression ?F32.A - Depression, unspecified (ICD-10) History of blood transfusion ?Z92.89 - Personal history of other medical treatment (ICD-10) 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 - Intraductal carcinoma in situ of left breast (ICD-10) Myeloid leukemia ?C92.90 - Myeloid leukemia, unspecified, not having achieved remission (ICD- 10) Symptomatic anemia ?D64.9 - Anemia, unspecified (ICD-10) Surgical History History of bone marrow biopsy ?Z98.890 - Other specified postprocedural states (ICD-10) S/P excision of lipoma ?Z98.890 - Other specified postprocedural states (ICD-10) ?Z86.018 - Personal history of other benign neoplasm (ICD-10) History of hysterectomy ?Z90.710 - Acquired absence of both cervix and uterus (ICD-10) Family History Father Family history of cancer Family history of hypertension Mother Family history of hypertension Grandfather Family history of cancer Grandmother Family history of cancer Aunt Family history of cancer Social History Within the past year, how often did you have a drink containing alcohol: monthly or less Within the past year, how many standard drinks containing alcohol did you have on a typical day: 1 or 2 Total score: 0 Score interpretation: A score less than 3 is consistent with normal alcohol consumption. Smoking status: Never smoker Do you think of yourself as: straight/heterosexual Gender Identity: female Exam Narrative Exam Narrative: Nurses note and vital signs reviewed and patient is not hypoxic. General: The patient appears well and in no apparent distress. Patient is resting comfortably on cart. Skin: Warm, dry, no pallor noted. There is no rash noted. Head: Normocephalic, atraumatic Eye: Normal conjunctiva, no drainage Ears, Nose, Mouth, and Throat: oral mucosa is moist. Nares patent. Cardiovascular: Regular Rate and Rhythm Respiratory: Patient is in no distress, no accessory muscle use, lungs are clear to auscultation, no wheezing, rales or rhonchi Back: non-tender GI: Soft and nontender Musculoskeletal: The patient has no evidence of calf tenderness, no pitting edema, symmetrical pulses noted bilaterally Neurological: A&O, normal speech Psychiatric: Cooperative Constitutional Vital Signs, click to edit/add: Last Vital Signs Temp 98.5 F 10/15/23 17:44 Pulse 74 10/15/23 17:44 Resp 19 10/15/23 17:44 BP 143/94 H 10/15/23 17:44 Pulse Ox 98 10/15/23 17:44 O2 Del Method Room Air 10/15/23 15:21 Course Vital Signs Vital signs: Vital Signs Temperature 98.1 F 10/15/23 15:21 Pulse Rate 75 10/15/23 15:21 Respiratory Rate 18 10/15/23 15:21 Blood Pressure 185/85 H 10/15/23 15:21 Pulse Oximetry 98 10/15/23 15:21 Oxygen Delivery Method Room Air 10/15/23 15:21 Temperature 98.5 F 10/15/23 17:44 Pulse Rate 74 10/15/23 17:44 Respiratory Rate 19 10/15/23 17:44 Blood Pressure 143/94 H 10/15/23 17:44 Pulse Oximetry 98 10/15/23 17:44 Oxygen Delivery Method Room Air 10/15/23 15:21 MDM - Arrhythmia/Palpitations MDM Narrative Medical decision making narrative: Hypokalemia is identified which to some degree appears chronic for this patient. She was given oral and IV potassium. Case discussed with Dr. Macdonald and the patient will be discharged home and he has an appointment with her in the morning that she will keep. Treatment diagnosis and follow-up were discussed with the patient Differential Diagnosis Differential diagnosis: Likely palpitations, anxiety and other (Hypokalemia) Lab Data Attestation: I reviewed the patient's lab results. Labs: Lab Results 10/15/23 Range/Units 15:40 WBC 0.7 L* (4.0-11.0) 10^3/uL RBC 2.99 L (4.20-5.40) 10^6/uL Hgb 9.1 L (12.0-16.0) g/dL Hct 26.6 L (36.0-48.0) % MCV 89.0 (81.0-99.0) fL MCH 30.4 (26.7-34.0) pg MCHC 34.2 (29.9-35.2) g/dL RDW 14.8 (11.0-15.0) % Plt Count 7 L* (150-450) 10^3/uL Neut % (Auto) 7.7 L (43.0-75.0) % Lymph % (Auto) 81.5 H (20.5-60.0) % [place] % (Auto) 10.8 (1.7-12.0) % Eos % (Auto) 0.0 L (0.9-7.0) % Baso % (Auto) 0.0 L (0.2-2.0) % Neut # (Auto) 0.1 L (1.4-6.5) 10^3/uL Lymph # (Auto) 0.5 L (1.2-3.8) 10^3/uL [place] # (Auto) 0.1 L (0.3-0.8) 10^3/uL Eos # (Auto) 0.0 (0.0-0.7) 10^3/uL Baso # (Auto) 0.0 (0.0-0.1) 10^3/uL Abs Immat Gran (auto) 0.00 (0.00-0.03) 10^3/uL Imm/Tot Granulo (auto) 0.0 (0.0-0.5) % Sodium 143 (136-145) mmol/L Potassium 3.0 L (3.5-5.1) mmol/L Chloride 104 (98-107) mmol/L Carbon Dioxide 29.2 (21.0-32.0) mmol/L Anion Gap 12.8 BUN 10.0 (7.0-18.0) mg/dL Creatinine 0.75 (0.55-1.02) mg/dL Est GFR ( Amer) >60 (>=60) Est GFR (Non-Af Amer) >60 (>=60) BUN/Creatinine Ratio 13.3 Glucose 104 (74-106) mg/dL Calcium 8.9 (8.5-10.1) mg/dL Magnesium 1.9 (1.8-2.4) mg/dL Troponin I High Sens 11.2 (4.0-51.3) pg/mL Imaging Data Chest x-ray: Radiologist's impression: ITS Impressions Chest X-Ray 10/15/23 15:56 IMPRESSION: No acute cardiopulmonary process. Electronically authenticated by: BELKIS CORNELL Date: 10/15/2023 16:46 ECG Data Attestation: I personally reviewed and interpreted this ECG as follows: (EKG on my interpretation shows sinus rhythm with frequent PVCs) Critical Care Time Critical Care Time Critical Care Time: Yes Total Critical Care Time: 35 Attestation: Due to the high probability of sudden and clinically significant deterioration in the patient's condition he/she required the highest level of my preparedness to intervene urgently I provided critical care time including documentation time, medication orders and management, reevaluation, vital sign assessment, ordering and reviewing of lab tests, ordering and reviewing of x-ray studies, and admission orders. Aggregate critical care time is 35 minutes including only time during which I was engaged in work directly related to his/her care and did not include time spent treating other patients simultaneously. Discharge Plan Discharge Chief Complaint: Arrhythmia/Palpitations Clinical Impression: Symptomatic PVCs, Hypokalemia Patient Disposition: Home, Self-Care Time of Disposition Decision: 18:24 Condition: Good Mode of Transportation: Private Vehicle Prescriptions / Home Meds: No Action bupropion HCl 75 mg tablet 75 mg PO TID omeprazole 20 mg capsule,delayed release(DR/EC) 20 mg PO DAILY levofloxacin 500 mg tablet 500 mg PO DAILY Hold Instructions: Until Cefdinir course is completed, then resume posaconazole [Noxafil] 100 mg tablet,delayed release (DR/EC) 300 mg PO DAILY olanzapine 2.5 mg tablet 2.5 mg PO .QHS ondansetron 4 mg tablet,disintegrating 4 mg PO Q6H PRN (Reason: nausea and vomiting) magnesium hydroxide [Milk of Magnesia] 400 mg/5 mL suspension 15 ml PO DAILY PRN (Reason: constipation) Patient Comments: 15ml sennosides-docusate sodium [Senna-S] 8.6-50 mg tablet 1 tab-cap PO DAILY cefdinir 300 mg capsule 300 mg PO BID 12 Days Qty: 24 0RF acyclovir 400 mg tablet 400 mg PO BID Instructions: Potassium Content of Foods List (ED), Hypokalemia (ED), Premature Ventricular Contractions (ED) Additional Instructions: See Dr Macdonald at your appointment in the morning Stand Alone Forms: Portal Instructions Referrals: PEDRO PIERCE [Primary Care Provider] - 1 week
[2023-10-15 15:49] LABS: Hematocrit 26.6 % (36.0-48.0); Hemoglobin 9.1 g/dL (12.0-16.0); Lymphocytes Absolute Auto 0.5 10^3/uL (1.2-3.8); Lymphocytes Percent Auto 81.5 % (20.5-60.0); Mean Corpuscular HGB Conc 34.2 g/dL (29.9-35.2); Mean Corpuscular Hemoglobin 30.4 pg (26.7-34.0); Monocytes Absolute Auto 0.1 10^3/uL (0.3-0.8); Monocytes Percent Auto 10.8 % (1.7-12.0); Neutrophils Absolute Auto 0.1 10^3/uL (1.4-6.5); Neutrophils Percent Auto 7.7 % (43.0-75.0); Red Blood Count 2.99 10^6/uL (4.20-5.40); Red Cell Distribution Width 14.8 % (11.0-15.0)
--- NOTE | 2023-10-15 15:56 | XR_ITS ---
The [address] [address] Patient Name: NABIL THOMPSON MRN: [id number] date: 1955 Sex: F Assigned Patient Location: ER Current Patient Location: ER Accession/Order Number: [id number] Exam Date: 10/15/2023 15:50 Report Date: 10/15/2023 16:46 At the request of: SHERMAN PUCKETT Procedure: XR chest 1V EXAM: XR chest 1V CLINICAL INDICATION: Palpitations TECHNIQUE: Portable frontal semi-erect view of the chest. COMPARISON: 10/01/2023 FINDINGS: Lines and tubes: Stable right PICC. Lungs: No convincing focal infiltrates. No pleural effusion or pneumothorax. Heart: Stable enlargement of the cardiomediastinal silhouette. No overt pulmonary vascular congestion. Osseous structures: No acute abnormalities. XR/XR chest 1V IMPRESSION: No acute cardiopulmonary process. Electronically authenticated by: BELKIS CORNELL Date: 10/15/2023 16:46
[2023-10-15 15:57] LABS: Platelet Count 7 10^3/uL (150-450); White Blood Count 0.7 10^3/uL (4.0-11.0)
[2023-10-15 16:17] LABS: Anion Gap 12.8; BUN Creatinine Ratio 13.3; Calcium 8.9 mg/dL (8.5-10.1); Carbon Dioxide 29.2 mmol/L (21.0-32.0); Chloride 104 mmol/L (98-107); Estimated GFR (African America >60 (>=60); Estimated GFR (Non-African Ame >60 (>=60); Glucose 104 mg/dL (74-106); Magnesium 1.9 mg/dL (1.8-2.4); Sodium 143 mmol/L (136-145); Troponin I High Sensitivity 11.2 pg/mL (4.0-51.3)
[2023-10-15] MEDS: ACETAMINOPHEN 325 MG TABLET 650 MG PO (16:41)
[2023-10-15] MEDS: DIPHENHYDRAMINE HCL 50 MG/ML (1ML) VIAL 25 MG IV (16:41)
[2023-10-15] MEDS: POTASSIUM BICARBONATE/CIT 25 MEQ TABLET EFF 50 MEQ PO (16:58)
[2023-10-15] MEDS: POTASSIUM CHLORIDE IN WATER 10 MEQ/100 ML PIGGYBACK 100 MEQ IV ×4 (17:47→21:00)
== END 2023-10-15 22:20 | disposition home or self-care (01) ==
PROVIDERS: Emergency Medicine; Emergency Provider Internal Medicine; PCP Family Medicine
DX: I49.3 Ventricular premature depolarization (principal); E87.6 Hypokalemia; K21.9 Gastro-esophageal reflux disease without esophagitis; F32.A Depression, unspecified; C92.00 Acute myeloblastic leukemia, not having achieved remission; D05.12 Intraductal carcinoma in situ of left breast; Z79.899 Other long term (current) drug therapy; Z90.710 Acquired absence of both cervix and uterus; R11.2 Nausea with vomiting, unspecified; D61.818 Other pancytopenia
CPT/HCPCS: 36415; 36430; 36592; 71045; 80048; 80053; 83615; 83735; 84484; 84550; 85007; 85025; 85027; 86850; 86900; 86901; 93005; 96365; 96366; 96367; 96375; 96413; 99285; J1200; J2469; J3480; J9025; P9035

== ENCOUNTER 2023-11-01 07:29 | Outpatient (RCR) | payer MEDICARE, SELFPAY ==
[2023-10-04 00:02] VITALS: BP 126/93; PULSE 71; RESP 16; TEMP 36.6; O2SAT 96
[2023-10-05 11:15] VITALS: BP 149/83; PULSE 98; RESP 16; TEMP 37.2; O2SAT 98
[2023-10-05 11:56] LABS: Hematocrit 27.9 % (36.0-48.0); Hemoglobin 9.7 g/dL (12.0-16.0); Mean Corpuscular HGB Conc 34.8 g/dL (29.9-35.2); Mean Corpuscular Hemoglobin 30.8 pg (26.7-34.0); Mean Corpuscular Volume 88.6 fL (81.0-99.0); Mean Platelet Volume 9.9 fL (9.5-13.5); Red Blood Count 3.15 10^6/uL (4.20-5.40); Red Cell Distribution Width 16.7 % (11.0-15.0)
[2023-10-05 12:00] LABS: Anion Gap 9.9; BUN Creatinine Ratio 7.5; Calcium 8.7 mg/dL (8.5-10.1); Carbon Dioxide 27.3 mmol/L (21.0-32.0); Chloride 108 mmol/L (98-107); Estimated GFR (African America >60 (>=60); Estimated GFR (Non-African Ame >60 (>=60); Glucose 103 mg/dL (74-106); Potassium 3.2 mmol/L (3.5-5.1); Sodium 142 mmol/L (136-145)
[2023-10-05 12:03] LABS: Platelet Count 21 10^3/uL (150-450); White Blood Count 0.4 10^3/uL (4.0-11.0)
--- NOTE | 2023-10-05 12:05 | PC.NURSE ---
1115: Pt. to [facility] amb. for lab draw. Blood obtained, sent to lab. 1202: Lab called with critical results. Dr. Macdonald notified.
--- NOTE | 2023-10-05 12:31 | PC.NURSE ---
1230: Dr. Macdonald calls back, no new orders received at this time. Patient and aware. D/c'd to home.
[2023-10-05 13:31] LABS: Lymphocytes Absolute Manual 0.35 10^3/uL (1.20-3.80); Monocytes Absolute Manual 0.02 10^3/uL (0.30-0.80); Segmented Neut Absolute Manual 0.02 10^3/uL (1.4-6.5)
[2023-10-05 13:32] LABS: Anisocytosis 1+; Poikilocytosis 1+
[2023-10-05 13:33] LABS: Acanthocytes 1+
[2023-10-08 11:00] VITALS: BP 156/81; PULSE 61; RESP 16; TEMP 36.2; O2SAT 92
[2023-10-08 11:37] LABS: Hematocrit 29.5 % (36.0-48.0); Hemoglobin 10.2 g/dL (12.0-16.0); Mean Corpuscular HGB Conc 34.6 g/dL (29.9-35.2); Mean Corpuscular Hemoglobin 30.4 pg (26.7-34.0); Mean Corpuscular Volume 87.8 fL (81.0-99.0); Red Blood Count 3.36 10^6/uL (4.20-5.40); Red Cell Distribution Width 15.8 % (11.0-15.0)
[2023-10-08 11:46] LABS: Platelet Count 9 10^3/uL (150-450); White Blood Count 0.5 10^3/uL (4.0-11.0)
[2023-10-08 11:57] LABS: Alanine Aminotransferase 40 U/L (14-59); Albumin Globulin Ratio 0.8; Albumin Level 2.9 g/dL (3.4-5.0); Alkaline Phosphatase 90 U/L (46-116); Anion Gap 11.8; Aspartate Amino Transferase 30 U/L (15-37); BUN Creatinine Ratio 9.2; Bilirubin Total 0.5 mg/dL (0.2-1.0); Calcium 8.9 mg/dL (8.5-10.1); Carbon Dioxide 27.5 mmol/L (21.0-32.0); Chloride 105 mmol/L (98-107); Estimated GFR (African America >60 (>=60); Estimated GFR (Non-African Ame >60 (>=60); Globulin 3.7 g/dL; Glucose 103 mg/dL (74-106); Phosphorus 3.5 mg/dL (2.6-4.7); Potassium 3.3 mmol/L (3.5-5.1); Sodium 141 mmol/L (136-145); Total Protein 6.6 g/dL (6.4-8.2)
[2023-10-08 12:12] LABS: Lymphocytes Absolute Manual 0.44 10^3/uL (1.20-3.80); Monocytes Absolute Manual 0.03 10^3/uL (0.30-0.80); Segmented Neut Absolute Manual 0.03 10^3/uL (1.4-6.5)
[2023-10-08] MEDS: ACETAMINOPHEN 325 MG TABLET 650 MG PO (12:58)
[2023-10-08] MEDS: DIPHENHYDRAMINE HCL 25 MG CAPSULE PO (12:58)
[2023-10-08] MEDS: 0.9 % SODIUM CHLORIDE 250 ML 20 ML IV (12:58)
[2023-10-08 13:41] VITALS: BP 156/81; PULSE 61; RESP 16; TEMP 36.2; O2SAT 92
--- NOTE | 2023-10-08 13:59 | PC.NURSE ---
1100: Pt. to [facility] amb. for blood draw. Seated in recliner. VSS. Weight obtained. Pt. without c/o weakness, n/v, pain or syncope. Blood drawn and sent to lab. Both and pt. remain in unit to await results of blood work. 1140: finishing lab technician Amrita phones with lab results. Platelet count 9. One unit platelets to be given per. standing order. Pt. notified. finishing lab technician calling [facility] to inquire if irradiated or psoralen treated platelets available. 1145: Elizabeth sent to [facility] for platelets. Pt. notified of wait time. Pt. and to remain in unit to wait. Lunch tray ordered for both. 1230: #22 gauge IV initiated to right ac on first attempt without difficulty. Flushes easily with no edema or c/o pain. Pt. tolerated without c/o. 1258: Medicated with Tylenol and Benadryl po as ordered pre-transfusion. 1342: One unit psoralen treated platelets initiated at this time. 1400: Tolerating transfusion without c/o. VSS. IV site remains clear.
[2023-10-08 14:00] VITALS: BP 160/86; PULSE 57; RESP 16; TEMP 36.6; O2SAT 95
[2023-10-08 14:50] VITALS: BP 168/92; PULSE 60; RESP 16; TEMP 36.6; O2SAT 95
--- NOTE | 2023-10-08 15:12 | PC.NURSE ---
1450: Tolerating platelets without c/o. VSS. Denies c/o chill, dyspnea or pain.
[2023-10-08 15:20] VITALS: BP 166/92; PULSE 68; RESP 16; TEMP 36.6; O2SAT 95
--- NOTE | 2023-10-08 16:30 | PC.NURSE ---
1515: Platelets completed at this time. VSS. Pt. without c/o chills, n/v or dyspnea. IV d/c'd, pressure to site. 1520: Pt. d/c'd amb. to home with .
[2023-10-09 11:40] LABS: Hematocrit 29.7 % (36.0-48.0); Hemoglobin 10.2 g/dL (12.0-16.0); Mean Corpuscular HGB Conc 34.3 g/dL (29.9-35.2); Mean Corpuscular Hemoglobin 30.2 pg (26.7-34.0); Mean Corpuscular Volume 87.9 fL (81.0-99.0); Red Blood Count 3.38 10^6/uL (4.20-5.40); Red Cell Distribution Width 15.2 % (11.0-15.0)
[2023-10-09 11:49] LABS: Platelet Count 8 10^3/uL (150-450); White Blood Count 0.5 10^3/uL (4.0-11.0)
[2023-10-09 11:54] LABS: Alanine Aminotransferase 56 U/L (14-59); Albumin Globulin Ratio 0.8; Albumin Level 3.1 g/dL (3.4-5.0); Alkaline Phosphatase 98 U/L (46-116); Anion Gap 13.6; Aspartate Amino Transferase 41 U/L (15-37); BUN Creatinine Ratio 11.3; Bilirubin Total 0.5 mg/dL (0.2-1.0); Calcium 9.1 mg/dL (8.5-10.1); Carbon Dioxide 26.5 mmol/L (21.0-32.0); Chloride 105 mmol/L (98-107); Estimated GFR (African America >60 (>=60); Estimated GFR (Non-African Ame >60 (>=60); Globulin 3.9 g/dL; Glucose 101 mg/dL (74-106); Magnesium 1.9 mg/dL (1.8-2.4); Phosphorus 3.3 mg/dL (2.6-4.7); Potassium 3.1 mmol/L (3.5-5.1); Sodium 142 mmol/L (136-145)
[2023-10-09 12:08] LABS: Lymphocytes Absolute Manual 0.44 10^3/uL (1.20-3.80); Monocytes Absolute Manual 0.02 10^3/uL (0.30-0.80); Segmented Neut Absolute Manual 0.04 10^3/uL (1.4-6.5)
--- NOTE | 2023-10-09 12:56 | PC.NURSE ---
1105: Pt. to Dr. Macdonald's office. Blood drawn for ordered labs. Pt. tolerated without c/o. 1130: Pt. aware of lab results. Instructed to come in tomorrow for platelet transfusion per protocol. Pt. relays understanding. D/c'd amb. to home with .
--- NOTE | 2023-10-10 11:04 | PC.NURSE ---
1055 Arrival ambulatory to chair 1 for platelet transfusion as well as PICC line placement. Alert oriented, offers no complaints. 1105 #22 iv initiated RACF per Gladys RN. tolerated well. NS initiated at kvo. Instructed on s/s of reacction ie chest pain, shortness of breath itching etc. Verbalizes understanding. Lungs clear posteriorly to auscultation. heart tones strong and regular. Sl pretibial edema noted.
[2023-10-10 11:18] VITALS: BP 157/81; PULSE 69; RESP 18; TEMP 36.9; O2SAT 97
[2023-10-10 11:35] VITALS: BP 156/80; PULSE 63; RESP 18; O2SAT 94
--- NOTE | 2023-10-10 11:50 | PC.NURSE ---
tolerating platelets without any issues. rate at 200 ml hr.
[2023-10-10 12:30] VITALS: BP 170/82; PULSE 66; RESP 18; TEMP 37.1; O2SAT 98
--- NOTE | 2023-10-10 12:48 | PC.NURSE ---
1230 Platlets infused, flushed line,tolerated infusion without any s/s of reaction. IV dc'd site clear, cottonball and coban aplied. 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
--- NOTE | 2023-10-10 13:20 | PC.NURSE ---
1313 picc insertion completed. see picc assessment, patient tolerated well. vs obtained, notes scant amount of bleeding at insertion site. Released ambulatory with .
--- NOTE | 2023-10-10 15:21 | PC.NURSE ---
1500 Arrival ambulatory to [facility] with bleeding noted from PICC dressing, which was placed at 1300 today. noted a small amount of bleeding noted from dressing, patient holding washcloth over site to control drainage. old dressing removed, noted coagulation at picc insertion site, left clot insitu. noted very little active bleeding. covered insertion site with 4x4 folded in fourths, port of catheter looped upwards.coved site with 2 tegaderms, no further bleeding noted. wrapped picc site loosely with coban. also given ice pack to apply to site. Patient and verbalize understanding. Releassed abulatory at 1525
--- NOTE | 2023-10-15 | ECG_ITS ---
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
[2023-10-15 10:50] VITALS: BP 162/76; PULSE 72; RESP 18; TEMP 36.7; O2SAT 95
[2023-10-15 11:27] LABS: Hematocrit 26.5 % (36.0-48.0); Mean Corpuscular Volume 88.3 fL (81.0-99.0); Red Cell Distribution Width 14.9 % (11.0-15.0)
[2023-10-15 11:41] LABS: Alanine Aminotransferase 60 U/L (14-59); Albumin Globulin Ratio 0.9; Albumin Level 3.1 g/dL (3.4-5.0); Alkaline Phosphatase 103 U/L (46-116); Anion Gap 11.3; Aspartate Amino Transferase 34 U/L (15-37); Bilirubin Total 0.5 mg/dL (0.2-1.0); Calcium 9.1 mg/dL (8.5-10.1); Carbon Dioxide 29.6 mmol/L (21.0-32.0); Chloride 105 mmol/L (98-107); Estimated GFR (African America >60 (>=60); Estimated GFR (Non-African Ame >60 (>=60); Globulin 3.5 g/dL; Glucose 128 mg/dL (74-106); Lactate Dehydrogenase 284 U/L (81-234); Sodium 143 mmol/L (136-145); Total Protein 6.6 g/dL (6.4-8.2); Uric Acid 3.3 mg/dL (2.6-6.0)
[2023-10-15 11:44] LABS: White Blood Count 0.5 10^3/uL (4.0-11.0)
[2023-10-15 11:45] LABS: Platelet Count 4 10^3/uL (150-450)
[2023-10-15 12:01] LABS: Potassium 2.9 mmol/L (3.5-5.1)
[2023-10-15 12:06] LABS: Lymphocytes Absolute Manual 0.41 10^3/uL (1.20-3.80); Monocytes Absolute Manual 0.03 10^3/uL (0.30-0.80)
[2023-10-15 12:07] LABS: Segmented Neut Absolute Manual 0.06 10^3/uL (1.4-6.5)
[2023-10-15 12:08] LABS: Acanthocytes 1+
[2023-10-15 12:09] LABS: Poikilocytosis 1+
[2023-10-15] MEDS: 0.9 % SODIUM CHLORIDE 250 ML 10 ML IV (12:41)
[2023-10-15] MEDS: POTASSIUM CHLORIDE 20 MEQ in 0.9 % SODIUM CHLORIDE 250 ML 130 MEQ IV (12:42)
[2023-10-15] MEDS: PALONOSETRON HCL 0.25 MG/5 ML VIAL IV (12:47)
[2023-10-15] MEDS: AZACITIDINE IV (14:16)
[2023-10-15] MEDS: SODIUM CHLORIDE 0.9% IV (14:16)
--- NOTE | 2023-10-15 15:18 | PC.NURSE ---
Patient came in for Vidaza day 1. Her labs were drawn from her picc line, she states she has been nauseated over the weekend. Spoke with Dr. Macdonald today about her wbc of 0.5, PLT of 4, he ordered 1 unit of platelets, 20 MEQ of potassium. She states she had some palpitations and an EKG was ordered and obtained she states this improved temporarily. She finished Vidaza and states she started getting palpitations again, fullness in her chest and throat. I advised it would be beneficial to go to ER to get evaluated, she and her are in agreement with this. She was transported to ER.
--- NOTE | 2023-10-16 11:09 | PC.NURSE ---
1105: Pt. to Dr. Macdonald's office for scheduled visit. PICC line in place to right upper arm. No redness or edema around insertion site. Flushes easily with good blood return. Blood drawn from PICC line for ordered labs. Pt. tolerated without c/o.
[2023-10-16 11:17] LABS: Hematocrit 25.8 % (36.0-48.0); Hemoglobin 8.8 g/dL (12.0-16.0); Lymphocytes Absolute Auto 0.4 10^3/uL (1.2-3.8); Lymphocytes Percent Auto 84.4 % (20.5-60.0); Mean Corpuscular HGB Conc 34.1 g/dL (29.9-35.2); Mean Corpuscular Hemoglobin 30.1 pg (26.7-34.0); Mean Corpuscular Volume 88.4 fL (81.0-99.0); Mean Platelet Volume 9.5 fL (9.5-13.5); Monocytes Percent Auto 6.7 % (1.7-12.0); Neutrophils Percent Auto 8.9 % (43.0-75.0); Platelet Count 30 10^3/uL (150-450); Red Blood Count 2.92 10^6/uL (4.20-5.40); Red Cell Distribution Width 14.7 % (11.0-15.0)
[2023-10-16 11:19] LABS: White Blood Count 0.5 10^3/uL (4.0-11.0)
[2023-10-16 11:33] LABS: Alanine Aminotransferase 67 U/L (14-59); Albumin Globulin Ratio 0.9; Albumin Level 3.1 g/dL (3.4-5.0); Alkaline Phosphatase 104 U/L (46-116); Anion Gap 13.9; Aspartate Amino Transferase 40 U/L (15-37); BUN Creatinine Ratio 11.9; Bilirubin Total 0.5 mg/dL (0.2-1.0); Calcium 9.1 mg/dL (8.5-10.1); Carbon Dioxide 26.2 mmol/L (21.0-32.0); Chloride 108 mmol/L (98-107); Estimated GFR (African America >60 (>=60); Estimated GFR (Non-African Ame >60 (>=60); Globulin 3.6 g/dL; Glucose 127 mg/dL (74-106); Lactate Dehydrogenase 277 U/L (81-234); Potassium 3.1 mmol/L (3.5-5.1); Sodium 145 mmol/L (136-145); Total Protein 6.7 g/dL (6.4-8.2); Uric Acid 3.1 mg/dL (2.6-6.0)
[2023-10-16] MEDS: SODIUM CHLORIDE 0.9% IV (13:26)
[2023-10-16] MEDS: AZACITIDINE IV (13:26)
[2023-10-16 13:39] VITALS: BP 180/91; PULSE 88; RESP 18; TEMP 37.1; O2SAT 94
--- NOTE | 2023-10-16 13:55 | PC.NURSE ---
1316: Pt. to [facility] amb. accompanied by after appointment with Dr. Macdonald. Both patient and tearful after speaking with physician regarding disease process. Comfort and reassurance provided. Pt. to cont. on chemo regimen at this time. Seated in recliner. VSS. PICC line flushes easily with good blood return. IV 0.9% NS initiated at KVO. Given water and warm blanket. 1326: IV Vidaza initiated at this time. 1346: Pt. relays feeling skipped heart beats. Monitor applied to pt. Rhythm shows NSR with PVC's around every 4th beat. Denies c/o chest pain or dyspnea. Rest of VSS. Will cont. to monitor closely. 1400: ECG rhythm shows NSR with rare PVC. Denies c/o.
[2023-10-16 14:30] VITALS: BP 172/82; PULSE 82; RESP 16; TEMP 36.6; O2SAT 94
--- NOTE | 2023-10-16 14:34 | PC.NURSE ---
1405: IV chemo completed at this time. PICC line flushed with saline. Pt. denies c/o chest pain or heaviness, dyspnea or n/v. Relays feelings of depression and fear. Continued comfort provided. PICC line to F. 1415: Pt. d/c'd amb. to home with . Pt. to return tomorrow a.m. for cont. treatment.
[2023-10-17] MEDS: SODIUM CHLORIDE 0.9% IV (11:18)
[2023-10-17] MEDS: AZACITIDINE IV (11:18)
[2023-10-17 11:33] VITALS: BP 153/84; PULSE 58; RESP 14; TEMP 36.1; O2SAT 98
--- NOTE | 2023-10-17 11:41 | PC.NURSE ---
1045: Pt. to [facility] amb. accompanied by . Seated in recliner. VSS. PICC line to right upper arm in place and without s&s of infection or infiltratioon. Flushes easily with good blood return. IV NS initiated at KVO. Given warm blanket and pillow. Drinking water and coffee. 1118: IV Vidaza initiated at this time. Denies needs or c/o.
--- NOTE | 2023-10-17 11:55 | PC.NURSE ---
1140: Tolerating without c/o. Denies needs or c/o.
[2023-10-17 12:10] VITALS: BP 150/78; PULSE 58; RESP 16; TEMP 36.6; O2SAT 98
--- NOTE | 2023-10-17 12:13 | PC.NURSE ---
1155: ISAMAR Enrique completed without s&s of adverse reaction. VSS. PICC line flushed with saline. PICC to [facility]. 1209: Pt. d/c'd amb. to home with .
[2023-10-18 10:51] LABS: Hematocrit 24.7 % (36.0-48.0); Hemoglobin 8.4 g/dL (12.0-16.0); Mean Corpuscular Hemoglobin 30.3 pg (26.7-34.0); Mean Corpuscular Volume 89.2 fL (81.0-99.0); Mean Platelet Volume 9.2 fL (9.5-13.5); Red Blood Count 2.77 10^6/uL (4.20-5.40); Red Cell Distribution Width 14.7 % (11.0-15.0)
[2023-10-18 10:53] LABS: White Blood Count 0.4 10^3/uL (4.0-11.0)
[2023-10-18 10:54] LABS: Platelet Count 13 10^3/uL (150-450)
[2023-10-18 11:03] LABS: Phosphorus 3.1 mg/dL (2.6-4.7)
[2023-10-18] MEDS: PALONOSETRON HCL 0.25 MG/5 ML VIAL IV (11:05)
[2023-10-18 11:06] LABS: Alanine Aminotransferase 68 U/L (14-59); Albumin Globulin Ratio 0.9; Albumin Level 3.2 g/dL (3.4-5.0); Alkaline Phosphatase 103 U/L (46-116); Anion Gap 10.6; Aspartate Amino Transferase 37 U/L (15-37); BUN Creatinine Ratio 16.7; Bilirubin Total 0.5 mg/dL (0.2-1.0); Calcium 9.4 mg/dL (8.5-10.1); Chloride 107 mmol/L (98-107); Estimated GFR (African America >60 (>=60); Estimated GFR (Non-African Ame >60 (>=60); Globulin 3.4 g/dL; Glucose 120 mg/dL (74-106); Magnesium 1.7 mg/dL (1.8-2.4); Potassium 3.6 mmol/L (3.5-5.1); Sodium 140 mmol/L (136-145); Total Protein 6.6 g/dL (6.4-8.2)
[2023-10-18] MEDS: SODIUM CHLORIDE 0.9% IV (11:06)
[2023-10-18] MEDS: AZACITIDINE IV (11:06)
[2023-10-18 11:09] LABS: Lymphocytes Absolute Manual 0.32 10^3/uL (1.20-3.80); Monocytes Absolute Manual 0.01 10^3/uL (0.30-0.80); Segmented Neut Absolute Manual 0.06 10^3/uL (1.4-6.5)
[2023-10-18 11:31] VITALS: BP 153/77; PULSE 83; RESP 16; TEMP 36.4; O2SAT 96
--- NOTE | 2023-10-18 11:36 | PC.NURSE ---
1030: Pt. to [facility] amb. for daily chemo treatment. Accompanied by and daughter. Weight obtained. Seated in recliner. VSS. PICC line to right upper arm intact. Blood drawn for ordered labs. Using sterile technique, PICC line site cleansed, dressing changed. New cap applied. Flushes easily with good blood return. Pt. tolerated without c/o. 1100: Medicated with Aloxi as ordered. 1106: IV Vidaza initiated at this time. Given water, blanket and snack.
[2023-10-18 12:04] VITALS: BP 160/72; PULSE 78; RESP 16; TEMP 36.6; O2SAT 95
--- NOTE | 2023-10-18 12:05 | PC.NURSE ---
1142: ISAMAR Enrique completed at this time. Pt. tolerated without s&s of adverse reaction. PICC line flushed with saline. 1158: Pt. d/c'd amb. to home with family.
[2023-10-19] VITALS (7 sets, daily range): BP systolic 138–158; BP diastolic 72–90; PULSE 68–80; RESP 16–20; TEMP 36.6–36.9; O2SAT 94–96
[2023-10-19] MEDS: SODIUM CHLORIDE 0.9% IV (10:22)
[2023-10-19] MEDS: AZACITIDINE IV (10:22)
[2023-10-19] MEDS: 0.9 % SODIUM CHLORIDE 250 ML 20 ML IV (10:28)
[2023-10-19 10:43] LABS: Hematocrit 24.2 % (36.0-48.0); Hemoglobin 8.3 g/dL (12.0-16.0); Mean Corpuscular HGB Conc 34.3 g/dL (29.9-35.2); Mean Corpuscular Hemoglobin 30.7 pg (26.7-34.0); Mean Corpuscular Volume 89.6 fL (81.0-99.0); Mean Platelet Volume 12.1 fL (9.5-13.5)
--- NOTE | 2023-10-19 10:46 | PC.NURSE ---
0955: Pt. to [facility] accompanied by . Seated in recliner. VSS. PICC line intact to right upper arm and without s&s of infection or infiltration. Flushes easily with good blood return. Blood obtained for ordered labs. 1022: ISAMAR Enrique initiated at this time. Pt. given warm blanket and water. Denies needs or c/o.
[2023-10-19 10:50] LABS: Platelet Count 10 10^3/uL (150-450); White Blood Count 0.6 10^3/uL (4.0-11.0)
--- NOTE | 2023-10-19 12:09 | PC.NURSE ---
1100: ISAMAR Enrique completed at this time without s&s of adverse reaction. VSS. Pt. and Patient's relay concern over patient's current platelet count with fear that it will drop even lower over the weekend causing pt. to have epistaxis. This RN relays Dr. Macdonald out of office today and will contact Dr. Hughes at [facility]. 1115: Spoke with Dr. Hughes regarding current platelet count, new order obtained. Blood bank notified. 1130: Informed pt. blood bank will let this RN know when platelets will be available from [facility] in [place], [place]. chief cardiopulmonary technologist stated it will be over several hours before available. Pt. and d/c to home and will await call to come back to hospital for platelet transfusion.
[2023-10-19 12:10] LABS: Lymphocytes Absolute Manual 0.46 10^3/uL (1.20-3.80); Monocytes Absolute Manual 0.02 10^3/uL (0.30-0.80)
[2023-10-19 12:11] LABS: Hypochromasia 1+; Ovalocytes 1+
--- NOTE | 2023-10-19 15:43 | PC.NURSE ---
1530: Pt. returns to [facility] amb accompanied by for platelet infusion. Seated in recliner. PICC line to right upper arm without redness or edema. Flushes easily with good blood return. Denies c/o. IV NS initiated at [facility].
--- NOTE | 2023-10-19 15:58 | PC.NURSE ---
1548: Platelet transfusion initiated at this time. Pt. without c/o or needs.
--- NOTE | 2023-10-19 16:09 | PC.NURSE ---
Tolerating platelets without s&s of transfusion reaction. VSS.
--- NOTE | 2023-10-19 17:23 | PC.NURSE ---
1700: Pt. up to bathroom. Denies c/o. Platelet completed, PICC line flushed with saline. 1710: Pt. d/c'd amb. to home with .
[2023-10-22 11:25] LABS: Hemoglobin 7.5 g/dL (12.0-16.0); Mean Corpuscular HGB Conc 33.6 g/dL (29.9-35.2); Mean Corpuscular Hemoglobin 29.5 pg (26.7-34.0); Mean Corpuscular Volume 87.8 fL (81.0-99.0); Red Blood Count 2.54 10^6/uL (4.20-5.40); Red Cell Distribution Width 14.6 % (11.0-15.0)
[2023-10-22] MEDS: PALONOSETRON HCL 0.25 MG/5 ML VIAL IV (11:31)
[2023-10-22] MEDS: 0.9 % SODIUM CHLORIDE 250 ML 20 ML IV (11:32)
[2023-10-22 11:36] LABS: White Blood Count 0.4 10^3/uL (4.0-11.0)
[2023-10-22 11:37] LABS: Hematocrit 22.3 % (36.0-48.0)
[2023-10-22 11:38] LABS: Platelet Count 11 10^3/uL (150-450)
[2023-10-22 11:44] LABS: Alanine Aminotransferase 58 U/L (14-59); Albumin Level 3.2 g/dL (3.4-5.0); Alkaline Phosphatase 103 U/L (46-116); Anion Gap 15.9; Aspartate Amino Transferase 27 U/L (15-37); BUN Creatinine Ratio 19.5; Bilirubin Total 0.4 mg/dL (0.2-1.0); Calcium 9.1 mg/dL (8.5-10.1); Carbon Dioxide 24.1 mmol/L (21.0-32.0); Chloride 105 mmol/L (98-107); Estimated GFR (African America >60 (>=60); Estimated GFR (Non-African Ame >60 (>=60); Globulin 3.2 g/dL; Glucose 117 mg/dL (74-106); Sodium 141 mmol/L (136-145); Total Protein 6.4 g/dL (6.4-8.2)
[2023-10-22] MEDS: SODIUM CHLORIDE 0.9% IV (11:45)
[2023-10-22] MEDS: AZACITIDINE IV (11:45)
[2023-10-22 12:52] LABS: Lymphocytes Absolute Manual 0.31 10^3/uL (1.20-3.80); Monocytes Absolute Manual 0.04 10^3/uL (0.30-0.80); Segmented Neut Absolute Manual 0.04 10^3/uL (1.4-6.5)
[2023-10-22 12:54] LABS: Acanthocytes 1+; Anisocytosis 1+; Poikilocytosis 1+
[2023-10-22 13:10] VITALS: BP 171/91; PULSE 85; RESP 18; TEMP 36.6; O2SAT 98
--- NOTE | 2023-10-22 13:13 | PC.NURSE ---
1055: Pt. to [facility] amb. accompanied by . Weight obtained. Seated in recliner. VSS. Occasional moist cough noted. Denies c/o dyspnea or drainage. Lungs CTA t.o. post. PICC line in place to right upper arm and without s&s of infection. Able to aspirate blood easily and flushes without difficulty. Blood obtained and sent to lab as ordered. IV NS initiated at [facility]. Pt. given blanket, pillow and water. 1145: IV Vidaza initiated at this time. Pt. denies needs. 1220: IV Vidaza completed without s&s of adverse reaction. PICC line flushed with saline and cap changed. 1225: Pt. d/c'd amb. to home with .
[2023-10-23 11:13] LABS: Hemoglobin 7.4 g/dL (12.0-16.0); Mean Corpuscular HGB Conc 34.3 g/dL (29.9-35.2); Mean Corpuscular Hemoglobin 30.2 pg (26.7-34.0); Mean Corpuscular Volume 88.2 fL (81.0-99.0); Red Blood Count 2.45 10^6/uL (4.20-5.40); Red Cell Distribution Width 14.6 % (11.0-15.0)
[2023-10-23 11:15] LABS: Hematocrit 21.6 % (36.0-48.0); Platelet Count 6 10^3/uL (150-450); White Blood Count 0.4 10^3/uL (4.0-11.0)
[2023-10-23 11:24] LABS: BUN Creatinine Ratio 23.4; Carbon Dioxide 26.2 mmol/L (21.0-32.0); Chloride 105 mmol/L (98-107); Estimated GFR (African America >60 (>=60); Estimated GFR (Non-African Ame >60 (>=60); Glucose 103 mg/dL (74-106); Lactate Dehydrogenase 253 U/L (81-234); Potassium 4.2 mmol/L (3.5-5.1); Sodium 142 mmol/L (136-145)
[2023-10-23 11:51] LABS: Lymphocytes Absolute Manual 0.32 10^3/uL (1.20-3.80); Monocytes Absolute Manual 0.04 10^3/uL (0.30-0.80); Segmented Neut Absolute Manual 0.03 10^3/uL (1.4-6.5)
[2023-10-23 12:18] VITALS: BP 143/72; PULSE 93; RESP 16; TEMP 36.8; O2SAT 95
--- NOTE | 2023-10-23 12:22 | PC.NURSE ---
1215: Pt. to [facility] amb. accompanied by from Dr. Macdonald's office visit. Seated in recliner. PICC line to right upper arm without redness or edema. Flushes easily with good blood return. IV NS initiated at [facility].
[2023-10-23] MEDS: 0.9 % SODIUM CHLORIDE 250 ML 20 ML IV (12:32)
[2023-10-23] MEDS: SODIUM CHLORIDE 0.9% IV (12:50)
[2023-10-23] MEDS: AZACITIDINE IV (12:50)
[2023-10-23] MEDS: DIPHENHYDRAMINE HCL 25 MG CAPSULE PO (12:51)
[2023-10-23] MEDS: ACETAMINOPHEN 325 MG TABLET 650 MG PO (12:51)
[2023-10-23 13:32] VITALS: PULSE 93; RESP 16; TEMP 36.8; O2SAT 95
--- NOTE | 2023-10-23 14:35 | PC.NURSE ---
1230: Labs reviewed with patient and physician. OK to proceed with chemo. Order given for blood transfusion today and platelets tomorrow. Pt. aware. 1250: IV Vidaza initiated at this time. Pt. given lunch tray. Denies needs or c/o. 1251: Pre-medicated with Tylenol and Benadryl as ordered. See NOV. 1325: IV Vidaza infused without s&s of adverse reaction. Pt. without c/o. 1337: 1 unit PRBC initiated at this time. Pt. denies needs. 1352: VSS. PRBC cont. to infuse without symptoms. 1452: No new changes observed. Denies c/o.
[2023-10-23 14:52] VITALS: BP 143/72; PULSE 72; RESP 14; TEMP 36.8; O2SAT 95
[2023-10-23 15:29] VITALS: BP 148/72; PULSE 75; RESP 16; TEMP 36.8; O2SAT 95
--- NOTE | 2023-10-23 15:42 | PC.NURSE ---
1520: PRBC completed without adverse reaction. VSS. PICC line flushed with saline, chg cap applied. Pt.tolerated without c/o. 1525: Pt. d/c'd amb. to home with .
[2023-10-24 09:58] VITALS: BP 162/84; PULSE 87; TEMP 36.8; O2SAT 94
[2023-10-24 10:15] VITALS: BP 152/77; PULSE 70; RESP 16; TEMP 36.6; O2SAT 94
[2023-10-24] MEDS: DIPHENHYDRAMINE HCL 25 MG CAPSULE PO (10:30)
[2023-10-24] MEDS: ACETAMINOPHEN 325 MG TABLET 650 MG PO (10:30)
[2023-10-24 10:36] VITALS: BP 162/84; PULSE 87; RESP 16; TEMP 36.8; O2SAT 98
--- NOTE | 2023-10-24 10:43 | PC.NURSE ---
0950: Pt. to [facility] amb. accompanied by . Seated in recliner. VSS. PICC line to right upper arm in place and without s&s of infection or infiltration. Flushes easily with good blood return. Using sterile technique, PICC line dressing changed. Pt. tolerated with no c/o.
--- NOTE | 2023-10-24 10:56 | PC.NURSE ---
1000: Platelet infusion initiated at this time. 1015: VSS. Pt. without c/o. 1057: Platelets cont. to infuse without adverse reaction.
[2023-10-24 11:15] VITALS: BP 147/86; PULSE 76; RESP 16; TEMP 36.6; O2SAT 92
[2023-10-24 11:16] VITALS: BP 147/86; PULSE 76; RESP 16; TEMP 36.6; O2SAT 92
--- NOTE | 2023-10-24 11:26 | PC.NURSE ---
1115:First unit platelets infused without s&s of transfusion reaction. VSS. 1118: Second unit platelets initiated at this time. Pt. drinking protein shake. Denies needs
[2023-10-24 11:56] VITALS: BP 136/72; PULSE 72; RESP 16; TEMP 36.6; O2SAT 94
--- NOTE | 2023-10-24 12:25 | PC.NURSE ---
1210:Platelets completed at this time. Pt. without s&s of adverse reaction. PICC line flushed with saline. Pt. denies needs or c/o. Pt. d/c'd amb. to home with .
[2023-10-29 11:39] LABS: Hemoglobin 7.2 g/dL (12.0-16.0); Mean Corpuscular HGB Conc 35.5 g/dL (29.9-35.2); Mean Corpuscular Hemoglobin 30.8 pg (26.7-34.0); Mean Corpuscular Volume 86.8 fL (81.0-99.0); Red Blood Count 2.34 10^6/uL (4.20-5.40); Red Cell Distribution Width 14.1 % (11.0-15.0)
[2023-10-29 11:45] LABS: Mean Platelet Volume 11.3 fL (9.5-13.5)
[2023-10-29 11:47] LABS: Hematocrit 20.3 % (36.0-48.0); Platelet Count 9 10^3/uL (150-450); White Blood Count 0.3 10^3/uL (4.0-11.0)
[2023-10-29 11:53] LABS: Alanine Aminotransferase 37 U/L (14-59); Albumin Level 3.1 g/dL (3.4-5.0); Alkaline Phosphatase 106 U/L (46-116); Anion Gap 14.8; Aspartate Amino Transferase 21 U/L (15-37); BUN Creatinine Ratio 15.9; Bilirubin Total 0.4 mg/dL (0.2-1.0); Calcium 8.7 mg/dL (8.5-10.1); Carbon Dioxide 25.3 mmol/L (21.0-32.0); Chloride 106 mmol/L (98-107); Estimated GFR (African America >60 (>=60); Estimated GFR (Non-African Ame >60 (>=60); Globulin 3.1 g/dL; Glucose 118 mg/dL (74-106); Phosphorus 3.3 mg/dL (2.6-4.7); Potassium 4.1 mmol/L (3.5-5.1); Sodium 142 mmol/L (136-145); Total Protein 6.2 g/dL (6.4-8.2)
[2023-10-29 12:49] LABS: Lymphocytes Absolute Manual 0.26 10^3/uL (1.20-3.80); Monocytes Absolute Manual 0.01 10^3/uL (0.30-0.80); Segmented Neut Absolute Manual 0.01 10^3/uL (1.4-6.5)
[2023-10-29 12:51] LABS: Hypochromasia 2+; Ovalocytes 1+
[2023-10-30] VITALS (7 sets, daily range): BP systolic 137–157; BP diastolic 79–91; PULSE 73–102; RESP 16–18; TEMP 36.4–36.9; O2SAT 94–97
[2023-10-30] MEDS: ACETAMINOPHEN 325 MG TABLET 650 MG PO (10:45)
[2023-10-30] MEDS: DIPHENHYDRAMINE HCL 25 MG CAPSULE PO (10:45)
--- NOTE | 2023-10-30 11:25 | PC.NURSE ---
1038: Pt. to [facility] amb. accompanied by . Seated in recliner. VSS. PICC line to right upper arm intact and without s&s of infection or infiltration. Flushes easily with good blood return. 1045: Pt. medicated with Tylenol and Benadryl as ordered, see NOV. 1053: 1 unit platelets initiated at this time. Given water and warm blanket.
--- NOTE | 2023-10-30 11:29 | PC.NURSE ---
1110: Pt. without c/o or s&s of adverse reaction. VSS.
--- NOTE | 2023-10-30 13:50 | PC.NURSE ---
1150: Platelet infusion completed at this time. VSS. Pt. without s&s of adverse reaction. VSS. 1159: 1 unit PRBC initiated at this time. Pt. given Ensure protein shake. Declines wanting to eat. 1215: Pt. tolerates blood without c/o. VSS 1259: Pt. without change. VSS. Cont. to relay comfort. Denies needs. 1340: PRBC completed at this time. Pt. without s&s of adverse side effects or reactions. VSS. PICC line flushed with saline. 1345: Pt. d/c'd amb. to home with friend
[2023-11-01 10:50] VITALS: BP 144/76; PULSE 73; RESP 18; O2SAT 97
[2023-11-01 11:15] LABS: Hemoglobin 8.1 g/dL (12.0-16.0); Mean Corpuscular HGB Conc 34.8 g/dL (29.9-35.2); Mean Corpuscular Hemoglobin 30.2 pg (26.7-34.0); Mean Corpuscular Volume 86.9 fL (81.0-99.0); Red Blood Count 2.68 10^6/uL (4.20-5.40); Red Cell Distribution Width 13.3 % (11.0-15.0)
[2023-11-01 11:24] LABS: Hematocrit 23.3 % (36.0-48.0); Platelet Count 5 10^3/uL (150-450); White Blood Count 0.4 10^3/uL (4.0-11.0)
[2023-11-01 11:53] LABS: Anion Gap 11.4; Calcium 8.7 mg/dL (8.5-10.1); Carbon Dioxide 27.4 mmol/L (21.0-32.0); Chloride 106 mmol/L (98-107); Estimated GFR (African America >60 (>=60); Estimated GFR (Non-African Ame >60 (>=60); Glucose 122 mg/dL (74-106); Potassium 3.8 mmol/L (3.5-5.1); Sodium 141 mmol/L (136-145)
[2023-11-01 12:46] LABS: Segmented Neut Absolute Manual 0.01 10^3/uL (1.4-6.5)
[2023-11-01 12:47] LABS: Lymphocytes Absolute Manual 0.36 10^3/uL (1.20-3.80); Monocytes Absolute Manual 0.01 10^3/uL (0.30-0.80)
[2023-11-01 12:49] LABS: Hypochromasia 2+; Ovalocytes 1+
[2023-11-01 14:52] VITALS: BP 138/78; PULSE 16; RESP 16; TEMP 36.8; O2SAT 95
[2023-11-01 14:56] VITALS: BP 138/78; PULSE 76; RESP 16; TEMP 36.7; O2SAT 95
[2023-11-01] MEDS: DIPHENHYDRAMINE HCL 25 MG CAPSULE PO (15:00)
[2023-11-01] MEDS: 0.9 % SODIUM CHLORIDE 250 ML 20 ML IV (15:00)
[2023-11-01] MEDS: ACETAMINOPHEN 325 MG TABLET 650 MG PO (15:00)
--- NOTE | 2023-11-01 15:42 | PC.NURSE ---
1456: Pt. medicated with Tylenol and Benadryl as ordered. See MAR. PICC line to right upper arm flushes easily with good blood return. Platelet infusion initiated at this time. Using sterile technique, dressing to right upper arm PICC line changed. No redness, edema or drainage observed from site. Stat lock and sterile CHG dressing applied. Pt tolerated without c/o. 1512: VSS. Pt. tolerating platelets without s&s of adverse reaction. Denies needs or c/o.
[2023-11-01 15:46] VITALS: BP 142/74; PULSE 79; RESP 16; TEMP 37.1; O2SAT 96
--- NOTE | 2023-11-01 15:47 | PC.NURSE ---
Continues to tolerate platelet infusion without c/o. VSS.
[2023-11-01 16:36] VITALS: BP 147/78; PULSE 77; RESP 16; TEMP 37.1; O2SAT 96
--- NOTE | 2023-11-01 16:37 | PC.NURSE ---
1625: Platelet infusion completed without s&s of adverse reaction. VSS. PICC line flushed with saline. Denies c/o. 1630: Pt. d/c'd amb. to home with .
[2023-11-02 10:01] VITALS: BP 123/54; PULSE 79; RESP 16; TEMP 36.5; O2SAT 98
== END 2023-11-01 23:59 | disposition home or self-care (01) ==
LOC: INF 07:29
PROVIDERS: PCP Family Medicine; Visit Provider Internal Medicine Hematology & Oncology
DX: Z51.11 Encounter for antineoplastic chemotherapy (principal); C92.00 Acute myeloblastic leukemia, not having achieved remission; C92.92 Myeloid leukemia, unspecified in relapse; R11.2 Nausea with vomiting, unspecified; D61.818 Other pancytopenia; Z85.3 Personal history of malignant neoplasm of breast; Z90.722 Acquired absence of ovaries, bilateral
CPT/HCPCS: 36415; 36430; 36569; 36592; 80048; 80053; 83615; 83735; 84100; 84550; 85007; 85025; 85027; 86850; 86900; 86901; 93005; 96366; 96367; 96374; 96375; 96413; C1887; G0463; J2469; J3480; J9025; P9035; P9038

== ENCOUNTER 2023-11-05 07:35 | Outpatient (RCR) | payer MEDICARE, SELFPAY ==
[2023-11-02] MEDS: DIPHENHYDRAMINE HCL 25 MG CAPSULE PO (10:09)
[2023-11-02] MEDS: ACETAMINOPHEN 325 MG TABLET 650 MG PO (10:09)
[2023-11-02 10:10] VITALS: BP 123/54; PULSE 79; RESP 18; TEMP 36.5; O2SAT 98
[2023-11-02 10:35] VITALS: BP 123/54; PULSE 79; RESP 18; TEMP 36.5; O2SAT 98
--- NOTE | 2023-11-02 10:42 | PC.NURSE ---
0950: Pt. to [facility] amb. accompanied by . Seated in recliner. PICC line to right upper arm intact and without s&s of infection or infiltration. Flushes easily with good blood return. VSS. 1009: Medicated with Tylenol and Benadryl as ordered. 1013: Platelet infusion initiated at this time. Denies needs or c/o. 1030: Pt. tolerating infusion without s&s of adverse reaction.
[2023-11-02 11:15] VITALS: BP 160/71; PULSE 72; RESP 16; TEMP 36.6; O2SAT 98
--- NOTE | 2023-11-02 11:34 | PC.NURSE ---
1115: Pt. without c/o or changes.
[2023-11-02 12:02] VITALS: BP 158/70; PULSE 77; RESP 18; TEMP 36.6; O2SAT 98
--- NOTE | 2023-11-02 12:03 | PC.NURSE ---
1150: Platelets completed at this time without s&s of transfusion reaction. VSS. PICC line flushed with saline. 1153: Pt. d/c'd amb. to home with .
[2023-11-05 09:37] LABS: Hemoglobin 7.1 g/dL (12.0-16.0); Mean Corpuscular HGB Conc 34.5 g/dL (29.9-35.2); Mean Corpuscular Volume 86.9 fL (81.0-99.0); Mean Platelet Volume 10.6 fL (9.5-13.5); Red Blood Count 2.37 10^6/uL (4.20-5.40); Red Cell Distribution Width 13.4 % (11.0-15.0)
[2023-11-05 09:51] LABS: Alanine Aminotransferase 43 U/L (14-59); Albumin Level 3.1 g/dL (3.4-5.0); Alkaline Phosphatase 95 U/L (46-116); Anion Gap 13.1; Aspartate Amino Transferase 23 U/L (15-37); BUN Creatinine Ratio 15.5; Bilirubin Total 0.6 mg/dL (0.2-1.0); Calcium 8.8 mg/dL (8.5-10.1); Carbon Dioxide 24.6 mmol/L (21.0-32.0); Chloride 105 mmol/L (98-107); Estimated GFR (African America >60 (>=60); Estimated GFR (Non-African Ame >60 (>=60); Globulin 3.1 g/dL; Glucose 109 mg/dL (74-106); Magnesium 1.8 mg/dL (1.8-2.4); Phosphorus 3.1 mg/dL (2.6-4.7); Potassium 3.7 mmol/L (3.5-5.1); Sodium 139 mmol/L (136-145); Total Protein 6.2 g/dL (6.4-8.2)
[2023-11-05 09:55] LABS: Hematocrit 20.6 % (36.0-48.0); White Blood Count 0.3 10^3/uL (4.0-11.0)
[2023-11-05 09:56] LABS: Platelet Count 23 10^3/uL (150-450)
[2023-11-05] MEDS: DIPHENHYDRAMINE HCL 25 MG CAPSULE PO (10:27)
[2023-11-05] MEDS: ACETAMINOPHEN 325 MG TABLET 650 MG PO (10:27)
[2023-11-05 11:13] VITALS: BP 120/82; PULSE 78; RESP 18; TEMP 36.5; O2SAT 97
[2023-11-05 11:46] VITALS: BP 120/82; PULSE 78; RESP 16; TEMP 36.5; O2SAT 97
[2023-11-05 11:46] LABS: Lymphocytes Absolute Manual 0.25 10^3/uL (1.20-3.80); Monocytes Absolute Manual 0.03 10^3/uL (0.30-0.80); Segmented Neut Absolute Manual 0.01 10^3/uL (1.4-6.5)
[2023-11-05 11:47] LABS: Poikilocytosis 1+; Tear Drop Cells 1+
[2023-11-05 12:02] VITALS: PULSE 70; RESP 16; TEMP 36.6; O2SAT 96
[2023-11-05 12:47] VITALS: BP 144/72; PULSE 71; RESP 16; TEMP 36.6; O2SAT 95
[2023-11-05 13:25] VITALS: BP 161/78; PULSE 71; RESP 16; TEMP 36.6; O2SAT 96
[2023-11-05 15:32] VITALS: BP 120/82; PULSE 78; RESP 16; TEMP 36.5; O2SAT 97
--- NOTE | 2023-11-05 15:34 | PC.NURSE ---
0900: Pt. to [facility] amb. accompanied by . Seated in recliner. VSS. PICC line to right upper arm intact and without s&s of infection or infiltration. Blood drawn from PICC line for ordered labs. Flushed with saline. 0953: Lab resulted and pt. to receive PRBC. Pt. aware. Pre-medicated with Tylenol and Benadryl as ordered. See NOV. 1147: 1 unit PRBC irradiated initiated at this time. Pt. without c/o or need. Drinking water and protein shake. 1202: Tolerates transfusion without s&s of adverse reaction. VSS. Denies needs. 1247: VSS. Pt. cont. to deny c/o. 1325: PRBC infused without s&s of transfusion reaction. VSS. PICC line flushed with saline. Pt. without c/o. 1340: Pt. d/c'd amb. to home with .
== END 2023-12-02 23:59 | disposition home or self-care (01) ==
LOC: INF 07:35
PROVIDERS: PCP Family Medicine; Visit Provider Internal Medicine Hematology & Oncology
DX: C92.00 Acute myeloblastic leukemia, not having achieved remission (principal); C92.92 Myeloid leukemia, unspecified in relapse; D61.818 Other pancytopenia; R11.2 Nausea with vomiting, unspecified
CPT/HCPCS: 36415; 36430; 36591; 80053; 83735; 84100; 85007; 85027; 86850; 86900; 86901; P9035; P9038

== ENCOUNTER 2023-12-13 09:00 | Outpatient (RCR) | payer MEDICARE, SELFPAY ==
[2023-12-13 09:45] VITALS: BP 134/81; PULSE 85; TEMP 36.4; O2SAT 95
[2023-12-13 10:03] LABS: Hematocrit 30.4 % (36.0-48.0); Mean Corpuscular HGB Conc 32.9 g/dL (29.9-35.2); Mean Corpuscular Hemoglobin 26.6 pg (26.7-34.0); Mean Corpuscular Volume 80.9 fL (81.0-99.0); Red Blood Count 3.76 10^6/uL (4.20-5.40); Red Cell Distribution Width 16.6 % (11.0-15.0)
[2023-12-13 10:10] LABS: Platelet Count 20 10^3/uL (150-450); White Blood Count 0.2 10^3/uL (4.0-11.0)
[2023-12-13 10:36] LABS: Alanine Aminotransferase 97 U/L (14-59); Albumin Globulin Ratio 0.6; Albumin Level 2.4 g/dL (3.4-5.0); Alkaline Phosphatase 151 U/L (46-116); Anion Gap 15.3; Aspartate Amino Transferase 43 U/L (15-37); BUN Creatinine Ratio 15.2; Bilirubin Total 1.2 mg/dL (0.2-1.0); Calcium 8.9 mg/dL (8.5-10.1); Carbon Dioxide 24.9 mmol/L (21.0-32.0); Chloride 99 mmol/L (98-107); Estimated GFR (African America >60 (>=60); Estimated GFR (Non-African Ame >60 (>=60); Globulin 3.7 g/dL; Glucose 108 mg/dL (74-106); Lactate Dehydrogenase 215 U/L (81-234); Potassium 3.2 mmol/L (3.5-5.1); Sodium 136 mmol/L (136-145); Total Protein 6.1 g/dL (6.4-8.2); Uric Acid 2.4 mg/dL (2.6-6.0)
[2023-12-13 10:58] LABS: INR 1.06; Partial Thromboplastin Time 35.1 sec (22.3-36.2); Prothrombin Time 11.2 sec (9.0-11.6)
[2023-12-13 11:01] LABS: Fibrinogen 495 mg/dL (200-400)
[2023-12-13 11:04] LABS: Lymphocytes Absolute Manual 0.17 10^3/uL (1.20-3.80); Monocytes Absolute Manual 0.02 10^3/uL (0.30-0.80); Segmented Neut Absolute Manual 0.01 10^3/uL (1.4-6.5)
[2023-12-13 11:07] LABS: Anisocytosis 1+; Ovalocytes 1+
--- NOTE | 2023-12-13 11:52 | PC.NURSE ---
0945: Pt. to [facility] amb. with use of walker, accompanied by . Seated in recliner. VSS. Pt. with double lumen central line to right lower neck. Site without s&s of infection or infiltration. Blood drawn from line for ordered labs. Pt. given water and warm blankets.
--- NOTE | 2023-12-13 11:55 | PC.NURSE ---
1015: Critical labs called to MAMTA Hopper. Pt. notified of need for platelets only per physician order. Pt. given popsicles and water.
--- NOTE | 2023-12-13 11:57 | PC.NURSE ---
1100: Pt. drinking protein shake. Denies needs.
[2023-12-13] MEDS: DIPHENHYDRAMINE HCL 50 MG/ML (1ML) VIAL 25 MG IV (12:25)
[2023-12-13] MEDS: HYDROCORTISONE SODIUM SUCC PF 100 MG/2 ML VIAL 25 MG IV (12:26)
--- NOTE | 2023-12-13 12:36 | PC.NURSE ---
1225: Pt. resting quietly with eyes closed. Resps even, non-labored. Medicated with Benadryl and hydrocortisone IV as ordered. Pt. left undisturbed. Dr. Macdonald aware of pt. current potassium, new order obtained.
[2023-12-13] MEDS: POTASSIUM CHLORIDE 20 MEQ in 0.9 % SODIUM CHLORIDE 250 ML 130 MEQ IV (12:50)
--- NOTE | 2023-12-13 12:51 | PC.NURSE ---
1250: IV potassium infusion initiated at this time as ordered per Dr. Macdonald.
--- NOTE | 2023-12-13 13:40 | PC.NURSE ---
Resting off and on. Pt.without changes.
[2023-12-13 14:04] VITALS: BP 134/81; PULSE 85; TEMP 36.4; O2SAT 95
--- NOTE | 2023-12-13 14:21 | PC.NURSE ---
1411: 1 unit psoralen treated platelets initiated at this time. Assisted pt. up to bathroom. Voids Q.S. Returns to chair. Positioned for comfort.
[2023-12-13 14:25] VITALS: BP 160/71; PULSE 78; TEMP 36.6; O2SAT 94
--- NOTE | 2023-12-13 14:30 | PC.NURSE ---
1425: Pt. tolerating platelets without c/o. VSS.
[2023-12-13 15:11] VITALS: BP 148/54; PULSE 80; TEMP 36.6; O2SAT 94
[2023-12-13 15:35] VITALS: BP 152/83; PULSE 83; TEMP 36.9; O2SAT 95
--- NOTE | 2023-12-13 15:38 | PC.NURSE ---
1511: Pt. tolerating platelets without s&s of reaction. VSS. Pt. eating popsicles to help sooth sores in mouth.
--- NOTE | 2023-12-13 15:41 | PC.NURSE ---
1530: Platelet transfusion completed at this time without s&s of transfusion reaction. VSS. Central line flushed with saline. Caps applied too both ports. 1535: Pt. d/c'd via w/c to car and home with .
[2023-12-14 09:40] VITALS: BP 134/82; PULSE 83; TEMP 36.5; O2SAT 96
[2023-12-14 09:53] LABS: Hemoglobin 9.3 g/dL (12.0-16.0); Mean Corpuscular HGB Conc 33.2 g/dL (29.9-35.2); Mean Corpuscular Volume 81.2 fL (81.0-99.0); Red Blood Count 3.45 10^6/uL (4.20-5.40); Red Cell Distribution Width 16.8 % (11.0-15.0)
[2023-12-14 09:58] LABS: Platelet Count 14 10^3/uL (150-450); White Blood Count 0.2 10^3/uL (4.0-11.0)
[2023-12-14 10:07] LABS: Alanine Aminotransferase 74 U/L (14-59); Albumin Globulin Ratio 0.6; Albumin Level 2.2 g/dL (3.4-5.0); Alkaline Phosphatase 135 U/L (46-116); Anion Gap 15.1; Aspartate Amino Transferase 31 U/L (15-37); BUN Creatinine Ratio 12.9; Bilirubin Total 1.1 mg/dL (0.2-1.0); Calcium 8.6 mg/dL (8.5-10.1); Carbon Dioxide 23.9 mmol/L (21.0-32.0); Chloride 99 mmol/L (98-107); Estimated GFR (African America >60 (>=60); Estimated GFR (Non-African Ame >60 (>=60); Globulin 3.8 g/dL; Glucose 118 mg/dL (74-106); Lactate Dehydrogenase 202 U/L (81-234); Magnesium 1.4 mg/dL (1.8-2.4); Sodium 135 mmol/L (136-145)
[2023-12-14 10:49] LABS: INR 1.07; Prothrombin Time 11.3 sec (9.0-11.6)
[2023-12-14 10:51] LABS: D Dimer 3.41 mg/L FEU (<=0.59)
[2023-12-14 11:19] LABS: Atypical Lymphocytes Abs Man 0.08; Lymphocytes Absolute Manual 0.04 10^3/uL (1.20-3.80); Monocytes Absolute Manual 0.01 10^3/uL (0.30-0.80)
[2023-12-14 11:26] LABS: Anisocytosis 1+; Hypochromasia 1+
[2023-12-14 12:28] LABS: Fibrinogen 540 mg/dL (200-400)
[2023-12-14] MEDS: HYDROCORTISONE SODIUM SUCC PF 100 MG/2 ML VIAL 25 MG IV (12:34)
[2023-12-14] MEDS: DIPHENHYDRAMINE HCL 50 MG/ML (1ML) VIAL 12.5 MG IV (12:35)
[2023-12-14 13:06] VITALS: BP 134/82; PULSE 83; TEMP 36.3; O2SAT 96
[2023-12-14 13:25] VITALS: BP 136/73; PULSE 83; TEMP 36.6; O2SAT 94
[2023-12-14 14:10] VITALS: BP 142/70; PULSE 81; TEMP 36.7; O2SAT 93
[2023-12-14 14:30] VITALS: BP 146/78; PULSE 83; TEMP 36.7; O2SAT 96
--- NOTE | 2023-12-14 14:41 | PC.NURSE ---
0940: Pt. to [facility] amb. with use of walker. Seated in recliner. Relays c/o severe pain to mouth from scattered mouth sores. Taking Maalox and Benadryl solution and swishing in mouth several times daily with no relief. Right neck central line in place and without s&s of infection or infiltration. Line flushes easily and able to aspirate blood easily. Blood drawn for ordered labs. Using sterile technique, dressing to RIJ line changed with sterile CHG dressing re-applied. New caps applied. Tolerates without c/o.
--- NOTE | 2023-12-14 15:04 | PC.NURSE ---
1007: Critical lab results called to [facility]. Pt. notified of need for platelet transfusion per. ordered protocol. 1100: Pt. resting off and on with eyes closed. Appears comfortable and without s&s of distress. 1200: Pt. given popsicle. New prescription sent for oral mouth care. Pt. given instructions on use. Pt. and relay understanding. 1310: Psoralen treated platelet transfusion initiated at this time. 1325: VSS Pt. tolerating infusion without c/o.
--- NOTE | 2023-12-14 15:08 | PC.NURSE ---
1410: Pt. without c/o. Denies needs. VSS.
--- NOTE | 2023-12-14 15:16 | PC.NURSE ---
1425: Platelets completed at this time without adverse reaction. VSS. RIJ line flushed with saline. 1430: Pt. d/c'd amb. to home with .
--- NOTE | 2023-12-14 15:17 | PC.NURSE ---
1457: Potassium and magnesium lab results called to Dr. Macdonald. instructs this RN to have pt. return for IV magnesium and potassium infusions. Pt. called and relays she will return.
[2023-12-14 15:40] VITALS: BP 146/82; PULSE 80; TEMP 36.6; O2SAT 93
[2023-12-14] MEDS: POTASSIUM CHLORIDE 20 MEQ in 0.9 % SODIUM CHLORIDE 250 ML 130 MEQ IV (15:40)
[2023-12-14] MEDS: MAGNESIUM SULFATE IN WATER 2 GM/50 ML PREMIX IV (15:40)
--- NOTE | 2023-12-14 15:56 | PC.NURSE ---
1540: Pt. returns to [facility] for IV magnesium and potassium infusions. Seated in recliner. RIJ central line flushes easily with good blood return. Pt. placed on it telecom technician for potassium infusion. IV potassium and magnesium initiated as ordered. Pt. without c/o or needs. at chairside. Given warm blankets and water.
--- NOTE | 2023-12-14 16:05 | PC.NURSE ---
1605: Pt. tolerating infusions without c/o.
--- NOTE | 2023-12-14 16:48 | PC.NURSE ---
1640: Infusions completed at this time. Central line flushed with saline. Pt. without c/o. 1649: Pt. d/c'd via w/c to car and home with .
[2023-12-17] VITALS (9 sets, daily range): BP systolic 121–155; BP diastolic 77–88; PULSE 74–91; TEMP 36.2–36.8; O2SAT 92–98
[2023-12-17 09:30] LABS: Hematocrit 26.9 % (36.0-48.0); Hemoglobin 8.7 g/dL (12.0-16.0); Mean Corpuscular HGB Conc 32.3 g/dL (29.9-35.2); Mean Corpuscular Hemoglobin 26.5 pg (26.7-34.0); Red Blood Count 3.28 10^6/uL (4.20-5.40); Red Cell Distribution Width 16.8 % (11.0-15.0)
[2023-12-17 09:45] LABS: Platelet Count 3 10^3/uL (150-450); White Blood Count 0.1 10^3/uL (4.0-11.0)
[2023-12-17 09:51] LABS: Alanine Aminotransferase 71 U/L (14-59); Albumin Globulin Ratio 0.5; Alkaline Phosphatase 124 U/L (46-116); Anion Gap 16.9; Aspartate Amino Transferase 38 U/L (15-37); BUN Creatinine Ratio 11.1; Bilirubin Total 0.9 mg/dL (0.2-1.0); Calcium 8.6 mg/dL (8.5-10.1); Carbon Dioxide 22.7 mmol/L (21.0-32.0); Chloride 96 mmol/L (98-107); Estimated GFR (African America >60 (>=60); Estimated GFR (Non-African Ame >60 (>=60); Glucose 138 mg/dL (74-106); Lactate Dehydrogenase 173 U/L (81-234); Magnesium 1.5 mg/dL (1.8-2.4); Phosphorus 3.8 mg/dL (2.6-4.7); Potassium 3.6 mmol/L (3.5-5.1); Sodium 132 mmol/L (136-145); Uric Acid 1.7 mg/dL (2.6-6.0)
[2023-12-17 10:25] LABS: Prothrombin Time 11.6 sec (9.0-11.6)
[2023-12-17 10:27] LABS: D Dimer 2.76 mg/L FEU (<=0.59); Partial Thromboplastin Time 40.3 sec (22.3-36.2)
[2023-12-17 10:48] LABS: Fibrinogen 560 mg/dL (200-400)
[2023-12-17] MEDS: ACETAMINOPHEN 325 MG TABLET 650 MG PO (11:10)
[2023-12-17 11:15] LABS: Lymphocytes Absolute Manual 0.07 10^3/uL (1.20-3.80); Monocytes Absolute Manual 0.02 10^3/uL (0.30-0.80)
[2023-12-17 11:16] LABS: Anisocytosis 1+
[2023-12-17] MEDS: 0.9 % SODIUM CHLORIDE 250 ML 10 ML IV (11:17)
[2023-12-17] MEDS: DIPHENHYDRAMINE HCL 50 MG/ML (1ML) VIAL 12.5 MG IV (11:17)
[2023-12-17] MEDS: HYDROCORTISONE SODIUM SUCC PF 100 MG/2 ML VIAL 25 MG IV (11:17)
--- NOTE | 2023-12-17 11:52 | PC.NURSE ---
0900: Pt. to [facility] amb. accompanied by . Weight obtained. Seated in recliner. VSS. Pt very depressed and somber today. Relays c/o severe pain with mouth sores. Using magic mouth wash for comfort. Right ant. neck central line in place and without s&s of infection or infiltration. Flushes easily with good blood return. Blood obtained for labs. Pt. made comfortable with blankets and pillows. Fluid provided.
--- NOTE | 2023-12-17 12:36 | PC.NURSE ---
0944: Critical lab results phoned vamshi Reich tech. 0946: Lauryn Pereira CNP from Nica Eric NP of Dr. Dangelo. Notified of platelet counts, mouth sores, and other lab results. New order received. Pt. and patient's notified of conversation with DALILA Pereira. Relayed pt. to receive PRBC and 2 units of Platelets today.
--- NOTE | 2023-12-17 12:56 | PC.NURSE ---
1115: 1 unit PRBC initiated at this time after pre-transfusion vitals obtained. 1130: Pt tolerated infusion without c/o. Denies new c/o or needs.
--- NOTE | 2023-12-17 13:10 | PC.NURSE ---
1240: PRBC infusion completed at this time without s&s of adverse reaction. VSS. 1307: 1 unit Psoralen treated platelet initiated at this time. Pt. drinking fluids. at chairside.
--- NOTE | 2023-12-17 15:01 | PC.NURSE ---
1440: First unit platelets completed without adverse reaction. VSS. 1455: Second unit platelets initiated at this time. Encouraged pt. to drink protein drinks after numbing mouth with viscous lidocaine. Pt. relays understanding.
--- NOTE | 2023-12-17 15:09 | PC.NURSE ---
1509: Pt. tolerating platelets without c/o. VSS. Report given to Alexander Lamar RN.
--- NOTE | 2023-12-17 17:34 | PC.NURSE ---
1555: Resting quietly with eyes closed intermittently. No distress noted. at bedside. 1625: Second unit of platelets infused;flush given. Tolerated well. Swab caps applied to dual lumen central line to right neck. Denies discomfort at this time. Discharged via wheelchair to private vehicle at 1645 with in attendance. No distress apparent.
== END 2024-01-01 23:59 | disposition home or self-care (01) ==
LOC: INF 09:00
PROVIDERS: PCP Family Medicine; Visit Provider Internal Medicine Hematology & Oncology
DX: C92.00 Acute myeloblastic leukemia, not having achieved remission (principal); C92.92 Myeloid leukemia, unspecified in relapse; D61.818 Other pancytopenia; R11.2 Nausea with vomiting, unspecified
CPT/HCPCS: 36415; 36430; 36591; 80053; 83615; 83735; 84100; 84550; 85007; 85027; 85378; 85384; 85610; 85730; 86850; 86900; 86901; 96365; 96367; 96368; 96374; 96375; J1720; J3480; P9035; P9038

== ENCOUNTER 2023-12-18 08:27 | Emergency (ER) | payer MEDICARE, SELFPAY ==
[2023-12-18] VITALS (58 sets, daily range): BP systolic 144–168; BP diastolic 80–96; PULSE 66–85; TEMP 36.6; O2SAT 86–99; BMI 35.2
--- NOTE | 2023-12-18 08:50 | ECG_ITS ---
The [facility] Test Date: 2023-12-18 Pat Name: NABIL THOMPSON Department: Room: - Gender: Female Gate Clerk: : 1955 Requested By: Melissa Sultana Order Number: [id number] Reading MD: PAL WILSON Measurements Intervals [place] Rate: 79 P: -30 CT: 204 QRS: -30 QRSD: 94 T: 18 QT: 380 QTc: 414 Interpretive Statements [address]/T wave changes, can't exclude anteroseptal ischemia 9150 abnormal ECG Electronically Signed On 12-18-2023 23:09:01 EDT by PAL WILSON
--- NOTE | 2023-12-18 08:51 | ED.ABDPAIN1 ---
HPI - Abdominal Pain General Chief Complaint: Abdominal Pain Stated Complaint: ABDOMINAL PAIN Time Seen by Provider: 12/18/23 08:38 Source: patient and family Mode of arrival: Wheelchair Limitations: no limitations History of Present Illness HPI narrative: 68-year-old female presents for generalized abdominal pain which began about 3 hours ago and it is continuous. She has been nauseous. No diarrhea or fever. She states she is never had pain like this before. Related Data Home Medications ?Medication ?Instructions ?Recorded ?Confirmed bupropion HCl 75 mg tablet 75 mg PO TID 05/03/23 10/15/23 omeprazole 20 mg capsule,delayed 20 mg PO DAILY 05/03/23 10/15/23 release acyclovir 400 mg tablet 400 mg PO BID 05/25/23 10/15/23 levofloxacin 500 mg tablet 500 mg PO DAILY 06/18/23 10/15/23 olanzapine 2.5 mg tablet 2.5 mg PO .QHS 06/18/23 10/15/23 posaconazole 100 mg tablet,delayed 300 mg PO DAILY 06/18/23 10/15/23 release (Noxafil) ondansetron 4 mg disintegrating 4 mg PO Q6H PRN nausea and vomiting 07/11/23 10/15/23 tablet magnesium hydroxide 400 mg/5 mL 15 ml PO DAILY PRN constipation 10/01/23 10/15/23 oral suspension (Milk of Magnesia) sennosides 8.6 mg-docusate sodium 1 tab-cap PO DAILY 10/01/23 10/15/23 50 mg tablet (Senna-S) Previous Rx's ?Medication ?Instructions ?Recorded cefdinir 300 mg capsule 300 mg PO BID 12 days #24 caps 10/04/23 Allergies Allergy/AdvReac Type Severity Reaction Status Date / Time hydrocodone [From Vicodin] AdvReac Verified 12/18/23 08:38 Review of Systems ROS Narrative A ten point review of systems is negative except as noted above. [facility] Medical History (Updated 12/18/23 @ 13:37 by Jay Hendricks MD) Colitis ?K52.9 - Noninfective gastroenteritis and colitis, unspecified (ICD-10) Generalized pain ?R52 - Pain, unspecified (ICD-10) Thrombocytopenia ?D69.6 - Thrombocytopenia, unspecified (ICD-10) Anemia ?D64.9 - Anemia, unspecified (ICD-10) Pancytopenia ?D61.818 - Other pancytopenia (ICD-10) GERD (gastroesophageal reflux disease) ?K21.9 - Gastro-esophageal reflux disease without esophagitis (ICD-10) Depression ?F32.A - Depression, unspecified (ICD-10) History of blood transfusion ?Z92.89 - Personal history of other medical treatment (ICD-10) 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 - Intraductal carcinoma in situ of left breast (ICD-10) Myeloid leukemia ?C92.90 - Myeloid leukemia, unspecified, not having achieved remission (ICD-10) Symptomatic anemia ?D64.9 - Anemia, unspecified (ICD-10) Surgical History History of bone marrow biopsy ?Z98.890 - Other specified postprocedural states (ICD-10) S/P excision of lipoma ?Z98.890 - Other specified postprocedural states (ICD-10) ?Z86.018 - Personal history of other benign neoplasm (ICD-10) History of hysterectomy ?Z90.710 - Acquired absence of both cervix and uterus (ICD-10) Family History Father Family history of cancer Family history of hypertension Mother Family history of hypertension Grandfather Family history of cancer Grandmother Family history of cancer Aunt Family history of cancer Social History Within the past year, how often did you have a drink containing alcohol: monthly or less Within the past year, how many standard drinks containing alcohol did you have on a typical day: 1 or 2 Total score: 0 Score interpretation: A score less than 3 is consistent with normal alcohol consumption. Smoking status: Never smoker Do you think of yourself as: straight/heterosexual Gender Identity: female Exam Narrative Exam Narrative: Nurses note and vital signs reviewed and patient is not hypoxic. General: The patient appears uncomfortable and in no apparent distress. Skin: Warm, dry, no pallor noted. There is no rash noted. Head: Normocephalic, atraumatic Eye: Normal conjunctiva, no drainage Ears, Nose, Mouth, and Throat: oral mucosa is moist. Nares patent. Cardiovascular: Regular Rate and Rhythm Respiratory: Patient is in no distress, no accessory muscle use, lungs are clear to auscultation, no wheezing, rales or rhonchi Back: non-tender GI: Mild diffuse tenderness without distention Musculoskeletal: The patient has no evidence of calf tenderness, no pitting edema, symmetrical pulses noted bilaterally Neurological: A&O, normal speech Psychiatric: Cooperative Constitutional Vital Signs, click to edit/add: Last Vital Signs Temp 97.8 F 12/18/23 08:38 Pulse 72 12/18/23 12:10 Resp 26 H 12/18/23 12:10 BP 144/81 H 12/18/23 12:00 Pulse Ox 97 12/18/23 12:10 O2 Del Method Room Air 12/18/23 09:12 O2 Flow Rate 2 12/18/23 10:33 Course Vital Signs Vital signs: Vital Signs Temperature 97.8 F 12/18/23 08:38 Pulse Rate 72 12/18/23 08:38 Respiratory Rate 20 12/18/23 08:38 Blood Pressure 162/93 H 12/18/23 08:38 Pulse Oximetry 96 12/18/23 08:38 Oxygen Delivery Method Room Air 12/18/23 08:38 Temperature 97.8 F 12/18/23 08:38 Pulse Rate 72 12/18/23 12:10 Respiratory Rate 26 H 12/18/23 12:10 Blood Pressure 144/81 H 12/18/23 12:00 Pulse Oximetry 97 12/18/23 12:10 Oxygen Delivery Method Room Air 12/18/23 09:12 Oxygen Delivery Flow Rate 2 12/18/23 10:33 MDM - Abdominal Pain MDM Narrative Medical decision making narrative: Patient workup indicates that she has acute cholecystitis. WBC is 0.2. She was given IV Zosyn. Case discussed with Dr. Samuels who suggest that the patient should be transferred. Case discussed with Dr. Macdonald and I have spoken to general surgery and heme-onc at the [facility] and the patient is excepted there. Findings are discussed thoroughly with the patient and her . She is agreeable and stable for transfer. Differential Diagnosis Differential diagnosis: Likely abdominal pain, calculus of kidney, constipation, diverticulitis, gastroenteritis, pancreatitis, small bowel obstruction and other (Acute cholecystitis, colitis) Lab Data Attestation: I reviewed the patient's lab results. Labs: Lab Results 12/18/23 12/18/23 Range/Units 08:49 11:35 WBC 0.2 L* (4.0-11.0) 10^3/uL RBC 3.42 L (4.20-5.40) 10^6/uL Hgb 9.4 L (12.0-16.0) g/dL Hct 28.0 L (36.0-48.0) % MCV 81.9 (81.0-99.0) fL MCH 27.5 (26.7-34.0) pg MCHC 33.6 (29.9-35.2) g/dL RDW 16.1 H (11.0-15.0) % Plt Count 23 L* (150-450) 10^3/uL MPV 10.3 (9.5-13.5) fL Seg Neuts % (Manual) 0.0 Lymphocytes % (Manual) 70.0 H (20.5-60.0) % Atypical Lymphs % (Man) 20.0 % Monocytes % (Manual) 10.0 (1.7-12.0) % Eosinophils % (Manual) 0.0 L (0.9-7.0) % Basophils % (Manual) 0.0 L (0.2-2.0) % Neutrophils # (Manual) 0.00 L (1.4-6.5) 10^3/uL Lymphocytes # (Manual) 0.14 L (1.20-3.80) 10^3/uL Abs Atypical Lymphs Man 0.04 Monocytes # (Manual) 0.02 L (0.30-0.80) 10^3/uL Eosinophils # (Manual) 0.00 (0.00-0.70) 10^3/uL Basophils # (Manual) 0.00 (0.00-0.10) 10^3/uL Hypochromasia 1+ Anisocytosis 1+ Sodium 135 L (136-145) mmol/L Potassium 3.1 L (3.5-5.1) mmol/L Chloride 99 (98-107) mmol/L Carbon Dioxide 22.5 (21.0-32.0) mmol/L Anion Gap 16.6 BUN 10.0 (7.0-18.0) mg/dL Creatinine 0.58 (0.55-1.02) mg/dL Est GFR ( Amer) >60 (>=60) Est GFR (Non-Af Amer) >60 (>=60) BUN/Creatinine Ratio 17.2 Glucose 113 H (74-106) mg/dL Calcium 8.5 (8.5-10.1) mg/dL Total Bilirubin 1.1 H (0.2-1.0) mg/dL Direct Bilirubin 0.5 H (0.0-0.2) mg/dL AST 38 H (15-37) U/L ALT 66 H (14-59) U/L Alkaline Phosphatase 112 (46-116) U/L Total Protein 6.0 L (6.4-8.2) g/dL Albumin 2.0 L (3.4-5.0) g/dL Globulin 4.0 g/dL Albumin/Globulin Ratio 0.5 Amylase 24 L (25-115) U/L Lipase 50.0 (16.0-77.0) U/L Urine Color Yellow (YELLOW) Urine Clarity Clear (CLEAR) Urine pH 6.5 (5.0-9.0) Ur Specific [place] 1.010 (1.005-1.025) Urine Protein Negative (NEG/TRACE) mg/dL Urine Glucose (UA) Negative (NEGATIVE) mg/dL Urine Ketones 15 A (NEGATIVE) mg/dL Urine Occult Blood Negative (NEGATIVE) Urine Nitrite Negative (NEGATIVE) Urine Bilirubin Negative (NEGATIVE) Urine Urobilinogen 0.2 (0.2-1.0) EU/dL Ur Leukocyte Esterase Negative (NEGATIVE) Urine RBC None seen (0-2) #/HPF Urine WBC 0-2 A (NONE SEEN) #/HPF Ur Squamous Epith Cells Moderate A (NONE/RARE) #/LPF Urine Crystals None seen (None Seen) #/HPF Urine Bacteria Trace A (NONE SEEN) #/HPF Urine Casts None seen (NONE SEEN) #/LPF Urine Mucus None seen (NONE SEEN) Imaging Data CT scan - abdomen: Radiologist's impression: ITS Impressions Abdomen/Pelvis CT 12/18/23 09:35 IMPRESSION: 1. Left-sided colitis. 2. Distended gallbladder stones and adjacent stranding of fat concerning for acute cholecystitis. Electronically authenticated by: ERIC GLOVER Date: 12/18/2023 10:30 Upper Quadrant Ultrasound 04/16/24 10:37 IMPRESSION: Mild thickening of a portion of the fundal gallbladder wall with underlying cholelithiasis and gallbladder sludge. Consider acute cholecystitis. If clinically necessary, hepatobiliary scan could be performed to determine function Electronically authenticated by: MEGHAN HERBERT Date: 12/18/2023 11:13 Discharge Plan Discharge Chief Complaint: Abdominal Pain Clinical Impression: Acute cholecystitis Patient Disposition: [facility] Time of Disposition Decision: 13:37 Discharge Location: [facility] Condition: Good Mode of Transportation: EMS
[2023-12-18] MEDS: ONDANSETRON PF 4 MG/2 ML VIAL IV ×2 (08:59→16:51)
[2023-12-18] MEDS: 0.9 % SODIUM CHLORIDE 1,000 ML 1000 ML IV (08:59)
[2023-12-18] MEDS: MORPHINE SULFATE 4 MG/ML VIAL IV ×2 (08:59→10:07)
[2023-12-18 09:05] LABS: Hemoglobin 9.4 g/dL (12.0-16.0); Mean Corpuscular HGB Conc 33.6 g/dL (29.9-35.2); Mean Corpuscular Hemoglobin 27.5 pg (26.7-34.0); Mean Corpuscular Volume 81.9 fL (81.0-99.0); Mean Platelet Volume 10.3 fL (9.5-13.5); Red Blood Count 3.42 10^6/uL (4.20-5.40); Red Cell Distribution Width 16.1 % (11.0-15.0)
[2023-12-18 09:09] LABS: White Blood Count 0.2 10^3/uL (4.0-11.0)
[2023-12-18 09:10] LABS: Platelet Count 23 10^3/uL (150-450)
[2023-12-18 09:28] LABS: Alanine Aminotransferase 66 U/L (14-59); Albumin Globulin Ratio 0.5; Alkaline Phosphatase 112 U/L (46-116); Amylase 24 U/L (25-115); Anion Gap 16.6; Aspartate Amino Transferase 38 U/L (15-37); BUN Creatinine Ratio 17.2; Bilirubin Direct 0.5 mg/dL (0.0-0.2); Bilirubin Total 1.1 mg/dL (0.2-1.0); Calcium 8.5 mg/dL (8.5-10.1); Carbon Dioxide 22.5 mmol/L (21.0-32.0); Chloride 99 mmol/L (98-107); Estimated GFR (African America >60 (>=60); Estimated GFR (Non-African Ame >60 (>=60); Glucose 113 mg/dL (74-106); Potassium 3.1 mmol/L (3.5-5.1); Sodium 135 mmol/L (136-145)
--- NOTE | 2023-12-18 09:35 | CT_ITS ---
The [address] [address] Patient Name: NABIL THOMPSON MRN: [id number] date: 1955 Sex: F Assigned Patient Location: ER Current Patient Location: ER Accession/Order Number: [id number] Exam Date: 12/18/2023 09:49 Report Date: 12/18/2023 10:30 At the request of: SHERMAN PUCKETT Procedure: CT abdomen pelvis w con EXAM: CT abdomen pelvis w con HISTORY: Diffuse abdominal pain COMPARISON: CT abdomen and pelvis 07/11/2023. TECHNIQUE: Joel intravenous administration of 99 cc of Omnipaque 300, axial soft tissue windows of the abdomen and pelvis were performed with coronal and sagittal reformats. CT dose reduction technique was used including Automated Exposure Control. Findings: Mild bilateral lower lung atelectasis. ABDOMEN: Stable hepatic cysts. The gallbladder is distended and contains stones. There is mild adjacent stranding of the fat. Mild intrahepatic biliary ductal dilatation. The spleen, pancreas, and adrenal glands are unremarkable. Mild nonspecific bilateral perinephric fat stranding. Nonobstructing bilateral renal stones. No renal collecting system dilatation. There is mild excretion of contrast into the collecting system. The visualized portions of the bilateral ureters are nondilated. Evaluation of the bowel is limited given the absence of oral contrast. There are colonic diverticula. There is wall thickening with adjacent stranding of the fat extending from the splenic flexure distally through the descending colon. No bowel obstruction. The appendix is nondilated. The aorta is normal caliber. No enlarged abdominal lymph nodes or free abdominal fluid. Pelvis: Unremarkable bladder. The uterus is surgically absent. No enlarged pelvic lymph nodes or free pelvic fluid. No aggressive sclerotic or lytic osseous lesions. Grade 1 anterolisthesis of L4 on L5. CT/CT abdomen pelvis w con IMPRESSION: 1. Left-sided colitis. 2. Distended gallbladder stones and adjacent stranding of fat concerning for acute cholecystitis. Electronically authenticated by: ERIC GLOVER Date: 12/18/2023 10:30
[2023-12-18 10:32] LABS: Atypical Lymphocytes Abs Man 0.04; Lymphocytes Absolute Manual 0.14 10^3/uL (1.20-3.80); Monocytes Absolute Manual 0.02 10^3/uL (0.30-0.80)
[2023-12-18 10:33] LABS: Anisocytosis 1+; Hypochromasia 1+
--- NOTE | 2023-12-18 10:37 | US_ITS ---
The [address] [address] Patient Name: NABIL THOMPSON MRN: [id number] date: 1955 Sex: F Assigned Patient Location: ER Current Patient Location: ER Accession/Order Number: [id number] Exam Date: 12/18/2023 10:38 Report Date: 12/18/2023 11:13 At the request of: SHERMAN PUCKETT Procedure: US right upper quadrant EXAM: US right upper quadrant HISTORY: Abnormal CAT scan COMPARISON: CT exam same day TECHNIQUE: Grayscale and color ultrasound FINDINGS: The liver is normal in size, contour and echotexture. No focal mass. Hepatopedal flow in the main portal vein with velocity of 49 cm/s The gallbladder wall is thickened along the fundus measuring up to 4 mm. Multiple echogenic foci and heterogeneous echoes within the gallbladder lumen likely combination of sludge and cholelithiasis Negative sonographic Brandt sign. The common bile duct measures 4.3 mm. The visualized pancreas is normal The right kidney is normal measuring 10.4 x 5.8 x 5.9 cm. No free fluid US/US right upper quadrant IMPRESSION: Mild thickening of a portion of the fundal gallbladder wall with underlying cholelithiasis and gallbladder sludge. Consider acute cholecystitis. If clinically necessary, hepatobiliary scan could be performed to determine function Electronically authenticated by: MEGHAN HERBERT Date: 12/18/2023 11:13
[2023-12-18] MEDS: 0.9 % SODIUM CHLORIDE 1,000 ML 100 ML IV (11:10)
[2023-12-18] MEDS: HYDROMORPHONE HCL 1 MG/ML CARTRIDGE IV ×2 (11:21→16:51)
[2023-12-18 11:46] LABS: Bilirubin Urine NEGATIVE (NEGATIVE); Blood Urine NEGATIVE (NEGATIVE); Clarity Urine CLEAR (CLEAR); Color Urine YELLOW (YELLOW); Glucose Urine UA NEGATIVE (NEGATIVE); Ketones Urine 15 mg/dL (NEGATIVE); Leukocyte Esterase Urine NEGATIVE (NEGATIVE); Nitrite Urine NEGATIVE (NEGATIVE); Protein Urine NEGATIVE (NEG/TRACE); Urobilinogen Urine 0.2 EU/dL (0.2-1.0); pH Urine 6.5 (5.0-9.0)
[2023-12-18 12:15] LABS: Bacteria Urine TRACE #/HPF (NONE SEEN); Cast Seen? NONE SEEN #/LPF (NONE SEEN); Crystals Seen? None Seen #/HPF (None Seen); Mucus Urine NONE SEEN (NONE SEEN); RBC Urine NONE SEEN #/HPF (0-2); Squamous Epithelial Cell Urine MODERATE #/LPF (NONE/RARE); WBC Urine 0-2 #/HPF (NONE SEEN)
[2023-12-18] MEDS: PIPERACILLIN SODIUM/TAZOBACTAM 3.375 GM in 0.9 % SODIUM CHLORIDE 50 ML IV (12:26)
== END 2023-12-18 17:27 | disposition short-term general hospital (02) ==
PROVIDERS: Emergency Provider Emergency Medicine; PCP Family Medicine
DX: K81.0 Acute cholecystitis (principal); K21.9 Gastro-esophageal reflux disease without esophagitis; F32.A Depression, unspecified; C92.90 Myeloid leukemia, unspecified, not having achieved remission; D05.12 Intraductal carcinoma in situ of left breast; Z79.899 Other long term (current) drug therapy; Z98.890 Other specified postprocedural states; Z90.710 Acquired absence of both cervix and uterus
CPT/HCPCS: 36415; 36569; 36592; 74177; 76705; 80048; 80076; 81001; 82150; 83690; 85007; 85027; 93005; 96365; 96375; 96376; 99285; J1170; Q9967